=== PATIENT | male | born 1960 | race Caucasian/White ===

== ENCOUNTER 2021-05-31 14:44 | Inpatient (IN) ==
[2021-05-31 15:53] LABS: Basophils # (auto) 0.08 K/uL (0-0.2); Basophils % (auto) 0.7 %; Eosinophils # (auto) 0.14 K/uL (0-0.5); Eosinophils % (auto) 1.3 %; Hemoglobin 10.9 g/dL (14.0-18.0); Immature Granulocytes # (auto) 0.03 K/uL (0.00-0.02); Immature Granulocytes % (auto) 0.3 %; Lymphocytes # (auto) 2.91 K/uL (1.2-3.4); Lymphocytes % (auto) 26.5 %; Mean Corpuscular Hemoglobin 31.5 pg (25-34); Mean Corpuscular Volume 95.4 fL (80-100); Mean Platelet Volume 8.5 fL (7.4-10.4); Monocytes # (auto) 0.66 K/uL (0.11-0.59); Neutrophils # (auto) 7.15 K/uL (1.4-6.5); Neutrophils % (auto) 65.2 %; Platelet Count 268 K/uL (130-400); RDW Coefficient of Variation 16.8 % (11.5-14.5); RDW Standard Deviation 58.5 fL (36.4-46.3); Red Blood Count 3.46 M/uL (4.7-6.1); White Blood Count 10.97 K/uL (4.8-10.8)
[2021-05-31 15:58] LABS: Appearance Urine Clear (Clear); Bacteria Urine Automated Negative (Negative); Bilirubin Urine Negative (Negative); Blood Urine Negative (Negative); Color Urine Yellow; Glucose Urine UA 3+ (Negative); Ketones Urine Negative (Negative); Leukocyte Esterase Urine Trace (Negative); Nitrite Urine Negative (Negative); Protein Urine Negative (Negative); RBC Urine Automated 0-4 /hpf (0-4); Urobilinogen Urine Negative (Negative); pH Urine 5.5 (4.5-7.5)
[2021-05-31 16:12] LABS: Albumin Level 3.7 gm/dl (3.4-5.0); BUN Creatinine Ratio 10.3 (10-20); Calcium 8.3 mg/dl (8.5-10.1); Creatinine Clr Calc Pharmacy 17.2 ml/min; Est GFR (African American) 17.2 ml/min; Est GFR (Non-African American) 14.9 ml/min; Potassium 4.5 mmol/L (3.5-5.1)
[2021-05-31 16:15] LABS: Albumin Globulin Ratio 1.1 (0.9-2); Bilirubin,Total 0.2 mg/dl (0.2-1); Globulin 3.3 gm/dl (2.5-4.0)
[2021-05-31] MEDS ORDERED: SODIUM CHLORIDE 0.9% 1000ML 2,000 ML IV ONE (17:26)
--- NOTE | 2021-05-31 17:30 | Emergency Department Note ---
Impression & Plan Acute renal failure, BPH with obstruction/lower urinary tract symptoms, Urinary tract obstruction, Metabolic acidosis ED Provider Note NAME: MARÍA ELENA VIRGEN AGE: 60 SEX: M : 1960 ARRIVES VIA: Walk-In INFORMANT: Patient ED PROVIDER(S): Oren Laguna DO CHIEF COMPLAINT: abnormal labs HPI: Patient is a 60-year-old gentleman who presents to the ER for urinary symptoms which have been intermittent since this past December. He denies any headache or change in vision. No chest pain or shortness of breath. No nausea, vomiting, or diarrhea. No dysuria, urgency, frequency. He notes he has been drinking maybe less than usual and has been eating less than usual. No excessive diarrhea. He was seen evaluated by his PCP had a creatinine of nearly 4 and was referred in after a CT which showed a large dilated bladder. ROS: See above HPI for pertinent positives & negatives. A total of 10 systems reviewed and were otherwise negative. PAST MEDICAL HISTORY:See Below PAST SURGICAL HISTORY:See Below FAMILY HISTORY:See Below SOCIAL HISTORY:See Below HOME MEDICATIONS:See Below ALLERGIES:See Below VITALS:See Below PHYSICAL EXAMINATION: GENERAL: Sitting up in bed, alert, chronically ill-appearing, disheveled EYE EXAM: normal conjunctiva. PERRL and EOM's grossly intact. OROPHARYNX: no exudate, no erythema, lips, buccal mucosa, and tongue normal and mucous membranes are moist NECK: supple, no nuchal rigidity, no adenopathy, non-tender LUNGS: Clear to auscultation. Normal chest wall mechanics HEART: no murmurs, S1 normal and S2 normal ABDOMEN: abdomen soft, non-tender, normo-active bowel sounds, no masses, no rebound or guarding. UPPER EXTREMITIES: upper extremities are grossly normal. LOWER EXTREMITIES: No pitting edema. NEURO EXAM: Normal sensorium, cranial nerves II-XII grossly intact, normal speech, no gross weakness of arms, no gross weakness of legs. MEDICAL DECISION MAKING: Patient is a 60-year-old male who presents the ER for abnormal CT of the abdomen pelvis showing bilateral hydronephrosis and hydroureter with distended bladder. IV was established blood work was obtained. Labs show no significant leukocytosis and mild anemia at 10. BMP with a creatinine of 4 and a CO2 of 17. Baseline creatinine was 1. Lactate was up at 2.2. LFTs bilirubin and lipase was 650. UA was clean. CT abdomen pelvis report was reviewed by myself. Velasquez was placed. Large amount of urine was removed. Patient was given IV fluids and updated bedside discussed with the hospitalist admitted for CARLA likely secondary to BPH. Triage Nursing notes reviewed. Limited review of prior medical records performed Vital Signs: reviewed and remarkable for tachy Differential diagnosis: Differential diagnoses includes but is not limited to gastritis, peptic ulcer disease, GERD, gallbladder disease, pancreatitis, small bowel obstruction, acute coronary syndrome, pericarditis, ischemic bowel, irritable bowel disease, irritable bowel syndrome, appendicitis, diverticulitis, malignancy, hernia, urinary tract infection, torsion, [/ectopic (if female)], perforation, trauma, infectious. ER treatment provided: See below Diagnostics interpreted by me: ECG: none Cardiac Monitoring: An order was placed for continuous cardiac monitoring. The monitor shows a rate of 101 with sinus rhythm. Laboratory studies: As stated above and show below. Imaging studies: CT reviewed from [facility] which showed large dilated and distended bladder with hydroureter Consultation(s): Discussed with patient hospital service Procedures: none Critical Care: None Past Med/Surg History Medical History (Updated 05/31/21 @ 21:30 by Oern Laguna DO) BPH with obstruction/lower urinary tract symptoms Chronic systolic heart failure DM2 (diabetes mellitus, type 2) HLD (hyperlipidemia) HTN (hypertension) PAD (peripheral artery disease) Prostate cancer screening Suspected malignant neoplasm Tobacco abuse Surgical History (Updated 05/31/21 @ 21:12 by Marj Zimmer PA-C) History of left common carotid artery stent placement Family History Other Diabetes Heart disease Hypertension Social History Smoking Status: Current every day smoker Tobacco Type: Cigarettes packs per day: 0.5; Hx Alcohol Use: Yes Alcohol type: beer and hard liquor Alcohol Intake Frequency: Monthly or Less Hx Substance Use: No Preferred Language: Guatemalan Current Living Situation: Spouse Feels Safe at Home: Yes Allergies Allergies Allergy/AdvReac Type Severity Reaction Status Date / Time codeine AdvReac Intermediate Gastrointestinal Unverified 05/31/21 18:09 Upset Home Meds Home Medications Medication Instructions Recorded Confirmed atorvastatin 80 mg tablet 80 mg PO HS 04/23/19 05/31/21 sildenafil 50 mg tablet 60 mg PO DAILY PRN 04/23/19 05/31/21 clopidogrel 75 mg tablet 75 mg PO QAM 01/17/21 05/31/21 sacubitril 24 mg-valsartan 26 mg 1 tab PO BID 01/17/21 05/31/21 tablet (Entresto) tizanidine 2 mg capsule 2 mg PO Q8H PRN 01/17/21 05/31/21 trazodone 100 mg tablet 300 mg PO HS PRN 01/17/21 05/31/21 alfuzosin 10 mg tablet,extended 10 mg PO QAM 05/31/21 05/31/21 release 24 hr (Uroxatral) bicalutamide 50 mg tablet (Casodex) 50 mg PO QAM 05/31/21 05/31/21 diphenhydramine 25 1 tab PO TID PRN 05/31/21 05/31/21 mg-acetaminophen 500 mg tablet (Tylenol PM Extra Strength) empagliflozin 25 mg tablet 25 mg PO QAM 05/31/21 05/31/21 (Jardiance) metformin 500 mg tablet,extended 1,000 mg PO UD 05/31/21 05/31/21 release 24 hr Results & Data (ED) Vital Signs Vital Signs - 24 hr 05/31/21 15:06 Temperature 37 C Temperature Source Temporal Artery Scan Pulse Rate 105 H Respiratory Rate 18 Respiratory Effort / Characteristics Non-Labored Spontaneous Respiratory Depth Normal Respiratory Pattern Regular Blood Pressure 112/73 Blood Pressure Mean 86 Blood Pressure Position Sitting Pulse Oximetry 100 Oxygen Delivery Method Room Air Sepsis Recent Fever Within 48 Hours No Sepsis New/Unexplained Change in Mental Status N/A Sepsis Action Taken by Nursing No Action Required Laboratory Data Result diagrams: 05/31/21 15:40 05/31/21 15:40 Lab Results 05/31/21 05/31/21 05/31/21 Range/Units 15:30 15:40 15:40 WBC 10.97 H (4.8-10.8) K/uL RBC 3.46 L (4.7-6.1) M/uL Hgb 10.9 L (14.0-18.0) g/dL Hct 33.0 L (42-52) % MCV 95.4 (80-100) fL MCH 31.5 (25-34) pg MCHC 33.0 (32-36) g/dL RDW Std Deviation 58.5 H (36.4-46.3) fL RDW Coeff of Clara 16.8 H (11.5-14.5) % Plt Count 268 (130-400) K/uL MPV 8.5 (7.4-10.4) fL Immature Gran % (Auto) 0.3 % Neut % (Auto) 65.2 % Lymph % (Auto) 26.5 % Titus % (Auto) 6.0 % Eos % (Auto) 1.3 % Baso % (Auto) 0.7 % Neut # (Auto) 7.15 H (1.4-6.5) K/uL Lymph # (Auto) 2.91 (1.2-3.4) K/uL Titus # (Auto) 0.66 H (0.11-0.59) K/uL Eos # (Auto) 0.14 (0-0.5) K/uL Baso # (Auto) 0.08 (0-0.2) K/uL Immature Gran # (Auto) 0.03 H (0.00-0.02) K/uL Sodium 139 (136-145) mmol/L Potassium 4.5 (3.5-5.1) mmol/L Chloride 115 H (98-107) mmol/L Carbon Dioxide 17 L (21-32) mmol/L Anion Gap 8.0 (3-11) BUN 42 H (7-18) mg/dl Creatinine 4.06 H (0.6-1.4) mg/dl Est Cr Clr Drug Dosing 17.2 ml/min Est GFR ( Amer) 17.2 ml/min Est GFR (Non-Af Amer) 14.9 ml/min BUN/Creatinine Ratio 10.3 (10-20) Glucose 111 H (70-99) mg/dl Calcium 8.3 L (8.5-10.1) mg/dl Total Bilirubin 0.2 (0.2-1) mg/dl AST 13 L (15-37) U/L ALT 26 (12-78) U/L Alkaline Phosphatase 94 (45-117) U/L Total Protein 7.0 (6.4-8.2) gm/dl Albumin 3.7 (3.4-5.0) gm/dl Globulin 3.3 (2.5-4.0) gm/dl Albumin/Globulin Ratio 1.1 (0.9-2) Lipase 656 H (73-393) U/L Urine Color Yellow Urine Appearance Clear (Clear) Urine pH 5.5 (4.5-7.5) Ur Specific [place] 1.010 (1.000-1.030) Urine Protein Negative (Negative) Urine Glucose (UA) 3+ H (Negative) Urine Ketones Negative (Negative) Urine Blood Negative (Negative) Urine Nitrite Negative (Negative) Urine Bilirubin Negative (Negative) Urine Urobilinogen Negative (Negative) Ur Leukocyte Esterase Trace H (Negative) Urine WBC (Auto) 5-10 H (0-5) /hpf Urine RBC (Auto) 0-4 (0-4) /hpf U Hyaline Cast (Auto) 1-5 (0-5) /lpf U Epithel Cells (Auto) 5-10 H (0-5) /lpf Urine Bacteria (Auto) Negative (Negative) COVID-19 Eval Order SARS-CoV-2 (PCR) (Negative) 05/31/21 05/31/21 Range/Units 17:40 17:40 WBC (4.8-10.8) K/uL RBC (4.7-6.1) M/uL Hgb (14.0-18.0) g/dL Hct (42-52) % MCV (80-100) fL MCH (25-34) pg MCHC (32-36) g/dL RDW Std Deviation (36.4-46.3) fL RDW Coeff of Clara (11.5-14.5) % Plt Count (130-400) K/uL MPV (7.4-10.4) fL Immature Gran % (Auto) % Neut % (Auto) % Lymph % (Auto) % [place]itus % (Auto) % Eos % (Auto) % Baso % (Auto) % Neut # (Auto) (1.4-6.5) K/uL Lymph # (Auto) (1.2-3.4) K/uL Titus # (Auto) (0.11-0.59) K/uL Eos # (Auto) (0-0.5) K/uL Baso # (Auto) (0-0.2) K/uL Immature Gran # (Auto) (0.00-0.02) K/uL Sodium (136-145) mmol/L Potassium (3.5-5.1) mmol/L Chloride (98-107) mmol/L Carbon Dioxide (21-32) mmol/L Anion Gap (3-11) BUN (7-18) mg/dl Creatinine (0.6-1.4) mg/dl Est Cr Clr Drug Dosing ml/min Est GFR ( Amer) ml/min Est GFR (Non-Af Amer) ml/min BUN/Creatinine Ratio (10-20) Glucose (70-99) mg/dl Calcium (8.5-10.1) mg/dl Total Bilirubin (0.2-1) mg/dl AST (15-37) U/L ALT (12-78) U/L Alkaline Phosphatase (45-117) U/L Total Protein (6.4-8.2) gm/dl Albumin (3.4-5.0) gm/dl Globulin (2.5-4.0) gm/dl Albumin/Globulin Ratio (0.9-2) Lipase (73-393) U/L Urine Color Urine Appearance (Clear) Urine pH (4.5-7.5) Ur Specific [place] (1.000-1.030) Urine Protein (Negative) Urine Glucose (UA) (Negative) Urine Ketones (Negative) Urine Blood (Negative) Urine Nitrite (Negative) Urine Bilirubin (Negative) Urine Urobilinogen (Negative) Ur Leukocyte Esterase (Negative) Urine WBC (Auto) (0-5) /hpf Urine RBC (Auto) (0-4) /hpf U Hyaline Cast (Auto) (0-5) /lpf U Epithel Cells (Auto) (0-5) /lpf Urine Bacteria (Auto) (Negative) COVID-19 Eval Order Covid19 at [facility] SARS-CoV-2 (PCR) NEGATIVE (Negative) Administered Medications Heparin Sodium (Porcine) (Heparin Sod 5,000 Unit/0.5 Ml Vial) 5,000 units SQ Q8 GENIA Stop: 06/30/21 21:59 Last Admin: 05/31/21 21:26 Dose: Not Given Documented by: [id number] Insulin Aspart (Insulin Aspart 100 Units/Ml 3 Ml Pen) 0 units SC ACHS GENIA Stop: 06/30/21 20:59 Last Admin: 05/31/21 21:26 Dose: Not Given Documented by: [id number] Morphine Sulfate (Morphine Sulfate 4 Mg/Ml 1 Ml Carp\Vial) 3 mg IV Q4H PRN PRN Reason: Pain Stop: 06/14/21 20:47 Last Admin: 05/31/21 21:26 Dose: 3 mg Documented by: [id number] Discontinued Medications Sodium Chloride (Nss 1000ml) 2,000 mls @ 999 mls/hr IV .Q2H1M ONE Stop: 05/31/21 19:26 Last Infusion: 05/31/21 19:33 Dose: 0 mls/hr Documented by: [id number] Admin: 05/31/21 18:26 Dose: 999 mls/hr Documented by: [id number] Morphine Sulfate (Morphine Sulfate 4 Mg/Ml 1 Ml Carp\Vial) 4 mg IV NOW STA Stop: 05/31/21 18:26 Last Admin: 05/31/21 18:35 Dose: 4 mg Documented by: [id number] Ondansetron HCl (Ondansetron Inj 2 Mg/Ml 2 Ml Vial) 4 mg IV NOW STA Stop: 05/31/21 18:26 Last Admin: 05/31/21 18:36 Dose: 4 mg Documented by: [id number] Discharge Plan Visit Data Chief Complaint: Abnormal Labs/Diagnostic Testing Stated Complaint: ABNORMAL LABS, DR REFERRED ED Provider: Oren Laguna Discharge Problem: Acute renal failure, BPH with obstruction/lower urinary tract symptoms, Urinary tract obstruction, Metabolic acidosis Patient Disposition: Admitted As Inpatient Discharge Instructions Interventions: ED Discharge Assessment Last Done: 05/31/21 20:33 Discharge Problem: Acute renal failure Qualifiers: Acute renal failure type: unspecified Qualified Code(s): N17.9 - Acute kidney failure, unspecified
--- NOTE | 2021-05-31 17:58 | History & Physical Report ---
Date of Service May 31, 2021 Assessment & Plan (1) Suspected malignant neoplasm: (2) Urinary tract obstruction: (3) Acute renal failure: Plan: This is a 60 yo M with PHM of Type 2 diabetes, PAD, L carotid stent placement at [facility] December 2020, chronic systolic heart failure, CKD 3, hypertension, BPH, tobacco use, history of CVA, insomnia and other medical problems listed below who presents with abnormal lab work and imaging from PCP. Recently established with Dr. Novak of urology at [facility] for elevated PSA MRI from this month revealed extensive tumor throughout the prostate gland with findings worrisome for extraprostatic extension to involve the bladder, anterior pelvic wall and seminal vesicles, as well as skeletal metastases Started on bicalutamide and is due for biopsy in July when he is okayed by vascular surgery to come off of plavix for procedure CT abd/pelvis wo con from [facility] earlier today with urinary bladder very distended nearly to the level of the umbilicus, with at least moderate bilateral hydroureteronephrosis, right worse than left Rain catheter placed in ED - draining mckeon red urine UA without evidence of infection Cr elevated at 4 in setting of obstruction (baseline ~ 1) Repeat BMP this evening Urology consulted Consider nephro consult if Cr does not improve with rain in place (4) Elevated lipase: Plan: Lipase 656 Chronic pancreatitis visualized on outpatient CT a/p No N/V or abdominal pain, monitor (5) Elevated lactic acid level: Plan: Lactate 2.2 in setting of urinary obstruction, now with rain in place, has received IV fluids Metformin may also be contributing Repeat pending Mild leukocytosis but UA without abnormality, no evidence of infection on CT abd/pelvis, CXR pending (6) Metabolic acidosis: Plan: In setting of acute renal failure, elevated lactate Expect improvement with rain catheter in place, IV fluids Bicarb 17 Monitor daily BMP (7) DM2 (diabetes mellitus, type 2): Plan: A1c 6.7 in March Hold home agents SSI while in-patient BSG AC HS (8) Chronic systolic heart failure: Plan: History of ischemic CM with EF 30%, improved to 43% on November 2020 echo Not on home diuretics Monitor volume status (9) HTN (hypertension): Plan: Reported low BP lately, instructed to hold metoprolol for now BP elevated in setting of pain - optimize pain control Resume metoprolol with hold parameters (10) HLD (hyperlipidemia): Plan: Continue statin (11) Tobacco abuse: Plan: Cessation recommended DVT Ppx: Holding in setting of hematuria - reassess H&H in AM Code status: FULL PCP: Catrina Dispo: Admitted to [facility] Patient seen in collaboration with Dr. Chong. Please see addendum. History of Present Illness Chief Complaint: Bladder fullness, abnormal CAT scan outpatient setting Primary Care Provider: Dru Fritz MD This is a 60 yo M with PHM of Type 2 diabetes, PAD, L carotid stent placement at [facility] December 2020, chronic systolic heart failure, CKD 3, hypertension, BPH, tobacco use, history of CVA, insomnia and other medical problems listed below who presents with abnormal lab work and imaging from PCP. Patient has had ongoing urinary symptoms since December. Established with Dr. Novak of urology at [facility] for elevated PSA and MRI from this month revealed extensive tumor throughout the prostate gland with findings worrisome for extraprostatic extension to involve the bladder, anterior pelvic wall and seminal vesicles, as well as skeletal metastases. Started on bicalutamide and is due for biopsy in July when he is okayed by vascular surgery to come off of plavix for procedure. Had L carotid stent placed in December 2020. Endorses weight loss, poor appetite, urinary incontinence. Denies fever, chills, lighthe adedness, headache, chest pain, SOB, nausea, vomiting, abdominal pain, dysuria, diarrhea or constipation. Allergies Allergy/AdvReac Type Severity Reaction Status Date / Time codeine AdvReac Intermediate Gastrointestinal Unverified 05/31/21 18:09 Upset Home Medications Medication Instructions Recorded Confirmed Type atorvastatin 80 mg tablet 80 mg PO HS 04/23/19 05/31/21 History sildenafil 50 mg tablet 60 mg PO DAILY PRN 04/23/19 05/31/21 History clopidogrel 75 mg tablet 75 mg PO QAM 01/17/21 05/31/21 History sacubitril 24 mg-valsartan 26 mg 1 tab PO BID 01/17/21 05/31/21 History tablet (Entresto) tizanidine 2 mg capsule 2 mg PO Q8H PRN 01/17/21 05/31/21 History trazodone 100 mg tablet 300 mg PO HS PRN 01/17/21 05/31/21 History alfuzosin 10 mg tablet,extended 10 mg PO QAM 05/31/21 05/31/21 History release 24 hr (Uroxatral) bicalutamide 50 mg tablet (Casodex) 50 mg PO QAM 05/31/21 05/31/21 History diphenhydramine 25 1 tab PO TID PRN 05/31/21 05/31/21 History mg-acetaminophen 500 mg tablet (Tylenol PM Extra Strength) empagliflozin 25 mg tablet 25 mg PO QAM 05/31/21 05/31/21 History (Jardiance) metformin 500 mg tablet,extended 1,000 mg PO UD 05/31/21 05/31/21 History release 24 hr metoprolol succinate 25 mg 25 mg PO DAILY 05/31/21 05/31/21 History tablet,extended release 24 hr Past Med/Surg History Medical History BPH with obstruction/lower urinary tract symptoms Chronic systolic heart failure DM2 (diabetes mellitus, type 2) HLD (hyperlipidemia) HTN (hypertension) PAD (peripheral artery disease) Prostate cancer screening Suspected malignant neoplasm Tobacco abuse Surgical History History of left common carotid artery stent placement Family History Other Diabetes Heart disease Hypertension Social History Smoking Status: Current every day smoker Tobacco Type: Cigarettes packs per day: 0.5; Cigarettes Per Day: 8; Do You Dip or Chew Tobacco: No; Tobacco Cessation Education Requested by Patient: No Hx Alcohol Use: Yes Alcohol type: beer and hard liquor Alcohol Intake Frequency: Monthly or Less Hx Substance Use: No Preferred Language: Romansh Communication Ability: Effective Messenger Office Required: No Beliefs That Will Affect Care: None Current Living Situation: Spouse Other Information That Helps Us Care for You: No Feels Safe at Home: Yes Safety Concerns: Feels Safe At This Time Review of Systems Review of Systems: At least ten systems reviewed and negative except as noted in the HPI. Physical Exam Physical Exam: Please see Dr. Chong's addendum for physical exam. Results & Data Results & Data ([facility]) Vital Signs (Past 12 Hours) Vital Signs Temp Pulse Resp BP Pulse Ox 05/31/21 15:06 37 C 105 H 18 112/73 100 Laboratory Results Short CBC 05/31/21 Range/Units 15:40 WBC 10.97 H (4.8-10.8) K/uL Hgb 10.9 L (14.0-18.0) g/dL Hct 33.0 L (42-52) % Plt Count 268 (130-400) K/uL BMP 05/31/21 15:40 Sodium 139 Potassium 4.5 Chloride 115 H Carbon Dioxide 17 L BUN 42 H Creatinine 4.06 H Glucose 111 H Calcium 8.3 L Liver Function 05/31/21 Range/Units 15:40 Total Bilirubin 0.2 (0.2-1) mg/dl AST 13 L (15-37) U/L ALT 26 (12-78) U/L Alkaline Phosphatase 94 (45-117) U/L Albumin 3.7 (3.4-5.0) gm/dl Urine 05/31/21 05/31/21 Range/Units 15:30 Unknown Urine Color Yellow Yellow Urine Appearance Clear Clear (Clear) Urine pH 5.5 5.5 (4.5-7.5) Ur Specific [place] 1.010 1.010 (1.000-1.030) Urine Protein Negative Negative (Negative) Urine Glucose (UA) 3+ H 2+ H (Negative) Code Status & VTE Plan VTE Prophylaxis Plan VTE Prophylaxis will be ordered: Yes Supervising Physician Co-Signing Physician Notes I saw this patient with the physician administrative assistant coordinator, I participated in the history, physical, review of systems, and physical exam. I reviewed the medications with the patient and the physician administrative assistant coordinator and helped reconcile the medications. I helped take a detailed family and social history as well. I formulated the assessment and plan personally with the physician administrative assistant coordinator and went over it with the patient. Physical Exam Gen-AAO x 3, NAD, Afebrile, +BRB in rain Head-NCAT, EOMI, PERRLA, Anicteric Sclera, No Posterior Pharyngeal Erythema Neck-Supple, No JVD, No Thyromegaly, No Masses, No LAD, No Bruits Lungs-Clear to Auscultation Bilaterally, No Rales, No Rhonchi, No Wheezing, No Crepitus Chest-No S4, +S1, +S2, No S3, No Murmurs, No Rubs, No Gallops, No Ectopy Abdomen-Soft, Bowel Sounds Present, Tender, Non Distended, No Hepatomegaly, No Splenomegaly, No Palpable Masses, No Rebound, No Rigidity, No Guarding Musculoskeletal-Full Range of Motion Bilaterally, No CVAT Extremities-No Cyanosis, No Clubbing, No Edema Nuero-Cranial Nerves II-XII grossly intact, Motor WNL, DTRs WNL, Strength WNL, Non Focal Psych-Normal Mood
[2021-05-31] MEDS ORDERED: MoRPHine SULFATE 4 MG/ML 1 ML CARP\\VIAL IV STA (18:25)
[2021-05-31] MEDS ORDERED: ONDANSETRON INJ 2 MG/ML 2 ML VIAL IV STA (18:25)
[2021-05-31] MEDS ORDERED: ACETAMINOPHEN 500 MG TAB PO PRN (19:37)
[2021-05-31 20:02] LABS: Appearance Urine Clear (Clear); Bacteria Urine Automated Negative (Negative); Bilirubin Urine Negative (Negative); Blood Urine Trace (Negative); Color Urine Yellow; Glucose Urine UA 2+ (Negative); Ketones Urine Negative (Negative); Leukocyte Esterase Urine Trace (Negative); Nitrite Urine Negative (Negative); Protein Urine Negative (Negative); RBC Urine Automated 0-4 /hpf (0-4); Urobilinogen Urine Negative (Negative); pH Urine 5.5 (4.5-7.5)
[2021-05-31] MEDS ORDERED: ONDANSETRON INJ 2 MG/ML 2 ML VIAL IV PRN (20:48)
[2021-05-31] MEDS ORDERED: DEXTROSE 50% 50 ML SYRINGE IV PRN (20:48)
[2021-05-31] MEDS ORDERED: CARBOHYDRATES FOR HYPOGLYCEMIA PO PRN (20:48)
[2021-05-31] MEDS ORDERED: POLYETHYLENE (MIRALAX) 17 GM PACK PO PRN (20:48)
[2021-05-31] MEDS ORDERED: GLUCOSE 10 TABS/TUBE PO PRN (20:48)
[2021-05-31] MEDS ORDERED: GLUCAGON FOR INJ 1 MG VIAL SQ PRN (20:48)
[2021-05-31] MEDS ORDERED: ACETAMINOPHEN 325 MG TAB PO PRN (20:48)
[2021-05-31] MEDS ORDERED: GLUCOSE 40% GEL 15 GM TUBE PO PRN (20:48)
[2021-05-31] MEDS: INSULIN ASPART 100 UNITS/ML 3 ML PEN SC SCH (21:26)
[2021-05-31] MEDS: MoRPHine SULFATE 4 MG/ML 1 ML CARP\\VIAL IV PRN (21:26)
--- NOTE | 2021-05-31 21:59 | Urology Consultation ---
Date of Consultation May 31, 2021 Assessment & Plan (1) Urinary tract obstruction: Patient has been admitted on the hospitalist service: Based on patient's history I suspect the patient's elevated creatinine may be due to bladder outlet obstruction from an enlarged prostate. His hematuria may be due to traumatic Velasquez insertion as well as a venous injury from a distended bladder in the setting of Plavix use. Recommend maintaining Velasquez catheter. As long as Velasquez remains patent and draining no additional intervention such as continuous bladder irrigation will be required Recommended following serial CBCs to ensure there is not a precipitous drop in his H&H Recommend following serial chemistries to ensure he does not develop hyperkalemia or other electrolyte abnormalities and to monitor his renal function Recommend hydrating the patient with IV fluids Discussed with the patient that it may be beneficial for him to just maintain the Velasquez catheter to be discharged home once his renal function improves and he can follow-up with his regular urologist as an outpatient History of Present Illness Reason for Consultation: 1. Urinary retention 2. enlarged bladder 3. Hematuria Attending Physician: Rob Chong DO History of Present Illness This is a 60-year-old male with a suspected history of prostate cancer that was referred to [facility] emergency department secondary to abnormal labs. Patient notes that he has an enlarged prostate and previous scans showed findings concerning for prostate cancer. Patient says he was scheduled to have a CT scan of his abdomen and pelvis today to further evaluate this. In anticipation for getting a CT scan he had to have labs drawn where he was noted to have an abnormal creatinine of approximately 4. To the best of patient's knowledge he feels as though his creatinine usually runs normal. He does note that he did have an episode of acute kidney injury in the past secondary to poor oral intake. Patient notes that he has had urinary difficulties for several months dating back to at least December of this year. The patient notes that he typically sits down to urinate and he notes in order to initiate urination he has to push on his abdomen. He does note that the stream of his urine is weak. He also notes some urinary hesitancy. He does feel as though he empties his bladder completely but does add that shortly after urinating he feels as though he has to go again in a short time. He also notes nocturia requiring him to urinate several times during the night and he often notes urinary incontinence at night requiring him to wear adult briefs. He was seen in the past by Dr. Henderson [facility] urology for the symptoms. His most recent visit was in December of this year patient was started on Flomax as well as Myrbetriq. Patient notes that he has since changed his urologist to Dr. Isaías Novak who is now with [facility] urology. During his establishment with Dr. Novak the patient was noted to have an elevated PSA and he ultimately underwent an MRI earlier this month that revealed reported extensive tumor burden throughout the prostate glands with findings concerning for spread into the bladder, anterior pelvic wall, seminal vesicles, as well as adjacent skeletal structures. The patient was started on bicalutamide for these findings. Tentative plans were made for patient have a prostate biopsy however the patient has in the interim suffered a stroke for which he underwent a carotid stent placement in December. Because of this carotid stent the patient takes Plavix and he cannot discontinue this therapy for 6 months which would lead to July. Patient does note that plans are tentatively in place for him to have a prostate biopsy in July of this year. Should be noted that all the patient's imaging and labs were done to the [facility] system which I did not have access to. Upon presentation to the emergency department [facility] he did have a CBC where his white blood cell count was noted to be 10.9. His hemoglobin and hematocrit were 10.9 and 33.0 and his platelet count was within normal range. Chemistry profile did show a sodium and potassium both which were normal. His BUN and creatinine were both elevated at 42 and 4.0. It is noteworthy mention that the patient did have a PSA level from November 2020 which was elevated at 11.7. A chest x-ray performed in the emergency department today did not reveal any evidence of pneumonia, CHF, or pleural effusions. Since arrival to the emergency department the patient has had a Velasquez catheter placed. Unfortunately accurate I's and O's were not recorded but the patient does note that he feels approximately 1 L of clear urine was initially drained and he has subsequently has had mckeon colored hematuria. At the time of interview he was in no distress resting comfortably in bed. Allergies Allergy/AdvReac Type Severity Reaction Status Date / Time codeine AdvReac Intermediate Gastrointestinal Unverified 05/31/21 18:09 Upset Home Medications Medication Instructions Recorded Confirmed Type atorvastatin 80 mg tablet 80 mg PO HS 04/23/19 05/31/21 History sildenafil 50 mg tablet 60 mg PO DAILY PRN 04/23/19 05/31/21 History clopidogrel 75 mg tablet 75 mg PO QAM 01/17/21 05/31/21 History sacubitril 24 mg-valsartan 26 mg 1 tab PO BID 01/17/21 05/31/21 History tablet (Entresto) tizanidine 2 mg capsule 2 mg PO Q8H PRN 01/17/21 05/31/21 History trazodone 100 mg tablet 300 mg PO HS PRN 01/17/21 05/31/21 History alfuzosin 10 mg tablet,extended 10 mg PO QAM 05/31/21 05/31/21 History release 24 hr (Uroxatral) bicalutamide 50 mg tablet (Casodex) 50 mg PO QAM 05/31/21 05/31/21 History diphenhydramine 25 1 tab PO TID PRN 05/31/21 05/31/21 History mg-acetaminophen 500 mg tablet (Tylenol PM Extra Strength) empagliflozin 25 mg tablet 25 mg PO QAM 05/31/21 05/31/21 History (Jardiance) metformin 500 mg tablet,extended 1,000 mg PO UD 05/31/21 05/31/21 History release 24 hr Patient History Medical History BPH with obstruction/lower urinary tract symptoms Chronic systolic heart failure DM2 (diabetes mellitus, type 2) HLD (hyperlipidemia) HTN (hypertension) PAD (peripheral artery disease) Prostate cancer screening Suspected malignant neoplasm Tobacco abuse Surgical History History of left common carotid artery stent placement Family History Other Diabetes Heart disease Hypertension Social History Smoking Status: Current every day smoker Tobacco Type: Cigarettes packs per day: 0.5; Hx Alcohol Use: Yes Alcohol type: beer and hard liquor Alcohol Intake Frequency: Monthly or Less Hx Substance Use: No Preferred Language: Jamaican Current Living Situation: Spouse Feels Safe at Home: Yes Review of Systems Constitutional: no fever and no chills Eyes: no diplopia Ear, Nose, Mouth, Throat: no ear pain and no sore throat Respiratory: no cough and no dyspnea Cardiovascular: no chest pain Gastrointestinal: no abdominal pain, no nausea and no vomiting Genitourinary: + as per Subjective / HPI Musculoskeletal: no back pain Integumentary: no rash Neurologic: no generalized weakness Physical Exam Constitutional: well developed and well nourished; no acute distress Eyes: no conjunctival abnormality ENMT: Ears: no hearing impairment Mouth: no oropharynx abnormality Neck: trachea midline Respiratory: normal respiratory effort; no respiratory distress and no labored breathing Cardiovascular: Rate/Rhythm: regular rate and regular rhythm Gastrointestinal (Abdomen): Soft and nontender Musculoskeletal: No gross orthopedic abnormalities, no calf tenderness Skin: no rashes Neurologic: moves all extremities Psychiatric: A+Ox3, euthymic affect Genitourinary: Velasquez catheter was in place and draining red-colored urine Results & Data ([facility]) Vital Signs (Past 12 Hours) Vital Signs Temp Pulse Pulse Resp BP BP Pulse Ox 05/31/21 19:26 112 H 18 182/104 H 100 05/31/21 18:39 122 H 18 98 05/31/21 15:06 37 C 105 H 18 112/73 100 PG Care Time/CCT Total # of Minutes Spent Total Time Spent with Patient: Total time spent is greater than 50% in coordination of care (as documented) at patient's floor/unit and/or counseling patient: Coding Level of Care Code 00800 Inpt Consult Level 5 Diagnoses Urinary tract obstruction N13.9
[2021-05-31] MEDS ORDERED: HEPARIN SOD 5,000 UNIT/0.5 ML VIAL SQ SCH (22:00)
[2021-05-31 22:08] LABS: BUN Creatinine Ratio 10.7 (10-20); Calcium 8.1 mg/dl (8.5-10.1); Est GFR (African American) 18.1 ml/min; Est GFR (Non-African American) 15.7 ml/min; Potassium 4.3 mmol/L (3.5-5.1)
[2021-05-31] MEDS ORDERED: SODIUM CHLORIDE 0.9% 1000ML 1,000 ML IV SCH (22:30)
[2021-05-31] MEDS ORDERED: tiZANidine HCL 4 MG TABLET PO PRN (22:33)
[2021-05-31 22:49] LABS: Hematocrit (blood only) 30.9 % (42-52); Hemoglobin 10.2 g/dL (14.0-18.0)
[2021-06-01] MEDS: ACETAMINOPHEN 500 MG TAB PO PRN ×2 (00:11→22:03)
[2021-06-01] MEDS: traZODone HCL 100 MG TAB PO PRN ×2 (00:11→22:03)
[2021-06-01] MEDS ORDERED: traMADol HCL 50 MG TABLET PO PRN (01:57)
[2021-06-01] MEDS ORDERED: traMADol HCL 50 MG TABLET PO STA (01:57)
[2021-06-01] MEDS ORDERED: ALBUMIN 25% 12.5 GM/50 ML VIAL IV SCH ×2 (02:00→07:00)
[2021-06-01] MEDS ORDERED: LACTATED RINGER'S 1,000 ML IV ONE ×2 (02:05→07:00)
[2021-06-01 05:50] LABS: Hematocrit (blood only) 29.9 % (42-52); Hemoglobin 9.8 g/dL (14.0-18.0); Mean Corpuscular Hemoglobin 31.7 pg (25-34); Mean Corpuscular Hgb Conc 32.8 g/dL (32-36); Mean Corpuscular Volume 96.8 fL (80-100); Mean Platelet Volume 8.2 fL (7.4-10.4); Platelet Count 258 K/uL (130-400); RDW Coefficient of Variation 16.9 % (11.5-14.5); RDW Standard Deviation 60.2 fL (36.4-46.3); Red Blood Count 3.09 M/uL (4.7-6.1); White Blood Count 12.71 K/uL (4.8-10.8)
[2021-06-01] MEDS: METOPROLOL SUCC 25MG EXT REL TAB PO SCH ×2 (06:00→06:22)
[2021-06-01] MEDS: MoRPHine SULFATE 4 MG/ML 1 ML CARP\\VIAL IV PRN ×4 (06:00→20:33)
[2021-06-01 06:14] LABS: BUN Creatinine Ratio 10.4 (10-20); Calcium 8.2 mg/dl (8.5-10.1); Creatinine Clr Calc Pharmacy 17.9 ml/min; Est GFR (African American) 18.9 ml/min; Est GFR (Non-African American) 16.3 ml/min; Potassium 4.5 mmol/L (3.5-5.1)
--- NOTE | 2021-06-01 07:19 | XRay Report ---
XR chest 1V portable CLINICAL HISTORY: admission COMPARISON STUDY: May 15, 2016 FINDINGS: No pneumothorax. No pleural effusion. No large infiltrates or consolidative lesions are seen. Focal ill-defined opacity seen within left lower lung region. There is questionable lucency within the epigastric region which represent superimposed gas-filled l oops of bowel and gas within the stomach and was better seen during CT of abdomen and pelvis performe d on May 31, 2021 at 2:01 PM Cardiomediastinal silhouette is within normal limits in size. No significant pulmonary vascular congestion.. Osseous structures: Mild degenerative changes of the spine. IMPRESSION: 1. Focal ill-defined opacity within the left lower lung region might represent nipple shadow versus intrapulmonary lesion. Similar appearance was seen on prior study in 2016. Further evaluation with PA and lateral chest radiograph with nipple markers on nonemergency basis is suggested. ACT 112: Negative or not required by law. The above report was generated using voice recognition software. It may contain grammatical, syntax o r spelling errors. Electronically signed by: Leyla Bustamante DO 06/01/2021 7:18 AM
--- NOTE | 2021-06-01 08:30 | Urology Progress Note ---
Date of Service June 01, 2021 Assessment & Plan (1) Urinary tract obstruction: (2) Acute urinary retention: Plan: 60 year-old male patient, with multiple comorbidities, admitted with acute renal failure likely in the setting of dehydration and urinary obstruction. -Plan of care reviewed with Dr. Epps. -Patient afebrile. -Labs reviewed - white count 12.71, creatinine remains elevated however improved at 3.76 (4.06 on admission). -Urinalysis not suspicious for infection. -Gross hematuria likely secondary to catheter trauma/Plavix use. -May hand-irrigate rain catheter PRN retention or suprapubic pain. -Continue with supportive care, lab monitoring. -Regarding suspected prostate cancer, he does have upcoming bone scan and follow-up with oncology scheduled. Plans for prostate biopsy in July with Dr. Isaías Novak, [facility]. -Recommend maintaining rain catheter for at least 7-10 days depending on clinical progress. Can reassess once discharge and seen by [facility]. -Expected clinical course reviewed with patient, all questions answered. -Urology will sign off at this time. Please reconsult us with any additional questions/concerns or acute changes in patient's clinical status. Admission and Anticipated Discharge Date Admission Date: May 31, 2021 Subjective Patient examined at bedside this AM. He is awake, alert, non-toxic in appearance. Currently denies flank pain. Does note generalized discomfort to lower abdomen which is improving. Denies fevers or chills. Denies nausea or vomiting. Rain catheter intact, draining mckeon colored urine - adequate output overnight. States there was difficulty with catheter placement. States he did not experience hematuria until after catheter was placed. Regarding suspected prostate cancer, he does have upcoming bone scan 06/13/21. He also has appointment with [facility], Dr. Queen, 06/09/21. Per patient, prostate biopsy is planned with Dr. Isaías Novak on 07/06/21. Chart review: Afebrile Wbc 12.71 Hgb 9.8 (previously 10.2) Creatinine 3.76 (4.06 on admission) Denies additional urologic concerns today. Review of Systems Constitutional: as per Subjective / HPI; no fever and no chills Gastrointestinal: as per Subjective / HPI; no nausea and no vomiting Genitourinary: + as per Subjective / HPI Physical Exam Constitutional: well developed and well nourished; no acute distress and not ill appearing Respiratory: normal respiratory effort and able to speak in complete sentences; no respiratory distress and no audible wheezes Gastrointestinal (Abdomen): Inspection/Auscultation: abdomen normal to inspection; abdomen not distended Percussion/Palpation: abdomen soft; abdomen nontender and no guarding Psychiatric: Orientation: alert, oriented x 3 and cooperative Affect: euthymic affect Genitourinary: no CVA tenderness Rain catheter intact, patent, draining mckeon colored urine. Results & Data ([facility]) Vital Signs (Past 12 Hours) Vital Signs Temp Pulse Pulse Resp BP BP Pulse Ox 06/01/21 08:08 91 H 06/01/21 07:48 36.6 C 84 18 121/75 99 06/01/21 06:23 122/74 06/01/21 03:23 36.1 C L 118 H 20 179/87 H 99 06/01/21 00:00 120 H 05/31/21 22:39 36.4 C L 120 H 18 124/84 99 05/31/21 20:55 36.8 C 120 H 22 184/115 H 100 05/31/21 20:47 36.4 C L 146 H 18 157/109 H 100 PG Care Time/CCT Total # of Minutes Spent Total Time Spent with Patient: Total time spent is greater than 50% in coordination of care (as documented) at patient's floor/unit and/or counseling patient: Coding Level of Care Code 24211 Subseq Hosp Care Lvl 2 Diagnoses Urinary tract obstruction N13.9 Acute urinary retention R33.8
[2021-06-01] MEDS ORDERED: METOPROLOL SUCC 25MG EXT REL TAB PO SCH (09:00)
[2021-06-01] MEDS ORDERED: CLOPIDOGREL BISULFATE 75 MG TAB PO SCH (09:00)
[2021-06-01] MEDS ORDERED: SACUBITRIL-VALSARTAN 24-26 MG TAB PO SCH (09:00)
[2021-06-01] MEDS: BICALUTAMIDE 50 MG TAB PO SCH (09:02)
[2021-06-01] MEDS: ALFUZOSIN HCL 10 MG TAB PO SCH (09:02)
[2021-06-01] MEDS: INSULIN ASPART 100 UNITS/ML 3 ML PEN SC SCH ×4 (09:03→20:37)
[2021-06-01 14:14] LABS: Hematocrit (blood only) 26.5 % (42-52); Hemoglobin 8.8 g/dL (14.0-18.0)
--- NOTE | 2021-06-01 14:15 | Hospitalist Progress Note ---
Date of Service June 01, 2021 Assessment & Plan (1) Suspected malignant neoplasm: (2) Urinary tract obstruction: (3) Acute renal failure: Plan: per admitting service notes This is a 60 yo M with PHM of Type 2 diabetes, PAD, L carotid stent placement at [facility] December 2020, chronic systolic heart failure, CKD 3, hypertension, BPH, tobacco use, history of CVA, insomnia and other medical problems listed below who presents with abnormal lab work and imaging from PCP. Prostate Tumor Obstructive Uropathy Acute Renal failure, with Metabolic Acidosis Recently established with Dr. Novak of urology at [facility] for elevated PSA MRI from this month revealed extensive tumor throughout the prostate gland with findings worrisome for extraprostatic extension to involve the bladder, anterior pelvic wall and seminal vesicles, as well as skeletal metastases Started on bicalutamide and is due for biopsy in July when he is okayed by vascular surgery to come off of plavix for procedure CT abd/pelvis wo con from [facility] earlier today with urinary bladder very distended nearly to the level of the umbilicus, with at least moderate bilateral hydroureteronephrosis, right worse than left Rain catheter placed in ED - draining mckeon red urine UA without evidence of infection Cr elevated at 4 in setting of obstruction (baseline ~ 1) 06/01 still with blood tinged urine output in Rain hg 10.9 to 9.8 repeat Hg at 2pm Crea 4 to 3.7 HCO3 16 Nephro consulted continue LR (4) Elevated lipase: Plan: Lipase 656 Chronic pancreatitis visualized on outpatient CT a/p No N/V or abdominal pain, monitor (5) Elevated lactic acid level: Plan: Lactate 2.2 in setting of urinary obstruction, now with rain in place, has received IV fluids Metformin may also be contributing normalized -- no signs of infection (6) Metabolic acidosis: Plan: management per above (7) DM2 (diabetes mellitus, type 2): Plan: A1c 6.7 in March Hold home agents SSI while in-patient BSG AC HS (8) Chronic systolic heart failure: Plan: History of ischemic CM with EF 30%, improved to 43% on November 2020 echo Not on home diuretics -- euvolemic monitor (9) HTN (hypertension): Plan: Reported low BP lately, instructed to hold metoprolol for now BP elevated in setting of pain - optimize pain control metoprolol with hold parameters (10) HLD (hyperlipidemia): Plan: Continue statin (11) Tobacco abuse: Plan: Cessation recommended DVT Ppx: SCDs for now in setting of hematuria Code status: FULL PCP: [facility]rina Dispo: anticipate d/c home when medically stable Admission and Anticipated Discharge Date Admission Date: May 31, 2021 Subjective ff up for obstructive uropathy, prostate tumor, etc seen resting in bed, comfortable states he feels ok overall denies pain no chest pain, dyspnea, palpitations, dizziness no nausea, vomiting no other symptoms Review of Systems Review of Systems: all noted and negative except for above Physical Exam Physical Exam: General- oriented x 3, not in distress, speaks in sentences with no effort or accessory muscle use Head- atraumatic Eyes- PERRL, EOMI, anicteric ENT- oropharynx clear Neck- supple, no JVD, no adenopathy, no thyromegaly; carotids +2/2, no bruits appreciated Lungs- clear to auscultation bilaterally, no rales/wheezes Heart- normal rate, regular rhythm; no murmur, no gallop, no rub appreciated Abdomen- normal bowel sounds, nondistended, soft, nontender, no masses or hepatosplenomegaly Extremities- no pretibial edema, no calf tenderness; peripheral pulses intact rain cath in place- urine is blood tinged Neuro- alert, oriented x 3; CN 2-12 grossly intact; motor 5/5 bilaterally;sensation 100% on all extremities; no other gross focal neurologic deficits Skin- warm & dry Results & Data Results & Data ([facility]) Vital Signs (Past 12 Hours) Vital Signs Temp Pulse Pulse Resp BP Pulse Ox 06/01/21 11:39 36.8 C 90 18 117/75 100 06/01/21 08:08 91 H 06/01/21 07:48 36.6 C 84 18 121/75 99 06/01/21 06:23 122/74 06/01/21 03:23 36.1 C L 118 H 20 179/87 H 99 all noted and reviewed including below (1) Acute renal failure Acute renal failure type: unspecified Qualified Code(s): N17.9 - Acute kidney failure, unspecified
--- NOTE | 2021-06-01 18:42 | Nephrology Consultation ---
Date of Consultation June 01, 2021 Assessment & Plan (1) Acute renal failure: acute versus subacute CARLA from prostate CA/bladder outlet obstruction. Voiding now with rain > no concerns about oliguria. not overloaded, no UTI; chemistries ok apart from some metabolic acidosis > likely combination of renal failure and elevated lactate, the latter now normalized. hyperchloremia likely f rom NS therapy. -urology recommends rain for at least 7-10 days. -recheck bmp now along with recheck hgb> continue LR for now but may need alternative IV fluid >> await evening labs and adjust fluid, likely lower rate -repeat bmp in am -no indication for emergent dialysis -no dose adjustment needed for casodex w/ renal failure Care coordinated w/ Dr Ruff (2) Chronic systolic heart failure: -monitor for fluid overload -continue to hold entresto History of Present Illness Reason for Consultation: CARLA and metabolic acidosis Requesting Physician: Dr Ruff Attending Physician: Spencer Ruff MD History of Present Illness 60 y/o M whom I'm asked to see for CARLA and metabolic acidosis was admitted here last evening after OP CT scan showed BL hydroureteronephrosis, R>L. 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 He was started on bicalutamide 05/27 for suspected advanced metastatic prostate CA. Pt baseline creatinine as recently as spring 2020 is 1.0-1.2. At 05/31 OP labs, was 3.9; 4.1 in ER > improved to 3.8 today. bicarb was 17>16 this am. Lactate was 2.2 but has now normalized. Rain placed in ER w/ mckeon red urine. Pt currently getting LR at 80 ml/hr. he denies nsaid use at home. he c/o low anterior abdominal and penile pain. also states he'd been eating and especially drinking less prior to admission d/t challenges he was having w/ voiding urine. he denies any change in his chronic exertional dyspnea; no edema. no n/v. he has made about 4.6L urine today. Allergies Allergy/AdvReac Type Severity Reaction Status Date / Time codeine AdvReac Intermediate Gastrointestinal Unverified 05/31/21 18:09 Upset Home Medications Medication Instructions Recorded Confirmed Type atorvastatin 80 mg tablet 80 mg PO HS 04/23/19 05/31/21 History sildenafil 50 mg tablet 60 mg PO DAILY PRN 04/23/19 05/31/21 History clopidogrel 75 mg tablet 75 mg PO QAM 01/17/21 05/31/21 History sacubitril 24 mg-valsartan 26 mg 1 tab PO BID 01/17/21 05/31/21 History tablet (Entresto) tizanidine 2 mg capsule 2 mg PO Q8H PRN 01/17/21 05/31/21 History trazodone 100 mg tablet 300 mg PO HS PRN 01/17/21 05/31/21 History alfuzosin 10 mg tablet,extended 10 mg PO QAM 05/31/21 05/31/21 History release 24 hr (Uroxatral) bicalutamide 50 mg tablet (Casodex) 50 mg PO QAM 05/31/21 05/31/21 History diphenhydramine 25 1 tab PO TID PRN 05/31/21 05/31/21 History mg-acetaminophen 500 mg tablet (Tylenol PM Extra Strength) empagliflozin 25 mg tablet 25 mg PO QAM 05/31/21 05/31/21 History (Jardiance) metformin 500 mg tablet,extended 1,000 mg PO UD 05/31/21 05/31/21 History release 24 hr metoprolol succinate 25 mg 25 mg PO DAILY 05/31/21 05/31/21 History tablet,extended release 24 hr Patient History Medical History (Updated 06/01/21 @ 18:53 by Ary Mcdonnell MD, PhD) BPH with obstruction/lower urinary tract symptoms Chronic systolic heart failure DM2 (diabetes mellitus, type 2) HLD (hyperlipidemia) HTN (hypertension) PAD (peripheral artery disease) Prostate cancer screening Suspected malignant neoplasm Tobacco abuse Surgical History History of left common carotid artery stent placement Family History Other Diabetes Heart disease Hypertension Social History Smoking Status: Current every day smoker Tobacco Type: Cigarettes packs per day: 0.5; Cigarettes Per Day: 8; Do You Dip or Chew Tobacco: No; Tobacco Cessation Education Requested by Patient: No Hx Alcohol Use: Yes Alcohol type: beer and hard liquor Alcohol Intake Frequency: Monthly or Less Hx Substance Use: No Preferred Language: Romansh Communication Ability: Effective Wire Walker Required: No Beliefs That Will Affect Care: None Current Living Situation: Spouse Other Information That Helps Us Care for You: No Feels Safe at Home: Yes Safety Concerns: Feels Safe At This Time Assistive Devices: Glasses Review of Systems Review of Systems: All systems reviewed & are unremarkable except as noted in HPI & below Physical Exam Constitutional: well developed, + thin, + frail appearing (appears older than stated age), + disheveled and cooperative Eyes: EOM intact bilaterally ENMT: Ears: no external ear abnormality Nose: no external nose abnormality Mouth: + dry oral mucous membranes Neck: no nuchal rigidity Respiratory: normal respiratory effort (lying flat on RA) Auscultation: + diminished lung sounds (merrill R base); no crackles and no wheezes Cardiovascular: Rate/Rhythm: regular rate and regular rhythm Heart Sounds: normal S1 and normal S2 Extremities: no edema Gastrointestinal (Abdomen): Inspection/Auscultation: normal bowel sounds Percussion/Palpation: + abdomen tender (discomfort w/ moderate low ant palpation) and abdomen soft Musculoskeletal: Extremities: strength 5/5 throughout Skin: no rashes, warm and dry Neurologic: arias, fluent speech, no tremor Psychiatric: Orientation: alert and oriented x 3 Speech: normal rate/rhythm/volume of speech Genitourinary: rain w/ ample mckeon red urine Results & Data ([facility]) Vital Signs (Past 12 Hours) Vital Signs Temp Pulse Pulse Resp BP Pulse Ox 06/01/21 15:39 36.3 C L 83 18 132/75 97 06/01/21 15:09 73 06/01/21 11:39 36.8 C 90 18 117/75 100 06/01/21 08:08 91 H 06/01/21 07:48 36.6 C 84 18 121/75 99 Laboratory Results 06/01/21 13:59 06/01/21 05:34 Diagnostic Findings OP imaging reviewed cxr no vascular congestion (1) Acute renal failure Acute renal failure type: unspecified Qualified Code(s): N17.9 - Acute kidney failure, unspecified
[2021-06-01 19:51] LABS: Basophils # (auto) 0.06 K/uL (0-0.2); Basophils % (auto) 0.3 %; Eosinophils # (auto) 0.08 K/uL (0-0.5); Eosinophils % (auto) 0.4 %; Hematocrit (blood only) 30.2 % (42-52); Hemoglobin 9.7 g/dL (14.0-18.0); Immature Granulocytes # (auto) 0.04 K/uL (0.00-0.02); Immature Granulocytes % (auto) 0.2 %; Lymphocytes # (auto) 3.24 K/uL (1.2-3.4); Lymphocytes % (auto) 17.8 %; Mean Corpuscular Hemoglobin 31.5 pg (25-34); Mean Corpuscular Volume 98.1 fL (80-100); Mean Platelet Volume 8.4 fL (7.4-10.4); Monocytes # (auto) 1.31 K/uL (0.11-0.59); Monocytes % (auto) 7.2 %; Neutrophils # (auto) 13.43 K/uL (1.4-6.5); Neutrophils % (auto) 74.1 %; Platelet Count 307 K/uL (130-400); RDW Coefficient of Variation 17.1 % (11.5-14.5); RDW Standard Deviation 61.2 fL (36.4-46.3); Red Blood Count 3.08 M/uL (4.7-6.1); White Blood Count 18.16 K/uL (4.8-10.8)
[2021-06-01 19:57] LABS: Mean Corpuscular Hgb Conc 32.1 g/dL (32-36)
[2021-06-01 20:14] LABS: BUN Creatinine Ratio 9.5 (10-20); Calcium 8.8 mg/dl (8.5-10.1); Est GFR (African American) 20.2 ml/min; Est GFR (Non-African American) 17.4 ml/min; Potassium 3.8 mmol/L (3.5-5.1)
[2021-06-01] MEDS: ATORVASTATIN 40 MG TAB PO SCH (20:37)
[2021-06-01] MEDS ORDERED: SODIUM BICARBONATE 8.4% 150 MEQ in DEXTROSE 5% 1,000 ML IV SCH (21:45)
[2021-06-02] MEDS: MoRPHine SULFATE 4 MG/ML 1 ML CARP\\VIAL IV PRN ×4 (03:46→20:32)
--- NOTE | 2021-06-02 05:40 | Electrocardiogram Report ---
Test Reason : Blood Pressure : / mmHG Vent. Rate : 108 BPM Atrial Rate : 108 BPM P-R Int : 162 ms QRS Dur : 108 ms QT Int : 354 ms P-R-T Axes : 073 066 079 degrees QTc Int : 474 ms Sinus tachycardia Nonspecific T wave abnormality When compared with ECG of 17-MAY-2016 07:16, Vent. rate has increased BY 40 BPM T wave amplitude has decreased in Lateral leads QT has lengthened Confirmed by Wiley Tyler ([id number]) on 06/02/2021 5:39:29 AM Referred By: Isaías Novak Confirmed By:Wiley Tyler
--- NOTE | 2021-06-02 05:43 | Electrocardiogram Report ---
Test Reason : Blood Pressure : / mmHG Vent. Rate : 102 BPM Atrial Rate : 102 BPM P-R Int : 164 ms QRS Dur : 110 ms QT Int : 348 ms P-R-T Axes : 075 069 075 degrees QTc Int : 453 ms Sinus tachycardia Nonspecific T wave abnormality When compared with ECG of 31-MAY-2021 23:28, No significant change was found Confirmed by Wiley Tyler ([id number]) on 06/02/2021 5:42:55 AM Referred By: Isaías Novak Confirmed By:Wiley Tyler
[2021-06-02 07:24] LABS: Hematocrit (blood only) 25.9 % (42-52); Hemoglobin 8.5 g/dL (14.0-18.0); Mean Corpuscular Hemoglobin 31.6 pg (25-34); Mean Corpuscular Hgb Conc 32.8 g/dL (32-36); Mean Corpuscular Volume 96.3 fL (80-100); Mean Platelet Volume 8.3 fL (7.4-10.4); Platelet Count 235 K/uL (130-400); RDW Coefficient of Variation 17.3 % (11.5-14.5); RDW Standard Deviation 60.8 fL (36.4-46.3); Red Blood Count 2.69 M/uL (4.7-6.1); White Blood Count 10.16 K/uL (4.8-10.8)
[2021-06-02 08:00] LABS: BUN Creatinine Ratio 10.6 (10-20); Calcium 8.4 mg/dl (8.5-10.1); Creatinine Clr Calc Pharmacy 23.5 ml/min; Est GFR (African American) 26.4 ml/min; Est GFR (Non-African American) 22.8 ml/min; Potassium 4.6 mmol/L (3.5-5.1)
[2021-06-02] MEDS: ALFUZOSIN HCL 10 MG TAB PO SCH (08:47)
[2021-06-02] MEDS: INSULIN ASPART 100 UNITS/ML 3 ML PEN SC SCH ×4 (08:47→20:42)
[2021-06-02] MEDS: BICALUTAMIDE 50 MG TAB PO SCH (08:47)
[2021-06-02 08:49] LABS: Folate (Folic Acid) 5.9 ng/ml (>5.38)
[2021-06-02] MEDS ORDERED: SACUBITRIL-VALSARTAN 24-26 MG TAB PO SCH (09:00)
[2021-06-02] MEDS ORDERED: SODIUM CHLORIDE 0.45 % 1,000 ML IV STA (09:35)
[2021-06-02 12:18] LABS: Hematocrit (blood only) 26.3 % (42-52); Hemoglobin 8.6 g/dL (14.0-18.0)
[2021-06-02] MEDS ORDERED: SIMETHICONE 80 MG CHEW PO PRN (12:28)
[2021-06-02] MEDS ORDERED: POLYETHYLENE (MIRALAX) 17 GM PACK PO ONE (12:29)
--- NOTE | 2021-06-02 12:30 | Hospitalist Progress Note ---
Date of Service June 02, 2021 Assessment & Plan (1) Suspected malignant neoplasm: (2) Urinary tract obstruction: (3) Acute renal failure: Plan: per admitting service notes This is a 60 yo M with PHM of Type 2 diabetes, PAD, L carotid stent placement at [facility] December 2020, chronic systolic heart failure, CKD 3, hypertension, BPH, tobacco use, history of CVA, insomnia and other medical problems listed below who presents with abnormal lab work and imaging from PCP. Prostate Tumor Obstructive Uropathy Acute Renal failure, with Metabolic Acidosis Recently established with Dr. Novak of urology at [facility] for elevated PSA MRI from this month revealed extensive tumor throughout the prostate gland with findings worrisome for extraprostatic extension to involve the bladder, anterior pelvic wall and seminal vesicles, as well as skeletal metastases Started on bicalutamide and is due for biopsy in July when he is okayed by vascular surgery to come off of plavix for procedure CT abd/pelvis wo con from [facility] earlier today with urinary bladder very distended nearly to the level of the umbilicus, with at least moderate bilateral hydroureteronephrosis, right worse than left Rain catheter placed in ED - draining mckeon red urine UA without evidence of infection Cr elevated at 4 in setting of obstruction (baseline ~ 1) 06/01 still with blood tinged urine output in Rain hg 10.9 to 9.8 repeat Hg at 2pm Crea 4 to 3.7 HCO3 16 Nephro consulted continue LR (4) Elevated lipase: Plan: Lipase 656 Chronic pancreatitis visualized on outpatient CT a/p No N/V or abdominal pain, monitor (5) Elevated lactic acid level: Plan: Lactate 2.2 in setting of urinary obstruction, now with rain in place, has received IV fluids Metformin may also be contributing normalized -- no signs of infection (6) Metabolic acidosis: Plan: management per above (7) DM2 (diabetes mellitus, type 2): Plan: A1c 6.7 in March Hold home agents SSI while in-patient BSG AC HS (8) Chronic systolic heart failure: Plan: History of ischemic CM with EF 30%, improved to 43% on November 2020 echo Not on home diuretics -- euvolemic monitor (9) HTN (hypertension): Plan: Reported low BP lately, instructed to hold metoprolol for now BP elevated in setting of pain - optimize pain control metoprolol with hold parameters (10) HLD (hyperlipidemia): Plan: Continue statin (11) Tobacco abuse: Plan: Cessation recommended DVT Ppx: SCDs for now in setting of hematuria Code status: FULL PCP: Catrina Dispo: anticipate d/c home when medically stable Admission and Anticipated Discharge Date Admission Date: May 31, 2021 Results & Data Results & Data ([facility]) Vital Signs (Past 12 Hours) Vital Signs Temp Pulse Pulse Resp BP BP Pulse Ox 06/02/21 10:59 36.8 C 109 H 20 115/71 98 06/02/21 07:01 36.5 C 80 20 135/80 98 06/02/21 07:00 72 06/02/21 01:00 90 (1) Acute renal failure Acute renal failure type: unspecified Qualified Code(s): N17.9 - Acute kidney failure, unspecified
[2021-06-02] MEDS: ACETAMINOPHEN 325 MG TAB PO SCH ×2 (12:53→22:04)
--- NOTE | 2021-06-02 13:06 | Urology Progress Note ---
Date of Service June 02, 2021 Assessment & Plan (1) Urinary tract obstruction: (2) Acute urinary retention: (3) Gross hematuria: (4) Suspected malignant neoplasm: Plan: 60 year-old male patient, with multiple comorbidities, admitted with acute renal failure likely in the setting of dehydration and urinary obstruction. -Plan of care reviewed with Dr. Alas, on-call urologist. -Patient remains afebrile. -Labs reviewed - white count 10.16, hgb 8.6 (previously 8.5 this AM), creatinine improving at 2.85 (previously 3.56). -Urine culture ordered today. -Okay from standpoint to restart ASA/Plavix with the understanding that hematuria may worsen. -May hand-irrigate rain catheter PRN retention or suprapubic pain. -Continue with supportive care, bowel regimen, monitoring of creatinine and H&H. Transfuse if indicated by primary team. -No acute intervention indicated at this time presuming he remains clinically stable. -Will continue to follow while inpatient, see attending physician addendum for further plan details. Admission and Anticipated Discharge Date Admission Date: May 31, 2021 Supervising Physician Co-Signing Physician Notes Discussed patient and plan with CORBIN, agree with above. 60 yo M with likely metastatic prostate cancer on casodex (no tissue diagnosis yet due to requiring anticoagulation and preventing biopsy) who presented in acute urinary retention and CARLA. Rain catheter placed and hematuria developed, likely from combination of bladder distention and traumatic placement. Hematuria has persisted but catheter has been draining without clots. Creatinine downtrending. Patient follows with outside urologist and reportedly has biopsy scheduled soon along with med onc appointment. Ideally, if metastatic prostate cancer, patient would benefit from initiation of lupron with possible addition of enzalutamide, but will defer to primary oncologist and urologist. Maintain rain catheter until follow up with urologist as retention may persist due to obstruction from enlarged prostate/cancer. Recommend restarting anticoagulation as more important to prevent stroke. Urology can manage any hematuria that persists with larger catheter, irrigation, or CBI. Would ideally avoid OR as bladder/prostate will likely be friable and difficult to achieve hemostasis. Hgb has largely been stable and do not think hematuria will cause persistent drop, but defer transfusion to primary team. Subjective Reconsulted for persistent hematuria Patient seen at bedside, he is resting comfortably in bed. Reports generalized discomfort to abdomen but attributes this to not passing gas/having BM in 2 days. Hematuria has continued, per patient he has not noticed any clots today. Denies bladder pain or pressure. Tolerating 16F rain catheter without difficulties. Has intermittent nausea, denies vomiting. Denies fevers or chills. Has been ambulating without dizziness/lightheadedness. Per patient, prostate biopsy date was changed to 06/10/[address] Isaías Novak [facility]. Chart review: Afebrile Wbc 10.16 Hgb 8.6 (previously 8.5 this AM) Creatinine 2.85 (previously 3.56) Urine culture ordered today. Denies additional urologic concerns today. Review of Systems Constitutional: as per Subjective / HPI; no fever and no chills Gastrointestinal: as per Subjective / HPI and + nausea; no vomiting Genitourinary: + as per Subjective / HPI Physical Exam Constitutional: well developed and well nourished; no acute distress and not ill appearing Respiratory: normal respiratory effort and able to speak in complete sentences; no respiratory distress and no audible wheezes Gastrointestinal (Abdomen): Inspection/Auscultation: abdomen normal to inspection; abdomen not distended Percussion/Palpation: abdomen soft; abdomen nontender and no guarding Psychiatric: Orientation: alert, oriented x 3 and cooperative Affect: euthymic affect Genitourinary: no CVA tenderness Rain catheter intact, draining clear mckeon red urine without visible clots. Results & Data ([facility]) Vital Signs (Past 12 Hours) Vital Signs Temp Pulse Pulse Resp BP BP Pulse Ox 06/02/21 10:59 36.8 C 109 H 20 115/71 98 06/02/21 07:01 36.5 C 80 20 135/80 98 06/02/21 07:00 72 PG Care Time/CCT Total # of Minutes Spent Total Time Spent with Patient: Total time spent is greater than 50% in coordination of care (as documented) at patient's floor/unit and/or counseling patient: Coding Level of Care Code 40935 Subseq Hosp Care Lvl 2 Diagnoses Urinary tract obstruction N13.9 Acute urinary retention R33.8 Gross hematuria R31.0 Suspected malignant neoplasm R68.89
[2021-06-02] MEDS ORDERED: CLOPIDOGREL BISULFATE 75 MG TAB PO ONE (14:04)
--- NOTE | 2021-06-02 16:36 | Hospitalist Progress Note ---
Date of Service June 02, 2021 Assessment & Plan (1) Suspected malignant neoplasm: (2) Urinary tract obstruction: (3) Acute renal failure: Plan: per admitting service notes This is a 60 yo M with PHM of Type 2 diabetes, PAD, L carotid stent placement at [facility] December 2020, chronic systolic heart failure, CKD 3, hypertension, BPH, tobacco use, history of CVA, insomnia and other medical problems listed below who presents with abnormal lab work and imaging from PCP. Prostate Tumor Obstructive Uropathy Acute Renal failure, with Metabolic Acidosis Recently established with Dr. Novak of urology at [facility] for elevated PSA MRI from this month revealed extensive tumor throughout the prostate gland with findings worrisome for extraprostatic extension to involve the bladder, anterior pelvic wall and seminal vesicles, as well as skeletal metastases Started on bicalutamide and is due for biopsy in July when he is okayed by vascular surgery to come off of plavix for procedure CT abd/pelvis wo con from [facility] earlier today with urinary bladder very distended nearly to the level of the umbilicus, with at least moderate bilateral hydroureteronephrosis, right worse than left Velasquez catheter placed in ED - draining mckeon red urine UA without evidence of infection Cr elevated at 4 in setting of obstruction (baseline ~ 1) 06/01 still with blood tinged urine output in Velasquez hg 10.9 to 9.8--> 8.5 repeat Hg at 6pm Vasc Sx notes reviewed and spoke with outpatient Urologist Dr. Novak start Aspirin 81mg po daily, can continue until prostate biopsy date 06/10/21 Crea 4 to 3.7 to 2.8 HCO3 22 Nephro consulted on 10/02 NSS (4) Elevated lipase: Plan: Lipase 656 Chronic pancreatitis visualized on outpatient CT a/p No N/V or abdominal pain, monitor (5) Metabolic acidosis: Plan: management per above (6) DM2 (diabetes mellitus, type 2): Plan: A1c 6.7 in March Hold home agents SSI while in-patient BSG AC HS -- stable (7) Chronic systolic heart failure: Plan: History of ischemic CM with EF 30%, improved to 43% on November 2020 echo Not on home diuretics -- euvolemic monitor (8) HTN (hypertension): Plan: Reported low BP lately, instructed to hold metoprolol for now BP elevated in setting of pain - optimize pain control Metoprolol and Entresto with hold parameters (9) HLD (hyperlipidemia): Plan: Continue statin (10) Tobacco abuse: Plan: Cessation recommended DVT Ppx: SCDs for now in setting of hematuria Code status: FULL PCP: Catrina Dispo: anticipate d/c home when medically stable plan of care discussed with patient in detail and at length all questions answered he is understanding, agreeable, comfortable with the plan of care Admission and Anticipated Discharge Date Admission Date: May 31, 2021 Subjective ff up for prostate mass, obs uropathy, etc seen resting in bed,not in distress reports pain over the bladder area still has hematuria- no blood clots seen on Velasquez urine output OK no chest pain, dyspnea, palpitations, dizziness no other symptoms Review of Systems Review of Systems: all noted and negative except for above Physical Exam Physical Exam: General- oriented x 3, not in distress, speaks in sentences with no effort or accessory muscle use Eyes- anicteric Neck- no JVD Lungs- clear breath sounds bilaterally, no rales/wheezes Heart- normal rate, regular rhythm; no murmurs Abdomen- normal bowel sounds, nondistended, soft, no LLQ tenderness Extremities- no pretibial edema, no calf tenderness Neuro- alert, oriented x 3; no gross focal neurologic deficits Skin- warm & dry Results & Data Results & Data ([facility]) Vital Signs (Past 12 Hours) Vital Signs Temp Pulse Pulse Resp BP BP Pulse Ox 06/02/21 15:22 36.7 C 98 H 18 91/62 L 97 06/02/21 14:50 95 H 06/02/21 10:59 36.8 C 109 H 20 115/71 98 06/02/21 07:01 36.5 C 80 20 135/80 98 06/02/21 07:00 72 all noted and reviewed including below (1) Acute renal failure Acute renal failure type: unspecified Qualified Code(s): N17.9 - Acute kidney failure, unspecified
[2021-06-02] MEDS: ASPIRIN 81 MG ECTAB PO SCH (17:05)
--- NOTE | 2021-06-02 17:31 | Nephrology Progress Note ---
Date of Service June 02, 2021 Assessment & Plan (1) Acute renal failure: Plan: acute versus subacute CARLA from prostate CA/bladder outlet obstruction. Voiding now with rain > no concerns about oliguria. not overloaded, no UTI; chemistries ok apart from some metabolic acidosis > likely combination of renal failure and elevated lactate, the latter now normalized. hyperchloremia likely from NS therapy. -urology recommends rain for at least 7-10 days. -changed IVF to 1/2 NS at 80 ml/hr this am; cont same; tolerating rate -resumed entresto today > will hold pm dose and med generally given CARLA but look to resume soon -repeat bmp in am -no indication for emergent dialysis -no dose adjustment needed for casodex w/ renal failure Care coordinated w/ Dr Ruff (2) Chronic systolic heart failure: Plan: -monitor for fluid overload -continue to hold entresto Admission and Anticipated Discharge Date Admission Date: May 31, 2021 Subjective no dyspnea " since 2005;" tired and cold; has no teeth and can't chew so can only eat so much; no edema; no change in rain output Review of Systems Review of Systems: All systems reviewed & are unremarkable except as noted in Subjective Physical Exam Constitutional: well developed, + thin, + frail appearing (appears older than stated age), + disheveled and cooperative Eyes: EOM intact bilaterally ENMT: Ears: no external ear abnormality Nose: no external nose abnormality Mouth: + dry oral mucous membranes and + edentulous Neck: no nuchal rigidity Respiratory: normal respiratory effort (lying flat on RA) Auscultation: lungs clear to auscultation bilaterally and + diminished lung sounds; no crackles and no wheezes Cardiovascular: Rate/Rhythm: regular rate and regular rhythm Heart Sounds: normal S1 and normal S2 Extremities: no edema Gastrointestinal (Abdomen): Inspection/Auscultation: normal bowel sounds Percussion/Palpation: + abdomen tender (discomfort w/ moderate low ant palpation) and abdomen soft Musculoskeletal: Extremities: strength 5/5 throughout Skin: no rashes, warm and dry Psychiatric: Orientation: alert and oriented x 3 Speech: normal rate/rhythm/volume of speech Genitourinary: rain w/ gross blood Results & Data ([facility]) Vital Signs (Past 12 Hours) Vital Signs Temp Pulse Pulse Resp BP BP Pulse Ox 06/02/21 15:22 36.7 C 98 H 18 91/62 L 97 06/02/21 14:50 95 H 06/02/21 10:59 36.8 C 109 H 20 115/71 98 06/02/21 07:01 36.5 C 80 20 135/80 98 06/02/21 07:00 72 Laboratory Results 06/02/21 12:08 06/02/21 07:00 (1) Acute renal failure Acute renal failure type: unspecified Qualified Code(s): N17.9 - Acute kidney failure, unspecified
[2021-06-02 18:37] LABS: Hematocrit (blood only) 24.1 % (42-52); Hemoglobin 7.8 g/dL (14.0-18.0)
[2021-06-02] MEDS: ATORVASTATIN 40 MG TAB PO SCH (20:38)
--- NOTE | 2021-06-02 20:39 | Communication Note ---
Date of Service: June 02, 2021 Notified by day team that pt. has repeat Hb for this evening. Labs reviewed and Hb has dropped to 7.8. Vitals reviewed and SBP has been running in the 90s with HR in 90s. Urology will defer to hospitalists decision to transfuse. Notified Dr. Nieves who has indicated he will handle this matter.
[2021-06-03] MEDS: MoRPHine SULFATE 4 MG/ML 1 ML CARP\\VIAL IV PRN ×3 (01:49→11:04)
[2021-06-03] MEDS: ACETAMINOPHEN 325 MG TAB PO SCH ×2 (05:53→15:10)
[2021-06-03 07:12] LABS: Basophils # (auto) 0.03 K/uL (0-0.2); Basophils % (auto) 0.3 %; Hemoglobin 8.6 g/dL (14.0-18.0); Immature Granulocytes # (auto) 0.02 K/uL (0.00-0.02); Immature Granulocytes % (auto) 0.2 %; Lymphocytes # (auto) 3.08 K/uL (1.2-3.4); Lymphocytes % (auto) 30.6 %; Mean Corpuscular Hemoglobin 31.4 pg (25-34); Mean Corpuscular Hgb Conc 31.9 g/dL (32-36); Mean Corpuscular Volume 98.5 fL (80-100); Mean Platelet Volume 8.2 fL (7.4-10.4); Neutrophils # (auto) 6.12 K/uL (1.4-6.5); Neutrophils % (auto) 60.9 %; Platelet Count 244 K/uL (130-400); RDW Coefficient of Variation 17.1 % (11.5-14.5); RDW Standard Deviation 61.5 fL (36.4-46.3); Red Blood Count 2.74 M/uL (4.7-6.1); White Blood Count 10.05 K/uL (4.8-10.8)
[2021-06-03 07:43] LABS: BUN Creatinine Ratio 9.7 (10-20); Calcium 8.4 mg/dl (8.5-10.1); Creatinine Clr Calc Pharmacy 25.9 ml/min; Est GFR (African American) 29.8 ml/min; Est GFR (Non-African American) 25.7 ml/min; Magnesium 2.1 mg/dl (1.8-2.4)
[2021-06-03] MEDS: INSULIN ASPART 100 UNITS/ML 3 ML PEN SC SCH ×2 (08:06→13:11)
[2021-06-03] MEDS: ASPIRIN 81 MG ECTAB PO SCH (08:07)
[2021-06-03] MEDS: ALFUZOSIN HCL 10 MG TAB PO SCH (08:08)
[2021-06-03] MEDS: BICALUTAMIDE 50 MG TAB PO SCH (08:08)
--- NOTE | 2021-06-03 08:29 | Urology Progress Note ---
Date of Service June 03, 2021 Assessment & Plan (1) Urinary tract obstruction: (2) Acute urinary retention: (3) Gross hematuria: (4) Suspected malignant neoplasm: Plan: 60 year-old male patient, with multiple comorbidities, admitted with acute renal failure likely in the setting of dehydration and urinary obstruction. - Plan of care reviewed with Dr. Chaudhari, urologist on-call. - Patient remains afebrile. - Lab work reviewed - WBC 10.05, Hgb 8.6 (previously 7.8 yesterday PM), creatinine downtrending- 2.58. - Hgb improved this AM after discontinuing IV fluids yesterday, did not require blood transfusion overnight. - Urine culture pending - follow culture. - Hematuria has persisted but catheter has been draining without clots. - Okay from standpoint to restart ASA/Plavix with the understanding that hematuria may worsen. - May hand-irrigate Velasquez catheter PRN retention or suprapubic pain. - Recommend maintain Velasquez catheter until his urology follow-up with Dr. Novak. - Continue with supportive care, bowel regimen, monitoring of creatinine and H&H. Transfuse if indicated by primary team. - No acute intervention indicated at this time presuming he remains clinically stable. - Patient to follow-up with his primary urologist - Dr. Novak, [facility], as scheduled. Thank you for allowing us to participate in the acute care of Mr. Chaudhari. Please reconsult us with additional questions, concerns or changes in patient status. Admission and Anticipated Discharge Date Admission Date: May 31, 2021 Subjective Patient seen and examined at bedside this AM. He is resting in bed, arouses easily to his name. Occasional nausea, no vomiting, no recent BM, +Flatus. No fever or chills. Tolerating Velasquez catheter. Velasquez is intact, patent and draining mckeon red urine without clots. Notes intermittent prostate/rectal/suprapubic discomfort, describes as burning at times. His Hgb decreased to 7.8 yesterday evening, his IV fluids were discontinued. Repeat Hgb today was 8.6. He is pending prostate biopsy with Dr. Novak on 06/10/21. No additional concerns at this time. Review of Systems Constitutional: as per Subjective / HPI Gastrointestinal: as per Subjective / HPI Genitourinary: + as per Subjective / HPI Physical Exam Constitutional: well developed, well nourished and + thin; no acute distress and not ill appearing Respiratory: normal respiratory effort, + cough and able to speak in complete sentences; no respiratory distress and no labored breathing Cardiovascular: Extremities: no pedal edema Gastrointestinal (Abdomen): Inspection/Auscultation: abdomen normal to inspection; abdomen not distended Percussion/Palpation: abdomen soft; abdomen nontender and no guarding Musculoskeletal: Head/Neck/Chest: normocephalic and head atraumatic Neurologic: moves all extremities and awake Psychiatric: Orientation: alert and oriented x 3 Genitourinary: Velasquez intact, patent and draining mckeon red urine Results & Data ([facility]) Vital Signs (Past 12 Hours) Vital Signs Temp Pulse Resp BP BP Pulse Ox 06/03/21 07:39 36.6 C 96 H 20 130/74 98 06/03/21 03:05 37.1 C 89 18 101/61 99 06/02/21 22:58 36.7 C 93 H 18 142/75 H 100 06/02/21 20:25 126/76 PG Care Time/CCT Total # of Minutes Spent Total Time Spent with Patient: Total time spent is greater than 50% in coordination of care (as documented) at patient's floor/unit and/or counseling patient: Coding Level of Care Code 11036 Subseq Hosp Care Lvl 2 Diagnoses Gross hematuria R31.0 Urinary tract obstruction N13.9 Suspected malignant neoplasm R68.89 Acute urinary retention R33.8
[2021-06-03] MEDS ORDERED: CLOPIDOGREL BISULFATE 75 MG TAB PO SCH (09:00)
--- NOTE | 2021-06-03 09:04 | Nephrology Progress Note ---
Date of Service June 03, 2021 Assessment & Plan (1) Acute renal failure: Plan: Stage 3 nonoliguric acute versus subacute CARLA from prostate CA/bladder outlet obstruction. Voiding now with rain > no concerns about oliguria. not overloaded, no UTI; chemistries ok apart from improving hyperchloremic metabolic acidosis. hyperchloremia likely from obligate ivf therapy. -urology recommends rain for at least 7-10 days. -resume 1/2 NS at 80 ml/hr this am; to run continuously -he had one dose of entresto on 06/02; then held again; continue to hold unless HF sx emerge until CARLA further improved -repeat bmp in am -no indication for emergent dialysis -no dose adjustment needed for casodex w/ renal failure (2) Chronic systolic heart failure: Plan: -monitor for fluid overload - to date no evidence of this; he is overall less than 500 mL positive on the admission -continue to hold entresto Admission and Anticipated Discharge Date Admission Date: May 31, 2021 Subjective no interval clinical events. no sob or orthopnea or edema. c/o "prostate pain." Review of Systems Review of Systems: All systems reviewed & are unremarkable except as noted in Subjective Physical Exam Constitutional: well developed, + thin, + frail appearing (appears older than stated age), + disheveled and cooperative Eyes: EOM intact bilaterally ENMT: Ears: no external ear abnormality Nose: no external nose abnormality Mouth: + dry oral mucous membranes and + edentulous Neck: no nuchal rigidity Respiratory: normal respiratory effort (lying flat on RA) Auscultation: lungs clear to auscultation bilaterally and + diminished lung sounds; no crackles and no wheezes Cardiovascular: Rate/Rhythm: regular rate and regular rhythm Heart Sounds: normal S1 and normal S2 Extremities: no edema Gastrointestinal (Abdomen): Inspection/Auscultation: normal bowel sounds Percussion/Palpation: + abdomen tender (discomfort w/ moderate low ant palpation but less than prior) and abdomen soft Musculoskeletal: Extremities: strength 5/5 throughout Skin: no rashes, warm and dry Psychiatric: Orientation: alert and oriented x 3 Speech: normal rate/rhythm/volume of speech Genitourinary: rain still w/ lucina blood Results & Data ([facility]) Vital Signs (Past 12 Hours) Vital Signs Temp Pulse Resp BP BP Pulse Ox 06/03/21 07:39 36.6 C 96 H 20 130/74 98 06/03/21 03:05 37.1 C 89 18 101/61 99 06/02/21 22:58 36.7 C 93 H 18 142/75 H 100 Laboratory Results 06/03/21 06:59 06/03/21 06:59 (1) Acute renal failure Acute renal failure type: unspecified Qualified Code(s): N17.9 - Acute kidney failure, unspecified
[2021-06-03] MEDS ORDERED: SODIUM CHLORIDE 0.45 % 1,000 ML IV SCH (09:15)
[2021-06-03] MEDS ORDERED: METOPROLOL SUCC 25MG EXT REL TAB PO SCH (14:15)
--- NOTE | 2021-06-03 14:16 | Hospitalist Progress Note ---
Date of Service June 03, 2021 Assessment & Plan (1) Suspected malignant neoplasm: (2) Urinary tract obstruction: (3) Acute renal failure: Plan: per admitting service notes This is a 60 yo M with PHM of Type 2 diabetes, PAD, L carotid stent placement at [facility] [place] December 2020, chronic systolic heart failure, CKD 3, hypertension, BPH, tobacco use, history of CVA, insomnia and other medical problems listed below who presents with abnormal lab work and imaging from PCP. Prostate Tumor Obstructive Uropathy Acute Renal failure, with Metabolic Acidosis Hematuria Recently established with Dr. Novak of urology at [facility] for e levated PSA MRI from this month revealed extensive tumor throughout the prostate gland with findings worrisome for extraprostatic extension to involve the bladder, anterior pelvic wall and seminal vesicles, as well as skeletal metastases Started on bicalutamide and is due for biopsy in July when he is okayed by vascular surgery to come off of plavix for procedure CT abd/pelvis wo con from [facility] earlier today with urinary bladder very distended nearly to the level of the umbilicus, with at least moderate bilateral hydroureteronephrosis, right worse than left Velasquez catheter placed in ED - draining mckeon red urine UA without evidence of infection Cr elevated at 4 in setting of obstruction (baseline ~ 1) Velasquez catheter maintained, blood tinged likely from insertion of Velasquez hg monitored, stable at 8.6 x 2 days no clots per Velasquez catheter, draining well Crea gradually improved from 4 to 2.5 HCO3 also improved from 16 to 22 with IV fluids Nephro consulted- Dr. Mcdonnell [facility] Sx notes reviewed and spoke with outpatient Urologist Dr. Novak in light of Left Carotid Stent placement in December 2020, start Aspirin 81mg po daily, can continue until prostate biopsy date 06/10/21 d/c home today repeat BMP on Jun 07, 2021 maintain Velasquez Cath until seen by Urologist next week (4) Elevated lipase: Plan: Lipase 656 Chronic pancreatitis visualized on outpatient CT a/p No N/V or abdominal pain, monitor (5) Metabolic acidosis: Plan: management per above (6) DM2 (diabetes mellitus, type 2): Plan: A1c 6.7 in March HOLD Metformin in light of acute renal failure resume accordingly pending repeat BMP as outpatient continue Jardiance (7) Chronic systolic heart failure: Plan: History of ischemic CM with EF 30%, improved to 43% on November 2020 echo Not on home diuretics -- euvolemic monitor (8) HTN (hypertension): Plan: HOLD Entresto in light of acute renal failure resume accordingly pending repeat BMP as outpatient continue Metoprolol (9) HLD (hyperlipidemia): Plan: Continue statin (10) Tobacco abuse: Plan: Cessation recommended Dispo: d/c home ff up with PCP in 1 week ff up with Urologist as scheduled next week plan of care discussed with patient in detail and at length all questions answered he is understanding, agreeable, comfortable with the plan of care Admission and Anticipated Discharge Date Admission Date: May 31, 2021 Subjective ff up for obstructive uropathy, etc seen resting in bed, comfortable states he feels better overall pain is adequately controlled denies nausea, chills no chest pain, dyspnea, palpitations, dizziness no other symptoms states he is ready and would like to go home today Review of Systems Review of Systems: all noted and negative except for above Physical Exam Physical Exam: General- oriented x 3, not in distress, speaks in sentences with no effort or accessory muscle use Eyes- anicteric Neck- no JVD Lungs- clear breath sounds, no rales/wheezing BL Heart- normal rate, regular rhythm; no murmurs Abdomen- normal bowel sounds, nondistended, soft, nontender Velasquez cath in place- blood tinged urine, no clots Extremities- no pretibial edema, no calf tenderness Neuro- alert, oriented x 3; no gross focal neurologic deficits Skin- warm & dry Results & Data Results & Data ([facility]) Vital Signs (Past 12 Hours) Vital Signs Temp Pulse Resp BP BP Pulse Ox 06/03/21 07:39 36.6 C 96 H 20 130/74 98 06/03/21 03:05 37.1 C 89 18 101/61 99 all noted and reviewed including below (1) Acute renal failure Acute renal failure type: unspecified Qualified Code(s): N17.9 - Acute kidney failure, unspecified
--- NOTE | 2021-06-03 17:00 | Discharge Summary ---
Date of Service June 03, 2021 Admission HPI Per Admitting Provider Chief Complaint: Bladder fullness, abnormal CAT scan outpatient setting Primary Care Provider: Dru Fritz MD This is a 60 yo M with PHM of Type 2 diabetes, PAD, L carotid stent placement at [facility] December 2020, chronic systolic heart failure, CKD 3, hypertension, BPH, tobacco use, history of CVA, insomnia and other medical problems listed below who presents with abnormal lab work and imaging from PCP. Patient has had ongoing urinary symptoms since December. Established with Dr. Novak of urology at [facility] for elevated PSA and MRI from this month revealed extensive tumor throughout the prostate gland with findings worrisome for extraprostatic extension to involve the bladder, anterior pelvic wall and seminal vesicles, as well as skeletal metastases. Started on bicalutamide and is due for biopsy in July when he is okayed by vascular surgery to come off of plavix for procedure. Had L carotid stent placed in December 2020. Endorses weight loss, poor appetite, urinary incontinence. Denies fever, chills, lightheadedness, headache, chest pain, SOB, nausea, vomiting, abdominal pain, dysuria, diarrhea or constipation. Admission Exam (Per Admitting) Constitutional Gen-AAO x 3, NAD, Afebrile, +BRB in rain Head-NCAT, EOMI, PERRLA, Anicteric Sclera, No Posterior Pharyngeal Erythema Neck-Supple, No JVD, No Thyromegaly, No Masses, No LAD, No Bruits Lungs-Clear to Auscultation Bilaterally, No Rales, No Rhonchi, No Wheezing, No Crepitus Chest-No S4, +S1, +S2, No S3, No Murmurs, No Rubs, No Gallops, No Ectopy Abdomen-Soft, Bowel Sounds Present, Tender, Non Distended, No Hepatomegaly, No Splenomegaly, No Palpable Masses, No Rebound, No Rigidity, No Guarding Musculoskeletal-Full Range of Motion Bilaterally, No CVAT Extremities-No Cyanosis, No Clubbing, No Edema Nuero-Cranial Nerves II-XII grossly intact, Motor WNL, DTRs WNL, Strength WNL, Non Focal Psych-Normal Mood Discharge Data Consultations 05/31/21 17:27 ED Decision to Admit Stat 05/31/21 20:48 Consult Urology Routine 06/01/21 08:20 Consult Nephrology Routine Hospital Course (1) Suspected malignant neoplasm: (2) Urinary tract obstruction: (3) Acute renal failure: per admitting service notes This is a 60 yo M with PHM of Type 2 diabetes, PAD, L carotid stent placement at [facility] December 2020, chronic systolic heart failure, CKD 3, hypertension, BPH, tobacco use, history of CVA, insomnia and other medical problems listed below who presents with abnormal lab work and imaging from PCP. Prostate Tumor Obstructive Uropathy Acute Renal failure, with Metabolic Acidosis Hematuria Recently established with Dr. Novak of urology at [facility] for elevated PSA MRI from this month revealed extensive tumor throughout the prostate gland with findings worrisome for extraprostatic extension to involve the bladder, anterior pelvic wall and seminal vesicles, as well as skeletal metastases Started on bicalutamide and is due for biopsy in July when he is okayed by vascular surgery to come off of plavix for procedure CT abd/pelvis wo con from [facility] earlier today with urinary bladder very distended nearly to the level of the umbilicus, with at least moderate bilateral hydroureteronephrosis, right worse than left Rain catheter placed in ED - draining mckeon red urine UA without evidence of infection Cr elevated at 4 in setting of obstruction (baseline ~ 1) Urologist consulted Rain catheter maintained, blood tinged likely from insertion of Rain hg monitored, stable at 8.6 x 2 days no clots per Rain catheter, draining well Crea gradually improved from 4 to 2.5 after Rain cath insertion HCO3 also improved from 16 to 22 with IV fluids Nephro consulted- Dr. Mcdonnell [facility] Sx notes reviewed and spoke with outpatient Urologist Urologist recommending to hold Plavix due to upcoming prostate biopsy Vascular Sx ok to hold Plavix, but start Aspirin 81mg po daily in light of Left Carotid Stent placement in December 2020 per Urologist, Aspirin can continued until prostate biopsy date 06/10/21 d/c home today repeat BMP on Jun 07, 2021 maintain Rain Cath until seen by Urologist next week (4) Elevated lipase: Lipase 656 Chronic pancreatitis visualized on outpatient CT a/p No N/V or abdominal pain, monitor (5) Metabolic acidosis: management per above (6) DM2 (diabetes mellitus, type 2): A1c 6.7 in March HOLD Metformin in light of acute renal failure resume accordingly pending repeat BMP as outpatient continue Jardiance (7) Chronic systolic heart failure: History of ischemic CM with EF 30%, improved to 43% on November 2020 echo Not on home diuretics -- euvolemic monitor (8) HTN (hypertension): HOLD Entresto in light of acute renal failure resume accordingly pending repeat BMP as outpatient continue Metoprolol (9) HLD (hyperlipidemia): Continue statin (10) Tobacco abuse: Cessation recommended Dispo: d/c home ff up with PCP in 1 week ff up with Urologist as scheduled next week ff up with [facility] in 2 weeks ff up with Maintenance Associate in 2 weeks plan of care discussed with patient in detail and at length all questions answered he is understanding, agreeable, comfortable with the plan of care
== END 2021-06-03 18:02 | disposition home or self-care (01) | DRG 683 ==
LOC: ED 14:44 → 2N 17:57 → SUATTDRO 17:57 → 2N 20:33
DX: I13.0 Hypertensive heart and chronic kidney disease with heart failure and stage 1 through stage 4 chronic kidney disease, or unspecified chronic kidney disease; E11.51 Type 2 diabetes mellitus with diabetic peripheral angiopathy without gangrene; K86.1 Other chronic pancreatitis; Z79.84 Long term (current) use of oral hypoglycemic drugs; N17.9 Acute kidney failure, unspecified; R33.8 Other retention of urine; F17.210 Nicotine dependence, cigarettes, uncomplicated; N32.0 Bladder-neck obstruction; E11.22 Type 2 diabetes mellitus with diabetic chronic kidney disease; Z95.828 Presence of other vascular implants and grafts; N13.4 Hydroureter; E78.5 Hyperlipidemia, unspecified; Z79.899 Other long term (current) drug therapy; E87.2 Acidosis; C79.11 Secondary malignant neoplasm of bladder; Z88.5 Allergy status to narcotic agent; N13.8 Other obstructive and reflux uropathy; C79.51 Secondary malignant neoplasm of bone; N40.1 Benign prostatic hyperplasia with lower urinary tract symptoms; C61 Malignant neoplasm of prostate; I50.22 Chronic systolic (congestive) heart failure; Z86.73 Personal history of transient ischemic attack (TIA), and cerebral infarction without residual deficits; N18.30 Chronic kidney disease, stage 3 unspecified

== ENCOUNTER 2024-01-11 12:21 | Inpatient (IN) ==
[2024-01-11] MEDS: SODIUM CHLORIDE 0.9% 1,000 ML IV SCH (13:05)
[2024-01-11 13:38] LABS: Hematocrit (blood only) 26.7 % (42.0-52.0); Hemoglobin 7.9 g/dl (14.0-18.0); Mean Corpuscular Hgb Conc 29.6 g/dL (32.0-36.0); Mean Corpuscular Volume 98.2 fL (80.0-100.0); Mean Platelet Volume 8.5 fL (9.4-12.4); Nucleated RBC # (auto) 0.04 K/uL (0.00-0.12); Nucleated RBC % (auto) 0.6 %; Platelet Count 347 K/uL (130-400); RDW Coefficient of Variation 17.8 % (11.5-14.5); RDW Standard Deviation 63.8 fL (36.4-46.3); Red Blood Count 2.72 M/uL (4.70-6.10); White Blood Count 7.21 K/ul (4.8-10.8)
[2024-01-11 13:59] LABS: Albumin Level 3.5 gm/dl (3.4-5.0); BUN Creatinine Ratio 18.6 (10-20); Bilirubin Direct 0.1 mg/dl (0-0.2); Bilirubin,Total 0.3 mg/dl (0.2-1.0); Calcium 6.7 mg/dl (8.6-10.3); Creatinine Clr Calc Pharmacy 43.3 ml/min; Est GFR (African American) 58.6 ml/min; Est GFR (Non-African American) 50.5 ml/min; Magnesium 2.8 mg/dl (1.7-2.4); Potassium 3.8 mmol/L (3.5-5.1); Total Protein 7.2 gm/dl (6.0-8.3)
[2024-01-11 14:03] LABS: Troponin I High Sensitivity 34.4 pg/ml (0-20)
--- NOTE | 2024-01-11 14:09 | XRay Report ---
XR chest 1V portable CLINICAL HISTORY: Sepsis TECHNIQUE: Single frontal radiograph of the chest was obtained. Comparison: Comparison is made to chest radiograph 05/31/2021 FINDINGS: No lines and tubes are seen. The cardiomediastinal silhouette is normal. The lungs are clear. No evid ence of pleural effusion or pneumothorax. IMPRESSION: No acute abnormalities and in particular no radiographic evidence of pneumonia. ACT 112: Negative or not required by law. Electronically signed by: Bertrand Johnson M.D. 01/11/2024 2:07 PM
[2024-01-11 14:13] LABS: Adenovirus PCR Not Detected (NotDetected); Bordetella parapertussis PCR Not Detected (NotDetected); Bordetella pertussis PCR Not Detected (NotDetected); Chlamydia pneumoniae PCR Not Detected (NotDetected); Coronavirus 229E PCR Not Detected (NotDetected); Coronavirus CoV-2 (COVID19)PCR Not Detected (NotDetected); Coronavirus HKU1 PCR Not Detected (NotDetected); Coronavirus NL63 PCR Not Detected (NotDetected); Coronavirus OC43PCR Not Detected (NotDetected); Human Metapneumovirus PCR Not Detected (NotDetected); Influenza A PCR Not Detected (NotDetected); Influenza B PCR Not Detected (NotDetected); Mycoplasma pneumoniae PCR Not Detected (NotDetected); Parainfluenza Virus 1 PCR Not Detected (NotDetected); Parainfluenza Virus 2 PCR Not Detected (NotDetected); Parainfluenza Virus 3 PCR Not Detected (NotDetected); Parainfluenza Virus 4 PCR Not Detected (NotDetected); Respiratory Syncytial VirusPCR Not Detected (NotDetected); Rhinovirus/Enterovirus PCR Not Detected (NotDetected)
[2024-01-11 14:18] LABS: Basophils # (auto) 0.04 K/uL (0.00-0.20); Basophils % (auto) 0.6 %; Eosinophils # (auto) 0.03 K/uL (0.00-0.50); Eosinophils % (auto) 0.4 %; Immature Granulocytes # (auto) 0.47 K/uL (0.01-0.20); Immature Granulocytes % (auto) 6.5 %; Lymphocytes % (auto) 11.1 %; Monocytes # (auto) 0.36 K/uL (0.11-0.59); Neutrophils # (auto) 5.51 K/uL (1.40-6.50); Neutrophils % (auto) 76.4 %; Tear Drop Cells 1+
[2024-01-11] MEDS: SODIUM CHLORIDE 0.9% 1,000 ML IV ONE (15:52)
[2024-01-11] MEDS: traMADol HCL 50 MG TABLET PO STA (15:52)
[2024-01-11] MEDS: cefTRIAXone SODIUM 2,000 MG/50 ML BAG IV STA (16:32)
--- NOTE | 2024-01-11 16:50 | Emergency Department Note ---
Impression & Plan Elevated troponin, Acute dehydration, Adult failure to thrive ED Provider Note NAME: MARÍA ELENA VIRGEN AGE: 63 SEX: M : 1960 ARRIVES VIA: Walk-In INFORMANT: Patient, ED PROVIDER(S): Sophia Queen MD CHIEF COMPLAINT: Cancer, dehydration HPI: This is a 63-year-old male with history of metastatic prostate cancer presenting for concerns of dehydration and weakness. Patient is with his who states that he has not been eating for the past few days to weeks. He recently received a new cancer treatment, infusion therapy for his prostate cancer. He had blood this morning showed he may have been dehydrated. He has a low blood pressure as well. He has not felt any fevers or chills however he does note that he has had difficulty urinating with pain when he urinates specifically as well. ROS: See above HPI for pertinent positives & negatives. A total of 10 systems reviewed and were otherwise negative. PHYSICAL EXAMINATION: General: Thin, chronically ill-appearing Head: Normocephalic and atraumatic Eyes: Normal inspection, extraocular muscles intact Ear, nose, throat: Normal external exam Neck: Normal range of motion Respiratory: lungs clear to auscultation bilaterally Cardiovascular: Regular rate/rhythm, no murmur GI: soft, nontender, no guarding or rebound Extremities: nontender, moves all extremities Neuro: The patient awake and alert, appropriately conversive, no focal deficits, symmetric faces Skin: Warm, dry, and intact MEDICAL DECISION MAKING: This is 63-year male history metastatic prostate cancer presenting for concern of dehydration/weakness. Patient is initially hypotensive, borderline febrile and mildly tachycardic. Will do sepsis workup initially. Consider dehydration as well. Patient is no chest pain, shortness of breath. -ECG independently interpreted by me with sinus tachycardia, rate of 107, normal axis, normal KS, normal QRS, normal QTc, no ST segment elevations consistent with STEMI criteria -Chest Xray independently interpreted by me showing no pneumothorax, focal opacity, or pleural effusions. -Blood was reviewed showing a hemoglobin of 7.9, significantly down from previous value. Otherwise creatinine 1.45, lower than previous value. Troponin is elevated at 34. No viral etiology is noted so far. Still awaiting urine sample as patient complains of dysuria. Will give ceftriaxone in the meantime for suspected infection without clear source. -Otherwise patient blood pressure has improved with fluid resuscitation. -Will require admission due to elevated troponin, suspected sepsis, anemia, failure to thrive Differential diagnosis: Sepsis, dehydration, UTI ER treatment provided: See below Diagnostics interpreted by me: ECG: See above Cardiac Monitoring: An order was placed for continuous cardiac monitoring. The monitor shows a rate of 80 with sinus rhythm. Laboratory studies: As stated above and show below. Imaging studies: See below. Past Med/Surg History Medical History Head injury As child Stroke Prostate cancer Biopsy on 06/10/21 Suspected malignant neoplasm Chronic systolic heart failure PAD (peripheral artery disease) BPH with obstruction/lower urinary tract symptoms Prostate cancer screening Tobacco abuse HLD (hyperlipidemia) HTN (hypertension) DM2 (diabetes mellitus, type 2) Surgical History History of left common carotid artery stent placement Family History Mother , in her 80s Myocardial infarction H/O cardiac surgery Diabetes Father , 58yo Myocardial infarction Lung disease From working in [employer]; Brother No problems noted. Brother No problems noted. Brother No problems noted. Brother No problems noted. Brother No problems noted. Daughter No problems noted. Son No problems noted. Son Diabetes Other Heart disease Hypertension Social History Smoking Status: Never smoker Tobacco Type: Cigarettes packs per day: 0.5; Cigarettes Per Day: Less than 1 PPD x 47yrs; Do You Dip or Chew Tobacco: No; Hx Alcohol Use: Yes (1-2 beers/day;) Alcohol type: beer Alcohol Intake Frequency: Monthly or Less Hx Substance Use: Yes (Smokes marijuana daily ) Prescribed Medications: Marijuana Preferred Language: Chinese Communication Ability: Effective Visual Impairment: No Limitations Hearing Ability: Normal Study Assistant Required: No Beliefs That Will Affect Care: None marital status: Current Living Situation: Spouse current occupational status: retired Feels Safe at Home: Yes Diet: regular caffeine: No during the past year weight has: decreased > 10 lbs Assistive Devices: None Allergies Allergies Allergy/AdvReac Type Severity Reaction Status Date / Time amoxicillin [From Augmentin] AdvReac Intermediate DIZZINESS/C Verified 01/11/24 16:27 ONFUSION clavulanic acid AdvReac Intermediate DIZZINESS/C Verified 01/11/24 16:27 [From Augmentin] ONFUSION codeine AdvReac Intermediate Gastrointestinal Verified 01/11/24 16:27 Upset Home Meds Home Medications Medication Instructions Recorded Confirmed atorvastatin 80 mg tablet 80 mg PO QAM 04/23/19 01/11/24 alfuzosin 10 mg tablet,extended 10 mg PO QAM 05/31/21 01/11/24 release 24 hr (Uroxatral) empagliflozin 25 mg tablet 25 mg PO QAM 05/31/21 01/11/24 (Jardiance) acetaminophen 500 mg tablet 500 - 1,000 mg PO Q6H PRN Pain 12/06/22 01/11/24 (Tylenol Extra Strength) clopidogrel 75 mg tablet 75 mg PO DAILY 12/06/22 01/11/24 denosumab 120 mg/1.7 mL (70 mg/mL) 120 mg subcut MONTHLY 12/06/22 01/11/24 subcutaneous solution (Xgeva) linagliptin 5 mg tablet (Tradjenta) 5 mg PO DAILY 12/06/22 01/11/24 sacubitril 24 mg-valsartan 26 mg 1 tab PO BID 12/06/22 01/11/24 tablet (Entresto) tramadol 50 mg tablet 150 mg PO BID PRN pain 08/01/23 01/11/24 morphine 15 mg immediate release 15 mg PO BID PRN Pain 01/11/24 01/11/24 tablet ondansetron HCl 8 mg tablet 8 mg PO DIRECTED PRN Nausea 01/11/24 01/11/24 potassium phosphate, monobasic 500 500 mg PO DAILY 01/11/24 01/11/24 mg soluble tablet (K-Phos Original) prochlorperazine maleate 10 mg 10 mg PO DIRECTED PRN Nausea 01/11/24 01/11/24 tablet Previous Rx's Medication Instructions Recorded aspirin 81 mg tablet,delayed 81 mg PO QAM #30 tabs 06/03/21 release Results & Data (ED) Vital Signs Vital Signs - 24 hr 01/11/24 12:36 01/11/24 12:50 01/11/24 13:00 Temperature 37.6 C H Temperature Source Oral Pulse Rate 128 H 107 H 108 H Pulse Rate [Apical] Pulse Rhythm Irregular Pulse Strength Normal Respiratory Rate 24 24 Respiratory Effort / Characteristics Respiratory Depth Blood Pressure 92/61 L 119/74 Blood Pressure [Right Arm] Blood Pressure Mean 71 89 Blood Pressure Mean [Right Arm] Blood Pressure Position Sitting Pulse Oximetry 98 97 Oxygen Delivery Method Room Air Sepsis Recent Fever Within 48 Hours Yes Sepsis New/Unexplained Change in Mental Status No Sepsis Action Taken by Nursing No Action Required 01/11/24 13:08 01/11/24 13:15 01/11/24 13:30 Temperature Temperature Source Pulse Rate 108 H 91 H 113 H Pulse Rate [Apical] Pulse Rhythm Pulse Strength Respiratory Rate 20 28 H 15 Respiratory Effort / Characteristics Respiratory Depth Blood Pressure 110/67 123/59 L Blood Pressure [Right Arm] Blood Pressure Mean 81 80 Blood Pressure Mean [Right Arm] Blood Pressure Position Pulse Oximetry 97 98 99 Oxygen Delivery Method Room Air Sepsis Recent Fever Within 48 Hours Sepsis New/Unexplained Change in Mental Status Sepsis Action Taken by Nursing 01/11/24 13:45 01/11/24 14:00 01/11/24 14:15 Temperature Temperature Source Pulse Rate 86 84 94 H Pulse Rate [Apical] Pulse Rhythm Pulse Strength Respiratory Rate 20 21 21 Respiratory Effort / Characteristics Respiratory Depth Blood Pressure 121/71 123/72 130/74 Blood Pressure [Right Arm] Blood Pressure Mean 87 89 92 Blood Pressure Mean [Right Arm] Blood Pressure Position Pulse Oximetry 99 99 99 Oxygen Delivery Method Sepsis Recent Fever Within 48 Hours Sepsis New/Unexplained Change in Mental Status Sepsis Action Taken by Nursing 01/11/24 14:30 01/11/24 14:45 01/11/24 15:00 Temperature Temperature Source Pulse Rate 78 79 79 Pulse Rate [Apical] Pulse Rhythm Pulse Strength Respiratory Rate 17 19 18 Respiratory Effort / Characteristics Respiratory Depth Blood Pressure 127/72 117/81 129/74 Blood Pressure [Right Arm] Blood Pressure Mean 90 93 92 Blood Pressure Mean [Right Arm] Blood Pressure Position Pulse Oximetry 99 97 98 Oxygen Delivery Method Sepsis Recent Fever Within 48 Hours Sepsis New/Unexplained Change in Mental Status Sepsis Action Taken by Nursing 01/11/24 15:15 01/11/24 15:30 01/11/24 15:45 Temperature Temperature Source Pulse Rate 78 79 85 Pulse Rate [Apical] Pulse Rhythm Pulse Strength Respiratory Rate 16 20 15 Respiratory Effort / Characteristics Respiratory Depth Blood Pressure 131/78 123/71 120/75 Blood Pressure [Right Arm] Blood Pressure Mean 95 88 90 Blood Pressure Mean [Right Arm] Blood Pressure Position Pulse Oximetry 97 95 Oxygen Delivery Method Sepsis Recent Fever Within 48 Hours Sepsis New/Unexplained Change in Mental Status Sepsis Action Taken by Nursing 01/11/24 16:00 01/11/24 16:15 01/11/24 16:27 Temperature Temperature Source Pulse Rate 78 79 Pulse Rate [Apical] 78 Pulse Rhythm Pulse Strength Respiratory Rate 18 21 22 Respiratory Effort / Characteristics Non-Labored Spontaneous Respiratory Depth Normal Blood Pressure 146/76 H 119/66 Blood Pressure [Right Arm] 119/66 Blood Pressure Mean 99 83 Blood Pressure Mean [Right Arm] 83 Blood Pressure Position Pulse Oximetry 99 98 99 Oxygen Delivery Method Room Air Sepsis Recent Fever Within 48 Hours Sepsis New/Unexplained Change in Mental Status Sepsis Action Taken by Nursing 01/11/24 16:30 01/11/24 16:45 01/11/24 16:55 Temperature Temperature Source Pulse Rate 86 77 80 Pulse Rate [Apical] Pulse Rhythm Pulse Strength Respiratory Rate 19 17 Respiratory Effort / Characteristics Respiratory Depth Blood Pressure 119/87 123/67 Blood Pressure [Right Arm] Blood Pressure Mean 97 85 Blood Pressure Mean [Right Arm] Blood Pressure Position Pulse Oximetry 99 99 Oxygen Delivery Method Sepsis Recent Fever Within 48 Hours Sepsis New/Unexplained Change in Mental Status Sepsis Action Taken by Nursing 01/11/24 17:00 01/11/24 17:15 Temperature Temperature Source Pulse Rate 78 80 Pulse Rate [Apical] Pulse Rhythm Pulse Strength Respiratory Rate 18 19 Respiratory Effort / Characteristics Respiratory Depth Blood Pressure 111/75 120/69 Blood Pressure [Right Arm] Blood Pressure Mean 87 86 Blood Pressure Mean [Right Arm] Blood Pressure Position Pulse Oximetry 98 98 Oxygen Delivery Method Sepsis Recent Fever Within 48 Hours Sepsis New/Unexplained Change in Mental Status Sepsis Action Taken by Nursing Laboratory Data 01/11/24 13:10 01/11/24 13:10 Lab Results 01/11/24 01/11/24 01/11/24 Range/Units 12:00 13:10 15:08 WBC 7.21 (4.8-10.8) K/ul RBC 2.72 L (4.70-6.10) M/uL Hgb 7.9 L (14.0-18.0) g/dl Hct 26.7 L (42.0-52.0) % MCV 98.2 (80.0-100.0) fL MCH 29.0 (25.0-34.0) pg MCHC 29.6 L (32.0-36.0) g/dL RDW Std Deviation 63.8 H (36.4-46.3) fL RDW Coeff of Clara 17.8 H (11.5-14.5) % Plt Count 347 (130-400) K/uL MPV 8.5 L (9.4-12.4) fL Immature Gran % (Auto) 6.5 % Neut % (Auto) 76.4 % Lymph % (Auto) 11.1 % [place] % (Auto) 5.0 % Eos % (Auto) 0.4 % Baso % (Auto) 0.6 % Neut # (Auto) 5.51 (1.40-6.50) K/uL Lymph # (Auto) 0.80 L (1.20-3.40) K/uL [place] # (Auto) 0.36 (0.11-0.59) K/uL Eos # (Auto) 0.03 (0.00-0.50) K/uL Baso # (Auto) 0.04 (0.00-0.20) K/uL Immature Gran # (Auto) 0.47 H (0.01-0.20) K/uL Absolute Nucleated RBC 0.04 (0.00-0.12) K/uL Nucleated RBC % (auto) 0.6 % Tear Drop Cells 1+ Sodium 145 (136-145) mmol/L Potassium 3.8 (3.5-5.1) mmol/L Chloride 112 H (98-107) mmol/L Carbon Dioxide 22 (21-32) mmol/L Anion Gap 11 (3-11) BUN 27 H (6-23) mg/dl Creatinine 1.45 H (0.6-1.4) mg/dl Est Cr Clr Drug Dosing 43.3 ml/min Est GFR ( Amer) 58.6 ml/min Est GFR (Non-Af Amer) 50.5 ml/min BUN/Creatinine Ratio 18.6 (10-20) Glucose 182 H (70-99(Fasting)) mg/dl Lactate 1.1 (0.4-2.0) mmol/L Calcium 6.7 L (8.6-10.3) mg/dl Magnesium 2.8 H (1.7-2.4) mg/dl Total Bilirubin 0.3 (0.2-1.0) mg/dl Direct Bilirubin 0.1 (0-0.2) mg/dl AST 15 (13-39) U/L ALT 8 (7-52) U/L Alkaline Phosphatase 348 H (34-104) U/L Troponin I High Sens 34.4 H 30.0 H (0-20) pg/ml Total Protein 7.2 (6.0-8.3) gm/dl Albumin 3.5 (3.4-5.0) gm/dl Procalcitonin 0.16 (0-0.5) ng/ml Urine Color Urine Appearance (Clear) Urine pH (4.5-7.5) Ur Specific [place] (1.000-1.030) Urine Protein (Negative) Urine Glucose (UA) (Negative) Urine Ketones (Negative) Urine Blood (Negative) Urine Nitrite (Negative) Urine Bilirubin (Negative) Urine Urobilinogen (Negative) Ur Leukocyte Esterase (Negative) Urine WBC (Auto) (0-5) /hpf Urine RBC (Auto) (0-2) /hpf U Hyaline Cast (Auto) (0-2) /lpf U Epithel Cells (Auto) (0-2) /hpf Urine Bacteria (Auto) (None Seen) Adenovirus (PCR) Not Detected (NotDetected) B. pertussis DNA (PCR) Not Detected (NotDetected) B.parapertussis DNA PCR Not Detected (NotDetected) C. pneumoniae DNA (PCR) Not Detected (NotDetected) Coronavirus OC43 (PCR) Not Detected (NotDetected) Coronavirus HKU1 (PCR) Not Detected (NotDetected) Coronavirus 229E (PCR) Not Detected (NotDetected) SARS-CoV-2 (PCR) Not Detected (NotDetected) Coronavirus NL63 (PCR) Not Detected (NotDetected) Human Metapneumovir PCR Not Detected (NotDetected) Influenza Type A (PCR) Not Detected (NotDetected) Influenza Type B (PCR) Not Detected (NotDetected) M. pneumoniae (PCR) Not Detected (NotDetected) Parainfluenza 1 (PCR) Not Detected (NotDetected) Parainfluenza 2 (PCR) Not Detected (NotDetected) Parainfluenza 3 (PCR) Not Detected (NotDetected) Parainfluenza 4 (PCR) Not Detected (NotDetected) RSV (PCR) Not Detected (NotDetected) Entero/Rhino (PCR) Not Detected (NotDetected) 01/11/24 Range/Units 17:55 WBC (4.8-10.8) K/ul RBC (4.70-6.10) M/uL Hgb (14.0-18.0) g/dl Hct (42.0-52.0) % MCV (80.0-100.0) fL MCH (25.0-34.0) pg MCHC (32.0-36.0) g/dL RDW Std Deviation (36.4-46.3) fL RDW Coeff of Clara (11.5-14.5) % Plt Count (130-400) K/uL MPV (9.4-12.4) fL Immature Gran % (Auto) % Neut % (Auto) % Lymph % (Auto) % [place] % (Auto) % Eos % (Auto) % Baso % (Auto) % Neut # (Auto) (1.40-6.50) K/uL Lymph # (Auto) (1.20-3.40) K/uL [place] # (Auto) (0.11-0.59) K/uL Eos # (Auto) (0.00-0.50) K/uL Baso # (Auto) (0.00-0.20) K/uL Immature Gran # (Auto) (0.01-0.20) K/uL Absolute Nucleated RBC (0.00-0.12) K/uL Nucleated RBC % (auto) % Tear Drop Cells Sodium (136-145) mmol/L Potassium (3.5-5.1) mmol/L Chloride (98-107) mmol/L Carbon Dioxide (21-32) mmol/L Anion Gap (3-11) BUN (6-23) mg/dl Creatinine (0.6-1.4) mg/dl Est Cr Clr Drug Dosing ml/min Est GFR ( Amer) ml/min Est GFR (Non-Af Amer) ml/min BUN/Creatinine Ratio (10-20) Glucose (70-99(Fasting)) mg/dl Lactate (0.4-2.0) mmol/L Calcium (8.6-10.3) mg/dl Magnesium (1.7-2.4) mg/dl Total Bilirubin (0.2-1.0) mg/dl Direct Bilirubin (0-0.2) mg/dl AST (13-39) U/L ALT (7-52) U/L Alkaline Phosphatase (34-104) U/L Troponin I High Sens (0-20) pg/ml Total Protein (6.0-8.3) gm/dl Albumin (3.4-5.0) gm/dl Procalcitonin (0-0.5) ng/ml Urine Color Yellow Urine Appearance Clear (Clear) Urine pH 6.0 (4.5-7.5) Ur Specific [place] 1.021 (1.000-1.030) Urine Protein Trace H (Negative) Urine Glucose (UA) 3+ H (Negative) Urine Ketones Trace H (Negative) Urine Blood Negative (Negative) Urine Nitrite Negative (Negative) Urine Bilirubin Negative (Negative) Urine Urobilinogen Negative (Negative) Ur Leukocyte Esterase Negative (Negative) Urine WBC (Auto) 0-5 (0-5) /hpf Urine RBC (Auto) 0-2 (0-2) /hpf U Hyaline Cast (Auto) 0-2 (0-2) /lpf U Epithel Cells (Auto) 0-2 (0-2) /hpf Urine Bacteria (Auto) None Seen (None Seen) Adenovirus (PCR) (NotDetected) B. pertussis DNA (PCR) (NotDetected) B.parapertussis DNA PCR (NotDetected) C. pneumoniae DNA (PCR) (NotDetected) Coronavirus OC43 (PCR) (NotDetected) Coronavirus HKU1 (PCR) (NotDetected) Coronavirus 229E (PCR) (NotDetected) SARS-CoV-2 (PCR) (NotDetected) Coronavirus NL63 (PCR) (NotDetected) Human Metapneumovir PCR (NotDetected) Influenza Type A (PCR) (NotDetected) Influenza Type B (PCR) (NotDetected) M. pneumoniae (PCR) (NotDetected) Parainfluenza 1 (PCR) (NotDetected) Parainfluenza 2 (PCR) (NotDetected) Parainfluenza 3 (PCR) (NotDetected) Parainfluenza 4 (PCR) (NotDetected) RSV (PCR) (NotDetected) Entero/Rhino (PCR) (NotDetected) Administered Medications Lactated Ringer's (Lr) 1,000 mls @ 80 mls/hr IV .[id number] GENIA Stop: 01/13/24 07:44 Last Admin: 01/11/24 18:27 Dose: 80 mls/hr Documented By: CPB Discontinued Medications Sodium Chloride (Nss) 1,000 mls @ 999 mls/hr IV .Q1H1M GENIA Stop: 01/11/24 15:00 Last Infusion: 01/11/24 15:54 Dose: Infused Documented By: Admin: 01/11/24 14:13 Dose: 999 mls/hr Documented By: Infusion: 01/11/24 14:06 Dose: Infused Documented By: Admin: 01/11/24 13:05 Dose: 999 mls/hr Documented By: CPB Sodium Chloride (Nss) 1,000 mls @ 999 mls/hr IV .Q1H1M ONE Stop: 01/11/24 16:34 Last Infusion: 01/11/24 17:07 Dose: Infused Documented By: Admin: 01/11/24 15:52 Dose: 999 mls/hr Documented By: CPB Ceftriaxone Sodium (Rocephin) 2,000 mg in 50 mls @ 100 mls/hr IV NOW STA Stop: 01/11/24 16:46 Last Infusion: 01/11/24 17:07 Dose: Infused Documented By: Admin: 01/11/24 16:32 Dose: 100 mls/hr Documented By: [facility] Tramadol HCl (Tramadol Hcl 50 Mg Tablet) 100 mg PO NOW STA Stop: 01/11/24 15:44 Last Admin: 01/11/24 15:52 Dose: 100 mg Documented By: CPB Imaging Data Radiologist's Impression: Chest X-Ray 01/11/24 12:49 XR chest 1V portable CLINICAL HISTORY: Sepsis TECHNIQUE: Single frontal radiograph of the chest was obtained. Comparison: Comparison is made to chest radiograph 05/31/2021 FINDINGS: No lines and tubes are seen. The cardiomediastinal silhouette is normal. The lungs are clear. No evidence of pleural effusion or pneumothorax. IMPRESSION: No acute abnormalities and in particular no radiographic evidence of pneumonia. ACT 112: Negative or not required by law. Electronically signed by: Bertrand Johnson M.D. 01/11/2024 2:07 PM Discharge Plan Visit Data Chief Complaint: Referred by Doctor Stated Complaint: DEHYDRATION , HIGH BP ED Provider: Sophia Queen Discharge Problem: Elevated troponin, Acute dehydration, Adult failure to thrive Forms Stand Alone Forms: My [facility] [address] [place] Prescriptions Prescriptions: No Action acetaminophen [Tylenol Extra Strength] 500 mg tablet 500 - 1,000 mg PO Q6H PRN (Reason: Pain) Xgeva 120 mg/1.7 mL (70 mg/mL) solution 120 mg subcut MONTHLY Rx Instructions: Has appointment next week Entresto 24-26 mg tablet 1 tab PO BID Tradjenta 5 mg tablet 5 mg PO DAILY clopidogrel 75 mg tablet 75 mg PO DAILY tramadol 50 mg tablet 150 mg PO BID PRN (Reason: pain) atorvastatin 80 mg Tablet 80 mg PO QAM alfuzosin [Uroxatral] 10 mg tablet extended release 24 hr 10 mg PO QAM Jardiance 25 mg tablet 25 mg PO QAM aspirin 81 mg Tablet,Delayed Release (Dr/Ec) 81 mg PO QAM Qty: 30 0RF Rx Instructions: ALWAYS WITH FOOD ondansetron HCl 8 mg Tablet 8 mg PO DIRECTED PRN (Reason: Nausea) prochlorperazine maleate 10 mg tablet 10 mg PO DIRECTED PRN (Reason: Nausea) morphine 15 mg tablet 15 mg PO BID PRN (Reason: Pain) Rx Instructions: Some times takes 1/2 tab K-Phos Original 500 mg tablet,soluble 500 mg PO DAILY Referrals Referrals: Dru Fritz MD [Primary Care Provider] -
--- NOTE | 2024-01-11 18:14 | History & Physical Report ---
Date of Service January 11, 2024 Assessment & Plan (1) Prostate cancer metastatic to bone: Plan: History of metastatic prostate cancer Received Pluvicto on last Sunday in [facility], [place] Has been complaining of progressive weakness since then Weakness and shortness of breath is worse as of today (2) Generalized weakness: Plan: Likely secondary to chemotherapy Complicated by dehydration And UTI (3) Acute anemia: Plan: Hemoglobin went down to 7.9 from 13.1 in August Hemolysis secondary to chemotherapy No evidence of hematemesis and/or melena No other bleeding Will monitor and may need blood transfusion (4) UTI due to extended-spectrum beta lactamase (ESBL) producing Escherichia coli: Plan: Has burning with urination UA has been sent for culture and sensitivity No evidence of sepsis Started with intravenous ceftriaxone and will continue (5) Acute renal failure: Plan: BUN and creatinine are elevated likely secondary to not being eating or drinking Has history of systolic heart failure but no evidence of fluid overload Will continue with LR at a rate of 80 MLS per hour Advised to drink more fluid Will check PRP and electrolytes tomorrow (6) DM2 (diabetes mellitus, type 2): Plan: Will hold his oral medications Will place him on a sliding scale (7) Chronic systolic heart failure: Plan: No evidence of fluid overload Will give cautious amount of intravenous fluid Other significant medical conditions remained stable DVT prophylaxis SCDs for now Continue aspirin and Plavix CODE STATUS Full code History of Present Illness Chief Complaint: Increasing weakness and tiredness with shortness of breath on minimal exertion for the last 1 week Primary Care Provider: Dru Fritz MD He is a 63-year-old male with significant past medical history of metastatic prostate cancer, chronic systolic failure, diabetes type 2, hypertension and hyperlipidemia apparently has had chemotherapy with Pluvicto in [place] 1 week ago. He has been complaining of increasing weakness, decreasing appetite and increasing lethargy with shortness of breath on minimal exertion for the last 1 week. No fever and or chills but does have burning with micturition. He was brought into ER today with increasing symptoms. Noted to have possible UTI without any sepsis and acute renal failure likely secondary to dehydration. His hemoglobin is dropped to 7.9 from 13.1 from August. He denies any chest pain, palpitation, denies any cough and/or shortness of breath at rest. No abdominal pain, nausea and or vomiting. he will be admitted to medical telemetry unit for continued care Allergies Allergy/AdvReac Type Severity Reaction Status Date / Time amoxicillin [From Augmentin] AdvReac Intermediate DIZZINESS/C Verified 01/11/24 16:27 ONFUSION clavulanic acid AdvReac Intermediate DIZZINESS/C Verified 01/11/24 16:27 [From Augmentin] ONFUSION codeine AdvReac Intermediate Gastrointestinal Verified 01/11/24 16:27 Upset Home Medications Medication Instructions Recorded Confirmed Type atorvastatin 80 mg tablet 80 mg PO QAM 04/23/19 01/11/24 History alfuzosin 10 mg tablet,extended 10 mg PO QAM 05/31/21 01/11/24 History release 24 hr (Uroxatral) empagliflozin 25 mg tablet 25 mg PO QAM 05/31/21 01/11/24 History (Jardiance) aspirin 81 mg tablet,delayed 81 mg PO QAM #30 tabs 06/03/21 01/11/24 Rx release acetaminophen 500 mg tablet 500 - 1,000 mg PO Q6H PRN Pain 12/06/22 01/11/24 History (Tylenol Extra Strength) clopidogrel 75 mg tablet 75 mg PO DAILY 12/06/22 01/11/24 History denosumab 120 mg/1.7 mL (70 mg/mL) 120 mg subcut MONTHLY 12/06/22 01/11/24 History subcutaneous solution (Xgeva) linagliptin 5 mg tablet (Tradjenta) 5 mg PO DAILY 12/06/22 01/11/24 History sacubitril 24 mg-valsartan 26 mg 1 tab PO BID 12/06/22 01/11/24 History tablet (Entresto) tramadol 50 mg tablet 150 mg PO BID PRN pain 08/01/23 01/11/24 History morphine 15 mg immediate release 15 mg PO BID PRN Pain 01/11/24 01/11/24 History tablet ondansetron HCl 8 mg tablet 8 mg PO DIRECTED PRN Nausea 01/11/24 01/11/24 History potassium phosphate, monobasic 500 500 mg PO DAILY 01/11/24 01/11/24 History mg soluble tablet (K-Phos Original) prochlorperazine maleate 10 mg 10 mg PO DIRECTED PRN Nausea 01/11/24 01/11/24 History tablet Past Med/Surg History Medical History Head injury As child Stroke Prostate cancer Biopsy on 06/10/21 Suspected malignant neoplasm Chronic systolic heart failure PAD (peripheral artery disease) BPH with obstruction/lower urinary tract symptoms Prostate cancer screening Tobacco abuse HLD (hyperlipidemia) HTN (hypertension) DM2 (diabetes mellitus, type 2) Surgical History History of left common carotid artery stent placement Family History Mother , in her 80s Myocardial infarction H/O cardiac surgery Diabetes Father , 58yo Myocardial infarction Lung disease From working in [employer]; Brother No problems noted. Brother No problems noted. Brother No problems noted. Brother No problems noted. Brother No problems noted. Daughter No problems noted. Son No problems noted. Son Diabetes Other Heart disease Hypertension Social History Smoking Status: Never smoker Tobacco Type: Cigarettes packs per day: 0.5; Cigarettes Per Day: Less than 1 PPD x 47yrs; Do You Dip or Chew Tobacco: No; Hx Alcohol Use: Yes (1-2 beers/day;) Alcohol type: beer Alcohol Intake Frequency: Monthly or Less Hx Substance Use: Yes (Smokes marijuana daily ) Prescribed Medications: Marijuana Preferred Language: Moldovan Communication Ability: Effective Visual Impairment: No Limitations Hearing Ability: Normal Change Lead Required: No Beliefs That Will Affect Care: None marital status: Current Living Situation: Spouse current occupational status: retired Feels Safe at Home: Yes Diet: regular caffeine: No during the past year weight has: decreased > 10 lbs Assistive Devices: None Review of Systems Review of Systems: All systems reviewed and are unremarkable except as noted below Neurologic: Generalized weakness Physical Exam Physical Exam: Lying in bed without any acute distress Constitutional: + ill appearing and average body habitus Eyes: PERRL, conjunctivae normal, anicteric sclerae ENMT: external ear and nose normal, oropharynx normal Neck: trachea midline, no thyromegaly Respiratory: no respiratory distress Auscultation: lungs clear to auscultation bilaterally Cardiovascular: Rate/Rhythm: regular rate and regular rhythm; not tachycardic Heart Sounds: normal S1, normal S2 and + murmur Extremities: no edema Gastrointestinal (Abdomen): Inspection/Auscultation: normal bowel sounds; abdomen not distended Percussion/Palpation: + abdomen tender (Mildly tender hypogastrium) and abdomen soft Musculoskeletal: No acute arthritis involving any of the joint Neurologic: normal touch/pain/proprioception and moves all extremities; no focal motor deficits Generally very weak and lethargic Lymphatic: no cervical or axillary lymphadenopathy Results & Data Results & Data Vital Signs (Past 12 Hours) Vital Signs Temp Pulse Pulse Resp BP BP Pulse Ox 01/11/24 17:15 80 19 120/69 98 01/11/24 17:00 78 18 111/75 98 01/11/24 16:55 80 01/11/24 16:45 77 17 123/67 99 01/11/24 16:30 86 19 119/87 99 01/11/24 16:27 78 22 119/66 99 01/11/24 16:15 79 21 119/66 98 01/11/24 16:00 78 18 146/76 H 99 01/11/24 15:45 85 15 120/75 01/11/24 15:30 79 20 123/71 95 01/11/24 15:15 78 16 131/78 97 01/11/24 15:00 79 18 129/74 98 01/11/24 14:45 79 19 117/81 97 01/11/24 14:30 78 17 127/72 99 01/11/24 14:15 94 H 21 130/74 99 01/11/24 14:00 84 21 123/72 99 01/11/24 13:45 86 20 121/71 99 01/11/24 13:30 113 H 15 123/59 L 99 01/11/24 13:15 91 H 28 H 110/67 98 01/11/24 13:08 108 H 20 97 01/11/24 13:00 108 H 24 119/74 97 01/11/24 12:50 107 H 01/11/24 12:36 37.6 C H 128 H 24 92/61 L 98 O2 Del Method 01/11/24 17:15 01/11/24 17:00 01/11/24 16:55 01/11/24 16:45 01/11/24 16:30 01/11/24 16:27 Room Air 01/11/24 16:15 01/11/24 16:00 01/11/24 15:45 01/11/24 15:30 01/11/24 15:15 01/11/24 15:00 01/11/24 14:45 01/11/24 14:30 01/11/24 14:15 01/11/24 14:00 01/11/24 13:45 01/11/24 13:30 01/11/24 13:15 01/11/24 13:08 Room Air 01/11/24 13:00 01/11/24 12:50 01/11/24 12:36 Room Air Laboratory Results Short CBC 01/11/24 Range/Units 13:10 WBC 7.21 (4.8-10.8) K/ul Hgb 7.9 L (14.0-18.0) g/dl Hct 26.7 L (42.0-52.0) % Plt Count 347 (130-400) K/uL BMP 01/11/24 13:10 Sodium 145 Potassium 3.8 Chloride 112 H Carbon Dioxide 22 BUN 27 H Creatinine 1.45 H Glucose 182 H Calcium 6.7 L Liver Function 01/11/24 Range/Units 13:10 Total Bilirubin 0.3 (0.2-1.0) mg/dl Direct Bilirubin 0.1 (0-0.2) mg/dl AST 15 (13-39) U/L ALT 8 (7-52) U/L Alkaline Phosphatase 348 H (34-104) U/L Albumin 3.5 (3.4-5.0) gm/dl Medications Administered Current Inpatient Medications Ceftriaxone Sodium 1,000 mg/ (Dextrose) 50 mls @ 100 mls/hr IV Q24H GENIA; Protocol Stop: 01/21/24 18:14 Lactated Ringer's (Lr) 1,000 mls @ 80 mls/hr IV .[id number] GENIA Stop: 01/13/24 07:44 Code Status & VTE Plan VTE Prophylaxis Plan VTE Prophylaxis will be ordered: Yes (5) Acute renal failure Acute renal failure type: unspecified Qualified Code(s): N17.9 - Acute kidney failure, unspecified
[2024-01-11 18:17] LABS: Appearance Urine Clear (Clear); Bacteria Urine Automated None Seen (None Seen); Bilirubin Urine Negative (Negative); Blood Urine Negative (Negative); Cast Urine Automated 0-2 /lpf (0-2); Color Urine Yellow; Epithelial Cell Urine Auto 0-2 /hpf (0-2); Glucose Urine UA 3+ (Negative); Ketones Urine Trace (Negative); Leukocyte Esterase Urine Negative (Negative); Nitrite Urine Negative (Negative); Protein Urine Trace (Negative); RBC Urine Automated 0-2 /hpf (0-2); Specific Gravity Urine 1.021 (1.000-1.030); Urobilinogen Urine Negative (Negative); WBC Urine Automated 0-5 /hpf (0-5)
[2024-01-11] MEDS: LACTATED RINGER'S 1,000 ML IV SCH (18:27)
[2024-01-11] MEDS ORDERED: cefTRIAXone SODIUM 1,000 MG in DEXTROSE 5 % MINI-B 50 ML IV SCH (18:30)
[2024-01-11] MEDS ORDERED: GLUCOSE 10 TAB/TUBE PO PRN (18:38)
[2024-01-11] MEDS ORDERED: GLUCOSE 40% GEL 15 GM TUBE PO PRN (18:38)
[2024-01-11] MEDS ORDERED: GLUCAGON FOR INJ 1 MG VIAL SQ PRN (18:38)
[2024-01-11] MEDS ORDERED: DEXTROSE 50% 50 ML SYRINGE IV PRN (18:38)
[2024-01-11] MEDS ORDERED: PROCHLORPERAZINE MALEATE 10 MG TAB PO PRN (21:10)
[2024-01-11] MEDS ORDERED: ACETAMINOPHEN 500 MG TAB PO PRN (21:10)
[2024-01-11] MEDS ORDERED: MoRPHine SULFATE 4 MG/ML 1 ML CARP\\VIAL IV PRN (21:42)
[2024-01-11] MEDS: ONDANSETRON INJ 2 MG/ML 2 ML VIAL IV STA (22:23)
[2024-01-11] MEDS: MoRPHine SULFATE IR 15 MG TAB (IMMEDIATE RELEASE) PO PRN (22:23)
[2024-01-11] MEDS: INSULIN ASPART PER UNIT CHARGE SC SCH (22:29)
--- NOTE | 2024-01-12 00:18 | Electrocardiogram Report ---
Test Reason : Blood Pressure : / mmHG Vent. Rate : 107 BPM Atrial Rate : 107 BPM P-R Int : 148 ms QRS Dur : 088 ms QT Int : 368 ms P-R-T Axes : 063 032 063 degrees QTc Int : 491 ms Sinus tachycardia Nonspecific ST abnormality Abnormal ECG When compared with ECG of 01-JUN-2021 05:31, No significant change Confirmed by Wiley Tyler ([id number]) on 01/12/2024 12:18:00 AM Referred By: Confirmed By:Wiley Tyler
[2024-01-12 06:42] LABS: Hematocrit (blood only) 27.4 % (42.0-52.0); Hemoglobin 8.1 g/dl (14.0-18.0); Mean Corpuscular Hemoglobin 28.9 pg (25.0-34.0); Mean Corpuscular Hgb Conc 29.6 g/dL (32.0-36.0); Mean Corpuscular Volume 97.9 fL (80.0-100.0); Mean Platelet Volume 8.6 fL (9.4-12.4); Nucleated RBC # (auto) 0.06 K/uL (0.00-0.12); Nucleated RBC % (auto) 0.7 %; Platelet Count 403 K/uL (130-400); RDW Standard Deviation 63.9 fL (36.4-46.3); White Blood Count 9.13 K/ul (4.8-10.8)
[2024-01-12 07:03] LABS: BUN Creatinine Ratio 15.3 (10-20); Calcium 6.1 mg/dl (8.6-10.3); Creatinine Clr Calc Pharmacy 48.9 ml/min; Est GFR (African American) 66.2 ml/min; Est GFR (Non-African American) 57.1 ml/min; Magnesium 2.4 mg/dl (1.7-2.4); Phosphorus 3.2 mg/dl (2.5-4.9); Potassium 3.9 mmol/L (3.5-5.1)
[2024-01-12 07:23] LABS: Basophils # (auto) 0.07 K/uL (0.00-0.20); Basophils % (auto) 0.8 %; Eosinophils # (auto) 0.12 K/uL (0.00-0.50); Eosinophils % (auto) 1.3 %; Immature Granulocytes # (auto) 0.58 K/uL (0.01-0.20); Immature Granulocytes % (auto) 6.4 %; Lymphocytes # (auto) 1.43 K/uL (1.20-3.40); Lymphocytes % (auto) 15.7 %; Monocytes # (auto) 0.43 K/uL (0.11-0.59); Monocytes % (auto) 4.7 %; Neutrophils % (auto) 71.1 %; Polychromasia 1+; Tear Drop Cells 1+
[2024-01-12] MEDS: TAMSULOSIN HCL 0.4 MG CAP PO SCH (08:40)
[2024-01-12] MEDS: CLOPIDOGREL BISULFATE 75 MG TAB PO SCH (08:40)
[2024-01-12] MEDS: POT PHOSPHATE MONOBASIC W/ SOD TAB PO SCH (08:40)
[2024-01-12] MEDS: ASPIRIN 81 MG ECTAB PO SCH (08:40)
--- OUTSIDE RECORDS SUMMARY | 2024-01-12 09:03 | External Medical Summary | Summary of Care ---
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 Name Role Phone Dru Fritz MD Primary Care Provider [phone] Reason for Visit * Reason Comments Chemotherapy Taxotere C3D1 * Episode Based Medications (Routine) - Closed Specialty Diagnoses / Procedures Referred By Contjanene t Referred To Contact Diagnoses Encounter for antineoplastic chemotherapy Prostate cancer metastatic to multiple sites (HCC) Malignant neoplasm metastatic to bone (HCC) Procedures MO INJECTION, UDENYCA 0.5 MG MO DOCETAXEL INJECTION Elio Queen MD [address] [place] [address] Anc Hem/Onc [facility] DEPT CLOSED - 08/14/23 [address] [place] [address] Referral ID Status Reason Start Date Expiration Date Visits Re quested Visits Authorized [id number] Closed 2023 02/20/[phone] Encounter Details Date Type Department Care Team (Latest Contact Info) Description 11/01/2023 12:00 PM EST Hem/Onc Treatment Hematology/Oncolog y Treatment, [place] [address] [place] [address] Saritha, Chair 1 Hem Onc [address] [place] [address] Encounter for antineoplastic chemotherapy*; Prostate cancer metastatic to multiple sites (HCC); Malignant neoplasm metastatic to bone (HCC) Allergies Active Allergy Reactions Criticality Noted Date Comments Amoxicillin-Pot Clavulanate 05/17/20 22 Dizziness and confused documented as of this encounter (statuses as of 12/25/2023) Medications Medication Sig Dispensed Refills Start Date End Date Status Lucidworks SYSTEM W/DEVICE KITIndications:D M type 2, goal A1c below 7 Use up to four times a day as directed 1 Kit 0 4 Active Aspirin 81 MG TBEC Take 1 Tablet by mouth in the morning. 0 Active sildenafil (REVATIO) 20 MG Tablet Take 3 tablets by mouth 1 hour prior to sexual activity 30 Tab 5 8 Active Blood Glucose Monitoring Suppl (Eucalyptus SystemsUCH VERIO) w/Device KIT Use up to 4 times a day E11.9 1 Kit 0 0 Active Acetaminophen 500 MG Oral TabletIndication s:Takes twice daily. Take 1 Tablet by mouth every 6 hours as needed. 0 Active Xgeva 120 MG/1.7ML Subcutaneous Solution (Denosumab) Inject 120 mg under the skin Every Month. 0 Active Entresto 24-26 MG Oral Tablet (sacubitril-vals eileen 24-26 mg per tab)Indications: Essential hypertension with goal blood pressure less than 140/90 TAKE ONE TABLET BY MOUTH TWICE A DAY 180 Tablet 3 3 05/02/20 24 Active Clopidogrel Bisulfate 75 MG Oral Tablet (pLAVix) TAKE ONE TABLET BY MOUTH IN THE MORNING 30 Tablet 5 3 06/10/20 24 Active K-Phos 500 MG Oral Tablet (potassium phosphate)Indica tions:Hypophosph atemia TAKE ONE TABLET BY MOUTH TWICE A DAY 180 Tablet 1 3 Active Empagliflozin 25 MG Oral Tablet (Jardiance)Indic ations:Type 2 diabetes mellitus with diabetic neuropathy, without long-term current use of insulin ([facility]) TAKE ONE TABLET BY MOUTH DAILY IN THE MORNING 90 Tablet 3 3 08/14/20 24 Active Alfuzosin HCl ER 10 MG Oral Tablet Extended Release 24 Hour (Uroxatral) TAKE ONE TABLET BY MOUTH EVERY DAY 90 Tablet 3 3 08/26/20 24 Active Atorvastatin Calcium 80 MG Oral Tablet (Lipitor)Indicat ions:History of CVA (cerebrovascular accident),Dyslip idemia TAKE ONE TABLET BY MOUTH EVERY DAY IN THE MORNING 90 Tablet 2 3 08/26/20 24 Active Ondansetron HCl 8 MG Oral Tablet (Zofran)Indicati ons:Prostate cancer metastatic to multiple sites (HCC) Take 1 Tablet by mouth every 8 hours as needed for Nausea. 30 Tablet 2 3 Active Prochlorperazine Maleate 10 MG Oral Tablet (Compazine)Indic ations:Prostate cancer metastatic to multiple sites (HCC) Take 1 Tablet by mouth every 6 hours as needed for Nausea. 30 Tablet 2 3 Active predniSONE 5 MG Oral Tablet (Deltasone)Indic ations:Prostate cancer metastatic to multiple sites (HCC) Take 1 Tablet by mouth in the morning and 1 Tablet before bedtime. 60 Tablet 5 3 Active dexAMETHasone 4 MG Oral Tablet (Decadron)Indica tions:Prostate cancer metastatic to multiple sites (HCC) Take 8mg (2 tabs) twice a day x3 days starting the day before chemotherapy 72 Tablet 0 3 Active Loratadine 10 MG Oral Tablet (Claritin)Indica tions:Prostate cancer metastatic to multiple sites (HCC) Take 10mg (1 tab) daily x5 days starting the day of chemotherapy 30 Tablet 0 3 Active Morphine Sulfate ER 15 MG Oral Tablet Extended Release (MS Contin)Indicatio ns:Cancer associated pain Take 1 Tablet by mouth in the morning and 1 Tablet before bedtime. 60 Tablet 0 3 Active Self-Cath Coude Tip #14 maldivian. Use every 4-6 hours and as needed 30 Each 5 1 11/14/19 24 Discontinued linaGLIPtin 5 MG Oral Tablet (Tradjenta)Indic ations:Type 2 diabetes mellitus with diabetic neuropathy, without long-term current use of insulin (HCC) TAKE ONE TABLET BY MOUTH EVERY MORNING 90 Tablet 0 3 12/09/19 24 Discontinued(Re fill) traMADol HCl 50 MG Oral Tablet (Ultram)Indicati ons:Malignant neoplasm metastatic to bone (HCC) Take 2 Tablets by mouth 3 times a day as needed for Pain, Moderate. 180 Tablet 0 4 11/02/19 24 Discontinued(Re fill) documented as of this encounter (statuses as of 12/25/2023) Active Problems Problem Noted Date Diagnosed Date Encounter for antineoplastic chemotherapy 2022 Hydronephrosis, bilateral 02/15/2022 Malignant neoplasm metastatic to bone 11/04/2021 Prostate cancer metastatic to multiple sites 07/2021 History of left common carotid artery stent plac ement 03/08/2021 Primary insomnia 03/07/2021 Asymptomatic bilateral carotid artery stenosis 0 10/28/2020 Type 2 diabetes mellitus wit h stage 3 chronic kidney disease, without long-term current use of insulin 05/20/2019 Hypertensive heart and kidne y disease with acute on chronic systolic congestive heart failure and stage 3 chronic kidney disease 05/20/2019 History of CVA (cerebrovascular accident) 2018 Overview: Right parietal stroke March 2019 Nonischemic cardiomyopathy 03/31/2019 Chronic systolic heart failure 03/31/2019 Type 2 diabetes mellitus wit h diabetic neuropathy, without long-term current use of insulin 08/21/2017 PAD (peripheral artery disease) 08/21/2017 Stage 3a chronic kidney disease 05/15/2016 Overview: Per CKD protocol #1 Type 2 diabetes mellitus wit h hemoglobin A1c goal of less than 7.0% 01/24/2016 HTN, goal below 130/80 01/24/2016 Dyslipidemia 07/23/2014 Tobacco use disorder 08/14/2007 documented as of this encounter (statuses as of 12/25/2023) Resolved Problems Problem Noted Date Diagnosed Date Resolved Date Incomplete emptying of bladder 02/15/2022 03/10/2022 Renal failure 06/10/2021 06/14/2021 Retention of urine 06/10/2021 Prostate nodule 06/10/2021 06/14/2021 Elevated prostate specific antigen (PSA) 06/10/2021 06/14/2021 BPH with obstruction/lower u rinary tract symptoms 10/28/2015 06/14/2021 Impotence of organic origin 10/28/2015 06/14/2021 Heart failure, etiology unknown 10/28/2015 03/31/2019 Heart failure, etiology unknown 07/29/2009 12/16/2014 Overview: Per Heart Failure Taxonomy Protocol. Type 2 diabetes mellitus wit h hemoglobin A1c goal of less than 7.0% 07/29/2009 01/24/2016 Overview: Per Diabetes Taxonomy. ICD-10 update of inactive term Type 2 diabetes mellitus wit h hemoglobin A1c goal of less than 7.0% 07/29/2009 Overview: Per Diabetes Taxonomy. ICD-10 update of inactive term Heart failure, etiology unknown 07/29/2009 Overview: Per Heart Failure Taxonomy Protocol. HTN, goal to be determined 1 10/24/2008 Overview: Modified per HTN protocol #16. Sciatica 03/31/2019 documented as of this encounter (statuses as of 12/25/2023) Immunizations No known immunizationsdocumented as of this encounter Social History Tobacco Use Types Packs/Day Years Used Date Smoking Tobacco: Every Day Cigarettes 0.5 30 Smokeless Tobacco: Never Comments:08/09/22 smokes 1/2 pack a day Alcohol Use Standard Drinks/Week Comments Yes 0 (1 standard drink = 0.6 oz pur e alcohol) rarely PHQ-2 Answer Date Recorded PHQ-2 Score 2 06/23/2019 Sex and Gender Information Value Date Recorded Sex Assigned at Not on file Gender Identity Not on file Sexual Orientation Not on file Job Start Date Occupation Industry Not on file Not on file Not on file documented as of this encounter Functional Status Functional Status Response Date of Assess ment Are you deaf or do you have serious difficulty h earing? No 01/25/2021 Are you blind or do you have serious difficulty seeing, even when wearing glasses? No 01/25/2021 Do you have serious difficul ty walking or climbing stairs? (5 years old or older) No 01/25/2021 Do you have difficulty dress ing or bathing? (5 years old or older) No 01/25/2021 Because of a physical, menta l, or emotional condition, do you have difficulty doing errands alone such as visiting a doctor s office or shopping? (15 years old or older) No 01/26/20 Cognitive Status Response Date of Assessm ent Because of a physical, menta l, or emotional condition, do you have serious difficulty concentrating, remembering, or making decisions? (5 years old or older) No 01/25/2021 documented as of this encounter Nursing Notes * Eugenie Jackson RN - 11/01/2023 3:14 PM EST Functional status at today's visit: Ambulatory and capable of all selfcare but unable to carry out any work activities. Up and about more than 50% of waking hours The drug name, dose, infusion volume, rate and route of administration, expiration date and time, appearance and physical integrity of the drug and rate set on the pump and sequencing of drug administration (as applicable) were verified by me and second sign-in RN. Patient was assessed for symptoms or adverse side effects during treatment. Pt completed treatment without issues. IV removed by Marzena Mcintyre LPN. Goals: Pt will remain free from injury. Possible barriers to meeting goals: pt is a high fall risk Stability of the patient: Moderately stable - low risk of patient condition declining or worsening Summary regarding today's goals: Met: Pt remained free from injury during treatment today. Discharged in stable condition. Pt scheduled for PET scan in 3 weeks; per Dr. Queen, berta to delay treatment 1 week to wait for PETresults. * Eugenie Jackson RN - 11/01/2023 12:43 PM EST Chair 5, Taxotere. Pt seen by DANIELLE Leo; refer to OV notes. Labs okay for treatment. PIVestablished; NSS infusing. Safety and Risk for Injury Patient will remain free from injury. Ensure appropriate safety devices are available. Provide and maintain safe environment. documented in this encounter Plan of Treatment Upcoming Encounters Date Type Department Care Team (Late st Contact Info) Description 12/26/2023 1:00 PM EDT Office Visit Cardiology, [facility] [address] [place] [address] Sunny Ricketts, [address] [place] [address] 12/26/2023 2:40 PM EDT Office Visit Family Practice [facility] [address] [place] [address] Dru Fritz MD [address] [place] [address] 01/04/2024 1:00 PM EDT Appointment Radiology, [address] [address] 01/09/2024 8:30 AM EDT Office Visit Cardiology, [facility] [address] [facility] [place] [address] Danay Howell PA-C [address] [place] [address] 01/17/2024 10:40 AM EDT Laboratory Laboratory [facility] [address] [facility] [place] [phone] [facility] [place] [address] 01/17/2024 11:15 AM EDT Office Visit Hematology/Oncology [facility] [place] [address] [facility] [place] [phone] Elio Queen MD [address] [facility] [place] [address] 01/17/2024 11:45 AM EDT Immunization/Injectio n [facility]ematology[facility] [place] [facility] [id number] Nurse, Med [address] [place] [address] 05/20/2024 2:15 PM EDT Office Visit Urology, [facility] [address] [place] [address] Isaías Novak MD [address] [facility] [place] [address] [place] [address] Health Maintenance Due Date Last Done Comments DISCUSS TOBACCO CESSATION (REFER TO SMARTSET #4599) 1959 COVID-19 Vaccine (#1) 1964 Pneumococcal Vaccine: Pediatrics (0 to 5 Years) and At-Risk Patients (6 to 64 Years) (1 of 2 - PCV) 1965 HIV Screening 1974 Hepatitis C Screening 1977 DTaP,Tdap,and Td Vaccines (1 - Tdap) 1978 Zoster Vaccines (1 of 2) 1978 Cologuard 2004 Colonoscopy 2004 Colorectal Cancer Screening 2004 Fecal Occult Blood Test 2004 Sigmoidoscopy 2004 Diabetic Foot Exam 05/20/2020 05/20/2019, 0 03/27/2018, 10/28/2015 Depression Screening 06/23/2020 06/23/2019 Diabetic Eye Exam 03/02/2022 03/02/2021, , 01/24/2016, Additional history exists Albumin/Creatinine Ratio 05/15/2023 022, 02/13/2018, 10/27/2015, Additional history exists Influenza Vaccine (FLU shot) (#1) 2023 GFR 06/15/2024 12/14/2023, 11/02, 11/22/2023, Additional history exists HbA1c 06/15/2024 12/14/2023, 12/30, 05/15/2022, Additional history exists CKD PHOS USE SMARTSET 29225 11/28/202411/02, 10/10/2023, 09/10/2023, Additional history exists CKD HGB USE SMARTSET 67539 12/13/202412/13, 12/14/2023, 11/29/2023, Additional history exists GARDASIL-HPV IMMUNIZATION SERIES Aged Out No longer eligible based on patient's age to complete this topic Hepatitis B Aged Out No longer eligi ble based on patient's age to complete this topic MENINGOCOCCAL (MENACTRA/MENVEO) Aged Out No longer eligible based on patient's age to complete this topic documented as of this encounter Medical Devices Implanted Type Area Learning Developer Device Identifier Shelf Expiration Date Model / Serial / Lot Stent Trnscarotid Enroute 7x40 - [id number] Implanted:Qty: 1 on 01/25/2021 by Zeinab Robert MD [place] [facility] [place] [facility] [id number] 05/31/2023 [id number] / / [id number] documented as of this encounter Visit Diagnoses Diagnosis Encounter for antineoplastic chemotherapy- Primary Prostate cancer metastatic to multiple sites (HCC) Malignant neoplasm of prostate Malignant neoplasm metastatic to bone (HCC) Secondary malignant neoplasm of bone and bone marrow documented in this encounter Administered Medications Inactive Administered Medications - up to 3 most recent administrations Medication Order MAR Action Action Date Dose Rate Site dexAMETHasone (Decadron) tab 8 mg 8 mg, Oral, ONCE, On Chantel 11/01/23 at 1330, For 1 dose Given 11/01/2023 12:38 PM EST 8 mg DOCEtaxel (Taxotere) 140 mg in NSS 250 mL infusion 140 mg, IV Piggyback, at 250 mL/hr Administer over 60 Minutes, ONCE, 1 dose, On Chantel 11/01/23 at 1400 Start Infusion 11/01/2023 1:12 PM EST 140 mg 250 mL/hr NSS infusion Intravenous, at 50 mL/hr, PRN, Starting on Chantel 11/01/23 at 1330, Until Chantel 11/01/23 at 1919, Maintenance line Start Infusion 11/01/2023 12:30 PM EST 50 mL/hr ondansetron (Zofran) tab 8 mg 8 mg, Oral, ONCE, On Chantel 11/01/23 at 1330, For 1 dose, Give 30 minutes prior to chemotherapy. Given 11/01/2023 12:38 PM EST 8 mg documented in this encounter Advance Directives Latest Code Status on File Code Status Date Activated Date Inactivated Comments Full Code 01/25/2021 10:53 AM 01/26/2021 1:19 PM This order reflects the patients wishes and were consensually agreed upon. Care Teams Electric Motor Repairman Relationship Specialty Start Date End Date Dru Fritz MD [address] [place] [address] PCP - General Family Medicine 01/24/21 documented as of this encounter
--- OUTSIDE RECORDS SUMMARY | 2024-01-12 09:03 | External Medical Summary ---
Author Name Unknown Address Unknown Organization [facility] [address] [place] [address] Laboratory Report Ordering Provider Test Date Status PATRICE QUINONES 01/11/2024 11:14:37 Final Observation Date Value Abnormality Reference (Units ) Status WBC, Total 01/11/2024 11:14:37 10.08 4.00-10.8 0 (K/uL) Final RBC 01/11/2024 11:14:37 3.17 4.50-5.25 (M/uL) Final Hemoglobin 01/11/2024 11:14:37 9.4 Below low normal 14 .0-16.8 (g/dL) Final HCT 01/11/2024 11:14:37 31.9 Below low normal 40. 0-48.4 (%) Final MCV 01/11/2024 11:14:37 100.6 82.0-99.5 (fL) Final MCH 01/11/2024 11:14:37 29.7 27.0-34.0 (pg) Final MCHC 01/11/2024 11:14:37 29.5 32.0-36.0 (g/dL) Final RDW 01/11/2024 11:14:37 18.4 11.5-15.5 (%) Final Platelets 01/11/2024 11:14:37 485 Above high normal 14 0-400 (K/uL) Final MPV 01/11/2024 11:14:37 8.1 6.6-11.1 ( fL) Final Performing Location [facility] [place] [address]
--- OUTSIDE RECORDS SUMMARY | 2024-01-12 09:03 | External Medical Summary ---
Author Name Unknown Address Unknown Organization [facility] [address] [place] [address] Laboratory Report Ordering Provider Test Date Status PATRICE QUINONES 01/11/2024 11:14:37 Final Observation Date Value Abnormality Reference (Units ) Status Phosphate 01/11/2024 11:14:37 3.2 2.5-4.8 (m g/dL) Final Performing Location [facility] [place] [address] [place] [address]
--- OUTSIDE RECORDS SUMMARY | 2024-01-12 09:03 | External Medical Summary ---
Author Name Unknown Address Unknown Organization [facility] [id number] [place] [address] Laboratory Report Ordering Provider Test Date Status PATRICE QUINONES 01/11/2024 11:14:37 Final Observation Date Value Abnormality Reference (Units ) Status BUN 01/11/2024 11:14:37 25 Above high normal 6-20 (mg/dL) Final Creatinine 01/11/2024 11:14:37 1.4 Above high normal 0.6-1.2 (mg/dL) Final Glomerular filtration rate/1.73 sq M.predicted [Volume Rate/Area] in Serum, Plasma or Blood by Creatinine-based formula (CKD-EPI) 01/11/2024 11:14:37 56 Below low normal >=60 (mL/min) Final eGFR is calculated based on the CKD-EPI 2020 equation Sodium 01/11/2024 11:14:37 146 135-146 (m mol/L) Final Potassium 01/11/2024 11:14:37 4.2 3.5-5.1 (m mol/L) Final Cl 01/11/2024 11:14:37 108 Above high normal 98 -107 (mmol/L) Final CO2 01/11/2024 11:14:37 18 Below low normal 22- 32 (mmol/L) Final Anion gap 01/11/2024 11:14:37 20 Above high normal 7- 15 (mmol/L) Final Glucose 01/11/2024 11:14:37 221 Above high normal 70 -120 (mg/dL) Final Albumin 01/11/2024 11:14:37 3.6 Below low normal 3.8 -5.0 (g/dL) Final AST (Aspartate aminotransferase) 01/11/2024 11:14:37 26 10-50 (U/L) Fin al Alk Phos 01/11/2024 11:14:37 446 Above high normal 35 -130 (U/L) Final Bilirubin, Total 01/11/2024 11:14:37 0.2 <=1 .2 (mg/dL) Final Calcium 01/11/2024 11:14:37 6.9 Below low normal 8.4 -10.2 (mg/dL) Final Protein 01/11/2024 11:14:37 7.6 6.0-8.3 (g /dL) Final ALT (Alanine aminotransferase) 01/11/2024 11:14:37 10 10-50 (U/L) Hilton harrell Performing Location [facility] [address] [place] [address]
--- OUTSIDE RECORDS SUMMARY | 2024-01-12 09:03 | External Medical Summary | Summary of Care ---
Author Name Unknown Organization [facility] Address [address] [place] [address] Phone [phone] Care Team Providers Care Corporate Communications Intern Name Role Phone Dru Fritz MD Primary Care Provider [phone] Reason for Referral * Precert (Within 10 days (routine)) - Authorized Specialty Diagnoses / Procedures Referred By Contac t Referred To Contact Radiology Diagnoses Malignant neoplasm metastatic to bone (HCC) Prostate cancer metastatic to multiple sites (HCC) Metastasis to bone (HCC) Procedures NM PROSTATE WITH Elio Yang MD [address] [place] [address] Referral ID Status Reason Start Date Expiration Date V isits Requested Visits Authorized [id number] Authorized 12/05/2023 6 6 Reason for Visit * Precert (Within 10 days (routine)) - Authorized Specialty Diagnoses / Procedures Referred By Contac t Referred To Contact Radiology Diagnoses Malignant neoplasm metastatic to bone (HCC) Prostate cancer metastatic to multiple sites (HCC) Metastasis to bone (HCC) Procedures NM PROSTATE WITH Elio Yang MD [address] [place] [address] Referral ID Status Reason Start Date Expiration Date V isits Requested Visits Authorized [id number] Authorized 12/05/2023 6 6 Encounter Details Date Type Department Care Team (Latest Contact Info) Description 01/04/2024 12:52 PM EDT - 01/04/2024 11:59 PM EDT Hospital Encounter Radiology, [facility] [address] [place] [address] Arrived Discharge Disposition: Home - Self Care Allergies Active Allergy Reactions Criticality Noted Date Comments Amoxicillin-Pot Clavulanate 05/17/20 22 Dizziness and confused documented as of this encounter (statuses as of 01/05/2024) Medications Medication Sig Dispensed Refills Start Date End Date Status [employer] SYSTEM W/DEVICE KITIndications:DM type 2, goal A1c below 7 Use up to four times a day as directed 1 Kit 0 07/28/2014 Active Aspirin 81 MG TBEC Take 1 Tablet by mouth in the morning. 0 Active sildenafil (REVATIO) 20 MG Tablet Take 3 tablets by mouth 1 hour prior to sexual activity 30 Tab 5 03/27/2018 Active Blood Glucose Monitoring Suppl (Black DrummUCH VERIO) w/Device KIT Use up to 4 times a day E11.9 1 Kit 0 01/12/2020 Active Acetaminophen 500 MG Oral TabletIndications:Ta kes twice daily. Take 1 Tablet by mouth every 6 hours as needed. 0 Active Xgeva 120 MG/1.7ML Subcutaneous Solution (Denosumab) Inject 120 mg under the skin Every Month. 0 Active Entresto 24-26 MG Oral Tablet (sacubitril-valsarta n 24-26 mg per tab)Indications:Esse ntial hypertension with goal blood pressure less than 140/90 TAKE ONE TABLET BY MOUTH TWICE A DAY 180 Tablet 3 05/03/2023 05/02/2024 Active Clopidogrel Bisulfate 75 MG Oral Tablet (pLAVix) TAKE ONE TABLET BY MOUTH IN THE MORNING 30 Tablet 5 06/11/2023 06/10/2024 Active K-Phos 500 MG Oral Tablet (potassium phosphate)Indication s:Hypophosphatemia TAKE ONE TABLET BY MOUTH TWICE A DAY 180 Tablet 1 07/17/2023 Active Empagliflozin 25 MG Oral Tablet (Jardiance)Indicatio ns:Type 2 diabetes mellitus with diabetic neuropathy, without long-term current use of insulin (HCC) TAKE ONE TABLET BY MOUTH DAILY IN THE MORNING 90 Tablet 3 08/15/2023 08/14/2024 Active Alfuzosin HCl ER 10 MG Oral Tablet Extended Release 24 Hour (Uroxatral) TAKE ONE TABLET BY MOUTH EVERY DAY 90 Tablet 3 08/27/2023 08/26/2024 Active Atorvastatin Calcium 80 MG Oral Tablet (Lipitor)Indications :History of CVA (cerebrovascular accident),Dyslipidem ia TAKE ONE TABLET BY MOUTH EVERY DAY IN THE MORNING 90 Tablet 2 08/27/2023 08/26/2024 Active Ondansetron HCl 8 MG Oral Tablet (Zofran)Indications: Prostate cancer metastatic to multiple sites (HCC) Take 1 Tablet by mouth every 8 hours as needed for Nausea. 30 Tablet 2 09/13/2023 Active Prochlorperazine Maleate 10 MG Oral Tablet (Compazine)Indicatio ns:Prostate cancer metastatic to multiple sites (HCC) Take 1 Tablet by mouth every 6 hours as needed for Nausea. 30 Tablet 2 09/13/2023 Active Morphine Sulfate ER 15 MG Oral Tablet Extended Release (MS Contin)Indications:C ancer associated pain Take 1 Tablet by mouth in the morning and 1 Tablet before bedtime. 60 Tablet 0 09/26/2023 Active linaGLIPtin 5 MG Oral Tablet (Tradjenta)Indicatio ns:Type 2 diabetes mellitus with diabetic neuropathy, without long-term current use of insulin (HCC) TAKE ONE TABLET BY MOUTH EVERY MORNING 90 Tablet 1 12/10/2023 12/09/2024 Active Morphine Sulfate 15 MG Oral Tablet (Msir)Indications:Ma lignant neoplasm metastatic to bone (HCC) Take 1 Tablet by mouth in the morning and 1 Tablet before bedtime. 60 Tablet 0 12/17/2023 Active PARoxetine HCl 10 MG Oral Tablet (Paxil) Take 1 Tablet by mouth in the morning. 90 Tablet 3 12/26/2023 Active traMADol HCl 50 MG Oral Tablet (Ultram)Indications: Malignant neoplasm metastatic to bone (HCC) Take 2 Tablets by mouth 3 times a day as needed for Pain, Moderate. 180 Tablet 0 12/31/2023 Active documented as of this encounter (statuses as of 01/05/2024) Active Problems Problem Noted Date Diagnosed Date [...] as of this encounter (statuses as of 01/05/2024) Resolved Problems Problem Noted Date Diagnosed Date [...] as of this encounter (statuses as of 01/05/2024) Immunizations No known immunizationsdocumented as of this [...] (15 years old or older) No 01/26/20 21 Cognitive Status Response Date of Assessm ent Because of a physical, menta l, or emotional condition, do you have serious difficulty concentrating, remembering, or making decisions? (5 years old or older) No 01/25/2021 documented as of this encounter Plan of Treatment Upcoming Encounters Date Type Department Care Team (Late st Contact Info) Description 01/17/2024 10:40 AM EDT Laboratory Laboratory State Monika Ames [address] [place], [place] [address] Isis Melara [address] [place] [address] 01/17/2024 11:15 AM EDT Office Visit Hematology/Oncology [facility] [place] [address] [place] [phone] Elio Queen MD [address] [facility] [place] [address] 01/17/2024 11:45 AM EDT Immunization/Injectio n Hematology/Oncology Treatment, [place] [address] [facility] [place] [phone] Nurse, Med [address] [facility] [place] [address] 05/20/2024 2:15 PM EDT Office Visit Urology, [facility] [address] [facility] [place] [address] Isaías Novak MD [address] [place] [address] [place], [place] [id number] 07/01/2024 4:00 PM EDT Office Visit Family Practice [facility] [address] [facility] [place] [address] Dru Fritz MD [address] [place] [address] Health Maintenance Due Date Last Done Comments DISCUSS TOBACCO CESSATION (REFER TO SMARTSET #0132) 1960 COVID-19 Vaccine (#1) 1965 Pneumococcal Vaccine: [...] Additional history exists Influenza Vaccine (FLU shot) (Season Ended) 2024 GFR 06/15/2024 12/14/2023, 11/02, 11/22/2023, Additional history exists HbA1c 06/15/2024 12/14/2023, 12/30, 05/15/2022, Additional history exists CKD PHOS USE SMARTSET 61608 11/28/202411/02, 10/10/2023, 09/10/2023, Additional history exists CKD HGB USE SMARTSET 32081 12/13/202412/13, 12/14/2023, 11/29/2023, Additional history exists GARDASIL-HPV IMMUNIZATION SERIES Aged Out No longer eligible based on patient's age to complete this topic Hepatitis B Aged Out No longer eligi ble based on patient's age to complete this topic MENINGOCOCCAL (MENACTRA/MENVEO) Aged Out No longer eligible based on patient's age to complete this topic documented as of this encounter Medical Devices Implanted Type Area Ware[employer]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 Device Identifier Shelf Expiration Date Model / Serial / Lot Stent Trnscarotid Enroute 7x40 - [id number] Implanted:Qty: 1 on 01/25/2021 by Zeinab Robert MD at [facility] Left: [facility] [id number] 05/31/2023 [id number] / / [id number] documented as of this encounter Procedures Procedure Name Priority Date/Time Associated Diagnosis Comments NM PROSTATE WITH PLUVICTO Routine 01/04/2024 1:40 PM EDT Malignant neoplasm metastatic to bone (HCC) Prostate cancer metastatic to multiple sites (HCC) Metastasis to bone (HCC) documented in this encounter Results * NM PROSTATE WITH PLUVICTO (01/04/2024 1:40 PM EDT) Anatomical Region Laterality Modality Body, Chest, Abdomen, Pelvis Com puted Tomography 01/04/2024 2:06 PM EDT Impressions 01/04/2024 3:29 PM EDT IMPRESSION Successful Pluvicto administration. I have personally reviewed this examination and agree with the resident/fellow physician's interpretation. Narrative 01/04/2024 3:29 PM EDT EXAM NM PROSTATE WITH PLUVICTO - 01/04/2024 1:40 pm HISTORY 63-year-old male, a case of metastatic prostate cancer, bone metastasis, on hormonal treatment, did not respond well with docetaxel chemotherapy, COMPARISON None. TECHNIQUE The risks and benefits of the therapy, procedures and guidelines for outpatient therapy, and informed consent were given during a previous visit. This is the patient's first Pluvicto administration. A timeout was performed at 13:23 in the presence of Dr. Michael Ellis and Louis Caicedo, PHARMACIST TECHNICIAN, RT(N)(CT). The patient was identified by name, date, and procedure. A single intravenous injection containing a total dose of 200 mCi of Tia-177 vipivotide tetraxetan (Pluvicto) was administered without difficulty. FINDINGS Successful first Pluvicto administration. Procedure Note Michael Ellis DO - 01/04/2024 EXAM NM PROSTATE WITH PLUVICTO - 01/04/2024 1:40 pm HISTORY 63-year-old male, a case of metastatic prostate cancer, bone metastasis,on hormonal treatment, did not respond well with docetaxel chemotherapy, COMPARISON None. TECHNIQUE The risks and benefits of the therapy, procedures and guidelines foroutpatient therapy, and informed consent were given during a previousvisit. This is the patient's first Pluvicto administration. A timeout was performed at 13:[address] of Dr[address] Michael Ellis andLouis Caicedo, PHARMACIST TECHNICIAN, RT(N)(CT). The patient was identified by name, birthdate, and procedure. A single intravenous injection containing a total dose of 200 mCi ofLu-177 vipivotide tetraxetan (Pluvicto) was administered withoutdifficulty. FINDINGS Successful first Pluvicto administration. IMPRESSION IMPRESSION Successful Pluvicto administration. I have personally reviewed this examination and agree with the resident/fellow physician's interpretation. Elio Queen MD RAD NUCLEAR MED documented in this encounter Visit Diagnoses Diagnosis Malignant neoplasm metastatic to bone (HCC) Secondary malignant neoplasm of bone and bone marrow Prostate cancer metastatic to multiple sites (HCC) Malignant neoplasm of prostate Metastasis to bone (HCC) Secondary malignant neoplasm of bone and bone marrow documented in this encounter Administered Medications Inactive Administered Medications - up to 3 most recent administrations Medication Order MAR Action Action Date Dose Rate Site Lutetium Tia 177 Vipivotide Tetraxetan (Pluvicto) inj 200 millicurie 200 millicurie, Intravenous, ONCE, On Sun01/04/24 at 1335, For 1 dose, Radiology Medication Routing (Non-IR) Given 01/04/2024 1:25 PM EDT 200 millicuries Antecubital Right documented in this encounter Advance Directives Latest Code Status on File Code Status Date Activated Date Inactivated Comments Full Code 01/25/2021 10:53 AM 01/26/2021 1:19 PM This order reflects the patients wishes and were consensually agreed upon. Care Teams Corporate Communications Intern Relationship Specialty Start Date End Date Dru Fritz MD [address] [place] [id number] PCP - General Family Medicine 01/24/21 documented as of this encounter
--- OUTSIDE RECORDS SUMMARY | 2024-01-12 09:03 | External Medical Summary | Summary of Care ---
Author Name Unknown Organization [facility] Address [address] [place] [address] Phone [phone] Care Team Providers Care Review Coordinator Name Role Phone Dru Fritz MD Primary Care Provider [phone] Reason for Visit * Reason Comments Follow Up Encounter Details Date Type Department Care Team (Latest Contact Info) Description 12/26/2023 1:00 PM EDT Office Visit Cardiology, [facility] [address] [place] [address] Sunny Ricketts, [address] [place] [address] HFrEF (heart failure with reduced ejection fraction) ([facility])*; Non-occlusive coronary artery disease; Nonischemic cardiomyopathy (HCC) Allergies Active Allergy Reactions Criticality Noted Date Comments Amoxicillin-Pot Clavulanate 05/17/20 22 Dizziness and confused documented as of this encounter (statuses as of 12/26/2023) Medications Medication Sig Dispensed Refills Start Date End Date Status [employer] SYSTEM W/DEVICE KITIndications:DM type 2, goal A1c below 7 Use up to four times a day as directed 1 Kit 0 4 Active Aspirin 81 MG TBEC Take 1 Tablet by mouth in the morning. 0 Active sildenafil (REVATIO) 20 MG Tablet Take 3 tablets by mouth 1 hour prior to sexual activity 30 Tab 5 8 Active Blood Glucose Monitoring Suppl (ONETOUCH VERIO) w/Device KIT Use up to 4 times a day E11.9 1 Kit 0 0 Active Acetaminophen 500 MG Oral TabletIndications :Takes twice daily. Take 1 Tablet by mouth every 6 hours as needed. 0 Active Xgeva 120 MG/1.7ML Subcutaneous Solution (Denosumab) Inject 120 mg under the skin Every Month. 0 Active Entresto 24-26 MG Oral Tablet (sacubitril-valsa rtan 24-26 mg per tab)Indications:E ssential hypertension with goal blood pressure less than 140/90 TAKE ONE TABLET BY MOUTH TWICE A DAY 180 Tablet 3 3 05/02/20 24 Active Clopidogrel Bisulfate 75 MG Oral Tablet (pLAVix) TAKE ONE TABLET BY MOUTH IN THE MORNING 30 Tablet 5 3 06/10/20 24 Active K-Phos 500 MG Oral Tablet (potassium phosphate)Indicat ions:Hypophosphat emia TAKE ONE TABLET BY MOUTH TWICE A DAY 180 Tablet 1 3 Active Empagliflozin 25 MG Oral Tablet (Jardiance)Indica tions:Type 2 diabetes mellitus with diabetic neuropathy, without long-term current use of insulin (HCC) TAKE ONE TABLET BY MOUTH DAILY IN THE MORNING 90 Tablet 3 3 08/14/20 24 Active Alfuzosin HCl ER 10 MG Oral Tablet Extended Release 24 Hour (Uroxatral) TAKE ONE TABLET BY MOUTH EVERY DAY 90 Tablet 3 3 08/26/20 24 Active Atorvastatin Calcium 80 MG Oral Tablet (Lipitor)Indicati ons:History of CVA (cerebrovascular accident),Dyslipi demia TAKE ONE TABLET BY MOUTH EVERY DAY IN THE MORNING 90 Tablet 2 3 08/26/20 24 Active Ondansetron HCl 8 MG Oral Tablet (Zofran)Indicatio ns:Prostate cancer metastatic to multiple sites (HCC) Take 1 Tablet by mouth every 8 hours as needed for Nausea. 30 Tablet 2 3 Active Additional Information Patient not taking.Reported on 12/26/2023 Prochlorperazine Maleate 10 MG Oral Tablet (Compazine)Indica tions:Prostate cancer metastatic to multiple sites (HCC) Take 1 Tablet by mouth every 6 hours as needed for Nausea. 30 Tablet 2 3 Active Additional Information Patient not taking.Reported on 12/26/2023 Morphine Sulfate ER 15 MG Oral Tablet Extended Release (MS Contin)Indication s:Cancer associated pain Take 1 Tablet by mouth in the morning and 1 Tablet before bedtime. 60 Tablet 0 3 Active traMADol HCl 50 MG Oral Tablet (Ultram)Indicatio ns:Malignant neoplasm metastatic to bone (HCC) Take 2 Tablets by mouth 3 times a day as needed for Pain, Moderate. 180 Tablet 0 4 Active linaGLIPtin 5 MG Oral Tablet (Tradjenta)Indica tions:Type 2 diabetes mellitus with diabetic neuropathy, without long-term current use of insulin (HCC) TAKE ONE TABLET BY MOUTH EVERY MORNING 90 Tablet 1 4 12/10/19 25 Active Morphine Sulfate 15 MG Oral Tablet (Msir)Indications :Malignant neoplasm metastatic to bone (HCC) Take 1 Tablet by mouth in the morning and 1 Tablet before bedtime. 60 Tablet 0 4 Active predniSONE 5 MG Oral Tablet (Deltasone)Indica tions:Prostate cancer metastatic to multiple sites (HCC) Take 1 Tablet by mouth in the morning and 1 Tablet before bedtime. 60 Tablet 5 3 12/26/19 24 Discontinued dexAMETHasone 4 MG Oral Tablet (Decadron)Indicat ions:Prostate cancer metastatic to multiple sites (HCC) Take 8mg (2 tabs) twice a day x3 days starting the day before chemotherapy 72 Tablet 0 3 12/26/19 24 Discontinued Loratadine 10 MG Oral Tablet (Claritin)Indicat ions:Prostate cancer metastatic to multiple sites (HCC) Take 10mg (1 tab) daily x5 days starting the day of chemotherapy 30 Tablet 0 3 12/26/19 24 Discontinued documented as of this encounter (statuses as of 12/26/2023) Active Problems Problem Noted Date Diagnosed Date [...] as of this encounter (statuses as of 12/26/2023) Resolved Problems Problem Noted Date Diagnosed Date [...] as of this encounter (statuses as of 12/26/2023) Immunizations No known immunizationsdocumented as of this encounter Social History Tobacco Use Types Packs/Day Years Used Date Smoking Tobacco: Every Day Cigarettes 0.5 30 Smokeless Tobacco: Never Tobacco Cessation:Ready to Q uit: Not Asked; Counseling Given: Not Answered Comments:08/09/22 smokes 1/2 pack a day Alcohol [...] on file documented as of this encounter Last Filed Vital Signs Vital Sign Reading Time Taken Comments Blood Pressure 116/68 12/26/2023 12:56 PM EDT Pulse 96 12/26/2023 12:56 PM EDT Temperature - - Respiratory Rate - - Oxygen Saturation 96% 12/26/2023 12:56 PM EDT Inhaled Oxygen Concentration - - Weight 64 kg (141 lb) 12/26/2023 12:56 PM EDT Height - - Body Mass Index 21.45 11/29/2023 8:34 AM EST documented in this encounter Functional Status Functional Status Response [...] No 01/25/2021 documented as of this encounter Progress Notes * Sunny Ricketts, DO - 12/26/2023 1:19 PM EDT Cardiology Outpatient Follow-up Brett Chaudhari is a 63 year old male who is seen for follow-up of cardiomyopathy. HPI: This is a 63-year-old male patient with metastatic prostate cancer who is under the care of Oncology. He also has a history a nonischemic cardiomyopathy with the last estimated left ventricular ejection fraction to be around 40%. Did have a diagnostic heart catheterization in 2019 that showed moderate nonobstructive CAD. He has a longstanding history of tobacco abuse and a previous CVA. He returned today for follow-up. He has no ongoing cardiac complaints. He has baseline shortness of breath which has not worsened. No activity related chest pain. No heart palpitations or tachycardia. Past Medical History: Diagnosis Date Chronic systolic heart failure ([facility]) 03/31/2019 DM type 2, goal A1c below 7 Heart failure, etiology unknown ([facility]) cardiac cath -02/04 10-20% block History of left common carotid artery stent placement 03/08/2021 HTN, goal to be determined Nonischemic cardiomyopathy ([facility]) 03/31/2019 Primary insomnia 03/07/2021 Sciatica Patient Active Problem List Diagnosis Code Tobacco use disorder F17.200 Dyslipidemia E78.5 Type 2 diabetes mellitus with hemoglobin A1c goal of less than 7.0% ([facility]) E11.9 HTN, goal below 130/80 I10 Stage 3a chronic kidney disease ([facility]) N18.31 Type 2 diabetes mellitus with diabetic neuropathy, without long-term current use of insulin ([facility]) E11.40 PAD (peripheral artery disease) ([facility]) I73.9 History of CVA (cerebrovascular accident) Z86.73 Nonischemic cardiomyopathy ([facility]) I42.8 Chronic systolic heart failure ([facility]) I50.22 Type 2 diabetes mellitus with stage 3 chronic kidney disease, without long-term current use of insulin ([facility]) E11.22, N18.30 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 and stage 3 chronic kidney disease ([facility]) I13.0, I50.23, N18.30 Asymptomatic bilateral carotid artery stenosis I65.23 Primary insomnia F51.01 History of left common carotid artery stent placement Z98.890, Z95.828 Prostate cancer metastatic to multiple sites (HCC) C61 Malignant neoplasm metastatic to bone (HCC) C79.51 Hydronephrosis, bilateral N13.30 Encounter for antineoplastic chemotherapy Z51.11 Past Surgical History: Procedure Laterality Date TRANSCATH STENT-CAROTID ARTERY, W/EMBOL PROTECTION Left 01/25/2021 CAROTID STENT WITH DISTAL PROTECTION performed by Zeinab Robert MD at OR [facility] TRANSCATH STENT-CAROTID ARTERY, W/EMBOL PROTECTION Left 01/25/2021 CAROTID STENT WITH DISTAL PROTECTION TRANSCAROTID ARTERY REVASCULARIZATION performed by Zeinab Robert MD at OR [facility] Family History Problem Relation Age of Onset Heart Disorder Father Lung Disorder Father Hypertension Mother Diabetes Mother Social History Tobacco Use Smoking status: Every Day Current packs/day: 0.50 Average packs/day: 0.5 packs/day for 30.0 years (15.0 ttl pk-yrs) Types: Cigarettes Smokeless tobacco: Never Tobacco comments: 08/09/22 smokes 1/2 pack a day Vaping Use Vaping Use: Never used Substance Use Topics Alcohol use: Yes Comment: rarely Drug use: Yes Types: Marijuana Review of patient's allergies indicates: Allergen Reactions Augmentin [Amoxicillin-Pot Clavulanate] Dizziness and confused Current Outpatient Medications Medication Sig Dispense Refill [employer] SYSTEM W/DEVICE KIT Use up to four times a day as directed 1 Kit 0 Aspirin 81 MG TBEC Take 1 Tablet by mouth in the morning. sildenafil (REVATIO) 20 MG Tablet Take 3 tablets by mouth 1 hour prior to sexual activity 30 Tab 5 Blood Glucose Monitoring Suppl (MantaTOUCH VERIO) w/Device KIT Use up to 4 times a day E11.9 1 Kit 0 Acetaminophen 500 MG Oral Tablet Take 1 Tablet by mouth every 6 hours as needed. Xgeva 120 MG/1.7ML Subcutaneous Solution (Denosumab) Inject 120 mg under the skin Every Month. Entresto 24-26 MG Oral Tablet (sacubitril-valsartan 24-26 mg per tab) TAKE ONE TABLET BY MOUTH TWICE A DAY 180 Tablet 3 Clopidogrel Bisulfate 75 MG Oral Tablet (pLAVix) TAKE ONE TABLET BY MOUTH IN THE MORNING 30 Tablet 5 K-Phos 500 MG Oral Tablet (potassium phosphate) TAKE ONE TABLET BY MOUTH TWICE A DAY 180 Tablet 1 Empagliflozin 25 MG Oral Tablet (Jardiance) TAKE ONE TABLET BY MOUTH DAILY IN THE MORNING 90 Tablet3 Alfuzosin HCl ER 10 MG Oral Tablet Extended Release 24 Hour (Uroxatral) TAKE ONE TABLET BY MOUTH EVERY DAY 90 Tablet 3 Atorvastatin Calcium 80 MG Oral Tablet (Lipitor) TAKE ONE TABLET BY MOUTH EVERY DAY IN THE MORNING 90 Tablet 2 Morphine Sulfate ER 15 MG Oral Tablet Extended Release (MS Contin) Take 1 Tablet by mouth in the morning and 1 Tablet before bedtime. 60 Tablet 0 traMADol HCl 50 MG Oral Tablet (Ultram) Take 2 Tablets by mouth 3 times a day as needed for Pain, Moderate. 180 Tablet 0 linaGLIPtin 5 MG Oral Tablet (Tradjenta) TAKE ONE TABLET BY MOUTH EVERY MORNING 90 Tablet 1 Morphine Sulfate 15 MG Oral Tablet (Msir) Take 1 Tablet by mouth in the morning and 1 Tablet beforebedtime. 60 Tablet 0 Ondansetron HCl 8 MG Oral Tablet (Zofran) Take 1 Tablet by mouth every 8 hours as needed for Nausea. (Patient not taking: Reported on 12/26/2023) 30 Tablet 2 Prochlorperazine Maleate 10 MG Oral Tablet (Compazine) Take 1 Tablet by mouth every 6 hours as needed for Nausea. (Patient not taking: Reported on 12/26/2023) 30 Tablet 2 No current facility-administered medications for this visit. ROS: Review of Systems: See HPI for pertinent positives. All other review of systems is negative. PHYSICAL EXAMINATION BP 116/68 | Pulse 96 | Wt 64 kg (141 lb) | SpO2 96% | BMI 21.45 kg/m | BSA 1.75 m Body mass index is 21.45 kg/m. General: no acute distress and stated age Head: normocephalic, no masses, lesions, tenderness or abnormalities Eyes: conjunctiva are pink and non-injected, sclera clear Neck: supple, no adenopathy, no bruits, normal jugular venous pulse, no hepatojugular reflux Chest: normal shape and normal respiratory effort Lungs: clear to auscultation and percussion Cardiac Exam: - regular rate & rhythm, no murmurs gallops or rubs - normal S1, normal S2 Pulses: 2(+) throughout Abdomen: abdomen soft, non-tender, no abnormal masses and no hepatosplenomegaly Musculoskeletal: no gait disturbance, no joint inflammation, no deforming arthritis Extremities: no edema and no cyanosis Neuro: grossly normal exam Laboratory Data Review: Results for orders placed or performed in visit on 12/14/23 LIPID PANEL WITH DIRECT LDL IF TG IS HIGH Result Value Ref Range Triglycerides 105 <=174 mg/dL Cholesterol 169 <200 mg/dL HDL Cholesterol 48 >39 mg/dL Non-HDL Cholesterol 121 <=159 mg/dL LDL Cholesterol 100 <=129 mg/dL Results for orders placed or performed in visit on 02/14/22 LDL CHOLESTEROL (DIRECT MEASURE) Result Value Ref Range LDL Cholesterol (Direct Measure) 73 <=129 mg/dL Lab Results Component Value Date/Time HDL CHOLESTEROL - [facility] 48 12/14/2023 09:02 AM HDL CHOLESTEROL - [facility] 40 04/29/2020 10:10 AM HDL-OUTSIDE LAB 26 03/26/2019 07:34 AM Lab Results Component Value Date/Time CHOLESTEROL - [facility] 169 12/14/2023 09:02 AM CHOLESTEROL - [facility] 94 04/29/2020 10:10 AM CHOLESTEROL, TOTAL - OUTSIDE LAB 207 (H) 03/26/2019 07:34 AM CHOLESTEROL-HDL RATIO - [facility] 5.3 11/14/2018 09:38 AM CHOLESTEROL-OUTSIDE LAB 207 (A) 03/26/2019 12:00 AM Lab Results Component Value Date/Time GLUCOSE - [facility] 131 (H) 12/14/2023 09:02 AM GLUCOSE - [facility] 183 (H) 04/29/2020 10:10 AM GLUCOSE METER POCT - [facility] 127 (H) 01/26/2021 07:14 AM GLUCOSE, URINE - [facility] >=1000 (A) 09/11/2023 08:34 AM GLUCOSE, WHOLE BLOOD - [facility] 130 (H) 01/25/2021 07:53 AM GLUCOSE-OUTSIDE LAB 390 (A) 03/26/2019 12:00 AM Lab Results Component Value Date/Time HEMOGLOBIN A1C - [facility] 6.3 (H) 12/14/2023 09:02 AM HEMOGLOBIN A1C - [facility] 8.3 (H) 04/29/2020 10:10 AM HEMOGLOBIN, [id number] LAB 13.7 (H) 03/26/2019 07:34 AM No components found for: "[id number]" No results found for: "MICROALBU" Lab Results Component Value Date/Time CREATININE - [facility] 1.2 12/14/2023 09:02 AM CREATININE - [facility] 1.1 04/29/2020 10:10 AM CREATININE, RANDOM URINE - [facility] 93 05/15/2022 01:19 PM CREATININE, RANDOM URINE - [facility] 110 02/13/2018 12:24 PM CREATININE-OUTSIDE LAB 1.35 03/26/2019 12:00 AM Lab Results Component Value Date/Time ALT - [facility] 7 (L) 12/14/2023 09:02 AM ALT - [facility] 49 05/14/2016 10:49 AM Hemoglobin Results: Lab Results Component Value Date/Time HGB 10.1 (L) 12/14/2023 09:02 AM HGB 10.6 (L) 11/29/2023 08:20 AM HGB 11.9 (L) 11/22/2023 01:49 PM HGB 12.9 (L) 01/25/2021 07:53 AM HGB 16.1 04/29/2020 10:10 AM HGB 13.4 (L) 04/17/2019 12:13 PM HGB 14.4 02/13/2018 12:24 PM Impression: 1. HFrEF, EF 18% in 2018, now improved to EF 41% on last echo on 03/2022 2. Moderate nonobstructive coronary artery disease by cardiac catheterization, March 2019. 3. History of tobacco abuse. 4. Hypertension. 5. Hyperlipidemia. 6. History of Right MCA stroke- [facility] 2018 7. Severe Left carotid stenosis s/p TCAR 12/2020, on aspirin and plavix 8. Diabetes 9. Metastatic Prostate Cancer Plan: From a cardiac standpoint the patient is clinically stable. He will continue his current medications and plan follow-up in 6 months or earlier if needed. This chart was completed in part utilizing [employer] Speech Voice Recognition Software. Grammatical errors, random word insertions, prounoun errors, and incomplete sentences are an occasional consequence of this system due to software limitations, ambient noise, and hardware issues. Any formal questions or concerns about the content, text, or information contained within the body of this dictation should be directly addressed to the provider for clarification. I spent a total of 30-39 minutes (exact time 36 mins) on the date of service in preparation, delivery, and documentation of the care provided to Brett Chaudhari excluding any time spent in the performance of separately billed services. Sunny Ricketts DO Cardiology, [facility] [address] [facility] [place] [address] 12/26/2023 documented in this encounter Nursing Notes * Radha Bello CMA - 12/26/2023 12:55 PM EDT Examination Room: 16 Name: Brett Chaudhari Date of : (1960) Reason for Visit: 6m Interim Hospitalization(s): none Problems/Concerns: denied Chest Pain/SOB: denied chest pain but does have SOB with exertion. My [facility] is a way you can talk to your provider online through e-mail. Would you like to sign up? I can activate it for you? ALREADY ACTIVE Patient was instructed to not get up on the exam table until directed and assisted by their provider; patient is to remain seated in the chair/ wheelchair/ exam table for fall prevention and safety reasons. Patient is aware to have assistance to step down off exam table with personnel. Patient voiced full comprehension of instructions. documented in this encounter Plan of Treatment Upcoming Encounters Date Type Department Care Team (Late st Contact Info) Description 12/26/2023 2:40 PM EDT Office Visit Family Practice [facility] [address] [place] [address] Dru Fritz MD [address] [place] [address] 01/04/2024 1:00 PM EDT Appointment Radiology, [address] [facility] [place] [address] 01/09/2024 8:30 AM EDT Office Visit Cardiology, [facility] [address] [place] [address] Danay Howell PA-C [address] [facility] [place] [id number] 01/17/2024 10:40 AM EDT Laboratory Laboratory [facility] [address] [place] [phone] [place], [facility] [address] [facility] [place] [address] 01/17/2024 11:15 AM EDT Office Visit Hematology/Oncology [facility] [address] [place] [phone] Elio Queen MD [address] [facility] [place] [address] 01/17/2024 11:45 AM EDT Immunization/Injectio n Hematology/Oncology Treatment, [place] [address] [place] [phone] Nurse, Med [address] [facility] [place] [address] 05/20/2024 2:15 PM EDT Office Visit Urology, [facility] [address] [facility] [place] [address] Isaías Novak MD [address] [facility] [address] [place] [address] Health Maintenance Due Date Last Done Comments DISCUSS TOBACCO CESSATION (REFER TO SMARTSET #0806) 1960 COVID-19 Vaccine (#1) 1965 Pneumococcal Vaccine: [...] Additional history exists CKD PHOS USE SMARTSET 44590 11/28/202411/02, 10/10/2023, 09/10/2023, Additional history exists CKD HGB USE SMARTSET 69606 12/13/202412/13, 12/14/2023, 11/29/2023, Additional history exists GARDASIL-HPV IMMUNIZATION SERIES Aged Out No longer eligible based on patient's age to complete this topic Hepatitis B Aged Out No longer eligi ble based on patient's age to complete this topic MENINGOCOCCAL (MENACTRA/MENVEO) Aged Out No longer eligible based on patient's age to complete this topic documented as of this encounter Medical Devices Implanted Type Area Braid Folder Device Identifier Shelf Expiration Date Model / Serial / Lot Stent Trnscarotid Enroute 7x40 - [id number] Implanted:Qty: 1 on 01/25/2021 by Zeinab Robert MD at [facility] Left: [facility] [id number] 05/31/2023 [id number] / / [id number] documented as of this encounter Visit Diagnoses Diagnosis HFrEF (heart failure with reduced ejection fraction) (HCC)- Primary Non-occlusive coronary artery disease Coronary atherosclerosis of unspecified type of vessel, [place] or graft Nonischemic cardiomyopathy (HCC) Other primary cardiomyopathies documented in this encounter Advance Directives Latest Code Status on File Code Status Date Activated Date Inactivated Comments Full Code 01/25/2021 10:53 AM 01/26/2021 1:19 PM This order reflects the patients wishes and were consensually agreed upon. Care Teams Review Coordinator Relationship Specialty Start Date End Date Dru Fritz MD [address] [place] [address] PCP - General Family Medicine 01/24/21 documented as of this encounter
--- OUTSIDE RECORDS SUMMARY | 2024-01-12 09:03 | External Medical Summary ---
Author Name Unknown Address Unknown Organization K09:[facility] [place] [address] Laboratory Report Ordering Provider Test Date Status PATRICE QUINONES 01/11/2024 11:14:37 Final Observation Date Value Abnormality Reference (Units ) Status SYNC LEUKOCYTES IN BLOOD BY AUTOMATED COUNT 01/11/2024 11:14:37 10.08 4.00-10.80 (K/uL) Final Neutrophils/100 leukocytes in Blood by Manual count 01/11/2024 11:14:37 77.0 Above high normal 40.0-75.0 (%) Final Lymphocytes/100 leukocytes in Blood by Manual count 01/11/2024 11:14:37 15.0 Below low normal 18.0-42.0 (%) Final Monocytes/100 leukocytes in Blood by Manual count 01/11/2024 11:14:37 5.0 1.0-11.0 (%) Final Eosinophils/100 leukocytes in Blood by Manual count 01/11/2024 11:14:37 1.0 0.0-6.0 (%) Final Metamyelocytes/100 leukocytes in Blood by Manual count 01/11/2024 11:14:37 2.0 Above high normal <=0.0 (%) Final Neutrophils [#/volume] in Blood by Manual count 01/11/2024 11:14:37 7.76 Above high normal 1.80-7.70 (K/uL) Final Lymphocytes [#/volume] in Blood by Manual count 01/11/2024 11:14:37 1.51 1.00-4.80 (K/uL) Final Monocytes [#/volume] in Blood by Manual count 01/11/2024 11:14:37 0.50 0.00-1.10 (K/uL) Final Eosinophils [#/volume] in Blood by Manual count 01/11/2024 11:14:37 0.10 0.00-0.70 (K/uL) Final Metamyelocytes [#/volume] in Blood by Manual count 01/11/2024 11:14:37 0.20 Above high normal <=0.00 (K/uL) Final Nucleated erythrocytes/100 leukocytes [Ratio] in Blood by Automated count 01/11/2024 11:14:37 Final Performing Location [facility] [place] [address]
--- OUTSIDE RECORDS SUMMARY | 2024-01-12 09:03 | External Medical Summary | Summary of Care ---
Author Name Unknown Organization [facility] Address [address] [place] [address] Phone [phone] Care Team Providers Care Hemp Fiber Taker Off Name Role Phone Dru Fritz MD Primary Care Provider [phone] Encounter Details Date Type Department Care Team (Late st Contact Info) Description 01/11/2024 Orders Only Hematology/Oncology [facility]a [place] [address] [place] [facility] [address] Pastora Aguilar CRNP [address] [place] [address] Prostate cancer metastatic to multiple sites (HCC)* Allergies Active Allergy Reactions Criticality Noted Date Comments Amoxicillin-Pot Clavulanate 05/17/20 22 Dizziness and confused documented as of this encounter (statuses as of 01/11/2024) Medications Medication Sig Dispensed Refills Start Date End Date Status Consulting Services SYSTEM W/DEVICE KITIndications:DM type 2, goal A1c below 7 Use up to four times a day as directed 1 Kit 0 07/28/2014 Active Aspirin 81 MG TBEC Take 1 Tablet by mouth in the morning. 0 Active sildenafil (REVATIO) 20 MG Tablet Take 3 tablets by mouth 1 hour prior to sexual activity 30 Tab 5 03/27/2018 Active Blood Glucose Monitoring Suppl (ONETOUCH VERIO) [...] DAY 180 Tablet 3 05/03/2023 05/02/2024 Active K-Phos 500 MG Oral Tablet (potassium phosphate)Indication s:Hypophosphatemia TAKE ONE TABLET BY MOUTH TWICE A DAY 180 Tablet 1 07/17/2023 Active Empagliflozin 25 MG Oral Tablet (Jardiance)Indicatio ns:Type 2 diabetes mellitus with diabetic neuropathy, without long-term current use of insulin ([facility]) TAKE ONE TABLET BY MOUTH DAILY IN [...] Pain, Moderate. 180 Tablet 0 12/31/2023 Active Clopidogrel Bisulfate 75 MG Oral Tablet (pLAVix) TAKE ONE TABLET BY MOUTH IN THE MORNING 30 Tablet 5 01/06/2024 01/05/2025 Active documented as of this encounter (statuses as of 01/11/2024) Active Problems Problem Noted Date Diagnosed Date [...] as of this encounter (statuses as of 01/11/2024) Resolved Problems Problem Noted Date Diagnosed Date [...] as of this encounter (statuses as of 01/11/2024) Immunizations No known immunizationsdocumented as of this [...] Care Team (Late st Contact Info) Description 01/11/2024 10:00 AM EDT Laboratory Laboratory [facility] [place] [address] [place] [phone] [facility] [place] [address] [place] [address] 01/11/2024 11:00 AM EDT Nurse Only Hematology/Oncology [facility] Saritha [place] [address] [place] [phone] [place], Nurse Hem Onc [facility] [address] [place] [address] 01/17/2024 10:40 AM EDT Laboratory Laboratory [facility] Saritha [place] [address] [place] [phone] [facility] [place] [address] [place] [address] 01/17/2024 11:15 AM EDT Office Visit Hematology/Oncology [facility] Saritha [place] [address] [place] [id number] Elio Queen MD [address] [place] [address] 01/17/2024 11:45 AM EDT Immunization/Injectio n Hematology/Oncology Treatment, [place] [address] [place] [address] Nurse, Med 4 200 [facility] [place] [address] 05/20/2024 2:15 PM EDT Office Visit Urology, [facility] [address] [facility] [place] [address] Isaías Novak MD 27 [facility] [address] [place] [address] 07/01/2024 4:00 PM EDT Office Visit Family Practice [facility] [address] [place] [address] Dru Fritz MD [address] [place] [address] Scheduled Orders Name Type Priority Associated Diagnoses Orde r Schedule CBC WITH WBC DIFFERENTIAL Lab STAT Prostate cancer metastatic to multiple sites (HCC) Expected: 01/11/2024 (Approximate), Expires: 01/10/2025 COMPREHENSIVE METABOLIC PANEL Lab STAT Prostate cancer metastatic to multiple sites (HCC) Expected: 01/11/2024 (Approximate), Expires: 01/10/2025 Health Maintenance Due Date Last Done Comments DISCUSS TOBACCO CESSATION (REFER TO SMARTSET #3226) 1960 COVID-19 Vaccine (#1) 1965 Pneumococcal Vaccine: [...] Additional history exists CKD PHOS USE SMARTSET 12328 11/28/202411/02, 10/10/2023, 09/10/2023, Additional history exists CKD HGB USE SMARTSET 95527 12/13/202412/13, 12/14/2023, 11/29/2023, Additional history exists GARDASIL-HPV IMMUNIZATION SERIES Aged Out No longer eligible based on patient's age to complete this topic Hepatitis B Aged Out No longer eligi ble based on patient's age to complete this topic MENINGOCOCCAL (MENACTRA/MENVEO) Aged Out No longer eligible based on patient's age to complete this topic documented as of this encounter Medical Devices Implanted Type Area Bedspread Seamer Device Identifier Shelf Expiration Date Model / Serial / Lot Stent Trnscarotid Enroute 7x40 - [id number] Implanted:Qty: 1 on 01/25/2021 by Zeinab Robert MD at [facility] Left: [facility] [id number] 05/31/2023 SR-0740-C S / / [id number] documented as of this encounter Visit Diagnoses Diagnosis Prostate cancer metastatic to multiple sites (HCC)- Primary Malignant neoplasm of prostate documented in this encounter Advance Directives Latest Code Status on File Code Status Date Activated Date Inactivated Comments Full Code 01/25/2021 10:53 AM 01/26/2021 1:19 PM This order reflects the patients wishes and were consensually agreed upon. Care Teams Hemp Fiber Taker Off Relationship Specialty Start Date End Date Dru Fritz MD [address] [place] [address] PCP - General Family Medicine 01/24/21 documented as of this encounter
--- OUTSIDE RECORDS SUMMARY | 2024-01-12 09:03 | External Medical Summary | Summary of Care ---
Author Name Unknown Organization [facility] Address [address] [place] [address] Phone [phone] Care Team Providers Care Abseiling Instructor Name Role Phone Dru Fritz MD Primary Care Provider [phone] Reason for Visit * Reason Comments Follow Up Pt here with fo r follow up Encounter Details Date Type Department Care Team (Latest Contact Info) Description 12/26/2023 2:40 PM EDT Office Visit Family [facility] [address] [facility] [place] [address] Dru Fritz MD 132 [facility] [place] [address] Type 2 diabetes mellitus with stage 3a chronic kidney disease, without long-term current use of insulin (HCC)*; Type 2 diabetes mellitus with hemoglobin A1c goal of less than 7.0% (HCC); Dyslipidemia; Type 2 diabetes mellitus with diabetic neuropathy, without long-term current use of insulin (HCC); PAD (peripheral artery disease) (HCC); Nonischemic cardiomyopathy (HCC); 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); Chronic systolic heart failure (HCC); Prostate cancer metastatic to multiple sites (HCC); Malignant neoplasm metastatic to bone (HCC); History of left common carotid artery stent placement; History of CVA (cerebrovascular accident); Tobacco use disorder; Primary insomnia; Stage 3a chronic kidney disease (HCC) Allergies Active Allergy Reactions Criticality Noted Date Comments Amoxicillin-Pot Clavulanate 05/17/20 22 Dizziness and confused documented as of this encounter (statuses as of 12/26/2023) Medications Medication Sig Dispensed Refills Start Date End Date Status DataMentors SYSTEM W/DEVICE KITIndications:DM type 2, goal A1c below 7 Use up to four times a day as directed 1 Kit 0 07/28/2014 Active Aspirin 81 MG TBEC Take 1 Tablet by mouth in the morning. 0 Active sildenafil (REVATIO) 20 MG Tablet Take 3 tablets by mouth 1 hour prior to sexual activity 30 Tab 5 03/27/2018 Active Blood Glucose Monitoring Suppl (Endeavor CommerceUCH VERIO) w/Device KIT Use up to 4 [...] before bedtime. 60 Tablet 0 09/26/2023 Active traMADol HCl 50 MG Oral Tablet (Ultram)Indications: Malignant neoplasm metastatic to bone (HCC) Take 2 Tablets by mouth 3 times a day as needed for Pain, Moderate. 180 Tablet 0 11/30/2023 Active linaGLIPtin 5 MG Oral Tablet (Tradjenta)Indicatio [...] the morning. 90 Tablet 3 12/26/2023 Active documented as of this encounter (statuses [...] Time Taken Comments Blood Pressure 116/68 12/26/2023 2:32 PM EDT Pulse 90 12/26/2023 2:32 PM EDT Temperature 36 C (96.8 F) 12/26/2023 2:32 PM EDT Respiratory Rate 18 12/26/2023 2:32 PM EDT Oxygen Saturation 96% 12/26/2023 2:32 PM EDT Inhaled Oxygen Concentration - - Weight 64 kg (141 lb) 12/26/2023 2:32 PM EDT Height 172.7 cm (5' 8") 12/26/2023 2:32 PM EDT Body Mass Index 21.44 12/26/2023 2:32 PM EDT documented in this encounter Functional Status Functional [...] as of this encounter Progress Notes * Dru Fritz MD - 12/26/2023 9:50 PM EDT SUBJECTIVE: Brett Chaudhari is a 63 year old male. Chief Complaint Patient presents with Follow Up Pt here with for follow up HPI: Routine visit. Has metastatic cancer. Pain under good control. Medications reviewed. Patient Active Problem List Diagnosis Code Tobacco use disorder F17.200 Dyslipidemia E78.5 Type 2 diabetes mellitus with hemoglobin A1c goal of less than 7.0% (HCC) E11.9 HTN, goal below 130/80 I10 Stage 3a chronic kidney disease (HCC) N18.31 Type 2 diabetes mellitus with diabetic neuropathy, without long-term current use of insulin (HCC) E11.40 PAD (peripheral artery disease) ([facility]) I73.9 History of CVA (cerebrovascular accident) Z86.73 Nonischemic cardiomyopathy (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 sildenafil (REVATIO) 20 MG Tablet Take 3 tablets by mouth 1 hour prior to sexual activity 30 Tab 5 Acetaminophen 500 MG Oral Tablet Take 1 [...] DAY IN THE MORNING 90 Tablet 2 Ondansetron HCl 8 MG Oral Tablet (Zofran) Take 1 Tablet by mouth every 8 hours as needed for Nausea. 30 Tablet 2 Prochlorperazine Maleate 10 MG Oral Tablet (Compazine) Take 1 Tablet by mouth every 6 hours as needed for Nausea. 30 Tablet 2 traMADol HCl 50 MG Oral Tablet (Ultram) Take 2 Tablets by mouth 3 times a day as needed for Pain, Moderate. 180 Tablet 0 linaGLIPtin 5 MG Oral Tablet (Tradjenta) TAKE ONE TABLET BY MOUTH EVERY MORNING 90 Tablet 1 Morphine Sulfate 15 MG Oral Tablet (Msir) Take 1 Tablet by mouth in the morning and 1 Tablet beforebedtime. 60 Tablet 0 PARoxetine HCl 10 MG Oral Tablet (Paxil) Take 1 Tablet by mouth in the morning. 90 Tablet 3 [employer] ULTRA SYSTEM W/DEVICE KIT Use up to four times a day as directed 1 Kit 0 Blood Glucose Monitoring Suppl (ONETOUCH VERIO) w/Device KIT Use up to 4 times a day E11.9 1 Kit 0 Morphine Sulfate ER 15 MG Oral Tablet Extended Release (MS Contin) Take 1 Tablet by mouth in the morning and 1 Tablet before bedtime. 60 Tablet 0 No current facility-administered medications for this visit. Allergy: Review of patient's allergies indicates: Allergen Reactions Augmentin [Amoxicillin-Pot Clavulanate] Dizziness and confused OBJECTIVE: BP 116/68 | Pulse 90 | Temp 36 C (96.8 F) (Tympanic) | Resp 18 | Ht 1.727 m (5' 8") | Wt 64 kg (141 lb) | SpO2 96% | BMI 21.44 kg/m | BSA 1.75 m General: alert, ill looking, and malnourished Head: Normocephalic, No masses, lesions, tenderness or abnormalities Lungs: chest symmetric with normal AP diameter, no chest deformities noted, no chest wall tenderness, lungs clear to auscultation Heart: regular rate & rhythm, no murmur, and no gallops Extremities: less than 2 second capillary refill, no joint deformities, effusion, or inflammation Neuro Exam: alert & oriented x 3 with fluent speech, no focal motor/sensory deficits, gait normal, reflexes normal and symmetric ASSESSMENT AND PLAN: (E11.22, N18.31) Type 2 diabetes mellitus with stage 3a chronic kidney disease, without long-term current use of insulin (HCC) (primary encounter diagnosis) Plan: stable (E11.9) Type 2 diabetes mellitus with hemoglobin A1c goal of less than 7.0% (HCC) Plan: stable (E78.5) Dyslipidemia Plan: stable (E11.40) Type 2 diabetes mellitus with diabetic neuropathy, without long-term current use of insulin (HCC) Plan: stable (I73.9) PAD (peripheral artery disease) (HCC) Plan: stable (I42.8) Nonischemic cardiomyopathy (HCC) Plan: stable (I13.0, I50.23, N18.31) 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 No other complaints were offered at this time. Dru Fritz MD documented in this encounter Nursing Notes * Ysabel Mcghee LPN - 12/26/2023 2:32 PM EDT The patient has been properly identified by confirmation of name and date of . Chief Complaint Patient presents with Follow Up Pt here with for follow up documented in this encounter Plan of Treatment Upcoming Encounters Date Type Department Care Team (Late st Contact Info) Description 01/04/2024 1:00 PM EDT Appointment Radiology, [address] [id number] 01/17/2024 10:40 AM EDT Laboratory Laboratory [facility] [address] [facility] [place] [address] [place] [address] 01/17/2024 11:15 AM EDT Office Visit Hematology/Oncology [facility] [address] [facility] [place] [address] Elio Queen MD [address] [facility] [place] [address] 01/17/2024 11:45 AM EDT Immunization/Injectio n [facility]ematology[facility] [place] [facility] [address] Nurse, Med [address] [facility] [place] [address] 05/20/2024 2:15 PM EDT Office Visit Urology, [facility] [address] [facility] [place] [address] Isaías Novak MD 27 [facility] [place] [address] [place] [address] 07/01/2024 4:00 PM EDT Office Visit Family Practice [facility] 132 [facility] [place] [address] Dru Fritz MD 132 [facility] [place] [address] Health Maintenance Due Date Last Done Comments DISCUSS TOBACCO CESSATION (REFER TO SMARTSET #0141) 1960 COVID-19 Vaccine (#1) 1965 Pneumococcal Vaccine: [...] Additional history exists CKD PHOS USE SMARTSET 98751 11/28/202411/02, 10/10/2023, 09/10/2023, Additional history exists CKD HGB USE SMARTSET 59197 12/13/202412/13, 12/14/2023, 11/29/2023, Additional history exists GARDASIL-HPV IMMUNIZATION SERIES Aged Out No longer eligible based on patient's age to complete this topic Hepatitis B Aged Out No longer eligi ble based on patient's age to complete this topic MENINGOCOCCAL (MENACTRA/MENVEO) Aged Out No longer eligible based on patient's age to complete this topic documented as of this encounter Medical Devices Implanted Type Area Hospitality Recruiter Device Identifier Shelf Expiration Date Model / Serial / Lot Stent Trnscarotid Enroute 7x40 - [id number] Implanted:Qty: 1 on 01/25/2021 by Zeinab Robert MD at [facility] Left: Carotid [facility] [id number] 05/31/2023 SR-0740-C S / / [id number] documented as of this encounter Visit Diagnoses Diagnosis Type 2 diabetes mellitus with stage 3a chronic kidney disease, without long-term current use of insulin (HCC)- Primary Type 2 diabetes mellitus with hemoglobin A1c goal of less than 7.0% (HCC) Dyslipidemia Other and unspecified hyperlipidemia Type 2 diabetes mellitus with diabetic neuropathy, without long-term current use of insulin (HCC) PAD (peripheral artery disease) (HCC) Peripheral vascular disease, unspecified Nonischemic cardiomyopathy (HCC) Other primary cardiomyopathies 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) Chronic systolic heart failure (HCC) Chronic systolic heart failure Prostate cancer metastatic to multiple sites (HCC) Malignant neoplasm of prostate Malignant neoplasm metastatic to bone (HCC) Secondary malignant neoplasm of bone and bone marrow History of left common carotid artery stent placement History of CVA (cerebrovascular accident) Transient ischemic attack (TIA), and cerebral infarction without residual deficits Tobacco use disorder Primary insomnia Persistent disorder of initiating or maintaining sleep Stage 3a chronic kidney disease (HCC) documented in this encounter Advance Directives Latest Code Status on File Code Status Date Activated Date Inactivated Comments Full Code 01/25/2021 10:53 AM 01/26/2021 1:19 PM This order reflects the patients wishes and were consensually agreed upon. Care Teams Abseiling Instructor Relationship Specialty Start Date End Date Dru Fritz MD [address] [place] [address] PCP - General Family Medicine 01/24/21 documented as of this encounter
--- OUTSIDE RECORDS SUMMARY | 2024-01-12 09:03 | External Medical Summary | Summary of Care ---
Author Name Unknown Organization [facility] Address [address] [place] [facility] [place] [address] Phone [phone] Care Team Providers Care Phone Technician Name Role Phone Nima Norton MD Primary Care Provider [phone] Reason for Visit * Reason Comments Medication Refill Encounter Details Date Type Department Care Team (Late st Contact Info) Description 01/05/2024 Refill Family Practice [facility] [address] [place] [address] Nima Norton MD [address] [place] [address] Allergies Active Allergy Reactions Criticality Noted Date Comments Amoxicillin-Pot Clavulanate 05/17/20 22 Dizziness and confused documented as of this encounter (statuses as of 01/06/2024) Medications Medication Sig Dispensed Refills Start Date End Date Status Behance SYSTEM W/DEVICE KITIndications:DM type 2, goal A1c [...] 0 01/12/2020 Active Acetaminophen 500 MG Oral TabletIndications: Takes twice daily. Take 1 Tablet by mouth every 6 hours as needed. 0 Active Xgeva 120 MG/1.7ML Subcutaneous Solution (Denosumab) Inject 120 mg under the skin Every Month. 0 Active Entresto 24-26 MG Oral Tablet (sacubitril-valsar abdullahi 24-26 mg per tab)Indications:Es sential hypertension with goal blood pressure less than 140/90 TAKE ONE TABLET BY MOUTH TWICE A DAY 180 Tablet 3 05/03/2023 05/02/2024 Active K-Phos 500 MG Oral Tablet (potassium phosphate)Indicati ons:Hypophosphatem ia TAKE ONE TABLET BY MOUTH TWICE A DAY 180 Tablet 1 07/17/2023 Active Empagliflozin 25 MG Oral Tablet (Jardiance)Indicat ions:Type 2 diabetes mellitus with diabetic neuropathy, without long-term current use of insulin ([facility]) TAKE ONE TABLET BY MOUTH DAILY IN THE MORNING 90 Tablet 3 08/15/2023 08/14/2024 Active Alfuzosin HCl ER 10 MG Oral Tablet Extended Release 24 Hour (Uroxatral) TAKE ONE TABLET BY MOUTH EVERY DAY 90 Tablet 3 08/27/2023 08/26/2024 Active Atorvastatin Calcium 80 MG Oral Tablet (Lipitor)Indicatio ns:History of CVA (cerebrovascular accident),Dyslipid emia TAKE ONE TABLET BY MOUTH EVERY DAY IN THE MORNING 90 Tablet 2 08/27/2023 08/26/2024 Active Ondansetron HCl 8 MG Oral Tablet (Zofran)Indication s:Prostate cancer metastatic to multiple sites (HCC) Take 1 Tablet by mouth every 8 hours as needed for Nausea. 30 Tablet 2 09/13/2023 Active Prochlorperazine Maleate 10 MG Oral Tablet (Compazine)Indicat ions:Prostate cancer metastatic to multiple sites (HCC) Take 1 Tablet by mouth every 6 hours as needed for Nausea. 30 Tablet 2 09/13/2023 Active Morphine Sulfate ER 15 MG Oral Tablet Extended Release (MS Contin)Indications :Cancer associated pain Take 1 Tablet by mouth in the morning and 1 Tablet before bedtime. 60 Tablet 0 09/26/2023 Active linaGLIPtin 5 MG Oral Tablet (Tradjenta)Indicat ions:Type 2 diabetes mellitus with diabetic neuropathy, without long-term current use of insulin (HCC) TAKE ONE TABLET BY MOUTH EVERY MORNING 90 Tablet 1 12/10/2023 12/09/2024 Active Morphine Sulfate 15 MG Oral Tablet (Msir)Indications: Malignant neoplasm metastatic to bone (HCC) Take 1 Tablet by mouth in the morning and 1 Tablet before bedtime. 60 Tablet 0 12/17/2023 Active PARoxetine HCl 10 MG Oral Tablet (Paxil) Take 1 Tablet by mouth in the morning. 90 Tablet 3 12/26/2023 Active traMADol HCl 50 MG Oral Tablet (Ultram)Indication s:Malignant neoplasm metastatic to bone (HCC) Take 2 Tablets by mouth 3 times a day as needed for Pain, Moderate. 180 Tablet 0 12/31/2023 Active Clopidogrel Bisulfate 75 MG Oral Tablet (pLAVix) TAKE ONE TABLET BY MOUTH IN THE MORNING 30 Tablet 5 01/06/2024 01/05/2025 Active Clopidogrel Bisulfate 75 MG Oral Tablet (pLAVix) TAKE ONE TABLET BY MOUTH IN THE MORNING 30 Tablet 5 06/11/2023 01/05/2024 Discontinue d(Refill) documented as of this encounter (statuses as of 01/06/2024) Active Problems Problem Noted Date Diagnosed Date [...] as of this encounter (statuses as of 01/06/2024) Resolved Problems Problem Noted Date Diagnosed Date [...] as of this encounter (statuses as of 01/06/2024) Immunizations No known immunizationsdocumented as of this [...] No 01/25/2021 documented as of this encounter Miscellaneous Notes * Telephone Encounter - Nima Norton MD - 01/06/2024 11:43 AM EDTSigned Prescriptions: Disp Refills Clopidogrel Bisulfate 75 MG Oral Tablet (p*30 Tab*5 Sig: TAKE ONE TABLET BY MOUTH IN THE MORNING Authorizing Provider: NIMA NORTON * Telephone Encounter - Tita Tomlinson, MED ASSIST - 01/05/2024 11:49 AM EDT Pending Prescriptions: Disp Refills Clopidogrel Bisulfate 75 MG Oral Tablet (p*30 Tab*5 Sig: TAKE ONE TABLET BY MOUTH IN THE MORNING * Telephone Encounter - Tita Tomlinson MED ASSIST - 01/05/2024 11:49 AM EDT Did you pend patient's preferred pharmacy and medication before forwarding?yes Pharmacy: [facility] Pending Prescriptions: Disp Refills Clopidogrel Bisulfate 75 MG Oral Tablet (*30 Tab*5 Sig: TAKE ONE TABLET BY MOUTH IN THE MORNING Last Visit: 12/26/2023 (in office), 05/04/2022 (telemedicine) Next Visit: 07/01/2024 If no future appointments scheduled, and last appointment is greater than a year ago, please schedule patient for a follow-up appointment Last date the medication was ordered: Is this request for a controlled substance?No Urine Drug Screen:No results found. However, due to the size of the patient record, not all encounters were searched. Please check Results Review for a complete set of results. Patient Phone Numbers Labs: Lab Results Component Value Date/Time CREAT 1.2 12/14/2023 09:02 AM CREAT 1.1 04/29/2020 10:10 AM POTASSIUM 4.3 12/14/2023 09:02 AM POTASSIUM 4.5 04/29/2020 10:10 AM TSH 2.33 09/27/2007 08:23 AM LDLCALC 100 12/14/2023 09:02 AM LDLCALC 36 04/29/2020 10:10 AM LDLDIRECT 73 02/14/2022 12:25 PM LDLDIRECT NOT APPLICABLE 04/29/2020 10:10 AM ALT 7 (L) 12/14/2023 09:02 AM ALT 49 05/14/2016 10:49 AM HGBA1C 6.3 (H) 12/14/2023 09:02 AM HGBA1C 8.3 (H) 04/29/2020 10:10 AM documented in this encounter Plan of Treatment Upcoming Encounters Date Type Department Care Team (Late st Contact Info) Description 01/17/2024 10:40 AM EDT Laboratory Laboratory [facility] [address] [place] [address] Isis Melara [facility] [address] [facility] [place] [address] 01/17/2024 11:15 AM EDT Office Visit Hematology/Oncology [facility] [place] [address] [place] [phone] Elio Queen MD 200 [facility] [place] [address] 01/17/2024 11:45 AM EDT Immunization/Injectio n Hematology/Oncology Treatment, [place] [address] [place] [phone] Nurse, Med 4 200 [facility] [place] [address] 05/20/2024 2:15 PM EDT Office Visit Urology, [facility] [address] [place] [address] Isaías Novak MD [address] [facility] [address] [place] [address] 07/01/2024 4:00 PM EDT Office Visit Family Practice [facility] [address] [place] [address] Nima Norton MD [address] [facility] [place] [address] Health Maintenance Due Date Last Done Comments DISCUSS TOBACCO CESSATION (REFER TO SMARTSET #9611) 1960 COVID-19 Vaccine (#1) 1965 Pneumococcal Vaccine: [...] Additional history exists CKD PHOS USE SMARTSET 16999 11/28/202411/02, 10/10/2023, 09/10/2023, Additional history exists CKD HGB USE SMARTSET 93619 12/13/202412/13, 12/14/2023, 11/29/2023, Additional history exists GARDASIL-HPV IMMUNIZATION SERIES Aged Out No longer eligible based on patient's age to complete this topic Hepatitis B Aged Out No longer eligi ble based on patient's age to complete this topic MENINGOCOCCAL (MENACTRA/MENVEO) Aged Out No longer eligible based on patient's age to complete this topic documented as of this encounter Medical Devices Implanted Type Area Pastor Device Identifier Shelf Expiration Date Model / Serial / Lot Stent Trnscarotid Enroute 7x40 - [id number] Implanted:Qty: 1 on 01/25/2021 by Zeinab Robert MD at [facility] Left: [facility] [id number] 05/31/2023 SR-0740-C S / / [id number] documented as of this encounter Advance Directives Latest Code Status on File Code Status Date Activated Date Inactivated Comments Full Code 01/25/2021 10:53 AM 01/26/2021 1:19 PM This order reflects the patients wishes and were consensually agreed upon. Care Teams Phone Technician Relationship Specialty Start Date End Date Nima Norton MD [address] [place] [address] PCP - General Family Medicine 01/24/21 documented as of this encounter
--- OUTSIDE RECORDS SUMMARY | 2024-01-12 09:03 | External Medical Summary | Summary of Care ---
Author Name Unknown Organization [facility] Address [address] [place] [address] Phone [phone] Care Team Providers Care Physical Ther Name Role Phone Nima Norton MD Primary Care Provider [phone] Reason for Visit * Reason Comments Medication Refill Encounter Details Date Type Department Care Team (Late st Contact Info) Description 12/31/2023 Refill Family Practice [facility] [address] [place] [address] Nima Norton MD [address] [place] [address] Malignant neoplasm metastatic to bone (HCC) Allergies Active Allergy Reactions Criticality Noted Date Comments Amoxicillin-Pot Clavulanate 05/17/20 22 Dizziness and confused documented as of this encounter (statuses as of 12/31/2023) Medications Medication Sig Dispensed Refills Start Date End Date Status [employer] SYSTEM W/DEVICE KITIndications:DM type 2, goal A1c [...] Pain, Moderate. 180 Tablet 0 12/31/2023 Active traMADol HCl 50 MG Oral Tablet (Ultram)Indication s:Malignant neoplasm metastatic to bone (HCC) Take 2 Tablets by mouth 3 times a day as needed for Pain, Moderate. 180 Tablet 0 11/30/2023 12/31/2023 Discontinue d(Refill) documented as of this encounter (statuses as of 12/31/2023) Active Problems Problem Noted Date Diagnosed Date [...] as of this encounter (statuses as of 12/31/2023) Resolved Problems Problem Noted Date Diagnosed Date [...] as of this encounter (statuses as of 12/31/2023) Immunizations No known immunizationsdocumented as of this [...] Telephone Encounter - Nima Norton MD - 12/31/2023 1:14 PM EDTSigned Prescriptions: Disp Refills traMADol HCl 50 MG Oral Tablet (Ultram) 180 Ta*0 Sig: Take 2 Tablets by mouth 3 times a day as needed for Pain, Moderate.Authorizing Provider: NIMA NORTON-- * Telephone Encounter - Nima Norton MD - 12/31/2023 1:14 PM EDTSigned Prescriptions: Disp Refills traMADol HCl 50 MG Oral Tablet (Ultram) 180 Ta*0 Sig: Take 2 Tablets by mouth 3 times a day as needed for Pain, Moderate. Authorizing Provider: NIMA NORTON * Telephone Encounter - Ysabel Mcghee LPN - 12/31/2023 11:47 AM EDT Pt is currently out of medication documented in this encounter Plan of Treatment Upcoming Encounters Date Type Department Care Team (Late st Contact Info) Description 01/04/2024 1:00 PM EDT Hospital Encounter Radiology, [address] [address] 01/17/2024 10:40 AM EDT Laboratory Laboratory [facility] 200 [facility] [place] [phone] [place] [address] [address] [place] [address] 01/17/2024 11:15 AM EDT Office Visit Hematology/Oncology [facility] [place] [address] [place] [phone] Elio Queen MD 200 [facility] [place] [address] 01/17/2024 11:45 AM EDT Immunization/Injectio n Hematology/Oncology Treatment, [place] [facility] [phone] Nurse, Med [address] [place] [address] 05/20/2024 2:15 PM EDT Office Visit Urology, [facility] 132 [facility] [place] [address] Isaías Novak MD [address] [place] [address] [place] [address] 07/01/2024 4:00 PM EDT Office Visit Family Practice [facility] [address] [place] [address] Nima Norton MD [address] [place] [address] Health Maintenance Due Date Last Done Comments DISCUSS TOBACCO CESSATION (REFER TO SMARTSET #1989) 1960 COVID-19 Vaccine (#1) 1964 Pneumococcal Vaccine: [...] Additional history exists CKD PHOS USE SMARTSET 56199 11/28/202411/02, 10/10/2023, 09/10/2023, Additional history exists CKD HGB USE SMARTSET 66170 12/13/202412/13, 12/14/2023, 11/29/2023, Additional history exists GARDASIL-HPV IMMUNIZATION SERIES Aged Out No longer eligible based on patient's age to complete this topic Hepatitis B Aged Out No longer eligi ble based on patient's age to complete this topic MENINGOCOCCAL (MENACTRA/MENVEO) Aged Out No longer eligible based on patient's age to complete this topic documented as of this encounter Medical Devices Implanted Type Area Advertising Production Manager Device Identifier Shelf Expiration Date Model / Serial / Lot Stent Trnscarotid Enroute 7x40 - [id number] Implanted:Qty: 1 on 01/25/2021 by Zeinab Robert MD at [facility] Left: [facility] [id number] 05/31/2023 SR-0740-C S / / [id number] documented as of this encounter Visit Diagnoses Diagnosis Malignant neoplasm metastatic to bone (HCC) Secondary malignant neoplasm of bone and bone marrow documented in this encounter Advance Directives Latest Code Status on File Code Status Date Activated Date Inactivated Comments Full Code 01/25/2021 10:53 AM 01/26/2021 1:19 PM This order reflects the patients wishes and were consensually agreed upon. Care Teams Physical Ther Relationship Specialty Start Date End Date Nima Norton MD [address] [place] [address] PCP - General Family Medicine 01/24/21 documented as of this encounter
--- OUTSIDE RECORDS SUMMARY | 2024-01-12 09:03 | External Medical Summary | Summary of Care ---
Author Name Unknown Organization [facility] Address [address] [place] [address] Phone [phone] Care Team Providers Care Needle Valve Operator Name Role Phone Dru Fritz MD Primary Care Provider [phone] [phone] Reason for Visit * Reason Comments Chemotherapy Taxotere C3D1 * Episode Based Medications (Routine) - Closed Specialty Diagnoses / Procedures Referred By Contjanene t Referred To Contact Diagnoses Encounter for antineoplastic chemotherapy Prostate cancer metastatic to multiple sites (HCC) Malignant neoplasm metastatic to bone (HCC) Procedures DC INJECTION, UDENYCA 0.5 MG DC DOCETAXEL INJECTION Elio Queen MD [address] [place] [address] Anc Hem/Onc Valentín Melara DEPT CLOSED - 08/14/23 [address] [place] [address] Referral ID Status Reason Start Date Expiration Date Visits Re quested Visits Authorized [id number] Closed 2023 02/20/[phone] Encounter Details Date Type Department Care Team (Latest Contact Info) Description 11/01/2023 12:00 PM EST Hem/Onc Treatment Hematology/Oncolog y Treatment, [place] [address] [place] [address] Saritha, Chair 1 Hem On[address] [place] [address] Encounter for antineoplastic chemotherapy*; Prostate cancer metastatic to multiple sites (HCC); Malignant neoplasm metastatic to bone (HCC) Allergies Active Allergy Reactions Criticality Noted Date Comments Amoxicillin-Pot Clavulanate 05/17/20 22 Dizziness and confused documented as of this encounter (statuses as of 12/25/2023) Medications Medication Sig Dispensed Refills Start Date End Date Status Audience SYSTEM W/DEVICE KITIndications:D M type 2, goal A1c below 7 Use up to four times a day as directed 1 Kit 0 4 Active Aspirin 81 MG TBEC Take 1 Tablet by mouth in the morning. 0 Active sildenafil (REVATIO) 20 MG Tablet Take 3 tablets by mouth 1 hour prior to sexual activity 30 Tab 5 8 Active Blood Glucose Monitoring Suppl (TouchOfModern.comUCH VERIO) w/Device KIT Use up to 4 [...] neuropathy, without long-term current use of insulin ([facility]) TAKE ONE TABLET BY MOUTH DAILY [...] 0 3 Active Self-Cath Coude Tip #14 iranian. Use every 4-6 hours and as needed [...] 12/26/2023 1:00 PM EDT Office Visit Cardiology, [facility] [address] [place] [address] Sunny Ricketts, [address] [place] [address] 12/26/2023 2:40 PM EDT Office Visit Family Practice [facility] [address] [place] [address] Dru Fritz MD [address] [place] [address] 01/04/2024 1:00 PM EDT Appointment Radiology, [address] [address] 01/09/2024 8:30 AM EDT Office Visit Cardiology, [facility] 132 [facility] [place] [address] Danay Howell PA-C [address] [place] [address] 01/17/2024 10:40 AM EDT Laboratory Laboratory [facility] [place] [phone] [facility] [place] [address] 01/17/2024 11:15 AM EDT Office Visit Hematology/Oncology [facility] [place] [address] [facility] [place] [phone] Elio Queen MD 200 [facility] [place] [address] 01/17/2024 11:45 AM EDT Immunization/Injectio n Hematology/Oncology Treatment, [place] [facility] [phone] Nurse, Med [address] [place] [address] 05/20/2024 2:15 PM EDT Office Visit Urology, [facility] [address] [place] [address] Isaías Novak MD 27 [facility] [place] [address] [place] [address] Health Maintenance Due Date Last Done Comments DISCUSS TOBACCO CESSATION (REFER TO SMARTSET #7470) 1960 COVID-19 Vaccine (#1) 1964 Pneumococcal Vaccine: [...] Additional history exists CKD PHOS USE SMARTSET 49322 11/28/202411/02, 10/10/2023, 09/10/2023, Additional history exists CKD HGB USE SMARTSET 62732 12/13/202412/13, 12/14/2023, 11/29/2023, Additional history exists GARDASIL-HPV IMMUNIZATION SERIES Aged Out No longer eligible based on patient's age to complete this topic Hepatitis B Aged Out No longer eligi ble based on patient's age to complete this topic MENINGOCOCCAL (MENACTRA/MENVEO) Aged Out No longer eligible based on patient's age to complete this topic documented as of this encounter Medical Devices Implanted Type Area Nuclear Medicine Technician Device Identifier Shelf Expiration Date Model / Serial / Lot Stent Trnscarotid Enroute 7x40 - [id number] Implanted:Qty: 1 on 01/25/2021 [place]ab Robert [place] [facility] [place] [facility] [id number] 05/31/2023 SR-0740-C S / / [id number] documented as of this encounter Visit Diagnoses [...] and were consensually agreed upon. Care Teams Needle Valve Operator Relationship Specialty Start Date End Date Dru Fritz MD [address] [place] [address] PCP - General Family Medicine 01/24/21 documented as of this encounter
--- OUTSIDE RECORDS SUMMARY | 2024-01-12 09:04 | External Medical Summary | Summary of Care ---
Author Name Unknown Organization [facility] Address [address] [place] [address] Phone [phone] Care Team Providers Care Paste Mixing Supervisor Name Role Phone Dru Fritz MD Primary Care Provider [phone] [phone] Reason for Visit * Reason Comments Chemotherapy Taxotere C3D1 * Episode Based Medications (Routine) - Closed Specialty Diagnoses / Procedures Referred By Contjanene t Referred To Contact Diagnoses Encounter for antineoplastic chemotherapy Prostate cancer metastatic to multiple sites (HCC) Malignant neoplasm metastatic to bone (HCC) Procedures LA INJECTION, UDENYCA 0.5 MG LA DOCETAXEL INJECTION Elio Queen MD [address] [place] [address] Anc Hem/Onc Valentín Melara DEPT CLOSED - 08/14/23 [address] [place] [address] Referral ID Status Reason Start Date Expiration Date Visits Re quested Visits Authorized [id number] Closed 2023 02/20/[phone] Encounter Details Date Type Department Care Team (Latest Contact Info) Description 11/01/2023 12:00 PM EST Hem/Onc Treatment Hematology/Oncolog y Treatment, [place] [address] [place] [address] Saritha, Chair 1 Hem Onc [address] [place] [address] Encounter for antineoplastic chemotherapy*; Prostate cancer metastatic to multiple sites (HCC); Malignant neoplasm metastatic to bone (HCC) Allergies Active Allergy Reactions Criticality Noted Date Comments Amoxicillin-Pot Clavulanate 05/17/20 22 Dizziness and confused documented as of this encounter (statuses as of 12/25/2023) Medications Medication Sig Dispensed Refills Start Date End Date Status [employer] SYSTEM W/DEVICE KITIndications:D M type 2, goal A1c below 7 Use up to four times a day as directed 1 Kit 0 4 Active Aspirin 81 MG TBEC Take 1 Tablet by mouth in the morning. 0 Active sildenafil (REVATIO) 20 MG Tablet Take 3 tablets by mouth 1 hour prior to sexual activity 30 Tab 5 8 Active Blood Glucose Monitoring Suppl (RingadocUCH VERIO) w/Device KIT Use up to 4 [...] neuropathy, without long-term current use of insulin ([facility]) TAKE ONE TABLET BY MOUTH DAILY IN [...] 0 3 Active Self-Cath Coude Tip #14 ecuadorean. Use every 4-6 hours and as needed [...] Chair 5, Taxotere. Pt seen by DANIELLE eLo; refer to OV notes. Labs okay for treatment. PIVestablished; NSS infusing. Safety and Risk for Injury Patient will remain free from injury. Ensure appropriate safety devices are available. Provide and maintain safe environment. documented in this encounter Plan of Treatment Upcoming Encounters Date Type Department Care Team (Late st Contact Info) Description 12/26/2023 1:00 PM EDT Office Visit Cardiology, [facility] [address] [place] [address] Sunny Ricketts, [address] [place] [address] 12/26/2023 2:40 PM EDT Office Visit Family Practice [facility] [address] [place] [address] Dru Fritz MD [address] [place] [address] 01/04/2024 1:00 PM EDT Appointment Radiology, [address] [address] 01/09/2024 8:30 AM EDT Office Visit Cardiology, [facility] 132 [facility] [place] [address] Dnaay Howell PA-C [address] [place] [address] 01/17/2024 10:40 AM EDT Laboratory Laboratory [facility] 200 [facility] [place] [phone] [facility] 200 [facility] [place] [address] 01/17/2024 11:15 AM EDT Office Visit Hematology/Oncology [facility] [place] 200 [facility] [place] [phone] Elio Queen MD 200 [facility] [place] [address] 01/17/2024 11:45 AM EDT Immunization/Injectio n Hematology/Oncology Treatment, [place] [facility] [phone] Nurse, Med [address] [place] [address] 05/20/2024 2:15 PM EDT Office Visit Urology, [facility] [address] [place] [address] Isaías Novak MD 27 [facility] [address] [place] [address] Health Maintenance Due Date Last Done Comments DISCUSS TOBACCO CESSATION (REFER TO SMARTSET #9616) 1960 COVID-19 Vaccine (#1) 1965 Pneumococcal Vaccine: [...] Additional history exists CKD PHOS USE SMARTSET 07483 11/28/202411/02, 10/10/2023, 09/10/2023, Additional history exists CKD HGB USE SMARTSET 94022 12/13/202412/13, 12/14/2023, 11/29/2023, Additional history exists GARDASIL-HPV IMMUNIZATION SERIES Aged Out No longer eligible based on patient's age to complete this topic Hepatitis B Aged Out No longer eligi ble based on patient's age to complete this topic MENINGOCOCCAL (MENACTRA/MENVEO) Aged Out No longer eligible based on patient's age to complete this topic documented as of this encounter Medical Devices Implanted Type Area Director Pediatric Device Identifier Shelf Expiration Date Model / Serial / Lot Stent Trnscarotid Enroute 7x40 - [id number] Implanted:Qty: 1 on 01/25/2021 by Zeinab Robert MD [place] [facility] [place]: [facility] [id number] 05/31/2023 SR-0740-C S / / [id number] documented as of this encounter Visit Diagnoses [...] and were consensually agreed upon. Care Teams Paste Mixing Supervisor Relationship Specialty Start Date End Date Dru Fritz MD [address] [place] [address] PCP - General Family Medicine 01/24/21 documented as of this encounter
--- OUTSIDE RECORDS SUMMARY | 2024-01-12 09:04 | External Medical Summary ---
Author Name Unknown Address Unknown Organization K01:LABORATORY [facility] - [address] [place] [address] Laboratory Report Ordering Provider Test Date Status PATRICE QUINONES 12/14/2023 09:02:18 Final Observation Date Value Abnormality Reference (Units ) Status BUN 12/14/2023 09:02:18 14 6-20 (mg/dL) Final Creatinine 12/14/2023 09:02:18 1.2 0.6-1.2 (mg/dL) Final Glomerular filtration rate/1.73 sq M.predicted [Volume Rate/Area] in Serum, Plasma or Blood by Creatinine-based formula (CKD-EPI) 12/14/2023 09:02:18 65 >=60 (mL/min) Final eGFR is calculated based on the CKD-EPI 2020 equation SODIUM 12/14/2023 09:02:18 141 135-146 (m mol/L) Final Potassium 12/14/2023 09:02:18 4.3 3.5-5.1 (m mol/L) Final Cl 12/14/2023 09:02:18 108 Above high normal 98 -107 (mmol/L) Final CO2 12/14/2023 09:02:18 22 22-32 (mmo l/L) Final Anion gap 12/14/2023 09:02:18 11 7-15 (mmol /L) Final Glucose 12/14/2023 09:02:18 131 Above high normal 70 -120 (mg/dL) Final Albumin 12/14/2023 09:02:18 3.6 Below low normal 3.8 -5.0 (g/dL) Final AST (Aspartate aminotransferase) 12/14/2023 09:02:18 15 10-50 (U/L) Fin al Alk Phos 12/14/2023 09:02:18 419 Above high normal 35 -130 (U/L) Final Bilirubin, Total 12/14/2023 09:02:18 <0.2 <=1 .2 (mg/dL) Final Calcium 12/14/2023 09:02:18 7.8 Below low normal 8.4 -10.2 (mg/dL) Final Protein 12/14/2023 09:02:18 5.9 Below low normal 6.0 -8.3 (g/dL) Final ALT (Alanine aminotransferase) 12/14/2023 09:02:18 7 Below low normal 10-50 (U/L) Final Performing Location LABORATORY [facility] - [facility] [address]. [facility] [address]
--- OUTSIDE RECORDS SUMMARY | 2024-01-12 09:04 | External Medical Summary | Summary of Care ---
Author Name Unknown Organization [facility] Address [address] [place] [facility] [place] [address] Phone [phone] Care Team Providers Care Roof Foreman Name Role Phone Dru Fritz MD Primary Care Provider [phone] Encounter Details Date Type Department Care Team (Late st Contact Info) Description 12/11/2023 Orders Only PATIENT PORTAL DO NOT DELETE THIS DEPT USED BY [place] SCHNEIDER [id number] Allergies Active Allergy Reactions Criticality Noted Date Comments Amoxicillin-Pot Clavulanate 05/17/20 22 Dizziness and confused documented as of this encounter (statuses as of 12/11/2023) Medications Medication Sig Dispensed Refills Start Date End Date Status BeehiveID SYSTEM W/DEVICE KITIndications:DM type 2, goal A1c [...] for Nausea. 30 Tablet 2 09/13/2023 Active predniSONE 5 MG Oral Tablet (Deltasone)Indicat ions:Prostate cancer metastatic to multiple sites (HCC) Take 1 Tablet by mouth in the morning and 1 Tablet before bedtime. 60 Tablet 5 09/13/2023 Active dexAMETHasone 4 MG Oral Tablet (Decadron)Indicati ons:Prostate cancer metastatic to multiple sites (HCC) Take 8mg (2 tabs) twice a day x3 days starting the day before chemotherapy 72 Tablet 0 09/13/2023 Active Loratadine 10 MG Oral Tablet (Claritin)Indicati ons:Prostate cancer metastatic to multiple sites (HCC) Take 10mg (1 tab) daily x5 days starting the day of chemotherapy 30 Tablet 0 09/13/2023 Active Morphine Sulfate ER 15 MG [...] 11/30/2023 Active linaGLIPtin 5 MG Oral Tablet (Tradjenta)Indicat ions:Type 2 diabetes mellitus with diabetic neuropathy, without long-term current use of insulin (HCC) TAKE ONE TABLET BY MOUTH EVERY MORNING 90 Tablet 1 12/10/2023 12/09/2024 Active documented as of this encounter (statuses as of 12/11/2023) Active Problems Problem Noted Date Diagnosed Date [...] as of this encounter (statuses as of 12/11/2023) Resolved Problems Problem Noted Date Diagnosed Date [...] as of this encounter (statuses as of 12/11/2023) Immunizations No known immunizationsdocumented as of this [...] 2:40 PM EDT Office Visit Family Practice [facility] [address] [address] Dru Fritz MD [address] [place] [address] 01/17/2024 10:40 AM EDT Laboratory Laboratory [facility] [address] [place] [address] Isis Melara [address] [place] [address] 01/17/2024 11:15 AM EDT Office Visit Hematology/Oncology [facility] [place] [address] [place] [address] Elio Queen MD [address] [facility] [place] [address] 01/17/2024 11:45 AM EDT Immunization/Injectio n Hematology/Oncology Treatment, [place] [address] [place] [address] Nurse, Med [address] [place] [address] 05/20/2024 2:15 PM EDT Office Visit Urology, [facility] [address] [place] [address] Isaías Novak MD [address] [place] [address] [place] [address] Health Maintenance Due Date Last Done Comments DISCUSS TOBACCO CESSATION (REFER TO SMARTSET #0208) 1959 COVID-19 Vaccine (#1) 1965 Pneumococcal Vaccine: [...] exists Influenza Vaccine (FLU shot) (#1) 2023 HbA1c 07/17/2023 01/15/2023, 05/01, 02/14/2022, Additional history exists GFR 05/29/2024 11/29/2023, 11/02, 10/31/2023, Additional history exists CKD HGB USE SMARTSET 06566 11/28/2024, 11/29/2023, 11/22/2023, Additional history exists CKD PHOS USE SMARTSET 22847 11/28/202411/02, 10/10/2023, 09/10/2023, Additional history exists GARDASIL-HPV IMMUNIZATION SERIES Aged Out No longer eligible based on patient's age to complete this topic Hepatitis B Aged Out No longer eligi ble based on patient's age to complete this topic MENINGOCOCCAL (MENACTRA/MENVEO) Aged Out No longer eligible based on patient's age to complete this topic documented as of this encounter Medical Devices Implanted Type Area Property Investor Device Identifier Shelf Expiration Date Model / Serial / Lot Stent Trnscarotid Enroute 7x40 - [id number] Implanted:Qty: 1 on 01/25/2021 by Zeinab Robert MD at [facility] Left: [facility] [id number] 05/31/2023 SR-0740-C S / / [id number] documented as of this encounter Advance Directives Latest Code Status on File Code Status Date Activated Date Inactivated Comments Full Code 01/25/2021 10:53 AM 01/26/2021 1:19 PM Thi s order reflects the patients wishes and were consensually agreed upon. Care Teams Roof Foreman Relationship Specialty Start Date End Date Dru Fritz MD [address] [place] [address] PCP - General Family Medicine 01/24/21 documented as of this encounter
--- OUTSIDE RECORDS SUMMARY | 2024-01-12 09:04 | External Medical Summary | Summary of Care ---
Author Name Unknown Organization [facility] Address [address] [facility] [place] [address] Phone [phone] Care Team Providers Care Frit Mixer And Burner Name Role Phone Nima Norton MD Primary Care Provider [phone] Reason for Visit * Reason Comments Medication Refill Encounter Details Date Type Department Care Team (Late st Contact Info) Description 12/09/2023 Refill Family Practice [facility] [address] [place] [address] Nima Norton MD [address] [place] [address] Type 2 diabetes mellitus with diabetic neuropathy, without long-term current use of insulin ([facility]) Allergies Active Allergy Reactions Criticality Noted Date Comments Amoxicillin-Pot Clavulanate 05/17/20 22 Dizziness and confused documented as of this encounter (statuses as of 12/10/2023) Medications Medication Sig Dispensed Refills Start Date End Date Status [facility] SYSTEM W/DEVICE KITIndications:DM type 2, goal A1c [...] 0 01/12/2020 Active Acetaminophen 500 MG Oral TabletIndications :Takes [...] TWICE A DAY 180 Tablet 3 05/03/2023 4 Active Clopidogrel Bisulfate 75 MG Oral Tablet (pLAVix) TAKE ONE TABLET BY MOUTH IN THE MORNING 30 Tablet 5 06/11/2023 4 Active K-Phos 500 MG Oral Tablet (potassium phosphate)Indicat ions:Hypophosphat emia TAKE ONE TABLET BY MOUTH TWICE A DAY 180 Tablet 1 07/17/2023 Active Empagliflozin 25 MG Oral Tablet (Jardiance)Indica tions:Type 2 diabetes mellitus with diabetic neuropathy, without long-term current use of insulin (HCC) TAKE ONE TABLET BY MOUTH DAILY IN THE MORNING 90 Tablet 3 08/15/2023 4 Active Alfuzosin HCl ER 10 MG Oral Tablet Extended Release 24 Hour (Uroxatral) TAKE ONE TABLET BY MOUTH EVERY DAY 90 Tablet 3 08/27/2023 4 Active Atorvastatin Calcium 80 MG Oral Tablet (Lipitor)Indicati ons:History of CVA (cerebrovascular accident),Dyslipi demia TAKE ONE TABLET BY MOUTH EVERY DAY IN THE MORNING 90 Tablet 2 08/27/2023 4 Active Ondansetron HCl 8 MG Oral Tablet (Zofran)Indicatio ns:Prostate cancer metastatic to multiple sites (HCC) Take 1 Tablet by mouth every 8 hours as needed for Nausea. 30 Tablet 2 09/13/2023 Active Prochlorperazine Maleate 10 MG Oral Tablet (Compazine)Indica tions:Prostate cancer metastatic to multiple sites (HCC) Take 1 Tablet by mouth every 6 hours as needed for Nausea. 30 Tablet 2 09/13/2023 Active predniSONE 5 MG Oral Tablet (Deltasone)Indica tions:Prostate cancer metastatic to multiple sites (HCC) Take 1 Tablet by mouth in the morning and 1 Tablet before bedtime. 60 Tablet 5 09/13/2023 Active dexAMETHasone 4 MG Oral Tablet (Decadron)Indicat ions:Prostate cancer metastatic to multiple sites (HCC) Take 8mg (2 tabs) twice a day x3 days starting the day before chemotherapy 72 Tablet 0 09/13/2023 Active Loratadine 10 MG Oral Tablet (Claritin)Indicat ions:Prostate [...] 11/30/2023 Active linaGLIPtin 5 MG Oral Tablet (Tradjenta)Indica tions:Type 2 diabetes mellitus with diabetic neuropathy, without long-term current use of insulin ([facility]) TAKE ONE TABLET BY MOUTH EVERY MORNING 90 Tablet 1 12/10/2023 5 Active linaGLIPtin 5 MG Oral Tablet (Tradjenta)Indica tions:Type 2 diabetes mellitus with diabetic neuropathy, without long-term current use of insulin ([facility]) TAKE ONE TABLET BY MOUTH EVERY MORNING 90 Tablet 0 09/10/2023 4 Discontinue d(Refill) documented as of this encounter (statuses as of 12/10/2023) Active Problems Problem Noted Date Diagnosed Date [...] as of this encounter (statuses as of 12/10/2023) Resolved Problems Problem Noted Date Diagnosed Date [...] as of this encounter (statuses as of 12/10/2023) Immunizations No known immunizationsdocumented as of this [...] encounter Miscellaneous Notes * Telephone Encounter - Yakov Bass [facility] - 12/10/2023 1:21 PM EDT Signed Prescriptions: Disp Refills linaGLIPtin 5 MG Oral Tablet (Tradjenta) 90 Tab*1 Sig: TAKE ONE TABLET BY MOUTH EVERY MORNINGAuthorizing Provider: NIMA NORTON User: YAKOV BASS documented in this encounter Plan of Treatment Upcoming Encounters Date Type Department Care Team (Late st Contact Info) Description 12/26/2023 2:40 PM EDT Office Visit Family Practice [facility] [address] [place] [address] Nima Norton MD [address] [facility] [place] [address] 01/17/2024 10:40 AM EDT Laboratory Laboratory [facility] [address] [place] [address] [facility] 200 [facility] [place] [address] 01/17/2024 11:15 AM EDT Office Visit Hematology/Oncology [facility] [address] [place] [phone] Elio Queen MD [address] [facility] [place] [address] 01/17/2024 11:45 AM EDT Immunization/Injectio n Hematology/Oncology Treatment, [place] [address] [place] [phone] Nurse, Med 4 [address] [facility] [place] [address] 05/20/2024 2:15 PM EDT Office Visit Urology, [facility] [address] [facility] [place] [address] [facility]ías [facility] [address] [place] [address] Scheduled Orders Name Type Priority Associated Diagnoses Orde r Schedule CREATININE Lab Routine Type 2 diabetes mellitus with diabetic neuropathy, without long-term current use of insulin (HCC) Expected: 12/17/2023 (Approximate), Expires: 12/16/2024 HEMOGLOBIN A1C Lab Routine Type 2 diabetes mellitus with diabetic neuropathy, without long-term current use of insulin (HCC) Expected: 12/17/2023 (Approximate), Expires: 12/16/2024 LIPID PANEL WITH DIRECT LDL IF TG IS HIGH Lab Routine Type 2 diabetes mellitus with diabetic neuropathy, without long-term current use of insulin (HCC) Expected: 12/17/2023 (Approximate), Expires: 12/16/2024 Health Maintenance Due Date Last Done Comments DISCUSS TOBACCO CESSATION (REFER TO SMARTSET #1504) 1960 COVID-19 Vaccine (#1) 1965 Pneumococcal Vaccine: [...] (FLU shot) (#1) 2023 HbA1c 07/17/2023 01/15/2023, 0801/2022, 02/14/2022, Additional history exists GFR 05/29/2024 11/29/2023, 11/02, 10/31/2023, Additional history exists CKD HGB USE SMARTSET 70903 11/28/2024, 11/29/2023, 11/22/2023, Additional history exists CKD PHOS USE SMARTSET 55985 11/28/202411/024, 10/10/2023, 09/10/2023, Additional history exists GARDASIL-HPV IMMUNIZATION SERIES Aged Out No longer eligible based on patient's age to complete this topic Hepatitis B Aged Out No longer eligi ble based on patient's age to complete this topic MENINGOCOCCAL (MENACTRA/MENVEO) Aged Out No longer eligible based on patient's age to complete this topic documented as of this encounter Medical Devices Implanted Type Area Smooth Plater Device Identifier Shelf Expiration Date Model / Serial / Lot Stent Trnscarotid Enroute 7x40 - [id number] Implanted:Qty: 1 on 01/25/2021 by Zeinab Robert MD at [facility] Left: [facility] [id number] 05/31/2023 SR-0740-C S / / [id number] documented as of this encounter Visit Diagnoses Diagnosis Type 2 diabetes mellitus with diabetic neuropathy, without long-term current use of insulin (HCC) documented in this encounter Advance Directives Latest Code Status on File Code Status Date Activated Date Inactivated Comments Full Code 01/25/2021 10:53 AM 01/26/2021 1:19 PM This order reflects the patients wishes and were consensually agreed upon. Care Teams Frit Mixer And Burner Relationship Specialty Start Date End Date Nima Norton MD [address] [place] [address] PCP - General Family Medicine 01/24/21 documented as of this encounter
--- OUTSIDE RECORDS SUMMARY | 2024-01-12 09:04 | External Medical Summary | Summary of Care ---
Author Name Unknown Organization [facility] Address [address] [place] [address] Phone [phone] Care Team Providers Care Car Distributor Name Role Phone Dru Fritz MD Primary Care Provider [phone] [phone] Reason for Referral * Precert (Within 10 days (routine)) - Authorized Specialty Diagnoses / Procedures Referred By Contac t Referred To Contact Radiology Diagnoses Malignant neoplasm metastatic to bone (HCC) Prostate cancer metastatic to multiple sites (HCC) Metastasis to bone (HCC) Procedures NM PROSTATE WITH PLUVICTO Elio Queen MD [address] [place] [address] Referral ID Status Reason Start Date Expiration Date V isits Requested Visits Authorized [id number] Authorized 12/05/2023 6 6 Encounter Details Date Type Department Care Team (Late st Contact Info) Description 12/05/2023 Orders Only Hematology/Oncology [facility] [address] [place] [phone] Elio Queen MD [address] [facility] [place] [address] Prostate cancer metastatic to multiple sites (HCC)*; Malignant neoplasm metastatic to bone (HCC); Metastasis to bone (HCC) Allergies Active Allergy Reactions Criticality Noted Date Comments Amoxicillin-Pot Clavulanate 05/17/20 22 Dizziness and confused documented as of this encounter (statuses as of 12/05/2023) Medications Medication Sig Dispensed Refills Start Date End Date Status [employer] SYSTEM W/DEVICE KITIndications:DM type 2, goal A1c below 7 Use up to four times a day as directed 1 Kit 0 07/28/2014 Active Aspirin 81 MG TBEC Take 1 Tablet by mouth in the morning. 0 Active sildenafil (REVATIO) 20 MG Tablet Take 3 tablets by mouth 1 hour prior to sexual activity 30 Tab 5 03/27/2018 Active Blood Glucose Monitoring Suppl ([facility]) w/Device KIT Use up to 4 [...] MORNING 90 Tablet 2 08/27/2023 08/26/2024 Active linaGLIPtin 5 MG Oral Tablet (Tradjenta)Indicat ions:Type 2 diabetes mellitus with diabetic neuropathy, without long-term current use of insulin (HCC) TAKE ONE TABLET BY MOUTH EVERY MORNING 90 Tablet 0 09/10/2023 09/09/2024 Active Ondansetron HCl 8 MG Oral Tablet [...] Pain, Moderate. 180 Tablet 0 11/30/2023 Active documented as of this encounter (statuses as of 12/05/2023) Active Problems Problem Noted Date Diagnosed Date [...] as of this encounter (statuses as of 12/05/2023) Resolved Problems Problem Noted Date Diagnosed Date [...] as of this encounter (statuses as of 12/05/2023) Immunizations No known immunizationsdocumented as of this [...] as of this encounter Progress Notes * Elio Queen MD - 12/05/2023 12:14 PM EST They needed new standing order for Pulvicto. (order placed). documented in this encounter Plan of Treatment Upcoming Encounters Date Type Department Care Team (Late st Contact Info) Description 12/26/2023 2:40 PM EDT Office Visit Family Practice [facility] [address] [place] [address] Dru Fritz MD [address] [place] [address] 01/17/2024 10:40 AM EDT Laboratory Laboratory [facility] [address] [place] [address] [facility] [address] [facility] [place] [address] 01/17/2024 11:15 AM EDT Office Visit Hematology/Oncology [facility] [address] [facility] [place] [phone] Elio Queen MD [address] [facility] [place] [address] 01/17/2024 11:45 AM EDT Immunization/Injectio n Hematology/Oncology Treatment, [place] [address] [facility] [address] [place] [phone] Nurse, Med [address] [facility] [place] [address] 05/20/2024 2:15 PM EDT Office Visit Urology, [facility] [address] [place] [address] Isaías Novak MD [address] [facility] [place] [address] [place] [address] Scheduled Orders Name Type Priority Associated Diagnoses Orde r Schedule NM PROSTATE WITH PLUVICTO Medical Imaging Routine Malignant neoplasm metastatic to bone (HCC) Prostate cancer metastatic to multiple sites (HCC) Metastasis to bone (HCC) 6 Occurrences starting 12/05/2023 until 01/04/2025 Health Maintenance Due Date Last Done Comments DISCUSS TOBACCO CESSATION (REFER TO SMARTSET #4814) 1960 COVID-19 Vaccine (#1) 1965 Pneumococcal Vaccine: [...] Additional history exists CKD HGB USE SMARTSET 55342 11/28/2024, 11/29/2023, 11/22/2023, Additional history exists CKD PHOS USE SMARTSET 18752 11/28/202411/02, 10/10/2023, 09/10/2023, Additional history exists GARDASIL-HPV IMMUNIZATION SERIES Aged Out No longer eligible based on patient's age to complete this topic Hepatitis B Aged Out No longer eligi ble based on patient's age to complete this topic MENINGOCOCCAL (MENACTRA/MENVEO) Aged Out No longer eligible based on patient's age to complete this topic documented as of this encounter Medical Devices Implanted Type Area Core Inserter Device Identifier Shelf Expiration Date Model / Serial / Lot Stent Trnscarotid Enroute 7x40 - [id number] Implanted:Qty: 1 on 01/25/2021 by Zeinab Robert MD at [facility] Left: [facility] [id number] 05/31/2023 SR-0740-C S / / [id number] documented as of this encounter Visit Diagnoses Diagnosis Prostate cancer metastatic to multiple sites (HCC)- Primary Malignant neoplasm of prostate Malignant neoplasm metastatic to bone (HCC) Secondary malignant neoplasm of bone and bone marrow Metastasis to bone (HCC) Secondary malignant neoplasm of bone and bone marrow documented in this encounter Advance Directives Latest Code Status on File Code Status Date Activated Date Inactivated Comments Full Code 01/25/2021 10:53 AM 01/26/2021 1:19 PM This order reflects the patients wishes and were consensually agreed upon. Care Teams Car Distributor Relationship Specialty Start Date End Date Dur Fritz MD [address] [facility] [place] [address] PCP - General Family Medicine 01/24/21 documented as of this encounter
--- OUTSIDE RECORDS SUMMARY | 2024-01-12 09:04 | External Medical Summary | Summary of Care ---
Author Name Unknown Organization [facility] Address [address] [place] [address] Phone [phone] Care Team Providers Care Terminal Press Operator Name Role Phone Dru Fritz MD Primary Care Provider [phone] [phone] Reason for Visit * Reason Comments IV Therapy Hydration. Encounter Details Date Type Department Care Team (Late st Contact Info) Description 11/22/2023 2:00 PM EST Nurse Only Hematology/Oncology Treatment, [place] [address] [place] [address] Saritha, Chair 5 Hem Onc [address] [address] IV Therapy (Hydration. ) Allergies Active Allergy Reactions Criticality Noted Date Comments Amoxicillin-Pot Clavulanate 05/17/20 22 Dizziness and confused documented as of this encounter (statuses as of 12/18/2023) Medications Medication Sig Dispensed Refills Start Date End Date Status Kaymu SYSTEM W/DEVICE KITIndications:DM type 2, goal A1c [...] 09/26/2023 Active linaGLIPtin 5 MG Oral Tablet (Tradjenta)Indica tions:Type 2 diabetes mellitus with diabetic neuropathy, without long-term current use of insulin (HCC) TAKE ONE TABLET BY MOUTH EVERY MORNING 90 Tablet 0 09/10/2023 4 Discontinue d(Refill) traMADol HCl 50 MG Oral Tablet (Ultram)Indicatio ns:Malignant neoplasm metastatic to bone (HCC) Take 2 Tablets by mouth 3 times a day as needed for Pain, Moderate. 180 Tablet 0 11/02/2023 4 Discontinue d(Refill) documented as of this encounter (statuses as of 12/18/2023) Active Problems Problem Noted Date Diagnosed Date [...] as of this encounter (statuses as of 12/18/2023) Resolved Problems Problem Noted Date Diagnosed Date [...] as of this encounter (statuses as of 12/18/2023) Immunizations No known immunizationsdocumented as of this [...] Sign Reading Time Taken Comments Blood Pressure 123/75 11/22/2023 2:06 PM EST Pulse 120 11/22/2023 2:06 PM EST Temperature 36.8 C (98.2 F) 11/22/2023 2:06 PM ES T Respiratory Rate 18 11/22/2023 2:06 PM EST Oxygen Saturation 96% 11/22/2023 2:06 PM EST Inhaled Oxygen Concentration - - Weight - - Height - - Body Mass Index - - documented in this encounter Functional Status Functional [...] as of this encounter Nursing Notes * Zee Hallman RN - 11/22/2023 4:25 PM EST Goals: Patient will remain free from injury. Possible barriers to meeting goals: Fall risk d/t ambulation with IV pole. Stability of the patient: Moderately stable - low risk of patient condition declining or worsening Summary regarding today's goals: Met: Patient remained free of injury. Patient tolerated infusion well. Discharged in stable condition. * Zee Hallman RN - 11/22/2023 2:50 PM EST Chair 2. Patient arrived for hydration. Patients stated patient hasn't been able to keep hydrated and felt patient needed hydration. PIV accessed. Safety and Risk for Injury Patient will remain free from injury. Ensure appropriate safety devices are available. Provide and maintain safe environment. documented in this encounter Plan of Treatment Upcoming Encounters Date Type Department Care Team (Late st Contact Info) Description 12/26/2023 2:40 PM EDT Office Visit [facility] 132 [facility] [place] [address] Dru Fritz MD 132 [facility] [place] [address] 01/04/2024 1:00 PM EDT Appointment Radiology, [address] [address] 01/17/2024 10:40 AM EDT Laboratory Laboratory [facility] [place] 200 [facility] [place] [place] [phone] [facility] Lab [facility] 200 [facility] [place] [address] 01/17/2024 11:15 AM EDT Office Visit Hematology/Oncology [facility] [place] 200 [facility] [place] [phone] Elio Queen MD 200 [facility] [place] [address] 01/17/2024 11:45 AM EDT Immunization/Injectio n Hematology/Oncology Treatment, [place] [address] [facility] [place] [phone] Nurse, Med 200 [facility] [place] [address] 05/20/2024 2:15 PM EDT Office Visit Urology, [facility] [place] [address] Isaías Novak MD [address] [place] [address] [place] [address] Health Maintenance Due Date Last Done Comments DISCUSS TOBACCO CESSATION (REFER TO SMARTSET #0707) 1960 COVID-19 Vaccine (#1) 1965 Pneumococcal Vaccine: [...] Additional history exists CKD PHOS USE SMARTSET 06399 11/28/202411/02, 10/10/2023, 09/10/2023, Additional history exists CKD HGB USE SMARTSET 13899 12/13/202412/13, 12/14/2023, 11/29/2023, Additional history exists GARDASIL-HPV IMMUNIZATION SERIES Aged Out No longer eligible based on patient's age to complete this topic Hepatitis B Aged Out No longer eligi ble based on patient's age to complete this topic MENINGOCOCCAL (MENACTRA/MENVEO) Aged Out No longer eligible based on patient's age to complete this topic documented as of this encounter Medical Devices Implanted Type Area Terrestrial Ecologist Device Identifier Shelf Expiration Date Model / Serial / Lot Stent Trnscarotid Enroute 7x40 - [id number] Implanted:Qty: 1 on 01/25/2021 by Zeinab Robert MD at [facility] Left: [facility] [id number] 05/31/2023 SR-0740-C S / / [id number] documented as of this encounter Visit Diagnoses Diagnosis Malignant neoplasm metastatic to bone (HCC)- Primary Secondary malignant neoplasm of bone and bone marrow Prostate cancer metastatic to multiple sites (HCC) Malignant neoplasm of prostate Dehydration documented in this encounter Administered Medications Inactive Administered Medications - up to 3 most recent administrations Medication Order MAR Action Action Date Dose Rate Site NSS infusion FOR HYDRATION Intravenous, at 500 mL/hr Administer over 2 Hours, ONCE, 1 dose, On Chantel 11/22/23 at 1530 Start Infusion 11/22/2023 2:24 PM EST 1,000 mL 500 mL/hr documented in this encounter Advance Directives Latest Code Status on File Code Status Date Activated Date Inactivated Comments Full Code 01/25/2021 10:53 AM 01/26/2021 1:19 PM This order reflects the patients wishes and were consensually agreed upon. Care Teams Terminal Press Operator Relationship Specialty Start Date End Date Dru Fritz MD [address] [place] [address] PCP - General Family Medicine 01/24/21 documented as of this encounter
--- OUTSIDE RECORDS SUMMARY | 2024-01-12 09:04 | External Medical Summary ---
Author Name Unknown Address Unknown Organization [id number]:[facility] [place] [address] [facility] [place] [address] Laboratory Report Ordering Provider Test Date Status PATRICE QUINONES 12/14/2023 09:02:18 Final Observation Date Value Abnormality Reference (Units ) Status SYNC LEUKOCYTES IN BLOOD BY AUTOMATED COUNT 12/14/2023 09:02:18 9.36 4.00-10.80 (K/uL) Final Segs 12/14/2023 09:02:18 74.1 40.0-75.0 (%) Final Lymphs % 12/14/2023 09:02:18 15.4 Below low normal 18.0-42.0 (%) Final Monos 12/14/2023 09:02:18 6.4 1.0-11.0 (%) Final Eosinophils 12/14/2023 09:02:18 1.2 0.0-6.0 (%) Final Basos 12/14/2023 09:02:18 0.9 0.0-2.0 (%) Final Immature Granulocyte, Percent 12/14/2023 09:02:18 2.0 0.0-2.0 (%) Final Absolute Segs 12/14/2023 09:02:18 6.94 1.80-7.70 (K/uL) Final Lymphs, absolute 12/14/2023 09:02:18 1.44 1.00-4.80 (K/ul) Final Monos, Abs 12/14/2023 09:02:18 0.60 0.00-1.10 (K/uL) Final Eos, Abs 12/14/2023 09:02:18 0.11 0.00-0.70 (K/uL) Final Basos, Abs 12/14/2023 09:02:18 0.08 0.00-0.20 (K/uL) Final Immature Granulocytes, Number 12/14/2023 09:02:18 0.19 0.00-0.20 (K/uL) Final Performing Location [facility] [place] [facility] [address] [facility] [address]
--- OUTSIDE RECORDS SUMMARY | 2024-01-12 09:04 | External Medical Summary ---
Author Name Unknown Address Unknown Organization K01:LABORATORY [facility] - [address] [place] [address] Laboratory Report Ordering Provider Test Date Status PATRICE QUINONES 12/14/2023 09:02:18 Final Observation Date Value Abnormality Reference (Units ) Status PSA 12/14/2023 09:02:18 236.20 Above high normal <4 .10 (ng/mL) Final Performing Location LABORATORY [facility] - [address] [place] [address]
--- OUTSIDE RECORDS SUMMARY | 2024-01-12 09:04 | External Medical Summary ---
Author Name Unknown Address Unknown Organization K01:[facility] [place] [address] [place] [address] Laboratory Report Ordering Provider Test Date Status GUZMAN PRAJAPATIMickey 12/14/2023 09:02:18 Final Observation Date Value Abnormality Reference (Units ) Status Triglyceride 12/14/2023 09:02:18 105 <=174 ( mg/dL) Final Triglyceride Reference Range s (mg/dL):
<150 Acceptable
150-174 Borderline high
175-499 High
>=500 Very high Cholesterol 12/14/2023 09:02:18 169 <200 (mg /dL) Final Total Cholesterol Reference Ranges (mg/dL):
<200 Desirable
200-239 Borderline high
>=240 High HDL 12/14/2023 09:02:18 48 >39 (mg/dL ) Final HDL Cholesterol Reference Ra nges (mg/dL):
>=60 High (Desirable)
<50 Low (Undesirable) For Females
<40 Low (Undesirable) For Males NON-HDL CHOLESTEROL 12/14/2023 09:02:18 121 <=159 (mg/dL) Final Non-HDL Cholesterol Referenc e Range (mg/dL):
<100 Target level for high risk ASCVD patient
<130 Optimal for general population
130-159 Near optimal for general population
160-189 Borderline High
190-219 High
>=220 Very High LDL, (calculated) 12/14/2023 09:02:18 100 <= 129 (mg/dL) Final LDL Cholesterol Reference Ra nges (mg/dL):
<70 Target level for high risk ASCVD patient
<100 Optimal for general population
100-129 Near optimal for general population
130-159 Borderline high
160-189 High
>=190 Very high Performing Location LAB[facility] [place] [address] [facility] [place] [address]
--- OUTSIDE RECORDS SUMMARY | 2024-01-12 09:04 | External Medical Summary ---
Author Name Unknown Address Unknown Organization K01[place] [place] [address] [facility] [address] [facility] [place] [address] Laboratory Report Ordering Provider Test Date Status KALI PRAJAPATI 12/14/2023 09:02:18 Final Observation Date Value Abnormality Reference (Units ) Status HbA1C 12/14/2023 09:02:18 6.3 Above high normal 4. 0-5.6 (%) Final The use of HbA1c to monitor glycemic status is based on normal hemoglobin and HbA composition. This test should not be used in patients with abnormal hemoglobin that affects the half life of the red blood cell or the in vivo glycation rates. Glucose, estimated average 12/14/2023 09:02:18 134 Above high normal <126 (mg/dL) Hilton harrell Performing Location [facility] [place] [address] [facility] [address]
--- OUTSIDE RECORDS SUMMARY | 2024-01-12 09:04 | External Medical Summary | Summary of Care ---
Author Name Unknown Organization [facility] Address [address] [place] [place] [address] Phone [phone] Care Team Providers Care Boiling House Hand Name Role Phone Dru Fritz MD Primary Care Provider [phone] Reason for Visit * Reason Comments Outpatient Testing Encounter Details Date Type Department Care Team (Late st Contact Info) Description 12/14/2023 9:10 AM EDT Laboratory Laboratory [address] [place] [phone] [place] [address] Prostate cancer metastatic to multiple sites ([facility]); Type 2 diabetes mellitus with diabetic neuropathy, without long-term current use of insulin ([facility]) Allergies Active Allergy Reactions Criticality Noted Date Comments Amoxicillin-Pot Clavulanate 05/17/20 22 Dizziness and confused documented as of this encounter (statuses as of 12/14/2023) Medications Medication Sig Dispensed Refills Start Date End Date Status [employer] SYSTEM W/DEVICE KITIndications:DM type 2, goal A1c [...] as of this encounter (statuses as of 12/14/2023) Active Problems Problem Noted Date Diagnosed Date [...] as of this encounter (statuses as of 12/14/2023) Resolved Problems Problem Noted Date Diagnosed Date [...] as of this encounter (statuses as of 12/14/2023) Immunizations No known immunizationsdocumented as of this [...] 2:40 PM EDT Office Visit Family Practice [facility] 132 [place] [address] Dru Fritz MD 132 [place] [address] 01/17/2024 10:40 AM EDT Laboratory [place] [address] [place] [address] 01/17/2024 11:15 AM EDT Office Visit Hematology/Oncology [address] [place] [phone] Elio Queen MD [address] [place] [address] 01/17/2024 11:45 AM EDT Immunization/Injectio n Hematology/Oncology Treatment, [place] [address] [place] [phone] Nurse, Med [facility] [place] [address] 05/20/2024 2:15 PM EDT Office Visit Urology, [facility] 132 [facility] [place] [address] Isaías Novak MD 27 [facility] [place] [address] [place] [address] Pending Results Name Type Priority Associated Diagnoses Date /Time PSA Lab STAT Prostate cancer metastatic to multiple sites (HCC) 12/14/2023 9:02 AM EDT CBC WITH WBC DIFFERENTIAL Lab STAT Prostate cancer metastatic to multiple sites ([facility]) 12/14/2023 9:02 AM EDT COMPREHENSIVE METABOLIC PANEL Lab STAT Prostate cancer metastatic to multiple sites ([facility]) 12/14/2023 9:02 AM EDT HEMOGLOBIN A1C Lab Routine Type 2 diabetes mellitus with diabetic neuropathy, without long-term current use of insulin ([facility]) 12/14/2023 9:02 AM EDT LIPID PANEL WITH DIRECT LDL IF TG IS HIGH Lab Routine Type 2 diabetes mellitus with diabetic neuropathy, without long-term current use of insulin ([facility]) 12/14/2023 9:02 AM EDT CBC Lab STAT Prostate cancer metastatic to multiple sites ([facility]) 12/14/2023 9:02 AM EDT DIFFERENTIAL, AUTOMATED Lab STAT Prostate cancer metastatic to multiple sites ([facility]) 12/14/2023 9:02 AM EDT Health Maintenance Due Date Last Done Comments DISCUSS TOBACCO CESSATION (REFER TO SMARTSET #6981) 1960 COVID-19 Vaccine (#1) 1965 Pneumococcal Vaccine: [...] Additional history exists CKD HGB USE SMARTSET 54087 11/28/2024, 11/29/2023, 11/22/2023, Additional history exists CKD PHOS USE SMARTSET 95068 11/28/202411/02, 10/10/2023, 09/10/2023, Additional history exists GARDASIL-HPV IMMUNIZATION SERIES Aged Out No longer eligible based on patient's age to complete this topic Hepatitis B Aged Out No longer eligi ble based on patient's age to complete this topic MENINGOCOCCAL (MENACTRA/MENVEO) Aged Out No longer eligible based on patient's age to complete this topic documented as of this encounter Medical Devices Implanted Type Area Car Repair Supervisor Device Identifier Shelf Expiration Date Model / Serial / Lot Stent Trnscarotid Enroute 7x40 - [id number] Implanted:Qty: 1 on 01/25/2021 by Zeinab Robert MD at [facility] Left: [facility] [id number] 05/31/2023 SR-0740-C S / / [id number] documented as of this encounter Visit Diagnoses Diagnosis Prostate cancer metastatic to multiple sites (HCC) Malignant neoplasm of prostate Type 2 diabetes mellitus with diabetic neuropathy, without long-term current use of insulin (HCC) documented in this encounter Advance Directives Latest Code Status on File Code Status Date Activated Date Inactivated Comments Full Code 01/25/2021 10:53 AM 01/26/2021 1:19 PM This order reflects the patients wishes and were consensually agreed upon. Care Teams Boiling House Hand Relationship Specialty Start Date End Date Dru Fritz MD 132 [place] [address] PCP - General Family Medicine 01/24/21 documented as of this encounter
--- OUTSIDE RECORDS SUMMARY | 2024-01-12 09:04 | External Medical Summary | Summary of Care ---
Author Name Unknown Organization [facility] Address [address] [place] [address] Phone [phone] Care Team Providers Care Detacker Name Role Phone Dru Fritz MD Primary Care Provider [phone] Reason for Visit * Reason Comments Medication Administration Udencya * Episode Based Medications (Routine) - Closed Specialty Diagnoses / Procedures Referred By Contjanene t Referred To Contact Diagnoses Encounter for antineoplastic chemotherapy Prostate cancer metastatic to multiple sites (HCC) Malignant neoplasm metastatic to bone (HCC) Procedures MN INJECTION, UDENYCA 0.5 MG MN DOCETAXEL INJECTION Elio Queen MD [address] [place] [address] Anc Hem/Onc Valentín [place] DEPT CLOSED - 08/14/23 [address] [place] [phone] Referral ID Status Reason Start Date Expiration Date Visits Re quested Visits Authorized [id number] Closed 2023 02/20/[phone] Encounter Details Date Type Department Care Team (Latest Contact Info) Description 11/02/2023 2:45 PM EST Immunization/ Injection Hematology/Oncology Treatment, [place] [address] [facility] [place] [address] Nurse, Med 4 [address] [place] [address] Encounter for antineoplastic chemotherapy*; Prostate cancer metastatic to multiple sites (HCC); Malignant neoplasm metastatic to bone (HCC) Allergies Active Allergy Reactions Criticality Noted Date Comments Amoxicillin-Pot Clavulanate 05/17/20 22 Dizziness and confused documented as of this encounter (statuses as of 12/25/2023) Medications Medication Sig Dispensed Refills Start Date End Date Status [employer] SYSTEM W/DEVICE KITIndications:D M type 2, goal A1c below 7 Use up to four times a day as directed 1 Kit 0 4 Active Aspirin 81 MG TBEC Take 1 Tablet by mouth in the morning. 0 Active sildenafil (REVATIO) 20 MG Tablet Take 3 tablets by mouth 1 hour prior to sexual activity 30 Tab 5 8 Active Blood Glucose Monitoring Suppl (HaloadUCH VERIO) w/Device KIT Use up to 4 [...] 0 3 Active Self-Cath Coude Tip #14 arabic. Use every 4-6 hours and as needed [...] as of this encounter Nursing Notes * Tash Mcintyre LPN - 11/02/2023 3:18 PM EST Pt arrived for Udencya injection. Administered in JO ANN. Pt tolerated well. Discharged in stable condition. documented in this encounter Plan of Treatment Upcoming Encounters Date Type Department Care Team (Late st Contact Info) Description 12/26/2023 1:00 PM EDT Office Visit Cardiology, [facility] [address] [place] [address] Sunny Ricketts DO 132 [place] [address] 12/26/2023 2:40 PM EDT Office Visit Family Practice [facility] [address] [place] [address] Dru Fritz MD [address] [place] [address] 01/04/2024 1:00 PM EDT Appointment Radiology, [address] [address] 01/09/2024 8:30 AM EDT Office Visit Cardiology, [facility] [address] [place] [address] Danay Howell PA-C [address] [place] [address] [place], [place] [phone] 01/17/2024 10:40 AM EDT Laboratory Laboratory [place] [place] [address] [place] [phone] Saritha, Lab Scenery [address] [place] [address] 01/17/2024 11:15 AM EDT Office Visit Hematology/Oncology [facility] 200 [facility] [place], [place] [address] Elio Queen MD 200 [facility] [place] [address] 01/17/2024 11:45 AM EDT Immunization/Injectio n Hematology/Oncology Treatment, [place] [facility] [address] Nurse, Med 200 [facility] [place] [address] 05/20/2024 2:15 PM EDT Office Visit Urology, [facility] 132 [facility] [place] [address] Isaías Novak MD 27 [facility] [place] [address] [place] [address] Health Maintenance Due Date Last Done Comments DISCUSS TOBACCO CESSATION (REFER TO SMARTSET #6012) 1960 COVID-19 Vaccine (#1) 1965 Pneumococcal Vaccine: [...] 11/22/2023, Additional history exists HbA1c 06/15/2024 12/14/2023, 0403/2023, 05/15/2022, Additional history exists CKD PHOS USE SMARTSET 08648 11/28/202411/02, 10/10/2023, 09/10/2023, Additional history exists CKD HGB USE SMARTSET 27481 12/13/202412/13, 12/14/2023, 11/29/2023, Additional history exists GARDASIL-HPV IMMUNIZATION SERIES Aged Out No longer eligible based on patient's age to complete this topic Hepatitis B Aged Out No longer eligi ble based on patient's age to complete this topic MENINGOCOCCAL (MENACTRA/MENVEO) Aged Out No longer eligible based on patient's age to complete this topic documented as of this encounter Medical Devices Implanted Type Area Clinical Account Specialist Device Identifier Shelf Expiration Date Model / Serial / Lot Stent Trnscarotid Enroute 7x40 - [id number] Implanted:Qty: 1 on 01/25/2021 by Zeinab Robert MD at [facility] Left: [facility] [id number] 05/31/2023 SR-0740-C S / / [id number] documented as of this encounter Visit Diagnoses Diagnosis Encounter for antineoplastic chemotherapy- Primary Prostate cancer metastatic to multiple sites (HCC) Malignant neoplasm of prostate Malignant neoplasm metastatic to bone (HCC) Secondary malignant neoplasm of bone and bone marrow documented in this encounter Administered Medications Inactive Administered Medications - up to 3 most recent administrations Medication Order MAR Action Action Date Dose Rate Site Pegfilgrastim-cbqv (Udenyca) inj 6 mg 6 mg, Subcutaneous, ONCE, On Sun11/02/23 at 1515, For 1 dose Given 11/02/2023 2:38 PM EST 6 mg Arm R ight Upper documented in this encounter Advance Directives Latest Code Status on File Code Status Date Activated Date Inactivated Comments Full Code 01/25/2021 10:53 AM 01/26/2021 1:19 PM This order reflects the patients wishes and were consensually agreed upon. Care Teams Detacker Relationship Specialty Start Date End Date Dru Fritz MD 132 [place] [address] PCP - General Family Medicine 01/24/21 documented as of this encounter
--- OUTSIDE RECORDS SUMMARY | 2024-01-12 09:04 | External Medical Summary | Summary of Care ---
Author Name Unknown Organization [facility] Address [address] [place] [facility] [place] [address] Phone [phone] Care Team Providers Care Wellness Specialist Name Role Phone Dru Fritz MD Primary Care Provider [phone] Reason for Visit * Reason Onset Date Comments FYI 12/14/2023 Encounter Details Date Type Department Care Team (Late st Contact Info) Description 12/14/2023 Telephone Family Practice [facility] [address] [place] [address] Dru Fritz MD [address] [place] [address] FYI Allergies Active Allergy Reactions Criticality Noted Date Comments Amoxicillin-Pot Clavulanate 05/17/20 22 Dizziness and confused documented as of this encounter (statuses as of 12/14/2023) Medications Medication Sig Dispensed Refills Start Date End Date Status [employer] SYSTEM W/DEVICE KITIndications:DM type 2, goal A1c [...] encounter Miscellaneous Notes * Telephone Encounter - Maynor Kaur OSA - 12/14/2023 10:32 AM EDT I spoke to Stephanie in lab. They got it. * Telephone Encounter - Dariel Chowdhury OSA - 12/14/2023 8:47 AM EDT Pt's calling. Pt is coming to lab this morning. Oncologist told them to use the standing orderfrom 08/17. Could you please give this message to lab? documented in this encounter Plan of Treatment Upcoming Encounters Date Type Department Care Team (Late st Contact Info) Description 12/26/2023 2:40 PM EDT Office Visit [facility] 132 [place] [address] Dru Fritz MD 132 [facility] [place] [address] 01/17/2024 10:40 AM EDT Laboratory Laboratory [facility] [address] [place] [address] Park, [facility] 200 [facility] [place] [address] 01/17/2024 11:15 AM EDT Office Visit Hematology/Oncology [facility] [address] [place] [address] Elio Queen MD 200 [place] [address] 01/17/2024 11:45 AM EDT Immunization/Injectio n Hematology/Oncology Treatment, [place] [address] [place] [phone] Nurse, Med 4 200 [place] [address] 05/20/2024 2:15 PM EDT Office Visit Urology, [facility] 132 [place] [address] Isaías Novak MD [address] [place] [address] [place] [address] Health Maintenance Due Date Last Done Comments DISCUSS TOBACCO CESSATION (REFER TO SMARTSET #5242) 1960 COVID-19 Vaccine (#1) 1964 Pneumococcal Vaccine: [...] Additional history exists CKD HGB USE SMARTSET 92949 11/28/2024, 11/29/2023, 11/22/2023, Additional history exists CKD PHOS USE SMARTSET 71521 11/28/202411/02, 10/10/2023, 09/10/2023, Additional history exists GARDASIL-HPV IMMUNIZATION SERIES Aged Out No longer eligible based on patient's age to complete this topic Hepatitis B Aged Out No longer eligi ble based on patient's age to complete this topic MENINGOCOCCAL (MENACTRA/MENVEO) Aged Out No longer eligible based on patient's age to complete this topic documented as of this encounter Medical Devices Implanted Type Area Admissions Nurse Device Identifier Shelf Expiration Date Model / Serial / Lot Stent Trnscarotid Enroute 7x40 - [id number] Implanted:Qty: 1 on 01/25/2021 by Zeinab Robert MD at [facility] Left: [facility] [id number] 05/31/2023 SR-0740-C S / / [id number] documented as of this encounter Advance Directives Latest Code Status on File Code Status Date Activated Date Inactivated Comments Full Code 01/25/2021 10:53 AM 01/26/2021 1:19 PM This order reflects the patients wishes and were consensually agreed upon. Care Teams Wellness Specialist Relationship Specialty Start Date End Date Dru Fritz MD [address] [place] [address] PCP - General Family Medicine 01/24/21 documented as of this encounter
--- OUTSIDE RECORDS SUMMARY | 2024-01-12 09:04 | External Medical Summary ---
Author Name Unknown Address Unknown Organization [id number]:[facility] - [address] [place] [address] Laboratory Report Ordering Provider Test Date Status PATRICE QUINONES 12/14/2023 09:02:18 Final Observation Date Value Abnormality Reference (Units ) Status WBC, Total 12/14/2023 09:02:18 9.36 4.00-10.80 (K/uL) Final RBC 12/14/2023 09:02:18 3.10 4.50-5.25 (M/uL) Final Hemoglobin 12/14/2023 09:02:18 10.1 Below low normal 14.0-16.8 (g/dL) Final HCT 12/14/2023 09:02:18 32.6 Below low normal 40.0-48.4 (%) Final MCV 12/14/2023 09:02:18 105.2 82.0-99.5 (fL) Final MCH 12/14/2023 09:02:18 32.6 27.0-34.0 (pg) Final MCHC 12/14/2023 09:02:18 31.0 32.0-36.0 (g/dL) Final RDW 12/14/2023 09:02:18 15.8 11.5-15.5 (%) Final Platelets 12/14/2023 09:02:18 341 140-400 (K/uL) Final MPV 12/14/2023 09:02:18 8.6 6.6-11.1 (fL) Final Nucleated erythrocytes/100 leukocytes [Ratio] in Blood by Automated count 12/14/2023 09:02:18 0 <=0 (/100 WBCs) Final Performing Location [facility] - [address] [place] [address]
--- OUTSIDE RECORDS SUMMARY | 2024-01-12 09:04 | External Medical Summary | Summary of Care ---
Author Name Unknown Organization [facility] Address [address] [place] [address] Phone [phone] Care Team Providers Care Green Plumber Name Role Phone Dru Fritz MD Primary Care Provider [phone] Reason for Visit * Reason Comments Infusion Hydration Encounter Details Date Type Department Care Team (Latest Contact Info) Description 12/03/2023 11:30 AM EST Hem/Onc Treatment Hematology/Oncology Treatment, [place] [address] [place] [address] Malignant neoplasm metastatic to bone (HCC)*; Prostate cancer metastatic to multiple sites (HCC) Allergies Active Allergy Reactions Criticality Noted Date Comments Amoxicillin-Pot Clavulanate 05/17/20 22 Dizziness and confused documented as of this encounter (statuses as of 12/03/2023) Medications Medication Sig Dispensed Refills Start Date End Date Status [employer] SYSTEM W/DEVICE KITIndications:DM type 2, goal A1c [...] as of this encounter (statuses as of 12/03/2023) Active Problems Problem Noted Date Diagnosed Date [...] as of this encounter (statuses as of 12/03/2023) Resolved Problems Problem Noted Date Diagnosed Date [...] as of this encounter (statuses as of 12/03/2023) Immunizations No known immunizationsdocumented as of this [...] Sign Reading Time Taken Comments Blood Pressure 139/78 12/03/2023 11:47 AM EST Pulse 102 12/03/2023 11:47 AM EST Temperature 36.4 C (97.6 F) 12/03/2023 11:[address] Respiratory Rate 18 12/03/2023 11:47 AM EST Oxygen Saturation 97% 12/03/2023 11:47 AM EST Inhaled Oxygen Concentration - - Weight [...] Nursing Notes * Tash Mcintyre LPN - 12/03/2023 2:48 PM EST 1345: Pt tolerated Hydration well. PIV removed intact. Pt discharged in stable condition. * Tash Mcintyre LPN - 12/03/2023 11:47 AM EST 1140: Chair 5. Pt arrived for hydration. PIV in LFA. Pt tolerated well. VSS. Pt reports he hasn't been eating or drinking much. He is pale in color and very fatigued. Pt is resting quietly at this time. documented in this encounter Plan of Treatment Upcoming Encounters Date Type Department Care Team (Late st Contact Info) Description 12/26/2023 2:40 PM EDT Office Visit Family Practice [facility] [address] [place] [address] Dru Fritz MD 132 [facility] [place] [address] 01/17/2024 10:40 AM EDT Laboratory Laboratory [facility] 200 [facility] [place] [address] [place] [address] 01/17/2024 11:15 AM EDT Office Visit Hematology/Oncology [facility] 200 [facility] [place] [phone] Elio [facility] 200 [facility] [address] 01/17/2024 11:45 AM EDT Immunization/Injectio n Hematology/Oncology Treatment, [place] [facility] [phone] Nurse, Med 4 200 [facility] [place] [address] 05/20/2024 2:15 PM EDT Office Visit Urology, [facility] [address] [place] [address] Isaías Novak MD [address] [place] [address] [place] [address] Health Maintenance Due Date Last Done Comments DISCUSS TOBACCO CESSATION (REFER TO SMARTSET #8660) 1960 COVID-19 Vaccine (#1) 1964 Pneumococcal Vaccine: [...] Additional history exists CKD HGB USE SMARTSET 13106 11/28/2024, 11/29/2023, 11/22/2023, Additional history exists CKD PHOS USE SMARTSET 01699 11/28/202411/02, 10/10/2023, 09/10/2023, Additional history exists GARDASIL-HPV IMMUNIZATION SERIES Aged Out No longer eligible based on patient's age to complete this topic Hepatitis B Aged Out No longer eligi ble based on patient's age to complete this topic MENINGOCOCCAL (MENACTRA/MENVEO) Aged Out No longer eligible based on patient's age to complete this topic documented as of this encounter Medical Devices Implanted Type Area Electronic Service Technician Device Identifier Shelf Expiration Date Model / Serial / Lot Stent Trnscarotid Enroute 7x40 - [id number] Implanted:Qty: 1 on 01/25/2021 by Zeinab Robert MD at [facility] Left: [facility] [id number] 05/31/2023 SR-0740-C S / / [id number] documented as of this encounter Visit Diagnoses Diagnosis Malignant neoplasm metastatic to bone (HCC)- Primary Secondary malignant neoplasm of bone and bone marrow Prostate cancer metastatic to multiple sites (HCC) Malignant neoplasm of prostate documented in this encounter Administered Medications Active Administered Medications - up to 3 most recent administrations Medication Order MAR Action Action Date Dose Rate Site hEParin 100 UNIT/ML Lock Flush inj 500 Units 500 Units (5 mL), IV Lock, PRN Other, IV Flush, Starting on Sun12/03/23 at 1144, Until Sun12/04/23 at 1143, For 24 hours, Do not flush if lock, PICC, or central line not in place; IV infusing or unable to flush. sodium chloride 0.9 % flush central line 10 mL 10 mL, IV Push, PRN Other, IV Flush, Starting on Sun12/03/23 at 1144, Until Sun12/04/23 at 1143, For 24 hours, Do not flush if lock, PICC, or central line not in place; IV infusing or unable to flush. Inactive Administered Medications - up to 3 most recent administrations Medication Order MAR Action Action Date Dose Rate Site NSS infusion FOR HYDRATION Intravenous, at 500 mL/hr Administer over 2 Hours, ONCE, 1 dose, On Sun12/03/23 at 1245 Start Infusion 12/03/2023 11:40 AM EST 1,000 mL 500 mL/hr documented in this encounter Advance Directives Latest Code Status on File Code Status Date Activated Date Inactivated Comments Full Code 01/25/2021 10:53 AM 01/26/2021 1:19 PM This order reflects the patients wishes and were consensually agreed upon. Care Teams Green Plumber Relationship Specialty Start Date End Date Dru Fritz MD [address] [place] [address] PCP - General Family Medicine 01/24/21 documented as of this encounter
--- OUTSIDE RECORDS SUMMARY | 2024-01-12 09:05 | External Medical Summary | Summary of Care ---
Author Name Unknown Organization [facility] Address [address] [place] [address] Phone [phone] Care Team Providers Care Automotive Professional Name Role Phone Dru Fritz MD Primary Care Provider [phone] Reason for Visit * Reason Comments Outpatient Testing Encounter Details Date Type Department Care Team (Late st Contact Info) Description 11/29/2023 11:20 AM EST Laboratory Laboratory [facility] [address] [place] [address] [facility] [address] [place] [address] Prostate cancer metastatic to multiple sites (HCC); Metastasis to bone (HCC) Allergies Active Allergy Reactions Criticality Noted Date Comments Amoxicillin-Pot Clavulanate 05/17/20 22 Dizziness and confused documented as of this encounter (statuses as of 11/29/2023) Medications Medication Sig Dispensed Refills Start Date End Date Status DNage SYSTEM W/DEVICE KITIndications:DM type 2, goal A1c [...] for Pain, Moderate. 180 Tablet 0 11/02/2023 Active documented as of this encounter (statuses as of 11/29/2023) Active Problems Problem Noted Date Diagnosed Date [...] as of this encounter (statuses as of 11/29/2023) Resolved Problems Problem Noted Date Diagnosed Date [...] as of this encounter (statuses as of 11/29/2023) Immunizations No known immunizationsdocumented as of this [...] Care Team (Late st Contact Info) Description 11/29/2023 8:45 AM EST Office Visit Hematology/Oncology [facility] [address] [place] [address] Elio Queen MD 200 [facility] [place] [address] 11/29/2023 9:15 AM EST Hem/Onc Treatment Hematology/Oncology Treatment, [place] [address] [place] [phone] Saritha, Chair 9 Hem Onc [facility] [address] [place] [address] Arrived 12/26/2023 2:40 PM EDT Office Visit Family [facility] 132 [facility] [place] [address] Dru Fritz MD [address] [place] [address] 05/20/2024 2:15 PM EDT Office Visit Urology, [facility] [address] [place] [address] Isaías Novak MD [address] [facility] [address] [place] [address] Pending Results Name Type Priority Associated Diagnoses Date /Time CBC WITH WBC DIFFERENTIAL Lab STAT Prostate cancer metastatic to multiple sites (HCC) 11/29/2023 8:20 AM EST COMPREHENSIVE METABOLIC PANEL Lab STAT Prostate cancer metastatic to multiple sites (HCC) 11/29/2023 8:20 AM EST PHOSPHORUS Lab STAT Metastasis to bone (HCC) 11/29/2023 8:20 AM EST PSA Lab STAT Prostate cancer metastatic to multiple sites (HCC) 11/29/2023 8:20 AM EST CBC Lab STAT Prostate cancer metastatic to multiple sites (HCC) 11/29/2023 8:20 AM EST DIFFERENTIAL, AUTOMATED Lab STAT Prostate cancer metastatic to multiple sites (HCC) 11/29/2023 8:20 AM EST Health Maintenance Due Date Last Done Comments DISCUSS TOBACCO CESSATION (REFER TO SMARTSET #329) 1959 COVID-19 Vaccine (#1) 1964 Pneumococcal Vaccine: [...] 01/15/2023, 05/01, 02/14/2022, Additional history exists GFR 05/22/2024 11/22/2023, 10/03, 10/10/2023, Additional history exists CKD PHOS USE SMARTSET 64098 10/10/202410/01, 09/10/2023, 08/14/2023, Additional history exists CKD HGB USE SMARTSET 91351 11/22/202411/22, 11/22/2023, 10/31/2023, Additional history exists GARDASIL-HPV IMMUNIZATION SERIES Aged Out No longer eligible based on patient's age to complete this topic Hepatitis B Aged Out No longer eligi ble based on patient's age to complete this topic MENINGOCOCCAL (MENACTRA/MENVEO) Aged Out No longer eligible based on patient's age to complete this topic documented as of this encounter Medical Devices Implanted Type Area Environmental Engineering Assistant Device Identifier Shelf Expiration Date Model / Serial / Lot Stent Trnscarotid Enroute 7x40 - [id number] Implanted:Qty: 1 on 01/25/2021 by Zeinab Robert MD at [facility] Left: [facility] [id number] 05/31/2023 SR-0740-C S / / [id number] documented as of this encounter Visit Diagnoses [...] and were consensually agreed upon. Care Teams Automotive Professional Relationship Specialty Start Date End Date Dru Fritz MD 132 [facility] [place] [address] PCP - General Family Medicine 01/24/21 documented as of this encounter
--- OUTSIDE RECORDS SUMMARY | 2024-01-12 09:05 | External Medical Summary ---
Author Name Unknown Address Unknown Organization K09:[facility] [address] [address] Laboratory Report Ordering Provider Test Date Status PATRICE QUINONES 11/29/2023 08:20:13 Final Observation Date Value Abnormality Reference (Units ) Status Nucleated erythrocytes/100 leukocytes [Ratio] in Blood by Automated count 11/29/2023 08:20:13 Final Performing Location [facility] [address] [place] [address]
--- OUTSIDE RECORDS SUMMARY | 2024-01-12 09:05 | External Medical Summary | Summary of Care ---
Author Name Unknown Organization [facility] Address [address] [place] [address] Phone [phone] Care Team Providers Care Ballistics Professor Name Role Phone Nima Norton MD Primary Care Provider [phone] Reason for Referral * Medication Prior Authorization - Pending Review Specialty Diagnoses / Procedures Referred By Contac t Referred To Contact Diagnoses Malignant neoplasm metastatic to bone (HCC) Nima Norton MD [address] [place] [address] Referral ID Status Reason Start Date Expiration Date V isits Requested Visits Authorized [id number] Pending Review [phone] Reason for Visit * Reason Onset Date Comments Medication Refill 11/30/2023 Encounter Details Date Type Department Care Team (Late st Contact Info) Description 11/30/2023 Refill Family Practice [facility] [address] [place] [address] Nima Norton MD [address] [place] [address] Malignant neoplasm metastatic to bone (HCC) Allergies Active Allergy Reactions Criticality Noted Date Comments Amoxicillin-Pot Clavulanate 05/17/20 22 Dizziness and confused documented as of this encounter (statuses as of 11/30/2023) Medications Medication Sig Dispensed Refills Start Date End Date Status ONETOUCH ULTRA SYSTEM W/DEVICE KITIndications:DM type 2, goal A1c below 7 Use up to four times a day as directed 1 Kit 0 07/28/2014 Active Aspirin 81 MG TBEC Take 1 Tablet by mouth in the morning. 0 Active sildenafil (REVATIO) 20 MG Tablet Take 3 tablets by mouth 1 hour prior to sexual activity 30 Tab 5 03/27/2018 Active Blood Glucose Monitoring Suppl (CityNewsTOUCH VERIO) w/Device KIT Use up to 4 [...] MORNING 90 Tablet 2 08/27/2023 4 Active linaGLIPtin 5 MG Oral Tablet (Tradjenta)Indica tions:Type 2 diabetes mellitus with diabetic neuropathy, without long-term current use of insulin (HCC) TAKE ONE TABLET BY MOUTH EVERY MORNING 90 Tablet 0 09/10/2023 4 Active Ondansetron HCl 8 MG Oral [...] Pain, Moderate. 180 Tablet 0 11/30/2023 Active traMADol HCl 50 MG Oral Tablet (Ultram)Indicatio ns:Malignant neoplasm metastatic to bone (HCC) Take 2 Tablets by mouth 3 times a day as needed for Pain, Moderate. 180 Tablet 0 11/02/2023 4 Discontinue d(Refill) documented as of this encounter (statuses as of 11/30/2023) Active Problems Problem Noted Date Diagnosed Date [...] as of this encounter (statuses as of 11/30/2023) Resolved Problems Problem Noted Date Diagnosed Date [...] as of this encounter (statuses as of 11/30/2023) Immunizations No known immunizationsdocumented as of this [...] encounter Miscellaneous Notes * Telephone Encounter - Kofi Herrera CPhT - 11/30/2023 1:42 PM EST Patients insurance would like to inform the office that TRAMADOL HCL 50 MG TABLET is not requiring review because No review needed. Test claim pays. Rx released Thank you, Kory Herrera ([facility]) Lamination Builder III [facility] ([facility] (formerly [facility]) 11/30/2023, 1:43 PM * Telephone Encounter - Nima Norton MD - 11/30/2023 11:54 AM ESTSigned Prescriptions: Disp Refills traMADol HCl 50 MG Oral Tablet (Ultram) 180 Ta*0 Sig: Take 2 Tablets by mouth 3 times a day as needed for Pain, Moderate. Authorizing Provider: NIMA NORTON * Telephone Encounter - Yandy Ojeda formerly [facility] - 11/30/2023 10:10 AM ESTPending Prescriptions: Disp Refills traMADol HCl 50 MG Oral Tablet (Ultram) 180 Ta*0 Sig: Take 2 Tablets by mouth 3 times a day as needed for Pain, Moderate. * Telephone Encounter - Yandy Ojeda formerly [facility] - 11/30/2023 10:10 AM EST I have reviewed the patients controlled substance dispensing history in the Prescription Drug Monitoring Program in compliance with the [facility] regulations before prescribing a controlled substance. PDMP checked on 11/30/2023. Pending Prescriptions: Disp Refills traMADol HCl 50 MG Oral Tablet (Ultram) 180 Ta*0 Sig: Take 2 Tablets by mouth 3 times a day as needed for Pain, Moderate. Last Visit: 04/18/2022 (in office), 05/04/2022 (telemedicine) Next Visit: 12/26/2023 Date medication was last filled: 11/02 Date medication is due for refill: 11/30 Pharmacy: [email or web address] Is this request for a controlled substance? Yes and Urine Drug Screen Not completed Toxicology results: No results found. However, due to the size of the patient record, not all encounters were searched.Please check Results Review for a complete set of results. Please approve if appropriate. Thanks, Yandy Ojeda, PharmD Clinical Pharmacist [facility] ([facility]) (formerly [facility]) [phone] 11/30/2023 10:10 AM * Telephone Encounter - Aida Cárdenas CPhT - 11/30/2023 9:59 AM EST Pt only has enough medication for today and is requesting high priority. Advised of medication policy. I have reviewed the patients controlled substance dispensing history in the Prescription Drug Monitoring Program in compliance with the [facility] regulations before prescribing a controlled substance. PDMP checked on 11/30/2023. Pending Prescriptions: Disp Refills traMADol HCl 50 MG Oral Tablet (Ultram) 180 Ta*0 Sig: Take 2 Tablets by mouth 3 times a day as needed for Pain, Moderate. Last Visit: 04/18/2022 (in office), 05/04/2022 (telemedicine) Next Visit: 12/26/2023 Date medication was last filled: 11/02/23 Date medication is due for refill: 12/01/23 [facility] Is this request for a controlled substance? Yes and Urine Drug Screen Not completed Toxicology results: No results found. However, due to the size of the patient record, not all encounters were searched.Please check Results Review for a complete set of results. Please approve if appropriate. Thank you, Leila Cárdenas Lamination Builder III [facility] ([facility]) 11/30/2023,9:59 AM documented in this encounter Plan of Treatment Upcoming Encounters Date Type Department Care Team (Late st Contact Info) Description 12/26/2023 2:40 PM EDT Office Visit Family Practice [facility] 132 [place] [address] Nima Norton MD 132 [facility] [place] [address] 01/17/2024 11:15 AM EDT Office Visit Hematology/Oncology [facility] 200 [facility] [place] [address] Elio Queen MD 200 [facility] [place] [address] 05/20/2024 2:15 PM EDT Office Visit Urology, [facility] [address] [place] [address] Isaías Novak MD [address] [place] [address] Health Maintenance Due Date Last Done Comments DISCUSS TOBACCO CESSATION (REFER TO SMARTSET #3865) 1960 COVID-19 Vaccine (#1) 1965 Pneumococcal Vaccine: [...] Additional history exists CKD HGB USE SMARTSET 16969 11/28/2024, 11/29/2023, 11/22/2023, Additional history exists CKD PHOS USE SMARTSET 34230 11/28/202411/02, 10/10/2023, 09/10/2023, Additional history exists GARDASIL-HPV IMMUNIZATION SERIES Aged Out No longer eligible based on patient's age to complete this topic Hepatitis B Aged Out No longer eligi ble based on patient's age to complete this topic MENINGOCOCCAL (MENACTRA/MENVEO) Aged Out No longer eligible based on patient's age to complete this topic documented as of this encounter Medical Devices Implanted Type Area Swatch Cutter Device Identifier Shelf Expiration Date Model / Serial / Lot Stent Trnscarotid Enroute 7x40 - [id number] Implanted:Qty: 1 on 01/25/2021 by Zeinab Robert MD at [facility] Left: [facility] [id number] 05/31/2023 SR-0740-C S / / [id number] documented as of this encounter Visit Diagnoses Diagnosis Malignant neoplasm metastatic to bone (HCC) Secondary malignant neoplasm of bone and bone marrow documented in this encounter Advance Directives Latest Code Status on File Code Status Date Activated Date Inactivated Comments Full Code 01/25/2021 10:53 AM 01/26/2021 1:19 PM This order reflects the patients wishes and were consensually agreed upon. Care Teams Ballistics Professor Relationship Specialty Start Date End Date Nima Norton MD [address] [place] [address] PCP - General Family Medicine 01/24/21 documented as of this encounter
--- OUTSIDE RECORDS SUMMARY | 2024-01-12 09:05 | External Medical Summary | Summary of Care ---
Author Name Unknown Organization [facility] Address [address] [place] [address] Phone [phone] Care Team Providers Care Receiver Stocker Name Role Phone Dru Fritz MD Primary Care Provider [phone] Reason for Visit * Reason Onset Date Comments Advice 11/26/2023 constipation Encounter Details Date Type Department Care Team (Late st Contact Info) Description 11/26/2023 Telephone Hematology/Oncology [facility] [place] [address] [facility] [place] [phone] Elio Queen MD [address] [place] [address] Advice (constipation) Allergies Active Allergy Reactions Criticality Noted Date Comments Amoxicillin-Pot Clavulanate 05/17/20 22 Dizziness and confused documented as of this encounter (statuses as of 11/27/2023) Medications Medication Sig Dispensed Refills Start Date End Date Status Optini SYSTEM W/DEVICE KITIndications:DM type 2, goal A1c [...] as of this encounter (statuses as of 11/27/2023) Active Problems Problem Noted Date Diagnosed Date [...] as of this encounter (statuses as of 11/27/2023) Resolved Problems Problem Noted Date Diagnosed Date [...] as of this encounter (statuses as of 11/27/2023) Immunizations No known immunizationsdocumented as of this [...] encounter Miscellaneous Notes * Telephone Encounter - Ángel Thompson RN - 11/27/2023 12:21 PM EST Called patient to follow up, tried to do a suppository twice but wasn't able to "keep it in." Tried2 capfuls of Miralax last night with no BM. Advised to do 2 more capfuls now, if no BM in 3 hours, do 2 more, if no BM by 6PM to try an enema. Pt verbalized understanding. * Telephone Encounter - Ángel Thompson RN - 11/26/2023 4:15 PM EST Pt called stating he hasn't moved his bowels in 3-4 days, asked if he can do an enema. I advised patient to try a glycerine suppository and to get Miralax from his local pharmacy. Advised him to use the suppository and if he doesn't produce a bowel movement in the next 5 hours , take 2 capfuls of Miralax in 8oz of liquid. N/S- Please follow up with patient tomorrow to see if he moved his bowels. documented in this encounter Plan of Treatment Upcoming Encounters Date Type Department Care Team (Late st Contact Info) Description 11/28/2023 9:00 AM EST Laboratory Laboratory [address] [place] [phone] [place] [address] 11/29/2023 8:45 AM EST Office Visit Hematology/Oncology [facility] [address] [facility] [place] [address] Elio Queen MD [address] [facility] [place] [address] 11/29/2023 9:15 AM EST Hem/Onc Treatment Hematology/Oncology Treatment, [place] [address] [facility] [address] [place] [address] Saritha, Chair 9 Hem Onc [address] [place] [address] 12/26/2023 2:40 PM EDT Office Visit Family Practice [facility] [address] [facility] [place] [address] Dru Fritz MD 132 [facility] [place] [address] 05/20/2024 2:15 PM EDT Office Visit Urology, [facility] [address] [facility] [place] [address] Isaías Novak MD 27 [facility] [address] [place] [address] Health Maintenance Due Date Last Done Comments DISCUSS TOBACCO CESSATION (REFER TO SMARTSET #7370) 1960 COVID-19 Vaccine (#1) 1965 Pneumococcal Vaccine: [...] , 01/24/2016, Additional history exists Albumin/Creatinine Ratio 05/15/20232 022, 02/13/2018, 10/27/2015, Additional history exists Influenza Vaccine (FLU shot) (#1) 2023 HbA1c 07/17/2023 01/15/2023, 05/01, 02/14/2022, Additional history exists GFR 05/22/2024 11/22/2023, 10/03, 10/10/2023, Additional history exists CKD PHOS USE SMARTSET 00752 10/10/202410/01, 09/10/2023, 08/14/2023, Additional history exists CKD HGB USE SMARTSET 66751 11/22/202411/22, 11/22/2023, 10/31/2023, Additional history exists GARDASIL-HPV IMMUNIZATION SERIES Aged Out No longer eligible based on patient's age to complete this topic Hepatitis B Aged Out No longer eligi ble based on patient's age to complete this topic MENINGOCOCCAL (MENACTRA/MENVEO) Aged Out No longer eligible based on patient's age to complete this topic documented as of this encounter Medical Devices Implanted Type Area Trust Manager Assistant Device Identifier Shelf Expiration Date Model / Serial / Lot Stent Trnscarotid Enroute 7x40 - [id number] Implanted:Qty: 1 on 01/25/2021 by Zeinab Robert MD at [facility] Left: Carotid [facility] [id number] 05/31/2023 SR-0740-C S / / [id number] documented as of this encounter Advance Directives Latest Code Status on File Code Status Date Activated Date Inactivated Comments Full Code 01/25/2021 10:53 AM 01/26/2021 1:19 PM This order reflects the patients wishes and were consensually agreed upon. Care Teams Receiver Stocker Relationship Specialty Start Date End Date Dru Fritz MD [address] [place] [address] PCP - General Family Medicine 01/24/21 documented as of this encounter
--- OUTSIDE RECORDS SUMMARY | 2024-01-12 09:05 | External Medical Summary ---
Author Name Unknown Address Unknown Organization K09:[facility] [place] [address] Laboratory Report Ordering Provider Test Date Status PATRICE QUINONES 11/29/2023 08:20:13 Final Observation Date Value Abnormality Reference (Units ) Status BUN 11/29/2023 08:20:13 12 6-20 (mg/dL) Final Creatinine 11/29/2023 08:20:13 1.1 0.6-1.2 (mg/dL) Final Glomerular filtration rate/1.73 sq M.predicted [Volume Rate/Area] in Serum, Plasma or Blood by Creatinine-based formula (CKD-EPI) 11/29/2023 08:20:13 77 >=60 (mL/min) Final eGFR is calculated based on the CKD-EPI 2020 equation SODIUM 11/29/2023 08:20:13 139 135-146 (m mol/L) Final Potassium 11/29/2023 08:20:13 4.4 3.5-5.1 (m mol/L) Final Cl 11/29/2023 08:20:13 106 98-107 (mm ol/L) Final CO2 11/29/2023 08:20:13 20 Below low normal 22- 32 (mmol/L) Final Anion gap 11/29/2023 08:20:13 13 7-15 (mmol /L) Final Glucose 11/29/2023 08:20:13 182 Above high normal 70 -120 (mg/dL) Final Albumin 11/29/2023 08:20:13 3.8 3.8-5.0 (g /dL) Final AST (Aspartate aminotransferase) 11/29/2023 08:20:13 39 10-50 (U/L) Fin al Alk Phos 11/29/2023 08:20:13 386 Above high normal 35 -130 (U/L) Final Bilirubin, Total 11/29/2023 08:20:13 0.4 <=1 .2 (mg/dL) Final Calcium 11/29/2023 08:20:13 8.5 8.4-10.2 ( mg/dL) Final Protein 11/29/2023 08:20:13 7.2 6.0-8.3 (g /dL) Final ALT (Alanine aminotransferase) 11/29/2023 08:20:13 6 Below low normal 10-50 (U/L) Final Performing Location [facility] [place] [address]
--- OUTSIDE RECORDS SUMMARY | 2024-01-12 09:05 | External Medical Summary | Summary of Care ---
Author Name Unknown Organization [facility] Address [address] [place] [place] [address] Phone [phone] Care Team Providers Care Hydroelectric Station Operator Chief Name Role Phone Dru Fritz MD Primary Care Provider [phone] Reason for Visit * Reason Comments Chemotherapy Chemo/recheck Review scans Encounter Details Date Type Department Care Team (Late st Contact Info) Description 11/29/2023 8:45 AM EST Office Visit Hematology/Oncology [address] [place] [place] [address] [facility] [place] [phone] Elio [facility] [address] Prostate cancer metastatic to multiple sites (HCC)*; Metastasis to bone (HCC) Allergies Active Allergy Reactions Criticality Noted Date Comments Amoxicillin-Pot Clavulanate 05/17/20 22 Dizziness and confused documented as of this encounter (statuses as of 11/29/2023) Medications Medication Sig Dispensed Refills Start Date End Date Status Giftbar SYSTEM W/DEVICE KITIndications:DM type 2, goal A1c [...] Sign Reading Time Taken Comments Blood Pressure 108/70 11/29/2023 8:34 AM EST Pulse 128 11/29/2023 8:34 AM EST Temperature 36.9 C (98.4 F) 11/29/2023 8:34 AM ES T Respiratory Rate 16 11/29/2023 8:34 AM EST Oxygen Saturation 94% 11/29/2023 8:34 AM EST Inhaled Oxygen Concentration - - Weight 65.3 kg (144 lb) 11/29/2023 8:34 AM EST Height 172.7 cm (5' 7.99") 11/29/2023 8:34 AM ES T Body Mass Index 21.9 11/29/2023 8:34 AM EST documented in this [...] Progress Notes * Elio Queen MD - 11/29/2023 8:45 AM EST Hematology/Oncology Outpatient Clinic note [facility] [address] [place], [place] [address] Name: Brett Chaudhari Date: 11/01/2023 CHIEF COMPLAINT: Brett Chaudhari is a 63 year old male here today for f/u visit today. HEMATOLOGY/ONCOLOGY DIAGNOSIS: Prostate cancer, bone metastasis. C[place] Laurel score 4+5 -PSA level was around 31 at that time the diagnosis NGS ( 05/31/2023) - TMB --> 1.9 which is low -MSI stable - NEGATIVE for pathogenic/likely pathogenic mutations in the common homologous recombination repairgenes on this panel. DATE OF DIAGNOSIS: June 2021 TREATMENT HISTORY: -Casodex between 05/27/2021-08/04/2021. - Xtandi started in mid- August 2021. Discontinued in late August 2023 when he was started on Taxotere and prednisone. -Taxotere prednisone x3 between 08/21/2023 - 11/01/2023 ( Discontinued because of disease progression, rise in the PSA level). CURRENT TREATMENT: - Eligard every 4 monthly under the guidance of Dr. Novak., now changed to every 6 monthly. - Xgeva every six weeks since November 2021. - 11/29/2023 --> Xgeva change to every 3 monthly. -planning for Pluvicto treatment at [facility]. DIAGNOSTIC WORKUP: Earlier he was seen by Urology for voiding difficulties, found to have elevated PSA of around 11.7 as of late November 2020. He was scheduled for further evaluation with biopsy of the prostate but underwent carotid stent placement in December 2016 and he could not go off the Plavix for 3 months after the stent. He had Velasquez's catheter but It was discontinued. He once again started having voiding problem, seen by urologist [place], PSA level was around 23.3 as oflate March 2021. Component PSA Latest Ref Rng & Units <4.10 ng/mL 04/25/2021 23.34 (H) 05/31/2021 31.65 (H) MRI of the prostate (05/20/2021) Extensive tumor throughout the prostate gland with findings worrisome for extraprostatic extension to involve the bladder, anterior pelvic wall and seminal vesicles, as well as skeletal metastases. - Scattered marrow replacing lesions which avidly restrict diffusion are noted throughout the pelvis, concerning for skeletal metastases; the most prominent lesion is in the right posterior acetabular wall measuring up to [address] scan of the abdomen and pelvis (05/31/2021). 1. Urinary bladder very distended nearly to the level of the umbilicus, with at least moderate bilateral hydroureteronephrosis, right worse than left. The provider after us to directed the patient tothe emergency room at this time. 2. Sclerotic metastases, perhaps prostate origin. 3. Evidence of chronic pancreatitis. - Scattered sclerotic lesions including right posterior acetabulum, left superior acetabulum, left ilium, L4 left pedicle and transverse process, and scattered vertebral bodies with largest at T11. Serum creatinine level increased on 3.9 as of 05/31/2021, he was admitted at [facility]. I reviewed those records. He had Velasquez's catheter for about 2 months which was removed in late August 2021. Biopsy from the prostate gland showed prostatic adenocarcinoma C[place] Laurel score 4+5. Bone scan --> Multiple focal areas of increased uptake are seen in spine, ribs, sternum, pelvis,and right proximal femur suggestive of metastatic disease (06/13/2021). OTHER IMPORTANT HISTORY: -Type 2 diabetes, PAD, L carotid stent placement at [facility] December 2020, chronic systolic heart failure,CKD 3, hypertension, BPH, tobacco use, history of CVA, - chronic pancreatitis. - History of ischemic CM with EF 30%, improved to 43% on November 2020 echo - smokes about 7 cigarettes in a day. Interval History: Component Latest Ref Rng 07/17/2023 08/14/2023 09/10/2023 10/10/2023 PSA <4.10 ng/mL 16.77 (H) 33.81 (H) 69.22 (H) 94.86 (H) PET-CT scan done at [facility] on 07/04/2023: -interval increase in size and number of the bone metastatic disease throughout the visualized skeletal, left inferior pubic ramus demonstrates SUV of 3.9, right humeral lesion is SUV of 7.2. Gradual rise in the PSA level noted to around 16 range, recent PET-CT scan showed increased uptake in the multiple bones, has increased uptake in the right proximal humerus and pubic ramus lesion which is symptomatic. He was seen by radiation oncologist at [facility] , he also hada 2nd opinion, decided not to proceed with the radiation treatment at this time Now started him on Taxotere and prednisone combination, received 1 cycle of chemotherapy, overall tolerated well, had increasing pelvic pain required opioid therapy but now he is off the opioid therapy. Pelvic pain has improved. HISTORY OF PRESENT ILLNESS: He has come the clinic for the follow-up, accompanied by his in the office. He does complain of some pain in the lower pelvic region, previously noted pain in the right shoulder has improved, earlier she did not receive any radiation treatment, recently he received 3 cycles of docetaxel and prednisone chemotherapy, no nausea or vomiting at this time, denies any increasing tingling and numbness of the extremities, no leg edema, fair appetite, current weight around 144 lb,no hematuria. He takes tramadol for the symptomatic treatment of the bone pain. He takes vitamin-D and Calcium supplementation on regular basis, also receives Xgeva. No fever. Ambulates slowly, ECOG PS 1. Past Medical History: Diagnosis Date Chronic systolic heart failure (HCC) 03/31/2019 DM type 2, goal A1c below 7 Heart failure, etiology unknown ([facility]) cardiac cath -02/04 10-20% block History of left common carotid artery stent placement 03/08/2021 HTN, goal to be determined Nonischemic cardiomyopathy ([facility]) 03/31/2019 Primary insomnia 03/07/2021 Sciatica Past Surgical History: Procedure Laterality Date TRANSCATH STENT-CAROTID ARTERY, W/EMBOL PROTECTION Left 01/25/2021 CAROTID STENT WITH DISTAL PROTECTION performed by Zeinab Robert MD at [facility] TRANSCATH STENT-CAROTID ARTERY, W/EMBOL PROTECTION Left 01/25/2021 CAROTID STENT WITH DISTAL PROTECTION TRANSCAROTID ARTERY REVASCULARIZATION performed by Zeinab Robert MD at [facility] Social History Socioeconomic History Marital status: Spouse name: Not on file Number of children: 3 Years of education: Not on file Highest education level: Not on file Occupational History Employer: [employer] Tobacco Use Smoking status: Every Day Current packs/day: 0.50 Average packs/day: 0.5 packs/day for 30.0 years (15.0 ttl pk-yrs) Types: Cigarettes Smokeless tobacco: Never Tobacco comments: 08/09/22 smokes 1/2 pack a day Vaping Use Vaping Use: Never used Substance and Sexual Activity Alcohol use: Yes Comment: rarely Drug use: Yes Types: Marijuana Sexual activity: Not on file Other Topics Concern Not on file Social History Narrative Not on file Social Determinants of Health Financial Resource Strain: Not on file Food Insecurity: Not on file Transportation Needs: Not on file Physical Activity: Not on file Stress: Not on file Social Connections: Not on file Intimate Partner Violence: Not on file Housing Stability: Not on file Review of patient's allergies indicates: Allergen Reactions Augmentin [Amoxicillin-Pot Clavulanate] Dizziness and confused Current Outpatient Medications Medication Sig Dispense Refill Giftbar SYSTEM W/DEVICE KIT Use up to four times a day as directed 1 Kit 0 Aspirin 81 MG TBEC Take 1 Tablet by mouth in the morning. sildenafil (REVATIO) 20 MG Tablet Take 3 tablets by mouth 1 hour prior to sexual activity 30 Tab 5 Blood Glucose Monitoring Suppl (Realty CompassTOUCH VERIO) w/Device KIT Use up to 4 [...] DAY IN THE MORNING 90 Tablet 2 linaGLIPtin 5 MG Oral Tablet (Tradjenta) TAKE ONE TABLET BY MOUTH EVERY MORNING 90 Tablet 0 Ondansetron HCl 8 MG Oral Tablet (Zofran) Take 1 Tablet by mouth every 8 hours as needed for Nausea. 30 Tablet 2 Prochlorperazine Maleate 10 MG Oral Tablet (Compazine) Take 1 Tablet by mouth every 6 hours as needed for Nausea. 30 Tablet 2 predniSONE 5 MG Oral Tablet (Deltasone) Take 1 Tablet by mouth in the morning and 1 Tablet before bedtime. 60 Tablet 5 dexAMETHasone 4 MG Oral Tablet (Decadron) Take 8mg (2 tabs) twice a day x3 days starting the day before chemotherapy 72 Tablet 0 Loratadine 10 MG Oral Tablet (Claritin) Take 10mg (1 tab) daily x5 days starting the day of chemotherapy 30 Tablet 0 Morphine Sulfate ER 15 MG Oral Tablet Extended Release (MS Contin) Take 1 Tablet by mouth in the morning and 1 Tablet before bedtime. 60 Tablet 0 traMADol HCl 50 MG Oral Tablet (Ultram) Take 2 Tablets by mouth 3 times a day as needed for Pain, Moderate. 180 Tablet 0 No current facility-administered medications for this visit. REVIEW OF SYSTEMS: See HPI - otherwise negative OBJECTIVE: BP 108/70 (BP Site: Left Arm, BP Position: Sitting, BP Cuff Size: Regular) | Pulse 128 | Temp 36.9 C (98.4 F) (Tympanic) | Resp 16 | Ht 1.727 m (5' 7.99") | Wt 65.3 kg (144 lb) | SpO2 94% | BMI 21.90 kg/m | BSA 1.77 m PHYSICAL EXAM: ECOG: Performance Status 1 = 80-90% Symptoms but nearly ambulatory General Appearance: No acute distress HEENT: Normal - No oral or pharyngeal masses, ulceration or thrush noted Lymph Nodes: Normal - No palpable lymph nodes in the neck or supraclavicular areas Lungs/Thorax: Normal - Clear to auscultation Heart: Regular rhythm, +tachycardia, normal S1, S2, no appreciable murmurs Pulses/Extremities: Normal - 2+ throughout and symmetrical, no edema Abdomen: Normal - Soft, nontender, bowel sounds present, no appreciable hepatosplenomegaly, no palpable masses Neurologic: Normal - Grossly intact LABS: PSA Latest Ref Rng <4.10 ng/mL 08/14/2023 33.81 (H) 09/10/2023 69.22 (H) 10/10/2023 94.86 (H) 10/31/2023 88.67 (H) 11/22/2023 147.40 (H) PSMA PET-CT scan done on 11/21/2023 after 3 cycles of docetaxel chemotherapy (done at [facility]: - Interval worsening of the bony metastatic disease (significant increase in the number an FDG uptake noted). Repeat PSA level on 11/29/2023 --> 156 IMPRESSION/PLAN: Prostate cancer, bone metastasis. Encounter for chemotherapy I reviewed with him and his regarding the recent follow-up PSMA PET-CT scan as well as blood workup, significant rise in the PSA level noted on 2 occasions, PET-CT scan also shows considerable increase in the bony metastatic disease. I would like to discontinue docetaxel chemotherapy. Would like to have a Pulvicto treatment at [facility], Because of persistently elevated PSA level and the changes noted in the PET-CT scan, I am not planning for additional docetaxel chemotherapy. Will see him in about [address] Elio Queen Hem/Onc (This note was completed using the dictation program Fluency Direct. As such, there may be misspellings word substitutions, or other variations that should not change the essence of the clinical content of this encounter note. If there is need for further clarification, please direct questions to the provider listed above.) RTC in three weeks with physician for chemo return/scan review DANIELLE Lorenzo documented in this encounter Nursing Notes * Maegan Rowell LPN - 11/29/2023 8:34 AM EST Patient identifed by name and birthdate Do you have any concerns about pain management for today's visit? Yes. Patient instructed to discuss pain concerns with provider during the visit today Living Will or Advance Directive for Health Care as noted on the problem list. [facility] is a way you can talk to your provider on line through e-mail. Would you like to sign up? I can activate it for you? ALREADY ACTIVE Filed Vitals: 11/29/23 0834 BP: 108/70 Pulse: 128 Resp: 16 Temp: 36.9 C (98.4 F) TempSrc: Tympanic SpO2: 94% Weight: 65.3 kg (144 lb) Height: 1.727 m (5' 7.99") Patient was instructed to not get up on the exam table/exam chair until directed and assisted by their provider; patient is to remain seated in the chair/ wheelchair/ exam table/ exam chair for fall prevention and safety reasons. Patient is aware to have assistance to step down off exam table/exam chair with personnel. Patient voiced full comprehension of instructions. documented in this encounter Plan of Treatment Upcoming Encounters Date Type Department Care Team (Late st Contact Info) Description 12/26/2023 2:40 PM EDT Office Visit Family Practice [facility] [address] [facility] [place] [address] Dru Fritz MD [facility] [address] 05/20/2024 2:15 PM EDT Office Visit Urology, [facility] [address] [place] [address] Isaías Novak MD 27 [facility] [address] [facility] [place] [address] Health Maintenance Due Date Last Done Comments DISCUSS TOBACCO CESSATION (REFER TO SMARTSET #4056) 1960 COVID-19 Vaccine (#1) 1965 Pneumococcal Vaccine: [...] Additional history exists CKD HGB USE SMARTSET 15422 11/28/2024, 11/29/2023, 11/22/2023, Additional history exists CKD PHOS USE SMARTSET 19793 11/28/202411/02, 10/10/2023, 09/10/2023, Additional history exists GARDASIL-HPV IMMUNIZATION SERIES Aged Out No longer eligible based on patient's age to complete this topic Hepatitis B Aged Out No longer eligi ble based on patient's age to complete this topic MENINGOCOCCAL (MENACTRA/MENVEO) Aged Out No longer eligible based on patient's age to complete this topic documented as of this encounter Medical Devices Implanted Type Area Rn Disease Management Device Identifier Shelf Expiration Date Model / Serial / Lot Stent Trnscarotid Enroute 7x40 - [id number] Implanted:Qty: 1 on 01/25/2021 by Zeinab Robert MD at [facility] Left: [facility] [id number] 05/31/2023 SR-0740-C S / / [id number] documented as of this encounter Visit Diagnoses Diagnosis Prostate cancer metastatic to multiple sites (HCC)- Primary Malignant neoplasm of prostate Metastasis to bone (HCC) Secondary malignant neoplasm of bone and bone marrow documented in this encounter Advance Directives Latest Code Status on File Code Status Date Activated Date Inactivated Comments Full Code 01/25/2021 10:53 AM 01/26/2021 1:19 PM This order reflects the patients wishes and were consensually agreed upon. Care Teams Hydroelectric Station Operator Chief Relationship Specialty Start Date End Date Dru Fritz MD [address] [place] [address] PCP - General Family Medicine 01/24/21 documented as of this encounter
--- OUTSIDE RECORDS SUMMARY | 2024-01-12 09:05 | External Medical Summary | Summary of Care ---
Author Name Unknown Organization [facility] Address [address] [place] [address] Phone [phone] Care Team Providers Care Food Scientist Name Role Phone Dru Fritz MD Primary Care Provider [phone] [phone] Reason for Referral * Precert (Within 10 days (routine)) - Authorized Specialty Diagnoses / Procedures Referred By Contac t Referred To Contact Radiology Diagnoses Prostate cancer metastatic to multiple sites (HCC) Metastasis to bone (HCC) Procedures NM PROSTATE WITH PLUVADALIDO Stacie Queen MD [address] [place] [address] Referral ID Status Reason Start Date Expiration Date V isits Requested Visits Authorized [id number] Authorized 12/03/2023 999 999 Reason for Visit * Reason Onset Date Comments Advice 11/26/2023 Encounter Details Date Type Department Care Team (Late st Contact Info) Description 11/26/2023 Telephone Hematology/Oncology [place] [facility] [place] [address] [place] [phone] Stacie Queen MD [address] [facility] [place] [address] Advice Allergies Active Allergy Reactions Criticality Noted Date Comments Amoxicillin-Pot Clavulanate 05/17/20 22 Dizziness and confused documented as of this encounter (statuses as of 11/27/2023) Medications Medication Sig Dispensed Refills Start Date End Date Status Vivacta SYSTEM W/DEVICE KITIndications:DM type 2, goal A1c below 7 Use up to four times a day as directed 1 Kit 0 07/28/2014 Active Aspirin 81 MG TBEC Take 1 Tablet by mouth in the morning. 0 Active sildenafil (REVATIO) 20 MG Tablet Take 3 tablets by mouth 1 hour prior to sexual activity 30 Tab 5 03/27/2018 Active Blood Glucose Monitoring Suppl (Freedom Basketball LeagueTOUCH VERIO) w/Device KIT Use up to 4 [...] Encounter - Ángel Thompson RN - 11/27/2023 4:18 PM EST Nuc Med confirmed they received the correct orders and will be calling the patient tomorrow. The patient is aware. * Telephone Encounter - Ángel Thompson RN - 11/27/2023 12:16 PM EST Called Sunny Francisco with [facility] to review referral @ [phone]. No answer, left detailed message on machine in regards to referral. * Addendum Note - Stacie Queen MD - 11/26/2023 6:14 PM ESTAddended by: STACIE QUEEN on: 11/26/2023 06:14 PM Modules accepted: Orders * Telephone Encounter - Stacie Queen MD - 11/26/2023 6:13 PM EST I ordered nuclear medicine order with Pluvicto , I hope this is the correct order. Please check with nuclear medicine [facility] department. * Telephone Encounter - Ángel Thompson RN - 11/26/2023 1:[address] Matt Maloney spoke with [facility] Coker, she states they do Pluvicto infusions in [place] in Nuc Med. Patient is coming to see you on , if agreeable, please send referral to [facility] [place] NuclearMedicine. * Telephone Encounter - Ángel Thompson RN - 11/26/2023 1:14 PM EST "Unfortunately, we do not do infusions here in Rad/Onc. Maybe nuclear medicine does? JYOTI Contreras [facility] [place] [place] Rad/Onc " * Telephone Encounter - Ángel Thompson RN - 11/26/2023 12:[address] Queen- would like to refer patient for Pluvicto RT treatments as he feels he would be a good candidate for this. [facility] [place] [place] Rad Onc- Do you do these types of infusions? documented in this encounter Plan of Treatment Upcoming Encounters Date Type Department Care Team (Late st Contact Info) Description 11/28/2023 9:00 AM EST Laboratory Laboratory [address] [place] [phone] [place] [address] 11/29/2023 8:45 AM EST Office Visit Hematology/Oncology [facility] [place] [address] [place] [phone] Stacie Queen MD [address] [place] [address] 11/29/2023 9:15 AM EST Hem/Onc Treatment Hematology/Oncology Treatment, [place] [address] [place] [phone] Saritha, Chair 9 Hem Onc [facility] [address] [place] [address] 12/26/2023 2:40 PM EDT Office Visit Family Practice [facility] [address] [place] [address] Dru Fritz MD 132 [facility] [place] [address] 05/20/2024 2:15 PM EDT Office Visit Urology, [facility] [address] [place] [address] Isaías Novak MD [address] [place] [address] [place] [address] Scheduled Orders Name Type Priority Associated Diagnoses Orde r Schedule NM PROSTATE WITH PLUVICTO Medical Imaging Routine Prostate cancer metastatic to multiple sites (HCC) Metastasis to bone (HCC) Expected: 12/03/2023, Expires: 12/24/2024 Health Maintenance Due Date Last Done Comments DISCUSS TOBACCO CESSATION (REFER TO SMARTSET #5987) 1959 COVID-19 Vaccine (#1) 1964 Pneumococcal Vaccine: [...] Additional history exists CKD PHOS USE SMARTSET 01942 10/10/202410/01, 09/10/2023, 08/14/2023, Additional history exists CKD HGB USE SMARTSET 98758 11/22/202411/22, 11/22/2023, 10/31/2023, Additional history exists GARDASIL-HPV IMMUNIZATION SERIES Aged Out No longer eligible based on patient's age to complete this topic Hepatitis B Aged Out No longer eligi ble based on patient's age to complete this topic MENINGOCOCCAL (MENACTRA/MENVEO) Aged Out No longer eligible based on patient's age to complete this topic documented as of this encounter Medical Devices Implanted Type Area Manager Business Information Device Identifier Shelf Expiration Date Model / Serial / Lot Stent Trnscarotid Enroute 7x40 - [id number] Implanted:Qty: 1 on 01/25/2021 by Zeinab Robert MD at [facility] Left: [facility] [id number] 05/31/2023 SR-0740-C S / / [id number] documented as of this encounter Visit Diagnoses [...] and were consensually agreed upon. Care Teams Food Scientist Relationship Specialty Start Date End Date Dru Fritz MD 132 [facility] [place] [address] PCP - General Family Medicine 01/24/21 documented as of this encounter
--- OUTSIDE RECORDS SUMMARY | 2024-01-12 09:05 | External Medical Summary | Summary of Care ---
Author Name Unknown Organization [facility] Address [address] [place] [address] Phone [phone] Care Team Providers Care Behavioral Therapist Name Role Phone Dru Firtz MD Primary Care Provider [phone] Reason for Visit * Reason Onset Date Comments Information 12/03/2023 Encounter Details Date Type Department Care Team (Late st Contact Info) Description 12/03/2023 Telephone Hematology/Oncology Treatment, [place] [address] [place] [address] Elio Queen MD [address] [place] [address] Information Allergies Active Allergy Reactions Criticality Noted Date Comments Amoxicillin-Pot Clavulanate 05/17/20 22 Dizziness and confused documented as of this encounter (statuses as of 12/03/2023) Medications Medication Sig Dispensed Refills Start Date End Date Status Acoustic Sensing Technology SYSTEM W/DEVICE KITIndications:DM type 2, goal [...] encounter Miscellaneous Notes * Telephone Encounter - Rocio Badillo RN - 12/03/2023 9:37 AM EST Received call from patient/ . Patients states that she is concerned patient is dehydrated,he isnt eating/ drinking. She put patient on speakerphone- he states that his primary concern is that he is constipated. Using miralax and stool softeners daily, also took 2 dulcolax last night. Lastgood BM was Sunday11/24/23. Has been passing small amounts of hard stool, able to pass gas. He den ies nausea and abdominal pain. Reviewed with Dr Queen - patient to come for 1L NSS over 2 hours. Offered appt at 11:30am, patients accepted - ok for patient to try enema documented in this encounter Plan of Treatment Upcoming Encounters Date Type Department Care Team (Late st Contact Info) Description 12/03/2023 11:30 AM EST [facility] [phone] 12/26/2023 2:40 PM EDT Office Visit Family Practice [facility] 132 [facility] [place] [address] Dru Fritz MD 132 [facility] [place] [address] 01/17/2024 10:40 AM EDT Laboratory Laboratory [facility] 200 [facility] [place] [phone] [place], [address] [place] [address] 01/17/2024 11:15 AM EDT Office Visit Hematology/Oncology [facility] 200 [facility] [place] [phone] Elio Queen MD 200 [facility] [place] [address] 01/17/2024 11:45 AM EDT Immunization[facility]Injectio n [facility] 200 [facility] [phone] Nurse, Med 4 200 [facility] [place] [address] 05/20/2024 2:15 PM EDT Office Visit Urology, [facility] [address] [place] [address] Isaías Novak MD [address] [address] [place] [address] Health Maintenance Due Date Last Done Comments DISCUSS TOBACCO CESSATION (REFER TO SMARTSET #0883) 1960 COVID-19 Vaccine (#1) 1964 Pneumococcal Vaccine: [...] Additional history exists CKD HGB USE SMARTSET 49236 11/28/2024, 11/29/2023, 11/22/2023, Additional history exists CKD PHOS USE SMARTSET 05973 11/28/202411/02, 10/10/2023, 09/10/2023, Additional history exists GARDASIL-HPV IMMUNIZATION SERIES Aged Out No longer eligible based on patient's age to complete this topic Hepatitis B Aged Out No longer eligi ble based on patient's age to complete this topic MENINGOCOCCAL (MENACTRA/MENVEO) Aged Out No longer eligible based on patient's age to complete this topic documented as of this encounter Medical Devices Implanted Type Area Sales Enablement Lead Device Identifier Shelf Expiration Date Model / Serial / Lot Stent Trnscarotid Enroute 7x40 - [id number] Implanted:Qty: 1 on 01/25/2021 by Zeinab Robert MD at [facility] Left: [facility] [id number] 05/31/2023 SR-0740-C S / / [id number] documented as of this encounter Advance Directives Latest Code Status on File Code Status Date Activated Date Inactivated Comments Full Code 01/25/2021 10:53 AM 01/26/2021 1:19 PM This order reflects the patients wishes and were consensually agreed upon. Care Teams Behavioral Therapist Relationship Specialty Start Date End Date Dru Fritz MD [address] [place] [address] PCP - General Family Medicine 01/24/21 documented as of this encounter
--- OUTSIDE RECORDS SUMMARY | 2024-01-12 09:05 | External Medical Summary | Summary of Care ---
Author Name Unknown Organization [facility] Address [address] [place] [address] Phone [phone] Care Team Providers Care Chucking Lathe Operator Name Role Phone Nima Norton MD Primary Care Provider [phone] Reason for Referral * Medication Prior Authorization - Pending Review Specialty Diagnoses / Procedures Referred By Contac t Referred To Contact Diagnoses Malignant neoplasm metastatic to bone (HCC) Nima Norton MD [address] [place] [address] Referral ID Status Reason Start Date Expiration Date V isits Requested Visits Authorized [id number] Pending Review [phone] Reason for Visit * Reason Onset Date Comments Medication Refill 11/30/2023 Encounter Details Date Type Department Care Team (Late st Contact Info) Description 11/30/[address] [facility] [address] [place] [address] Nima Norton MD [address] [place] [address] Malignant neoplasm metastatic to bone (HCC) Allergies [...] 5 03/27/2018 Active Blood Glucose Monitoring Suppl (Hundsun TechnologiesTOUCH VERIO) w/Device KIT Use up to 4 [...] NORTON * Telephone Encounter - Yandy Ojeda [facility] - 11/30/2023 10:10 AM ESTPending Prescriptions: Disp Refills traMADol HCl 50 MG Oral Tablet (Ultram) 180 Ta*0 Sig: Take 2 Tablets by mouth 3 times a day as needed for Pain, Moderate. * Telephone Encounter - Yandy Ojeda [facility] - 11/30/2023 10:10 AM EST I have reviewed the patients controlled substance dispensing history in the Prescription Drug Monitoring Program in compliance with the [facility] regulations before prescribing a controlled substance. PDMP checked on 11/30/2023. Pending Prescriptions: Disp Refills traMADol HCl 50 MG Oral Tablet (Ultram) 180 Ta*0 Sig: Take 2 Tablets by mouth 3 times a day as needed for Pain, Moderate. Last Visit: 04/18/2022 (in office), 05/04/2022 (telemedicine) Next Visit: 12/26/2023 Date medication was last filled: 11/02 Date medication is due for refill: 11/30 Pharmacy: [facility] Is this request for a controlled substance? Yes and Urine Drug Screen Not completed Toxicology results: No results found. However, due to the size of the patient record, not all encounters were searched.Please check Results Review for a complete set of results. Please approve if appropriate. Thanks, Yandy Ojeda, PharmD Clinical Pharmacist [facility] ([facility]) (formerly Telepharmacy) [phone] 11/30/2023 10:10 AM * Telephone Encounter - Aida Cárdenas [facility]Ph[facility] - 11/30/2023 9:59 AM EST Pt only has enough medication for today and is requesting high priority. Advised of medication policy. I have reviewed the patients controlled substance dispensing history in the Prescription Drug Monitoring Program in compliance with the [facility] regulations before prescribing a controlled substance. PDMP checked on 11/30/2023. Pending Prescriptions: Disp Refills traMADol HCl 50 MG Oral Tablet (Ultram) 180 Ta*0 Sig: Take 2 Tablets by mouth 3 times a day as needed for Pain, Moderate. Last Visit: 04/18/2022 (in office), 05/04/2022 (telemedicine) Next Visit: 12/26/2023 Date medication was last filled: 11/02/23 Date medication is due for refill: 12/01/23 Pharmacy: [facility] Is this request for a controlled substance? Yes and Urine Drug Screen Not completed Toxicology results: No results found. However, due to the size of the patient record, not all encounters were searched.Please check Results Review for a complete set of results. Please approve if appropriate. Thank you, Leila Cárdenas Business Support Administrator III [facility] ([facility]) 11/30/2023,9:59 AM documented in this encounter Plan of Treatment Upcoming Encounters Date Type Department Care Team (Late st Contact Info) Description 12/26/2023 2:40 PM EDT Office Visit [facility] [address] [place] [address] Nima Norton MD [address] [place] [address] 01/17/2024 11:15 AM EDT Office Visit Hematology/Oncology [facility] 200 [facility] [place] [address] Elio Queen MD 200 [facility] [place] [address] 05/20/2024 2:15 PM EDT Office Visit Urology, [facility] [address] [facility] [place] [address] Isaías Novak MD [address] [place] [address] [place] [address] Health Maintenance Due Date Last Done Comments DISCUSS TOBACCO CESSATION (REFER TO SMARTSET #4982) 1960 COVID-19 Vaccine (#1) 1964 Pneumococcal Vaccine: [...] Additional history exists CKD HGB USE SMARTSET 08202 11/28/2024, 11/29/2023, 11/22/2023, Additional history exists CKD PHOS USE SMARTSET 56536 11/28/202411/02, 10/10/2023, 09/10/2023, Additional history exists GARDASIL-HPV IMMUNIZATION SERIES Aged Out No longer eligible based on patient's age to complete this topic Hepatitis B Aged Out No longer eligi ble based on patient's age to complete this topic MENINGOCOCCAL (MENACTRA/MENVEO) Aged Out No longer eligible based on patient's age to complete this topic documented as of this encounter Medical Devices Implanted Type Area Chief Data Officer Device Identifier Shelf Expiration Date Model / Serial / Lot Stent Trnscarotid Enroute 7x40 - [id number] Implanted:Qty: 1 on 01/25/2021 by Zeinab Robert MD at [facility] Left: [facility] [id number] 05/31/2023 SR-0740-C S / / [id number] documented as of this encounter Visit Diagnoses Diagnosis Malignant neoplasm metastatic to bone (HCC) Secondary malignant neoplasm of bone and bone marrow documented in this encounter Advance Directives Latest Code Status on File Code Status Date Activated Date Inactivated Comments Full Code 01/25/2021 10:53 AM 01/26/2021 1:19 PM This order reflects the patients wishes and were consensually agreed upon. Care Teams Chucking Lathe Operator Relationship Specialty Start Date End Date Nima Norton MD 132 [facility] [place] [address] PCP - General Family Medicine 01/24/21 documented as of this encounter
--- OUTSIDE RECORDS SUMMARY | 2024-01-12 09:05 | External Medical Summary ---
Author Name Unknown Address Unknown Organization K01:[facility] - [address] [place] [address] Laboratory Report Ordering Provider Test Date Status PATRICE QUINONES 11/29/2023 08:20:13 Final Observation Date Value Abnormality Reference (Units ) Status PSA 11/29/2023 08:20:13 156.00 Above high normal <4 .10 (ng/mL) Final Performing Location [facility] - [address] [place] [address]
--- OUTSIDE RECORDS SUMMARY | 2024-01-12 09:05 | External Medical Summary | Summary of Care ---
Author Name Unknown Organization [facility] Address [address] [place] [facility] [place] [address] Phone [phone] Care Team Providers Care Nursing Home Assistant Administrator Name Role Phone Dru Fritz MD Primary Care Provider [phone] Reason for Visit * Reason Comments Nurse Documentation Holding treatment to day per Dr. Queen for disease progression on current treatment. Encounter Details Date Type Department Care Team (Late st Contact Info) Description 11/29/2023 9:15 AM EST Hem/Onc Treatment Hematology/Oncology Treatment, [address] [phone] Saritha, Chair 9 Hem On[address] [address] Arrived Allergies Active Allergy Reactions Criticality Noted Date Comments Amoxicillin-Pot Clavulanate 05/17/20 22 Dizziness and confused documented as of this encounter (statuses as of 11/29/2023) Medications Medication Sig Dispensed Refills Start Date End Date Status Beacon Power SYSTEM W/DEVICE KITIndications:DM type 2, goal A1c [...] as of this encounter Nursing Notes * Heike Connors, RN - 11/29/2023 9:37 AM EST Pt seen today by Dr. Queen. See office visit note. Holding treatment today per Dr. Queen for disease progression on current treatment. documented in this encounter Plan of Treatment Upcoming Encounters Date Type Department Care Team (Late st Contact Info) Description 11/29/2023 11:20 AM EST Laboratory Laboratory [place] [facility] [address] [place] [phone] Isis Melara [address] [place] [address] Prostate cancer metastatic to multiple sites (HCC); Metastasis to bone (HCC) 12/26/2023 2:40 PM EDT Office Visit Family Practice [facility] 132 [facility] [place] [address] Dru Fritz MD [address] [place] [address] 05/20/2024 2:15 PM EDT Office Visit Urology, [facility] 132 [facility] [place] [address] Isaías Novak MD 27 [facility] [place] [address] [place] [address] Health Maintenance Due Date Last Done Comments DISCUSS TOBACCO CESSATION (REFER TO SMARTSET #6471) 1960 COVID-19 Vaccine (#1) 1965 Pneumococcal Vaccine: [...] Additional history exists CKD HGB USE SMARTSET 86422 11/28/2024, 11/29/2023, 11/22/2023, Additional history exists CKD PHOS USE SMARTSET 33771 11/28/202411/02, 10/10/2023, 09/10/2023, Additional history exists GARDASIL-HPV IMMUNIZATION SERIES Aged Out No longer eligible based on patient's age to complete this topic Hepatitis B Aged Out No longer eligi ble based on patient's age to complete this topic MENINGOCOCCAL (MENACTRA/MENVEO) Aged Out No longer eligible based on patient's age to complete this topic documented as of this encounter Medical Devices Implanted Type Area Tube Worker Device Identifier Shelf Expiration Date Model / Serial / Lot Stent Trnscarotid Enroute 7x40 - [id number] Implanted:Qty: 1 on 01/25/2021 by Zeinab Robert MD at [facility] Left: [facility] [id number] 05/31/2023 SR-0740-C S / / [id number] documented as of this encounter Advance Directives Latest Code Status on File Code Status Date Activated Date Inactivated Comments Full Code 01/25/2021 10:53 AM 01/26/2021 1:19 PM This order reflects the patients wishes and were consensually agreed upon. Care Teams Nursing Home Assistant Administrator Relationship Specialty Start Date End Date Dru Fritz MD [address] [place] [address] PCP - General Family Medicine 01/24/21 documented as of this encounter
--- OUTSIDE RECORDS SUMMARY | 2024-01-12 09:05 | External Medical Summary | Summary of Care ---
Author Name Unknown Organization [facility] Address [address] [place] [address] Phone [phone] Care Team Providers Care Jd Edwards Developer Name Role Phone Dru Fritz MD Primary Care Provider [phone] [phone] Reason for Visit * Reason Onset Date Comments Information 12/03/2023 Encounter Details Date Type Department Care Team (Late st Contact Info) Description 12/03/2023 Telephone Hematology/Oncology Treatment, [place] [address] [place] [address] Elio Queen MD 200 [place] [address] Information Allergies Active Allergy Reactions Criticality Noted Date Comments Amoxicillin-Pot Clavulanate 05/17/20 22 Dizziness and confused documented as of this encounter (statuses as of 12/03/2023) Medications Medication Sig Dispensed Refills Start Date End Date Status Tubaloo SYSTEM W/DEVICE KITIndications:DM type 2, goal A1c [...] - ok for patient to try enema or MoM for constipation. Patient aware. documented in this encounter Plan of Treatment Upcoming Encounters Date Type Department Care Team (Late st Contact Info) Description 12/26/2023 2:40 PM EDT Office Visit Family Practice [facility] [address] [place] [address] Dru Fritz MD [address] [place] [address] 01/17/2024 10:40 AM EDT Laboratory Laboratory [facility] [address] [place] [phone] [facility] 200 [facility] [place] [address] 01/17/2024 11:15 AM EDT Office Visit Hematology/Oncology [facility] [place] [address] [place] [phone] Elio Queen MD 200 [facility] [place] [phone] 01/17/2024 11:45 AM EDT Immunization/Injectio n Hematology/Oncology Treatment, [place] [address] [place] [phone] Nurse, Med 4 200 [facility] [place] [address] 05/20/2024 2:15 PM EDT Office Visit Urology, [facility] [address] [place] [address] Isaías Novak MD 27 [facility] [address] [place] [address] Health Maintenance Due Date Last Done Comments DISCUSS TOBACCO CESSATION (REFER TO SMARTSET #1657) 1960 COVID-19 Vaccine (#1) 1964 Pneumococcal Vaccine: [...] Additional history exists CKD HGB USE SMARTSET 02777 11/28/2024, 11/29/2023, 11/22/2023, Additional history exists CKD PHOS USE SMARTSET 79384 11/28/202411/02, 10/10/2023, 09/10/2023, Additional history exists GARDASIL-HPV IMMUNIZATION SERIES Aged Out No longer eligible based on patient's age to complete this topic Hepatitis B Aged Out No longer eligi ble based on patient's age to complete this topic MENINGOCOCCAL (MENACTRA/MENVEO) Aged Out No longer eligible based on patient's age to complete this topic documented as of this encounter Medical Devices Implanted Type Area Pr Intern Device Identifier Shelf Expiration Date Model / Serial / Lot Stent Trnscarotid Enroute 7x40 - [id number] Implanted:Qty: 1 on 01/25/2021 by Zeinab Robert MD at [facility] Left: [facility] [id number] 05/31/2023 SR-0740-C S / / [id number] documented as of this encounter Advance Directives Latest Code Status on File Code Status Date Activated Date Inactivated Comments Full Code 01/25/2021 10:53 AM 01/26/2021 1:19 PM This order reflects the patients wishes and were consensually agreed upon. Care Teams Jd Edwards Developer Relationship Specialty Start Date End Date Dru Fritz MD [address] [place] [address] PCP - General Family Medicine 01/24/21 documented as of this encounter
--- OUTSIDE RECORDS SUMMARY | 2024-01-12 09:05 | External Medical Summary | Summary of Care ---
Author Name Unknown Organization [facility] Address [address] [facility] [place] [address] Phone [phone] Care Team Providers Care Bullard Machine Operator Name Role Phone Dru Fritz MD Primary Care Provider +1 [phone] Encounter Details Date Type Department Care Team (Late st Contact Info) Description 11/21/2023 Orders Only Family Practice [facility] [address] [place] [address] Dru Fritz MD [address] [place] [address] Allergies Active Allergy Reactions Criticality Noted Date Comments Amoxicillin-Pot Clavulanate 05/17/20 22 Dizziness and confused documented as of this encounter (statuses as of 11/29/2023) Medications Medication Sig Dispensed Refills Start Date End Date Status Service at Home SYSTEM W/DEVICE KITIndications:DM type 2, goal A1c [...] 2:40 PM EDT Office Visit Family Practice [facility] [address] [place] [address] Dru Fritz MD [address] [place] [address] 05/20/2024 2:15 PM EDT Office Visit Urology, [facility] [address] [place] [address] Isaías Novak MD [address] [address] [place] [address] Health Maintenance Due Date Last Done Comments DISCUSS TOBACCO CESSATION (REFER TO SMARTSET #7301) 1959 COVID-19 Vaccine (#1) 1964 Pneumococcal Vaccine: [...] Additional history exists CKD HGB USE SMARTSET 31258 11/28/2024, 11/29/2023, 11/22/2023, Additional history exists CKD PHOS USE SMARTSET 73896 11/28/202411/02, 10/10/2023, 09/10/2023, Additional history exists GARDASIL-HPV IMMUNIZATION SERIES Aged Out No longer eligible based on patient's age to complete this topic Hepatitis B Aged Out No longer eligi ble based on patient's age to complete this topic MENINGOCOCCAL (MENACTRA/MENVEO) Aged Out No longer eligible based on patient's age to complete this topic documented as of this encounter Medical Devices Implanted Type Area Fireman Device Identifier Shelf Expiration Date Model / Serial / Lot Stent Trnscarotid Enroute 7x40 - [id number] Implanted:Qty: 1 on 01/25/2021 by Zeinab Robert MD at [facility] Left: [employer] [id number] 05/31/2023 SR-0740-C S / / [id number] documented as of this encounter Procedures Procedure Name Priority Date/Time Associated Diagnosis Comments RADIOLOGY EXAM - PET (IMAGES ONLY, NO REPORT) Routine 11/21/2023 1:45 PM EST documented in this encounter Results * RADIOLOGY EXAM - PET (IMAGES ONLY, NO REPORT) (11/21/2023 1:45 PM EST) 11/21/2023 1:45 PM EST Narrative Scheduling, Silent - 11/29/2023 7:47 PM EST This is an imaging study not interpreted or resulted by a [facility] or [facility] contracted radiologist. Dru Fritz MD [facility] NUCLEAR MED documented in this encounter Advance Directives Latest Code Status on File Code Status Date Activated Date Inactivated Comments Full Code 01/25/2021 10:53 AM 01/26/2021 1:19 PM This order reflects the patients wishes and were consensually agreed upon. Care Teams Bullard Machine Operator Relationship Specialty Start Date End Date Dru Fritz MD [address] [facility] [place] [address] PCP - General Family Medicine 01/24/21 documented as of this encounter
--- OUTSIDE RECORDS SUMMARY | 2024-01-12 09:05 | External Medical Summary ---
Author Name Unknown Address Unknown Organization K09[facility] [address] [place] [address] Laboratory Report Ordering Provider Test Date Status PATRICE QUINONES 11/29/2023 08:20:13 Final Observation Date Value Abnormality Reference (Units ) Status SYNC LEUKOCYTES IN BLOOD BY AUTOMATED COUNT 11/29/2023 08:20:13 14.31 Above high normal 4.00-10.80 (K/uL) Final Segs 11/29/2023 08:20:13 84.0 Above high normal 40.0-75.0 (%) Final Lymphs % 11/29/2023 08:20:13 7.2 Below low normal 18.0-42.0 (%) Final Monos 11/29/2023 08:20:13 8.4 1.0-11.0 (%) Final Eosinophils 11/29/2023 08:20:13 0.1 0.0-6.0 (%) Final Basos 11/29/2023 08:20:13 0.3 0.0-2.0 (%) Final Absolute Segs 11/29/2023 08:20:13 12.03 Above high normal 1.80-7.70 (K/uL) Final Lymphs, absolute 11/29/2023 08:20:13 1.03 1.00-4.80 (K/ul) Final Monos, Abs 11/29/2023 08:20:13 1.20 Above high normal 0.00-1.10 (K/uL) Final Eos, Abs 11/29/2023 08:20:13 0.01 0.00-0.70 (K/uL) Final Basos, Abs 11/29/2023 08:20:13 0.04 0.00-0.20 (K/uL) Final Performing Location [facility] [address] [place] [address]
--- OUTSIDE RECORDS SUMMARY | 2024-01-12 09:05 | External Medical Summary | Summary of Care ---
Author Name Unknown Organization [facility] Address [address] [place] [address] Phone [phone] Care Team Providers Care Sausage Linker Name Role Phone Dru Fritz MD Primary Care Provider [phone] [phone] Encounter Details Date Type Department Care Team (Latest Contact Info) Description 11/21/2023 1:45 PM EST - 11/21/2023 11:59 PM EST Hospital Encounter Radiology Film [facility] [address] [place] [address] Discharge Disposition: Home - Self Care Allergies Active Allergy Reactions Criticality Noted Date Comments Amoxicillin-Pot Clavulanate 05/17/20 22 Dizziness and confused documented as of this encounter (statuses as of 11/30/2023) Medications Medication Sig Dispensed Refills Start Date End Date Status [email or web address] SYSTEM W/DEVICE KITIndications:DM type 2, goal A1c [...] PM EDT Office Visit Family Practice [facility] [address] [place] [address] Dru Fritz MD [address] [place] [address] 01/17/2024 11:15 AM EDT Office [facility] [place] [place] [address] [place] [address] Elio Queen MD [address] [place] [address] 05/20/2024 2:15 PM EDT Office Visit Urology, [facility] [address] [place] [address] Isaías Novak MD [facility] [address] [place] [address] Health Maintenance Due Date Last Done Comments DISCUSS TOBACCO CESSATION (REFER TO SMARTSET #7951) 1960 COVID-19 Vaccine (#1) 1964 Pneumococcal Vaccine: [...] Additional history exists CKD HGB USE SMARTSET 87162 11/28/2024, 11/29/2023, 11/22/2023, Additional history exists CKD PHOS USE SMARTSET 20949 11/28/202411/02, 10/10/2023, 09/10/2023, Additional history exists GARDASIL-HPV IMMUNIZATION SERIES Aged Out No longer eligible based on patient's age to complete this topic Hepatitis B Aged Out No longer eligi ble based on patient's age to complete this topic MENINGOCOCCAL (MENACTRA/MENVEO) Aged Out No longer eligible based on patient's age to complete this topic documented as of this encounter Medical Devices Implanted Type Area Roller Checker Device Identifier Shelf Expiration Date Model / Serial / Lot Stent Trnscarotid Enroute 7x40 - [id number] Implanted:Qty: 1 on 01/25/2021 by Zeinab Robert MD at [facility] Left: Carotid [facility] [id number] 05/31/2023 SR-0740-C S / / [id number] documented as of this encounter Procedures Procedure [...] interpreted or resulted by a [facility] contracted radiologist. Dru Fritz MD [facility] NUCLEAR MED documented in this encounter Advance Directives Latest Code Status on File Code Status Date Activated Date Inactivated Comments Full Code 01/25/2021 10:53 AM 01/26/2021 1:19 PM This order reflects the patients wishes and were consensually agreed upon. Care Teams Sausage Linker Relationship Specialty Start Date End Date Dru Fritz MD [address] [facility] [place] [address] PCP - General Family Medicine 01/24/21 documented as of this encounter
--- OUTSIDE RECORDS SUMMARY | 2024-01-12 09:05 | External Medical Summary ---
Author Name Unknown Address Unknown Organization K09[facility] [place] [address] [place] [address] Laboratory Report Ordering Provider Test Date Status STACIEPATRICE 11/29/2023 08:20:13 Final Observation Date Value Abnormality Reference (Units ) Status Phosphate 11/29/2023 08:20:13 1.6 Below low normal 2.5 -4.8 (mg/dL) Final Performing Location [facility] [address] [place] [address]
--- OUTSIDE RECORDS SUMMARY | 2024-01-12 09:06 | External Medical Summary | Summary of Care ---
Author Name Unknown Organization [facility] Address [address] [place] [address] Phone [phone] Care Team Providers Care System Developer Associate Manager Name Role Phone Dru Fritz MD Primary Care Provider [phone] [phone] Reason for Visit * Reason Onset Date Comments Advice 11/26/2023 Encounter Details Date Type Department Care Team (Late st Contact Info) Description 11/26/2023 Telephone Hematology/Oncology [facility] [place] [address] [facility] [place] [phone] [facility]io [facility] [address] Advice Allergies Active Allergy Reactions Criticality Noted Date Comments Amoxicillin-Pot Clavulanate 05/17/20 22 Dizziness and confused documented as of this encounter (statuses as of 11/26/2023) Medications Medication Sig Dispensed Refills Start Date End Date Status Affectv SYSTEM W/DEVICE KITIndications:DM type 2, goal A1c [...] as of this encounter (statuses as of 11/26/2023) Active Problems Problem Noted Date Diagnosed Date [...] as of this encounter (statuses as of 11/26/2023) Resolved Problems Problem Noted Date Diagnosed Date [...] as of this encounter (statuses as of 11/26/2023) Immunizations No known immunizationsdocumented as of this [...] would be a good candidate for this. [facility] Rad Onc- Do you do these types of infusions? documented in this encounter Plan of Treatment Upcoming Encounters Date Type Department Care Team (Late st Contact Info) Description 11/28/2023 9:00 AM EST Laboratory Laboratory [address] [place] [phone] [place] [address] 11/29/2023 8:45 AM EST Office Visit Hematology/Oncology [facility] Saritha [address] [place] [address] Elio Queen MD [address] [place] [address] 11/29/2023 9:15 AM EST Hem/Onc Treatment Hematology/Oncology Treatment, [place] [address] [place], [place] [phone] Park, Chair 9 Hem Onc [address] [place], [place] [address] 12/26/2023 2:40 PM EDT Office Visit Family Practice [facility] [place] [address] Dru Fritz MD [address] [place] [address] 05/20/2024 2:15 PM EDT Office Visit Urology, [facility] [address] [place] [facility] [place] [address] Isaías Novak MD [address] [address] [place] [address] Health Maintenance Due Date Last Done Comments DISCUSS TOBACCO CESSATION (REFER TO SMARTSET #7126) 1960 COVID-19 Vaccine (#1) 1964 Pneumococcal Vaccine: [...] Additional history exists CKD PHOS USE SMARTSET 36505 10/10/202410/01, 09/10/2023, 08/14/2023, Additional history exists CKD HGB USE SMARTSET 35297 11/22/202411/22, 11/22/2023, 10/31/2023, Additional history exists GARDASIL-HPV IMMUNIZATION SERIES Aged Out No longer eligible based on patient's age to complete this topic Hepatitis B Aged Out No longer eligi ble based on patient's age to complete this topic MENINGOCOCCAL (MENACTRA/MENVEO) Aged Out No longer eligible based on patient's age to complete this topic documented as of this encounter Medical Devices Implanted Type Area Wave Soldering Machine Operator Device Identifier Shelf Expiration Date Model / Serial / Lot Stent Trnscarotid Enroute 7x40 - [id number] Implanted:Qty: 1 on 01/25/2021 by Zeinab Robert MD at [facility] Left: [facility] [id number] 05/31/2023 SR-0740-C S / / [id number] documented as of this encounter Advance Directives Latest Code Status on File Code Status Date Activated Date Inactivated Comments Full Code 01/25/2021 10:53 AM 01/26/2021 1:19 PM This order reflects the patients wishes and were consensually agreed upon. Care Teams System Developer Associate Manager Relationship Specialty Start Date End Date Dru Fritz MD [address] [place] [address] PCP - General Family Medicine 01/24/21 documented as of this encounter
--- OUTSIDE RECORDS SUMMARY | 2024-01-12 09:06 | External Medical Summary | Summary of Care ---
Author Name Unknown Organization [facility] Address [address] [place] [address] Phone [phone] Care Team Providers Care Global Marketing Specialist Name Role Phone Dru Fritz MD Primary Care Provider [phone] Reason for Referral * Precert (Within 10 days (routine)) - Authorized Specialty Diagnoses / Procedures Referred By Contac t Referred To Contact Radiology Diagnoses Prostate cancer metastatic to multiple sites (HCC) Metastasis to bone (HCC) Procedures NM PROSTATE WITH PLUVADALIDO Stacie Queen MD [address] [facility] [place] [address] Referral ID Status Reason Start Date Expiration Date V isits Requested Visits Authorized [id number] Authorized 12/03/2023 999 999 Reason for Visit * Reason Onset Date Comments Advice 11/26/2023 Encounter Details Date Type Department Care Team (Late st Contact Info) Description 11/26/2023 Telephone Hematology/Oncology [facility] [place] [address] [place] [phone] Stacie Queen MD [address] [facility] [place] [address] Advice Allergies Active Allergy Reactions Criticality Noted Date Comments Amoxicillin-Pot Clavulanate 05/17/20 22 Dizziness and confused documented as of this encounter (statuses as of 11/27/2023) Medications Medication Sig Dispensed Refills Start Date End Date Status Questetra SYSTEM W/DEVICE KITIndications:DM type 2, goal A1c below 7 Use up to four times a day as directed 1 Kit 0 07/28/2014 Active Aspirin 81 MG TBEC Take 1 Tablet by mouth in the morning. 0 Active sildenafil (REVATIO) 20 MG Tablet Take 3 tablets by mouth 1 hour prior to sexual activity 30 Tab 5 03/27/2018 Active Blood Glucose Monitoring Suppl (TriageTOUCH VERIO) w/Device KIT Use up to 4 [...] 12:16 PM EST Called Sunny Francisco with [facility] to review referral @ [phone]. No answer, left detailed message on machine [...] correct order. Please check with nuclear medicine [facility] department. * Telephone Encounter - Ángel Thompson RN - 11/26/2023 1:[address] Queen- I spoke with CAS Coker, she states they do Pluvicto infusions in [place] in Nuc Med. Patient is coming to see you on , if agreeable, please send referral to [facility] NuclearMedicine. * Telephone Encounter - Ángel Thompson RN - 11/26/2023 1:14 PM EST "Unfortunately, we do not do infusions here in Rad/Onc. Maybe nuclear medicine does? JYOTI Contreras [facility] Rad/Onc " * Telephone Encounter - Ángel Thompson RN - 11/26/2023 12:[address] Queen- would like to refer patient for Pluvicto RT treatments as he feels he would be a good candidate for this. [facility] Rad Onc- Do you do these types of infusions? documented in this encounter Plan of Treatment Upcoming Encounters Date Type Department Care Team (Late st Contact Info) Description 11/28/2023 9:00 AM EST Laboratory Laboratory [address] [place] [phone] [place] [address] 11/29/2023 8:45 AM EST Office Visit Hematology/Oncology [facility] [address] [place] [phone] Stacie Queen MD [address] [place] [address] 11/29/2023 9:15 AM EST Hem/Onc Treatment Hematology/Oncology Treatment, [place] [address] [place] [phone] Saritha, Chair 9 Hem Onc [facility] [address] [facility] [place] [address] 12/26/2023 2:40 PM EDT Office Visit Family Practice [facility] 132 [facility] [place] [address] Dru Fritz MD 132 [facility] [place] [address] 05/20/2024 2:15 PM EDT Office Visit Urology, [facility] 132 [facility] [place] [address] Isaías Novak MD 27 [facility] [place] [address] [place] [address] Scheduled Orders Name Type Priority Associated Diagnoses Orde r Schedule NM PROSTATE WITH PLUVICTO Medical Imaging Routine Prostate cancer metastatic to multiple sites (HCC) Metastasis to bone (HCC) Expected: 12/03/2023, Expires: 12/24/2024 Health Maintenance Due Date Last Done Comments DISCUSS TOBACCO CESSATION (REFER TO SMARTSET #3291) 1960 COVID-19 Vaccine (#1) 1965 Pneumococcal Vaccine: [...] Additional history exists CKD PHOS USE SMARTSET 65829 10/10/202410/01, 09/10/2023, 08/14/2023, Additional history exists CKD HGB USE SMARTSET 68403 11/22/202411/22, 11/22/2023, 10/31/2023, Additional history exists GARDASIL-HPV IMMUNIZATION SERIES Aged Out No longer eligible based on patient's age to complete this topic Hepatitis B Aged Out No longer eligi ble based on patient's age to complete this topic MENINGOCOCCAL (MENACTRA/MENVEO) Aged Out No longer eligible based on patient's age to complete this topic documented as of this encounter Medical Devices Implanted Type Area Delivery Specialist Device Identifier Shelf Expiration Date Model / Serial / Lot Stent Trnscarotid Enroute 7x40 - [id number] Implanted:Qty: 1 on 01/25/2021 by Zeinab Robert MD at [facility] Left: [facility] [id number] 05/31/2023 SR-0740-C S / / [id number] documented as of this encounter Visit Diagnoses [...] and were consensually agreed upon. Care Teams Global Marketing Specialist Relationship Specialty Start Date End Date Dru Fritz MD [address] [facility] [place] [address] PCP - General Family Medicine 01/24/21 documented as of this encounter
--- OUTSIDE RECORDS SUMMARY | 2024-01-12 09:06 | External Medical Summary | Summary of Care ---
Author Name Unknown Organization [facility] Address [address] [place] [address] Phone [phone] Care Team Providers Care Renewable Energy Technician Name Role Phone Dru Fritz MD Primary Care Provider [phone] Reason for Visit * Reason Onset Date Comments Advice 11/26/2023 constipation Encounter Details Date Type Department Care Team (Late st Contact Info) Description 11/26/2023 Telephone Hematology/Oncology [facility] [place] 200 [facility] [place] [phone] Elio Queen MD 200 [place] [address] Advice (constipation) Allergies Active Allergy Reactions Criticality Noted Date Comments Amoxicillin-Pot Clavulanate 05/17/20 22 Dizziness and confused documented as of this encounter (statuses as of 11/26/2023) Medications Medication Sig Dispensed Refills Start Date End Date Status Downstream SYSTEM W/DEVICE KITIndications:DM type 2, goal A1c [...] Description 11/28/2023 9:00 AM EST Laboratory Laboratory [address] [place] [address] [place], Lab [address] [place] [address] 11/29/2023 8:45 AM EST Office Visit Hematology/Oncology [facility] [place] [address] [place] [phone] Elio Queen MD [address] [place] [address] 11/29/2023 9:15 AM EST Hem/Onc Treatment Hematology/Oncology Treatment, [place] [address] [place] [address] Saritha, Chair 9 Hem Onc [facility] [address] [place] [address] 12/26/2023 2:40 PM EDT Office Visit [facility] [address] [facility] [place] [address] Dru Fritz MD 132 [facility] [place] [address] 05/20/2024 2:15 PM EDT Office Visit [facility] [address] [facility] [place] [address] Isaías Novak MD [facility] [address] [place] [address] Health Maintenance Due Date Last Done Comments DISCUSS TOBACCO CESSATION (REFER TO SMARTSET #8063) 1960 COVID-19 Vaccine (#1) 1965 Pneumococcal Vaccine: [...] Additional history exists CKD PHOS USE SMARTSET 26371 10/10/202410/01, 09/10/2023, 08/14/2023, Additional history exists CKD HGB USE SMARTSET 46077 11/22/202411/22, 11/22/2023, 10/31/2023, Additional history exists GARDASIL-HPV IMMUNIZATION SERIES Aged Out No longer eligible based on patient's age to complete this topic Hepatitis B Aged Out No longer eligi ble based on patient's age to complete this topic MENINGOCOCCAL (MENACTRA/MENVEO) Aged Out No longer eligible based on patient's age to complete this topic documented as of this encounter Medical Devices Implanted Type Area Hydrocrane Operator Device Identifier Shelf Expiration Date Model / Serial / Lot Stent Trnscarotid Enroute 7x40 - [id number] Implanted:Qty: 1 on 01/25/2021 by Zeinab Robert MD at [facility] Left: [facility] [id number] 05/31/2023 SR-0740-C S / / [id number] documented as of this encounter Advance Directives Latest Code Status on File Code Status Date Activated Date Inactivated Comments Full Code 01/25/2021 10:53 AM 01/26/2021 1:19 PM This order reflects the patients wishes and were consensually agreed upon. Care Teams Renewable Energy Technician Relationship Specialty Start Date End Date Dru Fritz MD [address] [place] [address] PCP - General Family Medicine 01/24/21 documented as of this encounter
--- OUTSIDE RECORDS SUMMARY | 2024-01-12 09:06 | External Medical Summary | Summary of Care ---
Author Name Unknown Organization [facility] Address [address] [place] [address] Phone [phone] Care Team Providers Care Riveter Name Role Phone Dru Fritz MD Primary Care Provider [phone] [phone] Reason for Referral * Precert (Within 10 days (routine)) - Authorized Specialty Diagnoses / Procedures Referred By Contac t Referred To Contact Radiology Diagnoses Prostate cancer metastatic to multiple sites (HCC) Metastasis to bone (HCC) Procedures NM PROSTATE WITH PLUVADALIDO Stacie Queen MD [address] [facility] [place] [address] Referral ID Status Reason Start Date Expiration Date V isits Requested Visits Authorized [id number] Authorized 12/03/2023 999 999 Reason for Visit * Reason Onset Date Comments Advice 11/26/2023 Encounter Details Date Type Department Care Team (Late st Contact Info) Description 11/26/2023 Telephone Hematology/Oncology [place] [address] [place] [phone] Stacie Queen MD [address] [facility] [place] [address] Advice Allergies Active Allergy Reactions Criticality Noted Date Comments Amoxicillin-Pot Clavulanate 05/17/20 22 Dizziness and confused documented as of this encounter (statuses as of 11/26/2023) Medications Medication Sig Dispensed Refills Start Date End Date Status [place] SYSTEM W/DEVICE KITIndications:DM type 2, goal A1c below 7 Use up to four times a day as directed 1 Kit 0 07/28/2014 Active Aspirin 81 MG TBEC Take 1 Tablet by mouth in the morning. 0 Active sildenafil (REVATIO) 20 MG Tablet Take 3 tablets by mouth 1 hour prior to sexual activity 30 Tab 5 03/27/2018 Active Blood Glucose Monitoring Suppl (Tonbo ImagingTOUCH VERIO) w/Device KIT Use up to 4 [...] as of this encounter Miscellaneous Notes * Addendum Note - Stacie Queen MD - 11/26/2023 6:14 PM ESTAddended by: STACIE QUEEN on: 11/26/2023 06:14 PM Modules accepted: Orders * Telephone Encounter - Stacie Queen MD - 11/26/2023 6:13 PM EST I ordered nuclear medicine order with Pluvicto , I hope this is the correct order. Please check with nuclear medicine [facility] department. * Telephone Encounter - Ángel Thompson RN - 11/26/2023 1:[address] Queen- I spoke with CAS Coker, she states they do Pluvicto infusions in [place] in Nuc Med. Patient is coming to see you on , if agreeable, please send referral to [facility] NuclearMedicine. * Telephone Encounter - Ángel Thompson RN - 11/26/2023 1:14 PM EST "Unfortunately, we do not do infusions here in Rad/Onc. Maybe nuclear medicine does? JYOTI Contreras [facility] Rad/Onc " * Telephone Encounter - Ángel Thompson RN - 11/26/2023 12:[address] Queen- would like to refer patient for Pluvicto RT treatments as he feels he would be a good candidate for this. [facility] Rad Onc- Do you do these types of infusions? documented in this encounter Plan of Treatment Upcoming Encounters Date Type Department Care Team (Late st Contact Info) Description 11/28/2023 9:00 AM EST Laboratory Laboratory [address] [place] [phone] [place] [address] 11/29/2023 8:45 AM EST Office Visit Hematology/Oncology [place] [address] [facility] [place], [place] [phone] Stacie Queen MD [address] [facility] [place] [address] 11/29/2023 9:15 AM EST Hem/Onc Treatment Hematology/Oncology Treatment, [place] [address] [facility] [place] [address] Saritha, Chair 9 Hem Onc [facility] [address] [facility] [place] [address] 12/26/2023 2:40 PM EDT Office Visit Family Practice [facility] [address] [place] [address] Dru Fritz MD [address] [place] [address] 05/20/2024 2:15 PM EDT Office Visit Urology, [facility] [address] [place] [address] Isaías Novak MD [address] [address] [place] [address] Scheduled Orders Name Type Priority Associated Diagnoses Orde r Schedule NM PROSTATE WITH PLUVICTO Medical Imaging Routine Prostate cancer metastatic to multiple sites (HCC) Metastasis to bone (HCC) Expected: 12/03/2023, Expires: 12/24/2024 Health Maintenance Due Date Last Done Comments DISCUSS TOBACCO CESSATION (REFER TO SMARTSET #6423) 1959 COVID-19 Vaccine (#1) 1964 Pneumococcal Vaccine: [...] Additional history exists CKD PHOS USE SMARTSET 67566 10/10/202410/01, 09/10/2023, 08/14/2023, Additional history exists CKD HGB USE SMARTSET 88396 11/22/202411/22, 11/22/2023, 10/31/2023, Additional history exists GARDASIL-HPV IMMUNIZATION SERIES Aged Out No longer eligible based on patient's age to complete this topic Hepatitis B Aged Out No longer eligi ble based on patient's age to complete this topic MENINGOCOCCAL (MENACTRA/MENVEO) Aged Out No longer eligible based on patient's age to complete this topic documented as of this encounter Medical Devices Implanted Type Area State'S Attorney Device Identifier Shelf Expiration Date Model / Serial / Lot Stent Trnscarotid Enroute 7x40 - [id number] Implanted:Qty: 1 on 01/25/2021 by Zeinab Robert MD at [facility] Left: [facility] [id number] 05/31/2023 SR-0740-C S / / [id number] documented as of this encounter Visit Diagnoses [...] and were consensually agreed upon. Care Teams Riveter Relationship Specialty Start Date End Date Dru Fritz MD [address] [place] [address] PCP - General Family Medicine 01/24/21 documented as of this encounter
--- OUTSIDE RECORDS SUMMARY | 2024-01-12 09:06 | External Medical Summary | Summary of Care ---
Author Name Unknown Organization [facility] Address [address] [place] [address] Phone [phone] Care Team Providers Care Track Greaser Name Role Phone Dru Fritz MD Primary Care Provider [phone] Reason for Visit * Reason Onset Date Comments Advice 11/26/2023 Encounter Details Date Type Department Care Team (Late st Contact Info) Description 11/26/2023 Telephone Hematology/Oncology [facility] [place] 200 [facility] [place] [phone] [facility]io [facility] [address] Advice Allergies Active Allergy Reactions Criticality Noted Date Comments Amoxicillin-Pot Clavulanate 05/17/20 22 Dizziness and confused documented as of this encounter (statuses as of 11/26/2023) Medications Medication Sig Dispensed Refills Start Date End Date Status Refresh Body SYSTEM W/DEVICE KITIndications:DM type 2, goal A1c [...] she states they do Pluvicto infusions in [place] in Nuc Med. Patient is coming to see you on , if agreeable, please send referral to [facility] NuclearMedicine. * Telephone Encounter - Ángel Thompson RN - 11/26/2023 1:14 PM EST "Unfortunately, we do not do infusions here in Rad/Onc. Maybe nuclear medicine does? JYOTI Contreras [facility] Rad/Onc " * Telephone Encounter - Ángel Thompson RN - 11/26/2023 12:[address] Queen- would like to refer patient for Pluvicto RT treatments as he feels he would be a good candidate for this. [facility] Rad Onc- Do you do these types of infusions? documented in this encounter Plan of Treatment Upcoming Encounters Date Type Department Care Team (Late st Contact Info) Description 11/28/2023 9:00 AM EST Laboratory Laboratory [address] [place] [phone] [place] [address] 11/29/2023 8:45 AM EST Office Visit Hematology/Oncology [facility] [address] [place] [address] Elio Queen MD [address] [facility] [place] [address] 11/29/2023 9:15 AM EST Hem/Onc Treatment Hematology[facility], [place] [facility] [address] Saritha, Chair 9 Hem Onc [address] [place] [address] 12/26/2023 2:40 PM EDT Office Visit Family Practice [facility] [address] [place] [address] Dru Fritz MD [address] [place] [address] 05/20/2024 2:15 PM EDT Office Visit Urology, [facility] [address] [place] [address] Isaías Novak MD [address] [place] [address] [place] [address] Health Maintenance Due Date Last Done Comments DISCUSS TOBACCO CESSATION (REFER TO SMARTSET #9991) 1960 COVID-19 Vaccine (#1) 1964 Pneumococcal Vaccine: [...] Additional history exists CKD PHOS USE SMARTSET 17942 10/10/202410/01, 09/10/2023, 08/14/2023, Additional history exists CKD HGB USE SMARTSET 48603 11/22/202411/22, 11/22/2023, 10/31/2023, Additional history exists GARDASIL-HPV IMMUNIZATION SERIES Aged Out No longer eligible based on patient's age to complete this topic Hepatitis B Aged Out No longer eligi ble based on patient's age to complete this topic MENINGOCOCCAL (MENACTRA/MENVEO) Aged Out No longer eligible based on patient's age to complete this topic documented as of this encounter Medical Devices Implanted Type Area Minister Helper Device Identifier Shelf Expiration Date Model / Serial / Lot Stent Trnscarotid Enroute 7x40 - [id number] Implanted:Qty: 1 on 01/25/2021 by Zeinab Robert MD at [facility] Left: Carotid [facility] [id number] 05/31/2023 SR-0740-C S / / [id number] documented as of this encounter Advance Directives Latest Code Status on File Code Status Date Activated Date Inactivated Comments Full Code 01/25/2021 10:53 AM 01/26/2021 1:19 PM This order reflects the patients wishes and were consensually agreed upon. Care Teams Track Greaser Relationship Specialty Start Date End Date Dru Fritz MD [address] [place] [address] PCP - General Family Medicine 01/24/21 documented as of this encounter
--- OUTSIDE RECORDS SUMMARY | 2024-01-12 09:06 | External Medical Summary | Summary of Care ---
Author Name Unknown Organization [facility] Address [address] [place] [address] Phone [phone] Care Team Providers Care Machine Heel Seat Fitter Name Role Phone Dru Fritz MD Primary Care Provider [phone] [phone] Reason for Visit * Reason Onset Date Comments Abnormal Lab Results 11/23/2023 PSA Encounter Details Date Type Department Care Team (Late st Contact Info) Description 11/23/2023 Telephone Hematology/Oncology [facility] [place] [address] [place] [phone] Elio Queen MD [address] [facility] [address] Abnormal Lab Results (PSA) Allergies Active Allergy Reactions Criticality Noted Date Comments Amoxicillin-Pot Clavulanate 05/17/20 22 Dizziness and confused documented as of this encounter (statuses as of 11/23/2023) Medications Medication Sig Dispensed Refills Start Date End Date Status [employer] SYSTEM W/DEVICE KITIndications:DM type 2, goal [...] as of this encounter (statuses as of 11/23/2023) Active Problems Problem Noted Date Diagnosed Date [...] as of this encounter (statuses as of 11/23/2023) Resolved Problems Problem Noted Date Diagnosed Date [...] as of this encounter (statuses as of 11/23/2023) Immunizations No known immunizationsdocumented as of this [...] Telephone Encounter - Ángel Thompson RN - 11/23/2023 3:00 PM EST Pt calling regards to patients recent PSA results. Discussed in minor detail with the patientswife Brittaney who is concerned. Advised her that Dr. Queen will review the lab result and discuss further plan of care going forward with the patient and her on . She is ok with this plan. She states patient is feeling better today after hydration yesterday, he ate dinner yesterday and has been feeling better since this morning. Dr. Queen- JEREMIAH regarding PSA documented in this encounter Plan of Treatment Upcoming Encounters Date Type Department Care Team (Late st Contact Info) Description 11/28/2023 9:00 AM EST Laboratory Laboratory [address] [place] [address] [place], [facility] [address] [place] [address] 11/29/2023 8:45 AM EST Office Visit Hematology/Oncology [facility] [place] [address] [place] [phone] Elio Queen MD [address] [place] [address] 11/29/2023 9:15 AM EST Hem/Onc Treatment Hematology/Oncology Treatment, [place] [address] [place] [address] Saritha, Chair 9 Hem Onc [facility] [address] [place] [address] 12/26/2023 2:40 PM EDT Office Visit Family Practice [facility] [place] [address] Dru Fritz MD 132 [facility] [place] [address] 05/20/2024 2:15 PM EDT Office Visit Urology, [facility] 132 [facility] [place] [address] Isaías [facility]ak MD [facility] [address] [place] [phone] Health Maintenance Due Date Last Done Comments DISCUSS TOBACCO CESSATION (REFER TO SMARTSET #7532) 1960 COVID-19 Vaccine (#1) 1964 Pneumococcal Vaccine: [...] Additional history exists CKD PHOS USE SMARTSET 72323 10/10/202410/01, 09/10/2023, 08/14/2023, Additional history exists CKD HGB USE SMARTSET 77305 11/22/202411/22, 11/22/2023, 10/31/2023, Additional history exists GARDASIL-HPV IMMUNIZATION SERIES Aged Out No longer eligible based on patient's age to complete this topic Hepatitis B Aged Out No longer eligi ble based on patient's age to complete this topic MENINGOCOCCAL (MENACTRA/MENVEO) Aged Out No longer eligible based on patient's age to complete this topic documented as of this encounter Medical Devices Implanted Type Area Bullet Swaging Machine Operator Device Identifier Shelf Expiration Date Model / Serial / Lot Stent Trnscarotid Enroute 7x40 - [id number] Implanted:Qty: 1 on 01/25/2021 by Zeinab Robert MD at [facility] Left: [facility] [id number] 05/31/2023 SR-0740-C S / / [id number] documented as of this encounter Advance Directives Latest Code Status on File Code Status Date Activated Date Inactivated Comments Full Code 01/25/2021 10:53 AM 01/26/2021 1:19 PM This order reflects the patients wishes and were consensually agreed upon. Care Teams Machine Heel Seat Fitter Relationship Specialty Start Date End Date Dru Fritz MD [address] [place] [address] PCP - General Family Medicine 01/24/21 documented as of this encounter
--- OUTSIDE RECORDS SUMMARY | 2024-01-12 09:06 | External Medical Summary | Summary of Care ---
Author Name Unknown Organization [facility] Address [address] [facility] [place] [address] Phone [phone] Care Team Providers Care Farm Rancher Name Role Phone Dru Fritz MD Primary Care Provider [phone] [phone] Reason for Visit * Reason Onset Date Comments Advice 11/26/2023 Encounter Details Date Type Department Care Team (Late st Contact Info) Description 11/26/2023 Telephone Hematology/Oncology [facility] [place] 200 [facility] [place] [phone] Elio Queen MD 200 [facility] [address] Advice Allergies Active Allergy Reactions Criticality Noted Date Comments Amoxicillin-Pot Clavulanate 05/17/20 22 Dizziness and confused documented as of this encounter (statuses as of 11/26/2023) Medications Medication Sig Dispensed Refills Start Date End Date Status Ene[employer] SYSTEM W/DEVICE KITIndications:DM type 2, goal A1c [...] Rad/Onc. Maybe nuclear medicine does? JYOTI Contreras [facility] Rad/Onc " * Telephone Encounter - Ángel Thompson RN - 11/26/2023 12:[address] Queen- would like to refer patient for Pluvicto RT treatments as he feels he would be a good candidate for this. [facility] Rad Onc- Do you do these types of infusions? documented in this encounter Plan of Treatment Upcoming Encounters Date Type Department Care Team (Late st Contact Info) Description 11/28/2023 9:00 AM EST Laboratory Laboratory [address] [place] [address] [place] [address] 11/29/2023 8:45 AM EST Office Visit Hematology/Oncology [facility] [address] [place] [address] Elio Queen MD [address] [place] [address] 11/29/2023 9:15 AM EST Hem/Onc Treatment Hematology/Oncology Treatment, [place] [address] [place] [address] Saritha, Chair 9 Hem Onc [facility] 200 [facility] [place] [address] 12/26/2023 2:40 PM EDT Office Visit Family Practice [facility] 132 [facility] [place] [address] Dru Fritz MD 132 [facility] [place] [address] 05/20/2024 2:15 PM EDT Office Visit Urology, [facility] 132 [facility] [place] [address] Isaías Novak MD 27 [facility] [address] [place] [phone] Health Maintenance Due Date Last Done Comments DISCUSS TOBACCO CESSATION (REFER TO SMARTSET #8471) 1960 COVID-19 Vaccine (#1) 1965 Pneumococcal Vaccine: [...] Additional history exists CKD PHOS USE SMARTSET 57969 10/10/202410/01, 09/10/2023, 08/14/2023, Additional history exists CKD HGB USE SMARTSET 09189 11/22/202411/22, 11/22/2023, 10/31/2023, Additional history exists GARDASIL-HPV IMMUNIZATION SERIES Aged Out No longer eligible based on patient's age to complete this topic Hepatitis B Aged Out No longer eligi ble based on patient's age to complete this topic MENINGOCOCCAL (MENACTRA/MENVEO) Aged Out No longer eligible based on patient's age to complete this topic documented as of this encounter Medical Devices Implanted Type Area Community Development Coordinator Device Identifier Shelf Expiration Date Model / Serial / Lot Stent Trnscarotid Enroute 7x40 - [id number] Implanted:Qty: 1 on 01/25/2021 by Zeinab Robert MD at [facility] Left: [facility] [id number] 05/31/2023 SR-0740-C S / / [id number] documented as of this encounter Advance Directives Latest Code Status on File Code Status Date Activated Date Inactivated Comments Full Code 01/25/2021 10:53 AM 01/26/2021 1:19 PM This order reflects the patients wishes and were consensually agreed upon. Care Teams Farm Rancher Relationship Specialty Start Date End Date Dru Fritz MD [address] [place] [address] PCP - General Family Medicine 01/24/21 documented as of this encounter
--- OUTSIDE RECORDS SUMMARY | 2024-01-12 09:06 | External Medical Summary | Summary of Care ---
Author Name Unknown Organization [facility] Address [address] [place] [address] Phone [phone] Care Team Providers Care Crystal Slicer Name Role Phone Dru Fritz MD Primary Care Provider [phone] Reason for Visit * Reason Comments Medication Administration Udencya * Episode Based Medications (Routine) - Authorized Specialty Diagnoses / Procedures Referred By Contac t Referred To Contact Diagnoses Encounter for antineoplastic chemotherapy Prostate cancer metastatic to multiple sites (HCC) Malignant neoplasm metastatic to bone (HCC) Procedures AL INJECTION, UDENYCA 0.5 MG AL DOCETAXEL INJECTION Elio Queen MD [address] [place] [address] Anc Hem/Onc Valentín [place] DEPT CLOSED - 08/14/23 [address] [place] [address] Referral ID Status Reason Start Date Expiration Date V isits Requested Visits Authorized [id number] Authorized 2023 02/20/2024 999 [id number] Encounter Details Date Type Department Care Team (Latest Contact Info) Description 10/12/2023 2:00 PM EST Immunization/ Injection Hematology/Oncology Treatment, [place] [address] [place] [address] Nurse, Med 4 [address] [place] [address] Encounter for antineoplastic chemotherapy*; Prostate cancer metastatic to multiple sites (HCC); Malignant neoplasm metastatic to bone (HCC) Allergies Active Allergy Reactions Criticality Noted Date Comments Amoxicillin-Pot Clavulanate 05/17/20 22 Dizziness and confused documented as of this encounter (statuses as of 11/24/2023) Medications Medication Sig Dispensed Refills Start Date End Date Status Scalado SYSTEM W/DEVICE KITIndications:D M type 2, goal A1c below 7 Use up to four times a day as directed 1 Kit 0 4 Active Aspirin 81 MG TBEC Take 1 Tablet by mouth in the morning. 0 Active sildenafil (REVATIO) 20 MG Tablet Take 3 tablets by mouth 1 hour prior to sexual activity 30 Tab 5 8 Active Blood Glucose Monitoring Suppl (Kalypto Medical[employer]CH VERIO) w/Device KIT Use up to 4 [...] 90 Tablet 2 3 08/26/20 24 Active linaGLIPtin 5 MG Oral Tablet (Tradjenta)Indic ations:Type 2 diabetes mellitus with diabetic neuropathy, without long-term current use of insulin (HCC) TAKE ONE TABLET BY MOUTH EVERY MORNING 90 Tablet 0 3 09/09/20 24 Active Ondansetron HCl 8 MG Oral [...] 0 3 Active Self-Cath Coude Tip #14 comoran. Use every 4-6 hours and as needed 30 Each 5 1 11/14/19 24 Discontinued Xtandi 40 MG Oral Capsule (Enzalutamide)In dications:Prosta te cancer metastatic to multiple sites (HCC) Take 4 Capsules by mouth in the morning. 120 Capsule 5 3 11/01/19 24 Discontinued(Me dication/Dose Changed) traMADol HCl 50 MG Oral Tablet (Ultram)Indicati ons:Malignant neoplasm metastatic to bone (HCC) Take 2 Tablets by mouth 3 times a day as needed for Pain, Moderate. 180 Tablet 0 4 11/02/19 Discontinued(Re fill) documented as of this encounter (statuses as of 11/24/2023) Active Problems Problem Noted Date Diagnosed Date [...] as of this encounter (statuses as of 11/24/2023) Resolved Problems Problem Noted Date Diagnosed Date [...] as of this encounter (statuses as of 11/24/2023) Immunizations No known immunizationsdocumented as of this [...] Nursing Notes * Tash Mcintyre LPN - 10/12/2023 2:14 PM EST Pt arrived for Udencya injection. Administered in SIENA. Pt tolerated well. Discharged in stable condition. documented in this encounter Plan of Treatment Upcoming Encounters Date Type Department Care Team (Late st Contact Info) Description 11/28/2023 9:00 AM EST Laboratory Laboratory [address] [place] [address] [place] [address] 11/29/2023 8:45 AM EST Office Visit Hematology/Oncology [address] [place] [address] Elio Queen MD 200 [facility] [place] [address] 11/29/2023 9:15 AM EST Hem/Onc Treatment Hematology/Oncology Treatment, [place] [address] [place], [place] [phone] Saritha, Chair 9 Hem Onc [facility] 200 [facility] [place] [address] 12/26/2023 2:40 PM EDT Office Visit [facility] [address] [place] [address] Dru Fritz MD [address] [place] [address] 05/20/2024 2:15 PM EDT Office Visit Urology, [facility] [address] [place] [address] Isaías Novak MD [address] [place] [address] [place] [address] Health Maintenance Due Date Last Done Comments DISCUSS TOBACCO CESSATION (REFER TO SMARTSET #7912) 1960 COVID-19 Vaccine (#1) 1964 Pneumococcal Vaccine: [...] Additional history exists CKD PHOS USE SMARTSET 63408 10/10/202410/01, 09/10/2023, 08/14/2023, Additional history exists CKD HGB USE SMARTSET 48713 11/22/202411/22, 11/22/2023, 10/31/2023, Additional history exists GARDASIL-HPV IMMUNIZATION SERIES Aged Out No longer eligible based on patient's age to complete this topic Hepatitis B Aged Out No longer eligi ble based on patient's age to complete this topic MENINGOCOCCAL (MENACTRA/MENVEO) Aged Out No longer eligible based on patient's age to complete this topic documented as of this encounter Medical Devices Implanted Type Area Shot Peening Operator Device Identifier Shelf Expiration Date Model / Serial / Lot Stent Trnscarotid Enroute 7x40 - [id number] Implanted:Qty: 1 on 01/25/2021 by Zeinab Robert MD at OR [facility] Left: [facility] [id number] 05/31/2023 SR-0740-C S / / [id number] documented as of this encounter Visit Diagnoses [...] 6 mg 6 mg, Subcutaneous, ONCE, On Sun10/12/23 at 1445, For 1 dose Given 10/12/2023 2:11 PM EST 6 mg Arm L eft Upper documented in this encounter Advance Directives Latest Code Status on File Code Status Date Activated Date Inactivated Comments Full Code 01/25/2021 10:53 AM 01/26/2021 1:19 PM This order reflects the patients wishes and were consensually agreed upon. Care Teams Crystal Slicer Relationship Specialty Start Date End Date Dru Fritz MD [address] [place] [address] PCP - General Family Medicine 01/24/21 documented as of this encounter
--- OUTSIDE RECORDS SUMMARY | 2024-01-12 09:06 | External Medical Summary | Summary of Care ---
Author Name Unknown Organization [facility] Address [address] [place] [address] Phone [phone] Care Team Providers Care Marine Architect Name Role Phone Dru Fritz MD Primary Care Provider [phone] Reason for Visit * Reason Comments Chemotherapy Taxotere Medication Administration Xgeva * Episode Based Medications (Routine) - Authorized Specialty Diagnoses / Procedures Referred By Contjanene t Referred To Contact Diagnoses Encounter for antineoplastic chemotherapy Prostate cancer metastatic to multiple sites (HCC) Malignant neoplasm metastatic to bone (HCC) Procedures OR INJECTION, UDENYCA 0.5 MG OR DOCETAXEL INJECTION Elio Queen MD [address] [place] [address] Anc Hem/Onc Valentín Melara DEPT CLOSED - 08/14/23 200 [facility] [place] [address] Referral ID Status Reason Start Date Expiration Date V isits Requested Visits Authorized [id number] Authorized 2023 02/20/2024 999 999 Encounter Details Date Type Department Care Team (Latest Contact Info) Description 10/11/2023 9:45 AM EST Hem/Onc Treatment Hematology/Oncolog y Treatment, [place] [address] [place] [address] Saritha, Chair 4 Hem Onc [address] [place] [address] Encounter for antineoplastic chemotherapy*; Prostate cancer metastatic to multiple sites (HCC); Malignant neoplasm metastatic to bone (HCC) Allergies Active Allergy Reactions Criticality Noted Date Comments Amoxicillin-Pot Clavulanate 05/17/20 22 Dizziness and confused documented as of this encounter (statuses as of 11/24/2023) Medications Medication Sig Dispensed Refills Start Date End Date Status [employer] SYSTEM W/DEVICE KITIndications:D M type 2, goal A1c below 7 Use up to four times a day as directed 1 Kit 0 4 Active Aspirin 81 MG TBEC Take 1 Tablet by mouth in the morning. 0 Active sildenafil (REVATIO) 20 MG Tablet Take 3 tablets by mouth 1 hour prior to sexual activity 30 Tab 5 8 Active Blood Glucose Monitoring Suppl ([employer] VERIO) w/Device KIT Use up to 4 [...] without long-term current use of insulin ([facility]) TAKE ONE TABLET BY MOUTH DAILY [...] 0 3 Active Self-Cath Coude Tip #14 palestinian. Use every 4-6 hours and as needed [...] Nursing Notes * Eugenie Jackson RN - 10/11/2023 3:07 PM EST Functional status at today's visit: Restricted in physically strenuous activity but ambulatory and able to carry out work on a light orsedentary nature, e.g. light house work, office work The drug name, dose, infusion volume, rate and route of administration, expiration date and time, appearance and physical integrity of the drug and rate set on the pump and sequencing of drug administration (as applicable) were verified by me and second sign-in RN. Patient was assessed for symptoms or adverse side effects during treatment. Pt completed treatment without issues. IV removed. Xgeva administered per order; pt tolerated well.Per pt's spouse, pt continues to receive Lupron at Urology clinic. Goals: Pt will remain free from injury. Possible barriers to meeting goals: ambulation with IV pole Stability of the patient: Moderately stable - low risk of patient condition declining or worsening Summary regarding today's goals: Met: Pt remained free from injury during treatment today. Discharged in stable condition. JF assisted. * Eugenie Jackson RN - 10/11/2023 10:25 AM EST Chair 5, Taxotere/Xgeva. Pt seen by Dr. Queen; refer to OV notes. Pt is scheduled for Xgeva today, 4 weeks since last dose. Per Dr. Queen, okay to proceed with Xgeva today; Xgeva will be scheduled Q 6 weeks going forward to align with Taxotere treatment. Pt denies dental issues/pain. PIV established; NSS Infusing. Safety and Risk for Injury Patient will remain free from injury. Ensure appropriate safety devices are available. Provide and maintain safe environment. documented in this encounter Plan of Treatment Upcoming Encounters Date Type Department Care Team (Late st Contact Info) Description 11/28/2023 9:00 AM EST Laboratory Laboratory [address] [place] [phone] [address] [place] [address] 11/29/2023 8:45 AM EST Office Visit Hematology/Oncology [facility] 200 [facility] [place] [address] Elio Queen MD [address] [place] [address] 11/29/2023 9:15 AM EST Hem/Onc Treatment Hematology/Oncology Treatment, [place] [address] [place] [phone] Saritha, Chair 9 Hem Onc [facility] 200 [facility] [place] [address] 12/26/2023 2:40 PM EDT Office Visit Family Practice [facility] [address] [place] [address] Dru Fritz MD [address] [place] [address] 05/20/2024 2:15 PM EDT Office Visit Urology, [facility] [address] [place] [address] Isaías Novak MD 27 [facility] [address] [place] [address] Health Maintenance Due [...] Additional history exists CKD PHOS USE SMARTSET 17868 10/10/202410/01, 09/10/2023, 08/14/2023, Additional history exists CKD HGB USE SMARTSET 63774 11/22/202411/22, 11/22/2023, 10/31/2023, Additional history exists GARDASIL-HPV IMMUNIZATION SERIES Aged Out No longer eligible based on patient's age to complete this topic Hepatitis B Aged Out No longer eligi ble based on patient's age to complete this topic MENINGOCOCCAL (MENACTRA/MENVEO) Aged Out No longer eligible based on patient's age to complete this topic documented as of this encounter Medical Devices Implanted Type Area Validation Manager Device Identifier Shelf Expiration Date Model / Serial / Lot Stent Trnscarotid Enroute 7x40 - [id number] Implanted:Qty: 1 on 01/25/2021 by Zeinab Robert MD at [facility] Left: [facility] [id number] 05/31/2023 SR-0740-C S / / [id number] documented as of this encounter Visit Diagnoses Diagnosis Encounter for antineoplastic chemotherapy- Primary Prostate cancer metastatic to multiple sites (HCC) Malignant neoplasm of prostate Malignant neoplasm metastatic to bone (HCC) Secondary malignant neoplasm of bone and bone marrow documented in this encounter Administered Medications Inactive Administered Medications - up to 3 most recent administrations Medication Order MAR Action Action Date Dose Rate Site Denosumab (Xgeva) subcut inj 120 mg 120 mg, Subcutaneous, ONCE, On Chantel 10/11/23 at 1115, For 1 dose Given 10/11/2023 10:45 AM EST 120 mg Arm Left Upper dexAMETHasone (Decadron) tab 8 mg 8 mg, Oral, ONCE, On Chantel 10/11/23 at 1045, For 1 dose Given 10/11/2023 10:13 AM EST 8 mg DOCEtaxel (Taxotere) 140 mg in NSS 250 mL infusion 140 mg, IV Piggyback, at 250 mL/hr Administer over 60 Minutes, ONCE, 1 dose, On Chantel 10/11/23 at 1115 Start Infusion 10/11/2023 10:34 AM EST 140 mg 250 mL/hr NSS infusion Intravenous, at 50 mL/hr, PRN, Starting on Chantel 10/11/23 at 1045, Until Chantel 10/11/23 at 1915, Maintenance line Start Infusion 10/11/2023 9:51 AM EST 50 mL/hr ondansetron (Zofran) tab 8 mg 8 mg, Oral, ONCE, On Chantle 10/11/23 at 1045, For 1 dose, Give 30 minutes prior to chemotherapy. Given 10/11/2023 10:10 AM EST 8 mg documented in this encounter Advance Directives Latest Code Status on File Code Status Date Activated Date Inactivated Comments Full Code 01/25/2021 10:53 AM 01/26/2021 1:19 PM This order reflects the patients wishes and were consensually agreed upon. Care Teams Marine Architect Relationship Specialty Start Date End Date Dru Fritz MD 132 [facility] [place] [address] PCP - General Family Medicine 01/24/21 documented as of this encounter
--- OUTSIDE RECORDS SUMMARY | 2024-01-12 09:06 | External Medical Summary | Summary of Care ---
Author Name Unknown Organization [facility] Address [address] [place] [address] Phone [phone] Care Team Providers Care Physical Chemist Name Role Phone Dru Fritz MD Primary Care Provider [phone] Reason for Visit * Reason Comments Chemotherapy Taxotere Medication Administration Xgeva * Episode Based Medications (Routine) - Authorized Specialty Diagnoses / Procedures Referred By Contjanene t Referred To Contact Diagnoses Encounter for antineoplastic chemotherapy Prostate cancer metastatic to multiple sites (HCC) Malignant neoplasm metastatic to bone (HCC) Procedures SD INJECTION, UDENYCA 0.5 MG SD DOCETAXEL INJECTION Elio Queen MD [address] [place] [address] Anc Hem/Onc Valentín Melara DEPT CLOSED - 08/14/23 200 [facility] [place] [address] Referral ID Status Reason Start Date Expiration Date V isits Requested Visits Authorized [id number] Authorized 2023 02/20/2024 999 999 Encounter Details Date Type Department Care Team (Latest Contact Info) Description 10/11/2023 9:45 AM EST Hem/Onc Treatment Hematology/Oncolog y Treatment, [place] [address] [place] [address] Saritha, Chair 4 Hem Onc [address] [place] [address] [address] Encounter for antineoplastic chemotherapy*; Prostate cancer metastatic to multiple sites (HCC); Malignant neoplasm metastatic to bone (HCC) Allergies Active Allergy Reactions Criticality Noted Date Comments Amoxicillin-Pot Clavulanate 05/17/20 22 Dizziness and confused documented as of this encounter (statuses as of 11/24/2023) Medications Medication Sig Dispensed Refills Start Date End Date Status [employer]Tonic SYSTEM W/DEVICE KITIndications:D M type 2, goal A1c below 7 Use up to four times a day as directed 1 Kit 0 4 Active Aspirin 81 MG TBEC Take 1 Tablet by mouth in the morning. 0 Active sildenafil (REVATIO) 20 MG Tablet Take 3 tablets by mouth 1 hour prior to sexual activity 30 Tab 5 8 Active Blood Glucose Monitoring Suppl ([employer] VERIO) w/Device KIT Use up to 4 [...] neuropathy, without long-term current use of insulin ([facility]) TAKE ONE TABLET BY MOUTH DAILY [...] 0 3 Active Self-Cath Coude Tip #14 kittitian. Use every 4-6 hours and as needed [...] Description 11/28/2023 9:00 AM EST Laboratory Laboratory [address] [place] [phone] [address] [place] [address] 11/29/2023 8:45 AM EST Office Visit Hematology/Oncology [facility] 200 [facility] [place] [address] Elio Queen MD [address] [place] [address] 11/29/2023 9:15 AM EST Hem/Onc Treatment Hematology/Oncology Treatment, [place] [address] [place] [phone] Saritha, Chair 9 Hem Onc [facility] 200 [facility] [place] [address] 12/26/2023 2:40 PM EDT Office Visit Family Practice [facility] [address] [place] [address] Dru Fritz MD [address] [place] [address] 05/20/2024 2:15 PM EDT Office Visit Urology, [facility] [address] [place] [address] Isaías Novak MD 27 [facility] [address] [place] [address] Health Maintenance Due [...] Additional history exists CKD PHOS USE SMARTSET 74747 10/10/202410/01, 09/10/2023, 08/14/2023, Additional history exists CKD HGB USE SMARTSET 86996 11/22/202411/22, 11/22/2023, 10/31/2023, Additional history exists GARDASIL-HPV IMMUNIZATION SERIES Aged Out No longer eligible based on patient's age to complete this topic Hepatitis B Aged Out No longer eligi ble based on patient's age to complete this topic MENINGOCOCCAL (MENACTRA/MENVEO) Aged Out No longer eligible based on patient's age to complete this topic documented as of this encounter Medical Devices Implanted Type Area Roll Finisher Device Identifier Shelf Expiration Date Model / Serial / Lot Stent Trnscarotid Enroute 7x40 - [id number] Implanted:Qty: 1 on 01/25/2021 by Zeinab Robert MD at [facility] Left: [facility] [id number] 05/31/2023 SR-0740-C S / / [id number] documented as of this encounter Visit Diagnoses [...] On Chantel 10/11/23 at 1045, For 1 dose, Give 30 minutes prior to chemotherapy. Given 10/11/2023 10:10 AM EST 8 mg documented in this encounter Advance Directives Latest Code Status on File Code Status Date Activated Date Inactivated Comments Full Code 01/25/2021 10:53 AM 01/26/2021 1:19 PM This order reflects the patients wishes and were consensually agreed upon. Care Teams Physical Chemist Relationship Specialty Start Date End Date Dru Fritz MD 132 [facility] [place] [address] PCP - General Family Medicine 01/24/21 documented as of this encounter
--- OUTSIDE RECORDS SUMMARY | 2024-01-12 09:06 | External Medical Summary | Summary of Care ---
Author Name Unknown Organization [facility] Address [address] [place] [address] Phone [phone] Care Team Providers Care Analyzer Sales Name Role Phone Dru Fritz MD Primary Care Provider [phone] Reason for Visit * Reason Comments Chemotherapy Taxotere Medication Administration Xgeva * Episode Based Medications (Routine) - Authorized Specialty Diagnoses / Procedures Referred By Contjanene t Referred To Contact Diagnoses Encounter for antineoplastic chemotherapy Prostate cancer metastatic to multiple sites (HCC) Malignant neoplasm metastatic to bone (HCC) Procedures ME INJECTION, UDENYCA 0.5 MG ME DOCETAXEL INJECTION Elio Queen MD [address] [place] [address] Anc Hem/Onc Valentín Melara DEPT CLOSED - 08/14/23 200 [facility] [place] [address] Referral ID Status Reason Start Date Expiration Date V isits Requested Visits Authorized [id number] Authorized 2023 02/20/2024 999 999 Encounter Details Date Type Department Care Team (Latest Contact Info) Description 10/11/2023 9:45 AM EST Hem/Onc Treatment Hematology/Oncolog y Treatment, [place] [address] [place] [address] Saritha, Chair 4 Hem Onc [address] [place] [address] Encounter for antineoplastic chemotherapy*; Prostate cancer metastatic to multiple sites (HCC); Malignant neoplasm metastatic to bone (HCC) Allergies Active Allergy Reactions Criticality Noted Date Comments Amoxicillin-Pot Clavulanate 05/17/20 22 Dizziness and confused documented as of this encounter (statuses as of 11/24/2023) Medications Medication Sig Dispensed Refills Start Date End Date Status adaffix SYSTEM W/DEVICE KITIndications:D M type 2, goal A1c below 7 Use up to four times a day as directed 1 Kit 0 4 Active Aspirin 81 MG TBEC Take 1 Tablet by mouth in the morning. 0 Active sildenafil (REVATIO) 20 MG Tablet Take 3 tablets by mouth 1 hour prior to sexual activity 30 Tab 5 8 Active Blood Glucose Monitoring Suppl ([employer] VERIO) w/Device KIT Use up to 4 [...] 0 3 Active Self-Cath Coude Tip #14 niuean. Use every 4-6 hours and as needed [...] Description 11/28/2023 9:00 AM EST Laboratory Laboratory [address] [place] [phone] [address] [place] [address] 11/29/2023 8:45 AM EST Office Visit Hematology/Oncology [facility] 200 [facility] [place] [address] Elio Queen MD [address] [place] [address] 11/29/2023 9:15 AM EST Hem/Onc Treatment Hematology/Oncology Treatment, [place] [address] [place] [phone] Saritha, Chair 9 Hem Onc [facility] 200 [facility] [place] [address] 12/26/2023 2:40 PM EDT Office Visit Family Practice [facility] [address] [place] [address] Dru Fritz MD [address] [place] [address] 05/20/2024 2:15 PM EDT Office Visit Urology, [facility] [address] [place] [address] Isaías Novak MD 27 [facility] [address] [place] [address] Health [...] Additional history exists CKD PHOS USE SMARTSET 02992 10/10/202410/01, 09/10/2023, 08/14/2023, Additional history exists CKD HGB USE SMARTSET 99730 11/22/202411/22, 11/22/2023, 10/31/2023, Additional history exists GARDASIL-HPV IMMUNIZATION SERIES Aged Out No longer eligible based on patient's age to complete this topic Hepatitis B Aged Out No longer eligi ble based on patient's age to complete this topic MENINGOCOCCAL (MENACTRA/MENVEO) Aged Out No longer eligible based on patient's age to complete this topic documented as of this encounter Medical Devices Implanted Type Area Professor Of Chemistry Device Identifier Shelf Expiration Date Model / Serial / Lot Stent Trnscarotid Enroute 7x40 - [id number] Implanted:Qty: 1 on 01/25/2021 by Zeinab Robert MD at [facility] Left: [facility] [id number] 05/31/2023 SR-0740-C S / / [id number] documented as of this encounter Visit Diagnoses [...] and were consensually agreed upon. Care Teams Analyzer Sales Relationship Specialty Start Date End Date Dru Fritz MD 132 [facility] [place] [address] PCP - General Family Medicine 01/24/21 documented as of this encounter
--- OUTSIDE RECORDS SUMMARY | 2024-01-12 09:07 | External Medical Summary ---
Author Name Unknown Address Unknown Organization K01:[facility] - [address] [place] [address] Laboratory Report Ordering Provider Test Date Status PATRICE QUINONES 11/22/2023 13:49:09 Final Observation Date Value Abnormality Reference (Units ) Status PSA 11/22/2023 13:49:09 147.40 Above high normal <4 .10 (ng/mL) Final Performing Location [facility] - [address] [place] [address]
--- OUTSIDE RECORDS SUMMARY | 2024-01-12 09:07 | External Medical Summary ---
Author Name Unknown Address Unknown Organization [id number] [place] [place] [address] Laboratory Report Ordering Provider Test Date Status PATRICE QUINONES 11/22/2023 13:49:09 Final Observation Date Value Abnormality Reference (Units ) Status SYNC LEUKOCYTES IN BLOOD BY AUTOMATED COUNT 11/22/2023 13:49:09 15.46 Above high normal 4.00-10.80 (K/uL) Final Neutrophils/100 leukocytes in Blood by Manual count 11/22/2023 13:49:09 75.0 40.0-75.0 (%) Final Lymphocytes/100 leukocytes in Blood by Manual count 11/22/2023 13:49:09 19.0 18.0-42.0 (%) Final Monocytes/100 leukocytes in Blood by Manual count 11/22/2023 13:49:09 6.0 1.0-11.0 (%) Final Neutrophils [#/volume] in Blood by Manual count 11/22/2023 13:49:09 11.60 Above high normal 1.80-7.70 (K/uL) Final Lymphocytes [#/volume] in Blood by Manual count 11/22/2023 13:49:09 2.94 1.00-4.80 (K/uL) Final Monocytes [#/volume] in Blood by Manual count 11/22/2023 13:49:09 0.93 0.00-1.10 (K/uL) Final Nucleated erythrocytes/100 leukocytes [Ratio] in Blood by Automated count 11/22/2023 13:49:09 Final Performing Location [facility] [place] [place] [address]
--- OUTSIDE RECORDS SUMMARY | 2024-01-12 09:07 | External Medical Summary | Summary of Care ---
Author Name Unknown Organization [facility] Address [address] [place] [address] Phone [phone] Care Team Providers Care Web Architect Name Role Phone Dru Fritz MD Primary Care Provider +1 [phone] Reason for Visit * Reason Onset Date Comments Advice 11/22/2023 Queen Encounter Details Date Type Department Care Team (Late st Contact Info) Description 11/22/2023 Telephone Access Center, [place] [address] [facility] *DO NOT REMOVE THIS DEPARTMENT* [place] [address] Services, Scheduling [address] [place] [address] Advice (Bret ) Allergies Active Allergy Reactions Criticality Noted Date Comments Amoxicillin-Pot Clavulanate 05/17/20 22 Dizziness and confused documented as of this encounter (statuses as of 11/22/2023) Medications Medication Sig Dispensed Refills Start Date End Date Status WeYAP SYSTEM W/DEVICE KITIndications:DM type 2, goal A1c [...] as of this encounter (statuses as of 11/22/2023) Active Problems Problem Noted Date Diagnosed Date [...] as of this encounter (statuses as of 11/22/2023) Resolved Problems Problem Noted Date Diagnosed Date [...] as of this encounter (statuses as of 11/22/2023) Immunizations No known immunizationsdocumented as of this [...] encounter Miscellaneous Notes * Telephone Encounter - Maegan Rowell LPN - 11/22/2023 12:28 PM EST Appts created * Telephone Encounter - Ángel Thompson RN - 11/22/2023 12:09 PM EST Spoke to Dr. Queen- ok to bring patient in for fluids/labs. Called patient and his . Confirmed that patient is feeling dehydrated, peeing more than intaking but intake has been minor and his pee is becoming more yellow. Pt lives 1 hour away, states they can get here by 1:30P. Scheduling- Please add patient on for today for labs "CBCD, CMP" and 2 hour apt "Hydration" (Bret). Pt states he can get here around 1:30-1:45. * Telephone Encounter - Dior Leger LPN - 11/22/2023 11:59 AM EST Patient's contacted urology office for advice. Pet scan was done at [facility]. States that results showed right sided hydroureter without stone. States patient is not eating or drinking, started yesterday after scan. Denies fevers, chills. is concerned for possible dehydration. aware thatDr Novak (urology) is out of office until Sunday, asking that someone from Dr Queen's office reach out to her for advice. Thank you, JYOTI Rader * Telephone Encounter - Ángel Thompson RN - 11/22/2023 11:[address] Queen- PET CT completed yesterday. Please review and call patient. Thank you. Pt is scheduled follow up with Taxotere + Xgeva afterwards. Thank you. * Telephone Encounter - Jojo Gamboa OSA - 11/22/2023 10:54 AM EST Pt calling, states she is worried about the scan results from yesterday, asking for a call back, thinks pt might be dehydrated as well. documented in this encounter Plan of Treatment Upcoming Encounters Date Type Department Care Team (Late st Contact Info) Description 11/22/2023 1:30 PM EST Laboratory Laboratory [facility] [place] [address] [place] [phone] Saritha, Lab [facility] [address] [place] [address] 11/22/2023 2:00 PM EST Nurse Only Hematology/Oncology Treatment, [place] [address] [place] [phone] Saritha, Chair 5 Hem Onc [address] [place] [address] 11/28/2023 9:00 AM EST Laboratory Laboratory [address] [place] [phone] [place], [address] [place] [address] 11/29/2023 8:45 AM EST Office Visit Hematology/Oncology [facility] [place] [address] [place] [phone] Elio Queen MD [address] [place] [address] 11/29/2023 9:15 AM EST Hem/Onc Treatment Hematology/Oncology Treatment, [place] [address] [place] [phone] Saritha, Chair 9 Hem Onc [address] [place] [address] 12/26/2023 2:40 PM EDT Office Visit Family Practice [facility] 132 [facility] [place] [address] Dru Fritz MD 132 [facility] [place] [address] 05/20/2024 2:15 PM EDT Office Visit Urology, [facility] 132 [facility] [place] [address] Isaías Novak MD 27 [facility] [address] [place] [address] Scheduled Orders Name Type Priority Associated Diagnoses Orde r Schedule CBC WITH WBC DIFFERENTIAL Lab STAT Prostate cancer metastatic to multiple sites (HCC) Expected: 11/22/2023, Expires: 11/22/2024 COMPREHENSIVE METABOLIC PANEL Lab Routine Prostate cancer metastatic to multiple sites (HCC) Expected: 11/22/2023, Expires: 11/22/2024 Health Maintenance Due Date Last Done Comments DISCUSS TOBACCO CESSATION (REFER TO SMARTSET #0848) 1959 COVID-19 Vaccine (#1) 1965 Pneumococcal Vaccine: [...] 01/15/2023, 05/01, 02/14/2022, Additional history exists GFR 04/30/2024 10/31/2023, 10/01, 09/19/2023, Additional history exists CKD PHOS USE SMARTSET 88482 10/10/202410/01, 09/10/2023, 08/14/2023, Additional history exists CKD HGB USE SMARTSET 95719 10/31/202410/31, 10/31/2023, 10/10/2023, Additional history exists GARDASIL-HPV IMMUNIZATION SERIES Aged Out No longer eligible based on patient's age to complete this topic Hepatitis B Aged Out No longer eligi ble based on patient's age to complete this topic MENINGOCOCCAL (MENACTRA/MENVEO) Aged Out No longer eligible based on patient's age to complete this topic documented as of this encounter Medical Devices Implanted Type Area Dry Ice Maker Device Identifier Shelf Expiration Date Model / Serial / Lot Stent Trnscarotid Enroute 7x40 - [id number] Implanted:Qty: 1 on 01/25/2021 by Zeinab Robert MD at [facility] Left: Carotid [facility] [id number] 05/31/2023 SR-0740-C S / / [id number] documented as of this encounter Visit Diagnoses Diagnosis Prostate cancer metastatic to multiple sites (HCC)- Primary Malignant neoplasm of prostate documented in this encounter Advance Directives Latest Code Status on File Code Status Date Activated Date Inactivated Comments Full Code 01/25/2021 10:53 AM 01/26/2021 1:19 PM This order reflects the patients wishes and were consensually agreed upon. Care Teams Web Architect Relationship Specialty Start Date End Date Dru Fritz MD [address] [place] [address] PCP - General Family Medicine 01/24/21 documented as of this encounter
--- OUTSIDE RECORDS SUMMARY | 2024-01-12 09:07 | External Medical Summary ---
Author Name Unknown Address Unknown Organization [facility] [place]ín [place] [address] Laboratory Report Ordering Provider Test Date Status PATRICE QUINONES 11/22/2023 13:49:09 Final Observation Date Value Abnormality Reference (Units ) Status WBC, Total 11/22/2023 13:49:09 15.46 Above high normal 4 .00-10.80 (K/uL) Final RBC 11/22/2023 13:49:09 3.51 4.50-5.25 (M/uL) Final Hemoglobin 11/22/2023 13:49:09 11.9 Below low normal 14 .0-16.8 (g/dL) Final HCT 11/22/2023 13:49:09 37.2 Below low normal 40. 0-48.4 (%) Final MCV 11/22/2023 13:49:09 106.0 82.0-99.5 (fL) Final MCH 11/22/2023 13:49:09 33.9 27.0-34.0 (pg) Final MCHC 11/22/2023 13:49:09 32.0 32.0-36.0 (g/dL) Final RDW 11/22/2023 13:49:09 16.1 11.5-15.5 (%) Final Platelets 11/22/2023 13:49:09 270 140-400 (K /uL) Final MPV 11/22/2023 13:49:09 8.3 6.6-11.1 ( fL) Final Performing Location [facility] Valentín [place] [address]
--- OUTSIDE RECORDS SUMMARY | 2024-01-12 09:07 | External Medical Summary ---
Author Name Unknown Address Unknown Organization [facility] [address] [place]ín [place] [address] Laboratory Report Ordering Provider Test Date Status PATRICE QUINONES 11/22/2023 13:49:09 Final Observation Date Value Abnormality Reference (Units ) Status BUN 11/22/2023 13:49:09 12 6-20 (mg/dL) Final Creatinine 11/22/2023 13:49:09 1.1 0.6-1.2 (mg/dL) Final Glomerular filtration rate/1.73 sq M.predicted [Volume Rate/Area] in Serum, Plasma or Blood by Creatinine-based formula (CKD-EPI) 11/22/2023 13:49:09 79 >=60 (mL/min) Final eGFR is calculated based on the CKD-EPI 2020 equation SODIUM 11/22/2023 13:49:09 139 135-146 (m mol/L) Final Potassium 11/22/2023 13:49:09 4.2 3.5-5.1 (m mol/L) Final Cl 11/22/2023 13:49:09 105 98-107 (mm ol/L) Final CO2 11/22/2023 13:49:09 20 Below low normal 22- 32 (mmol/L) Final Anion gap 11/22/2023 13:49:09 14 7-15 (mmol /L) Final Glucose 11/22/2023 13:49:09 121 Above high normal 70 -120 (mg/dL) Final Albumin 11/22/2023 13:49:09 4.2 3.8-5.0 (g /dL) Final AST (Aspartate aminotransferase) 11/22/2023 13:49:09 31 10-50 (U/L) Fin al Alk Phos 11/22/2023 13:49:09 261 Above high normal 35 -130 (U/L) Final Bilirubin, Total 11/22/2023 13:49:09 0.5 <=1 .2 (mg/dL) Final Calcium 11/22/2023 13:49:09 8.9 8.4-10.2 ( mg/dL) Final Protein 11/22/2023 13:49:09 7.3 6.0-8.3 (g /dL) Final ALT (Alanine aminotransferase) 11/22/2023 13:49:09 12 10-50 (U/L) Hilton harrell Performing Location [facility] [address] [place] [address]
--- OUTSIDE RECORDS SUMMARY | 2024-01-12 09:07 | External Medical Summary | Summary of Care ---
Author Name Unknown Organization [facility] Address [address] [place] [address] Phone [phone] Care Team Providers Care Community Support Professional Name Role Phone Dru Fritz MD Primary Care Provider [phone] [phone] Reason for Visit * Reason Comments Outpatient Testing Encounter Details Date Type Department Care Team (Late st Contact Info) Description 11/22/2023 1:30 PM EST Laboratory Laboratory [facility] [address] [place] [phone] [facility] Scenery [address] [place] [address] Prostate cancer metastatic to multiple sites (HCC) Allergies Active Allergy Reactions Criticality Noted Date Comments Amoxicillin-Pot Clavulanate 05/17/20 Dizziness and confused documented as of this encounter (statuses as of 11/22/2023) Medications Medication Sig Dispensed Refills Start Date End Date Status Moodswing SYSTEM W/DEVICE KITIndications:DM type 2, goal A1c [...] 11/28/2023 9:00 AM EST Laboratory Laboratory [address] [place] [phone] [place] [address] 11/29/2023 8:45 AM EST Office Visit Hematology/Oncology [facility] Monika Melara [address] [place] [phone] Elio Queen MD [address] [place] [address] 11/29/2023 9:15 AM EST Hem/Onc Treatment Hematology/Oncology Treatment, [place] [address] [place] [address] [place], Chair 9 Hem Onc [address] [place] [address] 12/26/2023 2:40 PM EDT Office Visit Family Practice [facility] 132 [facility] [place] [address] Dru Fritz MD 132 [facility] [place] [address] 05/20/2024 2:15 PM EDT Office Visit Urology, [facility] [place] [address] Isaías Novak MD [address] [address] [place] [address] Pending Results Name Type Priority Associated Diagnoses Date /Time PSA Lab STAT Prostate cancer metastatic to multiple sites (HCC) 11/22/2023 1:49 PM EST CBC WITH WBC DIFFERENTIAL Lab STAT Prostate cancer metastatic to multiple sites (HCC) 11/22/2023 1:49 PM EST COMPREHENSIVE METABOLIC PANEL Lab Routine Prostate cancer metastatic to multiple sites (HCC) 11/22/2023 1:49 PM EST CBC Lab STAT Prostate cancer metastatic to multiple sites (HCC) 11/22/2023 1:49 PM EST DIFFERENTIAL, AUTOMATED Lab STAT Prostate cancer metastatic to multiple sites (HCC) 11/22/2023 1:49 PM EST Health Maintenance Due Date Last Done [...] Additional history exists CKD PHOS USE SMARTSET 91232 10/10/202410/01, 09/10/2023, 08/14/2023, Additional history exists CKD HGB USE SMARTSET 85234 10/31/202410/31, 10/31/2023, 10/10/2023, Additional history exists GARDASIL-HPV IMMUNIZATION SERIES Aged Out No longer eligible based on patient's age to complete this topic Hepatitis B Aged Out No longer eligi ble based on patient's age to complete this topic MENINGOCOCCAL (MENACTRA/MENVEO) Aged Out No longer eligible based on patient's age to complete this topic documented as of this encounter Medical Devices Implanted Type Area Acidizer Helper Device Identifier Shelf Expiration Date Model / Serial / Lot Stent Trnscarotid Enroute 7x40 - [id number] Implanted:Qty: 1 on 01/25/2021 by Zeinab Robert MD at [facility] Left: [facility] [id number] 05/31/2023 SR-0740-C S / / [id number] documented as of this encounter Visit Diagnoses Diagnosis Prostate cancer metastatic to multiple sites (HCC) Malignant neoplasm of prostate documented in this encounter Advance Directives Latest Code Status on File Code Status Date Activated Date Inactivated Comments Full Code 01/25/2021 10:53 AM 01/26/2021 1:19 PM This order reflects the patients wishes and were consensually agreed upon. Care Teams Community Support Professional Relationship Specialty Start Date End Date Dru Fritz MD [address] [place] [address] PCP - General Family Medicine 01/24/21 documented as of this encounter
--- OUTSIDE RECORDS SUMMARY | 2024-01-12 09:07 | External Medical Summary | Summary of Care ---
Author Name Unknown Organization [facility] Address [address] [place] [address] Phone [phone] Care Team Providers Care Radiagraph Operator Name Role Phone Dru Fritz MD Primary Care Provider [phone] [phone] Reason for Visit * Reason Comments IV Therapy Hydration. Encounter Details Date Type Department Care Team (Late st Contact Info) Description 11/22/2023 2:00 PM EST Nurse Only Hematology/Oncology Treatment, [place] [address] [place] [address] Saritha, Chair [address] [address] IV Therapy (Hydration. ) Allergies Active Allergy Reactions Criticality Noted Date Comments Amoxicillin-Pot Clavulanate 05/17/20 22 Dizziness and confused documented as of this encounter (statuses as of 11/22/2023) Medications Medication Sig Dispensed Refills Start Date End Date Status [employer] SYSTEM W/DEVICE KITIndications:DM type 2, goal A1c [...] Description 11/28/2023 9:00 AM EST Laboratory Laboratory [address] [place] [address] [place], [address] [place] [address] 11/29/2023 8:45 AM EST Office Visit Hematology/Oncology [facility] [address] [place] [phone] Elio Queen MD [address] [place] [address] 11/29/2023 9:15 AM EST Hem/Onc Treatment Hematology/Oncology Treatment, [place] [address] [place] [phone] Saritha, Chair 9 Hem Onc [address] [place] [address] 12/26/2023 2:40 PM EDT Office Visit Family Practice [facility] [address] [place] [address] Dru Fritz MD [address] [place] [address] 05/20/2024 2:15 PM EDT Office Visit Urology, [facility] [address] [place] [address] Isaías Novak MD [address] [facility] [place] [address] [place] [address] Health Maintenance Due Date Last Done Comments DISCUSS TOBACCO CESSATION (REFER TO SMARTSET #2575) 1960 COVID-19 Vaccine (#1) 1965 Pneumococcal Vaccine: [...] Additional history exists CKD PHOS USE SMARTSET 06728 10/10/202410/01, 09/10/2023, 08/14/2023, Additional history exists CKD HGB USE SMARTSET 09324 11/22/202411/22, 11/22/2023, 10/31/2023, Additional history exists GARDASIL-HPV [...] encounter Medical Devices Implanted Type Area Director Transportation Device Identifier Shelf Expiration Date Model / Serial / Lot Stent Trnscarotid Enroute 7x40 - [id number] Implanted:Qty: 1 on 01/25/2021 by Zeinab Robert MD at [facility] Left: [facility] [id number] 05/31/2023 SR-0740-C S / / [id number] documented as of this encounter Visit Diagnoses Diagnosis Malignant neoplasm metastatic to bone (HCC)- Primary Secondary malignant neoplasm of bone and bone marrow Prostate cancer metastatic to multiple sites (HCC) Malignant neoplasm of prostate Dehydration documented in this encounter Administered Medications Active Administered Medications - up to 3 most recent administrations Medication Order MAR Action Action Date Dose Rate Site hEParin 100 UNIT/ML Lock Flush inj 500 Units 500 Units (5 mL), IV Lock, PRN Other, IV Flush, Starting on Chantel 11/22/23 at 1422, Until Sun11/23/23 at 1421, For 24 hours, Do not flush if lock, PICC, or central line not in place; IV infusing or unable to flush. sodium chloride 0.9 % flush central line 10 mL 10 mL, IV Push, PRN Other, IV Flush, Starting on Chantel 11/22/23 at 1422, Until Sun11/23/23 at 1421, For 24 hours, Do not flush if [...] and were consensually agreed upon. Care Teams Radiagraph Operator Relationship Specialty Start Date End Date Dru Fritz MD [address] [place] [address] PCP - General Family Medicine 01/24/21 documented as of this encounter
--- OUTSIDE RECORDS SUMMARY | 2024-01-12 09:07 | External Medical Summary | Summary of Care ---
Author Name Unknown Organization [facility] Address [address] [facility] [place] [address] Phone [phone] Care Team Providers Care Care Center Manager Name Role Phone Dru Fritz MD Primary Care Provider [phone] [phone] Encounter Details Date Type Department Care Team (Late st Contact Info) Description 11/23/2023 Orders Only Family Practice [facility] [address] [place] [address] Dru Fritz MD [address] [place] [address] Malignant neoplasm metastatic to bone (HCC); Prostate cancer (HCC) Allergies Active Allergy Reactions Criticality Noted Date Comments Amoxicillin-Pot Clavulanate 05/17/20 22 Dizziness and confused documented as of this encounter (statuses as of 11/23/2023) Medications Medication Sig Dispensed Refills Start Date End Date Status Daylight Digital SYSTEM W/DEVICE KITIndications:DM type 2, goal A1c [...] Description 11/28/2023 9:00 AM EST Laboratory Laboratory [address] [place] [address] [place] [address] 11/29/2023 8:45 AM EST Office Visit Hematology/Oncology [facility] Saritha [place] [address] [place] [phone] Elio Queen MD [address] [place] [address] 11/29/2023 9:15 AM EST Hem/Onc Treatment Hematology/Oncology Treatment, [place] [address] [place] [address] [place], Chair 9 Hem Onc Scen[address] [place] [address] 12/26/2023 2:40 PM EDT Office Visit Family Practice [facility] 132 [facility] [place] [address] Dru Fritz MD 132 [facility] [place] [address] 05/20/2024 2:15 PM EDT Office Visit Urology, [facility] 132 [facility] [place] [address] Isaías Novak MD [address] [place] [address] Health Maintenance Due Date Last Done Comments DISCUSS TOBACCO CESSATION (REFER TO SMARTSET #8181) 1960 COVID-19 Vaccine (#1) 1965 Pneumococcal Vaccine: [...] Additional history exists CKD PHOS USE SMARTSET 68190 10/10/202410/01, 09/10/2023, 08/14/2023, Additional history exists CKD HGB USE SMARTSET 65212 11/22/202411/22, 11/22/2023, 10/31/2023, Additional history exists GARDASIL-HPV IMMUNIZATION SERIES Aged Out No longer eligible based on patient's age to complete this topic Hepatitis B Aged Out No longer eligi ble based on patient's age to complete this topic MENINGOCOCCAL (MENACTRA/MENVEO) Aged Out No longer eligible based on patient's age to complete this topic documented as of this encounter Medical Devices Implanted Type Area Athletic Gear Custodian Device Identifier Shelf Expiration Date Model / Serial / Lot Stent Trnscarotid Enroute 7x40 - [id number] Implanted:Qty: 1 on 01/25/2021 by Zeinab Robert MD at [facility] Left: [facility] [id number] 05/31/2023 SR-0740-C S / / [id number] documented as of this encounter Procedures Procedure Name Priority Date/Time Associated Diagnosis Comments PET CT SKULL BASE TO MID THIGH PSMA STAT 11/21/2023 Malignant neoplasm metastatic to bone (HCC) Prostate cancer (HCC) documented in this encounter Results * PET CT SKULL BASE TO MID THIGH PSMA (11/21/2023) Anatomical Region Laterality Modality Body, Chest, Abdomen, Pelvis Oth er 11/21/2023 Pastora SANTOS RAD NUCLEAR MED documented in this encounter Visit Diagnoses Diagnosis Malignant neoplasm metastatic to bone (HCC) Secondary malignant neoplasm of bone and bone marrow Prostate cancer (HCC) Malignant neoplasm of prostate documented in this encounter Advance Directives Latest Code Status on File Code Status Date Activated Date Inactivated Comments Full Code 01/25/2021 10:53 AM 01/26/2021 1:19 PM This order reflects the patients wishes and were consensually agreed upon. Care Teams Care Center Manager Relationship Specialty Start Date End Date Dru Fritz MD [address] [place] [address] PCP - General Family Medicine 01/24/21 documented as of this encounter
--- OUTSIDE RECORDS SUMMARY | 2024-01-12 09:07 | External Medical Summary | Summary of Care ---
Author Name Unknown Organization [facility] Address [address] [place] [place] [address] Phone [phone] Care Team Providers Care Lap Layer Name Role Phone Dru Fritz MD Primary Care Provider [phone] [phone] Encounter Details Date Type Department Care Team (Late st Contact Info) Description 11/22/2023 Orders Only Hematology/Oncology [facility] [place] [address] [facility] [place] [address] Elio Queen MD [address] [facility] [address] Allergies Active Allergy Reactions Criticality Noted Date Comments Amoxicillin-Pot Clavulanate 05/17/20 22 Dizziness and confused documented as of this encounter (statuses as of 11/22/2023) Medications Medication Sig Dispensed Refills Start Date End Date Status SmartGrains SYSTEM W/DEVICE KITIndications:DM type 2, goal A1c [...] Description 11/22/2023 1:30 PM EST Laboratory Laboratory [facility] [address] [place] [phone] [facility] 200 [facility] [place] [address] 11/22/2023 2:00 PM EST Nurse Only Hematology/Oncology Treatment, [place] [address] [place] [phone] Saritha, Chair 5 Hem Onc [address] [place] [address] 11/28/2023 9:00 AM EST Laboratory Laboratory [address] [place] [phone] [address] [place] [address] 11/29/2023 8:45 AM EST Office Visit Hematology/Oncology [facility] [address] [place], [place] [phone] Elio Queen MD 200 [facility] [place] [address] 11/29/2023 9:15 AM EST Hem/Onc Treatment Hematology/Oncology Treatment, [place] [address] [facility] [place], [place] [phone] Saritha, Chair 9 Hem Onc [facility] 200 [facility] [place] [address] 12/26/2023 2:40 PM EDT Office Visit Family Practice [facility] [address] [place] [address] Dru Fritz MD 132 [facility] [place] [address] 05/20/2024 2:15 PM EDT Office Visit Urology, [facility] 132 [place] [address] Isaías Novak MD [address] [address] [place] [address] Health Maintenance Due Date Last Done Comments DISCUSS TOBACCO CESSATION (REFER TO SMARTSET #6645) 1960 COVID-19 Vaccine (#1) 1965 Pneumococcal Vaccine: [...] Additional history exists CKD PHOS USE SMARTSET 49132 10/10/202410/01, 09/10/2023, 08/14/2023, Additional history exists CKD HGB USE SMARTSET 98009 10/31/202410/31, 10/31/2023, 10/10/2023, Additional history exists GARDASIL-HPV IMMUNIZATION SERIES Aged Out No longer eligible based on patient's age to complete this topic Hepatitis B Aged Out No longer eligi ble based on patient's age to complete this topic MENINGOCOCCAL (MENACTRA/MENVEO) Aged Out No longer eligible based on patient's age to complete this topic documented as of this encounter Medical Devices Implanted Type Area Sas Developer Analyst Device Identifier Shelf Expiration Date Model / Serial / Lot Stent Trnscarotid Enroute 7x40 - [id number] Implanted:Qty: 1 on 01/25/2021 by Zeinab Robert MD at [facility] Left: [facility] [id number] 05/31/2023 SR-0740-C S / / [id number] documented as of this encounter Advance Directives Latest Code Status on File Code Status Date Activated Date Inactivated Comments Full Code 01/25/2021 10:53 AM 01/26/2021 1:19 PM This order reflects the patients wishes and were consensually agreed upon. Care Teams Lap Layer Relationship Specialty Start Date End Date Dru Fritz MD [address] [place] [address] PCP - General Family Medicine 01/24/21 documented as of this encounter
[2024-01-12] MEDS: ENOXAPARIN INJ 40 MG/0.4 ML SYR SQ SCH (10:23)
--- OUTSIDE RECORDS SUMMARY | 2024-01-12 14:28 | External Medical Summary | Summary of Care ---
Author Name Unknown Organization [facility] Address [address] [place] [address] Phone [phone] Care Team Providers Care Unit Clerk Name Role Phone Dru Fritz MD Primary Care Provider [phone] [phone] Encounter Details Date Type Department Care Team (Late st Contact Info) Description 01/11/2024 11:00 AM EDT Nurse Only Hematology/Oncology [facility] [place] [address] [place] [address] Saritha, Nurse Hem Onc [facility] [address] [place] [address] Arrived Allergies Active Allergy Reactions Criticality Noted Date Comments Amoxicillin-Pot Clavulanate 05/17/20 22 Dizziness and confused documented as of this encounter (statuses as of 01/11/2024) Medications Medication Sig Dispensed Refills Start Date End Date Status Target Data SYSTEM W/DEVICE KITIndications:DM type 2, goal A1c [...] Sign Reading Time Taken Comments Blood Pressure 111/74 01/11/2024 11:55 AM EDT Pulse 140 01/11/2024 11:55 AM EDT auscultated Temperature 36.9 C (98.4 F) 01/11/2024 1 1:55 AM EDT Respiratory Rate 16 01/11/2024 11:5 5 AM EDT Oxygen Saturation 96% 01/11/2024 11: 55 AM EDT Inhaled Oxygen Concentration - - Weight 59.7 kg (131 lb 9.6 oz) 01/11/20 24 11:55 AM EDT Height - - Body Mass Index 20.01 12/26/2023 2:32 PM EDT documented in this [...] as of this encounter Progress Notes * Ángel Thompson, AMANDA - 01/11/2024 11:47 AM EDT Spoke with patient today regarding his lab work and status. Pt states that over the past few days he has barely been able to drink or eat anything. Is maybe consuming half a boost a day. Notices painwhen he has to urinate. Is taking Tramadol for pain with good effect. Pt states he isn't getting sleep because he wakes up from his checking on him. Per his , he sits and sleeps often and isn't very active. He recently received his first Pluvicto infusion at [facility] and he states he wasn't feeling well before this. Vitals taken and weight decreased by 10lbs over 2 weeks. Pt HR 140 auscultated. BP 111/74. Pt denies chest pain or shortness of breath. This RN advised patient to go to the emergency room from the clinic for evaluation, fluids, labs and further work up due to malnutrition. Pt leaving clinic with Brittaney who will be taking him to [facility]. Called [facility],spoke with charge master analyst and gave report. documented in this encounter Plan of Treatment Upcoming Encounters Date Type Department Care Team (Late st Contact Info) Description 01/17/2024 10:40 AM EDT Laboratory Laboratory [facility] 200 [facility] [place] [phone] [facility] [address] [place] [address] 01/17/2024 11:15 AM EDT Office Visit Hematology/Oncology [facility] 200 [facility] [place] [phone] Elio Queen MD 200 [facility] [place] [address] 01/17/2024 11:45 AM EDT Immunization/Injectio n Hematology/Oncology Treatment, [place] 200 [facility] [place] [phone] Nurse, Med 200 [facility] [place] [address] 05/20/2024 2:15 PM EDT Office Visit Urology, [facility] 132 [facility] [place] [address] Isaías Novak MD 27 [facility] [address] [place] [address] 07/01/2024 4:00 PM EDT Office Visit Family Practice [facility] [address] [place] [address] Dru Fritz MD [address] [place] [address] Health Maintenance Due Date Last Done Comments DISCUSS TOBACCO CESSATION (REFER TO SMARTSET #4239) 1960 COVID-19 Vaccine (#1) 1964 Pneumococcal Vaccine: [...] Influenza Vaccine (FLU shot) (Season Ended) 2024 HbA1c 06/15/2024 12/14/2023, 12/30, 05/15/2022, Additional history exists GFR 07/12/2024 01/11/2024, 11/29, 11/29/2023, Additional history exists CKD HGB USE SMARTSET 06040 01/10/202501/10, 01/11/2024, 12/14/2023, Additional history exists CKD PHOS USE SMARTSET 89414 01/10/202512/30, 11/29/2023, 10/10/2023, Additional history exists GARDASIL-HPV IMMUNIZATION SERIES Aged Out No longer eligible based on patient's age to complete this topic Hepatitis B Aged Out No longer eligi ble based on patient's age to complete this topic MENINGOCOCCAL (MENACTRA/MENVEO) Aged Out No longer eligible based on patient's age to complete this topic documented as of this encounter Medical Devices Implanted Type Area Agricultural Scientist Device Identifier Shelf Expiration Date Model / Serial / Lot Stent Trnscarotid Enroute 7x40 - [id number] Implanted:Qty: 1 on 01/25/2021 by Zeinab Robert MD at [facility] Left: [facility] [id number] 05/31/2023 SR-0740-C S / / [id number] documented as of this encounter Advance Directives Latest Code Status on File Code Status Date Activated Date Inactivated Comments Full Code 01/25/2021 10:53 AM 01/26/2021 1:19 PM This order reflects the patients wishes and were consensually agreed upon. Care Teams Unit Clerk Relationship Specialty Start Date End Date Dru Fritz MD 132 [facility] [place] [address] PCP - General Family Medicine 01/24/21 documented as of this encounter
--- OUTSIDE RECORDS SUMMARY | 2024-01-12 14:28 | External Medical Summary ---
Author Name Unknown Address Unknown Organization [id number]:LABORATORY [facility] - [address] [place] [address] Laboratory Report Ordering Provider Test Date Status PATRICE QUINONES 01/11/2024 11:14:37 Final Observation Date Value Abnormality Reference (Units ) Status Vitamin B12 01/11/2024 11:14:37 213 765-1591 (pg/mL) Final Performing Location [facility] - [address] [place] [address]
--- OUTSIDE RECORDS SUMMARY | 2024-01-12 14:28 | External Medical Summary | Summary of Care ---
Author Name Unknown Organization [facility] Address [address] [place] [address] Phone [phone] Care Team Providers Care Raw Products Director Name Role Phone Dru Fritz MD Primary Care Provider [phone] [phone] Reason for Visit * Reason Comments Outpatient Testing Encounter Details Date Type Department Care Team (Late st Contact Info) Description 01/11/2024 10:00 AM EDT Laboratory Laboratory [facility] [address] [place] [phone] [facility] [address] [place] [address] Prostate cancer metastatic to multiple sites (HCC); Metastasis to bone (HCC) Allergies Active Allergy Reactions Criticality Noted Date Comments Amoxicillin-Pot Clavulanate 05/17/20 22 Dizziness and confused documented as of this encounter (statuses as of 01/11/2024) Medications Medication Sig Dispensed Refills Start Date End Date Status [employer] SYSTEM W/DEVICE KITIndications:DM type 2, goal A1c [...] Description 01/17/2024 10:40 AM EDT Laboratory Laboratory [facility] [address] [place] [phone] [place] [address] [address] Mitchell [facility] [place] [address] 01/17/2024 11:15 AM EDT Office Visit Hematology/Oncology [facility] [place] [address] [place] [address] Elio Queen MD [address] [place] [address] 01/17/2024 11:45 AM EDT Immunization/Injectio n Hematology/Oncology Treatment, [place] 200 [facility] [place] [phone] Nurse, Med [address] [place] [address] 05/20/2024 2:15 PM EDT Office Visit Urology, [facility] 132 [facility] [place] [address] Isaías Novak MD [address] [place] [address] [place] [address] 07/01/2024 4:00 PM EDT Office Visit Family Practice [facility] [address] [facility] [place] [address] Dru Fritz MD [facility] [place] [address] Pending Results Name Type Priority Associated Diagnoses Date /Time PSA Lab STAT Prostate cancer metastatic to multiple sites (HCC) 01/11/2024 11:14 AM EDT CBC WITH WBC DIFFERENTIAL Lab STAT Prostate cancer metastatic to multiple sites (HCC) 01/11/2024 11:14 AM EDT COMPREHENSIVE METABOLIC PANEL Lab STAT Prostate cancer metastatic to multiple sites (HCC) 01/11/2024 11:14 AM EDT PHOSPHORUS Lab STAT Metastasis to bone (HCC) 01/11/2024 11:14 AM EDT IRON SCREEN, INCLUDING TIBC Lab Routine Prostate cancer metastatic to multiple sites (HCC) 01/11/2024 11:14 AM EDT FERRITIN Lab Routine Prostate cancer metastatic to multiple sites (HCC) 01/11/2024 11:14 AM EDT VITAMIN B12 Lab Routine Prostate cancer metastatic to multiple sites (HCC) 01/11/2024 11:14 AM EDT CBC Lab STAT Prostate cancer metastatic to multiple sites (HCC) 01/11/2024 11:14 AM EDT DIFFERENTIAL, AUTOMATED Lab STAT Prostate cancer metastatic to multiple sites (HCC) 01/11/2024 11:14 AM EDT DIFFERENTIAL, TECHNOLOGIST REVIEW Lab Routine Prostate cancer metastatic to multiple sites (HCC) 01/11/2024 11:14 AM EDT Health Maintenance Due Date Last [...] Additional history exists CKD PHOS USE SMARTSET 43379 11/28/202411/02, 10/10/2023, 09/10/2023, Additional history exists CKD HGB USE SMARTSET 49832 12/13/202412/13, 12/14/2023, 11/29/2023, Additional history exists GARDASIL-HPV IMMUNIZATION SERIES Aged Out No longer eligible based on patient's age to complete this topic Hepatitis B Aged Out No longer eligi ble based on patient's age to complete this topic MENINGOCOCCAL (MENACTRA/MENVEO) Aged Out No longer eligible based on patient's age to complete this topic documented as of this encounter Medical Devices Implanted Type Area Telecom Sales Consultant Device Identifier Shelf Expiration Date Model / Serial / Lot Stent Trnscarotid Enroute 7x40 - [id number] Implanted:Qty: 1 on 01/25/2021 by Zeinab Robert MD at [facility] Left: [facility] [id number] 05/31/2023 SR-0740-C S / / [id number] documented as of this encounter Visit Diagnoses [...] and were consensually agreed upon. Care Teams Raw Products Director Relationship Specialty Start Date End Date Dru Fritz MD [address] [place] [address] PCP - General Family Medicine 01/24/21 documented as of this encounter
--- OUTSIDE RECORDS SUMMARY | 2024-01-12 14:28 | External Medical Summary | Summary of Care ---
Author Name Unknown Organization [facility] Address [address] [facility] [place] [address] Phone [phone] Care Team Providers Care Airfield Manager Name Role Phone Dru Fritz MD Primary Care Provider [phone] [phone] Reason for Visit * Reason Onset Date Comments Advice 01/11/2024 Encounter Details Date Type Department Care Team (Late st Contact Info) Description 01/11/2024 Telephone Hematology/Oncology [facility] [place] 200 [facility] [place] [phone] Elio Queen MD [address] [facility] [address] Advice Allergies Active Allergy Reactions Criticality Noted Date Comments Amoxicillin-Pot Clavulanate 05/17/20 22 Dizziness and confused documented as of this encounter (statuses as of 01/11/2024) Medications Medication Sig Dispensed Refills Start Date End Date Status gumi SYSTEM W/DEVICE KITIndications:DM type 2, goal A1c [...] long-term current use of insulin ([facility]) TAKE ONE TABLET BY MOUTH DAILY IN [...] long-term current use of insulin ([facility]) TAKE ONE TABLET BY MOUTH EVERY MORNING [...] Telephone Encounter - Ángel Thompson RN - 01/11/2024 11:[address] Matt lee, patient underwent first Pluvicto treatment on 01/03, stated he wasn't feeling great when he went but still decided to undergo treatment. Brittaney messaged the office, he was seen by me for nurse visit and I sent him to the ER. Please see nurse visit note and labs completed. Thankyou. documented in this encounter Plan of Treatment Upcoming Encounters Date Type Department Care Team (Late st Contact Info) Description 01/17/2024 10:40 AM EDT Laboratory [facility] [place] [address] [place] [phone] Isis Mealra [address] [place] [address] 01/17/2024 11:15 AM EDT Office Visit Hematology/Oncology [facility] [place] [address] [place] [phone] Elio Queen MD [address] [place] [address] 01/17/2024 11:45 AM EDT Immunization/Injectio n Hematology/Oncology Treatment, [place] [address] [place] [address] Nurse, Med [address] [place] [address] 05/20/2024 2:15 PM EDT Office Visit [facility], [facility] [place] [address] Isaías Novak MD [address] [place] [address] [place] [phone] 07/01/2024 4:00 PM EDT Office Visit Family Practice [facility] [place] [address] Dru Fritz MD 132 [facility] [place] [address] Health Maintenance Due Date Last Done Comments DISCUSS TOBACCO CESSATION (REFER TO SMARTSET #6614) 1960 COVID-19 Vaccine (#1) 1965 Pneumococcal Vaccine: [...] Additional history exists CKD HGB USE SMARTSET 40559 01/10/202501/10, 01/11/2024, 12/14/2023, Additional history exists CKD PHOS USE SMARTSET 83305 01/10/202512/30, 11/29/2023, 10/10/2023, Additional history exists GARDASIL-HPV IMMUNIZATION SERIES Aged Out No longer eligible based on patient's age to complete this topic Hepatitis B Aged Out No longer eligi ble based on patient's age to complete this topic MENINGOCOCCAL (MENACTRA/MENVEO) Aged Out No longer eligible based on patient's age to complete this topic documented as of this encounter Medical Devices Implanted Type Area Contracting Manager Device Identifier Shelf Expiration Date Model / Serial / Lot Stent Trnscarotid Enroute 7x40 - [id number] Implanted:Qty: 1 on 01/25/2021 by Zeinab Robert MD at [facility] Left: [facility] [id number] 05/31/2023 SR-0740-C S / / [id number] documented as of this encounter Advance Directives Latest Code Status on File Code Status Date Activated Date Inactivated Comments Full Code 01/25/2021 10:53 AM 01/26/2021 1:19 PM This order reflects the patients wishes and were consensually agreed upon. Care Teams Airfield Manager Relationship Specialty Start Date End Date Dru Fritz MD [address] [place] [address] PCP - General Family Medicine 01/24/21 documented as of this encounter
--- OUTSIDE RECORDS SUMMARY | 2024-01-12 14:28 | External Medical Summary ---
Author Name Unknown Address Unknown Organization K01:LAB[facility]ATORY [facility] - [address] [place] [address] Laboratory Report Ordering Provider Test Date Status PATRICE QUINONES 01/11/2024 11:14:37 Final Observation Date Value Abnormality Reference (Units ) Status PSA 01/11/2024 11:14:37 414.80 Above high normal <4 .10 (ng/mL) Final Performing Location [facility] - [address] [place] [address]
--- OUTSIDE RECORDS SUMMARY | 2024-01-12 14:28 | External Medical Summary ---
Author Name Unknown Address Unknown Organization K01:[facility] - [address] [place] [address] Laboratory Report Ordering Provider Test Date Status PATRICE QUINONES 01/11/2024 11:14:37 Final Observation Date Value Abnormality Reference (Units ) Status Ferritin 01/11/2024 11:14:37 498 Above high normal 30 -400 (ng/mL) Final Performing Location [facility] - [address] [place] [address]
--- OUTSIDE RECORDS SUMMARY | 2024-01-12 14:29 | External Medical Summary ---
Author Name Unknown Address Unknown Organization K01:[facility] - [address] [place] [address] Laboratory Report Ordering Provider Test Date Status PATRICE QUINONES 01/11/2024 11:14:37 Final Observation Date Value Abnormality Reference (Units ) Status Iron 01/11/2024 11:14:37 54 45-176 (ug/dL) Final Iron-binding capacity 01/11/2024 11:14:37 136 Below low normal 250-425 (ug/dL) Final Transferrin Sat % 01/11/2024 11:14:37 40 15-55 (%) Final Performing Location [facility] - [address] [place] [address]
--- NOTE | 2024-01-12 14:55 | Hospitalist Progress Note ---
Date of Service January 12, 2024 Assessment & Plan (1) Prostate cancer metastatic to bone: Plan: History of metastatic prostate cancer Received Pluvicto on last Sunday in [facility], [place] Has been complaining of progressive weakness since then Weakness and shortness of breath is worse as of today Weakness has been better and will get PT and OT evaluation prior to discharge Complications secondary to chemotherapeutic agent Pluvicto Anemia, anorexia, dehydration with renal impairment or seems to be secondary to the medications Condition has been improving with supportive care Will get PT and OT evaluation prior to discharge (2) Generalized weakness: Plan: Likely secondary to chemotherapy Complicated by dehydration And UTI-urine is not showing any significant infection (3) Acute anemia: Plan: Hemoglobin went down to 7.9 from 13.1 in August Hemolysis secondary to chemotherapy No evidence of hematemesis and/or melena No other bleeding Will monitor and may need blood transfusion Hemoglobin remains stable and will recheck (4) UTI due to extended-spectrum beta lactamase (ESBL) producing Escherichia coli: Plan: Has burning with urination UA has been sent for culture and sensitivity No evidence of sepsis Started with intravenous ceftriaxone and will continue Urine culture has been negative Blood cultures have been negative Will discontinue IV antibiotic (5) Acute renal failure: Plan: BUN and creatinine are elevated likely secondary to not being eating or drinking Has history of systolic heart failure but no evidence of fluid overload Will continue with LR at a rate of 80 MLS per hour Advised to drink more fluid Will check PRP and electrolytes tomorrow Kidney function has improved a lot ,advised to drink more fluid (6) DM2 (diabetes mellitus, type 2): Plan: Will hold his oral medications Will place him on a sliding scale (7) Chronic systolic heart failure: Plan: No evidence of fluid overload Will give cautious amount of intravenous fluid Other significant medical conditions remained stable DVT prophylaxis SCDs for now Continue aspirin and Plavix CODE STATUS Full code Admission and Anticipated Discharge Date Admission Date: January 11, 2024 Subjective 01/12/2024 The patient was seen and examined in medical telemetry unit in presence of the daughter He has been feeling much better Denies any significant symptoms and weakness is improving Review of Systems Review of Systems: All systems reviewed and are unremarkable except as noted below Neurologic: Generalized weakness Physical Exam Physical Exam: Lying in bed without any acute distress Constitutional: + ill appearing and average body habitus Eyes: PERRL, conjunctivae normal, anicteric sclerae ENMT: external ear and nose normal, oropharynx normal Neck: trachea midline, no thyromegaly Respiratory: no respiratory distress Auscultation: lungs clear to auscultation bilaterally Cardiovascular: Rate/Rhythm: regular rate and regular rhythm; not tachycardic Heart Sounds: normal S1, normal S2 and + murmur Extremities: no edema Gastrointestinal (Abdomen): Inspection/Auscultation: normal bowel sounds; abdomen not distended Percussion/Palpation: + abdomen tender (Mildly tender hypogastrium) and abdomen soft Musculoskeletal: No acute arthritis involving any of the joints Neurologic: normal touch/pain/proprioception and moves all extremities; no focal motor deficits Lymphatic: no cervical or axillary lymphadenopathy Results & Data Results & Data Vital Signs (Past 12 Hours) Vital Signs Temp Pulse Pulse Resp BP BP Pulse Ox 01/12/24 11:59 36.7 C 81 16 114/67 98 01/12/24 08:01 36.7 C 77 18 146/77 H 97 01/12/24 07:11 81 01/12/24 06:14 101 H 01/12/24 06:14 101 H 01/12/24 03:02 36.7 C 73 18 132/71 98 O2 Del Method 01/12/24 11:59 Room Air 01/12/24 08:01 Room Air 01/12/24 07:11 01/12/24 06:14 01/12/24 06:14 01/12/24 03:02 Room Air Laboratory Results Short CBC 01/12/24 Range/Units 06:16 WBC 9.13 (4.8-10.8) K/ul Hgb 8.1 L (14.0-18.0) g/dl Hct 27.4 L (42.0-52.0) % Plt Count 403 H (130-400) K/uL BMP 01/12/24 06:16 Sodium 145 Potassium 3.9 Chloride 114 H Carbon Dioxide 20 L BUN 20 Creatinine 1.31 Glucose 125 H Calcium 6.1 L Urine 01/11/24 Range/Units 17:55 Urine Color Yellow Urine Appearance Clear (Clear) Urine pH 6.0 (4.5-7.5) Ur Specific Mcdonald 1.021 (1.000-1.030) Urine Protein Trace H (Negative) Urine Glucose (UA) 3+ H (Negative) Medications Administered Current Inpatient Medications Acetaminophen (Acetaminophen 500 Mg Tab) 1,000 mg PO Q6H PRN PRN Reason: Pain Stop: 02/10/24 21:09 Aspirin (Aspirin 81 Mg Ectab) 81 mg PO QAM [facility] Stop: 02/11/24 08:59 Last Admin: 01/12/24 08:40 Dose: 81 mg Clopidogrel Bisulfate (Clopidogrel Bisulfate 75 Mg Tab) 75 mg PO DAILY [facility] Stop: 02/11/24 08:59 Last Admin: 01/12/24 08:40 Dose: 75 mg Dextrose (Dextrose 50% 50 Ml Syringe) 25 - 50 ml IV UD PRN; Protocol PRN Reason: Hypoglycemia Protocol Stop: 02/10/24 18:37 Enoxaparin Sodium (Enoxaparin Inj 40 Mg/0.4 Ml Syr) 40 mg SQ QAM [facility] Stop: 02/11/24 08:59 Last Admin: 01/12/24 10:23 Dose: Not Given Glucagon (Glucagon For Inj 1 Mg Vial) 1 mg SQ UD PRN; Protocol PRN Reason: Hypoglycemia Protocol Stop: 02/10/24 18:37 Glucose (Glucose 10 Tab/Tube) 4 - 8 tab PO UD PRN; Protocol PRN Reason: Hypoglycemia Treatment Stop: 02/10/24 18:37 Glucose (Glucose 40% Gel 15 Gm Tube) 15 - 30 gm PO UD PRN; Protocol PRN Reason: Hypoglycemia Protocol Stop: 02/10/24 18:37 Lactated Ringer's (Lr) 1,000 mls @ 80 mls/hr IV .[id number] [facility] Stop: 01/13/24 07:44 Last Admin: 01/12/24 07:18 Dose: 80 mls/hr Ceftriaxone Sodium 1,000 mg/ (Dextrose) 50 mls @ 100 mls/hr IV Q24H [facility]; Protocol Stop: 01/21/24 15:59 Insulin Aspart (Insulin Aspart Per Unit Charge) 0 units SC ACHS [facility] Stop: 02/10/24 20:59 Last Admin: 01/12/24 12:56 Dose: Not Given Miscellaneous (Carbohydrates For Hypoglycemia ) 15 - 30 gm PO UD PRN PRN Reason: Hypoglycemia Protocol Stop: 02/10/24 18:37 Morphine Sulfate (Morphine Sulfate Ir 15 Mg Tab (Immediate Release)) 15 mg PO BID PRN PRN Reason: Pain Stop: 01/25/24 21:09 Last Admin: 01/11/24 22:23 Dose: 15 mg Morphine Sulfate (Morphine Sulfate 4 Mg/Ml 1 Ml Carp\Vial) 3 mg IV Q4H PRN PRN Reason: Severe Pain (Scale 7, 8, 9,10) Stop: 01/25/24 21:41 Potassium Phosphate (Pot Phosphate Monobasic W/ Sod Tab) 2 tab PO DAILY [facility] Stop: 02/11/24 08:59 Last Admin: 01/12/24 08:40 Dose: 2 tab Prochlorperazine (Prochlorperazine Maleate 10 Mg Tab) 10 mg PO TID PRN PRN Reason: Nausea Stop: 02/10/24 21:09 Tamsulosin HCl (Tamsulosin Hcl 0.4 Mg Cap) 0.4 mg PO QAM [facility] Stop: 02/11/24 08:59 Last Admin: 01/12/24 08:40 Dose: 0.4 mg (5) Acute renal failure Acute renal failure type: unspecified Qualified Code(s): N17.9 - Acute kidney failure, unspecified
[2024-01-12] MEDS: cefTRIAXone SODIUM 1,000 MG in DEXTROSE 5 % MINI-B 50 ML IV SCH (15:33)
[2024-01-12] MEDS: CARBOHYDRATES FOR HYPOGLYCEMIA PO PRN (20:13)
[2024-01-13 06:55] LABS: Hematocrit (blood only) 25.1 % (42.0-52.0); Hemoglobin 7.5 g/dl (14.0-18.0); Mean Corpuscular Hemoglobin 29.1 pg (25.0-34.0); Mean Corpuscular Hgb Conc 29.9 g/dL (32.0-36.0); Mean Corpuscular Volume 97.3 fL (80.0-100.0); Mean Platelet Volume 8.5 fL (9.4-12.4); Nucleated RBC # (auto) 0.03 K/uL (0.00-0.12); Nucleated RBC % (auto) 0.4 %; Platelet Count 316 K/uL (130-400); RDW Coefficient of Variation 17.8 % (11.5-14.5); RDW Standard Deviation 62.9 fL (36.4-46.3); Red Blood Count 2.58 M/uL (4.70-6.10); White Blood Count 7.07 K/ul (4.8-10.8)
[2024-01-13 07:25] LABS: Calcium 6.3 mg/dl (8.6-10.3); Creatinine Clr Calc Pharmacy 61.4 ml/min; Est GFR (African American) 79.2 ml/min; Est GFR (Non-African American) 68.3 ml/min; Magnesium 2.1 mg/dl (1.7-2.4); Phosphorus 3.7 mg/dl (2.5-4.9); Potassium 3.4 mmol/L (3.5-5.1)
[2024-01-13 07:27] LABS: Basophils # (auto) 0.04 K/uL (0.00-0.20); Basophils % (auto) 0.6 %; Eosinophils # (auto) 0.06 K/uL (0.00-0.50); Eosinophils % (auto) 0.8 %; Immature Granulocytes # (auto) 0.46 K/uL (0.01-0.20); Immature Granulocytes % (auto) 6.5 %; Lymphocytes # (auto) 0.95 K/uL (1.20-3.40); Lymphocytes % (auto) 13.4 %; Monocytes # (auto) 0.36 K/uL (0.11-0.59); Monocytes % (auto) 5.1 %; Neutrophils % (auto) 73.6 %; Polychromasia 1+; Tear Drop Cells 1+
[2024-01-13] MEDS: CALCIUM CHLORIDE 10% 1,000 MG in DEXTROSE 5% 50 ML IV STA (08:38)
[2024-01-13] MEDS: traMADol HCL 50 MG TABLET PO PRN (08:45)
[2024-01-13] MEDS: POTASSIUM CHLORIDE / WTR 10 MEQ/100 ML PLCT IV SCH (08:58)
--- NOTE | 2024-01-13 12:41 | Hospitalist Progress Note ---
Date of Service January 13, 2024 Assessment & Plan (1) Prostate cancer metastatic to bone: Plan: History of metastatic prostate cancer Received Pluvicto on last Sunday in [facility], [place] Has been complaining of progressive weakness since then Weakness and shortness of breath is worse as of today Weakness has been better and will get PT and OT evaluation prior to discharge Did very well with PT and OT He has been eating and drinking reasonably Complications secondary to chemotherapeutic agent Pluvicto Anemia, anorexia, dehydration with renal impairment or seems to be secondary to the medications Condition has been improving with supportive care Electrolytes have been replaced Events of tachycardia last evening but remained stable since this morning He wants to go home and does not want to stay longer in the hospital The importance of staying in the hospital was discussed in detail in spite of that he wanted to go and take the risk He will be discharged home this afternoon following repeat blood test (2) Generalized weakness: Plan: Likely secondary to chemotherapy Complicated by dehydration And UTI-urine is not showing any significant infection Does not any antibiotic for suspected UTI-which has been (3) Acute anemia: Plan: Hemoglobin went down to 7.9 from 13.1 in August Hemolysis secondary to chemotherapy No evidence of hematemesis and/or melena No other bleeding Will monitor and may need blood transfusion Hemoglobin remains stable and will recheck Hemoglobin remains more than 7 and expected to improve (4) UTI due to extended-spectrum beta lactamase (ESBL) producing Escherichia coli: Plan: Has burning with urination UA has been sent for culture and sensitivity No evidence of sepsis Started with intravenous ceftriaxone and will continue Urine culture has been negative Blood cultures have been negative Will discontinue IV antibiotic (5) Acute renal failure: Plan: BUN and creatinine are elevated likely secondary to not being eating or drinking Has history of systolic heart failure but no evidence of fluid overload Will continue with LR at a rate of 80 MLS per hour Advised to drink more fluid Will check PRP and electrolytes tomorrow Kidney function has improved a lot ,advised to drink more fluid Kidney function has been normalized (6) DM2 (diabetes mellitus, type 2): Plan: Will hold his oral medications Will place him on a sliding scale (7) Chronic systolic heart failure: Plan: No evidence of fluid overload Will give cautious amount of intravenous fluid Other significant medical conditions remained stable DVT prophylaxis SCDs for now Continue aspirin and Plavix CODE STATUS Full code Will be discharged this afternoon Admission and Anticipated Discharge Date Admission Date: January 11, 2024 Subjective 01/12/2024 The patient was seen and examined in medical telemetry unit in presence of the daughter He has been feeling much better Denies any significant symptoms and weakness is improving 01/13/2024 The patient was seen and examined in medical telemetry unit in presence of the daughter He has had events of tachycardia/tachyarrhythmia last night without any symptoms Has been feeling much better and has had physical therapy and did very well He does not want to stay any longer in the hospital and wants to leave Review of Systems Review of Systems: All systems reviewed and are unremarkable except as noted below Neurologic: Generalized weakness Physical Exam Physical Exam: Lying in bed without any acute distress Constitutional: + ill appearing and average body habitus Eyes: PERRL, conjunctivae normal, anicteric sclerae ENMT: external ear and nose normal, oropharynx normal Neck: trachea midline, no thyromegaly Respiratory: no respiratory distress Auscultation: lungs clear to auscultation bilaterally Cardiovascular: Rate/Rhythm: regular rate and regular rhythm; not tachycardic Heart Sounds: normal S1, normal S2 and + murmur Extremities: no edema Gastrointestinal (Abdomen): Inspection/Auscultation: normal bowel sounds; abdomen not distended Percussion/Palpation: + abdomen tender (Mildly tender hypogastrium) and abdomen soft Musculoskeletal: No acute arthritis involving any of the joint Neurologic: normal touch/pain/proprioception and moves all extremities; no focal motor deficits Psychiatric: A+Ox3, euthymic affect Lymphatic: no cervical or axillary lymphadenopathy Results & Data Results & Data Vital Signs (Past 12 Hours) Vital Signs Temp Pulse Pulse Resp BP Pulse Ox O2 Del Method 01/13/24 08:00 36.5 C 89 17 149/87 H 99 Room Air 01/13/24 06:03 83 01/13/24 02:55 36.6 C 79 18 155/83 H 100 Room Air Laboratory Results Short CBC 01/13/24 Range/Units 05:52 WBC 7.07 (4.8-10.8) K/ul Hgb 7.5 L (14.0-18.0) g/dl Hct 25.1 L (42.0-52.0) % Plt Count 316 (130-400) K/uL BMP 01/13/24 05:52 Sodium 141 Potassium 3.4 L Chloride 110 H Carbon Dioxide 22 BUN 17 Creatinine 1.13 Glucose 114 H Calcium 6.3 L Medications Administered Current Inpatient Medications Acetaminophen (Acetaminophen 500 Mg Tab) 1,000 mg PO Q6H PRN PRN Reason: Pain Stop: 02/10/24 21:09 Aspirin (Aspirin 81 Mg Ectab) 81 mg PO QAM [facility] Stop: 02/11/24 08:59 Last Admin: 01/13/24 08:39 Dose: 81 mg Clopidogrel Bisulfate (Clopidogrel Bisulfate 75 Mg Tab) 75 mg PO DAILY [facility] Stop: 02/11/24 08:59 Last Admin: 01/13/24 08:39 Dose: 75 mg Dextrose (Dextrose 50% 50 Ml Syringe) 25 - 50 ml IV UD PRN; Protocol PRN Reason: Hypoglycemia Protocol Stop: 02/10/24 18:37 Enoxaparin Sodium (Enoxaparin Inj 40 Mg/0.4 Ml Syr) 40 mg SQ QAM [facility] Stop: 02/11/24 08:59 Last Admin: 01/13/24 08:39 Dose: Not Given Glucagon (Glucagon For Inj 1 Mg Vial) 1 mg SQ UD PRN; Protocol PRN Reason: Hypoglycemia Protocol Stop: 02/10/24 18:37 Glucose (Glucose 10 Tab/Tube) 4 - 8 tab PO UD PRN; Protocol PRN Reason: Hypoglycemia Treatment Stop: 02/10/24 18:37 Glucose (Glucose 40% Gel 15 Gm Tube) 15 - 30 gm PO UD PRN; Protocol PRN Reason: Hypoglycemia Protocol Stop: 02/10/24 18:37 Ceftriaxone Sodium 1,000 mg/ (Dextrose) 50 mls @ 100 mls/hr IV Q24H [facility]; Protocol Stop: 01/21/24 15:59 Last Infusion: 01/12/24 16:03 Dose: Infused Insulin Aspart (Insulin Aspart Per Unit Charge) 0 units SC ACHS [facility] Stop: 02/10/24 20:59 Last Admin: 01/13/24 12:23 Dose: Not Given Miscellaneous (Carbohydrates For Hypoglycemia ) 15 - 30 gm PO UD PRN PRN Reason: Hypoglycemia Protocol Stop: 02/10/24 18:37 Last Admin: 01/12/24 20:13 Dose: 15 gm Morphine Sulfate (Morphine Sulfate Ir 15 Mg Tab (Immediate Release)) 15 mg PO BID PRN PRN Reason: Pain Stop: 01/25/24 21:09 Last Admin: 01/12/24 16:10 Dose: 15 mg Morphine Sulfate (Morphine Sulfate 4 Mg/Ml 1 Ml Carp\Vial) 3 mg IV Q4H PRN PRN Reason: Severe Pain (Scale 7, 8, 9,10) Stop: 01/25/24 21:41 Potassium Phosphate (Pot Phosphate Monobasic W/ Sod Tab) 2 tab PO DAILY [facility] Stop: 02/11/24 08:59 Last Admin: 01/13/24 08:39 Dose: 2 tab Prochlorperazine (Prochlorperazine Maleate 10 Mg Tab) 10 mg PO TID PRN PRN Reason: Nausea Stop: 02/10/24 21:09 Tamsulosin HCl (Tamsulosin Hcl 0.4 Mg Cap) 0.4 mg PO QAM [facility] Stop: 02/11/24 08:59 Last Admin: 01/13/24 08:39 Dose: 0.4 mg Tramadol HCl (Tramadol Hcl 50 Mg Tablet) 100 mg PO BID PRN PRN Reason: pain Stop: 02/12/24 08:02 Last Admin: 01/13/24 08:45 Dose: 100 mg (5) Acute renal failure Acute renal failure type: unspecified Qualified Code(s): N17.9 - Acute kidney failure, unspecified
[2024-01-13 13:24] LABS: Albumin Globulin Ratio 1.1 (0.9-2); Albumin Level 3.3 gm/dl (3.4-5.0); BUN Creatinine Ratio 13.8 (10-20); Bilirubin,Total 0.3 mg/dl (0.2-1.0); Calcium 7.4 mg/dl (8.6-10.3); Creatinine Clr Calc Pharmacy 59.8 ml/min; Est GFR (African American) 76.7 ml/min; Est GFR (Non-African American) 66.2 ml/min; Globulin 3.1 gm/dl (2.5-4.0); Phosphorus 4.3 mg/dl (2.5-4.9); Potassium 4.1 mmol/L (3.5-5.1); Total Protein 6.4 gm/dl (6.0-8.3)
--- NOTE | 2024-01-13 16:03 | Discharge Summary ---
Date of Service January 13, 2024 Admission HPI Per Admitting Provider He is a 63-year-old male with significant past medical history of metastatic prostate cancer, chronic systolic failure, diabetes type 2, hypertension and hyperlipidemia apparently has had chemotherapy with Pluvicto in [place] 1 week ago. He has been complaining of increasing weakness, decreasing appetite and increasing lethargy with shortness of breath on minimal exertion for the last 1 week. No fever and or chills but does have burning with micturition. He was brought into ER today with increasing symptoms. Noted to have possible UTI without any sepsis and acute renal failure likely secondary to dehydration. His hemoglobin is dropped to 7.9 from 13.1 from August. He denies any chest pain, palpitation, denies any cough and/or shortness of breath at rest. No abdominal pain, nausea and or vomiting. he will be admitted to medical telemetry unit for continued care Admission Exam Per Admitting Provider Physical Exam: Lying in bed without any acute distress Constitutional: + ill appearing and average body habitus Eyes: PERRL, conjunctivae normal, anicteric sclerae ENMT: external ear and nose normal, oropharynx normal Neck: trachea midline, no thyromegaly Respiratory: no respiratory distress Auscultation: lungs clear to auscultation bilaterally Cardiovascular: Rate/Rhythm: regular rate and regular rhythm; not tachycardic Heart Sounds: normal S1, normal S2 and + murmur Extremities: no edema Gastrointestinal (Abdomen): Inspection/Auscultation: normal bowel sounds; abdomen not distended Percussion/Palpation: + abdomen tender (Mildly tender hypogastrium) and abdomen soft Musculoskeletal: No acute arthritis involving any of the joint Neurologic: normal touch/pain/proprioception and moves all extremities; no focal motor deficits Generally very weak and lethargic Lymphatic: no cervical or axillary lymphadenopathy Principal Diagnosis Complications of chemo, prostate cancer with metastasis, CARLA-improved. Anemia secondary to chemotherapy Discharge Exam Lying in bed without any acute distress Constitutional + ill appearing and average body habitus Eyes PERRL, conjunctivae normal, anicteric sclerae ENMT external ear and nose normal, oropharynx normal Neck trachea midline, no thyromegaly Respiratory no respiratory distress Auscultation: lungs clear to auscultation bilaterally Cardiovascular Rate/Rhythm: regular rate and regular rhythm; not tachycardic Heart Sounds: normal S1, normal S2 and + murmur Extremities: no edema Gastrointestinal (Abdomen) Inspection/Auscultation: normal bowel sounds; abdomen not distended Percussion/Palpation: + abdomen tender (Mildly tender hypogastrium) and abdomen soft Neurologic normal touch/pain/proprioception and moves all extremities; no focal motor deficits Psychiatric A+Ox3, euthymic affect Lymphatic no cervical or axillary lymphadenopathy Discharge Data Allergies Allergy/AdvReac Type Severity Reaction Status Date / Time amoxicillin [From Augmentin] AdvReac Intermediate DIZZINESS/C Verified 01/11/24 16:27 ONFUSION clavulanic acid AdvReac Intermediate DIZZINESS/C Verified 01/11/24 16:27 [From Augmentin] ONFUSION codeine AdvReac Intermediate Gastrointestinal Verified 01/11/24 16:27 Upset Consultations 01/11/24 17:20 ED Decision to Admit Stat Hospital Course (1) Prostate cancer metastatic to bone: History of metastatic prostate cancer Received Pluvicto on last Sunday in [facility], [place] Has been complaining of progressive weakness since then Weakness and shortness of breath is worse as of today Weakness has been better and will get PT and OT evaluation prior to discharge Did very well with PT and OT He has been eating and drinking reasonably Complications secondary to chemotherapeutic agent Pluvicto Anemia, anorexia, dehydration with renal impairment or seems to be secondary to the medications Condition has been improving with supportive care Electrolytes have been replaced Events of tachycardia last evening but remained stable since this morning He wants to go home and does not want to stay longer in the hospital The importance of staying in the hospital was discussed in detail in spite of that he wanted to go and take the risk He will be discharged home this afternoon following repeat blood test (2) Generalized weakness: Likely secondary to chemotherapy Complicated by dehydration And UTI-urine is not showing any significant infection Does not any antibiotic for suspected UTI-which has been (3) Acute anemia: Hemoglobin went down to 7.9 from 13.1 in August Hemolysis secondary to chemotherapy No evidence of hematemesis and/or melena No other bleeding Will monitor and may need blood transfusion Hemoglobin remains stable and will recheck Hemoglobin remains more than 7 and expected to improve (4) UTI due to extended-spectrum beta lactamase (ESBL) producing Escherichia coli: Has burning with urination UA has been sent for culture and sensitivity No evidence of sepsis Started with intravenous ceftriaxone and will continue Urine culture has been negative Blood cultures have been negative Will discontinue IV antibiotic (5) Acute renal failure: BUN and creatinine are elevated likely secondary to not being eating or drinking Has history of systolic heart failure but no evidence of fluid overload Will continue with LR at a rate of 80 MLS per hour Advised to drink more fluid Will check PRP and electrolytes tomorrow Kidney function has improved a lot ,advised to drink more fluid Kidney function has been normalized (6) DM2 (diabetes mellitus, type 2): Will hold his oral medications Will place him on a sliding scale (7) Chronic systolic heart failure: No evidence of fluid overload Will give cautious amount of intravenous fluid Other significant medical conditions remained stable DVT prophylaxis SCDs for now Continue aspirin and Plavix CODE STATUS Full code Will be discharged this afternoon Total Time Total Time Spent Total Time Spent (In Minutes): 40 minutes Discharge Plan Discharge Items Patient Disposition: Home - Self-Care Reason For Visit: WEAKNESS, CARLA, ANEMIA Discharge Diagnosis: Complications of chemo, prostate cancer with metastasis, CARLA-improved. Anemia secondary to chemotherapy Condition on Discharge: Fair Activity: Resume your previous activity Non-emergency contact: Primary Care Provider Call non-emergency contact if: you have any medication questions and your symptoms worsen Follow-up/Referrals: Dru Fritz MD [Primary Care Provider] - (Your doctor's office will call you with an appointment within 7 days) Diet: Carb Consistent or DM2 Addtl Attending Provider Instructions: Please take precautions to avoid falls No change in your medications Try to eat and drink reasonably Keep appointments with the healthcare providers Pending Studies at Discharge: No Stand-Alone Forms: My [facility] [employer], Smoking Cessation Medications and DC Order Prescriptions: Continued acetaminophen [Tylenol Extra Strength] 500 mg tablet 500 - 1,000 mg PO Q6H PRN (Reason: Pain) Xgeva 120 mg/1.7 mL (70 mg/mL) solution 120 mg subcut MONTHLY Rx Instructions: Has appointment next week Entresto 24-26 mg tablet 1 tab PO BID Tradjenta 5 mg tablet 5 mg PO DAILY clopidogrel 75 mg tablet 75 mg PO DAILY tramadol 50 mg tablet 150 mg PO BID PRN (Reason: pain) atorvastatin 80 mg Tablet 80 mg PO QAM alfuzosin [Uroxatral] 10 mg tablet extended release 24 hr 10 mg PO QAM Jardiance 25 mg tablet 25 mg PO QAM aspirin 81 mg Tablet,Delayed Release (Dr/Ec) 81 mg PO QAM Qty: 30 0RF Rx Instructions: ALWAYS WITH FOOD ondansetron HCl 8 mg Tablet 8 mg PO DIRECTED PRN (Reason: Nausea) prochlorperazine maleate 10 mg tablet 10 mg PO DIRECTED PRN (Reason: Nausea) morphine 15 mg tablet 15 mg PO BID PRN (Reason: Pain) Rx Instructions: Some times takes 1/2 tab K-Phos Original 500 mg tablet,soluble 500 mg PO DAILY Discharge Orders: Discharge Order (Routine); Ordered 01/13/24 Ordered By: Tin Lu/Other Patient Handouts: Dehydration Admission Data Admit Date/Time: 01/11/24 18:04 Attending Provider: Tin Caban Admit Provider: Tin Caban Primary Care Provider: Dru Fritz Other Providers: Tin Caban Other Interventions: Discharge Summary Assessment (RN) Last Done: 01/13/24 14:02
== END 2024-01-13 14:18 | disposition home or self-care (01) | DRG 641 ==
LOC: ED 12:21 → 2W 18:04

== ENCOUNTER 2024-02-15 14:07 | Inpatient (IN) ==
--- NOTE | 2024-02-15 14:40 | XRay Report ---
XR chest 1V portable HISTORY: 63 years-old Male sob acute shortness of breath COMPARISON: 01/11/2024 TECHNIQUE: AP view of the chest FINDINGS: Cardiomediastinal and hilar silhouettes are within normal limits. No pneumothorax, pleural effusion, airspace consolidation or pulmonary edema. Degenerative changes of the shoulders and spine. IMPRESSION: No acute process. ACT 112: Negative or not required by law. The above report was generated using voice recognition software. It may contain grammatical, syntax o r spelling errors. Electronically signed by: Mejia Kowalski M.D. 02/15/2024 2:38 PM
--- NOTE | 2024-02-15 15:12 | Emergency Department Note ---
ED Visit Note I was consulted in regards to the patient's presentation and plan of care by the Advanced Practice Provider. I engaged in a detailed/meaningful discussion with the Advanced Practice Provider in regards to this patient's workup and plan of care. Please see the Advanced Practice Provider's note for full details of the patient encounter. I agree with the assessment and plan of POLO Pearson, DO Emergency Medicine .
[2024-02-15 15:14] LABS: Albumin Globulin Ratio 1.2 (0.9-2); Albumin Level 3.4 gm/dl (3.4-5.0); BUN Creatinine Ratio 10.3 (10-20); Bilirubin,Total 0.3 mg/dl (0.2-1.0); Creatinine Clr Calc Pharmacy 32.8 ml/min; Est GFR (African American) 43.6 ml/min; Est GFR (Non-African American) 37.6 ml/min; Globulin 2.9 gm/dl (2.5-4.0); Potassium 3.5 mmol/L (3.5-5.1); Total Protein 6.3 gm/dl (6.0-8.3)
[2024-02-15 15:18] LABS: Hematocrit (blood only) 21.3 % (42.0-52.0); Hemoglobin 6.6 g/dl (14.0-18.0); Mean Corpuscular Hemoglobin 29.3 pg (25.0-34.0); Mean Corpuscular Volume 94.7 fL (80.0-100.0); Mean Platelet Volume 9.7 fL (9.4-12.4); Nucleated RBC # (auto) 0.02 K/uL (0.00-0.12); Nucleated RBC % (auto) 0.5 %; Platelet Count 117 K/uL (130-400); Red Blood Count 2.25 M/uL (4.70-6.10); White Blood Count 3.98 K/ul (4.8-10.8)
[2024-02-15] MEDS ORDERED: SODIUM CHLORIDE 0.9% 250 ML IV PRN ×2 (15:21→21:43)
[2024-02-15 15:39] LABS: Anisocytosis Present; Basophils # (auto) 0.02 K/uL (0.00-0.20); Basophils % (auto) 0.5 %; Eosinophils # (auto) 0.02 K/uL (0.00-0.50); Eosinophils % (auto) 0.5 %; Immature Granulocytes # (auto) 0.17 K/uL (0.01-0.20); Immature Granulocytes % (auto) 4.3 %; Lymphocytes # (auto) 0.53 K/uL (1.20-3.40); Lymphocytes % (auto) 13.3 %; Monocytes # (auto) 0.35 K/uL (0.11-0.59); Monocytes % (auto) 8.8 %; Neutrophils # (auto) 2.89 K/uL (1.40-6.50); Neutrophils % (auto) 72.6 %
[2024-02-15 15:42] LABS: Troponin I High Sensitivity 78.4 pg/ml (0-20)
--- NOTE | 2024-02-15 15:57 | History & Physical Report ---
<Statement entered by Damian Allison, - 02/15/24 19:15> I have seen and examined the patient and have discussed the case with the provider above. I have reviewed the advanced practitioner's documentation, and I agree with, and take responsibility for that plan of care. 20 minutes additional care Patient seen while still in the ED. is at bedside. Constitutional: Patient extremely pale and somewhat frail in appearance CV: S1-S2 Assessment, plan of care and orders discussed with CORBIN and as outlined below Date of Service February 15, 2024 Assessment & Plan (1) Acute on chronic anemia: (2) Pancytopenia due to chemotherapy: Plan: This is a 63-year-old male with PMH of metastatic prostate cancer on chemotherapy, type 2 diabetes, PAD, HFrEF, hypertension, CKD 3, history of CVA, tobacco use disorder and other medical problems listed below who was directed from heme-onc clinic due to worsening anemia and renal function since outpatient labs yesterday. Sent to ED as directed by Dr. Queen with downtrending hgb (7.7 -> 7.3), 6.6 in ED today In setting of ongoing cancer treatment, previously on chemo (discontinued in November), received first dose of Pluvicto treatment at [facility], received for the first time 01/03/22 but subsequent treatment was postponed due to anemia Consented for blood, ordered 2u PRBCs Monitor volume status closely - h/o reduced EF 48% but will hold off on IV lasix in between units given dehydrated appearance Repeat H&H at 2044 (3) Prostate cancer metastatic to bone: Plan: Endorsing chronic bone pain of pelvis. Continue home tramadol BID, IR morphine PRN for breakthrough pain, holding MS Contin for now as not actively filling per pdmp review (4) Acute renal failure superimposed on stage 3 chronic kidney disease: Plan: Cr 1.8-1.9 over the past 2 days (baseline ~ 1.2) Suspect a pre-renal component, renal toxicity listed as side effect from Plucivto Trend daily BMP (5) Elevated troponin: Plan: Initial HS trop 78 Likely demand ischemia in setting of anemia No chest pain EKG reviewed - sinus tachycardia with occasional PVCs, otherwise normal Repeat trop this evening (6) HFrEF (heart failure with reduced ejection fraction): Plan: 2D echo from Aug 2023 shows EF 48% (improved from previous), no valvular abnormalities Continue Entresto, statin (7) DM2 (diabetes mellitus, type 2): Plan: A1c 6.3 in November Hold home agents SSI while in-patient BSG AC HS (8) PAD (peripheral artery disease): (9) History of CVA (cerebrovascular accident): Plan: Continue aspirin, plavix for now - feel anemia is 2/2 bone marrow suppression as above vs an acute bleed (10) BPH with obstruction/lower urinary tract symptoms: Plan: Continue alfuzosin, bladder scan PRN DVT Ppx: SCDs Code status: FULL PCP: Catrina Dispo: Admitted to med tele Patient seen in collaboration with Dr. Allison. Please see addendum. I spent a total of 75 minutes coordinating, documenting, and providing care for this patient excluding time spent in the performance of separately billed services. History of Present Illness Chief Complaint: referred for abnormal labs Primary Care Provider: Dru Fritz MD This is a 63-year-old male with PMH of metastatic prostate cancer on chemotherapy, type 2 diabetes, PAD, HFrEF, hypertension, CKD 3, history of CVA, tobacco use disorder and other medical problems listed below who was directed from heme-onc clinic due to worsening anemia and renal function since outpatient labs yesterday. Was seen in heme/onc infusion center yesterday for Xgeva injection and was held due to hypocalcemia and hypophosphatemia. Received 1L NSS fluid resuscitation and instructed to return today for repeat labs. Hgb downtrended from 7.7 to 7.3 and Cr from 1.8 to 1.9 and was directed by Dr. Queen to ED for further evaluation. Since the last chemo treatment in November (which has since been discontinued), patient endorses feeling more run down, fatigued and without an appetite. + Positional lightheadedness. No recent F/C, syncopal episodes, CP, SOB, N/V, abdominal pain aside from chronic cancer pain. + Dysuria, denies hematuria. Diarrhea today was brown in color. No recent melena or hematochezia. Taking a daily laxative to aid bowel movements in setting of daily opioids. Follows with Dr. Queen and Dr. Novak for mgmt of prostate cancer. Was recently started on Pluvicto treatment at [facility], received for the first time 01/03/22 but one week later was admitted to [facility] for worsening anemia, renal function and improved with IV hydration. Per at bedside, PSA has been controlled but has not received another Pluvicto treatment yet (was pushed back from end december to the end of January). 2D echo from 2022 shows EF 48% (improved from previous), no valvular abnormalities. Allergies Allergy/AdvReac Type Severity Reaction Status Date / Time amoxicillin [From Augmentin] AdvReac Intermediate DIZZINESS/C Verified 02/15/24 15:57 ONFUSION clavulanic acid AdvReac Intermediate DIZZINESS/C Verified 02/15/24 15:57 [From Augmentin] ONFUSION codeine AdvReac Intermediate Gastrointestinal Verified 02/15/24 15:57 Upset Home Medications Medication Instructions Recorded Confirmed Type atorvastatin 80 mg tablet 80 mg PO QPM 04/23/19 02/15/24 History alfuzosin 10 mg tablet,extended 10 mg PO QAM 05/31/21 02/15/24 History release 24 hr (Uroxatral) empagliflozin 25 mg tablet 25 mg PO QAM 05/31/21 02/15/24 History (Jardiance) aspirin 81 mg tablet,delayed 81 mg PO QAM #30 tabs 06/03/21 02/15/24 Rx release acetaminophen 500 mg tablet 500 - 1,000 mg PO Q6H PRN Pain 12/06/22 02/15/24 History (Tylenol Extra Strength) clopidogrel 75 mg tablet 75 mg PO QAM 12/06/22 02/15/24 History denosumab 120 mg/1.7 mL (70 mg/mL) 120 mg subcut MONTHLY 12/06/22 02/15/24 History subcutaneous solution (Xgeva) linagliptin 5 mg tablet (Tradjenta) 5 mg PO QAM 12/06/22 02/15/24 History sacubitril 24 mg-valsartan 26 mg 1 tab PO BID 12/06/22 02/15/24 History tablet (Entresto) tramadol 50 mg tablet 300 mg PO BID pain 08/01/23 02/15/24 History morphine 15 mg immediate release 15 mg PO BID PRN Pain 01/11/24 02/15/24 History tablet ondansetron HCl 8 mg tablet 8 mg PO DIRECTED PRN Nausea 01/11/24 02/15/24 History potassium phosphate, monobasic 500 500 mg PO BID 01/11/24 02/15/24 History mg soluble tablet (K-Phos Original) prochlorperazine maleate 10 mg 10 mg PO DIRECTED PRN Nausea 01/11/24 02/15/24 History tablet calcium carbonate 600 mg-vitamin 3 tab PO QAM 02/15/24 02/15/24 History D3 20 mcg (800 unit) chewable tablet (Caltrate 600 plus D) morphine 15 mg tablet,extended 15 mg PO DAILY PRN Pain 02/15/24 02/15/24 History release Past Med/Surg History Problem List (Updated 02/15/24 @ 17:44 by Marj Zimmer PA-C) History of CVA (cerebrovascular accident) HFrEF (heart failure with reduced ejection fraction) Acute on chronic anemia Acute renal failure superimposed on stage 3 chronic kidney disease Pancytopenia due to chemotherapy Adult failure to thrive (Acute) Elevated troponin (Acute) Prostate cancer metastatic to bone (Chronic) Prostate cancer Biopsy on 06/10/21 Tobacco abuse (Chronic) HLD (hyperlipidemia) (Chronic) HTN (hypertension) (Chronic) DM2 (diabetes mellitus, type 2) (Chronic) PAD (peripheral artery disease) BPH with obstruction/lower urinary tract symptoms (Acute) Medical History (Updated 02/15/24 @ 17:44 by Marj Zimmer PA-C) History of left heart catheterization (LHC) "cardiac cath -02/04 10-20% block" Stroke Surgical History History of left common carotid artery stent placement Family History Mother , in her 80s Myocardial infarction H/O cardiac surgery Diabetes Father , 58yo Myocardial infarction Lung disease From working in [employer]; Brother No problems noted. Brother No problems noted. Brother No problems noted. Brother No problems noted. Brother No problems noted. Daughter No problems noted. Son No problems noted. Son Diabetes Other Heart disease Hypertension Social History Smoking Status: Current every day smoker Tobacco Type: Cigarettes packs per day: 0.5; Cigarettes Per Day: pack per day; Do You Dip or Chew Tobacco: No; Hx Alcohol Use: Yes Alcohol type: beer Alcohol Intake Frequency: Monthly or Less Hx Substance Use: Yes Prescribed Medications: Marijuana Last Used Substance: Just Prior to Arrival Last Used Substance Other:: marijuana 01/10 Preferred Language: Montserratian Communication Ability: Effective Visual Impairment: No Limitations Hearing Ability: Normal Paradi Tender Required: No Beliefs That Will Affect Care: None marital status: Current Living Situation: Spouse and Family Current Living Situation Comment: , daughter/her spouse current occupational status: retired Feels Safe at Home: Yes Diet: regular caffeine: No during the past year weight has: decreased > 10 lbs Assistive Devices: None Review of Systems Review of Systems: At least ten systems reviewed and negative except as noted in the HPI. Physical Exam Physical Exam: General Appearance: WD/WN, vitals as above, NAD, + pale, appears chronically ill Head: normocephalic, atraumatic Eyes: normal inspection, PERRL, conjunctivae normal, anicteric sclerae ENT: external ear and nose normal, dry mucous membranes of oropharynx Neck: normal visual inspection, trachea midline, no thyromegaly Respiratory: normal respiratory effort, lungs clear to auscultation, no wheeze, rales, rhonchi. No accessory muscle use Cardiovascular: regular rate, rhythm, no murmur, normal peripheral pulses, no BLE edema. Vessels: no JVD Chest: normal inspection of chest Abdomen/GI: normal bowel sounds, soft, nontender, no hepatosplenomegaly Extremities/Musculoskeletal: no cyanosis or clubbing, extremities motor strength 5/5, scattered bruising on BUE Neurologic: PERRL, EOMI, accommodation nl, no face palsy, no dysarthria, CN's II-XI intact bilaterally and moves all extremities Psychiatric: A+Ox3, euthymic affect Skin: no rashes, normal color, warm/dry Results & Data Results & Data Vital Signs (Past 12 Hours) Vital Signs Temp Pulse Pulse Resp BP BP Pulse Ox 02/15/24 15:47 89 16 126/79 100 02/15/24 14:28 96 H 02/15/24 14:10 36.5 C 126 H 20 103/67 100 O2 Del Method 02/15/24 15:47 Room Air 02/15/24 14:28 02/15/24 14:10 Room Air Laboratory Results Short CBC 02/15/24 Range/Units 14:37 WBC 3.98 L (4.8-10.8) K/ul Hgb 6.6 L* (14.0-18.0) g/dl Hct 21.3 L (42.0-52.0) % Plt Count 117 L (130-400) K/uL BMP 02/15/24 14:37 Sodium 142 Potassium 3.5 Chloride 113 H Carbon Dioxide 20 L BUN 19 Creatinine 1.85 H Glucose 129 H Calcium 7.0 L Liver Function 02/15/24 Range/Units 14:37 Total Bilirubin 0.3 (0.2-1.0) mg/dl AST 27 (13-39) U/L ALT 8 (7-52) U/L Alkaline Phosphatase 316 H (34-104) U/L Albumin 3.4 (3.4-5.0) gm/dl Diagnostic Findings Chest X-Ray 02/15/24 14:14 XR chest 1V portable HISTORY: 63 years-old Male sob acute shortness of breath COMPARISON: 01/11/2024 TECHNIQUE: AP view of the chest FINDINGS: Cardiomediastinal and hilar silhouettes are within normal limits. No pneumothorax, pleural effusion, airspace consolidation or pulmonary edema. Degenerative changes of the shoulders and spine. IMPRESSION: No acute process. ACT 112: Negative or not required by law. The above report was generated using voice recognition software. It may contain grammatical, syntax or spelling errors. Electronically signed by: Mejia Kowalski M.D. 02/15/2024 2:38 PM ECG Additional Comments: EKG reviewed - sinus tachycardia with occasional PVCs, otherwise normal
[2024-02-15] MEDS ORDERED: MoRPHine SULFATE CR 15 MG TABCR PO PRN (16:56)
--- NOTE | 2024-02-15 17:49 | Emergency Department Note ---
History of Present Illness General Chief complaint: Referred by Doctor Stated complaint: LOW KIDNEY FUNCTION, REF BY DOC Time Seen by Provider: 02/15/24 14:21 History of Present Illness Maximum Pain Intensity: 6 This is a 63-year-old male that presents to the emergency department via private vehicle with complaints of "abnormal kidney function, referred by oncologist". The patient states that he had laboratory studies performed yesterday as well as today with his oncologist. He states that he was referred here today noting the labs show a worsening kidney function as well as decreasing hemoglobin. The patient follows with Dr. Queen at [facility]. The patient notes he feels perhaps a little short of breath. No fevers. No chest pain. When he stands he notes that he feels a little bit "woozy". Patient denies any history of blood transfusions. Home Medications Medication Instructions Recorded Confirmed Type atorvastatin 80 mg tablet 80 mg PO QPM 04/23/19 02/15/24 History alfuzosin 10 mg tablet,extended 10 mg PO QAM 05/31/21 02/15/24 History release 24 hr (Uroxatral) empagliflozin 25 mg tablet 25 mg PO QAM 05/31/21 02/15/24 History (Jardiance) aspirin 81 mg tablet,delayed 81 mg PO QAM #30 tabs 06/03/21 02/15/24 Rx release acetaminophen 500 mg tablet 500 - 1,000 mg PO Q6H PRN Pain 12/06/22 02/15/24 History (Tylenol Extra Strength) clopidogrel 75 mg tablet 75 mg PO QAM 12/06/22 02/15/24 History denosumab 120 mg/1.7 mL (70 mg/mL) 120 mg subcut MONTHLY 12/06/22 02/15/24 History subcutaneous solution (Xgeva) linagliptin 5 mg tablet (Tradjenta) 5 mg PO QAM 12/06/22 02/15/24 History sacubitril 24 mg-valsartan 26 mg 1 tab PO BID 12/06/22 02/15/24 History tablet (Entresto) tramadol 50 mg tablet 300 mg PO BID pain 08/01/23 02/15/24 History morphine 15 mg immediate release 15 mg PO BID PRN Pain 01/11/24 02/15/24 History tablet ondansetron HCl 8 mg tablet 8 mg PO DIRECTED PRN Nausea 01/11/24 02/15/24 History potassium phosphate, monobasic 500 500 mg PO BID 01/11/24 02/15/24 History mg soluble tablet (K-Phos Original) prochlorperazine maleate 10 mg 10 mg PO DIRECTED PRN Nausea 01/11/24 02/15/24 History tablet calcium carbonate 600 mg-vitamin 3 tab PO QAM 02/15/24 02/15/24 History D3 20 mcg (800 unit) chewable tablet (Caltrate 600 plus D) morphine 15 mg tablet,extended 15 mg PO DAILY PRN Pain 02/15/24 02/15/24 History release Allergies Allergy/AdvReac Type Severity Reaction Status Date / Time amoxicillin [From Augmentin] AdvReac Intermediate DIZZINESS/C Verified 02/15/24 15:57 ONFUSION clavulanic acid AdvReac Intermediate DIZZINESS/C Verified 02/15/24 15:57 [From Augmentin] ONFUSION codeine AdvReac Intermediate Gastrointestinal Verified 02/15/24 15:57 Upset Past Med/Surg History Problem List (Updated 02/15/24 @ 17:58 by Zachary Ceja PA-C) Symptomatic anemia (Acute) History of CVA (cerebrovascular accident) HFrEF (heart failure with reduced ejection fraction) Acute on chronic anemia (Acute) Acute renal failure superimposed on stage 3 chronic kidney disease (Acute) Pancytopenia due to chemotherapy Adult failure to thrive (Acute) Elevated troponin (Acute) Prostate cancer metastatic to bone (Chronic) Prostate cancer Biopsy on 06/10/21 Tobacco abuse (Chronic) HLD (hyperlipidemia) (Chronic) HTN (hypertension) (Chronic) DM2 (diabetes mellitus, type 2) (Chronic) PAD (peripheral artery disease) BPH with obstruction/lower urinary tract symptoms (Acute) Medical History History of left heart catheterization (LHC) "cardiac cath -02/04 10-20% block" Stroke Surgical History History of left common carotid artery stent placement Family History Mother , in her 80s Myocardial infarction H/O cardiac surgery Diabetes Father , 58yo Myocardial infarction Lung disease From working in [employer]; Brother No problems noted. Brother No problems noted. Brother No problems noted. Brother No problems noted. Brother No problems noted. Daughter No problems noted. Son No problems noted. Son Diabetes Other Heart disease Hypertension Social History Smoking Status: Current every day smoker Tobacco Type: Cigarettes packs per day: 0.5; Cigarettes Per Day: pack per day; Do You Dip or Chew Tobacco: No; Hx Alcohol Use: Yes Alcohol type: beer Alcohol Intake Frequency: Monthly or Less Hx Substance Use: Yes Prescribed Medications: Marijuana Last Used Substance: Just Prior to Arrival Last Used Substance Other:: marijuana 01/10 Preferred Language: Jamaican Communication Ability: Effective Visual Impairment: No Limitations Hearing Ability: Normal Wood Casket Maker Required: No Beliefs That Will Affect Care: None marital status: Current Living Situation: Spouse and Family Current Living Situation Comment: , daughter/her spouse current occupational status: retired Feels Safe at Home: Yes Diet: regular caffeine: No during the past year weight has: decreased > 10 lbs Assistive Devices: None Review of Systems A total of 10 systems reviewed and were otherwise negative Physical Exam Vital Signs Vital Signs - 24 hr 02/15/24 14:10 02/15/24 14:28 02/15/24 15:47 Temperature 36.5 C Temperature Source Temporal Artery Scan Pulse Rate 126 H 96 H Pulse Rate [Apical] 89 Respiratory Rate 20 16 Respiratory Effort / Characteristics Non-Labored Non-Labored Spontaneous Respiratory Depth Normal Normal Respiratory Pattern Regular Blood Pressure 103/67 Blood Pressure [Right Arm] 126/79 Blood Pressure Mean 79 Blood Pressure Mean [Right Arm] 94 Blood Pressure Position Sitting Pulse Oximetry 100 100 Oxygen Delivery Method Room Air Room Air Sepsis Recent Fever Within 48 Hours No Sepsis New/Unexplained Change in Mental Status N/A Sepsis Action Taken by Nursing No Action Required 02/15/24 16:10 02/15/24 16:35 02/15/24 16:50 Temperature 36.8 C 36.6 C 36.7 C Temperature Source Oral Temporal Artery Scan Oral Pulse Rate 88 101 H 83 Pulse Rate [Apical] Respiratory Rate 19 15 16 Respiratory Effort / Characteristics Respiratory Depth Respiratory Pattern Blood Pressure 134/69 136/87 136/86 Blood Pressure [Right Arm] Blood Pressure Mean 90 103 102 Blood Pressure Mean [Right Arm] Blood Pressure Position Pulse Oximetry 97 100 Oxygen Delivery Method Sepsis Recent Fever Within 48 Hours Sepsis New/Unexplained Change in Mental Status Sepsis Action Taken by Nursing 02/15/24 17:00 02/15/24 17:20 02/15/24 18:20 Temperature 36.9 C Temperature Source Oral Pulse Rate 87 90 Pulse Rate [Apical] 90 Respiratory Rate 15 16 22 Respiratory Effort / Characteristics Respiratory Depth Respiratory Pattern Blood Pressure 125/82 139/83 Blood Pressure [Right Arm] 125/82 Blood Pressure Mean 96 101 Blood Pressure Mean [Right Arm] 96 Blood Pressure Position Pulse Oximetry 99 98 98 Oxygen Delivery Method Room Air Sepsis Recent Fever Within 48 Hours Sepsis New/Unexplained Change in Mental Status Sepsis Action Taken by Nursing 02/15/24 19:00 02/15/24 21:05 Temperature Temperature Source Pulse Rate 90 Pulse Rate [Apical] 91 H Respiratory Rate 19 Respiratory Effort / Characteristics Non-Labored Spontaneous Respiratory Depth Normal Respiratory Pattern Blood Pressure Blood Pressure [Right Arm] 127/72 Blood Pressure Mean Blood Pressure Mean [Right Arm] 90 Blood Pressure Position Pulse Oximetry 97 Oxygen Delivery Method Room Air Sepsis Recent Fever Within 48 Hours Sepsis New/Unexplained Change in Mental Status Sepsis Action Taken by Nursing VITAL SIGNS - Vital signs and nursing notes were reviewed. Stable and afebrile. GENERAL -63-year-old male appearing his stated age who is in no acute distress. Communicates well with provider and answers questions appropriately. SKIN -patient is pale in appearance. HEAD - NC/AT. EYES - PERRL with EOMI bilaterally. Sclera anicteric. EARS - No deformities of external structures noted on gross examination bilaterally. NOSE - Midline and without cyanosis. No epistaxis or purulent drainage noted. MOUTH/OROPHARYNX - Without perioral cyanosis. NECK - Neck with FROM. No nuchal rigidity. LUNGS - Chest wall symmetric without accessory muscle use, intercostals retractions, or central cyanosis. Normal vesicular breath sounds CTA B/L. No wheezes, rales, or rhonchi appreciated. CARDIAC - RRR EXTREMITIES - No clubbing or peripheral cyanosis. +5/5 strength noted in UE/LE bilaterally. NEUROLOGIC - Cranial nerves II through XII grossly intact. PSYCH -alert, oriented and pleasant on exam Course Administered Medications Tramadol HCl (Tramadol Hcl 50 Mg Tablet) 150 mg PO BID GENIA Stop: 03/16/24 20:59 Last Admin: 02/15/24 20:04 Dose: 150 mg Documented By: [facility] Medical Decision Making Laboratory Data 02/15/24 20:24 02/15/24 14:37 Lab Results 02/15/24 02/15/24 02/15/24 Range/Units 14:37 15:14 20:24 WBC 3.98 L (4.8-10.8) K/ul RBC 2.25 L (4.70-6.10) M/uL Hgb 6.6 L* 7.4 L (14.0-18.0) g/dl Hct 21.3 L 23.6 L (42.0-52.0) % MCV 94.7 (80.0-100.0) fL MCH 29.3 (25.0-34.0) pg MCHC 31.0 L (32.0-36.0) g/dL RDW Std Deviation 73.0 H (36.4-46.3) fL RDW Coeff of Clara 21.0 H (11.5-14.5) % Plt Count 117 L (130-400) K/uL MPV 9.7 (9.4-12.4) fL Immature Gran % (Auto) 4.3 % Neut % (Auto) 72.6 % Lymph % (Auto) 13.3 % Nelson % (Auto) 8.8 % Eos % (Auto) 0.5 % Baso % (Auto) 0.5 % Neut # (Auto) 2.89 (1.40-6.50) K/uL Lymph # (Auto) 0.53 L (1.20-3.40) K/uL Nelson # (Auto) 0.35 (0.11-0.59) K/uL Eos # (Auto) 0.02 (0.00-0.50) K/uL Baso # (Auto) 0.02 (0.00-0.20) K/uL Immature Gran # (Auto) 0.17 (0.01-0.20) K/uL Absolute Nucleated RBC 0.02 (0.00-0.12) K/uL Nucleated RBC % (auto) 0.5 % Anisocytosis Present Sodium 142 (136-145) mmol/L Potassium 3.5 (3.5-5.1) mmol/L Chloride 113 H (98-107) mmol/L Carbon Dioxide 20 L (21-32) mmol/L Anion Gap 9 (3-11) BUN 19 (6-23) mg/dl Creatinine 1.85 H (0.6-1.4) mg/dl Est Cr Clr Drug Dosing 32.8 ml/min Est GFR ( Amer) 43.6 ml/min Est GFR (Non-Af Amer) 37.6 ml/min BUN/Creatinine Ratio 10.3 (10-20) Glucose 129 H (70-99(Fasting)) mg/dl Calcium 7.0 L (8.6-10.3) mg/dl Total Bilirubin 0.3 (0.2-1.0) mg/dl AST 27 (13-39) U/L ALT 8 (7-52) U/L Alkaline Phosphatase 316 H (34-104) U/L Troponin I High Sens 78.4 H* (0-20) pg/ml Total Protein 6.3 (6.0-8.3) gm/dl Albumin 3.4 (3.4-5.0) gm/dl Globulin 2.9 (2.5-4.0) gm/dl Albumin/Globulin Ratio 1.2 (0.9-2) Blood Type A Positive Blood Type Recheck A Positive Antibody Screen NEGATIVE Crossmatch See Detail Imaging Data Radiologist's Impression: Chest X-Ray 02/15/24 14:14 XR chest 1V portable HISTORY: 63 years-old Male sob acute shortness of breath COMPARISON: 01/11/2024 TECHNIQUE: AP view of the chest FINDINGS: Cardiomediastinal and hilar silhouettes are within normal limits. No pneumothorax, pleural effusion, airspace consolidation or pulmonary edema. Degenerative changes of the shoulders and spine. IMPRESSION: No acute process. ACT 112: Negative or not required by law. The above report was generated using voice recognition software. It may contain grammatical, syntax or spelling errors. Electronically signed by: Mejia Kowalski M.D. 02/15/2024 2:[address] [facility] Narrative Patient was seen and evaluated as above in room D02. Review was performed of triage nursing notes and vital signs. I did review pertinent previous visits and patient history. After obtaining a thorough history and physical examination the above work up was performed. Patient presents to us today for evaluation of decreasing hemoglobin as well as rising creatinine. The patient is overall pale in appearance but with stable vital signs. Tachycardic on arrival but that had resolved when evaluating at bedside. EKG was performed and reveals sinus tachycardia at a rate of 109 bpm. QTc 484. QRS 92. There is no ST elevation. CXR negative for acute process. Labs reveal pancytopenia with a hemoglobin of 6.6 which is decreased compared to previous. This value is compared to the reported hemoglobin yesterday that was 7.7 and now today 7.3 as performed as within the [employer] system. Per review of our EMR, the patient was with a hemoglobin of 7.5 about 1 month ago. The alk phos is elevated at 316. Hypocalcemia 7.0. Glucose 129. Troponin 78.4 but likely in the setting of symptomatic anemia and not representing ACS. There is no chest pain. Type and screen/type and cross performed and patient consented for blood. 1 unit ordered with 1 on hold. Case discussed with the hospitalist service. Patient will require hospitalization. Please refer to further documentation regarding his stay. GCS: 15 In the evaluation and treatment of this patient the following differential diagnoses were entertained: Symptomatic anemia, acute GI bleed, anemia of chronic disease, dehydration, ACS, among others. Impression & Plan Symptomatic anemia, Elevated troponin, Acute renal failure superimposed on stage 3 chronic kidney disease, Acute on chronic anemia Discharge Plan Visit Data Chief Complaint: Referred by Doctor Stated Complaint: LOW KIDNEY FUNCTION, REF BY DOC ED Provider: [facility] Midlevel Provider: Zachary Ceja Discharge Problem: Symptomatic anemia, Elevated troponin, Acute renal failure superimposed on stage 3 chronic kidney disease, Acute on chronic anemia Patient Disposition: Admitted As Inpatient Condition: Good Forms Stand Alone Forms: My [facility] Prescriptions Prescriptions: No Action acetaminophen [Tylenol Extra Strength] 500 mg tablet 500 - 1,000 mg PO Q6H PRN (Reason: Pain) Xgeva 120 mg/1.7 mL (70 mg/mL) solution 120 mg subcut MONTHLY Rx Instructions: Calcium has been too low for injections. - last received in Oct- Nov Entresto 24-26 mg tablet 1 tab PO BID Tradjenta 5 mg tablet 5 mg PO QAM clopidogrel 75 mg tablet 75 mg PO QAM tramadol 50 mg tablet 300 mg PO BID atorvastatin 80 mg Tablet 80 mg PO QPM alfuzosin [Uroxatral] 10 mg tablet extended release 24 hr 10 mg PO QAM Jardiance 25 mg tablet 25 mg PO QAM aspirin 81 mg Tablet,Delayed Release (Dr/Ec) 81 mg PO QAM Qty: 30 0RF Rx Instructions: ALWAYS WITH FOOD ondansetron HCl 8 mg Tablet 8 mg PO DIRECTED PRN (Reason: Nausea) prochlorperazine maleate 10 mg tablet 10 mg PO DIRECTED PRN (Reason: Nausea) morphine 15 mg tablet 15 mg PO BID PRN (Reason: Pain) Rx Instructions: Pt will sometimes cut tablet into 4 equal pieces and take 1/4th of tablet. K-Phos Original 500 mg tablet,soluble 500 mg PO BID morphine 15 mg Tablet Extended Release 15 mg PO DAILY PRN (Reason: Pain) Caltrate 600 plus D 600 mg-20 mcg (800 unit) Tablet,Chewable 3 tab PO QAM Referrals Referrals: Dru Fritz MD [Primary Care Provider] -
[2024-02-15] MEDS: traMADol HCL 50 MG TABLET PO SCH (20:04)
[2024-02-15 20:57] LABS: Hematocrit (blood only) 23.6 % (42.0-52.0); Hemoglobin 7.4 g/dl (14.0-18.0)
[2024-02-15] MEDS ORDERED: [UNRECOGNIZED DRUG - OTHER] PO SCH (21:00)
[2024-02-15] MEDS ORDERED: MELATONIN 3 MG TAB PO PRN (22:34)
[2024-02-15] MEDS: MoRPHine SULFATE IR 15 MG TAB (IMMEDIATE RELEASE) PO PRN (22:45)
[2024-02-15] MEDS ORDERED: DEXTROSE 50% 50 ML SYRINGE IV PRN (23:57)
[2024-02-15] MEDS ORDERED: ONDANSETRON INJ 2 MG/ML 2 ML VIAL IV PRN (23:57)
[2024-02-15] MEDS ORDERED: CARBOHYDRATES FOR HYPOGLYCEMIA PO PRN (23:57)
[2024-02-15] MEDS ORDERED: GLUCAGON FOR INJ 1 MG VIAL SQ PRN (23:57)
[2024-02-15] MEDS ORDERED: GLUCOSE 40% GEL 15 GM TUBE PO PRN (23:57)
[2024-02-15] MEDS ORDERED: GLUCOSE 10 TAB/TUBE PO PRN (23:57)
[2024-02-16] MEDS: VALSARTAN/SACUBITRIL 26/24MG TAB PO SCH (00:27)
[2024-02-16] MEDS: INSULIN ASPART PER UNIT CHARGE SC SCH (00:27)
[2024-02-16] MEDS: ATORVASTATIN 40 MG TAB PO SCH (00:27)
[2024-02-16 07:00] LABS: BUN Creatinine Ratio 10.1 (10-20); Calcium 6.5 mg/dl (8.6-10.3); Creatinine Clr Calc Pharmacy 35.3 ml/min; Est GFR (African American) 45.4 ml/min; Est GFR (Non-African American) 39.2 ml/min; Potassium 3.6 mmol/L (3.5-5.1)
[2024-02-16 07:04] LABS: Hemoglobin 8.3 g/dl (14.0-18.0); Mean Corpuscular Hemoglobin 29.2 pg (25.0-34.0); Mean Corpuscular Hgb Conc 31.9 g/dL (32.0-36.0); Mean Corpuscular Volume 91.5 fL (80.0-100.0); Nucleated RBC # (auto) 0.02 K/uL (0.00-0.12); Nucleated RBC % (auto) 0.5 %; Platelet Count 106 K/uL (130-400); RDW Standard Deviation 63.6 fL (36.4-46.3); Red Blood Count 2.84 M/uL (4.70-6.10); White Blood Count 3.91 K/ul (4.8-10.8)
[2024-02-16 07:12] LABS: Troponin I High Sensitivity 85.9 pg/ml (0-20)
[2024-02-16] MEDS: ASPIRIN 81 MG ECTAB PO SCH (08:01)
[2024-02-16] MEDS: CLOPIDOGREL BISULFATE 75 MG TAB PO SCH (08:01)
[2024-02-16] MEDS: TAMSULOSIN HCL 0.4 MG CAP PO SCH (08:01)
[2024-02-16] MEDS: CALCIUM 600MG + VIT D 400 IU TAB PO SCH (08:02)
[2024-02-16] MEDS ORDERED: CALCIUM CARBONATE 500 MG CHEWABLE TAB PO SCH (09:00)
[2024-02-16] MEDS: CALCIUM GLUCONATE 1,000 MG/60 ML BAG IV ONE (09:20)
--- NOTE | 2024-02-16 10:19 | Electrocardiogram Report ---
Test Reason : Blood Pressure : / mmHG Vent. Rate : 109 BPM Atrial Rate : 109 BPM P-R Int : 158 ms QRS Dur : 092 ms QT Int : 360 ms P-R-T Axes : 069 072 051 degrees QTc Int : 484 ms Sinus tachycardia with occasional Premature ventricular complexes Otherwise normal ECG When compared with ECG of 11-JAN-2024 12:44, Premature ventricular complexes are now Present Confirmed by Jason Workman ([id number]) on 02/16/2024 10:19:14 AM Referred By: Gayle Queen Confirmed By:Jason Workman
[2024-02-16] MEDS: LACTATED RINGER'S 1,000 ML IV SCH (11:27)
[2024-02-16] MEDS: MAGNESIUM SULFATE / D5W 1 GM/100 ML BAG IV ONE (12:07)
[2024-02-16] MEDS: POTASSIUM CHLORIDE CRTAB 20 MEQ TABCR PO ONE (12:07)
--- NOTE | 2024-02-16 15:15 | Hospitalist Progress Note ---
Date of Service February 16, 2024 Assessment & Plan (1) Acute on chronic anemia: (2) Pancytopenia due to chemotherapy: Plan: Patient is 63 yr male with H/O Metastatic prostate cancer on chemotherapy, type 2 diabetes, PAD, HFrEF, hypertension, CKD 3, history of CVA, tobacco use disorder and other medical problems listed below who was directed from heme-onc clinic due to worsening anemia and renal function since outpatient labs yesterday. 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 Needs follow-up with oncology on discharge Hypocalcemia Chronic Continue calcium, vitamin D supplements Monitor calcium levels (3) Prostate cancer metastatic to bone: Plan: Ongoing cancer treatment, previously on chemo (discontinued in November), [place] [facility] [place] 01/[place] but subsequent treatment was postponed due to anemia Reports chronic bone and Pelvic Pain Pain control Needs follow-up with oncology on discharge (4) Acute renal failure superimposed on stage 3 chronic kidney disease: Plan: Baseline Cr~ 1.3 Renal toxicity listed as side effect from Plucivto Clinically dehydrated Continue IV fluids Monitor renal function Avoid nephrotoxic agents as able Cr 1.7 today (5) Elevated troponin: Plan: Likely demand ischemia in setting of anemia Denies chest pain EKG reviewed - sinus tachycardia with occasional PVCs, otherwise normal PVCs Monitor and replace electrolytes as needed (6) HFrEF (heart failure with reduced ejection fraction): Plan: ECHO from Aug 2023 shows EF 48% (improved from previous), no valvular abnormalities Continue Entresto, statin (7) DM2 (diabetes mellitus, type 2): Plan: HbA1c 6.3 in November 2023 Hold home agents Continue insulin while hospitalized Monitor BGs (8) PAD (peripheral artery disease): Plan: Continue aspirin, statin, Plavix (9) History of CVA (cerebrovascular accident): Plan: Continue aspirin, Plavix, Statin (10) BPH with obstruction/lower urinary tract symptoms: Plan: Continue alfuzosin, bladder scan PRN DVT Px: SCDs Re: Anemia, thrombocytopenia Code status: FULL CODE Admission and Anticipated Discharge Date Admission Date: February 15, 2024 Subjective Patient is seen and examined at bedside States feeling better today Generalized weakness improving Denies any bleeding issues Reports chronic groin pain which he attributes to prostate issues Family at bedside Renal function slowly improving Denies chest pain, dyspnea, nausea, vomiting, abdominal pain No new complaints Review of Systems Review of Systems: All systems reviewed & are unremarkable except as noted in Subjective Physical Exam Physical Exam: Physical Exam: Vitals signs as noted above General Appearance:Thin, frail, chronic ill appearing, no apparent distress Head: normocephalic, Atraumatic Eyes: normal inspection, EOMI Neck: supple, Trachea midline Respiratory/Chest: Normal breath sounds, CTA, No accessory muscle use Cardiovascular: S1, S2, No murmur Abdomen/GI:Soft, Non tender, Bowel sounds present Extremities/Musculoskeletal:normal inspection, no edema Neurologic/Psych:AAOX3, grossly no focal neurological deficits Skin: normal color, warm Results & Data Results & Data Vital Signs (Past 12 Hours) Vital Signs Temp Pulse Pulse Resp BP Pulse Ox O2 Del Method 02/16/24 10:58 36.8 C 86 15 145/75 H 95 Room Air 02/16/24 10:17 93 H 02/16/24 07:16 36.8 C 88 14 125/72 95 Room Air 02/16/24 04:02 36.9 C 85 20 119/70 94 Room Air Laboratory Results Short CBC 02/15/24 02/15/24 02/16/24 Range/Units 14:37 20:24 06:00 WBC 3.98 L 3.91 L (4.8-10.8) K/ul Hgb 6.6 L* 7.4 L 8.3 L (14.0-18.0) g/dl Hct 21.3 L 23.6 L 26.0 L (42.0-52.0) % Plt Count 117 L 106 L (130-400) K/uL BMP 02/15/24 02/16/24 14:37 06:00 Sodium 142 141 Potassium 3.5 3.6 Chloride 113 H 113 H Carbon Dioxide 20 L 18 L BUN 19 18 Creatinine 1.85 H 1.79 H Glucose 129 H 109 H Calcium 7.0 L 6.5 L Liver Function 02/15/24 Range/Units 14:37 Total Bilirubin 0.3 (0.2-1.0) mg/dl AST 27 (13-39) U/L ALT 8 (7-52) U/L Alkaline Phosphatase 316 H (34-104) U/L Albumin 3.4 (3.4-5.0) gm/dl
--- OUTSIDE RECORDS SUMMARY | 2024-02-16 20:44 | External Medical Summary ---
Author Name Unknown Address Unknown Organization [id number]:[facility] [id number] [place] [address] Laboratory Report Ordering Provider Test Date Status PATRICE QUINONES 02/15/2024 12:27:44 Final Observation Date Value Abnormality Reference (Units ) Status BUN 02/15/2024 12:27:44 19 6-20 (mg/dL) Final Creatinine 02/15/2024 12:27:44 1.9 Above high normal 0.6-1.2 (mg/dL) Final Glomerular filtration rate/1.73 sq M.predicted [Volume Rate/Area] in Serum, Plasma or Blood by Creatinine-based formula (CKD-EPI) 02/15/2024 12:27:44 39 Below low normal >=60 (mL/min) Final eGFR is calculated based on the CKD-EPI 2020 equation Sodium 02/15/2024 12:27:44 143 135-146 (m mol/L) Final Potassium 02/15/2024 12:27:44 3.8 3.5-5.1 (m mol/L) Final Cl 02/15/2024 12:27:44 108 Above high normal 98 -107 (mmol/L) Final CO2 02/15/2024 12:27:44 20 Below low normal 22- 32 (mmol/L) Final Anion gap 02/15/2024 12:27:44 15 7-15 (mmol /L) Final Glucose 02/15/2024 12:27:44 179 Above high normal 70 -120 (mg/dL) Final Albumin 02/15/2024 12:27:44 3.5 Below low normal 3.8 -5.0 (g/dL) Final AST (Aspartate aminotransferase) 02/15/2024 12:27:44 70 Above high normal 10-50 (U/L) Final Alk Phos 02/15/2024 12:27:44 372 Above high normal 35 -130 (U/L) Final Bilirubin, Total 02/15/2024 12:27:44 0.2 <=1 .2 (mg/dL) Final Calcium 02/15/2024 12:27:44 6.9 Below low normal 8.4 -10.2 (mg/dL) Final Protein 02/15/2024 12:27:44 6.8 6.0-8.3 (g /dL) Final ALT (Alanine aminotransferase) 02/15/2024 12:27:44 10 10-50 (U/L) Hilton harrell Performing Location [facility] [address] [place] [address]
--- OUTSIDE RECORDS SUMMARY | 2024-02-16 20:44 | External Medical Summary | Summary of Care ---
Author Name Unknown Organization [facility] Address [address] [place] [address] Phone [phone] Care Team Providers Care Toddler Teacher Name Role Phone Dru Fritz MD Primary Care Provider [phone] Reason for Visit * Reason Comments Infusion Hydration Nurse Documentation Held Xgeva Encounter Details Date Type Department Care Team (Late st Contact Info) Description 02/14/2024 2:00 PM EDT Immunization/I njection Hematology/Oncology Treatment, [place] [address] [facility] [place] [address] Nurse, Med [address] [place] [address] Malignant neoplasm metastatic to bone (HCC)*; Prostate cancer metastatic to multiple sites (HCC) Allergies Active Allergy Reactions Criticality Noted Date Comments Amoxicillin-Pot Clavulanate 05/17/20 22 Dizziness and confused documented as of this encounter (statuses as of 02/14/2024) Medications Medication Sig Dispensed Refills Start Date End Date Status ChatterPlug ULTRA SYSTEM W/DEVICE KITIndications:DM type 2, goal [...] without long-term current use of insulin ([facility]) TAKE ONE TABLET BY MOUTH DAILY IN [...] MORNING 90 Tablet 1 12/10/2023 12/09/2024 Active PARoxetine HCl 10 MG Oral Tablet (Paxil) Take 1 Tablet by mouth in the morning. 90 Tablet 3 12/26/2023 Active Clopidogrel Bisulfate 75 MG Oral Tablet (pLAVix) TAKE ONE TABLET BY MOUTH IN THE MORNING 30 Tablet 5 01/06/2024 01/05/2025 Active FLUoxetine HCl 20 MG Oral Capsule (PROzac) Take 1 Capsule by mouth in the morning. 90 Capsule 3 01/16/2024 Active Morphine Sulfate 15 MG Oral Tablet (Msir)Indications:Ma lignant neoplasm metastatic to bone (HCC) Take 1 Tablet by mouth in the morning and 1 Tablet before bedtime. 60 Tablet 0 02/12/2024 Active traMADol HCl 50 MG Oral Tablet (Ultram)Indications: Malignant neoplasm metastatic to bone (HCC) Take 2 Tablets by mouth 3 times a day as needed for moderate pain. 180 Tablet 0 02/12/2024 Active documented as of this encounter (statuses as of 02/14/2024) Active Problems Problem Noted Date Diagnosed Date [...] as of this encounter (statuses as of 02/14/2024) Resolved Problems Problem Noted Date Diagnosed Date [...] as of this encounter (statuses as of 02/14/2024) Immunizations No known immunizationsdocumented as of this [...] Sign Reading Time Taken Comments Blood Pressure 105/65 02/14/2024 1:31 PM EDT Pulse 118 02/14/2024 1:31 PM EDT Temperature 36.9 C (98.5 F) 02/14/2024 1:31 PM ED T Respiratory Rate 18 02/14/2024 1:31 PM EDT Oxygen Saturation 98% 02/14/2024 1:31 PM EDT Inhaled Oxygen Concentration - - Weight - [...] of this encounter Nursing Notes * Tash Mcintyre, JYOTI - 02/14/2024 2:34 PM EDT 1330: Pt arrived for Xgeva injection. Arie-6.5, Phos 2.6. Held Xgeva per parameters. concerned that patient isnt drinking and is worried about dehydration. Pts creatine 1.5. HR 118, BP low. [place] nurse specialist and per ABSTRACT MANAGER to give 1 L hydration. PIV in LFA. Pt tolerated well. Pt is to return tomorrow for labs and possible hydration. Pt resting quietly at this time. 1545: Pt tolerated Hydration well. PIV removed intact. Pt to return tomorrow for labs and possibly hydration. Discharged in stable condition with at side. documented in this encounter Plan of Treatment Upcoming Encounters Date Type Department Care Team (Late st Contact Info) Description 02/15/2024 12:00 PM EDT Laboratory Laboratory [facility] Monika Melara [address] [place] [phone] Saritha, Lab [facility] [address] [place] [address] 02/15/2024 12:15 PM EDT Nurse Only Hematology/Oncology [facility] Monika Melara [address] [place] [phone] Saritha, Nurse Hem Onc [facility] [address] [place] [address] 02/29/2024 1:00 PM EDT Hospital Encounter Radiology, [address] [id number] 03/06/2024 11:30 AM EDT Office Visit Hematology/Oncology [facility] Monika Melara [address] [place] [phone] Pastora Aguilar CRNP [address] [facility] [place] [address] 05/08/2024 11:00 AM EDT Laboratory Laboratory [facility] Saritha [place] [address] [place] [phone] Saritha Lab [facility] [address] [place] [address] 05/08/2024 11:45 AM EDT Immunization/Injecti on Hematology/Oncology Treatment, [place] [address] [place] [phone] Nurse, Med [address] [place] [address] 05/20/2024 2:15 PM EDT Office Visit Urology, [facility] [address] [facility] [place] [address] Isaías Novak MD [address] [place] [address] 07/01/2024 4:00 PM EDT Office Visit Family Practice [facility] [address] [facility] [place] [address] Dru Fritz MD [address] [facility] [place] [address] Health Maintenance Due Date Last Done Comments DISCUSS TOBACCO CESSATION (REFER TO SMARTSET #2003) 1960 COVID-19 Vaccine (#1) 1965 Pneumococcal Vaccine: [...] 12/14/2023, 12/30, 05/15/2022, Additional history exists GFR 08/16/2024 02/14/2024, 12/31, 01/17/2024, Additional history exists CKD HGB USE SMARTSET 25704 02/13/202502/13, 02/14/2024, 01/24/2024, Additional history exists CKD PHOS USE SMARTSET 14601 02/13/202501/29, 01/24/2024, 01/17/2024, Additional history exists GARDASIL-HPV IMMUNIZATION SERIES Aged Out No longer eligible based on patient's age to complete this topic Hepatitis B Aged Out No longer eligi ble based on patient's age to complete this topic MENINGOCOCCAL (MENACTRA/MENVEO) Aged Out No longer eligible based on patient's age to complete this topic documented as of this encounter Medical Devices Implanted Type Area Perpetual Inventory Clerk Device Identifier Shelf Expiration Date Model / Serial / Lot Stent Trnscarotid Enroute 7x40 - [id number] Implanted:Qty: 1 on 01/25/2021 by Zeinab Robert MD at [facility] Left: [facility] [id number] 05/31/2023 SR-0740-C S / / [id number] documented as of this encounter Visit Diagnoses [...] PRN Other, IV Flush, Starting on Chantel 02/14/24 at 1410, Until Sun02/15/24 at 1409, For 24 hours, Do not flush if lock, PICC, or central line not in place; IV infusing or unable to flush. sodium chloride 0.9 % flush central line 10 mL 10 mL, IV Push, PRN Other, IV Flush, Starting on Chantel 02/14/24 at 1410, Until Sun02/15/24 at 1409, For 24 hours, Do not flush if lock, PICC, or central line not in place; IV infusing or unable to flush. Inactive Administered Medications - up to 3 most recent administrations Medication Order MAR Action Action Date Dose Rate Site NSS infusion FOR HYDRATION Intravenous, at 500 mL/hr Administer over 2 Hours, ONCE, 1 dose, On Chantel 02/14/24 at 1515 Start Infusion 02/14/2024 1:40 PM EDT 1,000 mL 500 mL/hr documented in this encounter Advance Directives Latest Code Status on File Code Status Date Activated Date Inactivated Comments Full Code 01/25/2021 10:53 AM 01/26/2021 1:19 PM This order reflects the patients wishes and were consensually agreed upon. Care Teams Toddler Teacher Relationship Specialty Start Date End Date Dru Fritz MD [address] [place] [address] PCP - General Family Medicine 01/24/21 documented as of this encounter
--- OUTSIDE RECORDS SUMMARY | 2024-02-16 20:44 | External Medical Summary ---
Author Name Unknown Address Unknown Organization K09:[facility] [place] [address] Laboratory Report Ordering Provider Test Date Status PATRICE QUINONES 02/15/2024 12:27:44 Final Observation Date Value Abnormality Reference (Units ) Status SYNC LEUKOCYTES IN BLOOD BY AUTOMATED COUNT 02/15/2024 12:27:44 5.02 4.00-10.80 (K/uL) Final Neutrophils/100 leukocytes in Blood by Manual count 02/15/2024 12:27:44 74.0 40.0-75.0 (%) Final Lymphocytes/100 leukocytes in Blood by Manual count 02/15/2024 12:27:44 15.0 Below low normal 18.0-42.0 (%) Final Monocytes/100 leukocytes in Blood by Manual count 02/15/2024 12:27:44 7.0 1.0-11.0 (%) Final Eosinophils/100 leukocytes in Blood by Manual count 02/15/2024 12:27:44 1.0 0.0-6.0 (%) Final Basophils/100 leukocytes in Blood by Manual count 02/15/2024 12:27:44 1.0 0.0-2.0 (%) Final Metamyelocytes/100 leukocytes in Blood by Manual count 02/15/2024 12:27:44 2.0 Above high normal <=0.0 (%) Final Neutrophils [#/volume] in Blood by Manual count 02/15/2024 12:27:44 3.71 1.80-7.70 (K/uL) Final Lymphocytes [#/volume] in Blood by Manual count 02/15/2024 12:27:44 0.75 Below low normal 1.00-4.80 (K/uL) Final Monocytes [#/volume] in Blood by Manual count 02/15/2024 12:27:44 0.35 0.00-1.10 (K/uL) Final Eosinophils [#/volume] in Blood by Manual count 02/15/2024 12:27:44 0.05 0.00-0.70 (K/uL) Final Basophils [#/volume] in Blood by Manual count 02/15/2024 12:27:44 0.05 0.00-0.20 (K/uL) Final Metamyelocytes [#/volume] in Blood by Manual count 02/15/2024 12:27:44 0.10 Above high normal <=0.00 (K/uL) Final Nucleated erythrocytes/100 leukocytes [Ratio] in Blood by Automated count 02/15/2024 12:27:44 2 Above high normal <=0 (/100 WBCs) Final Performing Location [facility] [address] [place] [address]
--- OUTSIDE RECORDS SUMMARY | 2024-02-16 20:44 | External Medical Summary | Summary of Care ---
Author Name Unknown Organization [facility] Address [address] [place] [address] Phone [phone] Care Team Providers Care Asbestos Cement Sheet Supervisor Name Role Phone Dru Fritz MD Primary Care Provider [phone] Reason for Visit * Reason Onset Date Comments Appointment 02/07/2024 recall Encounter Details Date Type Department Care Team (Late st Contact Info) Description 02/07/2024 Telephone Vascular Surg [facility] [address] [place] [address] Andrew Zheng MD [address], [place] [id number] Appointment (recall) Allergies Active Allergy Reactions Criticality Noted Date Comments Amoxicillin-Pot Clavulanate 05/17/20 22 Dizziness and confused documented as of this encounter (statuses as of 02/14/2024) Medications Medication Sig Dispensed Refills Start Date End Date Status MOOI SYSTEM W/DEVICE KITIndications:DM type 2, goal A1c [...] neuropathy, without long-term current use of insulin ([facility]) TAKE ONE TABLET BY MOUTH DAILY [...] Tablet before bedtime. 60 Tablet 0 12/17/2023 02/11/2024 Discontinue d(Refill) traMADol HCl 50 MG Oral Tablet (Ultram)Indication s:Malignant neoplasm metastatic to bone (HCC) Take 2 Tablets by mouth 3 times a day as needed for Pain, Moderate. 180 Tablet 0 12/31/2023 02/11/2024 Discontinue d(Refill) documented as of this encounter [...] encounter Miscellaneous Notes * Telephone Encounter - Kaylah Davidson OSA - 02/14/2024 10:56 AM EDT Sent letter rrh * Telephone Encounter - Kaylah Davidson OSA - 02/12/2024 11:49 AM EDT Called x2 and left message for patient to schedule his year follow up rrh * Telephone Encounter - Kaylah Davidson OSA - 02/07/2024 3:38 PM EDT RTC 1 yr GWs w/ carotid duplex and CASSIUS 1 wk prior to visit Called and left message for patient to schedule his year follow up rrh documented in this encounter Plan of Treatment Upcoming Encounters Date Type Department Care Team (Late st Contact Info) Description 02/14/2024 1:10 PM EDT Laboratory Laboratory [employer] [address] [place] [phone] Isis Melara [address] [place] [address] 02/14/2024 2:00 PM EDT Immunization/Injecti on Hematology/Oncology Treatment, [place] [address] [place] [phone] Nurse, Med [address] [place] [address] 02/29/2024 1:00 PM EDT Hospital Encounter Radiology, [address] [address] 03/06/2024 11:30 AM EDT Office Visit Hematology/Oncology Valent[address] Mel[place] [address] [place] [address] [phone] Pastora Aguilar CRNP [address] [place] [address] 05/08/2024 11:00 AM EDT Laboratory Laboratory Valent[address] Melara [place] [address] [place] [phone] Isis Melara [address] [place] [address] 05/08/2024 11:45 AM EDT Immunization/Injecti on Hematology/Oncology Treatment, [place] [address] [place] [phone] Nurse, Med [address] [place] [address] [address] 05/20/2024 2:15 PM EDT Office Visit Urology, [facility] [address] [facility] [place] [address] Isaías Novak MD [address] [facility] [address] [place] [address] 07/01/2024 4:00 PM EDT Office Visit Family [facility] [address] [place] [address] Dru Fritz MD [address] [place] [address] Health Maintenance Due Date Last Done Comments DISCUSS TOBACCO CESSATION (REFER TO SMARTSET #0462) 1960 COVID-19 Vaccine (#1) 1965 Pneumococcal Vaccine: [...] 12/14/2023, 12/30, 05/15/2022, Additional history exists GFR 07/25/2024 01/24/2024, 12/30, 01/11/2024, Additional history exists CKD HGB USE SMARTSET 58862 01/23/202501/23, 01/24/2024, 01/17/2024, Additional history exists CKD PHOS USE SMARTSET 96679 01/23/2025 04/01/2024, 01/17/2024, 01/11/2024, Additional history exists GARDASIL-HPV IMMUNIZATION SERIES Aged Out No longer eligible based on patient's age to complete this topic Hepatitis B Aged Out No longer eligi ble based on patient's age to complete this topic MENINGOCOCCAL (MENACTRA/MENVEO) Aged Out No longer eligible based on patient's age to complete this topic documented as of this encounter Medical Devices Implanted Type Area Food Safety Specialist Device Identifier Shelf Expiration Date Model / Serial / Lot Stent Trnscarotid Enroute 7x40 - [id number] Implanted:Qty: 1 on 01/25/2021 by Zeinab Robert MD at [facility] Left: [facility] [id number] 05/31/2023 SR-0740-C S / / [id number] documented as of this encounter Advance Directives Latest Code Status on File Code Status Date Activated Date Inactivated Comments Full Code 01/25/2021 10:53 AM 01/26/2021 1:19 PM This order reflects the patients wishes and were consensually agreed upon. Care Teams Asbestos Cement Sheet Supervisor Relationship Specialty Start Date End Date Dru Fritz MD [address] [place] [address] PCP - General Family Medicine 01/24/21 documented as of this encounter
--- OUTSIDE RECORDS SUMMARY | 2024-02-16 20:44 | External Medical Summary | Summary of Care ---
Author Name Unknown Organization [facility] Address [address] [place] [address] Phone [phone] Care Team Providers Care Flowers Salesperson Name Role Phone Nima Fritz MD Primary Care Provider [phone] Reason for Referral * Medication Prior Authorization - Pending Review Specialty Diagnoses / Procedures Referred By Contac t Referred To Contact Diagnoses Malignant neoplasm metastatic to bone (HCC) Nima Fritz MD [address] [facility] [place] [address] Referral ID Status Reason Start Date Expiration Date V isits Requested Visits Authorized [id number] Pending Review 999 999 * Medication Prior Authorization - Pending Review Specialty Diagnoses / Procedures Referred By Contac t Referred To Contact Diagnoses Malignant neoplasm metastatic to bone (HCC) Nima Fritz MD [address] [facility] [place] [address] Referral ID Status Reason Start Date Expiration Date V isits Requested Visits Authorized [id number] Pending Review 999 999 Reason for Visit * Reason Onset Date Comments Medication Refill 02/11/2024 Encounter Details Date Type Department Care Team (Late st Contact Info) Description 02/11/2024 Refill Family Practice [facility] [address] [place] [address] Nima Fritz MD [address] [place] [address] Malignant neoplasm metastatic to bone (HCC) Allergies Active Allergy Reactions Criticality Noted Date Comments Amoxicillin-Pot Clavulanate 05/17/20 22 Dizziness and confused documented as of this encounter (statuses as of 02/12/2024) Medications Medication Sig Dispensed Refills Start Date End Date Status Vadio SYSTEM W/DEVICE KITIndications:DM type 2, goal A1c below 7 Use up to four times a day as directed 1 Kit 0 07/28/2014 Active Aspirin 81 MG TBEC Take 1 Tablet by mouth in the morning. 0 Active sildenafil (REVATIO) 20 MG Tablet Take 3 tablets by mouth 1 hour prior to sexual activity 30 Tab 5 03/27/2018 Active Blood Glucose Monitoring Suppl (CatchFreeTOUCH VERIO) w/Device KIT Use up to 4 [...] neuropathy, without long-term current use of insulin ([facility]) TAKE ONE TABLET BY MOUTH DAILY IN [...] needed for Pain, Moderate. 180 Tablet 0 02/12/2024 Active Morphine Sulfate 15 MG Oral Tablet [...] as of this encounter (statuses as of 02/12/2024) Active Problems Problem Noted Date Diagnosed Date [...] as of this encounter (statuses as of 02/12/2024) Resolved Problems Problem Noted Date Diagnosed Date [...] as of this encounter (statuses as of 02/12/2024) Immunizations No known immunizationsdocumented as of this [...] encounter Miscellaneous Notes * Telephone Encounter - eJnnifer Ny data center solutions architect - 02/12/2024 8:33 AM EDT [facility] calling to advise Tramadol and Morphine do not require a PA review at this time. Thanks, Jennifer Ny Video Coordinator III [facility] ([facility]) 02/12/2024,8:33 AM * Telephone Encounter - Osorio Hunter [facility] - 02/12/2024 8:00 AM EDT Signed Prescriptions: Disp Refills Morphine Sulfate 15 MG Oral Tablet (Msir) 60 Tab*0 Sig: Take 1 Tablet by mouth in the morning and 1 Tablet before bedtime.Authorizing Provider: NIMA FRITZtraMADol HCl 50 MG Oral Tablet (Ultram) 180 Ta*0 Sig: Take 2 Tablets by mouth 3 times a day as needed for Pain, Moderate.Authorizing Provider: NIMA FRITZ * Telephone Encounter - Nima Fritz MD - 02/12/2024 7:56 AM EDTSigned Prescriptions: Disp Refills Morphine Sulfate 15 MG Oral Tablet (Msir) 60 Tab*0 Sig: Take 1 Tablet by mouth in the morning and 1 Tablet before bedtime. Authorizing Provider: NIMA FRITZ traMADol HCl 50 MG Oral Tablet (Ultram) 180 Ta*0 Sig: Take 2 Tablets by mouth 3 times a day as needed for Pain, Moderate. Authorizing Provider: Viki FRITZ * Telephone Encounter - Kamilla Bridges [facility] - 02/12/2024 7:56 AM EDT Pending Prescriptions: Disp Refills Morphine Sulfate 15 MG Oral Tablet (Msir) 60 Tab*0 Sig: Take 1 Tablet by mouth in the morning and 1 Tablet before bedtime. traMADol HCl 50 MG Oral Tablet (Ultram) 180 Ta*0 Sig: Take 2 Tablets by mouth 3 times a day as needed for Pain, Moderate. * Telephone Encounter - Kamilla Bridges [facility] - 02/12/2024 7:55 AM EDT I have reviewed the patients controlled substance dispensing history in the Prescription Drug Monitoring Program in compliance with the [facility] regulations before prescribing a controlled substance. PDMP checked on 02/12/2024. Pending Prescriptions: Disp Refills Morphine Sulfate 15 MG Oral Tablet (Msir) 60 Tab*0 Sig: Take 1 Tablet by mouth in the morning and 1 Tablet before bedtime. traMADol HCl 50 MG Oral Tablet (Ultram) 180 Ta*0 Sig: Take 2 Tablets by mouth 3 times a day as needed for Pain, Moderate. Last Visit: 12/26/2023 (in office), 05/04/2022 (telemedicine) Next Visit: 07/01/2024 Date medication was last filled: 12/30, 12/16 Date medication is due for refill: 01/29 Pharmacy: [facility] Is this request for a controlled substance? Yes and Urine Drug Screen Not completed Toxicology results: No results found. However, due to the size of the patient record, not all encounters were searched.Please check Results Review for a complete set of results. Please approve if appropriate. Thank you, Kamilla Bridges PharmKristie. Clinical Pharmacist [facility] Services ([facility]) (formerly Telepharmacy) 02/12/2024, 7:55 AM * Telephone Encounter - Glendy Vital PHARM Tech - 02/12/2024 7:52 AM EDT Pt requesting HIGH PRIORITY due to being out of medication. Pt calling to check on status of Tramadol and Morphine. Caller can be reached at [phone]. Thank you, Glendy Vital Package Lift Operator I [facility] ([facility]) (Formerly Telepharmacy) 02/12/2024,7:52 AM * Telephone Encounter - Radha Baker PHARM Tech - 02/11/2024 11:34 AM EDT Did you pend patient's preferred pharmacy and medication before forwarding?yes Pharmacy: [facility] Pending Prescriptions: Disp Refills Morphine Sulfate 15 MG Oral Tablet (Msir) 60 Tab*0 Sig: Take 1 Tablet by mouth in the morning and 1 Tablet before bedtime. traMADol HCl 50 MG Oral Tablet (Ultram) 180 Ta*0 Sig: Take 2 Tablets by mouth 3 times a day as needed for Pain, Moderate. Last Visit: 12/26/2023 (in office), 05/04/2022 (telemedicine) Next Visit: 07/01/2024 If no future appointments scheduled, and last appointment is greater than a year ago, please schedule patient for a follow-up appointment Last date the medication was ordered: 12/17/2023,12/31/2023 Is this request for a controlled substance?Yes, What was the last refill date 12/31/2023,12/17/2023w/ quantity 60,180 and dosage 15mg,100mg and Urine Drug Screen Not completed Urine Drug Screen:No results found. However, due to the size of the patient record, not all encounters were searched. Please check Results Review for a complete set of results. Patient Phone Numbers Labs: Lab Results Component Value Date/Time CREAT 1.3 (H) 01/24/2024 01:14 PM CREAT 1.1 04/29/2020 10:10 AM POTASSIUM 4.0 01/24/2024 01:14 PM POTASSIUM 4.5 04/29/2020 10:10 AM TSH 2.33 09/27/2007 08:23 AM LDLCALC 100 12/14/2023 09:02 AM LDLCALC 36 04/29/2020 10:10 AM LDLDIRECT 73 02/14/2022 12:25 PM LDLDIRECT NOT APPLICABLE 04/29/2020 10:10 AM ALT 12 01/24/2024 01:14 PM ALT 49 05/14/2016 10:49 AM HGBA1C 6.3 (H) 12/14/2023 09:02 AM HGBA1C 8.3 (H) 04/29/2020 10:10 AM documented in this encounter Plan of Treatment Upcoming Encounters Date Type Department Care Team (Late st Contact Info) Description 02/14/2024 1:10 PM EDT Laboratory Laboratory [facility] [place] [address] [place] [address] [phone] Isis Melara [address] [place] [address] 02/14/2024 2:00 PM EDT Immunization/Injecti on Hematology/Oncology Treatment, [place] [address] [place] [phone] Nurse, Med [address] [place] [address] [address] 02/29/2024 1:00 PM EDT Hospital Encounter Radiology, [place] [address] [place] [address] 03/06/2024 11:30 AM EDT Office Visit Hematology/Oncology [facility] [place] [address] [place] [phone] Pastora Aguilar CRNP 400 [facility] [place] [address] 04/17/2024 10:40 AM EDT Laboratory Laboratory [facility] [place] [address] [place] [phone] [place], [facility] [address] [facility] [place] [address] 04/17/2024 11:45 AM EDT Immunization/Injecti on Hematology/Oncology Treatment, [place] [address] [place] [phone] Nurse, Med 4 200 [facility] [address] 05/20/2024 2:15 PM EDT Office Visit Urology, [facility] [address] [facility] [place] [address] Isaías Novak MD [address] [address] [place] [address] 07/01/2024 4:00 PM EDT Office Visit Family Practice [facility] [address] [facility] [place] [address] Nima Fritz MD 132 [facility] [place] [address] Health Maintenance Due Date Last Done Comments [...] Additional history exists CKD HGB USE SMARTSET 17856 01/23/202501/23, 01/24/2024, 01/17/2024, Additional history exists CKD PHOS USE SMARTSET 08504 01/23/202512/31, 01/17/2024, 01/11/2024, Additional history exists GARDASIL-HPV IMMUNIZATION SERIES Aged Out No longer eligible based on patient's age to complete this topic Hepatitis B Aged Out No longer eligi ble based on patient's age to complete this topic MENINGOCOCCAL (MENACTRA/MENVEO) Aged Out No longer eligible based on patient's age to complete this topic documented as of this encounter Medical Devices Implanted Type Area Humane Officer Device Identifier Shelf Expiration Date Model / Serial / Lot Stent Trnscarotid Enroute 7x40 - [id number] Implanted:Qty: 1 on 01/25/2021 by Zeinab Robert MD at [facility] Left: [facility] [id number] 05/31/2023 SR-0740-C S / / [id number] documented as of this encounter Visit Diagnoses Diagnosis Malignant neoplasm metastatic to bone (HCC) Secondary malignant neoplasm of bone and bone marrow documented in this encounter Advance Directives Latest Code Status on File Code Status Date Activated Date Inactivated Comments Full Code 01/25/2021 10:53 AM 01/26/2021 1:19 PM This order reflects the patients wishes and were consensually agreed upon. Care Teams Flowers Salesperson Relationship Specialty Start Date End Date Nima Fritz MD [address] [facility] [place] [address] PCP - General Family Medicine 01/24/21 documented as of this encounter
--- OUTSIDE RECORDS SUMMARY | 2024-02-16 20:44 | External Medical Summary | Summary of Care ---
Author Name Unknown Organization [facility] Address [address] [place] [address] Phone [phone] Care Team Providers Care Silk Crepe Machine Operator Name Role Phone Dru Fritz MD Primary Care Provider [phone] Reason for Visit * Reason Onset Date Comments Appointment 02/07/2024 recall Encounter Details Date Type Department Care Team (Late st Contact Info) Description 02/07/2024 Telephone Vascular Surg [facility] [address] [place] [address] Andrew Zheng MD [address], [place] [phone] Appointment (recall) Allergies Active Allergy Reactions Criticality Noted Date Comments Amoxicillin-Pot Clavulanate 05/17/20 22 Dizziness and confused documented as of this encounter (statuses as of 02/12/2024) Medications Medication Sig Dispensed Refills Start Date End Date Status [employer] SYSTEM W/DEVICE KITIndications:DM type 2, goal A1c [...] without long-term current use of insulin ([facility]) TAKE ONE TABLET BY MOUTH DAILY IN [...] 1:10 PM EDT Laboratory Laboratory [facility] [place] [address] [place], [place] [address] Isis Melara [address] [place] [address] 02/14/2024 2:00 PM EDT Immunization/Injecti on Hematology/Oncology Treatment, [place] [facility] [phone] Nurse, Med 4 [address] [place] [address] 02/29/2024 1:00 PM EDT Hospital Encounter Radiology, [address] [address] 03/06/2024 11:30 AM EDT Office Visit Hematology/Oncology [facility] [place] [address] [place] [phone] Pastora Aguilar CRNP 400 [facility] [place] [address] 04/17/2024 10:40 AM EDT Laboratory Laboratory [facility] [place] [address] [facility] [place] [phone] Saritha, Lab [facility] [address] [place] [address] 04/17/2024 11:45 AM EDT Immunization/Injecti on Hematology/Oncology Treatment, [place] [facility] [phone] Nurse, Med 4 [address] [place] [address] 05/20/2024 2:15 PM EDT Office Visit Urology, [facility] 132 [facility] [place] [address] Isaías Novak MD [address] [address] [place] [address] 07/01/2024 4:00 PM EDT Office Visit Family Practice [facility] 132 [facility] [place] [address] Dru Fritz MD [address] [place] [address] Health Maintenance Due Date Last Done Comments DISCUSS TOBACCO CESSATION (REFER TO SMARTSET #6480) 1960 COVID-19 Vaccine (#1) 1965 Pneumococcal Vaccine: [...] Additional history exists CKD HGB USE SMARTSET 85599 01/23/202501/23, 01/24/2024, 01/17/2024, Additional history exists CKD PHOS USE SMARTSET 59470 01/23/202512/31, 01/17/2024, 01/11/2024, Additional history exists GARDASIL-HPV [...] encounter Medical Devices Implanted Type Area Director [facility] Device Identifier Shelf Expiration Date Model / Serial / Lot Stent Trnscarotid Enroute 7x40 - [id number] Implanted:Qty: 1 on 01/25/2021 by Zeinab Robert MD at [facility] Left: [facility] [id number] 05/31/2023 SR-0740-C S / / [id number] documented as of this encounter Advance Directives Latest Code Status on File Code Status Date Activated Date Inactivated Comments Full Code 01/25/2021 10:53 AM 01/26/2021 1:19 PM This order reflects the patients wishes and were consensually agreed upon. Care Teams Silk Crepe Machine Operator Relationship Specialty Start Date End Date Dru Fritz MD 132 [facility] [place] [address] PCP - General Family Medicine 01/24/21 documented as of this encounter
--- OUTSIDE RECORDS SUMMARY | 2024-02-16 20:44 | External Medical Summary | Summary of Care ---
Author Name Unknown Organization [facility] Address [address] [place] [address] Phone [phone] Care Team Providers Care Manager Medical Writing Name Role Phone Dru Fritz MD Primary Care Provider [phone] Encounter Details Date Type Department Care Team (Late st Contact Info) Description 02/14/2024 Orders Only Hematology/Oncology [facility] Saritha [place] [address] [facility] [place] [phone] Pastora Aguilar CRNP [address] [place] [address] Allergies Active Allergy Reactions Criticality Noted Date Comments Amoxicillin-Pot Clavulanate 05/17/20 22 Dizziness and confused documented as of this encounter (statuses as of 02/14/2024) Medications Medication Sig Dispensed Refills Start Date End Date Status [employer] SYSTEM W/DEVICE KITIndications:DM type 2, goal [...] Contact Info) Description 02/14/2024 2:00 PM EDT Immunization/Injecti on Hematology/Oncology Treatment, [place] [address] [facility] [phone] Nurse, Med 4 [address] [place] [address] Arrived 02/29/2024 1:00 PM EDT Hospital Encounter Radiology, [address] [address] 03/06/2024 11:30 AM EDT Office Visit Hematology/Oncology [facility] [place] [address] [place] [address] Pastora Aguilar CRNP [address] [place], [place] [address] [address] 05/08/2024 11:00 AM EDT Laboratory Laboratory [facility] [place] [address] [place] [address] Sarith[address] [place] [address] [address] [facility] [place] [address] 05/08/2024 11:45 AM EDT Immunization/Injecti on Hematology/Oncology Treatment, [place] [address] [place] [address] Nurse, Med [address] [place] [address] 05/20/2024 2:15 PM EDT Office Visit Urology, [facility] [place] [address] Isaías Novak MD [address] [place] [address] [place] [address] 07/01/2024 4:00 PM EDT Office Visit Family Practice [facility] [place] [address] Dru Fritz MD 132 [place] [address] Health Maintenance Due Date Last Done Comments DISCUSS TOBACCO CESSATION (REFER TO SMARTSET #1954) 1960 COVID-19 Vaccine (#1) 1964 Pneumococcal Vaccine: [...] Additional history exists CKD HGB USE SMARTSET 77905 01/23/202501/23, 01/24/2024, 01/17/2024, Additional history exists CKD PHOS USE SMARTSET 62566 02/13/202501/29, 01/24/2024, 01/17/2024, Additional history exists GARDASIL-HPV IMMUNIZATION SERIES Aged Out No longer eligible based on patient's age to complete this topic Hepatitis B Aged Out No longer eligi ble based on patient's age to complete this topic MENINGOCOCCAL (MENACTRA/MENVEO) Aged Out No longer eligible based on patient's age to complete this topic documented as of this encounter Medical Devices Implanted Type Area Bi Application Developer Device Identifier Shelf Expiration Date Model / Serial / Lot Stent Trnscarotid Enroute 7x40 - [id number] Implanted:Qty: 1 on 01/25/2021 by Zeinab Robert MD at [facility] Left: [facility] [id number] 05/31/2023 SR-0740-C S / / [id number] documented as of this encounter Advance Directives Latest Code Status on File Code Status Date Activated Date Inactivated Comments Full Code 01/25/2021 10:53 AM 01/26/2021 1:19 PM This order reflects the patients wishes and were consensually agreed upon. Care Teams Manager Medical Writing Relationship Specialty Start Date End Date Dru Fritz MD [address] [place] [address] PCP - General Family Medicine 01/24/21 documented as of this encounter
--- OUTSIDE RECORDS SUMMARY | 2024-02-16 20:44 | External Medical Summary ---
Author Name Unknown Address Unknown Organization K09:[facility] [address] [place] [address] Laboratory Report Ordering Provider Test Date Status PATRICE QUINONES 02/14/2024 13:16:01 Final Observation Date Value Abnormality Reference (Units ) Status Phosphate 02/14/2024 13:16:01 2.6 2.5-4.8 (m g/dL) Final Performing Location [facility] [place] [address] [place] [address]
--- OUTSIDE RECORDS SUMMARY | 2024-02-16 20:44 | External Medical Summary | Summary of Care ---
Author Name Unknown Organization [facility] Address [address] [place] [address] Phone [phone] Care Team Providers Care Lineman Apprentice Name Role Phone Dru Fritz MD Primary Care Provider [phone] Reason for Visit * Reason Onset Date Comments Appointment 02/07/2024 recall Encounter Details Date Type Department Care Team (Late st Contact Info) Description 02/07/2024 Telephone Vascular Surg [facility] [address] [place] [address] Andrew Zheng MD [address] [place], [place] [phone] Appointment (recall) Allergies Active Allergy Reactions Criticality Noted Date Comments Amoxicillin-Pot Clavulanate 05/17/20 22 Dizziness and confused documented as of this encounter (statuses as of 02/14/2024) Medications Medication Sig Dispensed Refills Start Date End Date Status REPUCOM SYSTEM W/DEVICE KITIndications:DM type 2, goal A1c [...] neuropathy, without long-term current use of insulin ([facility]) TAKE ONE TABLET BY MOUTH DAILY [...] [employer] [address] [place] [phone] Isis Melara [address] [place] [address] 02/14/2024 2:00 PM EDT Immunization/Injecti on Hematology/Oncology Treatment, [place] [address] [place] [phone] Nurse, Med [address] [place] [address] 02/29/2024 1:00 PM EDT Hospital Encounter Radiology, [address] [address] 03/06/2024 11:30 AM EDT Office Visit Hematology/Oncology [facility] [place] [address] [place] [place] [phone] Pastora Aguilar CRNP 400 [place] [address] 05/08/2024 11:00 AM EDT Laboratory Laboratory [facility] [place] [address] [place] [place] [phone] Isis Melara [address] [place] [place] [address] 05/08/2024 11:45 AM EDT Immunization/Injecti on Hematology/Oncology Treatment, [place] [address] [place] [phone] Nurse, Med [address] [place] [place] [address] 05/20/2024 2:15 PM EDT Office Visit Urology, [facility] 132 [facility] [place] [address] Isaías Novak MD 27 [facility] [address] [place] [address] 07/01/2024 4:00 PM EDT Office Visit Family [facility] [address] [place] [address] Dru Fritz MD [address] [place] [address] Health Maintenance Due Date Last Done Comments DISCUSS TOBACCO CESSATION (REFER TO SMARTSET #0161) 1960 COVID-19 Vaccine (#1) 1964 Pneumococcal Vaccine: [...] Additional history exists CKD HGB USE SMARTSET 81467 01/23/202501/23, 01/24/2024, 01/17/2024, Additional history exists CKD PHOS USE SMARTSET 32180 01/23/2025 04/01/2024, 01/17/2024, 01/11/2024, Additional history exists [...] this encounter Medical Devices Implanted Type Area Employee Relations Director Device Identifier Shelf Expiration Date Model / Serial / Lot Stent Trnscarotid Enroute 7x40 - [id number] Implanted:Qty: 1 on 01/25/2021 by Zeinab Robert MD at [facility] Left: [facility] [id number] 05/31/2023 SR-0740-C S / / [id number] documented as of this encounter Advance Directives Latest Code Status on File Code Status Date Activated Date Inactivated Comments Full Code 01/25/2021 10:53 AM 01/26/2021 1:19 PM This order reflects the patients wishes and were consensually agreed upon. Care Teams Lineman Apprentice Relationship Specialty Start Date End Date Dru Fritz MD [address] [place] [address] PCP - General Family Medicine 01/24/21 documented as of this encounter
--- OUTSIDE RECORDS SUMMARY | 2024-02-16 20:44 | External Medical Summary | Summary of Care ---
Author Name Unknown Organization [facility] Address [address] [place] [address] Phone [phone] Care Team Providers Care Lining Vamper Name Role Phone Dru Fritz MD Primary Care Provider [phone] Encounter Details Date Type Department Care Team (Late st Contact Info) Description 02/14/2024 Orders Only Hematology/Oncology [facility] Saritha [place] [address] [place] [facility] [place] [address] Pastora Aguilar CRNP [address] [place] [address] Dehydration* Allergies Active Allergy Reactions Criticality Noted Date Comments Amoxicillin-Pot Clavulanate 05/17/20 22 Dizziness and confused documented as of this encounter (statuses as of 02/14/2024) Medications Medication Sig Dispensed Refills Start Date End Date Status Vonage SYSTEM W/DEVICE KITIndications:DM type 2, goal A1c [...] 2:00 PM EDT Immunization/Injecti on Hematology/Oncology Treatment, [place] 200 [facility] [place] [phone] Nurse, Med [address] [facility] [place] [address] Arrived 02/29/2024 1:00 PM EDT Hospital Encounter Radiology, [address] [id number] 03/06/2024 11:30 AM EDT Office Visit Hematology/Oncology [facility] [place] [address] [place] [address] Pastora Aguilar CRNP [address] [place], [place] [address] [address] 05/08/2024 11:00 AM EDT Laboratory Laboratory [facility] Saritha [place] [address] [place] [phone] Saritha [place] [address] [address] [place] [address] 05/08/2024 11:45 AM EDT Immunization/Injecti on Hematology/Oncology Treatment, [place] [address] [place] [address] Nurse, Med [address] [place] [address] 05/20/2024 2:15 PM EDT Office Visit U[facility], [facility] [place] [address] Isaías Novak MD [address] [place] [address] 07/01/2024 4:00 PM EDT Office Visit Family Practice [facility] [place] [address] Dru Fritz MD [facility] [address] Health Maintenance Due Date Last Done Comments DISCUSS TOBACCO CESSATION (REFER TO SMARTSET #4654) 1960 COVID-19 Vaccine (#1) 1964 Pneumococcal Vaccine: [...] Additional history exists CKD HGB USE SMARTSET 61512 01/23/202501/23, 01/24/2024, 01/17/2024, Additional history exists CKD PHOS USE SMARTSET 55461 02/13/202501/29, 01/24/2024, 01/17/2024, Additional history exists GARDASIL-HPV IMMUNIZATION SERIES Aged Out No longer eligible based on patient's age to complete this topic Hepatitis B Aged Out No longer eligi ble based on patient's age to complete this topic MENINGOCOCCAL (MENACTRA/MENVEO) Aged Out No longer eligible based on patient's age to complete this topic documented as of this encounter Medical Devices Implanted Type Area Respiratory Therapy Technician Device Identifier Shelf Expiration Date Model / Serial / Lot Stent Trnscarotid Enroute 7x40 - [id number] Implanted:Qty: 1 on 01/25/2021 by Zeinab Robert MD at [facility] Left: [facility] [id number] 05/31/2023 SR-0740-C S / / [id number] documented as of this encounter Visit Diagnoses Diagnosis Dehydration- Primary documented in this encounter Advance Directives Latest Code Status on File Code Status Date Activated Date Inactivated Comments Full Code 01/25/2021 10:53 AM 01/26/2021 1:19 PM This order reflects the patients wishes and were consensually agreed upon. Care Teams Lining Vamper Relationship Specialty Start Date End Date Dru Fritz MD [address] [place] [address] PCP - General Family Medicine 01/24/21 documented as of this encounter
--- OUTSIDE RECORDS SUMMARY | 2024-02-16 20:44 | External Medical Summary ---
Author Name Unknown Address Unknown Organization K09:[facility] [address] [place] [address] Laboratory Report Ordering Provider Test Date Status PATRICE QUINONES 02/14/2024 13:08:55 Final Observation Date Value Abnormality Reference (Units ) Status BUN 02/14/2024 13:08:55 16 6-20 (mg/dL) Final Creatinine 02/14/2024 13:08:55 1.8 Above high normal 0.6-1.2 (mg/dL) Final Glomerular filtration rate/1.73 sq M.predicted [Volume Rate/Area] in Serum, Plasma or Blood by Creatinine-based formula (CKD-EPI) 02/14/2024 13:08:55 41 Below low normal >=60 (mL/min) Final eGFR is calculated based on the CKD-EPI 2020 equation Sodium 02/14/2024 13:08:55 142 135-146 (m mol/L) Final Potassium 02/14/2024 13:08:55 3.7 3.5-5.1 (m mol/L) Final Cl 02/14/2024 13:08:55 109 Above high normal 98 -107 (mmol/L) Final CO2 02/14/2024 13:08:55 18 Below low normal 22- 32 (mmol/L) Final Anion gap 02/14/2024 13:08:55 15 7-15 (mmol /L) Final Glucose 02/14/2024 13:08:55 206 Above high normal 70 -120 (mg/dL) Final Albumin 02/14/2024 13:08:55 3.5 Below low normal 3.8 -5.0 (g/dL) Final AST (Aspartate aminotransferase) 02/14/2024 13:08:55 76 Above high normal 10-50 (U/L) Final Alk Phos 02/14/2024 13:08:55 368 Above high normal 35 -130 (U/L) Final Bilirubin, Total 02/14/2024 13:08:55 0.2 <=1 .2 (mg/dL) Final Calcium 02/14/2024 13:08:55 6.5 Below low normal 8.4 -10.2 (mg/dL) Final Protein 02/14/2024 13:08:55 6.5 6.0-8.3 (g /dL) Final ALT (Alanine aminotransferase) 02/14/2024 13:08:55 10 10-50 (U/L) Hilton harrell Performing Location [facility] [address] [place] [address]
--- OUTSIDE RECORDS SUMMARY | 2024-02-16 20:44 | External Medical Summary ---
Author Name Unknown Address Unknown Organization K01:[facility] [address] [place] [address] Laboratory Report Ordering Provider Test Date Status PATRICE QUINONES 02/14/2024 13:08:55 Final Observation Date Value Abnormality Reference (Units ) Status PSA 02/14/2024 13:08:55 420.90 Above high normal <4 .10 (ng/mL) Final Performing Location [facility] - [address] [place] [address]
--- OUTSIDE RECORDS SUMMARY | 2024-02-16 20:44 | External Medical Summary ---
Author Name Unknown Address Unknown Organization [facility] [address] [place] [address] Laboratory Report Ordering Provider Test Date Status PATRICE QUINONES 02/14/2024 13:08:55 Final Observation Date Value Abnormality Reference (Units ) Status Nucleated erythrocytes/100 leukocytes [Ratio] in Blood by Automated count 02/14/2024 13:08:55 Final Performing Location [facility] [address] [address]
--- OUTSIDE RECORDS SUMMARY | 2024-02-16 20:44 | External Medical Summary ---
Author Name Unknown Address Unknown Organization [facility] [address] [place] [address] Laboratory Report Ordering Provider Test Date Status PATRICE QUINONES 02/15/2024 12:27:44 Final Observation Date Value Abnormality Reference (Units ) Status WBC, Total 02/15/2024 12:27:44 5.02 4.00-10.8 0 (K/uL) Final RBC 02/15/2024 12:27:44 2.45 4.50-5.25 (M/uL) Final Hemoglobin 02/15/2024 12:27:44 7.3 Below low normal 14 .0-16.8 (g/dL) Final HCT 02/15/2024 12:27:44 24.4 Below low normal 40. 0-48.4 (%) Final MCV 02/15/2024 12:27:44 99.6 82.0-99.5 (fL) Final MCH 02/15/2024 12:27:44 29.8 27.0-34.0 (pg) Final MCHC 02/15/2024 12:27:44 29.9 32.0-36.0 (g/dL) Final RDW 02/15/2024 12:27:44 21.1 11.5-15.5 (%) Final Platelets 02/15/2024 12:27:44 138 Below low normal 140 -400 (K/uL) Final MPV 02/15/2024 12:27:44 8.2 6.6-11.1 ( fL) Final Performing Location [facility] [address] [place] [address]
--- OUTSIDE RECORDS SUMMARY | 2024-02-16 20:44 | External Medical Summary ---
Author Name Unknown Address Unknown Organization [facility] [place] [address] [address] Laboratory Report Ordering Provider Test Date Status PATRICE QUINONES 02/14/2024 13:08:55 Final Observation Date Value Abnormality Reference (Units ) Status SYNC LEUKOCYTES IN BLOOD BY AUTOMATED COUNT 02/14/2024 13:08:55 5.69 4.00-10.80 (K/uL) Final Segs 02/14/2024 13:08:55 77.1 Above high normal 40.0-75.0 (%) Final Lymphs % 02/14/2024 13:08:55 13.2 Below low normal 18.0-42.0 (%) Final Monos 02/14/2024 13:08:55 8.4 1.0-11.0 (%) Final Eosinophils 02/14/2024 13:08:55 0.9 0.0-6.0 (%) Final Basos 02/14/2024 13:08:55 0.4 0.0-2.0 (%) Final Absolute Segs 02/14/2024 13:08:55 4.39 1.80-7.70 (K/uL) Final Lymphs, absolute 02/14/2024 13:08:55 0.75 Below low normal 1.00-4.80 (K/ul) Final Monos, Abs 02/14/2024 13:08:55 0.48 0.00-1.10 (K/uL) Final Eos, Abs 02/14/2024 13:08:55 0.05 0.00-0.70 (K/uL) Final Basos, Abs 02/14/2024 13:08:55 0.02 0.00-0.20 (K/uL) Final Performing Location [facility] [address] [address]
--- OUTSIDE RECORDS SUMMARY | 2024-02-16 20:44 | External Medical Summary | Summary of Care ---
Author Name Unknown Organization [facility] Address [address] [place] [address] Phone [phone] Care Team Providers Care Crime Laboratory Analyst Name Role Phone Dru Fritz MD Primary Care Provider [phone] [phone] Reason for Visit * Reason Comments Outpatient Testing Encounter Details Date Type Department Care Team (Late st Contact Info) Description 02/14/2024 1:10 PM EDT Laboratory Laboratory [facility] [place] [address] [place] [address] [facility] [address] [place] [address] Prostate cancer metastatic to multiple sites (HCC); Metastasis to bone (HCC) Allergies Active Allergy Reactions Criticality Noted Date Comments Amoxicillin-Pot Clavulanate 05/17/20 22 Dizziness and confused documented as of this encounter (statuses as of 02/14/2024) Medications Medication Sig Dispensed Refills Start Date End Date Status Watchsend SYSTEM W/DEVICE KITIndications:DM type 2, goal A1c [...] 2:00 PM EDT Immunization/Injecti on Hematology/Oncology Treatment, [place] 200 [facility] [place] [phone] Nurse, Med [address] [place] [address] Arrived 02/29/2024 1:00 PM EDT Hospital Encounter Radiology, [address] [id number] 03/06/2024 11:30 AM EDT Office Visit Hematology/Oncology [facility] Saritha [place] [address] [place] [address] Pastora Aguilar [facility] [place] [id number] 05/08/2024 11:00 AM EDT Laboratory Laboratory [facility] [address] [phone] [place], Lab Scenery [address] [place] [address] 05/08/2024 11:45 AM EDT Immunization/Injecti on Hematology/Oncology Treatment, [place] [address] [place] [address] Nurse, Med 200 [facility] [place] [address] 05/20/2024 2:15 PM EDT Office Visit Urology, [facility] 132 [place] [address] Isaías Novak MD 27 [facility] [address] [place] [address] 07/01/2024 4:00 PM EDT Office Visit Family Practice [facility] 132 [place] [address] Dru Fritz MD 132 [facility] [place] [address] Pending Results Name Type Priority Associated Diagnoses Date /Time PSA Lab STAT Prostate cancer metastatic to multiple sites (HCC) 02/14/2024 1:08 PM EDT CBC WITH WBC DIFFERENTIAL Lab STAT Prostate cancer metastatic to multiple sites (HCC) 02/14/2024 1:08 PM EDT COMPREHENSIVE METABOLIC PANEL Lab STAT Prostate cancer metastatic to multiple sites (HCC) 02/14/2024 1:08 PM EDT CBC Lab STAT Prostate cancer metastatic to multiple sites (HCC) 02/14/2024 1:08 PM EDT DIFFERENTIAL, AUTOMATED Lab STAT Prostate cancer metastatic to multiple sites ([facility]) 02/14/2024 1:08 PM EDT PHOSPHORUS Lab STAT Metastasis to bone (HCC) 02/14/2024 1:16 PM EDT Health Maintenance Due Date Last Done Comments DISCUSS TOBACCO CESSATION (REFER TO SMARTSET #4200) 1960 COVID-19 Vaccine (#1) 1965 Pneumococcal Vaccine: [...] Additional history exists CKD HGB USE SMARTSET 75754 01/23/202501/23, 01/24/2024, 01/17/2024, Additional history exists CKD PHOS USE SMARTSET 64879 01/23/202512/31, 01/17/2024, 01/11/2024, Additional history exists GARDASIL-HPV IMMUNIZATION SERIES Aged Out No longer eligible based on patient's age to complete this topic Hepatitis B Aged Out No longer eligi ble based on patient's age to complete this topic MENINGOCOCCAL (MENACTRA/MENVEO) Aged Out No longer eligible based on patient's age to complete this topic documented as of this encounter Medical Devices Implanted Type Area Fast Food Restaurant Manager Device Identifier Shelf Expiration Date Model / Serial / Lot Stent Trnscarotid Enroute 7x40 - [id number] Implanted:Qty: 1 on 01/25/2021 by Zeinab Robert MD at [facility] Left: [facility] [id number] 05/31/2023 [facility]0740-C S / / [id number] documented as of this encounter Visit Diagnoses [...] and were consensually agreed upon. Care Teams Crime Laboratory Analyst Relationship Specialty Start Date End Date Dru Fritz MD [address] [place] [address] PCP - General Family Medicine 01/24/21 documented as of this encounter
--- OUTSIDE RECORDS SUMMARY | 2024-02-16 20:44 | External Medical Summary | Summary of Care ---
Author Name Unknown Organization [facility] Address [address] [place] [address] Phone [phone] Care Team Providers Care Sustainability Executive Director Name Role Phone Dru Fritz MD Primary Care Provider [phone] [phone] Encounter Details Date Type Department Care Team (Late st Contact Info) Description 02/14/2024 Orders Only Hematology/Oncology [place] 200 [facility] [place] [address] Elio Queen MD 200 [facility] [address] Malignant neoplasm metastatic to bone (HCC)*; Dehydration; Hypocalcemia Allergies Active Allergy Reactions Criticality Noted Date Comments Amoxicillin-Pot Clavulanate 05/17/20 22 Dizziness and confused documented as of this encounter (statuses as of 02/14/2024) Medications Medication Sig Dispensed Refills Start Date End Date Status Leondra music SYSTEM W/DEVICE KITIndications:DM type 2, goal A1c [...] Description 02/15/2024 12:00 PM EDT Laboratory [facility] [place] [address] [place] [phone] Saritha Lab [facility] [address] [place] [address] 02/15/2024 12:15 PM EDT Nurse Only Hematology/Oncology [place] [place] [address] [place] [phone] Saritha, Nurse Hem Onc [facility] [address] [place] [address] [address] 02/29/2024 1:00 PM EDT Hospital Encounter Radiology, [address] [place] [address] 03/06/2024 11:30 AM EDT Office Visit Hematology/Oncology [place] [address] [place] [address] [address] Pastora Aguilar CRNP [address] [place] [address] [place] [address] 05/08/2024 11:00 AM EDT Laboratory Laboratory [facility] [place] [address] [place] [address] [place], Lab Scenery [address] [facility] [place] [address] 05/08/2024 11:45 AM EDT Immunization/Injecti on Hematology/Oncology Treatment, [place] [address] [place] [phone] Nurse, Med [address] [place] [address] 05/20/2024 2:15 PM EDT Office Visit Urology, [facility] 132 [facility] [place] [address] Isaías Novak MD 27 [facility] [address] [place] [address] 07/01/2024 4:00 PM EDT Office Visit Family Practice [facility] 132 [facility] [place] [address] Dru Fritz MD 132 [facility] [place] [address] Scheduled Orders Name Type Priority Associated Diagnoses Orde r Schedule CBC WITH WBC DIFFERENTIAL Lab STAT Malignant neoplasm metastatic to bone (HCC) Hypocalcemia Expected: 02/15/2024, Expires: 02/13/2025 COMPREHENSIVE METABOLIC PANEL Lab STAT Malignant neoplasm metastatic to bone (HCC) Hypocalcemia Expected: 02/15/2024, Expires: 02/13/2025 Health Maintenance Due Date Last Done Comments DISCUSS TOBACCO CESSATION (REFER TO SMARTSET #8535) 1960 COVID-19 Vaccine (#1) 1965 Pneumococcal Vaccine: [...] Additional history exists CKD HGB USE SMARTSET 71192 02/13/202502/13, 02/14/2024, 01/24/2024, Additional history exists CKD PHOS USE SMARTSET 95635 02/13/202501/29, 01/24/2024, 01/17/2024, Additional history exists GARDASIL-HPV IMMUNIZATION SERIES Aged Out No longer eligible based on patient's age to complete this topic Hepatitis B Aged Out No longer eligi ble based on patient's age to complete this topic MENINGOCOCCAL (MENACTRA/MENVEO) Aged Out No longer eligible based on patient's age to complete this topic documented as of this encounter Medical Devices Implanted Type Area Federal Judicial Law Clerk Device Identifier Shelf Expiration Date Model / Serial / Lot Stent Trnscarotid Enroute 7x40 - [id number] Implanted:Qty: 1 on 01/25/2021 by Zeinab Robert MD at [facility] Left: [facility] [id number] 05/31/2023 SR-0740-C S / / [id number] documented as of this encounter Visit Diagnoses Diagnosis Malignant neoplasm metastatic to bone (HCC)- Primary Secondary malignant neoplasm of bone and bone marrow Dehydration Hypocalcemia documented in this encounter Advance Directives Latest Code Status on File Code Status Date Activated Date Inactivated Comments Full Code 01/25/2021 10:53 AM 01/26/2021 1:19 PM This order reflects the patients wishes and were consensually agreed upon. Care Teams Sustainability Executive Director Relationship Specialty Start Date End Date Dru Fritz MD [address] [place] [address] PCP - General Family Medicine 01/24/21 documented as of this encounter
--- OUTSIDE RECORDS SUMMARY | 2024-02-16 20:45 | External Medical Summary | Summary of Care ---
Author Name Unknown Organization [facility] Address [address] [place] [facility] [place] [address] Phone [phone] Care Team Providers Care Day Haul Or Farm Charter Bus Driver Name Role Phone Dru Fritz MD Primary Care Provider [phone] Reason for Visit * Reason Onset Date Comments FYI 01/24/2024 LGI Encounter Details Date Type Department Care Team (Late st Contact Info) Description 01/24/2024 Telephone Family Practice [facility] [address] [place] [address] Dru Fritz MD [address] [place] [address] FYI (LGI) Allergies Active Allergy Reactions Criticality Noted Date Comments Amoxicillin-Pot Clavulanate 05/17/20 22 Dizziness and confused documented as of this encounter (statuses as of 01/25/2024) Medications Medication Sig Dispensed Refills Start Date End Date Status KitNipBox SYSTEM W/DEVICE KITIndications:DM type 2, goal A1c [...] the morning. 90 Capsule 3 01/16/2024 Active documented as of this encounter (statuses as of 01/25/2024) Active Problems Problem Noted Date Diagnosed Date [...] as of this encounter (statuses as of 01/25/2024) Resolved Problems Problem Noted Date Diagnosed Date [...] as of this encounter (statuses as of 01/25/2024) Immunizations No known immunizationsdocumented as of this [...] encounter Miscellaneous Notes * Addendum Note - Spencer Eckert LPN - 01/25/2024 9:25 AM EDTAddended by: SPENCER ECKERT on: 01/25/2024 09:25 AM Modules accepted: Orders * Telephone Encounter - Spencer Eckert LPN - 01/25/2024 9:24 AM EDT Through advanced analysis/trending of this patients Complete Blood Counts (CBC), they have been identified to have a positive LGI flag and at a higher risk for hidden bleeding in the intestine dueto several conditions such as ulcers, colon polyps, harmless conditions, or even colon cancer. This advanced analysis estimates the patient's risk of these kinds of conditions. It only indicatesthat the patient's chances to have one of these conditions are higher compared to most people. It does not indicate that the patient has any of these conditions but is highly recommended the patient have a colonoscopy for further evaluation. Patients with a positive LGI flag have a 40% chance (six times more likely) of having a serious GI pathology finding versus unflagged patients. I have contacted the patient regarding scheduling a colonoscopy. Colonoscopy outreach: Patient declined, sent to PCP for review Thank you. Spencer Eckert LPN * Addendum Note - Spencer Eckert LPN - 01/25/2024 8:51 AM EDTAddended by: SPENCER ECKERT on: 01/25/2024 08:51 AM Modules accepted: Orders * Telephone Encounter - Spencer Eckert LPN - 01/25/2024 8:50 AM EDT Through advanced analysis/trending of this patients Complete Blood Counts (CBC), they have been identified to have a positive LGI flag and at a higher risk for hidden bleeding in the intestine dueto several conditions such as ulcers, colon polyps, harmless conditions, or even colon cancer. This advanced analysis estimates the patient's risk of these kinds of conditions. It only indicatesthat the patient's chances to have one of these conditions are higher compared to most people. It does not indicate that the patient has any of these conditions but is highly recommended the patient have a colonoscopy for further evaluation. Patients with a positive LGI flag have a 40% chance (six times more likely) of having a serious GI pathology finding versus unflagged patients. I have contacted the patient regarding scheduling a colonoscopy. Colonoscopy outreach: Left message Thank you. Spencer Eckert LPN * Telephone Encounter - Spencer Eckert LPN - 01/24/2024 12:41 PM EDT Through advanced analysis/trending of this patients Complete Blood Counts (CBC), they have been identified to have a positive LGI flag and at a higher risk for hidden bleeding in the intestine dueto several conditions such as ulcers, colon polyps, harmless conditions, or even colon cancer. This advanced analysis estimates the patient's risk of these kinds of conditions. It only indicatesthat the patient's chances to have one of these conditions are higher compared to most people. It does not indicate that the patient has any of these conditions but is highly recommended the patient have a colonoscopy for further evaluation. Patients with a positive LGI flag have a 40% chance (six times more likely) of having a serious GI pathology finding versus unflagged patients. I have contacted the patient regarding scheduling a colonoscopy. Colonoscopy outreach: Left message Thank you. Spencer Eckert LPN documented in this encounter Plan of Treatment Upcoming Encounters Date Type Department Care Team (Late st Contact Info) Description 02/14/2024 1:10 PM EDT Laboratory Laboratory [place] [facility] [place] [address] [place] [phone] Isis Melara [address] [place] [address] 02/14/2024 2:00 PM EDT Immunization/Injectio n Hematology/Oncology Treatment, [place] [address] [place] [phone] Nurse, Med [address] [place] [address] 02/15/2024 1:00 PM EDT Appointment Radiology, [address] [address] 03/06/2024 11:30 AM EDT Office Visit Hematology/Oncology [facility] [address] [place] [phone] Pastora Aguilar CRNP [address] [place] [address] 04/17/2024 10:40 AM EDT Laboratory Laboratory [place] [facility] [address] [phone] Saritha [facility] [place] [address] [place] [address] [address] 04/17/2024 11:45 AM EDT Immunization/Injectio n Hematology/Oncology Treatment, [place] [address] [place] [address] Nurse, Med [address] [place] [address] 05/20/2024 2:15 PM EDT Office Visit Urology, [facility] [address] [facility] [place] [address] Isaías Novak MD [address] [place] [address] [place] [id number] 07/01/2024 4:00 PM EDT Office Visit Family Practice [facility] 132 [place] [address] Dru Fritz MD [address] [place] [address] Health Maintenance Due Date Last Done Comments DISCUSS TOBACCO CESSATION (REFER TO SMARTSET #8291) 1960 COVID-19 Vaccine (#1) 1965 Pneumococcal Vaccine: [...] Additional history exists CKD HGB USE SMARTSET 70998 01/23/202501/23, 01/24/2024, 01/17/2024, Additional history exists CKD PHOS USE SMARTSET 86340 01/23/2025 04/01/2024, 01/17/2024, 01/11/2024, Additional history exists [...] this encounter Medical Devices Implanted Type Area Guide Plant Device Identifier Shelf Expiration Date Model / Serial / Lot Stent Trnscarotid Enroute 7x40 - [id number] Implanted:Qty: 1 on 01/25/2021 by Zeinab Robert MD at [facility] Left: [facility] [id number] 05/31/2023 SR-0740-C S / / [id number] documented as of this encounter Advance Directives Latest Code Status on File Code Status Date Activated Date Inactivated Comments Full Code 01/25/2021 10:53 AM 01/26/2021 1:19 PM This order reflects the patients wishes and were consensually agreed upon. Care Teams Day Ha[employer] Farm Charter Bus Driver Relationship Specialty Start Date End Date Dru Fritz MD [address] [place] [address] [address] PCP - General Family Medicine 01/24/21 documented as of this encounter
--- OUTSIDE RECORDS SUMMARY | 2024-02-16 20:45 | External Medical Summary | Summary of Care ---
Author Name Unknown Organization [facility] Address [address] [place] [address] Phone [phone] Care Team Providers Care Mountain Services Manager Name Role Phone Nima Fritz MD Primary Care Provider [phone] Reason for Referral * Medication Prior Authorization - Pending Review Specialty Diagnoses / Procedures Referred By Contac t Referred To Contact Diagnoses Malignant neoplasm metastatic to bone (HCC) Nima Fritz MD [address] [place] [facility] [address] Referral ID Status Reason Start Date Expiration Date V isits Requested Visits Authorized [id number] Pending Review 999 999 * Medication Prior Authorization - Pending Review Specialty Diagnoses / Procedures Referred By Contac t Referred To Contact Diagnoses Malignant neoplasm metastatic to bone (HCC) Nima Fritz MD [address] [place] [facility] [address] Referral ID Status Reason Start Date Expiration Date V isits Requested Visits Authorized [id number] Pending Review 999 999 Reason for Visit * Reason Onset Date Comments Medication Refill 02/11/2024 Encounter Details Date Type Department Care Team (Late st Contact Info) Description 02/11/2024 Refill Family Practice [facility] [address] [place] [address] Nima Fritz MD [address] [place] [address] Malignant neoplasm metastatic to bone (HCC) Allergies Active Allergy Reactions Criticality Noted Date Comments Amoxicillin-Pot Clavulanate 05/17/20 22 Dizziness and confused documented as of this encounter (statuses as of 02/12/2024) Medications Medication Sig Dispensed Refills Start Date End Date Status Bunker Mode SYSTEM W/DEVICE KITIndications:DM type 2, goal A1c below 7 Use up to four times a day as directed 1 Kit 0 07/28/2014 Active Aspirin 81 MG TBEC Take 1 Tablet by mouth in the morning. 0 Active sildenafil (REVATIO) 20 MG Tablet Take 3 tablets by mouth 1 hour prior to sexual activity 30 Tab 5 03/27/2018 Active Blood Glucose Monitoring Suppl (ManymoonTOUCH VERIO) w/Device KIT Use up to 4 [...] long-term current use of insulin ([facility]) TAKE ONE TABLET BY MOUTH DAILY [...] encounter Miscellaneous Notes * Telephone Encounter - Osorio [facility] - 02/12/2024 8:00 AM EDT Signed Prescriptions: Disp Refills Morphine Sulfate 15 MG Oral Tablet (Msir) 60 Tab*0 Sig: Take 1 Tablet by mouth in the morning and 1 Tablet before bedtime.Authorizing Provider: NIMA FRITZ traMADol HCl 50 MG [...] Drug Monitoring Program in compliance with the [facility] regulations before prescribing a controlled substance. [...] medication is due for refill: 01/29 Pharmacy: [facility] Is this request for a controlled substance? Yes and Urine Drug Screen Not completed Toxicology results: No results found. However, due to the size of the patient record, not all encounters were searched.Please check Results Review for a complete set of results. Please approve if appropriate. Thank you, Kamilla Bridges, PharmD. Clinical Pharmacist [facility] ([facility]) (formerly Telepharmacy) 02/12/2024, 7:55 AM * Telephone Encounter - Glendy Vital PHARM Tech - 02/12/2024 7:52 AM EDT Pt requesting HIGH PRIORITY due to being out of medication. Pt calling to check on status of Tramadol and Morphine. Caller can be reached at [phone]. Thank you, Glendy Vital Small Equipment Operator I [facility] ([facility]) (Formerly TelepharmEnvia Lá) 02/12/2024,7:52 AM * Telephone Encounter - Radha Baker PHARM Tech - 02/11/2024 11:34 AM EDT Did you pend patient's preferred pharmacy and medication before forwarding?yes Pharmacy: [facility] Pending Prescriptions: Disp Refills Morphine [...] Description 02/14/2024 1:10 PM EDT Laboratory Laboratory [facility] [place] [address] [place] [phone] Isis Melara [address] [facility] [place] [address] 02/14/2024 2:00 PM EDT Immunization/Injecti on Hematology/Oncology Treatment, [place] 200 [facility] [place] [phone] Nurse, Med 4 [address] [place] [address] 02/29/2024 1:00 PM EDT Hospital Encounter Radiology, [address] [place] [address] 03/06/2024 11:30 AM EDT Office Visit Hematology/Oncology [facility] Saritha [place] [address] [place] [address] [place] [phone] Pastora Aguilar CRNP [address] [place], [place] [address] [address] 04/17/2024 10:40 AM EDT Laboratory Laboratory [facility] [address] [place] [address] Isis [address] [place] [address] 04/17/2024 11:45 AM EDT Immunization/Injecti on Hematology/Oncology Treatment, [place] [address] [place] [address] Nurse, Med [address] [place] [address] 05/20/2024 2:15 PM EDT Office Visit Urology, [facility] [address] [facility] [address] Isaías Novak MD [address] [id number] 07/01/2024 4:00 PM EDT Office Visit Family Practice [facility] 132 [place] [address] Nima Fritz MD 132 [facility] [place] [address] Health Maintenance Due Date Last Done Comments DISCUSS TOBACCO CESSATION (REFER TO SMARTSET #8778) 1960 COVID-19 Vaccine (#1) 1965 Pneumococcal Vaccine: [...] Additional history exists CKD HGB USE SMARTSET 45523 01/23/202501/23, 01/24/2024, 01/17/2024, Additional history exists CKD PHOS USE SMARTSET 24962 01/23/202512/31, 01/17/2024, 01/11/2024, Additional history exists GARDASIL-HPV [...] encounter Medical Devices Implanted Type Area Manager Medical Device Device Identifier Shelf Expiration Date Model / Serial / Lot Stent Trnscarotid Enroute 7x40 - [id number] Implanted:Qty: 1 on 01/25/2021 by Zeinab Robert MD at [facility] Left: [facility] [id number] 05/31/2023 SR-0740-C S / / [id number] documented as of this encounter Visit Diagnoses Diagnosis Malignant neoplasm metastatic to bone (HCC) Secondary malignant neoplasm of bone and bone marrow documented in this encounter Advance Directives Latest Code Status on File Code Status Date Activated Date Inactivated Comments Full Code 01/25/2021 10:53 AM 01/26/2021 1:19 PM This order reflects the patients wishes and were consensually agreed upon. Care Teams Mountain Services Manager Relationship Specialty Start Date End Date Nima Fritz MD [address] [place] [address] [address] PCP - General Family Medicine 01/24/21 documented as of this encounter
--- OUTSIDE RECORDS SUMMARY | 2024-02-16 20:45 | External Medical Summary | Summary of Care ---
Author Name Unknown Organization [facility] Address [address] [facility] [place] [address] Phone [phone] Care Team Providers Care Branch Logistics Supervisor Name Role Phone Dru Fritz MD Primary Care Provider [phone] Reason for Visit * Reason Onset Date Comments Health Maintenance 02/08/2024 Encounter Details Date Type Department Care Team (Late st Contact Info) Description 02/08/2024 Telephone Family Practice [facility] [address] [place] [address] Dru Fritz MD [address] [place] [address] Health Maintenance Allergies Active Allergy Reactions Criticality Noted Date Comments Amoxicillin-Pot Clavulanate 05/17/20 22 Dizziness and confused documented as of this encounter (statuses as of 02/08/2024) Medications Medication Sig Dispensed Refills Start Date End Date Status FinanzCheck SYSTEM W/DEVICE KITIndications:DM type 2, goal A1c [...] as of this encounter (statuses as of 02/08/2024) Active Problems Problem Noted Date Diagnosed Date [...] as of this encounter (statuses as of 02/08/2024) Resolved Problems Problem Noted Date Diagnosed Date [...] as of this encounter (statuses as of 02/08/2024) Immunizations No known immunizationsdocumented as of this [...] encounter Miscellaneous Notes * Telephone Encounter - Lisa Tatum LPN - 02/08/2024 10:20 AM EDT Care Gaps Comprehensive Care Outreach Last Office/Telemedicine Visit: 12/26/2023 (in office), 05/04/2022 (telemedicine) Next Office Visit: 07/01/2024 Hemoglobin AIC Results: Lab Results Component Value Date/Time HEMOGLOBIN A1C - [facility] 6.3 (H) 12/14/2023 09:02 AM HEMOGLOBIN A1C - [facility] 6.1 (H) 01/15/2023 10:13 AM HEMOGLOBIN A1C - [facility] 7.6 (H) 05/15/2022 01:19 PM HEMOGLOBIN A1C - [facility] 8.3 (H) 04/29/2020 10:10 AM HEMOGLOBIN A1C - [facility] 8.2 (H) 07/11/2019 02:28 PM HEMOGLOBIN A1C - [facility] 10.1 (H) 11/14/2018 09:38 AM BP Readings from Last 1 Encounters: 01/17/24 105/71 Reviewed Health Maintenance below: Health Maintenance Topic Date Due DISCUSS TOBACCO CESSATION (REFER TO SMARTSET #8504) Never done COVID-19 Vaccine (1) Never done Pneumococcal Vaccine: Pediatrics (0 to 5 Years) and At-Risk Patients (6 to 64 Years) (1 of 2 - PCV)Never done HIV Screening Never done Hepatitis C Screening Never done DTaP,Tdap,and Td Vaccines (1 - Tdap) Never done Zoster Vaccines (1 of 2) Never done Colorectal Cancer Screening Never done Diabetic Foot Exam 05/20/2020 Depression Screening 06/23/2020 Diabetic Eye Exam 03/02/2022 Albumin/Creatinine Ratio 05/15/2023 Influenza Vaccine (FLU shot) (Season Ended) 2024 HbA1c 06/15/2024 GFR 07/25/2024 Colon just declined lgi reach out Eye tele eye last Labs oct Care Gap Outreach Action Taken: Left message documented in this encounter Plan of Treatment Upcoming Encounters Date Type Department Care Team (Late st Contact Info) Description 02/14/2024 1:10 PM EDT Laboratory Laboratory [place] [facility] [place] [address] [place] [phone] Isis Melara [place] [address] [place] [address] 02/14/2024 2:00 PM EDT Immunization/Injecti on Hematology/Oncology Treatment, [place] 200 [facility] [place] [phone] Nurse, Med [address] [place] [address] 02/29/2024 1:00 PM EDT Hospital Encounter Radiology, [address] [id number] 03/06/2024 11:30 AM EDT Office Visit Hematology/[place] [phone] Pastora [facility]ilar CR[facility] [address] [facility] [place] [address] 04/17/2024 10:40 AM EDT Laboratory Laboratory [place] [facility] [place] [address] [place] [phone] Isis Melara [address] [facility] [place] [address] 04/17/2024 11:45 AM EDT Immunization/Injecti on Hematology/Oncology Treatment, [place] [address] [place] [phone] Nurse, Med 4 [address] [place] [address] 05/20/2024 2:15 PM EDT Office Visit [facility], [facility] [place] [address] Isaías Novak MD [address] [place] [address] [place] [id number] 07/01/2024 4:00 PM EDT Office Visit Family Practice [facility] 132 [facility] [place] [address] Dru [facility] MD [address] [facility] [address] Health Maintenance Due Date Last Done Comments DISCUSS TOBACCO CESSATION (REFER TO SMARTSET #4624) 1960 COVID-19 Vaccine (#1) 1965 Pneumococcal Vaccine: [...] Additional history exists CKD HGB USE SMARTSET 72807 01/23/202501/23, 01/24/2024, 01/17/2024, Additional history exists CKD PHOS USE SMARTSET 91359 01/23/202512/31, 01/17/2024, 01/11/2024, Additional history exists GARDASIL-HPV IMMUNIZATION SERIES Aged Out No longer eligible based on patient's age to complete this topic Hepatitis B Aged Out No longer eligi ble based on patient's age to complete this topic MENINGOCOCCAL (MENACTRA/MENVEO) Aged Out No longer eligible based on patient's age to complete this topic documented as of this encounter Medical Devices Implanted Type Area First Breaker Feeder Device Identifier Shelf Expiration Date Model / Serial / Lot Stent Trnscarotid Enroute 7x40 - [id number] Implanted:Qty: 1 on 01/25/2021 by Zeinab Robert MD at [facility] Left: [facility] [id number] 05/31/2023 SR-0740-C S / / [id number] documented as of this encounter Advance Directives Latest Code Status on File Code Status Date Activated Date Inactivated Comments Full Code 01/25/2021 10:53 AM 01/26/2021 1:19 PM This order reflects the patients wishes and were consensually agreed upon. Care Teams Branch Logistics Supervisor Relationship Specialty Start Date End Date Dru Fritz MD 132 [facility] [place] [address] PCP - General Family Medicine 01/24/21 documented as of this encounter
--- OUTSIDE RECORDS SUMMARY | 2024-02-16 20:45 | External Medical Summary | Summary of Care ---
Author Name Unknown Organization [facility] Address [address] [place] [address] Phone [phone] Care Team Providers Care Stock Manager Name Role Phone Dru Fritz MD Primary Care Provider [phone] [phone] Reason for Visit * Reason Onset Date Comments Mycode Lab Reorder 02/07/2024 Encounter Details Date Type Department Care Team (Late st Contact Info) Description 02/07/2024 Orders Only Outcomes Research Department [address], [place] [id number] Marquita Frye CHRA MyCode Research Other*[id number]* Allergies Active Allergy Reactions Criticality Noted Date Comments Amoxicillin-Pot Clavulanate 05/17/20 22 Dizziness and confused documented as of this encounter (statuses as of 02/07/2024) Medications Medication Sig Dispensed Refills Start Date End Date Status SocialSign.in SYSTEM W/DEVICE KITIndications:DM type 2, goal A1c [...] neuropathy, without long-term current use of insulin ([facility]) TAKE ONE TABLET BY MOUTH [...] as of this encounter (statuses as of 02/07/2024) Active Problems Problem Noted Date Diagnosed Date [...] as of this encounter (statuses as of 02/07/2024) Resolved Problems Problem Noted Date Diagnosed Date [...] as of this encounter (statuses as of 02/07/2024) Immunizations No known immunizationsdocumented as of this [...] as of this encounter Progress Notes * Marquita Frye CHRA - 02/07/2024 11:19 AM EDT MyCode lab reordered. documented in this encounter Plan of Treatment Upcoming Encounters Date Type Department Care Team (Late st Contact Info) Description 02/14/2024 1:10 PM EDT Laboratory Laboratory [facility] [address] [place] [phone] Isis Melara [place] [address] [address] [facility] [place] [address] 02/14/2024 2:00 PM EDT Immunization/Injecti on Hematology/Oncology Treatment, [place] [address] [place] [phone] Nurse, Med 4 [address] [place] [address] 02/29/2024 1:00 PM EDT Hospital Encounter Radiology, [address] [id number] 03/06/2024 11:30 AM EDT Office Visit Hematology/Oncology [facility] 200 [facility] [place] [phone] Pastora Aguilar CRNP 400 [facility] [place] [address] 04/17/2024 10:40 AM EDT Laboratory Laboratory [facility] 200 [facility] [place] [address] [place], Lab [address] [facility] [place] [address] 04/17/2024 11:45 AM EDT Immunization/Injecti on Hematology/Oncology Treatment, [place] [facility] [phone] Nurse, Med 200 [facility] [place] [address] 05/20/2024 2:15 PM EDT Office Visit Urology, [facility] 132 [facility] [place] [address] Isaías Novak MD [address] [place] [address] [place] [address] 07/01/2024 4:00 PM EDT Office Visit Family Practice [facility] 132 [facility] [place] [address] Dru Fritz MD 132 [facility] [place] [address] Scheduled Orders Name Type Priority Associated Diagnoses Orde r Schedule MYCODE SUBSEQUENT ADULT Lab Routine MyCode Research Other*[id number] Every 6 Months for 2 Occurrences starting 02/07/2024 until 02/26/2025 Health Maintenance Due Date Last Done Comments DISCUSS TOBACCO CESSATION (REFER TO SMARTSET #1832) 1959 COVID-19 Vaccine (#1) 1964 Pneumococcal Vaccine: [...] Additional history exists CKD HGB USE SMARTSET 64860 01/23/202501/23, 01/24/2024, 01/17/2024, Additional history exists CKD PHOS USE SMARTSET 18164 01/23/202512/31, 01/17/2024, 01/11/2024, Additional history exists GARDASIL-HPV IMMUNIZATION SERIES Aged Out No longer eligible based on patient's age to complete this topic Hepatitis B Aged Out No longer eligi ble based on patient's age to complete this topic MENINGOCOCCAL (MENACTRA/MENVEO) Aged Out No longer eligible based on patient's age to complete this topic documented as of this encounter Medical Devices Implanted Type Area Hog Sawyer Device Identifier Shelf Expiration Date Model / Serial / Lot Stent Trnscarotid Enroute 7x40 - [id number] Implanted:Qty: 1 on 01/25/2021 by Zeinab Robert MD at [facility] Left: [facility] [id number] 05/31/2023 -0740-C S / / [id number] documented as of this encounter Visit Diagnoses Diagnosis MyCode Research Other*[id number]- Primary documented in this encounter Advance Directives Latest Code Status on File Code Status Date Activated Date Inactivated Comments Full Code 01/25/2021 10:53 AM 01/26/2021 1:19 PM This order reflects the patients wishes and were consensually agreed upon. Care Teams Stock Manager Relationship Specialty Start Date End Date Dru Fritz MD [address] [place] [address] PCP - General Family Medicine 01/24/21 documented as of this encounter
--- OUTSIDE RECORDS SUMMARY | 2024-02-16 20:45 | External Medical Summary | Summary of Care ---
Author Name Unknown Organization [facility] Address [address] [place] [address] Phone [phone] Care Team Providers Care Programming Coordinator Name Role Phone Dru Fritz MD Primary Care Provider [phone] Reason for Visit * Reason Comments Infusion Hydration Encounter Details Date Type Department Care Team (Latest Contact Info) Description 12/03/2023 11:30 AM EST Hem/Onc Treatment Hematology/Oncology Treatment, [place] [address] [place] [address] Malignant neoplasm metastatic to bone (HCC)*; Prostate cancer metastatic to multiple sites (HCC) Allergies Active Allergy Reactions Criticality Noted Date Comments Amoxicillin-Pot Clavulanate 05/17/20 22 Dizziness and confused documented as of this encounter (statuses as of 02/02/2024) Medications Medication Sig Dispensed Refills Start Date End Date Status BOOK A TIGER SYSTEM W/DEVICE KITIndications:D M type 2, goal [...] 180 Tablet 3 3 05/02/20 24 Active K-Phos 500 MG Oral Tablet (potassium phosphate)Indica tions:Hypophosph atemia TAKE ONE TABLET BY MOUTH TWICE A DAY 180 Tablet 1 3 Active Empagliflozin 25 MG Oral Tablet (Jardiance)Indic ations:Type 2 diabetes mellitus with diabetic neuropathy, without long-term current use of insulin ([facility]) TAKE ONE TABLET BY MOUTH [...] for Nausea. 30 Tablet 2 3 Active Morphine Sulfate ER 15 MG Oral Tablet Extended Release (MS Contin)Indicatio ns:Cancer associated pain Take 1 Tablet by mouth in the morning and 1 Tablet before bedtime. 60 Tablet 0 3 Active Clopidogrel Bisulfate 75 MG Oral Tablet (pLAVix) TAKE ONE TABLET BY MOUTH IN THE MORNING 30 Tablet 5 3 01/05/20 24 Discontinued(Re fill) linaGLIPtin 5 MG Oral Tablet (Tradjenta)Indic ations:Type 2 diabetes mellitus with diabetic neuropathy, without long-term current use of insulin (HCC) TAKE ONE TABLET BY MOUTH EVERY MORNING 90 Tablet 0 3 12/09/19 24 Discontinued(Re fill) predniSONE 5 MG Oral Tablet (Deltasone)Indic ations:Prostate cancer metastatic to multiple sites (HCC) Take 1 Tablet by mouth in the morning and 1 Tablet before bedtime. 60 Tablet 5 3 12/26/19 24 Discontinued dexAMETHasone 4 MG Oral Tablet (Decadron)Indica tions:Prostate cancer metastatic to multiple sites (HCC) Take 8mg (2 tabs) twice a day x3 days starting the day before chemotherapy 72 Tablet 0 3 12/26/19 24 Discontinued Loratadine 10 MG Oral Tablet (Claritin)Indica tions:Prostate cancer metastatic to multiple sites (HCC) Take 10mg (1 tab) daily x5 days starting the day of chemotherapy 30 Tablet 0 3 12/26/19 24 Discontinued traMADol HCl 50 MG Oral Tablet (Ultram)Indicati ons:Malignant neoplasm metastatic to bone (HCC) Take 2 Tablets by mouth 3 times a day as needed for Pain, Moderate. 180 Tablet 0 4 12/31/19 24 Discontinued(Re fill) documented as of this encounter (statuses as of 02/02/2024) Active Problems Problem Noted Date Diagnosed Date [...] as of this encounter (statuses as of 02/02/2024) Resolved Problems Problem Noted Date Diagnosed Date [...] as of this encounter (statuses as of 02/02/2024) Immunizations No known immunizationsdocumented as of this [...] Pt discharged in stable condition. * Tash Mcinytre LPN - 12/03/2023 11:47 AM EST 1140: [...] 1:10 PM EDT Laboratory Laboratory [address] [place] [address] [place] [phone] [facility] [address] [facility] [place] [address] 02/14/2024 2:00 PM EDT Immunization/Injecti on Hematology/Oncology Treatment, [place] [address] [place] [phone] Nurse, Med [address] [place] [address] 02/29/2024 1:00 PM EDT Hospital Encounter Radiology, [address] [id number] 03/06/2024 11:30 AM EDT Office Visit Hematology/Oncology [address] [place] [address] [place] [phone] Pastora Aguilar CRNP [address] [place], [place] [address] [address] 04/17/2024 10:40 AM EDT Laboratory Laboratory [address] [place] [address] [place] [phone] Saritha [facility] [address] [facility] [place] [address] 04/17/2024 11:45 AM EDT Immunization/Injecti on Hematology/Oncology Treatment, [place] [address] [place] [phone] Nurse, Med [address] [place] [address] 05/20/2024 2:15 PM EDT Office Visit Urology, [facility] [place] [address] Isaías Novak MD [address] 270 [facility] [place] [id number] 07/01/2024 4:00 PM EDT Office Visit Family Practice [facility] 132 [place] [address] Dur Fritz MD 132 [place] [address] Health Maintenance Due Date Last Done Comments DISCUSS TOBACCO CESSATION (REFER TO SMARTSET #8712) 1960 COVID-19 Vaccine (#1) 1964 Pneumococcal Vaccine: [...] Additional history exists CKD HGB USE SMARTSET 17927 01/23/202501/23, 01/24/2024, 01/17/2024, Additional history exists CKD PHOS USE SMARTSET 86512 01/23/202512/31, 01/17/2024, 01/11/2024, Additional history exists GARDASIL-HPV IMMUNIZATION SERIES Aged Out No longer eligible based on patient's age to complete this topic Hepatitis B Aged Out No longer eligi ble based on patient's age to complete this topic MENINGOCOCCAL (MENACTRA/MENVEO) Aged Out No longer eligible based on patient's age to complete this topic documented as of this encounter Medical Devices Implanted Type Area Public Health Technologist Device Identifier Shelf Expiration Date Model / Serial / Lot Stent Trnscarotid Enroute 7x40 - [id number] Implanted:Qty: 1 on 01/25/2021 by Zeinab Robert MD at [facility] Left: [facility] [id number] 05/31/2023 SR-0740-C S / / [id number] documented as of this encounter Visit Diagnoses Diagnosis Malignant neoplasm metastatic to bone (HCC)- Primary Secondary malignant neoplasm of bone and bone marrow Prostate cancer metastatic to multiple sites (HCC) Malignant neoplasm of prostate documented in this encounter Administered Medications Inactive Administered Medications - up to 3 most recent administrations Medication Order MAR Action Action Date Dose Rate Site NSS infusion FOR HYDRATION Intravenous, at 500 mL/hr Administer over 2 Hours, ONCE, 1 dose, On 12/03/23 at 1245 Start Infusion 12/03/2023 11:40 AM EST 1,000 mL 500 mL/hr documented in this encounter Advance Directives Latest Code Status on File Code Status Date Activated Date Inactivated Comments Full Code 01/25/2021 10:53 AM 01/26/2021 1:19 PM This order reflects the patients wishes and were consensually agreed upon. Care Teams Programming Coordinator Relationship Specialty Start Date End Date Dru Fritz MD [address] [place] [address] PCP - General Family Medicine 01/24/21 documented as of this encounter
--- OUTSIDE RECORDS SUMMARY | 2024-02-16 20:45 | External Medical Summary | Summary of Care ---
Author Name Unknown Organization [facility] Address [address] [place] [address] Phone [phone] Care Team Providers Care Hyster Machine Operator Name Role Phone Dru Fritz MD Primary Care Provider [phone] Reason for Visit * Reason Onset Date Comments Appointment 02/07/2024 recall Encounter Details Date Type Department Care Team (Late st Contact Info) Description 02/07/2024 Telephone Vascular Surg [facility] [address] [place] [address] Andrew Zheng MD [address] [place], [place] [phone] Appointment (recall) Allergies Active Allergy Reactions Criticality Noted Date Comments Amoxicillin-Pot Clavulanate 05/17/20 22 Dizziness and confused documented as of this encounter (statuses as of 02/07/2024) Medications Medication Sig Dispensed Refills Start Date End Date Status [email or web address] SYSTEM W/DEVICE KITIndications:DM type 2, goal A1c [...] Description 02/14/2024 1:10 PM EDT Laboratory Laboratory [facility] [place] [address] [place] [phone] Saritha Lab [facility] [address] [facility] [place] [address] 02/14/2024 2:00 PM EDT Immunization/Injecti on Hematology/Oncology Treatment, [place] [address] [place] [phone] Nurse, Med [address] [place] [address] 02/29/2024 1:00 PM EDT Hospital Encounter Radiology, [place] [address] [place] [address] 03/06/2024 11:30 AM EDT Office Visit Hematology/Oncology [facility] [place] 200 [facility] [place] [phone] Pastora Aguilar CRNP 400 [facility] [place] [address] 04/17/2024 10:40 AM EDT Laboratory Laboratory [facility] Saritha [place] 200 [facility] [place] [phone] [place], Lab [facility] 200 [facility] [place] [address] 04/17/2024 11:45 AM EDT Immunization/Injecti on Hematology/Oncology Treatment, [place] [facility] [phone] Nurse, Med 200 [facility] [place] [address] 05/20/2024 2:15 PM EDT Office Visit Urology, [facility] 132 [facility] [place] [address] Isaías Novak MD [address] [place] [address] [place] [address] 07/01/2024 4:00 PM EDT Office Visit Family Practice [facility] 132 [facility] [place] [address] Dru Fritz MD 132 [facility] [place] [address] Health Maintenance Due Date Last Done Comments DISCUSS TOBACCO CESSATION (REFER TO SMARTSET #0360) 1960 COVID-19 Vaccine (#1) 1964 Pneumococcal Vaccine: [...] Additional history exists CKD HGB USE SMARTSET 19706 01/23/202501/23, 01/24/2024, 01/17/2024, Additional history exists CKD PHOS USE SMARTSET 36925 01/23/202512/31, 01/17/2024, 01/11/2024, Additional history exists GARDASIL-HPV IMMUNIZATION SERIES Aged Out No longer eligible based on patient's age to complete this topic Hepatitis B Aged Out No longer eligi ble based on patient's age to complete this topic MENINGOCOCCAL (MENACTRA/MENVEO) Aged Out No longer eligible based on patient's age to complete this topic documented as of this encounter Medical Devices Implanted Type Area Antique Dealer Device Identifier Shelf Expiration Date Model / Serial / Lot Stent Trnscarotid Enroute 7x40 - [id number] Implanted:Qty: 1 on 01/25/2021 by Zeinab Robert MD at [facility] Left: [facility] [id number] 05/31/2023 SR-0740-C S / / [id number] documented as of this encounter Advance Directives Latest Code Status on File Code Status Date Activated Date Inactivated Comments Full Code 01/25/2021 10:53 AM 01/26/2021 1:19 PM This order reflects the patients wishes and were consensually agreed upon. Care Teams Hyster Machine Operator Relationship Specialty Start Date End Date Dru Fritz MD [address] [place] [address] PCP - General Family Medicine 01/24/21 documented as of this encounter
--- OUTSIDE RECORDS SUMMARY | 2024-02-16 20:46 | External Medical Summary | Summary of Care ---
Author Name Unknown Organization [facility] Address [address] [place] [address] Phone [phone] Care Team Providers Care Lottery Clerk Name Role Phone Dru Fritz MD Primary Care Provider [phone] Reason for Visit * Reason Comments Outpatient Testing Encounter Details Date Type Department Care Team (Late st Contact Info) Description 01/24/2024 12:50 PM EDT Laboratory Laboratory [facility] [place] [address] [place] [address] [facility] [address] [place] [address] Prostate cancer metastatic to multiple sites (HCC); Metastasis to bone (HCC) Allergies Active Allergy Reactions Criticality Noted Date Comments Amoxicillin-Pot Clavulanate 05/17/20 22 Dizziness and confused documented as of this encounter (statuses as of 01/24/2024) Medications Medication Sig Dispensed Refills Start Date End Date Status Guesty SYSTEM W/DEVICE KITIndications:DM type 2, goal A1c [...] as of this encounter (statuses as of 01/24/2024) Active Problems Problem Noted Date Diagnosed Date [...] as of this encounter (statuses as of 01/24/2024) Resolved Problems Problem Noted Date Diagnosed Date [...] as of this encounter (statuses as of 01/24/2024) Immunizations No known immunizationsdocumented as of this [...] Team (Late st Contact Info) Description 01/24/2024 2:00 PM EDT Immunization/Injectio n Hematology/Oncology Treatment, [place] 200 [facility] [phone] Nurse, Med 200 [facility] [place] [place] [address] Arrived 02/15/2024 1:00 PM EDT Appointment Radiology, [address] [id number] 03/06/2024 11:30 AM EDT Office Visit Hematology/Oncology [facility] [place] [address] [place] [phone] Pastora Aguilar CRNP 400 [facility] [place] [id number] 04/17/2024 10:40 AM EDT Laboratory Laboratory [facility] [place] [address] [place] [phone] Saritha Lab [address] [place] [address] 04/17/2024 11:45 AM EDT Immunization/Injectio n Hematology/Oncology Treatment, [place] [address] [place] [address] Nurse, Med 200 [facility] [place] [place] [address] 05/20/2024 2:15 PM EDT Office Visit Urology, [facility] [address] [place] [address] Isaías Novak MD 27 [facility] [address] [place] [address] 07/01/2024 4:00 PM EDT Office Visit Family Practice [facility] 132 [place] [address] Dru Fritz MD 132 [place] [address] Pending Results Name Type Priority Associated Diagnoses Date /Time CBC WITH WBC DIFFERENTIAL Lab STAT Prostate cancer metastatic to multiple sites (HCC) 01/24/2024 1:14 PM EDT COMPREHENSIVE METABOLIC PANEL Lab STAT Prostate cancer metastatic to multiple sites (HCC) 01/24/2024 1:14 PM EDT PHOSPHORUS Lab STAT Metastasis to bone (HCC) 01/24/2024 1:14 PM EDT CBC Lab STAT Prostate cancer metastatic to multiple sites (HCC) 01/24/2024 1:14 PM EDT DIFFERENTIAL, AUTOMATED Lab STAT Prostate cancer metastatic to multiple sites (HCC) 01/24/2024 1:14 PM EDT Health Maintenance Due Date Last Done Comments DISCUSS TOBACCO CESSATION (REFER TO SMARTSET #3834) 1960 COVID-19 Vaccine (#1) 1964 Pneumococcal Vaccine: [...] 12/14/2023, 12/30, 05/15/2022, Additional history exists GFR 07/18/2024 01/17/2024, 12/30, 12/14/2023, Additional history exists CKD HGB USE SMARTSET 69934 01/16/202501/16, 01/17/2024, 01/11/2024, Additional history exists CKD PHOS USE SMARTSET 35656 01/16/202512/30, 01/11/2024, 11/29/2023, Additional history exists GARDASIL-HPV IMMUNIZATION SERIES Aged Out No longer eligible based on patient's age to complete this topic Hepatitis B Aged Out No longer eligi ble based on patient's age to complete this topic MENINGOCOCCAL (MENACTRA/MENVEO) Aged Out No longer eligible based on patient's age to complete this topic documented as of this encounter Medical Devices Implanted Type Area Cloth Shader Device Identifier Shelf Expiration Date Model / Serial / Lot Stent Trnscarotid Enroute 7x40 - [id number] Implanted:Qty: 1 on 01/25/2021 by Zeinab Robert MD at [facility] Left: [facility] [id number] 05/31/2023 SR-0740-C S / / [id number] documented as of this encounter Visit Diagnoses [...] and were consensually agreed upon. Care Teams Lottery Clerk Relationship Specialty Start Date End Date Dru Fritz MD [address] [place] [address] PCP - General Family Medicine 01/24/21 documented as of this encounter
--- OUTSIDE RECORDS SUMMARY | 2024-02-16 20:46 | External Medical Summary ---
Author Name Unknown Address Unknown Organization K[facility] [address] [place] [address] Laboratory Report Ordering Provider Test Date Status PATRICE QUINONES 01/24/2024 13:14:19 Final Observation Date Value Abnormality Reference (Units ) Status Nucleated erythrocytes/100 leukocytes [Ratio] in Blood by Automated count 01/24/2024 13:14:19 Final Performing Location [facility] [address] [address]
--- OUTSIDE RECORDS SUMMARY | 2024-02-16 20:46 | External Medical Summary | Summary of Care ---
Author Name Unknown Organization [facility] Address [address] [place] [address] Phone [phone] Care Team Providers Care Chest Painting Leader Name Role Phone Dru Fritz MD Primary Care Provider [phone] Encounter Details Date Type Department Care Team (Late st Contact Info) Description 01/16/2024 Telephone Family Practice [facility] [address] [place] [address] Dru Fritz MD [address] [place] [address] Allergies Active Allergy Reactions Criticality Noted Date Comments Amoxicillin-Pot Clavulanate 05/17/20 22 Dizziness and confused documented as of this encounter (statuses as of 01/16/2024) Medications Medication Sig Dispensed Refills Start Date End Date Status QUALIA (formerly known as LocalResponse) SYSTEM W/DEVICE KITIndications:DM type 2, goal A1c [...] long-term current use of insulin ([facility]) TAKE ONE TABLET BY MOUTH DAILY [...] as of this encounter (statuses as of 01/16/2024) Active Problems Problem Noted Date Diagnosed Date [...] as of this encounter (statuses as of 01/16/2024) Resolved Problems Problem Noted Date Diagnosed Date [...] as of this encounter (statuses as of 01/16/2024) Immunizations No known immunizationsdocumented as of this [...] Description 01/17/2024 10:40 AM EDT Laboratory Laboratory [facility] [address] [place] [phone] [facility] [address] [facility] [place] [address] 01/17/2024 11:15 AM EDT Office Visit Hematology/Oncology [facility] [place] [address] [place] [address] Elio Queen MD [address] [place] [address] 01/17/2024 11:45 AM EDT Immunization/Injectio n Hematology/Oncology Treatment, [place] 200 [facility] [place] [phone] Nurse, Med [address] [place] [address] 05/20/2024 2:15 PM EDT Office Visit Urology, [facility] [address] [place] [address] Isaías Novak MD [address] [place] [address] [place] [address] 07/01/2024 4:00 PM EDT Office Visit Family [facility] [address] [place] [address] Dru Fritz MD [address] [place] [address] Health Maintenance Due Date Last Done Comments DISCUSS TOBACCO CESSATION (REFER TO SMARTSET #2628) 1959 COVID-19 Vaccine (#1) 1964 Pneumococcal Vaccine: [...] Additional history exists CKD HGB USE SMARTSET 18445 01/10/202501/10, 01/11/2024, 12/14/2023, Additional history exists CKD PHOS USE SMARTSET 72820 01/10/202512/30, 11/29/2023, 10/10/2023, Additional history exists GARDASIL-HPV IMMUNIZATION SERIES Aged Out No longer eligible based on patient's age to complete this topic Hepatitis B Aged Out No longer eligi ble based on patient's age to complete this topic MENINGOCOCCAL (MENACTRA/MENVEO) Aged Out No longer eligible based on patient's age to complete this topic documented as of this encounter Medical Devices Implanted Type Area Journeyman Electrician Device Identifier Shelf Expiration Date Model / Serial / Lot Stent Trnscarotid Enroute 7x40 - [id number] Implanted:Qty: 1 on 01/25/2021 by Zeinab Robert MD at [facility] Left: [facility] [id number] 05/31/2023 SR-0740-C S / / [id number] documented as of this encounter Advance Directives Latest Code Status on File Code Status Date Activated Date Inactivated Comments Full Code 01/25/2021 10:53 AM 01/26/2021 1:19 PM This order reflects the patients wishes and were consensually agreed upon. Care Teams Chest Painting Leader Relationship Specialty Start Date End Date Dru Fritz MD [address] [place] [address] PCP - General Family Medicine 01/24/21 documented as of this encounter
--- OUTSIDE RECORDS SUMMARY | 2024-02-16 20:46 | External Medical Summary ---
Author Name Unknown Address Unknown Organization [id number] [place] [address] Laboratory Report Ordering Provider Test Date Status PATRICE QUINONES 01/24/2024 13:14:19 Final Observation Date Value Abnormality Reference (Units ) Status SYNC LEUKOCYTES IN BLOOD BY AUTOMATED COUNT 01/24/2024 13:14:19 5.09 4.00-10.80 (K/uL) Final Segs 01/24/2024 13:14:19 69.3 40.0-75.0 (%) Final Lymphs % 01/24/2024 13:14:19 21.2 18.0-42.0 (%) Final Monos 01/24/2024 13:14:19 7.1 1.0-11.0 (%) Final Eosinophils 01/24/2024 13:14:19 1.4 0.0-6.0 (%) Final Basos 01/24/2024 13:14:19 1.0 0.0-2.0 (%) Final Absolute Segs 01/24/2024 13:14:19 3.53 1.80-7.70 (K/uL) Final Lymphs, absolute 01/24/2024 13:14:19 1.08 1.00-4.80 (K/ul) Final Monos, Abs 01/24/2024 13:14:19 0.36 0.00-1.10 (K/uL) Final Eos, Abs 01/24/2024 13:14:19 0.07 0.00-0.70 (K/uL) Final Basos, Abs 01/24/2024 13:14:19 0.05 0.00-0.20 (K/uL) Final Performing Location [facility] [address] [place] [address]
--- OUTSIDE RECORDS SUMMARY | 2024-02-16 20:46 | External Medical Summary | Summary of Care ---
Author Name Unknown Organization [facility] Address [address] [facility] [place] [address] Phone [phone] Care Team Providers Care Calculus Tutor Name Role Phone Dru Fritz MD Primary Care Provider [phone] Reason for Visit * Reason Onset Date Comments FYI 01/24/2024 LGI Encounter Details Date Type Department Care Team (Late st Contact Info) Description 01/24/2024 Telephone Family Practice [facility] [address] [place] [address] Dru Fritz MD [address] [place] [address] FYI (LGI) Allergies Active Allergy Reactions Criticality Noted Date Comments Amoxicillin-Pot Clavulanate 05/17/20 22 Dizziness and confused documented as of this encounter (statuses as of 01/25/2024) Medications Medication Sig Dispensed Refills Start Date End Date Status [employer] SYSTEM W/DEVICE KITIndications:DM type 2, goal A1c [...] Description 02/14/2024 1:10 PM EDT Laboratory Laboratory [facility] [place] [address] [facility] [place] [address] [facility] [place] [address] [address] [facility] [place] [address] 02/14/2024 2:00 PM EDT Immunization/Injectio n Hematology/Oncology Treatment, [place] [address] [facility] [place] [address] Nurse, Med 200 [facility] [place] [place] [address] 02/15/2024 1:00 PM EDT Appointment Radiology, [address] [address] 03/06/2024 11:30 AM EDT Office Visit Hematology/Oncology [facility] [address] [place] [address] Pastora Aguilar CRNP 400 [facility] [place] [address] 04/17/2024 10:40 AM EDT Laboratory Laboratory [facility] [address] [facility] [place] [phone] [place], Lab [facility] [address] [facility] [place] [address] 04/17/2024 11:45 AM EDT Immunization/Injectio n Hematology/Oncology Treatment, [place] [address] [facility] [phone] Nurse, Med [address] [facility] [place] [address] 05/20/2024 2:15 PM EDT Office Visit Urology, [facility] 132 [facility] [place] [address] Isaías Novak MD [address] [address] 07/01/2024 4:00 PM EDT Office Visit Family Practice [facility] 132 [facility] [place] [address] Dru Fritz MD 132 [facility] [place] [address] Health Maintenance Due Date Last Done Comments DISCUSS TOBACCO CESSATION (REFER TO SMARTSET #7442) 1960 COVID-19 Vaccine (#1) 1964 Pneumococcal Vaccine: [...] Additional history exists CKD HGB USE SMARTSET 24149 01/23/202501/23, 01/24/2024, 01/17/2024, Additional history exists CKD PHOS USE SMARTSET 40448 01/23/202512/31, 01/17/2024, 01/11/2024, Additional history exists GARDASIL-HPV IMMUNIZATION SERIES Aged Out No longer eligible based on patient's age to complete this topic Hepatitis B Aged Out No longer eligi ble based on patient's age to complete this topic MENINGOCOCCAL (MENACTRA/MENVEO) Aged Out No longer eligible based on patient's age to complete this topic documented as of this encounter Medical Devices Implanted Type Area Business Intelligence Manager Device Identifier Shelf Expiration Date Model / Serial / Lot Stent Trnscarotid Enroute 7x40 - [id number] Implanted:Qty: 1 on 01/25/2021 by Zeinab Robert MD at [facility] Left: [facility] [id number] 05/31/2023 SR-0740-C S / / [id number] documented as of this encounter Advance Directives Latest Code Status on File Code Status Date Activated Date Inactivated Comments Full Code 01/25/2021 10:53 AM 01/26/2021 1:19 PM This order reflects the patients wishes and were consensually agreed upon. Care Teams Calculus Tutor Relationship Specialty Start Date End Date Dru Frtiz MD [address] [place] [address] PCP - General Family Medicine 01/24/21 documented as of this encounter
--- OUTSIDE RECORDS SUMMARY | 2024-02-16 20:46 | External Medical Summary | Summary of Care ---
Author Name Unknown Organization [facility] Address [address] [place] [address] Phone [phone] Care Team Providers Care Compliance Analyst Name Role Phone Dru Fritz MD Primary Care Provider [phone] Reason for Visit * Reason Comments Medication Administration Xgeva held due to Low calcium level Encounter Details Date Type Department Care Team (Late st Contact Info) Description 01/17/2024 11:45 AM EDT Immunization/Inj ection Hematology/Oncology Treatment, [place] [address] [facility] [place] [address] Nurse, Med 200 [place] [address] Arrived Allergies Active Allergy Reactions Criticality Noted Date Comments Amoxicillin-Pot Clavulanate 05/17/20 22 Dizziness and confused documented as of this encounter (statuses as of 01/17/2024) Medications Medication Sig Dispensed Refills Start Date End Date Status [employer]le[employer] SYSTEM W/DEVICE KITIndications:DM type 2, goal A1c [...] neuropathy, without long-term current use of insulin ([facility]) TAKE ONE TABLET BY MOUTH DAILY IN [...] as of this encounter (statuses as of 01/17/2024) Active Problems Problem Noted Date Diagnosed Date [...] as of this encounter (statuses as of 01/17/2024) Resolved Problems Problem Noted Date Diagnosed Date [...] as of this encounter (statuses as of 01/17/2024) Immunizations No known immunizationsdocumented as of this [...] as of this encounter Nursing Notes * Maegan Rowell LPN - 01/17/2024 12:32 PM EDT Calcium 6.6. Spoke with Dr. Queen advised to hold Xgeva for today 01/16, advised that patient shouldbe taking 1200-1500mg of Calcium, Vitamin D 2,000 units per day. Then will have patient return next for labs and possible xgeva Spoke with patient, advised to be taking Calcium 1200-1500mg daily and Vitamin D 2,000 units daily.Advised to come next for Labs and Xgeva (if calcium level increases to normal). Patient and family understood and agreed with plan documented in this encounter Plan of Treatment Upcoming Encounters Date Type Department Care Team (Late st Contact Info) Description 01/24/2024 12:50 PM EDT Laboratory [facility] [address] [place] [phone] [facility] [address] [place] [address] 01/24/2024 2:00 PM EDT Immunization/Injecti on Hematology/[facility]cology [facility], [place] [facility] [phone] Nurse, Med 4 200 [facility] [place] [address] 03/06/2024 11:30 AM EDT Office Visit Hematology/Oncology [facility] [place] 200 [facility] [place] [address] Pastora Aguilar CRNP 400 [facility] [place] [phone] 04/17/2024 10:40 AM EDT Laboratory Laboratory [facility] 200 [facility] [place] [phone] [place], Lab [address] [place] [address] 04/17/2024 11:45 AM EDT Immunization/Injecti on Hematology/Oncology Treatment, [place] [facility] [phone] Nurse, Med 4 200 [facility] [place] [address] 05/20/2024 2:15 PM EDT Office Visit Urology, [facility] 132 [facility] [place] [address] Isaías Novak MD [address] [place] [address] [place] [address] 07/01/2024 4:00 PM EDT Office Visit Family Practice [facility] 132 [facility] [place] [address] Dru Fritz MD 132 [facility] [place] [address] Health Maintenance Due Date Last Done Comments DISCUSS TOBACCO CESSATION (REFER TO SMARTSET #0944) 1960 COVID-19 Vaccine (#1) 1964 Pneumococcal Vaccine: [...] Additional history exists CKD HGB USE SMARTSET 23919 01/16/202501/16, 01/17/2024, 01/11/2024, Additional history exists CKD PHOS USE SMARTSET 17562 01/16/202512/30, 01/11/2024, 11/29/2023, Additional history exists GARDASIL-HPV IMMUNIZATION SERIES Aged Out No longer eligible based on patient's age to complete this topic Hepatitis B Aged Out No longer eligi ble based on patient's age to complete this topic MENINGOCOCCAL (MENACTRA/MENVEO) Aged Out No longer eligible based on patient's age to complete this topic documented as of this encounter Medical Devices Implanted Type Area Application Processor Device Identifier Shelf Expiration Date Model / Serial / Lot Stent Trnscarotid Enroute 7x40 - [id number] Implanted:Qty: 1 on 01/25/2021 by Zeinab Robert MD at [facility] Left: Carotid [facility] [id number] 05/31/2023 SR-0740-C S / / [id number] documented as of this encounter Advance Directives Latest Code Status on File Code Status Date Activated Date Inactivated Comments Full Code 01/25/2021 10:53 AM 01/26/2021 1:19 PM This order reflects the patients wishes and were consensually agreed upon. Care Teams Compliance Analyst Relationship Specialty Start Date End Date Dru Fritz MD [address] [place] [address] PCP - General Family Medicine 01/24/21 documented as of this encounter
--- OUTSIDE RECORDS SUMMARY | 2024-02-16 20:46 | External Medical Summary ---
Author Name Unknown Address Unknown Organization [facility] [address] [place] [address] Laboratory Report Ordering Provider Test Date Status PATRICE QUINONES 01/24/2024 13:14:19 Final Observation Date Value Abnormality Reference (Units ) Status WBC, Total 01/24/2024 13:14:19 5.09 4.00-10.8 0 (K/uL) Final RBC 01/24/2024 13:14:19 2.69 4.50-5.25 (M/uL) Final Hemoglobin 01/24/2024 13:14:19 8.0 Below low normal 14 .0-16.8 (g/dL) Final HCT 01/24/2024 13:14:19 27.0 Below low normal 40. 0-48.4 (%) Final MCV 01/24/2024 13:14:19 100.4 82.0-99.5 (fL) Final MCH 01/24/2024 13:14:19 29.7 27.0-34.0 (pg) Final MCHC 01/24/2024 13:14:19 29.6 32.0-36.0 (g/dL) Final RDW 01/24/2024 13:14:19 20.3 11.5-15.5 (%) Final Platelets 01/24/2024 13:14:19 198 140-400 (K /uL) Final MPV 01/24/2024 13:14:19 7.6 6.6-11.1 ( fL) Final Performing Location [facility] [address] [place] [address]
--- OUTSIDE RECORDS SUMMARY | 2024-02-16 20:46 | External Medical Summary | Summary of Care ---
Author Name Unknown Organization [facility] Address [address] [facility] [place] [address] Phone [phone] Care Team Providers Care Flumer Name Role Phone Dru Fritz MD Primary Care Provider [phone] Reason for Visit * Reason Onset Date Comments FYI 01/24/2024 LGI Encounter Details Date Type Department Care Team (Late st Contact Info) Description 01/24/2024 Telephone Family Practice [facility] [address] [place] [address] Dru Fritz MD [address] [place] [address] FYI (LGI) Allergies Active Allergy Reactions Criticality Noted Date Comments Amoxicillin-Pot Clavulanate 05/17/20 22 Dizziness and confused documented as of this encounter (statuses as of 01/24/2024) Medications Medication Sig Dispensed Refills Start Date End Date Status Shipping Easy SYSTEM W/DEVICE KITIndications:DM type 2, goal A1c [...] encounter Miscellaneous Notes * Telephone Encounter - Spencer Mendiola LPN - 01/24/2024 12:41 PM EDT Through [...] Colonoscopy outreach: Left message Thank you. Spencer Mendiola LPN documented in this encounter Plan of Treatment Upcoming Encounters Date Type Department Care Team (Late st Contact Info) Description 01/24/2024 2:00 PM EDT Immunization/Injectio n Hematology/Oncology Treatment, [place] [address] [facility] [phone] Nurse, Med 4 200 [facility] [place] [address] 02/15/2024 1:00 PM EDT Appointment Radiology, [address] [phone] 03/06/2024 11:30 AM EDT Office Visit Hematology/Oncology [facility] [place] 200 [place] [phone] Pastora Aguilar CRNP 400 [facility] [place] [address] 04/17/2024 10:40 AM EDT Laboratory Laboratory [facility] [place] [place] 200 [facility] [place] [phone] [place], Lab [address] [place] [address] 04/17/2024 11:45 AM EDT Immunization/Injectio n Hematology/Oncology Treatment, [place] [address] [facility] [phone] Nurse, Med 4 200 [place] [address] 05/20/2024 2:15 PM EDT Office Visit Urology, [facility] 132 [facility] [place] [address] Isaías Novak MD [address] [place] [address] [place] [address] 07/01/2024 4:00 PM EDT Office Visit Family Practice [facility] 132 [facility] [place] [address] Dru Fritz MD [address] [place] [address] Health Maintenance Due Date Last Done Comments DISCUSS TOBACCO CESSATION (REFER TO SMARTSET #1255) 1960 COVID-19 Vaccine (#1) 1965 Pneumococcal Vaccine: [...] Additional history exists CKD HGB USE SMARTSET 80729 01/16/202501/16, 01/17/2024, 01/11/2024, Additional history exists CKD PHOS USE SMARTSET 04977 01/16/202512/30, 01/11/2024, 11/29/2023, Additional history exists GARDASIL-HPV IMMUNIZATION SERIES Aged Out No longer eligible based on patient's age to complete this topic Hepatitis B Aged Out No longer eligi ble based on patient's age to complete this topic MENINGOCOCCAL (MENACTRA/MENVEO) Aged Out No longer eligible based on patient's age to complete this topic documented as of this encounter Medical Devices Implanted Type Area Programming Instructor Device Identifier Shelf Expiration Date Model / Serial / Lot Stent Trnscarotid Enroute 7x40 - [id number] Implanted:Qty: 1 on 01/25/2021 by Zeinab Robert MD at [facility] Left: Carotid [facility] [id number] 05/31/2023 SR-0740-C S / / [id number] documented as of this encounter Advance Directives Latest Code Status on File Code Status Date Activated Date Inactivated Comments Full Code 01/25/2021 10:53 AM 01/26/2021 1:19 PM This order reflects the patients wishes and were consensually agreed upon. Care Teams Flumer Relationship Specialty Start Date End Date Dru Fritz MD 132 [facility] [place] [address] PCP - General Family Medicine 01/24/21 documented as of this encounter
--- OUTSIDE RECORDS SUMMARY | 2024-02-16 20:46 | External Medical Summary ---
Author Name Unknown Address Unknown Organization [facility] [place] [address] Laboratory Report Ordering Provider Test Date Status PATRICE QUINONES 01/17/2024 11:04:07 Final Observation Date Value Abnormality Reference (Units ) Status BUN 01/17/2024 11:04:07 13 6-20 (mg/dL) Final Creatinine 01/17/2024 11:04:07 1.3 Above high normal 0.6-1.2 (mg/dL) Final Glomerular filtration rate/1.73 sq M.predicted [Volume Rate/Area] in Serum, Plasma or Blood by Creatinine-based formula (CKD-EPI) 01/17/2024 11:04:07 60 >=60 (mL/min) Final eGFR is calculated based on the CKD-EPI 2020 equation Sodium 01/17/2024 11:04:07 143 135-146 (m mol/L) Final Potassium 01/17/2024 11:04:07 4.4 3.5-5.1 (m mol/L) Final Cl 01/17/2024 11:04:07 108 Above high normal 98 -107 (mmol/L) Final CO2 01/17/2024 11:04:07 20 Below low normal 22- 32 (mmol/L) Final Anion gap 01/17/2024 11:04:07 15 7-15 (mmol /L) Final Glucose 01/17/2024 11:04:07 125 Above high normal 70 -120 (mg/dL) Final Albumin 01/17/2024 11:04:07 3.3 Below low normal 3.8 -5.0 (g/dL) Final AST (Aspartate aminotransferase) 01/17/2024 11:04:07 25 10-50 (U/L) Fin al Alk Phos 01/17/2024 11:04:07 299 Above high normal 35 -130 (U/L) Final Bilirubin, Total 01/17/2024 11:04:07 0.2 <=1 .2 (mg/dL) Final Calcium 01/17/2024 11:04:07 6.6 Below low normal 8.4 -10.2 (mg/dL) Final Protein 01/17/2024 11:04:07 5.7 Below low normal 6.0 -8.3 (g/dL) Final ALT (Alanine aminotransferase) 01/17/2024 11:04:07 12 10-50 (U/L) Hilton harrell Performing Location [facility] [address] [place] [address]
--- OUTSIDE RECORDS SUMMARY | 2024-02-16 20:46 | External Medical Summary | Summary of Care ---
Author Name Unknown Organization [facility] Address [address] [place] [place] [address] Phone [phone] Care Team Providers Care Seismograph Shooter Name Role Phone Dru Fritz MD Primary Care Provider [phone] Reason for Visit * Reason Comments Follow Up 6 week follow up. Nadine jacksonrdaron from hospital Sunday. Encounter Details Date Type Department Care Team (Late st Contact Info) Description 01/17/2024 11:15 AM EDT Office Visit Hematology/Oncology [facility] [place] [address] [facility] [place] [phone] Elio Queen MD [facility] [address] Prostate cancer metastatic to multiple sites (HCC)*; Dehydration; Metastasis to bone (HCC) Allergies Active Allergy Reactions Criticality Noted Date Comments Amoxicillin-Pot Clavulanate 05/17/20 22 Dizziness and confused documented as of this encounter (statuses as of 01/17/2024) Medications Medication Sig Dispensed Refills Start Date End Date Status Infinite Monkeys SYSTEM W/DEVICE KITIndications:DM type 2, goal A1c [...] Sign Reading Time Taken Comments Blood Pressure 105/71 01/17/2024 11:10 AM EDT Pulse 126 01/17/2024 11:10 AM EDT Temperature 36.4 C (97.5 F) 01/17/2024 1 1:10 AM EDT Respiratory Rate 16 01/17/2024 11:1 0 AM EDT Oxygen Saturation 98% 01/17/2024 11: 10 AM EDT Inhaled Oxygen Concentration - - Weight 64.3 kg (141 lb 11.2 oz) 024 11:10 AM EDT Height - - Body Mass Index 21.55 12/26/2023 2:32 PM EDT documented in this [...] Progress Notes * Elio Queen MD - 01/17/2024 11:15 AM EDT Hematology/Oncology Outpatient Clinic note Oswaldo Melara [address] [place] [address] Name: Brett Chaudhari Date: 11/01/2023 CHIEF COMPLAINT: Brett Chaudhari is a 63 year old male here today for f/u visit today. HEMATOLOGY/ONCOLOGY DIAGNOSIS: Prostate cancer, bone metastasis. Ramsay score 4+5 -PSA level was around 31 [...] --> Xgeva change to every 3 monthly. - Pluvicto treatment at [facility]. 1st treatment on 01/04/2024. DIAGNOSTIC WORKUP: Earlier he was seen by [...] as of 05/31/2021, he was admitted at [facility]. I reviewed those records. He had Velasquez's catheter for about 2 months which was removed in late August 2021. Biopsy from the prostate gland showed prostatic adenocarcinoma Artur score 4+5. Bone scan --> Multiple focal areas of increased uptake are seen in spine, ribs, sternum, pelvis,and right proximal femur suggestive of metastatic disease (06/13/2021). OTHER IMPORTANT HISTORY: -Type 2 diabetes, PAD, L carotid [place] [facility] [place], chronic systolic [...] (H) 94.86 (H) PET-CT scan done at [facility] on 07/04/2023: -interval increase in size and [...] He was seen by radiation oncologist at [facility] , he also hada 2nd opinion, decided [...] follow-up, accompanied by his in the office. Recently he received 1st treatment with Pulvicto on 01/04/2024 at [facility], but week later, he was admitted at [facility] for dehydration, worsening kidney function, worsening blood counts, I reviewed hospital records, he received IV hydration, improvement of kidney function noted and then he was discharged after 2 days. He says that his pain is better controlled, he takes tramadol on p.r.n. basis, perhaps twice a day,does not take morphine on regular basis, no nausea no vomiting, denies any bleeding from any sites.Ambulates slowly by himself. Denies any increasing leg edema. Past Medical History: Diagnosis Date Chronic systolic heart failure (HCC) 03/31/2019 DM type 2, goal A1c below 7 Heart failure, etiology unknown ([facility]) cardiac cath -02/04 10-20% block History of left common carotid artery stent placement 03/08/2021 HTN, goal to be determined Nonischemic cardiomyopathy (HCC) 03/31/2019 Primary insomnia 03/07/2021 Sciatica Past Surgical History: Procedure Laterality Date TRANSCATH STENT-CAROTID ARTERY, W/EMBOL PROTECTION Left 01/25/2021 CAROTID STENT WITH DISTAL PROTECTION performed by Zeinab Robert MD [place] [facility] [place] TRANSCATH STENT-CAROTID ARTERY, W/EMBOL PROTECTION Left 01/25/2021 CAROTID STENT WITH DISTAL PROTECTION TRANSCAROTID ARTERY REVASCULARIZATION performed by Zeinab Robert MD at [place] [facility] [place] Social History Socioeconomic History Marital status: Spouse name: Not on file Number of children: 3 Years of education: Not on file Highest education level: Not on file Occupational History Employer: [employer] Tobacco Use Smoking status: Every Day [...] Current Outpatient Medications Medication Sig Dispense Refill Infinite Monkeys SYSTEM W/DEVICE KIT Use up to four times a day as directed 1 Kit 0 Aspirin 81 MG TBEC Take 1 Tablet by mouth in the morning. sildenafil (REVATIO) 20 MG Tablet Take 3 tablets by mouth 1 hour prior to sexual activity 30 Tab 5 Blood Glucose Monitoring Suppl ([email or web address] VERIO) w/Device KIT Use up to 4 [...] MOUTH TWICE A DAY 180 Tablet 3 K-Phos 500 MG Oral Tablet (potassium phosphate) [...] as needed for Nausea. 30 Tablet 2 Morphine Sulfate ER 15 MG Oral Tablet Extended Release (MS Contin) Take 1 Tablet by mouth in the morning and 1 Tablet before bedtime. 60 Tablet 0 linaGLIPtin 5 MG Oral Tablet (Tradjenta) TAKE ONE TABLET BY MOUTH EVERY MORNING 90 Tablet 1 Morphine Sulfate 15 MG Oral Tablet (Msir) Take 1 Tablet by mouth in the morning and 1 Tablet beforebedtime. 60 Tablet 0 PARoxetine HCl 10 MG Oral Tablet (Paxil) Take 1 Tablet by mouth in the morning. 90 Tablet 3 traMADol HCl 50 MG Oral Tablet (Ultram) Take 2 Tablets by mouth 3 times a day as needed for Pain, Moderate. 180 Tablet 0 Clopidogrel Bisulfate 75 MG Oral Tablet (pLAVix) TAKE ONE TABLET BY MOUTH IN THE MORNING 30 Tablet 5 FLUoxetine HCl 20 MG Oral Capsule (PROzac) Take 1 Capsule by mouth in the morning. 90 Capsule 3 No current facility-administered medications for this visit. REVIEW OF SYSTEMS: See HPI - otherwise negative OBJECTIVE: BP 105/71 (BP Site: Left Arm, BP Position: Sitting, BP Cuff Size: Regular) | Pulse 126 | Temp 36.4 C (97.5 F) (Tympanic) | Resp 16 | Wt 64.3 kg (141 lb 11.2 oz) | SpO2 98% | BMI 21.55 kg/m | BSA 1.76 m PHYSICAL EXAM: ECOG: Performance Status 1 [...] 3 cycles of docetaxel chemotherapy (done at [facility]: - Interval worsening of the bony metastatic disease (significant increase in the number an FDG uptake noted). Repeat PSA level on 11/29/2023 --> 156 PSA Latest Ref Rng <4.10 ng/mL 12/14/2023 236.20 (H) 01/11/2024 414.80 (H) Blood workup done on 01/17/2024: -WBC 6900, H&H of 7.7/26.5, Platelet count of 186195 -BUN/Creat: 13/1.3, Calcium 6.6, albumin 3.3 -normal LFT other than alkaline phosphatase of 299. -phosphorus --> 3.5. IMPRESSION/PLAN: Prostate cancer, bone metastasis. Disease progression noted while on Taxotere chemotherapy so It was discontinued. Now started him on Pulvicto treatment at [facility], received 1st treatment on 01/03/2022, about week after that, he was admitted at [facility], he had a worsening anemia, worsening kidney function, dehydration, possible UTI, he received IV hydration with improvement of the kidney function noted Overall he is feeling weak and tired, no significant bone pain, he takes tramadol for the symptomatic treatment, no bleeding from any sites. I reviewed his blood workup done today, serum creatinine around 1.3 mg/dL, hypocalcemia noted. Nowadays he gets Xgeva every 3 monthly but because of low Calcium, will hold Xgeva for today. Last Xgevawas in October 2023. Advised him to take vitamin-D and Calcium supplementation on regular basis. Vitamin B12 level is close to the lower limit of normal, advised him to take Vitamin B12 [id number] microgram every day. Will repeat blood workup next week. I am planning to see him back in about 4 to 6 weeks. He is scheduled for 2nd treatment with Pulvicto 6 weeks from the 1st treatment but because of the low hemoglobin, he may not receive the treatment as we planned. Dr. Elio Queen Hem/Onc (This note was completed using the dictation program Fluency Direct. As such, there may be misspellings word substitutions, or other variations that should not change the essence of the clinical content of this encounter note. If there is need for further clarification, please direct questions to the provider listed above.) documented in this encounter Nursing Notes * Tash Gonzalez MED ASSIST - 01/17/2024 11:13 AM EDT Patient identifed by name and birthdate Do [...] it for you? ALREADY ACTIVE Filed Vitals: 01/17/24 1110 BP: 105/71 Pulse: 126 Resp: 16 Temp: 36.4 C (97.5 F) TempSrc: Tympanic SpO2: 98% Weight: 64.3 kg (141 lb 11.2 oz) Patient was instructed to not get up [...] Description 01/24/2024 12:50 PM EDT Laboratory Laboratory [facility] [place] [address] [facility] [place] [phone] Isis Melara [place] [address] [address] [facility] [place] [address] 01/24/2024 2:00 PM EDT Immunization/Injecti on Hematology/Oncology Treatment, [address] [place] [phone] Nurse, Med 4 [address] [facility] [place] [address] 03/06/2024 11:30 AM EDT Office Visit Hematology/Oncology [facility] [address] [facility] [place] [phone] Pastora Aguilar CRNP [address] [facility] [place] [address] 04/17/2024 10:40 AM EDT Laboratory Laboratory [facility] [address] [facility] [place] [phone] Saritha Lab [facility] [address] [facility] [place] [address] 04/17/2024 11:45 AM EDT Immunization/Injecti on Hematology/Oncology Treatment, [place] [facility] [phone] Nurse, Med 4 [address] [facility] [place] [address] 05/20/2024 2:15 PM EDT Office Visit Urology, [facility] [address] [place] [address] Isaías Novak MD [address] [place] [address] [place] [address] 07/01/2024 4:00 PM EDT Office Visit Family Practice [facility] [address] [place] [address] Dru Fritz MD [address] [place] [address] Health Maintenance Due Date Last Done Comments [...] Additional history exists CKD HGB USE SMARTSET 52702 01/16/202501/16, 01/17/2024, 01/11/2024, Additional history exists CKD PHOS USE SMARTSET 32183 01/16/202512/30, 01/11/2024, 11/29/2023, Additional history exists GARDASIL-HPV IMMUNIZATION SERIES Aged Out No longer eligible based on patient's age to complete this topic Hepatitis B Aged Out No longer eligi ble based on patient's age to complete this topic MENINGOCOCCAL (MENACTRA/MENVEO) Aged Out No longer eligible based on patient's age to complete this topic documented as of this encounter Medical Devices Implanted Type Area Patent Counsel Device Identifier Shelf Expiration Date Model / Serial / Lot Stent Trnscarotid Enroute 7x40 - [id number] Implanted:Qty: 1 on 01/25/2021 by Zeinab Robert MD at [facility] Left: Carotid [facility] [id number] 05/31/2023 SR-0740-C S / / [id number] documented as of this encounter Results * PHOSPHORUS (01/17/2024 11:04 AM EDT) Phosphorus 3.5 2.5 - 4.8 mg/dL 01/17/2024 12:28 PM EDT [facility] 56-02 Blood Venous blood specimen / Unknown Venipuncture / Unknown 01/17/2024 11:04 AM EDT 01/17/2024 11:04 AM EDT Elio Queen MD LAB BLOOD ORDERABLES [facility] [address] [place] [address] documented in this encounter Visit Diagnoses Diagnosis Prostate cancer metastatic to multiple sites (HCC)- Primary Malignant neoplasm of prostate Dehydration Metastasis to bone (HCC) Secondary malignant neoplasm of bone and bone marrow documented in this encounter Advance Directives Latest Code Status on File Code Status Date Activated Date Inactivated Comments Full Code 01/25/2021 10:53 AM 01/26/2021 1:19 PM This order reflects the patients wishes and were consensually agreed upon. Care Teams Seismograph Shooter Relationship Specialty Start Date End Date Dru Fritz MD [address] [facility] [place] [address] PCP - General Family Medicine 01/24/21 documented as of this encounter"
--- OUTSIDE RECORDS SUMMARY | 2024-02-16 20:46 | External Medical Summary ---
Author Name Unknown Address Unknown Organization [facility] [address] [place] [address] Laboratory Report Ordering Provider Test Date Status PATRICE QUINONES 01/17/2024 11:04:07 Final Observation Date Value Abnormality Reference (Units ) Status SYNC LEUKOCYTES IN BLOOD BY AUTOMATED COUNT 01/17/2024 11:04:07 6.98 4.00-10.80 (K/uL) Final Neutrophils/100 leukocytes in Blood by Manual count 01/17/2024 11:04:07 75.0 40.0-75.0 (%) Final Lymphocytes/100 leukocytes in Blood by Manual count 01/17/2024 11:04:07 17.0 Below low normal 18.0-42.0 (%) Final Monocytes/100 leukocytes in Blood by Manual count 01/17/2024 11:04:07 6.0 1.0-11.0 (%) Final Eosinophils/100 leukocytes in Blood by Manual count 01/17/2024 11:04:07 1.0 0.0-6.0 (%) Final Metamyelocytes/100 leukocytes in Blood by Manual count 01/17/2024 11:04:07 1.0 Above high normal <=0.0 (%) Final Neutrophils [#/volume] in Blood by Manual count 01/17/2024 11:04:07 5.24 1.80-7.70 (K/uL) Final Lymphocytes [#/volume] in Blood by Manual count 01/17/2024 11:04:07 1.19 1.00-4.80 (K/uL) Final Monocytes [#/volume] in Blood by Manual count 01/17/2024 11:04:07 0.42 0.00-1.10 (K/uL) Final Eosinophils [#/volume] in Blood by Manual count 01/17/2024 11:04:07 0.07 0.00-0.70 (K/uL) Final Metamyelocytes [#/volume] in Blood by Manual count 01/17/2024 11:04:07 0.07 Above high normal <=0.00 (K/uL) Final Nucleated erythrocytes/100 leukocytes [Ratio] in Blood by Automated count 01/17/2024 11:04:07 Final Performing Location [facility] - [address] [place] [address]
--- OUTSIDE RECORDS SUMMARY | 2024-02-16 20:46 | External Medical Summary | Summary of Care ---
Author Name Unknown Organization [facility] Address [address] [place] [address] Phone [phone] Care Team Providers Care Office Rep Name Role Phone Dru Fritz MD Primary Care Provider [phone] Reason for Visit * Reason Comments Outpatient Testing Encounter Details Date Type Department Care Team (Late st Contact Info) Description 01/17/2024 10:40 AM EDT Laboratory Laboratory [facility] [address] [place] [phone] [facility] [address] [place] [address] Prostate cancer metastatic to multiple sites (HCC); Dehydration; Metastasis to bone (HCC) Allergies Active Allergy Reactions Criticality Noted Date Comments Amoxicillin-Pot Clavulanate 05/17/20 22 Dizziness and confused documented as of this encounter (statuses as of 01/17/2024) Medications Medication Sig Dispensed Refills Start Date End Date Status Ludesi SYSTEM W/DEVICE KITIndications:DM type 2, goal A1c [...] Care Team (Late st Contact Info) Description 03/06/2024 11:30 AM EDT Office Visit Hematology/Oncology [facility] [facility] [place] [address] [place] [address] Pastora Aguilar CRNP [address] [facility] [place] [address] 04/17/2024 10:40 AM EDT Laboratory Laboratory [address] [place] [address] [place] [phone] Saritha Lab [facility] [address] [facility] [place] [address] 04/17/2024 11:45 AM EDT Immunization/Injecti on Hematology/Oncology Treatment, [place] 200 [facility] [place] [phone] Nurse, Med 4 [address] [place] [address] 05/20/2024 2:15 PM EDT Office Visit Urology, [facility] [address] [place] [address] Isaías Novak MD [address] [place] [address] 07/01/2024 4:00 PM EDT Office Visit Family Practice [facility] [address] [place] [address] Dru Fritz MD [address] [place] [address] Pending Results Name Type Priority Associated Diagnoses Date /Time COMPREHENSIVE METABOLIC PANEL Lab Routine Prostate cancer metastatic to multiple sites (HCC) 01/17/2024 11:04 AM EDT PHOSPHORUS Lab Routine Prostate cancer metastatic to multiple sites (HCC) Dehydration Metastasis to bone (HCC) 01/17/2024 11:04 AM EDT Health Maintenance Due Date Last Done Comments DISCUSS TOBACCO CESSATION (REFER TO SMARTSET #3295) 1960 COVID-19 Vaccine (#1) 1965 Pneumococcal Vaccine: [...] 01/11/2024, 11/29, 11/29/2023, Additional history exists CKD PHOS USE SMARTSET 74563 01/10/202512/30, 11/29/2023, 10/10/2023, Additional history exists CKD HGB USE SMARTSET 49396 01/16/202501/16, 01/17/2024, 01/11/2024, Additional history exists GARDASIL-HPV IMMUNIZATION SERIES Aged Out No longer eligible based on patient's age to complete this topic Hepatitis B Aged Out No longer eligi ble based on patient's age to complete this topic MENINGOCOCCAL (MENACTRA/MENVEO) Aged Out No longer eligible based on patient's age to complete this topic documented as of this encounter Medical Devices Implanted Type Area Uke Operator Device Identifier Shelf Expiration Date Model / Serial / Lot Stent Trnscarotid Enroute 7x40 - [id number] Implanted:Qty: 1 on 01/25/2021 by Zeinab Robert MD at [facility] Left: [facility] [id number] 05/31/2023 SR-0740-C S / / [id number] documented as of this encounter Procedures Procedure Name Priority Date/Time Associated Diagnosis Comments DIFFERENTIAL, AUTOMATED Routine 01/17/2024 11:04 AM EDT Prostate cancer metastatic to multiple sites (HCC) CBC Routine 01/17/2024 11:04 AM EDT Prostate cancer metastatic to multiple sites (HCC) CBC Routine 01/17/2024 11:04 AM EDT Prostate cancer metastatic to multiple sites (HCC) DIFFERENTIAL, TECHNOLOGIST REVIEW Routine 01/17/2024 11:04 AM EDT Prostate cancer metastatic to multiple sites (HCC) documented in this encounter Results * (ABNORMAL) DIFFERENTIAL, TECHNOLOGIST REVIEW (01/17/2024 11:04 AM EDT) WBC 6.98 4.00 - 10.80 K/uL 01/17/2024 11:47 AM EDT [facility] 56-02 Neutrophils % 75.0 40.0 - 75.0 % 01/17/2024 11:47 AM EDT [facility] 56-02 Lymphocytes % 17.0(L) 18.0 - 42.0 % 01/17/2024 11:47 AM EDT [facility] 56-02 Monocytes % 6.0 1.0 - 11.0 % 01/17/2024 11:47 AM EDT [facility] 56-02 Eosinophils % 1.0 0.0 - 6.0 % 01/17/2024 11:47 AM EDT [facility] 56-02 Metamyelocytes % 1.0(H) <=0.0 % 01/17/20 11:47 AM EDT [facility] 56-02 Absolute Neutrophils 5.24 1.80 - 7.70 K/uL 01/17/2024 11:47 AM EDT [facility] 56-02 Absolute Lymphocytes 1.19 1.00 - 4.80 K/uL 01/17/2024 11:47 AM EDT [facility] 56-02 Absolute Monocytes 0.42 0.00 - 1.10 K/uL 01/17/2024 11:47 AM EDT [facility] 56-02 Absolute Eosinophils 0.07 0.00 - 0.70 K/uL 01/17/2024 11:47 AM EDT [facility] 56-02 Absolute Metamyelocytes 0.07(H) <=0.00 K/uL 01/17/2024 11:47 AM EDT [facility] 56-02 nRBCs 01/17/2024 11:47 AM EDT [facility] 56-02 Blood Venous blood specimen / Unknown Venipuncture / Unknown 01/17/2024 11:04 AM EDT 01/17/2024 11:04 AM EDT Elio Queen MD LAB BLOOD ORDERABLES [facility] [address] [place] [address] * DIFFERENTIAL, AUTOMATED (01/17/2024 11:04 AM EDT) Blood Venous blood specimen / Unknown Venipuncture / Unknown 01/17/2024 11:04 AM EDT 01/17/2024 11:04 AM EDT Elio Queen MD LAB BLOOD ORDERABLES [facility] [address] [place] [address] * (ABNORMAL) CBC (01/17/2024 11:04 AM EDT) WBC 6.98 4.00 - 10.80 K/uL 01/17/2024 11:47 AM EDT [address] RBC 2.62 4.50 - 5.25 M/uL 01/17/2024 11:47 AM EDT [address] HGB 7.7(L) 14.0 - 16.8 g/dL 01/17/2024 11:47 AM EDT [address] HCT 26.5(L) 40.0 - 48.4 % 01/17/2024 11:47 AM EDT [facility] 56 MCV 101.1 82.0 - 99.5 fL 01/17/2024 11:47 AM EDT [facility] 56 MCH 29.4 27.0 - 34.0 pg 01/17/2024 11:47 AM EDT [facility] 56 MCHC 29.1 32.0 - 36.0 g/dL 01/17/2024 11:47 AM EDT [facility] 56 RDW 18.7 11.5 - 15.5 % 01/17/2024 11:47 AM EDT [facility] 56 PLT 332 140 - 400 K/uL 01/17/2024 11:47 AM EDT [facility] 56 MPV 7.9 6.6 - 11.1 fL 01/17/2024 11:47 AM EDT [facility] 56 Blood Venous blood specimen / Unknown Venipuncture / Unknown 01/17/2024 11:04 AM EDT 01/17/2024 11:04 AM EDT Elio Queen MD LAB BLOOD ORDERABLES [facility] [place] [address] documented in this encounter Visit Diagnoses Diagnosis Prostate cancer metastatic to multiple sites (HCC) Malignant neoplasm of prostate Dehydration Metastasis to bone (HCC) Secondary malignant neoplasm of bone and bone marrow documented in this encounter Advance Directives Latest Code Status on File Code Status Date Activated Date Inactivated Comments Full Code 01/25/2021 10:53 AM 01/26/2021 1:19 PM This order reflects the patients wishes and were consensually agreed upon. Care Teams Office Rep Relationship Specialty Start Date End Date Dru Fritz MD [address] [facility] [place] [address] PCP - General Family Medicine 01/24/21 documented as of this encounter
--- OUTSIDE RECORDS SUMMARY | 2024-02-16 20:46 | External Medical Summary ---
Author Name Unknown Address Unknown Organization [facility] [address] [address] Laboratory Report Ordering Provider Test Date Status PATRICE QUINONES 01/17/2024 11:04:07 Final Observation Date Value Abnormality Reference (Units ) Status WBC, Total 01/17/2024 11:04:07 6.98 4.00-10.8 0 (K/uL) Final RBC 01/17/2024 11:04:07 2.62 4.50-5.25 (M/uL) Final Hemoglobin 01/17/2024 11:04:07 7.7 Below low normal 14 .0-16.8 (g/dL) Final HCT 01/17/2024 11:04:07 26.5 Below low normal 40. 0-48.4 (%) Final MCV 01/17/2024 11:04:07 101.1 82.0-99.5 (fL) Final MCH 01/17/2024 11:04:07 29.4 27.0-34.0 (pg) Final MCHC 01/17/2024 11:04:07 29.1 32.0-36.0 (g/dL) Final RDW 01/17/2024 11:04:07 18.7 11.5-15.5 (%) Final Platelets 01/17/2024 11:04:07 332 140-400 (K /uL) Final MPV 01/17/2024 11:04:07 7.9 6.6-11.1 ( fL) Final Performing Location [facility] [address] [address]
--- OUTSIDE RECORDS SUMMARY | 2024-02-16 20:46 | External Medical Summary | Summary of Care ---
Author Name Unknown Organization [facility] Address [address] [place] [address] Phone [phone] Care Team Providers Care Refrigerating Machine Operator Name Role Phone Dru Fritz MD Primary Care Provider [phone] [phone] Reason for Visit * Reason Comments Outpatient Testing Encounter Details Date Type Department Care Team (Late st Contact Info) Description 01/17/2024 10:40 AM EDT Laboratory Laboratory [facility] [place] [address] [place] [address] [place], [address] Scenery [address] [place] [address] Prostate cancer metastatic to multiple sites (HCC) Allergies Active Allergy Reactions Criticality Noted Date Comments Amoxicillin-Pot Clavulanate 05/17/20 22 Dizziness and confused documented as of this encounter (statuses as of 01/17/2024) Medications Medication Sig Dispensed Refills Start Date End Date Status InstrumentLife SYSTEM W/DEVICE KITIndications:DM type 2, goal A1c [...] of insulin ([facility]) TAKE ONE TABLET BY MOUTH DAILY IN [...] of insulin ([facility]ER[facility]) TAKE ONE TABLET BY MOUTH EVERY MORNING [...] Taxonomy Protocol. HTN, goal to be determined 10/24/2008 Overview: Modified per HTN protocol #16. [...] Contact Info) Description 01/17/2024 11:45 AM EDT Immunization/Injec tion Hematology/Oncology Treatment, [place] [address] [place] [address] Nurse, Med 4 [address] [place] [address] Arrived 05/20/2024 2:15 PM EDT Office Visit Urology, [facility] [address] [place] [address] Isaías Novak MD [address] [place] [address] [place] [address] 07/01/2024 4:00 PM EDT Office Visit Family Practice [facility] [address] [place] [place] [address] Dru Fritz MD [address] [place] [address] Pending Results Name Type Priority Associated Diagnoses Date /Time CBC WITH WBC DIFFERENTIAL Lab Routine Prostate cancer metastatic to multiple sites (HCC) 01/17/2024 11:04 AM EDT COMPREHENSIVE METABOLIC PANEL Lab Routine Prostate cancer metastatic to multiple sites (HCC) 01/17/2024 11:04 AM EDT CBC Lab Routine Prostate cancer metastatic to multiple sites (HCC) 01/17/2024 11:04 AM EDT DIFFERENTIAL, AUTOMATED Lab Routine Prostate cancer metastatic to multiple sites (HCC) 01/17/2024 11:04 AM EDT Health Maintenance Due Date Last Done Comments DISCUSS TOBACCO CESSATION (REFER TO SMARTSET #3293) 1960 COVID-19 Vaccine (#1) 1965 Pneumococcal Vaccine: [...] Additional history exists CKD HGB USE SMARTSET 20925 01/10/202501/10, 01/11/2024, 12/14/2023, Additional history exists CKD PHOS USE SMARTSET 73322 01/10/202512/30, 11/29/2023, 10/10/2023, Additional history exists GARDASIL-HPV IMMUNIZATION SERIES Aged Out No longer eligible based on patient's age to complete this topic Hepatitis B Aged Out No longer eligi ble based on patient's age to complete this topic MENINGOCOCCAL (MENACTRA/MENVEO) Aged Out No longer eligible based on patient's age to complete this topic documented as of this encounter Medical Devices Implanted Type Area Utility Assembler Device Identifier Shelf Expiration Date Model / Serial / Lot Stent Trnscarotid Enroute 7x40 - [id number] Implanted:Qty: 1 on 01/25/2021 by Zeinab Robert MD at [facility] Left: [facility] [id number] 05/31/2023 SR-0740-C S / / [id number] documented as of this encounter Visit Diagnoses Diagnosis Prostate cancer metastatic to multiple sites (HCC) Malignant neoplasm of prostate documented in this encounter Advance Directives Latest Code Status on File Code Status Date Activated Date Inactivated Comments Full Code 01/25/2021 10:53 AM 01/26/2021 1:19 PM This order reflects the patients wishes and were consensually agreed upon. Care Teams Refrigerating Machine Operator Relationship Specialty Start Date End Date Dru Fritz MD [address] [place] [address] PCP - General Family Medicine 01/24/21 documented as of this encounter
--- OUTSIDE RECORDS SUMMARY | 2024-02-16 20:46 | External Medical Summary | Summary of Care ---
Author Name Unknown Organization [facility] Address [address] [place] [address] Phone [phone] Care Team Providers Care Concreter Name Role Phone Dru Fritz MD Primary Care Provider [phone] [phone] Reason for Visit * Reason Comments Outpatient Testing Encounter Details Date Type Department Care Team (Late st Contact Info) Description 01/17/2024 10:40 AM EDT Laboratory Laboratory [facility] [address] [place] [address] [facility] Lab Scenery [address] [place] [address] Prostate cancer metastatic to multiple sites (HCC); Dehydration; Metastasis to bone (HCC) Allergies Active Allergy Reactions Criticality Noted Date Comments Amoxicillin-Pot Clavulanate 05/17/20 22 Dizziness and confused documented as of this encounter (statuses as of 01/17/2024) Medications Medication Sig Dispensed Refills Start Date End Date Status qualifyor SYSTEM W/DEVICE KITIndications:DM type 2, goal A1c [...] AM EDT Office Visit Hematology/Oncology [place] [address] [place] [address] Pastora [facility]ilar [facility] [address] [facility] [place] [address] 04/17/2024 10:40 AM EDT Laboratory Laboratory [place] [place] [address] [place] [phone] Saritha Lab [facility] [address] [facility] [place] [address] 04/17/2024 11:45 AM EDT Immunization/Injecti on Hematology/Oncology Treatment, [place] 200 [facility] [place] [phone] Nurse, Med 4 [address] [place] [address] 05/20/2024 2:15 PM EDT Office Visit Urology, [facility] [address] [place] [address] Isaías Novak MD [address] [place] [address] [place] [address] 07/01/2024 4:00 PM EDT Office Visit Family Practice [facility] [address] [place] [address] Dru Fritz MD [address] [place] [address] Pending Results Name Type Priority Associated Diagnoses Date /Time COMPREHENSIVE METABOLIC PANEL Lab Routine Prostate cancer metastatic to multiple sites (HCC) 01/17/2024 11:04 AM EDT PHOSPHORUS Lab Routine Prostate cancer metastatic to multiple sites (HCC) Dehydration Metastasis to bone (HCC) 01/17/2024 11:04 AM EDT Health Maintenance Due Date Last Done Comments DISCUSS TOBACCO CESSATION (REFER TO SMARTSET #3299) 1960 COVID-19 Vaccine (#1) 1964 Pneumococcal Vaccine: [...] Additional history exists CKD PHOS USE SMARTSET 58454 01/10/202512/30, 11/29/2023, 10/10/2023, Additional history exists CKD HGB USE SMARTSET 69137 01/16/202501/16, 01/17/2024, 01/11/2024, Additional history exists GARDASIL-HPV IMMUNIZATION SERIES Aged Out No longer eligible based on patient's age to complete this topic Hepatitis B Aged Out No longer eligi ble based on patient's age to complete this topic MENINGOCOCCAL (MENACTRA/MENVEO) Aged Out No longer eligible based on patient's age to complete this topic documented as of this encounter Medical Devices Implanted Type Area Ordnance Keeper Device Identifier Shelf Expiration Date Model / Serial / Lot Stent Trnscarotid Enroute 7x40 - [id number] Implanted:Qty: 1 on 01/25/2021 by Zeinab Robert MD at [facility] Left: [facility] [id number] 05/31/2023 SR-0740-C S / / [id number] documented as of this encounter Procedures Procedure [...] - 10.80 K/uL 01/17/2024 11:47 AM EDT [facility] Neutrophils % 75.0 40.0 - 75.0 % 01/17/2024 11:47 AM EDT [facility] Lymphocytes % 17.0(L) 18.0 - 42.0 % 01/17/2024 11:47 AM EDT [facility] Monocytes % 6.0 1.0 - 11.0 % 01/17/2024 11:47 AM EDT [facility] Eosinophils % 1.0 0.0 - 6.0 % 01/17/2024 11:47 AM EDT [facility] Metamyelocytes % 1.0(H) <=0.0 % 01/17/20 11:47 AM EDT [facility] Absolute Neutrophils 5.24 1.80 - 7.70 K/uL 01/17/2024 11:47 AM EDT [facility] Absolute Lymphocytes 1.19 1.00 - 4.80 K/uL 01/17/2024 11:47 AM EDT [facility] Absolute Monocytes 0.42 0.00 - 1.10 K/uL 01/17/2024 11:47 AM EDT [facility] Absolute Eosinophils 0.07 0.00 - 0.70 K/uL 01/17/2024 11:47 AM EDT [facility] Absolute Metamyelocytes 0.07(H) <=0.00 K/uL 01/17/2024 11:47 AM EDT [facility] nRBCs 01/17/2024 11:47 AM EDT [facility] Blood Venous blood specimen / Unknown Venipuncture / Unknown 01/17/2024 11:04 AM EDT 01/17/2024 11:04 AM EDT Elio Queen MD LAB BLOOD ORDERABLES [facility] [address] [place] [address] * DIFFERENTIAL, AUTOMATED (01/17/2024 11:04 AM EDT) Blood Venous blood specimen / Unknown Venipuncture / Unknown 01/17/2024 11:04 AM EDT 01/17/2024 11:04 AM EDT Elio Queen MD LAB BLOOD ORDERABLES [facility] [address] [place] [address] * (ABNORMAL) CBC (01/17/2024 11:04 AM EDT) WBC 6.98 4.00 - 10.80 K/uL 01/17/2024 11:47 AM EDT [address] RBC 2.62 4.50 - 5.25 M/uL 01/17/2024 11:47 AM EDT [address] HGB 7.7(L) 14.0 - 16.8 g/dL 01/17/2024 11:47 AM EDT [address] HCT 26.5(L) 40.0 - 48.4 % 01/17/2024 11:47 AM EDT [facility] MCV 101.1 82.0 - 99.5 fL 01/17/2024 11:47 AM EDT [facility] MCH 29.4 27.0 - 34.0 pg 01/17/2024 11:47 AM EDT [facility] MCHC 29.1 32.0 - 36.0 g/dL 01/17/2024 11:47 AM EDT [facility] RDW 18.7 11.5 - 15.5 % 01/17/2024 11:47 AM EDT [facility] PLT 332 140 - 400 K/uL 01/17/2024 11:47 AM EDT [facility] MPV 7.9 6.6 - 11.1 fL 01/17/2024 11:47 AM EDT [facility] Blood Venous blood specimen / Unknown Venipuncture / Unknown 01/17/2024 11:04 AM EDT 01/17/2024 11:04 AM EDT Elio Queen MD LAB BLOOD ORDERABLES [facility] [place] [facility] [place] [address] documented in this encounter Visit Diagnoses Diagnosis [...] and were consensually agreed upon. Care Teams Concreter Relationship Specialty Start Date End Date Dru Fritz MD 132 [facility] [place] [address] PCP - General Family Medicine 01/24/21 documented as of this encounter
--- OUTSIDE RECORDS SUMMARY | 2024-02-16 20:46 | External Medical Summary | Summary of Care ---
Author Name Unknown Organization [facility] Address [address] [place] [facility] [place] [address] Phone [phone] Care Team Providers Care Virtual Office Assistant Name Role Phone Dru Fritz MD Primary Care Provider [phone] [phone] Reason for Visit * Reason Comments Nurse Documentation Hold Xgeva Encounter Details Date Type Department Care Team (Late st Contact Info) Description 01/24/2024 2:00 PM EDT Immunization/Inj ection Hematology/Oncology Treatment, [place] [address] [place] [address] Nurse, Med [address] [place] [address] Allergies Active Allergy Reactions Criticality Noted Date Comments Amoxicillin-Pot Clavulanate 05/17/20 22 Dizziness and confused documented as of this encounter (statuses as of 01/24/2024) Medications Medication Sig Dispensed Refills Start Date End Date Status Wanova SYSTEM W/DEVICE KITIndications:DM type 2, goal A1c [...] Nursing Notes * Tash Mcintyre LPN - 01/24/2024 2:33 PM EDT Pt arrived for labs and Xgeva injection. Arie 6.8. Spoke to WEIGHT YARDAGE CHECKER - hold per parameters and have patient return in 3 weeks when due to for next injection and labs. Pt was discharged in stable conditionwith at side. documented in this encounter Plan of Treatment Upcoming Encounters Date Type Department Care Team (Late st Contact Info) Description 02/14/2024 1:10 PM EDT Laboratory Laboratory [facility] Saritha [place] [address] [place] [address] Isis Melara [facility] [address] [place] [address] [address] 02/14/2024 2:00 PM EDT Immunization/Injectio n Hematology/Oncology Treatment, [place] [address] [place] [address] Nurse, Med 4 [address] [place] [address] 02/15/2024 1:00 PM EDT Appointment Radiology, [place] [address] [place] [address] 03/06/2024 11:30 AM EDT Office Visit Hematology/Oncology [facility] [place] [address] [facility] [phone] Pastora Aguilar CRNP [address] [facility] [place] [address] 04/17/2024 10:40 AM EDT Laboratory Laboratory [facility] [place] 200 [facility] [place] [phone] [place], Lab [facility] 200 [facility] [place] [address] 04/17/2024 11:45 AM EDT Immunization/Injectio n Hematology/Oncology Treatment, [place] [address] [place] [phone] Nurse, Med 4 200 [facility] [place] [address] 05/20/2024 2:15 PM EDT Office Visit Urology, [facility] 132 [facility] [place] [address] Isaías Novak MD [address] [address] [place] [address] 07/01/2024 4:00 PM EDT Office Visit Family Practice [facility] 132 [facility] [place] [address] Dru Fritz MD 132 [facility] [place] [address] Health Maintenance Due Date Last Done Comments [...] Additional history exists CKD HGB USE SMARTSET 88851 01/23/202501/23, 01/24/2024, 01/17/2024, Additional history exists CKD PHOS USE SMARTSET 47495 01/23/202512/31, 01/17/2024, 01/11/2024, Additional history exists GARDASIL-HPV IMMUNIZATION SERIES Aged Out No longer eligible based on patient's age to complete this topic Hepatitis B Aged Out No longer eligi ble based on patient's age to complete this topic MENINGOCOCCAL (MENACTRA/MENVEO) Aged Out No longer eligible based on patient's age to complete this topic documented as of this encounter Medical Devices Implanted Type Area Wool Hat Sanding Machine Operator Device Identifier Shelf Expiration Date Model / Serial / Lot Stent Trnscarotid Enroute 7x40 - [id number] Implanted:Qty: 1 on 01/25/2021 by Zeinab Robert MD at [facility] Left: [facility] [id number] 05/31/2023 SR-0740-C S / / [id number] documented as of this encounter Advance Directives Latest Code Status on File Code Status Date Activated Date Inactivated Comments Full Code 01/25/2021 10:53 AM 01/26/2021 1:19 PM This order reflects the patients wishes and were consensually agreed upon. Care Teams Virtual Office Assistant Relationship Specialty Start Date End Date Dru Fritz MD [address] [place] [address] PCP - General Family Medicine 01/24/21 documented as of this encounter
--- OUTSIDE RECORDS SUMMARY | 2024-02-16 20:46 | External Medical Summary ---
Author Name Unknown Address Unknown Organization K[facility] - [address] [place] [address] Laboratory Report Ordering Provider Test Date Status PATRICE QUINONES 01/24/2024 13:14:19 Final Observation Date Value Abnormality Reference (Units ) Status BUN 01/24/2024 13:14:19 11 6-20 (mg/dL) Final Creatinine 01/24/2024 13:14:19 1.3 Above high normal 0.6-1.2 (mg/dL) Final Glomerular filtration rate/1.73 sq M.predicted [Volume Rate/Area] in Serum, Plasma or Blood by Creatinine-based formula (CKD-EPI) 01/24/2024 13:14:19 62 >=60 (mL/min) Final eGFR is calculated based on the CKD-EPI 2020 equation Sodium 01/24/2024 13:14:19 144 135-146 (m mol/L) Final Potassium 01/24/2024 13:14:19 4.0 3.5-5.1 (m mol/L) Final Cl 01/24/2024 13:14:19 108 Above high normal 98 -107 (mmol/L) Final CO2 01/24/2024 13:14:19 22 22-32 (mmo l/L) Final Anion gap 01/24/2024 13:14:19 14 7-15 (mmol /L) Final Glucose 01/24/2024 13:14:19 137 Above high normal 70 -120 (mg/dL) Final Albumin 01/24/2024 13:14:19 3.5 Below low normal 3.8 -5.0 (g/dL) Final AST (Aspartate aminotransferase) 01/24/2024 13:14:19 24 10-50 (U/L) Fin al Alk Phos 01/24/2024 13:14:19 266 Above high normal 35 -130 (U/L) Final Bilirubin, Total 01/24/2024 13:14:19 0.2 <=1 .2 (mg/dL) Final Calcium 01/24/2024 13:14:19 6.8 Below low normal 8.4 -10.2 (mg/dL) Final Protein 01/24/2024 13:14:19 6.6 6.0-8.3 (g /dL) Final ALT (Alanine aminotransferase) 01/24/2024 13:14:19 12 10-50 (U/L) Hilton harrell Performing Location [facility] [address] [place] [address]
--- OUTSIDE RECORDS SUMMARY | 2024-02-16 20:46 | External Medical Summary | Summary of Care ---
Author Name Unknown Organization [facility] Address [address] [place] [address] Phone [phone] Care Team Providers Care Carding Machine Operator Name Role Phone Dru Fritz MD Primary Care Provider [phone] [phone] Reason for Visit * Reason Onset Date Comments Advice 01/15/2024 labs Encounter Details Date Type Department Care Team (Late st Contact Info) Description 01/15/2024 Telephone Hematology/Oncology [facility] Saritha [place] [address] [place] [phone] Elio Queen MD [address] [place] [address] Advice (labs) Allergies Active Allergy Reactions Criticality Noted Date Comments Amoxicillin-Pot Clavulanate 05/17/20 22 Dizziness and confused documented as of this encounter (statuses as of 01/15/2024) Medications Medication Sig Dispensed Refills Start Date End Date Status 4moms SYSTEM W/DEVICE KITIndications:DM type 2, goal A1c [...] long-term current use of insulin ([facility]) TAKE ONE TABLET BY MOUTH DAILY IN [...] as of this encounter (statuses as of 01/15/2024) Active Problems Problem Noted Date Diagnosed Date [...] as of this encounter (statuses as of 01/15/2024) Resolved Problems Problem Noted Date Diagnosed Date [...] as of this encounter (statuses as of 01/15/2024) Immunizations No known immunizationsdocumented as of this [...] Telephone Encounter - Ángel Thompson RN - 01/15/2024 11:17 AM EDT Pt asking if patient can have labs completed when he comes for his office visit with our provider. Pt hgb on recent admission to [facility] was 7.5. Placed orders for CBCD, CMP documented in this encounter Plan of Treatment Upcoming Encounters Date Type Department Care Team (Late st Contact Info) Description 01/17/2024 10:40 AM EDT Laboratory [place] [address] [address] [phone] [place] [address] 01/17/2024 11:15 AM EDT Office Visit Hematology/[place] [phone] Elio Queen MD [address] [place] [address] 01/17/2024 11:45 AM EDT Immunization/Injectio n Hematology/Oncology Treatment, [place] [address] [place] [phone] Nurse, Med [address] [place] [address] 05/20/2024 2:15 PM EDT Office Visit Urology, [facility] 132 [place] [address] Isaías Novak MD [address] [place] [address] [place] [address] 07/01/2024 4:00 PM EDT Office Visit Family Practice [facility] [address] [place] [address] Dru Fritz MD [address] [facility] [place] [address] Scheduled Orders Name Type Priority Associated Diagnoses Orde r Schedule CBC WITH WBC DIFFERENTIAL Lab Routine Prostate cancer metastatic to multiple sites (HCC) Expected: 01/17/2024, Expires: 01/14/2025 COMPREHENSIVE METABOLIC PANEL Lab Routine Prostate cancer metastatic to multiple sites (HCC) Expected: 01/17/2024, Expires: 01/14/2025 Health Maintenance Due Date Last Done Comments DISCUSS TOBACCO CESSATION (REFER TO SMARTSET #9160) 1960 COVID-19 Vaccine (#1) 1965 Pneumococcal Vaccine: [...] Additional history exists CKD HGB USE SMARTSET 43894 01/10/202501/10, 01/11/2024, 12/14/2023, Additional history exists CKD PHOS USE SMARTSET 09986 01/10/202512/30, 11/29/2023, 10/10/2023, Additional history exists GARDASIL-HPV IMMUNIZATION SERIES Aged Out No longer eligible based on patient's age to complete this topic Hepatitis B Aged Out No longer eligi ble based on patient's age to complete this topic MENINGOCOCCAL (MENACTRA/MENVEO) Aged Out No longer eligible based on patient's age to complete this topic documented as of this encounter Medical Devices Implanted Type Area Weapons Officer [employer] Device Identifier Shelf Expiration Date Model / Serial / Lot Stent Trnscarotid Enroute 7x40 - [id number] Implanted:Qty: 1 on 01/25/2021 by Zeinab Robert MD at [facility] Left: [facility] [id number] 05/31/2023 SR-0740-C S / / [id number] documented as of this encounter Visit Diagnoses Diagnosis Prostate cancer metastatic to multiple sites (HCC)- Primary Malignant neoplasm of prostate documented in this encounter Advance Directives Latest Code Status on File Code Status Date Activated Date Inactivated Comments Full Code 01/25/2021 10:53 AM 01/26/2021 1:19 PM This order reflects the patients wishes and were consensually agreed upon. Care Teams Carding Machine Operator Relationship Specialty Start Date End Date Dru Fritz MD [address] [place] [address] PCP - General Family Medicine 01/24/21 documented as of this encounter
--- OUTSIDE RECORDS SUMMARY | 2024-02-16 20:46 | External Medical Summary ---
Author Name Unknown Address Unknown Organization [facility] [address] [place] [address] Laboratory Report Ordering Provider Test Date Status PATRICE QUINONES 01/24/2024 13:14:19 Final Observation Date Value Abnormality Reference (Units ) Status Phosphate 01/24/2024 13:14:19 3.5 2.5-4.8 (m g/dL) Final Performing Location [facility] [address] [address]
--- OUTSIDE RECORDS SUMMARY | 2024-02-16 20:46 | External Medical Summary | Summary of Care ---
Author Name Unknown Organization [facility] Address [address] [place] [facility] [place] [address] Phone [phone] Care Team Providers Care Wheel Inspector Name Role Phone Dru Fritz MD Primary Care Provider [phone] [phone] Encounter Details Date Type Department Care Team (Late st Contact Info) Description 01/24/2024 External Data Patient Risk Medial Allergies Active Allergy Reactions Criticality Noted Date Comments Amoxicillin-Pot Clavulanate 05/17/20 22 Dizziness and confused documented as of this encounter (statuses as of 01/24/2024) Medications Medication Sig Dispensed Refills Start Date End Date Status 5 O'Clock Records SYSTEM W/DEVICE KITIndications:DM type 2, goal A1c [...] 12:50 PM EDT Laboratory Laboratory [facility] [place] [address] [phone] [place] [address] 01/24/2024 2:00 PM EDT Immunization/Injectio n Hematology/Oncology Treatment, [place] [address] [facility] [address] [address] [place] [phone] Nurse, Med [address] [place] [address] 02/15/2024 1:00 PM EDT Appointment Radiology, [address] [id number] 03/06/2024 11:30 AM EDT Office Visit [facility] [place] [address] [phone] Pastora Aguilar CRNP [address] [place] [address] [place] [address] 04/17/2024 10:40 AM EDT Laboratory Laboratory [place] [place] [address] [place] [phone] [place] [address] 04/17/2024 11:45 AM EDT Immunization/Injectio n Hematology/Oncology Treatment, [place] [address] [place] [address] Nurse, Med [address] [place] [address] 05/20/2024 2:15 PM EDT Office Visit Urology, [facility] [address] [facility] [place] [address] Isaías Novak MD [address] [place] [address] [place] [address] 07/01/2024 4:00 PM EDT Office Visit Family Practice [facility] [address] [facility] [place] [address] Dru Fritz MD [address] [facility] [address] Health Maintenance Due Date Last Done Comments DISCUSS TOBACCO CESSATION (REFER TO SMARTSET #5825) 1960 COVID-19 Vaccine (#1) 1964 Pneumococcal Vaccine: [...] Additional history exists CKD HGB USE SMARTSET 26055 01/16/202501/16, 01/17/2024, 01/11/2024, Additional history exists CKD PHOS USE SMARTSET 69676 01/16/202512/30, 01/11/2024, 11/29/2023, Additional history exists GARDASIL-HPV IMMUNIZATION SERIES Aged Out No longer eligible based on patient's age to complete this topic Hepatitis B Aged Out No longer eligi ble based on patient's age to complete this topic MENINGOCOCCAL (MENACTRA/MENVEO) Aged Out No longer eligible based on patient's age to complete this topic documented as of this encounter Medical Devices Implanted Type Area Bottle Blower Device Identifier Shelf Expiration Date Model / Serial / Lot Stent Trnscarotid Enroute 7x40 - [id number] Implanted:Qty: 1 on 01/25/2021 by Zeinab Robert MD at [facility] Left: [facility] [id number] 05/31/2023 SR-0740-C S / / [id number] documented as of this encounter Advance Directives Latest Code Status on File Code Status Date Activated Date Inactivated Comments Full Code 01/25/2021 10:53 AM 01/26/2021 1:19 PM This order reflects the patients wishes and were consensually agreed upon. Care Teams Wheel Inspector Relationship Specialty Start Date End Date Dru Fritz MD [address] [address] PCP - General Family Medicine 01/24/21 documented as of this encounter
--- OUTSIDE RECORDS SUMMARY | 2024-02-16 20:47 | External Medical Summary | Summary of Care ---
Author Name Unknown Organization [facility] Address [address] [place] [address] Phone [phone] Care Team Providers Care Corn Husk Baler Name Role Phone Dru Fritz MD Primary Care Provider [phone] [phone] Encounter Details Date Type Department Care Team (Late st Contact Info) Description 12/03/2023 Orders Only Hematology/Oncology [facility] 200 [facility] [place] [address] Elio Queen MD [address] [facility] [address] Allergies Active Allergy Reactions Criticality Noted Date Comments Amoxicillin-Pot Clavulanate 05/17/20 22 Dizziness and confused documented as of this encounter (statuses as of 01/14/2024) Medications Medication Sig Dispensed Refills Start Date End Date Status [employer] SYSTEM W/DEVICE KITIndications:D M type 2, goal [...] as of this encounter (statuses as of 01/14/2024) Active Problems Problem Noted Date Diagnosed Date [...] as of this encounter (statuses as of 01/14/2024) Resolved Problems Problem Noted Date Diagnosed Date [...] as of this encounter (statuses as of 01/14/2024) Immunizations No known immunizationsdocumented as of this [...] Description 01/17/2024 10:40 AM EDT Laboratory [facility] [place] [address] [place] [phone] [address] [facility] [place] [address] 01/17/2024 11:15 AM EDT Office Visit Hematology/Oncology [facility] [place] [address] [place] [phone] Elio Queen MD [address] [place] [address] 01/17/2024 11:45 AM EDT Immunization/Injectio n Hematology/Oncology Treatment, [place] 200 [facility] [place] [phone] Nurse, Med [address] [facility] [place] [address] 05/20/2024 2:15 PM EDT Office Visit Urology, [facility] 132 [place] [address] Isaías Novak MD [address] [place] [address] [place] [address] 07/01/2024 4:00 PM EDT Office Visit Family Practice [facility] [address] [facility] [address] Dru Fritz MD 132 [place] [address] Health Maintenance Due Date Last Done Comments DISCUSS TOBACCO CESSATION (REFER TO SMARTSET #9562) 1960 COVID-19 Vaccine (#1) 1964 Pneumococcal Vaccine: [...] Additional history exists CKD HGB USE SMARTSET 46527 01/10/202501/10, 01/11/2024, 12/14/2023, Additional history exists CKD PHOS USE SMARTSET 67008 01/10/202512/30, 11/29/2023, 10/10/2023, Additional history exists GARDASIL-HPV IMMUNIZATION SERIES Aged Out No longer eligible based on patient's age to complete this topic Hepatitis B Aged Out No longer eligi ble based on patient's age to complete this topic MENINGOCOCCAL (MENACTRA/MENVEO) Aged Out No longer eligible based on patient's age to complete this topic documented as of this encounter Medical Devices Implanted Type Area System Support Technician Device Identifier Shelf Expiration Date Model / Serial / Lot Stent Trnscarotid Enroute 7x40 - [id number] Implanted:Qty: 1 on 01/25/2021 by Zeinab Robert MD at [facility] Left: [facility] [id number] 05/31/2023 SR-0740-C S / / [id number] documented as of this encounter Advance Directives Latest Code Status on File Code Status Date Activated Date Inactivated Comments Full Code 01/25/2021 10:53 AM 01/26/2021 1:19 PM This order reflects the patients wishes and were consensually agreed upon. Care Teams Corn Husk Baler Relationship Specialty Start Date End Date Dru Fritz MD [address] [place] [address] PCP - General Family Medicine 01/24/21 documented as of this encounter
--- OUTSIDE RECORDS SUMMARY | 2024-02-16 20:47 | External Medical Summary | Summary of Care ---
Author Name Unknown Organization [facility] Address [address] [place] [facility] [place] [address] Phone [phone] Care Team Providers Care Wheel Tuner Name Role Phone Dru Fritz MD Primary Care Provider [phone] Reason for Visit * Reason Onset Date Comments Advice 01/11/2024 Encounter Details Date Type Department Care Team (Late st Contact Info) Description 01/11/2024 Telephone Hematology/Oncology [facility] [place] 200 [place] [address] Elio Queen MD [address] [facility] [address] Advice Allergies Active Allergy Reactions Criticality Noted Date Comments Amoxicillin-Pot Clavulanate 05/17/20 22 Dizziness and confused documented as of this encounter (statuses as of 01/14/2024) Medications Medication Sig Dispensed Refills Start Date End Date Status PsyQic SYSTEM W/DEVICE KITIndications:DM type 2, goal A1c [...] neuropathy, without long-term current use of insulin ([facility]) TAKE ONE TABLET BY MOUTH [...] neuropathy, without long-term current use of insulin ([facility]) TAKE ONE TABLET BY MOUTH EVERY MORNING [...] Telephone Encounter - Ángel Thompson RN - 01/14/2024 2:28 PM EDT Pt discharged from [facility], has follow up schedule with Dr. Queen 01/16. * Telephone Encounter - Ángel Thompson RN - 01/11/2024 11:[address] Matt lee, patient underwent first Pluvicto treatment on 01/03, stated he wasn't feeling great when he went but still decided to undergo treatment. Brittaney messaged the office, he was seen by me for nurse visit and I sent him to the ER. Please see nurse visit note and labs completed. Stephanyyou. documented in this encounter Plan of Treatment Upcoming Encounters Date Type Department Care Team (Late st Contact Info) Description 01/17/2024 10:40 AM EDT Laboratory Laboratory Valentín Melara [place] [address] [place] [address] [facility] [address] [facility] [place] [address] 01/17/2024 11:15 AM EDT Office Visit Hematology/Oncology [facility] [address] [place] [phone] Elio Queen MD 200 [facility] [place] [address] 01/17/2024 11:45 AM EDT Immunization/Injectio n Hematology/Oncology Treatment, [place] [address] [place] [phone] Nurse, Med [address] [facility] [place] [address] 05/20/2024 2:15 PM EDT Office Visit Urology, [facility] 132 [facility] [place] [address] Isaías Novak MD 27 [facility] [address] [place] [place] [address] 07/01/2024 4:00 PM EDT Office Visit Family Practice [facility] 132 [facility] [place] [address] Dru Fritz MD 132 [facility] [place] [address] Health Maintenance Due Date Last Done Comments DISCUSS TOBACCO CESSATION (REFER TO SMARTSET #8787) 1960 COVID-19 Vaccine (#1) 1964 Pneumococcal Vaccine: [...] Additional history exists CKD HGB USE SMARTSET 12136 01/10/202501/10, 01/11/2024, 12/14/2023, Additional history exists CKD PHOS USE SMARTSET 93215 01/10/202512/30, 11/29/2023, 10/10/2023, Additional history exists GARDASIL-HPV IMMUNIZATION SERIES Aged Out No longer eligible based on patient's age to complete this topic Hepatitis B Aged Out No longer eligi ble based on patient's age to complete this topic MENINGOCOCCAL (MENACTRA/MENVEO) Aged Out No longer eligible based on patient's age to complete this topic documented as of this encounter Medical Devices Implanted Type Area Center Aisle Cashier Device Identifier Shelf Expiration Date Model / Serial / Lot Stent Trnscarotid Enroute 7x40 - [id number] Implanted:Qty: 1 on 01/25/2021 by Zeinab Robert MD at [facility] Left: [facility] [id number] 05/31/2023 SR-0740-C S / / [id number] documented as of this encounter Advance Directives Latest Code Status on File Code Status Date Activated Date Inactivated Comments Full Code 01/25/2021 10:53 AM 01/26/2021 1:19 PM This order reflects the patients wishes and were consensually agreed upon. Care Teams Wheel Tuner Relationship Specialty Start Date End Date Dru Fritz MD [address] [place] [address] PCP - General Family Medicine 01/24/21 documented as of this encounter
--- OUTSIDE RECORDS SUMMARY | 2024-02-17 00:43 | External Medical Summary | Summary of Care ---
Author Name Unknown Organization [facility] Address [address] [facility] [place] [place] [address] Phone [phone] Care Team Providers Care Generation Manager Name Role Phone Dru Fritz MD Primary Care Provider [phone] [phone] Encounter Details Date Type Department Care Team (Late st Contact Info) Description 02/15/2024 12:15 PM EDT Nurse Only Hematology/Oncology [facility] [place] [address] [place] [address] Saritha, Nurse Hem Onc Scen[address] [place] [address] Arrived Allergies Active Allergy Reactions Criticality Noted Date Comments Amoxicillin-Pot Clavulanate 05/17/20 22 Dizziness and confused documented as of this encounter (statuses as of 02/15/2024) Medications Medication Sig Dispensed Refills Start Date End Date Status [employer] SYSTEM W/DEVICE KITIndications:DM type 2, goal A1c [...] as of this encounter (statuses as of 02/15/2024) Active Problems Problem Noted Date Diagnosed Date [...] as of this encounter (statuses as of 02/15/2024) Resolved Problems Problem Noted Date Diagnosed Date [...] as of this encounter (statuses as of 02/15/2024) Immunizations No known immunizationsdocumented as of this [...] as of this encounter Nursing Notes * Rocio Badillo RN - 02/15/2024 4:16 PM EDT Creatinine 1.9, hgb 7.3. Patient not feeling well, very fatigued, no change since yesterday. Reviewed with Dr Queen, advised patient to go to ER. Patient agreeable. documented in this encounter Plan of Treatment Upcoming Encounters Date Type Department Care Team (Late st Contact Info) Description 02/29/2024 1:00 PM EDT Hospital Encounter Radiology, [address] [address] 03/06/2024 11:30 AM EDT Office Visit Hematology/Oncology [facility] [place] [address] [place] [address] Pastora Aguilar CRNP 400 [facility] [place] [address] 05/08/2024 11:00 AM EDT Laboratory Laboratory [facility] [place] [address] [place] [phone] Isis Mel[place] [address] [place] [address] 05/08/2024 11:45 AM EDT Immunization/Injecti on Hematology/Oncology Treatment, [place] [address] [place] [phone] Nurse, Med 4 [address] [place] [address] 05/20/2024 2:15 PM EDT Office Visit Urology, [facility] [place] [address] Isaías Novak MD [address] [facility] 270 [facility] [place] [place] [phone] 07/01/2024 4:00 PM EDT Office Visit Family [facility] [place] [address] Dru Fritz MD 132 [place] [address] Health Maintenance Due Date Last Done Comments DISCUSS TOBACCO CESSATION (REFER TO SMARTSET #5280) 1960 COVID-19 Vaccine (#1) 1964 Pneumococcal Vaccine: [...] 12/14/2023, 12/30, 05/15/2022, Additional history exists GFR 08/17/2024 02/15/2024, 01/29, 01/24/2024, Additional history exists CKD PHOS USE SMARTSET 65494 02/13/202501/29, 01/24/2024, 01/17/2024, Additional history exists CKD HGB USE SMARTSET 47272 02/14/202502/14, 02/15/2024, 02/14/2024, Additional history exists GARDASIL-HPV IMMUNIZATION SERIES Aged Out No longer eligible based on patient's age to complete this topic Hepatitis B Aged Out No longer eligi ble based on patient's age to complete this topic MENINGOCOCCAL (MENACTRA/MENVEO) Aged Out No longer eligible based on patient's age to complete this topic documented as of this encounter Medical Devices Implanted Type Area Solderer Electronic Device Identifier Shelf Expiration Date Model / Serial / Lot Stent Trnscarotid Enroute 7x40 - [id number] Implanted:Qty: 1 on 01/25/2021 by Zeinab Robert MD at [facility] Left: [facility] [id number] 05/31/2023 SR-0740-C S / / [id number] documented as of this encounter Advance Directives Latest Code Status on File Code Status Date Activated Date Inactivated Comments Full Code 01/25/2021 10:53 AM 01/26/2021 1:19 PM This order reflects the patients wishes and were consensually agreed upon. Care Teams Generation Manager Relationship Specialty Start Date End Date Dru Fritz MD [address] [place] [address] PCP - General Family Medicine 01/24/21 documented as of this encounter
--- OUTSIDE RECORDS SUMMARY | 2024-02-17 00:43 | External Medical Summary | Summary of Care ---
Author Name Unknown Organization [facility] Address [address] [place] [address] Phone [phone] Care Team Providers Care Legal Practice Manager Name Role Phone Dru Fritz MD Primary Care Provider [phone] [phone] Reason for Visit * Reason Comments Outpatient Testing Encounter Details Date Type Department Care Team (Late st Contact Info) Description 02/15/2024 12:00 PM EDT Laboratory Laboratory [facility] [address] [place] [address] [facility] [address]en[address] [place] [address] Malignant neoplasm metastatic to bone (HCC); Hypocalcemia Allergies Active Allergy Reactions Criticality Noted Date Comments Amoxicillin-Pot Clavulanate 05/17/20 22 Dizziness and confused documented as of this encounter (statuses as of 02/15/2024) Medications Medication Sig Dispensed Refills Start Date End Date Status [employer] SYSTEM W/DEVICE KITIndications:DM type 2, goal A1c [...] long-term current use of insulin ([facility]) TAKE ONE TABLET BY MOUTH DAILY IN [...] 02/29/2024 1:00 PM EDT Hospital Encounter Radiology, [address] [phone] 03/06/2024 11:30 AM EDT Office Visit Hematology/Oncology [facility] [address] [place] [phone] Pastora Aguilar CRNP [address] [place] [address] [place] [address] 05/08/2024 11:00 AM EDT Laboratory Laboratory [place] [place] [address] [place] [address] [address] [place] [address] 05/08/2024 11:45 AM EDT Immunization/Injecti on Hematology/Oncology Treatment, [place] 200 [facility] [place] [phone] Nurse, Med [address] [place] [place] [address] 05/20/2024 2:15 PM EDT Office Visit Urology, [facility] 132 [facility] [place] [address] Isaías Novak MD [address] [place] [address] [place] [address] 07/01/2024 4:00 PM EDT Office Visit Family Practice [facility] [place] [address] Dru Fritz MD 132 [facility] [place] [address] Pending Results Name Type Priority Associated Diagnoses Date /Time CBC WITH WBC DIFFERENTIAL Lab STAT Malignant neoplasm metastatic to bone (HCC) Hypocalcemia 02/15/2024 12:27 PM EDT COMPREHENSIVE METABOLIC PANEL Lab STAT Malignant neoplasm metastatic to bone (HCC) Hypocalcemia 02/15/2024 12:27 PM EDT CBC Lab STAT Malignant neoplasm metastatic to bone (HCC) Hypocalcemia 02/15/2024 12:27 PM EDT DIFFERENTIAL, AUTOMATED Lab STAT Malignant neoplasm metastatic to bone (HCC) Hypocalcemia 02/15/2024 12:27 PM EDT Health Maintenance Due Date Last Done Comments DISCUSS TOBACCO CESSATION (REFER TO SMARTSET #5838) 1960 COVID-19 Vaccine (#1) 1965 Pneumococcal Vaccine: [...] Additional history exists CKD HGB USE SMARTSET 02581 02/13/202502/13, 02/14/2024, 01/24/2024, Additional history exists CKD PHOS USE SMARTSET 72862 02/13/202501/29, 01/24/2024, 01/17/2024, Additional history exists GARDASIL-HPV IMMUNIZATION SERIES Aged Out No longer eligible based on patient's age to complete this topic Hepatitis B Aged Out No longer eligi ble based on patient's age to complete this topic MENINGOCOCCAL (MENACTRA/MENVEO) Aged Out No longer eligible based on patient's age to complete this topic documented as of this encounter Medical Devices Implanted Type Area Casting Finisher Device Identifier Shelf Expiration Date Model / Serial / Lot Stent Trnscarotid Enroute 7x40 - [id number] Implanted:Qty: 1 on 01/25/2021 by Zeinab Robert MD at [facility] Left: [facility] [id number] 05/31/2023 SR-0740-C S / / [id number] documented as of this encounter Visit Diagnoses Diagnosis Malignant neoplasm metastatic to bone (HCC) Secondary malignant neoplasm of bone and bone marrow Hypocalcemia documented in this encounter Advance Directives Latest Code Status on File Code Status Date Activated Date Inactivated Comments Full Code 01/25/2021 10:53 AM 01/26/2021 1:19 PM This order reflects the patients wishes and were consensually agreed upon. Care Teams Legal Practice Manager Relationship Specialty Start Date End Date Dru Fritz MD [address] [place] [address] PCP - General Family Medicine 01/24/21 documented as of this encounter
--- NOTE | 2024-02-17 01:22 | Communication Note ---
Date of Service: February 17, 2024 Patient with with NSVT as per RN Asymptomatic during episode. Initiate low-dose beta-braydon
[2024-02-17] MEDS: METOPROLOL TARTRATE 25 MG TAB PO STA (01:40)
[2024-02-17 01:49] LABS: Magnesium 2.3 mg/dl (1.7-2.4)
[2024-02-17 06:12] LABS: Hematocrit (blood only) 26.6 % (42.0-52.0); Hemoglobin 8.6 g/dl (14.0-18.0); Mean Corpuscular Hemoglobin 29.6 pg (25.0-34.0); Mean Corpuscular Hgb Conc 32.3 g/dL (32.0-36.0); Mean Corpuscular Volume 91.4 fL (80.0-100.0); Mean Platelet Volume 9.1 fL (9.4-12.4); Platelet Count 116 K/uL (130-400); RDW Coefficient of Variation 19.7 % (11.5-14.5); RDW Standard Deviation 65.7 fL (36.4-46.3); Red Blood Count 2.91 M/uL (4.70-6.10); White Blood Count 4.33 K/ul (4.8-10.8)
[2024-02-17 06:48] LABS: BUN Creatinine Ratio 9.6 (10-20); Creatinine Clr Calc Pharmacy 34.9 ml/min; Est GFR (African American) 42.8 ml/min; Est GFR (Non-African American) 36.9 ml/min; Magnesium 2.5 mg/dl (1.7-2.4); Phosphorus 2.6 mg/dl (2.5-4.9); Potassium 3.9 mmol/L (3.5-5.1)
[2024-02-17 07:12] LABS: Folate (Folic Acid),Ser orPlas 11.58 ng/ml (>5.38)
[2024-02-17] MEDS: CALCIUM 600MG + VIT D 400 IU TAB PO SCH (08:15)
--- NOTE | 2024-02-17 08:55 | Electrocardiogram Report ---
Test Reason : Blood Pressure : / mmHG Vent. Rate : 091 BPM Atrial Rate : 091 BPM P-R Int : 162 ms QRS Dur : 096 ms QT Int : 386 ms P-R-T Axes : 072 023 051 degrees QTc Int : 474 ms Poor data quality, interpretation may be adversely affected Sinus rhythm with Premature supraventricular complexes Otherwise normal ECG When compared with ECG of 15-FEB-2024 14:19, Premature ventricular complexes are no longer Present Premature supraventricular complexes are now Present Confirmed by Dru Valdez ([id number]) on 02/17/2024 8:54:40 AM Referred By: Gayle Queen Confirmed By:Dru Valdez
--- NOTE | 2024-02-17 09:51 | Nephrology Consultation ---
Date of Consultation February 17, 2024 Assessment & Plan (1) Acute renal failure superimposed on stage 3 chronic kidney disease: 63-year-old male with PMH of metastatic prostate cancer on chemotherapy, type 2 diabetes, PAD, HFrEF, hypertension, CKD 3, history of CVA, tobacco use disorder and other medical problems listed below who was directed from heme-onc clinic due to worsening anemia and renal function since outpatient labs CARLA on CKD . His baseline Scr is in early 1.0's, Likley Prerenal/ATN -etiology/ pluvicto use (Can cause Carla , electrolyte abnormalities and Anemia).This has already being withheld.His oral inake has also been poor over the last few months. -Obstruction needs to be ruled out, USS done but not reported yet. -Agree with IV fluids , low threshold to discontinue this due to previous h/ Heart failure or if his renal functions do not improve in the next 24 hr. -His renal functions may not return to the previous baseline. - D/c Jardiance and Entresto -Transfuse to keep Hb > 7.0 - Maintain MAP> 65 - Daily BMP , I/O (2) Acute on chronic anemia: As above - Multifactorial-- Prostate cancer, Chemotheray. CKD, Nutritional - Transfuse to keep Hb >7. - As per gabbie/ Onco (3) Prostate cancer metastatic to bone: (4) HFrEF (heart failure with reduced ejection fraction): Does not looks fluid overloaded. Careful fluid resuscitation (5) Abnormal blood electrolyte level: -Multifactorial -Chemotherapy. CKD, Nutritional, Xgeva -Replete as necessary - Raised Magnesium 2/ ckd, Should improve as his functions get better.No replacemet needed - Order VD levels, start on calcitriol .25 mg daily - Continue on Calcium and VD replacement. History of Present Illness Reason for Consultation: AC Requesting Physician: AcutE kidney Injury on CKD 3 Attending Physician: Dion Aden MD History of Present Illness This is a 63-year-old male with who was directed from heme-onc clinic due to worsening anemia and renal function. Was seen in heme/onc infusion center on 02/14 for Xgeva injection which was held due to hypocalcemia and hypophosphatemia. Received 1L NSS fluid resuscitation and instructed to return for repeat labs. Hgb downtrended from 7.7 to 7.3 and Cr from 1.8 to 1.9 . He was directed by Dr. Queen to ED for further evaluation. Follows with Dr. Queen and Dr. Novak for mgmt of prostate cancer. Was recently started on Pluvicto treatment at [facility] [place], received for the first time 01/03/22 but one week later was admitted to [facility] for worsening anemia, renal function and improved with IV hydration. Per at bedside, PSA has been controlled but has not received another Pluvicto treatment yet (was pushed back from end of December to the end of January). Since the last chemo treatment in November (which has since been discontinued), patient endorses feeling more , fatigued and loss of appetite. + Positional lightheadedness. PMH includes recently diagnosed prostate CA on active therapy w/ Dr Novak, chronic systolic HF/ischemic ENT PHYSICIAN EF 30%> this November 43%,DM on metformin and jardiance, HTN, HL, active tobacco abuse, chronic pancreatitis, L carotid stenosis s/p stenting CKD ,(Cr 1.8-1.9 over the past 2 days (baseline ~ 1.2) He denies any change in his chronic exertional dyspnea; no edema. no n/v..No hematuria. No recent melena or hematochezia.Has been passing urine?>> not sure of output. Allergies Allergy/AdvReac Type Severity Reaction Status Date / Time amoxicillin [From Augmentin] AdvReac Intermediate DIZZINESS/C Verified 02/15/24 15:57 ONFUSION clavulanic acid AdvReac Intermediate DIZZINESS/C Verified 02/15/24 15:57 [From Augmentin] ONFUSION codeine AdvReac Intermediate Gastrointestinal Verified 02/15/24 15:57 Upset Home Medications Medication Instructions Recorded Confirmed Type atorvastatin 80 mg tablet 80 mg PO QPM 04/23/19 02/15/24 History alfuzosin 10 mg tablet,extended 10 mg PO QAM 05/31/21 02/15/24 History release 24 hr (Uroxatral) empagliflozin 25 mg tablet 25 mg PO QAM 05/31/21 02/15/24 History (Jardiance) aspirin 81 mg tablet,delayed 81 mg PO QAM #30 tabs 06/03/21 02/15/24 Rx release acetaminophen 500 mg tablet 500 - 1,000 mg PO Q6H PRN Pain 12/06/22 02/15/24 History (Tylenol Extra Strength) clopidogrel 75 mg tablet 75 mg PO QAM 12/06/22 02/15/24 History denosumab 120 mg/1.7 mL (70 mg/mL) 120 mg subcut MONTHLY 12/06/22 02/15/24 History subcutaneous solution (Xgeva) linagliptin 5 mg tablet (Tradjenta) 5 mg PO QAM 12/06/22 02/15/24 History sacubitril 24 mg-valsartan 26 mg 1 tab PO BID 12/06/22 02/15/24 History tablet (Entresto) tramadol 50 mg tablet 300 mg PO BID pain 08/01/23 02/15/24 History morphine 15 mg immediate release 15 mg PO BID PRN Pain 01/11/24 02/15/24 History tablet ondansetron HCl 8 mg tablet 8 mg PO DIRECTED PRN Nausea 01/11/24 02/15/24 History potassium phosphate, monobasic 500 500 mg PO BID 01/11/24 02/15/24 History mg soluble tablet (K-Phos Original) prochlorperazine maleate 10 mg 10 mg PO DIRECTED PRN Nausea 01/11/24 02/15/24 History tablet calcium carbonate 600 mg-vitamin 3 tab PO QAM 02/15/24 02/15/24 History D3 20 mcg (800 unit) chewable tablet (Caltrate 600 plus D) morphine 15 mg tablet,extended 15 mg PO DAILY PRN Pain 02/15/24 02/15/24 History release Patient History Medical History History of left heart catheterization (LHC) "cardiac cath -02/04 10-20% block" Stroke Surgical History History of left common carotid artery stent placement Family History Mother , in her 80s Myocardial infarction H/O cardiac surgery Diabetes Father , 58yo Myocardial infarction Lung disease 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 Brother No problems noted. Brother No problems noted. Brother No problems noted. Brother No problems noted. Daughter No problems noted. Son No problems noted. Son Diabetes Other Heart disease Hypertension Social History Smoking Status: Current every day smoker Tobacco Type: Cigarettes packs per day: 0.5; Cigarettes Per Day: pack per day; Do You Dip or Chew Tobacco: No; Tobacco Cessation Education Requested by Patient: No Hx Alcohol Use: Yes Alcohol type: beer Alcohol Intake Frequency: Monthly or Less Hx Substance Use: Yes Prescribed Medications: Marijuana Last Used Substance: Just Prior to Arrival Last Used Substance Other:: marijuana 01/10 Preferred Language: Jamaican Communication Ability: Effective Visual Impairment: No Limitations Hearing Ability: Normal Drop Wire Aligner Required: No Beliefs That Will Affect Care: None marital status: Current Living Situation: Spouse and Family Current Living Situation Comment: , daughter/her spouse current occupational status: retired Feels Safe at Home: Yes Safety Concerns: Feels Safe At This Time Diet: regular caffeine: No during the past year weight has: decreased > 10 lbs Assistive Devices: None Review of Systems 2 Review of Systems: c/o weakness and lightheadness loss of appetite Frail looking, weak. Physical Exam 2 Physical Exam: Constitutional: well developed, + thin, + frail appearing (appears older than stated age) Respiratory: normal respiratory effort (lying flat on RA) Cardiovascular: Heart Sounds: normal S1 and normal S2 Extremities: no edema Gastrointestinal (Abdomen): + abdomen tender (discomfort w/ moderate low ant palpation) and abdomen soft Musculoskeletal: No pedal edema Skin: no rashes, warm and dry Results & Data Vital Signs (Past 12 Hours) Vital Signs Temp Pulse Pulse Resp BP Pulse Ox O2 Del Method 02/17/24 07:27 36.3 C L 77 15 133/82 98 Room Air 02/17/24 03:46 36.5 C 87 20 150/83 H 97 Room Air 02/17/24 01:02 154 H 02/16/24 23:22 36.8 C 92 H 20 121/74 97 Room Air 02/16/24 22:01 89 Laboratory Results 02/17/24 05:36 02/17/24 05:36
[2024-02-17] MEDS: FERROUS SULFATE 325 MG TAB PO SCH (10:35)
[2024-02-17] MEDS: CALCIUM GLUCONATE 1,000 MG/60 ML BAG IV ONE (10:35)
[2024-02-17] MEDS: CYANOCOBALAMIN 1000 MCG/ML VIAL IM ONE (10:35)
--- NOTE | 2024-02-17 10:59 | Ultrasound Report ---
RENAL ULTRASOUND HISTORY: Acute kidney injury CARLA COMPARISON: 09/11/2023 FINDINGS: Right kidney: 13.4 cm. Moderate hydronephrosis. Normal corticomedullary differentiation and cortical thickness. Left kidney: 8.5 cm. Mild to moderate hydronephrosis. Diffuse cortical thinning Bladder: Bladder wall thickening and trabeculation. Prostatomegaly protrudes into the base of the uri nary bladder. IMPRESSION: 1. Prostamegaly with evidence of chronic bladder outlet obstruction. 2. Right greater than left hydronephrosis may be secondary to the bladder outlet obstruction. 3. Atrophic left kidney redemonstrated. ACT 112: Negative or not required by law. Electronically signed by: Mejia Kowalski M.D. 02/17/2024 10:58 AM
[2024-02-17] MEDS: LIDOCAINE 2% JELLY 5 ML TUBE EXT ONE (13:14)
[2024-02-17] MEDS: CALCITRIOL 0.25 MCG CAPSULE PO SCH (14:29)
--- NOTE | 2024-02-17 14:39 | CT Scan Report ---
ABDOMEN AND PELVIS CT WITHOUT CONTRAST CT DOSE: 689.84 mGy.cm HISTORY: Acute bilateral flank pain Obstructive Uropathy TECHNIQUE: Multiaxial CT images of the abdomen and pelvis were performed without contrast. A dose lo wering technique was utilized adhering to the principles of ALARA. COMPARISON STUDY: Renal ultrasound from the, PET/CT 11/21/2023 FINDINGS: Cardiomegaly. Small pericardial effusion. Extensive coronary artery calcifications. Small p leural effusions. No free air. Unenhanced spleen is mildly enlarged. Unremarkable unenhanced pancreas . Decompressed gallbladder with wall thickening. Adrenal hyperplasia. Unremarkable liver. Bilateral p erinephric stranding. Atrophic left kidney. Moderate bilateral hydroureteronephrosis. Renal hypodensi ties suggestive of cysts. Atherosclerosis of the aorta. 3.1 x 2.4 similar left iliac chain lymph node on image 203 series 3 previously mentioned 1.9 x 1.7 cm. Progressive metastatic lymphadenopathy. Pro statomegaly. Soft tissue at the base of the urinary bladder measures 4.8 cm. Urinary bladder wall thi ckening with partial distention and perivesicular stranding. No bowel obstruction. Mild nonspecific circumferential wall thickening of the rectosigmoid. Moderate fecal retention. Normal appendix. Anasarca. Extensive osteoblastic skeletal metastasis. Progressive. No acute pathologic fracture identified. IMPRESSION: 1. Right greater left bilateral hydroureteronephrosis without obstructing ureteral calculus or lesion identified. 2. Prostamegaly with evidence of chronic outlet obstruction. Soft tissue density within the base of t he urinary bladder measures up to 4.8 cm. This may be secondary to prostate parenchyma/mass versus a urothelial lesion and could be evaluated with cystoscopy. 3. Progressive lymphatic and osseous metastatic disease. 4. Small pleural effusions. 5. No bowel obstruction or pneumoperitoneum. ACT 112: Negative or not required by law. The above report was generated using voice recognition software. It may contain grammatical, syntax o r spelling errors. Electronically signed by: Mejia Kowalski M.D. 02/17/2024 2:38 PM
--- NOTE | 2024-02-17 15:27 | Hospitalist Progress Note ---
Date of Service February 17, 2024 Assessment & Plan (1) Acute on chronic anemia: (2) Pancytopenia due to chemotherapy: Plan: Patient is 63 yr male with H/O Metastatic prostate cancer on chemotherapy, type 2 diabetes, PAD, HFrEF, hypertension, CKD 3, history of CVA, tobacco use disorder and other medical problems listed below who was directed from heme-onc clinic due to worsening anemia and renal function since outpatient labs yesterday. Symptomatic anemia Pancytopenia--POA Likely secondary to chemotherapy/Bone marrow suppression In setting of ongoing prostate cancer chemotherapy --S/P 2 units PRBCs No obvious bleeding issues Will obtain anemia private eye CBC Needs follow-up with oncology on discharge Hb 8.6 today Platelet count stable Hypocalcemia Chronic Continue calcium, vitamin D supplements Added calcitriol as recommended by nephrology Check vitamin D levels Monitor calcium levels Obstructive uropathy--POA B/L hydroureteronephrosis In setting of BPH, metastatic prostate cancer --CT ABD:Right greater left bilateral hydroureteronephrosis without obstructing ureteral calculus or lesion identified. Prostamegaly with evidence of chronic outlet obstruction. Soft tissue density within the base of the urinary bladder measures up to 4.8 cm. This may be secondary to prostate parenchyma/mass versus a urothelial lesion and could be evaluated with cystoscopy. Progressive lymphatic and osseous metastatic disease. Small pleural effusions. No bowel obstruction or pneumoperitoneum. --Renal USD:Prostamegaly with evidence of chronic bladder outlet obstruction. Right greater than left hydronephrosis may be secondary to the bladder outlet obstruction. Atrophic left kidney redemonstrated. -- Place Velasquez catheter to minimize retention Urology consulted NSVT PVCs Monitor and replace electrolytes as as needed Started on metoprolol 12.5 mg twice a day (3) Prostate cancer metastatic to bone: Plan: Ongoing cancer treatment, previously on chemo (discontinued in November), received first dose of Pluvicto treatment at [facility], received for the first time 01/03/22 but subsequent treatment was postponed due to anemia Reports chronic bone and Pelvic Pain Pain control Needs follow-up with oncology on discharge (4) Acute renal failure superimposed on stage 3 chronic kidney disease: Plan: Baseline Cr~ 1.3 Renal toxicity listed as side effect from Plucivto Obstructive uropathy, atrophic kidney contributing as well Hold Entresto, Jardiance Clinically dehydrated Continue gentle IV fluids cautiously given history of heart failure Monitor renal function Avoid nephrotoxic agents as able Cr 1.8 today Appreciate nephrology input (5) Elevated troponin: Plan: Likely demand ischemia in setting of anemia Denies chest pain EKG reviewed - sinus tachycardia with occasional PVCs, otherwise normal PVCs Monitor and replace electrolytes as needed (6) HFrEF (heart failure with reduced ejection fraction): Plan: ECHO from Aug 2023 shows EF 48% (improved from previous), no valvular abnormalities Continue Entresto, statin (7) DM2 (diabetes mellitus, type 2): Plan: HbA1c 6.3 in November 2023 Hold home agents Continue insulin while hospitalized Monitor BGs (8) PAD (peripheral artery disease): Plan: Continue aspirin, statin, Plavix (9) History of CVA (cerebrovascular accident): Plan: Continue aspirin, Plavix, Statin (10) BPH with obstruction/lower urinary tract symptoms: Plan: Continue alfuzosin, bladder scan PRN Tobacco use disorder Refuses nicotine patch Investigation Officer to quit smoking DVT Px: SCDs Re: Anemia, thrombocytopenia Code status: FULL CODE Admission and Anticipated Discharge Date Admission Date: February 15, 2024 Subjective Patient is seen and examined at bedside No new complaints Discussed with urology today No significant weakness today Chronic groin pain which he attributes to prostate issues Denies chest pain, dyspnea, nausea, vomiting, abdominal pain Review of Systems Review of Systems: All systems reviewed & are unremarkable except as noted in Subjective Physical Exam Physical Exam: Physical Exam: Vitals signs as noted above General Appearance:Thin, frail, chronic ill appearing, no apparent distress Head: normocephalic, Atraumatic Eyes: normal inspection, EOMI Neck: supple, Trachea midline Respiratory/Chest: Normal breath sounds, CTA, No accessory muscle use Cardiovascular: S1, S2, No murmur Abdomen/GI:Soft, Non tender, Bowel sounds present Extremities/Musculoskeletal:normal inspection, no edema Neurologic/Psych:AAOX3, grossly no focal neurological deficits Skin: normal color, warm Results & Data Results & Data Vital Signs (Past 12 Hours) Vital Signs Temp Pulse Pulse Resp BP BP Pulse Ox 02/17/24 15:16 113 H 02/17/24 10:54 36.6 C 73 14 136/78 97 02/17/24 07:30 82 02/17/24 07:27 36.3 C L 77 15 133/82 98 02/17/24 03:46 36.5 C 87 20 150/83 H 97 O2 Del Method 02/17/24 15:16 02/17/24 10:54 Room Air 02/17/24 07:30 02/17/24 07:27 Room Air 02/17/24 03:46 Room Air Laboratory Results Short CBC 02/17/24 Range/Units 05:36 WBC 4.33 L (4.8-10.8) K/ul Hgb 8.6 L (14.0-18.0) g/dl Hct 26.6 L (42.0-52.0) % Plt Count 116 L (130-400) K/uL BMP 02/17/24 05:36 Sodium 140 Potassium 3.9 Chloride 112 H Carbon Dioxide 21 BUN 18 Creatinine 1.88 H Glucose 129 H Calcium 7.0 L
--- NOTE | 2024-02-17 15:44 | Urology Consultation ---
Date of Consultation February 17, 2024 Assessment & Plan (1) Acute renal failure superimposed on stage 3 chronic kidney disease: (2) Prostate cancer metastatic to bone: (3) Bilateral hydronephrosis: Plan 63-year-old male with metastatic prostate cancer currently admitted due to ane deborah and an CARLA. Recent imaging is showed bilateral hydronephrosis, right greater than left. The left hydronephrosis is new. CT scan likely shows soft tissue mass at the floor of the bladder that is likely obstructing both ureters Based on his renal ultrasound and CT scan, I suspect his prostate cancer has invaded the floor of the bladder and is obstructing both ureters. Either that or his lymphadenopathy has caused worsening obstruction. I do think he needs some sort of decompression to help his renal function. Not unreasonable to start with ureteral stents but this may be unsuccessful and I did discuss he may require transfer for nephrostomy tube. He may also have some scar tissue in his prostatic urethra since nursing was unable to get a catheter in place and he has noted worsening urinary symptoms. I would take him to the OR today however he will not be appropriately n.p.o. until 10 PM as he recently ate. Recommend n.p.o. at midnight, urology can reevaluate his clinical status tomorrow morning Can hold off on catheterization given that he is voiding spontaneously Urology to follow History of Present Illness Attending Physician: Dion Aden MD History of Present Illness 63-year-old male who is currently admitted to the medicine service due to abnormal labs. He was noted to have anemia, pancytopenia and an CARLA. He has a history of metastatic prostate cancer who is currently on chemotherapy. Baseline creatinine in December 2023 was 1.16. He was admitted with a value of 1.85 and is currently 1.88 today. Based on previous imaging he has known the right hydronephrosis but a recent ultrasound done in the hospital showed b ilateral. A CT scan was performed which showed bilateral hydronephrosis, right greater than left and a soft tissue mass at the base of the bladder which is likely metastatic prostate cancer that is obstructing both ureteral orifice ease. That may be the source of obstruction or enlarged lymphadenopathy. Blood cultures are negative. No urinalysis has been performed. Nursing tried to place a catheter today but was unsuccessful. He does report some difficulty urinating prior to his hospitalization. He has voided since they attempted catheter placement. He does not have any flank pain. He is currently getting Pluvicto but has only had 1 treatment. Allergies Allergy/AdvReac Type Severity Reaction Status Date / Time amoxicillin [From Augmentin] AdvReac Intermediate DIZZINESS/C Verified 02/15/24 15:57 ONFUSION clavulanic acid AdvReac Intermediate DIZZINESS/C Verified 02/15/24 15:57 [From Augmentin] ONFUSION codeine AdvReac Intermediate Gastrointestinal Verified 02/15/24 15:57 Upset Home Medications Medication Instructions Recorded Confirmed Type atorvastatin 80 mg tablet 80 mg PO QPM 04/23/19 02/15/24 History alfuzosin 10 mg tablet,extended 10 mg PO QAM 05/31/21 02/15/24 History release 24 hr (Uroxatral) empagliflozin 25 mg tablet 25 mg PO QAM 05/31/21 02/15/24 History (Jardiance) aspirin 81 mg tablet,delayed 81 mg PO QAM #30 tabs 06/03/21 02/15/24 Rx release acetaminophen 500 mg tablet 500 - 1,000 mg PO Q6H PRN Pain 12/06/22 02/15/24 History (Tylenol Extra Strength) clopidogrel 75 mg tablet 75 mg PO QAM 12/06/22 02/15/24 History denosumab 120 mg/1.7 mL (70 mg/mL) 120 mg subcut MONTHLY 12/06/22 02/15/24 History subcutaneous solution (Xgeva) linagliptin 5 mg tablet (Tradjenta) 5 mg PO QAM 12/06/22 02/15/24 History sacubitril 24 mg-valsartan 26 mg 1 tab PO BID 12/06/22 02/15/24 History tablet (Entresto) tramadol 50 mg tablet 300 mg PO BID pain 08/01/23 02/15/24 History morphine 15 mg immediate release 15 mg PO BID PRN Pain 01/11/24 02/15/24 History tablet ondansetron HCl 8 mg tablet 8 mg PO DIRECTED PRN Nausea 01/11/24 02/15/24 History potassium phosphate, monobasic 500 500 mg PO BID 01/11/24 02/15/24 History mg soluble tablet (K-Phos Original) prochlorperazine maleate 10 mg 10 mg PO DIRECTED PRN Nausea 01/11/24 02/15/24 History tablet calcium carbonate 600 mg-vitamin 3 tab PO QAM 02/15/24 02/15/24 History D3 20 mcg (800 unit) chewable tablet (Caltrate 600 plus D) morphine 15 mg tablet,extended 15 mg PO DAILY PRN Pain 02/15/24 02/15/24 History release Patient History Medical History History of left heart catheterization (LHC) "cardiac cath -02/04 10-20% block" Stroke Surgical History History of left common carotid artery stent placement Family History Mother , in her 80s Myocardial infarction H/O cardiac surgery Diabetes Father , 58yo Myocardial infarction Lung disease 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 Brother No problems noted. Brother No problems noted. Brother No problems noted. Brother No problems noted. Daughter No problems noted. Son No problems noted. Son Diabetes Other Heart disease Hypertension Social History Smoking Status: Current every day smoker Tobacco Type: Cigarettes packs per day: 0.5; Cigarettes Per Day: pack per day; Do You Dip or Chew Tobacco: No; Tobacco Cessation Education Requested by Patient: No Hx Alcohol Use: Yes Alcohol type: beer Alcohol Intake Frequency: Monthly or Less Hx Substance Use: Yes Prescribed Medications: Marijuana Last Used Substance: Just Prior to Arrival Last Used Substance Other:: marijuana 01/10 Preferred Language: Telugu Communication Ability: Effective Visual Impairment: No Limitations Hearing Ability: Normal Tool Design Checker Required: No Beliefs That Will Affect Care: None marital status: Current Living Situation: Spouse and Family Current Living Situation Comment: , daughter/her spouse current occupational status: retired Feels Safe at Home: Yes Safety Concerns: Feels Safe At This Time Diet: regular caffeine: No during the past year weight has: decreased > 10 lbs Assistive Devices: None Physical Exam Physical Exam: General: Alert and oriented, no acute distress HEENT: Normocephalic, mucous membranes moist Pulmonary: Nonlabored respirations Abdomen: Nondistended Extremities: Moves all 4 spontaneously Neuro: No gross deficits Skin: Warm, dry, no rashes noted Results & Data Vital Signs (Past 12 Hours) Vital Signs Temp Pulse Pulse Resp BP BP Pulse Ox 02/17/24 15:19 36.6 C 116 H 15 142/90 H 97 02/17/24 15:16 113 H 02/17/24 10:54 36.6 C 73 14 136/78 97 02/17/24 07:30 82 02/17/24 07:27 36.3 C L 77 15 133/82 98 02/17/24 03:46 36.5 C 87 20 150/83 H 97 O2 Del Method 02/17/24 15:19 Room Air 02/17/24 15:16 02/17/24 10:54 Room Air 02/17/24 07:30 02/17/24 07:27 Room Air 02/17/24 03:46 Room Air PG Care Time/CCT Total # of Minutes Spent Total Time Spent with Patient: Total time spent is greater than 50% in coordination of care (as documented) at patient's floor/unit and/or counseling patient: Coding Level of Care Code 72096 IN/OBS CONSULT LVL 3,45M Diagnoses Acute renal failure superimposed on stage 3 chronic kidney disease N17.9; N18.30 Prostate cancer metastatic to bone C61; C79.51 Bilateral hydronephrosis N13.30
--- NOTE | 2024-02-17 16:10 | Communication Note ---
Date of Service: February 17, 2024 Discussed with urology today. Can hold off Velasquez catheter given patient voiding. Bladder scan as needed. Will make him n.p.o. for possible stent tomorrow.
[2024-02-17] MEDS: METOPROLOL TARTRATE 25 MG TAB PO SCH (20:33)
[2024-02-18 06:34] LABS: Hematocrit (blood only) 26.2 % (42.0-52.0); Hemoglobin 8.4 g/dl (14.0-18.0); Mean Corpuscular Hemoglobin 29.5 pg (25.0-34.0); Mean Corpuscular Hgb Conc 32.1 g/dL (32.0-36.0); Mean Corpuscular Volume 91.9 fL (80.0-100.0); Mean Platelet Volume 8.8 fL (9.4-12.4); Nucleated RBC # (auto) 0.02 K/uL (0.00-0.12); Nucleated RBC % (auto) 0.5 %; Platelet Count 116 K/uL (130-400); RDW Coefficient of Variation 19.2 % (11.5-14.5); RDW Standard Deviation 64.7 fL (36.4-46.3); Red Blood Count 2.85 M/uL (4.70-6.10); White Blood Count 4.12 K/ul (4.8-10.8)
[2024-02-18 06:50] LABS: BUN Creatinine Ratio 8.7 (10-20); Calcium 7.6 mg/dl (8.6-10.3); Creatinine Clr Calc Pharmacy 31.5 ml/min; Est GFR (African American) 38.3 ml/min; Est GFR (Non-African American) 33.1 ml/min; Phosphorus 3.1 mg/dl (2.5-4.9); Potassium 3.9 mmol/L (3.5-5.1)
--- NOTE | 2024-02-18 07:54 | Nephrology Progress Note ---
Date of Service February 18, 2024 Assessment & Plan (1) Acute renal failure superimposed on stage 3 chronic kidney disease: Plan: 63-year-old male with PMH of metastatic prostate cancer on chemotherapy, type 2 diabetes, PAD, HFrEF (EF 48% improved), hypertension, CKD 3, history of CVA, tobacco use disorder and other medical problems listed below who was directed from heme-onc clinic due to worsening anemia and renal function since outpatient labs CARLOS on CKD, at least in part obstructive +/- role for pluvicto causing prerenal/ischemic ATN. His baseline Scr is in low 1.0's, pluvicto Can cause Carlos , electrolyte abnormalities and Anemia. This has already being withheld.His oral inake has also been poor over the last few months. -hold IVF -His renal functions may not return to the previous baseline. - cont to hold Jardiance and Entresto - monitor sNa on tramadol current dose -Transfuse to keep Hb > 7.0 - Maintain MAP> 65 - Daily BMP , I/O (2) Acute on chronic anemia: Plan: As above - Multifactorial-- Prostate cancer, Chemotheray. CKD, Nutritional - Transfuse to keep Hb >7. - As per hea/ Onco (3) Abnormal blood electrolyte level: Plan: -Multifactorial but improved/ acceptable chemistries today; caused by Chemotherapy. CKD, Nutritional, Xgeva -Replete as necessary - cont calcitriol .25 mg daily - Continue on Calcium and VD replacement. Admission and Anticipated Discharge Date Admission Date: February 15, 2024 Subjective waiting on cystoscopy time. no sob, no edema; some R groin pain; family at bedside when I saw him this am Review of Systems 2 Review of Systems: All systems reviewed & are unremarkable except as noted in Subjective Physical Exam 2 Constitutional: well developed, + thin and cooperative; no acute distress Eyes: EOM intact bilaterally ENMT: Ears: no external ear abnormality Nose: no external nose abnormality Mouth: + dry oral mucous membranes Neck: no nuchal rigidity Respiratory: normal respiratory effort Auscultation: + diminished lung sounds Cardiovascular: RRR, no murmur, no edema Gastrointestinal (Abdomen): Inspection/Auscultation: normal bowel sounds P ercussion/Palpation: abdomen soft; abdomen nontender Musculoskeletal: Extremities: strength 5/5 throughout Skin: no rashes, warm and dry Neurologic: arias, fluent speech, no tremor Results & Data Vital Signs (Past 12 Hours) Vital Signs Temp Pulse Pulse Resp BP Pulse Ox O2 Del Method 02/18/24 07:39 36.6 C 86 18 117/67 99 Room Air 02/18/24 03:46 36.7 C 81 20 124/71 97 Room Air 02/17/24 23:03 36.4 C L 89 20 112/74 97 Room Air 02/17/24 22:08 93 H Laboratory Results 02/18/24 05:48 02/18/24 05:48 Diagnostic Findings renal u/s 1. Prostamegaly with evidence of chronic bladder outlet obstruction. 2. Right greater than left hydronephrosis may be secondary to the bladder outlet obstruction. 3. Atrophic left kidney redemonstrated. CT a/p 1. Right greater left bilateral hydroureteronephrosis without obstructing ureteral calculus or lesion identified. 2. Prostamegaly with evidence of chronic outlet obstruction. Soft tissue density within the base of the urinary bladder measures up to 4.8 cm. This may be secondary to prostate parenchyma/mass versus a urothelial lesion and could be evaluated with cystoscopy. 3. Progressive lymphatic and osseous metastatic disease. 4. Small pleural effusions. 5. No bowel obstruction or pneumoperitoneum.
--- NOTE | 2024-02-18 08:20 | Urology Progress Note ---
Date of Service February 18, 2024 Assessment & Plan (1) Bilateral hydronephrosis: (2) Prostate cancer metastatic to bone: Plan: 63-year-old male with metastatic prostate cancer currently admitted due to anemia and an CARLA. Recent imaging is showed bilateral hydronephrosis, right greater than left. The left hydronephrosis is new. CT scan likely shows soft tissue mass at the floor of the bladder that is likely obstructing both ureters. Patient afebrile and hemodynamically stable Labs reviewed - creatinine 2.06, WBC 4.12, Hgb 8.4 Discussed bilateral hydronephrosis and option for surgical intervention with ureteral stent placement today as previously discussedhe is agreeable Proceed to OR for cystoscopy and bilateral ureteral stent placement, possible bilateral ureteroscopy, possible resection of tumor Discussed that ureteral stents may not be successful and he may require transfer for nephrostomy tube Risks and benefits of procedure to be reviewed with patient by Dr. Chaudhari Will cover with IV antibiotics preoperatively Keep NPO for procedure Continue supportive care and medical management per hospital medicine service Attending note: Patient independently assessed, examined, interviewed, and evaluated. Agree with note as above. Patient's vitals and labs were all reviewed. Pertinent values in the HPI and plan section. Imaging was reviewed interpreted by myself. Agree with read. Vitals were reviewed. Discussed findings extensively with patient and family. Reviewed with nurse practitioner as well as consulting physicians/team. Patient's complicated medical and surgical history was reviewed and summarized above. Patient's surgical, medical, social, and family history were all reviewed with pertinent values as above. Discussed patient's current diagnosis as well as concerns and issues. Reviewed different options moving forward. Discussed potential risks and benefits as well as possible options and concerns. Reviewed potential surgical options and interventions. Discussed potential issues and concerns related to intervention. Risk and benefits were discussed extensively with patient and any available family. Discussed potential risks related to anesthesia. Discussed risks of bleeding infection and injury. Risks and benefits discussed at length for procedure. These include bleeding, infection, injury to surrounding tissues or organs, and risks associated with anesthesia. Patient states understanding and agrees to proceed. Will sign consent and proceed. Plan for cystoscopy with possible bilateral stent placement. Possible resection of mass versus ureteroscopy bilateral depending on findings. Admission and Anticipated Discharge Date Admission Date: February 15, 2024 Subjective Patient seen and examined at bedside this morning No acute issues overnight Denies flank pain Voiding spontaneously Denies fever or chills Review of Systems Constitutional: as per Subjective / HPI Genitourinary: + as per Subjective / HPI Physical Exam Constitutional: + thin; no acute distress Respiratory: normal respiratory effort; no respiratory distress and no labored breathing Gastrointestinal (Abdomen): Inspection/Auscultation: abdomen normal to inspection Musculoskeletal: Head/Neck/Chest: normocephalic Neurologic: moves all extremities and awake Psychiatric: Orientation: alert and oriented x 3 Results & Data Vital Signs (Past 12 Hours) Vital Signs Temp Pulse Pulse Resp BP Pulse Ox O2 Del Method 02/18/24 07:39 36.6 C 86 18 117/67 99 Room Air 02/18/24 03:46 36.7 C 81 20 124/71 97 Room Air 02/17/24 23:03 36.4 C L 89 20 112/74 97 Room Air 02/17/24 22:08 93 H PG Care Time/CCT Total # of Minutes Spent Total Time Spent with Patient: Total time spent is greater than 50% in coordination of care (as documented) at patient's floor/unit and/or counseling patient: Coding Level of Care Code 73742 SUB INP/OBS CARE 2/35MIN Diagnoses Bilateral hydronephrosis N13.30 Prostate cancer metastatic to bone C61; C79.51
[2024-02-18] MEDS: CYANOCOBALAMIN (B-12) 500 MCG TABLET PO SCH (09:38)
[2024-02-18] MEDS ORDERED: fentaNYL citrate PF 100 MCG/2 ML VIAL IV PRN (15:31)
[2024-02-18] MEDS ORDERED: ONDANSETRON INJ 2 MG/ML 2 ML VIAL IV PRN (15:31)
[2024-02-18] MEDS ORDERED: ATROPINE SULFATE 0.1 MG/ML 10ML SYR IV PRN (15:31)
[2024-02-18] MEDS ORDERED: PROMETHAZINE HCL 6.25 MG in SODIUM CHLORIDE 0.9% 50 ML IV PRN (15:31)
[2024-02-18] MEDS ORDERED: HYDROmorphone INJ 2 MG/ML SYR/VIAL IV PRN (15:31)
[2024-02-18] MEDS ORDERED: ePHEDrine sulfate 50 MG/ML AMP IV PRN (15:31)
--- NOTE | 2024-02-18 15:31 | Anesthesiology Consultation ---
Date of Service February 18, 2024 Assessment & Plan Chart Review Chart Review: Acceptable Risk for Surgery Consults Requested none ASA [id number] Proposed Anesthesia Anesthesia Type: General History Surgery Operation Date: 02/18/24 07:00 Proposed Procedures p Cystoscopy, Bilateral Ureteroscopy and Stent Placement - Oracio Chaudhari DO s Possible Transurethral Resection Prostate - Oracio Chaudhari DO Height/Weight Height: 5 ft 8 in Weight: 61.4 kg Allergies Allergy/AdvReac Type Severity Reaction Status Date / Time amoxicillin [From Augmentin] AdvReac Intermediate DIZZINESS/C Verified 02/15/24 15:57 ONFUSION clavulanic acid AdvReac Intermediate DIZZINESS/C Verified 02/15/24 15:57 [From Augmentin] ONFUSION codeine AdvReac Intermediate Gastrointestinal Verified 02/15/24 15:57 Upset Medications Home Medications Medication Instructions Recorded Confirmed Last Taken atorvastatin 80 mg tablet 80 mg PO QPM 04/23/19 02/15/24 02/14/24 alfuzosin 10 mg tablet,extended 10 mg PO QAM 05/31/21 02/15/24 02/15/24 release 24 hr (Uroxatral) empagliflozin 25 mg tablet 25 mg PO QAM 05/31/21 02/15/24 02/15/24 (Jardiance) aspirin 81 mg tablet,delayed 81 mg PO QAM #30 tabs 06/03/21 02/15/24 02/15/24 release acetaminophen 500 mg tablet 500 - 1,000 mg PO Q6H PRN Pain 12/06/22 02/15/24 Unknown (Tylenol Extra Strength) clopidogrel 75 mg tablet 75 mg PO QAM 12/06/22 02/15/24 02/15/24 denosumab 120 mg/1.7 mL (70 mg/mL) 120 mg subcut MONTHLY 12/06/22 02/15/24 2 Months Ago subcutaneous solution (Xgeva) ~12/16/23 linagliptin 5 mg tablet (Tradjenta) 5 mg PO QAM 12/06/22 02/15/24 02/15/24 sacubitril 24 mg-valsartan 26 mg 1 tab PO BID 12/06/22 02/15/24 02/15/24 tablet (Entresto) tramadol 50 mg tablet 300 mg PO BID pain 08/01/23 02/15/24 02/14/24 morphine 15 mg immediate release 15 mg PO BID PRN Pain 01/11/24 02/15/24 02/14/24 tablet ondansetron HCl 8 mg tablet 8 mg PO DIRECTED PRN Nausea 01/11/24 02/15/24 Unknown potassium phosphate, monobasic 500 500 mg PO BID 01/11/24 02/15/24 02/15/24 mg soluble tablet (K-Phos Original) prochlorperazine maleate 10 mg 10 mg PO DIRECTED PRN Nausea 01/11/24 02/15/24 Unknown tablet calcium carbonate 600 mg-vitamin 3 tab PO QAM 02/15/24 02/15/24 02/15/24 D3 20 mcg (800 unit) chewable tablet (Caltrate 600 plus D) morphine 15 mg tablet,extended 15 mg PO DAILY PRN Pain 02/15/24 02/15/24 02/14/24 release Active Medications Generic Name Dose Route Start Last Admin Trade Name Freq PRN Reason Stop Dose Admin Aspirin 81 mg 02/16/24 09:00 02/18/24 09:39 Aspirin 81 Mg Ectab PO 03/17/24 08:59 81 mg QAM GENIA Administration Atorvastatin Calcium 80 mg 02/15/24 21:00 02/17/24 20:33 Atorvastatin 40 Mg Tab PO 03/16/24 20:59 80 mg QPM GENIA Administration Calcium/Vitamin D 1 tab 02/17/24 09:00 02/18/24 14:26 Calcium 600mg + Vit D 400 Iu Tab PO 03/18/24 08:59 1 tab TID GENIA Administration Clopidogrel Bisulfate 75 mg 02/16/24 09:00 02/18/24 09:39 Clopidogrel Bisulfate 75 Mg Tab PO 03/17/24 08:59 75 mg QAM GENIA Administration Cyanocobalamin 1,000 mcg 02/18/24 09:00 02/18/24 09:38 Cyanocobalamin (B-12) 500 Mcg Tablet PO 03/19/24 08:59 1,000 mcg QAM GENIA Administration Ferrous Sulfate 325 mg 02/17/24 09:30 02/18/24 09:39 Ferrous Sulfate 325 Mg Tab PO 03/18/24 09:29 325 mg QAM GENIA Administration Insulin Aspart 0 units 02/15/24 23:57 02/18/24 12:34 Insulin Aspart Per Unit Charge SC 03/16/24 23:56 Not Given ACHS GENIA Metoprolol Tartrate 12.5 mg 02/17/24 21:00 02/18/24 09:37 Metoprolol Tartrate 25 Mg Tab PO 03/18/24 20:59 12.5 mg BID GENIA Administration Morphine Sulfate 15 mg 02/15/24 16:56 02/18/24 00:18 Morphine Sulfate Ir 15 Mg Tab (Immediate Release) PO 02/29/24 16:55 15 mg BID PRN Administration BREAKTHROUGH PAIN Sacubitril/Valsartan 1 tab 02/15/24 21:00 02/17/24 08:15 Valsartan/Sacubitril 26/24mg Tab PO 03/16/24 20:59 1 tab BID GENIA Administration Tamsulosin HCl 0.4 mg 02/16/24 09:00 02/18/24 09:39 Tamsulosin Hcl 0.4 Mg Cap PO 03/17/24 08:59 0.4 mg QAM GENIA Administration Protocol Tramadol HCl 150 mg 02/15/24 21:00 02/18/24 09:40 Tramadol Hcl 50 Mg Tablet PO 03/16/24 20:59 150 mg BID GENIA Administration NPO Date Last Intake of Fluids: 02/17/24 Time Last Intake of Fluids: 23:55 Last Intake of Fluids Comment: sip of water 0900 w/med Date Last Intake of Solids: 02/17/24 Time Last Intake of Solids: 19:00 Past Medical History Medical History History of left heart catheterization (LHC) "cardiac cath 10-20% block" Stroke Past Family History Family History Mother , in her 80s Myocardial infarction H/O cardiac surgery Diabetes Father , 58yo Myocardial infarction Lung disease 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 Brother No problems noted. Brother No problems noted. Brother No problems noted. Brother No problems noted. Daughter No problems noted. Son No problems noted. Son Diabetes Other Heart disease Hypertension Past Surgical History Surgical History History of left common carotid artery stent placement Social History Smoking Status: Current every day smoker tobacco type: cigarettes Smoking cigarettes per day: pack per day Do You Dip or Chew Tobacco: No Hx Alcohol Use: Yes Alcohol type: beer alcohol intake frequency: 0-2 drinks per day Alcohol Intake Frequency Comment: 1 beer per day Hx Substance Use: Yes substance use type: marijuana Last Used Substance: Just Prior to Arrival Last Used Substance Other:: marijuana 01/10 Physical Exam Vital Signs Last Vital Signs Temp 36.5 C 02/18/24 15:26 Pulse 97 H 02/18/24 15:26 Resp 20 02/18/24 15:26 BP 143/85 H 02/18/24 15:26 Pulse Ox 99 02/18/24 15:26 O2 Del Method Room Air 02/18/24 15:26 Testing Laboratory Results 02/18/24 05:48 02/18/24 05:48 Blood Type A Positive 02/15/24 14:37 Antibody Screen NEGATIVE 02/15/24 14:37 02/18/24 02/18/24 12:01 07:59 POC Glucose 129 H 128 H
[2024-02-18] MEDS: LACTATED RINGER'S 1,000 ML IV SCH (15:35)
[2024-02-18] MEDS ORDERED: ONDANSETRON INJ 2 MG/ML 2 ML VIAL ONE (15:37)
[2024-02-18] MEDS ORDERED: fentaNYL citrate PF 100 MCG/2 ML VIAL ONE ×2 (15:37→17:11)
[2024-02-18] MEDS ORDERED: PROPOFOL IV EMULSION 10 MG/ML 20 ML VIAL IV ONE ×2 (15:37→16:46)
[2024-02-18] MEDS ORDERED: MIDAZOLAM HCL 1 MG/ML 2ML VIAL ONE (15:37)
[2024-02-18] MEDS ORDERED: LIDOCAINE 2% 2 ML VIAL/AMP(20MG/ML) INFIL ONE (15:37)
--- NOTE | 2024-02-18 16:34 | Hospitalist Progress Note ---
Date of Service February 18, 2024 Assessment & Plan (1) Acute on chronic anemia: (2) Pancytopenia due to chemotherapy: Plan: Patient is 63 yr male with H/O Metastatic prostate cancer on chemotherapy, type 2 diabetes, PAD, HFrEF, hypertension, CKD 3, history of CVA, tobacco use disorder and other medical problems listed below who was directed from heme-onc clinic due to worsening anemia and renal function since outpatient labs yesterday. 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 Prostamegaly with evidence of chronic outlet obstruction. Soft tissue density within the base of the urinary bladder measures up to 4.8 cm. This may be secondary to prostate parenchyma/mass versus a urothelial lesion and could be evaluated with cystoscopy. Progressive lymphatic and osseous metastatic disease. Small pleural effusions. No bowel obstruction or pneumoperitoneum. --Renal USD:Prostamegaly with evidence of chronic bladder outlet obstruction. Right greater than left hydronephrosis may be secondary to the bladder outlet obstruction. Atrophic left kidney redemonstrated. -- Place Velasquez catheter to minimize retention Appreciate Urology Input Plan for cystoscopy and ureteral stent placement today NSVT PVCs Monitor and replace electrolytes as as needed Started on metoprolol 12.5 mg twice a day (3) Prostate cancer metastatic to bone: Plan: Ongoing cancer treatment, previously on chemo (discontinued in November), received first dose of Pluvicto treatment at [facility] [place], received for the first time 01/03/22 but subsequent treatment was postponed due to anemia Reports chronic bone and Pelvic Pain Pain control Needs follow-up with oncology on discharge (4) Acute renal failure superimposed on stage 3 chronic kidney disease: Plan: Baseline Cr~ 1.3 Renal toxicity listed as side effect from Plucivto Obstructive uropathy, atrophic kidney contributing as well Hold Entresto, Jardiance Clinically dehydrated Continue gentle IV fluids cautiously given history of heart failure Monitor renal function Avoid nephrotoxic agents as able Cr 2.06 today Appreciate nephrology input (5) Elevated troponin: Plan: Likely demand ischemia in setting of anemia Denies chest pain EKG reviewed - sinus tachycardia with occasional PVCs, otherwise normal PVCs Monitor and replace electrolytes as needed (6) HFrEF (heart failure with reduced ejection fraction): Plan: ECHO from Aug 2023 shows EF 48% (improved from previous), no valvular a bnormalities Continue Entresto, statin (7) DM2 (diabetes mellitus, type 2): Plan: HbA1c 6.3 in November 2023 Hold home agents Continue insulin while hospitalized Monitor BGs (8) PAD (peripheral artery disease): Plan: Continue aspirin, statin, Plavix (9) History of CVA (cerebrovascular accident): Plan: Continue aspirin, Plavix, Statin (10) BPH with obstruction/lower urinary tract symptoms: Plan: Continue alfuzosin, bladder scan PRN Tobacco use disorder 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 DVT Px: SCDs Re: Anemia, thrombocytopenia Code status: FULL CODE Admission and Anticipated Discharge Date Admission Date: February 15, 2024 Subjective Patient seen and examined at bedside this morning Patient offers no new complaints Plan for cystoscopy, ureteral stent placement today Family at bedside Patient denies any chest pain, dyspnea, dizziness, nausea, vomiting Admits to have some chronic pelvic pain Review of Systems Review of Systems: All systems reviewed & are unremarkable except as noted in Subjective Physical Exam Physical Exam: Physical Exam: Vitals signs as noted above General Appearance:Thin, frail, chronic ill appearing, no apparent distress Head: normocephalic, Atraumatic Eyes: normal inspection, EOMI Neck: supple, Trachea midline Respiratory/Chest: Normal breath sounds, CTA, No accessory muscle use Cardiovascular: S1, S2, No murmur Abdomen/GI:Soft, Non tender, Bowel sounds present Extremities/Musculoskeletal:normal inspection, no edema Neurologic/Psych:AAOX3, grossly no focal neurological deficits Skin: normal color, warm Results & Data Results & Data Vital Signs (Past 12 Hours) Vital Signs Temp Pulse Pulse Resp BP Pulse Ox O2 Del Method 02/18/24 15:26 36.5 C 97 H 20 143/85 H 99 Room Air 02/18/24 14:20 77 05/20/24 11:13 36.5 C 104 H 16 132/82 95 Room Air 02/18/24 11:04 Room Air 02/18/24 07:39 36.6 C 86 18 117/67 99 Room Air 02/18/24 05:54 106 H Laboratory Results Short CBC 02/18/24 Range/Units 05:48 WBC 4.12 L (4.8-10.8) K/ul Hgb 8.4 L (14.0-18.0) g/dl Hct 26.2 L (42.0-52.0) % Plt Count 116 L (130-400) K/uL BMP 02/18/24 05:48 Sodium 141 Potassium 3.9 Chloride 111 H Carbon Dioxide 23 BUN 18 Creatinine 2.06 H Glucose 116 H Calcium 7.6 L
[2024-02-18] MEDS ORDERED: DIATRIZOATE MEGLUMINE 30% 100ML VIAL INSTIL PRN (17:04)
[2024-02-18] MEDS ORDERED: HYDROmorphone INJ 2 MG/ML SYR/VIAL ONE (17:19)
--- NOTE | 2024-02-18 17:55 | Fluoroscopy Report ---
FL retrograde includes kub CLINICAL HISTORY: Bilateral ureteral stent placement. COMPARISON STUDY: None. FLUOROSCOPY TIME: 5 seconds FLUOROSCOPY IMAGES: 5 Ka,r: 5.1 mGy FINDINGS: Retrograde opacification of the bilateral renal collecting systems with placement of bilate ral ureteral stents. The ureteral stents appear and good position. IMPRESSION: Fluoroscopic assistance as above. ACT 112: Negative or not required by law. Electronically signed by: Ángel Linder M.D. 02/18/2024 5:54 PM
--- NOTE | 2024-02-18 17:56 | Operative Report ---
PG Post Operative Report Pre & Post Diagnosis Operation Date: 02/18/24 07:00 Pre-Op Diagnosis: prostate cancer with metastisis to bone Post-Op Diagnosis: prostate cancer with metastisis to bone I identified the patient and participated in the time-out.: Yes Procedure Operation Date: 02/18/24 07:00 Actual Procedures Cystoscopy with meatal/Urethral Dilation, Bilateral Retrograde Pyelogram, Bilateral Stent Placement Transurethral Resection of Prostate Mass, Transurethral Resection Bladder Tumor, Large - Oracio Chaudhari DO Surgeon Oracio Chaudhari, II, DO Air Conditioning Technician None Estimated Blood Loss 5 Findings Consistent with Post-Op Diagnosis Large mass within the prostatic urethra causing severe obstructive issues within the prostatic urethra. Large mass coming off of the base of the bladder versus the base of the prostate with significant involvement of the trigone involving the majority of the base of the trigone was large and bulbous in shape. Blocking both ureters bilaterally causing considerable obstruction due to both local invasion and mass effect. Tumor along the trigone measured greater than 7.5 cm. Additional tumor along the bladder neck and within the prostatic urethra After resection of tumor bilateral severe hydronephrotic ureters were discovered and stents placed in good position. Specimens Prostate resection Resection of bladder tumor Drains Bilateral 6 Honduran multilength stents. 22 [place]uran Velasquez catheter Anesthesia Type MAC Complications none Disposition Disposition: Recovery Room Indications Patient with history of metastatic prostate cancer with development of severe obstructive issues trouble voiding and bladder tumor. Risks and benefits discussed at length. Description of Procedure Patient was consented and brought back to the operating room. Patient was placed under anesthesia in the supine position and moved to the dorsal lithotomy position. Patient was prepped and draped in the regular sterile fashion. A time out was completed. A 30degree Cystoscope was placed into the urethra. The meatus was found to be severely narrowed and this required dilation after dilation of the meatus the scope was able to advance. Within the bulbar urethra a large masslike structure was noted to be coming down the urethral channel. This was able to be displaced further up and was found to be a large tumor coming from what appeared to be within the prostatic urethra causing considerable obstruction within the urethral lumen. Further dilation of the bulbar urethra was needed. The scope was then able to displace the tumor back into the prostatic urethra. The tumor was blocking a majority of the channel and would not further be manipulated or moved out of the way. At this point the resection scope was placed. The resection scope with the fine bipolar loop was selected. The entire tumor was assessed. The tumor was resected. The prostatic tissue had to be resected in order to remove the tumor completely. This did allow access into the region of the bladder neck and with further resection the scope was able to advance within to the bladder. The bladder was found to be severely dilated. Large areas of tumor were noted throughout the base of the bladder involving the majority of the trigone appearing to possibly project from the bladder neck/prostatic base into the bladder versus from the base of the bladder directly. The tissue from within the prostatic urethra was irrigated clear and sent for pathologic analysis. Attention was then taken to the large tumor at the base of the bladder involving the trigone. Neither ureter was able to be discovered. The mass did appear to be involving the majority of the base of the bladder as well as a majority of the bladder neck and appeared to be possibly projecting from the base of the prostate. The resection scope was then utilized to resect starting at the approximately 6 o'clock position at the bladder neck and resecting along the trigone. Resection was taken along the right trigone first. The tumor was able to be debulked. The bulk of the tumor was removed and sent for analysis. After extensive resection along the right trigone the ureteral tissue was able to be appreciated and unroofed and a large lumen the hydronephrotic ureter was discovered. Using the laser bridge a 5 Honduran open-ended catheter was cannulated into the ureter and a wire was placed. A retrograde pyelogram was completed and a severely hydronephrotic hydroureter was appreciated with a significant amount of hydronephrosis. The wire was maintained in place and a 6 [place]uran multilength was then placed The remainder of the right trigone was resected to remove and debulk as much of the bulky tumor that have been projecting into the bladder as possible. Care was taken to monitor the ureter throughout the resection process. All bleeding was controlled. Resection was then carried from the midline to the left trigone. The tumor appeared to be all continuous from the right to the left and involved the majority of the base of the bladder size was greater than 7.5 cm. The left trigone was able to be resected and the ureteral opening/hydroureter was able to be discovered as well on the left. This was unroofed and yet again the 5 [place]uran open-ended catheter was able to cannulate. A wire was placed and a retrograde pyelogram was completed. The hydronephrosis on the left was slightly less severe but was still notable. It did travel all the way down to the insertion on the bladder as it with the right side. A wire was then maintained and a 6 Honduran multilength stent was placed with good confirmation on fluoroscopy. The remainder of the tumor was debulked. A large amount of tumor was appreciated still remaining along the bladder neck and within the base however the bulkiness of the tumor had been dealt with and had been drastically reduced. The resection bed and edges of the resection were fulgurated and the entire area inspected. All bleeding was controlled. The bladder was inspected a final time. The bladder was emptied. The scope was removed. A 22 Honduran catheter was then placed and set to drainage. It was irrigated easily. A final fluoroscopic image was collected in order to confirm placement of the stents bilaterally. Excellent drainage had been achieved bilaterally with the stents in good position. The patient was cleaned, aroused from anesthesia, and transferred to the pacu in stable condition having tolerated the procedure well with no complications. I was present and participated in all aspects of the procedure. The patient will be monitored in the PACU until transferred. Will plan to monitor. Will likely need to consider different options for management of possible localized invasion of prostate cancer versus development of new bladder tumor or other lesion. Will plan to maintain stents. Will maintain catheter for approximately 7 days to allow healing and decompression of the bladder. I attest to the content of the Intraoperative Record and any orders documented therein. Any exceptions are noted below.
[2024-02-18] MEDS: HYDROmorphone INJ 0.5 MG/0.5 ML SYR IV STA ×3 (18:03→18:22)
[2024-02-18] MEDS: HYDROmorphone INJ 0.5 MG/0.5 ML SYR ONE (18:05)
[2024-02-18] MEDS: HYDROmorphone INJ 1 MG/ML SYRINGE ONE (18:23)
--- NOTE | 2024-02-18 18:43 | Anesthesiology Progress Note ---
Date of Service February 18, 2024 Anesthesia Post Procedure Vital Signs Vital Signs: Temp Pulse Pulse Pulse Resp BP BP 02/18/24 18:25 108 H 18 144/87 H 02/18/24 18:15 108 H 17 144/91 H 02/18/24 18:05 114 H 20 157/83 H 02/18/24 17:55 112 H 23 115/85 02/18/24 17:45 101 H 15 133/84 02/18/24 17:38 37.2 C 95 H 12 142/87 H 02/18/24 15:26 36.5 C 97 H 20 143/85 H 02/18/24 14:20 77 02/18/24 11:13 36.5 C 104 H 16 132/82 02/18/24 11:04 02/18/24 07:39 36.6 C 86 18 117/67 02/18/24 05:54 106 H 02/18/24 03:46 36.7 C 81 20 124/71 02/17/24 23:03 36.4 C L 89 20 112/74 02/17/24 22:08 93 H 02/17/24 19:38 02/17/24 19:36 36.7 C 119 H 20 128/77 Pulse Ox O2 Del Method O2 Flow Rate 02/18/24 18:25 98 Nasal Cannula 2 02/18/24 18:15 98 Nasal Cannula 2 02/18/24 18:05 93 Room Air 02/18/24 17:55 100 Oxymask 9 02/18/24 17:45 100 Oxymask 9 02/18/24 17:38 100 Oxymask 9 02/18/24 15:26 99 Room Air 02/18/24 14:20 02/18/24 11:13 95 Room Air 02/18/24 11:04 Room Air 02/18/24 07:39 99 Room Air 02/18/24 05:54 02/18/24 03:46 97 Room Air 02/17/24 23:03 97 Room Air 02/17/24 22:08 02/17/24 19:38 Room Air 02/17/24 19:36 97 Room Air Pain Intensity Bilateral Pelvic: Pain Intensity: 5 Transfer of Care Handoff Completed per policy Notes Mental Status: alert / awake / arousable and participated in evaluation Patient Amnestic to Procedure: Yes Nausea / Vomiting: adequately controlled Pain: adequately controlled Airway Patency, RR, SpO2: stable & adequate BP & HR: stable & adequate Hydration State: stable & adequate Anesthetic Complications: no major complications apparent
[2024-02-18] MEDS: ceFAZolin 2000MG 2,000 MG/15 ML SYR IV ONE (19:34)
[2024-02-18] MEDS: CALCITRIOL 0.25 MCG CAPSULE PO SCH (19:34)
[2024-02-18] MEDS: ceFAZolin 2,000 MG/15 ML IV PUSH IV ONE (19:35)
[2024-02-18] MEDS: LACTATED RINGER'S 1,000 ML IV ONE (20:23)
[2024-02-18] MEDS: POTASSIUM CHLORIDE PWD 20 MEQ PACK PO STA (20:51)
[2024-02-19 07:02] LABS: Hematocrit (blood only) 23.6 % (42.0-52.0); Hemoglobin 7.4 g/dl (14.0-18.0)
[2024-02-19 07:26] LABS: BUN Creatinine Ratio 8.5 (10-20); Calcium 7.1 mg/dl (8.6-10.3); Creatinine Clr Calc Pharmacy 32.5 ml/min; Est GFR (African American) 39.7 ml/min; Est GFR (Non-African American) 34.3 ml/min; Potassium 3.9 mmol/L (3.5-5.1)
[2024-02-19] MEDS ORDERED: SODIUM CHLORIDE 0.9% 250 ML IV PRN (07:27)
--- NOTE | 2024-02-19 08:42 | Urology Progress Note ---
Date of Service February 19, 2024 Assessment & Plan (1) Bilateral hydronephrosis: (2) Prostate cancer metastatic to bone: Plan: 63-year-old male with metastatic prostate cancer currently admitted due to anemia and an CARLA. Recent imaging is showed bilateral hydronephrosis, right greater than left. The left hydronephrosis is new. CT scan likely shows soft tissue mass at the floor of the bladder that is likely obstructing both ureters. POD#1 s/p Cystoscopy with meatal/Urethral Dilation, Bilateral Retrograde Pyelogram, Bilateral Stent Placement, Transurethral Resection of Prostate Mass, Transurethral Resection Bladder Tumor, Large Patient afebrile and hemodynamically stable Labs reviewed - creatinine improved to 2.00, Hgb 7.4 Continue to trend labs and transfuse as necessary per primary service Tolerating bilateral ureteral stents with minimal bother Velasquez patent and draining light mckeon red urine, which is expected after tumor resection and stents in place Maintain Velasquez catheter for approximately 1 week Pathology pending from resection of prostate mass and bladder tumor Will need oncology involvement, follows with [facility] oncology If creatinine is not improving with ureteral stents in place, then he may require percutaneous nephrostomy tubes Patient reports he follows with [facility] urology, Dr. Isaías Novak Will arrange short-term f/u with Dr. Chaudhari for catheter removal and pathology review, then he can continue f/u with Dr. Novak Continue supportive care and medical management per hospital medicine service will sign off, please contact our service with any additional questions or concerns Admission and Anticipated Discharge Date Admission Date: February 15, 2024 Subjective Patient seen and examined at bedside this morning No acute issues overnight Denies flank pain Velasquez patent and draining mckeon red urine No fever, chills, nausea or vomiting Review of Systems Constitutional: as per Subjective / HPI Genitourinary: + as per Subjective / HPI Physical Exam Constitutional: + thin; no acute distress Respiratory: normal respiratory effort; no respiratory distress and no labored breathing Gastrointestinal (Abdomen): Inspection/Auscultation: abdomen normal to inspection Musculoskeletal: Head/Neck/Chest: normocephalic Neurologic: moves all extremities and awake Psychiatric: Orientation: alert and oriented x 3 Results & Data Vital Signs (Past 12 Hours) Vital Signs Temp Pulse Pulse Resp BP BP Pulse Ox 02/19/24 07:37 37.0 C 85 18 117/73 97 02/19/24 07:18 84 02/19/24 03:27 36.8 C 84 16 128/66 95 02/18/24 23:45 36.8 C 108 H 16 126/78 98 02/18/24 23:20 83 02/18/24 22:45 36.9 C 84 16 122/76 97 02/18/24 22:05 117 H 02/18/24 21:46 02/18/24 21:45 37.2 C 114 H 18 129/80 96 02/18/24 20:45 36.7 C 102 H 18 135/80 97 O2 Del Method O2 Flow Rate 02/19/24 07:37 Room Air 02/19/24 07:18 02/19/24 03:27 Nasal Cannula 2 02/18/24 23:45 Nasal Cannula 2 02/18/24 23:20 02/18/24 22:45 Nasal Cannula 2 02/18/24 22:05 02/18/24 21:46 Nasal Cannula 2 02/18/24 21:45 Nasal Cannula 2 02/18/24 20:45 Nasal Cannula 2 PG Care Time/CCT Total # of Minutes Spent Total Time Spent with Patient: Total time spent is greater than 50% in coordination of care (as documented) at patient's floor/unit and/or counseling patient: Coding Level of Care Code 06014 SUB INP/OBS CARE 10/25MIN Diagnoses Bilateral hydronephrosis N13.30 Prostate cancer metastatic to bone C61; C79.51
--- NOTE | 2024-02-19 13:52 | Nephrology Progress Note ---
Date of Service February 19, 2024 Assessment & Plan (1) Acute renal failure superimposed on stage 3 chronic kidney disease: Plan: 63-year-old male with PMH of metastatic prostate cancer on chemotherapy, type 2 diabetes, PAD, HFrEF (EF 48% improved), hypertension, CKD 3, history of CVA, tobacco use disorder and other medical problems listed below who was directed from heme-onc clinic due to worsening anemia and renal function since outpatient labs CARLOS on CKD, at least in part obstructive +/- role for pluvicto causing prerenal/ischemic ATN. His baseline Scr is in low 1.0's, pluvicto Can cause Carols , electrolyte abnormalities and Anemia. This has already being withheld.His oral inake has also been poor over the last few months. -hold IVF -His renal functions may not return to the previous baseline. - cont to hold Jardiance and Entresto - monitor sNa on tramadol current dose -encourage po fluids -Transfuse to keep Hb > 7.0 - Maintain MAP> 65 - Daily BMP , I/O (2) Acute on chronic anemia: Plan: As above - Multifactorial-- Prostate cancer, Chemotheray. CKD, Nutritional - Transfuse to keep Hb >7. - As per hea/ Onco (3) Abnormal blood electrolyte level: Plan: -hypocalcemia and mild hyperchloremia; caused by Chemotherapy. CKD, Nutritional, Xgeva. calcium dropped some today -Replete as necessary - increased calcitriol to 0.5 mcg daily - Continue on Calcium and VD replacement but upped calcium to 1500 mg tid -check PTH in am and iCa along w/ mag, phos. Admission and Anticipated Discharge Date Admission Date: February 15, 2024 Subjective s/p /20 large bladder tumor resection/ TURBT; denies worse pain, n/v, sob Review of Systems 2 Review of Systems: All systems reviewed & are unremarkable except as noted in Subjective Physical Exam 2 Constitutional: well developed, + thin and cooperative; no acute distress Eyes: EOM intact bilaterally ENMT: Ears: no external ear abnormality Nose: no external nose abnormality Mouth: + dry oral mucous membranes Neck: no nuchal rigidity Respiratory: normal respiratory effort Auscultation: + diminished lung sounds Cardiovascular: RRR, no murmur, no edema Gastrointestinal (Abdomen): Inspection/Auscultation: normal bowel sounds P ercussion/Palpation: abdomen soft; abdomen nontender Musculoskeletal: Extremities: strength 5/5 throughout Skin: no rashes, warm and dry Genitourinary: rain w/ gross blood, minimal uop Results & Data Vital Signs (Past 12 Hours) Vital Signs Temp Pulse Pulse Resp BP BP Pulse Ox 02/19/24 11:43 36.9 C 80 18 122/69 95 02/19/24 11:13 36.8 C 84 18 122/70 98 02/19/24 10:24 02/19/24 10:13 36.5 C 78 18 117/70 96 02/19/24 09:43 36.6 C 78 18 119/73 98 02/19/24 09:28 36.9 C 78 18 130/76 96 02/19/24 09:10 36.5 C 83 18 122/72 98 02/19/24 07:37 37.0 C 85 18 117/73 97 02/19/24 07:18 84 02/19/24 03:27 36.8 C 84 16 128/66 95 O2 Del Method O2 Flow Rate 02/19/24 11:43 02/19/24 11:13 02/19/24 10:24 Room Air 02/19/24 10:13 02/19/24 09:43 02/19/24 09:28 02/19/24 09:10 02/19/24 07:37 Room Air 02/19/24 07:18 02/19/24 03:27 Nasal Cannula 2 Laboratory Results 02/19/24 06:26 02/19/24 06:26
[2024-02-19] MEDS: CALCIUM CARBONATE 500 MG CHEWABLE TAB PO SCH (16:08)
--- NOTE | 2024-02-19 16:32 | Hospitalist Progress Note ---
Date of Service February 19, 2024 Assessment & Plan (1) Acute on chronic anemia: (2) Pancytopenia due to chemotherapy: Plan: Patient is 63 yr male with H/O Metastatic prostate cancer on chemotherapy, type 2 diabetes, PAD, HFrEF, hypertension, CKD 3, history of CVA, tobacco use disorder and other medical problems listed below who was directed from heme-onc clinic due to worsening anemia and renal function since outpatient labs yesterday. Symptomatic anemia Pancytopenia--POA Likely secondary to chemotherapy/Bone marrow suppression, B12 and Iron deficiency In setting of ongoing prostate cancer chemotherapy Currently hematuria contributing as well --S/P 2 units PRBCs Monitor CBC Needs follow-up with oncology on discharge Hb 4.4 today Platelet count stable Started o Iron and Vitamin B12 supplements Monitor CBC Given CARLA, symptomatic anemia will transfuse 1 unit PRBCs today Hypocalcemia Chronic Continue calcium, vitamin D supplements Added calcitriol as recommended by nephrology Monitor calcium levels Ca Levels 7.1 today Calcitriol increased to 0.5 mcg daily Obstructive uropathy--POA B/L hydroureteronephrosis In setting of BPH, metastatic prostate cancer --CT ABD:Right greater left bilateral hydroureteronephrosis without obstructing ureteral calculus or lesion identified. Prostamegaly with evidence of chronic outlet obstruction. Soft tissue density within the base of the urinary bladder measures up to 4.8 cm. This may be secondary to prostate parenchyma/mass versus a urothelial lesion and could be evaluated with cystoscopy. Progressive lymphatic and osseous metastatic disease. Small pleural effusions. No bowel obstruction or pneumoperitoneum. --Renal USD:Prostatomegaly with evidence of chronic bladder outlet obstruction. Right greater than left hydronephrosis may be secondary to the bladder outlet obstruction. Atrophic left kidney redemonstrated. --S/P Cystoscopy with meatal/Urethral Dilation, Bilateral Retrograde Pyelogram, Bilateral Stent Placement. Transurethral Resection of Prostate Mass, Transurethral Resection Bladder Tumor, Large by on 02/18/24 -- Place Velasquez catheter to minimize retention Appreciate Urology Input Given hematuria, will hold Plavix If renal function not improving, patient may need percutaneous nephrostomy tube placement Needs follow-up with urology on discharge NSVT PVCs Monitor and replace electrolytes as as needed Started on metoprolol 12.5 mg twice a day (3) Prostate cancer metastatic to bone: Plan: Ongoing cancer treatment, previously on chemo (discontinued in November), received first dose of Pluvicto treatment at [facility] [place], received for the first time 01/03/22 but subsequent treatment was postponed due to anemia Reports chronic bone and Pelvic Pain Pain control Needs follow-up with oncology on discharge (4) Acute renal failure superimposed on stage 3 chronic kidney disease: Plan: Baseline Cr~ 1.3 Renal toxicity listed as side effect from Plucivto Obstructive uropathy, atrophic kidney contributing as well Hold Entresto, Jardiance Received IV fluids Monitor renal function Avoid nephrotoxic agents as able Cr 2.0 today Appreciate nephrology input (5) Elevated troponin: Plan: Likely demand ischemia in setting of anemia Denies chest pain EKG reviewed - sinus tachycardia with occasional PVCs, otherwise normal PVCs Monitor and replace electrolytes as needed (6) HFrEF (heart failure with reduced ejection fraction): Plan: ECHO from Aug 2023 shows EF 48% (improved from previous), no valvular abnormalities Continue Entresto, statin (7) DM2 (diabetes mellitus, type 2): Plan: HbA1c 6.3 in November 2023 Hold home agents Continue insulin while hospitalized Monitor BGs (8) PAD (peripheral artery disease): Plan: Continue aspirin, statin Resume Plavix as able May need to hold aspirin as well if continues to have hematuria (9) History of CVA (cerebrovascular accident): Plan: Continue aspirin Statin Resume Plavix as able (10) BPH with obstruction/lower urinary tract symptoms: Plan: Continue alfuzosin, bladder scan PRN Tobacco use disorder 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 DVT Px: SCDs Re: Anemia, thrombocytopenia, Hematuria Code status: FULL CODE Admission and Anticipated Discharge Date Admission Date: February 15, 2024 Subjective Patient seen and examined at bedside this morning Noted hematuria Denies any significant Pelvic pain today Discussed with family at bedside Denies any chest pain, dyspnea, dizziness, nausea, vomiting Review of Systems Review of Systems: All systems reviewed & are unremarkable except as noted in Subjective Physical Exam Physical Exam: Physical Exam: Vitals signs as noted above General Appearance:Thin, frail, chronic ill appearing, no apparent distress Head: normocephalic, Atraumatic Eyes: normal inspection, EOMI Neck: supple, Trachea midline Respiratory/Chest: Normal breath sounds, CTA, No accessory muscle use Cardiovascular: S1, S2, No murmur Abdomen/GI:Soft, Non tender, Bowel sounds present Extremities/Musculoskeletal:normal inspection, no edema Neurologic/Psych:AAOX3, grossly no focal neurological deficits Skin: normal color, warm Results & Data Results & Data Vital Signs (Past 12 Hours) Vital Signs Temp Pulse Pulse Resp BP BP Pulse Ox 02/19/24 15:48 92 H 02/19/24 11:43 36.9 C 80 18 122/69 95 02/19/24 11:13 36.8 C 84 18 122/70 98 02/19/24 10:24 02/19/24 10:13 36.5 C 78 18 117/70 96 02/19/24 09:43 36.6 C 78 18 119/73 98 02/19/24 09:28 36.9 C 78 18 130/76 96 02/19/24 09:10 36.5 C 83 18 122/72 98 02/19/24 07:37 37.0 C 85 18 117/73 97 02/19/24 07:18 84 O2 Del Method 02/19/24 15:48 02/19/24 11:43 02/19/24 11:13 02/19/24 10:24 Room Air 02/19/24 10:13 02/19/24 09:43 02/19/24 09:28 02/19/24 09:10 02/19/24 07:37 Room Air 02/19/24 07:18 Laboratory Results Short CBC 02/19/24 Range/Units 06:26 Hgb 7.4 L (14.0-18.0) g/dl Hct 23.6 L (42.0-52.0) % BMP 02/19/24 06:26 Sodium 143 Potassium 3.9 Chloride 114 H Carbon Dioxide 22 BUN 17 Creatinine 2.00 H Glucose 132 H Calcium 7.1 L
--- NOTE | 2024-02-20 07:19 | Nephrology Progress Note ---
Date of Service February 20, 2024 Assessment & Plan (1) Acute renal failure superimposed on stage 3 chronic kidney disease: Plan: 63-year-old male with PMH of metastatic prostate cancer on chemotherapy, type 2 diabetes, PAD, HFrEF (EF 48% improved), hypertension, CKD 3, history of CVA, tobacco use disorder and other medical problems listed below who was directed from heme-onc clinic due to worsening anemia and renal function since outpatient labs improving CARLOS on CKD, at least in part obstructive +/- role for pluvicto causing prerenal/ischemic ATN. His baseline Scr is in low 1.0's, pluvicto Can cause Carlos , electrolyte abnormalities and Anemia. This has already being withheld.His oral inake has also been poor over the last few months. -hold IVF -His renal function may not return to the previous baseline but is somewhat improved now - cont to hold Jardiance and Entresto > low threshold for CXR given HFrEF (48% EF Aug 2023) and pRBC w/o lasix yesterday and 4.8L + on the admission - monitor sNa on tramadol current dose -encourage po fluids -Transfuse to keep Hb > 7.0 - Maintain MAP> 65 - Daily BMP , I/O (2) Acute on chronic anemia: Plan: As above - Multifactorial-- Prostate cancer, Chemotheray. CKD, Nutritional - Transfuse to keep Hb >7. s/p 2 units pRBC 02/14; then 1 on 02/18 w/ appropriate response; await reading in AM - As per heme/ Onco (3) Abnormal blood electrolyte level: Plan: -hypocalcemia and mild hyperchloremia; caused by Chemotherapy. CKD, Nutritional, Xgeva. calcium dropped some today again; PTH appropriately elevated, phos on lower side, mag ok -Replete as necessary - increased calcitriol to 0.5 mcg daily - Continue on Calcium and VD replacement but upped calcium to 1500 mg tid - had K replacemetn today - agree w/ stopping renal diet Admission and Anticipated Discharge Date Admission Date: February 15, 2024 Subjective voiding mostly gross blood > about 300-400 cc in rain bag at early PM eval. no n/v, no sob or orthopnea; no longer on renal diet; got one unit pRBC yesterday Review of Systems 2 Review of Systems: All systems reviewed & are unremarkable except as noted in Subjective Physical Exam 2 Constitutional: well developed, + thin and cooperative; no acute distress Eyes: EOM intact bilaterally ENMT: Ears: no external ear abnormality Nose: no external nose abnormality Mouth: + dry oral mucous membranes Neck: no nuchal rigidity Respiratory: normal respiratory effort and + cough (new, dry?) A uscultation: + diminished lung sounds Cardiovascular: RRR, no murmur, no edema Gastrointestinal (Abdomen): Inspection/Auscultation: normal bowel sounds P ercussion/Palpation: abdomen soft; abdomen nontender Musculoskeletal: Extremities: strength 5/5 throughout Skin: no rashes, warm and dry Results & Data Vital Signs (Past 12 Hours) Vital Signs Temp Pulse Pulse Resp BP Pulse Ox O2 Del Method 02/20/24 04:05 36.9 C 91 H 20 121/79 97 Room Air 02/20/24 00:20 87 02/19/24 23:57 36.8 C 80 20 111/70 97 Room Air Laboratory Results 02/20/24 07:35 02/20/24 07:35
[2024-02-20 08:11] LABS: Hematocrit (blood only) 26.8 % (42.0-52.0); Hemoglobin 8.6 g/dl (14.0-18.0); Mean Corpuscular Hemoglobin 29.5 pg (25.0-34.0); Mean Corpuscular Hgb Conc 32.1 g/dL (32.0-36.0); Mean Corpuscular Volume 91.8 fL (80.0-100.0); Nucleated RBC # (auto) 0.03 K/uL (0.00-0.12); Nucleated RBC % (auto) 0.7 %; Platelet Count 105 K/uL (130-400); RDW Coefficient of Variation 17.8 % (11.5-14.5); RDW Standard Deviation 60.1 fL (36.4-46.3); Red Blood Count 2.92 M/uL (4.70-6.10); White Blood Count 4.43 K/ul (4.8-10.8)
[2024-02-20] MEDS: CALCITRIOL 0.25 MCG CAPSULE PO SCH (08:43)
[2024-02-20 08:46] LABS: BUN Creatinine Ratio 9.1 (10-20); Creatinine Clr Calc Pharmacy 36.7 ml/min; Est GFR (African American) 46.7 ml/min; Est GFR (Non-African American) 40.3 ml/min; Magnesium 1.9 mg/dl (1.7-2.4); Potassium 3.4 mmol/L (3.5-5.1)
[2024-02-20] MEDS: POTASSIUM CHLORIDE CRTAB 20 MEQ TABCR PO STA (09:57)
[2024-02-20] MEDS: POT PHOSPHATE MONOBASIC W/ SOD TAB PO SCH (09:58)
[2024-02-20] MEDS: POLYETHYLENE (MIRALAX) 17 GM PACK PO PRN (13:19)
--- NOTE | 2024-02-20 14:19 | Hospitalist Progress Note ---
Date of Service February 20, 2024 Assessment & Plan (1) Acute on chronic anemia: (2) Pancytopenia due to chemotherapy: (3) Prostate cancer metastatic to bone: (4) Acute renal failure superimposed on stage 3 chronic kidney disease: Plan: (5) Elevated troponin: (6) HFrEF (heart failure with reduced ejection fraction): (7) DM2 (diabetes mellitus, type 2): (8) PAD (peripheral artery disease): (9) History of CVA (cerebrovascular accident): Plan: (10) BPH with obstruction/lower urinary tract symptoms: Plan Ms. Chaudhari is a 63 yr male with H/O Metastatic prostate cancer on chemotherapy, type 2 diabetes, PAD, HFrEF, hypertension, CKD 3, history of CVA, tobacco use disorder and other medical problems listed below who was directed from heme-onc clinic due to worsening anemia and renal function since outpatient labs yesterday. #Symptomatic anemia, improving #Pancytopenia--POA Likely secondary to chemotherapy/Bone marrow suppression, B12 and Iron deficiency In setting of ongoing prostate cancer chemotherapy Currently hematuria contributing as well --S/P 2 units PRBCs Monitor CBC Needs follow-up with oncology on discharge Hgb stable, continue 8.6 Platelet count stable Continue Iron and Vitamin B12 supplements Monitor CBC #Hypocalcemia #Hypophosphatemia #Hypokalemia Chronic Continue calcium, vitamin D supplements Added calcitriol as recommended by nephrology Monitor calcium levels Ca Levels 7.1 today Calcitriol increased to 0.5 mcg daily Replace PO lytes #CARLA on CKDIII Baseline Cr~ 1.3 Renal toxicity listed as side effect from Plucivto Obstructive uropathy, atrophic kidney contributing as well Hold Entresto, Jardiance Received IV fluids Monitor renal function Avoid nephrotoxic agents as able Cr 2.0 today Appreciate nephrology input #Obstructive uropathy--POA #B/L hydroureteronephrosis In setting of BPH, metastatic prostate cancer --CT ABD:Right greater left bilateral hydroureteronephrosis without obstructing ureteral calculus or lesion identified. Prostamegaly with evidence of chronic outlet obstruction. Soft tissue density within the base of the urinary bladder measures up to 4.8 cm. This may be secondary to prostate parenchyma/mass versus a urothelial lesion and could be evaluated with cystoscopy. Progressive lymphatic and osseous metastatic disease. Small pleural effusions. No bowel obstruction or pneumoperitoneum. --Renal USD:Prostatomegaly with evidence of chronic bladder outlet obstruction. Right greater than left hydronephrosis may be secondary to the bladder outlet obstruction. Atrophic left kidney redemonstrated. --S/P Cystoscopy with meatal/Urethral Dilation, Bilateral Retrograde Pyelogram, Bilateral Stent Placement. Transurethral Resection of Prostate Mass, Transureth ral Resection Bladder Tumor, Large by on 02/18/24 -- Place Rain catheter to minimize retention Appreciate Urology Input Given hematuria, will hold Plavix, plan to resume if hgb remains stable If renal function not improving, patient may need percutaneous nephrostomy tube placement Needs follow-up with urology on discharge #Metastatic prostate cancer Ongoing cancer treatment, previously on chemo (discontinued in November), received first dose of Pluvicto treatment at [facility] [place], [place], received for the first time 01/03/22 but subsequent treatment was postponed due to anemia Reports chronic bone and Pelvic Pain Pain control Needs follow-up with oncology on discharge to discuss Pluvicto and CARLA #Elevated trop Likely demand ischemia in setting of anemia Denies chest pain EKG reviewed - sinus tachycardia with occasional PVCs, otherwise normal Monitor and replace electrolytes as needed #HFmrEF ECHO from Aug 2023 shows EF 48% (improved from previous), no valvular abnormalities Continue Entresto upon improvement of CARLA Continue statin #NSVT #PVCs Monitor and replace electrolytes as as needed Started on metoprolol 12.5 mg twice a day #DMTII HbA1c 6.3 in November 2023 Hold home agents Continue insulin while hospitalized Monitor BGs #PAD Continue aspirin, statin Resume Plavix as able May need to hold aspirin as well if continues to have hematuria #Prior CVA Continue aspirin Statin Resume Plavix as able #BPH Continue alfuzosin, bladder scan PRN #Tobacco use disorder Refuses nicotine patch [employer] to quit smoking DVT Px: SCDs Re: Anemia, thrombocytopenia, Hematuria Code status: FULL CODE Admission and Anticipated Discharge Date Admission Date: February 15, 2024 Subjective NAEO Reports feeling much better overall Denies any abdominal pain or discomfort Strong appetite Physical Exam Constitutional: WD/WN, vitals as above Respiratory: normal respiratory effort, lungs clear to auscultation Cardiovascular: RRR, no murmur, no edema Gastrointestinal (Abdomen): rain with hematuria Results & Data Results & Data Vital Signs (Past 12 Hours) Vital Signs Temp Pulse Pulse Resp BP BP Pulse Ox 02/20/24 10:53 36.6 C 85 13 129/74 98 02/20/24 07:43 36.5 C 91 H 14 143/80 H 96 02/20/24 07:17 88 02/20/24 04:05 36.9 C 91 H 20 121/79 97 O2 Del Method 02/20/24 10:53 Room Air 02/20/24 07:43 Room Air 02/20/24 07:17 02/20/24 04:05 Room Air Laboratory Results Short CBC 02/20/24 Range/Units 07:35 WBC 4.43 L (4.8-10.8) K/ul Hgb 8.6 L (14.0-18.0) g/dl Hct 26.8 L (42.0-52.0) % Plt Count 105 L (130-400) K/uL BMP 02/20/24 07:35 Sodium 141 Potassium 3.4 L Chloride 111 H Carbon Dioxide 20 L BUN 16 Creatinine 1.75 H Glucose 136 H Calcium 7.0 L Medications Administered Home Medications Medication Instructions Recorded Confirmed Last Taken atorvastatin 80 mg tablet 80 mg PO QPM 04/23/19 02/15/24 02/14/24 alfuzosin 10 mg tablet,extended 10 mg PO QAM 05/31/21 02/15/24 02/15/24 release 24 hr (Uroxatral) empagliflozin 25 mg tablet 25 mg PO QAM 05/31/21 02/15/24 02/15/24 (Jardiance) aspirin 81 mg tablet,delayed 81 mg PO QAM #30 tabs 06/03/21 02/15/24 02/15/24 release acetaminophen 500 mg tablet 500 - 1,000 mg PO Q6H PRN Pain 12/06/22 02/15/24 Unknown (Tylenol Extra Strength) clopidogrel 75 mg tablet 75 mg PO QAM 12/06/22 02/15/24 02/15/24 denosumab 120 mg/1.7 mL (70 mg/mL) 120 mg subcut MONTHLY 12/06/22 02/15/24 2 Months Ago subcutaneous solution (Xgeva) ~12/16/23 linagliptin 5 mg tablet (Tradjenta) 5 mg PO QAM 12/06/22 02/15/24 02/15/24 sacubitril 24 mg-valsartan 26 mg 1 tab PO BID 12/06/22 02/15/24 02/15/24 tablet (Entresto) tramadol 50 mg tablet 300 mg PO BID pain 08/01/23 02/15/24 02/14/24 morphine 15 mg immediate release 15 mg PO BID PRN Pain 01/11/24 02/15/24 02/14/24 tablet ondansetron HCl 8 mg tablet 8 mg PO DIRECTED PRN Nausea 01/11/24 02/15/24 Unknown potassium phosphate, monobasic 500 500 mg PO BID 01/11/24 02/15/24 02/15/24 mg soluble tablet (K-Phos Original) prochlorperazine maleate 10 mg 10 mg PO DIRECTED PRN Nausea 01/11/24 02/15/24 Unknown tablet calcium carbonate 600 mg-vitamin 3 tab PO QAM 02/15/24 02/15/24 02/15/24 D3 20 mcg (800 unit) chewable tablet (Caltrate 600 plus D) morphine 15 mg tablet,extended 15 mg PO DAILY PRN Pain 02/15/24 02/15/24 02/14/24 release Active Medications Generic Name Dose Route Start Last Admin Trade Name Freq PRN Reason Stop Dose Admin Acetaminophen 650 mg 02/15/24 23:57 02/20/24 18:20 Acetaminophen 325 Mg Tab PO 03/16/24 23:56 650 mg Q4H PRN Administration Pain or Fever Aspirin 81 mg 02/16/24 09:00 02/20/24 08:43 Aspirin 81 Mg Ectab PO 03/17/24 08:59 81 mg QAM GENIA Administration Atorvastatin Calcium 80 mg 02/15/24 21:00 02/19/24 21:01 Atorvastatin 40 Mg Tab PO 03/16/24 20:59 80 mg QPM GENIA Administration Calcitriol 0.5 mcg 02/20/24 09:00 02/20/24 08:43 Calcitriol 0.25 Mcg Capsule PO 03/21/24 08:59 0.5 mcg QAM GENIA Administration Calcium Carbonate 1,500 mg 02/19/24 14:00 02/20/24 13:19 Calcium Carbonate 500 Mg Chewable Tab PO 03/20/24 13:59 1,500 mg TID GENIA Administration Clopidogrel Bisulfate 75 mg 02/16/24 09:00 02/19/24 08:34 Clopidogrel Bisulfate 75 Mg Tab PO 03/17/24 08:59 75 mg QAM GENIA Administration Cyanocobalamin 1,000 mcg 02/18/24 09:00 02/20/24 08:44 Cyanocobalamin (B-12) 500 Mcg Tablet PO 03/19/24 08:59 1,000 mcg QAM GENIA Administration Ferrous Sulfate 325 mg 02/17/24 09:30 02/20/24 08:44 Ferrous Sulfate 325 Mg Tab PO 03/18/24 09:29 325 mg QAM GENIA Administration Insulin Aspart 0 units 02/15/24 23:57 02/20/24 18:18 Insulin Aspart Per Unit Charge SC 03/16/24 23:56 2 units ACHS GENIA Administration Metoprolol Tartrate 12.5 mg 02/17/24 21:00 02/20/24 08:42 Metoprolol Tartrate 25 Mg Tab PO 03/18/24 20:59 12.5 mg BID GENIA Administration Morphine Sulfate 15 mg 02/15/24 16:56 02/19/24 01:46 Morphine Sulfate Ir 15 Mg Tab (Immediate Release) PO 02/29/24 16:55 15 mg BID PRN Administration BREAKTHROUGH PAIN Polyethylene Glycol 17 gm 02/15/24 23:57 02/20/24 13:19 Polyethylene (Miralax) 17 Gm Pack PO 03/16/24 23:56 17 gm DAILY PRN Administration Constipation Potassium Phosphate 2 tab 02/20/24 09:00 02/20/24 18:15 Pot Phosphate Monobasic W/ Sod Tab PO 03/21/24 08:59 2 tab QID GENIA Administration Sacubitril/Valsartan 1 tab 02/15/24 21:00 02/17/24 08:15 Valsartan/Sacubitril 26/24mg Tab PO 03/16/24 20:59 1 tab BID GENIA Administration Tamsulosin HCl 0.4 mg 02/16/24 09:00 02/20/24 08:44 Tamsulosin Hcl 0.4 Mg Cap PO 03/17/24 08:59 0.4 mg QAM GENIA Administration Protocol Tramadol HCl 150 mg 02/15/24 21:00 02/20/24 08:41 Tramadol Hcl 50 Mg Tablet PO 03/16/24 20:59 150 mg BID GENIA Administration
[2024-02-20] MEDS: ACETAMINOPHEN 325 MG TAB PO PRN (18:20)
[2024-02-21 07:21] LABS: Hematocrit (blood only) 23.5 % (42.0-52.0); Hemoglobin 7.6 g/dl (14.0-18.0); Mean Corpuscular Hemoglobin 29.8 pg (25.0-34.0); Mean Corpuscular Hgb Conc 32.3 g/dL (32.0-36.0); Mean Corpuscular Volume 92.2 fL (80.0-100.0); Mean Platelet Volume 9.6 fL (9.4-12.4); Nucleated RBC # (auto) 0.02 K/uL (0.00-0.12); Nucleated RBC % (auto) 0.4 %; Platelet Count 113 K/uL (130-400); RDW Coefficient of Variation 17.9 % (11.5-14.5); RDW Standard Deviation 59.9 fL (36.4-46.3); Red Blood Count 2.55 M/uL (4.70-6.10); White Blood Count 4.57 K/ul (4.8-10.8)
[2024-02-21 07:33] LABS: BUN Creatinine Ratio 11.7 (10-20); Calcium 6.1 mg/dl (8.6-10.3); Est GFR (African American) 50.8 ml/min; Est GFR (Non-African American) 43.9 ml/min; Magnesium 1.8 mg/dl (1.7-2.4); Phosphorus 3.9 mg/dl (2.5-4.9); Potassium 3.6 mmol/L (3.5-5.1)
--- NOTE | 2024-02-21 08:43 | Nephrology Progress Note ---
Date of Service February 21, 2024 Assessment & Plan (1) Acute renal failure superimposed on stage 3 chronic kidney disease: Plan: 63-year-old male with PMH of metastatic prostate cancer on chemotherapy, type 2 diabetes, PAD, HFrEF (EF 48% improved), hypertension, CKD 3, history of CVA, tobacco use disorder and other medical problems was directed for admission from heme-onc clinic due to worsening anemia and renal function since outpatient labs Further improving CARLOS on CKD, at least in part obstructive +/- role for pluvicto causing prerenal/ischemic ATN. His baseline Scr is in low 1.0's, pluvicto Can cause Carlos , electrolyte abnormalities and Anemia. This has already being withheld.His oral inake has also been poor over the last few months. -hold IVF -His renal function may not return to the previous baseline but is somewhat improved now - cont to hold Jardiance and Entresto > low threshold for CXR given HFrEF (48% EF Aug 2023) and pRBC w/o lasix yesterday and now 4L + on the admission - monitor sNa on tramadol current dose -encourage po fluids -Transfuse to keep Hb > 7.0 - Maintain MAP> 65 - Daily BMP , I/O NEPHRO D/C RECS -Hold Jardiance and Entresto at hospital discharge Defer to primary service on outpatient pain regimen but metabolites of morphine can accumulate in renal failure and would be cautious with using this -Would also be cautious about resuming Uroxatrol until renal function within 0.3 of baseline creatinine consistently -continue nsaid avoidance now and after d/c ->needs bmp, cbc at PCP f/u visit w/ in one week of d/c -needs hospital d/c appt WITH ME in 2-3 wks at [facility] or [facility] w/ renal nurse to order bmp, acr, prot/creat, UACM, PTH, 25 OHD, cbc to be done in the 3-5 days before appt (2) Acute on chronic anemia: Plan: As above - Multifactorial-- Prostate cancer, Chemotheray. CKD, Nutritional - Transfuse to keep Hb >7. s/p 2 units pRBC 02/14; then 1 on 02/18 w/ appropriate response; await reading in AM - As per heme/ Onco (3) Abnormal blood electrolyte level: Plan: -hypocalcemia and mild hyperchloremia; caused by Chemotherapy. CKD, Nutritional, Xgeva. calcium dropped some today again; PTH appropriately elevated, phos on lower side, mag ok -Replete as necessary - increased calcitriol to 0.5 mcg daily - Continue on Calcium and VD replacement but upped calcium to 1500 mg tid - had K replacemetn today - agree w/ stopping renal diet Admission and Anticipated Discharge Date Admission Date: February 15, 2024 Subjective no sob, stable chronic cough; no orthopnea; no n/v; ongoing gross hematuria not unexpected; some meatal pain. at bedside Review of Systems 2 Review of Systems: All systems reviewed & are unremarkable except as noted in Subjective Physical Exam 2 Constitutional: well developed, + thin and cooperative; no acute distress Eyes: EOM intact bilaterally ENMT: Ears: no external ear abnormality Nose: no external nose abnormality Mouth: + dry oral mucous membranes Neck: no nuchal rigidity Respiratory: normal respiratory effort and + cough (new, dry?) A uscultation: + diminished lung sounds Cardiovascular: RRR, no murmur, no edema Gastrointestinal (Abdomen): Inspection/Auscultation: normal bowel sounds P ercussion/Palpation: abdomen soft; abdomen nontender Musculoskeletal: Extremities: strength 5/5 throughout Skin: no rashes, warm and dry Results & Data Vital Signs (Past 12 Hours) Vital Signs Temp Pulse Pulse Resp BP Pulse Ox O2 Del Method 02/21/24 07:58 36.6 C 85 18 135/74 99 Room Air 02/21/24 07:03 85 02/21/24 04:22 36.6 C 82 20 122/77 96 Room Air 02/20/24 23:31 36.7 C 73 20 117/72 98 Room Air 02/20/24 22:46 78 Laboratory Results 02/21/24 06:10 02/21/24 06:10
--- NOTE | 2024-02-21 17:32 | Hospitalist Progress Note ---
Date of Service February 21, 2024 Assessment & Plan (1) Acute on chronic anemia: (2) Pancytopenia due to chemotherapy: (3) Prostate cancer metastatic to bone: (4) Acute renal failure superimposed on stage 3 chronic kidney disease: Plan: (5) Elevated troponin: (6) HFrEF (heart failure with reduced ejection fraction): (7) DM2 (diabetes mellitus, type 2): (8) PAD (peripheral artery disease): (9) History of CVA (cerebrovascular accident): Plan: (10) BPH with obstruction/lower urinary tract symptoms: Plan Ms. Chaudhari is a 63 yr male with H/O Metastatic prostate cancer on chemotherapy, type 2 diabetes, PAD, HFrEF, hypertension, CKD 3, history of CVA, tobacco use disorder and other medical problems listed below who was directed from heme-onc clinic due to worsening anemia and renal function since outpatient labs. Patient underwent TURP on 02/17 with improvement of renal function, course complicated by post-operative hematuria. #Symptomatic anemia. #Pancytopenia--POA Likely secondary to chemotherapy/Bone marrow suppression, B12 and Iron deficiency In setting of ongoing prostate cancer chemotherapy Currently hematuria contributing as well --S/P 2 units PRBCs on admission, 1 UPRBC 02/18 post operatively Needs follow-up with oncology on discharge Platelet count stable Continue Iron and Vitamin B12 supplements Monitor CBC #Hypocalcemia #Hypophosphatemia #Hypokalemia Chronic Continue calcium, vitamin D supplements Added calcitriol as recommended by nephrology Monitor calcium levels Ca Levels 7.1 today Calcitriol increased to 0.5 mcg daily Replace PO lytes #CARLA on CKDIII Baseline Cr~ 1.3 Renal toxicity listed as side effect from Plucivto Obstructive uropathy, atrophic kidney contributing as well Hold Entresto, Jardiance Received IV fluids Monitor renal function Avoid nephrotoxic agents as able Cr 2.0 today Appreciate nephrology input #Obstructive uropathy--POA #B/L hydroureteronephrosis In setting of BPH, metastatic prostate cancer --CT ABD:Right greater left bilateral hydroureteronephrosis without obstructing ureteral calculus or lesion identified. Prostamegaly with evidence of chronic ou tlet obstruction. Soft tissue density within the base of the urinary bladder measures up to 4.8 cm. This may be secondary to prostate parenchyma/mass versus a urothelial lesion and could be evaluated with cystoscopy. Progressive lymphatic and osseous metastatic disease. Small pleural effusions. No bowel obstruction or pneumoperitoneum. --Renal USD:Prostatomegaly with evidence of chronic bladder outlet obstruction. Right greater than left hydronephrosis may be secondary to the bladder outlet obstruction. Atrophic left kidney redemonstrated. --S/P Cystoscopy with meatal/Urethral Dilation, Bilateral Retrograde Pyelogram, Bilateral Stent Placement. Transurethral Resection of Prostate Mass, Transurethral Resection Bladder Tumor, Large by on 02/18/24 -- Place Rain catheter to minimize retention Appreciate Urology Input Given hematuria, will hold Plavix, plan to resume if hgb remains stable If renal function not improving, patient may need percutaneous nephrostomy tube placement Needs follow-up with urology on discharge #Metastatic prostate cancer Ongoing cancer treatment, previously on chemo (discontinued in November), received first dose of Pluvicto treatment at [facility] [place] received for the first time 01/03/22 but subsequent treatment was postponed due to anemia Reports chronic bone and Pelvic Pain Pain control Needs follow-up with oncology on discharge to discuss Pluvicto and CARLA #Elevated trop Likely demand ischemia in setting of anemia Denies chest pain EKG reviewed - sinus tachycardia with occasional PVCs, otherwise normal Monitor and replace electrolytes as needed #HFmrEF ECHO from Aug 2023 shows EF 48% (improved from previous), no valvular abnormalities Continue Entresto upon improvement of CARLA Continue statin #NSVT #PVCs Monitor and replace electrolytes as as needed Started on metoprolol 12.5 mg twice a day #DMTII HbA1c 6.3 in November 2023 Hold home agents Continue insulin while hospitalized Monitor BGs #PAD Continue aspirin, statin Resume Plavix as able May need to hold aspirin as well if continues to have hematuria #Prior CVA Continue aspirin Statin Resume Plavix as able #BPH Continue alfuzosin, bladder scan PRN #Tobacco use disorder Refuses nicotine patch [employer] to quit smoking DVT Px: SCDs Re: Anemia, thrombocytopenia, Hematuria Code status: FULL CODE Admission and Anticipated Discharge Date Admission Date: February 15, 2024 Subjective Patient reports feeling well overall, denies any new concerns Understands reason for staying is anemia and to assess need for transfusion Aggreable for discussion of coordinating OP transfusion in future Physical Exam Constitutional: WD/WN, vitals as above Respiratory: normal respiratory effort, lungs clear to auscultation Cardiovascular: RRR, no murmur, no edema Gastrointestinal (Abdomen): normal bowel sounds, soft, nontender, no hepatosplenomegaly rain still with gross hematuria Results & Data Results & Data Vital Signs (Past 12 Hours) Vital Signs Temp Pulse Pulse Resp BP Pulse Ox O2 Del Method 02/21/24 15:38 36.6 C 86 20 121/76 98 Room Air 02/21/24 15:22 82 02/21/24 11:14 36.7 C 78 20 119/66 100 Room Air 02/21/24 07:58 36.6 C 85 18 135/74 99 Room Air 02/21/24 07:03 85 Laboratory Results Short CBC 02/21/24 Range/Units 06:10 WBC 4.57 L (4.8-10.8) K/ul Hgb 7.6 L (14.0-18.0) g/dl Hct 23.5 L (42.0-52.0) % Plt Count 113 L (130-400) K/uL BMP 02/21/24 06:10 Sodium 140 Potassium 3.6 Chloride 109 H Carbon Dioxide 23 BUN 19 Creatinine 1.63 H Glucose 112 H Calcium 6.1 L Medications Administered Home Medications Medication Instructions Recorded Confirmed Last Taken atorvastatin 80 mg tablet 80 mg PO QPM 04/23/19 02/15/24 02/14/24 alfuzosin 10 mg tablet,extended 10 mg PO QAM 05/31/21 02/15/24 02/15/24 release 24 hr (Uroxatral) empagliflozin 25 mg tablet 25 mg PO QAM 05/31/21 02/15/24 02/15/24 (Jardiance) aspirin 81 mg tablet,delayed 81 mg PO QAM #30 tabs 06/03/21 02/15/24 02/15/24 release acetaminophen 500 mg tablet 500 - 1,000 mg PO Q6H PRN Pain 12/06/22 02/15/24 Unknown (Tylenol Extra Strength) clopidogrel 75 mg tablet 75 mg PO QAM 12/06/22 02/15/24 02/15/24 denosumab 120 mg/1.7 mL (70 mg/mL) 120 mg subcut MONTHLY 12/06/22 02/15/24 2 Months Ago subcutaneous solution (Xgeva) ~12/16/23 linagliptin 5 mg tablet (Tradjenta) 5 mg PO QAM 12/06/22 02/15/24 02/15/24 sacubitril 24 mg-valsartan 26 mg 1 tab PO BID 12/06/22 02/15/24 02/15/24 tablet (Entresto) tramadol 50 mg tablet 300 mg PO BID pain 08/01/23 02/15/24 02/14/24 morphine 15 mg immediate release 15 mg PO BID PRN Pain 01/11/24 02/15/24 02/14/24 tablet ondansetron HCl 8 mg tablet 8 mg PO DIRECTED PRN Nausea 01/11/24 02/15/24 Unknown potassium phosphate, monobasic 500 500 mg PO BID 01/11/24 02/15/24 02/15/24 mg soluble tablet (K-Phos Original) prochlorperazine maleate 10 mg 10 mg PO DIRECTED PRN Nausea 01/11/24 02/15/24 Unknown tablet calcium carbonate 600 mg-vitamin 3 tab PO QAM 02/15/24 02/15/24 02/15/24 D3 20 mcg (800 unit) chewable tablet (Caltrate 600 plus D) morphine 15 mg tablet,extended 15 mg PO DAILY PRN Pain 02/15/24 02/15/24 02/14/24 release Active Medications Generic Name Dose Route Start Last Admin Trade Name José Antonioq PRN Reason Stop Dose Admin Acetaminophen 650 mg 02/15/24 23:57 02/21/24 13:25 Acetaminophen 325 Mg Tab PO 03/16/24 23:56 650 mg Q4H PRN Administration Pain or Fever Aspirin 81 mg 02/16/24 09:00 02/21/24 08:50 Aspirin 81 Mg Ectab PO 03/17/24 08:59 81 mg QAM GENIA Administration Atorvastatin Calcium 80 mg 02/15/24 21:00 02/20/24 20:45 Atorvastatin 40 Mg Tab PO 03/16/24 20:59 80 mg QPM GENIA Administration Calcitriol 0.5 mcg 02/20/24 09:00 02/21/24 08:50 Calcitriol 0.25 Mcg Capsule PO 03/21/24 08:59 0.5 mcg QAM GENIA Administration Calcium Carbonate 1,500 mg 02/19/24 14:00 02/21/24 13:27 Calcium Carbonate 500 Mg Chewable Tab PO 03/20/24 13:59 1,500 mg TID GENIA Administration Clopidogrel Bisulfate 75 mg 02/16/24 09:00 02/19/24 08:34 Clopidogrel Bisulfate 75 Mg Tab PO 03/17/24 08:59 75 mg QAM GENIA Administration Cyanocobalamin 1,000 mcg 02/18/24 09:00 02/21/24 08:49 Cyanocobalamin (B-12) 500 Mcg Tablet PO 03/19/24 08:59 1,000 mcg QAM GENIA Administration Ferrous Sulfate 325 mg 02/17/24 09:30 02/21/24 08:49 Ferrous Sulfate 325 Mg Tab PO 03/18/24 09:29 325 mg QAM GENIA Administration Insulin Aspart 0 units 02/15/24 23:57 02/21/24 13:21 Insulin Aspart Per Unit Charge SC 03/16/24 23:56 Not Given ACHS GENIA Metoprolol Tartrate 12.5 mg 02/17/24 21:00 02/21/24 08:49 Metoprolol Tartrate 25 Mg Tab PO 03/18/24 20:59 12.5 mg BID GENIA Administration Morphine Sulfate 15 mg 02/15/24 16:56 02/19/24 01:46 Morphine Sulfate Ir 15 Mg Tab (Immediate Release) PO 02/29/24 16:55 15 mg BID PRN Administration BREAKTHROUGH PAIN Polyethylene Glycol 17 gm 02/15/24 23:57 02/20/24 13:19 Polyethylene (Miralax) 17 Gm Pack PO 03/16/24 23:56 17 gm DAILY PRN Administration Constipation Potassium Phosphate 2 tab 02/20/24 09:00 02/21/24 13:25 Pot Phosphate Monobasic W/ Sod Tab PO 03/21/24 08:59 2 tab QID GENIA Administration Sacubitril/Valsartan 1 tab 02/15/24 21:00 02/17/24 08:15 Valsartan/Sacubitril 26/24mg Tab PO 03/16/24 20:59 1 tab BID GENIA Administration Tamsulosin HCl 0.4 mg 02/16/24 09:00 02/21/24 08:49 Tamsulosin Hcl 0.4 Mg Cap PO 03/17/24 08:59 0.4 mg QAM GENIA Administration Protocol Tramadol HCl 150 mg 02/15/24 21:00 02/21/24 08:49 Tramadol Hcl 50 Mg Tablet PO 03/16/24 20:59 150 mg BID GENIA Administration
[2024-02-21] MEDS ORDERED: HYDROmorphone INJ 0.5 MG/0.5 ML SYR IV PRN (18:15)
[2024-02-22] MEDS: LIDOCAINE 2% JELLY 5 ML TUBE EXT SCH (00:40)
[2024-02-22 06:45] LABS: Hemoglobin 7.4 g/dl (14.0-18.0); Mean Corpuscular Hemoglobin 29.6 pg (25.0-34.0); Mean Corpuscular Hgb Conc 32.2 g/dL (32.0-36.0); Mean Platelet Volume 9.8 fL (9.4-12.4); Nucleated RBC # (auto) 0.02 K/uL (0.00-0.12); Nucleated RBC % (auto) 0.5 %; Platelet Count 100 K/uL (130-400); RDW Coefficient of Variation 18.2 % (11.5-14.5); RDW Standard Deviation 62.3 fL (36.4-46.3); White Blood Count 3.91 K/ul (4.8-10.8)
[2024-02-22 06:55] LABS: BUN Creatinine Ratio 12.6 (10-20); Calcium 5.3 mg/dl (8.6-10.3); Creatinine Clr Calc Pharmacy 43.8 ml/min; Est GFR (African American) 59.6 ml/min; Est GFR (Non-African American) 51.4 ml/min; Potassium 3.3 mmol/L (3.5-5.1)
[2024-02-22] MEDS: POTASSIUM CHLORIDE CRTAB 20 MEQ TABCR PO STA (07:30)
[2024-02-22] MEDS: CALCIUM GLUCONATE 1,000 MG/60 ML BAG IV SCH (07:30)
--- NOTE | 2024-02-22 09:11 | Nephrology Progress Note ---
Date of Service February 22, 2024 Assessment & Plan (1) Hypocalcemia syndrome: Plan: recurrent and worse now that at admission, progressive decline despite aggressive (2) Acute renal failure superimposed on stage 3 chronic kidney disease: Plan: 63-year-old male with PMH of metastatic prostate cancer on chemotherapy, type 2 diabetes, PAD, HFrEF (EF 48% improved), hypertension, CKD 3, history of CVA, tobacco use disorder and other medical problems was directed for admission from heme-onc clinic due to worsening anemia and renal function since outpatient labs Further improving CARLOS on CKD, at least in part obstructive +/- role for pluvicto causing prerenal/ischemic ATN. His baseline Scr is in low 1.0's, pluvicto Can cause Carlos , electrolyte abnormalities and Anemia. This has already being withheld.His oral inake has also been poor over the last few months. -hold IVF -His renal function may not return to the previous baseline but is somewhat improved now - cont to hold Jardiance and Entresto > low threshold for CXR given HFrEF (48% EF Aug 2023) and pRBC w/o lasix yesterday and now 4L + on the admission - monitor sNa on tramadol current dose -encourage po fluids -Transfuse to keep Hb > 7.0 - Maintain MAP> 65 - Daily BMP , I/O NEPHRO D/C RECS -Hold Jardiance and Entresto at hospital discharge Defer to primary service on outpatient pain regimen but metabolites of morphine can accumulate in renal failure and would be cautious with using this -Would also be cautious about resuming Uroxatrol until renal function within 0.3 of baseline creatinine consistently -continue nsaid avoidance now and after d/c ->needs bmp, cbc at PCP f/u visit w/ in one week of d/c -needs hospital d/c appt WITH ME in 2-3 wks at [facility] or [facility] w/ renal nurse to order bmp, acr, prot/creat, UACM, PTH, 25 OHD, cbc to be done in the 3-5 days before appt (3) Acute on chronic anemia: Plan: As above - Multifactorial-- Prostate cancer, Chemotheray. CKD, Nutritional - Transfuse to keep Hb >7. s/p 2 units pRBC 02/14; then 1 on 02/18 w/ appropriate response; await reading in AM - As per heme/ Onco (4) Abnormal blood electrolyte level: Plan: -hypocalcemia and mild hyperchloremia; caused by Chemotherapy. CKD, Nutritional, Xgeva. calcium dropped some today again; PTH appropriately elevated, phos on lower side, mag ok -Replete as necessary - increased calcitriol to 0.5 mcg daily - Continue on Calcium and VD replacement but upped calcium to 1500 mg tid - had K replacemetn today - agree w/ stopping renal diet Admission and Anticipated Discharge Date Admission Date: February 15, 2024 Subjective back to see pt d/t abruptly worse/recurrent hypocalcemia Physical Exam 2 Constitutional: well developed, + thin and cooperative; no acute distress Eyes: EOM intact bilaterally ENMT: Ears: no external ear abnormality Nose: no external nose abnormality Mouth: + dry oral mucous membranes Neck: no nuchal rigidity Respiratory: normal respiratory effort and + cough (new, dry?) A uscultation: + diminished lung sounds Cardiovascular: RRR, no murmur, no edema Gastrointestinal (Abdomen): Inspection/Auscultation: normal bowel sounds P ercussion/Palpation: abdomen soft; abdomen nontender Musculoskeletal: Extremities: strength 5/5 throughout Skin: no rashes, warm and dry Results & Data Vital Signs (Past 12 Hours) Vital Signs Temp Pulse Pulse Resp BP BP Pulse Ox 02/22/24 08:38 36.9 C 88 17 129/75 97 02/22/24 07:30 02/22/24 07:00 86 02/22/24 03:19 36.9 C 86 16 116/67 96 02/21/24 22:19 36.8 C 79 16 124/66 99 02/21/24 22:04 79 O2 Del Method 02/22/24 08:38 Room Air 02/22/24 07:30 Room Air 02/22/24 07:00 02/22/24 03:19 Room Air 02/21/24 22:19 Room Air 02/21/24 22:04 Laboratory Results 02/22/24 05:48 02/22/24 05:48 iCa 0.64 Ca 5.3 < 6.1 < 7.0 < 7.1< 7.6< 7.0
[2024-02-22 10:15] LABS: Magnesium 1.5 mg/dl (1.7-2.4); Phosphorus 3.9 mg/dl (2.5-4.9)
[2024-02-22] MEDS: CALCITRIOL 0.25 MCG CAPSULE PO STA ×2 (10:37)
[2024-02-22 14:36] LABS: Albumin Level 3.2 gm/dl (3.4-5.0); BUN Creatinine Ratio 12.9 (10-20); Bilirubin,Total 0.4 mg/dl (0.2-1.0); Calcium 6.2 mg/dl (8.6-10.3); Creatinine Clr Calc Pharmacy 42.6 ml/min; Est GFR (African American) 57.6 ml/min; Est GFR (Non-African American) 49.7 ml/min; Globulin 3.2 gm/dl (2.5-4.0); Potassium 3.7 mmol/L (3.5-5.1); Total Protein 6.4 gm/dl (6.0-8.3)
[2024-02-22] MEDS: ERGOCALCIFEROL 1250 MCG (50,000 UNITS) CAP PO SCH (15:07)
--- NOTE | 2024-02-22 15:33 | Discharge Summary ---
Discharge Summary Date of Service February 22, 2024 Notes For Next Care Provider Long discussion regarding code status, patient states "no one ever had discussion regarding all the other things that go along with it" -Patient would like to "think on it" but is considering DNR/DNI -would benefit from a POLST/Advanced directives conversation with PCP or Oncologist -Discussed risks of multiple electrolyte abnormalities, wishes to discharge but emphasizes "comfort" and "quality," not ready to put it "down" today however Medication Changes From Visit -Start Slow Mag 64mg two times a day -Start Vitamin B12 supplementation 1000mcg daily -Start Vitamin D2 1250 mcg daily -Start Tums 7.5 tablets three times a day -Start Calcitriol 1mcg (4 tablets) daily -Start Vitamin D2 50,000U daily -Discontinue alfuzosin 10mg -Start Tamsulosin 0.4mg in replacement given renal function -Hold Plavix till follow up with Urology on Sunday -Hold Enresto 24-26mg and Jardiance 25mg given renal dysfunction -Start Metoprolol 12.5mg two times a day Admission HPI Per Admitting Provider This is a 63-year-old male with PMH of metastatic prostate cancer on chemotherapy, type 2 diabetes, PAD, HFrEF, hypertension, CKD 3, history of CVA, tobacco use disorder and other medical problems listed below who was directed from heme-onc clinic due to worsening anemia and renal function since outpatient labs yesterday. Was seen in heme/onc infusion center yesterday for Xgeva injection and was held due to hypocalcemia and hypophosphatemia. Received 1L NSS fluid resuscitation and instructed to return today for repeat labs. Hgb downtrended from 7.7 to 7.3 and Cr from 1.8 to 1.9 and was directed by Dr. Queen to ED for further evaluation. Since the last chemo treatment in November (which has since been discontinued), patient endorses feeling more run down, fatigued and without an appetite. + Positional lightheadedness. No recent F/C, syncopal episodes, CP, SOB, N/V, abdominal pain aside from chronic cancer pain. + Dysuria, denies hematuria. Diarrhea today was brown in color. No recent melena or hematochezia. Taking a daily laxative to aid bowel movements in setting of daily opioids. Follows with Dr. Queen and Dr. Novak for mgmt of prostate cancer. Was recently [place] [facility] time 01/03[place]22 but one week later was admitted to [facility] for worsening anemia, renal function and improved with IV hydration. Per at bedside, PSA has been controlled but has not received another Pluvicto treatment yet (was pushed back from end of December to the end of January). 2D echo from 2022 shows EF 48% (improved from previous), no valvular abnormalities. Admission Exam Per Admitting Provider General Appearance: WD/WN, vitals as above, NAD, + pale, appears chronically ill Head: normocephalic, atraumatic Eyes: normal inspection, PERRL, conjunctivae normal, anicteric sclerae ENT: external ear and nose normal, dry mucous membranes of oropharynx Neck: normal visual inspection, trachea midline, no thyromegaly Respiratory: normal respiratory effort, lungs clear to auscultation, no wheeze, rales, rhonchi. No accessory muscle use Cardiovascular: regular rate, rhythm, no murmur, normal peripheral pulses, no BLE edema. Vessels: no JVD Chest: normal inspection of chest Abdomen/GI: normal bowel sounds, soft, nontender, no hepatosplenomegaly Extremities/Musculoskeletal: no cyanosis or clubbing, extremities motor strength 5/5, scattered bruising on BUE Neurologic: PERRL, EOMI, accommodation nl, no face palsy, no dysarthria, CN's II-XI intact bilaterally and moves all extremities Psychiatric: A+Ox3, euthymic affect Skin: no rashes, normal color, warm/dr Principal Dx & Hospital Course #1 = Principal Diagnosis (1) Acute on chronic anemia: (2) Pancytopenia due to chemotherapy: (3) Prostate cancer metastatic to bone: (4) Acute renal failure superimposed on stage 3 chronic kidney disease: (5) Elevated troponin: (6) HFrEF (heart failure with reduced ejection fraction): (7) DM2 (diabetes mellitus, type 2): (8) PAD (peripheral artery disease): (9) History of CVA (cerebrovascular accident): (10) BPH with obstruction/lower urinary tract symptoms: Plan Ms. Chaudhari is a 63 yr male with H/O Metastatic prostate cancer on chemotherapy, type 2 diabetes, PAD, HFrEF, hypertension, CKD 3, history of CVA, tobacco use disorder and other medical problems listed below who was directed from heme-onc clinic due to worsening anemia and renal function since outpatient labs. Patient underwent TURP on 02/17 with improvement of renal function, course co mplicated by post-operative hematuria and multiple electrolyte abnormalities.. #Symptomatic anemia. #Pancytopenia--POA Likely secondary to chemotherapy/Bone marrow suppression, B12 and Iron deficienc y In setting of ongoing prostate cancer chemotherapy Currently hematuria contributing as well --S/P 2 units PRBCs on admission, 1 UPRBC 02/18 post operatively Needs follow-up with oncology on discharge Platelet count stable Continue Iron and Vitamin B12 supplements Hold plavix, continue asa--discuss with Urology resuming DAPT given hematuria #Hypocalcemia #Hypophosphatemia #Hypokalemia acute on Chronic Calcium down to 5.34 up to 6.34 Calcitriol increased to 1mcg today, continue this dosing and adjust upon follow up with nephrology on Sunday Continue Tums 1500mg TID Start slow mag Start VIt D2 39100 unit daily Continue K phos home supplement Plan for follow up with nephrology with labs Sunday #CARLA on CKDIII *plateued at 1.4s Baseline Cr~ 1.3 Renal toxicity listed as side effect from Plucivto Obstructive uropathy, atrophic kidney contributing as well Hold Entresto, Jardiance until told to resume otherwise Encouraged po Follow up with Nephrology Monitor renal function Avoid nephrotoxic agents as able #Obstructive uropathy--POA #B/L hydroureteronephrosis In setting of BPH, metastatic prostate cancer --CT ABD:Right greater left bilateral hydroureteronephrosis without obstructing ureteral calculus or lesion identified. Prostamegaly with evidence of chronic outlet obstruction. Soft tissue density within the base of the urinary bladder measures up to 4.8 cm. This may be secondary to prostate parenchyma/mass versus a urothelial lesion and could be evaluated with cystoscopy. Progressive lymphatic and osseous metastatic disease. Small pleural effusions. No bowel ob struction or pneumoperitoneum. --Renal USD:Prostatomegaly with evidence of chronic bladder outlet obstruction. Right greater than left hydronephrosis may be secondary to the bladder outlet obstruction. Atrophic left kidney redemonstrated. --S/P Cystoscopy with meatal/Urethral Dilation, Bilateral Retrograde Pyelogram, Bilateral Stent Placement. Transurethral Resection of Prostate Mass, Transurethral Resection Bladder Tumor, Large by on 02/18/24 -- Place Velasquez catheter to minimize retention Appreciate Urology Input Given hematuria, will hold Plavix, resume upon follow up Sunday with Urology #Metastatic prostate cancer Ongoing cancer treatment, previously on chemo (discontinued in November), received first dose of [place] [facility] for the first time 01/03/22 but subsequent treatment was postponed due to anemia Plan to follow up Oncology OP #Elevated trop Likely demand ischemia in setting of anemia Denies chest pain EKG reviewed - sinus tachycardia with occasional PVCs, otherwise normal Monitor and replace electrolytes as needed #HFmrEF ECHO from Aug 2023 shows EF 48% (improved from previous), no valvular abnormalities Hold Entresto, resume upon improvement of CARLA Continue statin #NSVT #PVCs Monitor and replace electrolytes as as needed Started on metoprolol 12.5 mg twice a day, continue Follow up with Cards OP #DMTII HbA1c 6.3 in November 2023 Hold home agents Continue insulin while hospitalized Monitor BGs #PAD Continue aspirin, statin Resume Plavix as able May need to hold aspirin as well if continues to have hematuria #Prior CVA Continue aspirin Statin Resume Plavix as able #BPH Continue alfuzosin, bladder scan PRN #Tobacco use disorder 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 Long discussion regarding code status had--patient not ready to change to DNR/DNI but wishes to have POLST conversation in future with PCP Discharge Exam Constitutional WD/WN, vitals as above Respiratory normal respiratory effort, lungs clear to auscultation Cardiovascular RRR, no murmur, no edema Gastrointestinal (Abdomen) normal bowel sounds, soft, nontender, no hepatosplenomegaly gross hematuria, however, improved in color Updated Medication List Medication Instructions Recorded Confirmed Type atorvastatin 80 mg tablet 80 mg PO QPM 04/23/02/15/24 History empagliflozin 25 mg tablet 25 mg PO QAM 05/31/21 02/15/24 History (Jardiance) aspirin 81 mg tablet,delayed 81 mg PO QAM #30 tabs 06/03/21 02/15/24 Rx release acetaminophen 500 mg tablet 500 - 1,000 mg PO Q6H PRN Pain 12/06/22 02/15/24 History (Tylenol Extra Strength) clopidogrel 75 mg tablet 75 mg PO QAM 12/06/22 02/15/24 History denosumab 120 mg/1.7 mL (70 mg/mL) 120 mg subcut MONTHLY 12/06/22 02/15/24 History subcutaneous solution (Xgeva) linagliptin 5 mg tablet (Tradjenta) 5 mg PO QAM 12/06/22 02/15/24 History sacubitril 24 mg-valsartan 26 mg 1 tab PO BID 12/06/22 02/15/24 History tablet (Entresto) tramadol 50 mg tablet 300 mg PO BID pain 08/01/23 02/15/24 History morphine 15 mg immediate release 15 mg PO BID PRN Pain 01/11/24 02/15/24 History tablet ondansetron HCl 8 mg tablet 8 mg PO DIRECTED PRN Nausea 01/11/24 02/15/24 History potassium phosphate, monobasic 500 500 mg PO BID 01/11/24 02/15/24 History mg soluble tablet (K-Phos Original) prochlorperazine maleate 10 mg 10 mg PO DIRECTED PRN Nausea 01/11/24 02/15/24 History tablet morphine 15 mg tablet,extended 15 mg PO DAILY PRN Pain 02/15/24 02/15/24 History release calcitriol 0.25 mcg capsule 1 mcg (4 x 0.25 mcg) PO QAM #120 02/22/24 Rx caps calcium carbonate (Tums) 1,500 mg (7.5 x 200 mg calcium 02/22/24 Rx (500 mg)) PO TID #360 tabs cyanocobalamin (vitamin B-12) 500 1,000 mcg (2 x 500 mcg) PO QAM #60 02/22/24 Rx mcg tablet tabs ergocalciferol (vitamin D2) 1,250 1,250 mcg PO DAILY #30 caps 02/22/24 Rx mcg (50,000 unit) capsule ferrous sulfate 325 mg (65 mg 325 mg PO QAM #30 tabs 02/22/24 Rx iron) tablet,delayed release lidocaine HCl 2 % mucosal jelly in 1 ml EXT BID #125 mL 02/22/24 Rx applicator magnesium chloride 64 mg 64 mg PO BID #60 tabs 02/22/24 Rx (magnesium chloride) tablet,delayed release (Mag 64) metoprolol tartrate 25 mg tablet 12.5 mg (1/2 x 25 mg) PO BID #30 02/22/24 Rx tabs tamsulosin 0.4 mg capsule 0.4 mg PO QAM #30 caps 02/22/24 Rx Hospital Stay Data Consultations 02/15/24 15:55 ED Decision to Admit Stat 02/17/24 09:13 Consult Nephrology Routine 02/17/24 11:39 Consult Urology Routine Procedures Performed Operation Date: 02/18/24 07:00 Actual Procedures p Cystoscopy, Urethral Dilation, Bilateral Retrograde Pyelogram, Bilateral Stent Placement(Not Applicable) - DO brayan Keenan Transurethral Resection Prostate, (Not Applicable) - DO brayan Keenan Transurethral Resection Bladder Tumor(Not Applicable) - Oracio Chaudhari DO Diagnostic Imagining Performed 02/17/24 09:14 US Renal Bladder [US renal/blad retro comp] Routine 02/17/24 12:28 CT abd pelvis wo con Urgent 02/18/24 09:00 FL retrograde includes kub Routine Pending Results Patient Have Any Pending Studies at Discharge: No Discharge Instructions Given to Patient (Per Discharging Provider) You were admitted for symptomatic anemia and renal injury due to mass obstructing your urine flow. You received 3 Units of blood. You underwent biopsy and tissue removal of prostate mass, with stent placement as well. Your course was complicated by hematuria(blood in urine). A Velasquez was left in place. You have follow up with Urology for void trial. You admission was further complicated by electrolyte issues, notably a very low calcium level. Here are the following recommendations for management of electrolytes: -Start Slow Mag 64mg two times a day -Start Vitamin B12 supplementation 1000mcg daily -Start Vitamin D2 1250 mcg daily -Start Tums 7.5 tablets three times a day -Start Calcitriol 1mcg (4 tablets) daily -Start Vitamin D2 50,000U daily Please follow up with nephrology on Sunday for labs: basic metabolic panel, phosphorous, ionized calcium, magnesium Discontinue alfuzosin 10mg Start Tamsulosin 0.4mg in replacement given renal function Hold Plavix till follow up with Urology on Sunday Hold Enresto 24-26mg and Jardiance 25mg given renal dysfunction Start Metoprolol 12.5mg two times a day Please follow up with Cardiology Please discuss Palliative Care referral with Dr. Fritz or with Dr. Queen. Total Time Total Time Spent Total Time Spent (In Minutes): 65
[2024-02-22] MEDS ORDERED: MAGNESIUM CHLORIDE W/CALCIUM 64MG DELAYED REL TAB PO SCH (21:00)
[2024-02-22] MEDS ORDERED: MAGNESIUM OXIDE 400 MG TAB PO SCH (21:00)
[2024-02-23] MEDS ORDERED: CALCITRIOL 0.25 MCG CAPSULE PO SCH (09:00)
== END 2024-02-22 18:28 | disposition home or self-care (01) | DRG 659 ==
LOC: ED 14:07 → 2N 17:02 → SUATTDRO 17:02 → 2N 22:52
DX: N18.30 Chronic kidney disease, stage 3 unspecified; E83.39 Other disorders of phosphorus metabolism; Z79.899 Other long term (current) drug therapy; Z88.8 Allergy status to other drugs, medicaments and biological substances; N13.8 Other obstructive and reflux uropathy; Z79.82 Long term (current) use of aspirin; N13.30 Unspecified hydronephrosis; D61.810 Antineoplastic chemotherapy induced pancytopenia; T45.1X5A Adverse effect of antineoplastic and immunosuppressive drugs, initial encounter; E11.22 Type 2 diabetes mellitus with diabetic chronic kidney disease; C79.51 Secondary malignant neoplasm of bone; E78.5 Hyperlipidemia, unspecified; E11.51 Type 2 diabetes mellitus with diabetic peripheral angiopathy without gangrene; Z88.0 Allergy status to penicillin; E83.51 Hypocalcemia; I24.89 Other forms of acute ischemic heart disease; I47.10 Supraventricular tachycardia, unspecified; Z79.84 Long term (current) use of oral hypoglycemic drugs; I50.22 Chronic systolic (congestive) heart failure; Z88.5 Allergy status to narcotic agent; Z79.02 Long term (current) use of antithrombotics/antiplatelets; E87.8 Other disorders of electrolyte and fluid balance, not elsewhere classified; I49.3 Ventricular premature depolarization; N40.1 Benign prostatic hyperplasia with lower urinary tract symptoms; N17.0 Acute kidney failure with tubular necrosis; I13.0 Hypertensive heart and chronic kidney disease with heart failure and stage 1 through stage 4 chronic kidney disease, or unspecified chronic kidney disease; E87.6 Hypokalemia; F17.210 Nicotine dependence, cigarettes, uncomplicated; R31.9 Hematuria, unspecified; Z86.73 Personal history of transient ischemic attack (TIA), and cerebral infarction without residual deficits; C61 Malignant neoplasm of prostate

== ENCOUNTER 2024-02-23 16:18 | Inpatient (IN) ==
--- NOTE | 2024-02-23 16:35 | Emergency Department Note ---
Impression & Plan Hematuria, Complication of Velasquez catheter, Anemia ED Provider Note NAME: MARÍA ELENA VIRGEN AGE: 63 SEX: M : 1960 ARRIVES VIA: Ambulance INFORMANT: Patient ED PROVIDER(S): Oren Laguna DO CHIEF COMPLAINT: Velasquez clotted off HPI: Patient is a 63-year-old male with a past medical history of prostate cancer causing bilateral hydro likely from obstructive process and consequently he was seen by urology recently admitted and discharged yesterday. He had bilateral stents placed in the Velasquez. He was discharged home and since being home he notes the catheter has clotted off. He tried to fix this himself. He denies any headache or change in vision. Notes the pain is severe. He does have some urine leaking out around the Velasquez. Does have urgency and frequency. ADDITIONAL HISTORY OBTAINED: Per HPI Chronic Medical/Social Conditions Affecting Care: Per HPI PAST MEDICAL HISTORY:See Below PAST SURGICAL HISTORY:See Below FAMILY HISTORY:See Below SOCIAL HISTORY:See Below HOME MEDICATIONS:See Below ALLERGIES:See Below VITALS:See Below PHYSICAL EXAMINATION: GENERAL: Sitting up in bed, alert, moderate distress, uncomfortable, EYE EXAM: normal conjunctiva. PERRL and EOM's grossly intact. OROPHARYNX: no exudate, no erythema, lips, buccal mucosa, and tongue normal and mucous membranes are moist NECK: supple, no nuchal rigidity, no adenopathy, non-tender LUNGS: Clear to auscultation. Normal chest wall mechanics HEART: no murmurs, S1 normal and S2 normal ABDOMEN: abdomen soft, non-tender, normo-active bowel sounds, no masses, no rebound or guarding. BACK: Back is symmetrical on inspection and there is no deformity, no midline tenderness, no CVA tenderness. SKIN: no rashes and no bruising UPPER EXTREMITIES: upper extremities are grossly normal. LOWER EXTREMITIES: No pitting edema. NEURO EXAM: Normal sensorium, cranial nerves II-XII grossly intact, normal speech, no gross weakness of arms, no gross weakness of legs. MEDICAL DECISION MAKING: Patient is a 63-year-old male who presents ER who was just discharged earlier today who has bilateral stents and hematuria. He returns as his Velasquez clotted off. While here it was flushed on 2 separate occasions and now has been draining without difficulty. IV shows no significant leukocytosis. Mild anemia at 7.8. Platelets 103. INR 1.2. BMP with creatinine 1.5 fairly stable. LFTs bilirubin was unremarkable. Lipase was normal. Patient was discussed with the hospitalist for further evaluation management treatment due to the intermittent clotting off of catheter. Urine did have white cells which is likely secondary to the hematuria but patient was given a dose of antibiotics. Consults/Care Managements Discussions: Per MDM Triage Nursing notes reviewed. Limited review of prior medical records performed Vital Signs: reviewed and remarkable for no significant abnormalities Differential diagnosis: Differential diagnoses includes but is not limited to gastritis, peptic ulcer disease, GERD, gallbladder disease, pancreatitis, small bowel obstruction, appendicitis, diverticulitis, hernia, urinary tract infection, torsion, perforation, trauma, infectious. ER treatment provided: See below Diagnostics interpreted by me include EKG and cardiac monitoring as listed below: -Cardiac Monitoring: An order was placed for continuous cardiac monitoring. The monitor shows a rate of 101 with sinus rhythm. -ECG: none -Laboratory studies:Interpreted by me as stated above in MDM and shown below. Imaging studies: Xrays: As interpreted by me:none CTs show: none Renal ultrasound shows complex fluid in the bladder. Procedures:none Critical Care: None Past Med/Surg History Problem List (Updated 02/23/24 @ 18:52 by Oren Laguna DO) Anemia (Acute) Complication of Velasquez catheter (Acute) Hematuria (Acute) Hypocalcemia syndrome Bilateral hydronephrosis Abnormal blood electrolyte level Symptomatic anemia (Acute) History of CVA (cerebrovascular accident) HFrEF (heart failure with reduced ejection fraction) Acute on chronic anemia (Acute) Acute renal failure superimposed on stage 3 chronic kidney disease (Acute) Pancytopenia due to chemotherapy Adult failure to thrive (Acute) Elevated troponin (Acute) Prostate cancer metastatic to bone (Chronic) Prostate cancer Biopsy on 06/10/21 Tobacco abuse (Chronic) HLD (hyperlipidemia) (Chronic) HTN (hypertension) (Chronic) DM2 (diabetes mellitus, type 2) (Chronic) PAD (peripheral artery disease) BPH with obstruction/lower urinary tract symptoms (Acute) Medical History History of left heart catheterization (LHC) "cardiac cath -02/04 10-20% block" Stroke Surgical History History of left common carotid artery stent placement Family History Mother , in her 80s Myocardial infarction H/O cardiac surgery Diabetes Father , 58yo Myocardial infarction Lung disease 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 Brother No problems noted. Brother No problems noted. Brother No problems noted. Brother No problems noted. Daughter No problems noted. Son No problems noted. Son Diabetes Other Heart disease Hypertension Social History Smoking Status: Current every day smoker Tobacco Type: Cigarettes packs per day: 0.5; Cigarettes Per Day: pack per day; Do You Dip or Chew Tobacco: No; Hx Alcohol Use: Yes Alcohol type: beer Alcohol Intake Frequency: Monthly or Less Hx Substance Use: Yes Prescribed Medications: Marijuana Last Used Substance: Just Prior to Arrival Last Used Substance Other:: marijuana 01/10 Preferred Language: German Communication Ability: Effective Visual Impairment: No Limitations Hearing Ability: Normal Rig Builder Required: No Beliefs That Will Affect Care: None marital status: Current Living Situation: Spouse and Family Current Living Situation Comment: , daughter/her spouse current occupational status: retired Feels Safe at Home: Yes Diet: regular caffeine: No during the past year weight has: decreased > 10 lbs Assistive Devices: None Allergies Allergies Allergy/AdvReac Type Severity Reaction Status Date / Time amoxicillin [From Augmentin] AdvReac Intermediate DIZZINESS/C Verified 02/23/24 18:02 ONFUSION clavulanic acid AdvReac Intermediate DIZZINESS/C Verified 02/23/24 18:02 [From Augmentin] ONFUSION codeine AdvReac Intermediate Gastrointestinal Verified 02/23/24 18:02 Upset Home Meds Home Medications Medication Instructions Recorded Confirmed atorvastatin 80 mg tablet 80 mg PO QPM 04/23/19 02/23/24 empagliflozin 25 mg tablet 25 mg PO QAM 05/31/21 02/23/24 (Jardiance) acetaminophen 500 mg tablet 500 - 1,000 mg PO Q6H PRN Pain 12/06/22 02/23/24 (Tylenol Extra Strength) clopidogrel 75 mg tablet 75 mg PO QAM 12/06/22 02/23/24 denosumab 120 mg/1.7 mL (70 mg/mL) 120 mg subcut MONTHLY 12/06/22 02/23/24 subcutaneous solution (Xgeva) linagliptin 5 mg tablet (Tradjenta) 5 mg PO QAM 12/06/22 02/23/24 sacubitril 24 mg-valsartan 26 mg 1 tab PO BID 12/06/22 02/23/24 tablet (Entresto) tramadol 50 mg tablet 150 mg PO BID pain 08/01/23 02/23/24 morphine 15 mg immediate release 15 mg PO BID PRN Pain 01/11/24 02/23/24 tablet ondansetron HCl 8 mg tablet 8 mg PO DIRECTED PRN Nausea 01/11/24 02/23/24 potassium phosphate, monobasic 500 500 mg PO BID 01/11/24 02/23/24 mg soluble tablet (K-Phos Original) prochlorperazine maleate 10 mg 10 mg PO DIRECTED PRN Nausea 01/11/24 02/23/24 tablet morphine 15 mg tablet,extended 15 mg PO DAILY PRN Pain 02/15/24 02/23/24 release Previous Rx's Medication Instructions Recorded aspirin 81 mg tablet,delayed 81 mg PO QAM #30 tabs 06/03/21 release calcitriol 0.25 mcg capsule 1 mcg (4 x 0.25 mcg) PO QAM #120 02/22/24 caps calcium carbonate (Tums) 1,500 mg (7.5 x 200 mg calcium 02/22/24 (500 mg)) PO TID #360 tabs cyanocobalamin (vitamin B-12) 500 1,000 mcg (2 x 500 mcg) PO QAM #60 02/22/24 mcg tablet tabs ergocalciferol (vitamin D2) 1,250 1,250 mcg PO DAILY #30 caps 02/22/24 mcg (50,000 unit) capsule ferrous sulfate 325 mg (65 mg 325 mg PO QAM #30 tabs 02/22/24 iron) tablet,delayed release lidocaine HCl 2 % mucosal jelly in 1 ml EXT BID #125 mL 02/22/24 applicator magnesium chloride 64 mg 64 mg PO BID #60 tabs 02/22/24 (magnesium chloride) tablet,delayed release (Mag 64) metoprolol tartrate 25 mg tablet 12.5 mg (1/2 x 25 mg) PO BID #30 02/22/24 tabs tamsulosin 0.4 mg capsule 0.4 mg PO QAM #30 caps 02/22/24 Results & Data (ED) Vital Signs Vital Signs - 24 hr 02/23/24 16:30 02/23/24 16:30 02/23/24 17:51 Temperature 36.6 C Temperature Source Oral Pulse Rate 140 H Pulse Rate [Apical] 106 H Respiratory Rate 14 14 Blood Pressure 141/99 H Blood Pressure [Left Arm] 121/81 Blood Pressure Mean 113 Blood Pressure Mean [Left Arm] 94 Pulse Oximetry 99 98 Oxygen Delivery Method Room Air Room Air Room Air Sepsis New/Unexplained Change in Mental Status No Sepsis Action Taken by Nursing No Action Required 02/23/24 18:00 02/23/24 18:30 Temperature Temperature Source Pulse Rate 111 H 100 H Pulse Rate [Apical] Respiratory Rate 13 Blood Pressure Blood Pressure [Left Arm] Blood Pressure Mean Blood Pressure Mean [Left Arm] Pulse Oximetry Oxygen Delivery Method Room Air Sepsis New/Unexplained Change in Mental Status Sepsis Action Taken by Nursing Laboratory Data 02/23/24 16:57 02/23/24 16:57 Lab Results 02/23/24 02/23/24 Range/Units 16:57 18:00 WBC 5.19 (4.8-10.8) K/ul RBC 2.69 L (4.70-6.10) M/uL Hgb 7.8 L (14.0-18.0) g/dl Hct 24.6 L (42.0-52.0) % MCV 91.4 (80.0-100.0) fL MCH 29.0 (25.0-34.0) pg MCHC 31.7 L (32.0-36.0) g/dL RDW Std Deviation 59.9 H (36.4-46.3) fL RDW Coeff of Clara 18.1 H (11.5-14.5) % Plt Count 103 L (130-400) K/uL MPV 10.1 (9.4-12.4) fL Absolute Nucleated RBC 0.02 (0.00-0.12) K/uL Nucleated RBC % (auto) 0.4 % Neutrophils % (Manual) 84 % Lymphocytes % (Manual) 5 % Monocytes % (Manual) 6 % Eosinophils % (Manual) 2 % Metamyelocytes % (Man) 1 % Myelocytes % (Man) 2 % Neutrophils # (Manual) 4.36 (1.40-6.50) K/uL Total Absolute Neuts 4.36 (1.4-6.5) K/uL Lymphocytes # (Manual) 0.26 L (1.2-3.4) K/uL Total Abs Lymphocytes 0.26 L (1.2-3.4) K/uL Monocytes # (Manual) 0.31 (0.11-0.59) K/uL Eosinophils # (Manual) 0.10 (0-0.50) K/uL Metamyelocytes # (Man) 0.05 H (0-0) K/uL Myelocytes # (Manual) 0.10 H (0-0) K/uL Tear Drop Cells 1+ PT 13.0 H (9.0-12.0) Seconds INR 1.2 H (0.9-1.1) Sodium 138 (136-145) mmol/L Potassium 3.6 (3.5-5.1) mmol/L Chloride 105 (98-107) mmol/L Carbon Dioxide 16 L (21-32) mmol/L Anion Gap 17 H (3-11) BUN 20 (6-23) mg/dl Creatinine 1.50 H (0.6-1.4) mg/dl Est Cr Clr Drug Dosing 44.9 ml/min Est GFR ( Amer) 56.2 ml/min Est GFR (Non-Af Amer) 48.5 ml/min BUN/Creatinine Ratio 13.3 (10-20) Glucose 221 H (70-99(Fasting)) mg/dl Calcium 6.5 L (8.6-10.3) mg/dl Total Bilirubin 0.6 (0.2-1.0) mg/dl AST 53 H (13-39) U/L ALT 8 (7-52) U/L Alkaline Phosphatase 466 H (34-104) U/L Total Protein 6.3 (6.0-8.3) gm/dl Albumin 3.1 L (3.4-5.0) gm/dl Globulin 3.2 (2.5-4.0) gm/dl Albumin/Globulin Ratio 1.0 (0.9-2) Lipase 6 L (11-82) U/L Urine Color See Comment Urine Appearance Cloudy A (Clear) Urine pH Not Reportable Ur Specific [place] 1.017 (1.000-1.030) Urine Protein Not Reportable Urine Glucose (UA) Not Reportable Urine Ketones Not Reportable Urine Blood Not Reportable Urine Nitrite Not Reportable Urine Bilirubin Not Reportable Urine Urobilinogen Not Reportable Ur Leukocyte Esterase Not Reportable Urine RBC >20 H (0-2) /hpf Urine WBC 21-50 H (0-5) /hpf Ur Epithelial Cells 0-2 (0-2) /hpf Urine Bacteria None Seen (None Seen) Administered Medications Discontinued Medications Sodium Chloride (Nss) 1,000 mls @ 999 mls/hr IV .Q1H1M ONE Stop: 02/23/24 17:25 Last Infusion: 02/23/24 17:53 Dose: Infused Documented By: Admin: 02/23/24 16:58 Dose: 999 mls/hr Documented By: MAYUR Imaging Data Radiologist's Impression: Renal Ultrasound 02/23/24 16:39 RENAL ULTRASOUND HISTORY: Hematuria. COMPARISON: Abdomen and pelvis CT 02/17/2024. Renal ultrasound 02/17/2024. FINDINGS: Right kidney: 11.4 cm. Moderate hydronephrosis is similar to the prior study. A ureteral stent is partially visualized. Normal corticomedullary differentiation and cortical thickness. Left kidney: 7.8 cm. Mild to moderate hydronephrosis, unchanged. A ureteral stent is partially visualized. Diffuse cortical thinning. Bladder: Bladder is distended. There is complex material layering within the bladder without demonstrable color flow which measures 8 x 7 x 5 cm. This suggests blood products given the patient's history of hematuria. This could obscure a bladder mass. There is a Velasquez catheter and gas within the bladder lumen. IMPRESSION: 1. Bladder is distended. There is complex material layering within the bladder without demonstrable color flow which measures 8 x 7 x 5 cm. This suggests blood products given the patient's history of hematuria. This could obscure a bladder mass. 2. No change in the moderate right and mild to moderate left hydronephrosis. Bilateral ureteral stents are partially visualized. ACT 112: Negative or not required by law. Electronically signed by: Ángel Linder M.D. 02/23/2024 5:54 PM Discharge Plan Visit Data Chief Complaint: Hematuria Stated Complaint: CATHERTER ISSUES ED Provider: Oren Laguna Discharge Problem: Hematuria, Complication of Velasquez catheter, Anemia Forms Stand Alone Forms: My [facility] Prescriptions Prescriptions: No Action acetaminophen [Tylenol Extra Strength] 500 mg tablet 500 - 1,000 mg PO Q6H PRN (Reason: Pain) Xgeva 120 mg/1.7 mL (70 mg/mL) solution 120 mg subcut MONTHLY Rx Instructions: Calcium has been too low for injections. - last received in Oct- Nov Entresto 24-26 mg tablet 1 tab PO BID Hold Instructions: Hold until told to resume by Nephrology Rx Instructions: ON HOLD Tradjenta 5 mg tablet 5 mg PO QAM clopidogrel 75 mg tablet 75 mg PO QAM Hold Instructions: Resume upon follow up with Urology Rx Instructions: ON HOLD tramadol 50 mg tablet 150 mg PO BID atorvastatin 80 mg Tablet 80 mg PO QPM Jardiance 25 mg tablet 25 mg PO QAM Hold Instructions: Hold until told to resume by Nephrology Rx Instructions: ON HOLD aspirin 81 mg Tablet,Delayed Release (Dr/Ec) 81 mg PO QAM Qty: 30 0RF Rx Instructions: ALWAYS WITH FOOD ondansetron HCl 8 mg Tablet 8 mg PO DIRECTED PRN (Reason: Nausea) prochlorperazine maleate 10 mg tablet 10 mg PO DIRECTED PRN (Reason: Nausea) morphine 15 mg tablet 15 mg PO BID PRN (Reason: Pain) Rx Instructions: Pt will sometimes cut tablet into 4 equal pieces and take 1/4th of tablet. K-Phos Original 500 mg tablet,soluble 500 mg PO BID morphine 15 mg Tablet Extended Release 15 mg PO DAILY PRN (Reason: Pain) ferrous sulfate 325 mg (65 mg iron) Tablet,Delayed Release (Dr/Ec) 325 mg PO QAM Qty: 30 0RF tamsulosin 0.4 mg Capsule 0.4 mg PO QAM Qty: 30 0RF metoprolol tartrate 25 mg Tablet 12.5 mg PO BID Qty: 30 0RF magnesium chloride [Mag 64] 64 mg Tablet,Delayed Release (Dr/Ec) 64 mg PO BID Qty: 60 0RF cyanocobalamin (vitamin B-12) 500 mcg Tablet 1,000 mcg PO QAM Qty: 60 0RF lidocaine HCl 2 % Jelly In Applicator 1 ml EXT BID Qty: 125 0RF calcium carbonate [Tums] 200 mg calcium (500 mg) Tablet,Chewable 1,500 mg PO TID Qty: 360 0RF ergocalciferol (vitamin D2) 1,250 mcg (50,000 unit) Capsule 1,250 mcg PO DAILY Qty: 30 0RF calcitriol 0.25 mcg Capsule 1 mcg PO QAM Qty: 120 0RF Referrals Referrals: Dru Fritz MD [Primary Care Provider] - Discharge Problem: Hematuria Qualifiers: Hematuria type: unspecified type Qualified Code(s): R31.9 - Hematuria, unspecified Complication of Velasquez catheter Qualifiers: Encounter type: initial encounter Qualified Code(s): T83.9XXA - Unspecified complication of genitourinary prosthetic device, implant and graft, initial encounter Anemia Qualifiers: Anemia type: unspecified type Qualified Code(s): D64.9 - Anemia, unspecified
[2024-02-23] MEDS: SODIUM CHLORIDE 0.9% 1,000 ML IV ONE (16:58)
[2024-02-23 17:26] LABS: Hematocrit (blood only) 24.6 % (42.0-52.0); Hemoglobin 7.8 g/dl (14.0-18.0); Mean Corpuscular Hgb Conc 31.7 g/dL (32.0-36.0); Mean Corpuscular Volume 91.4 fL (80.0-100.0); Mean Platelet Volume 10.1 fL (9.4-12.4); Nucleated RBC # (auto) 0.02 K/uL (0.00-0.12); Nucleated RBC % (auto) 0.4 %; Platelet Count 103 K/uL (130-400); RDW Coefficient of Variation 18.1 % (11.5-14.5); RDW Standard Deviation 59.9 fL (36.4-46.3); Red Blood Count 2.69 M/uL (4.70-6.10); White Blood Count 5.19 K/ul (4.8-10.8)
[2024-02-23 17:31] LABS: Albumin Level 3.1 gm/dl (3.4-5.0); BUN Creatinine Ratio 13.3 (10-20); Bilirubin,Total 0.6 mg/dl (0.2-1.0); Calcium 6.5 mg/dl (8.6-10.3); Creatinine Clr Calc Pharmacy 44.9 ml/min; Est GFR (African American) 56.2 ml/min; Est GFR (Non-African American) 48.5 ml/min; Globulin 3.2 gm/dl (2.5-4.0); Potassium 3.6 mmol/L (3.5-5.1); Total Protein 6.3 gm/dl (6.0-8.3)
[2024-02-23 17:36] LABS: ALC (manual) 0.26 K/uL (1.2-3.4); ANC (manual) 4.36 K/uL (1.4-6.5); Eosinophils % (manual) 2 %; Lymphocytes # (manual) 0.26 K/uL (1.2-3.4); Lymphocytes % (manual) 5 %; Metamyelocytes # (manual) 0.05 K/uL (0-0); Metamyelocytes % (manual) 1 %; Monocytes # (manual) 0.31 K/uL (0.11-0.59); Monocytes % (manual) 6 %; Myelocytes % (manual) 2 %; Neutrophils # (manual) 4.36 K/uL (1.40-6.50); Neutrophils % (manual) 84 %; Tear Drop Cells 1+
[2024-02-23 17:40] LABS: INR 1.2 (0.9-1.1)
--- NOTE | 2024-02-23 17:57 | Ultrasound Report ---
RENAL ULTRASOUND HISTORY: Hematuria. COMPARISON: Abdomen and pelvis CT 02/17/2024. Renal ultrasound 02/17/2024. FINDINGS: Right kidney: 11.4 cm. Moderate hydronephrosis is similar to the prior study. A ureteral stent is par tially visualized. Normal corticomedullary differentiation and cortical thickness. Left kidney: 7.8 cm. Mild to moderate hydronephrosis, unchanged. A ureteral stent is partially visual ized. Diffuse cortical thinning. Bladder: Bladder is distended. There is complex material layering within the bladder without demonstr able color flow which measures 8 x 7 x 5 cm. This suggests blood products given the patient's history of hematuria. This could obscure a bladder mass. There is a Velasquez catheter and gas within the bladde r lumen. IMPRESSION: 1. Bladder is distended. There is complex material layering within the bladder without demonstrable c olor flow which measures 8 x 7 x 5 cm. This suggests blood products given the patient's history of he maturia. This could obscure a bladder mass. 2. No change in the moderate right and mild to moderate left hydronephrosis. Bilateral ureteral stent s are partially visualized. ACT 112: Negative or not required by law. Electronically signed by: Ángel Linder M.D. 02/23/2024 5:54 PM
[2024-02-23 18:31] LABS: Appearance Urine Cloudy (Clear); Specific Gravity Urine 1.017 (1.000-1.030)
--- NOTE | 2024-02-23 18:31 | History & Physical Report ---
Date of Service February 23, 2024 Assessment & Plan (1) Anemia: (2) Complication of Rain catheter: (3) Hematuria: (4) Hypocalcemia syndrome: (5) History of CVA (cerebrovascular accident): (6) HFrEF (heart failure with reduced ejection fraction): (7) Pancytopenia due to chemotherapy: (8) Prostate cancer metastatic to bone: (9) HLD (hyperlipidemia): (10) HTN (hypertension): (11) DM2 (diabetes mellitus, type 2): (12) PAD (peripheral artery disease): (13) BPH with obstruction/lower urinary tract symptoms: Plan Please see addendum for Dr. Vergara' plan details. I spent a total of 45 minutes coordinating, documenting, and providing care for this patient excluding time spent in the performance of separately billed services. History of Present Illness Chief Complaint: clogged rain, hematuria Primary Care Provider: Dru Fritz MD This is a 63-year-old male with PMH of metastatic prostate cancer on chemotherapy, type 2 diabetes, PAD, HFrEF, hypertension, CKD 3, history of CVA, tobacco use disorder and other medical problems listed below who was directed from heme-onc clinic due to worsening anemia and renal function since outpatient labs yesterday. Was admitted last week for anemia requiring 2u PRBCs and was found to have bilateral hydro during admission, requiring TURP on 02/[address] Chaudhari with post-operative hematuria. At time of discharge yesterday, patient had plavix held with urology follow up on Sunday. Rain was placed and patient returns this evening as clots are blocking its function. Endorses ongoing pelvic pain as well as discomfort from rain. has been taking all medications including new calcium, magnesium and vitamin D supplements. Does endorse a fall earlier today when transferring from car to house and hit his head. Denies LOS.+ Positional lightheadedness. No recent F/C, CP, SOB, N/V, abdominal pain aside from chronic cancer pain. No recent melena or hematochezia. Allergies Allergy/AdvReac Type Severity Reaction Status Date / Time amoxicillin [From Augmentin] AdvReac Intermediate DIZZINESS/C Verified 02/23/24 18:02 ONFUSION clavulanic acid AdvReac Intermediate DIZZINESS/C Verified 02/23/24 18:02 [From Augmentin] ONFUSION codeine AdvReac Intermediate Gastrointestinal Verified 02/23/24 18:02 Upset Home Medications Medication Instructions Recorded Confirmed Type atorvastatin 80 mg tablet 80 mg PO QPM 04/23/19 02/23/24 History empagliflozin 25 mg tablet 25 mg PO QAM 05/31/21 02/23/24 History (Jardiance) aspirin 81 mg tablet,delayed 81 mg PO QAM #30 tabs 06/03/21 02/23/24 Rx release acetaminophen 500 mg tablet 500 - 1,000 mg PO Q6H PRN Pain 12/06/22 02/23/24 History (Tylenol Extra Strength) clopidogrel 75 mg tablet 75 mg PO QAM 12/06/22 02/23/24 History denosumab 120 mg/1.7 mL (70 mg/mL) 120 mg subcut MONTHLY 12/06/22 02/23/24 History subcutaneous solution (Xgeva) linagliptin 5 mg tablet (Tradjenta) 5 mg PO QAM 12/06/22 02/23/24 History sacubitril 24 mg-valsartan 26 mg 1 tab PO BID 12/06/22 02/23/24 History tablet (Entresto) tramadol 50 mg tablet 150 mg PO BID pain 08/01/23 02/23/24 History morphine 15 mg immediate release 15 mg PO BID PRN Pain 01/11/24 02/23/24 History tablet ondansetron HCl 8 mg tablet 8 mg PO DIRECTED PRN Nausea 01/11/24 02/23/24 History potassium phosphate, monobasic 500 500 mg PO BID 01/11/24 02/23/24 History mg soluble tablet (K-Phos Original) prochlorperazine maleate 10 mg 10 mg PO DIRECTED PRN Nausea 01/11/24 02/23/24 History tablet morphine 15 mg tablet,extended 15 mg PO DAILY PRN Pain 02/15/24 02/23/24 History release calcitriol 0.25 mcg capsule 1 mcg (4 x 0.25 mcg) PO QAM #120 02/22/24 02/23/24 Rx caps calcium carbonate (Tums) 1,500 mg (7.5 x 200 mg calcium 02/22/24 02/23/24 Rx (500 mg)) PO TID #360 tabs cyanocobalamin (vitamin B-12) 500 1,000 mcg (2 x 500 mcg) PO QAM #60 02/22/24 02/23/24 Rx mcg tablet tabs ergocalciferol (vitamin D2) 1,250 1,250 mcg PO DAILY #30 caps 02/22/24 02/23/24 Rx mcg (50,000 unit) capsule ferrous sulfate 325 mg (65 mg 325 mg PO QAM #30 tabs 02/22/24 02/23/24 Rx iron) tablet,delayed release lidocaine HCl 2 % mucosal jelly in 1 ml EXT BID #125 mL 02/22/24 02/23/24 Rx applicator magnesium chloride 64 mg 64 mg PO BID #60 tabs 02/22/24 02/23/24 Rx (magnesium chloride) tablet,delayed release (Mag 64) metoprolol tartrate 25 mg tablet 12.5 mg (1/2 x 25 mg) PO BID #30 02/22/24 02/23/24 Rx tabs tamsulosin 0.4 mg capsule 0.4 mg PO QAM #30 caps 02/22/24 02/23/24 Rx Past Med/Surg History Problem List Anemia (Acute) Complication of Rain catheter (Acute) Hematuria (Acute) Hypocalcemia syndrome Bilateral hydronephrosis Abnormal blood electrolyte level Symptomatic anemia (Acute) History of CVA (cerebrovascular accident) HFrEF (heart failure with reduced ejection fraction) Acute on chronic anemia (Acute) Acute renal failure superimposed on stage 3 chronic kidney disease (Acute) Pancytopenia due to chemotherapy Adult failure to thrive (Acute) Elevated troponin (Acute) Prostate cancer metastatic to bone (Chronic) Prostate cancer Biopsy on 06/10/21 Tobacco abuse (Chronic) HLD (hyperlipidemia) (Chronic) HTN (hypertension) (Chronic) DM2 (diabetes mellitus, type 2) (Chronic) PAD (peripheral artery disease) BPH with obstruction/lower urinary tract symptoms (Acute) Medical History History of left heart catheterization (LHC) "cardiac cath -02/04 10-20% block" Stroke Surgical History History of left common carotid artery stent placement Family History Mother , in her 80s Myocardial infarction H/O cardiac surgery Diabetes Father , 58yo Myocardial infarction Lung disease 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 Brother No problems noted. Brother No problems noted. Brother No problems noted. Brother No problems noted. Daughter No problems noted. Son No problems noted. Son Diabetes Other Heart disease Hypertension Social History Smoking Status: Current every day smoker Tobacco Type: Cigarettes packs per day: 0.5; Cigarettes Per Day: pack per day; Second Hand Exposure: No; Do You Dip or Chew Tobacco: No; Tobacco Cessation Education Requested by Patient: No Hx Alcohol Use: Yes Alcohol type: beer Alcohol Intake Frequency: Monthly or Less Hx Substance Use: Yes Prescribed Medications: Marijuana Last Used Substance: Just Prior to Arrival Last Used Substance Other:: marijuana 01/10 Preferred Language: Japanese Communication Ability: Effective Visual Impairment: No Limitations Hearing Ability: Normal Area Attendant Required: No Beliefs That Will Affect Care: None marital status: Current Living Situation: Spouse Current Living Situation Comment: , daughter/her spouse current occupational status: retired Other Information That Helps Us Care for You: No Feels Safe at Home: Yes Safety Concerns: Feels Safe At This Time Diet: regular caffeine: No during the past year weight has: decreased > 10 lbs Assistive Devices: None Review of Systems Review of Systems: At least ten systems reviewed and negative except as noted in the HPI. Physical Exam Physical Exam: Please see Dr. Vergara' addendum for physical exam. Results & Data Results & Data Vital Signs (Past 12 Hours) Vital Signs Temp Pulse Pulse Resp BP BP Pulse Ox 02/23/24 18:00 111 H 02/23/24 17:51 106 H 14 121/81 98 02/23/24 16:30 02/23/24 16:30 36.6 C 140 H 14 141/99 H 99 O2 Del Method 02/23/24 18:00 02/23/24 17:51 Room Air 02/23/24 16:30 Room Air 02/23/24 16:30 Room Air Laboratory Results Short CBC 02/23/24 Range/Units 16:57 WBC 5.19 (4.8-10.8) K/ul Hgb 7.8 L (14.0-18.0) g/dl Hct 24.6 L (42.0-52.0) % Plt Count 103 L (130-400) K/uL BMP 02/23/24 16:57 Sodium 138 Potassium 3.6 Chloride 105 Carbon Dioxide 16 L BUN 20 Creatinine 1.50 H Glucose 221 H Calcium 6.5 L Liver Function 02/23/24 Range/Units 16:57 Total Bilirubin 0.6 (0.2-1.0) mg/dl AST 53 H (13-39) U/L ALT 8 (7-52) U/L Alkaline Phosphatase 466 H (34-104) U/L Albumin 3.1 L (3.4-5.0) gm/dl Urine 02/23/24 Range/Units 18:00 Urine Color See Comment Urine Appearance Cloudy A (Clear) Urine pH Not Reportable Ur Specific [place] 1.017 (1.000-1.030) Urine Protein Not Reportable Urine Glucose (UA) Not Reportable Diagnostic Findings Renal Ultrasound 02/23/24 16:39 RENAL ULTRASOUND HISTORY: Hematuria. COMPARISON: Abdomen and pelvis CT 02/17/2024. Renal ultrasound 02/17/2024. FINDINGS: Right kidney: 11.4 cm. Moderate hydronephrosis is similar to the prior study. A ureteral stent is partially visualized. Normal corticomedullary differentiation and cortical thickness. Left kidney: 7.8 cm. Mild to moderate hydronephrosis, unchanged. A ureteral stent is partially visualized. Diffuse cortical thinning. Bladder: Bladder is distended. There is complex material layering within the bladder without demonstrable color flow which measures 8 x 7 x 5 cm. This suggests blood products given the patient's history of hematuria. This could obscure a bladder mass. There is a Rain catheter and gas within the bladder lumen. IMPRESSION: 1. Bladder is distended. There is complex material layering within the bladder without demonstrable color flow which measures 8 x 7 x 5 cm. This suggests blood products given the patient's history of hematuria. This could obscure a bladder mass. 2. No change in the moderate right and mild to moderate left hydronephrosis. Bilateral ureteral stents are partially visualized. ACT 112: Negative or not required by law. Electronically signed by: Ángel Linder M.D. 02/23/2024 5:[address] 02/23/24 18:[address] DOSE: 625.8 mGy.cm HISTORY: fall, hit head TECHNIQUE: Multiaxial CT images of the head were performed without the use of intravenous contrast. Automated exposure control was utilized for this study. A dose lowering technique was utilized adhering to the principles of ALARA. Comparison: None. Findings: The paranasal sinuses and mastoid air cells are clear. The calvarium and skull base are intact. There is mild left posterior scalp swelling. Hypodensity and encephalomalacia within the right frontal/ parietal lobe extending to the right subinsular cortex. This favors an old right MCA territory infarct. Otherwise, there is no acute infarct, intracranial hemorrhage, or midline shift. Impression: 1. No acute infarct or intracranial hemorrhage. 2. Mild left posterior scalp swelling. 3. Hypodensity and encephalomalacia within the right frontal/parietal lobe suggestive of an old right MCA territory infarct. ACT 112: Negative or not required by law. Electronically signed by: Ángel Linder M.D. 02/23/2024 7:26 PM Code Status & VTE Plan VTE Prophylaxis Plan VTE Prophylaxis will be ordered: Yes Supervising Physician Co-Signing Physician Notes I have seen and discussed the case with the collaborating advanced practitioner. I agree with the above H&P. I have reviewed and confirmed the patients medical history, the findings on physical examination, and the patients diagnosis and treatment plan with Goran CUELLAR and agree with the information documented. In short, Mr. Chaudhari is a 63 yr male with H/O Metastatic prostate cancer on chemotherapy, type 2 diabetes, PAD, HFrEF, hypertension, CKD 3, history of CVA, tobacco use disorder and other medical problems listed below who is admitted for clotting of rain. Patient with hematuria s/p TURP on 02/17, with stable anemia. Patient discharged and rain continued to clot at home prompting presentation. Plan to do CBI and consult Urology GENERAL APPEARANCE: AxOx4, frail but pleasant gentleman, no acute distress. HEENT: NC, AT. MMM. EOMI, clear conjunctiva, oropharynx clear. NECK: Supple without lymphadenopathy. No stiffness or restricted ROM. HEART: tachycardic LUNGS: CTAB, moving air well. No crackles or wheezes are heard. ABDOMEN: Soft, nontender, nondistended with good bowel sounds heard. BACK: No CVAT, no obvious deformity. EXTREMITIES: Without cyanosis, clubbing or edema NEUROLOGICAL: Grossly nonfocal. Alert and oriented, moving all 4 extremities. CN not formally tested but appear grossly intact. Skin: scattered purpura on BUE #Acute on Chronic anemia, multifactorial POA #Pancytopenia--POA Likely secondary to chemotherapy/Bone marrow suppression, B12 and Iron deficiency In setting of ongoing prostate cancer chemotherapy Currently hematuria contributing as well --S/P 2 units PRBCs on admission, 1 UPRBC 02/18 post operatively Now 1 UPRBC 02/23 Platelet count stable Continue Iron and Vitamin B12 supplements Hold plavix, continue asa--discuss with Urology resuming DAPT given hematuria #hematuria #Recent obstructive uropathy s/p TURP #Adenocarcinoma prostate, bladder involvement #Metastatic prostate cancer Ongoing cancer treatment, previously on chemo (discontinued in November), [place] [facility] [place] but subsequent treatment was postponed due to anemia -Continue rain Consult Urology -CTM -Continue to hold plavix continue tamsulosin # CKDIII Baseline Cr~ 1.3, baseline this morning Recent CARLA suspected to be 2/2 Renal toxicity listed as side effect from Plucivto; Obstructive uropathy, atrophic kidney contributing as well Continue to hold Entresto, Jardiance until told to resume otherwise Encouraged po Monitor renal function Avoid nephrotoxic agents as able #Hypocalcemia #Hypophosphatemia #Hypokalemia POA Continue Calcitrol 1mcg Continue Tums 1500mg TID Continue slow mag Continue VIt D2 30784 unit daily Continue K phos home supplement Plan for follow up with nephrology with labs Sunday #HFmrEF ECHO from Aug 2023 shows EF 48% (improved from previous), no valvular abnormalities Hold Entresto, Continue statin #NSVT #PVCs Monitor and replace electrolytes as as needed continue metoprolol 12.5mg bid Follow up with Cards OP #DMTII HbA1c 6.3 in November 2023 Hold home agents Continue insulin while hospitalized Monitor BGs #PAD Continue aspirin, statin Resume Plavix as able aturia #Prior CVA Continue aspirin Statin Resume Plavix as able #Tobacco use disorder 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 All of the aforementioned completed outside of collaborating with the assigned advanced practitioner for a full treatment plan. I have reviewed the advanced practitioner's documentation, and I agree with, and take responsibility for the plan of care (1) Anemia Anemia type: unspecified type Qualified Code(s): D64.9 - Anemia, unspecified (2) Complication of Rain catheter Encounter type: initial encounter Qualified Code(s): T83.9XXA - Unspecified complication of genitourinary prosthetic device, implant and graft, initial encounter (3) Hematuria Hematuria type: unspecified type Qualified Code(s): R31.9 - Hematuria, unspecified
[2024-02-23 18:33] LABS: Bacteria Urine None Seen (None Seen); Epithelial Cell Urine 0-2 /hpf (0-2); RBC Urine >20 /hpf (0-2); WBC Urine 21-50 /hpf (0-5)
--- NOTE | 2024-02-23 19:28 | CT Scan Report ---
HEAD CT NONCONTRAST CT DOSE: 625.8 mGy.cm HISTORY: fall, hit head TECHNIQUE: Multiaxial CT images of the head were performed without the use of intravenous contrast. A utomated exposure control was utilized for this study. A dose lowering technique was utilized adheri ng to the principles of ALARA. Comparison: None. Findings: The paranasal sinuses and mastoid air cells are clear. The calvarium and skull base are int act. There is mild left posterior scalp swelling. Hypodensity and encephalomalacia within the right f rontal/ parietal lobe extending to the right subinsular cortex. This favors an old right MCA territor y infarct. Otherwise, there is no acute infarct, intracranial hemorrhage, or midline shift. Impression: 1. No acute infarct or intracranial hemorrhage. 2. Mild left posterior scalp swelling. 3. Hypodensity and encephalomalacia within the right frontal/parietal lobe suggestive of an old right MCA territory infarct. ACT 112: Negative or not required by law. Electronically signed by: Ángel Linder M.D. 02/23/2024 7:26 PM
[2024-02-23] MEDS ORDERED: CARBOHYDRATES FOR HYPOGLYCEMIA PO PRN (19:38)
[2024-02-23] MEDS ORDERED: GLUCAGON FOR INJ 1 MG VIAL SQ PRN (19:38)
[2024-02-23] MEDS ORDERED: GLUCOSE 10 TAB/TUBE PO PRN (19:38)
[2024-02-23] MEDS ORDERED: DEXTROSE 50% 50 ML SYRINGE IV PRN (19:38)
[2024-02-23] MEDS ORDERED: GLUCOSE 40% GEL 15 GM TUBE PO PRN (19:38)
[2024-02-23] MEDS ORDERED: PROCHLORPERAZINE MALEATE 10 MG TAB PO PRN (20:24)
[2024-02-23] MEDS ORDERED: ACETAMINOPHEN 325 MG TAB PO PRN (20:24)
[2024-02-23] MEDS ORDERED: POLYETHYLENE (MIRALAX) 17 GM PACK PO PRN (20:24)
--- NOTE | 2024-02-23 20:33 | Urology Consultation ---
<Statement entered by Miguel Hale MD - 02/24/24 08:20> I have discussed Mr. Chaudhari' case with Chico Sibley PA-C and agree with the above documentation. Would recommend continuing to monitor urine output. Okay to hand irrigate to remove obstructions/clots if these develop. If this becomes a recurrent problem, would be reasonable to initiate continuous bladder irrigation. There is a chance that the stents are irritating the raw surfaces in the bladder and causing further bleeding. Depending on clinical course, may be worth considering conversion to nephrostomy tubes. Urology will follow along -Miguel Hale MD. Date of Consultation February 23, 2024 Assessment & Plan (1) Hematuria: The patient has been admitted to the hospital service. From a urologic perspective we recommend the following: In the emergency department the patient had his Velasquez catheter repositioned by nursing staff and then the catheter was able to be flushed and irrigated and the patient notes complete relief of his symptoms. At the present time he is also asymptomatic. His Velasquez catheter appears to be draining and is patent. If the catheter becomes clogged manual flushing and irrigation times can be employed by the nursing staff Serial labs should be followed with transfusions to be provided as clinically indicated Will be preferable for patient to hold his Plavix until his hematuria clears Additional recommendations will be forthcoming based on his clinical course as it unfolds History of Present Illness Reason for Consultation: Hematuria Attending Physician: Sia Vergara MD History of Present Illness This is a 63-year-old male with an underlying history of prostate cancer. He r ecently underwent a urologic procedure by Dr. Octavio Chaudhari of [facility]. The patient is known to have prostate cancer with metastases to his bone and he underwent a cystoscopy with urethral and meatal dilatation as well as bilateral ureteral stent placements as well as transurethral resection of a prostate mass and transurethral resection of a large bladder tumor on 02/18/2024. Patient notes that he was discharged home with a Velasquez catheter in place. The patient notes that he was having significant abdominal/suprapubic discomfort earlier today as his catheter st opped draining. He was unable to alleviate this problem at home so he presented to the emergency department. Patient denies any fevers, shakes, or chills. He denies any nausea or vomiting. The patient notes that he was taking Plavix as an outpatient but he stopped this medication several days ago. He notes that he has not resumed this medication as of this date. Since arrival to the hospital the patient has had labs and imaging which independent reviewed. The patient had a renal ultrasound that showed a distended bladder with complex material in the bladder concerning for blood products. The patient was noted to have moderate right and mild to moderate left hydronephrosis with bilateral ureteral stents in place. CT scan of the head showed no acute intracranial findings. Labs included CBC were white blood cell count was normal. His platelet count is 103,000. Hemoglobin and hematocrit are 7.8 and 24.6. Coagulation studies showed an INR of 1.2. Chemistry profile showed sodium and potassium and BUN were normal. His creatinine had a slight elevation at 1.5. (Review of records show that this is near his baseline level of creatinine) At the time of my interview the patient was resting comfortably in bed he was in no distress. Allergies Allergy/AdvReac Type Severity Reaction Status Date / Time amoxicillin [From Augmentin] AdvReac Intermediate DIZZINESS/C Verified 02/23/24 18:02 ONFUSION clavulanic acid AdvReac Intermediate DIZZINESS/C Verified 02/23/24 18:02 [From Augmentin] ONFUSION codeine AdvReac Intermediate Gastrointestinal Verified 02/23/24 18:02 Upset Home Medications Medication Instructions Recorded Confirmed Type atorvastatin 80 mg tablet 80 mg PO QPM 04/23/19 02/23/24 History empagliflozin 25 mg tablet 25 mg PO QAM 05/31/21 02/23/24 History (Jardiance) aspirin 81 mg tablet,delayed 81 mg PO QAM #30 tabs 06/03/21 02/23/24 Rx release acetaminophen 500 mg tablet 500 - 1,000 mg PO Q6H PRN Pain 12/06/22 02/23/24 History (Tylenol Extra Strength) clopidogrel 75 mg tablet 75 mg PO QAM 12/06/22 02/23/24 History denosumab 120 mg/1.7 mL (70 mg/mL) 120 mg subcut MONTHLY 12/06/22 02/23/24 History subcutaneous solution (Xgeva) linagliptin 5 mg tablet (Tradjenta) 5 mg PO QAM 12/06/22 02/23/24 History sacubitril 24 mg-valsartan 26 mg 1 tab PO BID 12/06/22 02/23/24 History tablet (Entresto) tramadol 50 mg tablet 150 mg PO BID pain 08/01/23 02/23/24 History morphine 15 mg immediate release 15 mg PO BID PRN Pain 01/11/24 02/23/24 History tablet ondansetron HCl 8 mg tablet 8 mg PO DIRECTED PRN Nausea 01/11/24 02/23/24 History potassium phosphate, monobasic 500 500 mg PO BID 01/11/24 02/23/24 History mg soluble tablet (K-Phos Original) prochlorperazine maleate 10 mg 10 mg PO DIRECTED PRN Nausea 01/11/24 02/23/24 History tablet morphine 15 mg tablet,extended 15 mg PO DAILY PRN Pain 02/15/24 02/23/24 History release calcitriol 0.25 mcg capsule 1 mcg (4 x 0.25 mcg) PO QAM #120 02/22/24 02/23/24 Rx caps calcium carbonate (Tums) 1,500 mg (7.5 x 200 mg calcium 02/22/24 02/23/24 Rx (500 mg)) PO TID #360 tabs cyanocobalamin (vitamin B-12) 500 1,000 mcg (2 x 500 mcg) PO QAM #60 02/22/24 02/23/24 Rx mcg tablet tabs ergocalciferol (vitamin D2) 1,250 1,250 mcg PO DAILY #30 caps 02/22/24 02/23/24 Rx mcg (50,000 unit) capsule ferrous sulfate 325 mg (65 mg 325 mg PO QAM #30 tabs 02/22/24 02/23/24 Rx iron) tablet,delayed release lidocaine HCl 2 % mucosal jelly in 1 ml EXT BID #125 mL 02/22/24 02/23/24 Rx applicator magnesium chloride 64 mg 64 mg PO BID #60 tabs 02/22/24 02/23/24 Rx (magnesium chloride) tablet,delayed release (Mag 64) metoprolol tartrate 25 mg tablet 12.5 mg (1/2 x 25 mg) PO BID #30 02/22/24 02/23/24 Rx tabs tamsulosin 0.4 mg capsule 0.4 mg PO QAM #30 caps 02/22/24 02/23/24 Rx Patient History Medical History History of left heart catheterization (LHC) "cardiac cath 10-20% block" Stroke Surgical History History of left common carotid artery stent placement Family History Mother , in her 80s Myocardial infarction H/O cardiac surgery Diabetes Father , 58yo Myocardial infarction Lung disease From working in [employer]; Brother No problems noted. Brother No problems noted. Brother No problems noted. Brother No problems noted. Brother No problems noted. Daughter No problems noted. Son No problems noted. Son Diabetes Other Heart disease Hypertension Social History Smoking Status: Current every day smoker Tobacco Type: Cigarettes packs per day: 0.5; Cigarettes Per Day: pack per day; Second Hand Exposure: No; Do You Dip or Chew Tobacco: No; Tobacco Cessation Education Requested by Patient: No Hx Alcohol Use: Yes Alcohol type: beer Alcohol Intake Frequency: Monthly or Less Hx Substance Use: Yes Prescribed Medications: Marijuana Last Used Substance: Just Prior to Arrival Last Used Substance Other:: marijuana 01/10 Preferred Language: Slovenian Communication Ability: Effective Visual Impairment: No Limitations Hearing Ability: Normal 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 Beliefs That Will Affect Care: None marital status: Current Living Situation: Spouse Current Living Situation Comment: , daughter/her spouse current occupational status: retired Other Information That Helps Us Care for You: No Feels Safe at Home: Yes Safety Concerns: Feels Safe At This Time Diet: regular caffeine: No during the past year weight has: decreased > 10 lbs Assistive Devices: None Review of Systems Review of Systems: All systems reviewed & are unremarkable except as noted in HPI & below Physical Exam Constitutional: no acute distress Eyes: no conjunctival abnormality ENMT: Ears: no hearing impairment Neck: trachea midline Respiratory: normal respiratory effort; no respiratory distress and no labored breathing Cardiovascular: Rate/Rhythm: regular rate and regular rhythm Gastrointestinal (Abdomen): Abdomen is soft and nondistended. There is no pain with palpation, specifically no suprapubic discomfort with palpation Musculoskeletal: No calf tenderness Skin: no rashes Neurologic: moves all extremities Psychiatric: A+Ox3, euthymic affect Velasquez catheter is in place draining mckeon colored urine. The Velasquez catheter appears patent with no visible clots in the tubing at this time. There is no CVA tenderness at this time bilaterally. Results & Data Vital Signs (Past 12 Hours) Vital Signs Temp Pulse Pulse Resp BP BP Pulse Ox 02/23/24 19:21 96 H 29 H 119/76 97 02/23/24 18:30 100 H 13 02/23/24 18:00 111 H 02/23/24 17:51 106 H 14 121/81 98 02/23/24 16:30 02/23/24 16:30 36.6 C 140 H 14 141/99 H 99 O2 Del Method 02/23/24 19:21 Room Air 02/23/24 18:30 Room Air 02/23/24 18:00 02/23/24 17:51 Room Air 02/23/24 16:30 Room Air 02/23/24 16:30 Room Air PG Care Time/CCT Total # of Minutes Spent Total Time Spent with Patient: Total time spent is greater than 50% in coordination of care (as documented) at patient's floor/unit and/or counseling patient: Coding Level of Care Code 76987 IN/OBS CONSULT LVL 4,60M Diagnoses Hematuria R31.9 Hematuria type: unspecified type (1) Hematuria Hematuria type: unspecified type Qualified Code(s): R31.9 - Hematuria, unspecified
[2024-02-23] MEDS: INSULIN ASPART PER UNIT CHARGE SC SCH (21:04)
[2024-02-23] MEDS: ATORVASTATIN 40 MG TAB PO SCH (21:08)
[2024-02-23] MEDS: CALCIUM CARBONATE 500 MG CHEWABLE TAB PO SCH (21:09)
[2024-02-23] MEDS: MAGNESIUM CHLORIDE W/CALCIUM 64MG DELAYED REL TAB PO SCH (21:09)
[2024-02-23] MEDS: METOPROLOL TARTRATE 25 MG TAB PO SCH (21:09)
[2024-02-23] MEDS: LIDOCAINE 2% JELLY 5 ML TUBE EXT SCH (21:10)
[2024-02-23] MEDS: POT PHOSPHATE MONOBASIC W/ SOD TAB PO SCH (21:23)
[2024-02-23] MEDS: traMADol HCL 50 MG TABLET PO SCH (22:41)
[2024-02-24 06:44] LABS: Hematocrit (blood only) 19.8 % (42.0-52.0); Hemoglobin 6.2 g/dl (14.0-18.0)
[2024-02-24 06:48] LABS: Mean Corpuscular Hemoglobin 29.2 pg (25.0-34.0); Mean Corpuscular Hgb Conc 31.3 g/dL (32.0-36.0); Mean Corpuscular Volume 93.4 fL (80.0-100.0); Mean Platelet Volume 9.7 fL (9.4-12.4); Nucleated RBC # (auto) 0.03 K/uL (0.00-0.12); Nucleated RBC % (auto) 0.8 %; Platelet Count 92 K/uL (130-400); RDW Coefficient of Variation 17.3 % (11.5-14.5); RDW Standard Deviation 59.7 fL (36.4-46.3); Red Blood Count 2.12 M/uL (4.70-6.10); White Blood Count 3.97 K/ul (4.8-10.8)
[2024-02-24] MEDS ORDERED: SODIUM CHLORIDE 0.9% 250 ML IV PRN (07:16)
[2024-02-24 07:17] LABS: BUN Creatinine Ratio 13.5 (10-20); Calcium 5.4 mg/dl (8.6-10.3); Creatinine Clr Calc Pharmacy 47.5 ml/min; Est GFR (Non-African American) 56.1 ml/min
--- NOTE | 2024-02-24 08:05 | Hospitalist Progress Note ---
Date of Service February 24, 2024 Assessment & Plan (1) Anemia: (2) Complication of Rain catheter: (3) Hematuria: (4) Hypocalcemia syndrome: (5) History of CVA (cerebrovascular accident): (6) HFrEF (heart failure with reduced ejection fraction): (7) Pancytopenia due to chemotherapy: (8) Prostate cancer metastatic to bone: (9) HLD (hyperlipidemia): (10) HTN (hypertension): (11) DM2 (diabetes mellitus, type 2): (12) PAD (peripheral artery disease): (13) BPH with obstruction/lower urinary tract symptoms: Admission and Anticipated Discharge Date Admission Date: February 23, 2024 Supervising Physician Co-Signing Physician Notes Mr. Chaudhari is a 63 yr male with H/O Metastatic prostate cancer on chemotherapy, type 2 diabetes, PAD, HFrEF, hypertension, CKD 3, history of CVA, tobacco use disorder and other medical problems listed below who is admitted for clotting of rain. Patient with hematuria s/p TURP on 02/17, with stable anemia. Patient discharged and rain continued to clot at home prompting presentation. Patient with persistent hematuria and now hgb at 6.2 this am. #Acute on Chronic anemia, multifactorial POA #Pancytopenia--POA Likely secondary to chemotherapy/Bone marrow suppression, B12 and Iron deficiency In setting of ongoing prostate cancer chemotherapy Currently hematuria contributing as well --S/P 2 units PRBCs on admission, 1 UPRBC 02/18 post operatively Now 1 UPRBC 02/23 this am Platelet count stable Continue Iron and Vitamin B12 supplements Hold plavix, continue asa Transfuse HH <7 Repeat cbc this afternoon #hematuria #Recent obstructive uropathy s/p TURP #Adenocarcinoma prostate, bladder involvement #Metastatic prostate cancer Ongoing cancer treatment, previously on chemo (discontinued in November), received first dose of Pluvicto treatment at [facility], received for the first time 01/03/22 but subsequent treatment was postponed due to anemia -Continue rain Consult Urology -CTM -Continue to hold plavix continue tamsulosin # CKDIII Baseline Cr~ 1.3, baseline this morning Recent CARLA suspected to be 2/2 Renal toxicity listed as side effect from Plucivto; Obstructive uropathy, atrophic kidney contributing as well Continue to hold Entresto, Jardiance until told to resume otherwise Encouraged po Monitor renal function Avoid nephrotoxic agents as able #NSVT #PVCs Monitor and replace electrolytes as as needed Increase Metorpolol 25 BID continue telemetry #Hypocalcemia #Hypophosphatemia #Hypokalemia POA Continue Calcitrol 1mcg Continue Tums 1500mg TID Continue slow mag Continue VIt D2 39598 unit daily IV replacement with CA today and PO/IV K BMP this afternoon #HFmrEF ECHO from Aug 2023 shows EF 48% (improved from previous), no valvular abnormalities Hold Entresto, Continue statin #DMTII HbA1c 6.3 in November 2023 Hold home agents Continue insulin while hospitalized Monitor BGs #PAD Continue aspirin, statin Resume Plavix as able aturia #Prior CVA Continue aspirin Statin Resume Plavix as able #Severe protein calorie malnutrition Weight loss, poor po intake, malignancy BMI now 20.0 (75 kilos in 08/2023, now 59 kilos) nutrition consult #Tobacco use disorder 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 Subjective NAEO Patient states he feels fine, but understands his blood level has dropped Denies palpitations, chest pain, or other acute concerns Agreeable to transfusion this am Physical Exam Constitutional: WD/WN, vitals as above Results & Data Results & Data Vital Signs (Past 12 Hours) Vital Signs Temp Pulse Pulse Pulse Resp BP Pulse Ox 02/24/24 07:57 02/24/24 07:00 85 02/24/24 03:31 36.7 C 89 16 104/58 L 98 02/23/24 23:30 78 02/23/24 22:29 36.7 C 83 14 114/69 98 02/23/24 21:43 94 H 02/23/24 20:00 36.9 C 94 H 18 115/77 98 O2 Del Method 02/24/24 07:57 Room Air 02/24/24 07:00 02/24/24 03:31 Room Air 02/23/24 23:30 02/23/24 22:29 Room Air 02/23/24 21:43 02/23/24 20:00 Room Air Laboratory Results Short CBC 02/23/24 02/24/24 Range/Units 16:57 05: WBC 5.19 3.97 L (4.8-10.8) K/ul Hgb 7.8 L 6.2 L* (14.0-18.0) g/dl Hct 24.6 L 19.8 L* (42.0-52.0) % Plt Count 103 L 92 L (130-400) K/uL BMP 02/23/24 02/24/24 16:57 05:23 Sodium 138 143 Potassium 3.6 3.0 L Chloride 105 110 H Carbon Dioxide 16 L 24 BUN 20 18 Creatinine 1.50 H 1.33 Glucose 221 H 99 Calcium 6.5 L 5.4 L* Liver Function 02/23/24 Range/Units 16:57 Total Bilirubin 0.6 (0.2-1.0) mg/dl AST 53 H (13-39) U/L ALT 8 (7-52) U/L Alkaline Phosphatase 466 H (34-104) U/L Albumin 3.1 L (3.4-5.0) gm/dl Urine 02/23/24 Range/Units 18:00 Urine Color See Comment Urine Appearance Cloudy A (Clear) Urine pH Not Reportable Ur Specific [place] 1.017 (1.000-1.030) Urine Protein Not Reportable Urine Glucose (UA) Not Reportable Medications Administered Home Medications Medication Instructions Recorded Confirmed Last Taken atorvastatin 80 mg tablet 80 mg PO QPM 04/23/19 02/23/24 02/22/24 empagliflozin 25 mg tablet 25 mg PO QAM 05/31/21 02/23/24 02/15/24 (Jardiance) aspirin 81 mg tablet,delayed 81 mg PO QAM #30 tabs 06/03/21 02/23/24 02/23/24 release acetaminophen 500 mg tablet 500 - 1,000 mg PO Q6H PRN Pain 12/06/22 02/23/24 Unknown (Tylenol Extra Strength) clopidogrel 75 mg tablet 75 mg PO QAM 12/06/22 02/23/24 02/15/24 denosumab 120 mg/1.7 mL (70 mg/mL) 120 mg subcut MONTHLY 12/06/22 02/23/24 2 Months Ago subcutaneous solution (Xgeva) ~12/16/23 linagliptin 5 mg tablet (Tradjenta) 5 mg PO QAM 12/06/22 02/23/24 02/23/24 sacubitril 24 mg-valsartan 26 mg 1 tab PO BID 12/06/22 02/23/24 02/15/24 tablet (Entresto) tramadol 50 mg tablet 150 mg PO BID pain 08/01/23 02/23/24 02/23/24 08:00 morphine 15 mg immediate release 15 mg PO BID PRN Pain 01/11/24 02/23/24 02/14/24 tablet ondansetron HCl 8 mg tablet 8 mg PO DIRECTED PRN Nausea 01/11/24 02/23/24 Unknown potassium phosphate, monobasic 500 500 mg PO BID 01/11/24 02/23/24 02/23/24 08:00 mg soluble tablet (K-Phos Original) prochlorperazine maleate 10 mg 10 mg PO DIRECTED PRN Nausea 01/11/24 02/23/24 Unknown tablet morphine 15 mg tablet,extended 15 mg PO DAILY PRN Pain 02/15/24 02/23/24 02/14/24 release calcitriol 0.25 mcg capsule 1 mcg (4 x 0.25 mcg) PO QAM #120 02/22/24 02/23/24 02/23/24 caps calcium carbonate (Tums) 1,500 mg (7.5 x 200 mg calcium 02/22/24 02/23/24 02/23/24 08:00 (500 mg)) PO TID #360 tabs cyanocobalamin (vitamin B-12) 500 1,000 mcg (2 x 500 mcg) PO QAM #60 02/22/24 02/23/24 02/23/24 mcg tablet tabs ergocalciferol (vitamin D2) 1,250 1,250 mcg PO DAILY #30 caps 02/22/24 02/23/24 02/23/24 mcg (50,000 unit) capsule ferrous sulfate 325 mg (65 mg 325 mg PO QAM #30 tabs 02/22/24 02/23/24 02/23/24 iron) tablet,delayed release lidocaine HCl 2 % mucosal jelly in 1 ml EXT BID #125 mL 02/22/24 02/23/24 02/23/24 08:00 applicator magnesium chloride 64 mg 64 mg PO BID #60 tabs 02/22/24 02/23/24 02/23/24 08:00 (magnesium chloride) tablet,delayed release (Mag 64) metoprolol tartrate 25 mg tablet 12.5 mg (1/2 x 25 mg) PO BID #30 02/22/24 02/23/24 02/23/24 08:00 tabs tamsulosin 0.4 mg capsule 0.4 mg PO QAM #30 caps 02/22/24 02/23/24 02/23/24 Active Medications Generic Name Dose Route Start Last Admin Trade Name Dianne PRN Reason Stop Dose Admin Atorvastatin Calcium 80 mg 02/23/24 21:00 02/23/24 21:08 Atorvastatin 40 Mg Tab PO 03/24/24 20:59 80 mg QPM GENIA Administration Calcium Carbonate 1,500 mg 02/23/24 21:00 02/23/24 21:09 Calcium Carbonate 500 Mg Chewable Tab PO 03/24/24 20:59 1,500 mg TID GENIA Administration Insulin Aspart 0 units 02/23/24 19:40 02/23/24 21:09 Insulin Aspart Per Unit Charge SC 03/24/24 19:39 Not Given ACHS GENIA Lidocaine HCl 1 ml 02/23/24 21:00 02/23/24 21:10 Lidocaine 2% Jelly 5 Ml Tube EXT 03/24/24 20:59 1 ml BID GENIA Administration Magnesium Chloride 64 mg 02/23/24 21:00 02/23/24 21:09 Magnesium Chloride W/Calcium 64mg Delayed Rel Tab PO 03/24/24 20:59 64 mg BID GENIA Administration Potassium Phosphate 2 tab 02/23/24 21:00 02/23/24 21:23 Pot Phosphate Monobasic W/ Sod Tab PO 03/24/24 20:59 2 tab BID GENIA Administration Tramadol HCl 150 mg 02/23/24 21:00 02/23/24 22:41 Tramadol Hcl 50 Mg Tablet PO 03/24/24 20:59 Not Given BID GENIA (1) Anemia Anemia type: unspecified type Qualified Code(s): D64.9 - Anemia, unspecified (2) Complication of Rain catheter Encounter type: initial encounter Qualified Code(s): T83.9XXA - Unspecified complication of genitourinary prosthetic device, implant and graft, initial encounter (3) Hematuria Hematuria type: unspecified type Qualified Code(s): R31.9 - Hematuria, unspecified
[2024-02-24] MEDS: POTASSIUM CHLORIDE / WTR 10 MEQ/100 ML PLCT IV SCH (08:14)
[2024-02-24] MEDS: POTASSIUM CHLORIDE CRTAB 20 MEQ TABCR PO SCH (08:15)
[2024-02-24] MEDS: FERROUS SULFATE 325 MG TAB PO SCH (08:16)
[2024-02-24] MEDS: METOPROLOL TARTRATE 25 MG TAB PO SCH (08:16)
[2024-02-24] MEDS: CALCITRIOL 0.25 MCG CAPSULE PO SCH (08:16)
[2024-02-24] MEDS: ASPIRIN 81 MG ECTAB PO SCH (08:16)
[2024-02-24] MEDS: CYANOCOBALAMIN (B-12) 500 MCG TABLET PO SCH (08:16)
[2024-02-24] MEDS: ERGOCALCIFEROL 1250 MCG (50,000 UNITS) CAP PO SCH (08:16)
[2024-02-24] MEDS: TAMSULOSIN HCL 0.4 MG CAP PO SCH (08:17)
[2024-02-24] MEDS: CALCIUM GLUCONATE 1,000 MG/60 ML BAG IV SCH (08:30)
--- NOTE | 2024-02-24 09:21 | Urology Progress Note ---
Date of Service February 24, 2024 Assessment & Plan (1) Prostate cancer metastatic to bone: Plan: Advanced metastatic prostate cancer, has failed hormonal therapy, first-line chemotherapy and is now on more experimental therapy with radiopharmaceutical infusions. He had 1 dose of this and tolerated it poorly. He has expressed that he wants to maximize quality of life, therefore may benefit from palliative care discussion to help define what that entails. (2) Hematuria: Plan: Hematuria seems most likely related to dysplastic tissue in the bladder and raw surfaces from recent resection. This may be further irritated by having the indwelling stents in place. Since his current catheter is draining, would recommend that he stay well-hydrated, hand irrigate the catheter if needed for clots. If catheter becomes clogged more more frequently, could consider upsizing to a larger catheter, possibly a three-way hematuria catheter to initiate CBI. For now, would hold off repeat surgical intervention as cauterizing any of this dysplastic tissue would likely only be a temporizing measure. Urine culture is pending. If this comes back with an infection, would treat with culture specific antibiotics (3) Bilateral hydronephrosis: Plan: Bilateral hydronephrosis currently addressed with ureteral stents. If the stents continue to irritate the bladder and cause hematuria, he may be a candidate for bilateral nephrostomy tubes. (4) Anemia: Plan: Most likely acute blood loss anemia in the setting of ongoing hematuria. There may be a dilutional component as well. Agree with transfusion and supportive care. Admission and Anticipated Discharge Date Admission Date: February 23, 2024 Subjective Feeling okay this morning, denies any pain Had some bladder pressure earlier, at which point bladder scan showed about 100 cc. Subsequently was able to empty catheter and pressure resolved. Urine remains bloody Hemoglobin 6.2 on 02/23, planning on receiving blood transfusion. Calcium and potassium both low on labs, replenishing. Urinalysis from 02/22 with no nitrites or leukocyte esterase, no bacteria seen. Urine culture is pending Renal/bladder ultrasound from 02/22 demonstrating stents in good position, mild persistent hydro on the right side. Likely some intraluminal debris in the bladder consistent with clot. Physical Exam Physical Exam: Frail-appearing, NAD Genitourinary: Velasquez catheter in place draining bloody urine, no obvious clots in the line. Results & Data Vital Signs (Past 12 Hours) Vital Signs Temp Pulse Pulse Resp BP Pulse Ox O2 Del Method 02/24/24 08:17 36.9 C 112 H 18 109/74 98 Room Air 02/24/24 07:57 Room Air 02/24/24 07:00 85 02/24/24 03:31 36.7 C 89 16 104/58 L 98 Room Air 02/23/24 23:30 78 02/23/24 22:29 36.7 C 83 14 114/69 98 Room Air 02/23/24 21:43 94 H PG Care Time/CCT Total # of Minutes Spent Total Time Spent with Patient: Total time spent is greater than 50% in coordination of care (as documented) at patient's floor/unit and/or counseling patient: Coding Level of Care Code 45544 SUB INP/OBS CARE 2/35MIN Diagnoses Prostate cancer metastatic to bone C61; C79.51 Hematuria R31.9 Hematuria type: unspecified type Bilateral hydronephrosis N13.30 Anemia D64.9 Anemia type: unspecified type (2) Hematuria Hematuria type: unspecified type Qualified Code(s): R31.9 - Hematuria, unspecified (4) Anemia Anemia type: unspecified type Qualified Code(s): D64.9 - Anemia, unspecified
[2024-02-24] MEDS ORDERED: Nursing to Pharmacy Communication SCH (09:45)
[2024-02-24] MEDS: MoRPHine SULFATE IR 15 MG TAB (IMMEDIATE RELEASE) PO PRN (14:42)
[2024-02-24 16:13] LABS: Hematocrit (blood only) 25.1 % (42.0-52.0); Hemoglobin 8.2 g/dl (14.0-18.0); Mean Corpuscular Hemoglobin 29.4 pg (25.0-34.0); Mean Corpuscular Hgb Conc 32.7 g/dL (32.0-36.0); Mean Platelet Volume 9.1 fL (9.4-12.4); Nucleated RBC # (auto) 0.03 K/uL (0.00-0.12); Nucleated RBC % (auto) 0.5 %; Platelet Count 94 K/uL (130-400); RDW Coefficient of Variation 19.4 % (11.5-14.5); RDW Standard Deviation 63.8 fL (36.4-46.3); Red Blood Count 2.79 M/uL (4.70-6.10)
[2024-02-24 16:30] LABS: Calcium 6.6 mg/dl (8.6-10.3); Creatinine Clr Calc Pharmacy 44.1 ml/min; Est GFR (African American) 59.6 ml/min; Est GFR (Non-African American) 51.4 ml/min
[2024-02-25 05:55] LABS: Hematocrit (blood only) 24.1 % (42.0-52.0); Hemoglobin 7.6 g/dl (14.0-18.0); Mean Corpuscular Hemoglobin 28.6 pg (25.0-34.0); Mean Corpuscular Hgb Conc 31.5 g/dL (32.0-36.0); Mean Corpuscular Volume 90.6 fL (80.0-100.0); Mean Platelet Volume 9.4 fL (9.4-12.4); Nucleated RBC # (auto) 0.02 K/uL (0.00-0.12); Nucleated RBC % (auto) 0.4 %; Platelet Count 82 K/uL (130-400); RDW Coefficient of Variation 19.7 % (11.5-14.5); RDW Standard Deviation 65.7 fL (36.4-46.3); Red Blood Count 2.66 M/uL (4.70-6.10); White Blood Count 4.49 K/ul (4.8-10.8)
[2024-02-25 06:07] LABS: BUN Creatinine Ratio 14.2 (10-20); Calcium 7.2 mg/dl (8.6-10.3); Creatinine Clr Calc Pharmacy 47.1 ml/min; Est GFR (African American) 64.4 ml/min; Est GFR (Non-African American) 55.6 ml/min; Potassium 4.4 mmol/L (3.5-5.1)
--- NOTE | 2024-02-25 09:17 | Urology Progress Note ---
Date of Service February 25, 2024 Assessment & Plan (1) Anemia: (2) Hematuria: (3) Prostate cancer metastatic to bone: Plan Anemia responded appropriately to blood transfusion, but with ongoing hematuria, hemoglobin is drifting down again. He is asymptomatic at this time, no would recommend we continue with supportive care. With the prostate cancer essentially growing through the wall into the bladder, most of this tissue is going to be dysplastic. There is little role for cystoscopy and cauterization as the hematuria will simply recur. Other options would include placement of bilateral nephrostomy tubes to divert the urine away from the bladder, or alternatively to consider palliative radiation to the bladder. Of these options, he seemed potentially more interested in radiation. Would consider consultation/discussion with radiation oncology. He has also expressed maximizing his quality of life with the time he is remaining. Ideally he would like to be out of the hospital. Would consider consultation with palliative care as well. Urology will follow along Admission and Anticipated Discharge Date Admission Date: February 23, 2024 Subjective Feeling well, no fevers or chills, no nausea or vomiting Catheter has been draining well without any clots, denies any bladder pressure, has not needed hand irrigation Received transfusion yesterday with appropriate response, but hemoglobin drifting down again. Urine culture with no growth Physical Exam Physical Exam: Chronically ill appearing, NAD Genitourinary: Catheter with bloody urine draining, no obvious clots. Results & Data Vital Signs (Past 12 Hours) Vital Signs Temp Pulse Pulse Resp BP Pulse Ox O2 Del Method 02/25/24 08:18 92 H 02/25/24 07:36 36.6 C 99 H 16 128/81 100 Room Air 02/25/24 03:58 36.7 C 88 16 120/75 98 Room Air 02/24/24 23:24 81 02/24/24 23:03 36.9 C 71 16 104/66 98 Room Air PG Care Time/CCT Total # of Minutes Spent Total Time Spent with Patient: Total time spent is greater than 50% in coordination of care (as documented) at patient's floor/unit and/or counseling patient: Coding Level of Care Code 07170 SUB INP/OBS CARE 2/35MIN Diagnoses Anemia D64.9 Anemia type: unspecified type Hematuria R31.9 Hematuria type: unspecified type Prostate cancer metastatic to bone C61; C79.51 (1) Anemia Anemia type: unspecified type Qualified Code(s): D64.9 - Anemia, unspecified (2) Hematuria Hematuria type: unspecified type Qualified Code(s): R31.9 - Hematuria, unspecified
[2024-02-25] MEDS: LORazepam 0.5 MG in SYRINGE 0.25 ML IV STA (11:15)
--- NOTE | 2024-02-25 13:35 | Hospitalist Progress Note ---
Date of Service February 25, 2024 Assessment & Plan (1) Anemia: (2) Complication of Rain catheter: (3) Hematuria: (4) Hypocalcemia syndrome: (5) History of CVA (cerebrovascular accident): (6) HFrEF (heart failure with reduced ejection fraction): (7) Pancytopenia due to chemotherapy: (8) Prostate cancer metastatic to bone: (9) HLD (hyperlipidemia): (10) HTN (hypertension): (11) DM2 (diabetes mellitus, type 2): (12) PAD (peripheral artery disease): (13) BPH with obstruction/lower urinary tract symptoms: Plan Mr. Chaudhari is a 63 yr male with H/O Metastatic prostate cancer on chemotherapy, type 2 diabetes, PAD, HFrEF, hypertension, CKD 3, history of CVA, tobacco use disorder and other medical problems listed below who is admitted for clotting of rain. Patient with hematuria s/p TURP on 02/17, with stable anemia. Patient discharged and rian continued to clot at home prompting presentation. Patient with persistent hematuria and hgb at 6.2 on 02/23 now s/p 1 UPRBC. Patient responded appropriately, however, hgb continues to down trend. Urology discussed options per note with patient: radiation v nephrostomy tubes to divert urine from bladder. Consulting Rad/Onc for eval. Patient with notable anxiety. Prior Code status discussions and GoC non-congruen t--patient makes statements like he "just wants to be home" and "is so tired", intially contemplated DNR status but did not want to commit to a decision. Reports no prior POLST discussions ever being had. Requesting Pallitive consult to help direct conversations and GoC with patient given invasive prostate cancer. #Acute on Chronic anemia, multifactorial POA #Pancytopenia--POA Likely secondary to chemotherapy/Bone marrow suppression, B12 and Iron deficiency In setting of ongoing prostate cancer chemotherapy Currently hematuria contributing as well --S/P 2 units PRBCs on admission, 1 UPRBC 02/18 post operatively Now 1 UPRBC 02/23, appropriate response Platelet count stable Continue Iron and Vitamin B12 supplements Hold plavix, continue asa Transfuse HH <7 CBC in am #hematuria #Recent obstructive uropathy s/p TURP #Adenocarcinoma prostate, bladder involvement #Metastatic prostate cancer Ongoing cancer treatment, previously on chemo (discontinued in November), received first dose of Pluvicto [place] [facility] [place] for the first time 01/03/22 but subsequent treatment was postponed due to anemia -Continue rain Consult Urology -CTM -Continue to hold plavix continue tamsulosin Discussion of radiation v nephrostomy tubes -Plan for Rad/Onc consult Palliative care consult # CKDIII Baseline Cr~ 1.3, baseline this morning Recent CARLA suspected to be 2/2 Renal toxicity listed as side effect from Plucivto; Obstructive uropathy, atrophic kidney contributing as well Continue to hold Entresto, Jardiance until told to resume otherwise Encouraged po Monitor renal function Avoid nephrotoxic agents as able #NSVT #PVCs Monitor and replace electrolytes as as needed Continue Metoprolol 25 BID continue telemetry #Hypocalcemia #Hypophosphatemia #Hypokalemia POA Continue Calcitrol 1mcg Continue Tums 1500mg TID Continue slow mag Continue VIt D2 32870 unit daily continue aggressive replacement of lytes #HFmrEF ECHO from Aug 2023 shows EF 48% (improved from previous), no valvular abnormalities Hold Entresto, Continue statin #DMTII HbA1c 6.3 in November 2023 Hold home agents Continue insulin while hospitalized Monitor BGs #PAD Continue aspirin, statin Resume Plavix as able #Prior CVA Continue aspirin Statin Resume Plavix as able #Severe protein calorie malnutrition Weight loss, poor po intake, malignancy BMI now 20.0 (75 kilos in 08/2023, now 59 kilos) nutrition consult #Tobacco use disorder Refuses nicotine patch Medical Care Administrator to quit smoking DVT scd admit med tele I spent a total of 60 minutes coordinating, documenting, and providing care for this patient excluding time spent in the performance of separately billed services. Admission and Anticipated Discharge Date Admission Date: February 23, 2024 Subjective Patient tearful and anxious at bedside--conflicted about progress. States he wants to do everything, but he also wants to be "in a coma" He describes overwhelming anxiety Physical Exam Constitutional: WD/WN, vitals as above Respiratory: normal respiratory effort, lungs clear to auscultation Cardiovascular: RRR, no murmur, no edema Gastrointestinal (Abdomen): soft, NTND Rain in place, gross hematuria Results & Data Results & Data Vital Signs (Past 12 Hours) Vital Signs Temp Pulse Pulse Resp BP BP Pulse Ox 02/25/24 11:17 36.4 C L 84 13 124/77 97 02/25/24 08:18 92 H 02/25/24 07:36 36.6 C 99 H 16 128/81 100 02/25/24 03:58 36.7 C 88 16 120/75 98 O2 Del Method 02/25/24 11:17 Room Air 02/25/24 08:18 02/25/24 07:36 Room Air 02/25/24 03:58 Room Air Laboratory Results Short CBC 02/24/24 02/25/24 Range/Units 15:49 05:04 WBC 5.50 4.49 L (4.8-10.8) K/ul Hgb 8.2 L 7.6 L (14.0-18.0) g/dl Hct 25.1 L 24.1 L (42.0-52.0) % Plt Count 94 L 82 L (130-400) K/uL BMP 02/24/24 02/25/24 15:49 05:04 Sodium 141 138 Potassium 4.0 D 4.4 Chloride 108 H 109 H Carbon Dioxide 23 23 BUN 20 19 Creatinine 1.43 H 1.34 Glucose 103 H 102 H Calcium 6.6 L 7.2 L Medications Administered Home Medications Medication Instructions Recorded Confirmed Last Taken atorvastatin 80 mg tablet 80 mg PO QPM 04/23/19 02/23/24 02/22/24 empagliflozin 25 mg tablet 25 mg PO QAM 05/31/21 02/23/24 02/15/24 (Jardiance) aspirin 81 mg tablet,delayed 81 mg PO QAM #30 tabs 06/03/21 02/23/24 02/23/24 release acetaminophen 500 mg tablet 500 - 1,000 mg PO Q6H PRN Pain 12/06/22 02/23/24 Unknown (Tylenol Extra Strength) clopidogrel 75 mg tablet 75 mg PO QAM 12/06/22 02/23/24 02/15/24 denosumab 120 mg/1.7 mL (70 mg/mL) 120 mg subcut MONTHLY 12/06/22 02/23/24 2 Months Ago subcutaneous solution (Xgeva) ~12/16/23 linagliptin 5 mg tablet (Tradjenta) 5 mg PO QAM 12/06/22 02/23/24 02/23/24 sacubitril 24 mg-valsartan 26 mg 1 tab PO BID 12/06/22 02/23/24 02/15/24 tablet (Entresto) tramadol 50 mg tablet 150 mg PO BID pain 08/01/23 02/23/24 02/23/24 08:00 morphine 15 mg immediate release 15 mg PO BID PRN Pain 01/11/24 02/23/24 02/14/24 tablet ondansetron HCl 8 mg tablet 8 mg PO DIRECTED PRN Nausea 01/11/24 02/23/24 Unknown potassium phosphate, monobasic 500 500 mg PO BID 01/11/24 02/23/24 02/23/24 08:00 mg soluble tablet (K-Phos Original) prochlorperazine maleate 10 mg 10 mg PO DIRECTED PRN Nausea 01/11/24 02/23/24 Unknown tablet morphine 15 mg tablet,extended 15 mg PO DAILY PRN Pain 02/15/24 02/23/24 02/14/24 release calcitriol 0.25 mcg capsule 1 mcg (4 x 0.25 mcg) PO QAM #120 02/22/24 02/23/24 02/23/24 caps calcium carbonate (Tums) 1,500 mg (7.5 x 200 mg calcium 02/22/24 02/23/24 02/23/24 08:00 (500 mg)) PO TID #360 tabs cyanocobalamin (vitamin B-12) 500 1,000 mcg (2 x 500 mcg) PO QAM #60 02/22/24 02/23/24 02/23/24 mcg tablet tabs ergocalciferol (vitamin D2) 1,250 1,250 mcg PO DAILY #30 caps 02/22/24 02/23/24 02/23/24 mcg (50,000 unit) capsule ferrous sulfate 325 mg (65 mg 325 mg PO QAM #30 tabs 02/22/24 02/23/24 02/23/24 iron) tablet,delayed release lidocaine HCl 2 % mucosal jelly in 1 ml EXT BID #125 mL 02/22/24 02/23/24 02/23/24 08:00 applicator magnesium chloride 64 mg 64 mg PO BID #60 tabs 02/22/24 02/23/24 02/23/24 08:00 (magnesium chloride) tablet,delayed release (Mag 64) metoprolol tartrate 25 mg tablet 12.5 mg (1/2 x 25 mg) PO BID #30 02/22/24 02/23/24 02/23/24 08:00 tabs tamsulosin 0.4 mg capsule 0.4 mg PO QAM #30 caps 02/22/24 02/23/24 02/23/24 Active Medications Generic Name Dose Route Start Last Admin Trade Name José Antonioq PRN Reason Stop Dose Admin Aspirin 81 mg 02/24/24 09:00 02/25/24 08:01 Aspirin 81 Mg Ectab PO 03/25/24 08:59 81 mg QAM GENIA Administration Atorvastatin Calcium 80 mg 02/23/24 21:00 02/24/24 20:30 Atorvastatin 40 Mg Tab PO 03/24/24 20:59 80 mg QPM GENIA Administration Calcitriol 1 mcg 02/24/24 09:00 02/25/24 08:01 Calcitriol 0.25 Mcg Capsule PO 03/25/24 08:59 1 mcg QAM GENIA Administration Calcium Carbonate 1,500 mg 02/23/24 21:00 02/25/24 08:01 Calcium Carbonate 500 Mg Chewable Tab PO 03/24/24 20:59 1,500 mg TID GENIA Administration Cyanocobalamin 1,000 mcg 02/24/24 09:00 02/25/24 08:01 Cyanocobalamin (B-12) 500 Mcg Tablet PO 03/25/24 08:59 1,000 mcg QAM GENIA Administration Ergocalciferol 1,250 mcg 02/24/24 09:00 02/25/24 08:01 Ergocalciferol 1250 Mcg (50,000 Units) Cap PO 03/25/24 08:59 1,250 mcg DAILY GENIA Administration Ferrous Sulfate 325 mg 02/24/24 09:00 02/25/24 08:01 Ferrous Sulfate 325 Mg Tab PO 03/25/24 08:59 325 mg QAM GENIA Administration Insulin Aspart 0 units 02/23/24 19:40 02/25/24 13:06 Insulin Aspart Per Unit Charge SC 03/24/24 19:39 4 units ACHS GENIA Administration Lidocaine HCl 1 ml 02/23/24 21:00 02/25/24 08:01 Lidocaine 2% Jelly 5 Ml Tube EXT 03/24/24 20:59 1 ml BID GENIA Administration Magnesium Chloride 64 mg 02/23/24 21:00 02/25/24 08:01 Magnesium Chloride W/Calcium 64mg Delayed Rel Tab PO 03/24/24 20:59 64 mg BID GENIA Administration Metoprolol Tartrate 25 mg 02/24/24 09:00 02/25/24 08:01 Metoprolol Tartrate 25 Mg Tab PO 03/25/24 08:59 25 mg BID GENIA Administration Morphine Sulfate 15 mg 02/23/24 20:24 02/24/24 14:42 Morphine Sulfate Ir 15 Mg Tab (Immediate Release) PO 03/08/24 20:23 15 mg BID PRN Administration Pain Potassium Phosphate 2 tab 02/23/24 21:00 02/23/24 21:23 Pot Phosphate Monobasic W/ Sod Tab PO 03/24/24 20:59 2 tab BID GENIA Administration Tamsulosin HCl 0.4 mg 02/24/24 09:00 02/25/24 08:01 Tamsulosin Hcl 0.4 Mg Cap PO 03/25/24 08:59 0.4 mg QAM GENIA Administration Tramadol HCl 150 mg 02/23/24 21:00 02/25/24 08:01 Tramadol Hcl 50 Mg Tablet PO 03/24/24 20:59 150 mg BID GENIA Administration (1) Anemia Anemia type: unspecified type Qualified Code(s): D64.9 - Anemia, unspecified (2) Complication of Rain catheter Encounter type: initial encounter Qualified Code(s): T83.9XXA - Unspecified complication of genitourinary prosthetic device, implant and graft, initial encounter (3) Hematuria Hematuria type: unspecified type Qualified Code(s): R31.9 - Hematuria, unspecified
[2024-02-25] MEDS: LORazepam 0.5 MG in SYRINGE 0.25 ML IV PRN (20:47)
--- NOTE | 2024-02-25 21:00 | Palliative Care Consultation ---
Date of Consultation February 25, 2024 Assessment & Plan (1) Cancer related pain: using mSIR 15mg without lasting relief Will begin trial of MSIR 20mg PO q4h prn/ Hold for somnolence or RR less than 14; please document RR with each dose administration. (2) Pelvic pain in male: (3) Falls: Encounter type: subsequent encounter Qualified Code(s): W19.XXXD - Unspecified fall, subsequent encounter (4) Advanced care planning/counseling discussion: Face to face complex ACP discussion with pt for 50 min at bedside. Extensive discussion about his cancer, current complications, declining PS and chemo intolerance. HE states "I want all the things you people can do for me" and then adds he wants them in a controlled escalation of least to most invasive. He says he will do whatever he can and take whatever is offered to buy him time to live with his cancer until the day someone says no more therapy available or you are dying. We spoke about his prior indecision with code status and desiring CPR. We spoke about risks and benefits of CPR in advanced cancer and potential outcomes . He remained firm on desiring full code as a ford part of his overall desire "to have everything you can give me to let me live as long as I can." His insight into his illness is suboptimal. He is unaware of his prognosis and feels "what needs to happen is you people find the right drug to give me, one that won't give me all these problems like the bleeding and not being able to do nothing for myself." (5) Palliative care by specialist: Plan As above Thank you for allowing us to participate in the ongoing care of this patient. Please don't hesitate to call or page with any additional concerns. Dr. Emelia Ledezma DNP Director, Palliative Care History of Present Illness Reason for Consultation: Desire for QoL not congruent with ongoing mgmt Attending Physician: Sia Vergara MD History of Present Illness Recent admission 02/14 to 02/22/24, dc summary reads: "PMH of active smoker, severe protein calorie malnutrition, metastatic prostate cancer on chemotherapy, type 2 diabetes, PAD, HFrEF, hypertension, CKD 3, history of CVA, tobacco use disorder and other medical problems listed below who was directed from heme-onc clinic due to worsening anemia and renal function; seen in [facility] heme/onc infusion center for Xgeva which was held due to hypocalcemia and hypophosphatemia. Received 1L NSS fluid resuscitation and instructed to return today for repeat labs. Hgb downtrended from 7.7 to 7.3 and Cr from 1.8 to 1.9 and was directed by Dr. Queen to ED for further evaluation. Since the last chemo treatment in November (which has since been discontinued), patient endorses feeling more run down, fatigued and without an appetite. + Positional lightheadedness. No recent F/C, syncopal episodes, CP, SOB, N/V, abdominal pain aside from chronic cancer pain. + Dysuria, denies hematuria. Diarrhea today was brown in color. No recent melena or hematochezia. Taking a daily laxative to aid bowel movements in setting of daily opioids. Follows with Dr. Queen and Dr. Novak for mgmt of prostate cancer. Was recently [place] on [place] [facility] received for the first time 01/03/22 but one week later was admitted to [facility] for worsening anemia, renal function and improved with IV hydration. Per at bedside, PSA has been controlled but has not received another Pluvicto treatment yet (was pushed back from end of December to the end of January). 2D echo from 2022 shows EF 48% (improved from previous), no valvular abnormalities." Represented for admission 02/23/24 with c/o persistent pelvic cancer related pain, fell at home day of admission without LOC; +positional lightheadedness, + hematuria, rain catheter clotted off. Flushed in ER x2 successfully, draining well but WBC noted in urine and Abtx was given. Subsequently re admitted. Persisting hematuria and low Hgb despite PRBC transfusion Significant anxiety Per primary team: "Prior Code status discussions and GoC non-congruent--patient makes statements like he "just wants to be home" and "is so tired", initially contemplated DNR status but did not want to commit to a decision. Reports no prior POLST discussions ever being had. Requesting Palliative consult to help direct conversations and GoC with patient given invasive prostate cancer." Home regimen for cancer pain: MS Contin 15mg "po daily prn" MSIR 15mg po bid prn No AD on file. he is seen bedside with no family present. he is supine in bed, with a unit of PRBC transfusion underway. he is somewhat agitated he states he "hates" being in the hospital "or cooped up anyplace I can get outside." He is tired and has cancer pain in abd/pelvis which seems worse at night and when he wakes. he feels the pain accumulates through the daytime because he is not using much pain meds appetite is poor, nothing tastes right and he is having more trouble swallowing solids and liquids energy level low, reports that he has not tolerated chemo well. PS is lower than prior, spends most of his day in a seated or lying position, >80% Allergies Allergy/AdvReac Type Severity Reaction Status Date / Time amoxicillin [From Augmentin] AdvReac Intermediate DIZZINESS/C Verified 02/23/24 18:02 ONFUSION clavulanic acid AdvReac Intermediate DIZZINESS/C Verified 02/23/24 18:02 [From Augmentin] ONFUSION codeine AdvReac Intermediate Gastrointestinal Verified 02/23/24 18:02 Upset Home Medications Medication Instructions Recorded Confirmed Type atorvastatin 80 mg tablet 80 mg PO QPM 04/23/19 02/23/24 History empagliflozin 25 mg tablet 25 mg PO QAM 05/31/21 02/23/24 History (Jardiance) aspirin 81 mg tablet,delayed 81 mg PO QAM #30 tabs 06/03/21 02/23/24 Rx release acetaminophen 500 mg tablet 500 - 1,000 mg PO Q6H PRN Pain 12/06/22 02/23/24 History (Tylenol Extra Strength) clopidogrel 75 mg tablet 75 mg PO QAM 12/06/22 02/23/24 History denosumab 120 mg/1.7 mL (70 mg/mL) 120 mg subcut MONTHLY 12/06/22 02/23/24 History subcutaneous solution (Xgeva) linagliptin 5 mg tablet (Tradjenta) 5 mg PO QAM 12/06/22 02/23/24 History sacubitril 24 mg-valsartan 26 mg 1 tab PO BID 12/06/22 02/23/24 History tablet (Entresto) tramadol 50 mg tablet 150 mg PO BID pain 08/01/23 02/23/24 History morphine 15 mg immediate release 15 mg PO BID PRN Pain 01/11/24 02/23/24 History tablet ondansetron HCl 8 mg tablet 8 mg PO DIRECTED PRN Nausea 01/11/24 02/23/24 History potassium phosphate, monobasic 500 500 mg PO BID 01/11/24 02/23/24 History mg soluble tablet (K-Phos Original) prochlorperazine maleate 10 mg 10 mg PO DIRECTED PRN Nausea 01/11/24 02/23/24 History tablet morphine 15 mg tablet,extended 15 mg PO DAILY PRN Pain 02/15/24 02/23/24 History release calcitriol 0.25 mcg capsule 1 mcg (4 x 0.25 mcg) PO QAM #120 02/22/24 02/23/24 Rx caps calcium carbonate (Tums) 1,500 mg (7.5 x 200 mg calcium 02/22/24 02/23/24 Rx (500 mg)) PO TID #360 tabs cyanocobalamin (vitamin B-12) 500 1,000 mcg (2 x 500 mcg) PO QAM #60 02/22/24 02/23/24 Rx mcg tablet tabs ergocalciferol (vitamin D2) 1,250 1,250 mcg PO DAILY #30 caps 02/22/24 02/23/24 Rx mcg (50,000 unit) capsule ferrous sulfate 325 mg (65 mg 325 mg PO QAM #30 tabs 02/22/24 02/23/24 Rx iron) tablet,delayed release lidocaine HCl 2 % mucosal jelly in 1 ml EXT BID #125 mL 02/22/24 02/23/24 Rx applicator magnesium chloride 64 mg 64 mg PO BID #60 tabs 02/22/24 02/23/24 Rx (magnesium chloride) tablet,delayed release (Mag 64) metoprolol tartrate 25 mg tablet 12.5 mg (1/2 x 25 mg) PO BID #30 02/22/24 02/23/24 Rx tabs tamsulosin 0.4 mg capsule 0.4 mg PO QAM #30 caps 02/22/24 02/23/24 Rx Patient History Medical History History of left heart catheterization (LHC) "cardiac cath -02/04 10-20% block" Stroke Surgical History History of left common carotid artery stent placement Family History Mother , in her 80s Myocardial infarction H/O cardiac surgery Diabetes Father , 58yo Myocardial infarction Lung disease 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 Brother No problems noted. Brother No problems noted. Brother No problems noted. Brother No problems noted. Daughter No problems noted. Son No problems noted. Son Diabetes Other Heart disease Hypertension Social History Smoking Status: Current every day smoker Tobacco Type: Cigarettes packs per day: 0.5; Cigarettes Per Day: pack per day; Second Hand Exposure: No; Do You Dip or Chew Tobacco: No; Tobacco Cessation Education Requested by Patient: No Hx Alcohol Use: Yes Alcohol type: beer Alcohol Intake Frequency: Monthly or Less Hx Substance Use: Yes Prescribed Medications: Marijuana Last Used Substance: Just Prior to Arrival Last Used Substance Other:: marijuana 01/10 Preferred Language: Guinean Communication Ability: Effective Visual Impairment: No Limitations Hearing Ability: Normal Car Seat Maker Required: No Beliefs That Will Affect Care: None marital status: Current Living Situation: Spouse Current Living Situation Comment: , daughter/her spouse current occupational status: retired Other Information That Helps Us Care for You: No Feels Safe at Home: Yes Safety Concerns: Feels Safe At This Time Diet: regular caffeine: No during the past year weight has: decreased > 10 lbs Assistive Devices: None Review of Systems Review of Systems: All systems reviewed & are unremarkable except as noted in Subjective Physical Exam Constitutional: + ill appearing, + thin, + frail appeari ng, + disheveled, + diaphoretic and + underweight Eyes: PERRL, conjunctivae normal, anicteric sclerae ENMT: Ears: + hearing impairment Mouth: + edentulous and + poor dentition Neck: normal visual inspection and trachea midline Respiratory: + labored breathing (mild), + cough, abl e to speak in complete sentences and symmetric chest movement Auscultation: + diminished lung sounds and + rhonchi Cardiovascular: Rate/Rhythm: + irregularly irregular Vessels: no JVD Extremities: normal capillary refill Gastrointestinal (Abdomen): Inspection/Auscultation: normal bowel sounds and + scaphoid Musculoskeletal: gen weakness Skin: +pallor Neurologic: PERRL, EOMI, accommodation nl, no face palsy, no dysarthria AAOx3 Psychiatric: pressured speech, easily distractible/rambles at times Results & Data Vital Signs (Past 12 Hours) Vital Signs Temp Pulse Pulse Resp BP Pulse Ox O2 Del Method 02/25/24 20:14 36.5 C 96 H 18 104/63 100 Room Air 02/25/24 15:48 98 H 02/25/24 15:22 36.4 C L 86 15 112/67 95 Room Air 02/25/24 11:17 36.4 C L 84 13 124/77 97 Room Air Laboratory Results 02/25/24 02/25/24 02/25/24 Range/Units 20:05 17:04 12:09 WBC (4.8-10.8) K/ul RBC (4.70-6.10) M/uL Hgb (14.0-18.0) g/dl Hct (42.0-52.0) % MCV (80.0-100.0) fL MCH (25.0-34.0) pg MCHC (32.0-36.0) g/dL RDW Std Deviation (36.4-46.3) fL RDW Coeff of Clara (11.5-14.5) % Plt Count (130-400) K/uL MPV (9.4-12.4) fL Absolute Nucleated RBC (0.00-0.12) K/uL Nucleated RBC % (auto) % Neutrophils % (Manual) % Lymphocytes % (Manual) % Monocytes % (Manual) % Eosinophils % (Manual) % Metamyelocytes % (Man) % Myelocytes % (Man) % Neutrophils # (Manual) (1.40-6.50) K/uL Total Absolute Neuts (1.4-6.5) K/uL Lymphocytes # (Manual) (1.2-3.4) K/uL Total Abs Lymphocytes (1.2-3.4) K/uL Monocytes # (Manual) (0.11-0.59) K/uL Eosinophils # (Manual) (0-0.50) K/uL Metamyelocytes # (Man) (0-0) K/uL Myelocytes # (Manual) (0-0) K/uL Tear Drop Cells PT (9.0-12.0) Seconds INR (0.9-1.1) Sodium (136-145) mmol/L Potassium (3.5-5.1) mmol/L Chloride (98-107) mmol/L Carbon Dioxide (21-32) mmol/L Anion Gap (3-11) BUN (6-23) mg/dl Creatinine (0.6-1.4) mg/dl Est Cr Clr Drug Dosing ml/min Est GFR ( Amer) ml/min Est GFR (Non-Af Amer) ml/min BUN/Creatinine Ratio (10-20) Glucose (70-99(Fasting)) mg/dl POC Glucose 72 96 122 H (70-99) mg/dl Calcium (8.6-10.3) mg/dl Total Bilirubin (0.2-1.0) mg/dl AST (13-39) U/L ALT (7-52) U/L Alkaline Phosphatase (34-104) U/L Total Protein (6.0-8.3) gm/dl Albumin (3.4-5.0) gm/dl Globulin (2.5-4.0) gm/dl Albumin/Globulin Ratio (0.9-2) Lipase (11-82) U/L Urine Color Urine Appearance (Clear) Urine pH Ur Specific [place] (1.000-1.030) Urine Protein Urine Glucose (UA) Urine Ketones Urine Blood Urine Nitrite Urine Bilirubin Urine Urobilinogen Ur Leukocyte Esterase Urine RBC (0-2) /hpf Urine WBC (0-5) /hpf Ur Epithelial Cells (0-2) /hpf Urine Bacteria (None Seen) Blood Type Antibody Screen Crossmatch 02/25/24 02/25/24 02/24/24 Range/Units 08:20 05:04 20:24 WBC 4.49 L (4.8-10.8) K/ul RBC 2.66 L (4.70-6.10) M/uL Hgb 7.6 L (14.0-18.0) g/dl Hct 24.1 L (42.0-52.0) % MCV 90.6 (80.0-100.0) fL MCH 28.6 (25.0-34.0) pg MCHC 31.5 L (32.0-36.0) g/dL RDW Std Deviation 65.7 H (36.4-46.3) fL RDW Coeff of Clara 19.7 H (11.5-14.5) % Plt Count 82 L (130-400) K/uL MPV 9.4 (9.4-12.4) fL Absolute Nucleated RBC 0.02 (0.00-0.12) K/uL Nucleated RBC % (auto) 0.4 % Neutrophils % (Manual) % Lymphocytes % (Manual) % Monocytes % (Manual) % Eosinophils % (Manual) % Metamyelocytes % (Man) % Myelocytes % (Man) % Neutrophils # (Manual) (1.40-6.50) K/uL Total Absolute Neuts (1.4-6.5) K/uL Lymphocytes # (Manual) (1.2-3.4) K/uL Total Abs Lymphocytes (1.2-3.4) K/uL Monocytes # (Manual) (0.11-0.59) K/uL Eosinophils # (Manual) (0-0.50) K/uL Metamyelocytes # (Man) (0-0) K/uL Myelocytes # (Manual) (0-0) K/uL Tear Drop Cells PT (9.0-12.0) Seconds INR (0.9-1.1) Sodium 138 (136-145) mmol/L Potassium 4.4 (3.5-5.1) mmol/L Chloride 109 H (98-107) mmol/L Carbon Dioxide 23 (21-32) mmol/L Anion Gap 6 (3-11) BUN 19 (6-23) mg/dl Creatinine 1.34 (0.6-1.4) mg/dl Est Cr Clr Drug Dosing 47.1 ml/min Est GFR ( Amer) 64.4 ml/min Est GFR (Non-Af Amer) 55.6 ml/min BUN/Creatinine Ratio 14.2 (10-20) Glucose 102 H (70-99(Fasting)) mg/dl POC Glucose 185 H 80 (70-99) mg/dl Calcium 7.2 L (8.6-10.3) mg/dl Total Bilirubin (0.2-1.0) mg/dl AST (13-39) U/L ALT (7-52) U/L Alkaline Phosphatase (34-104) U/L Total Protein (6.0-8.3) gm/dl Albumin (3.4-5.0) gm/dl Globulin (2.5-4.0) gm/dl Albumin/Globulin Ratio (0.9-2) Lipase (11-82) U/L Urine Color Urine Appearance (Clear) Urine pH Ur Specific [place] (1.000-1.030) Urine Protein Urine Glucose (UA) Urine Ketones Urine Blood Urine Nitrite Urine Bilirubin Urine Urobilinogen Ur Leukocyte Esterase Urine RBC (0-2) /hpf Urine WBC (0-5) /hpf Ur Epithelial Cells (0-2) /hpf Urine Bacteria (None Seen) Blood Type Antibody Screen Crossmatch 02/24/24 02/24/24 02/24/24 Range/Units 17:10 15:49 14:46 WBC 5.50 (4.8-10.8) K/ul RBC 2.79 L (4.70-6.10) M/uL Hgb 8.2 L (14.0-18.0) g/dl Hct 25.1 L (42.0-52.0) % MCV 90.0 (80.0-100.0) fL MCH 29.4 (25.0-34.0) pg MCHC 32.7 (32.0-36.0) g/dL RDW Std Deviation 63.8 H (36.4-46.3) fL RDW Coeff of Clara 19.4 H (11.5-14.5) % Plt Count 94 L (130-400) K/uL MPV 9.1 L (9.4-12.4) fL Absolute Nucleated RBC 0.03 (0.00-0.12) K/uL Nucleated RBC % (auto) 0.5 % Neutrophils % (Manual) % Lymphocytes % (Manual) % Monocytes % (Manual) % Eosinophils % (Manual) % Metamyelocytes % (Man) % Myelocytes % (Man) % Neutrophils # (Manual) (1.40-6.50) K/uL Total Absolute Neuts (1.4-6.5) K/uL Lymphocytes # (Manual) (1.2-3.4) K/uL Total Abs Lymphocytes (1.2-3.4) K/uL Monocytes # (Manual) (0.11-0.59) K/uL Eosinophils # (Manual) (0-0.50) K/uL Metamyelocytes # (Man) (0-0) K/uL Myelocytes # (Manual) (0-0) K/uL Tear Drop Cells PT (9.0-12.0) Seconds INR (0.9-1.1) Sodium 141 (136-145) mmol/L Potassium 4.0 D (3.5-5.1) mmol/L Chloride 108 H (98-107) mmol/L Carbon Dioxide 23 (21-32) mmol/L Anion Gap 10 (3-11) BUN 20 (6-23) mg/dl Creatinine 1.43 H (0.6-1.4) mg/dl Est Cr Clr Drug Dosing 44.1 ml/min Est GFR ( Amer) 59.6 ml/min Est GFR (Non-Af Amer) 51.4 ml/min BUN/Creatinine Ratio 14.0 (10-20) Glucose 103 H (70-99(Fasting)) mg/dl POC Glucose 75 147 H (70-99) mg/dl Calcium 6.6 L (8.6-10.3) mg/dl Total Bilirubin (0.2-1.0) mg/dl AST (13-39) U/L ALT (7-52) U/L Alkaline Phosphatase (34-104) U/L Total Protein (6.0-8.3) gm/dl Albumin (3.4-5.0) gm/dl Globulin (2.5-4.0) gm/dl Albumin/Globulin Ratio (0.9-2) Lipase (11-82) U/L Urine Color Urine Appearance (Clear) Urine pH Ur Specific [place] (1.000-1.030) Urine Protein Urine Glucose (UA) Urine Ketones Urine Blood Urine Nitrite Urine Bilirubin Urine Urobilinogen Ur Leukocyte Esterase Urine RBC (0-2) /hpf Urine WBC (0-5) /hpf Ur Epithelial Cells (0-2) /hpf Urine Bacteria (None Seen) Blood Type Antibody Screen Crossmatch 02/24/24 02/24/24 02/24/24 Range/Units 08:04 07:32 05:23 WBC 3.97 L (4.8-10.8) K/ul RBC 2.12 L (4.70-6.10) M/uL Hgb 6.2 L* (14.0-18.0) g/dl Hct 19.8 L* (42.0-52.0) % MCV 93.4 (80.0-100.0) fL MCH 29.2 (25.0-34.0) pg MCHC 31.3 L (32.0-36.0) g/dL RDW Std Deviation 59.7 H (36.4-46.3) fL RDW Coeff of Clara 17.3 H (11.5-14.5) % Plt Count 92 L (130-400) K/uL MPV 9.7 (9.4-12.4) fL Absolute Nucleated RBC 0.03 (0.00-0.12) K/uL Nucleated RBC % (auto) 0.8 % Neutrophils % (Manual) % Lymphocytes % (Manual) % Monocytes % (Manual) % Eosinophils % (Manual) % Metamyelocytes % (Man) % Myelocytes % (Man) % Neutrophils # (Manual) (1.40-6.50) K/uL Total Absolute Neuts (1.4-6.5) K/uL Lymphocytes # (Manual) (1.2-3.4) K/uL Total Abs Lymphocytes (1.2-3.4) K/uL Monocytes # (Manual) (0.11-0.59) K/uL Eosinophils # (Manual) (0-0.50) K/uL Metamyelocytes # (Man) (0-0) K/uL Myelocytes # (Manual) (0-0) K/uL Tear Drop Cells PT (9.0-12.0) Seconds INR (0.9-1.1) Sodium 143 (136-145) mmol/L Potassium 3.0 L (3.5-5.1) mmol/L Chloride 110 H (98-107) mmol/L Carbon Dioxide 24 (21-32) mmol/L Anion Gap 9 (3-11) BUN 18 (6-23) mg/dl Creatinine 1.33 (0.6-1.4) mg/dl Est Cr Clr Drug Dosing 47.5 ml/min Est GFR ( Amer) 65.0 ml/min Est GFR (Non-Af Amer) 56.1 ml/min BUN/Creatinine Ratio 13.5 (10-20) Glucose 99 (70-99(Fasting)) mg/dl POC Glucose 127 H (70-99) mg/dl Calcium 5.4 L* (8.6-10.3) mg/dl Total Bilirubin (0.2-1.0) mg/dl AST (13-39) U/L ALT (7-52) U/L Alkaline Phosphatase (34-104) U/L Total Protein (6.0-8.3) gm/dl Albumin (3.4-5.0) gm/dl Globulin (2.5-4.0) gm/dl Albumin/Globulin Ratio (0.9-2) Lipase (11-82) U/L Urine Color Urine Appearance (Clear) Urine pH Ur Specific [place] (1.000-1.030) Urine Protein Urine Glucose (UA) Urine Ketones Urine Blood Urine Nitrite Urine Bilirubin Urine Urobilinogen Ur Leukocyte Esterase Urine RBC (0-2) /hpf Urine WBC (0-5) /hpf Ur Epithelial Cells (0-2) /hpf Urine Bacteria (None Seen) Blood Type A Positive Antibody Screen NEGATIVE Crossmatch See Detail 02/23/24 02/23/24 02/23/24 Range/Units 20:29 18:00 16:57 WBC 5.19 (4.8-10.8) K/ul RBC 2.69 L (4.70-6.10) M/uL Hgb 7.8 L (14.0-18.0) g/dl Hct 24.6 L (42.0-52.0) % MCV 91.4 (80.0-100.0) fL MCH 29.0 (25.0-34.0) pg MCHC 31.7 L (32.0-36.0) g/dL RDW Std Deviation 59.9 H (36.4-46.3) fL RDW Coeff of Clara 18.1 H (11.5-14.5) % Plt Count 103 L (130-400) K/uL MPV 10.1 (9.4-12.4) fL Absolute Nucleated RBC 0.02 (0.00-0.12) K/uL Nucleated RBC % (auto) 0.4 % Neutrophils % (Manual) 84 % Lymphocytes % (Manual) 5 % Monocytes % (Manual) 6 % Eosinophils % (Manual) 2 % Metamyelocytes % (Man) 1 % Myelocytes % (Man) 2 % Neutrophils # (Manual) 4.36 (1.40-6.50) K/uL Total Absolute Neuts 4.36 (1.4-6.5) K/uL Lymphocytes # (Manual) 0.26 L (1.2-3.4) K/uL Total Abs Lymphocytes 0.26 L (1.2-3.4) K/uL Monocytes # (Manual) 0.31 (0.11-0.59) K/uL Eosinophils # (Manual) 0.10 (0-0.50) K/uL Metamyelocytes # (Man) 0.05 H (0-0) K/uL Myelocytes # (Manual) 0.10 H (0-0) K/uL Tear Drop Cells 1+ PT 13.0 H (9.0-12.0) Seconds INR 1.2 H (0.9-1.1) Sodium 138 (136-145) mmol/L Potassium 3.6 (3.5-5.1) mmol/L Chloride 105 (98-107) mmol/L Carbon Dioxide 16 L (21-32) mmol/L Anion Gap 17 H (3-11) BUN 20 (6-23) mg/dl Creatinine 1.50 H (0.6-1.4) mg/dl Est Cr Clr Drug Dosing 44.9 ml/min Est GFR ( Amer) 56.2 ml/min Est GFR (Non-Af Amer) 48.5 ml/min BUN/Creatinine Ratio 13.3 (10-20) Glucose 221 H (70-99(Fasting)) mg/dl POC Glucose 153 H (70-99) mg/dl Calcium 6.5 L (8.6-10.3) mg/dl Total Bilirubin 0.6 (0.2-1.0) mg/dl AST 53 H (13-39) U/L ALT 8 (7-52) U/L Alkaline Phosphatase 466 H (34-104) U/L Total Protein 6.3 (6.0-8.3) gm/dl Albumin 3.1 L (3.4-5.0) gm/dl Globulin 3.2 (2.5-4.0) gm/dl Albumin/Globulin Ratio 1.0 (0.9-2) Lipase 6 L (11-82) U/L Urine Color See Comment Urine Appearance Cloudy A (Clear) Urine pH Not Reportable Ur Specific [place] 1.017 (1.000-1.030) Urine Protein Not Reportable Urine Glucose (UA) Not Reportable Urine Ketones Not Reportable Urine Blood Not Reportable Urine Nitrite Not Reportable Urine Bilirubin Not Reportable Urine Urobilinogen Not Reportable Ur Leukocyte Esterase Not Reportable Urine RBC >20 H (0-2) /hpf Urine WBC 21-50 H (0-5) /hpf Ur Epithelial Cells 0-2 (0-2) /hpf Urine Bacteria None Seen (None Seen) Blood Type Antibody Screen Crossmatch Diagnostic Findings Renal Ultrasound 02/23/24 16:39 RENAL ULTRASOUND HISTORY: Hematuria. COMPARISON: Abdomen and pelvis CT 02/17/2024. Renal ultrasound 02/17/2024. FINDINGS: Right kidney: 11.4 cm. Moderate hydronephrosis is similar to the prior study. A ureteral stent is partially visualized. Normal corticomedullary differentiation and cortical thickness. Left kidney: 7.8 cm. Mild to moderate hydronephrosis, unchanged. A ureteral stent is partially visualized. Diffuse cortical thinning. Bladder: Bladder is distended. There is complex material layering within the bladder without demonstrable color flow which measures 8 x 7 x 5 cm. This suggests blood products given the patient's history of hematuria. This could obscure a bladder mass. There is a Rain catheter and gas within the bladder lumen. IMPRESSION: 1. Bladder is distended. There is complex material layering within the bladder without demonstrable color flow which measures 8 x 7 x 5 cm. This suggests blood products given the patient's history of hematuria. This could obscure a bladder mass. 2. No change in the moderate right and mild to moderate left hydronephrosis. Bilateral ureteral stents are partially visualized. ACT 112: Negative or not required by law. Electronically signed by: Ángel Linder M.D. 02/23/2024 5:[address] 02/23/24 18:[address] DOSE: 625.8 mGy.cm HISTORY: fall, hit head TECHNIQUE: Multiaxial CT images of the head were performed without the use of intravenous contrast. Automated exposure control was utilized for this study. A dose lowering technique was utilized adhering to the principles of ALARA. Comparison: None. Findings: The paranasal sinuses and mastoid air cells are clear. The calvarium and skull base are intact. There is mild left posterior scalp swelling. Hypodensity and encephalomalacia within the right frontal/ parietal lobe extending to the right subinsular cortex. This favors an old right MCA territory infarct. Otherwise, there is no acute infarct, intracranial hemorrhage, or midline shift. Impression: 1. No acute infarct or intracranial hemorrhage. 2. Mild left posterior scalp swelling. 3. Hypodensity and encephalomalacia within the right frontal/parietal lobe suggestive of an old right MCA territory infarct. ACT 112: Negative or not required by law. Electronically signed by: Ángel Linder M.D. 02/23/2024 7:26 PM PG Care Time/CCT Total # of Minutes Spent Total Time Spent with Patient: Total time spent is greater than 50% in coordination of care (as documented) at patient's floor/unit and/or counseling patient: I spent 120 minutes overall addressing this case: 20 min in medical data review/discussion with referring provider(s) and/or preparation for the visit 20 min in direct interaction with the patient/exam 50 min in Advance Care Planning/Goals of Care discussions as detailed above in note (must be >16min) 15 min in subsequent review and synthesis of assessment and plan 15 min communicating with other providers regarding the patient's case: [place] [address] IN/OBS CONSULT LVL 5,80M (25 - SIGNIFICANT, SEPARATELY IDENTIFIABLE ) Patient Type New Medical Decision Making High Complexity Diagnoses Cancer related pain G89.3 Pelvic pain in male R10.2 Fall, subsequent encounter W19.XXXD Encounter type: subsequent encounter Advanced care planning/counseling discussion Z71.89 Palliative care by specialist Z51.5
[2024-02-26 06:44] LABS: Mean Corpuscular Hemoglobin 28.8 pg (25.0-34.0); Mean Corpuscular Hgb Conc 31.8 g/dL (32.0-36.0); Mean Corpuscular Volume 90.5 fL (80.0-100.0); Mean Platelet Volume 9.4 fL (9.4-12.4); Nucleated RBC # (auto) 0.03 K/uL (0.00-0.12); Nucleated RBC % (auto) 0.7 %; Platelet Count 72 K/uL (130-400); RDW Coefficient of Variation 19.1 % (11.5-14.5); RDW Standard Deviation 62.3 fL (36.4-46.3); Red Blood Count 2.43 M/uL (4.70-6.10); White Blood Count 4.16 K/ul (4.8-10.8)
[2024-02-26 07:01] LABS: Albumin Level 2.7 gm/dl (3.4-5.0); BUN Creatinine Ratio 15.4 (10-20); Bilirubin,Total 0.5 mg/dl (0.2-1.0); Calcium 7.1 mg/dl (8.6-10.3); Creatinine Clr Calc Pharmacy 56.2 ml/min; Est GFR (African American) 75.9 ml/min; Est GFR (Non-African American) 65.5 ml/min; Globulin 2.8 gm/dl (2.5-4.0); Magnesium 1.5 mg/dl (1.7-2.4); Phosphorus 2.7 mg/dl (2.5-4.9); Potassium 3.8 mmol/L (3.5-5.1); Total Protein 5.5 gm/dl (6.0-8.3)
[2024-02-26] MEDS ORDERED: SODIUM CHLORIDE 0.9% 250 ML IV PRN (07:06)
[2024-02-26] MEDS: MAGNESIUM SULFATE / D5W 1 GM/100 ML BAG IV SCH (07:37)
--- NOTE | 2024-02-26 08:26 | Radiation OncologyConsultation ---
Date of Consultation February 26, 2024 Assessment & Plan (1) Prostate cancer: Plan ATTENDING ADDENDUM Assessment: Mr. Chaudhari is a 63-year-old gentleman with castrate resistant metastatic prostate cancer. The patient was previously seen in consultation regarding palliative radiation therapy and declined therapy at that point. Currently, the patient is admitted to the hospital due to hematuria from his prostate cancer which is involving his bladder as well. Urology recommended consideration of palliative radiation therapy to help with his hematuria. Recommendation: Palliative radiation therapy. 15-20 fractions based on patient tolerance. The patient's was present during the entire discussion and also agreed with the plan.. Plan: 1. CT simulation for treatment planning. Patient was brought down tomorrow for simulation. No contrast. No bladder protocol. 2. Continue all other care as per primary hospital team. 3. Follow-up with medical oncology in the outpatient setting. 4. Palliative care consultation could be beneficial in inpatient or outpatient setting. 5. Patient and family encouraged to call us with any further questions or concerns. Rationale/Explanation of Treatment: I did explain the indications, alternatives, benefits, risks and side effects of external beam radiation therapy. I did explain the most common side effects including, but not limited to, skin erythema, skin breakdown, hyperpigmentation, telangiectasia, wound complications, perianal fistula development, fistula formation, nausea, vomiting, bowel obstruction, bowel perforation, kidney damage, spinal cord damage, dysuria, increased urinary frequency, urgency, diarrhea, constipation, melena, hematochezia, hematuria, radiation cystitis, radiation proctitis, fatigue, decreased blood counts, wound complications from surgery, urinary incontinence, rectal incontinence, secondary malignancy development. I did explain the procedures and daily process of radiation therapy. History of Present Illness Reason for Consultation: Hematuria Requesting Physician: Sia Herzog MD Attending Physician: Sia Vergara MD History of Present Illness June 2021. Obstructive uropathy requiring Velasquez catheter for 2 months. 04/25/2021. PSA 23.34. 05/27/2021-08/04/2021. Casodex. 05/31/2021. PSA 31.65. 05/31/2021. CT of abdomen and pelvis. Urinary bladder very distended nearly to the level of the umbilicus, with at least moderate bilateral hydroureteronephrosis, right worse than left. Patient was directed to the emergency room was taken to the provider. Sclerotic metastasis, perhaps prostate origin. Evidence of chronic pancreatitis. 06/10/2021. Status post transrectal ultrasound-guided biopsies of the prostate. Left apex. Prostatic adenocarcinoma. Ashfield 4+5. 95% of tissue involved. Perineural invasion. Left mid. Prostatic adenocarcinoma. Ashfield 4+5. 100% of tissue involved. Perineural invasion. Left base. Prostatic adenocarcinoma. Ashfield 4+5. 95% of tissue involved. Perineural invasion. Right apex. Prostatic adenocarcinoma. Ashfield 4+5. 99% of tissue involved. Perineural invasion. Right mid. Prostatic adenocarcinoma. Artur 4+5. 100% of tissue involved. Right base. Prostatic adenocarcinoma. Artur 4+5. 80% of the tissue involved. Perineural invasion. 06/13/2021. Bone scan. Multiple focal areas of increased uptake are seen in the spine, ribs, sternum, pelvis, and right proximal femur suggestive of metastatic disease. 06/16/2021. Initiation of Eligard. 06/24/2021. PSA 15.55. 07/29/2021. PSA 2.51. 08/15/2021. Initiation of Xtandi. 10/19/2021. PSA 0.25. 11/16/2021. Initiation of monthly Xgeva. 01/17/2022. PSA 0.12. 03/10/2022. CT of abdomen and pelvis. Progression of osseous metastatic disease. Mild urinary bladder wall thickening. Resolved bilateral hydronephrosis. 03/14/2022. PSA 0.10. 03/17/2022. Bone scan. Overall improvement in the osseous metastatic disease when compared to the prior bone scan dated 06/13/2021. The increased areas of sclerosis seen on the recent CT, which appear more dense and numerous than the previous CT dated 05/31/2021, may represent posttherapy effect with interval healing and sclerosis. 05/15/2022. PSA 0.13. 05/17/2022. Medical oncology consultation (Dr. Courtney Queen). Continue Eligard, Xtandi and Xgeva. 06/22/2022. Referral to radiation oncology for bone pain. No appointment scheduled. 07/17/2022. PSA 0.20. 08/15/2022. PSA 0.28. 09/11/2022. PSA 0.31. 09/17/2022. Medical oncology follow-up. Continuing on Eligard, Xtandi and Xgeva. Patient is not a good candidate for systemic chemotherapy. 11/15/2022. Referral to radiation oncology for metastatic disease of bony sites. Recommendation for PMSA PET. Patient requested to not have the study for one month. 01/17/2023. PSMA PET. IMPRESSION: Primary disease is noted in the left anterior prostate. Numerous blastic lesions are seen, the vast majority of which do not demonstrate FDG uptake. There is however moderate FDG uptake in the proximal right humerus and in the left inferior pubic ramus. 01/24/2023. Radiation oncology follow-up. PSMA PET was reviewed. Patient had continued on treatment with Xtandi, Eligard and Xgeva. Pain level 8 he was having in his shoulder at that time he felt did not warrant undergoing radiation therapy. 02/12/2023. PSA 1.87. 03/13/2023. PSA 2.86. 04/12/2023. PSA 4.04. 05/08/2023. Urology follow-up (Dr. Novak). Patient continues on alfuzosin. He continues on Xtandi through medical oncology. Continue follow-up PSAs. 6-month Lupron injection administered. 05/14/2023. PSA 6.30. 05/24/2023. Medical oncology follow-up. Concern for hormonal refractory disease due to rising PSA. PSMA PET ordered. Referred to radiation oncology to discuss Xofigo. 06/11/2023. PSA 10.17. 07/04/2023. PSMA PET. Impression: Interval increase in disease burden with increased number and uptake of osseous metastatic disease as well as increased uptake in the prostate. 07/17/2023. PSA 16.77. 07/19/2023. Medical oncology follow-up. Studies reviewed chemotherapy was discussed. Possible use of Taxotere at lower dose due to kidney function. Radiation therapy to evaluate for possible treatment to right proximal humerus and pubic ramus. Will return in a month to further discuss chemotherapy. 08/01/2023. Radiation oncology follow-up. Patient has noted increased discomfort of the right upper arm. He also has discomfort in the left groin. He has a pain level of the arm between 2 and 3. The pain level of the groin he gives it 1. He does have morphine available. He takes tramadol twice daily. With progression of the disease in these areas he was referred back to our office to discuss radiation therapy. 08/01/2023. Radiation oncology follow-up. Patient was offered palliative radiation therapy to the right humerus and left pelvis. At that time he wished to continue on his current management. He was not sure if he wanted to have radiation. He would notify us if he wanted to receive palliative radiation. 09/20/2023-11/01/2023. 3 cycles of Taxotere (Dr. Courtney Queen). 01/04/2024. Initiation of Pluvicto. Patient was admitted 1 week following with anemia, worsening kidney function, dehydration and urinary tract infection. Patient continued on Xgeva every 3 months. 01/17/2024. Medical oncology follow-up (Dr. Courtney Queen). Planning for second cycle of Pluvicto 6 weeks from the first treatment. Due to low blood counts treatment may not be given. 02/17/2024. CT of the abdomen pelvis. 1. Right greater left bilateral hydroureteronephrosis without obstructing ureteral calculus or lesion identified. 2. Prostamegaly with evidence of chronic outlet obstruction. Soft tissue density within the base of the urinary bladder measures up to 4.8 cm. This may be secondary to prostate parenchyma/mass versus a urothelial lesion and could be evaluated with cystoscopy 3. Progressive lymphatic and osseous metastatic disease. 4. Small pleural effusions. 5. No bowel obstruction or pneumoperitoneum. 02/23/2024. Admission for gross hematuria. Patient was admitted and was some hydration the hemoglobin further decreased to 6.2. He was transfused. Currently has an indwelling Velasquez catheter. There was some improvement to hemoglobin 8.2. He continues to now drop in hemoglobin is at 7.0. 02/26/2024. Radiation oncology consultation. Patient states she generally has feeling of fatigue. He feels poorly. Generalized discomfort. He denied nausea or vomiting. Velasquez catheter is in place with gross hematuria. He denies any bladder pressure or pain. There are plans for him to be transfused this morning. Hemoglobin at 7.0. He is very lethargic this morning but does awaken easily. We discussed radiation for palliation of the hematuria. He did wish to proceed with treatment. Allergies Allergy/AdvReac Type Severity Reaction Status Date / Time amoxicillin [From Augmentin] AdvReac Intermediate DIZZINESS/C Verified 02/23/24 18:02 ONFUSION clavulanic acid AdvReac Intermediate DIZZINESS/C Verified 02/23/24 18:02 [From Augmentin] ONFUSION codeine AdvReac Intermediate Gastrointestinal Verified 02/23/24 18:02 Upset Home Medications Medication Instructions Recorded Confirmed Type atorvastatin 80 mg tablet 80 mg PO QPM 04/23/19 02/23/24 History empagliflozin 25 mg tablet 25 mg PO QAM 05/31/21 02/23/24 History (Jardiance) aspirin 81 mg tablet,delayed 81 mg PO QAM #30 tabs 06/03/21 02/23/24 Rx release acetaminophen 500 mg tablet 500 - 1,000 mg PO Q6H PRN Pain 12/06/22 02/23/24 History (Tylenol Extra Strength) clopidogrel 75 mg tablet 75 mg PO QAM 12/06/22 02/23/24 History denosumab 120 mg/1.7 mL (70 mg/mL) 120 mg subcut MONTHLY 12/06/22 02/23/24 History subcutaneous solution (Xgeva) linagliptin 5 mg tablet (Tradjenta) 5 mg PO QAM 12/06/22 02/23/24 History sacubitril 24 mg-valsartan 26 mg 1 tab PO BID 12/06/22 02/23/24 History tablet (Entresto) tramadol 50 mg tablet 150 mg PO BID pain 08/01/23 02/23/24 History morphine 15 mg immediate release 15 mg PO BID PRN Pain 01/11/24 02/23/24 History tablet ondansetron HCl 8 mg tablet 8 mg PO DIRECTED PRN Nausea 01/11/24 02/23/24 History potassium phosphate, monobasic 500 500 mg PO BID 01/11/24 02/23/24 History mg soluble tablet (K-Phos Original) prochlorperazine maleate 10 mg 10 mg PO DIRECTED PRN Nausea 01/11/24 02/23/24 History tablet morphine 15 mg tablet,extended 15 mg PO DAILY PRN Pain 02/15/24 02/23/24 History release calcitriol 0.25 mcg capsule 1 mcg (4 x 0.25 mcg) PO QAM #120 02/22/24 02/23/24 Rx caps calcium carbonate (Tums) 1,500 mg (7.5 x 200 mg calcium 02/22/24 02/23/24 Rx (500 mg)) PO TID #360 tabs cyanocobalamin (vitamin B-12) 500 1,000 mcg (2 x 500 mcg) PO QAM #60 02/22/24 02/23/24 Rx mcg tablet tabs ergocalciferol (vitamin D2) 1,250 1,250 mcg PO DAILY #30 caps 02/22/24 02/23/24 Rx mcg (50,000 unit) capsule ferrous sulfate 325 mg (65 mg 325 mg PO QAM #30 tabs 02/22/24 02/23/24 Rx iron) tablet,delayed release lidocaine HCl 2 % mucosal jelly in 1 ml EXT BID #125 mL 02/22/24 02/23/24 Rx applicator magnesium chloride 64 mg 64 mg PO BID #60 tabs 02/22/24 02/23/24 Rx (magnesium chloride) tablet,delayed release (Mag 64) metoprolol tartrate 25 mg tablet 12.5 mg (1/2 x 25 mg) PO BID #30 02/22/24 02/23/24 Rx tabs tamsulosin 0.4 mg capsule 0.4 mg PO QAM #30 caps 02/22/24 02/23/24 Rx Patient History Medical History History of left heart catheterization (LHC) "cardiac cath -02/04 10-20% block" Stroke Surgical History History of left common carotid artery stent placement Family History Mother , in her 80s Myocardial infarction H/O cardiac surgery Diabetes Father , 58yo Myocardial infarction Lung disease From working in [employer]; Brother No problems noted. Brother No problems noted. Brother No problems noted. Brother No problems noted. Brother No problems noted. Daughter No problems noted. Son No problems noted. Son Diabetes Other Heart disease Hypertension Social History Smoking Status: Current every day smoker Tobacco Type: Cigarettes packs per day: 0.5; Cigarettes Per Day: pack per day; Second Hand Exposure: No; Do You Dip or Chew Tobacco: No; Tobacco Cessation Education Requested by Patient: No Hx Alcohol Use: Yes Alcohol type: beer Alcohol Intake Frequency: Monthly or Less Hx Substance Use: Yes Prescribed Medications: Marijuana Last Used Substance: Just Prior to Arrival Last Used Substance Other:: marijuana 01/10 Preferred Language: French Communication Ability: Effective Visual Impairment: No Limitations Hearing Ability: Normal 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 Beliefs That Will Affect Care: None marital status: Current Living Situation: Spouse Current Living Situation Comment: , daughter/her spouse current occupational status: retired Other Information That Helps Us Care for You: No Feels Safe at Home: Yes Safety Concerns: Feels Safe At This Time Diet: regular caffeine: No during the past year weight has: decreased > 10 lbs Assistive Devices: None Physical Exam Constitutional: + thin and + frail appearing Eyes: PERRL, conjunctivae normal, anicteric sclerae ENMT: Ears: no hearing impairment Neck: trachea midline, no thyromegaly Respiratory: normal respiratory effort, lungs clear to auscultation Cardiovascular: RRR, no murmur, no edema Gastrointestinal (Abdomen): normal bowel sounds, soft, nontender, no hepatosplenomegaly Skin: no rashes, warm and dry Psychiatric: A+Ox3, euthymic affect Genitourinary: Velasquez catheter in place with gross hematuria. Results (Rad Onc) Laboratory Results: were reviewed and pertinent findings noted in HPI Pathology Results: were reviewed and pertinent findings noted in HPI Time Spent Midlevel I spent [15] minutes in preparation for this follow up evaluation including reviewing all the clinical records, reviewing laboratory studies, pathology reports and imaging results. I spent [20] minutes with direct face to face interaction with the patient and/or family including performing a physical exam and answering all questions. Review of PSMA PET imaging with the patient. I spent [15] minutes documenting this patient's visit. Attending I spent 10 minutes in preparation for this consultation including reviewing all the clinical records, reviewing laboratory studies, pathology reports and imaging results. I spent 20 minutes with direct face to face interaction with the patient and/or family including performing a physical exam and answering all questions. I spent 10 minutes documenting this patient's visit. PG Care Time/CCT Total # of Minutes Spent Total Time Spent with Patient: Total time spent is greater than 50% in coordination of care (as documented) at patient's floor/unit and/or counseling patient: Coding [place] [address] IN/OBS CONSULT LVL 5,80M Patient Type Established History Problem Focused Exam Problem Focused Medical Decision Making Low Complexity Diagnoses Prostate cancer C61
--- NOTE | 2024-02-26 10:57 | Urology Progress Note ---
Date of Service February 26, 2024 Assessment & Plan (1) Anemia: (2) Hematuria: (3) Prostate cancer metastatic to bone: Plan Patient afebrile and hemodynamically stable at present Labs reviewed - hemoglobin 7.0 (receiving PRBC transfusion); Creatinine 1.17; WBC 4.16 Urine culture 02/22 was negative Velasquez currently draining light mckeon red urine without clot Rad Onc note reviewed- Pt to proceed with palliative radiation to the bladder. Palliative care consulted. Hematuria seems most likely related to dysplastic tissue in the bladder and raw surfaces from recent resection. This may be further irritated by having the indwelling stents in place. Would recommend continuing to monitor urine output. Okay to hand irrigate as needed for clots, obstruction, suprapubic pain. No plan for surgical intervention as cystoscopy and cauterization would be a temporizing measure as the hematuria will recur. There is a chance that the stents are irritating the raw surfaces in the bladder and causing further bleeding. Depending on clinical course, may be worth considering conversion to nephrostomy tubes. Continue to trend labs and transfuse as necessary per primary service. Continue supportive care. Urology will follow along. Plan reviewed with Dr. Epps, on-call urologist. Admission and Anticipated Discharge Date Admission Date: February 23, 2024 Subjective Patient seen and examined at bedside this morning at bedside No acute distress Appears fatigued Answered questions appropriately Receiving PRBC transfusion Velasquez draining w/hematuria without clot No flank or suprapubic pain No fevers Review of Systems Constitutional: as per Subjective / HPI Genitourinary: + as per Subjective / HPI Physical Exam Constitutional: no acute distress Chronically ill appearing Respiratory: no respiratory distress and no labored breathing Neurologic: awake Psychiatric: Orientation: alert and oriented x 3 Genitourinary: Velasquez draining light red urine without clot. Results & Data Vital Signs (Past 12 Hours) Vital Signs Temp Pulse Pulse Resp BP BP BP 02/26/24 09:40 36.7 C 89 18 114/73 02/26/24 09:10 36.7 C 100 H 18 132/76 02/26/24 08:51 36.8 C 100 H 18 134/72 02/26/24 08:29 36.8 C 73 18 130/79 02/26/24 07:46 36.8 C 105 H 15 138/82 02/26/24 07:31 94 H 02/26/24 03:10 36.8 C 94 H 18 128/71 Pulse Ox O2 Del Method 02/26/24 09:40 96 02/26/24 09:10 96 02/26/24 08:51 97 02/26/24 08:29 96 02/26/24 07:46 97 Room Air 02/26/24 07:31 02/26/24 03:10 96 Room Air PG Care Time/CCT Total # of Minutes Spent Total Time Spent with Patient: Total time spent is greater than 50% in coordination of care (as documented) at patient's floor/unit and/or counseling patient: Coding Level of Care Code 82328 SUB INP/OBS CARE 2/35MIN Diagnoses Anemia D64.9 Anemia type: unspecified type Hematuria R31.9 Hematuria type: unspecified type Prostate cancer metastatic to bone C61; C79.51 (1) Anemia Anemia type: unspecified type Qualified Code(s): D64.9 - Anemia, unspecified (2) Hematuria Hematuria type: unspecified type Qualified Code(s): R31.9 - Hematuria, unspecified
--- NOTE | 2024-02-26 14:19 | Hospitalist Progress Note ---
Date of Service February 26, 2024 Assessment & Plan (1) Anemia: (2) Complication of Rain catheter: (3) Hematuria: (4) Hypocalcemia syndrome: (5) History of CVA (cerebrovascular accident): (6) HFrEF (heart failure with reduced ejection fraction): (7) Pancytopenia due to chemotherapy: (8) Prostate cancer metastatic to bone: (9) HLD (hyperlipidemia): (10) HTN (hypertension): (11) DM2 (diabetes mellitus, type 2): (12) PAD (peripheral artery disease): (13) BPH with obstruction/lower urinary tract symptoms: Plan Mr. Chaudhari is a 63 yr male with H/O Metastatic prostate cancer on chemotherapy, type 2 diabetes, PAD, HFrEF, hypertension, CKD 3, history of CVA, tobacco use disorder and other medical problems listed below who is admitted for clotting of rain. Patient with hematuria s/p TURP on 02/17, with stable anemia. Patient discharged and rain continued to clot at home prompting presentation. Patient with persistent hematuria and hgb at 6.2 on 02/23 now s/p 1 UPRBC. Patient responded appropriately, however, hgb continues to down trend. Urology discussed options per note with patient: radiation v nephrostomy tubes to divert urine from bladder. Patient wishes to trial radiation and if unsuccessful will go for nephrostomy placement. Per urology: "Hematuria seems most likely related to dysplastic tissue in the bladder and raw surfaces from recent resection. This may be further irritated by having the indwelling stents in place. " Rad onc and palliative following. #Anxiety lorezepam led to delirium wishes to discontinue willing to trial buspar 5mg tid #Acute on Chronic anemia, multifactorial POA #Pancytopenia--POA Likely secondary to chemotherapy/Bone marrow suppression, B12 and Iron deficiency In setting of ongoing prostate cancer chemotherapy Currently hematuria contributing as well --S/P 2 units PRBCs on admission, 1 UPRBC 02/18 post operatively Platelet count stable Continue Iron and Vitamin B12 supplements Hold plavix and now asa, resume as able given multiple comorbidities below Transfuse HH <7 Transfusion this am, hgb 7.0 and continued hematuria -Now 2 UPRBC 0( 1 on 02/23, 1 on 02/25) #hematuria #Recent obstructive uropathy s/p TURP #Adenocarcinoma prostate, bladder involvement #Metastatic prostate cancer Ongoing cancer treatment, previously on chemo (discontinued in November), received first dose of Pluvicto treatment at [facility] [place], received for the first time 01/03/22 but subsequent treatment was postponed due to anemia -Continue rain Consult Urology -CTM -Continue to hold plavix continue tamsulosin Discussion of radiation v nephrostomy tubes -Reviewed rad onc notes -CT stim for treatment planning, plan for palliative radiation Palliative care consult, discussion with Brisa CUEVAS -Continue full treatment spectrum -Patient wishes to pursue all options unless there is "no hope" # CKDIII Baseline Cr~ 1.3, baseline this morning Recent CARLA suspected to be 2/2 Renal toxicity listed as side effect from Plucivto; Obstructive uropathy, atrophic kidney contributing as well Continue to hold Entresto, Jardiance until told to resume otherwise Encouraged po Monitor renal function Avoid nephrotoxic agents as able #NSVT #PVCs #Sinus tachycardia, multifactorial Monitor and replace electrolytes as as needed Transfuse Continue Metoprolol 25 BID continue telemetry #Hypocalcemia #Hypophosphatemia #Hypokalemia POA Continue Calcitrol 1mcg Continue Tums 1500mg TID Continue slow mag Continue VIt D2 93090 unit daily continue aggressive replacement of lytes #HFmrEF #Moderate nonobstructive CAD ECHO from Aug 2023 shows EF 48% (improved from previous), no valvular abno rmalities Hold Entresto, Continue statin #DMTII HbA1c 6.3 in November 2023 Hold home agents Continue insulin while hospitalized Monitor BGs #PAD #Severe Left carotid stenosis s/p TCAR 12/2020, on aspirin/plavix Continue , statin Resume Plavix and aspirin when able -attempted to continue single agent given multiple risk factors for stroke/thrombosis etc; however, continued bleeding, will hold. #Prior right mca stroke 2018 Continue Statin Resume aspirin/plavix if able #Severe protein calorie malnutrition Weight loss, poor po intake, malignancy BMI now 20.0 (75 kilos in 08/2023, now 59 kilos) nutrition consult #Tobacco use disorder Refuses nicotine patch [employer] to quit smoking DVT scd admit med tele Admission and Anticipated Discharge Date Admission Date: February 23, 2024 Subjective Reports confusion with ativan Endorses lots of emotions with everything he has been dealing with. Notes that he has decided to pursue palliative radiation No further clots Physical Exam Constitutional: tired this morning, no distress mild anxiety Respiratory: tachycardia Gastrointestinal (Abdomen): normal bowel sounds, soft, nontender, no hepatosplenomegaly still gross hematuria in rain Results & Data Results & Data Vital Signs (Past 12 Hours) Vital Signs Temp Pulse Pulse Resp BP BP BP 02/26/24 12:41 36.8 C 95 H 18 118/72 02/26/24 11:40 36.6 C 85 18 115/72 02/26/24 10:40 36.7 C 80 18 107/70 02/26/24 09:40 36.7 C 89 18 114/73 02/26/24 09:10 36.7 C 100 H 18 132/76 02/26/24 08:51 36.8 C 100 H 18 134/72 02/26/24 08:29 36.8 C 73 18 130/79 02/26/24 07:46 36.8 C 105 H 15 138/82 02/26/24 07:31 94 H 02/26/24 03:10 36.8 C 94 H 18 128/71 Pulse Ox O2 Del Method 02/26/24 12:41 97 02/26/24 11:40 96 02/26/24 10:40 97 02/26/24 09:40 96 02/26/24 09:10 96 02/26/24 08:51 97 02/26/24 08:29 96 02/26/24 07:46 97 Room Air 02/26/24 07:31 02/26/24 03:10 96 Room Air Laboratory Results Short CBC 02/26/24 Range/Units 05:42 WBC 4.16 L (4.8-10.8) K/ul Hgb 7.0 L (14.0-18.0) g/dl Hct 22.0 L (42.0-52.0) % Plt Count 72 L (130-400) K/uL BMP 02/26/24 05:42 Sodium 136 Potassium 3.8 Chloride 106 Carbon Dioxide 22 BUN 18 Creatinine 1.17 Glucose 123 H Calcium 7.1 L Liver Function 02/26/24 Range/Units 05:42 Total Bilirubin 0.5 (0.2-1.0) mg/dl AST 45 H (13-39) U/L ALT 15 (7-52) U/L Alkaline Phosphatase 355 H (34-104) U/L Albumin 2.7 L (3.4-5.0) gm/dl Medications Administered Home Medications Medication Instructions Recorded Confirmed Last Taken atorvastatin 80 mg tablet 80 mg PO QPM 04/23/19 02/23/24 02/22/24 empagliflozin 25 mg tablet 25 mg PO QAM 05/31/21 02/23/24 02/15/24 (Jardiance) aspirin 81 mg tablet,delayed 81 mg PO QAM #30 tabs 06/03/21 02/23/24 02/23/24 release acetaminophen 500 mg tablet 500 - 1,000 mg PO Q6H PRN Pain 12/06/22 02/23/24 Unknown (Tylenol Extra Strength) clopidogrel 75 mg tablet 75 mg PO QAM 12/06/22 02/23/24 02/15/24 denosumab 120 mg/1.7 mL (70 mg/mL) 120 mg subcut MONTHLY 12/06/22 02/23/24 2 Months Ago subcutaneous solution (Xgeva) ~12/16/23 linagliptin 5 mg tablet (Tradjenta) 5 mg PO QAM 12/06/22 02/23/24 02/23/24 sacubitril 24 mg-valsartan 26 mg 1 tab PO BID 12/06/22 02/23/24 02/15/24 tablet (Entresto) tramadol 50 mg tablet 150 mg PO BID pain 08/01/23 02/23/24 02/23/24 08:00 morphine 15 mg immediate release 15 mg PO BID PRN Pain 01/11/24 02/23/24 02/14/24 tablet ondansetron HCl 8 mg tablet 8 mg PO DIRECTED PRN Nausea 01/11/24 02/23/24 Unknown potassium phosphate, monobasic 500 500 mg PO BID 01/11/24 02/23/24 02/23/24 08:00 mg soluble tablet (K-Phos Original) prochlorperazine maleate 10 mg 10 mg PO DIRECTED PRN Nausea 01/11/24 02/23/24 Unknown tablet morphine 15 mg tablet,extended 15 mg PO DAILY PRN Pain 02/15/24 02/23/24 02/14/24 release calcitriol 0.25 mcg capsule 1 mcg (4 x 0.25 mcg) PO QAM #120 0502/23/24 02/23/24 caps calcium carbonate (Tums) 1,500 mg (7.5 x 200 mg calcium 02/22/24 02/23/24 02/23/24 08:00 (500 mg)) PO TID #360 tabs cyanocobalamin (vitamin B-12) 500 1,000 mcg (2 x 500 mcg) PO QAM #60 02/22/24 02/23/24 02/23/24 mcg tablet tabs ergocalciferol (vitamin D2) 1,250 1,250 mcg PO DAILY #30 caps 02/22/24 02/23/24 02/23/24 mcg (50,000 unit) capsule ferrous sulfate 325 mg (65 mg 325 mg PO QAM #30 tabs 02/22/24 02/23/24 02/23/24 iron) tablet,delayed release lidocaine HCl 2 % mucosal jelly in 1 ml EXT BID #125 mL 02/22/24 02/23/24 02/23/24 08:00 applicator magnesium chloride 64 mg 64 mg PO BID #60 tabs 02/22/24 02/23/24 02/23/24 08:00 (magnesium chloride) tablet,delayed release (Mag 64) metoprolol tartrate 25 mg tablet 12.5 mg (1/2 x 25 mg) PO BID #30 02/22/24 02/23/24 02/23/24 08:00 tabs tamsulosin 0.4 mg capsule 0.4 mg PO QAM #30 caps 02/22/24 02/23/24 02/23/24 Active Medications Generic Name Dose Route Start Last Admin Trade Name José Antonioq PRN Reason Stop Dose Admin Aspirin 81 mg 02/24/24 09:00 02/26/24 08:53 Aspirin 81 Mg Ectab PO 03/25/24 08:59 81 mg QAM GENIA Administration Atorvastatin Calcium 80 mg 02/23/24 21:00 02/25/24 20:12 Atorvastatin 40 Mg Tab PO 03/24/24 20:59 80 mg QPM GENIA Administration Calcitriol 1 mcg 02/24/24 09:00 02/26/24 09:00 Calcitriol 0.25 Mcg Capsule PO 03/25/24 08:59 Not Given QAM GENIA Calcium Carbonate 1,500 mg 02/23/24 21:00 02/26/24 13:02 Calcium Carbonate 500 Mg Chewable Tab PO 03/24/24 20:59 Not Given TID GENIA Cyanocobalamin 1,000 mcg 02/24/24 09:00 02/26/24 09:00 Cyanocobalamin (B-12) 500 Mcg Tablet PO 03/25/24 08:59 Not Given QAM GENIA Ergocalciferol 1,250 mcg 02/24/24 09:00 02/26/24 09:00 Ergocalciferol 1250 Mcg (50,000 Units) Cap PO 03/25/24 08:59 Not Given DAILY GENIA Ferrous Sulfate 325 mg 02/24/24 09:00 02/26/24 09:00 Ferrous Sulfate 325 Mg Tab PO 03/25/24 08:59 Not Given QAM GENIA Lorazepam 0.5 mg/ Syringe 0.5 mls @ 2 mls/min 02/25/24 11:02 02/25/24 20:47 IV 03/26/24 11:01 2 mls/min Q8H PRN Administration Anxiety/Agitation Insulin Aspart 0 units 02/23/24 19:40 02/26/24 13:04 Insulin Aspart Per Unit Charge SC 03/24/24 19:39 1 units ACHS GENIA Administration Lidocaine HCl 1 ml 02/23/24 21:00 02/26/24 08:50 Lidocaine 2% Jelly 5 Ml Tube EXT 03/24/24 20:59 1 ml BID GENIA Administration Magnesium Chloride 64 mg 02/23/24 21:00 02/26/24 08:59 Magnesium Chloride W/Calcium 64mg Delayed Rel Tab PO 03/24/24 20:59 Not Given BID GENIA Metoprolol Tartrate 25 mg 02/24/24 09:00 02/26/24 08:52 Metoprolol Tartrate 25 Mg Tab PO 03/25/24 08:59 25 mg BID GENIA Administration Potassium Phosphate 2 tab 02/23/24 21:00 02/23/24 21:23 Pot Phosphate Monobasic W/ Sod Tab PO 03/24/24 20:59 2 tab BID GENIA Administration Tamsulosin HCl 0.4 mg 02/24/24 09:00 02/26/24 08:52 Tamsulosin Hcl 0.4 Mg Cap PO 03/25/24 08:59 0.4 mg QAM GENIA Administration Tramadol HCl 150 mg 02/23/24 21:00 02/26/24 08:56 Tramadol Hcl 50 Mg Tablet PO 03/24/24 20:59 150 mg BID GENIA Administration (1) Anemia Anemia type: unspecified type Qualified Code(s): D64.9 - Anemia, unspecified (2) Complication of Rain catheter Encounter type: initial encounter Qualified Code(s): T83.9XXA - Unspecified complication of genitourinary prosthetic device, implant and graft, initial en counter (3) Hematuria Hematuria type: unspecified type Qualified Code(s): R31.9 - Hematuria, unspecified
[2024-02-26 15:12] LABS: Hematocrit (blood only) 27.3 % (42.0-52.0); Hemoglobin 8.9 g/dl (14.0-18.0)
[2024-02-26] MEDS: busPIRone 5 MG TAB PO SCH (16:10)
[2024-02-26] MEDS: MoRPHine SULFATE IR 15 MG TAB (IMMEDIATE RELEASE) PO PRN (16:41)
[2024-02-26] MEDS: oxyCODONE HCL IR 5 MG TAB (IMMEDIATE RELEASE) PO PRN (22:28)
[2024-02-27 07:40] LABS: Hematocrit (blood only) 27.8 % (42.0-52.0); Mean Corpuscular Hemoglobin 28.5 pg (25.0-34.0); Mean Corpuscular Hgb Conc 32.4 g/dL (32.0-36.0); Mean Platelet Volume 9.6 fL (9.4-12.4); Nucleated RBC # (auto) 0.03 K/uL (0.00-0.12); Nucleated RBC % (auto) 0.5 %; Platelet Count 74 K/uL (130-400); RDW Coefficient of Variation 18.8 % (11.5-14.5); RDW Standard Deviation 61.4 fL (36.4-46.3); Red Blood Count 3.16 M/uL (4.70-6.10); White Blood Count 5.87 K/ul (4.8-10.8)
[2024-02-27 07:51] LABS: Albumin Globulin Ratio 0.9 (0.9-2); Albumin Level 2.8 gm/dl (3.4-5.0); BUN Creatinine Ratio 14.9 (10-20); Bilirubin,Total 0.6 mg/dl (0.2-1.0); Calcium 7.3 mg/dl (8.6-10.3); Creatinine Clr Calc Pharmacy 56.7 ml/min; Est GFR (African American) 78.3 ml/min; Est GFR (Non-African American) 67.6 ml/min; Magnesium 1.9 mg/dl (1.7-2.4); Phosphorus 2.6 mg/dl (2.5-4.9); Potassium 3.8 mmol/L (3.5-5.1); Total Protein 5.8 gm/dl (6.0-8.3)
--- NOTE | 2024-02-27 18:04 | Hospitalist Progress Note ---
Date of Service February 27, 2024 Assessment & Plan (1) Anemia: (2) Complication of Rain catheter: (3) Hematuria: (4) Hypocalcemia syndrome: (5) History of CVA (cerebrovascular accident): (6) HFrEF (heart failure with reduced ejection fraction): (7) Pancytopenia due to chemotherapy: (8) Prostate cancer metastatic to bone: (9) HLD (hyperlipidemia): (10) HTN (hypertension): (11) DM2 (diabetes mellitus, type 2): (12) PAD (peripheral artery disease): (13) BPH with obstruction/lower urinary tract symptoms: Plan 63 yr male with H/O Metastatic prostate cancer on chemotherapy, type 2 diabetes, PAD, HFrEF, hypertension, CKD 3, CVA, tobacco use disorder was admitted for cl otting of rain. Patient with hematuria s/p TURP on 02/17, with stable anemia. Patient discharged and rain continued to clot at home prompting presentation. Hematuria ISO prostate cancer metastatic poor bone Recent obstructive uropathy s/p TURP Adenocarcinoma prostate, bladder involvement , h/o Acute on chronic anemia Clotting of Rain catheter Ongoing cancer treatment, previously on chemo (discontinued in November), received first dose of Pluvicto treatment at [facility] [place], received for the first time 01/03/22 but subsequent treatment was postponed due to anemia Patient presented with recurrent clotting of Rain catheter after TURP on 02/17. admitting hemoglobin of 7.8, hemoglobin dropped to 6.2 the following day. 2 unit PRBC so far, monitor H&H. Uro evaled, c/w rain, hold plavix, c/w tamsulosin Patient with persistent hematuria, Urology discussed options per note with patient: radiation v nephrostomy tubes to divert urine from bladder. Patient wishes to trial radiation and if unsuccessful will go for nephrostomy placement. Per urology: "Hematuria seems most likely related to dysplastic tissue in the bladder and raw surfaces from recent resection. This may be further irritated by having the indwelling stents in place. " Rad onc following. CT stim for treatment planning, plan for palliative radiation Palliative following. -Continue full treatment spectrum -Patient wishes to pursue all options unless there is "no hope" Anxiety: Lorazepam led to delirium, wishes to discontinue, hence dc'd. BuSpar has been started 5 mg 3 times daily, continue Acute on Chronic anemia, multifactorial POA Pancytopenia--POA Likely secondary to chemotherapy/Bone marrow suppression, B12 and Iron deficiency In setting of ongoing prostate cancer chemotherapy Currently hematuria contributing as well --S/P 2 units PRBCs so far Platelet count stable Continue Iron and Vitamin B12 supplements Hold plavix and now asa, resume as able given multiple comorbidities below Transfuse HH <7 Acute kidney injury over CKD stage III: CARLA suspected to be secondary to renal toxicity likely from Plucivto; Obstructive uropathy, atrophic kidney contributing as well. Appears to have resolved. avoid nephrotoxic agents. Resume home meds as able. Entresto on hold, low normal BP. NSVT, PVCs, sinus tachycardia: Continue home metoprolol. Continue telemetry monitoring. Electrolyte abnormalities: Monitor replete. Continue Tums/Slow-Mag/vitamin D2 supplement/calcitriol HFmrEF Moderate nonobstructive CAD ECHO from Aug 2023 shows EF 48% (improved from previous), no valvular abnormalities Hold Entresto - see above. Continue statin DMTII: ssi. A1c 6.02 december 2023. PAD Severe Left carotid stenosis s/p TCAR 12/2020, on aspirin/plavix Continue , statin Resume Plavix and aspirin when able -attempted to continue single agent given multiple risk factors for stroke/thrombosis etc; however, continued bleeding, will hold. Prior right mca stroke 2019: Continue Statin. Resume aspirin/plavix if able Severe protein calorie malnutrition: Weight loss, poor po intake, malignancy . BMI now 20.0 (75 kilos in 08/2023, now 59 kilos). 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 Swabber to quit smoking DVT scd admit med tele PT/OT. Admission and Anticipated Discharge Date Admission Date: February 23, 2024 Subjective Patient was seen and examined at bedside. Patient was lying in bed, on room air, NAD, not in any acute distress. Patient reports eating okay and moving bowels okay, reports feeling better, denies febrile illness or headache or dizziness or chest pain. Patient asked if he can go outside to smoke, I refused, patient was upset, I offered him nicotine patch, patient declined. Physical Exam Physical Exam: GENERAL: Alert and oriented x3. NAD, on RA. Appears weak/frail HEENT: No pallor, no icterus. Pupils equal, round and reactive to light. Oral mucosa moist. NECK: No JVD, no neck masses. HEART: S1 and S2 heard. Regular rate and rhythm. No murmur, no gallop. RESPIRATORY SYSTEM: Normal AP diameter. No accessory muscle use. No wheezing, no crackles. ABDOMEN: Soft, bowel sounds present, nontender, no distention. CENTRAL NERVOUS SYSTEM: No facial droop. Speech is clear. Obeys simple commands. Moves extremities. EXTREMITIES: No edema, no erythema seen. UC w/ red urine. Results & Data Results & Data Vital Signs (Past 12 Hours) Vital Signs Temp Pulse Pulse Resp BP BP Pulse Ox 02/27/24 15:35 94 H 02/27/24 15:16 36.6 C 87 18 113/68 99 02/27/24 11:33 36.6 C 71 14 125/81 97 02/27/24 07:41 36.5 C 95 H 16 150/81 H 99 02/27/24 07:21 87 O2 Del Method 02/27/24 15:35 02/27/24 15:16 Room Air 02/27/24 11:33 Room Air 02/27/24 07:41 Room Air 02/27/24 07:21 (1) Anemia Anemia type: unspecified type Qualified Code(s): D64.9 - Anemia, unspecified (2) Complication of Rain catheter Encounter type: initial encounter Qualified Code(s): T83.9XXA - Unspecified complication of genitourinary prosthetic device, implant and graft, initial encounter (3) Hematuria Hematuria type: unspecified type Qualified Code(s): R31.9 - Hematuria, unspecified
--- NOTE | 2024-02-27 20:31 | Urology Progress Note ---
Date of Service February 27, 2024 Assessment & Plan (1) Anemia: (2) Hematuria: (3) Prostate cancer metastatic to bone: Plan Patient afebrile and hemodynamically stable at present Labs reviewed - hemoglobin 9.0 (received PRBC transfusion yesterday); Creatinine 1.14; WBC 5.87 Urine culture 02/22 was negative Velasquez currently draining light mckeon red urine without clot Rad Onc note reviewed- Pt to proceed with palliative radiation to the bladder. Palliative care consulted. Hematuria seems most likely related to dysplastic tissue in the bladder and raw surfaces from recent resection. This may be further irritated by having the indwelling stents in place. Would recommend continuing to monitor urine output. Okay to hand irrigate as needed for clots, obstruction, suprapubic pain. No plan for surgical intervention as cystoscopy and cauterization would be a temporizing measure as the hematuria will recur. There is a chance that the stents are irritating the raw surfaces in the bladder and causing further bleeding. Depending on clinical course, may be worth considering conversion to nephrostomy tubes. Continue to trend labs and transfuse as necessary per primary service. Continue supportive care. Urology will follow along. Admission and Anticipated Discharge Date Admission Date: February 23, 2024 Subjective Patient seen and examined at bedside this morning No acute distress Velasquez draining w/hematuria without clot No flank or suprapubic pain No fevers Pt requesting to go outside Pt went for CT stim this morning for palliative treatment planning Review of Systems Constitutional: as per Subjective / HPI Genitourinary: + as per Subjective / HPI Physical Exam Constitutional: no acute distress Respiratory: no respiratory distress and no labored breathing Neurologic: awake Psychiatric: Orientation: alert and oriented x 3 Genitourinary: Velasquez intact and draining w/hematuria Results & Data Vital Signs (Past 12 Hours) Vital Signs Temp Pulse Pulse Resp BP Pulse Ox O2 Del Method 02/27/24 19:56 36.5 C 87 16 103/64 99 Room Air 02/27/24 15:35 94 H 02/27/24 15:16 36.6 C 87 18 113/68 99 Room Air 02/27/24 11:33 36.6 C 71 14 125/81 97 Room Air PG Care Time/CCT Total # of Minutes Spent Total Time Spent with Patient: Total time spent is greater than 50% in coordination of care (as documented) at patient's floor/unit and/or counseling patient: Coding Level of Care Code 90638 SUB INP/OBS CARE MIN Diagnoses Anemia D64.9 Anemia type: unspecified type Hematuria R31.9 Hematuria type: unspecified type Prostate cancer metastatic to bone C61; C79.51 (1) Anemia Anemia type: unspecified type Qualified Code(s): D64.9 - Anemia, unspecified (2) Hematuria Hematuria type: unspecified type Qualified Code(s): R31.9 - Hematuria, unspecified
[2024-02-28 06:26] LABS: BUN Creatinine Ratio 14.5 (10-20); Calcium 7.3 mg/dl (8.6-10.3); Creatinine Clr Calc Pharmacy 57.2 ml/min; Est GFR (African American) 81.8 ml/min; Est GFR (Non-African American) 70.6 ml/min; Magnesium 1.9 mg/dl (1.7-2.4); Phosphorus 2.5 mg/dl (2.5-4.9); Potassium 3.6 mmol/L (3.5-5.1)
[2024-02-28 06:34] LABS: Hematocrit (blood only) 25.6 % (42.0-52.0); Hemoglobin 8.3 g/dl (14.0-18.0); Mean Corpuscular Hemoglobin 28.4 pg (25.0-34.0); Mean Corpuscular Hgb Conc 32.4 g/dL (32.0-36.0); Mean Corpuscular Volume 87.7 fL (80.0-100.0); Mean Platelet Volume 9.7 fL (9.4-12.4); Nucleated RBC # (auto) 0.03 K/uL (0.00-0.12); Nucleated RBC % (auto) 0.6 %; Platelet Count 69 K/uL (130-400); RDW Coefficient of Variation 18.4 % (11.5-14.5); RDW Standard Deviation 59.3 fL (36.4-46.3); Red Blood Count 2.92 M/uL (4.70-6.10)
--- NOTE | 2024-02-28 13:59 | Urology Progress Note ---
Date of Service February 28, 2024 Assessment & Plan (1) Anemia: (2) Hematuria: (3) Prostate cancer metastatic to bone: Plan Patient afebrile and hemodynamically stable at present Labs reviewed - hemoglobin 8.3; Creatinine 1.10; WBC 5.30 Urine culture 02/22 was negative Velasquez currently draining light mckeon red urine without clot Hematuria seems most likely related to dysplastic tissue in the bladder and raw surfaces from recent resection. This may be further irritated by having the indwelling stents in place. No plan for surgical intervention as cystoscopy and cauterization would be a temporizing measure as the hematuria will recur. There is a chance that the stents are irritating the raw surfaces in the bladder and causing further bleeding. Depending on clinical course, may be worth considering conversion to nephrostomy tubes. Pt to proceed with palliative radiation to the bladder. Per patient, he is scheduled for first treatment today 02/27. We discussed catheter removal for void trial, however patient prefers to maintain the catheter for now and reeval for possible removal in 1-2 days after starting radiation. Maintain catheter and monitor urine output. Okay to hand irrigate as needed for clots, obstruction, suprapubic pain. Continue to trend labs and transfuse as necessary per primary service. Continue supportive care. Urology will follow along. Plan reviewed with Dr. Chaudhari, on-call urologist. Admission and Anticipated Discharge Date Admission Date: February 23, 2024 Subjective Patient seen and examined at bedside this morning No acute distress Velasquez draining w/hematuria. No clots visualized. No flank or suprapubic pain No fevers Pt reports he is going for palliative radiation to the bladder today Review of Systems Constitutional: as per Subjective / HPI Genitourinary: + as per Subjective / HPI Physical Exam Constitutional: no acute distress Respiratory: no respiratory distress and no labored breathing Neurologic: awake Psychiatric: Orientation: alert and oriented x 3 Genitourinary: Velasquez intact and draining w/hematuria Results & Data Vital Signs (Past 12 Hours) Vital Signs Temp Pulse Pulse Resp BP Pulse Ox O2 Del Method 02/28/24 11:52 36.6 C 73 20 99/63 L 99 Room Air 02/28/24 08:22 36.8 C 83 18 125/77 97 Room Air 02/28/24 07:06 79 02/28/24 05:24 36.7 C 79 20 118/72 97 Room Air PG Care Time/CCT Total # of Minutes Spent Total Time Spent with Patient: Total time spent is greater than 50% in coordination of care (as documented) at patient's floor/unit and/or counseling patient: Coding Level of Care Code 42449 SUB INP/OBS CARE 2/35MIN Diagnoses Anemia D64.9 Anemia type: unspecified type Hematuria R31.9 Hematuria type: unspecified type Prostate cancer metastatic to bone C61; C79.51 (1) Anemia Anemia type: unspecified type Qualified Code(s): D64.9 - Anemia, unspecified (2) Hematuria Hematuria type: unspecified type Qualified Code(s): R31.9 - Hematuria, unspecified
--- NOTE | 2024-02-28 16:44 | Hospitalist Progress Note ---
Date of Service February 28, 2024 Assessment & Plan (1) Anemia: (2) Complication of Rain catheter: (3) Hematuria: (4) Hypocalcemia syndrome: (5) History of CVA (cerebrovascular accident): (6) HFrEF (heart failure with reduced ejection fraction): (7) Pancytopenia due to chemotherapy: (8) Prostate cancer metastatic to bone: (9) HLD (hyperlipidemia): (10) HTN (hypertension): (11) DM2 (diabetes mellitus, type 2): (12) PAD (peripheral artery disease): (13) BPH with obstruction/lower urinary tract symptoms: Plan 63 yr male with H/O Metastatic prostate cancer on chemotherapy, type 2 diabetes, PAD, HFrEF, hypertension, CKD 3, CVA, tobacco use disorder was admitted for cl otting of rain. Patient with hematuria s/p TURP on 02/17, with stable anemia. Patient discharged and rain continued to clot at home prompting presentation. Hematuria ISO prostate cancer metastatic poor bone Recent obstructive uropathy s/p TURP Adenocarcinoma prostate, bladder involvement , h/o Acute on chronic anemia Clotting of Rain catheter Ongoing cancer treatment, previously on chemo (discontinued in November), [place] [facility] [place] but subsequent treatment was postponed due to anemia Patient presented with recurrent clotting of Rain catheter after TURP on 02/17. admitting hemoglobin of 7.8, hemoglobin dropped to 6.2 the following day. 2 unit PRBC so far, monitor H&H. Uro evaled, c/w rain, hold plavix, c/w tamsulosin Patient with persistent hematuria, Urology discussed options per note with patient: radiation v nephrostomy tubes to divert urine from bladder. Patient wishes to trial radiation and if unsuccessful will go for nephrostomy placement. Per urology: "Hematuria seems most likely related to dysplastic tissue in the bladder and raw surfaces from recent resection. This may be further irritated by having the indwelling stents in place. " Rad onc following. CT stim for treatment planning, plan for palliative radiation from 02/27. Palliative following. -Continue full treatment spectrum -Patient wishes to pursue all options unless there is "no hope" Anxiety: Lorazepam led to delirium, wishes to discontinue, hence dc'd. BuSpar has been started 5 mg 3 times daily, continue Acute on Chronic anemia, multifactorial POA Pancytopenia--POA Likely secondary to chemotherapy/Bone marrow suppression, B12 and Iron def iciency In setting of ongoing prostate cancer chemotherapy Currently hematuria contributing as well --S/P 2 units PRBCs so far Platelet count stable Continue Iron and Vitamin B12 supplements Hold plavix and now asa, resume as able given multiple comorbidities below Transfuse HH <7 Acute kidney injury over CKD stage III: CARLA suspected to be secondary to renal toxicity likely from Plucivto; Obstructive uropathy, atrophic kidney contributing as well. Appears to have resolved. avoid nephrotoxic agents. Resume home meds as able. Entresto on hold, low normal BP. NSVT, PVCs, sinus tachycardia: Continue home metoprolol. Continue telemetry monitoring. Electrolyte abnormalities: Monitor replete. Continue Tums/Slow-Mag/vitamin D2 supplement/calcitriol HFmrEF Moderate nonobstructive CAD ECHO from Aug 2023 shows EF 48% (improved from previous), no valvular abnormalities Hold Entresto - see above. Continue statin DMTII: ssi. A1c 6.02 december 2023. PAD Severe Left carotid stenosis s/p TCAR 12/2020, on aspirin/plavix Continue , statin Resume Plavix and aspirin when able -attempted to continue single agent given multiple risk factors for stroke/thrombosis etc; however, continued bleeding, will hold. Prior right mca stroke 2019: Continue Statin. Resume aspirin/plavix if able Severe protein calorie malnutrition: Weight loss, poor po intake, malignancy . BMI now 20.0 (75 kilos in 08/2023, now 59 kilos). 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 Admission and Anticipated Discharge Date Admission Date: February 23, 2024 Subjective Patient was seen and examined at bedside. Patient was lying in bed, on room air, NAD, not in any acute distress. Patient reports eating okay and moving bowels okay, reports feeling better, denies febrile illness or headache or dizziness or chest pain. Physical Exam Physical Exam: GENERAL: Alert and oriented x3. NAD, on RA. Appears weak/frail HEENT: No pallor, no icterus. Pupils equal, round and reactive to light. Oral mucosa moist. NECK: No JVD, no neck masses. HEART: S1 and S2 heard. Regular rate and rhythm. No murmur, no gallop. RESPIRATORY SYSTEM: Normal AP diameter. No accessory muscle use. No wheezing, no crackles. ABDOMEN: Soft, bowel sounds present, nontender, no distention. CENTRAL NERVOUS SYSTEM: No facial droop. Speech is clear. Obeys simple commands. Moves extremities. EXTREMITIES: No edema, no erythema seen. UC w/ red urine. Results & Data Results & Data Vital Signs (Past 12 Hours) Vital Signs Temp Pulse Pulse Resp BP Pulse Ox O2 Del Method 02/28/24 11:52 36.6 C 73 20 99/63 L 99 Room Air 02/28/24 08:22 36.8 C 83 18 125/77 97 Room Air 02/28/24 07:06 79 02/28/24 05:24 36.7 C 79 20 118/72 97 Room Air (1) Anemia Anemia type: unspecified type Qualified Code(s): D64.9 - Anemia, unspecified (2) Complication of Rain catheter Encounter type: initial encounter Qualified Code(s): T83.9XXA - Unspecified complication of genitourinary prosthetic device, implant and graft, initial encounter (3) Hematuria Hematuria type: unspecified type Qualified Code(s): R31.9 - Hematuria, unspecified
[2024-02-29 06:05] LABS: Hematocrit (blood only) 29.1 % (42.0-52.0); Hemoglobin 9.5 g/dl (14.0-18.0); Mean Corpuscular Hemoglobin 29.1 pg (25.0-34.0); Mean Corpuscular Hgb Conc 32.6 g/dL (32.0-36.0); Mean Platelet Volume 9.6 fL (9.4-12.4); Platelet Count 75 K/uL (130-400); RDW Coefficient of Variation 18.4 % (11.5-14.5); RDW Standard Deviation 60.2 fL (36.4-46.3); Red Blood Count 3.27 M/uL (4.70-6.10); White Blood Count 6.12 K/ul (4.8-10.8)
[2024-02-29 06:12] LABS: BUN Creatinine Ratio 14.7 (10-20); Calcium 7.7 mg/dl (8.6-10.3); Creatinine Clr Calc Pharmacy 54.2 ml/min; Est GFR (African American) 76.7 ml/min; Est GFR (Non-African American) 66.2 ml/min; Magnesium 1.9 mg/dl (1.7-2.4); Phosphorus 2.4 mg/dl (2.5-4.9); Potassium 3.8 mmol/L (3.5-5.1)
[2024-02-29] MEDS ORDERED: POTASSIUM PHOS 3 MMOL/1 ML INFUSION IV STA (08:31)
[2024-02-29] MEDS: POTASSIUM PHOSPHATE 15 MMOL in SODIUM CHLORIDE 0.9% 250 ML IV ONE (09:55)
--- NOTE | 2024-02-29 14:17 | Urology Progress Note ---
Date of Service February 29, 2024 Assessment & Plan (1) Anemia: (2) Hematuria: (3) Prostate cancer metastatic to bone: Plan Patient afebrile and hemodynamically stable at present Labs reviewed - hemoglobin 9.5; Creatinine 1.16; WBC 6.12 Urine culture 02/22 was negative Velasquez currently draining light mckeon red urine without clot Hematuria seems most likely related to dysplastic tissue in the bladder and raw surfaces from recent resection. This may be further irritated by having the indwelling stents in place. No plan for surgical intervention as cystoscopy and cauterization would be a temporizing measure as the hematuria will recur. There is a chance that the stents are irritating the raw surfaces in the bladder and causing further bleeding. Depending on clinical course, may need to consider conversion to nephrostomy tubes. Plan is for palliative radiation to the bladder, pt started treatments 02/27. We discussed catheter removal for void trial, however patient prefers to maintain the catheter for now and reeval for possible removal in new few days. Maintain catheter and monitor urine output. Okay to hand irrigate as needed for clots, obstruction, suprapubic pain. Continue to trend labs and transfuse as necessary per primary service. Continue supportive care. Urology will follow peripherally. Admission and Anticipated Discharge Date Admission Date: February 23, 2024 Subjective Patient seen and examined at bedside this morning No acute distress Velasquez draining w/hematuria. No clots visualized. No flank or suprapubic pain No fevers Review of Systems Constitutional: as per Subjective / HPI Genitourinary: + as per Subjective / HPI Physical Exam Constitutional: no acute distress Respiratory: no respiratory distress and no labored breathing Neurologic: awake Psychiatric: Orientation: alert and oriented x 3 Genitourinary: Velasquez intact and draining w/hematuria Results & Data Vital Signs (Past 12 Hours) Vital Signs Temp Pulse Pulse Resp BP BP Pulse Ox 02/29/24 11:47 36.6 C 76 16 112/71 99 02/29/24 07:31 81 02/29/24 07:26 36.9 C 89 17 131/77 98 02/29/24 04:08 36.6 C 84 20 120/73 98 O2 Del Method 02/29/24 11:47 Room Air 02/29/24 07:31 02/29/24 07:26 Room Air 05/31/24 04:08 Room Air PG Care Time/CCT Total # of Minutes Spent Total Time Spent with Patient: Total time spent is greater than 50% in coordination of care (as documented) at patient's floor/unit and/or counseling patient: Coding Level of Care Code 45941 SUB INP/OBS CARE 2/35MIN Diagnoses Anemia D64.9 Anemia type: unspecified type Hematuria R31.9 Hematuria type: unspecified type Prostate cancer metastatic to bone C61; C79.51 (1) Anemia Anemia type: unspecified type Qualified Code(s): D64.9 - Anemia, unspecified (2) Hematuria Hematuria type: unspecified type Qualified Code(s): R31.9 - Hematuria, unspecified
--- NOTE | 2024-02-29 15:13 | Hospitalist Progress Note ---
Date of Service February 29, 2024 Assessment & Plan (1) Anemia: (2) Complication of Rain catheter: (3) Hematuria: (4) Hypocalcemia syndrome: (5) History of CVA (cerebrovascular accident): (6) HFrEF (heart failure with reduced ejection fraction): (7) Pancytopenia due to chemotherapy: (8) Prostate cancer metastatic to bone: (9) HLD (hyperlipidemia): (10) HTN (hypertension): (11) DM2 (diabetes mellitus, type 2): (12) PAD (peripheral artery disease): (13) BPH with obstruction/lower urinary tract symptoms: Plan 63 yr male with H/O Metastatic prostate cancer on chemotherapy, type 2 diabetes, PAD, HFrEF, hypertension, CKD 3, CVA, tobacco use disorder was admitted for cl otting of rain. Patient with hematuria s/p TURP on 02/17, with stable anemia. Patient discharged and rain continued to clot at home prompting presentation. Hematuria insetting of prostate cancer metastaticto bone Recent obstructive uropathy s/p TURP Adenocarcinoma prostate, bladder involvement Acute on chronic anemia Clotting of Rain catheter Ongoing cancer treatment, previously on chemo (discontinued in November), [place] [facility] [place] but subsequent treatment was postponed due to anemia Patient presented with recurrent clotting of Rain catheter after TURP on 02/17. Admitting hemoglobin of 7.8, hemoglobin dropped to 6.2 the following day. 2 unit PRBC so far, monitor hemoglobin which has remained stable more than 9 Seen by urology, c/w rain, hold plavix, c/w tamsulosin Patient with persistent hematuria, Urology discussed options per note with patient: radiation v nephrostomy tubes to divert urine from bladder. Patient wishes to trial radiation and if unsuccessful will go for nephrostomy placement. Per urology: "Hematuria seems most likely related to dysplastic tissue in the bladder and raw surfaces from recent resection. This may be further irritated by having the indwelling stents in place. " Will continue to hold aspirin/Plavix. It been reported to hold them until after radiation treatment is completed to ensure hematuria does not recur, however will defer to PCP, depending on improvement. Rad onc following- started on palliative radiation from 02/27. Palliative following. -Continue full treatment spectrum -Patient wishes to pursue all options unless there is "no hope" Anxiety: Lorazepam led to delirium, wishes to discontinue, hence discontinued. BuSpar has been started 5 mg 3 times daily, continue Acute on Chronic anemia, multifactorial POA In setting of ongoing prostate cancer chemotherapy Currently hematuria contributing to anemia --S/P 2 units PRBCs so far Platelet count stable, hemoglobin stable Continue Iron and Vitamin B12 supplements Hold plavix and now asa, resume as able given multiple comorbidities below Transfuse HH <7 Acute kidney injury over CKD stage III: CARLA suspected to be secondary to renal toxicity likely from Plucivto; Obstructive uropathy, atrophic kidney contributing as well. Appears to have resolved. avoid nephrotoxic agents. Resume home meds as able. Entresto on hold, low normal BP. will resume Entresto as indicated. HFrEF/Moderate nonobstructive CAD ECHO from Aug 2023 shows EF 48% (improved from previous), no valvular abnormalities Will resume Entresto as indicated. Continue metoprolol. DM-II: ssi. A1c 6.02 december 2023. PAD, Severe Left carotid stenosis s/p TCAR 12/2020, on aspirin/plavix- Currently on hold due to hematuria. Continue statin. Resume antiplatelet when stable to resume but will introduce 1 at a time so as not to worsen bleeding. Prior right MCA stroke 2019: Continue Statin. Resume aspirin/plavix if able Severe protein calorie malnutrition: Weight loss, poor po intake, malignancy . BMI now 20.0 (75 kilos in 08/2023, now 59 kilos). 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 Likely discharge on Sunday after removing Rain's if hematuria resolved. Updated at bedside Time spent- approximately 50 minutes Admission and Anticipated Discharge Date Admission Date: February 23, 2024 Subjective Patient was seen and examined at bedside in presence of . Patient is upset and very emotional today from the event yesterday and is very concerned about going home that her urine that his hematuria might come back and did not have a way to manage at home. also states he is weak and has not really walked much. He would like to get monitor over the weekend for hematuria and probably take the Rain out on Sunday prior to going home. He has been started on radiation treatment. no fever, chills, chest pain or shortness of breath nausea or vomiting. Review of Systems Review of Systems: All systems reviewed & are unremarkable except as noted in Subjective Physical Exam Physical Exam: General: Lying comfortably in bed, not in distress, on room air HEENT: EOMI, VERO, MMM Chest: Clear breath sounds bilaterally, no wheezes or crackles CVS: Regular rate and rhythm, normal heart sounds, no murmur Abdomen: Soft, non tender, not distended, normal bowel sounds Neuro: Awake, alert, oriented, conversing well, non focal Extremities: No edema Rain with blood-tinged urine Psych: emotional, tearful Results & Data Results & Data Vital Signs (Past 12 Hours) Vital Signs Temp Pulse Pulse Resp BP BP Pulse Ox 02/29/24 11:47 36.6 C 76 16 112/71 99 02/29/24 07:31 81 02/29/24 07:26 36.9 C 89 17 131/77 98 02/29/24 04:08 36.6 C 84 20 120/73 98 O2 Del Method 02/29/24 11:47 Room Air 02/29/24 07:31 02/29/24 07:26 Room Air 02/29/24 04:08 Room Air Laboratory Results Short CBC 02/29/24 Range/Units 05:20 WBC 6.12 (4.8-10.8) K/ul Hgb 9.5 L (14.0-18.0) g/dl Hct 29.1 L (42.0-52.0) % Plt Count 75 L (130-400) K/uL BMP 02/29/24 05:20 Sodium 137 Potassium 3.8 Chloride 105 Carbon Dioxide 23 BUN 17 Creatinine 1.16 Glucose 115 H Calcium 7.7 L Medications Administered Current Inpatient Medications Acetaminophen (Acetaminophen 325 Mg Tab) 650 mg PO Q4H PRN PRN Reason: Pain or Fever Stop: 03/24/24 20:23 Atorvastatin Calcium (Atorvastatin 40 Mg Tab) 80 mg PO QPM [facility] Stop: 03/24/24 20:59 Last Admin: 02/28/24 20:37 Dose: 80 mg Buspirone HCl (Buspirone 5 Mg Tab) 5 mg PO TID GENIA Stop: 03/27/24 14:29 Last Admin: 02/29/24 13:24 Dose: 5 mg Calcitriol (Calcitriol 0.25 Mcg Capsule) 1 mcg PO QAM [facility] Stop: 03/25/24 08:59 Last Admin: 02/29/24 08:09 Dose: 1 mcg Calcium Carbonate (Calcium Carbonate 500 Mg Chewable Tab) 1,500 mg PO TID [facility] Stop: 03/24/24 20:59 Last Admin: 02/29/24 13:24 Dose: 1,500 mg Cyanocobalamin (Cyanocobalamin (B-12) 500 Mcg Tablet) 1,000 mcg PO QAM [facility] Stop: 03/25/24 08:59 Last Admin: 02/29/24 08:10 Dose: 1,000 mcg Dextrose (Dextrose 50% 50 Ml Syringe) 25 - 50 ml IV UD PRN; Protocol PRN Reason: Hypoglycemia Protocol Stop: 03/24/24 19:37 Ergocalciferol (Ergocalciferol 1250 Mcg (50,000 Units) Cap) 1,250 mcg PO DAILY GENIA Stop: 03/25/24 08:59 Last Admin: 02/29/24 08:09 Dose: 1,250 mcg Ferrous Sulfate (Ferrous Sulfate 325 Mg Tab) 325 mg PO QAM [facility] Stop: 03/25/24 08:59 Last Admin: 02/29/24 08:10 Dose: 325 mg Glucagon (Glucagon For Inj 1 Mg Vial) 1 mg SQ UD PRN; Protocol PRN Reason: Hypoglycemia Protocol Stop: 03/24/24 19:37 Glucose (Glucose 40% Gel 15 Gm Tube) 15 - 30 gm PO UD PRN; Protocol PRN Reason: Hypoglycemia Protocol Stop: 03/24/24 19:37 Glucose (Glucose 10 Tab/Tube) 4 - 8 tab PO UD PRN; Protocol PRN Reason: Hypoglycemia Treatment Stop: 03/24/24 19:37 Lorazepam 0.5 mg/ Syringe 0.5 mls @ 2 mls/min IV Q8H PRN PRN Reason: Anxiety/Agitation Stop: 03/26/24 11:01 Last Admin: 02/25/24 20:47 Dose: 2 mls/min Insulin Aspart (Insulin Aspart Per Unit Charge) 0 units SC ACHS [facility] Stop: 03/24/24 19:39 Last Admin: 02/29/24 13:24 Dose: 1 units Lidocaine HCl (Lidocaine 2% Jelly 5 Ml Tube) 1 ml EXT BID [facility] Stop: 03/24/24 20:59 Last Admin: 02/29/24 08:11 Dose: 1 ml Magnesium Chloride (Magnesium Chloride W/Calcium 64mg Delayed Rel Tab) 64 mg PO BID [facility] Stop: 03/24/24 20:59 Last Admin: 02/29/24 08:10 Dose: 64 mg Metoprolol Tartrate (Metoprolol Tartrate 25 Mg Tab) 25 mg PO BID GENIA Stop: 03/25/24 08:59 Last Admin: 02/29/24 08:10 Dose: 25 mg Miscellaneous (Carbohydrates For Hypoglycemia ) 15 - 30 gm PO UD PRN PRN Reason: Hypoglycemia Protocol Stop: 03/24/24 19:37 Morphine Sulfate (Morphine Sulfate Ir 15 Mg Tab (Immediate Release)) 20 mg PO Q4H PRN PRN Reason: cancer pain Stop: 03/08/24 20:23 Last Admin: 02/29/24 08:09 Dose: 20 mg Ondansetron HCl (Ondansetron Inj 2 Mg/Ml 2 Ml Vial) 4 mg IV Q6H PRN PRN Reason: Nausea Stop: 03/24/24 20:23 Oxycodone HCl (Oxycodone Hcl Ir 5 Mg Tab (Immediate Release)) 5 mg PO Q6H PRN PRN Reason: Severe Pain (Scale 7, 8, 9,10) Stop: 03/11/24 22:11 Last Admin: 02/26/24 22:28 Dose: 5 mg Polyethylene Glycol (Polyethylene (Miralax) 17 Gm Pack) 17 gm PO DAILY PRN PRN Reason: Constipation Stop: 03/24/24 20:23 Potassium Phosphate (Pot Phosphate Monobasic W/ Sod Tab) 2 tab PO BID [facility] Stop: 03/24/24 20:59 Last Admin: 02/23/24 21:23 Dose: 2 tab Prochlorperazine (Prochlorperazine Maleate 10 Mg Tab) 10 mg PO TID PRN PRN Reason: Nausea Stop: 03/24/24 20:23 Tamsulosin HCl (Tamsulosin Hcl 0.4 Mg Cap) 0.4 mg PO QAM [facility] Stop: 03/25/24 08:59 Last Admin: 02/29/24 08:10 Dose: 0.4 mg Tramadol HCl (Tramadol Hcl 50 Mg Tablet) 150 mg PO BID [facility] Stop: 03/24/24 20:59 Last Admin: 02/29/24 09:58 Dose: 150 mg (1) Anemia Anemia type: unspecified type Qualified Code(s): D64.9 - Anemia, unspecified (2) Complication of Rain catheter Encounter type: initial encounter Qualified Code(s): T83.9XXA - Unspecified complication of genitourinary prosthetic device, implant and graft, initial encounter (3) Hematuria Hematuria type: unspecified type Qualified Code(s): R31.9 - Hematuria, unspecified
[2024-03-01] MEDS: ONDANSETRON INJ 2 MG/ML 2 ML VIAL IV PRN (05:03)
[2024-03-01 05:52] LABS: Hematocrit (blood only) 27.3 % (42.0-52.0); Hemoglobin 8.8 g/dl (14.0-18.0); Mean Corpuscular Hemoglobin 28.6 pg (25.0-34.0); Mean Corpuscular Hgb Conc 32.2 g/dL (32.0-36.0); Mean Corpuscular Volume 88.6 fL (80.0-100.0); Mean Platelet Volume 9.5 fL (9.4-12.4); Platelet Count 60 K/uL (130-400); RDW Coefficient of Variation 18.2 % (11.5-14.5); RDW Standard Deviation 59.7 fL (36.4-46.3); Red Blood Count 3.08 M/uL (4.70-6.10); White Blood Count 5.69 K/ul (4.8-10.8)
[2024-03-01 06:09] LABS: BUN Creatinine Ratio 16.8 (10-20); Calcium 7.8 mg/dl (8.6-10.3); Creatinine Clr Calc Pharmacy 57.9 ml/min; Est GFR (African American) 84.6 ml/min; Magnesium 1.8 mg/dl (1.7-2.4); Phosphorus 2.8 mg/dl (2.5-4.9); Potassium 3.7 mmol/L (3.5-5.1)
--- NOTE | 2024-03-01 14:37 | Hospitalist Progress Note ---
Date of Service March 01, 2024 Assessment & Plan (1) Hematuria: (2) Complication of Rain catheter: (3) Anemia: (4) History of CVA (cerebrovascular accident): (5) HFrEF (heart failure with reduced ejection fraction): (6) Prostate cancer metastatic to bone: (7) HLD (hyperlipidemia): (8) HTN (hypertension): (9) DM2 (diabetes mellitus, type 2): (10) PAD (peripheral artery disease): (11) BPH with obstruction/lower urinary tract symptoms: Plan 63 yr male with H/O Metastatic prostate cancer on chemotherapy, type 2 diabetes, PAD, HFrEF, hypertension, CKD 3, CVA, tobacco use disorder was admitted for clotting of rain. Patient with hematuria s/p TURP on 02/17, with stable anemia. Patient discharged and rain continued to clot at home prompting presentation. Hematuria in setting of prostate cancer metastaticto bone Recent obstructive uropathy s/p TURP Adenocarcinoma prostate, bladder involvement Acute on chronic anemia Clotting of Rain catheter Ongoing cancer treatment, previously on chemo (discontinued in November), received first dose of Pluvicto treatment at [facility] [place], received for the first time 01/03/22 but subsequent treatment was postponed due to anemia Patient presented with recurrent clotting of Rain catheter after TURP on 02/17. Admitting hemoglobin of 7.8, hemoglobin dropped to 6.2 the following day. 2 unit PRBC so far, monitor hemoglobin which has remained stable more than 9 Seen by urology, c/w rain, hold plavix, c/w tamsulosin Patient with persistent hematuria, Urology discussed options per note with patient: radiation v nephrostomy tubes to divert urine from bladder. Patient wishes to trial radiation and if unsuccessful will go for nephrostomy placement. Per urology: "Hematuria seems most likely related to dysplastic tissue in the bladder and raw surfaces from recent resection. This may be further irritated by having the indwelling stents in place. " Will continue to hold aspirin/Plavix. It been reported to hold them until after radiation treatment is completed to ensure hematuria does not recur, however will defer to PCP, depending on improvement. Rad onc following- started on palliative radiation from 02/27. Palliative following. -Continue full treatment spectrum -Patient wishes to pursue all options unless there is "no hope" Anxiety: Lorazepam led to delirium, wishes to discontinue, hence discontinued. BuSpar has been started 5 mg 3 times daily, continue Acute on Chronic anemia, multifactorial POA In setting of ongoing prostate cancer chemotherapy Currently hematuria contributing to anemia --S/P 2 units PRBCs so far Platelet count stable, hemoglobin stable Continue Iron and Vitamin B12 supplements Hold plavix and now asa, resume as able given multiple comorbidities below Transfuse HH <7 Acute kidney injury over CKD stage III: CARLA suspected to be secondary to renal toxicity likely from Plucivto; Obstructive uropathy, atrophic kidney contributing as well. Appears to have resolved. avoid nephrotoxic agents. Resume home meds as able. Entresto on hold, low normal BP. will resume Entresto as indicated. HFrEF/Moderate nonobstructive CAD ECHO from Aug 2023 shows EF 48% (improved from previous), no valvular abnormalities Will resume Entresto as indicated. Continue metoprolol. DM-II: ssi. A1c 6.02 december 2023. PAD, Severe Left carotid stenosis s/p TCAR 12/2020, on aspirin/plavix- Currently on hold due to hematuria. Continue statin. Resume antiplatelet when stable to resume but will introduce 1 at a time so as not to worsen bleeding. Prior right MCA stroke 2019: Continue Statin. Resume aspirin/plavix if able Severe protein calorie malnutrition: Weight loss, poor po intake, malignancy . BMI now 20.0 (75 kilos in 08/2023, now 59 kilos). 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 Likely discharge on Sunday after removing Rain's if hematuria resolved. Time spent- approximately 35 minutes Admission and Anticipated Discharge Date Admission Date: February 23, 2024 Subjective Patient was seen and examined at bedside. He feels little better today. His mood is better today. urine mild brown on the tubing. No fever, chills, chest pain, shortness of breath, nausea or vomiting. He is hoping to go home on Sunday. Review of Systems Review of Systems: All systems reviewed & are unremarkable except as noted in Subjective Physical Exam Physical Exam: General: Lying comfortably in bed, not in distress, on room air HEENT: EOMI, VERO, MMM Chest: Clear breath sounds bilaterally, no wheezes or crackles CVS: Regular rate and rhythm, normal heart sounds, no murmur Abdomen: Soft, non tender, not distended, normal bowel sounds Neuro: Awake, alert, oriented, conversing well, non focal Extremities: No edema Rain with blood-tinged urine Psych: Calm, cooperative Results & Data Results & Data Vital Signs (Past 12 Hours) Vital Signs Temp Pulse Pulse Resp BP Pulse Ox O2 Del Method 03/01/24 11:43 36.9 C 72 16 119/80 98 Room Air 03/01/24 07:48 36.8 C 79 19 128/59 L 96 Room Air 03/01/24 06:57 73 Laboratory Results Short CBC 03/01/24 Range/Units 05:20 WBC 5.69 (4.8-10.8) K/ul Hgb 8.8 L (14.0-18.0) g/dl Hct 27.3 L (42.0-52.0) % Plt Count 60 L (130-400) K/uL BMP 03/01/24 05:20 Sodium 136 Potassium 3.7 Chloride 104 Carbon Dioxide 24 BUN 18 Creatinine 1.07 Glucose 131 H Calcium 7.8 L (1) Hematuria Hematuria type: unspecified type Qualified Code(s): R31.9 - Hematuria, unspecified (2) Complication of Rain catheter Encounter type: initial encounter Qualified Code(s): T83.9XXA - Unspecified complication of genitourinary prosthetic device, implant and graft, initial encounter (3) Anemia Anemia type: unspecified type Qualified Code(s): D64.9 - Anemia, unspecified
--- NOTE | 2024-03-02 14:04 | Hospitalist Progress Note ---
Date of Service March 02, 2024 Assessment & Plan (1) Hematuria: (2) Complication of Rain catheter: (3) Anemia: (4) History of CVA (cerebrovascular accident): (5) HFrEF (heart failure with reduced ejection fraction): (6) Prostate cancer metastatic to bone: (7) HLD (hyperlipidemia): (8) HTN (hypertension): (9) DM2 (diabetes mellitus, type 2): (10) PAD (peripheral artery disease): (11) BPH with obstruction/lower urinary tract symptoms: Plan 63 yr male with H/O Metastatic prostate cancer on chemotherapy, type 2 diabetes, PAD, HFrEF, hypertension, CKD 3, CVA, tobacco use disorder was admitted for clotting of rain. Patient with hematuria s/p TURP on 02/17, with stable anemia. Patient discharged and rain continued to clot at home prompting presentation. Hematuria in setting of prostate cancer metastaticto bone Recent obstructive uropathy s/p TURP Adenocarcinoma prostate, bladder involvement Acute on chronic anemia Clotting of Rain catheter Ongoing cancer treatment, previously on chemo (discontinued in November), received first dose of Pluvicto treatment at [facility] [place], received for the first time 01/03/22 but subsequent treatment was postponed due to anemia Patient presented with recurrent clotting of Rain catheter after TURP on 02/17. Admitting hemoglobin of 7.8, hemoglobin dropped to 6.2 the following day. 2 unit PRBC so far, monitor hemoglobin which has remained stable more than 9 Seen by urology, c/w rain, hold plavix, c/w tamsulosin Patient with persistent hematuria, Urology discussed options per note with patient: radiation v nephrostomy tubes to divert urine from bladder. Patient wishes to trial radiation and if unsuccessful will go for nephrostomy placement. Per urology: "Hematuria seems most likely related to dysplastic tissue in the bladder and raw surfaces from recent resection. This may be further irritated by having the indwelling stents in place. " Will continue to hold aspirin/Plavix. It been reported to hold them until after radiation treatment is completed to ensure hematuria does not recur, however will defer to PCP, depending on improvement. Rad onc following- started on palliative radiation from 02/27. Palliative following. -Continue full treatment spectrum -Patient wishes to pursue all options unless there is "no hope" Anxiety: Lorazepam led to delirium, wishes to discontinue, hence discontinued. BuSpar has been started 5 mg 3 times daily, continue Acute on Chronic anemia, multifactorial POA In setting of ongoing prostate cancer chemotherapy Currently hematuria contributing to anemia --S/P 2 units PRBCs so far Platelet count stable, hemoglobin stable Continue Iron and Vitamin B12 supplements Hold plavix and now asa, resume as able given multiple comorbidities below Transfuse HH <7 Acute kidney injury over CKD stage III: CARLA suspected to be secondary to renal toxicity likely from Plucivto; Obstructive uropathy, atrophic kidney contributing as well. Appears to have resolved. avoid nephrotoxic agents. Resume home meds as able. Entresto on hold, low normal BP. will resume Entresto as indicated. HFrEF/Moderate nonobstructive CAD ECHO from Aug 2023 shows EF 48% (improved from previous), no valvular abnormalities Will resume Entresto as indicated. Continue metoprolol. DM-II: ssi. A1c 6.02 december 2023. PAD, Severe Left carotid stenosis s/p TCAR 12/2020, on aspirin/plavix- Currently on hold due to hematuria. Continue statin. Resume antiplatelet when stable to resume but will introduce 1 at a time so as not to worsen bleeding. Prior right MCA stroke 2019: Continue Statin. Resume aspirin/plavix if able Severe protein calorie malnutrition: Weight loss, poor po intake, malignancy . BMI now 20.0 (75 kilos in 08/2023, now 59 kilos). 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 Likely discharge tomorrow after radiation treatment, and after removal of Rain catheter. Time spent- approximately 35 minutes Admission and Anticipated Discharge Date Admission Date: February 23, 2024 Subjective Patient was seen and examined at bedside. He feels fine. Denies any new ongoing issues. No more hematuria. States he will have Radiation treatment tomorrow, he will likely get the Rain out and then go home after that.. Review of Systems Review of Systems: All systems reviewed & are unremarkable except as noted in Subjective Physical Exam 2 Physical Exam: General: Lying comfortably in bed, not in distress, on room air HEENT: EOMI, VERO, MMM Chest: Clear breath sounds bilaterally, no wheezes or crackles CVS: Regular rate and rhythm, normal heart sounds, no murmur Abdomen: Soft, non tender, not distended, normal bowel sounds Neuro: Awake, alert, oriented, conversing well, non focal Extremities: No edema Rain with blood-tinged urine Psych: Calm, cooperative Results & Data Results & Data Vital Signs (Past 12 Hours) Vital Signs Temp Pulse Pulse Resp BP BP Pulse Ox 03/02/24 11:45 36.7 C 75 16 115/70 98 03/02/24 08:02 36.7 C 97 H 18 120/72 97 03/02/24 07:00 73 03/02/24 02:47 36.7 C 72 16 127/74 99 O2 Del Method 03/02/24 11:45 Room Air 03/02/24 08:02 Room Air 03/02/24 07:00 03/02/24 02:47 Room Air (1) Hematuria Hematuria type: unspecified type Qualified Code(s): R31.9 - Hematuria, unspecified (2) Complication of Rain catheter Encounter type: initial encounter Qualified Code(s): T83.9XXA - Unspecified complication of genitourinary prosthetic device, implant and graft, initial encounter (3) Anemia Anemia type: unspecified type Qualified Code(s): D64.9 - Anemia, unspecified
[2024-03-03 06:14] LABS: Hematocrit (blood only) 27.3 % (42.0-52.0); Hemoglobin 8.7 g/dl (14.0-18.0); Mean Corpuscular Hgb Conc 31.9 g/dL (32.0-36.0); Mean Corpuscular Volume 87.8 fL (80.0-100.0); Mean Platelet Volume 10.1 fL (9.4-12.4); Nucleated RBC # (auto) 0.02 K/uL (0.00-0.12); Nucleated RBC % (auto) 0.4 %; Platelet Count 58 K/uL (130-400); RDW Coefficient of Variation 17.5 % (11.5-14.5); RDW Standard Deviation 56.6 fL (36.4-46.3); Red Blood Count 3.11 M/uL (4.70-6.10); White Blood Count 5.42 K/ul (4.8-10.8)
[2024-03-03 06:34] LABS: BUN Creatinine Ratio 19.2 (10-20); Calcium 7.6 mg/dl (8.6-10.3); Creatinine Clr Calc Pharmacy 58.5 ml/min; Est GFR (African American) 87.5 ml/min; Est GFR (Non-African American) 75.5 ml/min; Potassium 3.8 mmol/L (3.5-5.1)
--- NOTE | 2024-03-03 14:50 | Urology Progress Note ---
Date of Service March 03, 2024 Assessment & Plan (1) Hematuria: (2) Prostate cancer metastatic to bone: Plan: Patient afebrile and hemodynamically stable Labs reviewedcreatinine 1.04, WBC 5.42, hemoglobin 8.7 Patient started palliative radiation treatment on 02/27 Velasquez is patent and draining with hematuria Reviewed and discussed his concerns about the voiding trial Tentative plan was for voiding trial prior to discharge which may be today or tomorrow Reasonable to do a voiding trial prior to discharge as Velasquez catheter may be causing irritation in addition to ureteral stents However, if patient prefers to be discharged with Velasquez catheter, then we can ar range outpatient voiding trial After long discussion with patient, it sounds like he prefers to have his catheter removed after his radiation treatment tomorrow morning and then be discharged If he is unable to void after catheter removal, then recommend replace catheter Continue supportive care and medical management per hospital medicine service will arrange outpatient follow-up, please contact our service with any additional questions or concerns Admission and Anticipated Discharge Date Admission Date: February 23, 2024 Subjective Patient was ordered by hospitalist for Velasquez catheter removal and voiding trial prior to discharge Asked by nursing to revisit patient to discuss Velasquez catheter Patient seen and examined at bedside Denies pain at present Velasquez draining with hematuria, no clots visualized Denies fever or chills Review of Systems Constitutional: as per Subjective / HPI Genitourinary: + as per Subjective / HPI Physical Exam Constitutional: + thin; no acute distress chronically ill appearing Respiratory: no respiratory distress and no labored breathing Psychiatric: Orientation: alert and oriented x 3 Genitourinary: Velasquez patent and draining with hematuria Results & Data Vital Signs (Past 12 Hours) Vital Signs Temp Pulse Pulse Resp BP Pulse Ox O2 Del Method 03/03/24 12:31 36.7 C 72 17 109/47 L 97 Room Air 03/03/24 11:27 Room Air 03/03/24 10:31 Room Air 03/03/24 07:45 36.7 C 73 18 121/75 99 Room Air 03/03/24 06:25 85 PG Care Time/CCT Total # of Minutes Spent Total Time Spent with Patient: Total time spent is greater than 50% in coordination of care (as documented) at patient's floor/unit and/or counseling patient: Coding Level of Care Code 90088 SUB INP/OBS CARE 10/25MIN Diagnoses Hematuria R31.9 Hematuria type: unspecified type Prostate cancer metastatic to bone C61; C79.51 (1) Hematuria Hematuria type: unspecified type Qualified Code(s): R31.9 - Hematuria, unspecified
--- NOTE | 2024-03-03 16:29 | Hospitalist Progress Note ---
Date of Service March 03, 2024 Assessment & Plan (1) Hematuria: (2) Complication of Rain catheter: (3) Anemia: (4) History of CVA (cerebrovascular accident): (5) HFrEF (heart failure with reduced ejection fraction): (6) Prostate cancer metastatic to bone: (7) HLD (hyperlipidemia): (8) HTN (hypertension): (9) DM2 (diabetes mellitus, type 2): (10) PAD (peripheral artery disease): (11) BPH with obstruction/lower urinary tract symptoms: Plan 63 yr male with H/O Metastatic prostate cancer on chemotherapy, type 2 diabetes, PAD, HFrEF, hypertension, CKD 3, CVA, tobacco use disorder was admitted for clotting of rain. Patient with hematuria s/p TURP on 02/17, with stable anemia. Patient discharged and rain continued to clot at home prompting presentation. Hematuria in setting of prostate cancer metastaticto bone Recent obstructive uropathy s/p TURP Adenocarcinoma prostate, bladder involvement Acute on chronic anemia Clotting of Rain catheter Ongoing cancer treatment, previously on chemo (discontinued in November), [place] dose [place]uv[place] [facility] [place] time [place]/03/[place] but subsequent treatment was postponed due to anemia Patient presented with recurrent clotting of Rain catheter after TURP on 02/17. Admitting hemoglobin of 7.8, hemoglobin dropped to 6.2 the following day. 2 unit PRBC so far, monitor hemoglobin which has remained stable more than 9 Seen by urology, c/w rain, hold plavix, c/w tamsulosin Patient with persistent hematuria, Urology discussed options per note with patient: radiation v nephrostomy tubes to divert urine from bladder. Patient wishes to trial radiation and if unsuccessful will go for nephrostomy placement. Per urology: "Hematuria seems most likely related to dysplastic tissue in the bladder and raw surfaces from recent resection. This may be further irritated by having the indwelling stents in place. " Will continue to hold aspirin/Plavix. It been reported to hold them until after radiation treatment is completed to ensure hematuria does not recur, however will defer to PCP, depending on improvement. Rad onc following- started on palliative radiation from 02/27. Palliative following. -Continue full treatment spectrum -Patient wishes to pursue all options unless there is "no hope" Anxiety: Lorazepam led to delirium, wishes to discontinue, hence discontinued. BuSpar has been started 5 mg 3 times daily, continue Acute on Chronic anemia, multifactorial POA In setting of ongoing prostate cancer chemotherapy Currently hematuria contributing to anemia --S/P 2 units PRBCs so far Platelet count stable, hemoglobin stable Continue Iron and Vitamin B12 supplements Hold plavix and now asa, resume as able given multiple comorbidities below Transfuse HH <7 Acute kidney injury over CKD stage III: CARLA suspected to be secondary to renal toxicity likely from Plucivto; Obstructive uropathy, atrophic kidney contributing as well. Appears to have resolved. avoid nephrotoxic agents. Resume home meds as able. Entresto on hold, low normal BP. will resume Entresto as indicated. HFrEF/Moderate nonobstructive CAD ECHO from Aug 2023 shows EF 48% (improved from previous), no valvular abnormalities Will resume Entresto as indicated. Continue metoprolol. DM-II: ssi. A1c 6.02 december 2023. PAD, Severe Left carotid stenosis s/p TCAR 12/2020, on aspirin/plavix- Currently on hold due to hematuria. Continue statin. Resume antiplatelet when stable to resume but will introduce 1 at a time so as not to worsen bleeding. Prior right MCA stroke 2019: Continue Statin. Resume aspirin/plavix if able Severe protein calorie malnutrition: Weight loss, poor po intake, malignancy . BMI now 20.0 (75 kilos in 08/2023, now 59 kilos). 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 Time spent- approximately 35 minutes Admission and Anticipated Discharge Date Admission Date: February 23, 2024 Subjective Patient was seen and examined at bedside. Revisited multiple times today to discuss the discharge plan. He was kept over the weekend to ensure no more hematuria and he remains stable. He had radiation treatment today. Discussed about going home today however he was very reluctant stating that he needs his rain out, it is going to be painful and he would not like the rain out until tomorrow morning when he gets his pain meds. Did discuss that rain removal is not painful but he was still reluctant. Uro was at bedside. Did give him the option of leaving the rain and uro follow up later this week for voiding trial, he did not want that either. later he would say that his radiation treatment is for tomorrow 8 am and it is hard for him to come early that morning as his has to work. Did discuss this with at bedside regarding the logistics of transportation. He is adamant that he would want to stay overnight, get rain out tomorrow morning when he gets his pain meds, be able to void, have radiation treatment, observed for few hours and discharge later in the afternoon. His hemoglobin has remained stable suggesting no significant hematuria. Review of Systems Review of Systems: All systems reviewed & are unremarkable except as noted in Subjective Physical Exam Physical Exam: General: Lying comfortably in bed, not in distress, on room air HEENT: EOMI, VERO, MMM Chest: Clear breath sounds bilaterally, no wheezes or crackles CVS: Regular rate and rhythm, normal heart sounds, no murmur Abdomen: Soft, non tender, not distended, normal bowel sounds Neuro: Awake, alert, oriented, conversing well, non focal Extremities: No edema Rain with brown urine Psych: irritated, upset Results & Data Results & Data Vital Signs (Past 12 Hours) Vital Signs Temp Pulse Pulse Resp BP Pulse Ox O2 Del Method 03/03/24 16:00 36.6 C 117 H 18 95/63 L 96 Room Air 03/03/24 12:31 36.7 C 72 17 109/47 L 97 Room Air 03/03/24 11:27 Room Air 03/03/24 10:31 Room Air 03/03/24 07:45 36.7 C 73 18 121/75 99 Room Air 03/03/24 06:25 85 Laboratory Results Short CBC 03/03/24 Range/Units 05:38 WBC 5.42 (4.8-10.8) K/ul Hgb 8.7 L (14.0-18.0) g/dl Hct 27.3 L (42.0-52.0) % Plt Count 58 L (130-400) K/uL BMP 03/03/24 05:38 Sodium 137 Potassium 3.8 Chloride 105 Carbon Dioxide 24 BUN 20 Creatinine 1.04 Glucose 131 H Calcium 7.6 L (1) Hematuria Hematuria type: unspecified type Qualified Code(s): R31.9 - Hematuria, unspecified (2) Complication of Rain catheter Encounter type: initial encounter Qualified Code(s): T83.9XXA - Unspecified complication of genitourinary prosthetic device, implant and graft, initial encounter (3) Anemia Anemia type: unspecified type Qualified Code(s): D64.9 - Anemia, unspecified
[2024-03-03] MEDS: ALBUMIN 25% 12.5 GM/50 ML VIAL IV ONE (21:33)
--- NOTE | 2024-03-04 16:38 | Discharge Summary ---
Date of Service March 04, 2024 Admission HPI Per Admitting Provider This is a 63-year-old male with PMH of metastatic prostate cancer on chemotherapy, type 2 diabetes, PAD, HFrEF, hypertension, CKD 3, history of CVA, tobacco use disorder and other medical problems listed below who was directed from heme-onc clinic due to worsening anemia and renal function since outpatient labs yesterday. Was admitted last week for anemia requiring 2u PRBCs and was found to have bilateral hydro during admission, requiring TURP on 02/[address] Chaudhari with post-operative hematuria. At time of discharge yesterday, patient had plavix held with urology follow up on Sunday. Llanes was placed and patient returns this evening as clots are blocking its function. Endorses ongoing pelvic pain as well as discomfort from llanes. has been taking all medications including new calcium, magnesium and vitamin D supplements. Does endorse a fall earlier today when transferring from car to house and hit his head. Denies LOS.+ Positional lightheadedness. No recent F/C, CP, SOB, N/V, abdominal pain aside from chronic cancer pain. No recent melena or hematochezia. Admission Exam Per Admitting Provider GENERAL APPEARANCE: AxOx4, frail but pleasant gentleman, no acute distress. HEENT: NC, AT. MMM. EOMI, clear conjunctiva, oropharynx clear. NECK: Supple without lymphadenopathy. No stiffness or restricted ROM. HEART: tachycardic LUNGS: CTAB, moving air well. No crackles or wheezes are heard. ABDOMEN: Soft, nontender, nondistended with good bowel sounds heard. BACK: No CVAT, no obvious deformity. EXTREMITIES: Without cyanosis, clubbing or edema NEUROLOGICAL: Grossly nonfocal. Alert and oriented, moving all 4 extremities. CN not formally tested but appear grossly intact. Skin: scattered purpura on BUE Principal Diagnosis Hematuria in setting of metastatic prostate cancer Discharge Exam General: Lying comfortably in bed, not in distress, on room air HEENT: EOMI, VERO, MMM Chest: Clear breath sounds bilaterally, no wheezes or crackles CVS: Regular rate and rhythm, normal heart sounds, no murmur Abdomen: Soft, non tender, not distended, normal bowel sounds Neuro: Awake, alert, oriented, conversing well, non focal Extremities: No edema Llanes has been removed Psych: calm, cooperative Discharge Data Allergies Allergy/AdvReac Type Severity Reaction Status Date / Time amoxicillin [From Augmentin] AdvReac Intermediate DIZZINESS/C Verified 02/23/24 18:02 ONFUSION clavulanic acid AdvReac Intermediate DIZZINESS/C Verified 02/23/24 18:02 [From Augmentin] ONFUSION codeine AdvReac Intermediate Gastrointestinal Verified 02/23/24 18:02 Upset Consultations 02/23/24 18:31 ED Decision to Admit Stat 02/23/24 19:36 Consult Urology Routine 02/25/24 13:29 Consult Radiation Oncology Routine 02/25/24 13:30 Consult Palliative Care Routine Ordered Studies 02/23/24 16:39 US Renal Bladder [US renal/blad retro comp] Stat 02/23/24 18:40 CT head/brain wo con Urgent 02/27/24 09:00 CT guide rad therapy pelvis Routine Laboratory Results WBC 5.42 K/ul (4.8-10.8) 03/03/24 05:38 RBC 3.11 M/uL (4.70-6.10) L 03/03/24 05:38 Hgb 8.7 g/dl (14.0-18.0) L 03/03/24 05:38 Hct 27.3 % (42.0-52.0) L 03/03/24 05:38 MCV 87.8 fL (80.0-100.0) 03/03/24 05:38 MCH 28.0 pg (25.0-34.0) 03/03/24 05:38 MCHC 31.9 g/dL (32.0-36.0) L 03/03/24 05:38 RDW Std Deviation 56.6 fL (36.4-46.3) H 03/03/24 05:38 RDW Coeff of Clara 17.5 % (11.5-14.5) H 03/03/24 05:38 Plt Count 58 K/uL (130-400) L 03/03/24 05:38 MPV 10.1 fL (9.4-12.4) 03/03/24 05:38 Absolute Nucleated RBC 0.02 K/uL (0.00-0.12) 03/03/24 05:38 Nucleated RBC % (auto) 0.4 % 03/03/24 05:38 Neutrophils % (Manual) 84 % 02/23/24 16:57 Lymphocytes % (Manual) 5 % 02/23/24 16:57 Monocytes % (Manual) 6 % 02/23/24 16:57 Eosinophils % (Manual) 2 % 02/23/24 16:57 Metamyelocytes % (Man) 1 % 02/23/24 16:57 Myelocytes % (Man) 2 % 02/23/24 16:57 Neutrophils # (Manual) 4.36 K/uL (1.40-6.50) 02/23/24 16:57 Total Absolute Neuts 4.36 K/uL (1.4-6.5) 02/23/24 16:57 Lymphocytes # (Manual) 0.26 K/uL (1.2-3.4) L 02/23/24 16:57 Total Abs Lymphocytes 0.26 K/uL (1.2-3.4) L 02/23/24 16:57 Monocytes # (Manual) 0.31 K/uL (0.11-0.59) 02/23/24 16:57 Eosinophils # (Manual) 0.10 K/uL (0-0.50) 02/23/24 16:57 Metamyelocytes # (Man) 0.05 K/uL (0-0) H 02/23/24 16:57 Myelocytes # (Manual) 0.10 K/uL (0-0) H 02/23/24 16:57 Tear Drop Cells 1+ 02/23/24 16:57 PT 13.0 Seconds (9.0-12.0) H 02/23/24 16:57 INR 1.2 (0.9-1.1) H 02/23/24 16:57 Sodium 137 mmol/L (136-145) 03/03/24 05:38 Potassium 3.8 mmol/L (3.5-5.1) 03/03/24 05:38 Chloride 105 mmol/L (98-107) 03/03/24 05:38 Carbon Dioxide 24 mmol/L (21-32) 03/03/24 05:38 Anion Gap 8 (3-11) 03/03/24 05:38 BUN 20 mg/dl (6-23) 03/03/24 05:38 Creatinine 1.04 mg/dl (0.6-1.4) 03/03/24 05:38 Est Cr Clr Drug Dosing 58.5 ml/min 03/03/24 05:38 Est GFR ( Amer) 87.5 ml/min 03/03/24 05:38 Est GFR (Non-Af Amer) 75.5 ml/min 03/03/24 05:38 BUN/Creatinine Ratio 19.2 (10-20) 03/03/24 05:38 Glucose 131 mg/dl (70-99(Fasting)) H 03/03/24 05:38 POC Glucose 135 mg/dl (70-99) H 03/04/24 12:25 Calcium 7.6 mg/dl (8.6-10.3) L 03/03/24 05:38 Phosphorus 2.8 mg/dl (2.5-4.9) 03/01/24 05:20 Magnesium 1.8 mg/dl (1.7-2.4) 03/01/24 05:20 Total Bilirubin 0.6 mg/dl (0.2-1.0) 02/27/24 07:11 AST 38 U/L (13-39) 02/27/24 07:11 ALT 16 U/L (7-52) 02/27/24 07:11 Alkaline Phosphatase 335 U/L (34-104) H 02/27/24 07:11 Total Protein 5.8 gm/dl (6.0-8.3) L 02/27/24 07:11 Albumin 2.8 gm/dl (3.4-5.0) L 02/27/24 07:11 Globulin 3.0 gm/dl (2.5-4.0) 02/27/24 07:11 Albumin/Globulin Ratio 0.9 (0.9-2) 02/27/24 07:11 Lipase 6 U/L (11-82) L 02/23/24 16:57 Urine Color See Comment 02/23/24 18:00 Urine Appearance Cloudy (Clear) A 02/23/24 18:00 Urine pH Not Reportable 02/23/24 18:00 Ur Specific [place] 1.017 (1.000-1.030) 02/23/24 18:00 Urine Protein Not Reportable 02/23/24 18:00 Urine Glucose (UA) Not Reportable 02/23/24 18:00 Urine Ketones Not Reportable 02/23/24 18:00 Urine Blood Not Reportable 02/23/24 18:00 Urine Nitrite Not Reportable 02/23/24 18:00 Urine Bilirubin Not Reportable 02/23/24 18:00 Urine Urobilinogen Not Reportable 02/23/24 18:00 Ur Leukocyte Esterase Not Reportable 02/23/24 18:00 Urine RBC >20 /hpf (0-2) H 02/23/24 18:00 Urine WBC 21-50 /hpf (0-5) H 02/23/24 18:00 Ur Epithelial Cells 0-2 /hpf (0-2) 02/23/24 18:00 Urine Bacteria None Seen (None Seen) 02/23/24 18:00 Blood Type A Positive 02/24/24 07:32 Antibody Screen NEGATIVE 02/24/24 07:32 Crossmatch See Detail 02/24/24 07:32 Impressions Renal Ultrasound 02/23/24 16:39 RENAL ULTRASOUND HISTORY: Hematuria. COMPARISON: Abdomen and pelvis CT 02/17/2024. Renal ultrasound 02/17/2024. FINDINGS: Right kidney: 11.4 cm. Moderate hydronephrosis is similar to the prior study. A ureteral stent is partially visualized. Normal corticomedullary differentiation and cortical thickness. Left kidney: 7.8 cm. Mild to moderate hydronephrosis, unchanged. A ureteral stent is partially visualized. Diffuse cortical thinning. Bladder: Bladder is distended. There is complex material layering within the bladder without demonstrable color flow which measures 8 x 7 x 5 cm. This suggests blood products given the patient's history of hematuria. This could obscure a bladder mass. There is a Llanes catheter and gas within the bladder lumen. IMPRESSION: 1. Bladder is distended. There is complex material layering within the bladder without demonstrable color flow which measures 8 x 7 x 5 cm. This suggests blood products given the patient's history of hematuria. This could obscure a bladder mass. 2. No change in the moderate right and mild to moderate left hydronephrosis. Bilateral ureteral stents are partially visualized. ACT 112: Negative or not required by law. Electronically signed by: Ángel Linder M.D. 02/23/2024 5:[address] 02/23/24 18:[address] DOSE: 625.8 mGy.cm HISTORY: fall, hit head TECHNIQUE: Multiaxial CT images of the head were performed without the use of intravenous contrast. Automated exposure control was utilized for this study. A dose lowering technique was utilized adhering to the principles of ALARA. Comparison: None. Findings: The paranasal sinuses and mastoid air cells are clear. The calvarium and skull base are intact. There is mild left posterior scalp swelling. Hypodensity and encephalomalacia within the right frontal/ parietal lobe extending to the right subinsular cortex. This favors an old right MCA territory infarct. Otherwise, there is no acute infarct, intracranial hemorrhage, or midline shift. Impression: 1. No acute infarct or intracranial hemorrhage. 2. Mild left posterior scalp swelling. 3. Hypodensity and encephalomalacia within the right frontal/parietal lobe suggestive of an old right MCA territory infarct. ACT 112: Negative or not required by law. Electronically signed by: Ángel Linder M.D. 02/23/2024 7:26 PM Hospital Course (1) Hematuria: (2) Complication of Llanes catheter: (3) Anemia: (4) History of CVA (cerebrovascular accident): (5) HFrEF (heart failure with reduced ejection fraction): (6) Prostate cancer metastatic to bone: (7) HLD (hyperlipidemia): (8) HTN (hypertension): (9) DM2 (diabetes mellitus, type 2): (10) PAD (peripheral artery disease): (11) BPH with obstruction/lower urinary tract symptoms: Plan 63 yr male with H/O Metastatic prostate cancer on chemotherapy, type 2 diabetes, PAD, HFrEF, hypertension, CKD 3, CVA, tobacco use disorder was admitted for clotting of llanes. Patient with hematuria s/p TURP on 02/17, with stable anemia. Patient discharged and llanes continued to clot at home prompting presentation. Hematuria in setting of prostate cancer metastaticto bone Recent obstructive uropathy s/p TURP Adenocarcinoma prostate, bladder involvement Acute on chronic anemia Clotting of Llanes catheter Ongoing cancer treatment, previously on chemo (discontinued in November), received first dose of Pluvicto treatment at [facility] [place], received for the first time 01/03/22 but subsequent treatment was postponed due to anemia Patient presented with recurrent clotting of Llanes catheter after TURP on 02/17. Admitting hemoglobin of 7.8, hemoglobin dropped to 6.2 the following day. 2 unit PRBC so far, monitor hemoglobin which has remained stable around 9. Hematuria has resolved and llanes has been removed today Seen by urology- recommendations noted, also discussed at bedside. They will follow him as OP Patient had persistent hematuria, Urology discussed options per note with patient: radiation v nephrostomy tubes to divert urine from bladder. Patient wishes to trial radiation and if unsuccessful will go for nephrostomy placement. Per urology: "Hematuria seems most likely related to dysplastic tissue in the bladder and raw surfaces from recent resection. This may be further irritated by having the indwelling stents in place. " Will continue to hold aspirin/Plavix. I believe it would be reasonable to hold them until after radiation treatment is completed to ensure hematuria does not recur, however will defer to PCP, depending on improvement. Rad onc following- started on palliative radiation from 02/27. Palliative following. -Continue full treatment spectrum -Patient wishes to pursue all options unless there is "no hope" Anxiety: Lorazepam led to delirium, wishes to discontinue, hence discontinued. BuSpar has been started 5 mg 3 times daily, continue Acute on Chronic anemia, multifactorial POA In setting of ongoing prostate cancer chemotherapy Currently hematuria contributing to anemia --S/P 2 units PRBCs so far Platelet count stable, hemoglobin stable Continue Iron and Vitamin B12 supplements Hold plavix and aspirin. F/u with PCP as above Transfuse HH <7 Acute kidney injury over CKD stage III: CARLA suspected to be secondary to renal toxicity likely from Plucivto; Obstructive uropathy, atrophic kidney contributing as well. Appears to have resolved. avoid nephrotoxic agents. Resume home meds HFrEF/Moderate nonobstructive CAD ECHO from Aug 2023 shows EF 48% (improved from previous), no valvular abnormalities. Continue home meds DM-II: ssi. A1c 6.02 December 2023. PAD, Severe Left carotid stenosis s/p TCAR 12/2020, on aspirin/plavix- Currently on hold due to hematuria. Continue statin. Plan as above. Prior right MCA stroke 2019: Continue Statin. Plan for antiplatelet as above Severe protein calorie malnutrition: Weight loss, poor po intake, malignancy . BMI now 20.0 (75 kilos in 08/2023, now 59 kilos). Seen by dietitian Tobacco use disorder: Refuses nicotine patch. Clinical Transformation Specialist to quit smoking Total Time Total Time Spent Total Time Spent (In Minutes): 35 Discharge Plan Discharge Items Patient Disposition: Home - Self-Care Reason For Visit: LLANES CATHETER MALFUNCTION Discharge Diagnosis: Hematuria in setting of metastatic prostate cancer Activity: Resume your previous activity Non-emergency contact: Primary Care Provider Call non-emergency contact if: you have any medication questions, your symptoms worsen and your pain is concerning for you Follow-up/Referrals: Christianne Oden CRNP [Nurse Practitioner] - (The Urology office will contact you for a follow up appointment. If you do not receive a call, please contact the office. ) Dru Fritz MD [Primary Care Provider] - (Date & Time 03/07/2024 11:00 AM Provider Dru Fritz MD Department Family Practice [facility] ) Pastora Aguilar CRNP [Outside Practitioners] - (Date & Time 03/06/2024 11:30 AM Provider Pastora Aguilar CRNP Department Hematology/Oncology [facility] ) Diet: Low Sodium (2gm) Fluids: 1500ml (6 cups) Addtl Attending Provider Instructions: Continue radiation treatment Follow up with urology Hold on aspirin/plavix for now- follow up with family doctor to discuss when you can resume Pending Studies at Discharge: No Stand-Alone Forms: [facility], Smoking Cessation Medications and DC Order Prescriptions: New buspirone 5 mg Tablet 5 mg PO TID Qty: 30 0RF Continued acetaminophen [Tylenol Extra Strength] 500 mg tablet 500 - 1,000 mg PO Q6H PRN (Reason: Pain) Xgeva 120 mg/1.7 mL (70 mg/mL) solution 120 mg subcut MONTHLY Rx Instructions: Calcium has been too low for injections. - last received in Oct- Nov Entresto 24-26 mg tablet 1 tab PO BID Hold Instructions: Hold until told to resume by Nephrology Rx Instructions: ON HOLD Tradjenta 5 mg tablet 5 mg PO QAM tramadol 50 mg tablet 150 mg PO BID atorvastatin 80 mg Tablet 80 mg PO QPM Jardiance 25 mg tablet 25 mg PO QAM Hold Instructions: Hold until told to resume by Nephrology Rx Instructions: ON HOLD ondansetron HCl 8 mg Tablet 8 mg PO DIRECTED PRN (Reason: Nausea) prochlorperazine maleate 10 mg tablet 10 mg PO DIRECTED PRN (Reason: Nausea) morphine 15 mg tablet 15 mg PO BID PRN (Reason: Pain) Rx Instructions: Pt will sometimes cut tablet into 4 equal pieces and take 1/4th of tablet. K-Phos Original 500 mg tablet,soluble 500 mg PO BID morphine 15 mg Tablet Extended Release 15 mg PO DAILY PRN (Reason: Pain) ferrous sulfate 325 mg (65 mg iron) Tablet,Delayed Release (Dr/Ec) 325 mg PO QAM Qty: 30 0RF tamsulosin 0.4 mg Capsule 0.4 mg PO QAM Qty: 30 0RF metoprolol tartrate 25 mg Tablet 12.5 mg PO BID Qty: 30 0RF magnesium chloride [Mag 64] 64 mg Tablet,Delayed Release (Dr/Ec) 64 mg PO BID Qty: 60 0RF cyanocobalamin (vitamin B-12) 500 mcg Tablet 1,000 mcg PO QAM Qty: 60 0RF lidocaine HCl 2 % Jelly In Applicator 1 ml EXT BID Qty: 125 0RF calcium carbonate [Tums] 200 mg calcium (500 mg) Tablet,Chewable 1,500 mg PO TID Qty: 360 0RF ergocalciferol (vitamin D2) 1,250 mcg (50,000 unit) Capsule 1,250 mcg PO DAILY Qty: 30 0RF calcitriol 0.25 mcg Capsule 1 mcg PO QAM Qty: 120 0RF Held clopidogrel 75 mg tablet 75 mg PO QAM Hold Instructions: Resume upon follow up with Urology Rx Instructions: ON HOLD aspirin 81 mg Tablet,Delayed Release (Dr/Ec) 81 mg PO QAM Qty: 30 0RF Hold Instructions: Resume on 02/13/24. Hold until you discuss with your family doctor Rx Instructions: ALWAYS WITH FOOD Discharge Orders: Discharge Order (Routine); Ordered 03/04/24 Ordered By: Ricardo Izaguirre Admission Data Admit Date/Time: 02/23/24 18:30 Attending Provider: Ricardo Izaguirre Admit Provider: Sia Vergara Primary Care Provider: Dru Fritz Other Providers: Miguel Hale; Sia Vergara; Amos Lund [facility]; Nathaniel Queen; Emelia Ledezma
== END 2024-03-04 17:51 | disposition home or self-care (01) | DRG 686 ==
LOC: ED 16:18 → SUATTDRO 18:30 → 2N 18:30

== ENCOUNTER 2024-03-24 15:55 | Inpatient (IN) ==
--- NOTE | 2024-03-24 16:09 | ED Triage Note ---
Date of Service March 24, 2024 Provider in Triage Author: Omar Noriega. History of Present Illness This patient was briefly evaluated while in triage. An abbreviated physical exam was performed. This patient is a 63-year-old Male history metatstatic prostate cancer who presents to the ED for evaluation of weakness, fatigue, decreased appetite and decreased oral intake. No fevers. Missed 4 cancer treatments recently. Blood pressure was on the low side at home. Physical Exam CONSTITUTIONAL: somewhat ill appearing SKIN: pink, warm, dry CARDIAC: tachycardic rate RESPIRATORY: in no respiratory distress Initial orders for labs and / or imaging were placed and patient directly into a room. Hypotension and tachycardia was noted. Please see further documentation for the full ED course.
[2024-03-24] MEDS: SODIUM CHLORIDE 0.9% 500 ML IV ONE ×2 (16:29→18:44)
[2024-03-24] MEDS: SODIUM CHLORIDE 0.9% 1,000 ML IV ONE (16:30)
--- NOTE | 2024-03-24 16:34 | Emergency Department Note ---
Impression & Plan Generalized weakness, Non-ST elevation AR (NSTEMI), Sepsis, Acute UTI (urinary tract infection), Thrombocytopenia, Elevated lactic acid level ED Provider Note HISTORY OF PRESENT ILLNESS: Patient is a 63-year-old male presenting with generalized weakness and lethargy. Family member provides most of history. Reports the patient's last radiation therapy was a week ago. He is supposed to get radiation every weekday, but missed most of last week secondary to feeling generally unwell. No reported fevers at home. Reports the patient had a fall last week but refused to come and be evaluated. He is on aspirin and Plavix. Family member reports that patient has lost significant weight in the last week. He is also been very confused today. No vomiting, but the patient does report nausea. No diarrhea or dysuria. Denies any chest pain or significant shortness of breath. No recent travel. No recent sick contact exposures. ROS: as above PHYSICAL EXAM: Constitutional: Patient appears in no acute distress. Cachectic and ill- appearing. HENT: Head: Normocephalic and atraumatic. Eyes: EOMI, PERRL Mouth/Throat: Mucous membranes dry. Neck: Trachea midline. Neck supple. Cardiovascular: Tachycardic with regular rhythm. No murmurs, rubs or gallops. Intact distal pulses. Pulmonary/Chest: No respiratory distress. Breath sounds clear and equal bilaterally. No wheezes or rales. Abdominal: Abdomen soft, no tenderness, rebound or guarding. Musculoskeletal: No edema, tenderness or deformity noted. Skin: Warm and dry. No rash, erythema, pallor or cyanosis Psychiatric: Appropriate mood and affect for situation. Neurological: Alert and keenly responsive. CN II-XII grossly intact, moving all extremities equally and fully. MDM: - Vitals signs showed hypotension and tachycardia - History obtained via patient and patient's . History as above. - Chronic conditions affecting care: HTN; HLD; prostate cancer with mets to bone; DM-2; BPH; PAD; HFrEF - Differential diagnoses include, but are not limited to: UTI; pneumonia; pneumothorax; sepsis; dehydration; ACS; electrolyte abnormality - Order placed for continuous cardiac monitoring. At this time, monitor showed rate of 84 bpm with normal sinus rhythm, per my interpretation. - External medical records reviewed. Discharge summary dated 03/04/2024 was reviewed. Patient was admitted at that time for hematuria in the setting of metastatic prostate cancer. - EKG interpreted by myself showed normal sinus rhythm. Rate 92 bpm. QT 372. No acute ischemic changes. Noted to have some ST depressions in V4 through V6. - Laboratory workup interpreted by myself showed normal WBC; anemia (Hgb 7.0); thrombocytopenia (plt 79); stable electrolytes; elevated anion gap (14); elevated BUN (30); hyperglycemia (glucose 246); hypermagnesemia (Mg 2.5); elevated troponin (42.9); normal procalcitonin; elevated lactate (4.7) - Patient given 2L NS. Repeat lactate still elevated at 4.1). Given 4 mg IV zofran for nausea - Patient's sepsis fluid volume resuscitation based on ideal body weight is 2018.10 mL - Blood cultures obtained. - Patient given IV zosyn empirically - UA negative for bacteria, but noted to have >50 WBCs and +1 leukocyte esterase. Will treat as UTI as of now, with zosyn covering this. - CXR negative for pneumonia or pneumothorax, per my interpretation - Type and screen ordered. - Patient given multiple doses of dilaudid (0.5 mg x2 then 1.0 mg) for diffuse pain. - Discussion was had with patient case coordinator about patient's case and need for admission - Hospitalist, Dr. Nieves, consulted for admission - Patient admitted to [facility] service for further evaluation and management. ASSESSMENT AND PLAN: Diagnosis: Generalized weakness; NSTEMI; acute UTI; sepsis; thrombocytopenia; elevated lactic acid Plan: admit Past Med/Surg History Problem List (Updated 03/24/24 @ 20:46 by Sheri Howe MD) Elevated lactic acid level (Acute) Thrombocytopenia (Acute) Acute UTI (urinary tract infection) (Acute) Sepsis (Acute) Non-ST elevation AR (NSTEMI) (Acute) Generalized weakness (Acute) Palliative care by specialist Advanced care planning/counseling discussion Falls Pelvic pain in male Cancer related pain Anemia (Acute) Complication of Velasquez catheter (Acute) Hematuria (Acute) Hypocalcemia syndrome Bilateral hydronephrosis Abnormal blood electrolyte level Symptomatic anemia (Acute) History of CVA (cerebrovascular accident) HFrEF (heart failure with reduced ejection fraction) Acute on chronic anemia (Acute) Acute renal failure superimposed on stage 3 chronic kidney disease (Acute) Pancytopenia due to chemotherapy Adult failure to thrive (Acute) Elevated troponin (Acute) Prostate cancer metastatic to bone (Chronic) Prostate cancer Biopsy on 06/10/21 Tobacco abuse (Chronic) HLD (hyperlipidemia) (Chronic) HTN (hypertension) (Chronic) DM2 (diabetes mellitus, type 2) (Chronic) PAD (peripheral artery disease) BPH with obstruction/lower urinary tract symptoms (Acute) Medical History History of left heart catheterization (LHC) "cardiac cath 10-20% block" Stroke Surgical History History of left common carotid artery stent placement Family History Mother , in her 80s Myocardial infarction H/O cardiac surgery Diabetes Father , 58yo Myocardial infarction Lung disease From working in [employer]; Brother No problems noted. Brother No problems noted. Brother No problems noted. Brother No problems noted. Brother No problems noted. Daughter No problems noted. Son No problems noted. Son Diabetes Other Heart disease Hypertension Social History Smoking Status: Current every day smoker Tobacco Type: Cigarettes packs per day: 0.5; Cigarettes Per Day: pack per day; Second Hand Exposure: No; Do You Dip or Chew Tobacco: No; Hx Alcohol Use: Yes Alcohol type: beer Alcohol Intake Frequency: Monthly or Less Hx Substance Use: Yes Prescribed Medications: Marijuana Last Used Substance: Just Prior to Arrival Last Used Substance Other:: marijuana 01/10 Preferred Language: Greek Communication Ability: Effective Visual Impairment: No Limitations Hearing Ability: Normal [place] [employer] Required: No Beliefs That Will Affect Care: None marital status: Current Living Situation: Spouse Current Living Situation Comment: , daughter/her spouse current occupational status: retired Feels Safe at Home: Yes Diet: regular caffeine: No during the past year weight has: decreased > 10 lbs Assistive Devices: None Allergies Allergies Allergy/AdvReac Type Severity Reaction Status Date / Time amoxicillin [From Augmentin] AdvReac Intermediate DIZZINESS/C Verified 03/17/24 13:50 ONFUSION clavulanic acid AdvReac Intermediate DIZZINESS/C Verified 03/17/24 13:50 [From Augmentin] ONFUSION codeine AdvReac Intermediate Gastrointestinal Verified 03/17/24 13:50 Upset Home Meds Home Medications Medication Instructions Recorded Confirmed atorvastatin 80 mg tablet 80 mg PO QPM 04/23/19 03/24/24 empagliflozin 25 mg tablet 25 mg PO QAM 05/31/21 03/24/24 (Jardiance) acetaminophen 500 mg tablet 500 - 1,000 mg PO Q6H PRN Pain 12/06/22 03/24/24 (Tylenol Extra Strength) clopidogrel 75 mg tablet 75 mg PO QAM 12/06/22 03/24/24 denosumab 120 mg/1.7 mL (70 mg/mL) 120 mg subcut MONTHLY 12/06/22 03/24/24 subcutaneous solution (Xgeva) linagliptin 5 mg tablet (Tradjenta) 5 mg PO QAM 12/06/22 03/24/24 sacubitril 24 mg-valsartan 26 mg 1 tab PO BID 12/06/22 03/24/24 tablet (Entresto) tramadol 50 mg tablet 150 mg PO BID pain 08/01/23 03/24/24 morphine 15 mg immediate release 15 mg PO BID PRN Pain 01/11/24 03/24/24 tablet ondansetron HCl 8 mg tablet 8 mg PO DIRECTED PRN Nausea 01/11/24 03/24/24 potassium phosphate, monobasic 500 500 mg PO BID 01/11/24 03/24/24 mg soluble tablet (K-Phos Original) prochlorperazine maleate 10 mg 10 mg PO DIRECTED PRN Nausea 01/11/24 03/24/24 tablet (Compazine) morphine 15 mg tablet,extended 15 mg PO DAILY PRN Pain 02/15/24 03/24/24 release buspirone 5 mg tablet 5 mg PO TID 03/11/24 03/24/24 lidocaine HCl 2 % mucosal jelly in 1 ml EXT BID PRN Other 03/24/24 03/24/24 applicator Previous Rx's Medication Instructions Recorded aspirin 81 mg tablet,delayed 81 mg PO QAM #30 tabs 06/03/21 release calcitriol 0.25 mcg capsule 1 mcg (4 x 0.25 mcg) PO QAM #120 02/22/24 caps calcium carbonate (Tums) 1,500 mg (7.5 x 200 mg calcium 02/22/24 (500 mg)) PO TID #360 tabs cyanocobalamin (vitamin B-12) 500 1,000 mcg (2 x 500 mcg) PO QAM #60 02/22/24 mcg tablet tabs ergocalciferol (vitamin D2) 1,250 1,250 mcg PO DAILY #30 caps 02/22/24 mcg (50,000 unit) capsule ferrous sulfate 325 mg (65 mg 325 mg PO QAM #30 tabs 02/22/24 iron) tablet,delayed release magnesium chloride 64 mg 64 mg PO BID #60 tabs 02/22/24 (magnesium chloride) tablet,delayed release (Mag 64) metoprolol tartrate 25 mg tablet 12.5 mg (1/2 x 25 mg) PO BID #30 02/22/24 tabs tamsulosin 0.4 mg capsule 0.4 mg PO QAM #30 caps 02/22/24 Results & Data (ED) Vital Signs Vital Signs - 24 hr 03/24/24 16:06 03/24/24 16:32 03/24/24 16:34 Temperature 36.8 C Temperature Source Oral Pulse Rate 118 H 87 Pulse Rate [Apical] Pulse Rhythm Regular Regular Pulse Rhythm [Apical] Pulse Strength Normal Pulse Strength [Apical] Respiratory Rate 21 18 Respiratory Effort / Characteristics Non-Labored Respiratory Depth Normal Respiratory Pattern Regular Blood Pressure 78/54 L Blood Pressure [Left Arm] Blood Pressure Mean 62 Blood Pressure Mean [Left Arm] Blood Pressure Position Sitting Blood Pressure Position [Left Arm] Pulse Oximetry 100 92 94 Oxygen Delivery Method Room Air Room Air Room Air Sepsis Recent Fever Within 48 Hours No Sepsis New/Unexplained Change in Mental Status No Sepsis Action Taken by Nursing Physician Notified 03/24/24 16:34 03/24/24 17:05 03/24/24 17:12 Temperature Temperature Source Pulse Rate 108 H Pulse Rate [Apical] 87 84 Pulse Rhythm Pulse Rhythm [Apical] Regular Pulse Strength Pulse Strength [Apical] Normal Normal Respiratory Rate 14 16 Respiratory Effort / Characteristics Non-Labored Spontaneous Non-Labored Spontaneous Respiratory Depth Normal Normal Respiratory Pattern Regular Regular Blood Pressure Blood Pressure [Left Arm] 115/69 124/72 Blood Pressure Mean Blood Pressure Mean [Left Arm] 84 89 Blood Pressure Position Blood Pressure Position [Left Arm] Lying Lying Pulse Oximetry 94 100 Oxygen Delivery Method Room Air Room Air Sepsis Recent Fever Within 48 Hours Sepsis New/Unexplained Change in Mental Status Sepsis Action Taken by Nursing 03/24/24 18:12 03/24/24 20:00 03/24/24 20:14 Temperature Temperature Source Pulse Rate 84 Pulse Rate [Apical] 97 H 87 Pulse Rhythm Pulse Rhythm [Apical] Regular Pulse Strength Pulse Strength [Apical] Normal Normal Respiratory Rate 16 16 Respiratory Effort / Characteristics Non-Labored Spontaneous Non-Labored Spontaneous Respiratory Depth Normal Normal Respiratory Pattern Regular Regular Blood Pressure Blood Pressure [Left Arm] 120/63 121/72 Blood Pressure Mean Blood Pressure Mean [Left Arm] 82 88 Blood Pressure Position Blood Pressure Position [Left Arm] Lying Lying Pulse Oximetry 97 97 Oxygen Delivery Method Room Air Room Air Sepsis Recent Fever Within 48 Hours Sepsis New/Unexplained Change in Mental Status Sepsis Action Taken by Nursing Laboratory Data 03/24/24 16:21 03/24/24 16:21 Lab Results 03/24/24 03/24/24 03/24/24 Range/Units 16:21 17:35 17:47 WBC 5.95 (4.8-10.8) K/ul RBC 2.53 L (4.70-6.10) M/uL Hgb 7.0 L (14.0-18.0) g/dl Hct 22.5 L (42.0-52.0) % MCV 88.9 (80.0-100.0) fL MCH 27.7 (25.0-34.0) pg MCHC 31.1 L (32.0-36.0) g/dL RDW Std Deviation 58.6 H (36.4-46.3) fL RDW Coeff of Clara 18.4 H (11.5-14.5) % Plt Count 79 L (130-400) K/uL MPV 11.6 (9.4-12.4) fL Absolute Nucleated RBC 0.07 (0.00-0.12) K/uL Nucleated RBC % (auto) 1.2 % Neutrophils % (Manual) 81 % Lymphocytes % (Manual) 9 % Monocytes % (Manual) 3 % Metamyelocytes % (Man) 3 % Myelocytes % (Man) 4 % Neutrophils # (Manual) 4.82 (1.40-6.50) K/uL Total Absolute Neuts 4.82 (1.4-6.5) K/uL Lymphocytes # (Manual) 0.54 L (1.2-3.4) K/uL Total Abs Lymphocytes 0.54 L (1.2-3.4) K/uL Monocytes # (Manual) 0.18 (0.11-0.59) K/uL Metamyelocytes # (Man) 0.18 H (0-0) K/uL Myelocytes # (Manual) 0.24 H (0-0) K/uL Anisocytosis Present Sodium 138 (136-145) mmol/L Potassium 4.7 (3.5-5.1) mmol/L Chloride 106 (98-107) mmol/L Carbon Dioxide 18 L (21-32) mmol/L Anion Gap 14 H (3-11) BUN 30 H (6-23) mg/dl Creatinine 1.33 (0.6-1.4) mg/dl Est Cr Clr Drug Dosing Not Reportable Est GFR ( Amer) 65.0 ml/min Est GFR (Non-Af Amer) 56.1 ml/min BUN/Creatinine Ratio 22.6 H (10-20) Glucose 246 H (70-99(Fasting)) mg/dl Lactate 4.7 H* (0.4-2.0) mmol/L Calcium 9.0 (8.6-10.3) mg/dl Magnesium 2.5 H (1.7-2.4) mg/dl Total Bilirubin 0.6 (0.2-1.0) mg/dl AST 32 (13-39) U/L ALT 10 (7-52) U/L Alkaline Phosphatase 1138 H (34-104) U/L Troponin I High Sens 42.9 H (0-20) pg/ml Total Protein 7.6 (6.0-8.3) gm/dl Albumin 3.8 (3.4-5.0) gm/dl Globulin 3.8 (2.5-4.0) gm/dl Albumin/Globulin Ratio 1.0 (0.9-2) Procalcitonin 0.30 (0-0.5) ng/ml Urine Color Yellow Urine Appearance Cloudy A (Clear) Urine pH 5.5 (4.5-7.5) Ur Specific [place] 1.027 (1.000-1.030) Urine Protein 2+ H (Negative) Urine Glucose (UA) 3+ H (Negative) Urine Ketones Negative (Negative) Urine Blood 3+ H (Negative) Urine Nitrite Negative (Negative) Urine Bilirubin Negative (Negative) Urine Urobilinogen Negative (Negative) Ur Leukocyte Esterase 1+ H (Negative) Urine WBC (Auto) >50 H (0-5) /hpf Urine RBC (Auto) >20 H (0-2) /hpf U Hyaline Cast (Auto) 3-5 H (0-2) /lpf U Epithel Cells (Auto) 0-2 (0-2) /hpf Urine Bacteria (Auto) None Seen (None Seen) Blood Type A Positive Antibody Screen NEGATIVE 03/24/24 Range/Units 18:23 WBC (4.8-10.8) K/ul RBC (4.70-6.10) M/uL Hgb (14.0-18.0) g/dl Hct (42.0-52.0) % MCV (80.0-100.0) fL MCH (25.0-34.0) pg MCHC (32.0-36.0) g/dL RDW Std Deviation (36.4-46.3) fL RDW Coeff of Clara (11.5-14.5) % Plt Count (130-400) K/uL MPV (9.4-12.4) fL Absolute Nucleated RBC (0.00-0.12) K/uL Nucleated RBC % (auto) % Neutrophils % (Manual) % Lymphocytes % (Manual) % Monocytes % (Manual) % Metamyelocytes % (Man) % Myelocytes % (Man) % Neutrophils # (Manual) (1.40-6.50) K/uL Total Absolute Neuts (1.4-6.5) K/uL Lymphocytes # (Manual) (1.2-3.4) K/uL Total Abs Lymphocytes (1.2-3.4) K/uL Monocytes # (Manual) (0.11-0.59) K/uL Metamyelocytes # (Man) (0-0) K/uL Myelocytes # (Manual) (0-0) K/uL Anisocytosis Sodium (136-145) mmol/L Potassium (3.5-5.1) mmol/L Chloride (98-107) mmol/L Carbon Dioxide (21-32) mmol/L Anion Gap (3-11) BUN (6-23) mg/dl Creatinine (0.6-1.4) mg/dl Est Cr Clr Drug Dosing Est GFR ( Amer) ml/min Est GFR (Non-Af Amer) ml/min BUN/Creatinine Ratio (10-20) Glucose (70-99(Fasting)) mg/dl Lactate 4.1 H* (0.4-2.0) mmol/L Calcium (8.6-10.3) mg/dl Magnesium (1.7-2.4) mg/dl Total Bilirubin (0.2-1.0) mg/dl AST (13-39) U/L ALT (7-52) U/L Alkaline Phosphatase (34-104) U/L Troponin I High Sens (0-20) pg/ml Total Protein (6.0-8.3) gm/dl Albumin (3.4-5.0) gm/dl Globulin (2.5-4.0) gm/dl Albumin/Globulin Ratio (0.9-2) Procalcitonin (0-0.5) ng/ml Urine Color Urine Appearance (Clear) Urine pH (4.5-7.5) Ur Specific [place] (1.000-1.030) Urine Protein (Negative) Urine Glucose (UA) (Negative) Urine Ketones (Negative) Urine Blood (Negative) Urine Nitrite (Negative) Urine Bilirubin (Negative) Urine Urobilinogen (Negative) Ur Leukocyte Esterase (Negative) Urine WBC (Auto) (0-5) /hpf Urine RBC (Auto) (0-2) /hpf U Hyaline Cast (Auto) (0-2) /lpf U Epithel Cells (Auto) (0-2) /hpf Urine Bacteria (Auto) (None Seen) Blood Type Antibody Screen Administered Medications Discontinued Medications Hydromorphone HCl (Hydromorphone Inj 0.5 Mg/0.5 Ml Syr) 0.5 mg IV NOW STA Stop: 03/24/24 17:26 Last Admin: 03/24/24 17:28 Dose: 0.5 mg Documented By: JACQUELYN Hydromorphone HCl (Hydromorphone Inj 0.5 Mg/0.5 Ml Syr) 0.5 mg IV NOW STA Stop: 03/24/24 18:32 Last Admin: 03/24/24 18:42 Dose: 0.5 mg Documented By: JACQUELYN Hydromorphone HCl (Hydromorphone Inj 1 Mg/Ml Syringe) 1 mg IV NOW STA Stop: 03/24/24 19:24 Last Admin: 03/24/24 19:27 Dose: 1 mg Documented By: JACQUELYN Sodium Chloride (Nss) 500 mls @ 999 mls/hr IV .Q31M ONE Stop: 03/24/24 16:39 Last Infusion: 03/24/24 17:08 Dose: Infused Documented By: Admin: 03/24/24 16:29 Dose: 999 mls/hr Documented By: SNS Sodium Chloride (Nss) 1,000 mls @ 999 mls/hr IV .Q1H1M ONE Stop: 03/24/24 17:12 Last Infusion: 03/24/24 18:10 Dose: Infused Documented By: Admin: 03/24/24 16:30 Dose: 999 mls/hr Documented By: JACQUELYN Piperacillin Sod/Tazobactam Sod (Zosyn) 4.5 gm in 100 mls @ 200 mls/hr IV NOW ONE Stop: 03/24/24 19:00 Last Infusion: 03/24/24 19:23 Dose: Infused Documented By: Admin: 03/24/24 18:44 Dose: 200 mls/hr Documented By: SNS Sodium Chloride (Nss) 500 mls @ 999 mls/hr IV .Q31M ONE Stop: 03/24/24 19:02 Last Infusion: 03/24/24 19:23 Dose: Infused Documented By: Admin: 03/24/24 18:44 Dose: 999 mls/hr Documented By: JACQUELYN Ondansetron HCl (Ondansetron Inj 2 Mg/Ml 2 Ml Vial) 4 mg IV NOW STA Stop: 03/24/24 16:33 Last Admin: 03/24/24 16:41 Dose: 4 mg Documented By: SNS Imaging Data Radiologist's Impression: Ribs w/Chest X-Ray 03/24/24 16:09 SUPINE AP CHEST RADIOGRAPH AND RIGHT RIB SERIES CLINICAL HISTORY: recent fall, right rib pain COMPARISON: Chest radiograph February 15, 2024. PET/CT November 21, 2023. FINDINGS: No pneumothorax is identified on supine exam. No acute right-sided rib fractures are identified. Multiple skeletal sclerotic rib lesions are better depicted on prior PET/CT. Bilateral ureteral stents are partially imaged. IMPRESSION: 1. No pneumothorax identified on supine exam. No acute right-sided rib fractures. 2. Numerous skeletal metastases, as shown on prior PET/CT. ACT 112: Negative or not required by law. Electronically signed by: Antonio Jama M.D. 03/24/2024 5:39 PM Discharge Plan Visit Data Chief Complaint: Shortness of Breath/Dyspnea Stated Complaint: SOB, LOW ON FLUID, GETTING RADIATION, NO APPETITE ED Provider: Sheri Howe Discharge Problem: Generalized weakness, Non-ST elevation AR (NSTEMI), Sepsis, Acute UTI (urinary tract infection), Thrombocytopenia, Elevated lactic acid level Forms Stand Alone Forms: My [facility] Prescriptions Prescriptions: No Action acetaminophen [Tylenol Extra Strength] 500 mg tablet 500 - 1,000 mg PO Q6H PRN (Reason: Pain) Xgeva 120 mg/1.7 mL (70 mg/mL) solution 120 mg subcut MONTHLY Rx Instructions: Calcium has been too low for injections. - last received in Oct- Nov Entresto 24-26 mg tablet 1 tab PO BID Hold Instructions: Hold until told to resume by Nephrology Tradjenta 5 mg tablet 5 mg PO QAM clopidogrel 75 mg tablet 75 mg PO QAM Hold Instructions: Resume on 02/13/24. Hold until you discuss with your family doctor Rx Instructions: ON HOLD tramadol 50 mg tablet 150 mg PO BID buspirone 5 mg tablet 5 mg PO TID atorvastatin 80 mg Tablet 80 mg PO QPM Jardiance 25 mg tablet 25 mg PO QAM Hold Instructions: Hold until told to resume by Nephrology aspirin 81 mg Tablet,Delayed Release (Dr/Ec) 81 mg PO QAM Qty: 30 0RF Hold Instructions: Resume on 02/13/24. Hold until you discuss with your family doctor Rx Instructions: ALWAYS WITH FOOD ondansetron HCl 8 mg Tablet 8 mg PO DIRECTED PRN (Reason: Nausea) prochlorperazine maleate [Compazine] 10 mg tablet 10 mg PO DIRECTED PRN (Reason: Nausea) morphine 15 mg tablet 15 mg PO BID PRN (Reason: Pain) Rx Instructions: Pt will sometimes cut tablet into 4 equal pieces and take 1/4th of tablet. K-Phos Original 500 mg tablet,soluble 500 mg PO BID morphine 15 mg Tablet Extended Release 15 mg PO DAILY PRN (Reason: Pain) ferrous sulfate 325 mg (65 mg iron) Tablet,Delayed Release (Dr/Ec) 325 mg PO QAM Qty: 30 0RF tamsulosin 0.4 mg Capsule 0.4 mg PO QAM Qty: 30 0RF metoprolol tartrate 25 mg Tablet 12.5 mg PO BID Qty: 30 0RF magnesium chloride [Mag 64] 64 mg Tablet,Delayed Release (Dr/Ec) 64 mg PO BID Qty: 60 0RF cyanocobalamin (vitamin B-12) 500 mcg Tablet 1,000 mcg PO QAM Qty: 60 0RF calcium carbonate [Tums] 200 mg calcium (500 mg) Tablet,Chewable 1,500 mg PO TID Qty: 360 0RF ergocalciferol (vitamin D2) 1,250 mcg (50,000 unit) Capsule 1,250 mcg PO DAILY Qty: 30 0RF calcitriol 0.25 mcg Capsule 1 mcg PO QAM Qty: 120 0RF lidocaine HCl 2 % jelly in applicator 1 ml EXT BID PRN (Reason: Other) Referrals Referrals: Dru Fritz MD [Primary Care Provider] -
[2024-03-24] MEDS: ONDANSETRON INJ 2 MG/ML 2 ML VIAL IV STA (16:41)
[2024-03-24 16:57] LABS: Hematocrit (blood only) 22.5 % (42.0-52.0); Mean Corpuscular Hemoglobin 27.7 pg (25.0-34.0); Mean Corpuscular Hgb Conc 31.1 g/dL (32.0-36.0); Mean Corpuscular Volume 88.9 fL (80.0-100.0); Mean Platelet Volume 11.6 fL (9.4-12.4); Nucleated RBC # (auto) 0.07 K/uL (0.00-0.12); Nucleated RBC % (auto) 1.2 %; Platelet Count 79 K/uL (130-400); RDW Coefficient of Variation 18.4 % (11.5-14.5); RDW Standard Deviation 58.6 fL (36.4-46.3); Red Blood Count 2.53 M/uL (4.70-6.10); White Blood Count 5.95 K/ul (4.8-10.8)
[2024-03-24 17:15] LABS: ALC (manual) 0.54 K/uL (1.2-3.4); ANC (manual) 4.82 K/uL (1.4-6.5); Anisocytosis Present; Lymphocytes # (manual) 0.54 K/uL (1.2-3.4); Lymphocytes % (manual) 9 %; Metamyelocytes # (manual) 0.18 K/uL (0-0); Metamyelocytes % (manual) 3 %; Monocytes # (manual) 0.18 K/uL (0.11-0.59); Monocytes % (manual) 3 %; Myelocytes # (manual) 0.24 K/uL (0-0); Myelocytes % (manual) 4 %; Neutrophils # (manual) 4.82 K/uL (1.40-6.50); Neutrophils % (manual) 81 %
[2024-03-24 17:19] LABS: Alanine Aminotransferase 10 U/L (7-52); Albumin Level 3.8 gm/dl (3.4-5.0); Alkaline Phosphatase 1138 U/L (34-104); Anion Gap 14 (3-11); Aspartate Aminotransferase 32 U/L (13-39); BUN Creatinine Ratio 22.6 (10-20); Bilirubin,Total 0.6 mg/dl (0.2-1.0); Blood Urea Nitrogen 30 mg/dl (6-23); Carbon Dioxide 18 mmol/L (21-32); Chloride 106 mmol/L (98-107); Est GFR (Non-African American) 56.1 ml/min; Globulin 3.8 gm/dl (2.5-4.0); Glucose 246 mg/dl (70-99(Fasting)); Magnesium 2.5 mg/dl (1.7-2.4); Potassium 4.7 mmol/L (3.5-5.1); Sodium 138 mmol/L (136-145); Total Protein 7.6 gm/dl (6.0-8.3)
[2024-03-24 17:24] LABS: Troponin I High Sensitivity 42.9 pg/ml (0-20)
[2024-03-24] MEDS: HYDROmorphone INJ 0.5 MG/0.5 ML SYR IV STA ×2 (17:28→18:42)
--- NOTE | 2024-03-24 17:41 | XRay Report ---
SUPINE AP CHEST RADIOGRAPH AND RIGHT RIB SERIES CLINICAL HISTORY: recent fall, right rib pain COMPARISON: Chest radiograph February 15, 2024. PET/CT November 21, 2023. FINDINGS: No pneumothorax is identified on supine exam. No acute right-sided rib fractures are ident ified. Multiple skeletal sclerotic rib lesions are better depicted on prior PET/CT. Bilateral uretera l stents are partially imaged. IMPRESSION: 1. No pneumothorax identified on supine exam. No acute right-sided rib fractures. 2. Numerous skeletal metastases, as shown on prior PET/CT. ACT 112: Negative or not required by law. Electronically signed by: Antonio Jama M.D. 03/24/2024 5:39 PM
[2024-03-24 18:43] LABS: Appearance Urine Cloudy (Clear); Bacteria Urine Automated None Seen (None Seen); Bilirubin Urine Negative (Negative); Blood Urine 3+ (Negative); Color Urine Yellow; Epithelial Cell Urine Auto 0-2 /hpf (0-2); Glucose Urine UA 3+ (Negative); Ketones Urine Negative (Negative); Leukocyte Esterase Urine 1+ (Negative); Nitrite Urine Negative (Negative); Protein Urine 2+ (Negative); RBC Urine Automated >20 /hpf (0-2); Specific Gravity Urine 1.027 (1.000-1.030); Urobilinogen Urine Negative (Negative); WBC Urine Automated >50 /hpf (0-5); pH Urine 5.5 (4.5-7.5)
[2024-03-24] MEDS: PIPERACILLIN/TAZOBACTAM 4.5 GM/100 ML BAG IV ONE (18:44)
--- NOTE | 2024-03-24 18:45 | Electrocardiogram Report ---
Test Reason : Blood Pressure : / mmHG Vent. Rate : 092 BPM Atrial Rate : 092 BPM P-R Int : 150 ms QRS Dur : 096 ms QT Int : 372 ms P-R-T Axes : 000 061 -38 degrees QTc Int : 460 ms Normal sinus rhythm Nonspecific ST and T wave abnormality Lateral leads Abnormal ECG When compared with ECG of 16-FEB-2024 11:23, Premature supraventricular complexes are no longer Present Nonspecific T wave abnormality now evident in Lateral leads Nonspecific ST abnormality now present Lateral leads Confirmed by Dru Valdez ([id number]) on 03/24/2024 6:45:11 PM Referred By: Confirmed By:Dru Valdez
[2024-03-24] MEDS: HYDROmorphone INJ 1 MG/ML SYRINGE IV STA (19:27)
--- OUTSIDE RECORDS SUMMARY | 2024-03-24 20:13 | External Medical Summary | Summary of Care ---
Author Name Unknown Organization [facility] Address [address] [place] [address] Phone [phone] Care Team Providers Care Chucking Machine Set Up Operator Name Role Phone Dru Fritz MD Primary Care Provider [phone] Reason for Visit * Reason Onset Date Comments Advice 03/24/2024 Encounter Details Date Type Department Care Team (Late st Contact Info) Description 03/24/2024 Telephone Hematology/Oncology [facility] [place] [address] [facility] [place] [phone] Elio Queen [facility] [address] Advice Allergies Active Allergy Reactions Criticality Noted Date Comments Amoxicillin-Pot Clavulanate 05/17/20 22 Dizziness and confused documented as of this encounter (statuses as of 03/24/2024) Medications Medication Sig Dispensed Refills Start Date End Date Status DLS SYSTEM W/DEVICE KITIndications:DM type 2, goal A1c below 7 Use up to four times a day as directed 1 Kit 0 07/28/2014 Active Aspirin 81 MG TBEC Take 1 Tablet by mouth in the morning. Active sildenafil (REVATIO) 20 MG Tablet Take 3 tablets by mouth 1 hour prior to sexual activity 30 Tab 5 03/27/2018 Active Blood Glucose Monitoring Suppl (ONETOUCH VERIO) w/Device KIT Use up to 4 times a day E11.9 1 Kit 01/12/2020 Active Acetaminophen 500 MG Oral TabletIndications:T akes twice daily. Take 1 Tablet by mouth every 6 hours as needed. Active Xgeva 120 MG/1.7ML Subcutaneous Solution (Denosumab) Inject 120 mg under the skin Every Month. Active Entresto 24-26 MG Oral Tablet (sacubitril-valsart an 24-26 mg per tab)Indications:Ess ential hypertension with goal blood pressure less than 140/90 TAKE ONE TABLET BY MOUTH TWICE A DAY 180 Tablet 3 05/03/2023 05/02/2024 Active K-Phos 500 MG Oral Tablet (potassium phosphate)Indicatio ns:Hypophosphatemia TAKE ONE TABLET BY MOUTH TWICE A DAY 180 Tablet 1 07/17/2023 Active Empagliflozin 25 MG Oral Tablet (Jardiance)Indicati ons:Type 2 diabetes mellitus with diabetic neuropathy, without long-term current use of insulin (HCC) TAKE ONE TABLET BY MOUTH DAILY IN THE MORNING 90 Tablet 3 08/15/2023 08/14/2024 Active Atorvastatin Calcium 80 MG Oral Tablet (Lipitor)Indication s:History of CVA (cerebrovascular accident),Dyslipide deborah TAKE ONE TABLET BY MOUTH EVERY DAY IN THE MORNING 90 Tablet 2 08/27/2023 08/26/2024 Active Ondansetron HCl 8 MG Oral Tablet (Zofran)Indications :Prostate cancer metastatic to multiple sites (HCC) Take 1 Tablet by mouth every 8 hours as needed for Nausea. 30 Tablet 2 09/13/2023 Active Prochlorperazine Maleate 10 MG Oral Tablet (Compazine)Indicati ons:Prostate cancer metastatic to multiple sites (HCC) Take 1 Tablet by mouth every 6 hours as needed for Nausea. 30 Tablet 2 09/13/2023 Active linaGLIPtin 5 MG Oral Tablet (Tradjenta)Indicati ons:Type 2 diabetes mellitus with diabetic neuropathy, without long-term current use of insulin (HCC) TAKE ONE TABLET BY MOUTH EVERY MORNING 90 Tablet 1 12/10/2023 12/09/2024 Active PARoxetine HCl 10 MG Oral Tablet (Paxil) Take 1 Tablet by mouth in the morning. 90 Tablet 3 12/26/2023 Active Additional Information Patient not taking.Reported on 03/06/2024 Clopidogrel Bisulfate 75 MG Oral Tablet (pLAVix) TAKE ONE TABLET BY MOUTH IN THE MORNING 30 Tablet 5 01/06/2024 01/05/2025 Active Additional Information Patient not taking.Reported on 03/06/2024 Morphine Sulfate 15 MG Oral Tablet (Msir)Indications:M alignant neoplasm metastatic to bone (HCC) Take 1 Tablet by mouth in the morning and 1 Tablet before bedtime. 60 Tablet 02/12/2024 Active traMADol HCl 50 MG Oral Tablet (Ultram)Indications :Malignant neoplasm metastatic to bone (HCC) Take 2 Tablets by mouth 3 times a day as needed for moderate pain. 180 Tablet 02/12/2024 Active Ergocalciferol 1.25 MG (26751 UT) Oral Capsule (Vitamin D2(Drisdol)) Take 1 Capsule by mouth every 30 days. Active Magnesium 80 MG Oral Tablet Take by mouth. Active Calcium Carbonate Antacid 500 MG Oral Tablet Chewable (Tums) Take 1 Tablet by mouth in the morning. Active B-12 1000-400 MCG Sublingual Tablet Sublingual Place under the tongue. Active FeroSul 325 (65 Fe) MG Oral Tablet TAKE ONE TABLET BY MOUTH DAILY IN THE MORNING 02/22/2024 Active Magnesium Cl-Calcium Carbonate 71.5-119 MG Oral Tablet Delayed Release 64 mg. 02/22/2024 Active Metoprolol Tartrate 25 MG Oral Tablet (Lopressor) 0.5 Tablets. 02/22/2024 Active Calcitriol 0.25 MCG Oral Capsule (Rocaltrol) DAILY IN THE MORNING 02/22/2024 Active Tamsulosin HCl 0.4 MG Oral Capsule (Flomax) 1 Capsule. 02/22/2024 Active Morphine Sulfate ER 15 MG Oral Tablet Extended Release (MS Contin)Indications: Cancer associated pain Take 1 Tablet by mouth in the morning and 1 Tablet before bedtime. 60 Tablet 03/07/2024 Active busPIRone HCl 5 MG Oral Tablet (Buspar) Take one tablet by mouth three times daily 30 Tablet 03/10/2024 Active documented as of this encounter (statuses as of 03/24/2024) Active Problems Problem Noted Date Diagnosed Date Controlled substance agreement signed 03/07/2024 Malignant neoplasm metastatic to bone 11/04/2021 Prostate cancer metastatic to multiple sites 07/2021 History of left common carotid artery stent plac ement 03/08/2021 Primary insomnia 03/07/2021 Asymptomatic bilateral carotid artery stenosis 0 10/28/2020 History of CVA (cerebrovascular accident) 2018 Overview: Right parietal stroke March 2019 Nonischemic cardiomyopathy 03/31/2019 Chronic systolic heart failure 03/31/2019 PAD (peripheral artery disease) 08/21/2017 Stage 3a chronic kidney disease 05/15/2016 Overview: Per CKD protocol #1 Type 2 diabetes mellitus wit h hemoglobin A1c goal of less than 7.0% 01/24/2016 HTN, goal below 130/80 01/24/2016 Dyslipidemia 07/23/2014 Tobacco use disorder 08/14/2007 documented as of this encounter (statuses as of 03/24/2024) Resolved Problems Problem Noted Date Diagnosed Date Resolved Date Encounter for antineoplastic chemotherapy 08/17/2023 03/07/2024 Hydronephrosis, bilateral 02/15/2022 Incomplete emptying of bladder 02/15/2022 03/10/2022 Renal failure 06/10/2021 06/14/2021 Retention of urine 06/10/2021 Prostate nodule 06/10/2021 06/14/2021 Elevated prostate specific antigen (PSA) 06/10/2021 06/14/2021 Type 2 diabetes mellitus wit h stage 3 chronic kidney disease, without long-term current use of insulin 05/20/2019 03/07/2024 Hypertensive heart and kidne y disease with acute on chronic systolic congestive heart failure and stage 3 chronic kidney disease 05/20/2019 03/07/2024 Type 2 diabetes mellitus wit h diabetic neuropathy, without long-term current use of insulin 08/21/2017 03/07/2024 BPH with obstruction/lower u rinary tract symptoms [...] as of this encounter (statuses as of 03/24/2024) Immunizations No known immunizationsdocumented as of this encounter Social History Tobacco Use Types Packs/Day Years Used Date Smoking Tobacco: Every Day Cigarettes 0.5 30 Smokeless Tobacco: Never Comments:03/06/24, 3 -4 cigare ttes day Alcohol Use Standard Drinks/Week Comments Yes 0 (1 standard drink = 0.6 oz pur e alcohol) rarely PHQ-2 Answer Date Recorded PHQ Adult Total Score 0 03/06/2024 Hunger Vital Sign Answer Date Recorded Within the past 12 months, y ou worried that your food would run out before you got the money to buy more. Never true 03/06/20 24 Within the past 12 months, t he food you bought just didn't last and you didn't have money to get more. Never true 03/06/2024 Childcare Answer Date Recorded Do you feel overwhelmed with taking care of a child, family member or friend? No 03/06/2024 Does your family need help f inding childcare? (Household - for ages 0-17 years) Not on file 03/06/2024 Clothing Answer Date Recorded Have you been unable to get clothing when it was really needed? No 03/06/2024 Is your family able to get c lothes or diapers when needed? (Household - for ages 0-17 years) Not on file 03/06/2024 Personal Safety Answer Date Recorded Do you feel unsafe or have concerns for your saf ety? No 03/06/2024 Do you have concerns for you r family's safety? (Household - for ages 0-17 years) Not on file 03/06/2024 Utilities Answer Date Recorded Do you have trouble paying y our heating, water, or electric bill? No 03/06/2024 Is your family able to pay t he heat, water, or electric bill? (Household - for ages 0-17 years) Not on file 03/06/2024 Does your family have access to good internet? (Household - for ages 0-17 years) Not on file 03/06/2024 Employment Status Answer Date Recorded Are you unemployed or without regular income? No 03/06/2024 Does the household have a re gular source of income? (Household - for ages 0-17 years) Not on file 03/06/2024 Social Connections Answer Date Recorded How often do you feel lonely or isolated from th ose around you? Never 03/06/2024 Financial Resource Strain Answer Date R ecorded Do you have any trouble payi ng for your medications, or do you think you might in the future? No 03/06/2024 Does your family have troubl e paying for medicine? (Household - for ages 0-17 years) Not on file 03/06/2024 Transportation Needs Answer Date Record ed READ ONLY Do you have troubl e getting a ride to medical visits or work? Never True 03/06/2024 Does your family have a hard time getting a ride to doctors visits? (Household - for ages 0-17 years) Not on file 03/06/2024 Has lack of transportation k ept you from medical appointments, meetings, work, or from getting things needed for daily living? Check all that apply. (Adult - for ages 18 years and over) Not on file 03/06/2024 Do you (or your family) have trouble finding or paying for a ride (transportation)? (Household - for ages 0-17 years) Not on file 03/06/2024 Housing Stability Answer Date Recorded Do you currently live in a s helter or have no steady place to sleep at night? No 03/06/2024 READ ONLY Do you think you a re at risk of becoming homeless? No 03/06/2024 Does your family worry about paying for your home or becoming homeless? (Household - for ages 0-17 years) Not on file 0 03/06/2024 Are you homeless or worried that you might be in the future? (Adult - for ages 18 years and over) Not on file Are you (or your family) jonel eless or worried that you might be in the future? (Household - for ages 0-17 years) Not on file Food Insecurity Answer Date Recorded Do you need food for this week? No 03/06/2024 Are you able to get enough f ood for your family? (Household - for ages 0-17 years) Not on file 03/06/2024 Does your family need food t his week? (Household - for ages 0-17 years) Not on file 03/06/2024 Do you always have enough fo od for your family? (Household - for ages 0-17 years) Not on file 03/06/2024 Sex and Gender Information Value Date Recorded [...] Telephone Encounter - Ángel Thompson RN - 03/24/2024 9:07 AM EDT Pt and calling in this morning. Pt stating that he awoke this morning and was confused, thought he was at [facility] and was incontinent in bed. States he has been having ongoing issues with urination, his pee has been a copper color and has noticed blood in it. Pt seems short of breath on the phone and wet cough noticed. Pt advises he has had a cough for a few days now, has been laying in bed and sleeping a lot. states he is now below 100 pounds. Advised patient that he needs to be seen in the ER for further evaluation of his urinary issues/cough. Pt and agreeable to this plan. documented in this encounter Plan of Treatment Upcoming Encounters Date Type Department Care Team (Late st Contact Info) Description 04/07/2024 1:45 PM EDT Office Visit Urology, [facility] [address] [facility] [address] Isaías Novak MD [address] [place] [address] [place] [address] 04/18/2024 1:15 PM EDT Office Visit Hematology/Oncology [facility] [address] [place] [phone] Elio Queen MD [address] [facility] [place] [address] 04/21/2024 2:30 PM EDT Office Visit Urology, [facility] 132 [facility] [place] [address] Isaías Novak MD [address] [place] [address] [place] [address] 05/08/2024 11:00 AM EDT Laboratory Laboratory [facility] [place] [address] [place] [phone] [facility] [place] [address] [address] [facility] [place] [address] 05/08/2024 11:45 AM EDT Immunization/Injectio n Hematology/Oncology Treatment, [place] [address] [place] [phone] Nurse, Med [address] [place] [address] 05/20/2024 2:15 PM EDT Office Visit Urology, [facility] 132 [facility] [place] [address] Isaías Novak MD [address] [place] [address] [place] [address] 07/01/2024 4:00 PM EDT Office Visit Family Practice [facility] [address] [facility] [place] [address] Dru Fritz MD [address] [facility] [place] [address] Health Maintenance Due Date Last Done Comments DISCUSS TOBACCO CESSATION (REFER TO SMARTSET #7258) 1960 COVID-19 Vaccine (#1) 1964 Pneumococcal Vaccine: [...] Foot Exam 05/20/2020 05/20/2019, 0 03/27/2018, 10/28/2015 Diabetic Eye Exam 03/02/2022 03/02/2021, , 01/24/2016, Additional history exists Albumin/Creatinine Ratio 05/15/2023 022, 02/13/2018, 10/27/2015, Additional history exists Influenza Vaccine (FLU shot) (Season Ended) 2024 HbA1c 06/15/2024 12/14/2023, 04/1 03/2023, 05/15/2022, Additional history exists GFR 09/10/2024 03/11/2024, 06/0 03/2024, 02/15/2024, Additional history exists Depression Screening 03/06/2025 03/06/2024 CKD HGB USE SMARTSET 93499 03/11/202503/11, 03/11/2024, 03/06/2024, Additional history exists CKD PHOS USE SMARTSET 74757 03/11/2025 0610/2023, 03/06/2024, 02/14/2024, Additional history exists GARDASIL-HPV IMMUNIZATION SERIES Aged Out No longer eligible based on patient's age to complete this topic Hepatitis B Aged Out No longer eligi ble based on patient's age to complete this topic MENINGOCOCCAL (MENACTRA/MENVEO) Aged Out No longer eligible based on patient's age to complete this topic documented as of this encounter Medical Devices Implanted Type Area Reel Winder Device Identifier Shelf Expiration Date Model / Serial / Lot Stent Trnscarotid Enroute 7x40 - [id number] Implanted:Qty: 1 on 01/25/2021 by Zeinab Robert MD at [facility] Left: [facility] [id number] 05/31/2023 SR-0740-C S / / [id number] documented as of this encounter Advance Directives * Full Code (Latest Code Status on File) Date Activated Date Inactivated Comments 01/25/2021 10:53 AM 01/26/2021 1:19 PM This order reflects the patients wishes and were consensually agreed upon. Healthcare Agents on File Name Relationship Healthcare Agent Relationship Communication Brittaney Chaudhari Spouse Health Care Re presentative (appointed verbally by patient or by statute hierarchy) Care Teams Chucking Machine Set Up Operator Relationship Specialty Start Date End Date Dru Fritz MD [address] [place] [address] PCP - General Family Medicine 01/24/21 documented as of this encounter
--- OUTSIDE RECORDS SUMMARY | 2024-03-24 20:14 | External Medical Summary | Summary of Care ---
Author Name Unknown Organization [facility] Address [address] [place] [address] Phone [phone] Care Team Providers Care Pond Worker Name Role Phone Dru Fritz MD Primary Care Provider [phone] Encounter Details Date Type Department Care Team (Late st Contact Info) Description 03/14/2024 4:00 PM EDT Scheduled Telephone Care Coordination and Integration [address] [place], [place] [phone] Cathi Amin [facility] Health Chemical Detection Expert [address], [place] [phone] Allergies Active Allergy Reactions Criticality Noted Date Comments Amoxicillin-Pot Clavulanate 05/17/20 22 Dizziness and confused documented as of this encounter (statuses as of 03/14/2024) Medications Medication Sig Dispensed Refills Start Date End Date Status Pantheon SYSTEM W/DEVICE KITIndications:DM type 2, goal A1c [...] 180 Tablet 02/12/2024 Active Ergocalciferol 1.25 MG (45497 UT) Oral Capsule (Vitamin D2(Drisdol)) Take 1 [...] as of this encounter (statuses as of 03/14/2024) Active Problems Problem Noted Date Diagnosed Date [...] as of this encounter (statuses as of 03/14/2024) Resolved Problems Problem Noted Date Diagnosed Date [...] as of this encounter (statuses as of 03/14/2024) Immunizations No known immunizationsdocumented as of this [...] money to get more. Never true 03/06/2024 Sex and Gender Information Value Date [...] as of this encounter Progress Notes * Cathi Amin [facility] Chemical Detection Expert - 03/14/2024 4:02 PM EDT Telemedicine visit: No Community [facility] Chemical Detection Expert ([place]) documentation: CHW f/u call per Millie Chaudhari RNCM [facility]; LVM documented in this encounter Plan of Treatment Upcoming Encounters Date Type Department Care Team (Late st Contact Info) Description 03/19/2024 1:15 PM EDT Office Visit Urology, [facility] 132 [facility] [place] [address] Isaías Novak MD [address] [place] [address] [place] [address] 04/18/2024 1:15 PM EDT Office Visit Hematology/Oncology [facility] [place] [address] [address] [place] [phone] Elio Queen MD [address] [place] [address] 04/21/2024 2:30 PM EDT Office Visit Urology, [facility] 132 [facility] [place] [address] Isaías Novak MD [address] [place] [address] [place] [address] 05/08/2024 11:00 AM EDT Laboratory Laboratory [facility] [place] [address] [place] [phone] Isis Mel[place] [address] [address] [facility] [place] [address] 05/08/2024 11:45 AM EDT Immunization/Injectio n Hematology/Oncology Treatment, [address] [place] [phone] Nurse, Med [address] [place] [address] 05/20/2024 2:15 PM EDT Office Visit Urology, [facility] [address] [place] [address] Isaías Novak MD [address] [place] [address] [place], [place] [phone] 07/01/2024 4:00 PM EDT Office Visit Family Practice [facility] 132 [place] [address] Dru Fritz MD 132 [place] [address] Health Maintenance Due Date Last Done Comments DISCUSS TOBACCO CESSATION (REFER TO SMARTSET #0068) 1959 COVID-19 Vaccine (#1) 1964 Pneumococcal Vaccine: [...] 12/14/2023, 12/30, 05/15/2022, Additional history exists GFR 09/10/2024 03/11/2024, 06/0 03/2024, 02/15/2024, Additional history exists Depression Screening 03/06/2025 03/06/2024 CKD HGB USE SMARTSET 07925 03/11/202503/11, 03/11/2024, 03/06/2024, Additional history exists CKD PHOS USE SMARTSET 23262 03/11/202503/01, 03/06/2024, 02/14/2024, Additional history exists GARDASIL-HPV IMMUNIZATION SERIES Aged Out No longer eligible based on patient's age to complete this topic Hepatitis B Aged Out No longer eligi ble based on patient's age to complete this topic MENINGOCOCCAL (MENACTRA/MENVEO) Aged Out No longer eligible based on patient's age to complete this topic documented as of this encounter Medical Devices Implanted Type Area Stone Cutter Device Identifier Shelf Expiration Date Model / Serial / Lot Stent Trnscarotid Enroute 7x40 - [id number] Implanted:Qty: 1 on 01/25/2021 by Zeinab Robert MD at [facility] Left: [facility] [id number] 05/31/2023 SR-0740-C S / / [id number] documented as of this encounter Advance Directives [...] patient or by statute hierarchy) Care Teams Pond Worker Relationship Specialty Start Date End Date Dru Fritz MD [address] [place] [address] PCP - General Family Medicine 01/24/21 documented as of this encounter
--- OUTSIDE RECORDS SUMMARY | 2024-03-24 20:14 | External Medical Summary | Summary of Care ---
Author Name Unknown Organization [facility] Address [address] [place] [address] Phone [phone] Care Team Providers Care Clinical Safety Manager Name Role Phone Dru Fritz MD Primary Care Provider [phone] Encounter Details Date Type Department Care Team (Late st Contact Info) Description 03/19/2024 11:00 AM EDT Scheduled Telephone Care Coordination and Integration [address], [place] [id number] Brett Bustillos [facility] Health Senior Sas Developer [address], [place] [phone] Allergies Active Allergy Reactions Criticality Noted Date Comments Amoxicillin-Pot Clavulanate 05/17/20 22 Dizziness and confused documented as of this encounter (statuses as of 03/19/2024) Medications Medication Sig Dispensed Refills Start Date End Date Status [employer] SYSTEM W/DEVICE KITIndications:DM type 2, goal A1c [...] 180 Tablet 02/12/2024 Active Ergocalciferol 1.25 MG (19150 UT) Oral Capsule (Vitamin D2(Drisdol)) Take 1 [...] as of this encounter (statuses as of 03/19/2024) Active Problems Problem Noted Date Diagnosed Date [...] as of this encounter (statuses as of 03/19/2024) Resolved Problems Problem Noted Date Diagnosed Date [...] as of this encounter (statuses as of 03/19/2024) Immunizations No known immunizationsdocumented as of this [...] as of this encounter Progress Notes * Brett Bustillos [facility] Senior Sas Developer - 03/19/2024 10:52 AM EDT Telemedicine visit: No [facility] Senior Sas Developer (CAMERON) documentation: CHW follow up phone call for RNCM. Patient's spouse, Brittaney answered and explained that the patient was currently kind of sleeping. She put the phoneon speaker and they both spoke with me. She explained that the patient isn't doing real great. She said the patient did not do radiation yesterday. She said he is not really eating and they are trying to ensure that he is drinking. Patient reports that he has been pretty tired. Patient's speech was pretty labored and hard to understand at times. He reports that there is blood in his urine. He said his urine is more of a copper color, not really red. Patient states that if he could take a break from radiation he would choose that. He said it just feels like he has been going there forever. Patient's spouse reports that it is about an hour drive to get to radiation. Patient said he asked if he could hold off on his radiation and patient's spousereports that he has 9 treatments left. Brittaney reports that they have a follow up appointment with Urology today. Brittaney said they haven't heard anything about Nephrology and the PCP was to be checking on this for them. She said she is trying to keep up with everything for the patient, but if someone could check on Nephrology, that would be a help. Brittaney said she was wondering about the number of medications the patient is taking. She explained that he takes a lot and it becomes difficult for the patient with the number of medications. She said she was wondering which medications are definitely important for him today and if it is all of them, she wonders if some could come in liquid form, which would make it easier for the patient. CHW will forward this question to the RNCM. Patient reports that his weight is down to around 100 pounds. Brittaney confirmed that the patient is losing weight. Patient and Brittaney agreeable to follow up phone call in 1 week. Chucky Bustillos Community [facility] Worker Lead SACHA Scales [phone] Electronically signed by Brett Bustillos [facility] Health Senior Sas Developer at 03/19/2024 11:16 AM EDT documented in this encounter Plan of Treatment Upcoming Encounters Date Type Department Care Team (Late st Contact Info) Description 03/19/2024 1:15 PM EDT Office Visit Urology, [facility] [address] [place] [address] Isaías Novak MD 27 [facility] [address] [place] [address] 04/18/2024 1:15 PM EDT Office Visit Hematology/Oncology [facility] [place] 200 [facility] [place] [phone] Elio Queen MD [address] [place] [address] 04/21/2024 2:30 PM EDT Office Visit Urology, [facility] 132 [facility] [place] [address] Isaías Novak MD [address] [place] [address] [place] [address] 05/08/2024 11:00 AM EDT Laboratory Laboratory [facility] 200 [facility] [place] [phone] [facility] 200 [facility] [place], [place] [address] 05/08/2024 11:45 AM EDT Immunization/Injectio n Hematology/Oncology Treatment, [place] [address] [place], [place] [phone] Nurse, Med 200 [facility] [place], [place] [address] 05/20/2024 2:15 PM EDT Office Visit Urology, [facility] 132 [facility] [place] [address] Isaías Novak MD [address] [place] [address] [place] [address] 07/01/2024 4:00 PM EDT Office Visit Family Practice [facility] [address] [place] [address] Dru Fritz MD [address] [place] [address] Health Maintenance Due Date Last Done Comments [...] Screening 03/06/2025 03/06/2024 CKD HGB USE SMARTSET 27390 03/11/202503/11, 03/11/2024, 03/06/2024, Additional history exists CKD PHOS USE SMARTSET 96506 03/11/202503/01, 03/06/2024, 02/14/2024, Additional history exists GARDASIL-HPV IMMUNIZATION SERIES Aged Out No longer eligible based on patient's age to complete this topic Hepatitis B Aged Out No longer eligi ble based on patient's age to complete this topic MENINGOCOCCAL (MENACTRA/MENVEO) Aged Out No longer eligible based on patient's age to complete this topic documented as of this encounter Medical Devices Implanted Type Area Marine Propulsion Technician Device Identifier Shelf Expiration Date Model / Serial / Lot Stent Trnscarotid Enroute 7x40 - [id number] Implanted:Qty: 1 on 01/25/2021 by Zeinab Robert MD at [facility] Left: [facility] [id number] 05/31/2023 SR-0740-C S / / [id number] documented as of this encounter Advance Directives * Full Code (Latest Code Status on File) Date Activated Date Inactivated Comments 01/25/2021 10:53 AM 01/26/2021 1:19 PM This order reflects the patients wishes and were consensually agreed upon. Healthcare Agents on File Name Relationship Healthcare Agent Relationship Communication Brittaney Watson Spouse Health Care Re presentative (appointed verbally by patient or by statute hierarchy) Care Teams Clinical Safety Manager Relationship Specialty Start Date End Date Dru Fritz MD [address] [place] [address] PCP - General Family Medicine 01/24/21 documented as of this encounter
--- OUTSIDE RECORDS SUMMARY | 2024-03-24 20:14 | External Medical Summary | Summary of Care ---
Author Name Unknown Organization [facility] Address [address] [place] [address] Phone [phone] Care Team Providers Care Financial Analyst Name Role Phone Dru Fritz MD Primary Care Provider [phone] Encounter Details Date Type Department Care Team (Late st Contact Info) Description 03/11/2024 Telephone Urology, [facility] 132 [facility] [place] [address] Isaías Novak MD 27 [facility] [place] [address] [place] [address] Allergies Active Allergy Reactions Criticality Noted Date Comments Amoxicillin-Pot Clavulanate 05/17/20 22 Dizziness and confused documented as of this encounter (statuses as of 03/12/2024) Medications Medication Sig Dispensed Refills Start Date End Date Status [employer] SYSTEM W/DEVICE KITIndications:DM type 2, goal A1c [...] 180 Tablet 02/12/2024 Active Ergocalciferol 1.25 MG (82711 UT) Oral Capsule (Vitamin D2(Drisdol)) Take 1 [...] as of this encounter (statuses as of 03/12/2024) Active Problems Problem Noted Date Diagnosed Date [...] as of this encounter (statuses as of 03/12/2024) Resolved Problems Problem Noted Date Diagnosed Date [...] as of this encounter (statuses as of 03/12/2024) Immunizations No known immunizationsdocumented as of this [...] encounter Miscellaneous Notes * Telephone Encounter - Iva Mcdermott OSA - 03/12/2024 9:39 AM EDT Pt is scheduled for March 19. I spoke to Pt's and she is aware of appointment. * Telephone Encounter - Isaías Novak MD - 03/11/2024 9:45 AM EDT Keep appointment in March, to schedule patient for next available visit to review his interval care. Would request interval imaging studies be forwarded into PACS. Thanks, HM * Telephone Encounter - Dior Leger LPN - 03/11/2024 9:[address] Novak Spoke with pt's spouse. States patient was admitted to [facility] late January, had bilat ureteral stents placed 02/18/24. Thiago Frias records scanned. says patient does not have catheter in place and has no urinary complaints at this time. I have him scheduled to see you 04/21/24 to discuss stent exchange. Do you want him in sooner for hospital follow up? Thank you Rupa documented in this encounter Plan of Treatment Upcoming Encounters Date Type Department Care Team (Late st Contact Info) Description 03/19/2024 1:15 PM EDT Office Visit Urology, [facility] 132 [facility] [place] [address] Isaías Novak MD 27 [facility] [address] [place] [address] 04/18/2024 1:15 PM EDT Office Visit Hematology/Oncology [facility] 200 [facility] [place], [place] [phone] Elio Queen MD 200 [facility], [place] [address] 04/21/2024 2:30 PM EDT Office Visit Urology, [facility] 132 [facility] [place] [address] Isaías Novak MD [address] [place] [address] [place] [address] 05/08/2024 11:00 AM EDT Laboratory Laboratory [facility] 200 [facility] [place], [place] [phone] [facility] 200 [facility] [place], [place] [address] 05/08/2024 11:45 AM EDT Immunization/Injectio n Hematology/Oncology Treatment, [place] [address] [facility] [place], [place] [phone] Nurse, Med 200 [facility] [place], [place] [address] 05/20/2024 2:15 PM EDT Office Visit [facility], [facility] [place] [address] Isaías Novak MD [address] [place] [address] [place] [address] 07/01/2024 4:00 PM EDT Office Visit Family Practice [facility] [address] [address] Dru Fritz MD [address] [place] [address] Health Maintenance Due Date Last Done Comments DISCUSS TOBACCO CESSATION (REFER TO SMARTSET #3294) 1960 COVID-19 Vaccine (#1) 1965 Pneumococcal Vaccine: [...] 05/15/2022, Additional history exists GFR 09/10/2024 03/11/2024, 06/03/2024, 02/15/2024, Additional history exists Depression Screening 03/06/2025 03/06/2024 CKD HGB USE SMARTSET 02408 03/11/202503/11, 03/11/2024, 03/06/2024, Additional history exists CKD PHOS USE SMARTSET 67233 03/11/202503/01, 03/06/2024, 02/14/2024, Additional history exists GARDASIL-HPV IMMUNIZATION SERIES Aged Out No longer eligible based on patient's age to complete this topic Hepatitis B Aged Out No longer eligi ble based on patient's age to complete this topic MENINGOCOCCAL (MENACTRA/MENVEO) Aged Out No longer eligible based on patient's age to complete this topic documented as of this encounter Medical Devices Implanted Type Area Home Health Occupational Therapist Device Identifier Shelf Expiration Date Model / Serial / Lot Stent Trnscarotid Enroute 7x40 - [id number] Implanted:Qty: 1 on 01/25/2021 by Zeinab Robert MD at [facility] Left: Carotid [facility] [id number] 05/31/2023 SR-0740-C S / / [id number] documented as of this encounter Advance Directives [...] patient or by statute hierarchy) Care Teams Financial Analyst Relationship Specialty Start Date End Date Dru Fritz MD [address] [place] [address] PCP - General Family Medicine 01/24/21 documented as of this encounter
--- OUTSIDE RECORDS SUMMARY | 2024-03-24 20:14 | External Medical Summary | Summary of Care ---
Author Name Unknown Organization [facility] Address [address] [place] [address] Phone [phone] Care Team Providers Care Counter Caser Name Role Phone Dru Fritz MD Primary Care Provider [phone] Reason for Visit * Reason Onset Date Comments Test Results Lab 03/10/2024 Encounter Details Date Type Department Care Team (Late st Contact Info) Description 03/10/2024 Telephone Hematology/Oncology [facility] [address] [place] [address] Pastora Aguilar CRNP [address] [place] [address] Test Results Lab (//) Allergies Active Allergy Reactions Criticality Noted Date Comments Amoxicillin-Pot Clavulanate 05/17/20 22 Dizziness and confused documented as of this encounter (statuses as of 03/10/2024) Medications Medication Sig Dispensed Refills Start Date End Date Status [employer] SYSTEM W/DEVICE KITIndications:DM type 2, goal A1c [...] DAY 90 Tablet 3 08/27/2023 08/26/2024 Active Additional Information Patient not taking.Reported on 03/07/2024 Atorvastatin Calcium 80 MG Oral Tablet (Lipitor)Indication [...] 180 Tablet 02/12/2024 Active Ergocalciferol 1.25 MG (61222 UT) Oral Capsule (Vitamin D2(Drisdol)) Take 1 [...] as of this encounter (statuses as of 03/10/2024) Active Problems Problem Noted Date Diagnosed Date [...] as of this encounter (statuses as of 03/10/2024) Resolved Problems Problem Noted Date Diagnosed Date [...] as of this encounter (statuses as of 03/10/2024) Immunizations No known immunizationsdocumented as of this [...] encounter Miscellaneous Notes * Addendum Note - Jesus Alberto Paredes LPN - 03/10/2024 3:14 PM EDTAddended by: JESUS ALBERTO PAREDES on: 03/10/2024 03:14 PM Modules accepted: Orders * Telephone Encounter - Jesus Alberto Paredes LPN - 03/10/2024 3:12 PM EDT Scheduling: Patient will be stopping in tomorrow, 03/11 to schedule his follow up appointment with Dr. Queen. See DANIELLE Leo message below: Please schedule patient for a 4-6 week follow up with Dr. Queen, he will also need lab work prior to the appointment, a cmp and phos. (Orders in chart) * Telephone Encounter - Jesus Alberto Paredes LPN - 03/10/2024 3:07 PM EDT Called and spoke with patient informed patient of detailed result message from provider below. Patient verbalized understanding, denies any questions at this time. Patient states he is still taking the supplements without issue. Patient agreeable to making a lab appointment tomorrow, 03/11/2024 at 2:20 pm at for his cbcd and bmp. Patient refused offer to schedule 4-6 week follow up at this time stating he will make it when he stops in tomorrow for his lab results. Patient denies any further needs or concerns. * Telephone Encounter - Pastora Aguilar MEDICAL ASSISTANT FLOAT - 03/10/2024 1:17 PM EDT Results for orders placed or performed in visit on 03/06/24 PSA Result Value Ref Range PSA 481.50 (H) <4.10 ng/mL COMPREHENSIVE METABOLIC PANEL Result Value Ref Range BUN 16 6 - 20 mg/dL Creatinine 1.1 0.6 - 1.2 mg/dL Estimated Glomerular Filtration Rate 72 >=60 mL/min Sodium 140 135 - 146 mmol/L Potassium 3.3 (L) 3.5 - 5.1 mmol/L Chloride 104 98 - 107 mmol/L CO2 20 (L) 22 - 32 mmol/L Anion Gap 16 (H) 7 - 15 mmol/L Glucose 125 (H) 70 - 120 mg/dL Albumin 3.1 (L) 3.8 - 5.0 g/dL AST 53 (H) 10 - 50 U/L Alkaline Phosphatase 515 (H) 35 - 130 U/L Bilirubin, Total 0.5 <=1.2 mg/dL Calcium 7.6 (L) 8.4 - 10.2 mg/dL Protein 6.4 6.0 - 8.3 g/dL ALT 15 10 - 50 U/L PHOSPHORUS Result Value Ref Range Phosphorus 2.1 (L) 2.5 - 4.8 mg/dL IRON SCREEN, INCLUDING TIBC Result Value Ref Range Iron 54 45 - 176 ug/dL Iron Binding Capacity 107 (L) 250 - 425 ug/dL Transferrin Saturation Percent 50 15 - 55 % FERRITIN Result Value Ref Range Ferritin 3,094 (H) 30 - 400 ng/mL VITAMIN B12 Result Value Ref Range Vitamin B12 596 232 - 1,245 pg/mL FOLIC ACID Result Value Ref Range Folic Acid 5.8 >4.5 ng/mL CBC Result Value Ref Range WBC 5.31 4.00 - 10.80 K/uL RBC 2.94 4.50 - 5.25 M/uL HGB 8.3 (L) 14.0 - 16.8 g/dL HCT 26.7 (L) 40.0 - 48.4 % MCV 90.8 82.0 - 99.5 fL MCH 28.2 27.0 - 34.0 pg MCHC 31.1 32.0 - 36.0 g/dL RDW 18.5 11.5 - 15.5 % PLT 59 (L) 140 - 400 K/uL MPV 9.4 6.6 - 11.1 fL DIFFERENTIAL, TECHNOLOGIST REVIEW Result Value Ref Range WBC 5.31 4.00 - 10.80 K/uL Neutrophils % 74.0 40.0 - 75.0 % Lymphocytes % 16.0 (L) 18.0 - 42.0 % Monocytes % 7.0 1.0 - 11.0 % Metamyelocytes % 3.0 (H) <=0.0 % Absolute Neutrophils 3.93 1.80 - 7.70 K/uL Absolute Lymphocytes 0.85 (L) 1.00 - 4.80 K/uL Absolute Monocytes 0.37 0.00 - 1.10 K/uL Absolute Metamyelocytes 0.16 (H) <=0.00 K/uL nRBCs *Note: Due to a large number of results and/or encounters for the requested time period, some results have not been displayed. A complete set of results can be found in Results Review. Hgb and platelet count stable since discharge. Renal function WNL. Phos, potassium and calcium all remain mildly low. Please ensure patient is taking all supplement as prescribed: Tums 1500 mg TID. K phos 500 mg BID. Calcitriol 1 mcg daily. Patient due for repeat BMP this week. Would recommend weekly CBCd to monitor anemia. Does not appear patient has follow up appointment with Dr. Queen scheduled. Had recommended 4-6 week follow up with physician. Repeat CMP and phos at that time. documented in this encounter Plan of Treatment Upcoming Encounters Date Type Department Care Team (Late st Contact Info) Description 03/11/2024 2:20 PM EDT Laboratory Laboratory [facility] Saritha [place] [address] [place] [phone] Isis Melara [address] [facility] [place] [address] 05/08/2024 11:00 AM EDT Laboratory Laboratory Valentín Melara [place] [address] [place] [phone] Saritha Lab [place] [address] [facility] [place] [address] 05/08/2024 11:45 AM EDT Immunization/Injectio n Hematology/Oncology Treatment, [place] [address] [place] [address] Nurse, Med [address] [place] [address] 05/20/2024 2:15 PM EDT Office Visit Urology, [facility] [place] [place] [address] Isaías Novak MD [address] [place] [address] [place] [address] 07/01/2024 4:00 PM EDT Office Visit Family Practice [facility] 132 [facility] [place] [address] Dru Fritz MD [facility] [address] Scheduled Orders Name Type Priority Associated Diagnoses Orde r Schedule BASIC METABOLIC PANEL Lab Routine Prostate cancer metastatic to multiple sites (HCC) Metastasis to bone (HCC) Expected: 03/10/2024 (Approximate), Expires: 03/10/2025 Health Maintenance Due Date Last Done Comments DISCUSS TOBACCO CESSATION (REFER TO SMARTSET #0452) 1960 COVID-19 Vaccine (#1) 1965 Pneumococcal Vaccine: [...] 12/14/2023, 12/30, 05/15/2022, Additional history exists GFR 09/05/2024 03/06/2024, 01/29, 02/14/2024, Additional history exists CKD HGB USE SMARTSET 50424 03/06/202503/06, 03/06/2024, 02/15/2024, Additional history exists CKD PHOS USE SMARTSET 53476 03/06/2025 06/0 03/2024, 02/14/2024, 01/24/2024, Additional history exists Depression Screening 03/06/2025 03/06/2024 GARDASIL-HPV IMMUNIZATION SERIES Aged Out No longer eligible based on patient's age to complete this topic Hepatitis B Aged Out No longer eligi ble based on patient's age to complete this topic MENINGOCOCCAL (MENACTRA/MENVEO) Aged Out No longer eligible based on patient's age to complete this topic documented as of this encounter Medical Devices Implanted Type Area Associate Web Developer Device Identifier Shelf Expiration Date Model / Serial / Lot Stent Trnscarotid Enroute 7x40 - [id number] Implanted:Qty: 1 on 01/25/2021 by Zeinab Robert MD at [facility] Left: [facility] [id number] 05/31/2023 SR-0740-C S / / [id number] documented as of this encounter Visit Diagnoses Diagnosis Prostate cancer metastatic to multiple sites (HCC)- Primary Malignant neoplasm of prostate Metastasis to bone (HCC) Secondary malignant neoplasm of bone and bone marrow documented in this encounter Advance Directives * Full Code (Latest Code Status on File) Date Activated Date Inactivated Comments 01/25/2021 10:53 AM 01/26/2021 1:19 PM This order reflects the patients wishes and were consensually agreed upon. Healthcare Agents on File Name Relationship Healthcare Agent Relationship Communication Brittaney Chaudhari Spouse Health Care Re presentative (appointed verbally by patient or by statute hierarchy) Care Teams Counter Caser Relationship Specialty Start Date End Date Dru Fritz MD [address] [place] [address] PCP - General Family Medicine 01/24/21 documented as of this encounter
--- OUTSIDE RECORDS SUMMARY | 2024-03-24 20:14 | External Medical Summary ---
Author Name Unknown Address Unknown Organization K09:[facility] [place] [place] [address] Laboratory Report Ordering Provider Test Date Status PATRICE QUINONES 03/11/2024 14:33:27 Final Observation Date Value Abnormality Reference (Units ) Status Phosphate 03/11/2024 14:33:27 2.4 Below low normal 2.5 -4.8 (mg/dL) Final Performing Location [facility] [place] [address]
--- OUTSIDE RECORDS SUMMARY | 2024-03-24 20:14 | External Medical Summary ---
Author Name Unknown Address Unknown Organization K01:[facility] [address] [place] [address] Laboratory Report Ordering Provider Test Date Status ADILIAKHUSHBU 03/11/2024 14:33:27 Final Observation Date Value Abnormality Reference (Units ) Status Ferritin 03/11/2024 14:33:27 3677 Above high normal 30 -400 (ng/mL) Final Performing Location [facility] [address] [place] [address]
--- OUTSIDE RECORDS SUMMARY | 2024-03-24 20:14 | External Medical Summary ---
Author Name Unknown Address Unknown Organization [id number]:[facility] [address] [place] [address] Laboratory Report Ordering Provider Test Date Status ADILIAKHUSHBU 03/11/2024 14:33:27 Final Observation Date Value Abnormality Reference (Units ) Status PSA 03/11/2024 14:33:27 421.00 Above high normal <4 .10 (ng/mL) Final Performing Location [facility] - [address] [place] [address]
--- OUTSIDE RECORDS SUMMARY | 2024-03-24 20:14 | External Medical Summary | Summary of Care ---
Author Name Unknown Organization [facility] Address [address] [place] [facility] [place] [address] Phone [phone] Care Team Providers Care Resident Surgeon Name Role Phone Nima Norton MD Primary Care Provider [phone] [phone] Reason for Visit * Reason Comments Medication Refill Encounter Details Date Type Department Care Team (Late st Contact Info) Description 03/10/2024 Refill Family Practice [facility] [address] [place] [address] Nima Norton MD [address] [place] [address] Allergies Active Allergy Reactions Criticality Noted Date Comments Amoxicillin-Pot Clavulanate 05/17/20 22 Dizziness and confused documented as of this encounter (statuses as of 03/10/2024) Medications Medication Sig Dispensed Refills Start Date End Date Status [employer] SYSTEM W/DEVICE KITIndications:DM type 2, goal A1c [...] Kit 01/12/2020 Active Acetaminophen 500 MG Oral TabletIndications: Takes twice daily. Take 1 Tablet by mouth every 6 hours as needed. Active Xgeva 120 MG/1.7ML Subcutaneous Solution (Denosumab) Inject 120 mg under the skin Every Month. Active Entresto 24-26 MG Oral Tablet (sacubitril-valsar abdullahi 24-26 mg per tab)Indications:Es sential hypertension with goal blood pressure less than 140/90 TAKE ONE TABLET BY MOUTH TWICE A DAY 180 Tablet 3 05/03/2023 4 Active K-Phos 500 MG Oral Tablet [...] DAY 90 Tablet 3 08/27/2023 4 Active Additional Information Patient not taking.Reported on 03/07/2024 Atorvastatin Calcium 80 MG Oral Tablet (Lipitor)Indicatio [...] 09/13/2023 Active linaGLIPtin 5 MG Oral Tablet (Tradjenta)Indicat ions:Type 2 diabetes mellitus with diabetic neuropathy, without long-term current use of insulin (HCC) TAKE ONE TABLET BY MOUTH EVERY MORNING 90 Tablet 1 12/10/2023 5 Active PARoxetine HCl 10 MG Oral Tablet (Paxil) Take 1 Tablet by mouth in the morning. 90 Tablet 3 12/26/2023 Active Additional Information Patient not taking.Reported on 03/06/2024 Clopidogrel Bisulfate 75 MG Oral Tablet (pLAVix) TAKE ONE TABLET BY MOUTH IN THE MORNING 30 Tablet 5 01/06/2024 5 Active Additional Information Patient not taking.Reported on 03/06/2024 Morphine Sulfate 15 MG Oral Tablet (Msir)Indications: [...] 180 Tablet 02/12/2024 Active Ergocalciferol 1.25 MG (70643 UT) Oral Capsule (Vitamin D2(Drisdol)) Take 1 [...] three times daily 30 Tablet 03/10/2024 Active busPIRone HCl 5 MG Oral Tablet (Buspar) Take one tablet by mouth three times daily 30 Tablet 02/29/2024 4 Discontinue d(Refill) documented as of this [...] Telephone Encounter - Nima Norton MD - 03/10/2024 1:21 PM EDTSigned Prescriptions: Disp Refills busPIRone HCl 5 MG Oral Tablet (Buspar) 30 Tab*0 Sig: Take one tablet by mouth three times dailyAuthorizing Provider: NIMA NORTON documented in this encounter Plan of Treatment Upcoming Encounters Date Type Department Care Team (Late st Contact Info) Description 05/08/2024 11:00 AM EDT Laboratory Laboratory [facility] [address] [place] [address] [address] [facility] [address] [place] [address] 05/08/2024 11:45 AM EDT Immunization/Injectio n Hematology/Oncology Treatment, [place] [address] [place] [address] Nurse, Med [address] [place] [address] 05/20/2024 2:15 PM EDT Office Visit Urology, [facility] [address] [place] [address] Isaías Novak MD [address] [place] [address] 07/01/2024 4:00 PM EDT Office Visit Family [facility] [address] [place] [address] Nima Norton MD [address] [place] [address] Health Maintenance Due Date Last Done Comments DISCUSS TOBACCO CESSATION (REFER TO SMARTSET #2841) 1959 COVID-19 Vaccine (#1) 1964 Pneumococcal Vaccine: [...] Additional history exists CKD HGB USE SMARTSET 22112 03/06/202503/06, 03/06/2024, 02/15/2024, Additional history exists CKD PHOS USE SMARTSET 53119 03/06/2025 06/0 03/2024, 02/14/2024, 01/24/2024, Additional history [...] this encounter Medical Devices Implanted Type Area Bar Tacker Sewing Machine Device Identifier Shelf Expiration Date Model / Serial / Lot Stent Trnscarotid Enroute 7x40 - [id number] Implanted:Qty: 1 on 01/25/2021 by Zeinab Robert MD at OR [facility] Left: [facility] [id number] 05/31/2023 SR-0740-C S / / [id number] documented as of this encounter Advance Directives [...] patient or by statute hierarchy) Care Teams Resident Surgeon Relationship Specialty Start Date End Date Nima Norton MD [address] [place] [address] PCP - General Family Medicine 01/24/21 documented as of this encounter
--- OUTSIDE RECORDS SUMMARY | 2024-03-24 20:14 | External Medical Summary | Summary of Care ---
Author Name Unknown Organization [facility] Address [address] [place] [address] Phone [phone] Care Team Providers Care Underwriting Support Manager Name Role Phone Dru Fritz MD Primary Care Provider [phone] [phone] Reason for Visit * Reason Comments Outpatient Testing Encounter Details Date Type Department Care Team (Late st Contact Info) Description 03/11/2024 2:20 PM EDT Laboratory Laboratory [facility] [place] [address] [place] [address] [facility] [address] [place] [address] Gross hematuria; Prostate cancer metastatic to multiple sites (HCC); Metastasis to bone (HCC); HFrEF (heart failure with reduced ejection fraction) ([facility]); Anemia, unspecified type Allergies Active Allergy Reactions Criticality Noted Date Comments Amoxicillin-Pot Clavulanate 05/17/20 22 Dizziness and confused documented as of this encounter (statuses as of 03/11/2024) Medications Medication Sig Dispensed Refills Start Date End Date Status NovaSys SYSTEM W/DEVICE KITIndications:DM type 2, goal A1c [...] 180 Tablet 02/12/2024 Active Ergocalciferol 1.25 MG (92764 UT) Oral Capsule (Vitamin D2(Drisdol)) Take 1 [...] as of this encounter (statuses as of 03/11/2024) Active Problems Problem Noted Date Diagnosed Date [...] as of this encounter (statuses as of 03/11/2024) Resolved Problems Problem Noted Date Diagnosed Date [...] as of this encounter (statuses as of 03/11/2024) Immunizations No known immunizationsdocumented as of this [...] Care Team (Late st Contact Info) Description 04/18/2024 1:15 PM EDT Office Visit Hematology/Oncology [address] [place] [address] [place] [phone] Elio Queen MD [address] [place] [address] 04/21/2024 2:30 PM EDT [facility] [address] [facility] [place] [address] Isaías Novak MD [address] [address] [place] [address] 05/08/2024 11:00 AM EDT Laboratory Laboratory [facility] [place] [address] [place] [address] [facility] [place] [address] [address] [facility] [place] [address] 05/08/2024 11:45 AM EDT Immunization/Injectio n Hematology/Oncology Treatment, [place] [address] [place] [phone] Nurse, Med [address] [place] [address] 05/20/2024 2:15 PM EDT Office Visit Urology [facility] [address] [facility] [place] [id number] Isaías Novak MD [address] [place] [address] [place] [address] 07/01/2024 4:00 PM EDT Office Visit Family Practice [facility] [place] [address] Dru Fritz MD [address] [facility] [place] [address] Pending Results Name Type Priority Associated Diagnoses Date /Time URINALYSIS, REFLEX TO MICROSCOPIC Lab Routine Gross hematuria 03/11/2024 2:29 PM EDT CBC WITH WBC DIFFERENTIAL Lab STAT Prostate cancer metastatic to multiple sites (HCC) 03/11/2024 2:33 PM EDT COMPREHENSIVE METABOLIC PANEL Lab STAT Prostate cancer metastatic to multiple sites (HCC) 03/11/2024 2:33 PM EDT PHOSPHORUS Lab STAT Metastasis to bone (HCC) 03/11/2024 2:33 PM EDT IRON SCREEN, INCLUDING TIBC Lab STAT Anemia, unspecified type Prostate cancer metastatic to multiple sites (HCC) Metastasis to bone (HCC) 03/11/2024 2:33 PM EDT FERRITIN Lab STAT Anemia, unspecified type Prostate cancer metastatic to multiple sites (HCC) Metastasis to bone (HCC) 03/11/2024 2:33 PM EDT PSA Lab STAT Anemia, unspecified type Prostate cancer metastatic to multiple sites (HCC) Metastasis to bone (HCC) 03/11/2024 2:33 PM EDT CBC Lab STAT Prostate cancer metastatic to multiple sites (HCC) 03/11/2024 2:33 PM EDT DIFFERENTIAL, AUTOMATED Lab STAT Prostate cancer metastatic to multiple sites (HCC) 03/11/2024 2:33 PM EDT MICROSCOPIC EXAM, URINE Lab Routine Gross hematuria 03/11/2024 2:29 PM EDT Health Maintenance Due Date Last Done Comments DISCUSS TOBACCO CESSATION (REFER TO SMARTSET #8004) 1960 COVID-19 Vaccine (#1) 1964 Pneumococcal Vaccine: [...] Additional history exists CKD HGB USE SMARTSET 48012 03/06/202503/06, 03/06/2024, 02/15/2024, Additional history exists CKD PHOS USE SMARTSET 42282 03/06/2025 06/0 03/2024, 02/14/2024, 01/24/2024, Additional history [...] this encounter Medical Devices Implanted Type Area Kaiako Kohanga Reo Device Identifier Shelf Expiration Date Model / Serial / Lot Stent Trnscarotid Enroute 7x40 - [id number] Implanted:Qty: 1 on 01/25/2021 by Zeinab Robert MD at [facility] Left: [facility] [id number] 05/31/2023 SR-0740-C S / / [id number] documented as of this encounter Visit Diagnoses Diagnosis Gross hematuria Prostate cancer metastatic to multiple sites (HCC) Malignant neoplasm of prostate Metastasis to bone (HCC) Secondary malignant neoplasm of bone and bone marrow HFrEF (heart failure with reduced ejection fraction) (HCC) Anemia, unspecified type documented in this encounter Advance Directives * Full Code (Latest Code Status on File) Date Activated Date Inactivated Comments 01/25/2021 10:53 AM 01/26/2021 1:19 PM This order reflects the patients wishes and were consensually agreed upon. Healthcare Agents on File Name Relationship Healthcare Agent Relationship Communication Brittaney Chaudhari Spouse Health Care Re presentative (appointed verbally by patient or by statute hierarchy) Care Teams Underwriting Support Manager Relationship Specialty Start Date End Date Dru Fritz MD [address] [place] [address] PCP - General Family Medicine 01/24/21 documented as of this encounter
--- OUTSIDE RECORDS SUMMARY | 2024-03-24 20:14 | External Medical Summary ---
Author Name Unknown Address Unknown Organization [facility] [address] [place] [address] Laboratory Report Ordering Provider Test Date Status PATRICE QUINONES 03/11/2024 14:33:27 Final Observation Date Value Abnormality Reference (Units ) Status BUN 03/11/2024 14:33:27 23 Above high normal 6-20 (mg/dL) Final Creatinine 03/11/2024 14:33:27 1.2 0.6-1.2 (mg/dL) Final Glomerular filtration rate/1.73 sq M.predicted [Volume Rate/Area] in Serum, Plasma or Blood by Creatinine-based formula (CKD-EPI) 03/11/2024 14:33:27 71 >=60 (mL/min) Final eGFR is calculated based on the CKD-EPI 2020 equation Sodium 03/11/2024 14:33:27 140 135-146 (m mol/L) Final Potassium 03/11/2024 14:33:27 4.0 3.5-5.1 (m mol/L) Final Cl 03/11/2024 14:33:27 105 98-107 (mm ol/L) Final CO2 03/11/2024 14:33:27 20 Below low normal 22- 32 (mmol/L) Final Anion gap 03/11/2024 14:33:27 15 7-15 (mmol /L) Final Glucose 03/11/2024 14:33:27 158 Above high normal 70 -120 (mg/dL) Final Albumin 03/11/2024 14:33:27 3.3 Below low normal 3.8 -5.0 (g/dL) Final AST (Aspartate aminotransferase) 03/11/2024 14:33:27 44 10-50 (U/L) Fin al Alk Phos 03/11/2024 14:33:27 707 Above high normal 35 -130 (U/L) Final Bilirubin, Total 03/11/2024 14:33:27 0.5 <=1 .2 (mg/dL) Final Calcium 03/11/2024 14:33:27 8.2 Below low normal 8.4 -10.2 (mg/dL) Final Protein 03/11/2024 14:33:27 6.8 6.0-8.3 (g /dL) Final ALT (Alanine aminotransferase) 03/11/2024 14:33:27 19 10-50 (U/L) Hilton harrell Performing Location [facility] [address] [place] [address]
--- OUTSIDE RECORDS SUMMARY | 2024-03-24 20:14 | External Medical Summary ---
Author Name Unknown Address Unknown Organization [facility] [address] [place] [address] Laboratory Report Ordering Provider Test Date Status CIERRA HERRING 03/11/2024 14:29:55 Final Observation Date Value Abnormality Reference (Units ) Status Color of Urine by Auto 03/11/2024 14:29:55 Red Abnormal Light Yellow, Yellow, Dark Yellow Final Clarity, Urine 03/11/2024 14:29:55 Slightly Cloudy Abnormal Clear Final Glucose [Mass/volume] in Urine by Automated test strip 03/11/2024 14:29:55 >=1000 Abnormal Negative (mg/dL) Final Bilirubin.total [Presence] in Urine by Automated test strip 03/11/2024 14:29:55 Small Abnormal Negative Final Ketones [Mass/volume] in Urine by Automated test strip 03/11/2024 14:29:55 Trace Abnormal Negative (mg/dL) Final Specific gravity, Urine 03/11/2024 14:29:55 1.015 1.003-1.030 Final Hemoglobin [Presence] in Urine by Automated test strip 03/11/2024 14:29:55 Large Abnormal Negative Final pH, Urine 03/11/2024 14:29:55 6.0 5.0-7.5 (Units) Final Protein [Mass/volume] in Urine by Automated test strip 03/11/2024 14:29:55 100 Abnormal Negative (mg/dL) Final Urobilinogen [Mass/volume] in Urine by Automated test strip 03/11/2024 14:29:55 0.2 0.2, 1.0 (mg/dL) Final Nitrite [Presence] in Urine by Automated test strip 03/11/2024 14:29:55 Negative Negative Final Leukocyte esterase [Presence] in Urine by Automated test strip 03/11/2024 14:29:55 Negative Negative Final Performing Location [facility] [address] [place] [address]
--- OUTSIDE RECORDS SUMMARY | 2024-03-24 20:14 | External Medical Summary ---
Author Name Unknown Address Unknown Organization [facility] [address] [address] Laboratory Report Ordering Provider Test Date Status NIMACIERRA 03/11/2024 14:29:55 Final Observation Date Value Abnormality Reference (Units ) Status RBC, Urine 03/11/2024 14:29:55 50+ Abnormal 0-2 (/HPF) Final WBC, Urine 03/11/2024 14:29:55 0-2 0-2 (/HPF) Final Bacteria [#/area] in Urine sediment by Microscopy high power field 03/11/2024 14:29:55 0-25 0-25 (/HPF) Final Performing Location [facility] [address] [address]
--- OUTSIDE RECORDS SUMMARY | 2024-03-24 20:14 | External Medical Summary | Summary of Care ---
Author Name Unknown Organization [facility] Address [address] [place] [address] Phone [phone] Care Team Providers Care Inbound Telemarketer Name Role Phone Dru Fritz MD Primary Care Provider [phone] Encounter Details Date Type Department Care Team (Late st Contact Info) Description 03/10/2024 Telephone Hematology/Oncology [facility] [address] [place] [address] Pastora Aguilar CRNP [address] [place] [address] Allergies Active Allergy Reactions Criticality Noted Date Comments Amoxicillin-Pot Clavulanate 05/17/20 22 Dizziness and confused documented as of this encounter (statuses as of 03/10/2024) Medications Medication Sig Dispensed Refills Start Date End Date Status [employer] SYSTEM W/DEVICE KITIndications:DM type 2, goal A1c [...] 180 Tablet 02/12/2024 Active Ergocalciferol 1.25 MG (41125 UT) Oral Capsule (Vitamin D2(Drisdol)) Take 1 [...] encounter Miscellaneous Notes * Telephone Encounter - Pastora AguilarDANIELLE - 03/10/2024 1:17 PM EDT Results for [...] Description 05/08/2024 11:00 AM EDT Laboratory Laboratory [facility] [address] [place] [phone] Park, Lab [address]enery [address] [place] [address] 05/08/2024 11:45 AM EDT Immunization/Injectio n Hematology/Oncology Treatment, [place] [address] [place] [phone] Nurse, Med [address] [place] [address] 05/20/2024 2:15 PM EDT Office Visit Urology, [facility] [address] [place] [address] Isaías Novak [facility] [address] [facility] [address] [place] [address] 07/01/2024 4:00 PM EDT Office Visit Family Practice [facility] [address] [place] [address] Dru Fritz MD [address] [place] [address] Health Maintenance Due Date Last Done Comments DISCUSS TOBACCO CESSATION (REFER TO SMARTSET #7610) 1960 COVID-19 Vaccine (#1) 1965 Pneumococcal Vaccine: [...] Additional history exists CKD HGB USE SMARTSET 69123 03/06/202503/06, 03/06/2024, 02/15/2024, Additional history exists CKD PHOS USE SMARTSET 85853 03/06/2025 06/0 03/2024, 02/14/2024, 01/24/2024, Additional history [...] this encounter Medical Devices Implanted Type Area Ampoule Filler Device Identifier Shelf Expiration Date Model / Serial / Lot Stent Trnscarotid Enroute 7x40 - [id number] Implanted:Qty: 1 on 01/25/2021 by Zeinab Robert MD at [facility] Left: [facility] [id number] 05/31/2023 SR-0740-C S / / [id number] documented as of this encounter Advance Directives [...] patient or by statute hierarchy) Care Teams Inbound Telemarketer Relationship Specialty Start Date End Date Dru Fritz MD [address] [place] [address] PCP - General Family Medicine 01/24/21 documented as of this encounter
--- OUTSIDE RECORDS SUMMARY | 2024-03-24 20:14 | External Medical Summary | Summary of Care ---
Author Name Unknown Organization [facility] Address [address] [place] [address] Phone [phone] Care Team Providers Care Psychometric Examiner Name Role Phone Dru Fritz MD Primary Care Provider [phone] [phone] Reason for Visit * Reason Onset Date Comments Test Results Lab 03/10/2024 Encounter Details Date Type Department Care Team (Late st Contact Info) Description 03/10/2024 Telephone Hematology/Oncology [facility] [address] [place] [address] Pastora Aguilar CRNP [address] [place] [address] Test Results Lab (//) Allergies Active Allergy Reactions Criticality Noted Date Comments Amoxicillin-Pot Clavulanate 05/17/20 22 Dizziness and confused documented as of this encounter (statuses as of 03/11/2024) Medications Medication Sig Dispensed Refills Start Date End Date Status ModuleQ SYSTEM W/DEVICE KITIndications:DM type 2, goal A1c [...] 180 Tablet 02/12/2024 Active Ergocalciferol 1.25 MG (86121 UT) Oral Capsule (Vitamin D2(Drisdol)) Take 1 [...] encounter Miscellaneous Notes * Telephone Encounter - Diane Edmond OSA - 03/11/2024 3:30 PM EDT Pt is aware of apt and so is * Addendum Note - Jesus Alberto Paredes [...] or concerns. * Telephone Encounter - Pastora AguilarDANIELLE kelley - 03/10/2024 1:17 PM EDT Results for [...] 04/18/2024 1:15 PM EDT Office Visit Hematology/Oncology [facility] [address] [facility] [place] [phone] Elio Queen MD [address] [facility] [place] [address] 04/21/2024 2:30 PM EDT Office Visit Urology, [facility] [address] [place] [address] Isaías Novak MD [address] [place] [address] [place] [id number] 05/08/2024 11:00 AM EDT Laboratory Laboratory [facility] [address] [place] [phone] [place], [facility] [address] [place] [address] 05/08/2024 11:45 AM EDT Immunization/Injectio n Hematology/Oncology Treatment, [place] [address] [place] [address] Nurse, Med [address] [place] [address] 05/20/2024 2:15 PM EDT Office Visit Urology, [facility] [address] [place] [address] Isaías Novak MD [address] [place] [address] [place] [address] 07/01/2024 4:00 PM EDT Office Visit Family Practice [facility] [address] [place] [address] Dru Fritz MD [address] [place] [address] Health Maintenance Due Date Last Done Comments DISCUSS TOBACCO CESSATION (REFER TO SMARTSET #1184) 1960 COVID-19 Vaccine (#1) 1965 Pneumococcal Vaccine: [...] 03/11/2024, 06/0 03/2024, 02/15/2024, Additional history exists CKD HGB USE SMARTSET 68240 03/06/202503/06, 03/06/2024, 02/15/2024, Additional history exists CKD PHOS USE SMARTSET 88158 03/06/202503/01, 03/06/2024, 02/14/2024, Additional history exists Depression Screening 03/06/2025 03/06/2024 [...] this encounter Medical Devices Implanted Type Area Locomotive Inspector Device Identifier Shelf Expiration Date Model / Serial / Lot Stent Trnscarotid Enroute 7x40 - [id number] Implanted:Qty: 1 on 01/25/2021 by Zeniab Robert MD at [facility] Left: [facility] [id number] 05/31/2023 [facility]0740-C S / / [id number] documented as of this encounter Visit Diagnoses [...] patient or by statute hierarchy) Care Teams Psychometric Examiner Relationship Specialty Start Date End Date Dru Fritz MD [address] [place] [address] PCP - General Family Medicine 01/24/21 documented as of this encounter
--- OUTSIDE RECORDS SUMMARY | 2024-03-24 20:14 | External Medical Summary ---
Author Name Unknown Address Unknown Organization [facility]09[facility] [address] [place] [address] Laboratory Report Ordering Provider Test Date Status PATRICE QUINONES 03/11/2024 14:33:27 Final Observation Date Value Abnormality Reference (Units ) Status SYNC LEUKOCYTES IN BLOOD BY AUTOMATED COUNT 03/11/2024 14:33:27 4.64 4.00-10.80 (K/uL) Final Neutrophils/100 leukocytes in Blood by Manual count 03/11/2024 14:33:27 78.0 Above high normal 40.0-75.0 (%) Final Lymphocytes/100 leukocytes in Blood by Manual count 03/11/2024 14:33:27 13.0 Below low normal 18.0-42.0 (%) Final Monocytes/100 leukocytes in Blood by Manual count 03/11/2024 14:33:27 6.0 1.0-11.0 (%) Final Metamyelocytes/100 leukocytes in Blood by Manual count 03/11/2024 14:33:27 3.0 Above high normal <=0.0 (%) Final Neutrophils [#/volume] in Blood by Manual count 03/11/2024 14:33:27 3.62 1.80-7.70 (K/uL) Final Lymphocytes [#/volume] in Blood by Manual count 03/11/2024 14:33:27 0.60 Below low normal 1.00-4.80 (K/uL) Final Monocytes [#/volume] in Blood by Manual count 03/11/2024 14:33:27 0.28 0.00-1.10 (K/uL) Final Metamyelocytes [#/volume] in Blood by Manual count 03/11/2024 14:33:27 0.14 Above high normal <=0.00 (K/uL) Final Nucleated erythrocytes/100 leukocytes [Ratio] in Blood by Automated count 03/11/2024 14:33:27 Final Performing Location [place] [address]
--- OUTSIDE RECORDS SUMMARY | 2024-03-24 20:14 | External Medical Summary ---
Author Name Unknown Address Unknown Organization K01:[facility] [address] [place] [address] Laboratory Report Ordering Provider Test Date Status KHUSHBU PAT 03/11/2024 14:33:27 Final Observation Date Value Abnormality Reference (Units ) Status Iron 03/11/2024 14:33:27 57 45-176 (ug/dL) Final Iron-binding capacity 03/11/2024 14:33:27 116 Below low normal 250-425 (ug/dL) Final Transferrin Sat % 03/11/2024 14:33:27 49 15-55 (%) Final Performing Location [facility] - [address] [place] [address]
--- OUTSIDE RECORDS SUMMARY | 2024-03-24 20:14 | External Medical Summary ---
Author Name Unknown Address Unknown Organization [facility] [address] [place] [address] Laboratory Report Ordering Provider Test Date Status PATRICE QUINONES 03/11/2024 14:33:27 Final Observation Date Value Abnormality Reference (Units ) Status WBC, Total 03/11/2024 14:33:27 4.64 4.00-10.8 0 (K/uL) Final RBC 03/11/2024 14:33:27 2.75 4.50-5.25 (M/uL) Final Hemoglobin 03/11/2024 14:33:27 7.8 Below low normal 14 .0-16.8 (g/dL) Final HCT 03/11/2024 14:33:27 25.5 Below low normal 40. 0-48.4 (%) Final MCV 03/11/2024 14:33:27 92.7 82.0-99.5 (fL) Final MCH 03/11/2024 14:33:27 28.4 27.0-34.0 (pg) Final MCHC 03/11/2024 14:33:27 30.6 32.0-36.0 (g/dL) Final RDW 03/11/2024 14:33:27 18.8 11.5-15.5 (%) Final Platelets 03/11/2024 14:33:27 71 Below low normal 140 -400 (K/uL) Final MPV 03/11/2024 14:33:27 9.7 6.6-11.1 ( fL) Final Performing Location [facility] [address] [place] [address]
--- OUTSIDE RECORDS SUMMARY | 2024-03-24 20:14 | External Medical Summary | Summary of Care ---
Author Name Unknown Organization [facility] Address [address] [place] [address] Phone [phone] Care Team Providers Care Dish Carrier Name Role Phone Dru Fritz MD Primary Care Provider [phone] Reason for Visit * Reason Onset Date Comments Hematuria 03/10/2024 Encounter Details Date Type Department Care Team (Late st Contact Info) Description 03/10/2024 Telephone Family Practice [facility] [address] [place] [address] Dru Fritz MD [address] [place] [address] Hematuria Allergies Active Allergy Reactions Criticality Noted Date Comments Amoxicillin-Pot Clavulanate 05/17/20 22 Dizziness and confused documented as of this encounter (statuses as of 03/10/2024) Medications Medication Sig Dispensed Refills Start Date End Date Status [employer] SYSTEM W/DEVICE KITIndications:DM type 2, goal [...] 180 Tablet 02/12/2024 Active Ergocalciferol 1.25 MG (05311 UT) Oral Capsule (Vitamin D2(Drisdol)) Take 1 [...] encounter Miscellaneous Notes * Telephone Encounter - Ysabel Mcghee LPN - 03/10/2024 2:44 PM EDT Please order urine testing to rule out UTI as pt is having some confusion and blood in urine as well as chills Pt will stop by lab tomorrow after radiation documented in this encounter Plan of Treatment Upcoming Encounters Date Type Department Care Team (Late st Contact Info) Description 03/11/2024 2:20 PM EDT Laboratory Laboratory [facility] [place] [address] [place] [phone] [facility] [address] [place] [address] 05/08/2024 11:00 AM EDT Laboratory Laboratory [facility] [place] [address] [place] [phone] [facility] [facility] [address] ON LICENSE OF [facility] [place] [address] 05/08/2024 11:45 AM EDT Immunization/Injectio n Hematology/Oncology Treatment, [place] [address] [place] [phone] Nurse, Med 4 [address] [place] [address] 05/20/2024 2:15 PM EDT Office Visit Urology, [facility] 132 [facility] [place] [address] Isaías Novak MD [address] [place] [address] [place] [address] 07/01/2024 4:00 PM EDT Office Visit Family [facility] [address] [facility] [place] [address] Dru Fritz MD [facility] [place] [address] Scheduled Orders Name Type Priority Associated Diagnoses Orde r Schedule URINALYSIS, REFLEX TO MICROSCOPIC Lab Routine Gross hematuria Expected: 03/10/2024, Expires: 03/10/2025 Health Maintenance Due Date Last Done Comments DISCUSS TOBACCO CESSATION (REFER TO SMARTSET #2127) 1959 COVID-19 Vaccine (#1) 1964 Pneumococcal Vaccine: [...] Additional history exists CKD HGB USE SMARTSET 66174 03/06/202503/06, 03/06/2024, 02/15/2024, Additional history exists CKD PHOS USE SMARTSET 72254 03/06/2025 06/0 03/2024, 02/14/2024, 01/24/2024, Additional history [...] this encounter Medical Devices Implanted Type Area Hydroponics Worker Device Identifier Shelf Expiration Date Model / Serial / Lot Stent Trnscarotid Enroute 7x40 - [id number] Implanted:Qty: 1 on 01/25/2021 by Zeinab Robert MD at [facility] Left: [facility] [id number] 05/31/2023 SR-0740-C S / / [id number] documented as of this encounter Visit Diagnoses Diagnosis Gross hematuria- Primary documented in this encounter Advance Directives * Full Code (Latest Code Status on File) Date Activated Date Inactivated Comments 01/25/2021 10:53 AM 01/26/2021 1:19 PM This order reflects the patients wishes and were consensually agreed upon. Healthcare Agents on File Name Relationship Healthcare Agent Relationship Communication Brittaney Watson Spouse Health Care Re presentative (appointed verbally by patient or by statute hierarchy) Care Teams Dish Carrier Relationship Specialty Start Date End Date Dru Fritz MD [address] [place] [address] PCP - General Family Medicine 01/24/21 documented as of this encounter
--- OUTSIDE RECORDS SUMMARY | 2024-03-24 20:14 | External Medical Summary | Summary of Care ---
Author Name Unknown Organization [facility] Address [address] [place] [address] Phone [phone] Care Team Providers Care Chief Of Internal Medicine Name Role Phone Dru Fritz MD Primary Care Provider [phone] Encounter Details Date Type Department Care Team (Late st Contact Info) Description 12/17/2023 Telephone Pharmacy, [facility] [address] [place] [address] [facility] [address] [place] [address] Allergies Active Allergy Reactions Criticality Noted Date Comments Amoxicillin-Pot Clavulanate 05/17/20 22 Dizziness and confused documented as of this encounter (statuses as of 03/17/2024) Medications Medication Sig Dispensed Refills Start Date End Date Status [employer] SYSTEM W/DEVICE KITIndications:D M type 2, goal [...] times a day E11.9 1 Kit 0 Active Acetaminophen 500 MG Oral TabletIndication s:Takes twice daily. Take 1 Tablet by mouth every 6 hours as needed. Active Xgeva 120 MG/1.7ML Subcutaneous Solution (Denosumab) Inject 120 mg under the skin Every Month. Active Entresto 24-26 MG Oral Tablet (sacubitril-vals [...] 90 Tablet 3 3 08/14/20 24 Active Atorvastatin Calcium 80 MG Oral [...] for Nausea. 30 Tablet 2 3 Active linaGLIPtin 5 MG Oral Tablet (Tradjenta)Indic ations:Type 2 diabetes mellitus with diabetic neuropathy, without long-term current use of insulin (HCC) TAKE ONE TABLET BY MOUTH EVERY MORNING 90 Tablet 1 4 12/10/19 25 Active Clopidogrel Bisulfate 75 MG Oral Tablet (pLAVix) TAKE ONE TABLET BY MOUTH IN THE MORNING 30 Tablet 5 3 01/05/20 24 Discontinued(Re fill) Alfuzosin HCl ER 10 MG Oral Tablet Extended Release 24 Hour (Uroxatral) TAKE ONE TABLET BY MOUTH EVERY DAY 90 Tablet 3 3 03/11/20 24 Discontinued(Pa tient preference/disc ontinuation) predniSONE 5 MG Oral Tablet (Deltasone)Indic ations:Prostate cancer metastatic to multiple sites (HCC) Take 1 Tablet by mouth in the morning and 1 Tablet before bedtime. 60 Tablet 5 3 12/26/19 24 Discontinued dexAMETHasone 4 MG Oral Tablet (Decadron)Indica tions:Prostate cancer metastatic to multiple sites (HCC) Take 8mg (2 tabs) twice a day x3 days starting the day before chemotherapy 72 Tablet 3 12/26/19 24 Discontinued Loratadine 10 MG Oral Tablet (Claritin)Indica tions:Prostate cancer metastatic to multiple sites (HCC) Take 10mg (1 tab) daily x5 days starting the day of chemotherapy 30 Tablet 3 12/26/19 24 Discontinued Morphine Sulfate ER 15 MG Oral Tablet Extended Release (MS Contin)Indicatio ns:Cancer associated pain Take 1 Tablet by mouth in the morning and 1 Tablet before bedtime. 60 Tablet 3 03/07/20 24 Discontinued(Re fill) traMADol HCl 50 MG Oral Tablet (Ultram)Indicati ons:Malignant neoplasm metastatic to bone (HCC) Take 2 Tablets by mouth 3 times a day as needed for Pain, Moderate. 180 Tablet 4 12/31/19 24 Discontinued(Re fill) Morphine Sulfate 15 MG Oral Tablet (Msir)Indication s:Malignant neoplasm metastatic to bone (HCC) Take 1 Tablet by mouth in the morning and 1 Tablet before bedtime. 60 Tablet 4 02/11/20 24 Discontinued(Re fill) documented as of this encounter (statuses as of 03/17/2024) Active Problems Problem Noted Date Diagnosed Date [...] as of this encounter (statuses as of 03/17/2024) Resolved Problems Problem Noted Date Diagnosed Date [...] as of this encounter (statuses as of 03/17/2024) Immunizations No known immunizationsdocumented as of this [...] Telephone Encounter - Ysabel Mcghee LPN - 12/17/2023 3:36 PM EDT Called and spoke with pt, aware of the message below * Telephone Encounter - Dru Fritz MD - 12/17/2023 11:43 AM EDT IR sent documented in this encounter Plan of Treatment Upcoming Encounters Date Type Department Care Team (Late st Contact Info) Description 03/19/2024 1:15 PM EDT Office Visit Urology, [facility] [address] [facility] [place] [address] Isaías Novak MD [address] [place] [address] [place] [address] 04/18/2024 1:15 PM EDT Office Visit [facility] 200 [facility] [place] [phone] Elio Queen MD [address] [facility] [place] [address] 04/21/2024 2:30 PM EDT Office Visit Urology, [facility] 132 [facility] [place] [address] Isaías Novak MD [address] [place] [address] [place] [address] 05/08/2024 11:00 AM EDT Laboratory [facility] [address] [facility] [place] [phone] Isis Melara [facility] 200 [facility] [place], [place] [address] 05/08/2024 11:45 AM EDT Immunization/Injectio n Hematology/Oncology Treatment, [place] [address] [place] [phone] Nurse, Med [address] [place] [address] 05/20/2024 2:15 PM EDT Office Visit Urology, [facility] [address] [place] [address] Isaías Novak MD [address] [place] [address] [place] [address] 07/01/2024 4:00 PM EDT Office Visit Family Practice [facility] [address] [facility] [place] [address] Dru Fritz MD 132 [facility] [place] [address] Health Maintenance Due Date Last Done Comments DISCUSS TOBACCO CESSATION (REFER TO SMARTSET #2169) 1960 COVID-19 Vaccine (#1) 1965 Pneumococcal Vaccine: [...] 05/15/2022, Additional history exists GFR 09/10/2024 03/11/2024, 0603/2024, 02/15/2024, Additional history exists Depression Screening 03/06/2025 03/06/2024 CKD HGB USE SMARTSET 80575 03/11/202503/11, 03/11/2024, 03/06/2024, Additional history exists CKD PHOS USE SMARTSET 56278 03/11/202503/01, 03/06/2024, 02/14/2024, Additional history exists GARDASIL-HPV IMMUNIZATION SERIES Aged Out No longer eligible based on patient's age to complete this topic Hepatitis B Aged Out No longer eligi ble based on patient's age to complete this topic MENINGOCOCCAL (MENACTRA/MENVEO) Aged Out No longer eligible based on patient's age to complete this topic documented as of this encounter Medical Devices Implanted Type Area Provisioning Analyst Device Identifier Shelf Expiration Date Model / Serial / Lot Stent Trnscarotid Enroute 7x40 - [id number] Implanted:Qty: 1 on 01/25/2021 by Zeinab Robert MD at [facility] Left: [facility] [id number] 05/31/2023 SR-0740-C S / / [id number] documented as of this encounter Visit Diagnoses [...] patient or by statute hierarchy) Care Teams Chief Of Internal Medicine Relationship Specialty Start Date End Date Dru Fritz MD 132 [facility] [place] [address] PCP - General Family Medicine 01/24/21 documented as of this encounter
--- OUTSIDE RECORDS SUMMARY | 2024-03-24 20:14 | External Medical Summary | Summary of Care ---
Author Name Unknown Organization [facility] Address [address] [place] [address] Phone [phone] Care Team Providers Care Fuel Management Handler Name Role Phone Dru Fritz MD Primary Care Provider [phone] Reason for Visit * Reason Comments Infusion Hydration Nurse Documentation Held Xgeva Encounter Details Date Type Department Care Team (Late st Contact Info) Description 02/14/2024 2:00 PM EDT Immunization/I njection Hematology/Oncology Treatment, [place] [address] [place] [address] Nurse, Med [address] [place] [address] Malignant neoplasm metastatic to bone (HCC)*; Prostate cancer metastatic to multiple sites (HCC) Allergies Active Allergy Reactions Criticality Noted Date Comments Amoxicillin-Pot Clavulanate 05/17/20 22 Dizziness and confused documented as of this encounter (statuses as of 03/11/2024) Medications Medication Sig Dispensed Refills Start Date End Date Status [employer] SYSTEM W/DEVICE KITIndications:DM type 2, goal [...] Kit 01/12/2020 Active Acetaminophen 500 MG Oral TabletIndications :Takes twice daily. Take 1 Tablet by mouth every 6 hours as needed. Active Xgeva 120 MG/1.7ML Subcutaneous Solution (Denosumab) Inject 120 mg under the skin Every Month. Active Entresto 24-26 MG Oral Tablet (sacubitril-valsa rtan 24-26 mg per tab)Indications:E ssential hypertension with goal blood pressure less than 140/90 TAKE ONE TABLET BY MOUTH TWICE A DAY 180 Tablet 3 05/03/2023 05/02/20 24 Active K-Phos 500 MG Oral Tablet (potassium phosphate)Indicat ions:Hypophosphat emia TAKE ONE TABLET BY MOUTH TWICE A DAY 180 Tablet 1 07/17/2023 Active Empagliflozin 25 MG Oral Tablet (Jardiance)Indica tions:Type 2 diabetes mellitus with diabetic neuropathy, without long-term current use of insulin (HCC) TAKE ONE TABLET BY MOUTH DAILY IN THE MORNING 90 Tablet 3 08/15/2023 08/14/20 24 Active Alfuzosin HCl ER 10 MG Oral Tablet Extended Release 24 Hour (Uroxatral) TAKE ONE TABLET BY MOUTH EVERY DAY 90 Tablet 3 08/27/2023 08/26/20 24 Active Atorvastatin Calcium 80 MG Oral Tablet (Lipitor)Indicati ons:History of CVA (cerebrovascular accident),Dyslipi demia TAKE ONE TABLET BY MOUTH EVERY DAY IN THE MORNING 90 Tablet 2 08/27/2023 08/26/20 24 Active Ondansetron HCl 8 MG [...] 09/13/2023 Active linaGLIPtin 5 MG Oral Tablet (Tradjenta)Indica tions:Type 2 diabetes mellitus with diabetic neuropathy, without long-term current use of insulin (HCC) TAKE ONE TABLET BY MOUTH EVERY MORNING 90 Tablet 1 12/10/2023 12/10/19 25 Active PARoxetine HCl 10 MG Oral Tablet (Paxil) Take 1 Tablet by mouth in the morning. 90 Tablet 3 12/26/2023 Active Clopidogrel Bisulfate 75 MG Oral Tablet (pLAVix) TAKE ONE TABLET BY MOUTH IN THE MORNING 30 Tablet 5 01/06/2024 01/06/20 25 Active Morphine Sulfate 15 MG Oral Tablet (Msir)Indications :Malignant neoplasm metastatic to bone (HCC) Take 1 Tablet by mouth in the morning and 1 Tablet before bedtime. 60 Tablet 02/12/2024 Active traMADol HCl 50 MG Oral Tablet (Ultram)Indicatio ns:Malignant neoplasm metastatic to bone (HCC) Take 2 Tablets by mouth 3 times a day as needed for moderate pain. 180 Tablet 02/12/2024 Active Morphine Sulfate ER 15 MG Oral Tablet Extended Release (MS Contin)Indication s:Cancer associated pain Take 1 Tablet by mouth in the morning and 1 Tablet before bedtime. 60 Tablet 09/26/2023 03/07/20 24 Discontinued(Ref ill) FLUoxetine HCl 20 MG Oral Capsule (PROzac) Take 1 Capsule by mouth in the morning. 90 Capsule 3 01/16/2024 03/07/20 24 Discontinued documented as of this encounter (statuses as of 03/11/2024) Active Problems Problem Noted Date Diagnosed Date Malignant neoplasm metastatic to bone 11/04/2021 Prostate [...] for antineoplastic chemotherapy 08/17/2023 03/07/2024 Hydronephrosis, bilateral 02/15/20224 Incomplete emptying of bladder 02/15/2022 03/10/2022 Renal [...] Nursing Notes * Tash Mcintyre LPN - 02/14/2024 2:34 PM EDT 1330: Pt arrived for Xgeva injection. Arie-6.5, Phos 2.6. Held Xgeva per parameters. concerned that patient isnt drinking and is worried about dehydration. Pts creatine 1.5. HR 118, BP low. Spok[place] nurse specialist and per GEOGRAPHIC AREA INTELLIGENCE OFFICER to give 1 L hydration. PIV in [...] Description 03/11/2024 2:20 PM EDT Laboratory Laboratory [facility] [address] [place] [phone] [facility] 200 [facility] [place] [address] 05/08/2024 11:00 AM EDT Laboratory Laboratory [facility] [place] 200 [facility] [place] [place] [phone] [facility] 200 [facility] [place] [address] 05/08/2024 11:45 AM EDT Immunization/Injectio n Hematology/Oncology Treatment, [place] [address] [place] [phone] Nurse, Med 4 200 [facility] [place] [address] 05/20/2024 2:15 PM EDT Office Visit Urology, [facility] 132 [facility] [place] [address] Isaías Novak MD [address] [place] [address] [place] [address] 07/01/2024 4:00 PM EDT Office Visit Family Practice [facility] [address] [place] [address] Dru Fritz MD 132 [facility] [place] [address] Health Maintenance Due Date Last Done Comments DISCUSS TOBACCO CESSATION (REFER TO SMARTSET #6325) 1960 COVID-19 Vaccine (#1) 1965 Pneumococcal Vaccine: [...] Additional history exists CKD HGB USE SMARTSET 88245 03/06/202503/06, 03/06/2024, 02/15/2024, Additional history exists CKD PHOS USE SMARTSET 42278 03/06/2025 06/0 03/2024, 02/14/2024, 01/24/2024, Additional history [...] this encounter Medical Devices Implanted Type Area Primary Care Coordinator Device Identifier Shelf Expiration Date Model / Serial / Lot Stent Trnscarotid Enroute 7x40 - [id number] Implanted:Qty: 1 on 01/25/2021 by Zeinab Robert MD at [facility] Left: Carot[employer] [facility] [id number] 05/31/2023 SR-0740-C S / / [id number] documented as of this encounter Visit Diagnoses [...] mL/hr documented in this encounter Advance Directives * Full Code (Latest Code Status on File) Date Activated Date Inactivated Comments 01/25/2021 10:53 AM 01/26/2021 1:19 PM This order reflects the patients wishes and were consensually agreed upon. Healthcare Agents on File Name Relationship Healthcare Agent Relationship Communication Brittaney Chaudhari Spouse Health Care Re presentative (appointed verbally by patient or by statute hierarchy) Care Teams Fuel Management Handler Relationship Specialty Start Date End Date Dru Fritz MD [address] [place] [address] PCP - General Family Medicine 01/24/21 documented as of this encounter
--- OUTSIDE RECORDS SUMMARY | 2024-03-24 20:15 | External Medical Summary ---
Author Name Unknown Address Unknown Organization K01:[facility] - [address] [place] [address] Laboratory Report Ordering Provider Test Date Status ADILIAKHUSHBU 03/06/2024 12:16:15 Final Observation Date Value Abnormality Reference (Units ) Status Ferritin 03/06/2024 12:16:15 3094 Above high normal 30 -400 (ng/mL) Final Performing Location [facility] - [address] [place] [address]
--- OUTSIDE RECORDS SUMMARY | 2024-03-24 20:15 | External Medical Summary ---
Author Name Unknown Address Unknown Organization K01:LABORATORY [facility] - [address] [place] [address] Laboratory Report Ordering Provider Test Date Status KHUSHBU PAT 03/06/2024 12:16:15 Final Observation Date Value Abnormality Reference (Units ) Status Vitamin B12 03/06/2024 12:16:15 [phone] (pg/mL) Final Performing Location [facility] - [address] [place] [address]
--- OUTSIDE RECORDS SUMMARY | 2024-03-24 20:15 | External Medical Summary | Summary of Care ---
Author Name Unknown Organization [facility] Address [address] [place] [address] Phone [phone] Care Team Providers Care Ignition Specialist Name Role Phone Dru Fritz MD Primary Care Provider [phone] Reason for Visit * Reason Onset Date Comments Information 03/05/2024 Encounter Details Date Type Department Care Team (Late st Contact Info) Description 03/05/2024 Telephone Cardiology, [facility] 132 [facility] [place] [address] Danay Howell PA-C [facility] [address] Information Allergies Active Allergy Reactions Criticality Noted Date Comments Amoxicillin-Pot Clavulanate 05/17/20 22 Dizziness and confused documented as of this encounter (statuses as of 03/06/2024) Medications Medication Sig Dispensed Refills Start Date End Date Status SwitchNote SYSTEM W/DEVICE KITIndications:DM type 2, goal A1c [...] TWICE A DAY 180 Tablet 3 05/03/2023 06/09/2024 Active Additional Information Patient not taking.Reported on 03/06/2024 K-Phos 500 MG Oral Tablet (potassium phosphate)Indicatio [...] 1 Tablet before bedtime. 60 Tablet 09/26/2023 Active linaGLIPtin 5 MG Oral Tablet (Tradjenta)Indicati [...] Additional Information Patient not taking.Reported on 03/06/2024 FLUoxetine HCl 20 MG Oral Capsule (PROzac) Take 1 Capsule by mouth in the morning. 90 Capsule 3 01/16/2024 Active Additional Information Patient not taking.Reported on [...] for moderate pain. 180 Tablet 02/12/2024 Active busPIRone HCl 5 MG Oral Tablet (Buspar) Take one tablet by mouth three times daily 30 Tablet 02/29/2024 Active documented as of this encounter (statuses as of 03/06/2024) Active Problems Problem Noted Date Diagnosed Date [...] as of this encounter (statuses as of 03/06/2024) Resolved Problems Problem Noted Date Diagnosed Date [...] as of this encounter (statuses as of 03/06/2024) Immunizations No known immunizationsdocumented as of this [...] encounter Miscellaneous Notes * Telephone Encounter - José Otero RN - 03/06/2024 11:46 AM EDT Returned to call to the patient and he is at home. Will try to call the patientl ater today. * Telephone Encounter - Danay Howell PA-C - 03/05/2024 2:50 PM EDT Hospital records reviewed. Entresto held due to CARLA, which had improved at discharge. They were continuing to hold Entresto due to low normal BP. If blood pressure improved can resume, monitor blood pressure at home with plan to repeat BMP in 1 week. As far as aspirin and plavix, was held due to anemia. He is on these due to carotid disease s/p TCAR. Will defer to vascular or PCP. * Telephone Encounter - Tamara Salas LPN - 03/05/2024 2:26 PM EDT Pt calling. Pt was at [facility] February 14- and February 22-March 4 Hematuria metastatic prostate cancer, ureter stents d/c bladder CA Entresto was stopped in hospital, along with plavix and aspirin. Pt started on metoprolol 12.5mg BID Pt reports that they were told on discharge to hold entresto and that he would restart. D/c summary says on hold until nephrology appt. Pt called [facility] floor nurse last evening and was told by the nurse to restart entresto. She did restart it last night and today's AM dose. is now concerned about if they should have restarted it. Also asking if he should resume plavix and aspirin. documented in this encounter Plan of Treatment Upcoming Encounters Date Type Department Care Team (Late st Contact Info) Description 03/07/2024 11:00 AM EDT Office Visit Family Practice [facility] [address] [place] [address] Dru Fritz MD [address] [place] [address] 05/08/2024 11:00 AM EDT Laboratory Laboratory [facility] [place] [address] [place] [address] Isis Melara [address] [facility] [place] [address] 05/08/2024 11:45 AM EDT Immunization/Injectio n Hematology/Oncology Treatment, [place] [address] [place] [address] Nurse, Med 4 [address] [place] [address] 05/20/2024 2:15 PM EDT Office Visit Urology, [facility] [address] [place] [address] Isaías Novak MD [address] [place] [address] 07/01/2024 4:00 PM EDT Office Visit Family Practice [facility] [place] [address] Dru Fritz MD 132 [facility] [place] [address] Scheduled Orders Name Type Priority Associated Diagnoses Orde r Schedule BASIC METABOLIC PANEL Lab Routine HFrEF (heart failure with reduced ejection fraction) (HCC) Expected: 03/12/2024, Expires: 03/05/2025 Health Maintenance Due Date Last Done Comments DISCUSS TOBACCO CESSATION (REFER TO SMARTSET #3290) 1960 COVID-19 Vaccine (#1) 1964 Pneumococcal Vaccine: [...] Additional history exists CKD PHOS USE SMARTSET 76085 02/13/202501/29, 01/24/2024, 01/17/2024, Additional history exists CKD HGB USE SMARTSET 25416 02/14/202502/14, 02/15/2024, 02/14/2024, Additional history exists GARDASIL-HPV IMMUNIZATION SERIES Aged Out No longer eligible based on patient's age to complete this topic Hepatitis B Aged Out No longer eligi ble based on patient's age to complete this topic MENINGOCOCCAL (MENACTRA/MENVEO) Aged Out No longer eligible based on patient's age to complete this topic documented as of this encounter Medical Devices Implanted Type Area Product Marketing Intern Device Identifier Shelf Expiration Date Model / Serial / Lot Stent Trnscarotid Enroute 7x40 - [id number] Implanted:Qty: 1 on 01/25/2021 by Zeinab Robert MD at [facility] Left: [facility] [id number] 05/31/2023 SR-0740-C S / / [id number] documented as of this encounter Visit Diagnoses Diagnosis HFrEF (heart failure with reduced ejection fraction) (HCC)- Primary documented in this encounter Advance Directives * Full Code (Latest Code Status on File) Date Activated Date Inactivated Comments 01/25/2021 10:53 AM 01/26/2021 1:19 PM This order reflects the patients wishes and were consensually agreed upon. Care Teams Ignition Specialist Relationship Specialty Start Date End Date Dru Fritz MD [address] [place] [address] PCP - General Family Medicine 01/24/21 documented as of this encounter
--- OUTSIDE RECORDS SUMMARY | 2024-03-24 20:15 | External Medical Summary ---
Author Name Unknown Address Unknown Organization K01:[facility] - [address] [place] [address] Laboratory Report Ordering Provider Test Date Status KHUSHBU PAT 03/06/2024 12:16:15 Final Observation Date Value Abnormality Reference (Units ) Status Iron 03/06/2024 12:16:15 54 45-176 (ug/dL) Final Iron-binding capacity 03/06/2024 12:16:15 107 Below low normal 250-425 (ug/dL) Final Transferrin Sat % 03/06/2024 12:16:15 50 15-55 (%) Final Performing Location [facility] - [address] [place] [address]
--- OUTSIDE RECORDS SUMMARY | 2024-03-24 20:15 | External Medical Summary ---
Author Name Unknown Address Unknown Organization K09:[facility] [address] [place] [address] Laboratory Report Ordering Provider Test Date Status PATRICE QUINONES 03/06/2024 12:16:15 Final Observation Date Value Abnormality Reference (Units ) Status Phosphate 03/06/2024 12:16:15 2.1 Below low normal 2.5 -4.8 (mg/dL) Final Performing Location [facility] [address]
--- OUTSIDE RECORDS SUMMARY | 2024-03-24 20:15 | External Medical Summary | Summary of Care ---
Author Name Unknown Organization [facility] Address [address] [place] [address] Phone [phone] Care Team Providers Care Production Hand Name Role Phone Dru Fritz MD Primary Care Provider [phone] Reason for Visit * Reason Onset Date Comments Information 03/05/2024 Encounter Details Date Type Department Care Team (Late st Contact Info) Description 03/05/2024 Telephone Cardiology, [facility] 132 [facility] [place] [address] Danay Howell PA-C [facility] [address] Information Allergies Active Allergy Reactions Criticality Noted Date Comments Amoxicillin-Pot Clavulanate 05/17/20 22 Dizziness and confused documented as of this encounter (statuses as of 03/06/2024) Medications Medication Sig Dispensed Refills Start Date End Date Status In[place] SYSTEM W/DEVICE KITIndications:DM type 2, goal A1c [...] Miscellaneous Notes * Telephone Encounter - José Otreo RN - 03/06/2024 11:46 AM EDT Returned call to the patient and he is not at home. Will try to call the patient later today. * Telephone Encounter - Danay Howell [...] PM EDT Pt calling. Pt was at [facility] February 14- and February 22-March 4 Hematuria metastatic prostate cancer, ureter stents d/c bladder CA Entresto was stopped in hospital, along with plavix and aspirin. Pt started on metoprolol 12.5mg BID Pt reports that they were told on discharge to hold entresto and that he would restart. D/c summary says on hold until nephrology appt. Pt called [facility] floor nurse last evening and was [...] 11:00 AM EDT Office Visit Family Practice [facility] [address] [place] [address] Dru Fritz MD [address] [place] [address] 05/08/2024 11:00 AM EDT Laboratory Laboratory [facility] [place] [address] [place] [address] Isis Melara [address] [facility] [place] [address] 05/08/2024 11:45 AM EDT Immunization/Injectio n Hematology/Oncology Treatment, [place] [address] [place] [phone] Nurse, Med [address] [place] [address] 05/20/2024 2:15 PM EDT Office Visit Urology, [facility] [address] [facility] [place] [address] Isaías Novak MD [address] [facility] [address] [place] [address] 07/01/2024 4:00 PM EDT Office Visit [facility] [place] [address] Dru Fritz MD 132 [facility] [place] [address] Scheduled Orders Name Type Priority Associated Diagnoses [...] Additional history exists CKD PHOS USE SMARTSET 97290 02/13/202501/29, 01/24/2024, 01/17/2024, Additional history exists CKD HGB USE SMARTSET 76471 02/14/202502/14, 02/15/2024, 02/14/2024, Additional history exists GARDASIL-HPV IMMUNIZATION SERIES Aged Out No longer eligible based on patient's age to complete this topic Hepatitis B Aged Out No longer eligi ble based on patient's age to complete this topic MENINGOCOCCAL (MENACTRA/MENVEO) Aged Out No longer eligible based on patient's age to complete this topic documented as of this encounter Medical Devices Implanted Type Area Windows System Admin Device Identifier Shelf Expiration Date Model / Serial / Lot Stent Trnscarotid Enroute 7x40 - [id number] Implanted:Qty: 1 on 01/25/2021 by Zeinab Robert MD at [facility] Left: [facility] [id number] 05/31/2023 SR-0740-C S / / [id number] documented as of this encounter Visit Diagnoses Diagnosis HFrEF (heart failure with reduced ejection fraction) (HCC)- Primary documented in this encounter Advance Directives * Full Code (Latest Code Status on File) Date Activated Date Inactivated Comments 01/25/2021 10:53 AM 01/26/2021 1:19 PM This order reflects the patients wishes and were consensually agreed upon. Care Teams Production Hand Relationship Specialty Start Date End Date Dru Fritz MD [address] [place] [address] PCP - General Family Medicine 01/24/21 documented as of this encounter
--- OUTSIDE RECORDS SUMMARY | 2024-03-24 20:15 | External Medical Summary ---
Author Name Unknown Address Unknown Organization K09:[facility] [place] [address] Laboratory Report Ordering Provider Test Date Status PATRICE QUINONES 03/06/2024 12:16:15 Final Observation Date Value Abnormality Reference (Units ) Status WBC, Total 03/06/2024 12:16:15 5.31 4.00-10.8 0 (K/uL) Final RBC 03/06/2024 12:16:15 2.94 4.50-5.25 (M/uL) Final Hemoglobin 03/06/2024 12:16:15 8.3 Below low normal 14 .0-16.8 (g/dL) Final HCT 03/06/2024 12:16:15 26.7 Below low normal 40. 0-48.4 (%) Final MCV 03/06/2024 12:16:15 90.8 82.0-99.5 (fL) Final MCH 03/06/2024 12:16:15 28.2 27.0-34.0 (pg) Final MCHC 03/06/2024 12:16:15 31.1 32.0-36.0 (g/dL) Final RDW 03/06/2024 12:16:15 18.5 11.5-15.5 (%) Final Platelets 03/06/2024 12:16:15 59 Below low normal 140 -400 (K/uL) Final MPV 03/06/2024 12:16:15 9.4 6.6-11.1 ( fL) Final Performing Location [facility] [place] [address]
--- OUTSIDE RECORDS SUMMARY | 2024-03-24 20:15 | External Medical Summary | Summary of Care ---
Author Name Unknown Organization [facility] Address [address] [place] [address] Phone [phone] Care Team Providers Care Spinner Cap Frame Name Role Phone Dru Fritz MD Primary Care Provider [phone] [phone] Reason for Visit * Reason Onset Date Comments Information 03/05/2024 Encounter Details Date Type Department Care Team (Late st Contact Info) Description 03/05/2024 Telephone Cardiology, [facility] 132 [facility] [place] [address] Danay Howell PA-C [facility] [address] Information Allergies Active Allergy Reactions Criticality Noted Date Comments Amoxicillin-Pot Clavulanate 05/17/20 22 Dizziness and confused documented as of this encounter (statuses as of 03/06/2024) Medications Medication Sig Dispensed Refills Start Date End Date Status Oakmonkey SYSTEM W/DEVICE KITIndications:DM type 2, goal A1c [...] encounter Miscellaneous Notes * Telephone Encounter - Sheri Zayas RN - 03/06/2024 12:24 PM EDT Reviewed message with patient and in clinic today. * Telephone Encounter - José Otero RN [...] PM EDT Pt calling. Pt was at [facility] February 14- and February 22-March 04 Hematuria metastatic prostate cancer, ureter stents d/c bladder CA Entresto was stopped in hospital, along with plavix and aspirin. Pt started on metoprolol 12.5mg BID Pt reports that they were told on discharge to hold entresto and that he would restart. D/c summary says on hold until nephrology appt. Pt called [facility] floor nurse last evening and was told [...] 03/07/2024 11:00 AM EDT Office Visit Family [facility] [address] [place] [address] Dru Fritz MD [address] [place] [address] 05/08/2024 11:00 AM EDT Laboratory Laboratory [facility] [address] [place] [id number] Park, Lab Scenery [address] [facility] [place] [address] 05/08/2024 11:45 AM EDT Immunization/Injectio n Hematology/Oncology Treatment, [place] [address] [place] [phone] Nurse, Med [address] [place] [address] 05/20/2024 2:15 PM EDT Office Visit Urology, [facility] 132 [facility] [place] [address] Isaías Novak MD [address] [address] [place] [address] 07/01/2024 4:00 PM EDT Office Visit Family Practice [facility] 132 [facility] [place] [address] Dru Fritz MD 132 [facility] [place] [address] Scheduled Orders Name Type Priority Associated Diagnoses Orde r Schedule BASIC METABOLIC PANEL Lab Routine HFrEF (heart failure with reduced ejection fraction) (HCC) Expected: 03/12/2024, Expires: 03/05/2025 Health Maintenance Due Date Last Done Comments DISCUSS TOBACCO CESSATION (REFER TO SMARTSET #8339) 1960 COVID-19 Vaccine (#1) 1965 Pneumococcal Vaccine: [...] Additional history exists CKD PHOS USE SMARTSET 79968 02/13/202501/29, 01/24/2024, 01/17/2024, Additional history exists CKD HGB USE SMARTSET 47060 02/14/202502/14, 02/15/2024, 02/14/2024, Additional history exists GARDASIL-HPV IMMUNIZATION SERIES Aged Out No longer eligible based on patient's age to complete this topic Hepatitis B Aged Out No longer eligi ble based on patient's age to complete this topic MENINGOCOCCAL (MENACTRA/MENVEO) Aged Out No longer eligible based on patient's age to complete this topic documented as of this encounter Medical Devices Implanted Type Area Accounting Professional Device Identifier Shelf Expiration Date Model / Serial / Lot Stent Trnscarotid Enroute 7x40 - [id number] Implanted:Qty: 1 on 01/25/2021 by Zeinab Robert MD at [facility] Left: Carotid [facility] [id number] 05/31/2023 SR-0740-C S / / [id number] documented as of this encounter Visit Diagnoses [...] patient or by statute hierarchy) Care Teams Spinner Cap Frame Relationship Specialty Start Date End Date Dru Fritz MD [address] [place] [address] PCP - General Family Medicine 01/24/21 documented as of this encounter
--- OUTSIDE RECORDS SUMMARY | 2024-03-24 20:15 | External Medical Summary ---
Author Name Unknown Address Unknown Organization K01:[facility] [place] [address] [place] [address] Laboratory Report Ordering Provider Test Date Status KHUSHBU PAT 03/06/2024 12:16:15 Final Observation Date Value Abnormality Reference (Units ) Status Folic Acid 03/06/2024 12:16:15 5.8 >4.5 (ng/ mL) Final Performing Location [facility] - [address] [place] [address]
--- OUTSIDE RECORDS SUMMARY | 2024-03-24 20:15 | External Medical Summary | Summary of Care ---
Author Name Unknown Organization [facility] Address [address] [place] [address] Phone [phone] Care Team Providers Care Set Up And Charger Name Role Phone Dru Fritz MD Primary Care Provider [phone] Reason for Referral * Medication Prior Authorization - Pending Review Specialty Diagnoses / Procedures Referred By Contac t Referred To Contact Diagnoses Cancer associated pain Dru Fritz MD [address] [place] [id number] Referral ID Status Reason Start Date Expiration Date V isits Requested Visits Authorized [id number] Pending Review [phone] Reason for Visit * Reason Comments Hospital Follow-Up Pt here for hospital follow up, would like to go over medications Encounter Details Date Type Department Care Team (Late st Contact Info) Description 03/07/2024 11:00 AM EDT Office Visit [facility] [address] [place] [address] Dru Fritz MD [address] [place] [address] Hospital discharge follow-up*; Cancer associated pain; Prostate cancer metastatic to multiple sites (HCC) Allergies Active Allergy Reactions Criticality Noted Date Comments Amoxicillin-Pot Clavulanate 05/17/20 22 Dizziness and confused documented as of this encounter (statuses as of 03/07/2024) Medications Medication Sig Dispensed Refills Start Date End Date Status Etacts SYSTEM W/DEVICE KITIndications:D M type 2, goal A1c below 7 Use up to four times a day as directed 1 Kit 0 4 Active Aspirin 81 MG TBEC Take 1 Tablet by mouth in the morning. Active sildenafil (REVATIO) 20 MG Tablet Take 3 tablets by mouth 1 hour prior to sexual activity 30 Tab 5 8 Active Blood Glucose Monitoring Suppl (Greener ExpressionsTOUCH VERIO) w/Device KIT Use up to 4 [...] 90 Tablet 3 3 08/26/20 24 Active Additional Information Patient not taking.Reported on 03/07/2024 Atorvastatin Calcium 80 MG Oral Tablet (Lipitor)Indicat [...] 90 Tablet 1 4 12/10/19 25 Active PARoxetine HCl 10 MG Oral Tablet (Paxil) Take 1 Tablet by mouth in the morning. 90 Tablet 3 4 Active Additional Information Patient not taking.Reported on 03/06/2024 Clopidogrel Bisulfate 75 MG Oral Tablet (pLAVix) TAKE ONE TABLET BY MOUTH IN THE MORNING 30 Tablet 5 4 01/06/20 25 Active Additional Information Patient not taking.Reported on 03/06/2024 Morphine Sulfate 15 MG Oral Tablet (Msir)Indication s:Malignant neoplasm metastatic to bone (HCC) Take 1 Tablet by mouth in the morning and 1 Tablet before bedtime. 60 Tablet 4 Active traMADol HCl 50 MG Oral Tablet (Ultram)Indicati ons:Malignant neoplasm metastatic to bone (HCC) Take 2 Tablets by mouth 3 times a day as needed for moderate pain. 180 Tablet 4 Active busPIRone HCl 5 MG Oral Tablet (Buspar) Take one tablet by mouth three times daily 30 Tablet 4 Active Ergocalciferol 1.25 MG (50294 UT) Oral Capsule (Vitamin D2(Drisdol)) Take 1 [...] TABLET BY MOUTH DAILY IN THE MORNING 4 Active Magnesium Cl-Calcium Carbonate 71.5-119 MG Oral Tablet Delayed Release 64 mg. 4 Active Metoprolol Tartrate 25 MG Oral Tablet (Lopressor) 0.5 Tablets. 4 Active Calcitriol 0.25 MCG Oral Capsule (Rocaltrol) DAILY IN THE MORNING 4 Active Tamsulosin HCl 0.4 MG Oral Capsule (Flomax) 1 Capsule. 4 Active Morphine Sulfate ER 15 MG Oral Tablet Extended Release (MS Contin)Indicatio ns:Cancer associated pain Take 1 Tablet by mouth in the morning and 1 Tablet before bedtime. 60 Tablet 4 Active Morphine Sulfate ER 15 MG Oral Tablet Extended Release (MS Contin)Indicatio ns:Cancer associated pain Take 1 Tablet by mouth in the morning and 1 Tablet before bedtime. 60 Tablet 3 03/07/20 24 Discontinued(Ref ill) FLUoxetine HCl 20 MG Oral Capsule (PROzac) Take 1 Capsule by mouth in the morning. 90 Capsule 3 4 03/07/20 24 Discontinued documented as of this encounter (statuses as of 03/07/2024) Active Problems Problem Noted Date Diagnosed Date [...] as of this encounter (statuses as of 03/07/2024) Resolved Problems Problem Noted Date Diagnosed Date [...] as of this encounter (statuses as of 03/07/2024) Immunizations No known immunizationsdocumented as of this [...] Sign Reading Time Taken Comments Blood Pressure - - Pulse 68 03/07/2024 11:17 AM EDT Temperature 36.6 C (97.8 F) 03/07/2024 11:17 AM E DT Respiratory Rate 18 03/07/2024 11:17 AM EDT Oxygen Saturation 97% 03/07/2024 11:17 AM EDT Inhaled Oxygen Concentration - - [...] Progress Notes * Dru Fritz MD - 03/07/2024 2:56 PM EDT SUBJECTIVE: Brett Chaudhari is a 63 year old male. Chief Complaint Patient presents with Hospital Follow-Up Pt here for hospital follow up, would like to go over medications Hospitalized at [facility]: d/c date 03/04/24 HPI: Here for cancer related pain and hospital follow up. Has been having a lot of issues with renal function and anemia, in addition to his usual cancer related issues. He has not been tolerating treatment well. They may be changing course in terms of his treatment in the near future. Hospital notes reviewed. Patient Active Problem List Diagnosis Tobacco use disorder Dyslipidemia Type 2 diabetes mellitus with hemoglobin A1c goal of less than 7.0% (HCC) HTN, goal below 130/80 Stage 3a chronic kidney disease (HCC) PAD (peripheral artery disease) (HCC) History of CVA (cerebrovascular accident) Nonischemic cardiomyopathy (HCC) Chronic systolic heart failure (HCC) Asymptomatic bilateral carotid artery stenosis Primary insomnia History of left common carotid artery stent placement Prostate cancer metastatic to multiple sites (HCC) Malignant neoplasm metastatic to bone (HCC) Controlled substance agreement signed Current Outpatient Medications Medication Sig Dispense Refill sildenafil (REVATIO) 20 MG Tablet Take 3 tablets by mouth 1 hour prior to sexual activity 30 Tab 5 Acetaminophen 500 MG Oral Tablet Take 1 Tablet by mouth every 6 hours as needed. Entresto 24-26 MG Oral Tablet (sacubitril-valsartan 24-26 mg per tab) TAKE ONE TABLET BY MOUTH TWICE A DAY 180 Tablet 3 K-Phos 500 MG Oral Tablet (potassium phosphate) TAKE ONE TABLET BY MOUTH TWICE A DAY 180 Tablet 1 Empagliflozin 25 MG Oral Tablet (Jardiance) TAKE ONE TABLET BY MOUTH DAILY IN THE MORNING 90 Tablet3 Atorvastatin Calcium 80 MG Oral Tablet (Lipitor) [...] as needed for Nausea. 30 Tablet 2 linaGLIPtin 5 MG Oral Tablet (Tradjenta) TAKE ONE TABLET BY MOUTH EVERY MORNING 90 Tablet 1 Morphine Sulfate 15 MG Oral Tablet (Msir) Take 1 Tablet by mouth in the morning and 1 Tablet beforebedtime. 60 Tablet 0 traMADol HCl 50 MG Oral Tablet (Ultram) Take 2 Tablets by mouth 3 times a day as needed for moderate pain. 180 Tablet 0 busPIRone HCl 5 MG Oral Tablet (Buspar) Take one tablet by mouth three times daily 30 Tablet 0 Ergocalciferol 1.25 MG (06954 UT) Oral Capsule (Vitamin D2(Drisdol)) Take 1 Capsule by mouth every 30 days. Magnesium 80 MG Oral Tablet Take by mouth. Calcium Carbonate Antacid 500 MG Oral Tablet Chewable (Tums) Take 1 Tablet by mouth in the morning. B-12 1000-400 MCG Sublingual Tablet Sublingual Place under the tongue. FeroSul 325 (65 Fe) MG Oral Tablet TAKE ONE TABLET BY MOUTH DAILY IN THE MORNING Magnesium Cl-Calcium Carbonate 71.5-119 MG Oral Tablet Delayed Release 64 mg. Metoprolol Tartrate 25 MG Oral Tablet (Lopressor) 0.5 Tablets. Calcitriol 0.25 MCG Oral Capsule (Rocaltrol) DAILY IN THE MORNING Tamsulosin HCl 0.4 MG Oral Capsule (Flomax) 1 Capsule. Morphine Sulfate ER 15 MG Oral Tablet Extended Release (MS Contin) Take 1 Tablet by mouth in the morning and 1 Tablet before bedtime. 60 Tablet 0 Etacts SYSTEM W/DEVICE KIT Use up to four times a day as directed 1 Kit 0 Aspirin 81 MG TBEC Take 1 Tablet by mouth in the morning. (Patient not taking: Reported on 03/06/2024) Blood Glucose Monitoring Suppl (Yeelion VERHoneywell) w/Device KIT Use up to 4 times a day E11.9 1 Kit 0 Xgeva 120 MG/1.7ML Subcutaneous Solution (Denosumab) Inject 120 mg under the skin Every Month. Alfuzosin HCl ER 10 MG Oral Tablet Extended Release 24 Hour (Uroxatral) TAKE ONE TABLET BY MOUTH EVERY DAY (Patient not taking: Reported on 03/07/2024) 90 Tablet 3 PARoxetine HCl 10 MG Oral Tablet (Paxil) Take 1 Tablet by mouth in the morning. (Patient not taking: Reported on 03/06/2024) 90 Tablet 3 Clopidogrel Bisulfate 75 MG Oral Tablet (pLAVix) TAKE ONE TABLET BY MOUTH IN THE MORNING (Patient not taking: Reported on 03/06/2024) 30 Tablet 5 No current facility-administered medications for this visit. Allergy: Review of patient's allergies indicates: Allergen Reactions Augmentin [Amoxicillin-Pot Clavulanate] Dizziness and confused OBJECTIVE: Pulse 68 | Temp 36.6 C (97.8 F) (Tympanic) | Resp 18 | SpO2 97% Gen: cachectic male in wheelchair Lungs: ctab Heart: rrr, no mrg Skin: no tenting Msk: diffuse muscle wasting noted ASSESSMENT AND PLAN: (Z09) Hospital discharge follow-up (primary encounter diagnosis) Plan: continue cancer treatment as scheduled (G89.3) Cancer associated pain Plan: Morphine Sulfate ER 15 MG Oral Tablet Extended Release (MS Contin) -has diffuse metastasis and will need chronic pain medication to continue (C61) Prostate cancer metastatic to multiple sites (HCC) Plan: see above Follow up as needed. No other complaints were offered at this time. Dru Fritz MD documented in this encounter Nursing Notes * Ysabel Mcghee LPN - 03/07/2024 11:17 AM EDT The patient has been properly identified by confirmation of name and date of . Chief Complaint Patient presents with Hospital Follow-Up Pt here for hospital follow up, would like to go over medications documented in this encounter Plan of Treatment Upcoming Encounters Date Type Department Care Team (Late st Contact Info) Description 05/08/2024 11:00 AM EDT Laboratory Laboratory [facility] [address] [place] [phone] [place], Lab [facility] [address] [facility] [place] [address] 05/08/2024 11:45 AM EDT Immunization/Injectio n Hematology/Oncology Treatment, [place] [address] [place] [phone] Nurse, Med [address] [facility] [place] [address] 05/20/2024 2:15 PM EDT Office Visit Urology, [facility] [address] [facility] [place] [address] Isaías Novak MD [address] [place] [address] [place] [address] 07/01/2024 4:00 PM EDT Office Visit [facility] [address] [place] [address] Dru Fritz MD [address] [place] [address] Health Maintenance Due Date Last Done Comments DISCUSS TOBACCO CESSATION (REFER TO SMARTSET #7044) 1960 COVID-19 Vaccine (#1) 1965 Pneumococcal Vaccine: [...] Additional history exists CKD HGB USE SMARTSET 13576 03/06/202503/06, 03/06/2024, 02/15/2024, Additional history exists CKD PHOS USE SMARTSET 62546 03/06/2025 06/0 03/2024, 02/14/2024, 01/24/2024, Additional history [...] this encounter Medical Devices Implanted Type Area Insulation Sprayer Device Identifier Shelf Expiration Date Model / Serial / Lot Stent Trnscarotid Enroute 7x40 - [id number] Implanted:Qty: 1 on 01/25/2021 by Zeinab Robert MD at [facility] Left: [facility] [id number] 05/31/2023 [id number] / / [id number] documented as of this encounter Visit Diagnoses Diagnosis Hospital discharge follow-up- Primary Other follow-up examination Cancer associated pain Neoplasm related pain (acute) (chronic) Prostate cancer metastatic to multiple sites (HCC) Malignant neoplasm of prostate documented in this encounter Advance Directives * Full Code (Latest Code Status on File) Date Activated Date Inactivated Comments 01/25/2021 10:53 AM 01/26/2021 1:19 PM This order reflects the patients wishes and were consensually agreed upon. Healthcare Agents on File Name Relationship Healthcare Agent Relationship Communication Brittaney Chaudhari Spouse Health Care Re presentative (appointed verbally by patient or by statute hierarchy) Care Teams Set Up And Charger Relationship Specialty Start Date End Date Dru Fritz MD [address] [facility] [place] [address] PCP - General Family Medicine 01/24/21 documented as of this encounter"
--- OUTSIDE RECORDS SUMMARY | 2024-03-24 20:15 | External Medical Summary ---
Author Name Unknown Address Unknown Organization K09:[facility] [address] [place] [address] Laboratory Report Ordering Provider Test Date Status PATRICE QUINONES 03/06/2024 12:16:15 Final Observation Date Value Abnormality Reference (Units ) Status SYNC LEUKOCYTES IN BLOOD BY AUTOMATED COUNT 03/06/2024 12:16:15 5.31 4.00-10.80 (K/uL) Final Neutrophils/100 leukocytes in Blood by Manual count 03/06/2024 12:16:15 74.0 40.0-75.0 (%) Final Lymphocytes/100 leukocytes in Blood by Manual count 03/06/2024 12:16:15 16.0 Below low normal 18.0-42.0 (%) Final Monocytes/100 leukocytes in Blood by Manual count 03/06/2024 12:16:15 7.0 1.0-11.0 (%) Final Metamyelocytes/100 leukocytes in Blood by Manual count 03/06/2024 12:16:15 3.0 Above high normal <=0.0 (%) Final Neutrophils [#/volume] in Blood by Manual count 03/06/2024 12:16:15 3.93 1.80-7.70 (K/uL) Final Lymphocytes [#/volume] in Blood by Manual count 03/06/2024 12:16:15 0.85 Below low normal 1.00-4.80 (K/uL) Final Monocytes [#/volume] in Blood by Manual count 03/06/2024 12:16:15 0.37 0.00-1.10 (K/uL) Final Metamyelocytes [#/volume] in Blood by Manual count 03/06/2024 12:16:15 0.16 Above high normal <=0.00 (K/uL) Final Nucleated erythrocytes/100 leukocytes [Ratio] in Blood by Automated count 03/06/2024 12:16:15 Final Performing Location [facility] [place] [address]
--- OUTSIDE RECORDS SUMMARY | 2024-03-24 20:15 | External Medical Summary | Summary of Care ---
Author Name Unknown Organization [facility] Address [address] [place] [address] Phone [phone] Care Team Providers Care Anthropology Department Chair Name Role Phone Dru Fritz MD Primary Care Provider [phone] Encounter Details Date Type Department Care Team (Late st Contact Info) Description 03/06/2024 11:30 AM EDT Office Visit Hematology/Oncology [facility] [address] [place] [address] Pastora Aguilar CRNP [address] [place] [address] Prostate cancer metastatic to multiple sites (HCC)*; Metastasis to bone (HCC); Anemia, unspecified type; Cancer related pain Allergies Active Allergy Reactions Criticality Noted Date Comments Amoxicillin-Pot Clavulanate 05/17/20 22 Dizziness and confused documented as of this encounter (statuses as of 03/10/2024) Medications Medication Sig Dispensed Refills Start Date End Date Status Octro SYSTEM W/DEVICE KITIndications:D M type 2, goal [...] Active Entresto 24-26 MG Oral Tablet (sacubitril-vals ieleen 24-26 mg per tab)Indications: Essential hypertension with [...] for moderate pain. 180 Tablet 4 Active Ergocalciferol 1.25 MG (02058 UT) Oral Capsule (Vitamin D2(Drisdol)) Take 1 Capsule by mouth every 30 days. Active Magnesium 80 MG Oral Tablet Take by mouth. Active Calcium Carbonate Antacid 500 MG Oral Tablet Chewable (Tums) Take 1 Tablet by mouth in the morning. Active B-12 1000-400 MCG Sublingual Tablet Sublingual Place under the tongue. Active Morphine Sulfate ER 15 MG Oral Tablet Extended Release (MS Contin)Indicatio ns:Cancer associated pain Take 1 Tablet by mouth in the morning and 1 Tablet before bedtime. 60 Tablet 3 03/07/20 24 Discontinued(Ref ill) FLUoxetine HCl 20 MG Oral Capsule (PROzac) Take 1 Capsule by mouth in the morning. 90 Capsule 3 4 03/07/20 24 Discontinued busPIRone HCl 5 MG Oral Tablet (Buspar) Take one tablet by mouth three times daily 30 Tablet 4 03/10/20 24 Discontinued(Ref ill) documented as of this encounter (statuses as [...] Sign Reading Time Taken Comments Blood Pressure 144/78 03/06/2024 11:28 AM EDT Pulse 114 03/06/2024 11:28 AM EDT Temperature 36.8 C (98.3 F) 03/06/2024 11:28 AM E DT Respiratory Rate 15 03/06/2024 11:28 AM EDT Oxygen Saturation 96% 03/06/2024 11:28 AM EDT Inhaled Oxygen Concentration - - Weight 55.8 kg (123 lb) 03/06/2024 11:28 AM EDT Height - - Body Mass Index 18.7 12/26/2023 2:32 PM EDT documented in this [...] as of this encounter Progress Notes * Pastora Aguilar CRNP - 03/06/2024 11:30 AM EDT Images from the original note were not included. Hematology/Oncology Outpatient Clinic note [facility] [address] [facility] [place] [address] Name: Brett Chaudhari Date: 03/06/2024 CHIEF COMPLAINT: Brett Chaudhari is a 63 year old male here today for f/u visit today. Patient of Dr. Elio Queen. From Patient chart confirmed with patient. HEMATOLOGY/ONCOLOGY DIAGNOSIS: Prostate cancer, bone metastasis. Artur score 4+5 -PSA level was around 31 [...] he was started on Taxotere and prednisone. Taxotere prednisone x3 between 08/21/2023 - 11/01/2023 ( Discontinued because of disease progression,rise in the PSA level) CURRENT TREATMENT: - Eligard every 4 monthly under the guidance of Dr. Novak., now changed to every 6 monthly. - Xgeva every six weeks since November 2021. - Pluvicto treatment at [facility]. 1st treatment on 01/04/2024 (currently on hold d/t hematuria and severe anemia) -Palliative radiation therapy for hematuria DIAGNOSTIC WORKUP: Earlier he was seen by Urology for voiding difficulties, found to have elevated PSA of around 11.7 as of late November 2020. He was scheduled for further evaluation with biopsy of the prostate but underwent carotid stent placement in December 2016 and he could not go off the Plavix for 3 months after the stent. He had Rain's catheter but It was discontinued. He once [...] as of 05/31/2021, he was admitted at [facility]. I reviewed those records. He had Rain's catheter for about 2 months which was removed in late August 2021. Biopsy from the prostate gland showed prostatic adenocarcinoma Alexandria score 4+5. Bone scan --> Multiple focal areas of increased uptake are seen in spine, ribs, sternum, pelvis,and right proximal femur suggestive of metastatic disease (06/13/2021). OTHER IMPORTANT HISTORY: -Type 2 diabetes, PAD, L carotid stent placement at [facility] December 2020, chronic systolic heart failure,CKD 3, hypertension, BPH, tobacco use, history of CVA, - chronic pancreatitis. - History of ischemic CM with EF 30%, improved to 43% on November 2020 echo - smokes about 7 cigarettes in a day. Interval History: Disease progression noted while on Taxotere chemotherapy so It was discontinued. Now started him on Pulvicto treatment at [facility], received 1st treatment on 01/03/2022, about week after that, he was admitted at [facility], he had a worsening anemia, worsening kidney function, dehydration, possible UTI, he received IV hydration with improvement of the kidney function noted Was again admitted to [facility] 02/23/24 - 03/04/24: HISTORY OF PRESENT ILLNESS: Brett Chaudhari is a 63 year old male with a history as outlined above. Currently here for f/u visit today. Patient not feeling well today. Just states he feels like "hell." Nothing tastes good so he doesn't feel like eating anything. Has lost a significant amount of weight. This comes and goes. Has not resumed drinking protein shakes yet. Has them at home and plans on starting today. Bleeding has resolved since rain catheter removed on discharge. States he is voiding well. Pain has improvedsince starting radiation therapy. This will be completed on March 25. Bowels are moving normally. Denies mouth sores or pain. Denies neuropathy. Has noticed clinical improvement with a decrease in his pain level. Is taking tramadol and morphine IR for pain relief. Is taking Tums for calcium supplementation. Taking ferrous sulfate and vitamin b12 once daily. Past Medical History: Diagnosis Date Chronic systolic heart failure (HCC) 03/31/2019 DM type 2, goal A1c below 7 Heart failure, etiology unknown ([facility]) cardiac cath 10-20% block History of left common carotid artery stent placement 03/08/2021 HTN, goal to be determined Nonischemic cardiomyopathy (HCC) 03/31/2019 Primary insomnia 03/07/2021 Sciatica Past Surgical History: Procedure Laterality Date TRANSCATH STENT-CAROTID ARTERY, W/EMBOL PROTECTION Left 01/25/2021 CAROTID STENT WITH DISTAL PROTECTION performed by Zeinab Robert MD at [facility] TRANSCATH STENT-CAROTID ARTERY, W/EMBOL PROTECTION Left 01/25/2021 CAROTID STENT WITH DISTAL PROTECTION TRANSCAROTID ARTERY REVASCULARIZATION performed by Zeinab Robert MD at OR [facility] Social History Socioeconomic History Marital status: Spouse name: Not on file Number of children: 3 Years of education: Not on file Highest education level: Not on file Occupational History Employer: [employer] Tobacco Use Smoking status: Every Day Current packs/day: 0.50 Average packs/day: 0.5 packs/day for 30.0 years (15.0 ttl pk-yrs) Types: Cigarettes Smokeless tobacco: Never Tobacco comments: 08/09/22 smokes 1/2 pack a day Vaping Use Vaping status: Never Used Substance and Sexual Activity Alcohol use: Yes [...] Current Outpatient Medications Medication Sig Dispense Refill Ergocalciferol 1.25 MG (11144 UT) Oral Capsule (Vitamin D2(Drisdol)) Take 1 Capsule by mouth every 30 days. Magnesium 80 MG Oral Tablet Take by mouth. Calcium Carbonate Antacid 500 MG Oral Tablet Chewable (Tums) Take 1 Tablet by mouth in the morning. B-12 1000-400 MCG Sublingual Tablet Sublingual Place under the tongue. Octro SYSTEM W/DEVICE KIT Use up to four times a day as directed 1 Kit 0 Aspirin 81 MG TBEC Take 1 Tablet by mouth in the morning. (Patient not taking: Reported on 03/06/2024) sildenafil (REVATIO) 20 MG Tablet Take 3 tablets by mouth 1 hour prior to sexual activity 30 Tab 5 Blood Glucose Monitoring Suppl ([employer] VERIO) w/Device KIT Use up to 4 [...] taking: Reported on 03/07/2024) 90 Tablet 3 Atorvastatin Calcium 80 MG [...] BY MOUTH EVERY MORNING 90 Tablet 1 PARoxetine HCl 10 MG Oral Tablet (Paxil) Take 1 Tablet by mouth in the morning. (Patient not taking: Reported on 03/06/2024) 90 Tablet 3 Clopidogrel Bisulfate 75 MG Oral Tablet (pLAVix) TAKE ONE TABLET BY MOUTH IN THE MORNING (Patient not taking: Reported on 03/06/2024) 30 Tablet 5 Morphine Sulfate 15 MG Oral Tablet (Msir) [...] mouth three times daily 30 Tablet 0 FeroSul 325 (65 Fe) MG Oral Tablet [...] SYSTEMS: See HPI - otherwise negative OBJECTIVE: Filed Vitals: 03/06/24 1128 BP: 144/78 Pulse: 114 Resp: 15 Temp: 36.8 C (98.3 F) TempSrc: Tympanic SpO2: 96% Weight: 55.8 kg (123 lb) Wt Readings from Last 5 Encounters: 03/06/24 55.8 kg (123 lb) 01/17/24 64.3 kg (141 lb 11.2 oz) 01/11/24 59.7 kg (131 lb 9.6 oz) 12/26/23 64 kg (141 lb) 12/26/23 64 kg (141 lb) PHYSICAL EXAM: ECOG: Performance Status 2 = 60-70% Bedtime, < 50% daytime General Appearance: +chronically ill, thin Lymph Nodes: Normal - No palpable lymph nodes in the neck or supraclavicular areas Lungs/Thorax: Normal - Clear to auscultation Heart: Regular rhythm, +tachycardia, normal S1, S2, no appreciable murmurs Pulses/Extremities: Normal - 2+ throughout and symmetrical, no edema Neurologic: Normal - Grossly intact LABS: N/A IMPRESSION/PLAN: Prostate cancer, bone metastasis. Hematuria Acute on chronic anemia Cancer related pain Patient how S/P TURP, TURBT and bilateral stent placement by Dr. Chaudhari on 02/18/24. Patient hospitalized at [facility] 02/23/24 - 03/04/24 for acute on chronic anemia. Received 2 units of PRBCs. Aspirin/plavix currently on hold. Currently completing palliative radiation therapy. Tentative last day 03/25. Patient is noting clinical improvement with decrease in pain level. Hematuria has currently resolved. Patient will have cbc/diff, CMP, iron screen, ferritin, vitamain b12 and folic acid today. Further recommendations based on results. Continue ferrous sulfate and vitamin b12 one tablet daily Pluvicto currently on hold d/t cytopenias. Xgeva currently on hold d/t hypocalcemia and hypophosphatemia. Continue Tums supplements 1500 mg TID. Continue K phos 500 mg BID. Continue Calcitriol 1 mcg daily. Resume daily protein supplement. Continue to follow with Urology. Continue Lupron. Follow up with all other specialist as recommended Pain currently well controlled RTC in 4-6 weeks with physician with cbc/diff, cmp, iron screen, ferritin and psa DANIELLE Lorenzo documented in this encounter Nursing Notes * Tash Gonzalez MED ASSIST - 03/06/2024 11:36 AM EDT Patient identifed by name and [...] it for you? ALREADY ACTIVE Filed Vitals: 03/06/24 1128 BP: 144/78 Pulse: 114 Resp: 15 Temp: 36.8 C (98.3 F) TempSrc: Tympanic SpO2: 96% Weight: 55.8 kg (123 lb) Patient was instructed to not get up [...] Description 05/08/2024 11:00 AM EDT Laboratory Laboratory [facility] [address] [place] [address] Isis Melara [facility] [address] [facility] [place] [address] 05/08/2024 11:45 AM EDT Immunization/Injectio n Hematology/Oncology Treatment, [place] [address] [place] [id number] Nurse, Med 4 [address] [facility] [place] [address] 05/20/2024 2:15 PM EDT Office Visit Urology, [facility] [address] [facility] [place] [address] Isaías Novak MD [address] [place] [id number] 07/01/2024 4:00 PM EDT Office Visit Family Practice [facility] [address] [facility] [place] [address] Dru [facility] [address] [facility] [place] [address] Scheduled Orders Name Type Priority Associated Diagnoses Orde r Schedule CBC WITH WBC DIFFERENTIAL Lab STAT Anemia, unspecified type Every Week for 15 Occurrences starting 03/10/2024 until 09/09/2024 COMPREHENSIVE METABOLIC PANEL Lab STAT Anemia, unspecified type Prostate cancer metastatic to multiple sites (HCC) Metastasis to bone (HCC) Every Month for 6 Occurrences starting 03/10/2024 until 03/06/2025 IRON SCREEN, INCLUDING TIBC Lab STAT Anemia, unspecified type Prostate cancer metastatic to multiple sites (HCC) Metastasis to bone (HCC) Every Month for 6 Occurrences starting 03/10/2024 until 03/06/2025 FERRITIN Lab STAT Anemia, unspecified type Prostate cancer metastatic to multiple sites (HCC) Metastasis to bone (HCC) Every Month for 6 Occurrences starting 03/10/2024 until 03/06/2025 PSA Lab STAT Anemia, unspecified type Prostate cancer metastatic to multiple sites (HCC) Metastasis to bone (HCC) Every Month for 6 Occurrences starting 03/10/2024 until 03/06/2025 Health Maintenance Due Date Last Done Comments DISCUSS TOBACCO CESSATION (REFER TO SMARTSET #8188) 1960 COVID-19 Vaccine (#1) 1965 Pneumococcal Vaccine: [...] Additional history exists CKD HGB USE SMARTSET 51296 03/06/202503/06, 03/06/2024, 02/15/2024, Additional history exists CKD PHOS USE SMARTSET 86432 03/06/2025 06/0 03/2024, 02/14/2024, 01/24/2024, Additional history [...] this encounter Medical Devices Implanted Type Area Shoe Fitter Device Identifier Shelf Expiration Date Model / Serial / Lot Stent Trnscarotid Enroute 7x40 - [id number] Implanted:Qty: 1 on 01/25/2021 by Zeinab Robert MD at [facility] Left: [facility] [id number] 05/31/2023 [id number] / / [id number] documented as of this encounter Procedures Procedure Name Priority Date/Time Associated Diagnosis Comments DIFFERENTIAL, AUTOMATED STAT 03/06/2024 12:16 PM EDT Prostate cancer metastatic to multiple sites (HCC) COMPREHENSIVE METABOLIC PANEL STAT 03/06/2024 12:16 PM EDT Prostate cancer metastatic to multiple sites (HCC) PSA STAT 03/06/2024 12:16 PM EDT Prostate cancer metastatic to multiple sites (HCC) FOLIC ACID Routine 03/06/2024 12:16 PM EDT Anemia, unspecified type IRON SCREEN, INCLUDING TIBC Routine 03/06/2024 12:16 PM EDT Anemia, unspecified type CBC STAT 03/06/2024 12:16 PM EDT Prostate cancer metastatic to multiple sites (HCC) PHOSPHORUS STAT 03/06/2024 12:16 PM EDT Metastasis to bone (HCC) CBC STAT 03/06/2024 12:16 PM EDT Prostate cancer metastatic to multiple sites (HCC) DIFFERENTIAL, TECHNOLOGIST REVIEW Routine 03/06/2024 12:16 PM EDT Prostate cancer metastatic to multiple sites (HCC) FERRITIN Routine 03/06/2024 12:16 PM EDT Anemia, unspecified type VITAMIN B12 Routine 03/06/2024 12:16 PM EDT Anemia, unspecified type documented in this encounter Results * (ABNORMAL) DIFFERENTIAL, TECHNOLOGIST REVIEW (03/06/2024 12:16 PM EDT) WBC 5.31 4.00 - 10.80 K/uL 03/06/2024 1:06 PM EDT [facility] 56- Neutrophils % 74.0 40.0 - 75.0 % 03/06/2024 1:06 PM EDT [facility] 56- Lymphocytes % 16.0(L) 18.0 - 42.0 % 03/06/2024 1:06 PM EDT [place] [address]- Monocytes % 7.0 1.0 - 11.0 % 03/06/2024 1:06 PM EDT [facility] 56 Metamyelocytes % 3.0(H) <=0.0 % 03/06/20 1:06 PM EDT [place] [address]- Absolute Neutrophils 3.93 1.80 - 7.70 K/uL 03/06/2024 1:06 PM EDT [facility] 56- Absolute Lymphocytes 0.85(L) 1.00 - 4.80 K/uL 03/06/2024 1:06 PM EDT [facility] 56- Absolute Monocytes 0.37 0.00 - 1.10 K/uL 03/06/2024 1:06 PM EDT [facility] 56- Absolute Metamyelocytes 0.16(H) <=0.00 K/uL 03/06/2024 1:06 PM EDT [place] [address]- nRBCs 03/06/2024 1:06 PM EDT [facility] 56- Blood Venous blood specimen / Unknown Venipuncture / Unknown 03/06/2024 12:16 PM EDT 03/06/2024 12:16 PM EDT Elio Queen MD LAB BLOOD ORDERABLES [facility] [address] [place] [address] * DIFFERENTIAL, AUTOMATED (03/06/2024 12:16 PM EDT) Blood Venous blood specimen / Unknown Venipuncture / Unknown 03/06/2024 12:16 PM EDT 03/06/2024 12:16 PM EDT Elio Queen MD LAB BLOOD ORDERABLES [facility] [address] [place] [address] * (ABNORMAL) CBC (03/06/2024 12:16 PM EDT) WBC 5.31 4.00 - 10.80 K/uL 03/06/2024 1:06 PM EDT [address] RBC 2.94 4.50 - 5.25 M/uL 03/06/2024 1:06 PM EDT [place] [address] HGB 8.3(L) 14.0 - 16.8 g/dL 03/06/2024 1:06 PM EDT [address] HCT 26.7(L) 40.0 - 48.4 % 03/06/2024 1:06 PM EDT [address] MCV 90.8 82.0 - 99.5 fL 03/06/2024 1:06 PM EDT [facility] 56 MCH 28.2 27.0 - 34.0 pg 03/06/2024 1:06 PM EDT [facility] 56 MCHC 31.1 32.0 - 36.0 g/dL 03/06/2024 1:06 PM EDT [facility] 56 RDW 18.5 11.5 - 15.5 % 03/06/2024 1:06 PM EDT [facility] 56 PLT 59(L) 140 - 400 K/uL 03/06/2024 1:06 PM EDT [facility] 56 MPV 9.4 6.6 - 11.1 fL 03/06/2024 1:06 PM EDT [facility] 56 Blood Venous blood specimen / Unknown Venipuncture / Unknown 03/06/2024 12:16 PM EDT 03/06/2024 12:16 PM EDT Elio Queen MD LAB BLOOD ORDERABLES [place] [address] [address] [place] [address] * (ABNORMAL) PHOSPHORUS (03/06/2024 12:16 PM EDT) Phosphorus 2.1(L) 2.5 - 4.8 mg/dL 03/06/2024 12:52 PM EDT [place] [address] Blood Venous blood specimen / Unknown Venipuncture / Unknown 03/06/2024 12:16 PM EDT 03/06/2024 12:16 PM EDT Elio Queen MD LAB BLOOD ORDERABLES [place] [address] [address] [place] [address] * (ABNORMAL) COMPREHENSIVE METABOLIC PANEL (03/06/2024 12:16 PM EDT) BUN 16 6 - 20 mg/dL 03/06/2024 12:52 PM EDT [address] Creatinine 1.1 0.6 - 1.2 mg/dL 03/06/2024 12:52 PM EDT [address] Estimated Glomerular Filtration Rate 72 >=60 mL/min 03/06/2024 12:52 PM EDT [facility] 56 Comment:eGFR is calculated b ased on the CKD-EPI 2020 equation Sodium 140 135 - 146 mmol/L 03/06/2024 12:52 PM EDT [facility] 56- Potassium 3.3(L) 3.5 - 5.1 mmol/L 03/06/2024 12:52 PM EDT [facility] 56- Chloride 104 98 - 107 mmol/L 03/06/2024 12:52 PM EDT [facility] 56- CO2 20(L) 22 - 32 mmol/L 03/06/2024 12:52 PM EDT [facility] 56 Anion Gap 16(H) 7 - 15 mmol/L 03/06/2024 12:52 PM EDT [facility] 56- Glucose 125(H) 70 - 120 mg/dL 03/06/2024 12:52 PM EDT LABORATORY [address] Albumin 3.1(L) 3.8 - 5.0 g/dL 03/06/2024 12:52 PM EDT LABORATORY [address] AST 53(H) 10 - 50 U/L 03/06/2024 12:52 PM EDT LABORATORY [address] Alkaline Phosphatase 515(H) 35 - 130 U/L 03/06/2024 12:52 PM EDT LABORATORY [address] Bilirubin, Total 0.5 <=1.2 mg/dL 03/06/2024 12:52 PM EDT [address] Calcium 7.6(L) 8.4 - 10.2 mg/dL 03/06/2024 12:52 PM EDT [address] Protein 6.4 6.0 - 8.3 g/dL 03/06/2024 12:52 PM EDT LABORATORY [address] ALT 15 10 - 50 U/L 03/06/2024 12:52 PM EDT LABORATORY [place] [address] Blood Venous blood specimen / Unknown Venipuncture / Unknown 03/06/2024 12:16 PM EDT 03/06/2024 12:16 PM EDT Elio Queen MD LAB BLOOD ORDERABLES [facility] [address] [place] [address] * (ABNORMAL) PSA (03/06/2024 12:16 PM EDT) PSA 481.50(H) <4.10 ng/mL 03/06/2024 6:[address] [facility] Blood Venous blood specimen / Unknown Venipuncture / Unknown 03/06/2024 12:16 PM EDT 03/06/2024 12:16 PM EDT Elio Queen MD LAB BLOOD ORDERABLES LABORATORY [facility] [address] [place] [address] * FOLIC ACID (03/06/2024 12:16 PM EDT) Folic Acid 5.8 >4.5 ng/mL 03/06/2024 7:57 PM EDT [facility]ORY [facility] Blood Venous blood specimen / Unknown Venipuncture / Unknown 03/06/2024 12:16 PM EDT 03/06/2024 12:16 PM EDT Pastora SANTOS LAB BLOOD ORDER [facility] LAB[facility]AT[facility] [address] [place] [address] * VITAMIN B12 (03/06/2024 12:16 PM EDT) Vitamin B12 596 232 - 1,245 pg/mL 03/06/2024 7:57 PM EDT LABORATORY C Blood Venous blood specimen / Unknown Venipuncture / Unknown 03/06/2024 12:16 PM EDT 03/06/2024 12:16 PM EDT Pastora SANTOS LAB BLOOD ORDER [facility] Performing Organization Address City/[facility]/ZIP Co de Phone Number LABORATORY [facility] [address] [place] [address] * (ABNORMAL) FERRITIN (03/06/2024 12:16 PM EDT) Pathologist [facility] Ferritin 3,094(H) 30 - 400 ng/mL 03/06/2024 7:58 PM EDT [facility] Blood Venous blood specimen / Unknown Venipuncture / Unknown 03/06/2024 12:16 PM EDT 03/06/2024 12:16 PM EDT Pastora SANTOS LAB BLOOD ORDER [facility]AT[facility] [address] [place] [address] * (ABNORMAL) IRON SCREEN, INCLUDING TIBC (03/06/2024 12:16 PM EDT) Iron 54 45 - 176 ug/dL 03/06/2024 6:04 PM EDT [facility] Iron Binding Capacity 107(L) 250 - 425 ug/dL 03/06/2024 6:04 PM EDT [facility] Transferrin Saturation Percent 50 15 - 55 % 03/06/2024 6:04 PM EDT [facility] Blood Venous blood specimen / Unknown Venipuncture / Unknown 03/06/2024 12:16 PM EDT 03/06/2024 12:16 PM EDT Pastora SANTOS LAB BLOOD ORDER [facility] LAB[facility] [address] [place] [address] documented in this encounter Visit Diagnoses Diagnosis Prostate cancer metastatic to multiple sites (HCC)- Primary Malignant neoplasm of prostate Metastasis to bone (HCC) Secondary malignant neoplasm of bone and bone marrow Anemia, unspecified type Cancer related pain Neoplasm related pain (acute) (chronic) documented in this encounter Advance Directives * Full Code (Latest Code Status on File) Date Activated Date Inactivated Comments 01/25/2021 10:53 AM 01/26/2021 1:19 PM This order reflects the patients wishes and were consensually agreed upon. Healthcare Agents on File Name Relationship Healthcare Agent Relationship Communication Brittaney Watson Spouse Health Care Re presentative (appointed verbally by patient or by statute hierarchy) Care Teams Anthropology Department Chair Relationship Specialty Start Date End Date Dru Fritz MD [address] [place] [address] PCP - General Family Medicine 01/24/21 documented as of this encounter
--- OUTSIDE RECORDS SUMMARY | 2024-03-24 20:15 | External Medical Summary | Summary of Care ---
Author Name Unknown Organization [facility] Address [address] [facility] [place] [address] Phone [phone] Care Team Providers Care Gleason Operator Name Role Phone Dru Fritz MD Primary Care Provider [phone] Reason for Visit * Reason Onset Date Comments Medication Pre-auth 03/07/2024 Morphine Sul fate ER 15 mg Encounter Details Date Type Department Care Team (Late st Contact Info) Description 03/07/2024 Telephone Family Practice [facility] [address] [place] [id number] Dru Fritz MD [address] [facility] [place] [address] Medication Pre-auth (Morphine Sulfate ER 1... Allergies Active Allergy Reactions Criticality Noted Date Comments Amoxicillin-Pot Clavulanate 05/17/20 22 Dizziness and confused documented as of this encounter (statuses as of 03/08/2024) Medications Medication Sig Dispensed Refills Start Date End Date Status EasyProve ULTRA SYSTEM W/DEVICE KITIndications:DM type 2, goal [...] DAY 180 Tablet 3 05/03/2023 06/09/2024 Active K-Phos 500 MG Oral Tablet (potassium [...] three times daily 30 Tablet 02/29/2024 Active Ergocalciferol 1.25 MG (87161 UT) Oral Capsule (Vitamin D2(Drisdol)) Take 1 [...] Tablet before bedtime. 60 Tablet 03/07/2024 Active documented as of this encounter (statuses as of 03/08/2024) Active Problems Problem Noted Date Diagnosed Date [...] as of this encounter (statuses as of 03/08/2024) Resolved Problems Problem Noted Date Diagnosed Date [...] as of this encounter (statuses as of 03/08/2024) Immunizations No known immunizationsdocumented as of this [...] encounter Miscellaneous Notes * Telephone Encounter - Stephan Garcia offender job retention specialist - 03/08/2024 10:18 AM EDT Patients insurance would like to inform the office that Morphine Sulfate is approved until 03/08/2025. Patient and pharmacy made aware by [facility]. Information will be faxed to the office. Thank You, Stephan Garcia [facility] Wreath Machine Tender II [facility] 03/08/2024, 10:18 AM * Telephone Encounter - Ysabel Mcghee LPN - 03/07/2024 3:28 PM EDT Office note faxed as requested * Telephone Encounter - Kofi Herrera CPhT - 03/07/2024 12:23 PM EDT Patients insurance would like to inform the office that Morphine Sulfate ER 15 mg is requiring additional information: Will need office notes. Prior authorization entered in [employer] at [facility]. EOC# [id number] Please fax to [phone] before 4::00 pm today 03.07.24. Thank you, Kory Herrera ([facility]) Auto Painter III [facility] ([facility]) 03/07/2024, 12:23 PM documented in this encounter Plan of Treatment Upcoming Encounters Date Type Department Care Team (Late st Contact Info) Description 05/08/2024 11:00 AM EDT Laboratory Laboratory [facility] [address] [place] [id number] Isis [place] [address] [place] [address] 05/08/2024 11:45 AM EDT Immunization/Injectio n Hematology/Oncology Treatment, [place] [address] [place] [phone] Nurse, Med [address] [place] [address] 05/20/2024 2:15 PM EDT Office Visit Urology, [facility] [address] [place] [address] Isaías Novak MD [address] [id number] 07/01/2024 4:00 PM EDT Office Visit Family Practice [facility] [address] [facility] [place] [address] Dru Fritz MD [address] [facility] [address] Health Maintenance Due Date Last Done Comments DISCUSS TOBACCO CESSATION (REFER TO SMARTSET #5770) 1960 COVID-19 Vaccine (#1) 1965 Pneumococcal Vaccine: [...] Additional history exists CKD HGB USE SMARTSET 98536 03/06/202503/06, 03/06/2024, 02/15/2024, Additional history exists CKD PHOS USE SMARTSET 51308 03/06/2025 06/0 03/2024, 02/14/2024, 01/24/2024, Additional history [...] this encounter Medical Devices Implanted Type Area Color Depositing Machine Tender Device Identifier Shelf Expiration Date Model / Serial / Lot Stent Trnscarotid Enroute 7x40 - [id number] Implanted:Qty: 1 on 01/25/2021 by Zeinab Robert MD at [facility] Left: [facility] [id number] 05/31/2023 [id number] / / [id number] documented as of this encounter Advance Directives [...] patient or by statute hierarchy) Care Teams Gleason Operator Relationship Specialty Start Date End Date Dru Fritz MD [address] [place] [address] PCP - General Family Medicine 01/24/21 documented as of this encounter
[2024-03-24] MEDS: OPTIRAY 320 125ml IV ONE (22:11)
[2024-03-24] MEDS ORDERED: NITROGLYCERIN SL 0.4 MG/TAB TAB SL PRN (22:16)
[2024-03-24] MEDS ORDERED: LIDOCAINE 2% JELLY 5 ML TUBE EXT PRN (22:16)
[2024-03-24] MEDS ORDERED: POLYETHYLENE (MIRALAX) 17 GM PACK PO PRN (22:16)
[2024-03-24] MEDS ORDERED: GLUCOSE 10 TAB/TUBE PO PRN (22:16)
[2024-03-24] MEDS ORDERED: CARBOHYDRATES FOR HYPOGLYCEMIA PO PRN (22:16)
[2024-03-24] MEDS ORDERED: GLUCAGON FOR INJ 1 MG VIAL SQ PRN (22:16)
[2024-03-24] MEDS ORDERED: GLUCOSE 40% GEL 15 GM TUBE PO PRN (22:16)
[2024-03-24] MEDS ORDERED: DEXTROSE 50% 50 ML SYRINGE IV PRN (22:16)
[2024-03-24] MEDS ORDERED: HYDROmorphone INJ 0.5 MG/0.5 ML SYR IV PRN (22:16)
[2024-03-24] MEDS: SODIUM CHLORIDE 0.9% 1,000 ML IV SCH (22:58)
[2024-03-24] MEDS: VALSARTAN/SACUBITRIL 26/24MG TAB PO SCH (23:16)
[2024-03-24] MEDS: METOPROLOL TARTRATE 25 MG TAB PO SCH (23:16)
[2024-03-24] MEDS: busPIRone 5 MG TAB PO SCH (23:16)
[2024-03-24] MEDS: ATORVASTATIN 40 MG TAB PO SCH (23:16)
[2024-03-24] MEDS: MAGNESIUM CHLORIDE W/CALCIUM 64MG DELAYED REL TAB PO SCH (23:16)
[2024-03-24] MEDS: CALCIUM CARBONATE 500 MG CHEWABLE TAB PO SCH (23:18)
--- NOTE | 2024-03-25 00:45 | CT Scan Report ---
Exam(s): CTA CHEST IV Amt: 119 cc opti 320 EXAM: CT Angiography Chest With Intravenous Contrast CLINICAL HISTORY: Reason for exam: PE. TECHNIQUE: Axial computed tomographic angiography images of the chest with intravenous contrast. CTDI is 11.38 mGy and DLP is 452.74 mGy-cm. Automated exposure control was utilized for the study. A dose lowering technique was utilized adhering to the principles of ALARA. MIP reconstructed images were created and reviewed. COMPARISON: No relevant prior studies available. FINDINGS: Pulmonary arteries: Unremarkable. No pulmonary embolism. Aorta: Atherosclerotic changes of the aorta. No thoracic aortic aneurysm. Lungs: Unremarkable. No mass. No consolidation. Pleural space: Unremarkable. No significant effusion. No pneumothorax. Heart: Unremarkable. No cardiomegaly. No significant pericardial effusion. No evidence of RV dysfunction. Bones/joints: Sclerosis of the osseous structures, concerning for diffuse metastasis. Correlate for history of prostate cancer. Degenerative changes of the spine. No acute fracture. No dislocation. Soft tissues: Unremarkable. Lymph nodes: Unremarkable. No enlarged lymph nodes. IMPRESSION: Sclerosis of the osseous structures, concerning for diffuse metastasis. Correlate for history of prostate cancer. Electronically signed by: Michael Nix MD 03/25/24 00:44 AM
[2024-03-25] MEDS: MoRPHine SULFATE IR 15 MG TAB (IMMEDIATE RELEASE) PO PRN (01:57)
[2024-03-25] MEDS: DOXYCYCLINE HYCLATE 100 MG in DEXTROSE 5% MINI-B 100 ML IV SCH (01:57)
[2024-03-25] MEDS: INSULIN ASPART PER UNIT CHARGE SC SCH (04:45)
[2024-03-25] MEDS: POTASSIUM PHOSPHATE MONOBASIC 500 MG TAB PO SCH (04:46)
--- NOTE | 2024-03-25 06:12 | History & Physical Report ---
Date of Service March 24, 2024 Assessment & Plan (1) Generalized weakness: Plan: 63-year-old male with past medical history significant for metastatic prostate cancer on chemo currently getting radiation treatment, type 2 diabetes peripheral artery disease, heart failure reduced ejection fraction, hypertension, CKD stage III, history of CVA, history of tobacco use disorder, history of left common carotid artery stent placement,History of ureteral stents and who was was recently in the hospital for hematuria and received PRBC transfusions and urology offered radiation vs nephrostomy tubes to divert urine from bladder and patient opted for trial radiation and if unsuccessful plan to go for nephrostomy placement and aspirin Plavix were held at time comes today because feeling generalized weakness, poor appetite, loss of weight ,some confusion and because of the weakness was not going to radiation for the last 1 week. Patient was having a lot of pain in the prostate region and received IV Dilaudid in the ER. Currently patient is groggy. is in the room. states at home patient has slight confusion but current grogginess is from Dilaudid. Patient is able to answer some simple questions. Denies any chest pain. Has some shortness of breath. Has cough. No fevers. Has a lot of pain in the pelvic and prostate region. Still has hematuria but this is reducing as per the . Moved his bowels. Hemodynamics are okay currently. When asked about the CODE STATUS patient and still wanted to be full code but they are okay to discuss with palliative care. is also asking if we need to be started back on aspirin and Plavix because she is worried about the stroke and she is okay to wait until urology evaluation in the morning generalized weakness . Metastatic prostate cancer elevated lactic acid most likely from metastatic cancer poor appetite losing weight ambulatory dysfunction empirically placed on Zosyn and Doxy. will follow cultures CTA chest shows no PE but diffuse metastasis missed Radiation treatments last week because of weakness Consult palliative care elevated lactic acid IV fluids empiric antibiotics follow cultures follow repeat labs metastatic prostate cancer hematuria currently having radiation treatment but did not go for last week because of weakness urology consulted to help with decision to if need to restart aspirin Plavix and is worried about stroke previously on chemo (discontinued in November), received first dose of Pluvicto treatment at [facility], received for the first time 01/03/22 but subsequent treatment was postponed due to anemia follow-up with urology and hematology and oncology and radiation/ oncology elevated troponin mostly demand ischemia seems chronic elevation will follow serial enzymes chronic anemia hemoglobin 7 last admission required PRBC transfusion will follow labs obstructive uropathy s/p TURP on 02/17 on Flomax. hypertension metoprolol and Entresto with holding parameters chronic systolic CHF echo from 08/2023 shows EF of 48% seems improved from previous getting fluids On metoprolol and Entresto monitor for volume overload severe protein calorie malnutrition frail and cachectic dietitian consult when more stable type 2 diabetes HbA1c 6.3 in November 2003 follow repeat A1c levels hold home p.o. medications sliding scale peripheral artery disease left carotid stenosis s/p TCAR currently aspirin Plavix held because of hematuria On statin history of right MCA stroke 2019 on statin. aspirin Plavix held currently ongoing tobacco abuse seems smoking 1 to 2 cigarettes daily counseling. chronic pain pain control DVT prophylaxis SCDs for now disposition med/telemetry full code as per my discussion with the patient and History of Present Illness Chief Complaint: weakness Primary Care Provider: Dru Fritz MD 63-year-old male with past medical history significant for metastatic prostate cancer on chemo currently getting radiation treatment, type 2 diabetes peripheral artery disease, heart failure reduced ejection fraction, hypertension, CKD stage III, history of CVA, history of tobacco use disorder, history of left common carotid artery stent placement,History of ureteral stents and who was was recently in the hospital for hematuria and received PRBC transfusions and urology offered radiation vs nephrostomy tubes to divert urine from bladder and patient opted for trial radiation and if unsuccessful plan to go for nephrostomy placement and aspirin Plavix were held at time comes today because feeling generalized weakness, poor appetite, loss of weight ,some confusion and because of the weakness was not going to radiation for the last 1 week. Patient was having a lot of pain in the prostate region and received IV Dilaudid in the ER. Currently patient is groggy. is in the room. states at home patient has slight confusion but current grogginess is from Dilaudid. Patient is able to answer some simple questions. Denies any chest pain. Has some shortness of breath. Has cough. No fevers. Has a lot of pain in the pelvic and prostate region. Still has hematuria but this is reducing as per the . Moved his bowels. Hemodynamics are okay currently. When asked about the CODE STATUS patient and still wanted to be full code but they are okay to discuss with palliative care. is also asking if we need to be started back on aspirin and Plavix because she is worried about the stroke and she is okay to wait until urology evaluation in the morning Past medical history. As mentioned above.> Past surgical history. Left carotid stent placement. TURP Social history. . Smoked on average 0.5 pack a day for 30 years. Currently smoking 1 to 2 cigarettes daily. Alcohol rarely. Has medical marijuana card, Which is as per the . family history. Mother had diabetes. Hypertension. Father had heart disorder. Lung disorder. Allergies Allergy/AdvReac Type Severity Reaction Status Date / Time amoxicillin [From Augmentin] AdvReac Intermediate DIZZINESS/C Verified 03/17/24 13:50 ONFUSION clavulanic acid AdvReac Intermediate DIZZINESS/C Verified 03/17/24 13:50 [From Augmentin] ONFUSION codeine AdvReac Intermediate Gastrointestinal Verified 03/17/24 13:50 Upset Home Medications Medication Instructions Recorded Confirmed Type atorvastatin 80 mg tablet 80 mg PO QPM 04/23/19 03/24/24 History empagliflozin 25 mg tablet 25 mg PO QAM 05/31/21 03/24/24 History (Jardiance) aspirin 81 mg tablet,delayed 81 mg PO QAM #30 tabs 06/03/21 03/24/24 Rx release acetaminophen 500 mg tablet 500 - 1,000 mg PO Q6H PRN Pain 12/06/22 03/24/24 Hi story (Tylenol Extra Strength) clopidogrel 75 mg tablet 75 mg PO QAM 12/06/22 03/24/24 History denosumab 120 mg/1.7 mL (70 mg/mL) 120 mg subcut MONTHLY 12/06/22 03/24/24 History subcutaneous solution (Xgeva) linagliptin 5 mg tablet (Tradjenta) 5 mg PO QAM 12/06/22 03/24/24 History sacubitril 24 mg-valsartan 26 mg 1 tab PO BID 12/06/22 03/24/24 History tablet (Entresto) tramadol 50 mg tablet 150 mg PO BID pain 08/01/23 03/24/24 History morphine 15 mg immediate release 15 mg PO BID PRN Pain 01/11/24 03/24/24 History tablet ondansetron HCl 8 mg tablet 8 mg PO DIRECTED PRN Nausea 01/11/24 03/24/24 History potassium phosphate, monobasic 500 500 mg PO BID 01/11/24 03/24/24 History mg soluble tablet (K-Phos Original) prochlorperazine maleate 10 mg 10 mg PO DIRECTED PRN Nausea 01/11/24 03/24/24 History tablet (Compazine) morphine 15 mg tablet,extended 15 mg PO DAILY PRN Pain 02/15/24 03/24/24 History release calcitriol 0.25 mcg capsule 1 mcg (4 x 0.25 mcg) PO QAM #120 02/22/24 03/24/24 Rx caps calcium carbonate (Tums) 1,500 mg (7.5 x 200 mg calcium 02/22/24 03/24/24 Rx (500 mg)) PO TID #360 tabs cyanocobalamin (vitamin B-12) 500 1,000 mcg (2 x 500 mcg) PO QAM #60 02/22/24 03/24/24 Rx mcg tablet tabs ergocalciferol (vitamin D2) 1,250 1,250 mcg PO DAILY #30 caps 02/22/24 03/24/24 Rx mcg (50,000 unit) capsule ferrous sulfate 325 mg (65 mg 325 mg PO QAM #30 tabs 02/22/24 03/24/24 Rx iron) tablet,delayed release magnesium chloride 64 mg 64 mg PO BID #60 tabs 02/22/24 03/24/24 Rx (magnesium chloride) tablet,delayed release (Mag 64) metoprolol tartrate 25 mg tablet 12.5 mg (1/2 x 25 mg) PO BID #30 02/22/24 03/24/24 Rx tabs tamsulosin 0.4 mg capsule 0.4 mg PO QAM #30 caps 02/22/24 03/24/24 Rx buspirone 5 mg tablet 5 mg PO TID 03/11/24 03/24/24 History lidocaine HCl 2 % mucosal jelly in 1 ml EXT BID PRN Other 03/24/24 03/24/24 History applicator Past Med/Surg History Problem List (Updated 03/24/24 @ 22:04 by Background Renee) Elevated lactic acid level (Acute) Thrombocytopenia (Acute) Acute UTI (urinary tract infection) (Acute) Sepsis (Acute) Non-ST elevation DE (NSTEMI) (Acute) Generalized weakness (Acute) Palliative care by specialist Advanced care planning/counseling discussion Falls Pelvic pain in male Cancer related pain Anemia (Acute) Complication of Velasquez catheter (Acute) Hematuria (Acute) Hypocalcemia syndrome Bilateral hydronephrosis Abnormal blood electrolyte level Symptomatic anemia (Acute) History of CVA (cerebrovascular accident) HFrEF (heart failure with reduced ejection fraction) Acute on chronic anemia (Acute) Acute renal failure superimposed on stage 3 chronic kidney disease (Acute) Pancytopenia due to chemotherapy Adult failure to thrive (Acute) Elevated troponin (Acute) Prostate cancer metastatic to bone (Chronic) Prostate cancer Biopsy on 06/10/21 Tobacco abuse (Chronic) HLD (hyperlipidemia) (Chronic) HTN (hypertension) (Chronic) DM2 (diabetes mellitus, type 2) (Chronic) PAD (peripheral artery disease) BPH with obstruction/lower urinary tract symptoms (Acute) Medical History History of left heart catheterization (LHC) "cardiac cath 10-20% block" Stroke Surgical History History of left common carotid artery stent placement Family History Mother , in her 80s Myocardial infarction H/O cardiac surgery Diabetes Father , 58yo Myocardial infarction Lung disease 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 Brother No problems noted. Brother No problems noted. Brother No problems noted. Brother No problems noted. Daughter No problems noted. Son No problems noted. Son Diabetes Other Heart disease Hypertension Social History Smoking Status: Light tobacco smoker Tobacco Type: Cigarettes packs per day: 0.5; Cigarettes Per Day: pack per day; Second Hand Exposure: Yes; Do You Dip or Chew Tobacco: No; Tobacco Cessation Education Requested by Patient: No Hx Alcohol Use: Yes Alcohol type: beer Alcohol Intake Frequency: Monthly or Less Hx Substance Use: Yes Prescribed Medications: Marijuana Last Used Substance: Just Prior to Arrival Last Used Substance Other:: Use a marijuana vape pen several times a day. Preferred Language: Austrian Communication Ability: Effective Visual Impairment: No Limitations Hearing Ability: Normal Report Checker Required: No Beliefs That Will Affect Care: None marital status: Current Living Situation: Spouse Current Living Situation Comment: , daughter/her spouse current occupational status: retired Other Information That Helps Us Care for You: No Feels Safe at Home: Yes Safety Concerns: Feels Safe At This Time Diet: regular caffeine: No during the past year weight has: decreased > 10 lbs Assistive Devices: Walker Review of Systems Review of Systems: Unobtainable due to reduced consciousness Physical Exam Physical Exam: General- Drowsy.Frail Head- atraumatic Eyes- PERRL. ENT- oropharynx clear Neck- supple, no JVD. Lungs- clear to auscultation no wheezing or crackles. Heart- regular rhythm; no murmur, no gallop. Abdomen- normal bowel sounds, soft, nontender, no distension. Extremities- no erythema seen. Neuro- Drowsy. PERRL, EOMI; no facial palsy; no dysarthria; obeys simple commands. Results & Data Results & Data Vital Signs (Past 12 Hours) Vital Signs Temp Pulse Pulse Resp BP BP Pulse Ox 03/24/24 20:14 84 03/24/24 20:00 87 16 121/72 97 03/24/24 18:12 97 H 16 120/63 97 03/24/24 17:12 84 16 124/72 100 03/24/24 17:05 108 H 03/24/24 16:34 87 14 115/69 94 03/24/24 16:34 87 18 94 03/24/24 16:32 92 03/24/24 16:06 36.8 C 118 H 21 78/54 L 100 O2 Del Method 03/24/24 20:14 03/24/24 20:00 Room Air 03/24/24 18:12 Room Air 03/24/24 17:12 Room Air 03/24/24 17:05 03/24/24 16:34 Room Air 03/24/24 16:34 Room Air 03/24/24 16:32 Room Air 03/24/24 16:06 Room Air Diagnostic Findings Laboratory Results WBC 4.55 K/ul (4.8-10.8) L 03/25/24 06:13 RBC 2.01 M/uL (4.70-6.10) L 03/25/24 06:13 Hgb 5.5 g/dl (14.0-18.0) L* 03/25/24 06:13 Hct 17.9 % (42.0-52.0) L* 03/25/24 06:13 MCV 89.1 fL (80.0-100.0) 03/25/24 06:13 MCH 27.4 pg (25.0-34.0) 03/25/24 06:13 MCHC 30.7 g/dL (32.0-36.0) L 03/25/24 06:13 RDW Std Deviation 58.4 fL (36.4-46.3) H 03/25/24 06:13 RDW Coeff of Clara 18.0 % (11.5-14.5) H 03/25/24 06:13 Plt Count 42 K/uL (130-400) L 03/25/24 06:13 MPV 9.4 fL (9.4-12.4) 03/25/24 06:13 Absolute Nucleated RBC 0.06 K/uL (0.00-0.12) 03/25/24 06:13 Nucleated RBC % (auto) 1.3 % 03/25/24 06:13 Neutrophils % (Manual) 81 % 03/25/24 06:13 Lymphocytes % (Manual) 9 % 03/25/24 06:13 Monocytes % (Manual) 3 % 03/25/24 06:13 Metamyelocytes % (Man) 4 % 03/25/24 06:13 Myelocytes % (Man) 3 % 03/25/24 06:13 Neutrophils # (Manual) 3.69 K/uL (1.40-6.50) 03/25/24 06:13 Total Absolute Neuts 3.69 K/uL (1.4-6.5) 03/25/24 06:13 Lymphocytes # (Manual) 0.41 K/uL (1.2-3.4) L 03/25/24 06:13 Total Abs Lymphocytes 0.41 K/uL (1.2-3.4) L 03/25/24 06:13 Monocytes # (Manual) 0.14 K/uL (0.11-0.59) 03/25/24 06:13 Metamyelocytes # (Man) 0.18 K/uL (0-0) H 03/25/24 06:13 Myelocytes # (Manual) 0.14 K/uL (0-0) H 03/25/24 06:13 Anisocytosis Present 03/24/24 16:21 Tear Drop Cells 1+ 03/25/24 06:13 Sodium 140 mmol/L (136-145) 03/25/24 06:13 Potassium 4.0 mmol/L (3.5-5.1) 03/25/24 06:13 Chloride 112 mmol/L (98-107) H 03/25/24 06:13 Carbon Dioxide 19 mmol/L (21-32) L 03/25/24 06:13 Anion Gap 9 (3-11) 03/25/24 06:13 BUN 26 mg/dl (6-23) H 03/25/24 06:13 Creatinine 1.06 mg/dl (0.6-1.4) 03/25/24 06:13 Est Cr Clr Drug Dosing 51.8 ml/min 03/25/24 06:13 Est GFR ( Amer) 85.5 ml/min 03/25/24 06:13 Est GFR (Non-Af Amer) 73.8 ml/min 03/25/24 06:13 BUN/Creatinine Ratio 24.5 (10-20) H 03/25/24 06:13 Glucose 140 mg/dl (70-99(Fasting)) H 03/25/24 06:13 Lactate 4.1 mmol/L (0.4-2.0) H* 03/24/24 18:23 Calcium 7.9 mg/dl (8.6-10.3) L 03/25/24 06:13 Phosphorus 3.5 mg/dl (2.5-4.9) 03/25/24 06:13 Magnesium 2.2 mg/dl (1.7-2.4) 03/25/24 06:13 Total Bilirubin 0.6 mg/dl (0.2-1.0) 03/24/24 16:21 AST 32 U/L (13-39) 03/24/24 16:21 ALT 10 U/L (7-52) 03/24/24 16:21 Alkaline Phosphatase 1138 U/L (34-104) H 03/24/24 16:21 Troponin I High Sens 47.4 pg/ml (0-20) H D 03/25/24 06:13 Total Protein 7.6 gm/dl (6.0-8.3) 03/24/24 16:21 Albumin 3.8 gm/dl (3.4-5.0) 03/24/24 16:21 Globulin 3.8 gm/dl (2.5-4.0) 03/24/24 16:21 Albumin/Globulin Ratio 1.0 (0.9-2) 03/24/24 16:21 Procalcitonin 0.30 ng/ml (0-0.5) 03/24/24 16:21 Urine Color Yellow 03/24/24 17:35 Urine Appearance Cloudy (Clear) A 03/24/24 17:35 Urine pH 5.5 (4.5-7.5) 03/24/24 17:35 Ur Specific [place] 1.027 (1.000-1.030) 03/24/24 17:35 Urine Protein 2+ (Negative) H 03/24/24 17:35 Urine Glucose (UA) 3+ (Negative) H 03/24/24 17:35 Urine Ketones Negative (Negative) 03/24/24 17:35 Urine Blood 3+ (Negative) H 03/24/24 17:35 Urine Nitrite Negative (Negative) 03/24/24 17:35 Urine Bilirubin Negative (Negative) 03/24/24 17:35 Urine Urobilinogen Negative (Negative) 03/24/24 17:35 Ur Leukocyte Esterase 1+ (Negative) H 03/24/24 17:35 Urine WBC (Auto) >50 /hpf (0-5) H 03/24/24 17:35 Urine RBC (Auto) >20 /hpf (0-2) H 03/24/24 17:35 U Hyaline Cast (Auto) 3-5 /lpf (0-2) H 03/24/24 17:35 U Epithel Cells (Auto) 0-2 /hpf (0-2) 03/24/24 17:35 Urine Bacteria (Auto) None Seen (None Seen) 03/24/24 17:35 Blood Type A Positive 03/24/24 17:47 Antibody Screen NEGATIVE 03/24/24 17:47 Crossmatch See Detail 03/24/24 17:47 Impressions Ribs w/Chest X-Ray 03/24/24 16:09 SUPINE AP CHEST RADIOGRAPH AND RIGHT RIB SERIES CLINICAL HISTORY: recent fall, right rib pain COMPARISON: Chest radiograph February 15, 2024. PET/CT November 21, 2023. FINDINGS: No pneumothorax is identified on supine exam. No acute right-sided rib fractures are identified. Multiple skeletal sclerotic rib lesions are better depicted on prior PET/CT. Bilateral ureteral stents are partially imaged. IMPRESSION: 1. No pneumothorax identified on supine exam. No acute right-sided rib fractures. 2. Numerous skeletal metastases, as shown on prior PET/CT. ACT 112: Negative or not required by law. Electronically signed by: Antonio Jama M.D. 03/24/2024 5:39 PM Chest CTA 03/24/24 21:27 Exam(s): CTA CHEST IV Amt: 119 cc opti 320 EXAM: CT Angiography Chest With Intravenous Contrast CLINICAL HISTORY: Reason for exam: PE. TECHNIQUE: Axial computed tomographic angiography images of the chest with intravenous contrast. CTDI is 11.38 mGy and DLP is 452.74 mGy-cm. Automated exposure control was utilized for the study. A dose lowering technique was utilized adhering to the principles of ALARA. MIP reconstructed images were created and reviewed. COMPARISON: No relevant prior studies available. FINDINGS: Pulmonary arteries: Unremarkable. No pulmonary embolism. Aorta: Atherosclerotic changes of the aorta. No thoracic aortic aneurysm. Lungs: Unremarkable. No mass. No consolidation. Pleural space: Unremarkable. No significant effusion. No pneumothorax. Heart: Unremarkable. No cardiomegaly. No significant pericardial effusion. No evidence of RV dysfunction. Bones/joints: Sclerosis of the osseous structures, concerning for diffuse metastasis. Correlate for history of prostate cancer. Degenerative changes of the spine. No acute fracture. No dislocation. Soft tissues: Unremarkable. Lymph nodes: Unremarkable. No enlarged lymph nodes. IMPRESSION: Sclerosis of the osseous structures, concerning for diffuse metastasis. Correlate for history of prostate cancer. Electronically signed by: Michael Nix MD 03/25/24 00:44 AM ECG Additional Comments: ECG. Normal sinus rhythm with a rate of 92. Nonspecific ST abnormalities. Code Status & VTE Plan VTE Prophylaxis Plan VTE Prophylaxis will be ordered: Yes
--- NOTE | 2024-03-25 07:04 | Hospitalist Progress Note ---
Date of Service March 25, 2024 Assessment & Plan (1) Generalized weakness: Plan: Mr. Chaudhari is a 63 year old gentleman with history of metastatic prostate cancer on chemotherpay, DMTII, PAD, HFrEF, HTN, CKDIII, prior CVA, obstructive uropathy s/p TURP c/b ongoing hematuria found to have acute on chronic anemia iso hematuria and progressive malnutrition/weakness. . Patient reports weight loss and extreme stress over family dynamics. Patient expresses desire to just "do what [he] wants" and to spend the "last days not in pain." Patient reports ongoing stress with /daughter dynamics. Patient curious about hospice. Palliative consulted to discuss care plan--tentatively home with hospice. # generalized weakness #Severe protein calorie malnutrition #ambulatory dysfunction empirically placed on Zosyn and Doxy: lwill discontinue, no signs of infection CTA chest shows no PE but diffuse metastasis missed Radiation treatments last week because of weakness Consult palliative care -DNR/DNI -Discussing hospice with daughter this evening -Appreciate further recommendations -Liberalized diet -Permission for outdoor walk with #elevated lactic acid IV fluids, likely iso blood loss, poor intake resolved #Acute on chronic anemia, multifactorial Multifactorial: chemo, ongoing hematuria Continue ferrous sulfate, b12 transfuse < 7 #Gross Hematuria #Chronic rain placement Urology following #Adenocarcinoma of prostate with bladder involvement #Recent obstructive uropathy s/p TURP 02/23/2024 #Metastatic Prostate Cancer Diagnosed 2020, completed casodex; Xtandi, then to taxotere/prednisone EOT 11/2023 Now on Eligard q [address] Novak; Xgeva q6 weeks, held 2/2 hypocalcemia/hypophosphatemia; pluvicto on hold 2/2 anemia/hematuria Follows Dr. Elio Queen, last visit 03/06 # elevated troponin mostly demand ischemia, chronically elevated No chest pain/ACS concerns # obstructive uropathy s/p TURP on 02/17 on Flomax. #hypertension metoprolol continued d/c entresto 2/2 hypotension #chronic systolic CHF echo from 08/2023 shows EF of 48% seems improved from previous getting fluids On metoprolol discontinue Entresto monitor for volume overload #type 2 diabetes HbA1c 6.3 in November 2003 follow repeat A1c levels hold home p.o. medications sliding scale #peripheral artery disease left carotid stenosis s/p TCAR currently aspirin Plavix held because of hematuria On statin # history of right MCA stroke 2019 on statin. aspirin Plavix held currently #ongoing tobacco abuse seems smoking 1 to 2 cigarettes daily counseling. # chronic pain analgesia resumed, adjustment per palliative recommendations DVT prophylaxis SCDs for now disposition med/telemetry--travel off unit, permissible for walk with DNR/DNI per palliative discussions: dispo contingent on confirmation of home w/ hospice tomorrow Admission and Anticipated Discharge Date Admission Date: March 24, 2024 Subjective Reports feeling miserable, states he isn't sure he wants to continue this path of aggressive treatment Reports overwhelming guilt as daughter says "dont do this to me" when he wishes to not go further with treatment Denies active concerns, reports marginal improvement but overall states he knows he "is dying" Physical Exam Constitutional: frail cachetic ENMT: dry mucous membranes Respiratory: normal respiratory effort, lungs clear to auscultation Cardiovascular: WILFRED, RRR Neurologic: PERRL, EOMI, accommodation nl, no face palsy, no dysarthria Results & Data Results & Data Vital Signs (Past 12 Hours) Vital Signs Pulse Pulse Resp BP Pulse Ox Pulse Ox O2 Del Method 03/25/24 00:52 106 H 16 117/55 L 100 03/24/24 23:37 95 H 03/24/24 22:38 103 H 14 100 Room Air 03/24/24 22:37 104 H 14 104/81 100 Room Air 03/24/24 22:16 100 03/24/24 20:14 84 03/24/24 20:00 87 16 121/72 97 Room Air O2 Del Method 03/25/24 00:52 03/24/24 23:37 03/24/24 22:38 03/24/24 22:37 03/24/24 22:16 Room Air 03/24/24 20:14 03/24/24 20:00
[2024-03-25 07:13] LABS: Hematocrit (blood only) 17.9 % (42.0-52.0); Hemoglobin 5.5 g/dl (14.0-18.0); Mean Corpuscular Hemoglobin 27.4 pg (25.0-34.0); Mean Corpuscular Hgb Conc 30.7 g/dL (32.0-36.0); Mean Corpuscular Volume 89.1 fL (80.0-100.0); Mean Platelet Volume 9.4 fL (9.4-12.4); Nucleated RBC # (auto) 0.06 K/uL (0.00-0.12); Nucleated RBC % (auto) 1.3 %; Platelet Count 42 K/uL (130-400); RDW Standard Deviation 58.4 fL (36.4-46.3); Red Blood Count 2.01 M/uL (4.70-6.10); White Blood Count 4.55 K/ul (4.8-10.8)
[2024-03-25 07:15] LABS: BUN Creatinine Ratio 24.5 (10-20); Calcium 7.9 mg/dl (8.6-10.3); Creatinine Clr Calc Pharmacy 51.8 ml/min; Est GFR (African American) 85.5 ml/min; Est GFR (Non-African American) 73.8 ml/min; Magnesium 2.2 mg/dl (1.7-2.4); Phosphorus 3.5 mg/dl (2.5-4.9)
[2024-03-25] MEDS ORDERED: SODIUM CHLORIDE 0.9% 250 ML IV PRN ×3 (07:15→23:14)
[2024-03-25 07:25] LABS: Troponin I High Sensitivity 47.4 pg/ml (0-20)
[2024-03-25] MEDS: PIPERACILLIN/TAZOBACTAM 4.5 GM in DEXTROSE 5% MINI-B 100 ML IV SCH ×3 (07:30→16:52)
[2024-03-25 07:36] LABS: ALC (manual) 0.41 K/uL (1.2-3.4); ANC (manual) 3.69 K/uL (1.4-6.5); Lymphocytes # (manual) 0.41 K/uL (1.2-3.4); Lymphocytes % (manual) 9 %; Metamyelocytes # (manual) 0.18 K/uL (0-0); Metamyelocytes % (manual) 4 %; Monocytes # (manual) 0.14 K/uL (0.11-0.59); Monocytes % (manual) 3 %; Myelocytes # (manual) 0.14 K/uL (0-0); Myelocytes % (manual) 3 %; Neutrophils # (manual) 3.69 K/uL (1.40-6.50); Neutrophils % (manual) 81 %; Tear Drop Cells 1+
[2024-03-25] MEDS: PIPER/TAZO 4.5g in D5W MINI-B 100 ML IV ONE (08:10)
[2024-03-25] MEDS: FERROUS SULFATE 325 MG TAB PO SCH (09:52)
[2024-03-25] MEDS: TAMSULOSIN HCL 0.4 MG CAP PO SCH (09:52)
[2024-03-25] MEDS: ERGOCALCIFEROL 1250 MCG (50,000 UNITS) CAP PO SCH (09:52)
[2024-03-25] MEDS: CYANOCOBALAMIN (B-12) 500 MCG TABLET PO SCH (09:52)
[2024-03-25] MEDS: CALCITRIOL 0.25 MCG CAPSULE PO SCH (09:53)
--- NOTE | 2024-03-25 12:04 | Urology Consultation ---
Date of Consultation March 25, 2024 Assessment & Plan (1) Hematuria: (2) Prostate cancer: (3) Generalized weakness: Plan 63yo/M with a hx of metastatic prostate cancer on chemo currently getting radiation treatment and hx bilateral ureteral stent placement 02/18/24 admitted with generalized weakness, anemia, hematuria. Urology consulted for metastatic prostate cancer and hematuria. - Pt afebrile, VSS. - Labs today - WBC 4.55, creatinine 1.06, hemoglobin 5.5 (receiving PRBC transfusion). - Urine and blood cultures pending. On Zosyn and Doxy. - Pt reports he is voiding spontaneously without issue. He reports some mild hematuria without clot. No urine available to assess at time of exam. - Question if hematuria is the source of his anemia as hematuria alone does not usually cause such a drop in hgb/hct. - Recommend continued monitoring of ability to void and bladder scans to ensure he is emptying. - As long as he is emptying, will avoid catheter placement as this may cause further irritation in addition to the ureteral stents. - Continue antibiotics and tailor as culture data becomes available. - Continue to trend labs. Transfuse as felt necessary per primary team. - Anticoagulation on hold per primary team. - Continues on tamsulosin - No acute intervention warranted. - Urology will follow. Plan reviewed with Dr. Epps, on-call urologist. History of Present Illness Attending Physician: Sia Vergara MD History of Present Illness 63-year-old male with past medical history significant for metastatic prostate cancer on chemo currently getting radiation treatment who presented to the ED yesterday with generalized weakness and lethargy. Per chart review patient reported generalized weakness, poor appetite, weight loss, and some confusion and because of the weakness was not going to radiation for the past week. Patient was admitted to medicine service for continued care and management. CTA chest showing no PE but diffuse metastasis. No new abd/pelvis imaging. Urine and blood cultures were collected. He was started on empiric Doxy and Zosyn. Aspirin and Plavix remain on hold. Urology consulted for metastatic prostate cancer and hematuria. Hx of metastatic prostate cancer. Follows with Dr. Queen and Dr. Novak. Hospitalized 02/14-02/21 with obstructive uropathy. S/P Transurethral resection of prostate mass, TURBT and Bilateral stent placement 02/18/[address] Chaudhari. Hospitalized again 02/22-03/04 with persistent hematuria. At that time, pt elected to proceed with palliative radiation to the bladder. Velasquez catheter was removed prior to his discharge. Pt seen at bedside this AM in the ED. Awake, resting in bed on arrival. No acute distress. Nurse at bedside. He reports mild hematuria with voiding. Denies clots. He feels hematuria has improved. Feels he is emptying his bladder well. He has not had f/u with urologist since last admission per his report. Allergies Allergy/AdvReac Type Severity Reaction Status Date / Time amoxicillin [From Augmentin] AdvReac Intermediate DIZZINESS/C Verified 03/17/24 13:50 ONFUSION clavulanic acid AdvReac Intermediate DIZZINESS/C Verified 03/17/24 13:50 [From Augmentin] ONFUSION codeine AdvReac Intermediate Gastrointestinal Verified 03/17/24 13:50 Upset Home Medications Medication Instructions Recorded Confirmed Type atorvastatin 80 mg tablet 80 mg PO QPM 04/23/19 03/24/24 History empagliflozin 25 mg tablet 25 mg PO QAM 05/31/21 03/24/24 History (Jardiance) aspirin 81 mg tablet,delayed 81 mg PO QAM #30 tabs 06/03/21 03/24/24 Rx release acetaminophen 500 mg tablet 500 - 1,000 mg PO Q6H PRN Pain 12/06/22 03/24/24 History (Tylenol Extra Strength) clopidogrel 75 mg tablet 75 mg PO QAM 12/06/22 03/24/24 History denosumab 120 mg/1.7 mL (70 mg/mL) 120 mg subcut MONTHLY 12/06/22 03/24/24 History subcutaneous solution (Xgeva) linagliptin 5 mg tablet (Tradjenta) 5 mg PO QAM 12/06/22 03/24/24 History sacubitril 24 mg-valsartan 26 mg 1 tab PO BID 12/06/22 03/24/24 History tablet (Entresto) tramadol 50 mg tablet 150 mg PO BID pain 08/01/23 03/24/24 History morphine 15 mg immediate release 15 mg PO BID PRN Pain 01/11/24 03/24/24 History tablet ondansetron HCl 8 mg tablet 8 mg PO DIRECTED PRN Nausea 01/11/24 03/24/24 History potassium phosphate, monobasic 500 500 mg PO BID 01/11/24 03/24/24 History mg soluble tablet (K-Phos Original) prochlorperazine maleate 10 mg 10 mg PO DIRECTED PRN Nausea 01/11/24 03/24/24 History tablet (Compazine) morphine 15 mg tablet,extended 15 mg PO DAILY PRN Pain 02/15/24 03/24/24 History release calcitriol 0.25 mcg capsule 1 mcg (4 x 0.25 mcg) PO QAM #120 02/22/24 03/24/24 Rx caps calcium carbonate (Tums) 1,500 mg (7.5 x 200 mg calcium 02/22/24 03/24/24 Rx (500 mg)) PO TID #360 tabs cyanocobalamin (vitamin B-12) 500 1,000 mcg (2 x 500 mcg) PO QAM #60 02/22/24 03/24/24 Rx mcg tablet tabs ergocalciferol (vitamin D2) 1,250 1,250 mcg PO DAILY #30 caps 02/22/24 03/24/24 Rx mcg (50,000 unit) capsule ferrous sulfate 325 mg (65 mg 325 mg PO QAM #30 tabs 02/22/24 03/24/24 Rx iron) tablet,delayed release magnesium chloride 64 mg 64 mg PO BID #60 tabs 02/22/24 03/24/24 Rx (magnesium chloride) tablet,delayed release (Mag 64) metoprolol tartrate 25 mg tablet 12.5 mg (1/2 x 25 mg) PO BID #30 02/22/24 03/24/24 Rx tabs tamsulosin 0.4 mg capsule 0.4 mg PO QAM #30 caps 02/22/24 03/24/24 Rx buspirone 5 mg tablet 5 mg PO TID 03/11/24 03/24/24 History lidocaine HCl 2 % mucosal jelly in 1 ml EXT BID PRN Other 03/24/24 03/24/24 History applicator Patient History Medical History History of left heart catheterization (LHC) "cardiac cath 4-02/04 10-20% block" Stroke Surgical History History of left common carotid artery stent placement Family History Mother , in her 80s Myocardial infarction H/O cardiac surgery Diabetes Father , 58yo Myocardial infarction Lung disease 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 Brother No problems noted. Brother No problems noted. Brother No problems noted. Brother No problems noted. Daughter No problems noted. Son No problems noted. Son Diabetes Other Heart disease Hypertension Social History Smoking Status: Light tobacco smoker Tobacco Type: Cigarettes packs per day: 0.5; Cigarettes Per Day: pack per day; Second Hand Exposure: Yes; Do You Dip or Chew Tobacco: No; Tobacco Cessation Education Requested by Patient: No Hx Alcohol Use: Yes Alcohol type: beer Alcohol Intake Frequency: Monthly or Less Hx Substance Use: Yes Prescribed Medications: Marijuana Last Used Substance: Just Prior to Arrival Last Used Substance Other:: Use a marijuana vape pen several times a day. Preferred Language: Serbian Communication Ability: Effective Visual Impairment: No Limitations Hearing Ability: Normal Director Of Compensation Required: No Beliefs That Will Affect Care: None marital status: Current Living Situation: Spouse Current Living Situation Comment: , daughter/her spouse current occupational status: retired Other Information That Helps Us Care for You: No Feels Safe at Home: Yes Safety Concerns: Feels Safe At This Time Diet: regular caffeine: No during the past year weight has: decreased > 10 lbs Assistive Devices: Walker and Other Review of Systems Review of Systems: All systems reviewed & are unremarkable except as noted in HPI & below Physical Exam Constitutional: + ill appearing and + frail appearing Neck: normal visual inspection Respiratory: no respiratory distress and no labored breathing Musculoskeletal: Head/Neck/Chest: normocephalic Skin: No visible rashes to exposed skin areas Neurologic: awake Psychiatric: Orientation: alert Results & Data Vital Signs (Past 12 Hours) Vital Signs Temp Pulse Pulse Resp BP BP Pulse Ox 03/25/24 11:34 36.8 C 75 18 112/63 99 03/25/24 10:07 36.4 C L 86 20 130/73 100 03/25/24 09:45 118/62 03/25/24 09:45 87 16 100 03/25/24 09:39 78 27 H 100 03/25/24 09:25 121/68 03/25/24 09:25 121/68 03/25/24 09:21 93 H 18 100 03/25/24 09:20 117/91 03/25/24 09:11 112/84 03/25/24 09:09 75 17 100 03/25/24 09:07 36.6 C 77 20 103/79 03/25/24 09:05 103/79 03/25/24 09:05 103/79 03/25/24 09:00 119/64 03/25/24 09:00 119/64 03/25/24 09:00 119/64 03/25/24 09:00 78 20 100 03/25/24 08:57 79 21 100 03/25/24 08:55 123/74 03/25/24 08:55 123/74 03/25/24 08:55 123/74 03/25/24 08:50 129/74 03/25/24 08:45 145/78 H 03/25/24 08:45 145/78 H 03/25/24 08:42 90 18 100 03/25/24 08:40 136/81 03/25/24 08:40 136/81 03/25/24 08:37 36.6 C 86 19 145/78 H 100 03/25/24 08:36 92 H 13 100 03/25/24 08:35 132/86 03/25/24 08:35 132/86 03/25/24 08:33 96 H 17 100 03/25/24 08:30 130/79 03/25/24 08:30 130/79 03/25/24 08:30 130/79 03/25/24 08:25 123/78 03/25/24 08:25 123/78 03/25/24 08:22 36.5 C 89 18 117/79 03/25/24 08:20 117/79 03/25/24 08:20 117/79 03/25/24 08:15 124/64 03/25/24 08:15 124/64 03/25/24 08:15 124/64 03/25/24 08:11 109/58 L 03/25/24 08:11 109/58 L 06/25/24 08:11 109/58 L 03/25/24 08:09 79 19 100 03/25/24 08:08 117/68 03/25/24 08:07 36.6 C 85 15 120/74 100 03/25/24 08:03 85 15 100 03/25/24 08:01 120/74 03/25/24 08:01 120/74 03/25/24 07:45 113/74 03/25/24 07:45 113/74 03/25/24 07:45 113/74 03/25/24 07:30 115/72 03/25/24 07:30 115/72 03/25/24 07:18 94 H 19 100 03/25/24 07:15 105 H 18 100 03/25/24 07:15 107/63 03/25/24 07:15 107/63 03/25/24 07:12 100 03/25/24 07:00 110/87 03/25/24 07:00 110/87 03/25/24 07:00 110/87 03/25/24 07:00 110/87 03/25/24 07:00 110/87 03/25/24 07:00 110/87 03/25/24 06:51 100 03/25/24 06:45 100 03/25/24 06:45 115/63 03/25/24 06:45 115/63 03/25/24 06:45 115/63 03/25/24 06:45 115/63 03/25/24 06:42 100 03/25/24 06:30 115/76 03/25/24 06:30 115/76 03/25/24 06:30 115/76 03/25/24 06:30 115/76 03/25/24 06:30 115/76 03/25/24 06:30 115/76 03/25/24 06:30 115/76 03/25/24 06:24 100 03/25/24 06:21 100 03/25/24 06:15 116/66 03/25/24 06:15 116/66 03/25/24 06:15 116/66 03/25/24 06:15 116/66 03/25/24 06:15 116/66 03/25/24 06:15 116/66 03/25/24 06:12 100 03/25/24 06:03 100 03/25/24 06:01 126/49 L 03/25/24 06:01 126/49 L 03/25/24 06:01 126/49 L 03/25/24 06:01 126/49 L 03/25/24 06:01 126/49 L 03/25/24 06:01 126/49 L 03/25/24 05:51 100 03/25/24 05:45 116/75 03/25/24 05:45 116/75 03/25/24 05:45 116/75 03/25/24 05:36 100 03/25/24 05:30 122/71 03/25/24 05:30 122/71 03/25/24 00:52 106 H 16 117/55 L 100 O2 Del Method 03/25/24 11:34 Room Air 03/25/24 10:07 03/25/24 09:45 03/25/24 09:45 03/25/24 09:39 03/25/24 09:25 03/25/24 09:25 03/25/24 09:21 03/25/24 09:20 03/25/24 09:11 03/25/24 09:09 03/25/24 09:07 03/25/24 09:05 03/25/24 09:05 03/25/24 09:00 03/25/24 09:00 03/25/24 09:00 03/25/24 09:00 03/25/24 08:57 03/25/24 08:55 03/25/24 08:55 03/25/24 08:55 03/25/24 08:50 03/25/24 08:45 03/25/24 08:45 03/25/24 08:42 03/25/24 08:40 03/25/24 08:40 03/25/24 08:37 03/25/24 08:36 03/25/24 08:35 03/25/24 08:35 03/25/24 08:33 03/25/24 08:30 03/25/24 08:30 03/25/24 08:30 03/25/24 08:25 03/25/24 08:25 03/25/24 08:22 03/25/24 08:20 03/25/24 08:20 03/25/24 08:15 03/25/24 08:15 03/25/24 08:15 03/25/24 08:11 03/25/24 08:11 03/25/24 08:11 03/25/24 08:09 03/25/24 08:08 03/25/24 08:07 03/25/24 08:03 03/25/24 08:01 03/25/24 08:01 03/25/24 07:45 03/25/24 07:45 03/25/24 07:45 03/25/24 07:30 03/25/24 07:30 03/25/24 07:18 03/25/24 07:15 03/25/24 07:15 03/25/24 07:15 03/25/24 07:12 03/25/24 07:00 03/25/24 07:00 03/25/24 07:00 03/25/24 07:00 03/25/24 07:00 03/25/24 07:00 03/25/24 06:51 03/25/24 06:45 03/25/24 06:45 03/25/24 06:45 03/25/24 06:45 03/25/24 06:45 03/25/24 06:42 03/25/24 06:30 03/25/24 06:30 03/25/24 06:30 03/25/24 06:30 03/25/24 06:30 03/25/24 06:30 03/25/24 06:30 03/25/24 06:24 03/25/24 06:21 03/25/24 06:15 03/25/24 06:15 03/25/24 06:15 03/25/24 06:15 03/25/24 06:15 03/25/24 06:15 03/25/24 06:12 03/25/24 06:03 03/25/24 06:01 03/25/24 06:01 03/25/24 06:01 03/25/24 06:01 03/25/24 06:01 03/25/24 06:01 03/25/24 05:51 03/25/24 05:45 03/25/24 05:45 03/25/24 05:45 03/25/24 05:36 03/25/24 05:30 03/25/24 05:30 03/25/24 00:52 PG Care Time/CCT Total # of Minutes Spent Total Time Spent with Patient: Total time spent is greater than 50% in coordination of care (as documented) at patient's floor/unit and/or counseling patient: Coding Level of Care Code 37771 IN/OBS CONSULT LVL 4,60M Diagnoses Hematuria R31.9 Hematuria type: unspecified type Prostate cancer C61 Generalized weakness R53.1 (1) Hematuria Hematuria type: unspecified type Qualified Code(s): R31.9 - Hematuria, unspec ified
[2024-03-25 19:23] LABS: Hematocrit (blood only) 20.3 % (42.0-52.0); Hemoglobin 6.4 g/dl (14.0-18.0); Mean Corpuscular Hemoglobin 27.7 pg (25.0-34.0); Mean Corpuscular Hgb Conc 31.5 g/dL (32.0-36.0); Mean Corpuscular Volume 87.9 fL (80.0-100.0); Mean Platelet Volume 10.9 fL (9.4-12.4); Nucleated RBC # (auto) 0.04 K/uL (0.00-0.12); Platelet Count 42 K/uL (130-400); RDW Coefficient of Variation 16.9 % (11.5-14.5); RDW Standard Deviation 54.4 fL (36.4-46.3); Red Blood Count 2.31 M/uL (4.70-6.10); White Blood Count 3.97 K/ul (4.8-10.8)
[2024-03-25] MEDS: ACETAMINOPHEN 325 MG TAB PO ONE (20:16)
[2024-03-25] MEDS ORDERED: HYDROmorphone INJ 0.5 MG/0.5 ML SYR IV PRN (22:33)
[2024-03-25] MEDS ORDERED: HYDROmorphone INJ 1 MG/ML SYRINGE IV PRN (22:33)
--- NOTE | 2024-03-25 22:46 | Palliative Care Consultation ---
Date of Consultation March 25, 2024 Assessment & Plan (1) Cancer related pain: Patient has been using MS IR 15 mg tablets at home without any relief. I have ordered a trial of Dilaudid 0.5 and 1 mg IV doses every 2 hours as needed for both moderate and severe pain to determine what his true opioid use will be the next 24 hours. Then this can be calculated out to long-term oral opioid transition with both long and short acting formulations for him to continue at home. Bowel regimen ordered. (2) Dyspnea and respiratory abnormalities: (3) Generalized weakness: (4) Advanced care planning/counseling discussion: A 45-minute [id number] advance care planning discussion was held with patient and his at the bedside. He shares that his daughter has never left the home and has lived with them her entire life, she is currently in her mid 30s. She has been taking the news of his illness and his generalized decline very hard and has not been able to except that he may not improve. He admits to at times feeling emotionally manipulated by his family who tell him that he has to "fight for them if he loves them and do what it takes to get better." We discussed the findings of his progressive cancer and the fact that he has significant bone marrow disease. We discussed how bone marrow infiltration of cancer leads to low cell counts which are persistent in his situation and as a result, no chemotherapy can be undertaken. It has been over 4 months since he has had chemotherapy and his disease continues to progress, his performance status continues to decline, and overall he is getting weaker and more cachectic. We discussed that the likelihood he will be able to resume chemo with any sort is not possible at this junction given the prolonged bone marrow infiltration, declining performance status and worsening overall symptomology. He states that he feels his time is coming to an end and he wants to focus more on the quality of his life and be at home. When asked what would be too important priorities for him at this time he reported being with his family and having better relief of his pain. We discussed the option of returning home with the addition of home hospice which both he and his are agreeable to. We also discussed CODE STATUS and he reaffirms a no code preference indicating that he does not wish to on machines or be tethered to artificial life support at the end of his life. He wants to make the most of what ever time he may have with his family and be in his own home and he is extremely clear he does not wish to be in a fci, which his reaffirms and reassurance will never happen. expresses concern that their daughter will have a very hard time accepting his mortality and notes that she has issues with anger and outbursts. I offered to facilitate another discussion with them as a family tomorrow if desired, however, indicates that it might be easier if she just presents the information to her daughter by themselves tonight and allow her some time to come to acceptance. I did advise them both that I discussed his case with his primary oncologist, Dr. Queen at [facility], who is also in agreement for the recommendation of a transition to a more comfort and quality of life focused plan of care with the addition of home hospice. They were both appreciative and thankful for this advice. All questions were answered to their apparent satisfaction. They are in agreement with the plan as recognized above. (5) Palliative care by specialist: Plan As above. No hospice agency preference, family asks that there agency recommended [facility] that services the region quite routinely. Thank you for allowing us to participate in the ongoing care of this patient. Please page with any additional concerns. Jeremiah Ledezma DNP Director, Palliative Medicine History of Present Illness Reason for Consultation: Progressive metastatic prostate cancer, ongoing frailty, declining performance status, please evaluate for cancer related pain management and goals of care Attending Physician: Sia Vergara MD History of Present Illness 63-year-old gentleman who is followed by Dr. Queen at [facility] oncology with metastatic prostate cancer with significant bone mets as well as bone marrow infiltration. Unfortunately, due to the progressiveness of his bone marrow infiltration, his counts continue to remain very low and he has not been able to have chemotherapy for over 4 months. His frailty continues to worsen, his performance status continues to worsen, he is cachectic and profoundly weak. He has baseline dyspnea and he is uncomfortable with any exertion. He is able to move around his house with the use of a walker but reports that even distances of 5 to 10 feet are exhausting. He lives at home together with his of 45 years and there 34-year-old daughter whom he reports is having a very hard time accepting his diagnosis/prognosis/mortality at home has never lived anywhere but at home with them. At the time of my visit, patient is significant distress, with increased pain. He is very cachectic. He is sitting at the very far edge of his bed with his feet dangling over and is making at the time I entered the room and states he needs to use the bathroom. Assistance provided and privacy given. Allergies Allergy/AdvReac Type Severity Reaction Status Date / Time amoxicillin [From Augmentin] AdvReac Intermediate DIZZINESS/C Verified 03/17/24 13:50 ONFUSION clavulanic acid AdvReac Intermediate DIZZINESS/C Verified 03/17/24 13:50 [From Augmentin] ONFUSION codeine AdvReac Intermediate Gastrointestinal Verified 03/17/24 13:50 Upset Home Medications Medication Instructions Recorded Confirmed Type atorvastatin 80 mg tablet 80 mg PO QPM 04/23/19 03/24/24 History empagliflozin 25 mg tablet 25 mg PO QAM 05/31/21 03/24/24 History (Jardiance) aspirin 81 mg tablet,delayed 81 mg PO QAM #30 tabs 06/03/21 03/24/24 Rx release acetaminophen 500 mg tablet 500 - 1,000 mg PO Q6H PRN Pain 12/06/22 03/24/24 History (Tylenol Extra Strength) clopidogrel 75 mg tablet 75 mg PO QAM 12/06/22 03/24/24 History denosumab 120 mg/1.7 mL (70 mg/mL) 120 mg subcut MONTHLY 12/06/22 03/24/24 History subcutaneous solution (Xgeva) linagliptin 5 mg tablet (Tradjenta) 5 mg PO QAM 12/06/22 03/24/24 History sacubitril 24 mg-valsartan 26 mg 1 tab PO BID 12/06/22 03/24/24 History tablet (Entresto) tramadol 50 mg tablet 150 mg PO BID pain 08/01/23 03/24/24 History morphine 15 mg immediate release 15 mg PO BID PRN Pain 01/11/24 03/24/24 History tablet ondansetron HCl 8 mg tablet 8 mg PO DIRECTED PRN Nausea 01/11/24 03/24/24 History potassium phosphate, monobasic 500 500 mg PO BID 01/11/24 03/24/24 History mg soluble tablet (K-Phos Original) prochlorperazine maleate 10 mg 10 mg PO DIRECTED PRN Nausea 01/11/24 03/24/24 History tablet (Compazine) morphine 15 mg tablet,extended 15 mg PO DAILY PRN Pain 02/15/24 03/24/24 History release calcitriol 0.25 mcg capsule 1 mcg (4 x 0.25 mcg) PO QAM #120 02/22/24 03/24/24 Rx caps calcium carbonate (Tums) 1,500 mg (7.5 x 200 mg calcium 02/22/24 03/24/24 Rx (500 mg)) PO TID #360 tabs cyanocobalamin (vitamin B-12) 500 1,000 mcg (2 x 500 mcg) PO QAM #60 02/22/24 03/24/24 Rx mcg tablet tabs ergocalciferol (vitamin D2) 1,250 1,250 mcg PO DAILY #30 caps 02/22/24 03/24/24 Rx mcg (50,000 unit) capsule ferrous sulfate 325 mg (65 mg 325 mg PO QAM #30 tabs 02/22/24 03/24/24 Rx iron) tablet,delayed release magnesium chloride 64 mg 64 mg PO BID #60 tabs 02/22/24 03/24/24 Rx (magnesium chloride) tablet,delayed release (Mag 64) metoprolol tartrate 25 mg tablet 12.5 mg (1/2 x 25 mg) PO BID #30 02/22/24 03/24/24 Rx tabs tamsulosin 0.4 mg capsule 0.4 mg PO QAM #30 caps 02/22/24 03/24/24 Rx buspirone 5 mg tablet 5 mg PO TID 03/11/24 03/24/24 History lidocaine HCl 2 % mucosal jelly in 1 ml EXT BID PRN Other 03/24/24 03/24/24 History applicator Patient History Medical History History of left heart catheterization (LHC) "cardiac cath -02/04 10-20% block" Stroke Surgical History History of left common carotid artery stent placement Family History Mother , in her 80s Myocardial infarction H/O cardiac surgery Diabetes Father , 58yo Myocardial infarction Lung disease 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 Brother No problems noted. Brother No problems noted. Brother No problems noted. Brother No problems noted. Daughter No problems noted. Son No problems noted. Son Diabetes Other Heart disease Hypertension Social History Smoking Status: Light tobacco smoker Tobacco Type: Cigarettes packs per day: 0.5; Cigarettes Per Day: pack per day; Second Hand Exposure: Yes; Do You Dip or Chew Tobacco: No; Tobacco Cessation Education Requested by Patient: No Hx Alcohol Use: Yes Alcohol type: beer Alcohol Intake Frequency: Monthly or Less Hx Substance Use: Yes Prescribed Medications: Marijuana Last Used Substance: Just Prior to Arrival Last Used Substance Other:: Use a marijuana vape pen several times a day. Preferred Language: [place] Communication Ability: Effective Visual Impairment: No Limitations Hearing Ability: Normal Kettle Loader Required: No Beliefs That Will Affect Care: None marital status: Current Living Situation: Spouse Current Living Situation Comment: , daughter/her spouse current occupational status: retired Other Information That Helps Us Care for You: No Feels Safe at Home: Yes Safety Concerns: Feels Safe At This Time Diet: regular caffeine: No during the past year weight has: decreased > 10 lbs Assistive Devices: Walker and Other Review of Systems Review of Systems: See HPI Physical Exam Physical Exam: Frail, cachectic elderly male, appears significantly older than stated age. Bitemporal wasting PERRLA, EOMI's, no hearing or visual deficit noted Dentition poor, mucous membranes slightly dry, slightly fissured tongue, neck without JVD Increased respiratory effort, + conversational dyspnea, + use of accessory muscles, + abdominal breathing, + intermittent bronchitic cough Overall diminished breath sounds, intermittent rhonchi, slight end expiratory wheeze + Tachycardia, S1-S2, no gross murmur, n o gross JVD Abdomen is scaphoid, + mildly tender to palpation, + lower suprapubic tenderness with deep palpation, mild epigastric tenderness Generalized weakness, decreased strength of both upper and lower extremities, no peripheral edema noted Venous insufficiency changes to the lower extremities noted, + onychomycotic nails. Skin is pale, dry, turgor reduced, scattered ecchymoses. He is awake, alert and oriented x 3 Results & Data Vital Signs (Past 12 Hours) Vital Signs Temp Pulse Pulse Resp BP BP Pulse Ox 03/25/24 20:49 36.4 C L 82 18 103/65 99 03/25/24 20:31 36.5 C 85 18 100/65 99 03/25/24 20:22 90 100/65 03/25/24 19:38 36.4 C L 81 20 99/66 L 100 03/25/24 17:00 90 03/25/24 15:33 36.4 C L 78 18 108/58 L 96 03/25/24 11:34 36.8 C 75 18 112/63 99 O2 Del Method 03/25/24 20:49 03/25/24 20:31 03/25/24 20:22 03/25/24 19:38 Room Air 03/25/24 17:00 03/25/24 15:33 Room Air 03/25/24 11:34 Room Air Laboratory Results Abnormal lab results 03/24/24 03/25/24 03/25/24 Range/Units 17:47 06:13 09:40 WBC 4.55 L (4.8-10.8) K/ul RBC 2.01 L (4.70-6.10) M/uL Hgb 5.5 L* (14.0-18.0) g/dl Hct 17.9 L* (42.0-52.0) % MCHC 30.7 L (32.0-36.0) g/dL RDW Std Deviation 58.4 H (36.4-46.3) fL RDW Coeff of Clara 18.0 H (11.5-14.5) % Plt Count 42 L (130-400) K/uL Lymphocytes # (Manual) 0.41 L (1.2-3.4) K/uL Total Abs Lymphocytes 0.41 L (1.2-3.4) K/uL Metamyelocytes # (Man) 0.18 H (0-0) K/uL Myelocytes # (Manual) 0.14 H (0-0) K/uL Chloride 112 H (98-107) mmol/L Carbon Dioxide 19 L (21-32) mmol/L BUN 26 H (6-23) mg/dl BUN/Creatinine Ratio 24.5 H (10-20) Glucose 140 H (70-99(Fasting)) mg/dl POC Glucose 131 H (70-99) mg/dl Calcium 7.9 L (8.6-10.3) mg/dl Troponin I High Sens 47.4 H D (0-20) pg/ml Crossmatch See Detail 03/25/24 03/25/24 03/25/24 Range/Units 12:01 12:03 16:32 WBC (4.8-10.8) K/ul RBC (4.70-6.10) M/uL Hgb (14.0-18.0) g/dl Hct (42.0-52.0) % MCHC (32.0-36.0) g/dL RDW Std Deviation (36.4-46.3) fL RDW Coeff of Clara (11.5-14.5) % Plt Count (130-400) K/uL Lymphocytes # (Manual) (1.2-3.4) K/uL Total Abs Lymphocytes (1.2-3.4) K/uL Metamyelocytes # (Man) (0-0) K/uL Myelocytes # (Manual) (0-0) K/uL Chloride (98-107) mmol/L Carbon Dioxide (21-32) mmol/L BUN (6-23) mg/dl BUN/Creatinine Ratio (10-20) Glucose (70-99(Fasting)) mg/dl POC Glucose 125 H 329 H* (70-99) mg/dl Calcium (8.6-10.3) mg/dl Troponin I High Sens 52.4 H* (0-20) pg/ml Crossmatch 03/25/24 03/25/24 03/25/24 Range/Units 16:33 16:34 18:31 WBC 3.97 L (4.8-10.8) K/ul RBC 2.31 L (4.70-6.10) M/uL Hgb 6.4 L* (14.0-18.0) g/dl Hct 20.3 L* (42.0-52.0) % MCHC 31.5 L (32.0-36.0) g/dL RDW Std Deviation 54.4 H (36.4-46.3) fL RDW Coeff of Clara 16.9 H (11.5-14.5) % Plt Count 42 L (130-400) K/uL Lymphocytes # (Manual) (1.2-3.4) K/uL Total Abs Lymphocytes (1.2-3.4) K/uL Metamyelocytes # (Man) (0-0) K/uL Myelocytes # (Manual) (0-0) K/uL Chloride (98-107) mmol/L Carbon Dioxide (21-32) mmol/L BUN (6-23) mg/dl BUN/Creatinine Ratio (10-20) Glucose (70-99(Fasting)) mg/dl POC Glucose 178 H 179 H (70-99) mg/dl Calcium (8.6-10.3) mg/dl Troponin I High Sens 54.8 H* (0-20) pg/ml Crossmatch 03/25/24 Range/Units 20:20 WBC (4.8-10.8) K/ul RBC (4.70-6.10) M/uL Hgb (14.0-18.0) g/dl Hct (42.0-52.0) % MCHC (32.0-36.0) g/dL RDW Std Deviation (36.4-46.3) fL RDW Coeff of Clara (11.5-14.5) % Plt Count (130-400) K/uL Lymphocytes # (Manual) (1.2-3.4) K/uL Total Abs Lymphocytes (1.2-3.4) K/uL Metamyelocytes # (Man) (0-0) K/uL Myelocytes # (Manual) (0-0) K/uL Chloride (98-107) mmol/L Carbon Dioxide (21-32) mmol/L BUN (6-23) mg/dl BUN/Creatinine Ratio (10-20) Glucose (70-99(Fasting)) mg/dl POC Glucose 159 H (70-99) mg/dl Calcium (8.6-10.3) mg/dl Troponin I High Sens (0-20) pg/ml Crossmatch Diagnostic Findings Ribs w/Chest X-Ray 03/24/24 16:09 SUPINE AP CHEST RADIOGRAPH AND RIGHT RIB SERIES CLINICAL HISTORY: recent fall, right rib pain COMPARISON: Chest radiograph February 15, 2024. PET/CT November 21, 2023. FINDINGS: No pneumothorax is identified on supine exam. No acute right-sided rib fractures are identified. Multiple skeletal sclerotic rib lesions are better depicted on prior PET/CT. Bilateral ureteral stents are partially imaged. IMPRESSION: 1. No pneumothorax identified on supine exam. No acute right-sided rib fractures. 2. Numerous skeletal metastases, as shown on prior PET/CT. ACT 112: Negative or not required by law. Electronically signed by: Antonio Jama M.D. 03/24/2024 5:39 PM Chest CTA 03/24/24 21:27 Exam(s): CTA CHEST IV Amt: 119 cc opti 320 EXAM: CT Angiography Chest With Intravenous Contrast CLINICAL HISTORY: Reason for exam: PE. TECHNIQUE: Axial computed tomographic angiography images of the chest with intravenous contrast. CTDI is 11.38 mGy and DLP is 452.74 mGy-cm. Automated exposure control was utilized for the study. A dose lowering technique was utilized adhering to the principles of ALARA. MIP reconstructed images were created and reviewed. COMPARISON: No relevant prior studies available. FINDINGS: Pulmonary arteries: Unremarkable. No pulmonary embolism. Aorta: Atherosclerotic changes of the aorta. No thoracic aortic aneurysm. Lungs: Unremarkable. No mass. No consolidation. Pleural space: Unremarkable. No significant effusion. No pneumothorax. Heart: Unremarkable. No cardiomegaly. No significant pericardial effusion. No evidence of RV dysfunction. Bones/joints: Sclerosis of the osseous structures, concerning for diffuse metastasis. Correlate for history of prostate cancer. Degenerative changes of the spine. No acute fracture. No dislocation. Soft tissues: Unremarkable. Lymph nodes: Unremarkable. No enlarged lymph nodes. IMPRESSION: Sclerosis of the osseous structures, concerning for diffuse metastasis. Correlate for history of prostate cancer. Electronically signed by: Michael Nix MD 03/25/24 00:44 AM PG Care Time/CCT Total # of Minutes Spent Total Time Spent with Patient: Total time spent is greater than 50% in coordination of care (as documented) at patient's floor/unit and/or counseling patient: I spent 135 minutes overall addressing this very complex case case: 25 min in medical data review/discussion with referring provider(s) and/or preparation for the visit 25min in direct interaction with the patient/exam 45 min in Advance Care Planning/Goals of Care discussions as detailed above in note (must be >16min) 20 min in subsequent review and synthesis of assessment and plan 20 min communicating with other providers regarding the patient's case: Primary team, nursing, care management Advanced Care Planning 02875 Advanced Care Planning 30 Min 41665 Advanced Care Planning Additional 30 [place] [address] IN/OBS CONSULT LVL 5,80M (25 - SIGNIFICANT, SEPARATELY IDENTIFIABLE ) Patient Type New Medical Decision Making High Complexity Diagnoses Cancer related pain G89.3 Dyspnea and respiratory abnormalities R06.00; R06.89 Generalized weakness R53.1 Advanced care planning/counseling discussion Z71.89 Palliative care by specialist Z51.5 Additional Codes Advanced Care Planning - 99302 Advanced Care Planning 30 Min: 13718 Advanced Care Planning 30 Min ([id number]) Advanced Care Planning - 16725 Advanced Care Planning Additional 30 Min: 25746 Advanced Care Planning Additional 30 Min ([id number])
[2024-03-25] MEDS: FUROSEMIDE INJ 20 MG/2 ML VIAL IV ONE (23:43)
[2024-03-26] MEDS: ACETAMINOPHEN 325 MG TAB PO PRN (00:14)
[2024-03-26 01:17] LABS: EAG mmol/L 8.7 mmol/L; HA1C 7.1 (<5.7)
[2024-03-26 07:29] LABS: Hematocrit (blood only) 25.2 % (42.0-52.0); Hemoglobin 8.3 g/dl (14.0-18.0); Mean Corpuscular Hemoglobin 28.4 pg (25.0-34.0); Mean Corpuscular Hgb Conc 32.9 g/dL (32.0-36.0); Mean Corpuscular Volume 86.3 fL (80.0-100.0); Mean Platelet Volume 10.6 fL (9.4-12.4); Nucleated RBC # (auto) 0.04 K/uL (0.00-0.12); Nucleated RBC % (auto) 0.9 %; Platelet Count 38 K/uL (130-400); RDW Coefficient of Variation 16.2 % (11.5-14.5); RDW Standard Deviation 50.8 fL (36.4-46.3); Red Blood Count 2.92 M/uL (4.70-6.10); White Blood Count 4.32 K/ul (4.8-10.8)
[2024-03-26 07:58] LABS: Albumin Level 2.9 gm/dl (3.4-5.0); BUN Creatinine Ratio 20.6 (10-20); Bilirubin,Total 0.6 mg/dl (0.2-1.0); Creatinine Clr Calc Pharmacy 56.6 ml/min; Est GFR (African American) 95.2 ml/min; Est GFR (Non-African American) 82.2 ml/min; Phosphorus 3.2 mg/dl (2.5-4.9); Potassium 3.8 mmol/L (3.5-5.1); Total Protein 5.9 gm/dl (6.0-8.3); Troponin I High Sensitivity 52.7 pg/ml (0-20)
--- NOTE | 2024-03-26 09:26 | Urology Progress Note ---
Date of Service March 26, 2024 Assessment & Plan (1) Hematuria: (2) Generalized weakness: (3) Prostate cancer: Plan 63yo/M with a hx of metastatic prostate cancer on chemo currently getting radiation treatment and hx bilateral ureteral stent placement 02/18/24 admitted with generalized weakness, anemia, hematuria. Urology consulted for metastatic prostate cancer and hematuria. - Pt afebrile, VSS. - Labs today - WBC 4.32, creatinine 0.97, hemoglobin 8.3 (received PRBC trans fusion yesterday). - Urine and blood cultures prelim no growth. Zosyn and Doxy discontinued 03/25. - Pt reports he is voiding spontaneously without issue. He denies hematuria or clots today. No urine available to assess at time of exam. - Recommend continued monitoring of ability to void and bladder scans to ensure he is emptying. - As long as he is emptying, will avoid catheter placement as this may cause further irritation in addition to the ureteral stents. - Continue supportive care. - Continue to trend labs. Transfuse as felt necessary per primary team. - Continue tamsulosin - Anticoagulation per primary team. - No acute intervention warranted. - Will arrange outpatient follow-up. - Urology will follow peripherally. Please call with any further questions or concerns. Admission and Anticipated Discharge Date Admission Date: March 24, 2024 Subjective Pt seen at bedside this AM Awake, sitting in bedside chair eating breakfast on arrival No acute distress Reports he is feeling a little better today Denies any significant pain at present Voiding without issue He denies gross hematuria or clots Feels he is emptying his bladder well No fevers Review of Systems Constitutional: as per Subjective / HPI Genitourinary: + as per Subjective / HPI Physical Exam Constitutional: + frail appearing chronically ill-appearing Respiratory: no respiratory distress and no labored breathing Skin: No visible rashes to exposed skin areas Neurologic: awake Psychiatric: Orientation: alert Results & Data Vital Signs (Past 12 Hours) Vital Signs Temp Pulse Pulse Resp BP BP Pulse Ox 03/26/24 08:28 36.6 C 84 20 111/66 98 03/26/24 07:35 03/26/24 07:15 85 03/26/24 04:00 36.8 C 68 18 112/67 99 03/25/24 23:04 36.5 C 72 18 113/60 100 03/25/24 22:05 36.6 C 72 18 129/75 99 03/25/24 21:58 83 03/25/24 21:34 36.7 C 82 20 104/70 100 O2 Del Method 03/26/24 08:28 Room Air 03/26/24 07:35 Room Air 03/26/24 07:15 03/26/24 04:00 Room Air 03/25/24 23:04 03/25/24 22:05 03/25/24 21:58 03/25/24 21:34 PG Care Time/CCT Total # of Minutes Spent Total Time Spent with Patient: Total time spent is greater than 50% in coordination of care (as documented) at patient's floor/unit and/or counseling patient: Coding Level of Care Code 86841 SUB INP/OBS CARE 2/35MIN Diagnoses Hematuria R31.9 Hematuria type: unspecified type Generalized weakness R53.1 Prostate cancer C61 (1) Hematuria Hematuria type: unspecified type Qualified Code(s): R31.9 - Hematuria, unspecified
[2024-03-26] MEDS: MoRPHine SULFATE 2 MG/ML CARP IV PRN (14:23)
--- NOTE | 2024-03-26 14:54 | Hospitalist Progress Note ---
Date of Service March 26, 2024 Assessment & Plan (1) Generalized weakness: Plan: Mr. Chaudhari is a 63 year old gentleman with past medical history significant for metastatic prostate cancer on chemotherapy, DMII, PAD, HFrEF, HTN, CKDIII, prior CVA, obstructive uropathy s/p TURP with ongoing hematuria found to have acute on chronic anemia in setting of hematuria and progressive malnutrition/weakness. . Per previous provider with addendum: Patient reports weight loss and extreme stress over family dynamics. Patient expresses desire to just "do what [he] wants" and to spend the "last days not in pain." Patient reports ongoing stress with /daughter dynamics. Patient curious about hospice. Palliative consulted to discuss care plan--tentatively home with hospice. generalized weakness Severe protein calorie malnutrition ambulatory dysfunction empirically placed on Zosyn and Doxy: discontinued, no signs of infection CTA chest shows no PE but diffuse metastasis missed Radiation treatments last week because of weakness Consult palliative care -DNR/DNI -Discussing hospice with daughter -Appreciate further recommendations -Liberalized diet -Permission for outdoor walk with 03/26-pt and requesting hospice information. Also awaiting further discussion with palliative care. elevated lactic acid IV fluids, likely in setting of blood loss, poor intake resolved Acute on chronic anemia, multifactorial Multifactorial: chemo, ongoing hematuria Continue ferrous sulfate, b12 transfuse < 7 -s/p transfusion 1U pRBC on 03/25 Gross Hematuria Chronic rain placement Urology following, appreciate recs Adenocarcinoma of prostate with bladder involvement Recent obstructive uropathy s/p TURP 02/23/2024 Metastatic Prostate Cancer Diagnosed 2020, completed casodex; Xtandi, then to taxotere/prednisone EOT 11/2023 Now on Eligard q [address] Novak; Xgeva q6 weeks, held 2/2 hypocalcemia/hypophosphatemia; pluvicto on hold 2/2 anemia/hematuria Follows Dr. Elio Queen, last visit 03/06 Pain control- pt prefers morphine elevated troponin mostly demand ischemia, chronically elevated No chest pain/ACS concerns obstructive uropathy s/p TURP on 02/17 on Flomax. hypertension metoprolol continued d/c entresto 2/2 hypotension chronic systolic CHF echo from 08/2023 shows EF of 48% seems improved from previous getting fluids On metoprolol discontinue Entresto monitor for volume overload type 2 diabetes HbA1c 6.3 in November 2003 follow repeat A1c levels- 7.1 hold home p.o. medications sliding scale peripheral artery disease left carotid stenosis s/p TCAR currently aspirin Plavix held because of hematuria On statin history of right MCA stroke 2019 on statin. aspirin Plavix held currently ongoing tobacco abuse smoking 1 to 2 cigarettes daily counseling. chronic pain analgesia resumed, adjustment per palliative recommendations DVT prophylaxis SCDs for now in setting of anemia with need for transfusion DNR/DNI per palliative discussions: dispo home w/ hospice once pain controlled Admission and Anticipated Discharge Date Admission Date: March 24, 2024 Subjective Pt was seen with at bedside Stated he was in pain. States that the dilaudid does not work for him. Requesting morphine. Also asking about a hospital bed for use at home. Review of Systems Review of Systems: All systems reviewed & are unremarkable except as noted in Subjective Physical Exam Physical Exam: General: Alert, oriented, cachectic. No acute distress Psych: Appropriate mood and affect Neuro: No gross deficits HEENT: NC/AT CV: RRR Resp: Breath sounds clear bilaterally, no increased effort of breathing. Abdomen: Soft, tender Extremities: No edema in lower extremities bilaterally. Results & Data Results & Data Vital Signs (Past 12 Hours) Vital Signs Temp Pulse Pulse Resp BP Pulse Ox O2 Del Method 03/26/24 11:17 36.5 C 81 20 131/79 99 Room Air 03/26/24 08:28 36.6 C 84 20 111/66 98 Room Air 03/26/24 07:35 Room Air 03/26/24 07:15 85 03/26/24 04:00 36.8 C 68 18 112/67 99 Room Air
[2024-03-26] MEDS: MoRPHine SULFATE 10 MG/0.5 ML UDP PO PRN (22:27)
[2024-03-26] MEDS: traMADol HCL 50 MG TABLET PO STA (22:43)
[2024-03-27] MEDS: traMADol HCL 50 MG TABLET PO SCH (08:11)
[2024-03-27 09:07] LABS: Hematocrit (blood only) 28.7 % (42.0-52.0); Hemoglobin 9.5 g/dl (14.0-18.0); Mean Corpuscular Hemoglobin 28.5 pg (25.0-34.0); Mean Corpuscular Hgb Conc 33.1 g/dL (32.0-36.0); Mean Corpuscular Volume 86.2 fL (80.0-100.0); Mean Platelet Volume 10.2 fL (9.4-12.4); Nucleated RBC # (auto) 0.05 K/uL (0.00-0.12); Nucleated RBC % (auto) 0.9 %; Platelet Count 43 K/uL (130-400); RDW Coefficient of Variation 16.5 % (11.5-14.5); RDW Standard Deviation 51.2 fL (36.4-46.3); Red Blood Count 3.33 M/uL (4.70-6.10); White Blood Count 5.71 K/ul (4.8-10.8)
[2024-03-27] MEDS ORDERED: MoRPHine SULFATE 2 MG/ML CARP IV PRN (09:16)
[2024-03-27 09:23] LABS: Calcium 8.3 mg/dl (8.6-10.3); Creatinine Clr Calc Pharmacy 52.7 ml/min; Est GFR (African American) 91.8 ml/min; Est GFR (Non-African American) 79.2 ml/min; Magnesium 1.9 mg/dl (1.7-2.4); Phosphorus 2.6 mg/dl (2.5-4.9); Potassium 4.4 mmol/L (3.5-5.1)
[2024-03-27 09:31] LABS: ALC (manual) 0.51 K/uL (1.2-3.4); Anisocytosis Present; Lymphocytes # (manual) 0.51 K/uL (1.2-3.4); Lymphocytes % (manual) 9 %; Metamyelocytes # (manual) 0.17 K/uL (0-0); Metamyelocytes % (manual) 3 %; Monocytes # (manual) 0.46 K/uL (0.11-0.59); Monocytes % (manual) 8 %; Myelocytes # (manual) 0.17 K/uL (0-0); Myelocytes % (manual) 3 %; Neutrophils % (manual) 77 %; Polychromasia 1+
--- NOTE | 2024-03-27 09:45 | Communication Note ---
Date of Service: March 27, 2024 Brief Pall Med Note Pain remains issue He did not feel relief with Dilaudid Reports MS IR at home seemed to help more was given MS Contin 15mg but never started, also using tramadol BID prn for "breakthrough" pain at home Has used MS IV 4mg and MS PO 10mg in past 24 hr without lasting relief Will begin MS Contin 15mg PO Q12h, increase MSIR 10mg PO q2h prn and MS 3mg IV q4h prn severe BTP unrelieved by orals Would suggest dc tramadol. For home DC: he already has a new rx supply of MS Contin 15mg tabs and will not need this ordered. Would plan to send him home with MSIR for a 5 day supply. Hospice will hot die picker and cover the costs as well as provide larger volume fills moving forward. I am in OP clinic today, off tomorrow. I can be contacted by [facility] intermittently Sunday for reccs but will not have computer access Sunday through the weekend. Updated primary team and discussed changes with pt . TS 25min NO charge submitted Thank you for allowing us to participate in the ongoing care of this patient. Please page with any additional concerns. Jeremiah Ledezma DNP Director, Palliative Medicine
[2024-03-27] MEDS ORDERED: traMADol HCL 50 MG TABLET PO PRN (09:49)
[2024-03-27] MEDS: MoRPHine SULFATE CR 15 MG TABCR PO SCH (10:14)
--- NOTE | 2024-03-27 12:20 | Hospitalist Progress Note ---
Date of Service March 27, 2024 Assessment & Plan (1) Generalized weakness: Plan: Mr. Chaudhari is a 63 year old gentleman with past medical history significant for metastatic prostate cancer on chemotherapy, DMII, PAD, HFrEF, HTN, CKDIII, prior CVA, obstructive uropathy s/p TURP with ongoing hematuria found to have acute on chronic anemia in setting of hematuria and progressive malnutrition/weakness. . Per previous provider with addendum: Patient reports weight loss and extreme stress over family dynamics. Patient expresses desire to just "do what [he] wants" and to spend the "last days not in pain." Patient reports ongoing stress with /daughter dynamics. Patient curious about hospice. Palliative consulted to discuss care plan--tentatively home with hospice. generalized weakness Severe protein calorie malnutrition ambulatory dysfunction empirically placed on Zosyn and Doxy: discontinued, no signs of infection CTA chest shows no PE but diffuse metastasis missed Radiation treatments last week because of weakness Consult palliative care -DNR/DNI -Discussing hospice with daughter -Appreciate further recommendations -Liberalized diet -Permission for outdoor walk with 03/26-pt and requesting hospice information. Also awaiting further discussion with palliative care. 03/27- optimizing pain meds before discharge home with hospice Adenocarcinoma of prostate with bladder involvement Recent obstructive uropathy s/p TURP 02/23/2024 Metastatic Prostate Cancer Diagnosed 2020, completed casodex; Xtandi, then to taxotere/prednisone EOT 11/2023 Now on Eligard q [address] Novak; Xgeva q6 weeks, held 2/2 hypocalcemia/hypophosphatemia; pluvicto on hold 2/2 anemia/hematuria Follows Dr. Elio Queen, last visit 03/06 Pain control- pt prefers morphine, requesting home tramadol, made prn Palliative on board -started on po MS Contin with prn morphine elevated lactic acid IV fluids, likely in setting of blood loss, poor intake resolved Acute on chronic anemia, multifactorial Multifactorial: chemo, ongoing hematuria Continue ferrous sulfate, b12 transfuse < 7 -s/p transfusion 1U pRBC on 03/25 Gross Hematuria Chronic rain placement Urology following, appreciate recs elevated troponin mostly demand ischemia, chronically elevated No chest pain/ACS concerns obstructive uropathy s/p TURP on 02/17 on Flomax. hypertension metoprolol continued d/c entresto 2/2 hypotension chronic systolic CHF echo from 08/2023 shows EF of 48% seems improved from previous getting fluids On metoprolol discontinue Entresto monitor for volume overload type 2 diabetes HbA1c 6.3 in November 2003 follow repeat A1c levels- 7.1 hold home p.o. medications sliding scale peripheral artery disease left carotid stenosis s/p TCAR currently aspirin Plavix held because of hematuria On statin history of right MCA stroke 2019 on statin. aspirin Plavix held currently ongoing tobacco abuse smoking 1 to 2 cigarettes daily counseling. chronic pain analgesia resumed, adjustment per palliative recommendations DVT prophylaxis SCDs for now in setting of anemia with need for transfusion DNR/DNI per palliative discussions: dispo home w/ hospice once pain controlled Admission and Anticipated Discharge Date Admission Date: March 24, 2024 Subjective Pt was seen alone today. Stated pain better controlled. Per nursing, pt requesting his home tramadol. Review of Systems Review of Systems: All systems reviewed & are unremarkable except as noted in Subjective Physical Exam Physical Exam: General: Alert, oriented, cachectic. No acute distress Psych: Appropriate mood and affect Neuro: No gross deficits HEENT: NC/AT CV: RRR Resp: Breath sounds clear bilaterally, no increased effort of breathing. Abdomen: Soft, tender Extremities: No edema in lower extremities bilaterally. Results & Data Results & Data Vital Signs (Past 12 Hours) Vital Signs Temp Pulse Pulse Resp BP Pulse Ox O2 Del Method 03/27/24 11:54 36.6 C 76 17 123/76 99 Room Air 03/27/24 10:41 85 03/27/24 08:22 36.6 C 100 H 17 135/82 99 Room Air 03/27/24 08:19 Room Air
[2024-03-27] MEDS: MoRPHine SULFATE 10 MG/0.5 ML UDP PO PRN (19:29)
[2024-03-28 08:01] LABS: Hematocrit (blood only) 22.3 % (42.0-52.0); Hemoglobin 7.3 g/dl (14.0-18.0); Mean Corpuscular Hemoglobin 28.4 pg (25.0-34.0); Mean Corpuscular Hgb Conc 32.7 g/dL (32.0-36.0); Mean Corpuscular Volume 86.8 fL (80.0-100.0); Mean Platelet Volume 11.2 fL (9.4-12.4); Nucleated RBC # (auto) 0.04 K/uL (0.00-0.12); Nucleated RBC % (auto) 1.1 %; Platelet Count 32 K/uL (130-400); RDW Coefficient of Variation 16.4 % (11.5-14.5); RDW Standard Deviation 51.8 fL (36.4-46.3); Red Blood Count 2.57 M/uL (4.70-6.10); White Blood Count 3.58 K/ul (4.8-10.8)
[2024-03-28 08:17] LABS: BUN Creatinine Ratio 22.5 (10-20); Calcium 7.8 mg/dl (8.6-10.3); Creatinine Clr Calc Pharmacy 59.7 ml/min; Est GFR (African American) 104.7 ml/min; Est GFR (Non-African American) 90.4 ml/min; Magnesium 1.9 mg/dl (1.7-2.4); Potassium 3.9 mmol/L (3.5-5.1)
[2024-03-28 08:30] LABS: ALC (manual) 0.29 K/uL (1.2-3.4); ANC (manual) 2.83 K/uL (1.4-6.5); Eosinophils # (manual) 0.07 K/uL (0-0.50); Eosinophils % (manual) 2 %; Lymphocytes # (manual) 0.29 K/uL (1.2-3.4); Lymphocytes % (manual) 8 %; Metamyelocytes # (manual) 0.11 K/uL (0-0); Metamyelocytes % (manual) 3 %; Monocytes # (manual) 0.29 K/uL (0.11-0.59); Monocytes % (manual) 8 %; Neutrophils # (manual) 2.83 K/uL (1.40-6.50); Neutrophils % (manual) 79 %; Polychromasia 1+
[2024-03-28 11:53] VITALS: BP 106/66; PULSE 75; RESP 17; TEMP 97.9; O2SAT 99
--- NOTE | 2024-03-28 13:43 | Discharge Summary ---
Discharge Summary Date of Service March 28, 2024 Principal Dx & Hospital Course #1 = Principal Diagnosis (1) Generalized weakness: (2) Cancer related pain: (3) Prostate cancer: Plan Mr. Chaudhari is a 63 year old gentleman with past medical history significant for metastatic prostate cancer on chemotherapy, DMII, PAD, HFrEF, HTN, CKDIII, prior CVA, obstructive uropathy s/p TURP with ongoing hematuria found to have acute on chronic anemia in setting of hematuria and progressive malnutrition/weakness. Per previous provider with addendum: Patient reports weight loss and extreme stress over family dynamics. Patient expresses desire to just "do what [he] wants" and to spend the "last days not in pain." Patient reports ongoing stress with /daughter dynamics. Patient was curious about hospice. Palliative consulted to discuss care plan--pt would like to be discharged home with hospice. Discharged home with hospice services on 03/28/24. Per Palliative Care: "For home DC: he already has a new rx supply of MS Contin 15mg tabs and will not need this ordered. Would plan to send him home with MSIR for a 5 day supply. Hospice will continuous pickling line pickler and cover the costs as well as provide larger volume fills moving forward." Pt discharged with MSIR 10mg BID PRN (has been using like this while hospitalized) with close hospice followup. Generalized weakness Severe protein calorie malnutrition Ambulatory dysfunction Empirically placed on Zosyn and Doxy: discontinued, no signs of infection CTA chest showed no PE but diffuse metastasis Missed Radiation treatments week prior to admission because of weakness Consulted palliative care -DNR/DNI -Patient transitioned to hospice and discharged home with hospice services on 03/28/24. -pain control with MS Contin and MSIR with hospice followup Liberalized diet Permission for outdoor walk with Discharged home with hospice services on 03/28/24. Adenocarcinoma of prostate with bladder involvement Recent obstructive uropathy s/p TURP 02/23/2024 Metastatic Prostate Cancer Diagnosed 2020, completed casodex; Xtandi, then to taxotere/prednisone EOT 11/2023 Now on Eligard q [address] Novak; Xgeva q6 weeks, held 2/2 hypocalcemia/hypophosphatemia; pluvicto on hold 2/2 anemia/hematuria Follows with oncology Dr. Elio Queen, last visit 03/06 Pain control- pt prefers morphine, requesting home tramadol, made prn Palliative on board -started on po MS Contin with prn morphine IR -"For home DC: he already has a new rx supply of MS Contin 15mg tabs and will not need this ordered. Would plan to send him home with MSIR for a 5 day supply. Hospice will continuous pickling line pickler and cover the costs as well as provide larger volume fills moving forward." Pt discharged with MSIR 10mg BID PRN (has been using like this while hospitalized) with close hospice followup. Elevated lactic acid IV fluids likely in setting of blood loss, poor intake Resolved on discharge Acute on chronic anemia, multifactorial Multifactorial: chemo, ongoing hematuria Continue ferrous sulfate, b12 Transfuse < 7 -s/p transfusion 1U pRBC on 03/25 Pt discharged home with hospice followup Elevated troponin Mostly demand ischemia, chronically elevated No chest pain/ACS concerns Gross Hematuria Chronic rain placement Urology followed Pt discharged home with hospice followup Obstructive uropathy s/p TURP on 02/17 on Flomax. Hypertension Metoprolol continued d/c entresto 2/2 hypotension Chronic systolic CHF Echo from 08/2023 shows EF of 48% seems improved from previous On metoprolol Discontinued Entresto Pt discharged home with hospice followup Type 2 diabetes HbA1c 6.3 in November 2003 Repeat A1c levels- 7.1 Pt discharged home with hospice followup Peripheral artery disease Left carotid stenosis s/p TCAR Aspirin, Plavix held because of hematuria On statin Pt discharged home with hospice followup History of right MCA stroke 2018 On statin. Aspirin Plavix held currently in setting of hematuria Pt discharged home with hospice followup Ongoing tobacco abuse Smoking 1 to 2 cigarettes daily Counseling. Chronic pain analgesia resumed, adjustment per palliative recommendations as noted above Notes For Next Care Provider Please ensure hospice followup Medication Changes From Visit Morphine sulfate IR 10mg BID PRN Per Palliative Care has MS Contin ER at home. Admission HPI Per Admitting Provider 63-year-old male with past medical history significant for metastatic prostate cancer on chemo currently getting radiation treatment, type 2 diabetes peripheral artery disease, heart failure reduced ejection fraction, hypertension, CKD stage III, history of CVA, history of tobacco use disorder, history of left common carotid artery stent placement,History of ureteral stents and who was was recently in the hospital for hematuria and received PRBC transfusions and urology offered radiation vs nephrostomy tubes to divert urine from bladder and patient opted for trial radiation and if unsuccessful plan to go for nephrostomy placement and aspirin Plavix were held at time comes today because feeling generalized weakness, poor appetite, loss of weight ,some confusion and because of the weakness was not going to radiation for the last 1 week. Patient was having a lot of pain in the prostate region and received IV Dilaudid in the ER. Currently patient is groggy. is in the room. states at home patient has slight confusion but current grogginess is from Dilaudid. Patient is able to answer some simple questions. Denies any chest pain. Has some shortness of breath. Has cough. No fevers. Has a lot of pain in the pelvic and prostate region. Still has hematuria but this is reducing as per the . Moved his bowels. Hemodynamics are okay currently. When asked about the CODE STATUS patient and still wanted to be full code but they are okay to discuss with palliative care. is also asking if we need to be started back on aspirin and Plavix because she is worried about the stroke and she is okay to wait until urology evaluation in the morning Past medical history. As mentioned above.> Past surgical history. Left carotid stent placement. TURP Social history. . Smoked on average 0.5 pack a day for 30 years. Currently smoking 1 to 2 cigarettes daily. Alcohol rarely. Has medical marijuana card, Which is as per the . family history. Mother had diabetes. Hypertension. Father had heart disorder. Lung disorder. Admission Exam Per Admitting Provider General- Drowsy.Frail Head- atraumatic Eyes- PERRL. ENT- oropharynx clear Neck- supple, no JVD. Lungs- clear to auscultation no wheezing or crackles. Heart- regular rhythm; no murmur, no gallop. Abdomen- normal bowel sounds, soft, nontender, no distension. Extremities- no erythema seen. Neuro- Drowsy. PERRL, EOMI; no facial palsy; no dysarthria; obeys simple commands. Discharge Exam General: Alert, oriented, cachectic. No acute distress Psych: Appropriate mood and affect Neuro: No gross deficits HEENT: NC/AT CV: RRR Resp: Breath sounds clear bilaterally, no increased effort of breathing. Abdomen: Soft, tender Extremities: No edema in lower extremities bilaterally. Updated Medication List Medication Instructions Recorded Confirmed Type atorvastatin 80 mg tablet 80 mg PO QPM 07/24/19 06/24/24 History empagliflozin 25 mg tablet 25 mg PO QAM 05/31/21 03/24/24 History (Jardiance) aspirin 81 mg tablet,delayed 81 mg PO QAM #30 tabs 06/03/21 03/24/24 Rx release acetaminophen 500 mg tablet 500 - 1,000 mg PO Q6H PRN Pain 12/06/22 03/24/24 History (Tylenol Extra Strength) clopidogrel 75 mg tablet 75 mg PO QAM 12/06/22 03/24/24 History denosumab 120 mg/1.7 mL (70 mg/mL) 120 mg subcut MONTHLY 12/06/22 03/24/24 History subcutaneous solution (Xgeva) linagliptin 5 mg tablet (Tradjenta) 5 mg PO QAM 12/06/22 03/24/24 History sacubitril 24 mg-valsartan 26 mg 1 tab PO BID 12/06/22 03/24/24 History tablet (Entresto) tramadol 50 mg tablet 150 mg PO BID pain 08/01/23 03/24/24 History ondansetron HCl 8 mg tablet 8 mg PO DIRECTED PRN Nausea 01/11/24 03/24/24 History potassium phosphate, monobasic 500 500 mg PO BID 01/11/24 03/24/24 History mg soluble tablet (K-Phos Original) prochlorperazine maleate 10 mg 10 mg PO DIRECTED PRN Nausea 01/11/24 03/24/24 History tablet (Compazine) morphine 15 mg tablet,extended 15 mg PO DAILY PRN Pain 02/15/24 03/24/24 History release calcitriol 0.25 mcg capsule 1 mcg (4 x 0.25 mcg) PO QAM #120 02/22/24 03/24/24 Rx caps calcium carbonate (Tums) 1,500 mg (7.5 x 200 mg calcium 02/22/24 03/24/24 Rx (500 mg)) PO TID #360 tabs cyanocobalamin (vitamin B-12) 500 1,000 mcg (2 x 500 mcg) PO QAM #60 02/22/24 03/24/24 Rx mcg tablet tabs ergocalciferol (vitamin D2) 1,250 1,250 mcg PO DAILY #30 caps 02/22/24 03/24/24 Rx mcg (50,000 unit) capsule ferrous sulfate 325 mg (65 mg 325 mg PO QAM #30 tabs 02/22/24 03/24/24 Rx iron) tablet,delayed release magnesium chloride 64 mg 64 mg PO BID #60 tabs 02/22/24 03/24/24 Rx (magnesium chloride) tablet,delayed release (Mag 64) metoprolol tartrate 25 mg tablet 12.5 mg (1/2 x 25 mg) PO BID #30 02/22/24 03/24/24 Rx tabs tamsulosin 0.4 mg capsule 0.4 mg PO QAM #30 caps 02/22/24 03/24/24 Rx buspirone 5 mg tablet 5 mg PO TID 03/11/24 03/24/24 History lidocaine HCl 2 % mucosal jelly in 1 ml EXT BID PRN Other 03/24/24 03/24/24 History applicator morphine 15 mg immediate release 15 mg PO BID PRN Pain #10 tabs 03/28/24 Rx tablet Hospital Stay Data Consultations 03/24/24 19:34 ED Decision to Admit Stat 03/25/24 08:00 Consult Palliative Care Routine Consult Urology Routine Diagnostic Imagining Performed 03/24/24 21:27 CT angio chest PE protocol Urgent Ribs w/Chest X-Ray 03/24/24 16:09 SUPINE AP CHEST RADIOGRAPH AND RIGHT RIB SERIES CLINICAL HISTORY: recent fall, right rib pain COMPARISON: Chest radiograph February 15, 2024. PET/CT November 21, 2023. FINDINGS: No pneumothorax is identified on supine exam. No acute right-sided rib fractures are identified. Multiple skeletal sclerotic rib lesions are better depicted on prior PET/CT. Bilateral ureteral stents are partially imaged. IMPRESSION: 1. No pneumothorax identified on supine exam. No acute right-sided rib fractures. 2. Numerous skeletal metastases, as shown on prior PET/CT. ACT 112: Negative or not required by law. Electronically signed by: Antonio Jama M.D. 03/24/2024 5:39 PM Chest CTA 03/24/24 21:27 Exam(s): CTA CHEST IV Amt: 119 cc opti 320 EXAM: CT Angiography Chest With Intravenous Contrast CLINICAL HISTORY: Reason for exam: PE. TECHNIQUE: Axial computed tomographic angiography images of the chest with intravenous contrast. CTDI is 11.38 mGy and DLP is 452.74 mGy-cm. Automated exposure control was utilized for the study. A dose lowering technique was utilized adhering to the principles of ALARA. MIP reconstructed images were created and reviewed. COMPARISON: No relevant prior studies available. FINDINGS: Pulmonary arteries: Unremarkable. No pulmonary embolism. Aorta: Atherosclerotic changes of the aorta. No thoracic aortic aneurysm. Lungs: Unremarkable. No mass. No consolidation. Pleural space: Unremarkable. No significant effusion. No pneumothorax. Heart: Unremarkable. No cardiomegaly. No significant pericardial effusion. No evidence of RV dysfunction. Bones/joints: Sclerosis of the osseous structures, concerning for diffuse metastasis. Correlate for history of prostate cancer. Degenerative changes of the spine. No acute fracture. No dislocation. Soft tissues: Unremarkable. Lymph nodes: Unremarkable. No enlarged lymph nodes. IMPRESSION: Sclerosis of the osseous structures, concerning for diffuse metastasis. Correlate for history of prostate cancer. Electronically signed by: Michael Nix MD 03/25/24 00:44 AM Discharge Instructions Given to Patient (Per Discharging Provider) Mr. Chaudhari, You are being discharged home with hospice. Please keep close followup with your hospice provider after discharge especially for any needed medication refills. It was a pleasure taking care of you while you were here. Total Time Total Time Spent Total Time Spent (In Minutes): 75
== END 2024-03-28 16:34 | disposition hospice, home (50) | DRG 947 ==
LOC: ED 15:55 → SUATTDRO 20:42 → EDINP 20:42 → 2W 22:16

== ENCOUNTER 2024-03-29 10:20 | Inpatient (IN) ==
--- OUTSIDE RECORDS SUMMARY | 2024-03-29 10:27 | External Medical Summary | Summary of Care ---
Author Name Unknown Organization [facility] Address [address] [place] [facility] [place] [place] [address] Phone [phone] Care Team Providers Care Soda Fountain Clerk Name Role Phone Dru Fritz MD Primary Care Provider [phone] Encounter Details Date Type Department Care Team (Late st Contact Info) Description 03/27/2024 Population Health External Data Unspecified Department Allergies Active Allergy Reactions Criticality Noted Date Comments Amoxicillin-Pot Clavulanate 05/17/20 22 Dizziness and confused documented as of this encounter (statuses as of 03/27/2024) Medications Medication Sig Dispensed Refills Start Date End Date Status [email or web address] SYSTEM W/DEVICE KITIndications:DM type 2, goal A1c [...] 180 Tablet 02/12/2024 Active Ergocalciferol 1.25 MG (55730 UT) Oral Capsule (Vitamin D2(Drisdol)) Take 1 [...] as of this encounter (statuses as of 03/27/2024) Active Problems Problem Noted Date Diagnosed Date [...] as of this encounter (statuses as of 03/27/2024) Resolved Problems Problem Noted Date Diagnosed Date [...] as of this encounter (statuses as of 03/27/2024) Immunizations No known immunizationsdocumented as of this [...] 04/07/2024 1:45 PM EDT Office Visit Urology, [facility] [address] [facility] [place] [address] Isaías Novak MD [address] [place] [address] 04/16/2024 11:45 AM EDT Office Visit Urology [facility] [address] [place] [address] Isaías Novak MD [address] [place] [address] 04/18/2024 1:15 PM EDT Office Visit Hematology/Oncology [facility] [address] [facility] [place] [phone] Elio Queen MD [address] [facility] [place] [address] 05/08/2024 11:00 AM EDT Laboratory Laboratory [facility] [address] [facility] [place] [phone] Park, Lab [facility] [address] [facility] [place] [address] 05/08/2024 11:45 AM EDT Immunization/Injectio n [facility]ematology[facility] [place] [facility] [phone] Nurse, Med [address] [place] [address] 05/20/2024 2:15 PM EDT Office Visit Urology, [facility] [address] [place] [address] Isaías Novak MD [address] [facility] [place] [address] 07/01/2024 4:00 PM EDT Office Visit Family Practice [facility] [address] [facility] [place] [address] Dru Fritz MD [address] [place] [address] Health Maintenance Due Date Last Done Comments DISCUSS TOBACCO CESSATION (REFER TO SMARTSET #1045) 1960 COVID-19 Vaccine (#1) 1965 Pneumococcal Vaccine: [...] Screening 03/06/2025 03/06/2024 CKD HGB USE SMARTSET 64915 03/11/202503/11, 03/11/2024, 03/06/2024, Additional history exists CKD PHOS USE SMARTSET 12721 03/11/202503/01, 03/06/2024, 02/14/2024, Additional history exists GARDASIL-HPV IMMUNIZATION SERIES Aged Out No longer eligible based on patient's age to complete this topic Hepatitis B Aged Out No longer eligi ble based on patient's age to complete this topic MENINGOCOCCAL (MENACTRA/MENVEO) Aged Out No longer eligible based on patient's age to complete this topic documented as of this encounter Medical Devices Implanted Type Area Supervisor [employer] Device Identifier Shelf Expiration Date Model / Serial / Lot Stent Trnscarotid Enroute 7x40 - [id number] Implanted:Qty: 1 on 01/25/2021 by Zeinab Robert MD at [facility] Left: [facility] [id number] 05/31/2023 SR-0740-C S / / [id number] documented as of this encounter Advance Directives [...] patient or by statute hierarchy) Care Teams Soda Fountain Clerk Relationship Specialty Start Date End Date Dru Fritz MD [address] [place] [address] PCP - General Family Medicine 01/24/21 documented as of this encounter
--- OUTSIDE RECORDS SUMMARY | 2024-03-29 10:27 | External Medical Summary | Summary of Care ---
Author Name Unknown Organization [facility] Address [address] [place] [facility] [address] Phone [phone] Care Team Providers Care Head Char Filter Tank Tender Name Role Phone Dru Fritz MD Primary Care Provider [phone] [phone] Reason for Visit * Reason Onset Date Comments Advice 03/24/2024 Encounter Details Date Type Department Care Team (Late st Contact Info) Description 03/24/2024 Telephone Hematology/Oncology [facility] [place] [address] [facility] [place] [phone] [facility] [address] Advice Allergies Active Allergy Reactions Criticality Noted Date Comments Amoxicillin-Pot Clavulanate 05/17/20 22 Dizziness and confused documented as of this encounter (statuses as of 03/25/2024) Medications Medication Sig Dispensed Refills Start Date End Date Status DP7 Digital SYSTEM W/DEVICE KITIndications:DM type 2, goal [...] 180 Tablet 02/12/2024 Active Ergocalciferol 1.25 MG (98871 UT) Oral Capsule (Vitamin D2(Drisdol)) Take 1 [...] as of this encounter (statuses as of 03/25/2024) Active Problems Problem Noted Date Diagnosed Date [...] as of this encounter (statuses as of 03/25/2024) Resolved Problems Problem Noted Date Diagnosed Date [...] as of this encounter (statuses as of 03/25/2024) Immunizations No known immunizationsdocumented as of this [...] Telephone Encounter - Rocio Badillo RN - 03/25/2024 12:46 PM EDT Patient admitted. * Telephone Encounter - Ángel Thompson RN - 03/24/2024 9:07 AM EDT Pt and calling in this morning. Pt stating that he awoke this morning and was confused, thought he was at [facility] and was incontinent in bed. States [...] 04/07/2024 1:45 PM EDT Office Visit Urology, [facility] [address] [facility] [place] [address] Isaías Novak MD [address] [place] [address] [place] [address] 04/16/2024 11:45 AM EDT Office Visit Urology, [facility] [address] [facility] [place] [address] Isaías Novak MD [address] [place] [address] [place] [address] 04/18/2024 1:15 PM EDT [facility] [place] [address] [place] [phone] Elio Queen MD [address] [place] [address] 05/08/2024 11:00 AM EDT [facility] [place] [address] [place] [phone] [facility] [address] [place] [address] 05/08/2024 11:45 AM EDT Immunization/Injectio n Hematology/Oncology Treatment, [place] [address] [place] [address] Nurse, Med [address] [place] [address] 05/20/2024 2:15 PM EDT Office Visit Urology, [facility] [address] [facility] [place] [address] Isaías Novak MD [address] [place] [address] [place] [address] 07/01/2024 4:00 PM EDT Office Visit Family Practice [facility] [place] [address] Dru Fritz MD [address] [facility] [place] [address] Health Maintenance Due Date Last Done Comments DISCUSS TOBACCO CESSATION (REFER TO SMARTSET #4173) 1960 COVID-19 Vaccine (#1) 1965 Pneumococcal Vaccine: [...] Screening 03/06/2025 03/06/2024 CKD HGB USE SMARTSET 21799 03/11/202503/11, 03/11/2024, 03/06/2024, Additional history exists CKD PHOS USE SMARTSET 07847 03/11/202503/01, 03/06/2024, 02/14/2024, Additional history exists GARDASIL-HPV IMMUNIZATION SERIES Aged Out No longer eligible based on patient's age to complete this topic Hepatitis B Aged Out No longer eligi ble based on patient's age to complete this topic MENINGOCOCCAL (MENACTRA/MENVEO) Aged Out No longer eligible based on patient's age to complete this topic documented as of this encounter Medical Devices Implanted Type Area Health Sciences Manager Device Identifier Shelf Expiration Date Model / Serial / Lot Stent Trnscarotid Enroute 7x40 - [id number] Implanted:Qty: 1 on 01/25/2021 by Zeinab Robert MD at [facility] Left: [facility] [id number] 05/31/2023 SR-0740-C S / / [id number] documented as of this encounter Advance Directives [...] patient or by statute hierarchy) Care Teams Head Char Filter Tank Tender Relationship Specialty Start Date End Date Dru Fritz MD [address] [place] [address] PCP - General Family Medicine 01/24/21 documented as of this encounter
[2024-03-29 11:43] LABS: Hematocrit (blood only) 21.7 % (42.0-52.0); Mean Corpuscular Hgb Conc 32.3 g/dL (32.0-36.0); Mean Corpuscular Volume 86.8 fL (80.0-100.0); Mean Platelet Volume 10.9 fL (9.4-12.4); Nucleated RBC # (auto) 0.04 K/uL (0.00-0.12); Platelet Count 33 K/uL (130-400); RDW Coefficient of Variation 16.4 % (11.5-14.5); RDW Standard Deviation 51.3 fL (36.4-46.3)
--- NOTE | 2024-03-29 11:55 | CT Scan Report ---
CT OF THE ABDOMEN AND PELVIS WITHOUT CONTRAST CLINICAL HISTORY: Hematuria. Prostate cancer. COMPARISON STUDY: CT of the abdomen and pelvis February 17, 2024. Renal ultrasound February 23, 2024. TECHNIQUE: Axial images of the abdomen and pelvis were obtained without IV contrast. Images were revi ewed in the axial, sagittal, and coronal planes. Automated exposure control was utilized for the nehemias dy. A dose lowering technique was utilized adhering to the principles of ALARA. FINDINGS: No pneumatosis, free air or portal venous gas is present. Bilateral ureteral stents are shen ce. There is moderate bilateral hydronephrosis. There are no ureteral calculi. No renal or bladder ca lculi are present. There is an 8.9 x 6.5 cm hyperdense abnormality within the bladder consistent with clot. Bladder is moderately distended. Left renal atrophy is again noted. Retroperitoneal lymphadeno natalie is similar to prior CT. Index left common iliac lymph node on image 202 measures 3.8 x 2.7 cm. Unenhanced images of the liver, spleen, adrenal glands and pancreas are unremarkable. There is no sara dence for a bowel obstruction. Numerous skeletal sclerotic metastases are similar to prior CT as well . No pathologic fractures are identified. IMPRESSION: 1. 8.9 x 6.5 cm clot within the bladder. Moderately distended bladder. 2. Bilateral ureteral stents in place. Moderate bilateral hydroureteronephrosis. No urinary calculi. 3. No significant change in osseous and lymphatic metastases since prior CT. ACT 112: Negative or not required by law. Electronically signed by: Antonio Jama M.D. 03/29/2024 11:53 AM
[2024-03-29 12:01] LABS: Basophils # (auto) 0.01 K/uL (0.00-0.20); Basophils % (auto) 0.2 %; Eosinophils # (auto) 0.01 K/uL (0.00-0.50); Eosinophils % (auto) 0.2 %; Immature Granulocytes # (auto) 0.36 K/uL (0.01-0.20); Immature Granulocytes % (auto) 8.6 %; Lymphocytes % (auto) 7.1 %; Monocytes # (auto) 0.26 K/uL (0.11-0.59); Monocytes % (auto) 6.2 %; Neutrophils # (auto) 3.26 K/uL (1.40-6.50); Neutrophils % (auto) 77.7 %; Polychromasia 1+
[2024-03-29 12:05] LABS: BUN Creatinine Ratio 19.4 (10-20); Bilirubin,Total 0.4 mg/dl (0.2-1.0); Calcium 8.2 mg/dl (8.6-10.3); Creatinine Clr Calc Pharmacy 40.7 ml/min; Est GFR (African American) 61.6 ml/min; Est GFR (Non-African American) 53.2 ml/min; Potassium 4.4 mmol/L (3.5-5.1)
[2024-03-29] MEDS: LIDOCAINE 2% JELLY 5 ML TUBE EXT ONE (12:50)
[2024-03-29] MEDS: SODIUM CHLORIDE 0.9% 1,000 ML IV SCH (12:53)
[2024-03-29] MEDS: SODIUM CHLORIDE 0.9% 500 ML IV ONE (12:53)
[2024-03-29] MEDS: ONDANSETRON INJ 2 MG/ML 2 ML VIAL IV STA (12:55)
[2024-03-29] MEDS: MoRPHine SULFATE 4 MG/ML 1 ML CARP\\VIAL IV PRN (12:55)
--- NOTE | 2024-03-29 13:23 | History & Physical Report ---
Date of Service March 29, 2024 Assessment & Plan (1) Hematuria: (2) Blood clot in bladder: (3) Bilateral hydronephrosis: (4) Prostate cancer metastatic to multiple sites: (5) Hypocalcemia syndrome: (6) Metastasis to bone: (7) Chronic pain due to malignant neoplastic disease: Plan Brett Chaudhari is a 63y/o M with PMHx significant for metastatic prostate cancer [diagnosed in 2020; currently on hospice], type 2 diabetes mellitus, peripheral artery disease, nonischemic cardiomyopathy, chronic systolic heart failure, HTN, dyslipidemia, CKD stage III, history of CVA, history of tobacco use disorder, history of left common carotid artery stent placement, history of ureteral stent placement and other medical problems listed below who presented to the ED via ambulance today for evaluation of urinary symptoms and was found to have a blood clot within his bladder. Hematuria, Blood Clot in Bladder Bilateral Hydronephrosis Admitting Imaging * CTAP: "8.9 x 6.5 cm clot within the bladder. Moderately distended bladder. Bilateral ureteral stents in place. Moderate bilateral hydroureteronephrosis. No urinary calculi. Left renal atrophy is again noted. Retroperitoneal lymphadenopathy is similar to prior CT. Index left common iliac lymph node on image 202 measures 3.8 x 2.7 cm. Unenhanced images of the liver, spleen, adrenal glands and pancreas are unremarkable. There is no evidence for a bowel obstruction. Numerous skeletal sclerotic metastases are similar to prior CT as well. No significant change in osseous and lymphatic metastases since prior CT. No pathologic fractures are identified." Dr. Hale from Urology was consulted by the ED provider [Dr. Novoa] and the decision was made to proceed with placement of a Rain catheter in the ED; appears plan from this point is to proceed with one round of manual bladder irrigation and then move on to continuous bladder irrigation (CBI) therapy to further assist with the removal of the clot. Will also proceed with light fluid replacement. 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 Novak --> Xgeva q6wk, held 2/2 hypocalcemia/hypophosphatemia; Pluvicto on hold 2/2 anemia/hematuria -Follows with oncology, Dr. Elio Queen --> Last known visit on 03/06/24 -Pt placed on home hospice care upon d/c yesterday from [facility] -Can continue Flomax, pt would possibly like to return home tomorrow Acute on Chronic Anemia -Hgb 7 on admission, was 7.3 upon d/c yesterday (03/28) -Pt agreeable to receiving blood transfusions PRN -Blood consent obtained, pt type and crossed for 2 units of PRBCs -Pt to receive 1 units of PRBCs, plan to reassess Hgb level tomorrow Type II DM -Hgb A1c 6.3 in November 2003 -Repeat A1c level 7.1 last admission -Hold home medications, initiate SSI & BSG checks ACHS H/O Hypocalcemia Syndrome, Bone Metastases: Calcium 8.2 on admission, appears baseline ~6-8; Will continue calcium supplementation. Chronic Cancer-Related Pain: Pain control [pt prefers morphine, was d/c yesterday on MSIR 10mg BID PRN]. Will resume home regimen, plan to keep pt as comfortable as possible. Other chronic medical conditions: HTN, PAD, dyslipidemia --> Continue metoprolol tartrate, HOLD antiplatelet therapy. Statin therapy discontinued per hospice team. Hold all other SECURITY ASSOCIATE electrolyte supplementation, will check magnesium and phosphorus in the AM - were not measured at time of admission. DVT Prophylaxis: SCDs Code Status: DNR/DNI - As per previous documentation and discussion with patient at bedside. PCP: Dru Fritz MD Dispo: Admit to Med/Surg w/ Telemetry Patient seen in collaboration with Dr. Izaguirre. Please see addendum. I spent a total of 60 minutes coordinating, documenting, and providing care for this patient excluding time spent in the performance of separately billed services. This included personally reviewing all current laboratories and imaging studies, medical reconciliation, outpatient chart review and discussion with specialists. This chart was completed in part utilizing Speech Voice Recognition Software. Grammatical errors, random word insertions, pronoun errors, and incomplete sentences are an occasional consequence of this system due to software limitations, ambient noise, and hardware issues. Any formal questions or concerns about the content, text, or information contained within the body of this dictation should be directly addressed to the provider for clarification. History of Present Illness Chief Complaint: Hematuria Primary Care Provider: Dru Fritz MD Brett Chaudhari is a 63y/o M with PMHx significant for metastatic prostate can cer [diagnosed in 2020; currently on hospice], type 2 diabetes mellitus, peripheral artery disease, nonischemic cardiomyopathy, chronic systolic heart failure, HTN, dyslipidemia, CKD stage III, history of CVA, history of tobacco use disorder, history of left common carotid artery stent placement, history of ureteral stent placement and other medical problems listed below who presented to the ED via ambulance today for evaluation of hematuria. History obtained from patient, family member at bedside and associated chart review. Of note, patient was most recently hospitalized 03/24-03/28 here at [facility] and discharged home on hospice care. Patient seen at bedside with Dr. Izaguirre. Patient has been experiencing blood in his urine since last night. Patient endorses passing some small, bloody clots. No recent fevers, chills, SOB or chest pain. Patient was placed on 2L supplemental oxygen via NC in the ED 2/2 increased RR of 26. His pulse oximetry monitor is not currently on. However, he was previous sating at 98% on RA prior to being put on oxygen. His hospice providers ultimately wanted him to come into today for evaluation. Rain catheter was placed in the ED; patient notes no discomfort with the Rain. He is agreeable to receiving blood transfusions PRN at this time. He is willing to stay now, but would ultimately like to go back home on hospice care with the Rain catheter in place as soon as possible. Patient wishes not to have any invasive surgical procedures. Allergies Allergy/AdvReac Type Severity Reaction Status Date / Time amoxicillin [From Augmentin] AdvReac Intermediate DIZZINESS/C Verified 03/17/24 13:50 ONFUSION clavulanic acid AdvReac Intermediate DIZZINESS/C Verified 03/17/24 13:50 [From Augmentin] ONFUSION codeine AdvReac Intermediate Gastrointestinal Verified 03/17/24 13:50 Upset Home Medications Medication Instructions Recorded Confirmed Type empagliflozin 25 mg tablet 25 mg PO QAM 05/31/21 03/29/24 History (Jardiance) acetaminophen 500 mg tablet 1,000 mg PO Q6H PRN Pain 12/06/22 03/29/24 History (Tylenol Extra Strength) linagliptin 5 mg tablet (Tradjenta) 5 mg PO QAM 12/06/22 03/29/24 History ondansetron HCl 8 mg tablet 8 mg PO DIRECTED PRN Nausea 01/11/24 03/29/24 History potassium phosphate, monobasic 500 500 mg PO BID 01/11/24 03/29/24 History mg soluble tablet (K-Phos Original) prochlorperazine maleate 10 mg 10 mg PO DIRECTED PRN Nausea 01/11/24 03/29/24 History tablet (Compazine) morphine 15 mg tablet,extended 15 mg PO BID PRN Pain 02/15/24 03/29/24 History release calcium carbonate (Tums) 1,500 mg (7.5 x 200 mg calcium 02/22/24 03/29/24 Rx (500 mg)) PO TID #360 tabs magnesium chloride 64 mg 64 mg PO BID #60 tabs 02/22/24 03/29/24 Rx (magnesium chloride) tablet,delayed release (Mag 64) metoprolol tartrate 25 mg tablet 12.5 mg (1/2 x 25 mg) PO BID #30 02/22/24 03/29/24 Rx tabs tamsulosin 0.4 mg capsule 0.4 mg PO QAM #30 caps 02/22/24 03/29/24 Rx buspirone 5 mg tablet 5 mg PO TID 03/11/24 03/29/24 History lidocaine HCl 2 % mucosal jelly in 1 ml EXT BID PRN Other 03/24/24 03/29/24 History applicator morphine 15 mg immediate release 15 mg PO Q4H PRN pain 03/29/24 03/29/24 History tablet Past Med/Surg History Problem List (Updated 03/29/24 @ 15:13 by Cristiano Novoa MD) Hospice care patient (Acute) Blood clot in bladder (Acute) Anemia (Acute) Hematuria (Acute) Chronic pain due to malignant neoplastic disease Metastasis to bone Prostate cancer metastatic to multiple sites Blood clot in bladder Dyspnea and respiratory abnormalities Elevated lactic acid level (Acute) Thrombocytopenia (Acute) Acute UTI (urinary tract infection) (Acute) Sepsis (Acute) Non-ST elevation MS (NSTEMI) (Acute) Generalized weakness (Acute) Palliative care by specialist Advanced care planning/counseling discussion Falls Pelvic pain in male Cancer related pain Anemia (Acute) Complication of Rain catheter (Acute) Hematuria (Acute) Hypocalcemia syndrome Bilateral hydronephrosis Abnormal blood electrolyte level Symptomatic anemia (Acute) History of CVA (cerebrovascular accident) HFrEF (heart failure with reduced ejection fraction) Acute on chronic anemia (Acute) Acute renal failure superimposed on stage 3 chronic kidney disease (Acute) Pancytopenia due to chemotherapy Adult failure to thrive (Acute) Elevated troponin (Acute) Prostate cancer metastatic to bone (Chronic) Prostate cancer Biopsy on 06/10/21 Tobacco abuse (Chronic) HLD (hyperlipidemia) (Chronic) HTN (hypertension) (Chronic) DM2 (diabetes mellitus, type 2) (Chronic) PAD (peripheral artery disease) BPH with obstruction/lower urinary tract symptoms (Acute) Medical History History of left heart catheterization (LHC) "cardiac cath -02/04 10-20% block" Stroke Surgical History History of left common carotid artery stent placement Family History Mother , in her 80s Myocardial infarction H/O cardiac surgery Diabetes Father , 58yo Myocardial infarction Lung disease From working in [employer]; Brother No problems noted. Brother No problems noted. Brother No problems noted. Brother No problems noted. Brother No problems noted. Daughter No problems noted. Son No problems noted. Son Diabetes Other Heart disease Hypertension Social History Smoking Status: Current every day smoker Tobacco Type: Cigarettes packs per day: 0.5; Cigarettes Per Day: pack per day; Second Hand Exposure: Yes; Do You Dip or Chew Tobacco: No; Hx Alcohol Use: No Hx Substance Use: No Preferred Language: Kazakh Communication Ability: Effective Visual Impairment: No Limitations Hearing Ability: Normal Quality Assurance Tester Required: No Beliefs That Will Affect Care: None marital status: Current Living Situation: Spouse Current Living Situation Comment: , daughter/her spouse current occupational status: retired Feels Safe at Home: Yes Safety Concerns: Feels Safe At This Time Diet: regular caffeine: No during the past year weight has: decreased > 10 lbs Assistive Devices: Walker Review of Systems Review of Systems: At least ten systems reviewed and negative, except as noted in the HPI. Physical Exam Physical Exam: Please refer to Dr. Izaguirre's addendum for physical examination findings. Results & Data Results & Data Vital Signs (Past 12 Hours) Vital Signs Temp Pulse Pulse Resp BP BP Pulse Ox 03/29/24 12:12 126 H 26 H 103/63 96 03/29/24 11:32 114 H 03/29/24 11:00 98 03/29/24 10:27 36.6 C 122 H 20 93/75 L 99 O2 Del Method 03/29/24 12:12 Room Air 03/29/24 11:32 03/29/24 11:00 Room Air 03/29/24 10:27 Room Air Laboratory Results Short CBC 03/29/24 Range/Units 10:50 WBC 4.20 L (4.8-10.8) K/ul Hgb 7.0 L (14.0-18.0) g/dl Hct 21.7 L (42.0-52.0) % Plt Count 33 L (130-400) K/uL BMP 03/29/24 10:50 Sodium 136 Potassium 4.4 Chloride 107 Carbon Dioxide 18 L BUN 27 H Creatinine 1.39 D Glucose 200 H Calcium 8.2 L Liver Function 03/29/24 Range/Units 10:50 Total Bilirubin 0.4 (0.2-1.0) mg/dl AST 18 (13-39) U/L ALT 8 (7-52) U/L Alkaline Phosphatase 767 H (34-104) U/L Albumin 3.0 L (3.4-5.0) gm/dl Diagnostic Findings Abdomen/Pelvis CT 03/29/24 11:01 CT OF THE ABDOMEN AND PELVIS WITHOUT CONTRAST CLINICAL HISTORY: Hematuria. Prostate cancer. COMPARISON STUDY: CT of the abdomen and pelvis February 17, 2024. Renal ultrasound February 23, 2024. TECHNIQUE: Axial images of the abdomen and pelvis were obtained without IV contrast. Images were reviewed in the axial, sagittal, and coronal planes. Automated exposure control was utilized for the study. A dose lowering technique was utilized adhering to the principles of ALARA. FINDINGS: No pneumatosis, free air or portal venous gas is present. Bilateral ureteral stents are place. There is moderate bilateral hydronephrosis. There are no ureteral calculi. No renal or bladder calculi are present. There is an 8.9 x 6.5 cm hyperdense abnormality within the bladder consistent with clot. Bladder is moderately distended. Left renal atrophy is again noted. Retroperitoneal lymphadenopathy is similar to prior CT. Index left common iliac lymph node on image 202 measures 3.8 x 2.7 cm. Unenhanced images of the liver, spleen, adrenal glands and pancreas are unremarkable. There is no evidence for a bowel obstruction. Numerous skeletal sclerotic metastases are similar to prior CT as well. No pathologic fractures are identified. IMPRESSION: 1. 8.9 x 6.5 cm clot within the bladder. Moderately distended bladder. 2. Bilateral ureteral stents in place. Moderate bilateral hydroureteronephrosis. No urinary calculi. 3. No significant change in osseous and lymphatic metastases since prior CT. ACT 112: Negative or not required by law. Electronically signed by: Antonio Jama M.D. 03/29/2024 11:53 AM Medications Administered Sodium Chloride (Nss) 1,000 mls @ 125 mls/hr IV .Q8H GENIA Stop: 04/28/24 12:44 Last Admin: 03/29/24 12:53 Dose: 125 mls/hr Documented By: DAYANNA Morphine Sulfate (Morphine Sulfate 4 Mg/Ml 1 Ml Carp\\Vial) 4 mg IV Q15M PRN PRN Reason: Pain Stop: 04/12/24 12:31 Last Admin: 03/29/24 12:55 Dose: 4 mg Documented By: DAYANNA Discontinued Medications Sodium Chloride (Nss) 500 mls @ 999 mls/hr IV .Q31M ONE Stop: 03/29/24 13:02 Last Admin: 03/29/24 12:53 Dose: 999 mls/hr Documented By: DAYANNA Ondansetron HCl (Ondansetron Inj 2 Mg/Ml 2 Ml Vial) 4 mg IV NOW STA Stop: 03/29/24 12:33 Last Admin: 03/29/24 12:55 Dose: 4 mg Documented By: DAYANNA Code Status & VTE Plan Code Status DNR/DNI - No Resuscitation VTE Prophylaxis Plan VTE Prophylaxis will be ordered: Yes Supervising Physician Co-Signing Physician Notes Patient was seen and examined with Mariana CUELLAR at bedside. Chart reviewed. Case discussed with Mariana CUELLAR and agree with the documentation above. In summary, this is a 63 year old male with multiple medical conditions as noted, who was discharged on home hospice yesterday presented to the ED per recommendation of hospice nurses for management of hematuria that started at home after discharge. CT with 8.9x6.5 cm clot in bladder with moderately distended bladder with moderate B/L HDN with bilateral ureteral stent in place, along with osseous and lymphatic mets. Hb 7. Hemodynamically stable. ED physician spoke with urology and they will start on bladder irrigation. Spoke to patient and at bedside. Agreeable to PRBC transfusion with ongoing hematuria. Will transfuse 1 U PRBC and recheck in am. Hold plavix- I would recommend to stop it altogether as he is on hospice and has recurrent hematurias requiring transfusions. Further management per urology. Plan is to discharge on home hospice with rain in place once hematuria improves and when cleared by urology. On exam, elderly male, lying in bed, on NC, no acute distress, chest clear, tachycardic, abd benign, rain with hematuria, no edema, AAO, calm and cooperative. Rest as per the note above. (1) Hematuria Hematuria type: unspecified type Qualified Code(s): R31.9 - Hematuria, unspecified
[2024-03-29 13:48] LABS: Appearance Urine Turbid (Clear); Bilirubin Urine Negative (Negative); Blood Urine 3+ (Negative); Color Urine Red; Glucose Urine UA 1+ (Negative); Ketones Urine Negative (Negative); Leukocyte Esterase Urine Negative (Negative); Nitrite Urine Negative (Negative); Protein Urine 3+ (Negative); Specific Gravity Urine 1.025 (1.000-1.030); Urobilinogen Urine Negative (Negative)
[2024-03-29 13:56] LABS: RBC Urine Automated >20 /hpf (0-4)
[2024-03-29 13:57] LABS: Bacteria Urine Automated None Seen (Negative); Cast Urine Automated 0-2 /lpf (0-5); Epithelial Cell Urine Auto 0-2 /lpf (0-5)
[2024-03-29 14:04] LABS: Bacteria Urine None Seen (None Seen); Epithelial Cell Urine 0-2 /hpf (0-2); RBC Urine >20 /hpf (0-2)
[2024-03-29] MEDS ORDERED: LIDOCAINE 2% JELLY 5 ML TUBE EXT PRN (14:47)
[2024-03-29] MEDS ORDERED: ACETAMINOPHEN 500 MG TAB PO PRN (14:47)
[2024-03-29] MEDS ORDERED: PROCHLORPERAZINE MALEATE 10 MG TAB PO PRN (14:47)
[2024-03-29] MEDS ORDERED: DEXTROSE 50% 50 ML SYRINGE IV PRN (15:09)
[2024-03-29] MEDS ORDERED: GLUCAGON FOR INJ 1 MG VIAL SQ PRN (15:09)
[2024-03-29] MEDS ORDERED: SODIUM CHLORIDE 0.9% 250 ML IV PRN (15:09)
[2024-03-29] MEDS ORDERED: ONDANSETRON INJ 2 MG/ML 2 ML VIAL IV PRN (15:09)
[2024-03-29] MEDS ORDERED: GLUCOSE 40% GEL 15 GM TUBE PO PRN (15:09)
[2024-03-29] MEDS ORDERED: GLUCOSE 10 TAB/TUBE PO PRN (15:09)
[2024-03-29] MEDS ORDERED: ALUMINUM/MAGNESIUM SUSP 30 ML UDC PO PRN (15:09)
[2024-03-29] MEDS ORDERED: CARBOHYDRATES FOR HYPOGLYCEMIA PO PRN (15:09)
[2024-03-29] MEDS ORDERED: POLYETHYLENE (MIRALAX) 17 GM PACK PO PRN (15:09)
--- NOTE | 2024-03-29 15:13 | Emergency Department Note ---
Impression & Plan Hematuria, Prostate cancer metastatic to bone, Anemia, Blood clot in bladder, Hospice care patient ED Provider Note NAME: MARÍA ELENA VIRGEN AGE: 63 SEX: Male INFORMANT: Patient ED PROVIDER(S): Cristiano Novoa MD CHIEF COMPLAINT: Hematuria PLAN: Disposition: Admitted Outpatient prescription management: none Referral: None MEDICAL DECISION MAKING: Patient presented because of difficulty urination with hematuria. Patient was been dealing with metastatic prostate cancer. He has indwelling ureteral stents. Patient was discharged on hospice. He notes he is comfortable with fluids and IVs if necessary. Patient also expressed that he is DNR/DNI after discussion. Patient is preferring to avoid any invasive procedures. Blood works obtained the patient was found to be anemic. He was mildly tachycardic. He was due for his pain medication and given a dose of morphine. Patient was sent for CT imaging. Significant clot was noted in the bladder. Contacted his hospice team and they noted that a catheter for bladder irrigation would be reasonable but they cannot accommodate that for care today and would like the patient admitted so that this could be performed and that would give them time to mobilize the resources and educate family. I did consult with urology, Dr. Hale. He felt it was reasonable to try a hematuria catheter with three-way irrigation and manual flushing initially. CBI could then be initiated. [facility] Did review this with family. Patient was evaluated in the ER and admitted for further management. Care/management discussed with: digital production manager Level of care consideration(s): After review of the information above and other included data, I feel the patient requires escalation of care to admission Triage Nursing notes: reviewed and agree them. Vital Signs: reviewed and remarkable for tachycardia Additional History obtained from: none Chronic Medical/Social Conditions affecting care: Metastatic prostate cancer Prior/ Outside/ External records reviewed: Discharge summary from yesterday reviewed. Patient was sent home for palliative care and hospice. He was treated for anemia as well as malnutrition. Differential Diagnosis: Complication of cancer, renal colic, UTI, appendicitis, diverticulitis, mesenteric ischemia, aortic pathology, infections, inflammatory bowel disease, PUD, biliary pathology, as well as other pathologies. Diagnostics, independently interpreted by me: ECG: none Cardiac Monitoring: Cardiac monitoring ordered by me: The patient was placed on continuous cardiac monitoring and observed. It revealed sinus tachycardic rhythm at 116 beats per minute without ectopy or evidence of dysrhythmia. Medical decision rules: none Imaging studies: Large blood clot within the bladder as well as indwelling ureteral stents on CT imaging. I refer you to the EMR for further details. HPI: 63 year old Male arrives for evaluation of difficulty urinating hematuria. Patient has history of metastatic prostate cancer. His indwelling ureteral stents and was just discharged in the hospital yesterday. Patient was sent back to the emergency department because of concerns about needing a catheter and bladder irrigation. Patient notes chronic pain from his cancer and has been using morphine. He rated his pain as a 7 out of 10 in the lower abdomen area. Patient notes poor p.o. intake. Patient states that he does not want any resuscitation or heroic measures. He is comfortable with basic testing and treatment. Pt denies LOC, headache, fevers, chills, diaphoresis, visual changes, neck pain, chest pain, breathing difficulties, nausea, vomiting, melena, hematochezia, focal weakness, lymphadenopathy, rash, or other complaints. PAST MEDICAL HISTORY: See Below, metastatic prostate cancer PAST SURGICAL HISTORY: See Below, SOCIAL HISTORY: See Below, HOME MEDICATIONS: See Below ALLERGIES: See Below VITALS: See Below PHYSICAL EXAMINATION: GENERAL: Awake, alert, cachectic-appearing, in no distress HENT: Normocephalic, atraumatic. Oropharynx unremarkable. EYES: Normal conjunctiva. Sclera non-icteric. NECK: Inspection normal. Non-tender. Supple. No nuchal rigidity. FROM. No masses. RESPIRATORY: Clear to auscultation. No wheezes. No rales. Normal respiratory effort. CARDIAC: Normal rate. Normal rhythm. No murmurs. No rubs. Extremities warm and well perfused. Pulses equal. No JVD. GI: Soft, non-distended. Suprapubic tenderness to palpation. No rebound or guarding. Fullness in the suprapubic region noted as well. RECTAL: Deferred. MUSCULOSKELETAL: Atraumatic. Chest examination reveals no tenderness. The back is symmetrical on inspection without obvious abnormality. There is no CVA tenderness to palpation. No joint edema. LOWER EXTREMITIES: Calves are equal size bilaterally and non-tender. No edema. No discoloration. NEURO: Normal sensorium. Generally weak but no focal sensory or motor deficits noted. SKIN: No rash or jaundice noted. PROCEDURES: none CRITICAL CARE: none OBSERVATION NOTE: none Past Med/Surg History Problem List (Updated 03/29/24 @ 15:13 by Cristiano Novoa MD) Hospice care patient (Acute) Blood clot in bladder (Acute) Anemia (Acute) Hematuria (Acute) Chronic pain due to malignant neoplastic disease Metastasis to bone Prostate cancer metastatic to multiple sites Blood clot in bladder Dyspnea and respiratory abnormalities Elevated lactic acid level (Acute) Thrombocytopenia (Acute) Acute UTI (urinary tract infection) (Acute) Sepsis (Acute) Non-ST elevation MS (NSTEMI) (Acute) Generalized weakness (Acute) Palliative care by specialist Advanced care planning/counseling discussion Falls Pelvic pain in male Cancer related pain Anemia (Acute) Complication of Velasquez catheter (Acute) Hematuria (Acute) Hypocalcemia syndrome Bilateral hydronephrosis Abnormal blood electrolyte level Symptomatic anemia (Acute) History of CVA (cerebrovascular accident) HFrEF (heart failure with reduced ejection fraction) Acute on chronic anemia (Acute) Acute renal failure superimposed on stage 3 chronic kidney disease (Acute) Pancytopenia due to chemotherapy Adult failure to thrive (Acute) Elevated troponin (Acute) Prostate cancer metastatic to bone (Chronic) Prostate cancer Biopsy on 06/10/21 Tobacco abuse (Chronic) HLD (hyperlipidemia) (Chronic) HTN (hypertension) (Chronic) DM2 (diabetes mellitus, type 2) (Chronic) PAD (peripheral artery disease) BPH with obstruction/lower urinary tract symptoms (Acute) Medical History History of left heart catheterization (LHC) "cardiac cath 10-20% block" Stroke Surgical History History of left common carotid artery stent placement Family History Mother , in her 80s Myocardial infarction H/O cardiac surgery Diabetes Father , 58yo Myocardial infarction Lung disease 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 Brother No problems noted. Brother No problems noted. Brother No problems noted. Brother No problems noted. Daughter No problems noted. Son No problems noted. Son Diabetes Other Heart disease Hypertension Social History Smoking Status: Former smoker Tobacco Type: Cigarettes packs per day: 0.5; Cigarettes Per Day: pack per day; Second Hand Exposure: Yes; Do You Dip or Chew Tobacco: No; Hx Alcohol Use: Yes Alcohol type: beer Alcohol Intake Frequency: Monthly or Less Hx Substance Use: Yes Prescribed Medications: Marijuana Last Used Substance: Just Prior to Arrival Last Used Substance Other:: Use a marijuana vape pen several times a day. 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 Required: No Beliefs That Will Affect Care: None marital status: Current Living Situation: Spouse Current Living Situation Comment: , daughter/her spouse current occupational status: retired Feels Safe at Home: Yes Diet: regular caffeine: No during the past year weight has: decreased > 10 lbs Assistive Devices: Walker and Other Allergies Allergies Allergy/AdvReac Type Severity Reaction Status Date / Time amoxicillin [From Augmentin] AdvReac Intermediate DIZZINESS/C Verified 03/17/24 13:50 ONFUSION clavulanic acid AdvReac Intermediate DIZZINESS/C Verified 03/17/24 13:50 [From Augmentin] ONFUSION codeine AdvReac Intermediate Gastrointestinal Verified 03/17/24 13:50 Upset Home Meds Home Medications Medication Instructions Recorded Confirmed empagliflozin 25 mg tablet 25 mg PO QAM 05/31/21 03/29/24 (Jardiance) acetaminophen 500 mg tablet 1,000 mg PO Q6H PRN Pain 12/06/22 03/29/24 (Tylenol Extra Strength) linagliptin 5 mg tablet (Tradjenta) 5 mg PO QAM 12/06/22 03/29/24 ondansetron HCl 8 mg tablet 8 mg PO DIRECTED PRN Nausea 01/11/24 03/29/24 potassium phosphate, monobasic 500 500 mg PO BID 01/11/24 03/29/24 mg soluble tablet (K-Phos Original) prochlorperazine maleate 10 mg 10 mg PO DIRECTED PRN Nausea 01/11/24 03/29/24 tablet (Compazine) morphine 15 mg tablet,extended 15 mg PO BID PRN Pain 02/15/24 03/29/24 release buspirone 5 mg tablet 5 mg PO TID 03/11/24 03/29/24 lidocaine HCl 2 % mucosal jelly in 1 ml EXT BID PRN Other 03/24/24 03/29/24 applicator morphine 15 mg immediate release 15 mg PO Q4H PRN pain 03/29/24 03/29/24 tablet Previous Rx's Medication Instructions Recorded calcium carbonate (Tums) 1,500 mg (7.5 x 200 mg calcium 02/22/24 (500 mg)) PO TID #360 tabs magnesium chloride 64 mg 64 mg PO BID #60 tabs 02/22/24 (magnesium chloride) tablet,delayed release (Mag 64) metoprolol tartrate 25 mg tablet 12.5 mg (1/2 x 25 mg) PO BID #30 02/22/24 tabs tamsulosin 0.4 mg capsule 0.4 mg PO QAM #30 caps 02/22/24 Results & Data (ED) Vital Signs Vital Signs - 24 hr 03/29/24 10:27 03/29/24 11:00 03/29/24 11:32 Temperature 36.6 C Temperature Source Oral Pulse Rate 122 H 114 H Pulse Rate [Left Finger] Pulse Rhythm Regular Pulse Strength Normal Respiratory Rate 20 Respiratory Effort / Characteristics Non-Labored Spontaneous Respiratory Depth Normal Respiratory Pattern Regular Blood Pressure 93/75 L Blood Pressure [Left Arm] Blood Pressure Mean 81 Blood Pressure Mean [Left Arm] Blood Pressure Position Sitting Blood Pressure Position [Left Arm] Pulse Oximetry 99 98 Oxygen Delivery Method Room Air Room Air Sepsis Recent Fever Within 48 Hours No Sepsis New/Unexplained Change in Mental Status No Sepsis Action Taken by Nursing No Action Required 03/29/24 12:12 Temperature Temperature Source Pulse Rate Pulse Rate [Left Finger] 126 H Pulse Rhythm Pulse Strength Respiratory Rate 26 H Respiratory Effort / Characteristics Respiratory Depth Respiratory Pattern Blood Pressure Blood Pressure [Left Arm] 103/63 Blood Pressure Mean Blood Pressure Mean [Left Arm] 76 Blood Pressure Position Blood Pressure Position [Left Arm] Lying Pulse Oximetry 96 Oxygen Delivery Method Room Air Sepsis Recent Fever Within 48 Hours Sepsis New/Unexplained Change in Mental Status Sepsis Action Taken by Nursing Laboratory Data 03/29/24 10:50 03/29/24 10:50 Lab Results 03/29/24 Range/Units 10:50 WBC 4.20 L (4.8-10.8) K/ul RBC 2.50 L (4.70-6.10) M/uL Hgb 7.0 L (14.0-18.0) g/dl Hct 21.7 L (42.0-52.0) % MCV 86.8 (80.0-100.0) fL MCH 28.0 (25.0-34.0) pg MCHC 32.3 (32.0-36.0) g/dL RDW Std Deviation 51.3 H (36.4-46.3) fL RDW Coeff of Clara 16.4 H (11.5-14.5) % Plt Count 33 L (130-400) K/uL MPV 10.9 (9.4-12.4) fL Immature Gran % (Auto) 8.6 % Neut % (Auto) 77.7 % Lymph % (Auto) 7.1 % Duval % (Auto) 6.2 % Eos % (Auto) 0.2 % Baso % (Auto) 0.2 % Neut # (Auto) 3.26 (1.40-6.50) K/uL Lymph # (Auto) 0.30 L (1.20-3.40) K/uL Duval # (Auto) 0.26 (0.11-0.59) K/uL Eos # (Auto) 0.01 (0.00-0.50) K/uL Baso # (Auto) 0.01 (0.00-0.20) K/uL Immature Gran # (Auto) 0.36 H (0.01-0.20) K/uL Absolute Nucleated RBC 0.04 (0.00-0.12) K/uL Nucleated RBC % (auto) 1.0 % Polychromasia 1+ Sodium 136 (136-145) mmol/L Potassium 4.4 (3.5-5.1) mmol/L Chloride 107 (98-107) mmol/L Carbon Dioxide 18 L (21-32) mmol/L Anion Gap 11 (3-11) BUN 27 H (6-23) mg/dl Creatinine 1.39 D (0.6-1.4) mg/dl Est Cr Clr Drug Dosing 40.7 ml/min Est GFR ( Amer) 61.6 ml/min Est GFR (Non-Af Amer) 53.2 ml/min BUN/Creatinine Ratio 19.4 (10-20) Glucose 200 H (70-99(Fasting)) mg/dl Calcium 8.2 L (8.6-10.3) mg/dl Total Bilirubin 0.4 (0.2-1.0) mg/dl AST 18 (13-39) U/L ALT 8 (7-52) U/L Alkaline Phosphatase 767 H (34-104) U/L Total Protein 6.0 (6.0-8.3) gm/dl Albumin 3.0 L (3.4-5.0) gm/dl Globulin 3.0 (2.5-4.0) gm/dl Albumin/Globulin Ratio 1.0 (0.9-2) Lipase 9 L (11-82) U/L Administered Medications Sodium Chloride (Nss) 1,000 mls @ 60 mls/hr IV .[id number] GENIA Stop: 04/28/24 12:44 Last Infusion: 03/29/24 14:47 Dose: Infused Documented By: Admin: 03/29/24 12:53 Dose: 125 mls/hr Documented By: DAYANNA Morphine Sulfate (Morphine Sulfate 4 Mg/Ml 1 Ml Carp\\Vial) 4 mg IV Q15M PRN PRN Reason: Pain Stop: 04/12/24 12:31 Last Admin: 03/29/24 14:29 Dose: 4 mg Documented By: Admin: 03/29/24 12:55 Dose: 4 mg Documented By: DAYANNA Discontinued Medications Sodium Chloride (Nss) 500 mls @ 999 mls/hr IV .Q31M ONE Stop: 03/29/24 13:02 Last Infusion: 03/29/24 14:00 Dose: Infused Documented By: Admin: 03/29/24 12:53 Dose: 999 mls/hr Documented By: DAYANNA Lidocaine HCl (Lidocaine 2% Jelly 5 Ml Tube) Confirm Administered Dose 5 ml EXT .STK-MED ONE Stop: 03/29/24 12:51 Last Admin: 03/29/24 12:50 Dose: 5 ml Documented By: DAYANNA Ondansetron HCl (Ondansetron Inj 2 Mg/Ml 2 Ml Vial) 4 mg IV NOW STA Stop: 03/29/24 12:33 Last Admin: 03/29/24 12:55 Dose: 4 mg Documented By: DAYANNA Imaging Data Radiologist's Impression: Abdomen/Pelvis CT 03/29/24 11:01 CT OF THE ABDOMEN AND PELVIS WITHOUT CONTRAST CLINICAL HISTORY: Hematuria. Prostate cancer. COMPARISON STUDY: CT of the abdomen and pelvis February 17, 2024. Renal ultrasound February 23, 2024. TECHNIQUE: Axial images of the abdomen and pelvis were obtained without IV contrast. Images were reviewed in the axial, sagittal, and coronal planes. Automated exposure control was utilized for the study. A dose lowering technique was utilized adhering to the principles of ALARA. FINDINGS: No pneumatosis, free air or portal venous gas is present. Bilateral ureteral stents are place. There is moderate bilateral hydronephrosis. There are no ureteral calculi. No renal or bladder calculi are present. There is an 8.9 x 6.5 cm hyperdense abnormality within the bladder consistent with clot. Bladder is moderately distended. Left renal atrophy is again noted. Retroperitoneal lymphadenopathy is similar to prior CT. Index left common iliac lymph node on image 202 measures 3.8 x 2.7 cm. Unenhanced images of the liver, spleen, adrenal glands and pancreas are unremarkable. There is no evidence for a bowel obstruction. Numerous skeletal sclerotic metastases are similar to prior CT as well. No pathologic fractures are identified. IMPRESSION: 1. 8.9 x 6.5 cm clot within the bladder. Moderately distended bladder. 2. Bilateral ureteral stents in place. Moderate bilateral hydroureteronephrosis. No urinary calculi. 3. No significant change in osseous and lymphatic metastases since prior CT. ACT 112: Negative or not required by law. Electronically signed by: Antonio Jama M.D. 03/29/2024 11:53 AM Discharge Plan Visit Data Chief Complaint: Urinary Symptoms Stated Complaint: [facility] ED Provider: Cristiano Novoa Discharge Problem: Hematuria, Prostate cancer metastatic to bone, Anemia, Blood clot in bladder, Hospice care patient
[2024-03-29] MEDS: MoRPHine SULFATE IR 15 MG TAB (IMMEDIATE RELEASE) PO PRN (15:14)
[2024-03-29] MEDS: MoRPHine SULFATE CR 15 MG TABCR PO PRN (17:07)
[2024-03-29] MEDS ORDERED: MoRPHine SULFATE 4 MG/ML 1 ML CARP\\VIAL IV PRN (17:26)
--- NOTE | 2024-03-29 17:47 | Urology Consultation ---
Date of Consultation March 29, 2024 Assessment & Plan (1) Blood clot in bladder: (2) Hematuria: (3) Anemia: (4) Prostate cancer metastatic to multiple sites: Plan I had a discussion with Mr. Chaudhari and his about his current clinical situation. He has ongoing bleeding from his prostate and metastatic sites within the bladder. Fulguration and radiation have been unsuccessful in stopping this bleeding. I think a repeat surgical intervention would be low yield as bleeding would likely recur within a matter of days. Since his pain is better with Velasquez catheter in place and irrigation having been performed, we will continue with this current plan for now. Would recommend maintaining the catheter and hand irrigating as needed for any clot obstruction. He would be a candidate to resume CBI if clots become persistent, however this is likely not something he could do at home or on hospice. We also discussed the possibility of nephrostomy tubes to divert urine away from the bladder. One benefit of this would be that even if he has clot within the bladder, urine will continue to drain through the tubes, however placement of nephrostomy tubes would be a procedure and he would need to be transferred to another facility to have this performed. He is going to think about how this fits in with his goals of care. At this point, he is anemic with ongoing bleeding. It be reasonable to transfuse, however would require further discussion whether this fits with his goals of hospice. Urology will follow along. History of Present Illness Reason for Consultation: Prostate cancer, gross hematuria, clot in bladder Attending Physician: Ricardo Izaguirre MD History of Present Illness This is a 63-year-old male with history of metastatic prostate cancer, treated with chemotherapy and palliative radiation. He was recently discharged home on hospice. He presented to the emergency department on 03/29/2024 due to worsening hematuria and lower abdominal discomfort. Workup in the emergency department was notable for anemia (hemoglobin 7.0). He was also leukopenic (WBC 4.20). Creatinine was elevated from his baseline (1.39). A CT scan of the abdomen and pelvis was performed. This demonstrated both ureteral stents to be in good position with some persistent hydronephrosis bilaterally. His bladder was distended and there was a fairly large blood clot within the lumen of the bladder. There is ongoing evidence of metastatic prostate cancer. Velasquez catheter was placed in the ED and hand irrigation was performed. He was subsequently admitted for ongoing care. Urology was consulted regarding his hematuria. At the bedside, he is resting comfortably. He reports that his bladder is feeling 90% better after catheter placement and hand irrigation. Urine is dark red with no clots. Allergies Allergy/AdvReac Type Severity Reaction Status Date / Time amoxicillin [From Augmentin] AdvReac Intermediate DIZZINESS/C Verified 03/17/24 13:50 ONFUSION clavulanic acid AdvReac Intermediate DIZZINESS/C Verified 03/17/24 13:50 [From Augmentin] ONFUSION codeine AdvReac Intermediate Gastrointestinal Verified 03/17/24 13:50 Upset Home Medications Medication Instructions Recorded Confirmed Type empagliflozin 25 mg tablet 25 mg PO QAM 05/31/21 03/29/24 History (Jardiance) acetaminophen 500 mg tablet 1,000 mg PO Q6H PRN Pain 12/06/22 03/29/24 History (Tylenol Extra Strength) linagliptin 5 mg tablet (Tradjenta) 5 mg PO QAM 12/06/22 03/29/24 History ondansetron HCl 8 mg tablet 8 mg PO DIRECTED PRN Nausea 01/11/24 03/29/24 History potassium phosphate, monobasic 500 500 mg PO BID 01/11/24 03/29/24 History mg soluble tablet (K-Phos Original) prochlorperazine maleate 10 mg 10 mg PO DIRECTED PRN Nausea 01/11/24 03/29/24 History tablet (Compazine) morphine 15 mg tablet,extended 15 mg PO BID PRN Pain 02/15/24 03/29/24 History release calcium carbonate (Tums) 1,500 mg (7.5 x 200 mg calcium 02/22/24 03/29/24 Rx (500 mg)) PO TID #360 tabs magnesium chloride 64 mg 64 mg PO BID #60 tabs 02/22/24 03/29/24 Rx (magnesium chloride) tablet,delayed release (Mag 64) metoprolol tartrate 25 mg tablet 12.5 mg (1/2 x 25 mg) PO BID #30 02/22/24 03/29/24 Rx tabs tamsulosin 0.4 mg capsule 0.4 mg PO QAM #30 caps 02/22/24 03/29/24 Rx buspirone 5 mg tablet 5 mg PO TID 03/11/24 03/29/24 History lidocaine HCl 2 % mucosal jelly in 1 ml EXT BID PRN Other 03/24/24 03/29/24 History applicator morphine 15 mg immediate release 15 mg PO Q4H PRN pain 03/29/24 03/29/24 History tablet Patient History Medical History History of left heart catheterization (LHC) "cardiac cath 10-20% block" Stroke Surgical History History of left common carotid artery stent placement Family History Mother , in her 80s Myocardial infarction H/O cardiac surgery Diabetes Father , 58yo Myocardial infarction Lung disease 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 Brother No problems noted. Brother No problems noted. Brother No problems noted. Brother No problems noted. Daughter No problems noted. Son No problems noted. Son Diabetes Other Heart disease Hypertension Social History Smoking Status: Current every day smoker Tobacco Type: Cigarettes packs per day: 0.5; Cigarettes Per Day: pack per day; Second Hand Exposure: Yes; Do You Dip or Chew Tobacco: No; Hx Alcohol Use: No Hx Substance Use: No Preferred Language: Maori Communication Ability: Effective Visual Impairment: No Limitations Hearing Ability: Normal Palaeontologist Required: No Beliefs That Will Affect Care: None marital status: Current Living Situation: Spouse Current Living Situation Comment: , daughter/her spouse current occupational status: retired Feels Safe at Home: Yes Safety Concerns: Feels Safe At This Time Diet: regular caffeine: No during the past year weight has: decreased > 10 lbs Assistive Devices: Walker Review of Systems Review of Systems: 12 point review of systems negative exce pt for otherwise indicated. Physical Exam Physical Exam: Frail, cachectic appearing, NAD Eyes: + anicteric sclerae; pupils not irregula r Respiratory: normal respiratory effort; no respiratory distress, does not use accessory muscles and no cough Cardiovascular: well perfused Gastrointestinal (Abdomen): Inspection/Auscultation: abdomen normal to inspection; abdomen not distended Musculoskeletal: Extremities: extremities normal to inspection Skin: normal turgor; no rashes and no lesions Neurologic: moves all extremities and awake Psychiatric: Orientation: alert and oriented x 3 Genitourinary: Velasquez catheter in place draining maroon urine Results & Data Vital Signs (Past 12 Hours) Vital Signs Temp Pulse Pulse Resp BP BP Pulse Ox 03/29/24 15:54 102 H 03/29/24 15:54 36.5 C 97 H 18 130/75 99 03/29/24 13:00 117 H 26 H 148/86 H 98 03/29/24 12:12 126 H 26 H 103/63 96 03/29/24 11:32 114 H 03/29/24 11:00 98 03/29/24 10:27 36.6 C 122 H 20 93/75 L 99 O2 Del Method 03/29/24 15:54 03/29/24 15:54 Room Air 03/29/24 13:00 Room Air 03/29/24 12:12 Room Air 03/29/24 11:32 03/29/24 11:00 Room Air 03/29/24 10:27 Room Air PG Care Time/CCT Total # of Minutes Spent Total Time Spent with Patient: Total time spent is greater than 50% in coordination of care (as documented) at patient's floor/unit and/or counseling patient: Coding Level of Care Code 56595 IN/OBS CONSULT LVL 3,45M Diagnoses Blood clot in bladder N32.89 Hematuria R31.9 Anemia D64.9 Prostate cancer metastatic to multiple sites C61
[2024-03-29] MEDS: INSULIN ASPART PER UNIT CHARGE SC SCH (18:09)
[2024-03-29] MEDS: ACETAMINOPHEN 325 MG TAB PO PRN (19:17)
[2024-03-29] MEDS: CALCIUM CARBONATE 500 MG CHEWABLE TAB PO SCH (21:31)
[2024-03-29] MEDS: busPIRone 5 MG TAB PO SCH (21:31)
[2024-03-29] MEDS: MoRPHine SULFATE CR 15 MG TABCR PO SCH (21:31)
[2024-03-29] MEDS: METOPROLOL TARTRATE 25 MG TAB PO SCH (22:05)
[2024-03-30 06:55] LABS: Hematocrit (blood only) 19.3 % (42.0-52.0); Hemoglobin 6.2 g/dl (14.0-18.0); Mean Corpuscular Hemoglobin 28.1 pg (25.0-34.0); Mean Corpuscular Hgb Conc 32.1 g/dL (32.0-36.0); Mean Corpuscular Volume 87.3 fL (80.0-100.0); Mean Platelet Volume 9.8 fL (9.4-12.4); Nucleated RBC # (auto) 0.03 K/uL (0.00-0.12); Nucleated RBC % (auto) 0.9 %; Platelet Count 28 K/uL (130-400); RDW Coefficient of Variation 16.3 % (11.5-14.5); RDW Standard Deviation 51.5 fL (36.4-46.3); Red Blood Count 2.21 M/uL (4.70-6.10); White Blood Count 3.33 K/ul (4.8-10.8)
[2024-03-30 07:26] LABS: Albumin Level 2.6 gm/dl (3.4-5.0); BUN Creatinine Ratio 20.6 (10-20); Bilirubin,Total 0.4 mg/dl (0.2-1.0); Calcium 7.6 mg/dl (8.6-10.3); Creatinine Clr Calc Pharmacy 39.8 ml/min; Est GFR (African American) 60.6 ml/min; Est GFR (Non-African American) 52.3 ml/min; Globulin 2.5 gm/dl (2.5-4.0); Magnesium 1.8 mg/dl (1.7-2.4); Phosphorus 3.7 mg/dl (2.5-4.9); Potassium 4.1 mmol/L (3.5-5.1); Total Protein 5.1 gm/dl (6.0-8.3)
[2024-03-30] MEDS ORDERED: SODIUM CHLORIDE 0.9% 250 ML IV PRN (07:31)
[2024-03-30] MEDS: TAMSULOSIN HCL 0.4 MG CAP PO SCH (08:31)
--- NOTE | 2024-03-30 08:38 | Hospitalist Progress Note ---
Date of Service March 30, 2024 Assessment & Plan (1) Hematuria: (2) Blood clot in bladder: (3) Bilateral hydronephrosis: (4) Prostate cancer metastatic to multiple sites: (5) Hypocalcemia syndrome: (6) Metastasis to bone: (7) Chronic pain due to malignant neoplastic disease: Plan Brett Chaudhari is a 63y/o M with PMHx significant for metastatic prostate cancer [diagnosed in 2020; currently on hospice], type 2 diabetes mellitus, peripheral artery disease, nonischemic cardiomyopathy, chronic systolic heart failure, HTN, dyslipidemia, CKD stage III, history of CVA, history of tobacco use disorder, history of left common carotid artery stent placement, history of ureteral stent placement who presented to the ED via ambulance for evaluation of hematuria and difficulty urinating. Hematuria, Blood Clot in Bladder Bilateral Hydronephrosis Pt discharged home with hospice services on 03/28 Presenting with concern for difficulty urinating Per ED provider, hospice requesting rain placement and "noted that a catheter for bladder irrigation would be reasonable but they cannot accommodate that for care today and would like the patient admitted so that this could be performed and that would give them time to mobilize the resources and educate family." CT abd/pelvis was performed which noted 8.9 x 6.5 cm clot within a moderately distended bladder Urology was consulted, appreciate recs. Recommended the following: -ongoing bleeding from prostate and metastatic sites within the bladder. Fulguration and radiation have been unsuccessful in stopping this bleeding. -repeat surgical intervention would be low yield as bleeding would likely recur within a matter of days -pain is better with Rain catheter in place and irrigation having been performed, will continue with this current plan for now -recommend maintaining the catheter and hand irrigating as needed for any clot obstruction. -would be a candidate to resume CBI (continuous bladder irrigation) if clots become persistent, however this is likely not something he could do at home or on hospice. -also discussed the possibility of nephrostomy tubes to divert urine away from the bladder. One benefit of this would be that even if he has clot within the bladder, urine will continue to drain through the tubes, however placement of nephrostomy tubes would be a procedure and he would need to be transferred to another facility to have this performed. He is going to think about how this fits in with his goals of care. Pt will need further discussion to determine goals of care moving forward. Metastatic Prostate Cancer - On Home Hospice Care [employer] Recurrent Obstructive Uropathy s/p TURP [02/23/2024] Diagnosed 2020, completed Casodex; Xtandi, then to Taxotere/prednisone EOT 11/2023 Pt now on Eligard every [address] Novak --> Xgeva q6wk, held 2/2 hypocalcemia/hypophosphatemia; Pluvicto on hold 2/2 anemia/hematuria Follows with oncology, Dr. Elio Queen --> Last known visit on 03/06/24 Pt placed on home hospice care upon d/c from [facility] on 03/28 Continue flomax Acute on Chronic Anemia pancytopenia Hgb 7 on admission, has since downtrended to 6.2 s/p transfusion of 2U pRBCs in total thus far Pt has been receiving only leukoreduced platelets However pancytopenic with Hx of radiation Pt agreeable to receiving blood transfusions PRN while on hospice Case discussed with pt's oncologist Dr Elio Queen on 03/30, advised to continue to monitor platelet levels at this time before transfusing in setting of bleeding above at 28K. Continue to monitor with CBCs Type II DM Hgb A1c 6.3 in November 2003 Repeat A1c level 7.1 last admission Hold home medications ISS while hospitalized H/O Hypocalcemia Syndrome, Bone Metastases: Calcium 8.2 on admission, appears baseline ~6-8; Ionized calcium Will continue calcium supplementation Chronic Cancer-Related Pain: Pain control with home regimen Will resume home regimen, plan to keep pt as comfortable as possible. Other chronic medical conditions: Continue other home medications as ordered. DVT Prophylaxis: SCDs in setting of acute bleed Code Status: DNR/DNI - As per previous documentation and discussion with patient on admission Dispo: Back home with hospice services Admission and Anticipated Discharge Date Admission Date: March 29, 2024 Subjective Pt seen laying in bed naked. States pain was controlled on current regimen. Improved urination. Review of Systems Review of Systems: All systems reviewed & are unremarkable except as noted in Subjective Physical Exam Physical Exam: General: Alert, oriented. No acute distress Skin: No noted rashes or bruises Psych: Appropriate mood and affect Neuro: No gross deficits HEENT: NC/AT CV: RRR Resp: Breath sounds clear bilaterally, no increased effort of breathing. Abdomen:Soft, nontender, nondistended Extremities: No edema in lower extremities bilaterally. Results & Data Results & Data Vital Signs (Past 12 Hours) Vital Signs Temp Pulse Pulse Resp BP BP Pulse Ox 03/30/24 07:47 36.4 C L 71 17 87/53 L 98 03/29/24 23:08 36.8 C 91 H 21 103/69 98 03/29/24 23:00 03/29/24 21:17 36.7 C 91 H 16 105/66 99 03/29/24 20:45 36.8 C 92 H 16 114/72 99 O2 Del Method 03/30/24 07:47 Room Air 03/29/24 23:08 Room Air 03/29/24 23:00 Room Air 03/29/24 21:17 03/29/24 20:45 Diagnostic Findings Abdomen/Pelvis CT 03/29/24 11:01 CT OF THE ABDOMEN AND PELVIS WITHOUT CONTRAST CLINICAL HISTORY: Hematuria. Prostate cancer. COMPARISON STUDY: CT of the abdomen and pelvis February 17, 2024. Renal ultrasound February 23, 2024. TECHNIQUE: Axial images of the abdomen and pelvis were obtained without IV contrast. Images were reviewed in the axial, sagittal, and coronal planes. Automated exposure control was utilized for the study. A dose lowering techni que was utilized adhering to the principles of ALARA. FINDINGS: No pneumatosis, free air or portal venous gas is present. Bilateral ureteral stents are place. There is moderate bilateral hydronephrosis. There are no ureteral calculi. No renal or bladder calculi are present. There is an 8.9 x 6.5 cm hyperdense abnormality within the bladder consistent with clot. Bladder is moderately distended. Left renal atrophy is again noted. Retroperitoneal lymphadenopathy is similar to prior CT. Index left common iliac lymph node on image 202 measures 3.8 x 2.7 cm. Unenhanced images of the liver, spleen, adrenal glands and pancreas are unremarkable. There is no evidence for a bowel obstruction. Numerous skeletal sclerotic metastases are similar to prior CT as well. No pathologic fractures are identified. IMPRESSION: 1. 8.9 x 6.5 cm clot within the bladder. Moderately distended bladder. 2. Bilateral ureteral stents in place. Moderate bilateral hydroureteronephrosis. No urinary calculi. 3. No significant change in osseous and lymphatic metastases since prior CT. ACT 112: Negative or not required by law. Electronically signed by: Antonio Jama M.D. 03/29/2024 11:53 AM (1) Hematuria Hematuria type: unspecified type Qualified Code(s): R31.9 - Hematuria, unspecified
--- NOTE | 2024-03-30 13:32 | Urology Progress Note ---
Date of Service March 30, 2024 Assessment & Plan (1) Hospice care patient: (2) Blood clot in bladder: (3) Prostate cancer metastatic to multiple sites: (4) Hematuria: Plan I saw Mr. Chaudhari and his at the bedside today. We again discussed his clinical situation. At this point, neither surgery with cystoscopy and clot evacuation/fulguration or radiation have stopped his bleeding. He may benefit from bilateral nephrostomy tube placement to try to divert the urine, however he is still considering this option and where it fits within his goals of care. Urology will follow along. Admission and Anticipated Discharge Date Admission Date: March 29, 2024 Subjective Feeling tired Catheter has been draining without clots but is still bloody Receiving a transfusion today Denies any significant pain Physical Exam Physical Exam: Cachectic appearing, resting in bed, NAD Genitourinary: Velasquez catheter in place draining dark maroon urine. Results & Data Vital Signs (Past 12 Hours) Vital Signs Temp Pulse Pulse Resp BP BP Pulse Ox 03/30/24 08:51 36.2 C L 71 16 90/54 L 95 03/30/24 07:47 36.4 C L 71 17 87/53 L 98 O2 Del Method 03/30/24 08:51 03/30/24 07:47 Room Air PG Care Time/CCT Total # of Minutes Spent Total Time Spent with Patient: Total time spent is greater than 50% in coordination of care (as documented) at patient's floor/unit and/or counseling patient: Coding Level of Care Code 91927 SUB INP/OBS CARE 1/25MIN Diagnoses Hospice care patient Z51.5 Blood clot in bladder N32.89 Prostate cancer metastatic to multiple sites C61 Hematuria R31.9
[2024-03-30 14:23] LABS: Hematocrit (blood only) 23.4 % (42.0-52.0); Hemoglobin 7.6 g/dl (14.0-18.0); Mean Corpuscular Hemoglobin 27.9 pg (25.0-34.0); Mean Corpuscular Hgb Conc 32.5 g/dL (32.0-36.0); Mean Platelet Volume 11.3 fL (9.4-12.4); Nucleated RBC # (auto) 0.03 K/uL (0.00-0.12); Nucleated RBC % (auto) 0.7 %; Platelet Count 31 K/uL (130-400); RDW Standard Deviation 49.5 fL (36.4-46.3); Red Blood Count 2.72 M/uL (4.70-6.10); White Blood Count 4.31 K/ul (4.8-10.8)
[2024-03-30 14:49] LABS: Basophils # (auto) 0.02 K/uL (0.00-0.20); Basophils % (auto) 0.5 %; Eosinophils # (auto) 0.02 K/uL (0.00-0.50); Eosinophils % (auto) 0.5 %; Immature Granulocytes # (auto) 0.42 K/uL (0.01-0.20); Immature Granulocytes % (auto) 9.7 %; Lymphocytes # (auto) 0.53 K/uL (1.20-3.40); Lymphocytes % (auto) 12.3 %; Monocytes # (auto) 0.34 K/uL (0.11-0.59); Monocytes % (auto) 7.9 %; Neutrophils # (auto) 2.98 K/uL (1.40-6.50); Neutrophils % (auto) 69.1 %; Polychromasia 1+; Tear Drop Cells 1+
[2024-03-31 07:39] LABS: Hematocrit (blood only) 19.4 % (42.0-52.0); Hemoglobin 6.3 g/dl (14.0-18.0); Mean Corpuscular Hemoglobin 28.5 pg (25.0-34.0); Mean Corpuscular Hgb Conc 32.5 g/dL (32.0-36.0); Mean Corpuscular Volume 87.8 fL (80.0-100.0); Mean Platelet Volume 10.1 fL (9.4-12.4); Nucleated RBC # (auto) 0.04 K/uL (0.00-0.12); Nucleated RBC % (auto) 1.3 %; Platelet Count 24 K/uL (130-400); RDW Coefficient of Variation 16.3 % (11.5-14.5); RDW Standard Deviation 51.8 fL (36.4-46.3); Red Blood Count 2.21 M/uL (4.70-6.10); White Blood Count 3.11 K/ul (4.8-10.8)
[2024-03-31] MEDS ORDERED: SODIUM CHLORIDE 0.9% 250 ML IV PRN (07:56)
[2024-03-31] MEDS: SODIUM CHLORIDE 0.9% 250 ML IV PRN (09:46)
[2024-03-31 10:17] LABS: Calcium 7.5 mg/dl (8.6-10.3); Potassium 4.1 mmol/L (3.5-5.1)
[2024-03-31 10:22] LABS: Creatinine Clr Calc Pharmacy 32.6 ml/min; Est GFR (African American) 47.6 ml/min; Est GFR (Non-African American) 41.1 ml/min
--- NOTE | 2024-03-31 11:43 | Hospitalist Progress Note ---
Date of Service March 31, 2024 Assessment & Plan (1) Hematuria: (2) Blood clot in bladder: (3) Bilateral hydronephrosis: (4) Prostate cancer metastatic to multiple sites: (5) Hypocalcemia syndrome: (6) Metastasis to bone: (7) Chronic pain due to malignant neoplastic disease: Plan Brett Chaudhari is a 63y/o M with PMHx significant for metastatic prostate cancer [diagnosed in 2020; currently on hospice], type 2 diabetes mellitus, peripheral artery disease, nonischemic cardiomyopathy, chronic systolic heart failure, HTN, dyslipidemia, CKD stage III, history of CVA, history of tobacco use disorder, history of left common carotid artery stent placement, history of ureteral stent placement who presented to the ED via ambulance for evaluation of hematuria and difficulty urinating. Hematuria, Blood Clot in Bladder Bilateral Hydronephrosis Pt discharged home with hospice services on 03/28 Presenting with concern for difficulty urinating Per ED provider, hospice requesting rain placement and "noted that a catheter for bladder irrigation would be reasonable but they cannot accommodate that for care today and would like the patient admitted so that this could be performed and that would give them time to mobilize the resources and educate family." CT abd/pelvis was performed which noted 8.9 x 6.5 cm clot within a moderately distended bladder Urology was consulted, appreciate recs. Recommended the following: -ongoing bleeding from prostate and metastatic sites within the bladder. Fulguration and radiation have been unsuccessful in stopping this bleeding. -repeat surgical intervention would be low yield as bleeding would likely recur within a matter of days -pain is better with Rain catheter in place and irrigation having been performed, will continue with this current plan for now -recommend maintaining the catheter and hand irrigating as needed for any clot obstruction. -would be a candidate to resume CBI (continuous bladder irrigation) if clots become persistent, however this is likely not something he could do at home or on hospice. -also discussed the possibility of nephrostomy tubes to divert urine away from the bladder. One benefit of this would be that even if he has clot within the bladder, urine will continue to drain through the tubes, however placement of nephrostomy tubes would be a procedure and he would need to be transferred to another facility to have this performed. He is going to think about how this fits in with his goals of care. Pt will need further discussion to determine goals of care moving forward. Metastatic Prostate Cancer - On Home Hospice Care [employer] Recurrent Obstructive Uropathy s/p TURP [02/23/2024] Diagnosed 2020, completed Casodex; Xtandi, then to Taxotere/prednisone EOT 11/2023 Pt now on Eligard every [address] Novak --> Xgeva q6wk, held 2/2 hypocalcemia/hypophosphatemia; Pluvicto on hold 2/2 anemia/hematuria Follows with oncology, Dr. Elio Queen --> Last known visit on 03/06/24 Pt placed on home hospice care upon d/c from [facility] on 03/28 Continue flomax Acute on Chronic Anemia pancytopenia Hgb 7 on admission, has since downtrended to 6.2 s/p transfusion of 2U pRBCs in total thus far Pt has been receiving only leukoreduced blood transfusions However pancytopenic with Hx of radiation Pt agreeable to receiving blood transfusions PRN while on hospice Case discussed with pt's oncologist Dr Elio Queen on 03/30, advised to continue to monitor platelet levels at this time before transfusing in setting of bleeding above at 28K. Continue to monitor with CBCs 03/31- transfused 2U of blood for hgb of 6.3 and 1 U of platelets for platelets of 24K Type II DM Hgb A1c 6.3 in November 2003 Repeat A1c level 7.1 last admission Hold home medications ISS while hospitalized H/O Hypocalcemia Syndrome, Bone Metastases: Calcium 8.2 on admission, appears baseline ~6-8; Ionized calcium Will continue calcium supplementation Chronic Cancer-Related Pain: Pain control with home regimen Will resume home regimen, plan to keep pt as comfortable as possible. Other chronic medical conditions: Continue other home medications as ordered. DVT Prophylaxis: SCDs in setting of acute bleed Code Status: DNR/DNI - As per previous documentation and discussion with patient on admission Dispo: Back home with hospice services Admission and Anticipated Discharge Date Admission Date: March 29, 2024 Subjective States feeling tired. Rates pain 3/10. States waiting on his to come to discuss further and make decision about next steps. Review of Systems Review of Systems: All systems reviewed & are unremarkable except as noted in Subjective Physical Exam Physical Exam: General: Alert, oriented. No acute distress Skin: No noted rashes or bruises Psych: Appropriate mood and affect Neuro: No gross deficits HEENT: NC/AT CV: RRR Resp: Breath sounds clear bilaterally, no increased effort of breathing. Abdomen:Soft, nontender, nondistended Extremities: No edema in lower extremities bilaterally. Results & Data Results & Data Vital Signs (Past 12 Hours) Vital Signs Temp Pulse Pulse Resp BP BP Pulse Ox 03/31/24 10:46 36.5 C 64 16 108/61 97 03/31/24 10:16 36.9 C 69 17 108/68 03/31/24 10:01 36.9 C 63 17 108/68 97 03/31/24 10:01 36.8 C 69 16 104/63 97 03/31/24 09:41 36.4 C L 67 20 105/64 98 03/31/24 08:20 03/31/24 07:32 36.5 C 66 14 94/55 L 99 O2 Del Method 03/31/24 10:46 03/31/24 10:16 03/31/24 10:01 03/31/24 10:01 03/31/24 09:41 03/31/24 08:20 Room Air 03/31/24 07:32 Room Air (1) Hematuria Hematuria type: unspecified type Qualified Code(s): R31.9 - Hematuria, unspecified
--- NOTE | 2024-03-31 16:01 | Communication Note ---
Date of Service: March 31, 2024 Patient was not in his room ([id number]) when I came by this afternoon to see him Per nursing, patient is off the floor at current time Nursing reports that patient and family have questions Urology will revisit patient tomorrow
[2024-03-31 17:12] LABS: Hematocrit (blood only) 24.2 % (42.0-52.0); Hemoglobin 8.1 g/dl (14.0-18.0); Mean Corpuscular Hemoglobin 28.8 pg (25.0-34.0); Mean Corpuscular Hgb Conc 33.5 g/dL (32.0-36.0); Mean Corpuscular Volume 86.1 fL (80.0-100.0); Nucleated RBC # (auto) 0.04 K/uL (0.00-0.12); Nucleated RBC % (auto) 1.1 %; Platelet Count 42 K/uL (130-400); RDW Coefficient of Variation 15.2 % (11.5-14.5); Red Blood Count 2.81 M/uL (4.70-6.10); White Blood Count 3.79 K/ul (4.8-10.8)
[2024-03-31 18:23] LABS: ALC (manual) 0.53 K/uL (1.2-3.4); ANC (manual) 2.88 K/uL (1.4-6.5); Anisocytosis Present; Lymphocytes # (manual) 0.53 K/uL (1.2-3.4); Lymphocytes % (manual) 14 %; Metamyelocytes # (manual) 0.11 K/uL (0-0); Metamyelocytes % (manual) 3 %; Monocytes # (manual) 0.11 K/uL (0.11-0.59); Monocytes % (manual) 3 %; Myelocytes # (manual) 0.11 K/uL (0-0); Myelocytes % (manual) 3 %; Neutrophils # (manual) 2.88 K/uL (1.40-6.50); Neutrophils % (manual) 76 %; Ovalocytes 1+; Promyelocytes # (manual) 0.04 K/uL (0-0); Promyelocytes % (manual) 1 %
[2024-03-31] MEDS: MAGNESIUM HYDROXIDE SUSP 30 ML UDC PO PRN (22:05)
[2024-04-01 07:22] LABS: Hematocrit (blood only) 26.4 % (42.0-52.0); Hemoglobin 8.7 g/dl (14.0-18.0); Mean Corpuscular Hemoglobin 29.1 pg (25.0-34.0); Mean Corpuscular Volume 88.3 fL (80.0-100.0); Mean Platelet Volume 10.7 fL (9.4-12.4); Nucleated RBC # (auto) 0.05 K/uL (0.00-0.12); Nucleated RBC % (auto) 1.2 %; Platelet Count 37 K/uL (130-400); RDW Coefficient of Variation 15.2 % (11.5-14.5); RDW Standard Deviation 49.1 fL (36.4-46.3); Red Blood Count 2.99 M/uL (4.70-6.10)
[2024-04-01 08:04] LABS: Calcium 7.4 mg/dl (8.6-10.3); Potassium 4.1 mmol/L (3.5-5.1)
[2024-04-01 08:09] LABS: BUN Creatinine Ratio 21.4 (10-20); Creatinine Clr Calc Pharmacy 44.5 ml/min; Est GFR (African American) 69.4 ml/min; Est GFR (Non-African American) 59.9 ml/min
--- NOTE | 2024-04-01 09:54 | Urology Progress Note ---
Date of Service April 01, 2024 Assessment & Plan (1) Prostate cancer metastatic to multiple sites: (2) Hematuria: Plan Follow-up of metastatic prostate cancer, hematuria Patient afebrile, stable vitals Labs reviewedcreatinine improved to 1.26, hemoglobin 8.7 (has received 4 units PRBCs during admission) Continue to trend labs and transfuse as necessary per hospital medicine Velasquez patent and draining maroon urine Catheter has not required manual irrigation within the past day Okay to gently hand irrigate catheter as needed for catheter obstruction Neither surgery with cystoscopy and clot evacuation/fulguration or radiation have stopped his bleeding He may benefit from urinary diversion with bilateral percutaneous nephrostomy tubes There was previous discussion about this option depending on his goals of care since he was on hospice prior to admission He would like to pursue bilateral nephrostomy tube placement Discussed options with his at bedside and she is in agreement, all questions answered Discussed case with attending hospitalist Patient follows with urology and oncology with [facility], so ideally would transfer to [facility] will follow Admission and Anticipated Discharge Date Admission Date: March 29, 2024 Subjective Patient seen at bedside this am He has been considering bilateral nephrostomy tubes and would like to proceed Velasquez patent and draining maroon urine Reports that catheter has not required irrigation overnight Denies fever or chills Has intermittent bladder/pelvic and back discomfort Review of Systems Constitutional: as per Subjective / HPI Genitourinary: + as per Subjective / HPI Physical Exam Physical Exam: Cachectic appearing, resting in bed, NAD Respiratory: no respiratory distress and no labored breathing Neurologic: moves all extremities and awake Psychiatric: Orientation: alert and oriented x 3 Genitourinary: Velasquez catheter in place draining dark maroon urine Results & Data Vital Signs (Past 12 Hours) Vital Signs Temp Pulse Pulse Resp BP BP Pulse Ox 04/01/24 07:30 36.5 C 71 18 133/69 98 03/31/24 23:08 36.6 C 90 16 131/72 98 03/31/24 22:05 03/31/24 22:05 36.5 C 90 21 153/79 H 98 O2 Del Method 04/01/24 07:30 Room Air 03/31/24 23:08 Room Air 03/31/24 22:05 Room Air 03/31/24 22:05 Room Air PG Care Time/CCT Total # of Minutes Spent Total Time Spent with Patient: Total time spent is greater than 50% in coordination of care (as documented) at patient's floor/unit and/or counseling patient: Coding Level of Care Code 99710 SUB INP/OBS CARE 2/35MIN Diagnoses Prostate cancer metastatic to multiple sites C61 Hematuria R31.9
[2024-04-01] MEDS ORDERED: SODIUM CHLORIDE 0.9% 250 ML IV PRN ×2 (14:49→14:54)
--- NOTE | 2024-04-01 16:21 | Discharge Summary ---
Date of Service April 01, 2024 Admission HPI Per Admitting Provider Brett Chaudhari is a 63y/o M with PMHx significant for metastatic prostate cancer [diagnosed in 2020; currently on hospice], type 2 diabetes mellitus, peripheral artery disease, nonischemic cardiomyopathy, chronic systolic heart failure, HTN, dyslipidemia, CKD stage III, history of CVA, history of tobacco use disorder, history of left common carotid artery stent placement, history of ureteral stent placement and other medical problems listed below who presented to the ED via ambulance today for evaluation of hematuria. History obtained from patient, family member at bedside and associated chart review. Of note, patient was most recently hospitalized 03/24-03/28 here at [facility] and discharged home on hospice care. Patient seen at bedside with Dr. Izaguirre. Patient has been experiencing blood in his urine since last night. Patient endorses passing some small, bloody clots. No recent fevers, chills, SOB or chest pain. Patient was placed on 2L supplemental oxygen via NC in the ED 2/ increased RR of 26. His pulse oximetry monitor is not currently on. However, he was previous sating at 98% on RA prior to being put on oxygen. His hospice providers ultimately wanted him to come into today for evaluation. Rain catheter was placed in the ED; patient notes no discomfort with the Rain. He is agreeable to receiving blood transfusions PRN at this time. He is willing to stay now, but would ultimately like to go back home on hospice care with the Rain catheter in place as soon as possible. Patient wishes not to have any invasive surgical procedures. Admission Exam Per Admitting Provider Per ED note GENERAL: Awake, alert, cachectic-appearing, in no distress HENT: Normocephalic, atraumatic. Oropharynx unremarkable. EYES: Normal conjunctiva. Sclera non-icteric. NECK: Inspection normal. Non-tender. Supple. No nuchal rigidity. FROM. No masses. RESPIRATORY: Clear to auscultation. No wheezes. No rales. Normal respiratory effort. CARDIAC: Normal rate. Normal rhythm. No murmurs. No rubs. Extremities warm and well perfused. Pulses equal. No JVD. GI: Soft, non-distended. Suprapubic tenderness to palpation. No rebound or guarding. Fullness in the suprapubic region noted as well. RECTAL: Deferred. MUSCULOSKELETAL: Atraumatic. Chest examination reveals no tenderness. The back is symmetrical on inspection without obvious abnormality. There is no CVA tenderness to palpation. No joint edema. LOWER EXTREMITIES: Calves are equal size bilaterally and non-tender. No edema. No discoloration. NEURO: Normal sensorium. Generally weak but no focal sensory or motor deficits noted. SKIN: No rash or jaundice noted. Principal Diagnosis Hematuria secondary to metastatic prostate cancer Discharge Exam General: Alert, oriented. cachectic M in no acute distress Skin: No noted rashes or bruises Psych: Appropriate mood and affect Neuro: awake, alert, answers appropriately, speech fluent, moves extremities HEENT: NC/AT CV: RRR Resp: Breath sounds clear bilaterally, no increased effort of breathing. Abdomen:Soft, nontender, nondistended : Rain catheter placed draining dark bloody urine Extremities: No edema in lower extremities bilaterally. Moves extremities. Discharge Data Allergies Allergy/AdvReac Type Severity Reaction Status Date / Time amoxicillin [From Augmentin] AdvReac Intermediate DIZZINESS/C Verified 03/17/24 13:50 ONFUSION clavulanic acid AdvReac Intermediate DIZZINESS/C Verified 03/17/24 13:50 [From Augmentin] ONFUSION codeine AdvReac Intermediate Gastrointestinal Verified 03/17/24 13:50 Upset Consultations 03/29/24 12:51 ED Decision to Admit Stat 03/29/24 15:09 Consult Urology Routine Ordered Studies 03/29/24 11:01 CT abd pelvis wo con Stat FINDINGS: No pneumatosis, free air or portal venous gas is present. Bilateral ureteral stents are place. There is moderate bilateral hydronephrosis. There are no ureteral calculi. No renal or bladder calculi are present. There is an 8.9 x 6.5 cm hyperdense abnormality within the bladder consistent with clot. Bladder is moderately distended. Left renal atrophy is again noted. Retroperitoneal lymphadenopathy is similar to prior CT. Index left common iliac lymph node on image 202 measures 3.8 x 2.7 cm. Unenhanced images of the liver, spleen, adrenal glands and pancreas are unremarkable. There is no evidence for a bowel obstruction. Numerous skeletal sclerotic metastases are similar to prior CT as well. No pathologic fractures are identified. IMPRESSION: 1. 8.9 x 6.5 cm clot within the bladder. Moderately distended bladder. 2. Bilateral ureteral stents in place. Moderate bilateral hydroureteronephrosis. No urinary calculi. 3. No significant change in osseous and lymphatic metastases since prior CT. Hospital Course (1) Hematuria: (2) Blood clot in bladder: (3) Bilateral hydronephrosis: (4) Prostate cancer metastatic to multiple sites: (5) Hypocalcemia syndrome: (6) Metastasis to bone: (7) Chronic pain due to malignant neoplastic disease: Rachel Chaudhari is a 63y/o M with PMHx significant for metastatic prostate cancer [diagnosed in 2020; currently on hospice], type 2 diabetes mellitus, peripheral artery disease, nonischemic cardiomyopathy, chronic systolic heart failure, HTN, dyslipidemia, CKD stage III, history of CVA, history of tobacco use disorder, history of left common carotid artery stent placement, history of ureteral stent placement who presented to the ED via ambulance for evaluation of hematuria and difficulty urinating. Hematuria, Blood Clot in Bladder Bilateral Hydronephrosis Pt discharged home with hospice services on 03/28 Presenting with concern for difficulty urinating Per ED provider, hospice requesting rain placement and "noted that a catheter for bladder irrigation would be reasonable but they cannot accommodate that for care today and would like the patient admitted so that this could be performed and that would give them time to mobilize the resources and educate family." CT abd/pelvis was performed which noted 8.9 x 6.5 cm clot within a moderately distended bladder Urology was consulted, flaquito simpson. Recommended the following: -ongoing bleeding from prostate and metastatic sites within the bladder. Fulguration and radiation have been unsuccessful in stopping this bleeding. -repeat surgical intervention would be low yield as bleeding would likely recur within a matter of days -pain is better with Rain catheter in place and irrigation having been performed, will continue with this current plan for now -recommend maintaining the catheter and hand irrigating as needed for any clot obstruction. -would be a candidate to resume CBI (continuous bladder irrigation) if clots become persistent, however this is likely not something he could do at home or on hospice. -also discussed the possibility of nephrostomy tubes to divert urine away from the bladder. One benefit of this would be that even if he has clot within the bladder, urine will continue to drain through the tubes, however placement of nephrostomy tubes would be a procedure and he would need to be transferred to another facility to have this performed. He is going to think about how this fits in with his goals of care. Pt will need further discussion to determine goals of care moving forward. 04/01 Discussed with pt, and urology - pt would like to proceed w/ nephrostomy tube placement -> pt is to be transferred to [facility] for further eval and care. Metastatic Prostate Cancer - On Home Hospice Care [employer] Recurrent Obstructive Uropathy s/p TURP [02/23/2024] Diagnosed 2020, completed Casodex; Xtandi, then to Taxotere/prednisone EOT 11/2023 Pt now on Eligard every [address] Novak --> Xgeva q6wk, held 2/2 hypocalcemia/hypophosphatemia; Pluvicto on hold 2/2 anemia/hematuria Follows with oncology, Dr. Elio Queen --> Last known visit on 03/06/24 Pt placed on home hospice care upon d/c from [facility] on 03/28 Continue flomax Acute on Chronic Anemia pancytopenia Hgb 7 on admission, has since downtrended to 6.2 s/p transfusion of 2U pRBCs in total thus far Pt has been receiving only leukoreduced blood transfusions However pancytopenic with Hx of radiation Pt agreeable to receiving blood transfusions PRN while on hospice Case discussed with pt's oncologist Dr Elio Queen on 03/30 (by previous hospitalist) Continue to monitor with CBCs 03/31- transfused 2U of blood for hgb of 6.3 and 1 U of platelets for platelets of 24K 04/01 will transfuse 1 unit of plt given ongoing hematuria Type II DM Hgb A1c 6.3 in November 2003 Repeat A1c level 7.1 last admission Hold home medications ISS while hospitalized H/O Hypocalcemia Syndrome, Bone Metastases: Calcium 8.2 on admission, appears baseline ~6-8; Ionized calcium continue calcium supplementation Chronic Cancer-Related Pain: Pain control with home regimen cont. home regimen, plan to keep pt as comfortable as possible. Other chronic medical conditions: Continue other home medications as ordered. Total Time Total Time Spent Total Time Spent (In Minutes): 40 Discharge Plan Discharge Items Patient Disposition: Transfer Acute Care Hospital Reason For Visit: URINARY SYMPTOMS,METASTATIC PROSTATE CANCER Discharge Diagnosis: Hematuria secondary to metastatic prostate cancer Activity: Per Instructions section Non-emergency contact: Primary Care Provider, Specialist, Oncologist and Urologist Call non-emergency contact if: you have any medication questions and your symptoms worsen Follow-up/Referrals: Dru Fritz MD [Primary Care Provider] - Diet: Regular Diet Texture: Easy to Chew Addtl Attending Provider Instructions: Patient to be transferred to [facility] for further evaluation and care of his metastatic prostate cancer and hematuria, considering nephrostomy tube placement as per recommendations of [facility] urology. Pending Studies at Discharge: No Stand-Alone Forms: My [facility] ebindle Skilled Items Patient informed of condition?: Yes DNR: Yes Discharge Level of Care: Other Communicable Disease: No Discharge Prognosis: Other Lines: Peripheral IV Urinary Catheter: Yes Medications and DC Order Prescriptions: Continued acetaminophen [Tylenol Extra Strength] 500 mg tablet 1,000 mg PO Q6H PRN (Reason: Pain) Tradjenta 5 mg tablet 5 mg PO QAM buspirone 5 mg tablet 5 mg PO TID Jardiance 25 mg tablet 25 mg PO QAM Hold Instructions: Hold until told to resume by Nephrology ondansetron HCl 8 mg Tablet 8 mg PO DIRECTED PRN (Reason: Nausea) prochlorperazine maleate [Compazine] 10 mg tablet 10 mg PO DIRECTED PRN (Reason: Nausea) K-Phos Original 500 mg tablet,soluble 500 mg PO BID morphine 15 mg Tablet Extended Release 15 mg PO BID PRN (Reason: Pain) tamsulosin 0.4 mg Capsule 0.4 mg PO QAM Qty: 30 0RF metoprolol tartrate 25 mg Tablet 12.5 mg PO BID Qty: 30 0RF magnesium chloride [Mag 64] 64 mg Tablet,Delayed Release (Dr/Ec) 64 mg PO BID Qty: 60 0RF calcium carbonate [Tums] 200 mg calcium (500 mg) Tablet,Chewable 1,500 mg PO TID Qty: 360 0RF lidocaine HCl 2 % jelly in applicator 1 ml EXT BID PRN (Reason: Other) morphine 15 mg tablet 15 mg PO Q4H PRN (Reason: pain) Discharge Orders: Discharge Order (Routine); Ordered 04/01/24 Ordered By: Zach Lu/Other Patient Handouts: What is Hematuria? Admission Data Admit Date/Time: 03/29/24 12:59 Attending Provider: Zach Saldana Admit Provider: Ricardo Izaguirre Primary Care Provider: Dru Fritz Other Providers: Ricardo Izaguirre; Miguel Hale
[2024-04-01] MEDS: hydrOXYzine HCl 25 MG TAB PO STA (17:38)
== END 2024-04-01 18:51 | disposition short-term general hospital (02) | DRG 699 ==
LOC: ED 10:20 → 2N 12:59 → SUATTDRO 12:59 → 2N 14:58 → 3N 22:59

== ENCOUNTER 2024-04-09 07:09 | Inpatient (IN) ==
--- NOTE | 2024-04-09 07:26 | Emergency Department Note ---
History of Present Illness General Chief complaint: Hematuria Stated complaint: CLOGGED CATHETER Time Seen by Provider: 04/09/24 07:13 Source: patient, family ( was at the bedside), RN notes reviewed and old records reviewed (04/01/2024-discharge summary for similar) Mode of arrival: ambulatory Limitations: no limitations History of Present Illness Maximum Pain Intensity: 2 This patient is a 63-year-old male has history of metastatic prostate cancer and history of problems with hematuria, comes in with hematuria and clogged catheter. He said that he was having straight blood they did irrigate it and now it is draining he feels a lot better he did have suprapubic pressures and no fever. He is on no blood thinners. He was here recently and discharged 8 days ago for similar complaints at the time he was on hospice although he tells me is not they took him off of hospice he thinks. He does not want to be intubated or have CPR done. And so is a DNR/DNI. No fever no known nausea or vomiting. No fall or trauma. No bleeding elsewhere. Home Medications Medication Instructions Recorded Confirmed Type empagliflozin 25 mg tablet 25 mg PO QAM 05/31/21 04/09/24 History (Jardiance) acetaminophen 500 mg tablet 1,000 mg PO Q6H PRN Pain 12/06/22 04/09/24 History (Tylenol Extra Strength) linagliptin 5 mg tablet (Tradjenta) 5 mg PO QAM 12/06/22 04/09/24 History ondansetron HCl 8 mg tablet 8 mg PO DIRECTED PRN Nausea 01/11/24 04/09/24 History potassium phosphate, monobasic 500 500 mg PO BID 01/11/24 04/09/24 History mg soluble tablet (K-Phos Original) prochlorperazine maleate 10 mg 10 mg PO DIRECTED PRN Nausea 01/11/24 04/09/24 History tablet (Compazine) morphine 15 mg tablet,extended 15 mg PO BID Pain 02/15/24 04/09/24 History release magnesium chloride 64 mg 64 mg PO BID #60 tabs 02/22/24 04/09/24 Rx (magnesium chloride) tablet,delayed release (Mag 64) metoprolol tartrate 25 mg tablet 12.5 mg (1/2 x 25 mg) PO BID #30 02/22/24 04/09/24 Rx tabs tamsulosin 0.4 mg capsule 0.4 mg PO QAM #30 caps 02/22/24 04/09/24 Rx buspirone 5 mg tablet 5 mg PO TID 03/11/24 04/09/24 History lidocaine HCl 2 % mucosal jelly in 1 ml EXT BID PRN Other 03/24/24 04/09/24 History applicator morphine 15 mg immediate release 15 mg PO Q4H PRN pain 03/29/24 04/09/24 History tablet atorvastatin 80 mg tablet 80 mg PO DAILY 04/09/24 04/09/24 History calcitriol 0.25 mcg capsule 0.25 mcg PO DAILY 04/09/24 04/09/24 History calcium carbonate (Tums) 500 mg PO DAILY 04/09/24 04/09/24 History cyanocobalamin (vitamin B-12) 1,000 mcg PO DAILY 04/09/24 04/09/24 History 1,000 mcg tablet ergocalciferol (vitamin D2) 1,250 1,250 mcg PO MARIANO 04/09/24 04/09/24 History mcg (50,000 unit) capsule ferrous sulfate 325 mg (65 mg 325 mg PO DAILY 04/09/24 04/09/24 History iron) tablet (FeroSul) tramadol 50 mg tablet 150 mg PO TID PRN Pain, Moderate 04/09/24 04/09/24 History Allergies Allergy/AdvReac Type Severity Reaction Status Date / Time amoxicillin [From Augmentin] AdvReac Intermediate DIZZINESS/C Verified 03/17/24 13:50 ONFUSION clavulanic acid AdvReac Intermediate DIZZINESS/C Verified 03/17/24 13:50 [From Augmentin] ONFUSION codeine AdvReac Intermediate Gastrointestinal Verified 03/17/24 13:50 Upset Past Med/Surg History Problem List Thrombocytopenia (Acute) Anemia (Acute) Obstructed Velasquez catheter (Acute) Hematuria (Acute) Prostate cancer metastatic to bone (Acute) Hospice care patient (Acute) Blood clot in bladder (Acute) Anemia (Acute) Hematuria (Acute) Chronic pain due to malignant neoplastic disease Metastasis to bone Prostate cancer metastatic to multiple sites Blood clot in bladder Dyspnea and respiratory abnormalities Elevated lactic acid level (Acute) Thrombocytopenia (Acute) Acute UTI (urinary tract infection) (Acute) Sepsis (Acute) Non-ST elevation NE (NSTEMI) (Acute) Generalized weakness (Acute) Palliative care by specialist Advanced care planning/counseling discussion Falls Pelvic pain in male Cancer related pain Anemia (Acute) Complication of Velasquez catheter (Acute) Hematuria (Acute) Hypocalcemia syndrome Bilateral hydronephrosis Abnormal blood electrolyte level Symptomatic anemia (Acute) History of CVA (cerebrovascular accident) HFrEF (heart failure with reduced ejection fraction) Acute on chronic anemia (Acute) Acute renal failure superimposed on stage 3 chronic kidney disease (Acute) Pancytopenia due to chemotherapy Adult failure to thrive (Acute) Elevated troponin (Acute) Prostate cancer metastatic to bone (Chronic) Prostate cancer Biopsy on 06/10/21 Tobacco abuse (Chronic) HLD (hyperlipidemia) (Chronic) HTN (hypertension) (Chronic) DM2 (diabetes mellitus, type 2) (Chronic) PAD (peripheral artery disease) BPH with obstruction/lower urinary tract symptoms (Acute) Medical History History of left heart catheterization (LHC) "cardiac cath -02/04 10-20% block" Stroke Surgical History History of left common carotid artery stent placement Family History Mother , in her 80s Myocardial infarction H/O cardiac surgery Diabetes Father , 58yo Myocardial infarction Lung disease From working in [employer]; Brother No problems noted. Brother No problems noted. Brother No problems noted. Brother No problems noted. Brother No problems noted. Daughter No problems noted. Son No problems noted. Son Diabetes Other Heart disease Hypertension Social History Smoking Status: Current every day smoker Tobacco Type: Cigarettes packs per day: 0.5; Cigarettes Per Day: pack per day; Second Hand Exposure: Yes; Do You Dip or Chew Tobacco: No; Hx Alcohol Use: No Hx Substance Use: No Preferred Language: Albanian Communication Ability: Effective Visual Impairment: No Limitations Hearing Ability: Normal Clinical Rn Required: No Beliefs That Will Affect Care: None marital status: Current Living Situation: Spouse Current Living Situation Comment: , daughter/her spouse current occupational status: retired Feels Safe at Home: Yes Diet: regular caffeine: No during the past year weight has: decreased > 10 lbs Assistive Devices: Bedside Commode, Hospital Bed, Walker and Wheelchair Review of Systems A total of 10 systems reviewed and were otherwise negative Physical Exam Vital Signs Vital Signs - 24 hr 04/09/24 07:15 04/09/24 07:38 04/09/24 08:36 Temperature 36.5 C Temperature Source Oral Pulse Rate 126 H 121 H Pulse Rate [Left Finger] 97 H Pulse Rhythm Regular Regular Pulse Rhythm [Left Finger] Regular Pulse Strength Normal Pulse Strength [Left Finger] Normal Respiratory Rate 18 20 20 Respiratory Effort / Characteristics Non-Labored Spontaneous Non-Labored Spontaneous Respiratory Depth Normal Normal Respiratory Pattern Regular Regular Blood Pressure 90/60 L Blood Pressure [Right Arm] 136/103 H Blood Pressure Mean 70 Blood Pressure Mean [Right Arm] 114 Blood Pressure Position Sitting Blood Pressure Position [Right Arm] Sitting Pulse Oximetry 99 98 100 Oxygen Delivery Method Room Air Room Air Room Air Sepsis Recent Fever Within 48 Hours No Sepsis New/Unexplained Change in Mental Status No Sepsis Action Taken by Nursing Physician Notified 04/09/24 08:52 Temperature Temperature Source Pulse Rate 101 H Pulse Rate [Left Finger] Pulse Rhythm Pulse Rhythm [Left Finger] Pulse Strength Pulse Strength [Left Finger] Respiratory Rate Respiratory Effort / Characteristics Respiratory Depth Respiratory Pattern Blood Pressure Blood Pressure [Right Arm] Blood Pressure Mean Blood Pressure Mean [Right Arm] Blood Pressure Position Blood Pressure Position [Right Arm] Pulse Oximetry Oxygen Delivery Method Sepsis Recent Fever Within 48 Hours Sepsis New/Unexplained Change in Mental Status Sepsis Action Taken by Nursing General: Well developed well nourished, cachectic middle-age male who appears in no acute distress, breathing comfortably on room air. Normal speech HEENT: Normal cephalic atraumatic. Pupils are equal round and reactive to light. Extraocular movements are intact. Oropharynx is pink with moist mucous membranes. No swelling of the mouth lips or tongue. Neck: Supple with a midline trachea. No meningeal signs or stiffness, no JVD or bruits. No Stridor. Chest: Clear to auscultation bilaterally. No wheezes or rhonchi. No increased work of breathing. Heart: Regular rate and rhythm without murmurs or gallops. Abdomen: Soft nontender, nondistended without rebound guarding or rigidity. Velasquez catheter has grossly bloody urine in the bag Extremities: No cyanosis clubbing or edema. No calf tenderness or assymetry Spine/Back. Non tender to palpation. No CVA tenderness Skin: Good turgor without rashes. Neurologic exam: Cranial nerves two through 12 are intact. Motor and sensation are intact and symmetrical throughout. Course Administered Medications Discontinued Medications Morphine Sulfate (Morphine Sulfate 2 Mg/Ml Carp) 2 mg IV NOW STA Stop: 04/09/24 08:34 Last Admin: 04/09/24 08:40 Dose: 2 mg Documented By: DANIELA Ondansetron HCl (Ondansetron Inj 2 Mg/Ml 2 Ml Vial) 4 mg IV NOW STA Stop: 04/09/24 08:34 Last Admin: 04/09/24 08:40 Dose: 4 mg Documented By: DANIELA Medical Decision Making Differential Diagnosis Cancer complication, Velasquez catheter obstruction, anemia, electrolyte or metabolic abnormality, infection, dehydration, sepsis, cardiac disease Medical Records Attestation: I reviewed the patient's medical records. Home Medications Current Medication List: was personally reviewed by me Laboratory Data Attestation: I reviewed the patient's lab results. 04/09/24 07:30 04/09/24 07:30 Lab Results 04/09/24 04/09/24 Range/Units 07:30 08:09 WBC 4.32 L (4.8-10.8) K/ul RBC 2.69 L (4.70-6.10) M/uL Hgb 8.0 L (14.0-18.0) g/dl Hct 23.9 L (42.0-52.0) % MCV 88.8 (80.0-100.0) fL MCH 29.7 (25.0-34.0) pg MCHC 33.5 (32.0-36.0) g/dL RDW Std Deviation 48.7 H (36.4-46.3) fL RDW Coeff of Clara 15.0 H (11.5-14.5) % Plt Count 28 L* (130-400) K/uL MPV 9.8 (9.4-12.4) fL Immature Gran % (Auto) 7.9 % Neut % (Auto) 78.2 % Lymph % (Auto) 6.9 % [place] % (Auto) 6.3 % Eos % (Auto) 0.2 % Baso % (Auto) 0.5 % Neut # (Auto) 3.38 (1.40-6.50) K/uL Lymph # (Auto) 0.30 L (1.20-3.40) K/uL [place] # (Auto) 0.27 (0.11-0.59) K/uL Eos # (Auto) 0.01 (0.00-0.50) K/uL Baso # (Auto) 0.02 (0.00-0.20) K/uL Immature Gran # (Auto) 0.34 H (0.01-0.20) K/uL PT 12.3 H (9.0-12.0) Seconds INR 1.1 (0.9-1.1) APTT 30 (21-31) Seconds PTT Ratio 1.1 Sodium 143 (136-145) mmol/L Potassium 4.0 (3.5-5.1) mmol/L Chloride 109 H (98-107) mmol/L Carbon Dioxide 22 (21-32) mmol/L Anion Gap 12 H (3-11) BUN 23 (6-23) mg/dl Creatinine 1.26 (0.6-1.4) mg/dl Est Cr Clr Drug Dosing 46.2 ml/min Est GFR ( Amer) 69.4 ml/min Est GFR (Non-Af Amer) 59.9 ml/min BUN/Creatinine Ratio 18.3 (10-20) Glucose 207 H (70-99(Fasting)) mg/dl Calcium 7.8 L (8.6-10.3) mg/dl Total Bilirubin 0.5 (0.2-1.0) mg/dl AST 25 (13-39) U/L ALT 8 (7-52) U/L Alkaline Phosphatase 1003 H (34-104) U/L Troponin I High Sens 59.6 H* (0-20) pg/ml Total Protein 5.7 L (6.0-8.3) gm/dl Albumin 2.8 L (3.4-5.0) gm/dl Globulin 2.9 (2.5-4.0) gm/dl Albumin/Globulin Ratio 1.0 (0.9-2) Lipase 14 (11-82) U/L Blood Type A Positive Antibody Screen NEGATIVE Crossmatch See Detail ECG Data Attestation: I personally reviewed and interpreted this ECG as follows: Indication: + tachycardia Rate (beats per minute): 120 Rhythm: + sinus tachycardia and + other (Poor baseline) ECG Intervals/blocks: + Normal QRS and + Normal QT ECG ST segments: + Normal ST segments ECG Findings: no PACs or no PVCs Comparison ECG Date: from (03/24/24) Change: the following changes noted (Rate is increased.) MDM Narrative This patient comes in as described above. He has a clogged Velasquez catheter this was unclogged and he felt better he does have metastatic prostate cancer is DNR/DNI and has been hospice although he tells me he is not presently on hospice. IV access was established and she was typed and screened. Blood work was obtained. He was noted to be tachycardic so an EKG was also obtained. His vital signs improved and he was no longer tachycardic or hypotensive. His EKG shows what appears to be sinus tachycardia poor baseline his heart rate did improve. His troponin was elevated however he has no chest pain or shortness of breath and his heart rate is now better. His hemoglobin is low at 8, he has been much lower than that so he appears about baseline his platelets are also low at 28 and he runs in the 20s to 40s. This does not help the situation. I talked the patient at length with his . He has had no chest pain or shortness of breath. He does have chronic pain related to prostate cancer to given morphine 2 mg IV. I do think he needs to be admitted/observed for further inpatient treatment and evaluation. I have [facility] the case at length [facility] monitoring: Orders placed in EMR for continuous cardiac monitoring upon my evaluation patient reviewed normal sinus rhythm rate of 90 Impression & Plan Prostate cancer metastatic to bone, Hematuria, Obstructed Velasquez catheter, Anemia, Thrombocytopenia Discharge Plan Visit Data Chief Complaint: Hematuria Stated Complaint: CLOGGED CATHETER ED Provider: David Dailey Discharge Problem: Prostate cancer metastatic to bone, Hematuria, Obstructed Velasquez catheter, Anemia, Thrombocytopenia Discharge Instructions Interventions: ED Discharge Assessment Last Done: 04/09/24 09:27 Discharge Problem: Hematuria Qualifiers: Hematuria type: gross Qualified Code(s): R31.0 - Gross hematuria Obstructed Velasquez catheter Qualifiers: Encounter type: initial encounter Qualified Code(s): T83.091A - Other mechanical complication of indwelling urethral catheter, initial encounter Anemia Qualifiers: Anemia type: unspecified type Qualified Code(s): D64.9 - Anemia, unspecified
[2024-04-09 08:09] LABS: Albumin Level 2.8 gm/dl (3.4-5.0); BUN Creatinine Ratio 18.3 (10-20); Bilirubin,Total 0.5 mg/dl (0.2-1.0); Calcium 7.8 mg/dl (8.6-10.3); Creatinine Clr Calc Pharmacy 46.2 ml/min; Est GFR (African American) 69.4 ml/min; Est GFR (Non-African American) 59.9 ml/min; Globulin 2.9 gm/dl (2.5-4.0); Total Protein 5.7 gm/dl (6.0-8.3)
[2024-04-09 08:21] LABS: Troponin I High Sensitivity 59.6 pg/ml (0-20)
[2024-04-09 08:25] LABS: INR 1.1 (0.9-1.1); Partial Thromboplastin Ratio 1.1; Partial Thromboplastin Time 30 Seconds (21-31); Prothrombin Time 12.3 Seconds (9.0-12.0)
[2024-04-09 08:38] LABS: Hematocrit (blood only) 23.9 % (42.0-52.0); Mean Corpuscular Hemoglobin 29.7 pg (25.0-34.0); Mean Corpuscular Hgb Conc 33.5 g/dL (32.0-36.0); Mean Corpuscular Volume 88.8 fL (80.0-100.0); Mean Platelet Volume 9.8 fL (9.4-12.4); Platelet Count 28 K/uL (130-400); RDW Standard Deviation 48.7 fL (36.4-46.3); Red Blood Count 2.69 M/uL (4.70-6.10); White Blood Count 4.32 K/ul (4.8-10.8)
[2024-04-09] MEDS: ONDANSETRON INJ 2 MG/ML 2 ML VIAL IV STA (08:40)
[2024-04-09] MEDS: MoRPHine SULFATE 2 MG/ML CARP IV STA (08:40)
[2024-04-09 08:49] LABS: Basophils # (auto) 0.02 K/uL (0.00-0.20); Basophils % (auto) 0.5 %; Eosinophils # (auto) 0.01 K/uL (0.00-0.50); Eosinophils % (auto) 0.2 %; Immature Granulocytes # (auto) 0.34 K/uL (0.01-0.20); Immature Granulocytes % (auto) 7.9 %; Lymphocytes % (auto) 6.9 %; Monocytes # (auto) 0.27 K/uL (0.11-0.59); Monocytes % (auto) 6.3 %; Neutrophils # (auto) 3.38 K/uL (1.40-6.50); Neutrophils % (auto) 78.2 %
--- NOTE | 2024-04-09 09:15 | History & Physical Report ---
Date of Service April 09, 2024 Assessment & Plan (1) Obstructed Rain catheter: (2) Hematuria: (3) Anemia: (4) Thrombocytopenia: (5) Prostate cancer metastatic to bone: Plan Brett Chaudhari is a 63y/o M with PMHx significant for metastatic prostate cancer [diagnosed in 2020], type 2 diabetes mellitus, peripheral artery disease, nonischemic cardiomyopathy, chronic systolic heart failure, HTN, dyslipidemia, CKD stage III, history of CVA, history of tobacco use disorder, history of left common carotid artery stent placement, history of ureteral stent placement and other medical problems listed below who presented to the ED 2/2 his rain catheter being clogged. Please refer to full HPI for details regarding recent events and recurrent hospitalizations. Obstructed Rain catheter Hematuria Metastatic prostate cancer to bone - currently not undergoing any further treatment s/p trial of chemo/xrt Admit to medical continue manual irrigation prn consult urology transfuse as below follows urology Dr. Novak - plan is to undergo b/l nephrostomy tube placement if plt count allows as OP Follows Onc Dr. Queen Acute on chronic anemia in setting of previous chemotherapy and chronic bleeding from hematuria Thrombocytopenia hgb 8.0, was 9.4 on discharge from [facility] transfuse 1 unit PRBC/1 Pack of platelets trend hgb Blood consent was obtained from the patient (or patient delegate) as delegated by Dr. Ruff. Risks and benefits were explained. All questions were answered, and the patient (or patient delegate) was offered the opportunity to discuss with attending physician and declined. Elevated troponin pt w/o chest pain repeat 2hr trop stable, no indication for repeat Abnormal UA await urine culture, empirically tx with IV rocephin given BP initially low on arrival will obtain blood cultures, but otherwise no suspicion for sepsis at this time T2DM hold Tradjenta and Jardiance novolog per protocol A1C 7.1 on 03/25/24 H/O Hypocalcemia Syndrome, Bone Metastases: ionized calcium normal, appears baseline ~6-8; place on Will continue calcium supplementation but switch to suspension as pt can't take tablet Chronic Cancer-Related Pain: continue Morphine ER15mg BID, pt prefers tramadol over IR Morphine, so will continue Tramadol Other chronic medical conditions: Continue other home medications as ordered. DVT Prophylaxis: none in setting of thrombocytopenia /anemia Code Status: DNR/DNI - discussed with pt and Dispo: Pt is currently w/o home services, was on [facility] but was dropped due to being hospitalized, would like to explore other hospice agencies and would like to continue home hospice vs Pt was seen and examined in collaboration with Dr. Ruff, please see addendum A total of 80 minutes was spent coordinating, documenting, and providing care for this patient excluding time spent in the performance of separately billed services. This included personally viewing all current laboratories and imaging studies, medication reconciliation, outpatient chart review, and discussion with specialists. History of Present Illness Chief Complaint: Rain clogged. Primary Care Provider: Dru Fritz MD Brett Chaudhari is a 63y/o M with PMHx significant for metastatic prostate cancer [diagnosed in 2020], type 2 diabetes mellitus, peripheral artery disease, nonischemic cardiomyopathy, chronic systolic heart failure, HTN, dyslipidemia, CKD stage III, history of CVA, history of tobacco use disorder, history of left common carotid artery stent placement, history of ureteral stent placement and other medical problems listed below who presented to the ED 2/2 his rain catheter being clogged. Patient with recent hospitalizations at [facility] 03/24 to 03/28 in setting of known metastatic prostate cancer With Difficulty urinating, chronic gross hematuria, acute on chronic anemia with generalized weakness, difficulty walking and severe protein calorie malnutrition. He was placed on hospice at discharge. he was then rehospitalized on 03/29 to 04/01 secondary to persistent hematuria and passing clots. Urology was consulted and it was felt that ongoing bleeding was from prostate and metastatic sites within the bladder. He previously had fulguration and radiation that was unsuccessful in stopping the bleeding. It was felt repeat surgical intervention would be low yield and a Rain catheter was placed on this admission. It was recommended he maintain the catheter and hand irrigate as needed for any clot obstruction. patient did require transfusion of platelets and blood. He was also offered possibility of a bilateral nephrostomy tube placements as an option and therefore he was transferred to [facility] to explore this. He was seen and evaluated by his [facility] urologist who had a long discussion with the patient regarding options to continue bilateral ureteral stents and Rain catheter versus transitioning to nephrostomy tubes. Patient at that time was happy with Rain and stent placement and he would like to hold off on any IR procedures. He was discharged with trying manual irrigation of bladder. His pain medication was adjusted per palliative care team and the understanding was hospice would readmit patient after making decision on nephrostomy tubes. Since Hospitalization he did follow up with urologist Dr. Novak. At this visit pt is wishing to puruse nephrostomy tube placements to improve QOL if plt count allows. Pts discharging hgb at [facility] was 8.7 and 9.4 at [facility]. On 04/07 in outpt setting it was 8.8 with plt 31. Pt meditech and outpt epic records thoroughly reviewed. helps elicit history at bedside. Pt reports rain was clogged this morning. Prior to it being clogged it was draining brown/dark red urine. After cath bec bradley clogged he was having significant pain in lower abdomen. In ED nursing was able to irrigate cath and unclog. It is now draining bright red blood. Pt reports feeling very tired and weak. He denies f/c/s, chest pain, sob, cough, uri sx, n/v/d or abd pain. He moved this bowels this morning. They do not move freq due to decreased oral intake. He denies blood in stool but reports dark stool from iron. He again confirms wishes to pursue nephrosotomy tubes. His pain has been controlled at home with MS maldonado, but wishes to switch to tramadol instead of IR morphine. has noticed increased twitching when he gets morphine. He still smokes 2 cigarettes a day. Allergies Allergy/AdvReac Type Severity Reaction Status Date / Time amoxicillin [From Augmentin] AdvReac Intermediate DIZZINESS/C Verified 03/17/24 13:50 ONFUSION clavulanic acid AdvReac Intermediate DIZZINESS/C Verified 03/17/24 13:50 [From Augmentin] ONFUSION codeine AdvReac Intermediate Gastrointestinal Verified 03/17/24 13:50 Upset Home Medications Medication Instructions Recorded Confirmed Type empagliflozin 25 mg tablet 25 mg PO QAM 05/31/21 04/09/24 History (Jardiance) acetaminophen 500 mg tablet 1,000 mg PO Q6H PRN Pain 12/06/22 04/09/24 History (Tylenol Extra Strength) linagliptin 5 mg tablet (Tradjenta) 5 mg PO QAM 12/06/22 04/09/24 History ondansetron HCl 8 mg tablet 8 mg PO DIRECTED PRN Nausea 01/11/24 04/09/24 History potassium phosphate, monobasic 500 500 mg PO BID 01/11/24 04/09/24 History mg soluble tablet (K-Phos Original) prochlorperazine maleate 10 mg 10 mg PO DIRECTED PRN Nausea 01/11/24 04/09/24 History tablet (Compazine) morphine 15 mg tablet,extended 15 mg PO BID Pain 02/15/24 04/09/24 History release magnesium chloride 64 mg 64 mg PO BID #60 tabs 02/22/24 04/09/24 Rx (magnesium chloride) tablet,delayed release (Mag 64) metoprolol tartrate 25 mg tablet 12.5 mg (1/2 x 25 mg) PO BID #30 02/22/24 04/09/24 Rx tabs tamsulosin 0.4 mg capsule 0.4 mg PO QAM #30 caps 02/22/24 04/09/24 Rx buspirone 5 mg tablet 5 mg PO TID 03/11/24 04/09/24 History lidocaine HCl 2 % mucosal jelly in 1 ml EXT BID PRN Other 03/24/24 04/09/24 History applicator morphine 15 mg immediate release 15 mg PO Q4H PRN pain 03/29/24 04/09/24 History tablet atorvastatin 80 mg tablet 80 mg PO DAILY 04/09/24 04/09/24 History calcitriol 0.25 mcg capsule 0.25 mcg PO DAILY 04/09/24 04/09/24 History calcium carbonate (Tums) 500 mg PO DAILY 04/09/24 04/09/24 History cyanocobalamin (vitamin B-12) 1,000 mcg PO DAILY 04/09/24 04/09/24 History 1,000 mcg tablet ergocalciferol (vitamin D2) 1,250 1,250 mcg PO MARIANO 04/09/24 04/09/24 History mcg (50,000 unit) capsule ferrous sulfate 325 mg (65 mg 325 mg PO DAILY 04/09/24 04/09/24 History iron) tablet (FeroSul) tramadol 50 mg tablet 150 mg PO TID PRN Pain, Moderate 04/09/24 04/09/24 History Past Med/Surg History Problem List Thrombocytopenia (Acute) Anemia (Acute) Obstructed Rain catheter (Acute) Hematuria (Acute) Prostate cancer metastatic to bone (Acute) Hospice care patient (Acute) Blood clot in bladder (Acute) Anemia (Acute) Hematuria (Acute) Chronic pain due to malignant neoplastic disease Metastasis to bone Prostate cancer metastatic to multiple sites Blood clot in bladder Dyspnea and respiratory abnormalities Elevated lactic acid level (Acute) Thrombocytopenia (Acute) Acute UTI (urinary tract infection) (Acute) Sepsis (Acute) Non-ST elevation [place] (NSTEMI) (Acute) Generalized weakness (Acute) Palliative care by specialist Advanced care planning/counseling discussion Falls Pelvic pain in male Cancer related pain Anemia (Acute) Complication of Rain catheter (Acute) Hematuria (Acute) Hypocalcemia syndrome Bilateral hydronephrosis Abnormal blood electrolyte level Symptomatic anemia (Acute) History of CVA (cerebrovascular accident) HFrEF (heart failure with reduced ejection fraction) Acute on chronic anemia (Acute) Acute renal failure superimposed on stage 3 chronic kidney disease (Acute) Pancytopenia due to chemotherapy Adult failure to thrive (Acute) Elevated troponin (Acute) Prostate cancer metastatic to bone (Chronic) Prostate cancer Biopsy on 06/10/21 Tobacco abuse (Chronic) HLD (hyperlipidemia) (Chronic) HTN (hypertension) (Chronic) DM2 (diabetes mellitus, type 2) (Chronic) PAD (peripheral artery disease) BPH with obstruction/lower urinary tract symptoms (Acute) Medical History History of left heart catheterization (LHC) "cardiac cath 10-20% block" Stroke Surgical History History of left common carotid artery stent placement Family History Mother , in her 80s Myocardial infarction H/O cardiac surgery Diabetes Father , 58yo Myocardial infarction Lung disease 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 Brother No problems noted. Brother No problems noted. Brother No problems noted. Brother No problems noted. Daughter No problems noted. Son No problems noted. Son Diabetes Other Heart disease Hypertension Social History Smoking Status: Current every day smoker Tobacco Type: Cigarettes packs per day: 0.5; Cigarettes Per Day: pack per day; Second Hand Exposure: Yes; Do You Dip or Chew Tobacco: No; Hx Alcohol Use: No Hx Substance Use: No Preferred Language: Slovak Communication Ability: Effective Visual Impairment: No Limitations Hearing Ability: Normal [employer] Required: No Beliefs That Will Affect Care: None marital status: Current Living Situation: Spouse Current Living Situation Comment: , daughter/her spouse current occupational status: retired Other Information That Helps Us Care for You: No Feels Safe at Home: Yes Safety Concerns: Feels Safe At This Time Diet: regular caffeine: No during the past year weight has: decreased > 10 lbs Assistive Devices: Hospital Bed and Wheelchair Review of Systems Review of Systems: All systems reviewed & are unremarkable except as noted in HPI & below Physical Exam Physical Exam: Constitutional: Appears older than stated age, chronically ill, cachectic, vitals as above, NAD, sitting up in bed, pleasant, conversing easily Head: Normocephalic, Atraumatic Eyes: PERRL, conjunctivae normal, anicteric sclerae ENMT: external ear and nose normal, oropharynx normal dry membranes Neck: trachea midline, no thyromegaly normal visual inspection Respiratory: normal respiratory effort, lungs clear to auscultation, no wheeze, rales, rhonchi. Normal insp/exp effort, no accessory muscle use Cardiovascular: RRR, no murmur, no edema Vessels: no JVD or carotid bruit Chest: normal inspection of chest Abdomen: normal bowel sounds, soft, nontender, no hepatosplenomegaly Musculoskeletal: no cyanosis or clubbing, AROm x 4, + upper ext twitching n oticed during exam Skin: no rashes, warm and dry normal turgor Neurologic: PERRL, EOMI, accommodation nl, no face palsy, no dysarthria CN's II-XI intact bilaterally and moves all extremities Psychiatric: A+Ox3, euthymic affect Lymphatic: no cervical or axillary lymphadenopathy : rain draining red blood Results & Data Results & Data Vital Signs (Past 12 Hours) Vital Signs Temp Pulse Pulse Resp BP BP Pulse Ox 04/09/24 08:52 101 H 04/09/24 08:36 97 H 20 136/103 H 100 04/09/24 07:38 121 H 20 98 04/09/24 07:15 36.5 C 126 H 18 90/60 L 99 O2 Del Method 04/09/24 08:52 04/09/24 08:36 Room Air 04/09/24 07:38 Room Air 04/09/24 07:15 Room Air Laboratory Results I have independently reviewed and interpreted patient's admitting labs including CBC, CMP, PTT, PT/INR, and troponin. Medications Administered Medication List Discontinued Medications Morphine Sulfate (Morphine Sulfate 2 Mg/Ml Carp) 2 mg IV NOW STA Stop: 04/09/24 08:34 Last Admin: 04/09/24 08:40 Dose: 2 mg Documented By: DANIELA Ondansetron HCl (Ondansetron Inj 2 Mg/Ml 2 Ml Vial) 4 mg IV NOW STA Stop: 04/09/24 08:34 Last Admin: 04/09/24 08:40 Dose: 4 mg Documented By: DANIELA ECG Additional Comments: I have independently reviewed and interpreted patient's admitting EKG which revealed: 119 sinus tach, poor quality ecg COVID-19 Results Results COVID-19 Adm Lab Results: RBC 3.02 M/uL (4.70-6.10) L 04/09/24 WBC 4.28 K/ul (4.8-10.8) L 04/09/24 Hgb 8.4 g/dl (14.0-18.0) L 04/09/24 Hct 25.4 % (42.0-52.0) L 04/09/24 Plt Count 31 K/uL (130-400) L 04/09/24 Neutrophils (%) (Auto) 72.1 % 04/09/24 Lymphocytes (%) (Auto) 10.0 % 04/09/24 Monocytes # (Auto) 0.40 K/uL (0.11-0.59) 04/09/24 Eosinophils # (Auto) 0.00 K/uL (0.00-0.50) 04/09/24 Immature Granulocyte % (Auto) 8.4 % 04/09/24 Neutrophils # (Auto) 3.08 K/uL (1.40-6.50) 04/09/24 Lymphocytes # (Auto) 0.43 K/uL (1.20-3.40) L 04/09/24 Monocytes # (Auto) 0.40 K/uL (0.11-0.59) 04/09/24 Eosinophils # (Auto) 0.00 K/uL (0.00-0.50) 04/09/24 Basophils # (Auto) 0.01 K/uL (0.00-0.20) 04/09/24 Immature Granulocyte # (Auto) 0.36 K/uL (0.01-0.20) H 04/09 Na 143 mmol/L (136-145) 04/09/24 K 4.0 mmol/L (3.5-5.1) 04/09/24 Cl 109 mmol/L (98-107) H 04/09/24 CO2 22 mmol/L (21-32) 04/09/24 Anion Gap 12 (3-11) H 04/09/24 BUN 23 mg/dl (6-23) 04/09/24 Creatinine 1.26 mg/dl (0.6-1.4) 04/09/24 BUN/Creatinine Ratio 18.3 (10-20) 04/09/24 Glucose Level 207 mg/dl (70-99(Fasting)) H 04/09/24 Ca 7.8 mg/dl (8.6-10.3) L 04/09/24 Total Bilirubin 0.5 mg/dl (0.2-1.0) 04/09/24 AST/SGOT 25 U/L (13-39) 04/09/24 ALT/SGPT 8 U/L (7-52) 04/09/24 Alkaline Phosphatase 1003 U/L (34-104) H 04/09/24 Total Protein 5.7 gm/dl (6.0-8.3) L 04/09/24 Albumin 2.8 gm/dl (3.4-5.0) L 04/09/24 Globulin 2.9 gm/dl (2.5-4.0) 04/09/24 Albumin/Globulin Ratio 1.0 (0.9-2) 04/09/24 PTT 30 Seconds (21-31) 04/09/24 INR 1.1 (0.9-1.1) 04/09/24 Code Status & VTE Plan Code Status DNR/DNI VTE Prophylaxis Plan VTE Prophylaxis will be ordered: No Reason for no VTE drug order: Contraindicated Supervising Physician Co-Signing Physician Notes Attending Addendum: Case reviewed with the advanced practitioner. I have personally performed a history and physical examination on the patient. I have reviewed the advanced practitioner's documentation on the date of service referenced in note, and I agree with, and take responsibility for the plan of care. please refer to her notes for full details patient seen and examined, records reviewed by myself as well on exam, patient Seen resting in bed, not in distress States he feels somewhat improved compared to admission earlier Denies active chest pain, shortness of breath, nausea Rain catheter still having dark red urine no other symptoms VS noted and reviewed oriented x 3, not in distress, speaks in sentences with no effort nor accessory muscle use normal rate, regular rhythm, no murmurs clear breath sounds bilaterally non distended, soft, nontender no bipedal edema, erythema, warmth no neuro deficits all labs, imaging noted and reviewed ASSESSMENT AND PLAN Recurrent hematuria Metastatic prostate cancer Acute blood loss anemia Thrombocytopenia Hemoglobin 8.0 Platelet count 28,000 Will order 1 unit of packed RBCs, 1 unit of platelet pheresis Continue bladder irrigation Urology service consulted other diagnoses and plan of care as per advanced practitioner's notes Spencer Ruff MD (1) Obstructed Rain catheter Encounter type: initial encounter Qualified Code(s): T83.091A - Other mechanical complication of indwelling urethral catheter, initial encounter (2) Hematuria Hematuria type: gross Qualified Code(s): R31.0 - Gross hematuria (3) Anemia Anemia type: unspecified type Qualified Code(s): D64.9 - Anemia, unspecified
[2024-04-09] MEDS ORDERED: SODIUM CHLORIDE 0.9% 250 ML IV PRN ×2 (09:19→10:40)
[2024-04-09 10:56] LABS: Troponin I High Sensitivity 59.1 pg/ml (0-20)
[2024-04-09 11:26] LABS: Magnesium 1.9 mg/dl (1.7-2.4)
[2024-04-09] MEDS: CALCIUM CARBONATE 1,250 MG/5 ML UDC PO SCH (12:25)
[2024-04-09 12:26] LABS: Appearance Urine Cloudy (Clear); Color Urine Red
[2024-04-09 12:27] LABS: Specific Gravity Urine 1.026 (1.000-1.030)
--- NOTE | 2024-04-09 12:51 | Electrocardiogram Report ---
Test Reason : Blood Pressure : / mmHG Vent. Rate : 119 BPM Atrial Rate : 000 BPM P-R Int : 000 ms QRS Dur : 086 ms QT Int : 318 ms P-R-T Axes : 000 034 072 degrees QTc Int : 447 ms Sinus tachycardia Nonspecific ST and T wave abnormality Abnormal ECG Confirmed by Yrn Horn ([id number]) on 04/09/2024 12:51:26 PM Referred By: REFERRED SELF Confirmed By:Luis Antonio Horn
[2024-04-09 13:03] LABS: RBC Urine >20 /hpf (0-2); WBC Urine >50 /hpf (0-5)
[2024-04-09 13:05] LABS: Bacteria Urine 1+ (None Seen)
[2024-04-09] MEDS: cefTRIAXone SODIUM 2,000 MG/50 ML BAG IV SCH (15:11)
--- NOTE | 2024-04-09 16:23 | Urology Consultation ---
Date of Consultation April 09, 2024 Assessment & Plan (1) Hematuria: Plan 63y/o M with PMHx significant for metastatic prostate cancer treated with chemotherapy and palliative radiation who presented to the ED due to hematuria and clogged Velasquez catheter. Urology was consulted for hematuria. Patient afebrile, stable vitals Labs reviewedWBC 4.32, hemoglobin 8, creatinine 1.26 Urine and blood cultures are pending Velasquez draining maroon urine. I offered to irrigate the catheter at bedside and patient declined. Neither surgery with cystoscopy and clot evacuation/fulguration or radiation have stopped his bleeding As previously discussed, he may benefit from urinary diversion with bilateral percutaneous nephrostomy tubes He follows with [facility] urology -Dr. Novak. Per patient/, plan is to undergo b/l nephrostomy tube placement if platelet count allows as outpatient. Continue to monitor urine output. Okay to gently hand irrigate catheter as needed for catheter obstruction. Continue to trend labs and transfuse as necessary per hospital medicine. If no improvement, would again recommend transfer for bilateral nephrostomy tube placement as previously recommended. will sign off. Please call with any further questions or concerns. Plan reviewed with Dr. Alas, on-call urologist. History of Present Illness Attending Physician: Spencer Ruff MD History of Present Illness 63y/o M with PMHx significant for metastatic prostate cancer treated with chemotherapy and palliative radiation who presented to the ED due to hematuria and clogged Velasquez catheter. Urology was consulted for hematuria. Patient with recent hospitalizations at [facility] 03/29 to 04/01 secondary to persistent hematuria and passing clots. He was transferred to [facility] for consideration of nephrostomy tube placement. Per chart review, he was seen and evaluated by his [facility] urologist who had a long discussion with the patient regarding options to continue bilateral ureteral stents and Velasquez catheter versus transitioning to nephrostomy tubes. Patient at that time was happy with Velasquez and stent placement and wanted to hold off on IR procedures. He was discharged with trying manual irrigation of bladder. Since Hospitalization he did follow up with urologist Dr. Novak and has decided to pursue nephrostomy tube placement as outpatient. Per , he presented to the ED today due to clogged catheter. They have been manually irrigating at home. Patient seen at bedside in the ED. Awake, resting bed on arrival. No acute dis tress. at bedside. Velasquez draining with hematuria. Denies suprapubic pain/pressure. Allergies Allergy/AdvReac Type Severity Reaction Status Date / Time amoxicillin [From Augmentin] AdvReac Intermediate DIZZINESS/C Verified 03/17/24 13:50 ONFUSION clavulanic acid AdvReac Intermediate DIZZINESS/C Verified 03/17/24 13:50 [From Augmentin] ONFUSION codeine AdvReac Intermediate Gastrointestinal Verified 03/17/24 13:50 Upset Home Medications Medication Instructions Recorded Confirmed Type empagliflozin 25 mg tablet 25 mg PO QAM 05/31/21 04/09/24 History (Jardiance) acetaminophen 500 mg tablet 1,000 mg PO Q6H PRN Pain 12/06/22 04/09/24 History (Tylenol Extra Strength) linagliptin 5 mg tablet (Tradjenta) 5 mg PO QAM 12/06/22 04/09/24 History ondansetron HCl 8 mg tablet 8 mg PO DIRECTED PRN Nausea 01/11/24 04/09/24 His tory potassium phosphate, monobasic 500 500 mg PO BID 01/11/24 04/09/24 History mg soluble tablet (K-Phos Original) prochlorperazine maleate 10 mg 10 mg PO DIRECTED PRN Nausea 01/11/24 04/09/24 History tablet (Compazine) morphine 15 mg tablet,extended 15 mg PO BID Pain 02/15/24 04/09/24 History release magnesium chloride 64 mg 64 mg PO BID #60 tabs 02/22/24 04/09/24 Rx (magnesium chloride) tablet,delayed release (Mag 64) metoprolol tartrate 25 mg tablet 12.5 mg (1/2 x 25 mg) PO BID #30 02/22/24 04/09/24 Rx tabs tamsulosin 0.4 mg capsule 0.4 mg PO QAM #30 caps 02/22/24 04/09/24 Rx buspirone 5 mg tablet 5 mg PO TID 03/11/24 04/09/24 History lidocaine HCl 2 % mucosal jelly in 1 ml EXT BID PRN Other 03/24/24 04/09/24 History applicator morphine 15 mg immediate release 15 mg PO Q4H PRN pain 03/29/24 04/09/24 History tablet atorvastatin 80 mg tablet 80 mg PO DAILY 04/09/24 04/09/24 History calcitriol 0.25 mcg capsule 0.25 mcg PO DAILY 04/09/24 04/09/24 History calcium carbonate (Tums) 500 mg PO DAILY 04/09/24 04/09/24 History cyanocobalamin (vitamin B-12) 1,000 mcg PO DAILY 04/09/24 04/09/24 History 1,000 mcg tablet ergocalciferol (vitamin D2) 1,250 1,250 mcg PO MARIANO 04/09/24 04/09/24 History mcg (50,000 unit) capsule ferrous sulfate 325 mg (65 mg 325 mg PO DAILY 04/09/24 04/09/24 History iron) tablet (FeroSul) tramadol 50 mg tablet 150 mg PO TID PRN Pain, Moderate 04/09/24 04/09/24 History Patient History Medical History History of left heart catheterization (LHC) "cardiac cath -02/04 10-20% block" Stroke Surgical History History of left common carotid artery stent placement Family History Mother , in her 80s Myocardial infarction H/O cardiac surgery Diabetes Father , 58yo Myocardial infarction Lung disease From working in [employer]; Brother No problems noted. Brother No problems noted. Brother No problems noted. Brother No problems noted. Brother No problems noted. Daughter No problems noted. Son No problems noted. Son Diabetes Other Heart disease Hypertension Social History Smoking Status: Current every day smoker Tobacco Type: Cigarettes packs per day: 0.5; Cigarettes Per Day: pack per day; Second Hand Exposure: Yes; Do You Dip or Chew Tobacco: No; Hx Alcohol Use: No Hx Substance Use: No Preferred Language: Vietnamese Communication Ability: Effective Visual Impairment: No Limitations Hearing Ability: Normal Booking Prizer Required: No Beliefs That Will Affect Care: None marital status: Current Living Situation: Spouse Current Living Situation Comment: , daughter/her spouse current occupational status: retired Other Information That Helps Us Care for You: No Feels Safe at Home: Yes Safety Concerns: Feels Safe At This Time Diet: regular caffeine: No during the past year weight has: decreased > 10 lbs Assistive Devices: Hospital Bed and Wheelchair Review of Systems Review of Systems: All systems reviewed & are unremarkable except as noted in HPI & below Physical Exam Constitutional: + frail appearing chronically ill-appearing Neck: normal visual inspection Respiratory: no respiratory distress and no labored breathing Skin: No visible rashes to exposed skin areas Neurologic: awake Psychiatric: Orientation: alert Genitourinary: Velasquez catheter in place draining dark maroon urine Results & Data Vital Signs (Past 12 Hours) Vital Signs Temp Pulse Pulse Resp BP BP Pulse Ox 04/09/24 15:30 134/76 04/09/24 15:15 120/81 04/09/24 15:06 80 15 99 04/09/24 15:00 140/70 04/09/24 15:00 140/70 04/09/24 14:54 86 18 100 04/09/24 14:31 115/62 04/09/24 14:30 78 23 99 04/09/24 14:21 80 18 100 04/09/24 14:16 135/83 04/09/24 14:16 135/83 04/09/24 14:00 121/84 04/09/24 13:57 76 19 99 04/09/24 13:45 135/67 04/09/24 13:30 74 17 130/71 98 04/09/24 13:20 36.5 C 78 20 133/78 100 04/09/24 13:15 73 20 130/75 100 04/09/24 13:01 36.8 C 70 20 133/78 99 04/09/24 13:00 133/78 04/09/24 12:45 77 16 99 04/09/24 12:45 129/72 04/09/24 12:45 129/72 04/09/24 12:45 36.7 C 75 18 129/72 99 04/09/24 12:43 123/74 04/09/24 12:43 123/74 04/09/24 12:42 77 17 97 04/09/24 12:42 36.8 C 73 20 123/72 100 04/09/24 12:30 130/66 04/09/24 12:30 130/66 04/09/24 12:30 76 16 98 04/09/24 12:15 124/79 04/09/24 12:15 124/79 04/09/24 12:12 88 23 97 04/09/24 12:00 117/70 04/09/24 11:45 79 17 117/57 L 97 04/09/24 11:34 36.7 C 70 16 115/56 L 100 04/09/24 11:04 37.0 C 72 18 115/63 99 04/09/24 11:01 115/63 04/09/24 10:57 81 16 115/63 98 04/09/24 10:49 36.9 C 72 18 103/79 98 04/09/24 10:36 69 20 92/72 L 98 04/09/24 10:32 36.7 C 84 18 92/72 L 98 04/09/24 10:14 78 18 100/67 100 04/09/24 09:09 87 16 102/60 99 04/09/24 08:52 101 H 04/09/24 08:36 97 H 20 136/103 H 100 04/09/24 07:38 121 H 20 98 04/09/24 07:15 36.5 C 126 H 18 90/60 L 99 O2 Del Method 04/09/24 15:30 04/09/24 15:15 04/09/24 15:06 04/09/24 15:00 04/09/24 15:00 04/09/24 14:54 04/09/24 14:31 04/09/24 14:30 04/09/24 14:21 04/09/24 14:16 04/09/24 14:16 04/09/24 14:00 04/09/24 13:57 04/09/24 13:45 04/09/24 13:30 04/09/24 13:20 04/09/24 13:15 04/09/24 13:01 04/09/24 13:00 04/09/24 12:45 04/09/24 12:45 04/09/24 12:45 04/09/24 12:45 04/09/24 12:43 04/09/24 12:43 04/09/24 12:42 04/09/24 12:42 04/09/24 12:30 04/09/24 12:30 04/09/24 12:30 04/09/24 12:15 04/09/24 12:15 04/09/24 12:12 04/09/24 12:00 04/09/24 11:45 04/09/24 11:34 04/09/24 11:04 04/09/24 11:01 04/09/24 10:57 04/09/24 10:49 04/09/24 10:36 Room Air 04/09/24 10:32 04/09/24 10:14 Room Air 04/09/24 09:09 04/09/24 08:52 04/09/24 08:36 Room Air 04/09/24 07:38 Room Air 04/09/24 07:15 Room Air PG Care Time/CCT Total # of Minutes Spent Total Time Spent with Patient: Total time spent is greater than 50% in coordination of care (as documented) at patient's floor/unit and/or counseling patient: Coding Level of Care Code 71705 IN/OBS CONSULT LVL 3,45M Diagnoses Hematuria R31.0 Hematuria type: gross (1) Hematuria Hematuria type: gross Qualified Code(s): R31.0 - Gross hematuria
[2024-04-09] MEDS ORDERED: GLUCAGON FOR INJ 1 MG VIAL SQ PRN (16:44)
[2024-04-09] MEDS ORDERED: GLUCOSE 40% GEL 15 GM TUBE PO PRN (16:44)
[2024-04-09] MEDS ORDERED: ACETAMINOPHEN 325 MG TAB PO PRN (16:44)
[2024-04-09] MEDS ORDERED: GLUCOSE 10 TAB/TUBE PO PRN (16:44)
[2024-04-09] MEDS ORDERED: FAMOTIDINE 20 MG TAB PO PRN (16:44)
[2024-04-09] MEDS ORDERED: DEXTROSE 50% 50 ML SYRINGE IV PRN (16:44)
[2024-04-09] MEDS ORDERED: CARBOHYDRATES FOR HYPOGLYCEMIA PO PRN (16:44)
[2024-04-09] MEDS: INSULIN ASPART PER UNIT CHARGE SC SCH (18:07)
--- OUTSIDE RECORDS SUMMARY | 2024-04-09 18:22 | External Medical Summary | Summary of Care ---
Author Name Unknown Organization [facility] Address [address] [facility] [place] [address] Phone [phone] Care Team Providers Care Paper Roller Name Role Phone Dru Fritz MD Primary Care Provider [phone] Reason for Visit * Reason Comments Medical Nutrition Therapy Encounter Details Date Type Department Care Team (Latest Contact Info) Description 04/07/2024 1:00 PM EDT [facility] [address] [place] [address] Concha Kaur RDN [address] [place] [address] Malignant neoplasm metastatic to bone (HCC)*; Prostate cancer metastatic to multiple sites (HCC); Severe protein-energy malnutrition (HCC); Cancer related pain; Dyslipidemia; Type 2 diabetes mellitus with hemoglobin A1c goal of less than 7.0% (HCC); HTN, goal below 130/80; History of CVA (cerebrovascular accident) Allergies Active Allergy Reactions Criticality Noted Date Comments Amoxicillin-Pot Clavulanate 05/17/20 22 Dizziness and confused documented as of this encounter (statuses as of 04/07/2024) Medications Medication Sig Dispensed Refills Start Date End Date Status ONETOUCH ULTRA SYSTEM W/DEVICE KITIndications:DM type 2, goal A1c below 7 Use up to four times a day as directed 1 Kit 0 07/28/2014 Active Blood Glucose Monitoring Suppl (ONETOUCH VERIO) w/Device KIT Use up to 4 times a day E11.9 1 Kit 01/12/2020 Active Acetaminophen 500 MG Oral TabletIndications:T akes twice daily. Take 1 Tablet by mouth every 6 hours as needed. Active Xgeva 120 MG/1.7ML Subcutaneous Solution (Denosumab) Inject 120 mg under the skin Every Month. Active K-Phos 500 MG Oral Tablet (potassium phosphate)Indicatio ns:Hypophosphatemia TAKE ONE TABLET BY MOUTH TWICE A DAY 180 Tablet 1 07/17/2023 Active Atorvastatin Calcium 80 MG Oral Tablet [...] for Nausea. 30 Tablet 2 09/13/2023 Active Ergocalciferol 1.25 MG (96656 UT) Oral Capsule (Vitamin D2(Drisdol)) Take 1 [...] Oral Capsule (Flomax) 1 Capsule. 02/22/2024 Active busPIRone HCl 5 MG Oral Tablet (Buspar) Take one tablet by mouth three times daily 30 Tablet 03/10/2024 Active Saline Flush 0.9 % Intravenous Solution Bladder irrigation every 6 hourly as needed for hematuria with clotting 125 mL 30 04/02/2024 Active Morphine Sulfate ER 15 MG Oral Tablet Extended Release (MS Contin)Indications: Cancer associated pain Take 1 Tablet by mouth in the morning and 1 Tablet before bedtime. 60 Tablet 04/02/2024 Active Morphine Sulfate 15 MG Oral Tablet (Msir) Take 1 Tablet by mouth every 4 hours as needed for Pain, Breakthrough. 30 Tablet 04/02/2024 Active linaGLIPtin 5 MG Oral Tablet (Tradjenta) Take 1 Tablet by mouth in the morning. 30 Tablet 3 04/02/2024 Active documented as of this encounter (statuses as of 04/07/2024) Active Problems Problem Noted Date Diagnosed Date Cancer related pain 04/02/2024 Palliative care encounter 04/02/2024 Goals of care, counseling/discussion 04/02/2024 Severe protein-energy malnutrition 04/02/2024 Gross hematuria 04/01/2024 Thrombocytopenia 04/01/2024 Blood loss anemia 04/01/2024 Controlled substance agreement signed 03/07/2024 Malignant neoplasm [...] as of this encounter (statuses as of 04/07/2024) Resolved Problems Problem Noted Date Diagnosed Date [...] as of this encounter (statuses as of 04/07/2024) Immunizations No known immunizationsdocumented as of this [...] Taken Comments Blood Pressure - - Pulse - - Temperature - - Respiratory Rate - - Oxygen Saturation - - Inhaled Oxygen Concentration - - Weight 51.8 kg (114 lb 3.2 oz) 04/07/2024 1:07 P M EDT Height 172.7 cm (5' 8") 04/07/2024 1:07 PM EDT Body Mass Index 17.36 04/07/2024 1:07 PM EDT documented in this encounter Functional Status Functional Status Response Date of Assess ment Are you deaf or do you have serious difficulty h earing? No 04/01/2024 Are you blind or do you have serious difficulty seeing, even when wearing glasses? No 04/01/2024 Do you have serious difficul ty walking or climbing stairs? (5 years old or older) No 04/01/2024 Do you have difficulty dress ing or bathing? (5 years old or older) No 04/01/2024 Because of a physical, menta l, or emotional condition, do you have difficulty doing errands alone such as visiting a doctor s office or shopping? (15 years old or older) No 04/01/20 Cognitive Status Response Date of Assessm ent Because of a physical, menta l, or emotional condition, do you have serious difficulty concentrating, remembering, or making decisions? (5 years old or older) No 04/01/2024 documented as of this encounter Patient Instructions * Patient Instructions* Concha Kaur RDN - 04/07/2024 1:59 PM EDT Patient will try small, frequent meals/snack throughout the day, at 4 times a day. Patient will try sipping high-calorie fluids throughout the day, such as juice or milk shake or Ensure or high-protein homemade drink. Patient will add high-calorie, high-protein foods to foods he is already eating- such as butter on potatoes or vegetables or cheese or PB on bread or crackers, gravy on meat or potatoes, whipping topping or syrup on desserts or fruit (refer to handout on Underweight Nutrition Therapy). documented in this encounter Progress Notes * Concha Kaur RDN - 04/07/2024 1:08 PM EDT NUTRITION CONSULT - OUTPATIENT Selenaer Name: Brett Chaudhari Location: [facility] Date: 04/07/2024 Time: 1:08 PM Patient was identified by name and date. Patient was seen [id number] in the clinic. Reason for Referral: Malnutrition NUTRITION ASSESSMENT: Client History Patient is a 63 year old male being seen for above issue. He was recently discharged from [facility]. He is accompanied by his , Brittaney. He has another appointment later today with Dr Novak from Urology to address pt's ureteral stents. Support System: Spouse Barriers To Learning: Hard of hearing Special Education Needs: None Food/Nutrition-Related History Describes typical diet history/24 hr recall Breakfast: rice krispies cereal with whole milk and toast with butter, sometimes fruit-grapes or banana, water or diluted soda Snacks: none Lunch: none Snacks: none Dinner: baked beans, cut-up sausage on a bun, pasta salad, coleslaw Snacks: candy, chips, Little Elsa oatmeal pie, or cupcake Drinks: water Restaurant meals: rare Alcohol: None Tobacco Use: Yes, smokes 5-6 cigarettes per day, marijuana with CBD oil in a pen Fruit, pasta, sherbet, cereal Diet Recall/Food Logs Indicate: AREAS FOR IMPROVEMENT: Poor meal distribution Inadequate fruit and vegetable intake Inadequate fluid intake Inadequate calcium intake Inadequate calorie intake Inadequate protein intake Food and Nutrient Intake and other pertinent information: Patient recently discharged from [facility] due to hematuria. He had been receiving chemo and radiation but this was recently stopped-chemo in November and radiation in March. Patient complains of sore rough spots in upper gumline, lack of appetite,lack of taste. Notes some constipation; he denies dysphagia or difficulty chewing. He complains of pain all the time despite receiving pain med regimen which states she is following. She states pt had been receiving hospice prior to hospital admission but this was not restarted after he was discharged home. Food allergies and/or food intolerances: none Pertinent Medications (Current): Current Outpatient Medications Medication Sig Dispense Refill GlobalWorx SYSTEM W/DEVICE KIT Use up to four times a day as directed 1 Kit 0 Blood Glucose Monitoring Suppl (FOBOTOUCH VERIO) w/Device KIT Use up to 4 times a day E11.9 1 Kit 0 Acetaminophen 500 MG Oral Tablet Take 1 Tablet by mouth every 6 hours as needed. Xgeva 120 MG/1.7ML Subcutaneous Solution (Denosumab) Inject 120 mg under the skin Every Month. K-Phos 500 MG Oral Tablet (potassium phosphate) TAKE ONE TABLET BY MOUTH TWICE A DAY 180 Tablet 1 Atorvastatin Calcium 80 MG Oral Tablet (Lipitor) [...] as needed for Nausea. 30 Tablet 2 Ergocalciferol 1.25 MG (65228 UT) Oral Capsule (Vitamin D2(Drisdol)) Take 1 [...] 0.4 MG Oral Capsule (Flomax) 1 Capsule. busPIRone HCl 5 MG Oral Tablet (Buspar) Take one tablet by mouth three times daily 30 Tablet 0 Saline Flush 0.9 % Intravenous Solution Bladder irrigation every 6 hourly as needed for hematuria with clotting 125 mL 30 Morphine Sulfate ER 15 MG Oral Tablet Extended Release (MS Contin) Take 1 Tablet by mouth in the morning and 1 Tablet before bedtime. 60 Tablet 0 Morphine Sulfate 15 MG Oral Tablet (Msir) Take 1 Tablet by mouth every 4 hours as needed for Pain, Breakthrough. 30 Tablet 0 linaGLIPtin 5 MG Oral Tablet (Tradjenta) Take 1 Tablet by mouth in the morning. 30 Tablet 3 No current facility-administered medications for this visit. notes pt has not needed the zofran or compazine. He has been taking MOM and Miralax. Supplements: Iron, Vitamin D2, and magnesium, calcium carbonate, K-phos Prior Nutrition Counseling: Oswaldo Rangelitian while in hospital Physical Activity: Limited due to fatigue and side effects from chemo and radiation Anthropometric Measurements Ht 1.727 m (5' 8") | Wt 51.8 kg (114 lb 3.2 oz) | BMI 17.36 kg/m | BSA 1.58 m Wt Readings from Last 5 Encounters: 04/07/24 51.8 kg (114 lb 3.2 oz) 04/01/24 53.6 kg (118 lb 3.2 oz) 03/06/24 55.8 kg (123 lb) 01/17/24 64.3 kg (141 lb 11.2 oz) 01/11/24 59.7 kg (131 lb 9.6 oz) Weight Change: decreased by 9 pounds in the past month per EPIC review (7.2%) BMI: BMI Readings from Last 1 Encounters: 04/07/24 17.36 kg/m Nutrition-Focused Physical Findings Overall appearance: thin, cachectic Loss of fat mass: Orbital fat pads: Mild Buccal fat: Mild Triceps: Moderate Ribs: Moderate Loss of muscle mass: Temples: Moderate Clavicle: Moderate Shoulder: Moderate Scapula: Moderate Interosseous: Mild Quadriceps/Thigh: Severe Calf: Severe Micronutrient Exam: Hair: mussed, otherwise WNL Eyes: WNL Mouth (oral mucosa): slightly dry, no dentition, upper right side oral ulcer noted Lips: WNL Gums : WNL Tongue: dry Nails: pale nailbeds Skin: dry, multiple areas of ecchymosis of bilateral upper extremities Fluid accumulation: Fluid Assessment: Normal Digestive system: Appetite: poor, Constipation, Early satiety, Edentulous, Taste alterations Nerves and cognition: Awake, alert and Oriented Nutritionally significant wound burden: Intact Biochemical Data, Medical Tests, and Procedures Latest Reference Range & Units 04/02/24 06:38 WBC 4.00 - 10.80 K/uL 3.85 (L) RBC 4.50 - 5.25 M/uL 3.12 HGB 14.0 - 16.8 g/dL 9.4 (L) HCT 40.0 - 48.4 % 27.8 (L) MCV 82.0 - 99.5 fL 89.1 MCH 27.0 - 34.0 pg 30.1 MCHC 32.0 - 36.0 g/dL 33.8 RDW 11.5 - 15.5 % 16.1 PLT 140 - 400 K/uL 51 (L) MPV 6.6 - 11.1 fL 10.9 (L): Data is abnormally low Latest Reference Range & Units 04/02/24 06:38 Sodium 135 - 146 mmol/L 141 Potassium 3.5 - 5.1 mmol/L 3.9 Chloride 98 - 107 mmol/L 110 (H) CO2 22 - 32 mmol/L 19 (L) BUN 6 - 20 mg/dL 21 (H) Creatinine 0.6 - 1.2 mg/dL 1.2 Estimated Glomerular Filtration Rate >=60 mL/min 70 Anion Gap 7 - 15 mmol/L 12 Glucose 70 - 120 mg/dL 103 Calcium 8.4 - 10.2 mg/dL 7.9 (L) (H): Data is abnormally high (L): Data is abnormally low Above levels noted; pt taking calcium supplement NUTRITION DIAGNOSIS Increased nutrient needs for protein and energy related to cancer diagnosis with recent chemo and radiation treatments and metastasis to bone as evidenced by catabolic nature of disease. Malnutrition severe related to chronic illness as evidenced by patient consuming less than 75% of estimated energy requirements x 1 month, greater than 5% weight loss x 1 month, and severe muscle loss. NUTRITION INTERVENTION: NUTRITION EDUCATION Initial/brief nutrition education NUTRITION COUNSELING Strategies Other Education Material: Academy [employer] Nutrition Care Manual Handout -Underweight Nutrition Therapy, High Calorie Recipes, High Ulwdjeq-Vvkq-Ampimtu Recipes, How to Make a High Calorie Shake Nutrition Prescription: Diet: Good Nutrition High calorie/High protein Daily Calorie Needs: 6259-0088 Kcals Daily Protein Needs: 75-80 Grams protein Goals: Patient will try small, frequent meals/snack throughout the day, at 4 times a day. Patient will try sipping high-calorie fluids throughout the day, such as juice or milk shake or Ensure or high-protein homemade drink. Patient will add high-calorie, high-protein foods to foods he is already eating- such as butter on potatoes or vegetables or cheese or PB on bread or crackers, gravy on meat or potatoes, whipping topping or syrup on desserts or fruit (refer to handout on Underweight Nutrition Therapy). Dietitian Action: Encouraged patient to eat whatever he can. Encouraged him to try to eat at 4 different times daily. Encouraged him to sip high-calorie fluids throughout the day such as juice, milk shakes. Recipes provided to pt's to try. Discussed ways to add high-protein, high-calorie foodsto what he is already eating-suggestions provided. Discussed that he has increased protein and caloric needs due to cancer and recent treatments. Patient complaining of being in constant pain despitegetting pain medicine as directed. Encouraged him to discuss this with his PCP or Oncology provider. Recommendations to Ordering Provider: Continue current plan of nutrition care. NUTRITION MONITORING AND EVALUATION: The following will be monitored and evaluated at the next visit: Monitor weight. Monitor goals and progress. Plan:Patient scheduled to return in 2 months; Encouraged pt to contact me via My G if any questionsor concerns arise. 60 minutes Medical Nutrition Therapy 15 min (8-22 min) 30 min (23-37 min) 45 min (38-52 min) 60 min (53-67 min) 75 min (68-82 min) 90 min (83-97 min) 105 min (98-113 min) Time In: 1303 (04/07/24 1647) Time Out: 1402 (04/07/24 1647) Concha Kaur RDN [facility] documented in this encounter Plan of Treatment Upcoming Encounters Date Type Department Care Team (Late st Contact Info) Description 04/11/2024 11:00 AM EDT Office Visit [facility] [address] [place] [address] Dru Fritz MD [address] [place] [address] 04/18/2024 1:15 PM EDT Office Visit Hematology/Oncology [facility] [address] [place] [phone] Elio Queen MD [address] [facility] [place] [address] 04/24/2024 8:15 AM EDT Telemedicine Urology Loyda Singh [address] [place] [address] [place] [address] Isaías Novak MD [address] [place] [address] 05/08/2024 11:00 AM EDT Laboratory Laboratory [facility] Saritha [place] [address] [place] [phone] [place], Lab [facility] [address] [facility] [place] [address] 05/08/2024 11:45 AM EDT Immunization/Injection Hematology/Oncology Treatment, [place] [address] [facility] [address] [place], [place] [phone] Nurse, Med [address] [facility] [place] [address] 05/20/2024 2:15 PM EDT Office Visit Urology, [facility] [address] [place] [address] Isaías Novak MD [address] [place] [address] 07/01/2024 4:00 PM EDT Office Visit Family Practice [facility] [address] [place] [address] Dru Fritz MD [address] [place] [address] Health Maintenance Due Date Last Done Comments DISCUSS TOBACCO CESSATION (R EFER TO SMARTSET #6885) 1960 COVID-19 Vaccine (#1) 1964 Zoster Vaccines (1 of 2) 1978 Influenza Vaccine (FLU shot) (#1) 2024 Depression Screening 03/06/2025 03/06/2024 Diabetic Foot Exam Discontinued 05/20/2019, 0 03/27/2018, 10/28/2015 Diabetic Eye Exam Discontinued 03/02/2021, , 01/24/2016, Additional history exists Albumin/Creatinine Ratio Discontinued 022, 02/13/2018, 10/27/2015, Additional history exists documented as of this encounter Medical Devices Implanted Type Area Peoplesoft Hrms Developer Device Identifier Shelf Expiration Date Model / Serial / Lot Stent Trnscarotid Enroute 7x40 - [id number] Implanted:Qty: 1 on 01/25/2021 by Zeinab Robert MD at [facility] Left: [facility] [id number] 05/31/2023 SR-0740-C S / / [id number] documented as of this encounter Visit Diagnoses Diagnosis Malignant neoplasm metastatic to bone (HCC)- Primary Secondary malignant neoplasm of bone and bone marrow Prostate cancer metastatic to multiple sites (HCC) Malignant neoplasm of prostate Severe protein-energy malnutrition (HCC) Other severe protein-calorie malnutrition Cancer related pain Neoplasm related pain (acute) (chronic) Dyslipidemia Other and unspecified hyperlipidemia Type 2 diabetes mellitus with hemoglobin A1c goal of less than 7.0% (HCC) HTN, goal below 130/80 Unspecified essential hypertension History of CVA (cerebrovascular accident) Transient ischemic attack (TIA), and cerebral infarction without residual deficits documented in this encounter Advance Directives * Limited Code (Latest Code Status on File) Date Activated Date Inactivated Comments 04/01/2024 8:39 PM 04/02/2024 6:43 PM This order ref lects the patients wishes and were consensually agreed upon. Question Answer Comments Discussion of Advance Directives occurred with: Patient Bag Valve Device? Yes Intubation? No Cardiac Compressions? No Defibrillation? Yes Synchronized Cardioversion? Yes External Pacemaker? No Cardiac Drugs? Yes * Full Code Date Activated Date Inactivated Comments 01/25/2021 10:53 AM 01/26/2021 1:19 PM This order reflects the patients wishes and were consensually agreed upon. Healthcare Agents on File Name Relationship Healthcare Agent Relationship Communication Brittaney Chaudhari Spouse Health Care Re presentative (appointed verbally by patient or by statute hierarchy) Care Teams Paper Roller Relationship Specialty Start Date End Date Dru Fritz MD [address] [place] [address] PCP - General Family Medicine 01/24/21 documented as of this encounter
--- OUTSIDE RECORDS SUMMARY | 2024-04-09 18:22 | External Medical Summary | Summary of Care ---
Author Name Unknown Organization [facility] Address [address] [place] [facility] [place] [address] Phone [phone] Care Team Providers Care Riprap Worker Name Role Phone Dru Fritz MD Primary Care Provider [phone] Reason for Referral * Evaluate & Treat - Unlimited Visits (Within 3 days (urgent)) - Authorized Specialty Diagnoses / Procedures Referred By [place] t Referred To Contact Dietitian / Nutrition Services Diagnoses Severe protein-energy malnutrition (HCC) Concha Kuar RDN [address] [place] [address] Referral ID Status Reason Start Date Expiration Date Visits Requested Visits Authorized [id number] Authorized Specialty Services Required 04/07/2024 999 999 Question Answer Referral Priority Within 3 days (urgent) Where should this appointment be scheduled? [facility] What condition is the patient being seen for? Cancer Is this for 64 Forward? No Comments Medical Nutrition Therapy Reason for Visit * Reason Onset Date Comments Referral 04/07/2024 Encounter Details Date Type Department Care Team (Late st Contact Info) Description 04/07/2024 Telephone NutritionButch [address] [place] [address] Concha Kaur RDN [address] [place] [address] Referral Allergies Active Allergy Reactions Criticality Noted Date Comments Amoxicillin-Pot Clavulanate 05/17/20 22 Dizziness and confused documented as of this encounter (statuses as of 04/07/2024) Medications Medication Sig Dispensed Refills Start Date End Date Status Haofangtong ULTRA SYSTEM W/DEVICE KITIndications:DM type 2, goal A1c below 7 Use up to four times a day as directed 1 Kit 0 07/28/2014 Active Blood Glucose Monitoring Suppl (WantfulTOUCH VERIO) w/Device KIT Use up to 4 [...] Tablet 2 09/13/2023 Active Ergocalciferol 1.25 MG (63546 UT) Oral Capsule (Vitamin D2(Drisdol)) Take 1 [...] No 04/01/2024 documented as of this encounter Miscellaneous Notes * Telephone Encounter - Concha Kaur RDN - 04/07/2024 4:[address] Fritz, I do not have a referral for this pt after he was discharged from [facility]. Would you please sign pended order? Thank you. Concha Kaur RDN, Clinical Dietitian II, [facility] Clinical Nutrition Services [facility] [address] [place] [address] Available via Yapp Portal documented in this encounter Plan of Treatment Upcoming Encounters Date Type Department Care Team (Late st Contact Info) Description 04/11/2024 11:00 AM EDT Office Visit Family Practice [facility] [address] [place] [address] Dru Fritz MD [address] [place] [address] 04/18/2024 1:15 PM EDT Office Visit Hematology/Oncology [facility] [address] [place] [phone] Elio Queen MD [address] [facility] [place] [address] 04/24/2024 8:15 AM EDT Telemedicine Urology Loyda Singh [address] [facility] [address] [place] [address] Isaías Novak MD [address] [place] [address] 05/08/2024 11:00 AM EDT Laboratory Laboratory [facility] [address] [place] [phone] [facility] [address] [place] [address] 05/08/2024 11:45 AM EDT Immunization/Injection Hematology/Oncology Treatment, [place] [address] [facility] [address] [place] [phone] Nurse, Med 4 [address] [facility] [place] [address] 05/20/2024 2:15 PM EDT Office Visit Urology, [facility] [address] [place] [address] Isaías Novak MD [address] [place] [address] 07/01/2024 4:00 PM EDT Office Visit [facility] [address] [place] [address] Dru Fritz MD [address] [place] [address] Scheduled Referrals Name Type Priority Associated Diagnoses Orde r Schedule NUTRITION-CLINICAL DIETITIAN REFERRAL OP Referral Within 3 days (urgent) Severe protein-energy malnutrition (HCC) Ordered: 04/07/2024 Health Maintenance Due Date Last Done Comments DISCUSS TOBACCO CESSATION (R EFER TO SMARTSET #3291) 1960 COVID-19 Vaccine (#1) 1964 Zoster Vaccines (1 of 2) 1978 Influenza Vaccine (FLU shot) (#1) 2024 Depression Screening 03/06/2025 03/06/2024 Diabetic Foot Exam Discontinued 05/20/2019, 0 03/27/2018, 10/28/2015 Diabetic Eye Exam Discontinued 03/02/2021, , 01/24/2016, Additional history exists Albumin/Creatinine Ratio Discontinued 022, 02/13/2018, 10/27/2015, Additional history exists documented as of this encounter Medical Devices Implanted Type Area Distribution Warehouse Manager Device Identifier Shelf Expiration Date Model / Serial / Lot Stent Trnscarotid Enroute 7x40 - [id number] Implanted:Qty: 1 on 01/25/2021 by Zeinab Robert MD at [facility] Left: [facility] [id number] 05/31/2023 SR-0740-C S / / [id number] documented as of this encounter Visit Diagnoses Diagnosis Severe protein-energy malnutrition (HCC)- Primary Other severe protein-calorie malnutrition documented in this encounter Advance Directives * [...] patient or by statute hierarchy) Care Teams Riprap Worker Relationship Specialty Start Date End Date Dru Fritz MD [address] [facility] [place] [address] PCP - General Family Medicine 01/24/21 documented as of this encounter
--- OUTSIDE RECORDS SUMMARY | 2024-04-09 18:22 | External Medical Summary | Summary of Care ---
Author Name Unknown Organization [facility] Address [address] [place] [address] Phone [phone] Care Team Providers Care Chief Concierge Name Role Phone Nima Fritz MD Primary Care Provider [phone] Reason for Referral * Precert (Within 10 days (routine)) - Pending Review Specialty Diagnoses / Procedures Referred By Contac t Referred To Contact Radiology Diagnoses Hydronephrosis, bilateral Procedures IR GENITORINARY NEPHRO/CYSTO/URETERAL Isaías Novak MD [address] [address] Referral ID Status Reason Start Date Expiration Date V isits Requested Visits Authorized [id number] Pending Review 04/14/2024 999 999 Reason for Visit * Reason Comments Follow Up Encounter Details Date Type Department Care Team (Late st Contact Info) Description 04/07/2024 1:45 PM EDT Office Visit Urology, [address] [place] [address] Isaías Novak MD [address] [address] Prostate cancer metastatic to multiple sites (HCC)*; Prostate cancer (HCC); Hematuria, gross; Retention of urine; Hydronephrosis, bilateral Allergies Active Allergy Reactions Criticality Noted Date Comments Amoxicillin-Pot Clavulanate 05/17/20 22 Dizziness and confused documented as of this encounter (statuses as of 04/07/2024) Medications Medication Sig Dispensed Refills Start Date End Date Status [employer] SYSTEM W/DEVICE KITIndications:DM type 2, goal A1c below 7 Use up to four times a day as directed 1 Kit 0 07/28/2014 Active Blood Glucose Monitoring Suppl (ConnectYardTOUCH VERIO) w/Device KIT Use up to 4 [...] Tablet 2 09/13/2023 Active Ergocalciferol 1.25 MG (57210 UT) Oral Capsule (Vitamin D2(Drisdol)) Take 1 [...] No 04/01/2024 documented as of this encounter Progress Notes * Isaías Novak MD - 04/07/2024 1:52 PM EDT [id number] PCP: NIMA FRITZ [address] [place] [address] [place] [address] [phone] Brett Chaudhari is a 63 year old male, who I have last seen 5 months ago, here for follow-up of his metastatic and progressive prostate cancer. Patient's interval difficulties with obstructive uropathy status post bilateral ureteral stent placement and recurrent gross hematuria are noted. Admission to [facility] with transfer to [facility] for placement of nephrostomy tubes which the patient subsequently declined is noted. Urology consultation at the time is appreciated. Patient was previously on aspirin and Plavix, held due to low plt count. Printed notes are reviewed. Patient reports that after consideration he now wishes to try nephrostomy tubes. He notes no clots are present at this time. He is here today with family. Prostate cancer: Remains on alfuzosin. Elevated PSA noted. Abnormal KAMRAN at presentation. Biopsy done June 2021 demonstrating grade group 5 cancer in all cores. Imelda provided June 2021. Bone scan June 2021 demonstrates widespread metastases. Presented with urinary retention, bilateral hydro. Xtandi started Aug 2021 by Med Onc. Taxotere stated Aug 2024. PET scan July 2023 demonstrates increased disease burden. CT imaging March 2024 scanned into PACS, personally reviewed PSA Results: Lab Results Component Value Date/Time PSA - [facility] 421.00 (H) 03/11/2024 02:33 PM PSA - [facility] 481.50 (H) 03/06/2024 12:16 PM PSA - [facility] 420.90 (H) 02/14/2024 01:08 PM PSA SCREENING 0.46 06/26/2014 09:04 AM PSA - [facility] 88.67 (H) 10/31/2023 12:23 PM PSA - [facility] 94.86 (H) 10/10/2023 11:44 AM PSA - [facility] 69.22 (H) 09/10/2023 03:33 PM Creatinine Results: Lab Results Component Value Date/Time CREATININE - [facility] 1.2 04/02/2024 06:38 AM CREATININE - [facility] 1.2 04/01/2024 09:03 PM CREATININE - [facility] 1.2 03/11/2024 02:33 PM CREATININE - [facility] 1.1 04/29/2020 10:10 AM CREATININE - [facility] 1.2 07/11/2019 02:28 PM CREATININE - [facility] 1.1 05/15/2019 01:59 PM CREATININE, RANDOM URINE - [facility] 93 05/15/2022 01:19 PM CREATININE, RANDOM URINE - [facility] 110 02/13/2018 12:24 PM CREATININE, RANDOM URINE - [facility] 169 10/27/2015 08:33 AM CREATININE, RANDOM URINE - [facility] 136 06/26/2014 10:23 AM CREATININE-OUTSIDE LAB 1.35 03/26/2019 12:00 AM Current Outpatient Medications Medication Sig Dispense Refill [employer] SYSTEM W/DEVICE KIT Use up to four times a day as directed 1 Kit 0 Blood Glucose Monitoring Suppl ([employer]) w/Device KIT Use up to 4 times [...] Nausea. 30 Tablet 2 Ergocalciferol 1.25 MG (60055 UT) Oral Capsule (Vitamin D2(Drisdol)) Take 1 [...] No current facility-administered medications for this visit. Review of patient's allergies indicates: Allergen Reactions Augmentin [Amoxicillin-Pot Clavulanate] Dizziness and confused Social History: Social History Tobacco Use Smoking status: Every Day Current packs/day: 0.50 Average packs/day: 0.5 packs/day for 30.0 years (15.0 ttl pk-yrs) Types: Cigarettes Smokeless tobacco: Never Tobacco comments: 03/06/24, 3 -4 cigarettes day Substance Use Topics Alcohol use: Yes Comment: rarely Vaping/E-Cigarette Use Vaping/E-Cigarette Use Never User Vaping/E-Cigarette Substances Vaping/E-Cigarette Devices Family History Problem Relation Name Age of Onset Heart Disorder Father Lung Disorder Father Hypertension Mother Diabetes Mother Past Surgical History: Procedure Laterality Date TRANSCATH STENT-CAROTID ARTERY, W/EMBOL PROTECTION Left 01/25/2021 CAROTID STENT WITH DISTAL PROTECTION performed by Zeinab Robert MD at [facility] TRANSCATH STENT-CAROTID ARTERY, W/EMBOL PROTECTION Left 01/25/2021 CAROTID STENT WITH DISTAL PROTECTION TRANSCAROTID ARTERY REVASCULARIZATION performed by Zeinab Robert MD at OR [facility] Past Medical History: Diagnosis Date Chronic systolic heart failure (HCC) 03/31/2019 DM type 2, goal A1c below 7 Heart failure, etiology unknown ([facility]) cardiac cath -02/04 10-20% block History of left common carotid artery stent placement 03/08/2021 HTN, goal to be determined Nonischemic cardiomyopathy (HCC) 03/31/2019 Primary insomnia 03/07/2021 Sciatica Patient Active Problem List Diagnosis Tobacco use disorder Dyslipidemia Type 2 diabetes mellitus with hemoglobin A1c goal of less than 7.0% ([facility]) HTN, goal below 130/80 Stage 3a chronic kidney disease (HCC) PAD (peripheral artery disease) (HCC) History of CVA (cerebrovascular accident) Nonischemic cardiomyopathy (HCC) Chronic systolic heart failure (HCC) Asymptomatic bilateral carotid artery stenosis Primary insomnia History of left common carotid artery stent placement Prostate cancer metastatic to multiple sites (HCC) Malignant neoplasm metastatic to bone (HCC) Controlled substance agreement signed Gross hematuria Thrombocytopenia (HCC) Blood loss anemia Cancer related pain Palliative care encounter Goals of care, counseling/discussion Severe protein-energy malnutrition (HCC) Constitutional: (+) weakness and (+) fatigue Pulmonary: (+) dyspnea Abdominal/GI: (+) flatulence Male : See HPI Musculoskeletal: (+) muscle weakness Neurology: (+) loss of balance Psychiatry: (+) depression Physical Exam Nursing note reviewed. Constitutional: Appearance: He is ill-appearing. He is not toxic-appearing. Comments: Cachectic, using wheelchair HENT: Head: Atraumatic. Right Ear: External ear normal. Left Ear: External ear normal. Nose: Nose normal. Mouth/Throat: Mouth: Mucous membranes are moist. Eyes: Extraocular Movements: Extraocular movements intact. Cardiovascular: Pulses: Normal pulses. Pulmonary: Effort: Respiratory distress (mild) present. Abdominal: General: There is no distension. Palpations: Abdomen is soft. Musculoskeletal: Cervical back: No rigidity. Skin: Findings: Bruising present. Neurological: Mental Status: He is oriented to person, place, and time. Motor: Weakness present. Gait: Gait abnormal. Psychiatric: Thought Content: Thought content normal. Impression/Plan: 63-year-old male with progressive, metastatic prostate cancer. Patient reports that after consideration he believes his quality of life would be improved with nephrostomy tubes in place. He is well aware of the technique, risks and benefits. Consultation for Interventional Radiology is placed. However, patient's low platelet count may prove to be a significantbarrier to the placement nephrostomy tubes. He is recommended against using blood thinners considering his low platelet count. Will consider indwelling ureteral stent exchange in the near future if the patient can not proceed with nephrostomy tube placement. Will arrange for 2 week phone visit to review the patient's results and outcomes with respect to his Interventional Radiology consultation. Above content is personally reviewed. Patient vocalizes good understanding of the treatment plan. Isaías Novak MD 1:52 PM 04/07/2024 documented in this encounter Nursing Notes * Naty Valencia LPN - 04/07/2024 2:11 PM EDT Pt presents in office for follow up C/o- pelvic pain, wants to discuss pain management regimen, wants to discuss stent removal/nephrostomy tube placement PSA Results: Lab Results Component Value Date/Time PSA - [facility] 421.00 (H) 03/11/2024 02:33 PM PSA - [facility] 481.50 (H) 03/06/2024 12:16 PM PSA - [facility] 420.90 (H) 02/14/2024 01:08 PM PSA SCREENING 0.46 06/26/2014 09:04 AM documented in this encounter Plan of Treatment Upcoming Encounters Date Type Department Care Team (Late st Contact Info) Description 04/11/2024 11:00 AM EDT Office Visit [facility] [address] [place] [address] Nima Fritz MD [address] [place] [address] 04/18/2024 1:15 PM EDT Office Visit Hematology/Oncology [facility] Saritha [place] [address] [place] [phone] Elio Queen MD [address] [facility] [place] [address] 04/24/2024 8:15 AM EDT Telemedicine Urology Loyda Singh [address] [place] [address] [address] Isaías Novak MD [address] [address] 05/08/2024 11:00 AM EDT Laboratory Laboratory [facility] Mel[facility] [place] [address] [facility] [place] [phone] Saritha Lab [place] [address] [address] REPLACED BY [facility] [place] [address] 05/08/2024 11:45 AM EDT Immunization/Injection Hematology/Oncology Treatment, [place] [address] [facility] [place] [phone] Nurse, Med [address] [place] [address] 05/20/2024 2:15 PM EDT Office Visit Urology, [facility] [address] [place] [address] Isaías Novak MD [address] [place] [address] 07/01/2024 4:00 PM EDT Office Visit Family Practice [facility] [address] [place] [address] Nima Fritz MD [address] [place] [address] Scheduled Orders Name Type Priority Associated Diagnoses Orde r Schedule IR GENITORINARY NEPHRO/CYSTO/URETERAL Medical Imaging Routine Hydronephrosis, bilateral Expected: 04/14/2024, Expires: 05/08/2025 Health Maintenance Due Date Last Done Comments [...] this encounter Medical Devices Implanted Type Area Investigation Division Captain Device Identifier Shelf Expiration Date Model / Serial / Lot Stent Trnscarotid Enroute 7x40 - [id number] Implanted:Qty: 1 on 01/25/2021 by Zeinab Robert MD at [facility] Left: [facility] [id number] 05/31/2023 SR-0740-C S / / [id number] documented as of this encounter Visit Diagnoses Diagnosis Prostate cancer metastatic to multiple sites (HCC)- Primary Malignant neoplasm of prostate Prostate cancer (HCC) Malignant neoplasm of prostate Hematuria, gross Gross hematuria Retention of urine Retention of urine, unspecified Hydronephrosis, bilateral Hydronephrosis documented in this encounter Advance Directives * [...] or by statute hierarchy) Care Teams Chief Concierge Relationship Specialty Start Date End Date Nima Fritz MD [address] [place] [address] PCP - General Family Medicine 01/24/21 documented as of this encounter
--- OUTSIDE RECORDS SUMMARY | 2024-04-09 18:23 | External Medical Summary | Summary of Care ---
Author Name Unknown Organization [facility] Address [address] [place] [address] Phone [phone] Care Team Providers Care Dairy Department Manager Name Role Phone Dru Fritz MD Primary Care Provider [phone] Encounter Details Date Type Department Care Team (Latest Contact Info) Description 02/23/2024 5:15 PM EDT - 02/23/2024 5:19 PM EDT Hospital Encounter Radiology Film File [address] [place] [address] Discharge Disposition: Home - Self Care Allergies Active Allergy Reactions Criticality Noted Date Comments Amoxicillin-Pot Clavulanate 05/17/20 22 Dizziness and confused documented as of this encounter (statuses as of 04/03/2024) Medications Medication Sig Dispensed Refills Start Date End Date Status [employer] ULTRA SYSTEM W/DEVICE KITIndications:DM type 2, goal A1c below 7 Use up to four times a day as directed 1 Kit 0 07/28/2014 Active Blood Glucose Monitoring Suppl (ONETOUCH VERIO) w/Device KIT Use up to 4 times a day E11.9 1 Kit 01/12/2020 Active Acetaminophen 500 MG Oral TabletIndications:Ta [...] for Nausea. 30 Tablet 2 09/13/2023 Active documented as of this encounter (statuses as of 04/03/2024) Active Problems Problem Noted Date Diagnosed Date [...] as of this encounter (statuses as of 04/03/2024) Resolved Problems Problem Noted Date Diagnosed Date [...] as of this encounter (statuses as of 04/03/2024) Immunizations No known immunizationsdocumented as of this encounter Social History Tobacco Use Types Packs/Day Years Used Date Smoking Tobacco: Every Day Cigarettes 0.5 30 Smokeless Tobacco: Never Comments:11/9/22 smokes 1/2 pack a day Alcohol Use [...] Team (Late st Contact Info) Description 04/07/2024 1:00 PM EDT Nutrition Services Nutrition, [facility] [address] [place] [address] Concha Kaur RDN [address] [address] 04/11/2024 11:00 AM EDT Office Visit Family Practice [facility] [address] [address] Dru Fritz MD [address] [address] 04/16/2024 11:45 AM EDT Office Visit Urology, [facility] [address] [address] [address] Isaías Novak MD [address] [place] [address] 04/18/2024 1:15 PM EDT Office Visit Hematology/Oncology [facility] [address] [place] [phone] Elio uQeen MD [address] [place] [address] 05/08/2024 11:00 AM EDT Laboratory Laboratory [facility] [address] [place] [phone] Park, Lab [facility] [address] [facility] [place] [address] 05/08/2024 11:45 AM EDT Immunization/Injectio n Hematology/Oncology Treatment, [place] [address] [facility], [place] [phone] Nurse, Med 200 [facility] [place] [address] 05/20/2024 2:15 PM EDT Office Visit Urology, [facility] [address] [place] [place] [address] Isaías Novak MD [address] [place] [address] 07/01/2024 4:00 PM EDT Office Visit Family Practice [facility] [address] [facility] [place] [address] Dru Fritz MD [address] [place] [address] Health Maintenance Due Date Last Done Comments DISCUSS TOBACCO CESSATION (REFER TO SMARTSET #4291) 1960 COVID-19 Vaccine (#1) 1964 Pneumococcal Vaccine: Pediatrics (0 to 5 Years) and At-Risk Patients (6 to 64 Years) (1 of 2 - PCV) 1965 DTaP,Tdap,and Td Vaccines (1 - Tdap) 1978 Zoster Vaccines (1 of 2) 1978 Cologuard 2004 Colonoscopy 2004 Colorectal Cancer Screening 2004 Fecal Occult Blood Test 2004 Sigmoidoscopy 2004 Diabetic Foot Exam 05/20/2020 05/20/2019, 0 03/27/2018, 10/28/2015 Diabetic Eye Exam 03/02/2022 03/02/2021, , 01/24/2016, Additional history exists Influenza Vaccine (FLU shot) (#1) 2024 Depression Screening 03/06/2025 03/06/2024 CKD PHOS USE SMARTSET 37034 04/01/2025 07/0 11/2023, 03/11/2024, 03/06/2024, Additional history exists CKD HGB USE SMARTSET 98267 04/02/202504/02, 04/01/2024, 03/11/2024, Additional history exists Albumin/Creatinine Ratio Discontinued 022, 02/13/2018, 10/27/2015, Additional history exists HPV (Gardasil) Vaccine Aged Out No lo nger eligible based on patient's age to complete this topic Hepatitis B Vaccine Aged Out No longe r eligible based on patient's age to complete this topic MENINGOCOCCAL (MENACTRA/MENVEO) Aged Out No longer eligible based on patient's age to complete this topic documented as of this encounter Medical Devices Implanted Type Area Machine Hoop Maker Helper Device Identifier Shelf Expiration Date Model / Serial / Lot Stent Trnscarotid Enroute 7x40 - [id number] Implanted:Qty: 1 on 01/25/2021 by Zeinab Robert MD at [facility] Left: [facility] [id number] 05/31/2023 SR-0740-C S / / [id number] documented as of this encounter Procedures Procedure Name Priority Date/Time Associated Diagnosis Comments RADIOLOGY EXAM - US (IMAGES ONLY, NO REPORT) Routine 02/23/2024 5:15 PM EDT documented in this encounter Results * RADIOLOGY EXAM - US (IMAGES ONLY, NO REPORT) (02/23/2024 5:15 PM EDT) 02/23/2024 5:15 PM EDT Narrative Scheduling, Silent - 04/02/2024 10:59 AM EDT This is an imaging study not interpreted or resulted by a [facility] or [facility] contracted radiologist. Elio Queen MD RAD ULTRASOUND documented in this encounter Advance Directives * [...] patient or by statute hierarchy) Care Teams Dairy Department Manager Relationship Specialty Start Date End Date Dru Fritz MD [address] [place] [address] [address] PCP - General Family Medicine 01/24/21 documented as of this encounter
--- OUTSIDE RECORDS SUMMARY | 2024-04-09 18:23 | External Medical Summary | Summary of Care ---
Author Name Unknown Organization [facility] Address [address] [place] [address] Phone [phone] Care Team Providers Care Music Producer Name Role Phone Dru Fritz MD Primary Care Provider [phone] Encounter Details Date Type Department Care Team (Latest Contact Info) Description 02/15/2024 2:20 PM EDT - 02/15/2024 11:59 PM EDT Hospital Encounter Radiology Film File [address] [place] [address] Discharge Disposition: Home - Self Care Allergies Active Allergy Reactions Criticality Noted Date Comments Amoxicillin-Pot Clavulanate 05/17/20 22 Dizziness and confused documented as of this encounter (statuses as of 04/03/2024) Medications Medication Sig Dispensed Refills Start Date End Date Status [employer] ULTRA SYSTEM W/DEVICE KITIndications:DM type 2, goal [...] 04/07/2024 1:00 PM EDT Nutrition Services Nutrition, [facility] [address] [place] [address] Concha Kaur RDN [address] [address] 04/11/2024 11:00 AM EDT Office Visit Family Practice [facility] [address] [place] [address] [address] Dru Fritz MD [address] [address] 04/16/2024 11:45 AM EDT Office Visit Urology, [facility] [address] [address] [address] Isaías Novak MD [address] [place] [address] 04/18/2024 1:15 PM EDT Office Visit Hematology/Oncology [facility] [address] [place] [phone] Elio Queen MD [address] [place] [address] 05/08/2024 11:00 AM EDT Laboratory Laboratory [facility] [address] [place] [phone] Park, Lab [facility] [address] [facility] [place] [address] 05/08/2024 11:45 AM EDT Immunization/Injectio n Hematology/Oncology Treatment, [place] 200 [facility], [place] [phone] Nurse, Med [address] [facility] [place] [address] 05/20/2024 2:15 PM EDT Office Visit Urology, [facility] [address] [place] [address] Isaías Novak MD [address] [place] [address] 07/01/2024 4:00 PM EDT Office Visit Family Practice [facility] [address] [facility] [place] [address] Dru Fritz MD [address] [place] [address] Health Maintenance Due Date Last Done Comments DISCUSS TOBACCO CESSATION (REFER TO SMARTSET #4653) 1959 COVID-19 Vaccine (#1) 1964 Pneumococcal Vaccine: [...] Screening 03/06/2025 03/06/2024 CKD PHOS USE SMARTSET 04341 04/01/2025 07/0 11/2023, 03/11/2024, 03/06/2024, Additional history exists CKD HGB USE SMARTSET 62908 04/02/202504/02, 04/01/2024, 03/11/2024, Additional history exists Albumin/Creatinine [...] this encounter Medical Devices Implanted Type Area Collection Coordinator Device Identifier Shelf Expiration Date Model / Serial / Lot Stent Trnscarotid Enroute 7x40 - [id number] Implanted:Qty: 1 on 01/25/2021 by Zeinab Robert MD at [facility] Left: [facility] [id number] 05/31/2023 SR-0740-C S / / [id number] documented as of this encounter Procedures Procedure Name Priority Date/Time Associated Diagnosis Comments RADIOLOGY EXAM - GENERAL RAD (IMAGES ONLY,NO REPORT) Routine 02/15/2024 2:20 PM EDT documented in this encounter Results * RADIOLOGY EXAM - GENERAL RAD (IMAGES ONLY,NO REPORT) (02/15/2024 2:20 PM EDT) 02/15/2024 2:20 PM EDT Narrative Scheduling, Silent - 04/02/2024 11:00 AM EDT This is an imaging study not interpreted or resulted by a [facility] or [facility] contracted radiologist. Elio Queen MD RADIOLOGY (RAD GENER AL) documented in this encounter Advance Directives * [...] patient or by statute hierarchy) Care Teams Music Producer Relationship Specialty Start Date End Date Dru Fritz MD [address] [place] [address] PCP - General Family Medicine 01/24/21 documented as of this encounter
--- OUTSIDE RECORDS SUMMARY | 2024-04-09 18:23 | External Medical Summary | Summary of Care ---
Author Name Unknown Organization [facility] Address [address] [place] [address] Phone [phone] Care Team Providers Care Mobile Pet Groomer Name Role Phone Dru Fritz MD Primary Care Provider [phone] [phone] Encounter Details Date Type Department Care Team (Latest Contact Info) Description 03/24/2024 4:50 PM EDT - 03/24/2024 10:04 PM EDT Hospital Encounter Radiology Film File [address] [place] [address] Discharge Disposition: Home - Self Care Allergies Active Allergy Reactions Criticality Noted Date Comments Amoxicillin-Pot Clavulanate 05/17/20 22 Dizziness and confused documented as of this encounter (statuses as of 04/03/2024) Medications Medication Sig Dispensed Refills Start Date End Date Status Better Walk ULTRA SYSTEM W/DEVICE KITIndications:DM type 2, goal [...] Tablet 2 09/13/2023 Active Ergocalciferol 1.25 MG (95568 UT) Oral Capsule (Vitamin D2(Drisdol)) Take 1 [...] Description 04/07/2024 1:00 PM EDT Nutrition Services Nutrition[address] [place] [address] Concha Kaur, HUMAIRA 132 [place] [address] 04/11/2024 11:00 AM EDT Office Visit Family Practice [facility] 132 [facility] [address] Dru Fritz MD 132 [place] [address] 04/16/2024 11:45 AM EDT Office Visit Urology, [facility] 132 [place] [address] Isaías Novak MD [address] [place] [address] 04/18/2024 1:15 PM EDT Office Visit Hematology/Oncology [facility] [address] [place] [phone] Elio Queen MD [address] [place] [address] 05/08/2024 11:00 AM EDT Laboratory Laboratory [facility] [address] [place] [address] Saritha, Lab [facility] 200 [facility] [place] [address] 05/08/2024 11:45 AM EDT Immunization/Injectio n Hematology/Oncology Treatment, [place] [address] [place] [phone] Nurse, Med 4 200 [facility] [place] [address] 05/20/2024 2:15 PM EDT Office Visit Urology, [facility] 132 [facility] [place] [address] Isaías Novak MD [address] [place] [address] 07/01/2024 4:00 PM EDT Office Visit Family [facility] [address] [place] [address] Dru Fritz MD [address] [place] [address] Health Maintenance Due Date Last Done Comments DISCUSS TOBACCO CESSATION (REFER TO SMARTSET #8516) 1959 COVID-19 Vaccine (#1) 1964 Pneumococcal Vaccine: [...] Screening 03/06/2025 03/06/2024 CKD PHOS USE SMARTSET 12639 04/01/2025 07/0 11/2023, 03/11/2024, 03/06/2024, Additional history exists CKD HGB USE SMARTSET 48826 04/02/202504/02, 04/01/2024, 03/11/2024, Additional history exists Albumin/Creatinine [...] this encounter Medical Devices Implanted Type Area Proof Coin Collector Device Identifier Shelf Expiration Date Model / Serial / Lot Stent Trnscarotid Enroute 7x40 - [id number] Implanted:Qty: 1 on 01/25/2021 by Zeinab Robert MD at [facility] Left: Carotid [facility] [id number] 05/31/2023 SR-0740-C S / / [id number] documented as of this encounter Procedures Procedure Name Priority Date/Time Associated Diagnosis Comments RADIOLOGY EXAM - GENERAL RAD (IMAGES ONLY,NO REPORT) Routine 03/24/2024 4:50 PM EDT documented in this encounter Results * RADIOLOGY EXAM - GENERAL RAD (IMAGES ONLY,NO REPORT) (03/24/2024 4:50 PM EDT) 03/24/2024 4:50 PM EDT Narrative Scheduling, Silent - 04/02/2024 10:56 AM EDT This is an imaging study not interpreted or resulted by a [email or web address] or [employer] contracted radiologist. Elio Queen MD RADIOLOGY (RAD [...] patient or by statute hierarchy) Care Teams Mobile Pet Groomer Relationship Specialty Start Date End Date Dru Fritz MD [address] [place] [address] PCP - General Family Medicine 01/24/21 documented as of this encounter
--- OUTSIDE RECORDS SUMMARY | 2024-04-09 18:23 | External Medical Summary | Summary of Care ---
Author Name Unknown Organization [facility] Address [address] [place] [address] Phone [phone] Care Team Providers Care Workers' Compensation Hearings Officer Name Role Phone Dru Fritz MD Primary Care Provider [phone] [phone] Encounter Details Date Type Department Care Team (Latest Contact Info) Description 02/17/2024 9:40 AM EDT - 02/17/2024 9:44 AM EDT Hospital Encounter Radiology Film File [address] [place] [address] Discharge Disposition: Home - Self Care Allergies Active Allergy Reactions Criticality Noted Date Comments Amoxicillin-Pot Clavulanate 05/17/20 22 Dizziness and confused documented as of this encounter (statuses as of 04/03/2024) Medications Medication Sig Dispensed Refills Start Date End Date Status [employer] ULTRA SYSTEM W/DEVICE KITIndications:DM type 2, goal [...] 04/07/2024 1:00 PM EDT Nutrition Services Nutrition, [facility] [address] [place] [address] Concha Kaur RDN [address] [place] [address] 04/11/2024 11:00 AM EDT Office Visit Family Practice [facility] [address] [place] [address] Dru Fritz MD [address] [place] [address] 04/16/2024 11:45 AM EDT Office Visit Urology, [facility] [address] [place] [address] Isaías Novak MD [address] [place] [address] 04/18/2024 1:15 PM EDT Office Visit Hematology/Oncology [facility] [address] [place] [phone] Elio Queen MD [address] [place] [address] 05/08/2024 11:00 AM EDT Laboratory Laboratory [facility] [address] [place] [phone] [place], Lab [facility] 200 [facility] [place] [address] 05/08/2024 11:45 AM EDT Immunization/Injectio n Hematology/Oncology Treatment, [place] 200 [facility], [place] [phone] Nurse, Med 200 [facility] [place] [address] 05/20/2024 2:15 PM EDT Office Visit Urology, [facility] 132 [facility] [place] [address] Isaías Novak MD [address] [place] [address] 07/01/2024 4:00 PM EDT Office Visit Family Practice [facility] 132 [facility] [place] [address] Dru Fritz MD 132 [facility] [place] [address] Health Maintenance Due Date Last Done Comments DISCUSS TOBACCO CESSATION (REFER TO SMARTSET #7326) 1960 COVID-19 Vaccine (#1) 1964 Pneumococcal Vaccine: [...] Screening 03/06/2025 03/06/2024 CKD PHOS USE SMARTSET 39775 04/01/2025 07/0 11/2023, 03/11/2024, 03/06/2024, Additional history exists CKD HGB USE SMARTSET 66082 04/02/202504/02, 04/01/2024, 03/11/2024, Additional history exists Albumin/Creatinine [...] this encounter Medical Devices Implanted Type Area Qa Architect Device Identifier Shelf Expiration Date Model / Serial / Lot Stent Trnscarotid Enroute 7x40 - [id number] Implanted:Qty: 1 on 01/25/2021 by Zeinab Robert MD at [facility] Left: [facility] [id number] 05/31/2023 SR-0740-C S / / [id number] documented as of this encounter Procedures Procedure Name Priority Date/Time Associated Diagnosis Comments RADIOLOGY EXAM - US (IMAGES ONLY, NO REPORT) Routine 02/17/2024 9:40 AM EDT documented in this encounter Results * RADIOLOGY EXAM - US (IMAGES ONLY, NO REPORT) (02/17/2024 9:40 AM EDT) 02/17/2024 9:38 AM EDT Narrative Scheduling, Silent - 04/02/2024 10:52 AM EDT This is an imaging study not interpreted or resulted by a [facility] or [employer] contracted radiologist. Elio Queen MD RAD ULTRASOUND [...] patient or by statute hierarchy) Care Teams Workers' Compensation Hearings Officer Relationship Specialty Start Date End Date Dru Fritz MD [address] [place] [address] PCP - General Family Medicine 01/24/21 documented as of this encounter
--- OUTSIDE RECORDS SUMMARY | 2024-04-09 18:23 | External Medical Summary ---
Author Name Unknown Address Unknown Organization K01:[facility] C - [address] [place] [address] Laboratory Report Ordering Provider Test Date Status KHUSHBU PAT 04/07/2024 12:58:43 Final Observation Date Value Abnormality Reference (Units ) Status Iron 04/07/2024 12:58:43 61 45-176 (ug/dL) Final Iron-binding capacity 04/07/2024 12:58:43 93 Below low normal 250-425 (ug/dL) Final Transferrin Sat % 04/07/2024 12:58:43 66 Above high normal 15-55 (%) Final Performing Location [facility] - [address] [place] [address]
--- OUTSIDE RECORDS SUMMARY | 2024-04-09 18:23 | External Medical Summary ---
Author Name Unknown Address Unknown Organization K0G:[facility]ORY [facility] [place] 57-10 - [address] [place] [address] Laboratory Report Ordering Provider Test Date Status KHUSHBU PAT 04/07/2024 12:58:43 Final Observation Date Value Abnormality Reference (Units ) Status WBC, Total 04/07/2024 12:58:43 4.10 4.00-10.8 0 (K/uL) Final RBC 04/07/2024 12:58:43 2.95 4.50-5.25 (M/uL) Final Hemoglobin 04/07/2024 12:58:43 8.8 Below low normal 14 .0-16.8 (g/dL) Final HCT 04/07/2024 12:58:43 27.2 Below low normal 40. 0-48.4 (%) Final MCV 04/07/2024 12:58:43 92.2 82.0-99.5 (fL) Final MCH 04/07/2024 12:58:43 29.8 27.0-34.0 (pg) Final MCHC 04/07/2024 12:58:43 32.4 32.0-36.0 (g/dL) Final RDW 04/07/2024 12:58:43 15.2 11.5-15.5 (%) Final Platelets 04/07/2024 12:58:43 31 Below low normal 140 -400 (K/uL) Final MPV 04/07/2024 12:58:43 8.8 6.6-11.1 ( fL) Final Performing Location LABORATORY [place] 57-1 0 - [address] [place] [address]
--- OUTSIDE RECORDS SUMMARY | 2024-04-09 18:23 | External Medical Summary ---
Author Name Unknown Address Unknown Organization K0G:LAB[facility]ATORY [place] 57-10 - [address] [place] [address] Laboratory Report Ordering Provider Test Date Status KHUSHBU PAT 04/07/2024 12:58:43 Final Observation Date Value Abnormality Reference (Units ) Status SYNC LEUKOCYTES IN BLOOD BY AUTOMATED COUNT 04/07/2024 12:58:43 4.10 4.00-10.80 (K/uL) Final Neutrophils/100 leukocytes in Blood by Manual count 04/07/2024 12:58:43 71.0 40.0-75.0 (%) Final Lymphocytes/100 leukocytes in Blood by Manual count 04/07/2024 12:58:43 15.0 Below low normal 18.0-42.0 (%) Final Monocytes/100 leukocytes in Blood by Manual count 04/07/2024 12:58:43 10.0 1.0-11.0 (%) Final Eosinophils/100 leukocytes in Blood by Manual count 04/07/2024 12:58:43 3.0 0.0-6.0 (%) Final Metamyelocytes/100 leukocytes in Blood by Manual count 04/07/2024 12:58:43 1.0 Above high normal <=0.0 (%) Final Neutrophils [#/volume] in Blood by Manual count 04/07/2024 12:58:43 2.91 1.80-7.70 (K/uL) Final Lymphocytes [#/volume] in Blood by Manual count 04/07/2024 12:58:43 0.62 Below low normal 1.00-4.80 (K/uL) Final Monocytes [#/volume] in Blood by Manual count 04/07/2024 12:58:43 0.41 0.00-1.10 (K/uL) Final Eosinophils [#/volume] in Blood by Manual count 04/07/2024 12:58:43 0.12 0.00-0.70 (K/uL) Final Metamyelocytes [#/volume] in Blood by Manual count 04/07/2024 12:58:43 0.04 Above high normal <=0.00 (K/uL) Final Nucleated erythrocytes/100 leukocytes [Ratio] in Blood by Automated count 04/07/2024 12:58:43 Final Performing Location LABORATORY [place] 57-1 0 - [address] [facility] [address]
--- OUTSIDE RECORDS SUMMARY | 2024-04-09 18:23 | External Medical Summary | Summary of Care ---
Author Name Unknown Organization [facility] Address [address] [place] [address] Phone [phone] Care Team Providers Care Reverser Name Role Phone Dru Fritz MD Primary Care Provider [phone] Encounter Details Date Type Department Care Team (Latest Contact Info) Description 03/29/2024 11:15 AM EDT - 03/29/2024 11:59 PM EDT Hospital Encounter Radiology Film File [address] [place] [address] Discharge Disposition: Home - Self Care Allergies Active Allergy Reactions Criticality Noted Date Comments Amoxicillin-Pot Clavulanate 05/17/20 22 Dizziness and confused documented as of this encounter (statuses as of 04/03/2024) Medications Medication Sig Dispensed Refills Start Date End Date Status [employer] ULTRA SYSTEM W/DEVICE KITIndications:DM type 2, goal [...] Tablet 2 09/13/2023 Active Ergocalciferol 1.25 MG (96071 UT) Oral Capsule (Vitamin D2(Drisdol)) Take 1 [...] Description 04/07/2024 1:00 PM EDT Nutrition Services Nutrition[address] [place] [address] Concha Kaur, HUMAIRA 132 [place] [address] 04/11/2024 11:00 AM EDT Office Visit Family Practice [facility] 132 [place] [address] Dru Fritz MD 132 [facility] [place] [address] 04/16/2024 11:45 AM EDT Office Visit Urology, [facility] 132 [place] [address] Isaías Novak MD [address] [place] [address] 04/18/2024 1:15 PM EDT Office Visit Hematology/Oncology [facility] [address] [place] [phone] Elio Queen MD [address] [place] [address] 05/08/2024 11:00 AM EDT Laboratory Laboratory [facility] [address] [place] [phone] Saritha, Lab [facility] 200 [facility] [place] [address] 05/08/2024 11:45 AM EDT Immunization/Injectio n Hematology/Oncology Treatment, [place] [address] [place], [place] [phone] Nurse, Med 4 200 [facility] [place] [address] 05/20/2024 2:15 PM EDT Office Visit Urology, [facility] 132 [place] [address] Isaías Novak MD [address] [place] [address] 07/01/2024 4:00 PM EDT Office Visit Family [facility] [address] [place] [address] Dru Fritz MD [address] [place] [address] Health Maintenance Due Date Last Done Comments DISCUSS TOBACCO CESSATION (REFER TO SMARTSET #2312) 1960 COVID-19 Vaccine (#1) 1964 Pneumococcal Vaccine: [...] Screening 03/06/2025 03/06/2024 CKD PHOS USE SMARTSET 11330 04/01/2025 07/0 11/2023, 03/11/2024, 03/06/2024, Additional history exists CKD HGB USE SMARTSET 76209 04/02/202504/02, 04/01/2024, 03/11/2024, Additional history exists Albumin/Creatinine [...] this encounter Medical Devices Implanted Type Area Paediatric Physiotherapist Device Identifier Shelf Expiration Date Model / Serial / Lot Stent Trnscarotid Enroute 7x40 - [id number] Implanted:Qty: 1 on 01/25/2021 by Zeinab Robert MD at [facility] Left: Carotid [facility] [id number] 05/31/2023 SR-0740-C S / / [id number] documented as of this encounter Procedures Procedure Name Priority Date/Time Associated Diagnosis Comments RADIOLOGY EXAM - CT (IMAGES ONLY, NO REPORT) Routine 03/29/2024 11:15 AM EDT documented in this encounter Results * RADIOLOGY EXAM - CT (IMAGES ONLY, NO REPORT) (03/29/2024 11:15 AM EDT) 03/29/2024 11:1 5 AM EDT Narrative Scheduling, Silent - 04/02/2024 10:54 AM EDT This is an imaging study not interpreted or resulted by a [facility] or [employer] contracted radiologist. Elio Queen MD RAD CT documented in this encounter Advance Directives * [...] patient or by statute hierarchy) Care Teams Reverser Relationship Specialty Start Date End Date Dru Fritz MD [address] [place] [address] PCP - General Family Medicine 01/24/21 documented as of this encounter
--- OUTSIDE RECORDS SUMMARY | 2024-04-09 18:23 | External Medical Summary | Summary of Care ---
Author Name Unknown Organization [facility] Address [address] [place] [address] Phone [phone] Care Team Providers Care Dental Officer Name Role Phone Dru Fritz MD Primary Care Provider [phone] [phone] Encounter Details Date Type Department Care Team (Latest Contact Info) Description 02/17/2024 2:10 PM EDT - 02/17/2024 2:14 PM EDT Hospital Encounter Radiology Film File [address] [place] [address] Discharge Disposition: Home - Self Care Allergies Active Allergy Reactions Criticality Noted Date Comments Amoxicillin-Pot Clavulanate 05/17/20 22 Dizziness and confused documented as of this encounter (statuses as of 04/03/2024) Medications Medication Sig Dispensed Refills Start Date End Date Status [employer] ULTRA SYSTEM W/DEVICE KITIndications:DM type 2, goal [...] 04/07/2024 1:00 PM EDT Nutrition Services Nutrition, [facility] [address] [place] [address] Concha Kaur RDN [address] [place] [address] 04/11/2024 11:00 AM EDT Office Visit Family Practice [facility] [address] [place] [address] Dru Fritz MD [address] [place] [address] 04/16/2024 11:45 AM EDT Office Visit Urology, [facility] [address] [place] [address] Isaías Novak MD [address] [place] [address] 04/18/2024 1:15 PM EDT Office Visit Hematology/Oncology [facility] [address] [place] [phone] Elio Queen MD [address] [place] [address] 05/08/2024 11:00 AM EDT Laboratory Laboratory [facility] [address] [place] [phone] [place], Lab [facility] 200 [facility] [place] [address] 05/08/2024 11:45 AM EDT Immunization/Injectio n Hematology/Oncology Treatment, [place] 200 [facility], [place] [phone] Nurse, Med 200 [facility] [place] [address] 05/20/2024 2:15 PM EDT Office Visit Urology, [facility] 132 [facility] [place] [address] Isaías Novak MD [address] [address] 07/01/2024 4:00 PM EDT Office Visit Family Practice [facility] 132 [facility] [place] [address] Dru Fritz MD 132 [place] [address] Health Maintenance Due Date Last Done Comments DISCUSS TOBACCO CESSATION (REFER TO SMARTSET #7197) 1960 COVID-19 Vaccine (#1) 1964 Pneumococcal Vaccine: [...] Screening 03/06/2025 03/06/2024 CKD PHOS USE SMARTSET 19367 04/01/2025 07/0 11/2023, 03/11/2024, 03/06/2024, Additional history exists CKD HGB USE SMARTSET 40227 04/02/202504/02, 04/01/2024, 03/11/2024, Additional history exists Albumin/Creatinine [...] this encounter Medical Devices Implanted Type Area Contact Finger Assembler Device Identifier Shelf Expiration Date Model / Serial / Lot Stent Trnscarotid Enroute 7x40 - [id number] Implanted:Qty: 1 on 01/25/2021 by Zeinab Robert MD at [facility] Left: [facility] [id number] 05/31/2023 SR-0740-C S / / [id number] documented as of this encounter Procedures Procedure Name Priority Date/Time Associated Diagnosis Comments RADIOLOGY EXAM - CT (IMAGES ONLY, NO REPORT) Routine 02/17/2024 2:10 PM EDT documented in this encounter Results * RADIOLOGY EXAM - CT (IMAGES ONLY, NO REPORT) (02/17/2024 2:10 PM EDT) 02/17/2024 2:10 PM EDT Narrative Scheduling, Silent - 04/02/2024 10:58 AM EDT This is an imaging study not interpreted or resulted by a [facility] or [email or web address] contracted radiologist. Elio Queen MD RAD CT [...] patient or by statute hierarchy) Care Teams Dental Officer Relationship Specialty Start Date End Date Dru Fritz MD [address] [place] [address] PCP - General Family Medicine 01/24/21 documented as of this encounter
--- OUTSIDE RECORDS SUMMARY | 2024-04-09 18:23 | External Medical Summary | Summary of Care ---
Author Name Unknown Organization [facility] Address [address] [place] [address] Phone [phone] Care Team Providers Care Sample Tailor Name Role Phone Dru Fritz MD Primary Care Provider [phone] [phone] Encounter Details Date Type Department Care Team (Latest Contact Info) Description 02/17/2024 2:15 PM EDT - 02/17/2024 11:59 PM EDT Hospital Encounter Radiology Film File [address] [place] [address] Discharge Disposition: Home - Self Care Allergies Active Allergy Reactions Criticality Noted Date Comments Amoxicillin-Pot Clavulanate 05/17/20 22 Dizziness and confused documented as of this encounter (statuses as of 04/03/2024) Medications Medication Sig Dispensed Refills Start Date End Date Status [employer] ULTRA SYSTEM W/DEVICE KITIndications:DM type 2, goal [...] 04/07/2024 1:00 PM EDT Nutrition Services Nutrition, [facility] [address] [place] [address] Concha Kaur RDN [address] [place] [address] 04/11/2024 11:00 AM EDT Office Visit Family Practice [facility] [address] [place] [address] Dru Fritz MD [address] [place] [address] 04/16/2024 11:45 AM EDT Office Visit Urology, [facility] [address] [place] [address] Isaías Novak MD [address] [place] [address] 04/18/2024 1:15 PM EDT Office Visit Hematology/Oncology [facility] [address] [place] [phone] Elio Queen MD [address] [place] [address] 05/08/2024 11:00 AM EDT Laboratory Laboratory [facility] [address] [place] [phone] [place], Lab [facility] 200 [facility] [place] [address] 05/08/2024 11:45 AM EDT Immunization/Injectio n Hematology/Oncology Treatment, [place] 200 [facility], [place] [phone] Nurse, Med 200 [facility] [place] [address] 05/20/2024 2:15 PM EDT Office Visit Urology, [facility] 132 [facility] [place] [address] Isaías Novak MD [address] [place] [address] 07/01/2024 4:00 PM EDT Office Visit Family Practice [facility] 132 [facility] [place] [address] Dru Fritz MD 132 [place] [address] Health Maintenance Due Date Last Done Comments DISCUSS TOBACCO CESSATION (REFER TO SMARTSET #9644) 1960 COVID-19 Vaccine (#1) 1964 Pneumococcal Vaccine: [...] Screening 03/06/2025 03/06/2024 CKD PHOS USE SMARTSET 80933 04/01/2025 07/0 11/2023, 03/11/2024, 03/06/2024, Additional history exists CKD HGB USE SMARTSET 32876 04/02/202504/02, 04/01/2024, 03/11/2024, Additional history exists Albumin/Creatinine [...] this encounter Medical Devices Implanted Type Area Structural Welder Device Identifier Shelf Expiration Date Model / Serial / Lot Stent Trnscarotid Enroute 7x40 - [id number] Implanted:Qty: 1 on 01/25/2021 by Zeinab Robert MD at [facility] Left: [facility] [id number] 05/31/2023 SR-0740-C S / / [id number] documented as of this encounter Procedures Procedure Name Priority Date/Time Associated Diagnosis Comments RADIOLOGY EXAM - CT (IMAGES ONLY, NO REPORT) Routine 02/17/2024 2:15 PM EDT documented in this encounter Results * RADIOLOGY EXAM - CT (IMAGES ONLY, NO REPORT) (02/17/2024 2:15 PM EDT) 02/17/2024 2:10 PM EDT Narrative Scheduling, Silent - 04/02/2024 11:03 AM EDT This is an imaging study not interpreted or resulted by a [facility] or [facility] contracted radiologist. Elio Queen MD RAD CT [...] patient or by statute hierarchy) Care Teams Sample Tailor Relationship Specialty Start Date End Date Dru Fritz MD [address] [place] [address] PCP - General Family Medicine 01/24/21 documented as of this encounter
--- OUTSIDE RECORDS SUMMARY | 2024-04-09 18:23 | External Medical Summary ---
Author Name Unknown Address Unknown Organization K01:LABORATORY C - [address] [place] [address] Laboratory Report Ordering Provider Test Date Status ADILIAKHUSHBU 04/07/2024 12:58:43 Final Observation Date Value Abnormality Reference (Units ) Status PSA 04/07/2024 12:58:43 519.60 Above high normal <4 .10 (ng/mL) Final Performing Location [facility] - [address] [place] [address]
--- OUTSIDE RECORDS SUMMARY | 2024-04-09 18:23 | External Medical Summary | Summary of Care ---
Author Name Unknown Organization [facility] Address [address] [place] [address] Phone [phone] Care Team Providers Care Ball Winder Name Role Phone Dru Fritz MD Primary Care Provider [phone] [phone] Reason for Visit * Reason Comments Outpatient Testing Encounter Details Date Type Department Care Team (Late st Contact Info) Description 04/07/2024 2:00 PM EDT Laboratory Laboratory, [facility] [address] [facility] [address] [facility] [address] [place] [address] Anemia, unspecified type; Prostate cancer metastatic to multiple sites (HCC); Metastasis to bone (HCC); Gross hematuria Allergies Active Allergy Reactions Criticality Noted Date Comments Amoxicillin-Pot Clavulanate 05/17/20 22 Dizziness and confused documented as of this encounter (statuses as of 04/07/2024) Medications Medication Sig Dispensed Refills Start Date End Date Status BetfairUCH ULTRA SYSTEM W/DEVICE KITIndications:DM type 2, goal [...] Tablet 2 09/13/2023 Active Ergocalciferol 1.25 MG (69027 UT) Oral Capsule (Vitamin D2(Drisdol)) Take 1 [...] 03/06/2024 Does the household have a re lar source of income? (Household - for ages [...] (15 years old or older) No 04/01/20 24 Cognitive Status Response Date of Assessm ent Because of a physical, menta l, or emotional condition, do you have serious difficulty concentrating, remembering, or making decisions? (5 years old or older) No 04/01/2024 documented as of this encounter Plan of Treatment Upcoming Encounters Date Type Department Care Team (Late st Contact Info) Description 04/07/2024 1:45 PM EDT Office Visit Urology, [facility] [address] [place] [address] Isaías Novak MD [address] [place] [address] Arrived 04/11/2024 11:00 AM EDT Office Visit Family Practice [facility] [address] [place] [address] Dru Fritz MD [address] [place] [address] 04/18/2024 1:15 PM EDT Office Visit Hematology/Oncology [facility] [address] [place] [phone] Elio Queen MD [address] [place] [address] 05/08/2024 11:00 AM EDT Laboratory Laboratory [facility] [address] [place] [phone] Isis Melara [facility] [address] [place] [address] 05/08/2024 11:45 AM EDT Immunization/Injectio n Hematology/Oncology Treatment, [place] [address] [place] [address] Nurse, Med [address] [place] [address] 05/20/2024 2:15 PM EDT Office Visit Urology, [facility] [address] [place] [address] Isaías Novak MD [address] [place] [address] 07/01/2024 4:00 PM EDT Office Visit Family Practice [facility] [address] [place] [address] Dru Fritz MD [address] [place] [address] Pending Results Name Type Priority Associated Diagnoses Date /Time CBC WITH WBC DIFFERENTIAL Lab STAT Anemia, unspecified type 04/07/2024 12:58 PM EDT COMPREHENSIVE METABOLIC PANEL Lab STAT Anemia, unspecified type Prostate cancer metastatic to multiple sites (HCC) Metastasis to bone (HCC) 04/07/2024 12:58 PM EDT IRON SCREEN, INCLUDING TIBC Lab STAT Anemia, unspecified type Prostate cancer metastatic to multiple sites (HCC) Metastasis to bone (HCC) 04/07/2024 12:58 PM EDT FERRITIN Lab STAT Anemia, unspecified type Prostate cancer metastatic to multiple sites (HCC) Metastasis to bone (HCC) 04/07/2024 12:58 PM EDT PSA Lab STAT Anemia, unspecified type Prostate cancer metastatic to multiple sites (HCC) Metastasis to bone (HCC) 04/07/2024 12:58 PM EDT CBC Lab STAT Anemia, unspecified type 04/07/2024 12:58 PM EDT DIFFERENTIAL, AUTOMATED Lab STAT Anemia, unspecified type 04/07/2024 12:58 PM EDT Health Maintenance Due Date Last [...] Screening 03/06/2025 03/06/2024 CKD PHOS USE SMARTSET 31280 04/01/2025 07/0 11/2023, 03/11/2024, 03/06/2024, Additional history exists CKD HGB USE SMARTSET 86096 04/02/202504/02, 04/01/2024, 03/11/2024, Additional history exists Albumin/Creatinine [...] this encounter Medical Devices Implanted Type Area Underwater Trapper Device Identifier Shelf Expiration Date Model / Serial / Lot Stent Trnscarotid Enroute 7x40 - [id number] Implanted:Qty: 1 on 01/25/2021 by Zeinab Robert MD at [facility] Left: [facility] [id number] 05/31/2023 SR-0740-C S / / [id number] documented as of this encounter Visit Diagnoses Diagnosis Anemia, unspecified type Prostate cancer metastatic to multiple sites (HCC) Malignant neoplasm of prostate Metastasis to bone (HCC) Secondary malignant neoplasm of bone and bone marrow Gross hematuria documented in this encounter Advance Directives * [...] patient or by statute hierarchy) Care Teams Ball Winder Relationship Specialty Start Date End Date Dru Fritz MD 132 [facility] [place] [address] PCP - General Family Medicine 01/24/21 documented as of this encounter
--- OUTSIDE RECORDS SUMMARY | 2024-04-09 18:23 | External Medical Summary | Summary of Care ---
Author Name Unknown Organization [facility] Address [address] [facility] [place] [address] Phone [phone] Care Team Providers Care Special Events Director Name Role Phone Dru Fritz MD Primary Care Provider [phone] [phone] Encounter Details Date Type Department Care Team (Late st Contact Info) Description 04/04/2024 Population Health External Data Unspecified Department Allergies Active Allergy Reactions Criticality Noted Date Comments Amoxicillin-Pot Clavulanate 05/17/20 22 Dizziness and confused documented as of this encounter (statuses as of 04/04/2024) Medications Medication Sig Dispensed Refills Start Date End Date Status KipoTOUCH ULTRA SYSTEM W/DEVICE KITIndications:DM type 2, goal [...] Tablet 2 09/13/2023 Active Ergocalciferol 1.25 MG (27566 UT) Oral Capsule (Vitamin D2(Drisdol)) Take 1 [...] as of this encounter (statuses as of 04/04/2024) Active Problems Problem Noted Date Diagnosed Date [...] as of this encounter (statuses as of 04/04/2024) Resolved Problems Problem Noted Date Diagnosed Date [...] as of this encounter (statuses as of 04/04/2024) Immunizations No known immunizationsdocumented as of this [...] No 03/06/2024 Does the household have a [facility] source of income? (Household - for ages [...] 04/07/2024 1:00 PM EDT Nutrition Services Nutrition, [facility] 132 [facility] [place] [address] Concha Kaur RDN 132 [facility] [place] [address] 04/11/2024 11:00 AM EDT Office Visit Family Practice [facility] 132 [facility] [place] [address] Dru Fritz MD 132 [facility] [place] [address] 04/16/2024 11:45 AM EDT Office Visit Urology, [facility] 132 [facility] [place] [address] Isaías Novak MD [address] [place] [phone] 04/18/2024 1:15 PM EDT Office Visit Hematology/Oncology [place] [address] [address] [place] [address] Elio Queen MD 200 [facility] [place] [address] 05/08/2024 11:00 AM EDT Laboratory Laboratory [facility] [place] [address] [address] [place] [address] Isis Melara [place] [address] [address] [place] [address] 05/08/2024 11:45 AM EDT Immunization/Injectio n Hematology/Oncology Treatment, [address] [phone] Nurse, Med 4 200 [place] [address] 05/20/2024 2:15 PM EDT Office Visit Urology, [facility] [place] [address] Isaías Novak MD [address] [place] [phone] 07/01/2024 4:00 PM EDT Office Visit Family Practice [facility] [address] Dru Fritz MD 132 [facility] [place] [address] Health Maintenance Due Date Last Done Comments DISCUSS TOBACCO CESSATION (REFER TO SMARTSET #7948) 1959 COVID-19 Vaccine (#1) 1964 Pneumococcal Vaccine: [...] Screening 03/06/2025 03/06/2024 CKD PHOS USE SMARTSET 20771 04/01/2025 07/0 11/2023, 03/11/2024, 03/06/2024, Additional history exists CKD HGB USE SMARTSET 10484 04/02/202504/024, 04/01/2024, 03/11/2024, Additional history exists Albumin/Creatinine Ratio [...] this encounter Medical Devices Implanted Type Area Lens And Frames Prescription Clerk Device Identifier Shelf Expiration Date Model / Serial / Lot Stent Trnscarotid Enroute 7x40 - [id number] Implanted:Qty: 1 on 01/25/2021 by Zeinab Robert MD at [facility] Left: [facility] [id number] 05/31/2023 SR-0740-C S / / [id number] documented as of this encounter Advance Directives * Limited Code [...] patient or by statute hierarchy) Care Teams Special Events Director Relationship Specialty Start Date End Date Dru Fritz MD 132 [facility] [place] [address] PCP - General Family Medicine 01/24/21 documented as of this encounter
--- OUTSIDE RECORDS SUMMARY | 2024-04-09 18:23 | External Medical Summary ---
Author Name Unknown Address Unknown Organization K01:[facility] - [address] [place] [address] Laboratory Report Ordering Provider Test Date Status ADILIAKHUSHBU 04/07/2024 12:58:43 Final Observation Date Value Abnormality Reference (Units ) Status Ferritin 04/07/2024 12:58:43 2952 Above high normal 30 -400 (ng/mL) Final Performing Location [facility] - [address] [place] [address]
--- OUTSIDE RECORDS SUMMARY | 2024-04-09 18:23 | External Medical Summary | Summary of Care ---
Author Name Unknown Organization [facility] Address [address] [place] [address] Phone [phone] Care Team Providers Care Box Loader Name Role Phone Dru Fritz MD Primary Care Provider [phone] [phone] Encounter Details Date Type Department Care Team (Latest Contact Info) Description 02/18/2024 5:10 PM EDT - 02/18/2024 11:59 PM EDT Hospital Encounter Radiology Film File [address] [place] [address] Discharge Disposition: Home - Self Care Allergies Active Allergy Reactions Criticality Noted Date Comments Amoxicillin-Pot Clavulanate 05/17/20 22 Dizziness and confused documented as of this encounter (statuses as of 04/03/2024) Medications Medication Sig Dispensed Refills Start Date End Date Status 1,2,3 Listo ULTRA SYSTEM W/DEVICE KITIndications:DM type 2, goal [...] 04/07/2024 1:00 PM EDT Nutrition Services Nutrition, [facility] [address] [place] [address] Concha Kaur RDN [address] [place] [address] 04/11/2024 11:00 AM EDT Office Visit Family Practice [facility] [address] [place] [address] Dru Fritz MD [address] [place] [address] 04/16/2024 11:45 AM EDT Office Visit Urology, [facility] [address] [place] [address] Isaías Novak MD [address] [place] [address] 04/18/2024 1:15 PM EDT Office Visit Hematology/Oncology [facility] [address] [place] [phone] Elio Queen MD [address] [place] [address] 05/08/2024 11:00 AM EDT Laboratory Laboratory [facility] [address] [place] [phone] [place], Lab [facility] 200 [facility] [place] [address] 05/08/2024 11:45 AM EDT Immunization/Injectio n Hematology/Oncology Treatment, [place] 200 [facility], [place] [phone] Nurse, Med 200 [facility] [place] [address] 05/20/2024 2:15 PM EDT Office Visit Urology, [facility] 132 [facility] [place] [address] Isaías Novak MD [address] [place] [address] 07/01/2024 4:00 PM EDT Office Visit Family Practice [facility] 132 [facility] [place] [address] Dru Fritz MD 132 [place] [address] Health Maintenance Due Date Last Done Comments DISCUSS TOBACCO CESSATION (REFER TO SMARTSET #1991) 1959 COVID-19 Vaccine (#1) 1964 Pneumococcal Vaccine: [...] Screening 03/06/2025 03/06/2024 CKD PHOS USE SMARTSET 31471 04/01/2025 07/0 11/2023, 03/11/2024, 03/06/2024, Additional history exists CKD HGB USE SMARTSET 16928 04/02/202504/02, 04/01/2024, 03/11/2024, Additional history exists Albumin/Creatinine [...] this encounter Medical Devices Implanted Type Area Banking Pin Adjuster Device Identifier Shelf Expiration Date Model / Serial / Lot Stent Trnscarotid Enroute 7x40 - [id number] Implanted:Qty: 1 on 01/25/2021 by Zeinab Robert MD at [facility] Left: [facility] [id number] 05/31/2023 SR-0740-C S / / [id number] documented as of this encounter Procedures Procedure Name Priority Date/Time Associated Diagnosis Comments RADIOLOGY EXAM - FLUOROSCOPY (IMAGES ONLY, NO REPORT) Routine 02/18/2024 5:10 PM EDT documented in this encounter Results * RADIOLOGY EXAM - FLUOROSCOPY (IMAGES ONLY, NO REPORT) (02/18/2024 5:10 PM EDT) 02/18/2024 5:05 PM EDT Narrative Scheduling, Silent - 04/02/2024 11:06 AM EDT This is an imaging study not interpreted or resulted by a [facility] or [facility] contracted radiologist. Elio Queen MD RAD FLUOROSCOPY documented in this encounter Advance Directives * [...] patient or by statute hierarchy) Care Teams Box Loader Relationship Specialty Start Date End Date Dru Fritz MD [address] [place] [address] PCP - General Family Medicine 01/24/21 documented as of this encounter
--- OUTSIDE RECORDS SUMMARY | 2024-04-09 18:23 | External Medical Summary | Summary of Care ---
Author Name Unknown Organization [facility] Address [address] [place] [address] Phone [phone] Care Team Providers Care Medical Billing Service Name Role Phone Dru Fritz MD Primary Care Provider [phone] -[phone] Encounter Details Date Type Department Care Team (Latest Contact Info) Description 02/27/2024 9:20 AM EDT - 02/27/2024 11:59 PM EDT Hospital Encounter Radiology Film File [address] [place] [address] Discharge Disposition: Home - Self Care Allergies Active Allergy Reactions Criticality Noted Date Comments Amoxicillin-Pot Clavulanate 05/17/20 22 Dizziness and confused documented as of this encounter (statuses as of 04/03/2024) Medications Medication Sig Dispensed Refills Start Date End Date Status RipCode ULTRA SYSTEM W/DEVICE KITIndications:DM type 2, goal [...] 04/07/2024 1:00 PM EDT Nutrition Services Nutrition, [facility] [address] [place] [address] Concha Kaur RDN [address] [place] [address] 04/11/2024 11:00 AM EDT Office Visit Family Practice [facility] [address] [place] [address] Dru Fritz MD [address] [place] [address] 04/16/2024 11:45 AM EDT Office Visit Urology, [facility] [address] [place] [address] Isaías Novak MD [address] [place] [address] 04/18/2024 1:15 PM EDT Office Visit Hematology/Oncology [facility] [address] [place] [phone] Elio Queen MD [address] [place] [address] 05/08/2024 11:00 AM EDT Laboratory Laboratory [facility] [address] [place] [phone] Park, Lab [facility] 200 [facility] [place] [address] 05/08/2024 11:45 AM EDT Immunization/Injectio n Hematology/Oncology Treatment, [place] 200 [facility], [place] [phone] Nurse, Med 200 [facility] [place] [address] 05/20/2024 2:15 PM EDT Office Visit Urology, [facility] 132 [facility] [place] [address] Isaías Novak MD [address] [place] [address] 07/01/2024 4:00 PM EDT Office Visit Family Practice [facility] 132 [facility] [place] [address] Dru Fritz MD 132 [facility] [place] [address] Health Maintenance Due Date Last Done Comments DISCUSS TOBACCO CESSATION (REFER TO SMARTSET #4433) 1959 COVID-19 Vaccine (#1) 1964 Pneumococcal Vaccine: [...] Screening 03/06/2025 03/06/2024 CKD PHOS USE SMARTSET 34644 04/01/2025 07/0 11/2023, 03/11/2024, 03/06/2024, Additional history exists CKD HGB USE SMARTSET 22700 04/02/202504/02, 04/01/2024, 03/11/2024, Additional history exists Albumin/Creatinine [...] this encounter Medical Devices Implanted Type Area International Operations Manager Device Identifier Shelf Expiration Date Model / Serial / Lot Stent Trnscarotid Enroute 7x40 - [id number] Implanted:Qty: 1 on 01/25/2021 by Zeinab Robert MD at [facility] Left: [facility] [id number] 05/31/2023 SR-0740-C S / / [id number] documented as of this encounter Procedures Procedure Name Priority Date/Time Associated Diagnosis Comments RADIOLOGY EXAM - CT (IMAGES ONLY, NO REPORT) Routine 02/27/2024 9:20 AM EDT documented in this encounter Results * RADIOLOGY EXAM - CT (IMAGES ONLY, NO REPORT) (02/27/2024 9:20 AM EDT) 02/27/2024 9:19 AM EDT Narrative Scheduling, Silent - 04/02/2024 10:56 AM EDT This is an imaging study not interpreted or resulted by a [facility] or [facility] contracted radiologist. Elio Queen MD RAD CT [...] patient or by statute hierarchy) Care Teams Medical Billing Service Relationship Specialty Start Date End Date Dru Fritz MD [address] [place] [address] PCP - General Family Medicine 01/24/21 documented as of this encounter
--- OUTSIDE RECORDS SUMMARY | 2024-04-09 18:23 | External Medical Summary ---
Author Name Unknown Address Unknown Organization K0G:[facility] [place] [address] - [address] [place] [address] Laboratory Report Ordering Provider Test Date Status KHUSHBU PAT 04/07/2024 12:58:43 Final Observation Date Value Abnormality Reference (Units ) Status BUN 04/07/2024 12:58:43 15 6-20 (mg/dL) Final Creatinine 04/07/2024 12:58:43 1.0 0.6-1.2 (mg/dL) Final Glomerular filtration rate/1.73 sq M.predicted [Volume Rate/Area] in Serum, Plasma or Blood by Creatinine-based formula (CKD-EPI) 04/07/2024 12:58:43 82 >=60 (mL/min) Final eGFR is calculated based on the CKD-EPI 2020 equation Sodium 04/07/2024 12:58:43 143 135-146 (m mol/L) Final Potassium 04/07/2024 12:58:43 4.2 3.5-5.1 (m mol/L) Final Cl 04/07/2024 12:58:43 107 98-107 (mm ol/L) Final CO2 04/07/2024 12:58:43 23 22-32 (mmo l/L) Final Anion gap 04/07/2024 12:58:43 13 7-15 (mmol /L) Final Glucose 04/07/2024 12:58:43 112 70-120 (mg /dL) Final Albumin 04/07/2024 12:58:43 2.8 Below low normal 3.8 -5.0 (g/dL) Final AST (Aspartate aminotransferase) 04/07/2024 12:58:43 39 10-50 (U/L) Fin al Alk Phos 04/07/2024 12:58:43 1014 Above high normal 35 -130 (U/L) Final Bilirubin, Total 04/07/2024 12:58:43 0.6 <=1 .2 (mg/dL) Final Calcium 04/07/2024 12:58:43 8.2 Below low normal 8.4 -10.2 (mg/dL) Final Protein 04/07/2024 12:58:43 5.5 Below low normal 6.0 -8.3 (g/dL) Final ALT (Alanine aminotransferase) 04/07/2024 12:58:43 6 Below low normal 10-50 (U/L) Final Performing Location [facility] [place] [facility] 0 - [address] [facility] [address]
--- OUTSIDE RECORDS SUMMARY | 2024-04-09 18:24 | External Medical Summary | Summary of Care ---
Author Name Unknown Organization [facility] Address [address] [place] [address] Phone [phone] Care Team Providers Care Tinware Lithograph Press Operator Name Role Phone Dru Fritz MD Primary Care Provider [phone] [phone] Encounter Details Date Type Department Care Team (Latest Contact Info) Description 03/24/2024 10:05 PM EDT - 03/24/2024 11:59 PM EDT Hospital Encounter Radiology Film File [address] [place] [address] Discharge Disposition: Home - Self Care Allergies Active Allergy Reactions Criticality Noted Date Comments Amoxicillin-Pot Clavulanate 05/17/20 22 Dizziness and confused documented as of this encounter (statuses as of 04/03/2024) Medications Medication Sig Dispensed Refills Start Date End Date Status [employer] ULTRA SYSTEM W/DEVICE KITIndications:DM type 2, goal [...] Tablet 2 09/13/2023 Active Ergocalciferol 1.25 MG (44839 UT) Oral Capsule (Vitamin D2(Drisdol)) Take 1 [...] Description 04/07/2024 1:00 PM EDT Nutrition Services Nutrition[address] [place] [address] Concha Kaur, HUMAIR[place] 132 [place] [address] 04/11/2024 11:00 AM EDT Office Visit Family Practice [facility] 132 [facility] [place] [address] Dru Fritz MD 132 [place] [address] 04/16/2024 11:45 AM EDT Office Visit Urology, [facility] 132 [facility] [place] [address] Isaías Novak MD [address] [place] [address] 04/18/2024 1:15 PM EDT Office Visit Hematology/Oncology [facility] [address] [place] [phone] Elio Queen MD [address] [place] [address] 05/08/2024 11:00 AM EDT Laboratory Laboratory [facility] [address] [place] [address] [place]a, Lab [facility] 200 [facility] [place] [address] 05/08/2024 11:45 AM EDT Immunization/Injectio n Hematology/Oncology Treatment, [place] [address] [place], [place] [phone] Nurse, Med 4 200 [facility] [place] [address] 05/20/2024 2:15 PM EDT Office Visit Urology, [facility] 132 [facility] [place] [address] Isaías Novak MD [address] [place] [address] 07/01/2024 4:00 PM EDT Office Visit Family [facility] [address] [place] [address] Dru Fritz MD [address] [place] [address] Health Maintenance Due Date Last Done Comments DISCUSS TOBACCO CESSATION (REFER TO SMARTSET #1192) 1960 COVID-19 Vaccine (#1) 1965 Pneumococcal Vaccine: [...] Screening 03/06/2025 03/06/2024 CKD PHOS USE SMARTSET 19676 04/01/2025 07/0 11/2023, 03/11/2024, 03/06/2024, Additional history exists CKD HGB USE SMARTSET 02817 04/02/202504/02, 04/01/2024, 03/11/2024, Additional history exists Albumin/Creatinine [...] this encounter Medical Devices Implanted Type Area Leather Lacer Device Identifier Shelf Expiration Date Model / Serial / Lot Stent Trnscarotid Enroute 7x40 - [id number] Implanted:Qty: 1 on 01/25/2021 by Zeinab Robert MD at [facility] Left: Carotid [facility] [id number] 05/31/2023 SR-0740-C S / / [id number] documented as of this encounter Procedures Procedure Name Priority Date/Time Associated Diagnosis Comments RADIOLOGY EXAM - CT (IMAGES ONLY, NO REPORT) Routine 03/24/2024 10:05 PM EDT documented in this encounter Results * RADIOLOGY EXAM - CT (IMAGES ONLY, NO REPORT) (03/24/2024 10:05 PM EDT) 03/24/2024 10:0 4 PM EDT Narrative Scheduling, Silent - 04/02/2024 10:57 AM EDT This is an imaging study not interpreted or resulted by a [employer] or [employer] contracted radiologist. Elio Queen MD RAD CT [...] patient or by statute hierarchy) Care Teams Tinware Lithograph Press Operator Relationship Specialty Start Date End Date Dru Fritz MD [address] [place] [address] PCP - General Family Medicine 01/24/21 documented as of this encounter
--- OUTSIDE RECORDS SUMMARY | 2024-04-09 18:24 | External Medical Summary | Summary of Care ---
Author Name Unknown Organization [facility] Address [address] [place] [address] Phone [phone] Care Team Providers Care Fiberglass Fabricator Name Role Phone Dru Fritz MD Primary Care Provider [phone] Encounter Details Date Type Department Care Team (Latest Contact Info) Description 02/23/2024 7:00 PM EDT - 02/23/2024 11:59 PM EDT Hospital Encounter Radiology Film File [address] [place] [address] Discharge Disposition: Home - Self Care Allergies Active Allergy Reactions Criticality Noted Date Comments Amoxicillin-Pot Clavulanate 05/17/20 22 Dizziness and confused documented as of this encounter (statuses as of 04/03/2024) Medications Medication Sig Dispensed Refills Start Date End Date Status [employer] ULTRA SYSTEM W/DEVICE KITIndications:DM type 2, [...] 04/07/2024 1:00 PM EDT Nutrition Services Nutrition, [facility] [address] [place] [address] Concha Kaur RDN [address] [place] [address] 04/11/2024 11:00 AM EDT Office Visit Family Practice [facility] [address] [address] Dru Fritz MD [address] [address] 04/16/2024 11:45 AM EDT Office Visit Urology, [facility] [address] [address] Isaías Novak MD [address] [place] [address] 04/18/2024 1:15 PM EDT Office [facility] [address] [place] [phone] Elio Queen MD [address] [place] [address] 05/08/2024 11:00 AM EDT Laboratory [facility] [address] [place] [phone] Park, Lab [facility] 200 [facility] [place] [address] 05/08/2024 11:45 AM EDT Immunization/Injectio n Hematology/Oncology Treatment, [place] 200 [facility], [place] [phone] Nurse, Med 200 [facility] [place] [address] 05/20/2024 2:15 PM EDT Office Visit Urology, [facility] 132 [facility] [place] [address] Isaías Novak MD [address] [place] [address] 07/01/2024 4:00 PM EDT Office Visit Family Practice [facility] 132 [facility] [place] [address] Dru Fritz MD 132 [place] [address] Health Maintenance Due Date Last Done Comments DISCUSS TOBACCO CESSATION (REFER TO SMARTSET #5708) 1959 COVID-19 Vaccine (#1) 1964 Pneumococcal Vaccine: [...] Screening 03/06/2025 03/06/2024 CKD PHOS USE SMARTSET 28557 04/01/2025 07/0 11/2023, 03/11/2024, 03/06/2024, Additional history exists CKD HGB USE SMARTSET 39957 04/02/202504/02, 04/01/2024, 03/11/2024, Additional history exists Albumin/Creatinine [...] this encounter Medical Devices Implanted Type Area Microfiche Duplicator Device Identifier Shelf Expiration Date Model / Serial / Lot Stent Trnscarotid Enroute 7x40 - [id number] Implanted:Qty: 1 on 01/25/2021 by Zeinab Robert MD at [facility] Left: [facility] [id number] 05/31/2023 SR-0740-C S / / [id number] documented as of this encounter Procedures Procedure Name Priority Date/Time Associated Diagnosis Comments RADIOLOGY EXAM - CT (IMAGES ONLY, NO REPORT) Routine 02/23/2024 7:00 PM EDT documented in this encounter Results * RADIOLOGY EXAM - CT (IMAGES ONLY, NO REPORT) (02/23/2024 7:00 PM EDT) 02/23/2024 7:00 PM EDT Narrative Scheduling, Silent - 04/02/2024 10:53 AM EDT This is an imaging study not interpreted or resulted by a [facility] or [employer] contracted radiologist. Elio Queen MD RAD CT [...] patient or by statute hierarchy) Care Teams Fiberglass Fabricator Relationship Specialty Start Date End Date Dru Frizt MD [address] [address] PCP - General Family Medicine 01/24/21 documented as of this encounter
--- OUTSIDE RECORDS SUMMARY | 2024-04-09 18:24 | External Medical Summary | Summary of Care ---
Author Name Unknown Organization [facility] Address [address] [place] [address] Phone [phone] Care Team Providers Care Orthodontic Assistant Name Role Phone Dru Fritz MD Primary Care Provider [phone] Encounter Details Date Type Department Care Team (Latest Contact Info) Description 02/18/2024 5:05 PM EDT - 02/18/2024 5:09 PM EDT Hospital Encounter Radiology Film File [address] [place] [address] Discharge Disposition: Home - Self Care Allergies Active Allergy Reactions Criticality Noted Date Comments Amoxicillin-Pot Clavulanate 05/17/20 22 Dizziness and confused documented as of this encounter (statuses as of 04/03/2024) Medications Medication Sig Dispensed Refills Start Date End Date Status [employer] ULTRA SYSTEM W/DEVICE KITIndications:DM type 2, goal [...] 04/07/2024 1:00 PM EDT Nutrition Services Nutrition, [facility] [address] [place] [address] Concha Kaur RDN [address] [place] [address] 04/11/2024 11:00 AM EDT Office Visit Family Practice [facility] [address] [address] Dru Fritz MD [address] [place] [address] 04/16/2024 11:45 AM EDT Office Visit Urology, [facility] [address] [address] Isaías Novak MD [address] [place] [address] 04/18/2024 1:15 PM EDT Office Visit Hematology/Oncology [facility] [address] [place] [phone] Elio Queen MD [address] [place] [address] 05/08/2024 11:00 AM EDT Laboratory Laboratory [facility] [address] [place] [phone] Park, Lab [facility] 200 [facility] [place] [address] 05/08/2024 11:45 AM EDT Immunization/Injectio n Hematology/Oncology Treatment, [place] 200 [facility], [place] [phone] Nurse, Med 200 [facility] [place] [address] 05/20/2024 2:15 PM EDT Office Visit Urology, [facility] 132 [facility] [address] Isaías Novak MD [address] [place] [address] 07/01/2024 4:00 PM EDT Office Visit Family Practice [facility] 132 [facility] [place] [address] Dru Fritz MD 132 [place] [address] Health Maintenance Due Date Last Done Comments DISCUSS TOBACCO CESSATION (REFER TO SMARTSET #7059) 1959 COVID-19 Vaccine (#1) 1964 Pneumococcal Vaccine: [...] Screening 03/06/2025 03/06/2024 CKD PHOS USE SMARTSET 04053 04/01/2025 07/0 11/2023, 03/11/2024, 03/06/2024, Additional history exists CKD HGB USE SMARTSET 93843 04/02/202504/02, 04/01/2024, 03/11/2024, Additional history exists Albumin/Creatinine [...] this encounter Medical Devices Implanted Type Area Tilt Tray Driver Device Identifier Shelf Expiration Date Model / Serial / Lot Stent Trnscarotid Enroute 7x40 - [id number] Implanted:Qty: 1 on 01/25/2021 by Zeinab Robert MD at [facility] Left: [facility] [id number] 05/31/2023 SR-0740-C S / / [id number] documented as of this encounter Procedures Procedure Name Priority Date/Time Associated Diagnosis Comments RADIOLOGY EXAM - FLUOROSCOPY (IMAGES ONLY, NO REPORT) Routine 02/18/2024 5:05 PM EDT documented in this encounter Results * RADIOLOGY EXAM - FLUOROSCOPY (IMAGES ONLY, NO REPORT) (02/18/2024 5:05 PM EDT) 02/18/2024 5:05 PM EDT Narrative Scheduling, Silent - 04/02/2024 10:52 AM EDT This is an imaging study not interpreted or resulted by a [facility] or [employer] contracted radiologist. Elio Queen MD RAD FLUOROSCOPY [...] patient or by statute hierarchy) Care Teams Orthodontic Assistant Relationship Specialty Start Date End Date Dru Fritz MD [address] [address] PCP - General Family Medicine 01/24/21 documented as of this encounter
--- OUTSIDE RECORDS SUMMARY | 2024-04-09 18:24 | External Medical Summary | Summary of Care ---
Author Name Unknown Organization [facility] Address [address] [place] [address] Phone [phone] Care Team Providers Care Control Specialist Name Role Phone Dru Fritz MD Primary Care Provider [phone] Encounter Details Date Type Department Care Team (Latest Contact Info) Description 02/17/2024 9:45 AM EDT - 02/17/2024 2:09 PM EDT Hospital Encounter Radiology Film File [address] [place] [address] Discharge Disposition: Home - Self Care Allergies Active Allergy Reactions Criticality Noted Date Comments Amoxicillin-Pot Clavulanate 05/17/20 22 Dizziness and confused documented as of this encounter (statuses as of 04/03/2024) Medications Medication Sig Dispensed Refills Start Date End Date Status [employer] ULTRA SYSTEM W/DEVICE KITIndications:DM type 2, goal [...] 04/07/2024 1:00 PM EDT Nutrition Services Nutrition, [facility] [address] [place] [address] Concha Kaur RDN [address] [address] 04/11/2024 11:00 AM EDT Office Visit Family Practice [facility] [address] [address] Dru Fritz MD [address] [place] [address] 04/16/2024 11:45 AM EDT Office Visit Urology, [facility] [address] [address] Isaías Novak MD [address] [place] [address] 04/18/2024 1:15 PM EDT Office Visit Hematology/Oncology [facility] [address] [place] [phone] Elio Queen MD [address] [place] [address] 05/08/2024 11:00 AM EDT Laboratory Laboratory [facility] [address] [place] [phone] Park, Lab [facility] [place] [address] 05/08/2024 11:45 AM EDT Immunization/Injectio n Hematology/Oncology Treatment, [place] 200 [facility], [place] [phone] Nurse, Med [facility] [place] [address] 05/20/2024 2:15 PM EDT Office Visit Urology, [facility] 132 [facility] [place] [address] Isaías Novak MD [address] [place] [address] 07/01/2024 4:00 PM EDT Office Visit Family Practice [facility] 132 [facility] [place] [address] Dru Fritz MD 132 [place] [address] Health Maintenance Due Date Last Done Comments DISCUSS TOBACCO CESSATION (REFER TO SMARTSET #0508) 1959 COVID-19 Vaccine (#1) 1964 Pneumococcal Vaccine: [...] Screening 03/06/2025 03/06/2024 CKD PHOS USE SMARTSET 13302 04/01/2025 07/0 11/2023, 03/11/2024, 03/06/2024, Additional history exists CKD HGB USE SMARTSET 23589 04/02/202504/02, 04/01/2024, 03/11/2024, Additional history exists Albumin/Creatinine [...] this encounter Medical Devices Implanted Type Area Tobacco Blender Device Identifier Shelf Expiration Date Model / Serial / Lot Stent Trnscarotid Enroute 7x40 - [id number] Implanted:Qty: 1 on 01/25/2021 by Zeinab Robert MD at [facility] Left: [facility] [id number] 05/31/2023 SR-0740-C S / / [id number] documented as of this encounter Procedures Procedure Name Priority Date/Time Associated Diagnosis Comments RADIOLOGY EXAM - US (IMAGES ONLY, NO REPORT) Routine 02/17/2024 9:45 AM EDT documented in this encounter Results * RADIOLOGY EXAM - US (IMAGES ONLY, NO REPORT) (02/17/2024 9:45 AM EDT) 02/17/2024 9:38 AM EDT Narrative Scheduling, Silent - 04/02/2024 11:06 AM EDT This is an imaging study not interpreted or resulted by a [facility] or [employer] contracted radiologist. Elio Queen MD RAD ULTRASOUND [...] patient or by statute hierarchy) Care Teams Control Specialist Relationship Specialty Start Date End Date Dru Fritz MD [address] [address] PCP - General Family Medicine 01/24/21 documented as of this encounter
--- OUTSIDE RECORDS SUMMARY | 2024-04-09 18:24 | External Medical Summary | Summary of Care ---
Author Name Unknown Organization [facility] Address [address] [place] [address] Phone [phone] Care Team Providers Care Scale Reclamation Tender Name Role Phone Dru Fritz MD Primary Care Provider [phone] Encounter Details Date Type Department Care Team (Latest Contact Info) Description 02/18/2024 4:10 AM EDT - 02/18/2024 5:04 PM EDT Hospital Encounter Radiology Film File [address] [place], [place] [id number] Discharge Disposition: Home - Self Care Allergies Active Allergy Reactions Criticality Noted Date Comments Amoxicillin-Pot Clavulanate 05/17/20 22 Dizziness and confused documented as of this encounter (statuses as of 04/03/2024) Medications Medication Sig Dispensed Refills Start Date End Date Status [employer] ULTRA SYSTEM W/DEVICE KITIndications:DM type 2, goal [...] 04/07/2024 1:00 PM EDT Nutrition Services Nutrition, [facility] [address] [place] [address] Concha Kaur RDN [address] [place] [address] 04/11/2024 11:00 AM EDT Office Visit Family Practice [facility] [address] [address] Dru Fritz MD [address] [place] [address] 04/16/2024 11:45 AM EDT Office Visit Urology, [facility] [address] [address] Isaías Novak MD [address] [place] [address] 04/18/2024 1:15 PM EDT Office Visit Hematology/Oncology [facility] [address] [place] [phone] Elio Queen MD [address] [place] [address] 05/08/2024 11:00 AM EDT Laboratory Laboratory [facility] [address] [place] [phone] Park, Lab [facility] 200 [facility] [place] [address] 05/08/2024 11:45 AM EDT Immunization/Injectio n Hematology/Oncology Treatment, [place] 200 [facility], [place] [phone] Nurse, Med 200 [facility] [place] [address] 05/20/2024 2:15 PM EDT Office Visit Urology, [facility] 132 [facility] [address] Isaías Novak MD [address] [place] [address] 07/01/2024 4:00 PM EDT Office Visit Family Practice [facility] 132 [facility] [place] [address] Dru Fritz MD 132 [place] [address] Health Maintenance Due Date Last Done Comments DISCUSS TOBACCO CESSATION (REFER TO SMARTSET #9489) 1960 COVID-19 Vaccine (#1) 1964 Pneumococcal Vaccine: [...] Screening 03/06/2025 03/06/2024 CKD PHOS USE SMARTSET 26616 04/01/2025 07/0 11/2023, 03/11/2024, 03/06/2024, Additional history exists CKD HGB USE SMARTSET 32066 04/02/202504/02, 04/01/2024, 03/11/2024, Additional history exists Albumin/Creatinine [...] this encounter Medical Devices Implanted Type Area Line Tester Device Identifier Shelf Expiration Date Model / Serial / Lot Stent Trnscarotid Enroute 7x40 - [id number] Implanted:Qty: 1 on 01/25/2021 by Zeinab Robert MD at [facility] Left: [facility] [id number] 05/31/2023 SR-0740-C S / / [id number] documented as of this encounter Procedures Procedure Name Priority Date/Time Associated Diagnosis Comments RADIOLOGY EXAM - US (IMAGES ONLY, NO REPORT) Routine 02/18/2024 4:10 AM EDT documented in this encounter Results * RADIOLOGY EXAM - US (IMAGES ONLY, NO REPORT) (02/18/2024 4:10 AM EDT) 02/18/2024 4:06 AM EDT Narrative Scheduling, Silent - 04/02/2024 11:02 AM EDT This is an imaging study not interpreted or resulted by a [facility] or [email or web address] contracted radiologist. Elio Queen MD RAD ULTRASOUND [...] patient or by statute hierarchy) Care Teams Scale Reclamation Tender Relationship Specialty Start Date End Date Dru Fritz MD [address] [address] PCP - General Family Medicine 01/24/21 documented as of this encounter
--- OUTSIDE RECORDS SUMMARY | 2024-04-09 18:24 | External Medical Summary | Summary of Care ---
Author Name Unknown Organization [facility] Address [address] [place] [address] Phone [phone] Care Team Providers Care Surgery Manager Name Role Phone Dru Fritz MD Primary Care Provider [phone] [phone] Encounter Details Date Type Department Care Team (Latest Contact Info) Description 02/23/2024 5:20 PM EDT - 02/23/2024 6:59 PM EDT Hospital Encounter Radiology Film File [address] [place] [address] Discharge Disposition: Home - Self Care Allergies Active Allergy Reactions Criticality Noted Date Comments Amoxicillin-Pot Clavulanate 05/17/20 22 Dizziness and confused documented as of this encounter (statuses as of 04/03/2024) Medications Medication Sig Dispensed Refills Start Date End Date Status [facility] ULTRA SYSTEM W/DEVICE KITIndications:DM type 2, goal [...] 04/07/2024 1:00 PM EDT Nutrition Services Nutrition, [facility] [address] [place] [address] Concha Kaur RDN [address] [address] 04/11/2024 11:00 AM EDT Office Visit Family Practice [facility] [address] [address] Dru Fritz MD [address] [place] [address] 04/16/2024 11:45 AM EDT Office Visit Urology, [facility] [address] [address] Isaías Novak MD [address] [place] [address] 04/18/2024 1:15 PM EDT Office Visit Hematology/Oncology [facility] [address] [place] [phone] Elio Queen MD [address] [place] [address] 05/08/2024 11:00 AM EDT Laboratory Laboratory [facility] [address] [place] [phone] Park, Lab [facility] 200 [facility] [place] [address] 05/08/2024 11:45 AM EDT Immunization/Injectio n Hematology/Oncology Treatment, [place] 200 [facility], [place] [phone] Nurse, Med 200 [facility] [place] [address] 05/20/2024 2:15 PM EDT Office Visit Urology, [facility] 132 [place] [address] Isaías Novak MD [address] [place] [address] 07/01/2024 4:00 PM EDT Office Visit Family Practice [facility] 132 [facility] [place] [address] Dru Fritz MD 132 [place] [address] Health Maintenance Due Date Last Done Comments DISCUSS TOBACCO CESSATION (REFER TO SMARTSET #5822) 1960 COVID-19 Vaccine (#1) 1964 Pneumococcal Vaccine: [...] Screening 03/06/2025 03/06/2024 CKD PHOS USE SMARTSET 00880 04/01/2025 07/0 11/2023, 03/11/2024, 03/06/2024, Additional history exists CKD HGB USE SMARTSET 11388 04/02/202504/02, 04/01/2024, 03/11/2024, Additional history exists Albumin/Creatinine [...] this encounter Medical Devices Implanted Type Area Design Maker Device Identifier Shelf Expiration Date Model / Serial / Lot Stent Trnscarotid Enroute 7x40 - [id number] Implanted:Qty: 1 on 01/25/2021 by Zeinab Robert MD at [facility] Left: [facility] [id number] 05/31/2023 SR-0740-C S / / [id number] documented as of this encounter Procedures Procedure Name Priority Date/Time Associated Diagnosis Comments RADIOLOGY EXAM - US (IMAGES ONLY, NO REPORT) Routine 02/23/2024 5:20 PM EDT documented in this encounter Results * RADIOLOGY EXAM - US (IMAGES ONLY, NO REPORT) (02/23/2024 5:20 PM EDT) 02/23/2024 5:15 PM EDT Narrative Scheduling, Silent - 04/02/2024 11:05 AM EDT This is an imaging study not interpreted or resulted by a [facility] or [employer] contracted radiologist. Elio Queen MD RAD ULTRASOUND [...] patient or by statute hierarchy) Care Teams Surgery Manager Relationship Specialty Start Date End Date Dru Fritz MD [address] [address] PCP - General Family Medicine 01/24/21 documented as of this encounter
--- OUTSIDE RECORDS SUMMARY | 2024-04-09 18:25 | External Medical Summary | Summary of Care ---
Author Name Unknown Organization [facility] Address [address] [place] [address] Phone [phone] Care Team Providers Care Pay Station Attendant Name Role Phone Dru Fritz MD Primary Care Provider +1 [phone] Encounter Details Date Type Department Care Team (Late st Contact Info) Description 02/17/2024 Orders Only Hematology/Oncology Valentín Melara [place] 200 [facility] [place] [address] Elio Queen MD [address] [facility] [address] Allergies Active Allergy Reactions Criticality Noted Date Comments Amoxicillin-Pot Clavulanate 05/17/20 22 Dizziness and confused documented as of this encounter (statuses as of 04/02/2024) Medications Medication Sig Dispensed Refills Start Date End Date Status [employer] SYSTEM W/DEVICE KITIndications:DM type 2, goal A1c below 7 Use up to four times a day as directed 1 Kit 0 07/28/2014 Suspended Additional Information Aspirin 81 MG TBEC Take 1 Tablet by mouth in the morning. Suspended sildenafil (REVATIO) 20 MG Tablet Take 3 tablets by mouth 1 hour prior to sexual activity 30 Tab 5 03/27/2018 Suspended Additional Information Blood Glucose Monitoring Suppl (ONETOUCH VERIO) w/Device KIT Use up to 4 times a day E11.9 1 Kit 01/12/2020 Suspended Additional Information Acetaminophen 500 MG Oral TabletIndications: Takes twice daily. Take 1 Tablet by mouth every 6 hours as needed. Suspended Xgeva 120 MG/1.7ML Subcutaneous Solution (Denosumab) Inject 120 mg under the skin Every Month. Suspended Entresto 24-26 MG Oral Tablet (sacubitril-valsar abdullahi 24-26 mg per tab)Indications:Es sential hypertension with goal blood pressure less than 140/90 TAKE ONE TABLET BY MOUTH TWICE A DAY 180 Tablet 3 05/03/2023 4 Suspended Additional Information K-Phos 500 MG Oral Tablet (potassium phosphate)Indicati ons:Hypophosphatem ia TAKE ONE TABLET BY MOUTH TWICE A DAY 180 Tablet 1 07/17/2023 Suspended Additional Information Empagliflozin 25 MG Oral Tablet (Jardiance)Indicat ions:Type 2 diabetes mellitus with diabetic neuropathy, without long-term current use of insulin (HCC) TAKE ONE TABLET BY MOUTH DAILY IN THE MORNING 90 Tablet 3 08/15/2023 4 Suspended Additional Information Atorvastatin Calcium 80 MG Oral Tablet (Lipitor)Indicatio ns:History of CVA (cerebrovascular accident),Dyslipid emia TAKE ONE TABLET BY MOUTH EVERY DAY IN THE MORNING 90 Tablet 2 08/27/2023 4 Suspended Additional Information Ondansetron HCl 8 MG Oral Tablet (Zofran)Indication s:Prostate cancer metastatic to multiple sites (HCC) Take 1 Tablet by mouth every 8 hours as needed for Nausea. 30 Tablet 2 09/13/2023 Suspended Additional Information Prochlorperazine Maleate 10 MG Oral Tablet (Compazine)Indicat ions:Prostate cancer metastatic to multiple sites (HCC) Take 1 Tablet by mouth every 6 hours as needed for Nausea. 30 Tablet 2 09/13/2023 Suspended Additional Information linaGLIPtin 5 MG Oral Tablet (Tradjenta)Indicat ions:Type 2 diabetes mellitus with diabetic neuropathy, without long-term current use of insulin (HCC) TAKE ONE TABLET BY MOUTH EVERY MORNING 90 Tablet 1 12/10/2023 5 Suspended Additional Information PARoxetine HCl 10 MG Oral Tablet (Paxil) Take 1 Tablet by mouth in the morning. 90 Tablet 3 12/26/2023 Suspended Additional Information Patient not taking.Reported on 04/01/2024 Clopidogrel Bisulfate 75 MG Oral Tablet (pLAVix) TAKE ONE TABLET BY MOUTH IN THE MORNING 30 Tablet 5 01/06/2024 5 Suspended Additional Information Patient not taking.Reported on 03/06/2024 traMADol HCl 50 MG Oral Tablet (Ultram)Indication s:Malignant neoplasm metastatic to bone (HCC) Take 2 Tablets by mouth 3 times a day as needed for moderate pain. 180 Tablet 02/12/2024 Suspended Additional Information documented as of this encounter (statuses as of 04/02/2024) Active Problems Problem Noted Date Diagnosed Date Gross hematuria 04/01/2024 Thrombocytopenia 04/01/2024 Blood loss [...] as of this encounter (statuses as of 04/02/2024) Resolved Problems Problem Noted Date Diagnosed Date [...] as of this encounter (statuses as of 04/02/2024) Immunizations No known immunizationsdocumented as of this [...] No 03/06/2024 Does the household have a [facility] source of income? (Household - for ages [...] Care Team (Late st Contact Info) Description 04/16/2024 11:45 AM EDT Office Visit Urology, [facility] 132 [facility] [place] [address] Isaías Novak MD [address] [place] [address] 04/18/2024 1:15 PM EDT Office Visit Hematology/Oncology [facility] 200 [facility] [phone] Elio Queen MD 200 [facility] [place] [address] 05/08/2024 11:00 AM EDT Laboratory Laboratory [facility] 200 [facility] [place] [phone] [place], Lab [address] [place] [address] 05/08/2024 11:45 AM EDT Immunization[facility]io n [facility] [phone] Nurse, Med 200 [facility] [place] [address] 05/20/2024 2:15 PM EDT Office Visit Urology [facility] 132 [facility] [place] [address] Isaías Novak MD [address] [place] [address] [phone] 07/01/2024 4:00 PM EDT Office Visit Family Practice [facility] [address] [place] [address] Dru Fritz MD [address] [place] [address] Health Maintenance Due Date Last Done Comments DISCUSS TOBACCO CESSATION (REFER TO SMARTSET #6477) 1960 COVID-19 Vaccine (#1) 1965 Pneumococcal Vaccine: [...] exists Influenza Vaccine (FLU shot) (#1) 2024 HbA1c 06/15/2024 12/14/2023, 12/30, 05/15/2022, Additional history exists GFR 10/03/2024 04/02/2024, 07/0 11/2023, 03/11/2024, Additional history exists Depression Screening 03/06/2025 03/06/2024 CKD PHOS USE SMARTSET 45380 04/01/2025 07/0 11/2023, 03/11/2024, 03/06/2024, Additional history exists CKD HGB USE SMARTSET 70440 04/02/202504/02, 04/01/2024, 03/11/2024, Additional history exists HPV (Gardasil) Vaccine Aged Out No lo nger eligible based on patient's age to complete this topic Hepatitis B Vaccine Aged Out No longe r eligible based on patient's age to complete this topic MENINGOCOCCAL (MENACTRA/MENVEO) Aged Out No longer eligible based on patient's age to complete this topic documented as of this encounter Medical Devices Implanted Type Area Cocktail Waitress Device Identifier Shelf Expiration Date Model / Serial / Lot Stent Trnscarotid Enroute 7x40 - [id number] Implanted:Qty: 1 on 01/25/2021 by Zeinab Robert MD at [facility] Left: Carotid [facility] [id number] 05/31/2023 SR-0740-C S / / [id number] documented as of this encounter Procedures Procedure [...] interpreted or resulted by a [facility] or [employer] contracted radiologist. Elio Queen MD RAD CT documented in this encounter Advance Directives * Limited Code (Latest Code Status on File) Date Activated Date Inactivated Comments 04/01/2024 8:39 PM This order refl ects the patients wishes and were consensually agreed [...] patient or by statute hierarchy) Care Teams Pay Station Attendant Relationship Specialty Start Date End Date Dru Fritz MD [address] [place] [address] PCP - General Family Medicine 01/24/21 documented as of this encounter
--- OUTSIDE RECORDS SUMMARY | 2024-04-09 18:25 | External Medical Summary | Summary of Care ---
Author Name Unknown Organization [facility] Address [address] [place] [address] Phone [phone] Care Team Providers Care Roadway Technician Name Role Phone Dru Fritz MD Primary Care Provider [phone] [phone] Encounter Details Date Type Department Care Team (Late st Contact Info) Description 02/23/2024 Orders Only Hematology/Oncology Valentín Melara [place] 200 [facility] [place] [address] Elio Queen MD [address] [facility] [address] Allergies Active Allergy Reactions Criticality Noted Date Comments Amoxicillin-Pot Clavulanate 05/17/20 22 Dizziness and confused documented as of this encounter (statuses as of 04/02/2024) Medications Medication Sig Dispensed Refills Start Date End Date Status [employer] SYSTEM W/DEVICE KITIndications:DM type 2, goal A1c [...] No 03/06/2024 Does the household have a [facility] source of income? (Household - for ages [...] 04/16/2024 11:45 AM EDT Office Visit Urology, [facility] 132 [facility] [place] [address] Isaías Novak MD [address] [place] [address] [address] 04/18/2024 1:15 PM EDT Office Visit Hematology/Oncology [facility] 200 [place] [phone] Elio Queen MD 200 [place] [address] 05/08/2024 11:00 AM EDT Laboratory Laboratory [facility] 200 [facility] [place] [phone] [place], Lab [address] [place] [address] 05/08/2024 11:45 AM EDT Immunization[facility]io n [facility] [phone] Nurse, Med 200 [facility] [place] [address] 05/20/2024 2:15 PM EDT Office Visit Urology [facility] 132 [facility] [place] [address] Isaías Novak MD [address] [place] [address] [phone] 07/01/2024 4:00 PM EDT Office Visit Family Practice [facility] [address] [address] Dru Fritz MD [address] [place] [address] Health Maintenance Due Date Last Done Comments DISCUSS TOBACCO CESSATION (REFER TO SMARTSET #0520) 1960 COVID-19 Vaccine (#1) 1965 Pneumococcal Vaccine: [...] Screening 03/06/2025 03/06/2024 CKD PHOS USE SMARTSET 55634 04/01/2025 07/0 11/2023, 03/11/2024, 03/06/2024, Additional history exists CKD HGB USE SMARTSET 92331 04/02/202504/02, 04/01/2024, 03/11/2024, Additional history exists HPV [...] this encounter Medical Devices Implanted Type Area Lithographic Camera Operator Device Identifier Shelf Expiration Date Model / Serial / Lot Stent Trnscarotid Enroute 7x40 - [id number] Implanted:Qty: 1 on 01/25/2021 by Zeinab Robert MD at [facility] Left: [facility] [id number] 05/31/2023 SR-0740-C S / / [id number] documented as of this encounter Procedures Procedure [...] interpreted or resulted by a [facility] or [employer] contracted radiologist. Elio Queen MD RAD ULTRASOUND [...] patient or by statute hierarchy) Care Teams Roadway Technician Relationship Specialty Start Date End Date Dru Fritz MD [address] [place] [address] PCP - General Family Medicine 01/24/21 documented as of this encounter
--- OUTSIDE RECORDS SUMMARY | 2024-04-09 18:25 | External Medical Summary | Summary of Care ---
Author Name Unknown Organization [facility] Address [address] [place] [address] Phone [phone] Care Team Providers Care Radiocommunications Technician Name Role Phone Dru Fritz MD Primary Care Provider [phone] [phone] Encounter Details Date Type Department Care Team (Late st Contact Info) Description 02/17/2024 Orders Only Hematology/Oncology Valentín Melara [place] 200 [facility] [place] [address] Elio Queen MD [address] [facility] [address] Allergies Active Allergy Reactions Criticality Noted Date Comments Amoxicillin-Pot Clavulanate 05/17/20 22 Dizziness and confused documented as of this encounter (statuses as of 04/02/2024) Medications Medication Sig Dispensed Refills Start Date End Date Status [employer] SYSTEM W/DEVICE KITIndications:DM type 2, goal A1c [...] No 03/06/2024 Does the household have a [facility] source of income? (Household - for ages [...] 04/16/2024 11:45 AM EDT Office Visit Urology, [facility] 132 [facility] [place] [address] Isaías Novak MD [address] [place] [address] [address] 04/18/2024 1:15 PM EDT Office Visit Hematology/Oncology [facility] 200 [place] [phone] Elio Queen MD 200 [place] [address] 05/08/2024 11:00 AM EDT Laboratory Laboratory [facility] 200 [facility] [place] [phone] [place], Lab [address] [place] [address] 05/08/2024 11:45 AM EDT Immunization[facility]io n [facility] 200 [facility] [phone] Nurse, Med 200 [facility] [place] [address] 05/20/2024 2:15 PM EDT Office Visit Urology [facility] 132 [facility] [place] [address] Isaías Novak MD [address] [place] [phone] 07/01/2024 4:00 PM EDT Office Visit Family Practice [facility] [address] [address] Dru Fritz MD [address] [place] [address] Health Maintenance Due Date Last Done Comments DISCUSS TOBACCO CESSATION (REFER TO SMARTSET #9003) 1960 COVID-19 Vaccine (#1) 1964 Pneumococcal Vaccine: [...] Screening 03/06/2025 03/06/2024 CKD PHOS USE SMARTSET 55698 04/01/2025 07/0 11/2023, 03/11/2024, 03/06/2024, Additional history exists CKD HGB USE SMARTSET 27953 04/02/202504/02, 04/01/2024, 03/11/2024, Additional history exists HPV [...] this encounter Medical Devices Implanted Type Area Picture Booker Device Identifier Shelf Expiration Date Model / Serial / Lot Stent Trnscarotid Enroute 7x40 - [id number] Implanted:Qty: 1 on 01/25/2021 by Zeinab Robert MD at [facility] Left: [facility] [id number] 05/31/2023 SR-0740-C S / / [id number] documented as of this encounter Procedures Procedure [...] interpreted or resulted by a [facility] or [employer] contracted radiologist. Elio Queen MD RAD ULTRASOUND [...] patient or by statute hierarchy) Care Teams Radiocommunications Technician Relationship Specialty Start Date End Date Dru Fritz MD [address] [place] [address] PCP - General Family Medicine 01/24/21 documented as of this encounter
--- OUTSIDE RECORDS SUMMARY | 2024-04-09 18:25 | External Medical Summary | Summary of Care ---
Author Name Unknown Organization [facility] Address [address] [place] [address] Phone [phone] Care Team Providers Care Heel Painter Name Role Phone Dru Fritz MD Primary Care Provider [phone] [phone] Encounter Details Date Type Department Care Team (Late st Contact Info) Description 03/24/2024 Orders Only Hematology/Oncology Valentín Melara [place] 200 [facility] [place] [address] Elio Queen MD 200 [facility] [place] [facility] [address] Allergies Active Allergy Reactions Criticality Noted Date Comments Amoxicillin-Pot Clavulanate 05/17/20 22 Dizziness and confused documented as of this encounter (statuses as of 04/02/2024) Medications Medication Sig Dispensed Refills Start Date End Date Status [employer] SYSTEM W/DEVICE KITIndications:DM type 2, goal A1c [...] pain. 180 Tablet 02/12/2024 Suspended Additional Information Ergocalciferol 1.25 MG (36331 UT) Oral Capsule (Vitamin D2(Drisdol)) Take 1 Capsule by mouth every 30 days. Suspended Magnesium 80 MG Oral Tablet Take by mouth. Suspended Calcium Carbonate Antacid 500 MG Oral Tablet Chewable (Tums) Take 1 Tablet by mouth in the morning. Suspended B-12 1000-400 MCG [address]lingual Tablet Sub[address] Place under the tongue. Suspended FeroSul 325 (65 Fe) MG Oral Tablet TAKE ONE TABLET BY MOUTH DAILY IN THE MORNING 02/22/2024 Suspended Magnesium Cl-Calcium Carbonate 71.5-119 MG Oral Tablet Delayed Release 64 mg. 02/22/2024 Suspended Metoprolol Tartrate 25 MG Oral Tablet (Lopressor) 0.5 Tablets. 02/22/2024 Suspended Calcitriol 0.25 MCG Oral Capsule (Rocaltrol) DAILY IN THE MORNING 02/22/2024 Suspended Tamsulosin HCl 0.4 MG Oral Capsule (Flomax) 1 Capsule. 02/22/2024 Suspended Morphine Sulfate ER 15 MG Oral Tablet Extended Release (MS Contin)Indications :Cancer associated pain Take 1 Tablet by mouth in the morning and 1 Tablet before bedtime. 60 Tablet 03/07/2024 Suspended Additional Information busPIRone HCl 5 MG Oral Tablet (Buspar) Take one tablet by mouth three times daily 30 Tablet 03/10/2024 Suspended Additional Information documented as of this [...] 04/16/2024 11:45 AM EDT Office Visit Urology, [facility] [place] [address] Isaías Novak MD [address] [place] [address] [address] 04/18/2024 1:15 PM EDT Office Visit Hematology/Oncology [facility] [place] [address] [place] [phone] Elio Queen MD [address] [place] [address] 05/08/2024 11:00 AM EDT Laboratory Laboratory [facility] [place] [address] [place] [phone] [place], [place] [facility] [place] [place] 200 [facility] [place] [address] 05/08/2024 11:45 AM EDT Immunization/Injectio n Hematology/Oncology Treatment, [place] [address] [place], [place] [phone] Nurse, Med 200 [facility] [place] [address] 05/20/2024 2:15 PM EDT Office Visit Urology, [facility] 132 [facility] [place] [address] Isaías Novak MD [address] [place] [address] 07/01/2024 4:00 PM EDT Office Visit Family Practice [facility] 132 [facility] [place] [address] Dru Fritz MD 132 [facility] [place] [address] Health Maintenance Due Date Last Done Comments DISCUSS TOBACCO CESSATION (REFER TO SMARTSET #4565) 1960 COVID-19 Vaccine (#1) 1965 Pneumococcal Vaccine: [...] 05/15/2022, Additional history exists GFR 10/03/2024 04/02/2024, 0711/2023, 03/11/2024, Additional history exists Depression Screening 03/06/2025 03/06/2024 CKD PHOS USE SMARTSET 58991 04/01/2025 07/0 11/2023, 03/11/2024, 03/06/2024, Additional history exists CKD HGB USE SMARTSET 55672 04/02/202504/02, 04/01/2024, 03/11/2024, Additional history exists HPV [...] encounter Medical Devices Implanted Type Area Manager Parking Device Identifier Shelf Expiration Date Model / Serial / Lot Stent Trnscarotid Enroute 7x40 - [id number] Implanted:Qty: 1 on 01/25/2021 by Zeinab Robert MD at [facility] Left: [facility] [id number] 05/31/2023 SR-0740-C S / / [id number] documented as of this encounter Procedures Procedure [...] or [facility] contracted radiologist. Elio Queen MD RAD CT [...] patient or by statute hierarchy) Care Teams Heel Painter Relationship Specialty Start Date End Date Dru Fritz MD 132 [facility] [place] [address] PCP - General Family Medicine 01/24/21 documented as of this encounter
--- OUTSIDE RECORDS SUMMARY | 2024-04-09 18:25 | External Medical Summary | Summary of Care ---
Author Name Unknown Organization [facility] Address [address] [place] [address] Phone [phone] Care Team Providers Care Division Superintendent Name Role Phone Dru Fritz MD Primary Care Provider [phone] Encounter Details Date Type Department Care Team (Late st Contact Info) Description 02/17/2024 Orders Only Hematology/Oncology Valentín Melara [place] 200 [facility] [place] [address] Elio Queen MD [address] [facility] [address] Allergies Active Allergy Reactions Criticality Noted Date Comments Amoxicillin-Pot Clavulanate 05/17/20 22 Dizziness and confused documented as of this encounter (statuses as of 04/02/2024) Medications Medication Sig Dispensed Refills Start Date End Date Status [employer] SYSTEM W/DEVICE KITIndications:DM type 2, goal A1c [...] No 03/06/2024 Does the household have a [facility] source of income? (Household - for ages [...] 04/16/2024 11:45 AM EDT Office Visit Urology, [facility] 132 [facility] [place] [address] Isaías Novak MD [address] [place] [address] 04/18/2024 1:15 PM EDT Office Visit Hematology/Oncology [facility] 200 [place] [phone] Elio Queen MD 200 [place] [address] 05/08/2024 11:00 AM EDT Laboratory Laboratory [facility] 200 [facility] [place] [phone] [place], Lab [address] [place] [address] 05/08/2024 11:45 AM EDT Immunization[facility]jectio n [facility] [phone] Nurse, Med 200 [facility] [place] [address] 05/20/2024 2:15 PM EDT Office Visit Urology [facility] 132 [facility] [place] [address] Isaías Novak MD [address] [place] [phone] 07/01/2024 4:00 PM EDT Office Visit Family Practice [facility] [address] [address] Dru Fritz MD [address] [place] [address] Health Maintenance Due Date Last Done Comments DISCUSS TOBACCO CESSATION (REFER TO SMARTSET #8505) 1960 COVID-19 Vaccine (#1) 1965 Pneumococcal Vaccine: [...] Screening 03/06/2025 03/06/2024 CKD PHOS USE SMARTSET 59229 04/01/2025 07/0 11/2023, 03/11/2024, 03/06/2024, Additional history exists CKD HGB USE SMARTSET 20819 04/02/202504/02, 04/01/2024, 03/11/2024, Additional history exists HPV [...] this encounter Medical Devices Implanted Type Area Aircraft Design Engineer Device Identifier Shelf Expiration Date Model / Serial / Lot Stent Trnscarotid Enroute 7x40 - [id number] Implanted:Qty: 1 on 01/25/2021 by Zeinab Robert MD at [facility] Left: Carotid [facility] [id number] 05/31/2023 SR-0740-C S / / [id number] documented as of this encounter Procedures Procedure [...] interpreted or resulted by a [facility] or [employer] contracted radiologist. Elio Queen MD RAD CT [...] patient or by statute hierarchy) Care Teams Division Superintendent Relationship Specialty Start Date End Date Dru Fritz MD [address] [place] [address] PCP - General Family Medicine 01/24/21 documented as of this encounter
--- OUTSIDE RECORDS SUMMARY | 2024-04-09 18:25 | External Medical Summary | Summary of Care ---
Author Name Unknown Organization [facility] Address [address] [place] [address] Phone [phone] Care Team Providers Care Landing Scaler Name Role Phone Dru Fritz MD Primary Care Provider [phone] Encounter Details Date Type Department Care Team (Late st Contact Info) Description 02/15/2024 Orders Only Hematology/Oncology Valentín Melara [place] 200 [facility] [place] [address] Elio Queen MD [address] [facility] [address] Allergies Active Allergy Reactions Criticality Noted Date Comments Amoxicillin-Pot Clavulanate 05/17/20 22 Dizziness and confused documented as of this encounter (statuses as of 04/02/2024) Medications Medication Sig Dispensed Refills Start Date End Date Status SciAps SYSTEM W/DEVICE KITIndications:DM type 2, goal A1c [...] No 03/06/2024 Does the household have a [facility] source of income? (Household - for [...] 04/16/2024 11:45 AM EDT Office Visit Urology, [facility] [address] [facility] [place] [address] Isaías Novak MD [address] [place] [address] 04/18/2024 1:15 PM EDT Office Visit Hematology/Oncology [facility] 200 [facility] [place] [phone] Elio Queen MD 200 [facility] [place] [address] 05/08/2024 11:00 AM EDT Laboratory Laboratory [facility] 200 [facility] [place] [phone] [place], Lab [address] [place] [address] 05/08/2024 11:45 AM EDT Immunization[facility]io n [facility] [phone] Nurse, Med 200 [facility] [place] [address] 05/20/2024 2:15 PM EDT Office Visit Urology [facility] 132 [facility] [place] [address] Isaías Novak MD [address] [place] [id number] 07/01/2024 4:00 PM EDT Office Visit Family Practice [facility] [address] [place] [place] [address] Dru Fritz MD [address] [place] [address] Health Maintenance Due Date Last Done Comments DISCUSS TOBACCO CESSATION (REFER TO SMARTSET #4457) 1960 COVID-19 Vaccine (#1) 1965 Pneumococcal Vaccine: [...] Screening 03/06/2025 03/06/2024 CKD PHOS USE SMARTSET 61891 04/01/2025 07/0 11/2023, 03/11/2024, 03/06/2024, Additional history exists CKD HGB USE SMARTSET 65082 04/02/202504/02, 04/01/2024, 03/11/2024, Additional history exists HPV [...] this encounter Medical Devices Implanted Type Area Getter Welder Device Identifier Shelf Expiration Date Model / Serial / Lot Stent Trnscarotid Enroute 7x40 - [id number] Implanted:Qty: 1 on 01/25/2021 by Zeinab Robert MD at [facility] Left: [facility] [id number] 05/31/2023 SR-0740-C S / / [id number] documented as of this encounter Procedures Procedure [...] interpreted or resulted by a [facility] or [facility] contracted radiologist. Elio Queen MD RADIOLOGY (RAD [...] patient or by statute hierarchy) Care Teams Landing Scaler Relationship Specialty Start Date End Date Dru Fritz MD [address] [place] [address] PCP - General Family Medicine 01/24/21 documented as of this encounter
--- OUTSIDE RECORDS SUMMARY | 2024-04-09 18:25 | External Medical Summary | Summary of Care ---
Author Name Unknown Organization [facility] Address [address] [place] [address] Phone [phone] Care Team Providers Care Wind Energy Systems Installer Name Role Phone Dru Fritz MD Primary Care Provider [phone] Encounter Details Date Type Department Care Team (Late st Contact Info) Description 02/18/2024 Orders Only Hematology/Oncology Valentín Melara [place] 200 [facility] [place] [address] Elio Queen MD [address] [facility] [address] Allergies Active Allergy Reactions Criticality Noted Date Comments Amoxicillin-Pot Clavulanate 05/17/20 22 Dizziness and confused documented as of this encounter (statuses as of 04/02/2024) Medications Medication Sig Dispensed Refills Start Date End Date Status Cord Project SYSTEM W/DEVICE KITIndications:DM type 2, goal A1c [...] No 03/06/2024 [facility] the [facility] have [facility]? (Household - [...] 04/16/2024 11:45 AM EDT Office Visit Urology, [facility] 132 [facility] [place] [address] Isaías Novak MD [address] [place] [address] 04/18/2024 1:15 PM EDT Office Visit Hematology/Oncology [facility] 200 [facility] [place] [phone] Elio Queen MD 200 [facility] [place] [address] 05/08/2024 11:00 AM EDT Laboratory Laboratory [facility] 200 [facility] [place] [phone] [place], Lab [address] [place] [address] 05/08/2024 11:45 AM EDT Immunization[facility]jectio n [facility] [phone] Nurse, Med 200 [facility] [place] [address] 05/20/2024 2:15 PM EDT Office Visit Urology [facility] 132 [facility] [place] [address] Isaías Novak MD [address] [place] [id number] 07/01/2024 4:00 PM EDT Office Visit Family Practice [facility] [address] [place] [address] Dru Fritz MD [address] [place] [address] Health Maintenance Due Date Last Done Comments DISCUSS TOBACCO CESSATION (REFER TO SMARTSET #4801) 1960 COVID-19 Vaccine (#1) 1965 Pneumococcal Vaccine: [...] Screening 03/06/2025 03/06/2024 CKD PHOS USE SMARTSET 11520 04/01/2025 07/0 11/2023, 03/11/2024, 03/06/2024, Additional history exists CKD HGB USE SMARTSET 29405 04/02/202504/02, 04/01/2024, 03/11/2024, Additional history exists HPV [...] this encounter Medical Devices Implanted Type Area Customer Response Representative Device Identifier Shelf Expiration Date Model / Serial / Lot Stent Trnscarotid Enroute 7x40 - [id number] Implanted:Qty: 1 on 01/25/2021 by Zeinab Robert MD at [facility] Left: [facility] [id number] 05/31/2023 SR-0740-C S / / [id number] documented as of this encounter Procedures Procedure [...] interpreted or resulted by a [facility] or [employer] contracted radiologist. Elio Queen MD RAD FLUOROSCOPY [...] patient or by statute hierarchy) Care Teams Wind Energy Systems Installer Relationship Specialty Start Date End Date Dru Fritz MD [address] [place] [address] PCP - General Family Medicine 01/24/21 documented as of this encounter
--- OUTSIDE RECORDS SUMMARY | 2024-04-09 18:25 | External Medical Summary | Summary of Care ---
Author Name Unknown Organization [facility] Address [address] [place] [address] Phone [phone] Care Team Providers Care Dry Cans Back Tender Name Role Phone Dru Fritz MD Primary Care Provider [phone] Encounter Details Date Type Department Care Team (Late st Contact Info) Description 02/18/2024 Orders Only Hematology/Oncology Valentín Melara [place] 200 [facility] [place] [address] Elio Queen MD [address] [facility] [address] Allergies Active Allergy Reactions Criticality Noted Date Comments Amoxicillin-Pot Clavulanate 05/17/20 22 Dizziness and confused documented as of this encounter (statuses as of 04/02/2024) Medications Medication Sig Dispensed Refills Start Date End Date Status Gatheredtable SYSTEM W/DEVICE KITIndications:DM type 2, goal A1c [...] No 03/06/2024 Does the household have a [facility] source [facility]? (Household - for [...] 04/16/2024 11:45 AM EDT Office Visit Urology, [facility] 132 [facility] [place] [address] Isaías Novak MD [address] [place] [address] 04/18/2024 1:15 PM EDT Office Visit Hematology/Oncology [facility] 200 [place] [phone] Elio Queen MD 200 [place] [address] 05/08/2024 11:00 AM EDT Laboratory Laboratory [facility] [address] [facility] [place] [phone] [place], Lab [address] [place] [address] 05/08/2024 11:45 AM EDT Immunization[facility]io n [facility] [address] [facility] [phone] Nurse, Med 200 [facility] [place] [address] 05/20/2024 2:15 PM EDT Office Visit Urology [facility] [address] [facility] [place] [address] Isaías Novak MD [address] [place] [phone] 07/01/2024 4:00 PM EDT Office Visit Family Practice [facility] [address] [address] Dru Fritz MD [address] [place] [address] Health Maintenance Due Date Last Done Comments DISCUSS TOBACCO CESSATION (REFER TO SMARTSET #3801) 1960 COVID-19 Vaccine (#1) 1965 Pneumococcal Vaccine: [...] Screening 03/06/2025 03/06/2024 CKD PHOS USE SMARTSET 56190 04/01/2025 07/0 11/2023, 03/11/2024, 03/06/2024, Additional history exists CKD HGB USE SMARTSET 10588 04/02/202504/02, 04/01/2024, 03/11/2024, Additional history exists HPV [...] this encounter Medical Devices Implanted Type Area Theater Teacher Device Identifier Shelf Expiration Date Model / Serial / Lot Stent Trnscarotid Enroute 7x40 - [id number] Implanted:Qty: 1 on 01/25/2021 by Zeinab Robert MD at [facility] Left: [facility] [id number] 05/31/2023 SR-0740-C S / / [id number] documented as of this encounter Procedures Procedure [...] interpreted or resulted by a [facility] or [employer] contracted radiologist. Elio Queen MD RAD ULTRASOUND [...] patient or by statute hierarchy) Care Teams Dry Cans Back Tender Relationship Specialty Start Date End Date Dru Fritz MD [address] [place] [address] PCP - General Family Medicine 01/24/21 documented as of this encounter
--- OUTSIDE RECORDS SUMMARY | 2024-04-09 18:25 | External Medical Summary | Summary of Care ---
Author Name Unknown Organization [facility] Address [address] [place] [address] Phone [phone] Care Team Providers Care Cloth Bale Header Name Role Phone Dru Fritz MD Primary Care Provider [phone] Reason for Visit * Auth/Cert Specialty Diagnoses / Procedures Referred By Contac t Referred To Contact Diagnoses hematuria Damian Allison DO [address] [place] [phone] Admissions [facility] [address] [place] [address] Referral ID Status Reason Start Date Expiration Date Visits Re quested Visits Authorized [id number] Encounter Details Date Type Department Care Team (Latest Contact Info) Description 04/01/2024 7:53 PM EDT - 04/02/2024 2:40 PM EDT Hospital Encounter 3B [facility] 3rd Floor [address] [place] [id number] Damian Allison DO [address] [place] [id number] Alec King MD [address] [place] [address] [id number] Pt Handout (on AVS) Discharge Disposition: Home - Self Care Allergies Active Allergy Reactions Criticality Noted Date Comments Amoxicillin-Pot Clavulanate 05/17/20 22 Dizziness and confused documented as of this encounter (statuses as of 04/03/2024) Medications Medication Sig Dispensed Refills Start Date End Date Status CasagemUCH Transmension SYSTEM W/DEVICE KITIndications:DM type 2, goal A1c below 7 Use up to four times a day as directed 1 Kit 0 07/28/2014 Active Blood Glucose Monitoring Suppl (VidimaxTOUCH VERIO) w/Device KIT Use up to 4 [...] Tablet 2 09/13/2023 Active Ergocalciferol 1.25 MG (94580 UT) Oral Capsule (Vitamin D2(Drisdol)) Take 1 [...] the morning. 30 Tablet 3 04/02/2024 Active Aspirin 81 MG TBEC Take 1 Tablet by mouth in the morning. 4 Discontinued sildenafil (REVATIO) 20 MG Tablet Take 3 tablets by mouth 1 hour prior to sexual activity 30 Tab 5 03/27/2018 4 Discontinued Entresto 24-26 MG Oral Tablet (sacubitril-valsa rtan 24-26 mg per tab)Indications:E ssential hypertension with goal blood pressure less than 140/90 TAKE ONE TABLET BY MOUTH TWICE A DAY 180 Tablet 3 05/03/2023 4 Discontinued Empagliflozin 25 MG Oral Tablet (Jardiance)Indica tions:Type 2 diabetes mellitus with diabetic neuropathy, without long-term current use of insulin (HCC) TAKE ONE TABLET BY MOUTH DAILY IN THE MORNING 90 Tablet 3 08/15/2023 4 Discontinued linaGLIPtin 5 MG Oral Tablet (Tradjenta)Indica tions:Type 2 diabetes mellitus with diabetic neuropathy, without long-term current use of insulin (HCC) TAKE ONE TABLET BY MOUTH EVERY MORNING 90 Tablet 1 12/10/2023 4 Discontinued PARoxetine HCl 10 MG Oral Tablet (Paxil) Take 1 Tablet by mouth in the morning. 90 Tablet 3 12/26/2023 4 Discontinued Clopidogrel Bisulfate 75 MG Oral Tablet (pLAVix) TAKE ONE TABLET BY MOUTH IN THE MORNING 30 Tablet 5 01/06/2024 4 Discontinued traMADol HCl 50 MG Oral Tablet (Ultram)Indicatio ns:Malignant neoplasm metastatic to bone (HCC) Take 2 Tablets by mouth 3 times a day as needed for moderate pain. 180 Tablet 02/12/2024 4 Discontinued Morphine Sulfate ER 15 MG Oral Tablet Extended Release (MS Contin)Indication s:Cancer associated pain Take 1 Tablet by mouth in the morning and 1 Tablet before bedtime. 60 Tablet 03/07/2024 4 Discontinued Morphine Sulfate 15 MG Oral Tablet (Msir) take 1 tablet (15 mg )orally twice a day As Needed for pain 10 Tablet 03/28/2024 4 Discontinued traMADol HCl 50 MG Oral Tablet (Ultram)Indicatio ns:Malignant neoplasm metastatic to bone (HCC) Take 2 Tablets by mouth 3 times a day as needed for Pain, Moderate. 180 Tablet 04/02/2024 4 Discontinued documented as of this encounter (statuses [...] Sign Reading Time Taken Comments Blood Pressure 144/80 04/02/2024 10:51 AM EDT Pulse 76 04/02/2024 10:51 AM EDT Temperature 36.6 C (97.8 F) 04/02/2024 10:51 AM E DT Respiratory Rate 22 04/02/2024 10:51 AM EDT Oxygen Saturation 100% 04/02/2024 10:51 AM EDT Inhaled Oxygen Concentration - - Weight 53.6 kg (118 lb 3.2 oz) 04/01/2024 7:42 P M EDT Height 172.7 cm (5' 8") 04/01/2024 7:42 PM EDT Body Mass Index 17.97 04/01/2024 7:42 PM EDT documented in this encounter Functional [...] No 04/01/2024 documented as of this encounter Discharge Instructions * Discharge Instr - AVS* Christine, Min MD Alec - 04/02/2024 1:19 PM EDT Discharge Date: 04/02/24 The information below provides you with the instructions and the list of medications you need to betaking following discharge from the hospital. If you have any questions, please ask before leaving. If you have questions after leaving, you can reach us at the numbers below. YOUR HOSPITAL PROVIDERS: Discharging Provider: Alec King MD Provider Department: Hospital Medicine To reach this Provider Sunday through Sunday (8:00 AM to 4:30 PM) for any questions or test results: Call [phone] For after-hours concerns: Call [phone] and have your provider paged, or the provider supervisor concrete pipe plant for the Department of Hospital Medicine paged. Please note, the discharging provider will not be able to provide you with any medications refills.Please discuss these with your primary care provider. Worsening Symptoms: If you have new symptoms, or your symptoms get worse, please contact your Discharge Provider or Primary Care Provider (PCP). If these providers are not available, you can go to your local [facility] or [facility] Clinic during their business hours. In an EMERGENCY situation: Call [phone] or go to the nearest emergency room. A BRIEF SUMMARY OF YOUR HOSPITAL STAY: You came to the hospital with: complaint of hematuria Your main diagnosis at discharge was: Gross hematuria related with metastatic prostate cancer Obstructive uropathy s/p bilateral ureteral stents Pancytopenia likely related with chemo induced Cancer related pain Operations & Procedures performed: none Complications: none applicable Inpatient test results that are pending at discharge: none Advance Directive Documented: Advance Directive Does the Patient have an Advance Directive? No YOUR FOLLOW UP APPOINTMENTS: Primary Care Provider Information: PCP: Dru Fritz MD [address] [place] [address] / [place] [address] (office) [phone] (fax) An appointment was requested with your PCP (Dru Fritz MD) within 7 days. Urologist follow upin 3 days (Please take this form to this visit with your primary care physician.) You need the following studies in the future: none INSTRUCTIONS: Diet: Carbohydrate-controlled diet, easy to chew diet Activity: As tolerated Indwelling Urinary Bladder Catheter Care: Prevent infection. Always wash your hands before handling your catheter, bag or tubing. Cleaning your skin and tubing: Clean the skin near the catheter with soap and water. Wash your genital area from front to back. Wash the catheter tubing. Always wash the catheter in the direction away from your body. You will be told when and how to change your bag and tubing. Dont try to remove the catheter by yourself. You may shower with the catheter in place. Emptying/Changing the bag Wash your hands. Remove the stopper on the bag. Drain the bag into the toilet or a measuring container. Dont let the tip of the drainage tube touch anything, including your fingers. When the bag is empty, clean the tip of the drainage tube with an alcohol wipe. Clamp the tube. Clean the tip of the drainage tube with alcohol. Reinsert the tube into the pocket on the drainage bag/ Replace the stopper. Additional Instructions: - Call your primary care physician or seek medical attention if blockage of rain catheter with manual irrigation . Saline flush with bladder irrigation every 6 hourly as needed for hematuria with clots Hold Aspirin, Plavix since you platelets counts are low hold Entresto since you have metastatic prostate cancer, obstructive uropathy with hematuria Hold Jardiance, tradjenta since your blood sugars are on the lower side and your intakes is low . If you are planning to take those, check your blood glucoses daily Continue MS Contin 15 mg twice daily. Discontinued Ultram and increased the frequency of his MSIR 15 mg every 4 hours as needed for breakthrough pain. documented in this encounter Progress Notes * Carolyn Valadez RPh - 04/02/2024 1:38 PM EDT PHARMACY DISCHARGE MEDICATION RECONCILIATION REVIEW [address] [address] Name: Brett Virgen Location: [facility] [id number]-3018/W Date: 04/02/2024 Time: 1:38 PM This discharge medication reconciliation was reviewed by a pharmacist and no corrections or interventions were required. documented in this encounter H&P Notes * Beverley Novak CRNP - 04/01/2024 8:52 PM EDT Images from the original note were not included. [facility] 3B-3018/W PRESENTING PROBLEM: hematuria HPI: Brett Fish is a 63-year-old male w/PMHx of Prostace CA METS to bone, type 2 DM, CKD 3A,chronic diastolic heart failure, hypertension, thrombocytopenia, blood loss anemia, tobacco use disorder presents today as a transfer from [facility] for gross hematuria. Patient was most recently hospitalized at [facility] from 03/24-03/28 for difficulty urination with hematuria related to metastatic prostate cancer and has ureteral stents placement and discharged home on hospice care with Foleycatheter. Information gathered from patient and who is at bedside. Sunday evening after being discharged home for [facility] patient began having bright red gross hematuria with a rain catheter. Per , hospice gave patient the decision in which were he requested to go to ED for evaluation. Patient has chronic cancer related back pain. [facility] Urology recommended IR for nephrostomy tube placement. No fevers, chills, headaches, dizziness, chest pain, shortness of breath melena, hematochezia, abdominal pain or chest pain reported. Patient received platelets today prior to leaving [facility] for PLT count 33L. CT ABD/Pelvis on 03/29/24 at [facility] showed 8.9 x 6.5cm blood clot within the bladder. Moderate distended bladder. Rain catheter was placed with return of gross hematuria with clots. Patient is requesting to restart is home medications he was taking prior to hospice as they made him feel better. Hospital medicine accepted admission and patient will be admitted to Hospital Medicine for medical management and treatment. Subjective Patient's past history, medications, and allergies were reviewed. Objective Physical Exam Most Recent Vital Signs: BP: 146 mmHg/79 mmHg (04/01/241941) Pulse: 107 (04/01/241941) Resp: 18 (04/01/241941) Temp: 36.5 C (04/01/241941) Temp Summary: Temp Min: 36.5 C (97.7 F) Max: 36.5 C (97.7 F) SpO2: 100 % (04/01/241941) O2 flow rate: Supplemental O2 Delivery: Room Air, None (04/01/241941) Physical Exam Constitutional: General: He is awake. Appearance: He is cachectic. He is not toxic-appearing or diaphoretic. Comments: Chronically ill-appearing HENT: Head: Normocephalic. Mouth/Throat: Mouth: Mucous membranes are moist. Pharynx: Oropharynx is clear. No oropharyngeal exudate or posterior oropharyngeal erythema. Eyes: Extraocular Movements: Extraocular movements intact. Conjunctiva/sclera: Conjunctivae normal. Cardiovascular: Rate and Rhythm: Regular rhythm. Tachycardia present. Pulses: Normal pulses. Heart sounds: Normal heart sounds, S1 normal and S2 normal. No murmur heard. Pulmonary: Effort: Pulmonary effort is normal. Breath sounds: Normal breath sounds. No wheezing, rhonchi or rales. Abdominal: General: Bowel sounds are normal. There is no distension. Palpations: Abdomen is soft. Tenderness: There is no abdominal tenderness. There is no guarding. Genitourinary: Comments: Dark old, Gross hematuria in rain catheter Musculoskeletal: General: No swelling or tenderness. Normal range of motion. Cervical back: Normal range of motion and neck supple. Right lower leg: No edema. Left lower leg: No edema. Skin: General: Skin is warm and dry. Capillary Refill: Capillary refill takes less than 2 seconds. Neurological: General: No focal deficit present. Mental Status: He is alert and oriented to person, place, and time. STUDIES: Encounter Orders Labs and other studies reviewed personally myself with pertinent findings noted below: Results for orders placed or performed during the hospital encounter of 04/01/24 CBC Result Value Ref Range WBC 4.38 4.00 - 10.80 K/uL RBC 3.36 4.50 - 5.25 M/uL HGB 10.3 (L) 14.0 - 16.8 g/dL HCT 30.1 (L) 40.0 - 48.4 % MCV 89.6 82.0 - 99.5 fL MCH 30.7 27.0 - 34.0 pg MCHC 34.2 32.0 - 36.0 g/dL RDW 16.1 11.5 - 15.5 % PLT 43 (L) 140 - 400 K/uL MPV 8.9 6.6 - 11.1 fL nRBCs 1 (H) <=0 /100 WBCs PT INR Result Value Ref Range Prothrombin Time 15.7 (H) 11.6 - 15.2 seconds INR 1.2 0.8 - 1.2 *Note: Due to a large number of results and/or encounters for the requested time period, some results have not been displayed. A complete set of results can be found in Results Review. Assessment and Plan IMPRESSION: Principal Problem: Gross hematuria Active Problems: Tobacco use disorder Type 2 diabetes mellitus with hemoglobin A1c goal of less than 7.0% (HCC) HTN, goal below 130/80 Stage 3a chronic kidney disease (HCC) Chronic systolic heart failure (HCC) Prostate cancer metastatic to multiple sites (HCC) Malignant neoplasm metastatic to bone (HCC) Thrombocytopenia (HCC) Blood loss anemia Resolved Problems: * No resolved hospital problems. * DIFFERENTIAL AND PLAN: Gross hematuria Blood Loss Anemia Admit patient to med surgical unit Continuous bladder irrigation Urine culture pending Urology consult for metastatic prostate cancer and hematuria. [facility] consult for goals of care for cancer and pain management CBC, BMP, Mag, phos, PT INR now and again in a.m. Type and screen Trend hemoglobins ( HGB 10.3, stable) Transfuse if HGB < 7 (patient received 1 unit PRBCs and platelets at [facility]) Continue [employer] home meds as prescribed Supportive care Hold [employer]IC[employer]PER[employer]OR Plavix and aspirin ( reports patient has not been taking due to excessive bleeding in urine and low platelet counts) Prostate cancer Mets to multiple sites Continue [employer] morphine sulfate and tramadol as ordered CKD 3 Check BMP now and again in a.m. Type 2 diabetes with hemoglobin A1c goal of less than 7.0%)[facility]) ISS NovoLog sliding scale protocol AC and HS BSG a.c. and HS Hold [employer]IC[employer]PER[employer]OR Jardiance Tobacco use disorder Patient declined nicotine cessation at this time Supportive care PHARMACOLOGIC VTE PROPHYLAXIS: This patient does not have an active medication from one of the medication groupers. CODE STATUS: Limited Code EXPECTED DISCHARGE DATE: No information available I spent a total of 60 minutes coordinating, documenting, and providing care for this patient excluding time spent in the performance of separately billed services. Case and treatment plan discussed with my attending, Dr. Lopez. Associated attestation - Bertin Lopez MD - 04/01/2024 9:29 PM EDT I have reviewed the advanced practitioner's documentation on the date of service referenced in note, Briefly, this is a 63 yo man with below pmh that includes prostate cancer metastatic to bone, urinary obstruction, s/p ureteral stents, smoker, dm2. He was previously on hospice but is no longer on this service. He was transferred here from [facility] with hope of inserting nephrostomy tubes. However his platelets were too low and he is actively bleeding in rain catheter, so this may need to wait until thrombocytopenia is improved. According to , he received a platelet transfusion prior to his transfer from [facility]. On exam Gen: thin, chronically ill appearing man resting in bed. Chest: cta Cv: tachy Abd: scaphoid, bowel sounds present. It is firm. : dark bloody red-brown urine seen in collection bag Ext: no edema. IMP: Metastatic prostate cancer with obstructive uropathy and gross hematuria. Thrombocytopenia will need to be addressed before IR can try nephrostomy tube placement. The blood in collection bag appears to be old blood so he may have stopped bleeding for now. -admit to monitored bed -check admission labs including cbc, bmp, inr. May need to check lft's -close monitoring of cbc and would transfuse platelets if actively bleeding or prbcs to keep hgb above 7 -pain control -urology consult -insulin for dm2 -palliative care consult I spent a total of 55 minutes coordinating, documenting, and providing care for this patient excluding time spent in the performance of separately billed services or time spent by another provider/QHP. documented in this encounter Consult Notes * Pastora Horn CRNP - 04/02/2024 12:29 PM EDTAssociated Order(s): PALLIATIVE MEDICINE CONSULT IP Palliative Medicine Inpatient Consult Note [facility] [address] Name: Brett Virgen Location: [facility] 3B-3018/W Date: 04/02/2024 Time: 12:29 PM Requesting Service General Internal Medicine Reason for Consult: Goals of care and symptom management HPI: Brett Virgen is a 63 year old male who was admitted 04/01/2024 for hematuria and obstructive uropathy, with background of metastatic prostate cancer s/p chemo and palliative radiation. Patient was transferred from [facility] for placement of nephrostomy tubes. Patient was admitted recently to [facility] for gross hematuria, bladder pain, and inability to void due to prostate cancer, had bilateral ureteral stents placed by on 02/18/24. He was discharged home with hospice without a Rain. He was voiding well until 03/29 when he started have hematuria, clots, and abdominal discomfort. He went back to [facility] and had rain placed for relief. He was then transferred here for possible tube placement. He is also thrombocytopenic. Palliative medicine is consulted. Met with patient and his Brittaney in his room this morning. Patient is somewhat drowsy as he just received pain medication and little bit ago, but is oriented x4 and knowledgeable about his situation he was very tired dozed off a couple times during our conversation, but was very clear that heis okay with limited treatment for his current condition with the goal of pain management and eventually returning home. His acknowledges that he was on a [facility] hospice, but it is currentlyrevoked since he came to the hospital. They are discussing going back on hospice care upon discharge. Patient said if there is nothing more that can be done for his illness, he certainly would like to return home on hospice. Full discussion below, but in summary, patient and are waiting to hear from urology about whether or not nephrostomy tubes will be helpful, they are okay with continuing limited interventions. They are considering hospice care upon discharge. Palliative symptoms: Pain: yes, currently 4/10 Location: lower back and lower abdomen Currently taking: MS Contin 15mg BID, MS IR PRN (did not take any PRN today) Severity: 6/10 at worst normally, was 15/10 when he was having trouble voiding at home with blood and clots Context: obstructive uropathy from prostate cancer Modifying factors: morphine Nausea/Vomiting: no Appetite: ok Constipation: no Confusion: no Sleep issues: no Dyspnea: no Mood issues: no Falls: no Other: weakness Objective: BP 144/80 | Pulse 76 | Temp 36.6 C (97.8 F) (Temporal Artery) | Resp 22 | Ht 1.727 m (5' 8") | Wt 53.6 kg (118 lb 3.2 oz) | SpO2 100% | BMI 17.97 kg/m | BSA 1.6 m Constitutional: no acute distress, chronically ill, cachectic, frail HENT: normocephalic, atraumatic. Neck: no stridor Chest: normal respiratory effort Abdominal: nondistended Skin: pale Data Review: External notes reviewed: - Reviewed notes from admitting provider 04/01/24 - plan to consult urology, transfuse platelets as needed, palliative consult. - Reviewed notes from urology 04/02/24 - discussed options including continuing with Rain catheterand ureteral stents vs nephrostomy tube placement, removal of stents - recommended IR consult for nephro tube placement. Lab / Imaging Results: BUN and Cr today 21 and 1.2 - stable. PLT 04/02/24 51 Information obtained from for collateral history Discussion with other team members: I discussed patient with Dr. King at length about patient's condition and options for treating the obstructive uropathy. Decision-making Capacity: Does Patient have Decisional Capacity? Yes Does Patient have a Healthcare Agent? Brittaney Advanced Care Planning (ACP) Tab Review: Living Will in EMR: no Prior POLST in EMR: no Discussion with Patient/Family: Met with patient and at bedside. Introduced role of Inpatient Palliative Medicine team and reviewed symptoms as above. Reviewed patient's/family's understanding of current medical situation. Patient and aware thathe has metastatic cancer that is terminal. Patient's main concern is pain relief and quality of life. He wants to return home upon discharge. Is still deciding about whether or not to sign back on hospice. Patient said, "if there is something they can do about this and the tubes will help, then fine. If there is nothing else they can do for me then I will just go back home on hospice. I did discuss that I think he would be able to return home on hospice no matter what happens throughout this hospitalization. He and verbalized understanding and said they would continue to discuss as we see how things progress. Reviewed 3 pathways of care - full vs limited vs comfort. At this time they are okay with continuing limited treatment but patient is DNR/DNI.. ASSESSMENT/RECOMMENDATIONS: Brett Virgen is a 63 year old male who was admitted 04/01/2024 for hematuria and obstructive uropathy, with background of metastatic prostate cancer s/p chemo and palliative radiation. Problems Addressed: Obstructive uropathy related to metastatic prostate cancer. Gross hematuria Thrombocytopenia S/p bilateral ureteral stent placement on 02/18/24 at [facility] Metastatic prostate cancer - s/p chemo and palliative radiation, was on hospice prior to arrival Cancer related pain Goals of care - DNR/DNI, but okay with continuing limited treatment. Goal is to return home, likelyon hospice again. Code status: Limited Code Prognosis at this time estimated to be six months or less. Recommendations: Continue MS Contin 15 mg twice daily. I discontinued his Ultram and increased the frequency of his MSIR 15 mg 2 q.4 hours p.r.n. breakthrough pain. I believe patient's pain is multifactorial including obstructive uropathy and his metastatic prostate cancer. I am unsure if placing nephrostomy tubes would make much of a difference in his pain level or quality of life at this point. He seems fairly comfortable with the Rain catheter and ureteralstents, but his concerns about the Rain clotting off again are valid. Recommend ongoing discussion of goals of care after Urology and IR consult. I think whether or not patient has nephrostomy tubes placed during this hospitalization, he could still return home with [facility] hospice who he was with prior to arrival. Thank you for this consult. We will continue to follow. Please do not hesitate to call or TigerText with additional questions or concerns. DANIELLE Jackson [facility] Palliative Medicine TigerText [facility] Palliative Medicine Role to contact us * Christianne Head RDN - 04/02/2024 9:29 AM EDT CLINICAL NUTRITION CONSULT/PROGRESS NOTE [facility] [address] Name: Brett Virgen Location: [facility] 3B-3018/W Date: 04/02/2024 Time: 9:51 AM How patient was identified (select 2): date and Name Discussed in interdisciplinary rounds: Yes Brett Virgen is a 63 year old male being seen for reduced dietary intake and unsure weight loss Primary Diagnosis: Gross hematuria Other pertinent information: Per chart review, pt PMH includes chronic systolic heart failure, metastatic prostate cancer, type 2 DM. Met with patient and his at bedside to assess nutritional status. Per patient's , he has not been eating well over the past few months. Patient's reports that she was buying Ensure and he was drinking that for a while but then got sick of it. Per EHR, pt consumed 50% of his lunch. Patient reports that he does not follow any special diet, however, per pt's he eats easier to chew/softer foods. Patient food preferences relayed to food services. Per pt's , his usual body weight was in the 160 lbs range but he lost weight since. Per EHR, patient has had significant weight loss of 21% x 6 months. Patient is agreeable to super pudding daily. Patient's reported that she also got him magic cups but that he did not like the vanilla. Placed outpatient nutrition referral. Performed a nutrition focused physical exam today, patient currently meets criteria for severe malnutrition. Patient and had no other nutritional questions or concerns at this time. NUTRITION ASSESSMENT: Past medical/surgical history and medications reviewed. Food/Nutrition-Related History Diet: 4 Choices (60 gm) Consistent Carbohydrate Easy to Chew Heart Healthy, 2 gm Sodium Previously followed diet: Regular/ easy to chew per Food Allergies/Intolerances: NKFA Adult Energy Intake: Less than 75% of estimated energy requirement for greater than 1 month (moderate/severe, chronic illness). Percentage of meal intake: 0-25% Oral Nutrition Supplement (ONS): None Pertinent medications/vitamins/minerals/supplements: calcitriol, calcium carbonate, cyanocobalamin,ferrous sulfate, novolog, magnesium chloride, potassium and sodium phosphate Pertinent Biochemical Data: There are no biochemical abnormalities requiring a change in the nutrition plan of care. Nutrition-Focused Physical Findings: Appearance: Cachectic and Ill-appearing Respiratory support: Supplemental O2 Delivery: Room Air, None Nasal/Oral: Mastication, impaired Digestive: Appetite poor Cognition: Awake, alert and Oriented Skin: Intact Enteral access: None Nutrition Focused Physical Exam: NFPE completed on 04/02/24 Subcutaneous Fat Loss: Orbital fat pads: Severe Buccal fat: Moderate Tricep: Severe Muscle Loss: Temples: Moderate Clavicles: Mild Shoulders: Mild Interosseous: Severe Quadriceps: Severe Calves: Severe Anthropometrics Measurements Height: 172.7 cm (5' 8") (04/01/241941) Admission weight: 53.6 kg Weight: 53.6 kg (118 lb 3.2 oz) (04/01/241941) BMI: 17.98 (04/01/241941) Usual Body Weight: 63-71 kg per EHR Haywood weight: 64.7 kg Haywood Weight Based on BMI: 21.7 Interpretation of Weight Change Prior to Admission: Greater than 10% weight loss in 6 months (Severe); 21% weight loss x 6 months Nutrition Prescription: Energy needs: 30-35 Kcal/kg Kcal/day: 2405-7014 Based on current weight Protein needs: 1.2-1.4 gm/kg Protein: 64-75 Based on current weight Fluid needs: 30 ml/kg Fluid: 1608 ml/day Based on current weight Malnutrition: Malnutrition Present: Yes (04/02/241316) Adult Malnutrition Classification: Severe (04/02/241316) Malnutrition Characteristics: Fat loss;Muscle loss;Inadequate energy intake;Weight loss (04/02/241316) Malnutrition Care Plan: Patient meets ASPEN/AND criteria for severe malnutrition. Plan to meet 75% of estimated calorie and 75% of estimated protein requirements via therapeutic diet and a nutrition intervention of oral nutrition supplements. If patient unable to achieve estimatedrequirements over next 7 days, will need to consider enteral nutrition. Dietitian Action: Oral nutritional supplement ordered/adjusted (04/02/241316) Super Pudding Chocolate (188 kcals and 13g protein per 5.3oz) BID NUTRITION DIAGNOSIS: Increased nutrient needs calories/protein related to cancer dx as evidenced by catabolic nature of disease. Malnutrition severe related to chronic illness as evidenced by patient consuming less than 75% of estimated energy requirements x 1 month, greater than 10% weight loss x 6 month, severe fat loss, andsevere muscle loss. Underweight related to inadequate energy intake as evidenced by Body mass index is 17.97 kg/m. Goals: Patient to consume greater than 75 % of daily meals and 75% of daily supplements within 5-7 days. NUTRITION INTERVENTION/PLAN: Orders: Change diet to Easy to chew Oral nutrition supplement added Super Pudding Chocolate (188 kcals and 13g protein per 5.3oz) BID Clinical Nutrition Recommendations: Diet: Continue current nutrition plan Placed outpatient nutrition referral NUTRITION MONITORING AND EVALUATION: Nursing documentation flowsheets for percent meal intake Tolerance of supplement per patient/nursing report Lab values warranting change with MNT Weight for trends Plan follow-up: Will follow and adjust nutrition plan of care as medical condition requires. Please contact for change(s) in patient condition requiring earlier intervention. Christianne Head MS, RDN Clinical Nutrition [facility] Available via [place] Text [phone] * Lexi Chacon PA-C - 04/02/2024 7:25 AM EDTAssociated Order(s): UROLOGY CONSULT IP CONSULT - Urology [address] [place] [id number] Name: Brett Virgen Location: [facility] 3B-[id number]/W Date: 04/02/2024 Time: 7:25 AM REQUESTING SERVICE: Hospitalist PRESENTING PROBLEM: Transfer from [facility] for nephrostomy tubes HPI: Brett Virgen is a 63 y/o M with significant PMHx of metastatic prostate cancer on chemotherapy and palliative radiation. Patient is established with our office and follows closely with Dr. Queen (hem/onc).He is seen at bedside this morning with his . She stated he has had frequent admissions at [facility] recently for gross hematuria, bladder pain, and clogged foleys. He had bilateral ureteral stents placed by [facility]rology on 02/18/24 for CARLA and bilateral hydronephrosis. She stated at this last admission at the end of March, he was discharged home on hospice without a rain. She stated he was voiding well without issues until 03/29/24 when he started having gross hematuria endorsing lucina blood and lower abdominal discomfort. A rain catheter was placed for comfort and relief of clots. He stated his pain has improved since placement of catheter. His noted he had one transfusionprior to transfer. They noted they are here to discuss nephrostomy tube placement due to persistenthematuria s/p chemo and radiation. He stated he continues to smoke about 0.5 ppd. He denied fever, chills, nausea, vomiting, severe abdominal pain, and catheter issues since transfer. Prostate cancer: Was on alfuzosin but now taking tamsulosin. Elevated PSA noted. Abnormal KAMRAN at presentation. Biopsy done June 2021 demonstrating grade group 5 cancer in all cores. Eligard provided June 2021. Bone scan June 2021 demonstrates widespread metastases. Presented with urinary retention, bilateral hydro. Xtandi started Aug 2021 by Med Onc. Taxotere started Aug 2024. PET scan July 2023 demonstrates increased disease burden. PSA Results: Lab Results Component Value Date/Time PSA - [facility] 421.00 (H) 03/11/2024 02:33 PM PSA - [facility] 481.50 (H) 03/06/2024 12:16 PM PSA - [facility] 420.90 (H) 02/14/2024 01:08 PM PSA SCREENING 0.46 06/26/2014 09:04 AM Creatinine Results: Lab Results Component Value Date/Time [...] AM CREATININE-OUTSIDE LAB 1.35 03/26/2019 12:00 AM PAST MEDICAL HISTORY: Past Medical History: Diagnosis Date Chronic systolic heart failure (HCC) 03/31/2019 DM type 2, goal A1c below 7 Heart failure, etiology unknown (HCC) cardiac cath -02/04 10-20% block History of left common carotid artery stent placement 03/08/2021 HTN, goal to be determined Nonischemic cardiomyopathy (HCC) 03/31/2019 Primary insomnia 03/07/2021 Sciatica PAST SURGICAL HISTORY: Past Surgical History: Procedure Laterality Date TRANSCATH STENT-CAROTID ARTERY, W/EMBOL PROTECTION Left 01/25/2021 CAROTID STENT WITH DISTAL PROTECTION performed by Zeinab Robert MD at OR [facility] TRANSCATH STENT-CAROTID ARTERY, W/EMBOL PROTECTION Left 01/25/2021 CAROTID STENT WITH DISTAL PROTECTION TRANSCAROTID ARTERY REVASCULARIZATION performed by Zeinab Robert MD at OR [facility] FAMILY HISTORY: Family History Problem Relation Name Age of Onset Heart Disorder Father Lung Disorder Father Hypertension Mother Diabetes Mother SOCIAL HISTORY: Social History Tobacco Use Smoking status: Every Day Current packs/day: 0.50 Average packs/day: 0.5 packs/day for 30.0 years (15.0 ttl pk-yrs) Types: Cigarettes Smokeless tobacco: Never Tobacco comments: 03/06/24, 3 -4 cigarettes day Vaping Use Vaping status: Never Used Substance Use Topics Alcohol use: Yes Comment: rarely Drug use: Yes Types: Marijuana Comment: does not have medical marijuana card ALLERGIES: Augmentin [amoxicillin-pot clavulanate] REVIEW OF SYSTEMS: Constitutional: (-) fever chills sweats or weight loss Pulmonary: (-) negative: no cough, wheezing, or shortness of breath Abdominal/GI: (-) negative: no pain, heartburn, dysphagia, bleeding, change in bowel habits, nauseaor vomiting Male : see HPI Skin: (-) negative: no rash or new or changing moles Neurology: (-) negative: no focal neurologic defect PHYSICAL EXAMINATION: Most Recent Vital Signs: BP: 126 mmHg/76 mmHg (04/02/24306) Pulse: 79 (04/02/24306) Resp: 16 (04/02/24306) Temp: 36.22 C (04/02/24306) Temp Summary: Temp Min: 36.2 C (97.2 F) Max: 36.5 C (97.7 F) SpO2: 100 % (04/02/24306) O2 flow rate: Supplemental O2 Delivery: Room Air, None (04/02/24306) General: alert, awake, oriented to person and place and situation, chronically ill, thin Head: normocephalic, atraumatic Heart: regular rate Chest: normal respiratory effort Abdomen: soft, non-tender, non-distended Extremities: no edema : rain in place with dark red urine LAB LINKS: Labs reviewed as indicated below: CBC Lab Results Component Value Date/Time WBC 3.85 (L) 04/02/2024 06:38 AM WBC 11.62 (H) 04/29/2020 10:10 AM HGB 9.4 (L) 04/02/2024 06:38 AM HGB 16.1 04/29/2020 10:10 AM HCT 27.8 (L) 04/02/2024 06:38 AM HCT 46.1 04/29/2020 10:10 AM PLT 51 (L) 04/02/2024 06:38 AM PLT 195 04/29/2020 10:10 AM BMP Lab Results Component Value Date/Time NA 141 04/02/2024 06:38 AM NA 142 04/29/2020 10:10 AM POTASSIUM 3.9 04/02/2024 06:38 AM POTASSIUM 4.5 04/29/2020 10:10 AM CL 110 (H) 04/02/2024 06:38 AM CL 103 04/29/2020 10:10 AM CO2 19 (L) 04/02/2024 06:38 AM CO2 23 04/29/2020 10:10 AM BUN 21 (H) 04/02/2024 06:38 AM BUN 10 04/29/2020 10:10 AM CREAT 1.2 04/02/2024 06:38 AM CREAT 1.1 04/29/2020 10:10 AM Ca, Mg, Phos Lab Results Component Value Date/Time CA 7.9 (L) 04/02/2024 06:38 AM CA 9.3 04/29/2020 10:10 AM MG 2.0 04/01/2024 09:03 PM PHOSPHORUS 3.5 04/01/2024 09:03 PM PHOSPHORUS 3.0 04/29/2020 10:10 AM CULTURES: Urine culture 04/01/24- pending IMAGING: None new in our system. I contacted [facility] for recent CT scans, and they are pushing them through PACS. IMPRESSION: 63 year old male with metastatic prostate cancer on Taxotere and Eligard with worsening gross hematuria s/p bilateral ureteral stent placement. PLAN: - We had a lengthy discussion on patient's options to continue with bilateral ureteral stents and rain catheter or transition to nephrostomy tubes for urine diversion. We discussed his hematuria andbladder pain is secondary to his prostate cancer, urine irritation, and stent/catheter irritation. Patient is unsure of how he would like to proceed at this time. He noted he is happy with rain and stents now but is worried about rain blockage from blood clots. I discussed IR places nephrosotomy tubes, so I would recommend IR consult to discuss nephrostomy tube placement and management. I wouldrecommend holding patient's diet for now until patient is able to talk to IR and make a decision. Ureteral stents can be removed following nephrostomy tube placement if patient proceeds - In the meantime, I would not recommend CBI rather manual irrigation PRN; CBI may exacerbate patient's pain and discomfort - OK to continue tamsulosin - Anticoagulation per medicine and IR - Patient should follow-up with Dr. Novak as scheduled for follow-up to discuss stent exchange/removal pending his decision - He is due for [facility] in May as scheduled - Rest of care per primary team Patient seen and discussed with Dr. Addison. Lexi Chacon PA-C documented in this encounter Nursing Notes * Loulou Carey RN - 04/02/2024 2:16 PM EDT VIRTUAL RN [facility] [address] Name: Brett Virgen Location: [facility] 3B-3018/W Date: 04/02/2024 Time: 2:16 PM I completed the Discharge Navigator. The patient was in the hospital. I was not in a hospital or clinic location. After connecting through [facility], the patient was identified by name and date of and / or wristband checked. Patient (or authorized legal tax compliance representative) was then informed that this was a Virtual Nurse visit and was being conducted confidentially over secure lines. I used a headset and other methods to ensure confidentiality for the patient. My office door was closed. No oneelse was in the room with me. Patient acknowledged consent and understanding of privacy and security of the Virtual Nurse visit. I presented the opportunity for the patient or authorized legal tax compliance representative to ask any questions regarding the visit today. The patient or authorized legal tax compliance representative agreed to participate. * Renetta Campos RN - 04/02/2024 1:29 AM EDT Patient educated on orders for CBI to be inserted and ran to irrigate the bladder. Patient refused and wished to speak to urologist in the morning that he was certain that he wouldn't be able to manage the pain with his prostate cancer and mets. Patient producing adequate urinary output, still darkred blood. Reported comfortable at this time. * Renetta Campos RN - 04/01/2024 8:24 PM EDT Dual Licensed Skin Assessment completed by Renetat Chavez RN and Alyx Quinonez RN. The patient is/has a N/A Skin Breakdown (includes non blanchable erythema): No * Renetta Campos RN - 04/01/2024 8:16 PM EDT Patient alert and oriented x4, call francis within reach, at bedside. Admission completed. Physicians at bedside. documented in this encounter Miscellaneous Notes * Ancillary Progress Note - Essie Dhaliwal, Vice President Global Digital Marketing - 04/02/2024 2:40 PM EDT CARE MANAGEMENT - ADULT DISCHARGE NOTE [facility] [address] Name: Brett Virgen Location: [facility] 3B-3018/W Date: 04/02/2024 Time: 5:38 PM The following coordination of care and discharge plan has been coordinated with the care team, patient, family and/or caregiver according to the patients needs and preferences. Discharge Discharge Second Notice Important Message from Medicare delivered: Not Applicable (04/02/241699) Was Caregiver/Family/Facility contacted regarding discharge: Yes (04/02/241699) Discharge Transportation: Family/Friends drive (04/02/241699) Date of scheduled discharge transportation: 04/02/24 (04/02/241699) Patient declined post-hospital transition of care recommendation: N/A (04/02/241699) Final Discharge Plan (Complete only at time of Discharge): Home - Self Care ([facility] following) (04/02/241699) Narrative: Pt discharged to home with spouse and daughter and spouse providing transportation. Pt will have DME from Hospice. [facility] will admit pt after making a decision on the nephrostomy tubes. Pt's spouse is aware and in agreement. * Ancillary Progress Note - Essie Dhaliwal Vice President Global Digital Marketing - 04/02/2024 11:03 AM EDT CARE MANAGEMENT - ADULT INITIAL SCREENING [address] [address] Name: Brett Virgen Location: [facility] 3B-3018/W Date: 04/02/2024 Time: 5:15 PM Discussed patient with the interdisciplinary care team. This Utility Mechanic Supervisor performed a chart review and met with pt and pt's spouse at bedside to complete admission screen and assessed needs for transition planning. The healthcare marketer role and services were explained and emotional support was provided. Chief Complaint: No chief complaint on file. Prior Living Arrangements What was your living situation prior to admission/observation?: With Spouse;With Child (daughter's boyfriend) (04/02/24 110) Living Quarters: House (04/02/24 110) Number of steps to enter living quarters:: 2 AMINTA and ramp (04/02/24 1103) Do you have serious difficulty walking or climbing stairs? (5 years old or older): No (04/01/241950) History of falling: Yes (04/02/24 1011) Prior Level of Functioning Describe the patient's ability prior to admission/observation to perform ADLs: Requires assistance (04/02/24 110) Requires assistance with: Bathing;Toileting;Dressing;Grooming (04/02/24 110) Describe the patient's mobility status prior to admission: Patient requires assistance with ambulation (04/02/24 110) Patient uses assistive device: Yes (04/02/241102) If yes, choose:: Walker (04/02/241102) Caregiver Information Patient Contacts Name Relation Home Work Mobile BRITTANEY VIRGEN Spouse [phone] Pt came to [facility] from [facility] for gross hematuria. Pt was admitted for gross hematuria. Pt has consults for urology and palliative medicine. Pt is insured by [facility]. Pt lives with his spouse, daughter, and his daughter's boyfriend in a single story home with 2 AMINTA and then a ramp. Pt requires assistance with ADL's and ambulation with a rw or transport chair. Pt has grab bars, transport chair, shower chair, rw, oxygen, hospital bed, BSC, bedside table, w/c. Pt'sspouse provide transportation. Pt has [facility] and pt's spouse and daughter provide care.Pt's medical marijuana card ran out and they are working on renewing it. Pt uses a CBD oil vape pento help with sleeping. Pt is not interested in quitting and doesn't want any D/A services. Pt voiced that he is thinking about the nephrostomy tubes and wants a few days to make a decision. He wants to return home prior to that. Pt's spouse asking how hospice works if pt would decide to get the nephrostomy tubes. CM reviewed that she would need to call the hospice agency to find out an answer. SARAH called and spoke with Genet from [facility] and reviewed above information. Genet is going to reach out to the team and then update SARAH. Kymberly De León from [facility] return CM's call and voiced that pt can discharge today. Genet stating that they called and spoke with pt's spouse that hospice is going to wait and admit pt until he decides if he wants the nephrostomy tubes. Per Genet, if pt decides he wants the nephrostomy tubes and is on hospice and revokes services he will then use an entire benefit period. So hospice is going to wait to admit pt until he has made a decision, pt's spouse can then contact hospice and they will start services. Per Genet, they spoke with pt's spouse re: DME. Pt's spouse is going to PPfor equipment until hospice resumes. CM updated nursing staff on 3 that pt will need discharged with medications d/t hospice not resuming until pt makes a decision on nephrostomy tubes. Risk Stratification/Psychosocial/Care Gaps Risk Stratification Psycho Social / Medical Concerns Identified: Adjustment to illness/injury;Multiple Comorbidities;Chronic Kidney Disease (04/02/241102) Accessed [facility] to connect patients to social care resources: No (04/02/241102) OBRA or OPTIONS needed for placement: No (04/02/241102) Readmission Risk Score: 23.42 (04/02/24 1200) AM-PAC Score With Stairs : 11 (04/01/24 1942) Prior to Admission Services Services Prior to Admission METAL FABRICATING SUPERVISOR Services (Services received within the last 30 days with exception, Psych within last two years): Outpatient Hospice;Durable Medical Equipment (04/02/241102) List All Provider/Service Name: [facility] (04/02/241102) Agency contacted: Yes (04/02/241102) Spoke with - Comment: Genet (04/02/241102) METAL FABRICATING SUPERVISOR Durable Medical Equipment (DME) in home: Grab bars/Rails;Wheelchair standard;Walker Rolling;Oxygen (name) - Comment;Hospital bed;Bedside commode (transport chair, bedside table) (04/02/241102) [place] Dept[employer] of Aging (PDA) Waiver Program: N/A (04/02/241102) METAL FABRICATING SUPERVISOR Transportation (Services received within the last 30 days): Family/Friends Personal Vehicle (04/02/241102) Outpatient Utility Mechanic Supervisor: Patient Care Team: Vitor, Flores L, RN as Sterile Process Tech (Registered Nurse) Patient/Family Expectations: Return home For further screening information, please refer to the Care Management flow document. * Pt Handout (on AVS) - Margo Ernst RN - 04/02/2024 7:37 AM EDT 60521 Blood in Urine (Hematuria) Blood in your urine is called hematuria. Most of the time, the cause is not serious. But you shouldnever ignore blood in the urine. Your healthcare provider can evaluate you to find the cause of thebleeding and treat it, if needed. Types of hematuria Gross hematuria. This means that the blood can easily be seen when you look at it. The urine maylook pinkish, brownish, or bright red. Microscopic hematuria. This means that the urine appears clear, but blood cells can be seen whenurine is looked at under a microscope or tested in a lab. Both types of hematuria can have the same causes. Neither is more serious than the other. With either type, you may not have any other symptoms at all. Or you may have symptoms, such as: Pain, pressure, or burning when you urinate Belly pain Back pain No matter how much blood is in your urine, the cause of the bleeding needs to be diagnosed and treated. What causes hematuria? Causes of hematuria vary. Some of the more common causes include : Injury or trauma Strenuous exercise Infection or inflammation of the bladder, urethra, kidney, or prostate Menstruation. In this case, blood is found in urine sample, but it's not related to urinary problems. Other reasons for blood in urine that may be more serious include: Blood-clotting disorders Kidney or bladder stones Prostate enlargement Bladder or kidney cancer Sickle cell disease Kidney disease of the glomeruli. This is a round cluster of blood vessels. Many treatments are available for blood in the urine, depending on the cause. Diagnosing hematuria Your healthcare provider will first confirm that blood is in your urine. They will also ask about your health history and give you a physical exam. Then you may have tests to find out where the bloodis coming from and why. Your provider will decide which tests will best find the cause of your hematuria. These are some common tests that may be done: Urine tests, such as urinalysis, urine culture, or urine cytology Blood tests Cystoscopy CT scan or CT urography MRI or MR urography Ultrasound of the kidney Kidney biopsy Last Reviewed Date: 05/01/202319993922-9349 [employer]. All rights reserved. This information is not intended as a substitute for professional medical care. Always follow your healthcare professional's instructions. * Medical Necessity - Ross Parsons, Utilization Review Staff - 04/02/2024 2:29 AM EDT AdmissionCare Guideline: Urologic Disease, Inpatient Based on the indications selected for the patient, the bed status of Inpatient was determined to beMET The following indications were selected as present at the time of evaluation of the patient: - Clinical Indications for Admission to Inpatient Care - Hospital admission is needed for appropriate care of the patient because of 1 or more of the following: - Urologic Disease condition, symptom, or finding for which observation care has failed or is not considered appropriate. See General Criteria: Observation Care, General Admission Criteria, or Pediatric General Admission Criteria guideline as appropriate. Additional Information: Gross hematuria AdmissionCare documentation entered by: Ross Parsons [facility] [employer], 28th edition, Copyright 2023 [employer] All Rights Reserved. [id number]:29:16-04:00 Solely for purpose of utilization review and payment; not a diagnostic tool documented in this encounter Plan of Treatment Upcoming Encounters Date Type Department Care Team (Late st Contact Info) Description 04/07/2024 1:00 PM EDT Nutrition Services Nutrition, [facility] [address] [place] [address] Concha Kaur RDN [address] [place] [address] 04/11/2024 11:00 AM EDT Office Visit Family [facility] [address] [place] [address] Dru Fritz MD [address] [place] [address] 04/16/2024 11:45 AM EDT Office Visit Urology, [facility] [address] [facility] [place] [address] Isaías Novak MD [address] [place] [address] 04/18/2024 1:15 PM EDT Office Visit Hematology/Oncology [facility] [address] [place] [phone] Elio Queen MD [address] [facility] [place] [address] 05/08/2024 11:00 AM EDT Laboratory Laboratory [facility] [address] [facility] [phone] Park, Lab [facility] 200 [facility] [place], [place] [address] 05/08/2024 11:45 AM EDT Immunization/Injectio n Hematology/Oncology Treatment, [place] [address] [place], [place] [phone] Nurse, Med 200 [facility] [place], [place] [address] 05/20/2024 2:15 PM EDT Office Visit Urology, [facility] 132 [facility] [place] [address] Isaías Novak MD [address] [place] [address] 07/01/2024 4:00 PM EDT Office Visit Family Practice [facility] [address] [facility] [place] [address] Dru Fritz MD 132 [facility] [place] [address] Pending Results Name Type Priority Associated Diagnoses Date /Time CULTURE, URINE, QUANTITATIVE Lab Routine 04/01/2024 11:20 PM EDT Scheduled Orders Name Type Priority Associated Diagnoses Orde r Schedule CULTURE, URINE, QUANTITATIVE Lab Routine One Time for 1 Occurrences starting 04/01/2024 until 04/01/2024 Health Maintenance Due Date Last Done Comments DISCUSS TOBACCO CESSATION (REFER TO SMARTSET #4226) 1960 COVID-19 Vaccine (#1) 1965 Pneumococcal Vaccine: [...] Screening 03/06/2025 03/06/2024 CKD PHOS USE SMARTSET 57469 04/01/2025 07/0 11/2023, 03/11/2024, 03/06/2024, Additional history exists CKD HGB USE SMARTSET 48251 04/02/202504/02, 04/01/2024, 03/11/2024, Additional history exists Albumin/Creatinine [...] this encounter Medical Devices Implanted Type Area Motion Picture Photographer Device Identifier Shelf Expiration Date Model / Serial / Lot Stent Trnscarotid Enroute 7x40 - [id number] Implanted:Qty: 1 on 01/25/2021 by Zeinab Robert MD at [facility] Left: Carotid [facility] [id number] 05/31/2023 [id number] / / [id number] documented as of this encounter Procedures Procedure Name Priority Date/Time Associated Diagnosis Comments GLUCOSE METER, POINT OF CARE LAURIE 04/02/2024 11:26 AM EDT GLUCOSE METER, POINT OF CARE LAURIE 04/02/2024 7:52 AM EDT HEMOGLOBIN A1C Routine 04/02/2024 6:38 AM EDT BASIC METABOLIC PANEL Routine 04/02/2024 6:38 AM EDT PT INR Routine 04/02/2024 6:38 AM EDT CBC Routine 04/02/2024 6:38 AM EDT GLUCOSE METER, POINT OF CARE LAURIE 04/02/2024 6:26 AM EDT MRSA SCREEN, PCR Routine 04/01/2024 11:2 0 PM EDT GLUCOSE METER, POINT OF CARE LAURIE 04/01/2024 10:12 PM EDT BASIC METABOLIC PANEL STAT 04/01/2024 9:03 PM EDT TYPE AND SCREEN Routine 04/01/2024 9:03 PM EDT PT INR STAT 04/01/2024 9:03 PM EDT PHOSPHORUS STAT 04/01/2024 9:03 PM EDT CBC STAT 04/01/2024 9:03 PM EDT MAGNESIUM STAT 04/01/2024 9:03 PM EDT documented in this encounter Results * GLUCOSE METER, POINT OF CARE (04/02/2024 11:26 AM EDT) Glucose Meter 105 70 - 120 mg/dL 04/02/2024 11:38 AM EDT [facility] Blood Whole blood specimen / Unknown 04/02/2024 11:26 AM EDT 04/02/2024 11:38 AM EDT Min Min Christine RITTER LAB POINT OF CARE TE ST DOCKED DEVICE UNSOLICITED RESULTS Performing Organization Address City/[facility]/ZIP Co de Phone Number [facility] [address] [place] [address] * GLUCOSE METER, POINT OF CARE (04/02/2024 7:52 AM EDT) Glucose Meter 102 70 - 120 mg/dL 04/02/2024 8:16 AM EDT [facility] Blood Whole blood specimen / Unknown 04/02/2024 7:52 AM EDT 04/02/2024 8:16 AM EDT Min Min Christine RITTER LAB POINT OF CARE TE ST DOCKED DEVICE UNSOLICITED RESULTS Performing Organization Address City/[facility] Co de Phone Number [facility] [address] [place] [address] * (ABNORMAL) PT INR (04/02/2024 6:38 AM EDT) Prothrombin Time 16.0(H) 11.6 - 15.2 seconds 04/02/2024 7:18 AM EDT LAB[facility]ATORY [facility] INR 1.3(H) 0.8 - 1.2 04/02/2024 7:18 AM EDT [facility] Blood Venous blood specimen / Unknown Venipuncture / Unknown 04/02/2024 6:38 AM EDT 04/02/2024 6:55 AM EDT Narrative LAB[facility]ATORY [facility] - 04/02/2024 7:18 AM EDT Warfarin Therapy INR: 2.0-3.0 conventional anticoagulation INR: 2.5-3.5 high intensity anticoagulation Bertin Lopez MD LAB BLOOD ORDERABL ES LABORATORY [facility] [address] [place] [address] * (ABNORMAL) CBC (04/02/2024 6:38 AM EDT) WBC 3.85(L) 4.00 - 10.80 K/uL 04/02/2024 7:05 AM EDT [facility]ATORY [facility] RBC 3.12 4.50 - 5.25 M/uL 04/02/2024 7:05 AM EDT [facility]ORY [facility] HGB 9.4(L) 14.0 - 16.8 g/dL 04/02/2024 7:05 AM EDT [facility]ORY [facility] HCT 27.8(L) 40.0 - 48.4 % 04/02/2024 7:05 AM EDT LAB[facility]ORY [facility] MCV 89.1 82.0 - 99.5 fL 04/02/2024 7:05 AM EDT LAB[facility]ORY [facility] MCH 30.1 27.0 - 34.0 pg 04/02/2024 7:05 AM EDT [facility]ORY [facility] MCHC 33.8 32.0 - 36.0 g/dL 04/02/2024 7:05 AM EDT LAB[facility]ORY [facility] RDW 16.1 11.5 - 15.5 % 04/02/2024 7:05 AM EDT LAB[facility]ATORY [facility] PLT 51(L) 140 - 400 K/uL 04/02/2024 7:05 AM EDT [facility]ORY [facility] MPV 10.9 6.6 - 11.1 fL 04/02/2024 7:05 AM EDT [facility]ORY [facility] nRBCs 1(H) <=0 /100 WBCs 04/02/2024 7:05 AM EDT [facility] Blood Venous blood specimen / Unknown Venipuncture / Unknown 04/02/2024 6:38 AM EDT 04/02/2024 6:55 AM EDT Bertin Lopez MD LAB BLOOD ORDERABL ES Performing Organization Address City/[facility]/ZIP Co de Phone Number LABORATORY [facility] [address] [place] [address] * (ABNORMAL) BASIC METABOLIC PANEL (04/02/2024 6:38 AM EDT) BUN 21(H) 6 - 20 mg/dL 04/02/2024 7:20 AM EDT LAB[facility]ATORY [facility] Creatinine 1.2 0.6 - 1.2 mg/dL 04/02/2024 7:20 AM EDT LAB[facility]ATORY [facility] Estimated Glomerular Filtration Rate 70 >=60 mL/min 04/02/2024 7:20 AM EDT LAB[facility]ORY [facility] Comment:eGFR is calculated b ased on the CKD-EPI 2020 equation Sodium 141 135 - 146 mmol/L 04/02/2024 7:20 AM EDT LAB[facility]ATORY [facility] Potassium 3.9 3.5 - 5.1 mmol/L 04/02/2024 7:20 AM EDT LAB[facility]ORY [facility] Chloride 110(H) 98 - 107 mmol/L 04/02/2024 7:20 AM EDT LAB[facility]ORY [facility] CO2 19(L) 22 - 32 mmol/L 04/02/2024 7:20 AM EDT LAB[facility]ATORY [facility] Anion Gap 12 7 - 15 mmol/L 04/02/2024 7:20 AM EDT LAB[facility]ATORY [facility] Glucose 103 70 - 120 mg/dL 04/02/2024 7:20 AM EDT LAB[facility]ATORY [facility] Calcium 7.9(L) 8.4 - 10.2 mg/dL 04/02/2024 7:20 AM EDT [facility] Blood Venous blood specimen / Unknown Venipuncture / Unknown 04/02/2024 6:38 AM EDT 04/02/2024 6:55 AM EDT Bertin Lopez MD LAB BLOOD ORDERABL ES Performing Organization Address City/[facility]/ZIP Co de Phone Number LABORATORY [facility] [address] [place] [address] * (ABNORMAL) HEMOGLOBIN A1C (04/02/2024 6:38 AM EDT) Hemoglobin A1C 6.1(H) 4.0 - 5.6 % 04/02/2024 1:34 PM EDT LABORATORY [facility] Comment:The use of HbA1c to monitor glycemic status is based on normal hemoglobin and HbA composition. This test should not be used in patients with abnormal hemoglobin that affects the half life of the red blood cell or the in vivo glycation rates. Estimated Average Glucose 128(H) <126 mg/dL 04/02/2024 1:34 PM EDT LABORATORY [facility] Blood Venous blood specimen / Unknown Venipuncture / Unknown 04/02/2024 6:38 AM EDT 04/02/2024 6:55 AM EDT Bertin Lopez MD LAB BLOOD ORDERABL ES LABORATORY [address] [address] * GLUCOSE METER, POINT OF CARE (04/02/2024 6:26 AM EDT) Glucose Meter 92 70 - 120 mg/dL 04/02/2024 6:37 AM EDT [facility] Blood Whole blood specimen / Unknown 04/02/2024 6:26 AM EDT 04/02/2024 6:37 AM EDT Damian Allison DO LAB POINT OF CARE TEST DOCKED DEVICE UNSOLICITED RESULTS Performing Organization Address City/[facility]/ZIP Co de Phone Number [facility] [address] [place] [address] * MRSA SCREEN, PCR (04/01/2024 11:20 PM EDT) MRSA PCR Result Negative Negative 2:32 PM EDT LABORATORY [facility] Comment:No Methicillin resis tant Staphylococcus aureus detected by PCR (amplified probe). Upper Respiratory Swab of internal nose / Unknown Non-blood Collection / Unknown 04/01/2024 11:20 PM EDT 04/01/2024 11:25 PM EDT Bertin Lopez MD LAB MICRO - GENERA L ORDERABLES LABORATORY [facility] [address] [place] [address] * GLUCOSE METER, POINT OF CARE (04/01/2024 10:12 PM EDT) Glucose Meter 108 70 - 120 mg/dL 04/01/2024 10:26 PM EDT [facility] Blood Whole blood specimen / Unknown 04/01/2024 10:12 PM EDT 04/01/2024 10:26 PM EDT Damian Allison DO LAB POINT OF CARE TEST DOCKED DEVICE UNSOLICITED RESULTS Performing Organization Address [facility] Co de Phone Number [facility] [address] [place] [address] * (ABNORMAL) PT INR (04/01/2024 9:03 PM EDT) Prothrombin Time 15.7(H) 11.6 - 15.2 seconds 04/01/2024 9:21 PM EDT LABORATORY [facility] INR 1.2 0.8 - 1.2 04/01/2024 9:21 PM EDT LAB[facility]ATORY [facility] Blood Venous blood specimen / Unknown Venipuncture / Unknown 04/01/2024 9:03 PM EDT 04/01/2024 9:06 PM EDT Narrative LABORATORY [facility] - 04/01/2024 9:21 PM EDT Warfarin Therapy INR: 2.0-3.0 conventional anticoagulation INR: 2.5-3.5 high intensity anticoagulation Beverley SANTOS LAB BLOOD ORDERAB LES Performing Organization Address City/[facility]/ZIP Co de Phone Number LABORATORY [facility] [address] [place] [address] * (ABNORMAL) BASIC METABOLIC PANEL (04/01/2024 9:03 PM EDT) BUN 23(H) 6 - 20 mg/dL 04/01/2024 9:33 PM EDT LAB[facility]ATORY [facility] Creatinine 1.2 0.6 - 1.2 mg/dL 04/01/2024 9:33 PM EDT LAB[facility]ATORY [facility] Estimated Glomerular Filtration Rate 65 >=60 mL/min 04/01/2024 9:33 PM EDT [facility] Comment:eGFR is calculated b ased on the CKD-EPI 2020 equation Sodium 140 135 - 146 mmol/L 04/01/2024 9:33 PM EDT [facility] Potassium 3.9 3.5 - 5.1 mmol/L 04/01/2024 9:33 PM EDT [facility] Chloride 106 98 - 107 mmol/L 04/01/2024 9:33 PM EDT [facility] CO2 19(L) 22 - 32 mmol/L 04/01/2024 9:33 PM EDT [facility] Anion Gap 15 7 - 15 mmol/L 04/01/2024 9:33 PM EDT [facility] Glucose 119 70 - 120 mg/dL 04/01/2024 9:33 PM EDT [facility] Calcium 8.1(L) 8.4 - 10.2 mg/dL 04/01/2024 9:33 PM EDT [facility] Blood Venous blood specimen / Unknown Venipuncture / Unknown 04/01/2024 9:03 PM EDT 04/01/2024 9:06 PM EDT Beverley SANTOS LAB BLOOD ORDERAB LES LABORATORY [facility] [address] [place] [address] * (ABNORMAL) CBC (04/01/2024 9:03 PM EDT) WBC 4.38 4.00 - 10.80 K/uL 04/01/2024 9:09 PM EDT LAB[facility]ATORY [facility] RBC 3.36 4.50 - 5.25 M/uL 04/01/2024 9:09 PM EDT LAB[facility]ORY [facility] HGB 10.3(L) 14.0 - 16.8 g/dL 04/01/2024 9:09 PM EDT LAB[facility] HCT 30.1(L) 40.0 - 48.4 % 04/01/2024 9:09 PM EDT LAB[facility]ATORY [facility] MCV 89.6 82.0 - 99.5 fL 04/01/2024 9:09 PM EDT LABORATORY [facility] MCH 30.7 27.0 - 34.0 pg 04/01/2024 9:09 PM EDT LABORATORY [facility] MCHC 34.2 32.0 - 36.0 g/dL 04/01/2024 9:09 PM EDT LABORATORY [facility] RDW 16.1 11.5 - 15.5 % 04/01/2024 9:09 PM EDT LABORATORY [facility] PLT 43(L) 140 - 400 K/uL 04/01/2024 9:09 PM EDT LABORATORY [facility] MPV 8.9 6.6 - 11.1 fL 04/01/2024 9:09 PM EDT LABORATORY [facility] nRBCs 1(H) <=0 /100 WBCs 04/01/2024 9:09 PM EDT LAB[facility]ATORY [facility] Blood Venous blood specimen / Unknown Venipuncture / Unknown 04/01/2024 9:03 PM EDT 04/01/2024 9:06 PM EDT Beverley SANTOS LAB BLOOD ORDERAB LES LABORATORY [address] [id number] * PHOSPHORUS (04/01/2024 9:03 PM EDT) Phosphorus 3.5 2.5 - 4.8 mg/dL 04/01/2024 9:33 PM EDT LABORATORY [facility] Blood Venous blood specimen / Unknown Venipuncture / Unknown 04/01/2024 9:03 PM EDT 04/01/2024 9:06 PM EDT Beverley SANTOS LAB BLOOD ORDERAB LES LABORATORY [address] [address] * MAGNESIUM (04/01/2024 9:03 PM EDT) Magnesium 2.0 1.5 - 2.6 mg/dL 04/01/2024 9:33 PM EDT LABORATORY [facility] Blood Venous blood specimen / Unknown Venipuncture / Unknown 04/01/2024 9:03 PM EDT 04/01/2024 9:06 PM EDT Beverley SANTOS LAB BLOOD ORDERAB LES Performing Organization Address [facility] Co de Phone Number LABORATORY [address] [phone] * TYPE AND SCREEN (04/01/2024 9:03 PM EDT) ABO A 04/02/2024 1:35 AM EDT LABORATORY [facility] BLOOD BANK Rh Positive 04/02/2024 1:35 AM EDT LAB[facility]ATORY [facility] BLOOD BANK Red Blood Cell Antibody Screen Negative 04/02/2024 1:35 AM EDT LAB[facility]ATORY [facility] BLOOD BANK Specimen Expiration Date 04/04/2024 23:59 04/02/2024 1:35 AM EDT LAB[facility]ATORY [facility] BLOOD BANK Blood Venous blood specimen / Unknown Venipuncture / Unknown 04/01/2024 9:03 PM EDT 04/01/2024 9:06 PM EDT Bertin Lopez MD LAB BLOOD BANK MARIAJOSE T ORDERABLES Performing Organization Address [facility] Co de Phone Number LABORATORY [facility] BLOOD BANK [address] [place] [phone] documented in this encounter Visit Diagnoses Diagnosis Gross hematuria- Primary Gross hematuria Malignant neoplasm metastatic to bone (HCC) 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 Neoplasm related pain (acute) (chronic) Malignant neoplasm metastatic to bone (HCC) Secondary malignant neoplasm of bone and bone marrow Type 2 diabetes mellitus with hemoglobin A1c goal of less than 7.0% (HCC) Tobacco use disorder Stage 3a chronic kidney disease (HCC) Chronic systolic heart failure (HCC) Chronic systolic heart failure Thrombocytopenia (HCC) Thrombocytopenia, unspecified Blood loss anemia Iron deficiency anemia secondary to blood loss (chronic) Prostate cancer metastatic to multiple sites (HCC) Malignant neoplasm of prostate HTN, goal below 130/80 Unspecified essential hypertension Cancer related pain Neoplasm related pain (acute) (chronic) Palliative care encounter Encounter for palliative care Goals of care, counseling/discussion Other specified counseling Severe protein-energy malnutrition (HCC) Other severe protein-calorie malnutrition documented in this encounter Administered Medications Inactive Administered Medications - up to 3 most recent administrations Medication Order MAR Action Action Date Dose Rate Site Acetaminophen (Tylenol) tab 650 mg 650 mg, Oral, Q6H PRN Pain, Mild, Headache, Fever >38C(100.5F), Starting on Sun04/02/24 at 012, Until Sun04/02/24 at 184, Indications: Takes twice daily. atorvaSTATin (Lipitor) tab 80 mg 80 mg, Oral, Q1700, First dose on Sun04/01/24 at 2115, Until Discontinued Given 04/01/2024 10:06 PM EDT 80 mg busPIRone (Buspar) tab 5 mg 5 mg, Oral, TID(AM/NOON/HS), First dose on Sun04/01/24 at 2200, Until Discontinued Given 04/02/2024 11:38 AM EDT 5 mg Given 04/02/2024 5:31 AM EDT 5 mg Given 04/01/2024 10:06 PM EDT 5 mg Calcitriol (Rocaltrol) cap 0.25 mcg 0.25 mcg, Oral, Daily(AM), First dose on Sun04/02/24 at 0900, Until Discontinued Given 04/02/2024 9:48 AM EDT 0.25 mcg CYANOCOBALAMIN (vitamin B-12) tab 1,000 mcg 1,000 mcg, Oral, Daily(AM), First dose on Sun04/02/24 at 0900, Until Discontinued Given 04/02/2024 9:48 AM EDT 1,000 mcg dextrose 50% inj 25 mL 25 mL, IV Push, PRN Hypoglycemia, Other, For blood glucose 54 - 69 mg/dL or 70 - 100 mg/dL with symptoms AND patient is unresponsive, NPO, OR unable to swallow, Starting on Sun04/01/24 at 2030, Until Sun04/02/24 at 184, Administer IV. Recheck blood glucose after 15 minutes. Notify provider. dextrose 50% inj 50 mL 50 mL, IV Push, PRN Hypoglycemia, Other, For blood glucose below 54 mg/dL AND patient unresponsive, NPO, OR unable to swallow, Starting on Sun04/01/24 at 2030, Until Sun04/02/24 at 1842, Administer IV. Recheck blood glucose in 15 minutes. Notify provider. Ferrous Sulfate (Feosol) tab 325 mg 325 mg, Oral, DAILY NOON, First dose on Sun04/02/24 at 1200, Until Discontinued, This med should NOT be Crushed or Chewed Given 04/02/2024 11:38 AM EDT 32 5 mg glucagon (Glucagen) inj 1 mg 1 mg, Intramuscular, PRN Hypoglycemia, Other, If patient is unresponsive, or NPO and has no IV access, Starting on Sun04/01/24 at 2030, Until Sun04/02/24 at 1842, NPO and no IV access with either 1) blood glucose less than 100 mg/dL and symptomatic OR 2) blood glucose less than 70 mg/dL and asymptomatic Glucose (Glutose 15) 40 % gel 15 g of glucose 15 g of glucose, Oral, PRN Hypoglycemia (low sugar), Other, For blood glucose 54 - 69 mg/dL or 70 - 100 mg/dL with symptoms AND patient alert WITH difficulty chewing/swallowing, Starting on Sun04/01/24 at 2030, Until Sun04/02/24 at 1842, Administer gel. Recheck blood glucose after 15 minutes. Notify provider. 37.5 gram tube = 15 grams glucose = 1 each Glucose (Glutose 15) 40 % gel 30 g of glucose 30 g of glucose, Oral, PRN Hypoglycemia (low sugar), Other, For blood glucose below 54 mg/dL AND patient alert WITH difficulty chewing/swallowing, Starting on Sun04/01/24 at 2030, Until Sun04/02/24 at 1842, Administer gel. Recheck blood glucose after 15 minutes. Notify provider. 37.5 gram tube = 15 grams glucose = 1 each glucose chew tab 16 g 16 g, Oral, PRN Hypoglycemia, Other, For blood glucose 54 - 69 mg/dL or 70 - 100 mg/dL with symptoms and patient alert without difficulty chewing/swallowing., Starting on Sun04/01/24 at 2030, Until Sun04/02/24 at 1842 insulin aspart (NovoLOG) inj Subcutaneous, W/MEALS AND HS, First dose on Sun04/01/24 at 2200, Until Discontinued, MEDIUM DOSE (Usual starting dose): Sliding Scale Correctional insulin may be given if the patient is NPO. Dose based on standard build from Insulin Calculator. Do not modify insulin doses in administration instructions!, Glucose less than 70 instructions: Obtain STAT lab blood glucose and call covering provider., Glucose 80-150 (units): 0, Glucose 151-200 (units): 2, Glucose 201-250 (units): 4, Glucose 251-300 (units): 6, Glucose greater than 300 (units): 8, Glucose greater than 300 instructions: Give suggested insulin dose and call covering provider. magnesium chloride ER (Mag-64) tab 64 mg 64 mg, Oral, Daily(AM), First dose on Sun04/02/24 at 0900, Until Discontinued Given 04/02/2024 9:48 AM EDT 64 mg Metoprolol Tartrate (Lopressor) tab 12.5 mg 12.5 mg, Oral, BID (.AM/PM), First dose on Sun04/01/24 at 2115, Until Discontinued, Hold for HR less than 60 or SBP below 100 and notify service if dose is held Given 04/02/2024 9:47 AM EDT 12.5 mg Given 04/01/2024 10:06 PM EDT 12.5 mg Morphine Sulfate (Msir) tab 15 mg 15 mg, Oral, Q4H PRN Pain, Severe, Starting on Sun04/02/24 at 1234, Until Sun04/02/24 at 1843 Given 04/02/2024 2:18 PM EDT 15 mg morphine Sulfate ER (Ms Contin) tab 15 mg 15 mg, Oral, Q12H, First dose on Sun04/01/24 at 2115, Until Discontinued, DO NOT CRUSH Given 04/02/2024 9:48 AM EDT 1 5 mg Given 04/01/2024 11:09 PM EDT 15 mg nicotine (Nicorette) gum 4 mg 4 mg (2 Each), Oral, PRN Withdrawal symptoms, Starting on Sun04/01/24 at 2040, Until Sun04/02/24 at 1843, Do not eat or drink for 15 min before and during use; Do not exceed 24 pieces/24 hours WASTE INFO: Return packaging and waste medication in zip lock bag to pharmacy - [facility] container. ondansetron (Zofran) inj 4 mg 4 mg, IV Push, Q6H PRN Vomiting, Starting on Sun04/02/24 at 0122, Until Sun04/02/24 at 1843 potassium and sodium phosphate (Phos-Nak) oral powder 1 Packet 1 Packet, Oral, Daily(AM), First dose on Sun04/02/24 at 0900, Until Discontinued Given 04/02/2024 9:48 AM EDT 1 Pac ket sodium chloride 0.9 % flush/inj 50 mL 50 mL, IV Push, Q6H, First dose on Sun04/02/24 at 1200, Until Discontinued, Do not flush if lock, PICC, or central line not in place; IV infusing or unable to flush. tamsulosin (Flomax) cap 0.4 mg 0.4 mg, Oral, Daily(AM), First dose on Sun04/02/24 at 0900, Until Discontinued, Administer 30 min after meal. This med should NOT be Crushed or Chewed or opened! ORAL administration only!! Given 04/02/2024 9:48 AM EDT 0.4 mg documented in this encounter Active and Recently Administered Medications Times are shown in EDT. Scheduled Medication Order 03/31/2024 04/01/2024 04/02/2024 atorvaSTATin (Lipitor) tab 80 mg 80 mg, Oral, Q1700, First dose on Sun04/01/24 at 2115, Until Discontinued 2205 (Given - Provider: Renetta Campos, AMANDA) busPIRone (Buspar) tab 5 mg 5 mg, Oral, TID(AM/NOON/HS), First dose on Sun04/01/24 at 2200, Until Discontinued 2205 (Given - Provider: Renetta Campos, AMANDA) 0531 (Given - Provider: Renetta Campos, AMANDA)1138 (Given - Provider: Sylvia Zimmer, RN) Calcitriol (Rocaltrol) cap 0.25 mcg 0.25 mcg, Oral, Daily(AM), First dose on Sun04/02/24 at 0900, Until Discontinued 09 (Given - Provid er: Sylvia Zimmer, AMANDA) calcium CARBonate (Tums E-X) tab CHEW 750 mg 750 mg, Oral, DAILY NOON, First dose on Sun04/02/24 at 1200, Until Discontinued 113 (Not Given - Provider: Sylvia Zimmer RN - Reason: Refused-Notify Provider) CYANOCOBALAMIN (vitamin B-12) tab 1,000 mcg 1,000 mcg, Oral, Daily(AM), First dose on Sun04/02/24 at 0900, Until Discontinued 947 (Given - Provid er: Sylvia Zimmer RN) Ferrous Sulfate (Feosol) tab 325 mg 325 mg, Oral, DAILY NOON, First dose on Sun04/02/24 at 1200, Until Discontinued, This med should NOT be Crushed or Chewed 1138 (Given - Provid er: Sylvia Zimmer RN) insulin aspart (NovoLOG) inj Subcutaneous, W/MEALS AND HS, First dose on Sun04/01/24 at 2200, Until Discontinued, MEDIUM DOSE (Usual starting dose): Sliding Scale Correctional insulin may be given if the patient is NPO. Dose based on standard build from Insulin Calculator. Do not modify insulin doses in administration instructions!, Glucose less than 70 instructions: Obtain STAT lab blood glucose and call covering provider., Glucose 80-150 (units): 0, Glucose 151-200 (units): 2, Glucose 201-250 (units): 4, Glucose 251-300 (units): 6, Glucose greater than 300 (units): 8, Glucose greater than 300 instructions: Give suggested insulin dose and call covering provider. 2200 (Not Given - Provider: Renetta Campos RN - Reason: Parameter(s) Not Met) 0800 (Not Given - Provider: Sylvia Zimmer RN - Reason: Parameter(s) Not Met)1200 (Not Given - Provider: Sylvia Zimmer RN - Reason: Parameter(s) Not Met) magnesium chloride ER (Mag-64) tab 64 mg 64 mg, Oral, Daily(AM), First dose on Sun04/02/24 at 0900, Until Discontinued 947 (Given - Provid er: Sylvia Zimmer RN) Metoprolol Tartrate (Lopressor) tab 12.5 mg 12.5 mg, Oral, BID (.AM/PM), First dose on Sun04/01/24 at 2115, Until Discontinued, Hold for HR less than 60 or SBP below 100 and notify service if dose is held 2205 (Given - Provider: Renetta Campos RN) 946 (Given - Provider: Sylvia Goran, RN) morphine Sulfate ER (Ms Contin) tab 15 mg 15 mg, Oral, Q12H, First dose on Sun04/01/24 at 2115, Until Discontinued, DO NOT CRUSH 230 (Given - Provider: Renetta Campos RN) 0948 (Given - Provider: Sylvia Zimmer RN) potassium and sodium phosphate (Phos-Nak) oral powder 1 Packet 1 Packet, Oral, Daily(AM), First dose on Sun04/02/24 at 0900, Until Discontinued 0948 (Given - Provid er: Sylvia Zimmer RN) sodium chloride 0.9 % flush/inj 50 mL 50 mL, IV Push, Q6H, First dose on Sun04/02/24 at 1200, Until Discontinued, Do not flush if lock, PICC, or central line not in place; IV infusing or unable to flush. 1200 (Not Given - Provider: Sylvia Zimmer RN - Reason: Order Clarified - Comment: flushed rain catheter) tamsulosin (Flomax) cap 0.4 mg 0.4 mg, Oral, Daily(AM), First dose on Sun04/02/24 at 0900, Until Discontinued, Administer 30 min after meal. This med should NOT be Crushed or Chewed or opened! ORAL administration only!! 48 (Given - Provid er: Sylvia Zimmer RN) PRN Medication Order 03/31/2024 04/01/2024 04/02/2024 Acetaminophen (Tylenol) tab 650 mg 650 mg, Oral, Q6H PRN Pain, Mild, Headache, Fever >38C(100.5F), Starting on Sun04/02/24 at 012, Until Sun04/02/24 at 184, Indications: Takes twice daily. dextrose 50% inj 25 mL 25 mL, IV Push, PRN Hypoglycemia, Other, For blood glucose 54 - 69 mg/dL or 70 - 100 mg/dL with symptoms AND patient is unresponsive, NPO, OR unable to swallow, Starting on Sun04/01/24 at 203, Until Sun04/02/24 at 1842, Administer IV. Recheck blood glucose after 15 minutes. Notify provider. dextrose 50% inj 50 mL 50 mL, IV Push, PRN Hypoglycemia, Other, For blood glucose below 54 mg/dL AND patient unresponsive, NPO, OR unable to swallow, Starting on Sun04/01/24 at 2030, Until Sun04/02/24 at 1842, Administer IV. Recheck blood glucose in 15 minutes. Notify provider. glucagon (Glucagen) inj 1 mg 1 mg, Intramuscular, PRN Hypoglycemia, Other, If patient is unresponsive, or NPO and has no IV access, Starting on Sun04/01/24 at 2030, Until Sun04/02/24 at 1842, NPO and no IV access with either 1) blood glucose less than 100 mg/dL and symptomatic OR 2) blood glucose less than 70 mg/dL and asymptomatic Glucose (Glutose 15) 40 % gel 15 g of glucose 15 g of glucose, Oral, PRN Hypoglycemia (low sugar), Other, For blood glucose 54 - 69 mg/dL or 70 - 100 mg/dL with symptoms AND patient alert WITH difficulty chewing/swallowing, Starting on Sun04/01/24 at 2030, Until Sun04/02/24 at 1842, Administer gel. Recheck blood glucose after 15 minutes. Notify provider. 37.5 gram tube = 15 grams glucose = 1 each Glucose (Glutose 15) 40 % gel 30 g of glucose 30 g of glucose, Oral, PRN Hypoglycemia (low sugar), Other, For blood glucose below 54 mg/dL AND patient alert WITH difficulty chewing/swallowing, Starting on Sun04/01/24 at 2030, Until Sun04/02/24 at 1842, Administer gel. Recheck blood glucose after 15 minutes. Notify provider. 37.5 gram tube = 15 grams glucose = 1 each glucose chew tab 16 g 16 g, Oral, PRN Hypoglycemia, Other, For blood glucose 54 - 69 mg/dL or 70 - 100 mg/dL with symptoms and patient alert without difficulty chewing/swallowing., Starting on Sun04/01/24 at 2030, Until Sun04/02/24 at 1842 Morphine Sulfate (Msir) tab 15 mg 15 mg, Oral, Q4H PRN Pain, Severe, Starting on Sun04/02/24 at 1234, Until Sun04/02/24 at 1842 1418 (Given - Provid er: Diane Win RN) nicotine (Nicorette) gum 4 mg 4 mg (2 Each), Oral, PRN Withdrawal symptoms, Starting on Sun04/01/24 at 2040, Until Sun04/02/24 at 1843, Do not eat or drink for 15 min before and during use; Do not exceed 24 pieces/24 hours WASTE INFO: Return packaging and waste medication in zip lock bag to pharmacy - [facility] container. ondansetron (Zofran) inj 4 mg 4 mg, IV Push, Q6H PRN Vomiting, Starting on Sun04/02/24 at 0122, Until Sun04/02/24 at 1843 prochlorperazine (Compazine) tab 10 mg 10 mg, Oral, Q6H PRN Nausea, Starting on Sun04/01/24 at 2028, Until Sun04/02/24 at 1843 documented in this encounter Advance Directives * [...] Name Relationship Healthcare Agent Relationship Communication Brittaney Virgen Spouse Health Care Re presentative (appointed verbally by patient or by statute hierarchy) Care Teams Cloth Bale Header Relationship Specialty Start Date End Date Dru Fritz MD [address] [place] [address] PCP - General Family Medicine 01/24/21 documented as of this encounter
--- OUTSIDE RECORDS SUMMARY | 2024-04-09 18:25 | External Medical Summary | Summary of Care ---
Author Name Unknown Organization [facility] Address [address] [place] [address] Phone [phone] Care Team Providers Care Currency Machine Operator Name Role Phone Dru Fritz MD Primary Care Provider [phone] [phone] Encounter Details Date Type Department Care Team (Late st Contact Info) Description 02/23/2024 Orders Only Hematology/Oncology Valentín Melara [place] 200 [facility] [place] [address] Elio Queen MD [address] [facility] [address] Allergies Active Allergy Reactions Criticality Noted Date Comments Amoxicillin-Pot Clavulanate 05/17/20 22 Dizziness and confused documented as of this encounter (statuses as of 04/02/2024) Medications Medication Sig Dispensed Refills Start Date End Date Status eTipping SYSTEM W/DEVICE KITIndications:DM type 2, goal A1c [...] No 03/06/2024 Does the household have a [facility] source [facility] income? (Household [...] 04/16/2024 11:45 AM EDT Office Visit Urology, [facility] 132 [facility] [place] [address] Isaías Novak MD [address] [place] [address] 04/18/2024 1:15 PM EDT Office Visit Hematology/Oncology [facility] 200 [facility] [place] [phone] Elio Queen MD 200 [facility] [place] [address] 05/08/2024 11:00 AM EDT Laboratory Laboratory [facility] 200 [facility] [place] [phone] [place], Lab [address] [place] [address] 05/08/2024 11:45 AM EDT Immunization[facility]io n [facility] [phone] Nurse, Med 200 [facility] [place] [address] 05/20/2024 2:15 PM EDT Office Visit Urology [facility] 132 [facility] [place] [address] Isaías Novak MD [address] [place] [id number] 07/01/2024 4:00 PM EDT Office Visit Family Practice [facility] [address] [place] [address] Dru Fritz MD [address] [place] [address] Health Maintenance Due Date Last Done Comments DISCUSS TOBACCO CESSATION (REFER TO SMARTSET #8884) 1959 COVID-19 Vaccine (#1) 1964 Pneumococcal Vaccine: [...] Screening 03/06/2025 03/06/2024 CKD PHOS USE SMARTSET 04810 04/01/2025 07/0 11/2023, 03/11/2024, 03/06/2024, Additional history exists CKD HGB USE SMARTSET 44953 04/02/202504/02, 04/01/2024, 03/11/2024, Additional history exists HPV [...] this encounter Medical Devices Implanted Type Area Belt Repairer Device Identifier Shelf Expiration Date Model / Serial / Lot Stent Trnscarotid Enroute 7x40 - [id number] Implanted:Qty: 1 on 01/25/2021 by Zeinab Robert MD at [facility] Left: [facility] [id number] 05/31/2023 SR-0740-C S / / [id number] documented as of this encounter Procedures Procedure [...] interpreted or resulted by a [facility] or [facility] contracted radiologist. Elio Queen MD RAD ULTRASOUND [...] patient or by statute hierarchy) Care Teams Currency Machine Operator Relationship Specialty Start Date End Date Dru Fritz MD [address] [place] [address] PCP - General Family Medicine 01/24/21 documented as of this encounter
--- OUTSIDE RECORDS SUMMARY | 2024-04-09 18:26 | External Medical Summary ---
Author Name Unknown Address Unknown Organization K1F:LABORATORY [facility] - [address] [place] [address] Laboratory Report Ordering Provider Test Date Status KACY HAYES 04/02/2024 06:38:00 Final Observation Date Value Abnormality Reference (Units ) Status BUN 04/02/2024 06:38:00 21 Above high normal 6-20 (mg/dL) Final Creatinine 04/02/2024 06:38:00 1.2 0.6-1.2 (mg/dL) Final Glomerular filtration rate/1.73 sq M.predicted [Volume Rate/Area] in Serum, Plasma or Blood by Creatinine-based formula (CKD-EPI) 04/02/2024 06:38:00 70 >=60 (mL/min) Final eGFR is calculated based on the CKD-EPI 2020 equation Sodium 04/02/2024 06:38:00 141 135-146 (m mol/L) Final Potassium 04/02/2024 06:38:00 3.9 3.5-5.1 (m mol/L) Final Cl 04/02/2024 06:38:00 110 Above high normal 98 -107 (mmol/L) Final CO2 04/02/2024 06:38:00 19 Below low normal 22- 32 (mmol/L) Final Anion gap 04/02/2024 06:38:00 12 7-15 (mmol /L) Final Glucose 04/02/2024 06:38:00 103 70-120 (mg /dL) Final Calcium 04/02/2024 06:38:00 7.9 Below low normal 8.4 -10.2 (mg/dL) Final Performing Location LABORATORY [facility] - [address] [place] [address]
--- OUTSIDE RECORDS SUMMARY | 2024-04-09 18:26 | External Medical Summary ---
Author Name Unknown Address Unknown Organization : Laboratory Report Ordering Provider Test Date Status MASON LOW 04/02/2024 11:26:59 Final Observation Date Value Abnormality Reference (Units ) Status Glucose Point of Care 04/02/2024 11:26:59 105 70-120 (mg/dL) Final Performing Location
--- OUTSIDE RECORDS SUMMARY | 2024-04-09 18:26 | External Medical Summary | Summary of Care ---
Author Name Unknown Organization [facility] Address [address] [place] [address] Phone [phone] Care Team Providers Care Military Science Instructor Name Role Phone Dru Fritz MD Primary Care Provider [phone] [phone] Encounter Details Date Type Department Care Team (Late st Contact Info) Description 02/23/2024 Orders Only Hematology/Oncology Valentín Melara [place] 200 [facility] [place] [address] Elio Queen MD [address] [facility] [address] Allergies Active Allergy Reactions Criticality Noted Date Comments Amoxicillin-Pot Clavulanate 05/17/20 22 Dizziness and confused documented as of this encounter (statuses as of 04/02/2024) Medications Medication Sig Dispensed Refills Start Date End Date Status [employer] SYSTEM W/DEVICE KITIndications:DM type 2, goal A1c [...] 04/16/2024 11:45 AM EDT Office Visit Urology, [facility] 132 [facility] [place] [address] Isaías Novak MD [address] [place] [address] 04/18/2024 1:15 PM EDT Office Visit Hematology/Oncology [facility] 200 [facility] [place] [phone] Elio Queen MD 200 [facility] [place] [address] 05/08/2024 11:00 AM EDT Laboratory Laboratory [facility] 200 [facility] [place] [phone] [place], Lab [address] [place] [address] 05/08/2024 11:45 AM EDT Immunization[facility]io n [facility] 200 [facility] [phone] Nurse, Med 200 [facility] [place] [address] 05/20/2024 2:15 PM EDT Office Visit Urology [facility] [address] [facility] [place] [address] Isaías Novak MD [address] [place] [id number] 07/01/2024 4:00 PM EDT Office Visit Family Practice [facility] [address] [address] Dru Fritz MD [address] [place] [address] Health Maintenance Due Date Last Done Comments DISCUSS TOBACCO CESSATION (REFER TO SMARTSET #3808) 1959 COVID-19 Vaccine (#1) 1964 Pneumococcal Vaccine: [...] Screening 03/06/2025 03/06/2024 CKD PHOS USE SMARTSET 55965 04/01/2025 07/0 11/2023, 03/11/2024, 03/06/2024, Additional history exists CKD HGB USE SMARTSET 11212 04/02/202504/02, 04/01/2024, 03/11/2024, Additional history exists HPV [...] this encounter Medical Devices Implanted Type Area Shiftman Device Identifier Shelf Expiration Date Model / Serial / Lot Stent Trnscarotid Enroute 7x40 - [id number] Implanted:Qty: 1 on 01/25/2021 by Zeinab Robert MD at [facility] Left: Carotid [facility] [id number] 05/31/2023 SR-0740-C S / / [id number] documented as of this encounter Procedures Procedure [...] interpreted or resulted by a [facility] or [employer] contracted radiologist. Elio Queen MD RAD CT [...] patient or by statute hierarchy) Care Teams Military Science Instructor Relationship Specialty Start Date End Date Dru Fritz MD [address] [place] [address] PCP - General Family Medicine 01/24/21 documented as of this encounter
--- OUTSIDE RECORDS SUMMARY | 2024-04-09 18:26 | External Medical Summary | Summary of Care ---
Author Name Unknown Organization [facility] Address [address] [place] [address] Phone [phone] Care Team Providers Care Md Pediatric Allergist Name Role Phone Dru Fritz MD Primary Care Provider [phone] [phone] Encounter Details Date Type Department Care Team (Late st Contact Info) Description 02/18/2024 Orders Only Hematology/Oncology Valentín Melara [place] 200 [facility] [place] [address] Elio Queen MD [address] [facility] [address] Allergies Active Allergy Reactions Criticality Noted Date Comments Amoxicillin-Pot Clavulanate 05/17/20 22 Dizziness and confused documented as of this encounter (statuses as of 04/02/2024) Medications Medication Sig Dispensed Refills Start Date End Date Status [employer] SYSTEM W/DEVICE KITIndications:DM type 2, goal A1c [...] 03/06/2024 Does the household have a [facility] source of income? (Household - for ages [...] 04/16/2024 11:45 AM EDT Office Visit Urology, [facility] 132 [facility] [place] [address] Isaías Novak MD [address] [place] [address] 04/18/2024 1:15 PM EDT Office Visit Hematology/Oncology [facility] 200 [facility] [place] [phone] Elio Queen MD 200 [facility] [place] [address] 05/08/2024 11:00 AM EDT Laboratory Laboratory [facility] 200 [facility] [place] [phone] [place], Lab [address] [place] [address] 05/08/2024 11:45 AM EDT Immunization/Injectio n [facility] 200 [facility] [phone] Nurse, Med 200 [facility] [place] [address] 05/20/2024 2:15 PM EDT Office Visit Urology [facility] 132 [facility] [place] [address] Isaías Novak MD [address] [place] [phone] 07/01/2024 4:00 PM EDT Office Visit Family Practice [facility] [address] [place] [address] Dru Fritz MD [address] [place] [address] Health Maintenance Due Date Last Done Comments DISCUSS TOBACCO CESSATION (REFER TO SMARTSET #1310) 1960 COVID-19 Vaccine (#1) 1964 Pneumococcal Vaccine: [...] Screening 03/06/2025 03/06/2024 CKD PHOS USE SMARTSET 71969 04/01/2025 07/0 11/2023, 03/11/2024, 03/06/2024, Additional history exists CKD HGB USE SMARTSET 27759 04/02/202504/02, 04/01/2024, 03/11/2024, Additional history exists HPV [...] encounter Medical Devices Implanted Type Area [employer] [place] Device Identifier Shelf Expiration Date Model / Serial / Lot Stent Trnscarotid Enroute 7x40 - [id number] Implanted:Qty: 1 on 01/25/2021 by Zeinab Robert MD at [facility] Left: Carotid [facility] [id number] 05/31/2023 SR-0740-C S / / [id number] documented as of this encounter Procedures Procedure [...] interpreted or resulted by a [facility] or [employer] contracted radiologist. Elio Queen MD RAD FLUOROSCOPY [...] patient or by statute hierarchy) Care Teams Md Pediatric Allergist Relationship Specialty Start Date End Date Dru Fritz MD [address] [address] PCP - General Family Medicine 01/24/21 documented as of this encounter
--- OUTSIDE RECORDS SUMMARY | 2024-04-09 18:26 | External Medical Summary ---
Author Name Unknown Address Unknown Organization : Laboratory Report Ordering Provider Test Date Status MASON LOW 04/02/2024 07:52:28 Final Observation Date Value Abnormality Reference (Units ) Status Glucose Point of Care 04/02/2024 07:52:28 102 70-120 (mg/dL) Final Performing Location
--- OUTSIDE RECORDS SUMMARY | 2024-04-09 18:26 | External Medical Summary | Summary of Care ---
Author Name Unknown Organization [facility] Address [address] [place] [address] Phone [phone] Care Team Providers Care Engineering Systems Analyst Name Role Phone Dru Fritz MD Primary Care Provider [phone] [phone] Encounter Details Date Type Department Care Team (Late st Contact Info) Description 02/27/2024 Orders Only Hematology/Oncology Valentín Melara [place] 200 [facility] [place] [address] Elio Queen MD [address] [facility] [address] Allergies Active Allergy Reactions Criticality Noted Date Comments Amoxicillin-Pot Clavulanate 05/17/20 22 Dizziness and confused documented as of this encounter (statuses as of 04/02/2024) Medications Medication Sig Dispensed Refills Start Date End Date Status [employer] SYSTEM W/DEVICE KITIndications:DM type 2, goal A1c [...] No 03/06/2024 Does the household have a [facility] source of income? (Household - for [...] Office Visit Urology, [facility] 132 [facility] [place] [address] Isaías Novak MD [address] [place] [address] 04/18/2024 1:15 PM EDT Office Visit Hematology/[facility] 200 [facility] [place] [phone] Elio Queen MD 200 [facility] [place] [address] 05/08/2024 11:00 AM EDT Laboratory [facility] 200 [facility] [place] [phone] [place], Lab [address] [place] [address] 05/08/2024 11:45 AM EDT Immunization[facility]jectio n [facility] 200 [facility] [phone] Nurse, Med 200 [facility] [place] [address] 05/20/2024 2:15 PM EDT Office Visit Urology [facility] 132 [facility] [place] [address] Isaías Novak MD [address] [place] [phone] 07/01/2024 4:00 PM EDT Office Visit Family Practice [facility] [address] [address] Dru Fritz MD [address] [place] [address] Health Maintenance Due Date Last Done Comments DISCUSS TOBACCO CESSATION (REFER TO SMARTSET #2488) 1960 COVID-19 Vaccine (#1) 1965 Pneumococcal Vaccine: [...] Screening 03/06/2025 03/06/2024 CKD PHOS USE SMARTSET 64677 04/01/2025 07/0 11/2023, 03/11/2024, 03/06/2024, Additional history exists CKD HGB USE SMARTSET 45859 04/02/202504/02, 04/01/2024, 03/11/2024, Additional history exists HPV [...] this encounter Medical Devices Implanted Type Area Ekg Monitor Device Identifier Shelf Expiration Date Model / Serial / Lot Stent Trnscarotid Enroute 7x40 - [id number] Implanted:Qty: 1 on 01/25/2021 by Zeinab Robert MD at [facility] Left: Carotid [facility] [id number] 05/31/2023 SR-0740-C S / / [id number] documented as of this encounter Procedures Procedure [...] interpreted or resulted by a [facility] or [employer] contracted radiologist. Elio Queen MD RAD CT [...] patient or by statute hierarchy) Care Teams Engineering Systems Analyst Relationship Specialty Start Date End Date Dru Fritz MD [address] [place] [address] PCP - General Family Medicine 01/24/21 documented as of this encounter
--- OUTSIDE RECORDS SUMMARY | 2024-04-09 18:26 | External Medical Summary | Summary of Care ---
Author Name Unknown Organization [facility] Address [address] [facility] [place] [address] Phone [phone] Care Team Providers Care Bsw Name Role Phone Dru Fritz MD Primary Care Provider [phone] [phone] Encounter Details Date Type Department Care Team (Late st Contact Info) Description 04/02/2024 Population Health External Data Unspecified Department Allergies Active Allergy Reactions Criticality Noted Date Comments Amoxicillin-Pot Clavulanate 05/17/20 22 Dizziness and confused documented as of this encounter (statuses as of 04/02/2024) Medications Medication Sig Dispensed Refills Start Date End Date Status [employer] SYSTEM W/DEVICE KITIndications:DM type 2, goal A1c [...] 02/12/2024 Suspended Additional Information Ergocalciferol 1.25 MG (13302 UT) Oral Capsule (Vitamin D2(Drisdol)) Take 1 [...] daily 30 Tablet 03/10/2024 Suspended Additional Information Morphine Sulfate 15 MG Oral Tablet (Msir) take 1 tablet (15 mg )orally twice a day As Needed for pain 10 Tablet 03/28/2024 Suspended Additional Information documented as of this [...] money to buy more. Never true 03/06/20 Within the past 12 months, t he [...] 04/16/2024 11:45 AM EDT Office Visit Urology, [facility] 132 [facility] [place] [address] Isaías Novak MD [address] [place] [address] 04/18/2024 1:15 PM EDT Office Visit Hematology/Oncology Valentín Melara [place] [address] [place] [address] Elio Queen MD [address] [place] [address] 05/08/2024 11:00 AM EDT Laboratory Laboratory [facility] [place] [address] [place] [phone] [place], Lab [address] [place] [address] 05/08/2024 11:45 AM EDT Immunization/Injectio n Hematology/Oncology Treatment, [place] [address] [place] [phone] Nurse, Med 4 [address] [place] [address] 05/20/2024 2:15 PM EDT Office Visit Urology, [facility] 132 [place] [address] Isaías Novak MD 27 [facility] [place] [phone] 07/01/2024 4:00 PM EDT Office Visit Family Practice [facility] 132 [facility] [place] [address] Dru Fritz MD 132 [place] [address] Health Maintenance Due Date Last Done Comments DISCUSS TOBACCO CESSATION (REFER TO SMARTSET #1755) 1960 COVID-19 Vaccine (#1) 1965 Pneumococcal Vaccine: [...] 12/14/2023, 12/30, 05/15/2022, Additional history exists GFR 10/02/2024 04/02/2024, 07/11/2023, 03/11/2024, Additional history exists Depression Screening 03/06/2025 03/06/2024 CKD PHOS USE SMARTSET 02889 04/01/2025 07/0 11/2023, 03/11/2024, 03/06/2024, Additional history exists CKD HGB USE SMARTSET 92703 04/02/202504/02, 04/01/2024, 03/11/2024, Additional history exists HPV [...] this encounter Medical Devices Implanted Type Area Drafter Commercial Device Identifier Shelf Expiration Date Model / Serial / Lot Stent Trnscarotid Enroute 7x40 - [id number] Implanted:Qty: 1 on 01/25/2021 by Zeinab Robert MD at [facility] Left: [facility] [id number] 05/31/2023 SR-0740-C S / / [id number] documented as of this encounter Advance Directives [...] patient or by statute hierarchy) Care Teams Bsw Relationship Specialty Start Date End Date Dru Fritz MD [address] [place] [address] PCP - General Family Medicine 01/24/21 documented as of this encounter
--- OUTSIDE RECORDS SUMMARY | 2024-04-09 18:26 | External Medical Summary | Summary of Care ---
Author Name Unknown Organization [facility] Address [address] [place] [address] Phone [phone] Care Team Providers Care Railcar Foreman Name Role Phone Dru Fritz MD Primary Care Provider [phone] [phone] Encounter Details Date Type Department Care Team (Late st Contact Info) Description 03/29/2024 Orders Only Hematology/Oncology Valentín Melara [place] 200 [facility] [place] [phone] Elio Queen MD 200 [facility] [address] Allergies Active Allergy Reactions Criticality Noted Date Comments Amoxicillin-Pot Clavulanate 05/17/20 22 Dizziness and confused documented as of this encounter (statuses as of 04/02/2024) Medications Medication Sig Dispensed Refills Start Date End Date Status ITM Software SYSTEM W/DEVICE KITIndications:DM type 2, goal A1c [...] 02/12/2024 Suspended Additional Information Ergocalciferol 1.25 MG (91569 UT) Oral Capsule (Vitamin D2(Drisdol)) Take 1 [...] 04/16/2024 11:45 AM EDT Office Visit Urology, [facility] 132 [facility] [place] [address] Isaías Novak MD [address] [place] [id number] 04/18/2024 1:15 PM EDT Office Visit Hematology/Oncology [facility] [address] [place] [address] Elio Queen MD [address] [place] [address] 05/08/2024 11:00 AM EDT Laboratory Laboratory [facility] [place] [address] [place] [phone] [place], Lab Scenery 200 [facility] [place] [address] 05/08/2024 11:45 AM EDT Immunization/Injectio n Hematology/Oncology Treatment, [place] [address] [place] [phone] Nurse, Med 200 [facility] [place] [address] 05/20/2024 2:15 PM EDT Office Visit Urology, [facility] [address] [place] [address] Isaías Novak MD [address] [place] [address] 07/01/2024 4:00 PM EDT Office Visit Family Practice [facility] [address] [place] [address] Dru Fritz MD 132 [facility] [place] [address] Health Maintenance Due Date Last Done Comments DISCUSS TOBACCO CESSATION (REFER TO SMARTSET #8482) 1960 COVID-19 Vaccine (#1) 1965 Pneumococcal Vaccine: [...] Screening 03/06/2025 03/06/2024 CKD PHOS USE SMARTSET 63725 04/01/2025 07/0 11/2023, 03/11/2024, 03/06/2024, Additional history exists CKD HGB USE SMARTSET 53840 04/02/202504/02, 04/01/2024, 03/11/2024, Additional history exists HPV [...] encounter Medical Devices Implanted Type Area Rn Pool Device Identifier Shelf Expiration Date Model / Serial / Lot Stent Trnscarotid Enroute 7x40 - [id number] Implanted:Qty: 1 on 01/25/2021 by Zeinab Robert MD at [facility] Left: [facility] [id number] 05/31/2023 SR-0740-C S / / [id number] documented as of this encounter Procedures Procedure [...] interpreted or resulted by a [facility] or [facility] contracted radiologist. Elio Queen MD RAD CT [...] patient or by statute hierarchy) Care Teams Railcar Foreman Relationship Specialty Start Date End Date Dru Fritz MD 132 [facility] [place] [address] PCP - General Family Medicine 01/24/21 documented as of this encounter
--- OUTSIDE RECORDS SUMMARY | 2024-04-09 18:26 | External Medical Summary | Summary of Care ---
Author Name Unknown Organization [facility] Address [address] [place] [address] Phone [phone] Care Team Providers Care Resource Center Teacher Name Role Phone Dru Fritz MD Primary Care Provider [phone] [phone] Encounter Details Date Type Department Care Team (Late st Contact Info) Description 02/17/2024 Orders Only Hematology/Oncology Valentín Melara [place] 200 [facility] [place] [address] Elio Queen MD [address] [facility] [address] Allergies Active Allergy Reactions Criticality Noted Date Comments Amoxicillin-Pot Clavulanate 05/17/20 22 Dizziness and confused documented as of this encounter (statuses as of 04/02/2024) Medications Medication Sig Dispensed Refills Start Date End Date Status [employer] SYSTEM W/DEVICE KITIndications:DM type 2, goal A1c [...] No 03/06/2024 Does the household have a [facility] source of income? (Household - for [...] 04/16/2024 11:45 AM EDT Office Visit Urology, [facility] 132 [facility] [place] [address] Isaías Novak MD [address] [place] [address] 04/18/2024 1:15 PM EDT Office Visit Hematology/Oncology [facility] 200 [place] [phone] Elio Queen MD 200 [place] [address] 05/08/2024 11:00 AM EDT Laboratory Laboratory [facility] 200 [facility] [place] [phone] [place], Lab [address] [place] [address] 05/08/2024 11:45 AM EDT Immunization[facility] 200 [facility] [phone] Nurse, Med 200 [facility] [place] [address] 05/20/2024 2:15 PM EDT Office Visit Urology [facility] 132 [facility] [place] [address] Isaías Novak MD [address] [place] [phone] 07/01/2024 4:00 PM EDT Office Visit Family Practice [facility] [address] [place] [address] Dru Fritz MD [address] [place] [address] Health Maintenance Due Date Last Done Comments DISCUSS TOBACCO CESSATION (REFER TO SMARTSET #0747) 1960 COVID-19 Vaccine (#1) 1965 Pneumococcal Vaccine: [...] Screening 03/06/2025 03/06/2024 CKD PHOS USE SMARTSET 52110 04/01/2025 07/0 11/2023, 03/11/2024, 03/06/2024, Additional history exists CKD HGB USE SMARTSET 99516 04/02/202504/02, 04/01/2024, 03/11/2024, Additional history exists HPV [...] this encounter Medical Devices Implanted Type Area Managing Editor Device Identifier Shelf Expiration Date Model / Serial / Lot Stent Trnscarotid Enroute 7x40 - [id number] Implanted:Qty: 1 on 01/25/2021 by Zeinab Robert MD at [facility] Left: [facility] [id number] 05/31/2023 SR-0740-C S / / [id number] documented as of this encounter Procedures Procedure [...] interpreted or resulted by a [facility] or [facility] contracted radiologist. Elio Queen MD RAD ULTRASOUND [...] patient or by statute hierarchy) Care Teams Resource Center Teacher Relationship Specialty Start Date End Date Dru Fritz MD 132 [place] [address] PCP - General Family Medicine 01/24/21 documented as of this encounter
--- OUTSIDE RECORDS SUMMARY | 2024-04-09 18:26 | External Medical Summary | Summary of Care ---
Author Name Unknown Organization [facility] Address [address] [place] [address] Phone [phone] Care Team Providers Care Civil Designer Name Role Phone Dru Fritz MD Primary Care Provider [phone] Encounter Details Date Type Department Care Team (Late st Contact Info) Description 03/24/2024 Orders Only Hematology/Oncology Valentín Melara [place] 200 [facility] [place] [address] Elio Queen MD 200 [facility] [address] Allergies Active Allergy Reactions Criticality Noted Date Comments Amoxicillin-Pot Clavulanate 05/17/20 22 Dizziness and confused documented as of this encounter (statuses as of 04/02/2024) Medications Medication Sig Dispensed Refills Start Date End Date Status [employer] SYSTEM W/DEVICE KITIndications:DM type 2, goal A1c [...] 02/12/2024 Suspended Additional Information Ergocalciferol 1.25 MG (74099 UT) Oral Capsule (Vitamin D2(Drisdol)) Take 1 [...] EDT Office Visit Urology, [facility] [place] [address] Isaías Novak MD [address] [place] [address] 04/18/2024 1:15 PM EDT Office Visit Hematology/Oncology [facility] [place] [address] [place] [phone] Elio Queen MD [address] [place] [address] 05/08/2024 11:00 AM EDT Laboratory Laboratory [facility] [place] [address] [place] [phone] [place], Lab [facility] 200 [facility] [place] [address] 05/08/2024 11:45 AM EDT Immunization/Injectio n Hematology/Oncology Treatment, [place] [address] [place], [place] [phone] Nurse, Med 200 [facility] [place] [address] 05/20/2024 2:15 PM EDT Office Visit Urology, [facility] 132 [facility] [place] [address] Isaías Novak MD [address] [place] [address] 07/01/2024 4:00 PM EDT Office Visit Family Practice [facility] 132 [facility] [place] [address] Dru Fritz MD 132 [facility] [place] [address] Health Maintenance Due Date Last Done Comments DISCUSS TOBACCO CESSATION (REFER TO SMARTSET #7680) 1960 COVID-19 Vaccine (#1) 1965 Pneumococcal Vaccine: [...] Screening 03/06/2025 03/06/2024 CKD PHOS USE SMARTSET 39392 04/01/2025 07/0 11/2023, 03/11/2024, 03/06/2024, Additional history exists CKD HGB USE SMARTSET 34803 04/02/202504/02, 04/01/2024, 03/11/2024, Additional history exists HPV [...] this encounter Medical Devices Implanted Type Area Analytics Architect Device Identifier Shelf Expiration Date Model / Serial / Lot Stent Trnscarotid Enroute 7x40 - [id number] Implanted:Qty: 1 on 01/25/2021 by Zeinab Robert MD at [facility] Left: [facility] [id number] 05/31/2023 SR-0740-C S / / [id number] documented as of this encounter Procedures Procedure [...] patient or by statute hierarchy) Care Teams Civil Designer Relationship Specialty Start Date End Date Dru Fritz MD 132 [place] [address] PCP - General Family Medicine 01/24/21 documented as of this encounter
--- OUTSIDE RECORDS SUMMARY | 2024-04-09 18:27 | External Medical Summary ---
Author Name Unknown Address Unknown Organization K1F:LABORATORY [facility] - [address] [place] [address] Laboratory Report Ordering Provider Test Date Status SHABBIR DURBIN 04/01/2024 21:03:00 Final Observation Date Value Abnormality Reference (Units ) Status BUN 04/01/2024 21:03:00 23 Above high normal 6-20 (mg/dL) Final Creatinine 04/01/2024 21:03:00 1.2 0.6-1.2 (mg/dL) Final Glomerular filtration rate/1.73 sq M.predicted [Volume Rate/Area] in Serum, Plasma or Blood by Creatinine-based formula (CKD-EPI) 04/01/2024 21:03:00 65 >=60 (mL/min) Final eGFR is calculated based on the CKD-EPI 2020 equation Sodium 04/01/2024 21:03:00 140 135-146 (m mol/L) Final Potassium 04/01/2024 21:03:00 3.9 3.5-5.1 (m mol/L) Final Cl 04/01/2024 21:03:00 106 98-107 (mm ol/L) Final CO2 04/01/2024 21:03:00 19 Below low normal 22- 32 (mmol/L) Final Anion gap 04/01/2024 21:03:00 15 7-15 (mmol /L) Final Glucose 04/01/2024 21:03:00 119 70-120 (mg /dL) Final Calcium 04/01/2024 21:03:00 8.1 Below low normal 8.4 -10.2 (mg/dL) Final Performing Location LABORATORY [facility] - [address] [place] [address]
--- OUTSIDE RECORDS SUMMARY | 2024-04-09 18:27 | External Medical Summary ---
Author Name Unknown Address Unknown Organization K1F:LABORATORY [facility] - [address] [place] [address] Laboratory Report Ordering Provider Test Date Status KACY HAYES 04/02/2024 06:38:00 Final Warfarin Therapy
INR: 2 .0-3.0 conventional anticoagulation
INR: 2.5- 3.5 high intensity anticoagulation Observation Date Value Abnormality Reference (Units ) Status PT 04/02/2024 06:38:00 16.0 Above high normal 11 .6-15.2 (seconds) Final INR 04/02/2024 06:38:00 1.3 Above high normal 0. 8-1.2 Final Performing Location LABORATORY [facility] - [address] [place] [address]
--- OUTSIDE RECORDS SUMMARY | 2024-04-09 18:27 | External Medical Summary ---
Author Name Unknown Address Unknown Organization K1F:LABORATORY [facility] - [address] [place] [address] Laboratory Report Ordering Provider Test Date Status KACY HAYES 04/01/2024 21:03:00 Final Observation Date Value Abnormality Reference (Units ) Status ABO 04/01/2024 21:03:00 A Final RH 04/01/2024 21:03:00 Positive Final RED BLOOD CELL ANTIBODY SCREEN 04/01/2024 21:03:00 Negative Final SPECIMEN EXPIRATION DATE 04/01/2024 21:03:00 04/04/2024 23:59 Final Performing Location LABORATORY [facility] - [address] [place] [address]
--- OUTSIDE RECORDS SUMMARY | 2024-04-09 18:27 | External Medical Summary ---
Author Name Unknown Address Unknown Organization K1F:LABORATORY [facility] - [address] [place] [address] Laboratory Report Ordering Provider Test Date Status SHABBIR DURBIN 04/01/2024 21:03:00 Final Observation Date Value Abnormality Reference (Units ) Status Magnesium 04/01/2024 21:03:00 2.0 1.5-2.6 (m g/dL) Final Performing Location LABORATORY [facility] - [address] [place] [address]
--- OUTSIDE RECORDS SUMMARY | 2024-04-09 18:27 | External Medical Summary ---
Author Name Unknown Address Unknown Organization K01:[facility]ORY [facility] - [address] [facility] [address] [facility] [address] Laboratory Report Ordering Provider Test Date Status KAYC HAYES 04/02/2024 06:38:00 Final Observation Date Value Abnormality Reference (Units ) Status HbA1C 04/02/2024 06:38:00 6.1 Above high normal 4. 0-5.6 (%) Final The use of HbA1c to monitor glycemic status is based on normal hemoglobin and HbA composition. This test should not be used in patients with abnormal hemoglobin that affects the half life of the red blood cell or the in vivo glycation rates. Glucose, estimated average 04/02/2024 06:38:00 128 Above high normal <126 (mg/dL) Hilton harrell Performing Location LAB[facility]ATORY [facility] - [address] [facility] [address] [facility] [address]
--- OUTSIDE RECORDS SUMMARY | 2024-04-09 18:27 | External Medical Summary ---
Author Name Unknown Address Unknown Organization K1F:LABORATORY [facility] - [facility] [address] [place] [address] Laboratory Report Ordering Provider Test Date Status KACY HAYES 04/02/2024 06:38:00 Final Observation Date Value Abnormality Reference (Units ) Status WBC, Total 04/02/2024 06:38:00 3.85 Below low normal 4.00-10.80 (K/uL) Final RBC 04/02/2024 06:38:00 3.12 4.50-5.25 (M/uL) Final Hemoglobin 04/02/2024 06:38:00 9.4 Below low normal 14.0-16.8 (g/dL) Final HCT 04/02/2024 06:38:00 27.8 Below low normal 40.0-48.4 (%) Final MCV 04/02/2024 06:38:00 89.1 82.0-99.5 (fL) Final MCH 04/02/2024 06:38:00 30.1 27.0-34.0 (pg) Final MCHC 04/02/2024 06:38:00 33.8 32.0-36.0 (g/dL) Final RDW 04/02/2024 06:38:00 16.1 11.5-15.5 (%) Final Platelets 04/02/2024 06:38:00 51 Below low normal 140-400 (K/uL) Final MPV 04/02/2024 06:38:00 10.9 6.6-11.1 (fL) Final Nucleated erythrocytes/100 leukocytes [Ratio] in Blood by Automated count 04/02/2024 06:38:00 1 Above high normal <=0 (/100 WBCs) Final Performing Location LABORATORY [facility] - [address] [place] [address]
--- OUTSIDE RECORDS SUMMARY | 2024-04-09 18:27 | External Medical Summary | Summary of Care ---
Author Name Unknown Organization [facility] Address [address] [place] [address] Phone [phone] Care Team Providers Care Human Resources District Manager Name Role Phone Dru Fritz MD Primary Care Provider [phone] [phone] Encounter Details Date Type Department Care Team (Late st Contact Info) Description 04/01/2024 Population Health External Data Unspecified Department Allergies Active Allergy Reactions Criticality Noted Date Comments Amoxicillin-Pot Clavulanate 05/17/20 22 Dizziness and confused documented as of this encounter (statuses as of 04/01/2024) Medications Medication Sig Dispensed Refills Start Date End Date Status Owlr SYSTEM W/DEVICE KITIndications:DM type 2, goal A1c [...] 03/06/2024 traMADol HCl 50 MG Oral Tablet (Ultram)Indications :Malignant neoplasm metastatic to bone (HCC) Take 2 Tablets by mouth 3 times a day as needed for moderate pain. 180 Tablet 02/12/2024 Active Ergocalciferol 1.25 MG (38944 UT) Oral Capsule (Vitamin D2(Drisdol)) Take 1 [...] three times daily 30 Tablet 03/10/2024 Active Morphine Sulfate 15 MG Oral Tablet (Msir) take 1 tablet (15 mg )orally twice a day As Needed for pain 10 Tablet 03/28/2024 Active documented as of this encounter (statuses as of 04/01/2024) Active Problems Problem Noted Date Diagnosed Date [...] as of this encounter (statuses as of 04/01/2024) Resolved Problems Problem Noted Date Diagnosed Date [...] as of this encounter (statuses as of 04/01/2024) Immunizations No known immunizationsdocumented as of this [...] 04/07/2024 1:45 PM EDT Office Visit Urology, [facility] [address] [place] [address] Isaías Novak MD [address] [place] [address] 04/16/2024 11:45 AM EDT Office Visit Urology, [facility] [address] [place] [address] Isaías Novak MD [address] [place] [address] 04/18/2024 1:15 PM EDT Office Visit Hematology/Oncology [facility] 200 [facility] [place] [phone] Elio Queen MD [address] [place] [address] 05/08/2024 11:00 AM EDT Laboratory Laboratory [facility] [address] [place] [phone] [place], Lab [facility] 200 [facility] [place] [address] 05/08/2024 11:45 AM EDT Immunization/Injectio n Hematology/Oncology Treatment, [place] [address] [facility] [address] [place] [phone] Nurse, Med 200 [facility] [place] [address] 05/20/2024 2:15 PM EDT Office Visit Urology, [facility] 132 [facility] [place] [address] Isaías Novak MD [address] [place] [address] 07/01/2024 4:00 PM EDT Office Visit Family Practice [facility] 132 [facility] [place] [address] Dru Fritz MD 132 [place] [address] Health Maintenance Due Date Last Done Comments DISCUSS TOBACCO CESSATION (REFER TO SMARTSET #5635) 1960 COVID-19 Vaccine (#1) 1965 Pneumococcal Vaccine: [...] Screening 03/06/2025 03/06/2024 CKD HGB USE SMARTSET 69710 03/11/202503/11, 03/11/2024, 03/06/2024, Additional history exists CKD PHOS USE SMARTSET 54035 03/11/202503/01, 03/06/2024, 02/14/2024, Additional history exists GARDASIL-HPV IMMUNIZATION SERIES Aged Out No longer eligible based on patient's age to complete this topic Hepatitis B Aged Out No longer eligi ble based on patient's age to complete this topic MENINGOCOCCAL (MENACTRA/MENVEO) Aged Out No longer eligible based on patient's age to complete this topic documented as of this encounter Medical Devices Implanted Type Area Email Marketing Assistant Device Identifier Shelf Expiration Date Model / Serial / Lot Stent Trnscarotid Enroute 7x40 - [id number] Implanted:Qty: 1 on 01/25/2021 by Zeinab Robert MD at [facility] Left: [facility] [id number] 05/31/2023 SR-0740-C S / / [id number] documented as of this encounter Advance Directives [...] patient or by statute hierarchy) Care Teams Human Resources District Manager Relationship Specialty Start Date End Date Dru Fritz MD [address] [place] [address] PCP - General Family Medicine 01/24/21 documented as of this encounter
--- OUTSIDE RECORDS SUMMARY | 2024-04-09 18:27 | External Medical Summary ---
Author Name Unknown Address Unknown Organization : Laboratory Report Ordering Provider Test Date Status ARIELA PAYNE 04/02/2024 06:26:22 Final Observation Date Value Abnormality Reference (Units ) Status Glucose Point of Care 04/02/2024 06:26:22 92 70-120 (mg/dL) Final Performing Location
--- OUTSIDE RECORDS SUMMARY | 2024-04-09 18:27 | External Medical Summary ---
Author Name Unknown Address Unknown Organization : Laboratory Report Ordering Provider Test Date Status ARIELA PAYNE 04/01/2024 22:12:55 Final Observation Date Value Abnormality Reference (Units ) Status Glucose Point of Care 04/01/2024 22:12:55 108 70-120 (mg/dL) Final Performing Location
--- OUTSIDE RECORDS SUMMARY | 2024-04-09 18:27 | External Medical Summary ---
Author Name Unknown Address Unknown Organization K01:LABORATORY [facility] - [address] [place] [address] Laboratory Report Ordering Provider Test Date Status KACY HAYES 04/01/2024 23:20:58 Final Observation Date Value Abnormality Reference (Units ) Status Bacteria identified in Specimen by Culture 04/01/2024 23:20:58 [id number]^STAPHYLO COCCUS, COAGULASE NEGATIVE Abnormal Final 10,000 to 100,000 colonies/m L Staphylococcus, coagulase negative Performing Location LABORATORY [facility] - [address] [place] [place] [address] Ordering Provider Test Date Status KACY HYAES 04/01/2024 23:20:58 Final Observation Date Value Abnormality Reference (Units ) Status Nitrofurantoin susceptibility 04/01/2024 23:20:58 <=16 Susceptible Final Oxacillinsusceptibility 04/01/2024 23:20:58 >=4 Resistant Final Oxacillin/Methicillin resist ant Staphylococci are considered clinically resistant to all Beta-lactam (Penicillin and Cephalosporin) antibiotics. Quinolone antibiotics should also not be used for Staphylococci that are Oxacillin resistant. Tetracyclinesusceptibility 04/01/2024 23:20:58 >=16 Res istant Final TMP-SMZ susceptibility 04/01/2024 23:20:58 160 Resista nt Final Vancomycinsusceptibility 04/01/2024 23:20:58 1 Susce ptible Final Test: Culture, Urine, Quanti tative
Specimen Source: Urine, Catheter
Specimen Type: Urine
Specimen Date: 04/01/2024 2320
Result Date: 04/04/2024 0858
Result Status: Final result
Abnormal: Yes
Resulting Lab: LABORATORY [facility]
[address]
[place] [address]

CULTURE

10,000 to 100,000 colonies/mL Staphylococcus, coagulase negative (Abnormal)

SUSCEPTIBILITY

Staphylococcus,
coagulase
negative
METHOD MICROBROTH
DILUTIONS

NITROFURANTOIN <=16 Susceptible
OXACILLIN >=4 Resistant
[1]
TETRACYCLINE >=16 Resistant
TRIMETH/SULFAMETHOXAZOLE 160 Resistant
VANCOMYCIN 1 Susceptible

[1] Oxacillin/Methicillin resistant Staphylococci are considered clinically
resistant to all Beta-lactam (Penicillin and Cephalosporin) antibiotics.
Quinolone antibiotics should also not be used for Staphylococci that are
Oxacillin resistant.

null Performing Location LABORATORY [facility] - [facility] [address]
--- OUTSIDE RECORDS SUMMARY | 2024-04-09 18:27 | External Medical Summary ---
Author Name Unknown Address Unknown Organization K1F:LABORATORY [facility] - [address] [place] [address] Laboratory Report Ordering Provider Test Date Status SHABBIR DURBIN 04/01/2024 21:03:00 Final Observation Date Value Abnormality Reference (Units ) Status Phosphate 04/01/2024 21:03:00 3.5 2.5-4.8 (m g/dL) Final Performing Location LABORATORY [facility] - [address] [place] [address]
--- OUTSIDE RECORDS SUMMARY | 2024-04-09 18:27 | External Medical Summary ---
Author Name Unknown Address Unknown Organization K1F:LABORATORY [facility] - [address] [place] [address] Laboratory Report Ordering Provider Test Date Status SHABBIR DURBIN 04/01/2024 21:03:00 Final Observation Date Value Abnormality Reference (Units ) Status WBC, Total 04/01/2024 21:03:00 4.38 4.00-10.80 (K/uL) Final RBC 04/01/2024 21:03:00 3.36 4.50-5.25 (M/uL) Final Hemoglobin 04/01/2024 21:03:00 10.3 Below low normal 14.0-16.8 (g/dL) Final HCT 04/01/2024 21:03:00 30.1 Below low normal 40.0-48.4 (%) Final MCV 04/01/2024 21:03:00 89.6 82.0-99.5 (fL) Final MCH 04/01/2024 21:03:00 30.7 27.0-34.0 (pg) Final MCHC 04/01/2024 21:03:00 34.2 32.0-36.0 (g/dL) Final RDW 04/01/2024 21:03:00 16.1 11.5-15.5 (%) Final Platelets 04/01/2024 21:03:00 43 Below low normal 140-400 (K/uL) Final MPV 04/01/2024 21:03:00 8.9 6.6-11.1 (fL) Final Nucleated erythrocytes/100 leukocytes [Ratio] in Blood by Automated count 04/01/2024 21:03:00 1 Above high normal <=0 (/100 WBCs) Final Performing Location LABORATORY [facility] - [address] [place] [address]
--- OUTSIDE RECORDS SUMMARY | 2024-04-09 18:27 | External Medical Summary | Summary of Care ---
Author Name Unknown Organization [facility] Address [address] [place] [address] Phone [phone] Care Team Providers Care Automat Watcher Name Role Phone Dru Fritz MD Primary Care Provider [phone] Reason for Visit * Reason Onset Date Comments Appointment 04/01/2024 Clarification Encounter Details Date Type Department Care Team (Late st Contact Info) Description 04/01/2024 Telephone Urology, [facility] [address] [place] [address] Services, Scheduling [address] [place] [address] Appointment (Clarification ) Allergies Active Allergy Reactions Criticality Noted Date Comments Amoxicillin-Pot Clavulanate 05/17/20 22 Dizziness and confused documented as of this encounter (statuses as of 04/01/2024) Medications Medication Sig Dispensed Refills Start Date End Date Status Silver Curve SYSTEM W/DEVICE KITIndications:DM type 2, goal A1c [...] 180 Tablet 02/12/2024 Active Ergocalciferol 1.25 MG (65410 UT) Oral Capsule (Vitamin D2(Drisdol)) Take 1 [...] encounter Miscellaneous Notes * Telephone Encounter - Sarah Dickinson OSA - 04/01/2024 2:03 PM EDT Patient's kept the 04/16/24 appt. * Telephone Encounter - Dior Leger LPN - 04/01/2024 1:38 PM EDT Patient may keep either appointment, does not need both. Please call pt's to determine which she would like to keep, cancel the other appt. Thank you Rupa * Telephone Encounter - Dorothea Amaya OSA - 04/01/2024 1:26 PM EDT Patent calling in, she thought appt on 04/07/24 was to be cancelled because provider was out of office, and then come on 04/16/24 instead, but no appt was cancelled, please call to clarify if pt needs both appts or just one, thanks documented in this encounter Plan of Treatment Upcoming Encounters Date Type Department Care Team (Late st Contact Info) Description 04/16/2024 11:45 AM EDT Office Visit Urology, [facility] [address] [facility] [place] [address] Isaías Novak MD [address] [place] [address] 04/18/2024 1:15 PM EDT Office Visit Hematology/Oncology [facility] [address] [place] [phone] Elio Queen MD [address] [facility] [place] [address] 05/08/2024 11:00 AM EDT Laboratory Laboratory [facility] [address] [place] [phone] Saritha Lab [facility] [address] [facility] [place] [address] 05/08/2024 11:45 AM EDT Immunization/Injectio n Hematology/Oncology Treatment, [place] [address] [place] [phone] Nurse, Med 4 [facility] [place] [place] [address] 05/20/2024 2:15 PM EDT Office Visit Urology, [facility] [address] [place] [address] Isaías Novak MD [address] [place] [address] 07/01/2024 4:00 PM EDT Office Visit Family Practice [facility] [address] [place] [address] Dru Fritz MD [address] [place] [address] Health Maintenance Due Date Last Done Comments DISCUSS TOBACCO CESSATION (REFER TO SMARTSET #4332) 1960 COVID-19 Vaccine (#1) 1965 Pneumococcal Vaccine: [...] (FLU shot) (#1) 2024 HbA1c 06/15/2024 12/14/2023, 0403/2023, 05/15/2022, Additional history exists GFR 09/10/2024 03/11/2024, 06/0 03/2024, 02/15/2024, Additional history exists Depression Screening 03/06/2025 03/06/2024 CKD HGB USE SMARTSET 45296 03/11/202503/11, 03/11/2024, 03/06/2024, Additional history exists CKD PHOS USE SMARTSET 43681 03/11/202503/01, 03/06/2024, 02/14/2024, Additional history exists GARDASIL-HPV IMMUNIZATION SERIES Aged Out No longer eligible based on patient's age to complete this topic Hepatitis B Aged Out No longer eligi ble based on patient's age to complete this topic MENINGOCOCCAL (MENACTRA/MENVEO) Aged Out No longer eligible based on patient's age to complete this topic documented as of this encounter Medical Devices Implanted Type Area Limousine Rental Clerk Device Identifier Shelf Expiration Date Model / Serial / Lot Stent Trnscarotid Enroute 7x40 - [id number] Implanted:Qty: 1 on 01/25/2021 by Zeinab Robert MD at [facility] Left: [facility] [id number] 05/31/2023 [id number] / / [id number] documented as of this encounter Advance Directives [...] patient or by statute hierarchy) Care Teams Automat Watcher Relationship Specialty Start Date End Date Dru Fritz MD [address] [place] [address] PCP - General Family Medicine 01/24/21 documented as of this encounter
--- OUTSIDE RECORDS SUMMARY | 2024-04-09 18:27 | External Medical Summary ---
Author Name Unknown Address Unknown Organization K01:[facility] [place] - [address] [facility] [address] [place] [address] Laboratory Report Ordering Provider Test Date Status KACY HAYES 04/01/2024 23:20:35 Final Observation Date Value Abnormality Reference (Units ) Status Methicillin resistant Staphylococcus aureus (MRSA) DNA [Presence] in Nose by ARACELIS with probe detection 04/01/2024 23:20:35 Negative Negative Final No Methicillin resistant Sta phylococcus aureus detected by PCR (amplified probe). Performing Location [facility] - [address] [place] [address]
[2024-04-09] MEDS: traMADol HCL 50 MG TABLET PO PRN (18:45)
[2024-04-09] MEDS: busPIRone 5 MG TAB PO SCH (18:45)
[2024-04-09 19:49] LABS: Hematocrit (blood only) 25.4 % (42.0-52.0); Hemoglobin 8.4 g/dl (14.0-18.0); Mean Corpuscular Hemoglobin 27.8 pg (25.0-34.0); Mean Corpuscular Hgb Conc 33.1 g/dL (32.0-36.0); Mean Corpuscular Volume 84.1 fL (80.0-100.0); Mean Platelet Volume 9.5 fL (9.4-12.4); Platelet Count 31 K/uL (130-400); RDW Coefficient of Variation 17.7 % (11.5-14.5); RDW Standard Deviation 54.6 fL (36.4-46.3); Red Blood Count 3.02 M/uL (4.70-6.10); White Blood Count 4.28 K/ul (4.8-10.8)
[2024-04-09] MEDS: MoRPHine SULFATE CR 15 MG TABCR PO SCH (20:18)
[2024-04-09] MEDS: METOPROLOL TARTRATE 25 MG TAB PO SCH (20:20)
[2024-04-09] MEDS: MAGNESIUM CHLORIDE W/CALCIUM 64MG DELAYED REL TAB PO SCH (20:20)
[2024-04-09 20:21] LABS: Basophils # (auto) 0.01 K/uL (0.00-0.20); Basophils % (auto) 0.2 %; Immature Granulocytes # (auto) 0.36 K/uL (0.01-0.20); Immature Granulocytes % (auto) 8.4 %; Lymphocytes # (auto) 0.43 K/uL (1.20-3.40); Monocytes % (auto) 9.3 %; Neutrophils # (auto) 3.08 K/uL (1.40-6.50); Neutrophils % (auto) 72.1 %
[2024-04-09] MEDS ORDERED: MELATONIN 3 MG TAB PO PRN (21:00)
[2024-04-09] MEDS ORDERED: [UNRECOGNIZED DRUG - OTHER] PO SCH (21:00)
[2024-04-09] MEDS: LANTUS PER UNIT CHARGE SQ SCH (21:30)
[2024-04-10] MEDS: ONDANSETRON INJ 2 MG/ML 2 ML VIAL IV PRN (05:06)
[2024-04-10 08:20] LABS: Hematocrit (blood only) 26.4 % (42.0-52.0); Hemoglobin 8.6 g/dl (14.0-18.0); Mean Corpuscular Hemoglobin 28.1 pg (25.0-34.0); Mean Corpuscular Hgb Conc 32.6 g/dL (32.0-36.0); Mean Corpuscular Volume 86.3 fL (80.0-100.0); Platelet Count 33 K/uL (130-400); RDW Coefficient of Variation 17.8 % (11.5-14.5); RDW Standard Deviation 56.3 fL (36.4-46.3); Red Blood Count 3.06 M/uL (4.70-6.10); White Blood Count 4.65 K/ul (4.8-10.8)
[2024-04-10] MEDS: MoRPHine SULFATE 4 MG/ML 1 ML CARP\\VIAL IV PRN (08:22)
[2024-04-10 08:43] LABS: Basophils # (auto) 0.02 K/uL (0.00-0.20); Basophils % (auto) 0.4 %; Immature Granulocytes % (auto) 6.5 %; Lymphocytes # (auto) 0.35 K/uL (1.20-3.40); Lymphocytes % (auto) 7.5 %; Monocytes # (auto) 0.39 K/uL (0.11-0.59); Monocytes % (auto) 8.4 %; Neutrophils # (auto) 3.59 K/uL (1.40-6.50); Neutrophils % (auto) 77.2 %
[2024-04-10 08:57] LABS: Albumin Level 2.7 gm/dl (3.4-5.0); BUN Creatinine Ratio 15.8 (10-20); Bilirubin,Total 0.6 mg/dl (0.2-1.0); Calcium 7.4 mg/dl (8.6-10.3); Est GFR (Non-African American) 41.4 ml/min; Globulin 2.7 gm/dl (2.5-4.0); Magnesium 1.8 mg/dl (1.7-2.4); Potassium 4.3 mmol/L (3.5-5.1); Total Protein 5.4 gm/dl (6.0-8.3)
[2024-04-10] MEDS: PROCHLORPERAZINE 10 MG in SYRINGE 8 ML IV PRN (09:41)
[2024-04-10] MEDS: FERROUS SULFATE 325 MG TAB PO SCH (10:32)
[2024-04-10] MEDS: ATORVASTATIN 40 MG TAB PO SCH (10:32)
[2024-04-10] MEDS: CALCITRIOL 0.25 MCG CAPSULE PO SCH (10:32)
[2024-04-10] MEDS: CYANOCOBALAMIN (B-12) 500 MCG TABLET PO SCH (10:33)
[2024-04-10] MEDS: TAMSULOSIN HCL 0.4 MG CAP PO SCH (10:33)
[2024-04-10] MEDS ORDERED: Nursing to Pharmacy Communication SCH (13:30)
[2024-04-10] MEDS: cefTRIAXone SODIUM 2,000 MG/50 ML BAG IV SCH (15:53)
--- NOTE | 2024-04-10 16:39 | Hospitalist Progress Note ---
Date of Service April 10, 2024 Assessment & Plan (1) Prostate cancer metastatic to bone: (2) Pancytopenia: (3) Obstructed Velasquez catheter: (4) Acute UTI (urinary tract infection): (5) Cancer related pain: Plan Patient remains critically ill with ongoing blood loss related to severe hematuria related to his metastatic prostate cancer and possibly staphylococcal urinary tract infection. Suspect Staphylococcus in the urine may be colonized, this was present in April 01 as well. It is sensitive to Macrodantin. Discontinue Rocephin, start Macrodantin Continue to monitor hemoglobin Extensive conversation with patient and then again with patient and at bedside about goals of care, how he would want to proceed with this chronic hematuria. He at this time still wants to pursue nephrostomy tubes. reports they do have it scheduled for 04/23/2024. They recognize that it may not be able to be performed because of his persistent thrombocytopenia. Explained what it would mean to be on hospice, explained to them what it would mean to continue to irrigate the bladder and continue to bleed and not proceed with blood transfusions. At this time they are prepared to continually irrigate the Velasquez catheter so does not get clotted off, they want to pursue blood transfusions as needed, they want to continue to try and get him to get the nephrostomy tubes. At this time they are not interested in going strictly to hospice until all these things have been done. Did explain to them that they could monitor his hemoglobin as an outpatient and get him transfused as an outpatient versus coming to the hospital each time. Care management involved assisting with coordinating home health. Check hemoglobin in the morning, continue hand irrigating his Velasquez Had extensive conversation with the patient and his about his pain medications he is having uncontrolled cancer pain. He states that he is back on his tramadol that was stopped when from his previous discharge because that seemed to help him the most. Will increase his MS Contin to 30 mg 2 times daily, schedule his tramadol 3 times daily which is how he was taking at home, scheduled Tylenol and add an immediate release morphine for breakthrough pain Anticipate discharge home with the plan above. 57 minutes in total care of the patient today including conversation with staff, reviewing records, reviewing records from outside hospital, communication and conversation with family at bedside Admission and Anticipated Discharge Date Admission Date: April 09, 2024 Subjective Patient still with significant hematuria, still with significant pelvic and bladder pain. Physical Exam Physical Exam: Constitutional: Alert, cachectic, moderate distress HEENT: Mucous membranes moist. Lungs: Clear to auscultation, decreased, no wheezes rales or rhonchi CV: S1-S2, regular Abdomen: Soft, generalized tenderness : Velasquez catheter in place, dark hematuria in Velasquez bag, evidence of bleeding around Velasquez catheter at tip of penis Extremities: No significant edema Neuro: No focal deficits Psych: Cooperative, depressed Results & Data Results & Data Vital Signs (Past 12 Hours) Vital Signs Temp Pulse Resp BP Pulse Ox O2 Del Method 04/10/24 07:45 Room Air 04/10/24 07:14 36.6 C 69 21 143/82 H 98 Room Air Diagnostic Findings Reviewed imaging, laboratory and diagnostic studies. Pertinent findings as below. Hemoglobin 8.6 Platelets 33 (3) Obstructed Velasquez catheter Encounter type: initial encounter Qualified Code(s): T83.091A - Other mechanical complication of indwelling urethral catheter, initial encounter
[2024-04-10] MEDS: SIMETHICONE 80 MG CHEW PO PRN (18:04)
[2024-04-10] MEDS: ACETAMINOPHEN 325 MG TAB PO SCH (18:06)
[2024-04-10] MEDS: traMADol HCL 50 MG TABLET PO SCH (20:01)
[2024-04-10] MEDS: MoRPHine SULFATE CR 15 MG TABCR PO SCH (20:01)
[2024-04-10] MEDS: NITROFURANTOIN MONOHYDRATE 100 MG CAP PO SCH (20:01)
[2024-04-10] MEDS: MoRPHine SULFATE 2 MG/ML CARP IV STA (22:43)
[2024-04-11 08:00] LABS: BUN Creatinine Ratio 16.1 (10-20); Calcium 7.3 mg/dl (8.6-10.3); Creatinine Clr Calc Pharmacy 26.1 ml/min; Est GFR (African American) 34.8 ml/min
[2024-04-11 08:35] LABS: Hematocrit (blood only) 19.6 % (42.0-52.0); Hemoglobin 6.4 g/dl (14.0-18.0); Mean Corpuscular Hemoglobin 27.9 pg (25.0-34.0); Mean Corpuscular Hgb Conc 32.7 g/dL (32.0-36.0); Mean Corpuscular Volume 85.6 fL (80.0-100.0); Mean Platelet Volume 9.2 fL (9.4-12.4); Platelet Count 21 K/uL (130-400); RDW Coefficient of Variation 17.5 % (11.5-14.5); RDW Standard Deviation 54.9 fL (36.4-46.3); Red Blood Count 2.29 M/uL (4.70-6.10); White Blood Count 3.22 K/ul (4.8-10.8)
[2024-04-11 08:36] LABS: Platelet Estimate Signific. Decreased (Normal)
[2024-04-11] MEDS ORDERED: SODIUM CHLORIDE 0.9% 250 ML IV PRN (09:09)
[2024-04-11] MEDS ORDERED: VANCOMYCIN CONSULT ACTIVE PRN (09:14)
--- NOTE | 2024-04-11 11:05 | Pharmacy Report ---
Pharmacy PK ABX Note - Date of Service April 11, 2024 - Assessment and Plan Assessment * 63 year old M receiving vancomycin for treatment of oxacillin-resistant CoNS UTI. * SCr acutely and rapidly increasing. Plan Vancomycin * Target AUC/JEFF of 400-600 mg/L.hr. However, dosing based on AUC will be paused for now 2nd CARLA and will instead dose via level * Loading dose: 1000 mg IV x 1 * Random level ordered for tomorrow AM Pharmacy will continue to follow and will adjust dose/frequency as necessary. Thank you. Pharmacy has transitioned to AUC monitoring for vancomycin. AUC/JEFF is the preferred PK/PD target and is associated with decreased risk of nephrotoxicity compared to traditional trough targets.
--- NOTE | 2024-04-11 15:23 | Urology Progress Note ---
Date of Service April 11, 2024 Assessment & Plan (1) Hematuria: Plan 63y/o M with PMHx significant for metastatic prostate cancer treated with chemotherapy and palliative radiation who presented to the ED due to hematuria and clogged Velasquez catheter. Follow-up for gross hematuria, catheter obstruction Patient afebrile, stable vitals Labs reviewedWBC 3.22, creatinine 2.23, hemoglobin 6.4 (received PRBC transfusion today) Urine culture grew coag negative staph; Blood cultures prelim no growth x 48hours I was contacted by nursing staff today that the patients Velasquez catheter was obstructed. Nursing had attempted to irrigate the catheter multiple times without success. On arrival, I attempted to hand irrigate the catheter however this was unsuccessful. Therefore, the catheter was removed and the patient was able to void with clots immediately following catheter removal. However given his persistent hematuria, we discussed placement of a three-way Velasquez catheter and initiating CBI. He was agreeable. Using sterile technique, a 22 Greenlandic three-way Velasquez catheter was placed without difficulty. Patient tolerated well. There was immediate return of approx 400cc of maroon urine. The catheter was then hand irrigated without difficulty and CBI initiated. Maintain Velasquez catheter and monitor output. Titrate CBI as needed. Continue to trend labs and transfuse as necessary per hospital medicine. Neither surgery with cystoscopy and clot evacuation/fulguration or radiation have stopped his bleeding As previously discussed, he may benefit from urinary diversion with bilateral percutaneous nephrostomy tubes He follows with [facility] -Dr. Novak. Per patient/, plan is to undergo b/l nephrostomy tube placement if platelet count allows as outpatient. will follow. Admission and Anticipated Discharge Date Admission Date: April 09, 2024 Subjective Pt seen at bedside today Awake, resting in bed on arrival No acute distress Continues with hematuria and clots Velasquez catheter was upsized to a 22Fr last night by nursing staff Nursing has been irrigating his catheter hourly due to clot obstruction Bladder scanned for 74ml Review of Systems Constitutional: as per Subjective / HPI Genitourinary: + as per Subjective / HPI Physical Exam Constitutional: + frail appearing Chronically ill-appearing Respiratory: no respiratory distress and no labored breathing Gastrointestinal (Abdomen): Percussion/Palpation: abdomen soft; abdomen nontender Neurologic: awake Psychiatric: Orientation: alert Genitourinary: Velasquez catheter intact Results & Data Vital Signs (Past 12 Hours) Vital Signs Temp Pulse Pulse Pulse Resp BP BP 04/11/24 14:36 36.6 C 123 H 18 140/86 04/11/24 14:12 35.9 C L 108 H 18 119/75 04/11/24 13:12 36.4 C 125 H 18 127/81 04/11/24 12:42 36.4 C 108 H 18 135/83 04/11/24 12:27 36.6 C 109 H 18 141/83 H 04/11/24 12:04 36.9 C 90 16 103/62 04/11/24 11:14 118 H 94/58 L 04/11/24 08:00 36.3 C L 74 16 130/74 Pulse Ox O2 Del Method 04/11/24 14:36 99 04/11/24 14:12 97 04/11/24 13:12 04/11/24 12:42 99 04/11/24 12:27 98 04/11/24 12:04 98 04/11/24 11:14 04/11/24 08:00 100 Room Air PG Care Time/CCT Total # of Minutes Spent Total Time Spent with Patient: Total time spent is greater than 50% in coordination of care (as documented) at patient's floor/unit and/or counseling patient: Coding Level of Care Code 74691 SUB INP/OBS CARE 2/35MIN Diagnoses Hematuria R31.0 Hematuria type: gross (1) Hematuria Hematuria type: gross Qualified Code(s): R31.0 - Gross hematuria
--- NOTE | 2024-04-11 15:28 | Hospitalist Progress Note ---
Date of Service April 11, 2024 Assessment & Plan (1) Acute blood loss anemia: (2) Acute kidney injury: (3) Pancytopenia: (4) Obstructed Velasquez catheter: (5) Acute UTI (urinary tract infection): (6) Hematuria: (7) Chronic pain due to malignant neoplastic disease: (8) Prostate cancer metastatic to multiple sites: (9) Severe protein-calorie malnutrition: Plan Patient critically ill with rapid blood loss anemia due to hematuria from metastatic prostate cancer. Patient now with acute kidney injury due to hypovolemia and progressive thrombocytopenia. Patient requires hospital level care and resuscitation. Transfuse 1 unit of platelets followed by 2 units of packed red blood cells Extensive conversation with patient and at bedside explaining his very poor prognosis, we discussed quantity versus quality of life. We discussed hospice care. We discussed the fact that most likely he would not be able to get the nephrostomy tubes placed due to his severe thrombocytopenia which does not seem to be improving. Patient and at this point want to continue with transfusions and hospital level care but will continue to contemplate transitioning to hospice care. Updated by nurse, throughout the day hematuria has progressed and Velasquez catheter has become obstructed. Communication with urology team, removed Velasquez catheter, large clot was removed with a Velasquez catheter. Three-way Velasquez catheter placed and CBI started. Patient reevaluated, CBI shows dark punch colored urine in Velasquez bag. Pain overall fair control. Blood pressure improved however still somewhat tachycardic. 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 Also severe thrombocytopenia most likely due to bone marrow infiltration from the cancer. Patient is at high risk for complications associated with ongoing blood loss. Risk for complications from multiple blood transfusions. This is all been related to the patient and he is aware of his condition. Did reach out to patient's primary urologist, Dr. Novak, via text. He is concerned that the patient will not be able to go through with nephrostomy tube placement due to his persistent thrombocytopenia. No other interventions recommended by him at this time from his area of expertise. 57 minutes spent at the bedside, communication with specialist, evaluation the patient, communication with patient and at bedside communication with staff and review of the EMR Admission and Anticipated Discharge Date Admission Date: April 09, 2024 Subjective Patient with increasing hematuria overnight, requiring frequent irrigation. Pain is somewhat better controlled. at bedside Physical Exam Physical Exam: Constitutional: Alert, frail, cachectic HEENT: Mucous membranes dry Lungs: Clear to auscultation, decreased, no wheezes rales or rhonchi CV: S1-S2, tachycardic Abdomen: Soft, nontender, nondistended : Velasquez catheter in place, dark lucina blood in Velasquez bag Extremities: No significant edema Neuro: No focal deficits, generalized weakness Psych: Cooperative, depressed affect Results & Data Results & Data Vital Signs (Past 12 Hours) Vital Signs Temp Pulse Pulse Pulse Resp BP BP 04/11/24 14:36 36.6 C 123 H 18 140/86 04/11/24 14:12 35.9 C L 108 H 18 119/75 04/11/24 13:12 36.4 C 125 H 18 127/81 04/11/24 12:42 36.4 C 108 H 18 135/83 04/11/24 12:27 36.6 C 109 H 18 141/83 H 04/11/24 12:04 36.9 C 90 16 103/62 04/11/24 11:14 118 H 94/58 L 04/11/24 08:00 36.3 C L 74 16 130/74 Pulse Ox O2 Del Method 04/11/24 14:36 99 04/11/24 14:12 97 04/11/24 13:12 04/11/24 12:42 99 04/11/24 12:27 98 04/11/24 12:04 98 04/11/24 11:14 04/11/24 08:00 100 Room Air Diagnostic Findings Reviewed imaging, laboratory and diagnostic studies. Pertinent findings as below. Hemoglobin 6.4, significant decrease Platelets 21 Creatinine 2.2 increased (4) Obstructed Velasquez catheter Encounter type: initial encounter Qualified Code(s): T83.091A - Other mechanical complication of indwelling urethral catheter, initial encounter (6) Hematuria Hematuria type: gross Qualified Code(s): R31.0 - Gross hematuria
[2024-04-11] MEDS: LIDOCAINE 2% JELLY 5 ML TUBE EXT ONE ×2 (16:36→16:37)
[2024-04-11] MEDS: MoRPHine SULFATE 4 MG/ML 1 ML CARP\\VIAL IV STA (18:09)
[2024-04-11] MEDS: FUROSEMIDE 40 MG/4 ML VIAL IV ONE ×2 (18:40→18:45)
[2024-04-11] MEDS: VANCOMYCIN HCL 1,000 MG in SODIUM CHLORIDE 0.9% 500 ML IV ONE (18:45)
[2024-04-12] MEDS ORDERED: HYDROmorphone INJ 0.5 MG/0.5 ML SYR IV PRN ×2 (02:50→03:46)
[2024-04-12] MEDS: HYDROmorphone INJ 0.5 MG/0.5 ML SYR ONE (02:55)
[2024-04-12] MEDS: HYDROmorphone INJ 0.5 MG/0.5 ML SYR IV STA ×2 (03:49→03:50)
[2024-04-12 04:34] LABS: BUN Creatinine Ratio 17.4 (10-20); Calcium 8.1 mg/dl (8.6-10.3); Creatinine Clr Calc Pharmacy 28.1 ml/min; Est GFR (African American) 38.1 ml/min; Est GFR (Non-African American) 32.9 ml/min; Magnesium 1.8 mg/dl (1.7-2.4); Potassium 3.9 mmol/L (3.5-5.1)
[2024-04-12 05:38] LABS: Hematocrit (blood only) 33.3 % (42.0-52.0); Hemoglobin 10.8 g/dl (14.0-18.0); Mean Corpuscular Hemoglobin 27.5 pg (25.0-34.0); Mean Corpuscular Hgb Conc 32.4 g/dL (32.0-36.0); Mean Corpuscular Volume 84.7 fL (80.0-100.0); Nucleated RBC # (auto) 0.03 K/uL (0.00-0.12); Nucleated RBC % (auto) 0.4 %; Platelet Count 73 K/uL (130-400); RDW Coefficient of Variation 16.7 % (11.5-14.5); RDW Standard Deviation 52.4 fL (36.4-46.3); Red Blood Count 3.93 M/uL (4.70-6.10); White Blood Count 6.81 K/ul (4.8-10.8)
[2024-04-12] MEDS: VANCOMYCIN HCL 1,000 MG in SODIUM CHLORIDE 0.9% 250 ML IV STA (06:37)
--- NOTE | 2024-04-12 09:52 | Urology Progress Note ---
Date of Service April 12, 2024 Assessment & Plan (1) Hematuria: (2) Prostate cancer metastatic to bone: Plan 63-year-old male with metastatic prostate cancer, currently on continuous bladder irrigation for ongoing hematuria. Neither surgery with cystoscopy and clot evacuation/fulguration or radiation have stopped his bleeding. Much of the surface of the bladder is invaded by friable cancer tissue. As previously discussed, he may benefit from urinary diversion with bilateral percutaneous nephrostomy tubes, although this is highly dependent on his platelet counts. Tentative plan has been for nephrostomy tube placement on 04/23, however we discussed that without the supportive care he is receiving currently, he is unlikely to be able to manage at home until that date. If platelet counts are stable, he may benefit from transfer for possible nephrostomy tube at an earlier date. We had a discussion regarding his overall prognosis. Even with nephrostomy tubes, and if the catheter and stents can be removed, this does not guarantee that he is going to stop bleeding. He expressed that one of his goals is to have as much time at home as possible. With the amount of continuous bladder irrigation, catheter exchanges and hand irrigation that he has needed, I do not think that home health nursing will be able to manage this. Realistically, I think that his options include 1)continue what he is doing, managing in the hospital with CBI, transfusions, hand irrigation. 2)transfer for nephrostomy tubes and try to remove stents catheter. 3)consider hospice/comfort care Urology will follow along Admission and Anticipated Discharge Date Admission Date: April 09, 2024 Subjective Feeling okay this morning, catheter is draining well and not having any pain Had significant issues with catheter clotting off overnight, need to be exchanged and hand irrigated Now has been managing on wide-open CBI. Hemoglobin up today (10.8 from 6.4, received transfusion) Platelets up as well (73 up from 21) Physical Exam Physical Exam: Frail-appearing, NAD Seated in bed Catheter in place with CBI running, urine blushing intermittently. Results & Data Vital Signs (Past 12 Hours) Vital Signs Temp Pulse Pulse Resp BP BP Pulse Ox 04/12/24 07:43 36.2 C L 67 18 153/84 H 96 04/11/24 23:35 37 C 68 14 117/79 100 04/11/24 21:45 36.8 C 81 14 124/81 98 O2 Del Method 04/12/24 07:43 Room Air 04/11/24 23:35 04/11/24 21:45 PG Care Time/CCT Total # of Minutes Spent Total Time Spent with Patient: Total time spent is greater than 50% in coordination of care (as documented) at patient's floor/unit and/or counseling patient: Coding Level of Care Code 94063 SUB INP/OBS CARE 2/35MIN Diagnoses Hematuria R31.0 Hematuria type: gross Prostate cancer metastatic to bone C61; C79.51 (1) Hematuria Hematuria type: gross Qualified Code(s): R31.0 - Gross hematuria
--- NOTE | 2024-04-12 11:54 | Hospitalist Progress Note ---
Date of Service April 12, 2024 Assessment & Plan (1) Acute blood loss anemia: (2) Acute kidney injury: (3) Pancytopenia: (4) Obstructed Velasquez catheter: (5) Acute UTI (urinary tract infection): (6) Hematuria: (7) Chronic pain due to malignant neoplastic disease: (8) Prostate cancer metastatic to multiple sites: (9) Severe protein-calorie malnutrition: Plan Patient remains critically ill with ongoing blood loss due to metastatic prostate cancer. Hemoglobin and platelets have improved with transfusions yesterday, continue to monitor Extensive conversation with patient and Dr. Hale, urology, at bedside. Patient at this time wants to continue with transfusions as needed wants to continue with interventions that may be required. Pain overall seems to be controlled with current regimen, continue to monitor Daily discussions of overall goals of care. Admission and Anticipated Discharge Date Admission Date: April 09, 2024 Subjective Events of the last night reviewed with nursing. Velasquez catheter significant clots despite CBI. Larger catheter placed. This morning patient feels improved with improved hemoglobin. Still wants to proceed with transfusions attempting to get to nephrostomy tubes later this month. Physical Exam Physical Exam: Constitutional: Alert, cachectic, frail, HEENT: Mucous membranes moist. Lungs: Clear to auscultation, decreased, no wheezes rales or rhonchi CV: S1-S2, regular Abdomen: Soft, generalized suprapubic tenderness : CBI Velasquez catheter in place Extremities: No significant edema Neuro: No focal deficits Psych: Cooperative, normal mood Results & Data Results & Data Vital Signs (Past 12 Hours) Vital Signs Temp Pulse Resp BP Pulse Ox O2 Del Method 04/12/24 08:00 Room Air 04/12/24 07:43 36.2 C L 67 18 153/84 H 96 Room Air Diagnostic Findings Reviewed imaging, laboratory and diagnostic studies. Pertinent findings as below. Hemoglobin 10.8 Platelets 73 Creatinine 2.07 (4) Obstructed Velasquez catheter Encounter type: initial encounter Qualified Code(s): T83.091A - Other mechanical complication of indwelling urethral catheter, initial encounter (6) Hematuria Hematuria type: gross Qualified Code(s): R31.0 - Gross hematuria
--- NOTE | 2024-04-12 16:26 | Pharmacy Report ---
Pharmacy PK ABX Note - Date of Service April 12, 2024 - Assessment and Plan Assessment 04/12 * Random level came back as <3 this morning, upon review dose ordered yesterday was not administered * 1000 mg dose was given ~0630 this morning, SCr improving, obtained additional level at 1530 which resulted as 11.5 mcg/ml * Given improvement in renal function and level < 15 mcg/ml will redose with 750 mg x 1 now and recheck random level in AM 04/11 * 63 year old M receiving vancomycin for treatment of oxacillin-resistant CoNS UTI. * SCr acutely and rapidly increasing. Plan Vancomycin * Target AUC/JEFF of 400-600 mg/L.hr. However, dosing based on AUC will be paused for now 2nd CARLA and will instead dose via level * 1000 mg x1 given at 0630, random level @ 1530 11.5 mcg/ml * Redose with 750 mg x 1 now * Random level ordered for tomorrow AM Pharmacy will continue to follow and will adjust dose/frequency as necessary. Thank you. Pharmacy has transitioned to AUC monitoring for vancomycin. AUC/JEFF is the preferred PK/PD target and is associated with decreased risk of nephrotoxicity compared to traditional trough targets.
[2024-04-12] MEDS: VANCOMYCIN HCL 750 MG in SODIUM CHLORIDE 0.9% 250 ML IV ONE (18:39)
[2024-04-12 19:09] LABS: Hemoglobin 9.9 g/dl (14.0-18.0); Mean Corpuscular Hemoglobin 27.8 pg (25.0-34.0); Mean Corpuscular Volume 84.3 fL (80.0-100.0); Platelet Count 43 K/uL (130-400); RDW Standard Deviation 52.8 fL (36.4-46.3); Red Blood Count 3.56 M/uL (4.70-6.10); White Blood Count 4.42 K/ul (4.8-10.8)
[2024-04-13] MEDS: MoRPHine SULFATE IR 15 MG TAB (IMMEDIATE RELEASE) PO PRN (04:08)
[2024-04-13 05:52] LABS: Hematocrit (blood only) 26.4 % (42.0-52.0); Hemoglobin 8.6 g/dl (14.0-18.0); Mean Corpuscular Hemoglobin 27.8 pg (25.0-34.0); Mean Corpuscular Hgb Conc 32.6 g/dL (32.0-36.0); Mean Corpuscular Volume 85.4 fL (80.0-100.0); Mean Platelet Volume 10.1 fL (9.4-12.4); Platelet Count 44 K/uL (130-400); RDW Coefficient of Variation 16.9 % (11.5-14.5); RDW Standard Deviation 52.8 fL (36.4-46.3); Red Blood Count 3.09 M/uL (4.70-6.10); White Blood Count 4.01 K/ul (4.8-10.8)
[2024-04-13 06:29] LABS: Calcium 7.4 mg/dl (8.6-10.3); Potassium 3.5 mmol/L (3.5-5.1)
[2024-04-13 06:35] LABS: BUN Creatinine Ratio 20.1 (10-20); Creatinine Clr Calc Pharmacy 34.4 ml/min; Est GFR (African American) 48.7 ml/min
[2024-04-13] MEDS: POLYETHYLENE (MIRALAX) 17 GM PACK PO PRN (08:30)
--- NOTE | 2024-04-13 10:37 | Urology Progress Note ---
Date of Service April 13, 2024 Assessment & Plan (1) Hematuria: (2) Prostate cancer metastatic to bone: Plan 63-year-old male with metastatic prostate cancer and ongoing hematuria, now seems to have improved somewhat on CBI. Neither surgery with cystoscopy and clot evacuation/fulguration or radiation have stopped his bleeding. Much of the surface of the bladder is invaded by friable cancer tissue. As previously discussed, he may benefit from urinary diversion with bilateral percutaneous nephrostomy tubes, although the feasibility of this is highly dependent on his platelet counts. I had a discussion with the patient and his about his overall prognosis and his overall goals of care. He would like to spend time at home if possible. We discussed options such as hospice, continuing his current management strategy, possible transfer for nephrostomy tubes. He wants to talk to his primary urologist, Dr. Novak and is planning to call them tomorrow to do so. Continue to wean CBI as tolerated. Maintain catheter for now. Admission and Anticipated Discharge Date Admission Date: April 09, 2024 Subjective Velasquez catheter has cleared somewhat on CBI Not having any pain over the bladder Hemoglobin has dropped by 2 points from yesterday, platelets down from 73-44. Physical Exam 2 Physical Exam: Frail-appearing, NAD Catheter in place draining light pink urine on slow drip CBI Results & Data Vital Signs (Past 12 Hours) Vital Signs Temp Pulse Resp BP Pulse Ox O2 Del Method 04/13/24 07:26 36.4 C L 71 14 131/76 99 Room Air PG Care Time/CCT Total # of Minutes Spent Total Time Spent with Patient: Total time spent is greater than 50% in coordination of care (as documented) at patient's floor/unit and/or counseling patient: Coding Level of Care Code 91106 SUB INP/OBS CARE 1/25MIN Diagnoses Hematuria R31.0 Hematuria type: gross Prostate cancer metastatic to bone C61; C79.51 (1) Hematuria Hematuria type: gross Qualified Code(s): R31.0 - Gross hematuria
[2024-04-13] MEDS: VANCOMYCIN HCL 750 MG in SODIUM CHLORIDE 0.9% 250 ML IV ONE (10:48)
--- NOTE | 2024-04-13 11:02 | Pharmacy Report ---
Pharmacy PK ABX Note - Date of Service April 13, 2024 - Assessment and Plan Assessment 04/13: * SCr improving, 1.69 this morning, random level 14.1 mcg/ml. * Redosed with 750 mg x 1, regimens 1000 mg q24H and 750 mg q18H both predict within target AUC/JEFF range * Will schedule 750 mg tomorrow morning, may need further adjustments as SCr improves. 04/12 * Random level came back as <3 this morning, upon review dose ordered yesterday was not administered * 1000 mg dose was given ~0630 this morning, SCr improving, obtained additional level at 1530 which resulted as 11.5 mcg/ml * Given improvement in renal function and level < 15 mcg/ml will redose with 750 mg x 1 now and recheck random level in AM 04/11 * 63 year old M receiving vancomycin for treatment of oxacillin-resistant CoNS UTI. * SCr acutely and rapidly increasing. Plan Vancomycin * Target AUC/JEFF of 400-600 mg/L.hr. * 750mg x1 now, schedule doses starting tomorrow, predicted to achieve AUC/JEFF of 400-600 mg/L.hr * Random level to be ordered after assessment of renal function tomorrow AM Pharmacy will continue to follow and will adjust dose/frequency as necessary. Thank you. Pharmacy has transitioned to AUC monitoring for vancomycin. AUC/JEFF is the preferred PK/PD target and is associated with decreased risk of nephrotoxicity compared to traditional trough targets.
--- NOTE | 2024-04-13 11:44 | Hospitalist Progress Note ---
Date of Service April 13, 2024 Assessment & Plan (1) Acute blood loss anemia: (2) Acute kidney injury: (3) Pancytopenia: (4) Obstructed Velasquez catheter: (5) Acute UTI (urinary tract infection): (6) Hematuria: (7) Chronic pain due to malignant neoplastic disease: (8) Prostate cancer metastatic to multiple sites: (9) Severe protein-calorie malnutrition: Plan Patient with ongoing blood loss due to metastatic prostate cancer requiring frequent transfusions. Thrombocytopenia due to bone marrow invasion. Attempted to have of ongoing open discussion with patient and about his poor prognosis. Urology also at bedside. Confirms that nephrostomy tubes would only help a lleviate urine from being in the bladder and potentially allowing the stents and Velasquez to be removed decreasing the potential for bleeding but not completely eliminating it. The metastatic bladder tumor is very friable and content and can potentially continue to bleed especially if the patient remains thrombocytopenic. I had to step out and take a phone call. Upon my return patient was quite an gry. He was quite frustrated. He voiced that he wanted to see a fish hatchery supervisor and requested that I never see him again. He was frustrated that would not allow him to go outside. This was a significant change from my previous visits with him and even from just a few minutes prior. I attempted to do some service recovery and explained to him and answered his questions and addressed his frustration. Unfortunately, could not make any headway. Notified nurse who will notify nursing fish hatchery supervisor of patient's request. Will continue to care for patient throughout the day today. Check hemoglobin later this afternoon, anticipate patient will need additional transfusions. Will discuss with other hospitalist potential change of attending physician for tomorrow. May benefit from having palliative care reevaluate patient. Extremely concerned of allowing patient to go outside with CBI running at high flow, 57 minutes, communication with patient and at bedside, communication with specialist, communication with nurses, reviewing EMR and orders Admission and Anticipated Discharge Date Admission Date: April 09, 2024 Subjective at bedside this morning. No acute events overnight. Pain seems to be controlled. Patient again seen with urology. Physical Exam Physical Exam: Constitutional: Alert, cachectic and frail HEENT: Mucous membranes moist. Lungs: Clear to auscultation, decreased CV: S1-S2, regular Abdomen: Soft, nontender, nondistended : CBI Velasquez in place with light punch colored urine Extremities: No significant edema Neuro: No focal deficits Psych: Angry, frustrated, verbally abusive Results & Data Results & Data Vital Signs (Past 12 Hours) Vital Signs Temp Pulse Resp BP Pulse Ox O2 Del Method 04/13/24 07:26 36.4 C L 71 14 131/76 99 Room Air Diagnostic Findings Reviewed imaging, laboratory and diagnostic studies. Pertinent findings as below. Hemoglobin 8.6, declined from yesterday Platelets 44, declined from yesterday Creatinine 1.69, improved (4) Obstructed Velasquez catheter Encounter type: initial encounter Qualified Code(s): T83.091A - Other mechanical complication of indwelling urethral catheter, initial encounter (6) Hematuria Hematuria type: gross Qualified Code(s): R31.0 - Gross hematuria
[2024-04-13 15:16] LABS: Hematocrit (blood only) 25.1 % (42.0-52.0); Hemoglobin 8.2 g/dl (14.0-18.0); Mean Corpuscular Hemoglobin 28.2 pg (25.0-34.0); Mean Corpuscular Hgb Conc 32.7 g/dL (32.0-36.0); Mean Corpuscular Volume 86.3 fL (80.0-100.0); Mean Platelet Volume 9.8 fL (9.4-12.4); Platelet Count 35 K/uL (130-400); RDW Coefficient of Variation 16.9 % (11.5-14.5); RDW Standard Deviation 53.5 fL (36.4-46.3); Red Blood Count 2.91 M/uL (4.70-6.10); White Blood Count 4.49 K/ul (4.8-10.8)
[2024-04-14] MEDS: VANCOMYCIN HCL 750 MG in SODIUM CHLORIDE 0.9% 250 ML IV SCH (03:46)
[2024-04-14 07:48] LABS: Hematocrit (blood only) 23.7 % (42.0-52.0); Hemoglobin 7.9 g/dl (14.0-18.0); Mean Corpuscular Hemoglobin 28.5 pg (25.0-34.0); Mean Corpuscular Hgb Conc 33.3 g/dL (32.0-36.0); Mean Corpuscular Volume 85.6 fL (80.0-100.0); Mean Platelet Volume 10.7 fL (9.4-12.4); Platelet Count 29 K/uL (130-400); RDW Coefficient of Variation 16.4 % (11.5-14.5); RDW Standard Deviation 51.3 fL (36.4-46.3); Red Blood Count 2.77 M/uL (4.70-6.10); White Blood Count 3.67 K/ul (4.8-10.8)
--- NOTE | 2024-04-14 08:39 | Hospitalist Progress Note ---
Date of Service April 14, 2024 Assessment & Plan (1) Acute blood loss anemia: (2) Acute kidney injury: (3) Pancytopenia: (4) Obstructed Velasquez catheter: (5) Acute UTI (urinary tract infection): (6) Hematuria: (7) Chronic pain due to malignant neoplastic disease: (8) Prostate cancer metastatic to multiple sites: (9) Severe protein-calorie malnutrition: Plan Patient with ongoing blood loss due to metastatic prostate cancer requiring frequent transfusions. Thrombocytopenia due to bone marrow invasion. Attempted to have of ongoing open discussion with patient and about his poor prognosis. Urology also at bedside. Confirms that nephrostomy tubes would only help a lleviate urine from being in the bladder and potentially allowing the stents and Velasquez to be removed decreasing the potential for bleeding but not completely eliminating it. The metastatic bladder tumor is very friable and content and can potentially continue to bleed especially if the patient remains thrombocytopenic. I had to step out and take a phone call. Upon my return patient was quite an gry. He was quite frustrated. He voiced that he wanted to see a patient registration supervisor and requested that I never see him again. He was frustrated that would not allow him to go outside. This was a significant change from my previous visits with him and even from just a few minutes prior. I attempted to do some service recovery and explained to him and answered his questions and addressed his frustration. Unfortunately, could not make any headway. Notified nurse who will notify nursing patient registration supervisor of patient's request. Will continue to care for patient throughout the day today. Check hemoglobin later this afternoon, anticipate patient will need additional transfusions. Will discuss with other hospitalist potential change of attending physician for tomorrow. May benefit from having palliative care reevaluate patient. Extremely concerned of allowing patient to go outside with CBI running at high flow, 57 minutes, communication with patient and at bedside, communication with specialist, communication with nurses, reviewing EMR and orders Admission and Anticipated Discharge Date Admission Date: April 09, 2024 Review of Systems Review of Systems: Neuro: (-) Falls, trauma, slurred speech HEENT: (-) [place], dizziness, dysphagia, visual or auditory changes CV: (-) CP, palpitations, swelling Resp: (-) SOB GI: (-) appetite changes, N/V/D, bowel changes : (-) urinary changes Skin: (-) rashes Psych: (-) anxiety, depression Physical Exam Physical Exam: Neuro: AAOx4, PERRLA, no aphagia, memory changes, CNII-XII grossly intact HEENT: head normocephalic, moist mucus membranes CV: S1/S2, (-) M/G/R, (-) edema, cap refill < 3 seconds Resp: Lungs CTA in all brower. On RA GI: Abdomen S/NT/ND, Ax4 bowel sounds, (-) CVA tenderness Musculoskeletal: 5/5 B/L UE strength, 5/5 B/L LE strength. No gait disturbance Skin: (-) rashes , (-) erythema. Psych: euthymic mood Results & Data Results & Data Vital Signs (Past 12 Hours) Vital Signs Temp Pulse Resp BP Pulse Ox O2 Del Method 04/14/24 07:48 36.5 C 68 12 138/72 99 Room Air Laboratory Results Short CBC 04/13/24 04/14/24 Range/Units 14:48 07:27 WBC 4.49 L 3.67 L (4.8-10.8) K/ul Hgb 8.2 L 7.9 L (14.0-18.0) g/dl Hct 25.1 L 23.7 L (42.0-52.0) % Plt Count 35 L 29 L* (130-400) K/uL (4) Obstructed Velasquez catheter Encounter type: initial encounter Qualified Code(s): T83.091A - Other mechanical complication of indwelling urethral catheter, initial encounter (6) Hematuria Hematuria type: gross Qualified Code(s): R31.0 - Gross hematuria
[2024-04-14] MEDS ORDERED: SODIUM CHLORIDE 0.9% 250 ML IV PRN (09:32)
--- NOTE | 2024-04-14 11:49 | Urology Progress Note ---
Date of Service April 14, 2024 Assessment & Plan (1) Hematuria: (2) Prostate cancer metastatic to bone: Plan 63-year-old male with metastatic prostate cancer and ongoing hematuria. Patient is afebrile with stable vitals Labs reviewedhemoglobin 7.9, platelets 29 today Velasquez patent and draining clear to light pink urine with CBI on moderate slow, slowed slightly during exam Continue to wean CBI as tolerated, maintain catheter As previously discussed, he may benefit from urinary diversion with bilateral percutaneous nephrostomy tubes, although this is highly dependent on his platelet counts Patient would like to proceed with percutaneous nephrostomy tubes Hospital medicine has initiated transfer to [facility] He is pending platelet transfusion Continue with supportive care and medical management per hospital medicine will follow Admission and Anticipated Discharge Date Admission Date: April 09, 2024 Subjective Patient seen and examined at bedside, present He is resting in bed Reports feeling weak, but otherwise doing okay Reports occasional discomfort from catheter Velasquez intact and draining clear to pink urine with CBI on moderate slow Denies fever or chills Review of Systems Constitutional: as per Subjective / HPI Genitourinary: + as per Subjective / HPI Physical Exam Constitutional: + frail appearing Chronically ill-appearing Respiratory: no respiratory distress and no labored breathing Gastrointestinal (Abdomen): Inspection/Auscultation: abdomen normal to inspection Neurologic: awake Psychiatric: Orientation: alert and oriented x 3 Genitourinary: Velasquez catheter intact and draining clear to pink urine with CBI on moderate slow, slowed slightly during exam Results & Data Vital Signs (Past 12 Hours) Vital Signs Temp Pulse Resp BP Pulse Ox O2 Del Method 04/14/24 07:48 36.5 C 68 12 138/72 99 Room Air PG Care Time/CCT Total # of Minutes Spent Total Time Spent with Patient: Total time spent is greater than 50% in coordination of care (as documented) at patient's floor/unit and/or counseling patient: Coding Level of Care Code 32342 SUB INP/OBS CARE 1/25MIN Diagnoses Hematuria R31.0 Hematuria type: gross Prostate cancer metastatic to bone C61; C79.51 (1) Hematuria Hematuria type: gross Qualified Code(s): R31.0 - Gross hematuria
--- NOTE | 2024-04-14 12:30 | Discharge Summary ---
<Statement entered by Damian Allison, DO - 04/14/24 17:05> I have seen and examined the patient and have discussed the case with the provider above. I have reviewed the advanced practitioner's documentation, and I agree with, and take responsibility for that plan of care. Date of Service April 14, 2024 Admission HPI Per Admitting Provider Brett Chaudhari is a 63y/o M with PMHx significant for metastatic prostate cancer [diagnosed in 2020], type 2 diabetes mellitus, peripheral artery disease, nonischemic cardiomyopathy, chronic systolic heart failure, HTN, dyslipidemia, CKD stage III, history of CVA, history of tobacco use disorder, history of left common carotid artery stent placement, history of ureteral stent placement and other medical problems listed below who presented to the ED / his rain catheter being clogged. Patient with recent hospitalizations at [facility] 03/24 to 03/28 in setting of known metastatic prostate cancer With Difficulty urinating, chronic gross hematuria, acute on chronic anemia with generalized weakness, difficulty walking and severe protein calorie malnutrition. He was placed on hospice at discharge. he was then rehospitalized on 03/29 to 04/01 secondary to persistent hematuria and passing clots. Urology was consulted and it was felt that ongoing bleeding was from prostate and metastatic sites within the bladder. He previously had fulguration and radiation that was unsuccessful in stopping the bleeding. It was felt repeat surgical intervention would be low yield and a Rain catheter was placed on this admission. It was recommended he maintain the catheter and hand irrigate as needed for any clot obstruction. patient did require transfusion of platelets and blood. He was also offered possibility of a bilateral nephrostomy tube placements as an option and therefore he was tr ansferred to [facility] to explore this. He was seen and evaluated by his [facility] urologist who had a long discussion with the patient regarding options to continue bilateral ureteral stents and Rain catheter versus transitioning to nephrostomy tubes. Patient at that time was happy with Rain and stent placement and he would like to hold off on any IR procedures. He was discharged with trying manual irrigation of bladder. His pain medication was adjusted per palliative care team and the understanding was hospice would readmit patient after making decision on nephrostomy tubes. Since Hospitalization he did follow up with urologist Dr. Novak. At this visit pt is wishing to puruse nephrostomy tube placements to improve QOL if plt count allows. Pts discharging hgb at [facility] was 8.7 and 9.4 at [facility]. On 04/07 in outpt setting it was 8.8 with plt 31. helps elicit history at bedside. Pt reports rain was clogged this morning. Prior to it being clogged it was draining brown/dark red urine. After cath became clogged he was having significant pain in lower abdomen. In ED nursing was able to irrigate cath and unclog. It is now draining bright red blood. Pt reports feeling very tired and weak. He denies f/c/s, chest pain, sob, cough, uri sx, n/v/d or abd pain. He moved this bowels this morning. They do not move freq due to decreased oral intake. He denies blood in stool but reports dark stool from iron. He again confirms wishes to pursue nephrostomy tubes. Admission Exam Per Admitting Provider Constitutional: Appears older than stated age, chronically ill, cachectic, vitals as above, NAD, sitting up in bed, pleasant, conversing easily Head: Normocephalic, Atraumatic Eyes: PERRL, conjunctivae normal, anicteric sclerae ENMT: external ear and nose normal, oropharynx normal dry membranes Neck: trachea midline, no thyromegaly normal visual inspection Respiratory: normal respiratory effort, lungs clear to auscultation, no wheeze, rales, rhonchi. Normal insp/exp effort, no accessory muscle use Cardiovascular: RRR, no murmur, no edema Vessels: no JVD or carotid bruit Chest: normal inspection of chest Abdomen: normal bowel sounds, soft, nontender, no hepatosplenomegaly Musculoskeletal: no cyanosis or clubbing, AROm x 4, + upper ext twitching noticed during exam Skin: no rashes, warm and dry normal turgor Neurologic: PERRL, EOMI, accommodation nl, no face palsy, no dysarthria CN's II-XI intact bilaterally and moves all extremities Psychiatric: A+Ox3, euthymic affect Lymphatic: no cervical or axillary lymphadenopathy : rain draining red blood Principal Diagnosis Metastatic prostate cancer Discharge Exam Neuro: AAOx4, PERRLA, no aphagia, memory changes, CNII-XII grossly intact grossly cachectic HEENT: head normocephalic, moist mucus membranes CV: S1/S2, (-) M/G/R, (-) edema, cap refill < 3 seconds Resp: Lungs CTA in all brower. On RA GI: Abdomen S/NT/ND, Ax4 bowel sounds, (-) CVA tenderness : three way rain catheter inserted; gross lucina red hematuria; minimal clots noted Musculoskeletal: 5/5 B/L UE strength, 5/5 B/L LE strength. No gait disturbance Skin: (-) rashes , (-) erythema. Psych: euthymic mood Discharge Data Allergies Allergy/AdvReac Type Severity Reaction Status Date / Time amoxicillin [From Augmentin] AdvReac Intermediate DIZZINESS/C Verified 03/17/24 13:50 ONFUSION clavulanic acid AdvReac Intermediate DIZZINESS/C Verified 03/17/24 13:50 [From Augmentin] ONFUSION codeine AdvReac Intermediate Gastrointestinal Verified 03/17/24 13:50 Upset Consultations 04/09/24 08:50 ED Decision to Admit Stat 04/09/24 10:36 Consult Urology Routine 04/13/24 10:10 Consult Patient Rep [Consult Patient Services] Routine 04/13/24 11:45 Consult Palliative Care Routine Hospital Course (1) Acute blood loss anemia: (2) Acute kidney injury: (3) Pancytopenia: (4) Obstructed Rain catheter: (5) Acute UTI (urinary tract infection): (6) Hematuria: (7) Chronic pain due to malignant neoplastic disease: (8) Prostate cancer metastatic to multiple sites: (9) Severe protein-calorie malnutrition: Total Time Total Time Spent Total Time Spent (In Minutes): Total time spent 72 minutes with > 50% of that time spent coordinating, documenting, and providing care for this patient excluding time spent in the performance of separately billed services. All of the aforementioned completed while collaborating with the assigned attending physician, Dr. Trent Allison, for a full treatment plan. Please see their addendum for further details. Discharge Plan Discharge Items Patient Disposition: Transfer Acute Care Hospital Reason For Visit: GROSS HEMATURIA IN SETTING OF METASTATIC PROSTATE Discharge Diagnosis: metastatic prostate cancer Condition on Discharge: Good Activity: As commented below Activity Comment: bed rest given low platelet count Non-emergency contact: Primary Care Provider and Urologist Call non-emergency contact if: you have any medication questions, you have a fever and your temperature is above 101.5 Follow-up/Referrals: Dru Fritz MD [Primary Care Provider] - ( ) Diet: Carb Consistent or DM2 Addtl Attending Provider Instructions: You were admitted to the hospital on 04/09 with worsening abdominal pain secondary to your metastatic prostate cancer, along with hematuria. A three way catheter was placed for continuous irrigation of your bladder; however, unfortunately, the bleeding has continued. Additionally, your hemoglobin and plt count continue to decrease. You were given a blood and platelet transfusion over the weekend. Today, your hemoglobin level is 7.9 and your platelet level is 29. There has been conversation about your having a urinary diversion with bilateral percutaneous nephrostomy tube placement. Given the complexity of your illness, a goals of care conversation has been discussion to talk about your options. While there is understanding that your cancer is advanced and not curable, having a conversation and evaluation for nephrostomy tube placement could provide you with symptom relief. You have expressed you are willing to proceed with this evaluation. I would strongly consider involving Hospice again with your care if you do have the nephrostomy tubes placed as Hospice can assist with keeping you at home and controlling your symptoms in the event you would liek to transition away from aggressive treatment to a more conservative approach to your care. Unfortunately, [facility] does not have the resources that include Interventional Radiology in order to have this procedure performed. [facility] typically has Interventional Radiology; however, they do not currently. To avoid a delay in your care, we have proceeded with your approval, to investigate having your transferred to [facility]. You have been received as a patient at [facility] under the care of Dr. Chirag Moulton. You will receive one dose of platelets prior to your departure. We appreciate your allowing us to care for you while you were at the [facility]. We wish you well. Pending Studies at Discharge: No Stand-Alone Forms: My [facility] Skilled Items Patient informed of condition?: Yes DNR: Yes Discharge Level of Care: Other Communicable Disease: No Discharge Prognosis: Stable Lines: Peripheral IV Urinary Catheter: Yes (Three way CBI ) Medications and DC Order Prescriptions: No Action acetaminophen [Tylenol Extra Strength] 500 mg tablet 1,000 mg PO Q6H PRN (Reason: Pain) Tradjenta 5 mg tablet 5 mg PO QAM buspirone 5 mg tablet 5 mg PO TID Jardiance 25 mg tablet 25 mg PO QAM Hold Instructions: Hold until told to resume by Nephrology ondansetron HCl 8 mg Tablet 8 mg PO DIRECTED PRN (Reason: Nausea) prochlorperazine maleate [Compazine] 10 mg tablet 10 mg PO DIRECTED PRN (Reason: Nausea) K-Phos Original 500 mg tablet,soluble 500 mg PO BID morphine 15 mg Tablet Extended Release 15 mg PO BID tamsulosin 0.4 mg Capsule 0.4 mg PO QAM Qty: 30 0RF metoprolol tartrate 25 mg Tablet 12.5 mg PO BID Qty: 30 0RF magnesium chloride [Mag 64] 64 mg Tablet,Delayed Release (Dr/Ec) 64 mg PO BID Qty: 60 0RF lidocaine HCl 2 % jelly in applicator 1 ml EXT BID PRN (Reason: Other) atorvastatin 80 mg tablet 80 mg PO DAILY tramadol 50 mg tablet 150 mg PO TID PRN (Reason: Pain, Moderate) calcitriol 0.25 mcg capsule 0.25 mcg PO DAILY calcium carbonate [Tums] 200 mg calcium (500 mg) tablet,chewable 500 mg PO DAILY cyanocobalamin (vitamin B-12) 1,000 mcg Tablet 1,000 mcg PO DAILY ferrous sulfate [FeroSul] 325 mg (65 mg iron) Tablet 325 mg PO DAILY ergocalciferol (vitamin D2) 1,250 mcg (50,000 unit) capsule 1,250 mcg PO MARIANO morphine 15 mg tablet 15 mg PO Q4H PRN (Reason: pain) Discharge Orders: Discharge Order (Routine); Ordered 04/14/24 Ordered By: Clarissa Roche Admission Data Admit Date/Time: 04/09/24 08:54 Attending Provider: Damian Allison Admit Provider: Spencer Ruff Primary Care Provider: Dru Fritz Other Providers: Spencer Ruff; Casimiro Alas; [facility]
[2024-04-14 15:39] LABS: Hematocrit (blood only) 22.8 % (42.0-52.0); Hemoglobin 7.4 g/dl (14.0-18.0); Mean Corpuscular Hemoglobin 27.5 pg (25.0-34.0); Mean Corpuscular Hgb Conc 32.5 g/dL (32.0-36.0); Mean Corpuscular Volume 84.8 fL (80.0-100.0); Mean Platelet Volume 9.4 fL (9.4-12.4); Platelet Count 42 K/uL (130-400); RDW Coefficient of Variation 16.6 % (11.5-14.5); RDW Standard Deviation 51.3 fL (36.4-46.3); Red Blood Count 2.69 M/uL (4.70-6.10); White Blood Count 4.46 K/ul (4.8-10.8)
--- NOTE | 2024-04-14 16:03 | Hospitalist Progress Note ---
<Statement entered by Damian Allison, - 04/14/24 17:05> I have seen and examined the patient and have discussed the case with the provider above. I have reviewed the advanced practitioner's documentation, and I agree with, and take responsibility for that plan of care. Date of Service April 14, 2024 Assessment & Plan (1) Thrombocytopenia: (2) Pancytopenia: (3) Acute blood loss anemia: (4) Blood clot in bladder: (5) Hematuria: (6) Prostate cancer metastatic to multiple sites: (7) HLD (hyperlipidemia): (8) HTN (hypertension): (9) DM2 (diabetes mellitus, type 2): (10) BPH with obstruction/lower urinary tract symptoms: Plan Obstructed Rain catheter Hematuria Metastatic prostate cancer to bone - currently not undergoing any further treatment s/p trial of chemo/xrt Admit to medical continue manual irrigation prn consult urology transfuse as below follows urology Dr. Novak - plan is to undergo b/l nephrostomy tube placement if plt count allows as OP Follows Onc Dr. Queen; plan for transfer to [facility] with IR services for evaluation for possible percutaneous nephrostomy tube placement Receiving care doctor: Dr. Chirag Moulton ETC TBD; likely 1800 on 04/14 Acute on chronic anemia in setting of previous chemotherapy and chronic bleeding from hematuria Thrombocytopenia hgb 8.0, was 9.4 on discharge from [facility]; received 1 UPRBC and plt over the weekend Blood consent was obtained from the patient (or patient delegate) as delegated by Dr. Ruff. Risks and benefits were explained. All questions were answered, and the patient (or patient delegate) was offered the opportunity to discuss with attending physician and declined. 04/14: Hgb 7.9--> 7.4; if patient ends up staying in the hospital due to delay in transport; recommend administering 1 UPRBC. Plt 29--> one bag plts administered; increased to 42 on recheck Abnormal UA await urine culture, empirically tx with IV rocephin given BP initially low on arrival will obtain blood cultures, but otherwise no suspicion for sepsis at this time T2DM hold Tradjenta and Jardiance novolog per protocol A1C 7.1 on 03/25/24 H/O Hypocalcemia Syndrome, Bone Metastases: ionized calcium normal, appears baseline ~6-8; place on Will continue calcium supplementation but switch to suspension as pt can't take tablet Chronic Cancer-Related Pain: continue Morphine ER15mg BID, pt prefers tramadol over IR Morphine, so will continue Tramadol Other chronic medical conditions: Continue other home medications as ordered. DVT Prophylaxis: none in setting of thrombocytopenia /anemia Code Status: DNR/DNI - discussed with pt and Dispo: Pt is currently w/o home services, was on [facility] hospice but was dropped due to being hospitalized, would like to explore other hospice agencies and would like to continue home hospice vs Patient and would like to proceed with hospice post nephrostomy tube placement if indicated. Admission and Anticipated Discharge Date Admission Date: April 09, 2024 Subjective Pt sitting his hospital bed, frustrated with plan of care Pt denies MARROQUIN, dizziness, chest pain, SOB Continues to have blood noted in CBI rain bag Cachectic on examination Plt count 29 today; down from 35. Replaced with 1 bag of platelets--> increased to 42 Hgb 7.9 today; down from 8.2; recheck 7.4. Lengthy conversation regarding goals of care; planning for transfer to tertiary the [facility] for evaluation for percutaneous nephrostomy tube placement planning on transfer over next 1.5 hours; if patient stays at [facility] overnight or later due to delay in transport; would recommend blood transfusion while here. Review of Systems Review of Systems: Neuro: (-) Falls, trauma, slurred speech HEENT: (-) MARROQUIN, dizziness, dysphagia, visual or auditory changes CV: (-) CP, palpitations, swelling Resp: (-) SOB GI: (-) appetite changes, N/V/D, bowel changes : (+) lucina red blood from three way rain catheter Skin: (-) rashes Psych: (-) anxiety, depression Physical Exam Physical Exam: Neuro: AAOx4, PERRLA, no aphagia, memory changes, CNII-XII grossly intact grossly cachectic HEENT: head normocephalic, moist mucus membranes CV: S1/S2, (-) M/G/R, (-) edema, cap refill < 3 seconds Resp: Lungs CTA in all brower. On RA GI: Abdomen S/NT/ND, Ax4 bowel sounds, (-) CVA tenderness : three way rain catheter inserted; gross lucina red hematuria; minimal clots noted Musculoskeletal: 5/5 B/L UE strength, 5/5 B/L LE strength. No gait disturbance Skin: (-) rashes , (-) erythema. Psych: euthymic mood Results & Data Results & Data Vital Signs (Past 12 Hours) Vital Signs Temp Pulse Pulse Resp BP BP Pulse Ox 04/14/24 14:42 36.7 C 69 16 136/74 99 04/14/24 14:41 36.7 C 69 16 136/74 99 04/14/24 13:41 36.6 C 67 18 130/71 100 04/14/24 13:11 36.7 C 60 18 123/66 96 04/14/24 12:56 36.5 C 64 17 127/73 95 04/14/24 12:33 36.6 C 70 19 144/84 H 04/14/24 11:53 36.6 C 62 16 132/78 100 04/14/24 08:30 04/14/24 07:48 36.5 C 68 12 138/72 99 O2 Del Method 04/14/24 14:42 04/14/24 14:41 04/14/24 13:41 04/14/24 13:11 04/14/24 12:56 04/14/24 12:33 04/14/24 11:53 Room Air 04/14/24 08:30 Room Air 04/14/24 07:48 Room Air Laboratory Results Short CBC 04/14/24 04/14/24 Range/Units 07:27 15:12 WBC 3.67 L 4.46 L (4.8-10.8) K/ul Hgb 7.9 L 7.4 L (14.0-18.0) g/dl Hct 23.7 L 22.8 L (42.0-52.0) % Plt Count 29 L* 42 L (130-400) K/uL
== END 2024-04-14 19:46 | disposition short-term general hospital (02) | DRG 698 ==
LOC: ED 07:09 → EDINP 08:54 → SUATTDRO 08:54 → 3W 09:27 → 3E 04-13 17:58

== ENCOUNTER 2024-06-05 11:26 | Inpatient (IN) ==
--- NOTE | 2024-06-05 11:41 | Emergency Department Note ---
Impression & Plan Septic shock, Lactic acid acidosis, Acute UTI (urinary tract infection) ED Provider Note Name: MARÍA ELENA VIRGEN Age: 63 Sex: Male Arrives Via: Ambulance Informant: Patient, EMS, ED Provider: Miguel Grossman MD Chief Complaint: Illness Impression: As per impressions above Medical Decision Makin-year-old gentleman with history of metastatic prostate cancer chronic malnutrition cachexia amongst multiple other medical comorbidities arrives for evaluation of severe weakness worsening confusion and altered mental status. On arrival patient is bit confused he is hypotensive tachycardic and will not febrile does feel warm to touch. Septic workup initiated reveals elevated lactic acid. Does have a low white blood cell count. Despite therapy kilo fluid resuscitation continued hypotension dose pressors begun. Multiple repeat evaluations throughout the patient's stay. Patient's mental status is vastly improved post fluid resuscitation. Workup is consistent with sepsis secondary to UTI. Hospitalist consulted for further management and critical care made aware of patient. Of note patient with soft nontender abdomen, no indication for CT imaging abdomen pelvis emergently but will defer to hospitalist/critical care service for further evaluation Triage/Nursing Notes reviewed by Me Sepsis resuscitation: Patient was given full 30/kg IV normal saline bolus for resuscitation. Sepsis reevaluation: 14:30 on 03/05/24 sepsis reevaluation completed by me. Patient has developed worsening hypotension despite fluid resuscitation. Cap refill is intact, heart rate has improved to the 90s but blood pressure is 80/40. Patient remains awake alert oriented with good mental status. At this point pressors are indicated and will be be ordered. Differential:Viral syndrome, otitis, pharyngitis, pneumonia, influenza, meningitis, urinary tract infection, sepsis, bacteremia, as well as other pathologies. Vital Signs: reviewed and remarkable for hypotensive, tachy Interventions: Normal saline bolus 2 L IV, cefepime IV, vancomycin IV, morphine p.o. Labs:ED labs Reviewed by me and remarkable for lactic acidosis, positive UTI, multiple laboratory abnormalities Imagin view chest x-ray as per my interpretation no infiltrate or effusion appreciated. EKG:As per my interpretation. Indication sepsis. Sinus tachycardia 114 bpm and a QTc of 468. There is no ectopy nor ischemia. When compared to EKG of May 10, 2024 rate is increased. Cardiac/Tele Monitoring: Cardiac Monitoring: An Order was placed for continuous cardiac monitoring. The monitor shows a rate of 110 with a sinus tach rhythm. Consults:Discussed with Dr Keiko Chacon hospitalist who will admit. Discussed withwith Dr Michelle ARMENDARIZ who will further evaluate Plan: Disposition:Hospitalization. Condition: Fair History of Present Illness: 63-year-old male arrives for evaluation of illness. Patient with a history of metastatic prostate cancer on palliative care but denies plan for hospice as he wishes full treatment. Patient states that he has been getting increasingly weak the last few days. Today EMS was called by family for worsening weakness and possible confusion. Patient states he just feels very tired. Denies any fevers, chills, nausea, vomiting, pain, abdominal pain, back pain, urinary symptoms or other concerning signs or symptoms. Past Medical History:See Below Home Medications:See Below Allergies:See Below Vitals:Blood Pressure: 76/40, Pulse 123, RR 22, T 36.8C, O2 98% on RA Physical Exam: GENERAL: Patient is chronically unwell and ill appearing and in minimal distress. Cachectic RESPIRATORY: Tachypneic. Clear to auscultation and equal bilaterally. CARDIOVASCULAR: Tacky.No murmur appreciated. GASTROINTESTINAL: Abdomen soft, non-tender, no peritonitis. BACK: No midline tenderness, no CVA tenderness. Bilateral nephrostomy tubes in place. EXTREMITIES: Normal motion all extremities, no cyanosis, no edema. NEUROLOGIC: Alert and oriented. No focal neurologic deficits appreciated SKIN: No rash, no jaundice, no diaphoresis. PSYCH: Appropriate GCS: 15 ED Course: Times/Reassessments: Vast improvement in patient mentation with IV fluids. Continued hypotension requiring pressors. Critical Care: I have personally spent 90 minutes of critical care time in the direct management of this patient. Septic shock secondary to UTI requiring resuscitation pressors and discussion with multiple consultants.. This was a life/limb threatening event. This 90 minutes is in excess of all separately billable procedures. Miguel Grossman MD Past Med/Surg History Problem List (Updated 06/06/24 @ 12:19 by Miguel Grossman MD) Acute UTI (urinary tract infection) (Acute) Complicated UTI (urinary tract infection) High anion gap metabolic acidosis Lactic acid acidosis (Acute) Septic shock (Acute) Thrombocytopenia (Acute) Anemia (Acute) Weakness (Acute) Acute kidney injury Severe protein-calorie malnutrition Acute blood loss anemia Pancytopenia Thrombocytopenia (Acute) Anemia (Acute) Obstructed Velasquez catheter (Acute) Hematuria (Acute) Prostate cancer metastatic to bone (Acute) Hospice care patient (Acute) Blood clot in bladder (Acute) Anemia (Acute) Hematuria (Acute) Chronic pain due to malignant neoplastic disease Metastasis to bone Prostate cancer metastatic to multiple sites Blood clot in bladder Dyspnea and respiratory abnormalities Elevated lactic acid level (Acute) Thrombocytopenia (Acute) Sepsis (Acute) Non-ST elevation OR (NSTEMI) (Acute) Generalized weakness (Acute) Palliative care by specialist Advanced care planning/counseling discussion Falls Pelvic pain in male Cancer related pain Anemia (Acute) Complication of Velasquez catheter (Acute) Hematuria (Acute) Hypocalcemia syndrome Bilateral hydronephrosis Abnormal blood electrolyte level Symptomatic anemia (Acute) History of CVA (cerebrovascular accident) HFrEF (heart failure with reduced ejection fraction) Acute on chronic anemia (Acute) Acute renal failure superimposed on stage 3 chronic kidney disease (Acute) Pancytopenia due to chemotherapy Adult failure to thrive (Acute) Elevated troponin (Acute) Prostate cancer metastatic to bone (Chronic) Prostate cancer Biopsy on 06/10/21 Tobacco abuse (Chronic) HLD (hyperlipidemia) (Chronic) HTN (hypertension) (Chronic) DM2 (diabetes mellitus, type 2) (Chronic) PAD (peripheral artery disease) BPH with obstruction/lower urinary tract symptoms (Acute) Medical History History of left heart catheterization (LHC) "cardiac cath -02/04 10-20% block" Stroke Surgical History History of left common carotid artery stent placement Family History Mother , in her 80s Myocardial infarction H/O cardiac surgery Diabetes Father , 58yo Myocardial infarction Lung disease 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 Brother No problems noted. Brother No problems noted. Brother No problems noted. Brother No problems noted. Daughter No problems noted. Son No problems noted. Son Diabetes Other Heart disease Hypertension Social History Smoking Status: Current every day smoker Tobacco Type: Cigarettes packs per day: 0.5; Cigarettes Per Day: pack per day; Second Hand Exposure: Yes; Do You Dip or Chew Tobacco: No; Hx Alcohol Use: No Hx Substance Use: No Preferred Language: Mohawk Communication Ability: Impaired Visual Impairment: No Limitations Hearing Ability: Normal Internal Audit Consultant Required: No Beliefs That Will Affect Care: Buddhist marital status: Current Living Situation: Spouse Current Living Situation Comment: , daughter/her spouse current occupational status: retired Feels Safe at Home: Yes Diet: regular caffeine: No during the past year weight has: decreased > 10 lbs Assistive Devices: Bedside Commode, Walker, Wheelchair and Other Allergies Allergies Allergy/AdvReac Type Severity Reaction Status Date / Time amoxicillin [From Augmentin] AdvReac Intermediate DIZZINESS/C Verified 05/20/24 10:42 ONFUSION clavulanic acid AdvReac Intermediate DIZZINESS/C Verified 05/20/24 10:42 [From Augmentin] ONFUSION codeine AdvReac Intermediate Gastrointestinal Verified 05/20/24 10:42 Upset Home Meds Home Medications Medication Instructions Recorded Confirmed acetaminophen 500 mg tablet 1,000 mg PO Q6H PRN Pain 12/06/22 06/05/24 (Tylenol Extra Strength) linagliptin 5 mg tablet (Tradjenta) 5 mg PO QAM 12/06/22 06/05/24 potassium phosphate, monobasic 500 500 mg PO BID 01/11/24 06/05/24 mg soluble tablet (K-Phos Original) buspirone 5 mg tablet 5 mg PO TID 03/11/24 06/05/24 morphine 15 mg immediate release 15 mg PO Q4H PRN pain 03/29/24 06/05/24 tablet calcitriol 0.25 mcg capsule 0.25 mcg PO DAILY 04/09/24 06/05/24 cyanocobalamin (vitamin B-12) 1,000 mcg PO DAILY 04/09/24 06/05/24 1,000 mcg tablet ergocalciferol (vitamin D2) 1,250 1,250 mcg PO MARIANO 04/09/24 06/05/24 mcg (50,000 unit) capsule ferrous sulfate 325 mg (65 mg 325 mg PO DAILY 04/09/24 06/05/24 iron) tablet (FeroSul) sacubitril 24 mg-valsartan 26 mg 1 tab PO BID 05/07/24 06/05/24 tablet (Entresto) calcium carbonate 500 mg/5 mL (as 500 mg PO BID 06/05/24 06/05/24 calcium carb 1,250 mg/5 mL) oral suspension metoprolol tartrate 25 mg tablet 12.5 mg PO DAILY 06/05/24 06/05/24 mirtazapine 15 mg tablet 15 mg PO HS 06/05/24 06/05/24 morphine 30 mg tablet,extended 30 mg PO AMHS 06/05/24 06/05/24 release ondansetron 8 mg disintegrating 8 mg PO Q8H PRN Nausea And Vomiting 06/05/24 06/05/24 tablet prochlorperazine maleate 10 mg 10 mg PO Q6 PRN Nausea And Vomiting 06/05/24 06/05/24 tablet sennosides 8.6 mg capsule (senna) 17.2 mg PO HS 06/05/24 06/05/24 Previous Rx's Medication Instructions Recorded magnesium chloride 64 mg 64 mg PO BID #60 tabs 02/22/24 (magnesium chloride) tablet,delayed release (Mag 64) tamsulosin 0.4 mg capsule 0.4 mg PO QAM #30 caps 02/22/24 Results & Data (ED) Vital Signs Vital Signs - 24 hr 06/05/24 12:35 06/05/24 12:44 06/05/24 13:45 Pulse Rate 93 H Pulse Rate [Apical] 94 H 101 H Respiratory Rate 14 18 Respiratory Effort / Characteristics Non-Labored Non-Labored Respiratory Depth Normal Normal Respiratory Pattern Regular Regular Blood Pressure [Right Arm] 104/80 81/57 L Blood Pressure Mean [Right Arm] 88 65 Blood Pressure Position [Right Arm] Lying Pulse Oximetry 99 100 Oxygen Delivery Method Room Air Laboratory Data 06/06/24 03:48 06/06/24 03:48 Lab Results 06/05/24 06/05/24 Range/Units 11:46 11:55 WBC 3.00 L (4.8-10.8) K/ul RBC 2.69 L (4.70-6.10) M/uL Hgb 7.5 L (14.0-18.0) g/dl Hct 23.5 L (42.0-52.0) % MCV 87.4 (80.0-100.0) fL MCH 27.9 (25.0-34.0) pg MCHC 31.9 L (32.0-36.0) g/dL RDW Std Deviation 48.9 H (36.4-46.3) fL RDW Coeff of Clara 15.4 H (11.5-14.5) % Plt Count 51 L (130-400) K/uL MPV 9.0 L (9.4-12.4) fL Immature Gran % (Auto) 6.0 % Neut % (Auto) 70.4 % Lymph % (Auto) 13.3 % Chaves % (Auto) 9.7 % Eos % (Auto) 0.3 % Baso % (Auto) 0.3 % Neut # (Auto) 2.11 (1.40-6.50) K/uL Lymph # (Auto) 0.40 L (1.20-3.40) K/uL Chaves # (Auto) 0.29 (0.11-0.59) K/uL Eos # (Auto) 0.01 (0.00-0.50) K/uL Baso # (Auto) 0.01 (0.00-0.20) K/uL Immature Gran # (Auto) 0.18 (0.01-0.20) K/uL Absolute Nucleated RBC 0.02 (0.00-0.12) K/uL Nucleated RBC % (auto) 0.7 % Polychromasia 1+ Anisocytosis Present Sodium 142 (136-145) mmol/L Potassium 4.0 (3.5-5.1) mmol/L Chloride 107 (98-107) mmol/L Carbon Dioxide 18 L (21-32) mmol/L Anion Gap 17 H (3-11) BUN 28 H (6-23) mg/dl Creatinine 1.29 (0.6-1.4) mg/dl Est Cr Clr Drug Dosing 41.4 ml/min Est GFR ( Amer) 67.5 ml/min Est GFR (Non-Af Amer) 58.2 ml/min BUN/Creatinine Ratio 21.7 H (10-20) Glucose 153 H (70-99(Fasting)) mg/dl Lactate 3.4 H* (0.4-2.0) mmol/L Calcium 7.9 L (8.6-10.3) mg/dl Magnesium 2.2 (1.7-2.4) mg/dl Total Bilirubin 1.1 H (0.2-1.0) mg/dl Direct Bilirubin 0.3 H (0-0.2) mg/dl AST 11 L (13-39) U/L ALT 4 L (7-52) U/L Alkaline Phosphatase 1856 H (34-104) U/L Troponin I High Sens 41.0 H (0-20) pg/ml Total Protein 5.8 L (6.0-8.3) gm/dl Albumin 3.2 L (3.4-5.0) gm/dl Procalcitonin 0.73 H (0-0.5) ng/ml SARS-CoV-2 (PCR) NEGATIVE (Negative) Influenza Type A (PCR) Negative (Neg) Influenza Type B (PCR) Negative (Neg) RSV (RT-PCR) Negative (Neg) Administered Medications Buspirone HCl (Buspirone 5 Mg Tab) 5 mg PO TID GENIA Stop: 07/05/24 20:59 Last Admin: 06/06/24 07:52 Dose: 5 mg Documented By: Admin: 06/05/24 21:03 Dose: 5 mg Documented By: JAK Calcitriol (Calcitriol 0.25 Mcg Capsule) 0.25 mcg PO DAILY GENIA Stop: 07/06/24 08:59 Last Admin: 06/06/24 07:53 Dose: 0.25 mcg Documented By: CUONG Calcium Carbonate (Calcium Carbonate 1,250 Mg/5 Ml Udc) 1,250 mg PO BID GENIA Stop: 07/05/24 20:59 Last Admin: 06/06/24 07:54 Dose: 1,250 mg Documented By: Admin: 06/05/24 21:03 Dose: 1,250 mg Documented By: JAK Cyanocobalamin (Cyanocobalamin (B-12) 500 Mcg Tablet) 1,000 mcg PO DAILY GENIA Stop: 07/06/24 08:59 Last Admin: 06/06/24 07:53 Dose: 1,000 mcg Documented By: CUONG Diclofenac Sodium (Diclofenac Sod 1% Gel 100 Gm Tube) 2 gm EXT Q12H GENIA; Protocol Stop: 07/05/24 21:59 Last Admin: 06/06/24 10:08 Dose: 2 gm Documented By: Admin: 06/05/24 22:39 Dose: 2 gm Documented By: JAK Docusate Sodium (Docusate Sodium 100 Mg Cap) 100 mg PO BID GENIA Stop: 07/05/24 20:59 Last Admin: 06/06/24 07:59 Dose: 100 mg Documented By: Admin: 06/05/24 21:03 Dose: 100 mg Documented By: JAK Ferrous Sulfate (Ferrous Sulfate 325 Mg Tab) 325 mg PO DAILY GENIA Stop: 07/06/24 08:59 Last Admin: 06/06/24 07:54 Dose: 325 mg Documented By: CUONG Norepinephrine Bitartrate (Levophed/D5w) 4 mg in 250 mls @ 0 mls/hr IV .Q0M GENIA; Protocol Stop: 07/05/24 13:59 Last Titration: 06/05/24 19:30 Dose: 0 mcg/kg/min, 0 mls/hr Documented By: [facility] Titration: 06/05/24 19:12 Dose: 0.01 mcg/kg/min, 1.9 mls/hr Documented By: JAK Co-signed By: CAM Titration: 06/05/24 18:35 Dose: 0.01 mcg/kg/min, 1.9 mls/hr Documented By: Titration: 06/05/24 18:10 Dose: 0.02 mcg/kg/min, 3.8 mls/hr Documented By: Titration: 06/05/24 17:18 Dose: 0.03 mcg/kg/min, 5.7 mls/hr Documented By: Titration: 06/05/24 16:50 Dose: 0.04 mcg/kg/min, 7.6 mls/hr Documented By: Admin: 06/05/24 14:33 Dose: 0.05 mcg/kg/min, 9.5 mls/hr Documented By: ARTURO Co-signed By: YUVAL Cefepime HCl 2,000 mg/ Syringe 20 mls @ 5 mls/min IV Q12H GENIA; Protocol Stop: 06/16/24 00:00 Last Admin: 06/05/24 23:44 Dose: 5 mls/min Documented By: JAK Vancomycin HCl 1,000 mg/ (Sodium Chloride) 270 mls @ 200 mls/hr IV Q24H GENIA Stop: 06/08/24 00:00 Last Infusion: 06/06/24 01:05 Dose: Infused Documented By: [facility] Admin: 06/05/24 23:44 Dose: 200 mls/hr Documented By: JAK Potassium Phosphate 21 mmol/ (Sodium Chloride) 507 mls @ 88 mls/hr IV ONE ONE Stop: 06/06/24 12:45 Last Admin: 06/06/24 07:52 Dose: 88 mls/hr Documented By: CUONG Insulin Aspart (Insulin Aspart Per Unit Charge) 0 units SC [facility] Stop: 07/05/24 16:29 Last Admin: 06/06/24 08:12 Dose: Not Given Documented By: Admin: 06/05/24 21:20 Dose: Not Given Documented By: Admin: 06/05/24 18:34 Dose: Not Given Documented By: CUONG Co-signed By: ESTELA Metoprolol Tartrate (Metoprolol Tartrate 25 Mg Tab) 12.5 mg PO DAILY GENIA Stop: 07/06/24 08:59 Last Admin: 06/06/24 07:55 Dose: 12.5 mg Documented By: CUONG Mirtazapine (Mirtazapine Tab 15 Mg Tab) 15 mg PO [facility] Stop: 07/05/24 20:59 Last Admin: 06/05/24 21:02 Dose: 15 mg Documented By: JAK Miscellaneous (Icu Protocol For Hyperglycemia) 1 each N/A [facility] Stop: 06/07/24 16:29 Last Admin: 06/06/24 08:12 Dose: Not Given Documented By: Admin: 06/05/24 21:20 Dose: 1 each Documented By: Admin: 06/05/24 17:19 Dose: 1 each Documented By: CUONG Morphine Sulfate (Morphine Sulfate Ir 15 Mg Tab (Immediate Release)) 30 mg PO Q4H PRN PRN Reason: pain Stop: 06/19/24 15:48 Last Admin: 06/06/24 08:01 Dose: 30 mg Documented By: Admin: 06/05/24 21:03 Dose: 30 mg Documented By: JAK Sennosides (Senna 8.6 Mg Tab) 17.2 mg PO [facility] Stop: 07/05/24 20:59 Last Admin: 06/05/24 21:03 Dose: 17.2 mg Documented By: JAK Discontinued Medications Sodium Chloride (Nss) 1,000 mls @ 999 mls/hr IV .Q1H1M ONE Stop: 06/05/24 12:37 Last Infusion: 06/05/24 12:48 Dose: Infused Documented By: Admin: 06/05/24 11:52 Dose: 999 mls/hr Documented By: FERNANDA Sodium Chloride (Nss) 1,000 mls @ 999 mls/hr IV .Q1H1M ONE Stop: 06/05/24 13:22 Last Infusion: 06/05/24 19:00 Dose: Infused Documented By: Admin: 06/05/24 12:48 Dose: 999 mls/hr Documented By: ARTURO Cefepime HCl (Maxipime) 2,000 mg in 20 mls @ 5 mls/min IV NOW STA; Protocol Stop: 06/05/24 12:26 Last Admin: 06/05/24 12:48 Dose: 5 mls/min Documented By: ARTURO Vancomycin HCl 1,000 mg/ (Sodium Chloride) 520 mls @ 200 mls/hr IV NOW ONE Stop: 06/05/24 14:58 Last Infusion: 06/05/24 13:38 Dose: Infused Documented By: Admin: 06/05/24 13:38 Dose: 200 mls/hr Documented By: ARTURO Sodium Chloride (Nss) 500 mls @ 100 mls/hr IV .Q5H GENIA Stop: 06/06/24 00:57 Last Infusion: 06/05/24 22:00 Dose: Infused Documented By: Admin: 06/05/24 16:50 Dose: 100 mls/hr Documented By: CUONG Parenteral Electrolytes (Plasma-Lyte A Ph 7.4) 1,000 mls @ 80 mls/hr IV .[id number] GENIA Stop: 07/05/24 22:29 Last Infusion: 06/06/24 11:23 Dose: Infused Documented By: Admin: 06/05/24 22:39 Dose: 80 mls/hr Documented By: JAK Miscellaneous (Stat Iv Infusion Titration Per Protocol) 1 each N/A NOW STA Stop: 06/05/24 13:50 Last Admin: 06/05/24 17:19 Dose: 1 each Documented By: CUONG Morphine Sulfate (Morphine Sulfate Ir 15 Mg Tab (Immediate Release)) 30 mg PO NOW STA Stop: 06/05/24 13:17 Last Admin: 06/05/24 14:37 Dose: 30 mg Documented By: VME Discharge Plan Visit Data Chief Complaint: Illness Stated Complaint: CONFUSION ED Provider: Miguel Grossman Discharge Problem: Septic shock, Lactic acid acidosis, Acute UTI (urinary tract infection) Patient Disposition: Admitted As Inpatient Discharge Instructions Interventions: ED Discharge Assessment Last Done: 06/05/24 16:42
[2024-06-05] MEDS: SODIUM CHLORIDE 0.9% 1,000 ML IV ONE ×2 (11:52→12:48)
[2024-06-05 12:09] LABS: Hematocrit (blood only) 23.5 % (42.0-52.0); Hemoglobin 7.5 g/dl (14.0-18.0); Mean Corpuscular Hemoglobin 27.9 pg (25.0-34.0); Mean Corpuscular Hgb Conc 31.9 g/dL (32.0-36.0); Mean Corpuscular Volume 87.4 fL (80.0-100.0); Nucleated RBC # (auto) 0.02 K/uL (0.00-0.12); Nucleated RBC % (auto) 0.7 %; Platelet Count 51 K/uL (130-400); RDW Coefficient of Variation 15.4 % (11.5-14.5); RDW Standard Deviation 48.9 fL (36.4-46.3); Red Blood Count 2.69 M/uL (4.70-6.10)
[2024-06-05] MEDS ORDERED: VANCOMYCIN CONSULT ACTIVE PRN (12:23)
[2024-06-05 12:29] LABS: Albumin Level 3.2 gm/dl (3.4-5.0); Bilirubin Direct 0.3 mg/dl (0-0.2); Bilirubin,Total 1.1 mg/dl (0.2-1.0); Calcium 7.9 mg/dl (8.6-10.3); Magnesium 2.2 mg/dl (1.7-2.4)
[2024-06-05 12:34] LABS: Anisocytosis Present; Basophils # (auto) 0.01 K/uL (0.00-0.20); Basophils % (auto) 0.3 %; Eosinophils # (auto) 0.01 K/uL (0.00-0.50); Eosinophils % (auto) 0.3 %; Immature Granulocytes # (auto) 0.18 K/uL (0.01-0.20); Lymphocytes % (auto) 13.3 %; Monocytes # (auto) 0.29 K/uL (0.11-0.59); Monocytes % (auto) 9.7 %; Neutrophils # (auto) 2.11 K/uL (1.40-6.50); Neutrophils % (auto) 70.4 %; Polychromasia 1+
[2024-06-05 12:35] LABS: BUN Creatinine Ratio 21.7 (10-20); Creatinine Clr Calc Pharmacy 41.4 ml/min; Est GFR (African American) 67.5 ml/min; Est GFR (Non-African American) 58.2 ml/min
--- NOTE | 2024-06-05 12:37 | XRay Report ---
XR chest 1V portable HISTORY: Sepsis COMPARISON: Chest 05/10/2024. FINDINGS: No pneumothorax. No pleural effusions. The heart is normal in size. No focal lung consolida tions to suggest a pneumonia. No evidence for pulmonary edema. 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 IMPRESSION: 1. No acute process within the chest. 2. 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 ACT 112: Negative or not required by law. Electronically signed by: Ángel Linder M.D. 06/05/2024 12:35 PM
[2024-06-05] MEDS: CEFEPIME 2,000 MG/20 ML VIAL IV STA (12:48)
[2024-06-05 12:54] LABS: Influenza A virus by PCR Negative (Neg); Influenza B virus by PCR Negative (Neg); RSV by PCR Negative (Neg); SARS CoV2 RNA(COVID-19) Ceph NEGATIVE (Negative)
[2024-06-05 13:33] LABS: Total Protein 5.8 gm/dl (6.0-8.3)
[2024-06-05] MEDS: VANCOMYCIN HCL 1,000 MG in SODIUM CHLORIDE 0.9% 500 ML IV ONE (13:38)
--- NOTE | 2024-06-05 13:53 | History & Physical Report ---
Date of Service June 05, 2024 Assessment & Plan (1) Septic shock: (2) Complicated UTI (urinary tract infection): (3) High anion gap metabolic acidosis: Plan: Septic shock Complicated urinary tract infection Anasarca Acute metabolic encephalopathy Lactic acidosis S/P nephrostomy tubes Anion gap metabolic acidosis --CT ABD:Bilateral nephrostomy tubes are in good position. No hydronephrosis. Interval development of small to moderate bilateral pleural effusions and a small pericardial effusion. Interlobular septal thickening at the lung bases may represent mild congestive change. Extensive osteoblastic metastatic disease. This appears to have slightly progressed. Body wall edema and mesenteric edema suggestive of anasarca. Bladder wall thickening. Moderate fecal retention. No definite bowel wall thickening or obstruction. Distended gallbladder. No gallbladder wall thickening. Subtle nodularity along the major fissures which is partially imaged on this study. Left perinephric and left iliac lymphadenopathy persists. --Elevated lactate, procalcitonin levels --Blood culture pending --Obtain urine culture --Empirically started on broad-spectrum antibiotics Vanco, cefepime --Appreciate housekeeping department worker help Urology consulted Started on pressors --Continue IV fluids, monitor closely for volume overload Pancytopenia Secondary to metastatic disease Monitor CBC Chronic troponin elevation Troponin levels better when compared to prior admissions Patient denies any chest pain Metastatic prostate cancer S/P nephrostomy tubes Poor prognosis Needs to address goals of care Currently follows with palliative care and [facility] as outpatient DM Type II: Last HbA1c 7.1 Continue insulin per protocol Monitor blood glucose levels Other chronic conditions Chronic systolic heart failure Peripheral vascular disease s/p left carotid artery stent placement Hypertension Hyperlipidemia CKD stage III CVA Tobacco use disorder per record Hold antihypertensives given septic shock Continue other home medications as able Monitor volume status closely while on IV fluids DVT Px: SCDs: Anemia, thrombocytopenia, h/o gross hematuria Code Status DNI/DNR as per my discussion with patient and patient's family History of Present Illness Chief Complaint: Confusion Primary Care Provider: Dru Fritz MD Patient is a 63-year-old male with history of metastatic prostate cancer, peripheral vascular disease, diabetes mellitus, chronic systolic heart failure, hypertension, hyperlipidemia, stage III CKD, S/P nephrostomy tube, CVA, tobacco use disorder, left carotid artery stent placement, thrombocytopenia and other medical problems presents with history of confusion, lethargy which has been gradually worsening for the last 2 days. Most of the history is obtained from patient's at bedside. Patient was also noted to have fever 2 days ago and he complains of chronic lower abdominal pain per family. Patient has been constipated as well. Patient's family noted him to have been hallucinating and believed his urine is darker colored. He is due for nephrostomy tube exchange on July 16 per family. He was noted to be hypotensive while in the ED. His blood pressure transiently improved with IV fluids. Currently he is or iented to person and place during my encounter while in ED. Denies any history of chest pain, dyspnea, dizziness, pedal edema, cough, hemoptysis, headache, nausea, vomiting, hematuria. Given persistent hypertension, patient plan to be started on pressors and admitted to ICU for further care. Patient prefers to be treated for current condition but goal is to keep him comfortable. Patient's family understands and agrees with the plan. Allergies Allergy/AdvReac Type Severity Reaction Status Date / Time amoxicillin [From Augmentin] AdvReac Intermediate DIZZINESS/C Verified 05/20/24 10:42 ONFUSION clavulanic acid AdvReac Intermediate DIZZINESS/C Verified 05/20/24 10:42 [From Augmentin] ONFUSION codeine AdvReac Intermediate Gastrointestinal Verified 05/20/24 10:42 Upset Home Medications Medication Instructions Recorded Confirmed Type acetaminophen 500 mg tablet 1,000 mg PO Q6H PRN Pain 12/06/22 06/05/24 History (Tylenol Extra Strength) linagliptin 5 mg tablet (Tradjenta) 5 mg PO QAM 12/06/22 06/05/24 History potassium phosphate, monobasic 500 500 mg PO BID 01/11/24 06/05/24 History mg soluble tablet (K-Phos Original) magnesium chloride 64 mg 64 mg PO BID #60 tabs 02/22/24 06/05/24 Rx (magnesium chloride) tablet,delayed release (Mag 64) tamsulosin 0.4 mg capsule 0.4 mg PO QAM #30 caps 02/22/24 06/05/24 Rx buspirone 5 mg tablet 5 mg PO TID 03/11/24 06/05/24 History morphine 15 mg immediate release 15 mg PO Q4H PRN pain 03/29/24 06/05/24 History tablet calcitriol 0.25 mcg capsule 0.25 mcg PO DAILY 04/09/24 06/05/24 History cyanocobalamin (vitamin B-12) 1,000 mcg PO DAILY 04/09/24 06/05/24 History 1,000 mcg tablet ergocalciferol (vitamin D2) 1,250 1,250 mcg PO MARIANO 04/09/24 06/05/24 History mcg (50,000 unit) capsule ferrous sulfate 325 mg (65 mg 325 mg PO DAILY 04/09/24 06/05/24 History iron) tablet (FeroSul) sacubitril 24 mg-valsartan 26 mg 1 tab PO BID 05/07/24 06/05/24 History tablet (Entresto) calcium carbonate 500 mg/5 mL (as 500 mg PO BID 06/05/24 06/05/24 History calcium carb 1,250 mg/5 mL) oral suspension metoprolol tartrate 25 mg tablet 12.5 mg PO DAILY 06/05/24 06/05/24 History mirtazapine 15 mg tablet 15 mg PO HS 06/05/24 06/05/24 History morphine 30 mg tablet,extended 30 mg PO AMHS 06/05/24 06/05/24 History release ondansetron 8 mg disintegrating 8 mg PO Q8H PRN Nausea And Vomiting 06/05/24 06/05/24 History tablet prochlorperazine maleate 10 mg 10 mg PO Q6 PRN Nausea And Vomiting 06/05/24 06/05/24 History tablet sennosides 8.6 mg capsule (senna) 17.2 mg PO HS 06/05/24 06/05/24 History Past Med/Surg History Problem List (Updated 06/05/24 @ 15:44 by Dion Aden MD) Complicated UTI (urinary tract infection) High anion gap metabolic acidosis Lactic acid acidosis Septic shock Thrombocytopenia (Acute) Anemia (Acute) Weakness (Acute) Acute kidney injury Severe protein-calorie malnutrition Acute blood loss anemia Pancytopenia Thrombocytopenia (Acute) Anemia (Acute) Obstructed Velasquez catheter (Acute) Hematuria (Acute) Prostate cancer metastatic to bone (Acute) Hospice care patient (Acute) Blood clot in bladder (Acute) Anemia (Acute) Hematuria (Acute) Chronic pain due to malignant neoplastic disease Metastasis to bone Prostate cancer metastatic to multiple sites Blood clot in bladder Dyspnea and respiratory abnormalities Elevated lactic acid level (Acute) Thrombocytopenia (Acute) Sepsis (Acute) Non-ST elevation [place] (NSTEMI) (Acute) Generalized weakness (Acute) Palliative care by specialist Advanced care planning/counseling discussion Falls Pelvic pain in male Cancer related pain Anemia (Acute) Complication of Velasquez catheter (Acute) Hematuria (Acute) Hypocalcemia syndrome Bilateral hydronephrosis Abnormal blood electrolyte level Symptomatic anemia (Acute) History of CVA (cerebrovascular accident) HFrEF (heart failure with reduced ejection fraction) Acute on chronic anemia (Acute) Acute renal failure superimposed on stage 3 chronic kidney disease (Acute) Pancytopenia due to chemotherapy Adult failure to thrive (Acute) Elevated troponin (Acute) Prostate cancer metastatic to bone (Chronic) Prostate cancer Biopsy on 06/10/21 Tobacco abuse (Chronic) HLD (hyperlipidemia) (Chronic) HTN (hypertension) (Chronic) DM2 (diabetes mellitus, type 2) (Chronic) PAD (peripheral artery disease) BPH with obstruction/lower urinary tract symptoms (Acute) Medical History History of left heart catheterization (LHC) "cardiac cath -02/04 10-20% block" Stroke Surgical History History of left common carotid artery stent placement Family History Mother , in her 80s Myocardial infarction H/O cardiac surgery Diabetes Father , 58yo Myocardial infarction Lung disease 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 Brother No problems noted. Brother No problems noted. Brother No problems noted. Brother No problems noted. Daughter No problems noted. Son No problems noted. Son Diabetes Other Heart disease Hypertension Social History Smoking Status: Current every day smoker Tobacco Type: Cigarettes packs per day: 0.5; Cigarettes Per Day: pack per day; Second Hand Exposure: Yes; Do You Dip or Chew Tobacco: No; Hx Alcohol Use: No Hx Substance Use: No Preferred Language: Cantonese [place] Communication Ability: Effective Visual Impairment: No Limitations Hearing Ability: Normal Physical Therapist Aide Required: No Beliefs That Will Affect Care: None marital status: Current Living Situation: Spouse Current Living Situation Comment: , daughter/her spouse current occupational status: retired Feels Safe at Home: Yes Diet: regular caffeine: No during the past year weight has: decreased > 10 lbs Assistive Devices: Hospital Bed and Wheelchair Review of Systems Review of Systems: All systems reviewed & are unremarkable except as noted in Subjective Physical Exam Physical Exam: Physical Exam: Vitals signs as noted above General Appearance: Thin, frail, ill-appearing, no apparent distress Head: normocephalic, Atraumatic Eyes: normal inspection, EOMI Neck: supple, Trachea midline Respiratory/Chest: Normal breath sounds, CTA, No accessory muscle use Cardiovascular: S1, S2, No murmur, + tachycardia Abdomen/GI:Soft, mild tender lower quadrant, bowel sounds present, + nephrostomy tubes Extremities/Musculoskeletal:normal inspection, no edema Neurologic/Psych:AAOX2, grossly no focal neurological deficits Skin: normal color, warm Results & Data Results & Data Vital Signs (Past 12 Hours) Vital Signs Temp Pulse Pulse Resp BP BP Pulse Ox 06/05/24 12:44 93 H 06/05/24 12:35 94 H 14 104/80 99 06/05/24 11:42 36.3 C L 122 H 20 74/57 L 100 O2 Del Method 06/05/24 12:44 06/05/24 12:35 Room Air 06/05/24 11:42 Room Air Laboratory Results Short CBC 06/05/24 Range/Units 11:46 WBC 3.00 L (4.8-10.8) K/ul Hgb 7.5 L (14.0-18.0) g/dl Hct 23.5 L (42.0-52.0) % Plt Count 51 L (130-400) K/uL BMP 06/05/24 11:46 Sodium 142 Potassium 4.0 Chloride 107 Carbon Dioxide 18 L BUN 28 H Creatinine 1.29 Glucose 153 H Calcium 7.9 L Liver Function 06/05/24 Range/Units 11:46 Total Bilirubin 1.1 H (0.2-1.0) mg/dl Direct Bilirubin 0.3 H (0-0.2) mg/dl AST 11 L (13-39) U/L ALT 4 L (7-52) U/L Alkaline Phosphatase 1856 H (34-104) U/L Albumin 3.2 L (3.4-5.0) gm/dl Diagnostic Findings --CT ABD:Bilateral nephrostomy tubes are in good position. No hydronephrosis. Interval development of small to moderate bilateral pleural effusions and a small pericardial effusion. Interlobular septal thickening at the lung bases may represent mild congestive change. Extensive osteoblastic metastatic disease. T his appears to have slightly progressed. Body wall edema and mesenteric edema suggestive of anasarca. Bladder wall thickening. Moderate fecal retention. No definite bowel wall thickening or obstruction. Distended gallbladder. No gallbladder wall thickening. Subtle nodularity along the major fissures which is partially imaged on this study. Left perinephric and left iliac lymphadenopathy persists. --CXR: No acute process within the chest. 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 ECG Additional Comments: --EKG: Sinus tachycardia, nonspecific ST-T wave abnormalities, QTc 468.
--- NOTE | 2024-06-05 13:59 | Critical Care Consultation ---
Date of Consultation June 05, 2024 Assessment & Plan (1) Septic shock: Reason Critically Ill: 63-year-old male with history of metastatic prostate cancer to bone with history of bilateral nephrostomy tubes, history of thrombocytopenia and anemia, hypocalcemia syndrome with bone metastases, chronic cancer related pain, type 2 diabetes who presented to the emergency department. Patient is currently being treated through a palliative care service, no active hospice services. PLAN: Neuro: Chronic malignancy related pain: Not opiate andre -Patient previously on 15 mg morphine every 4 hours immediate release as needed -Increase to 30 mg as this was recently done by his palliative care service Resp: DO NOT INTUBATE in event of respiratory insufficiency CV: Hypotension secondary to severe sepsis/septic shock -Wean norepinephrine as tolerated Fluids/Renal: Normal saline at 100 mL/h to discontinue after 2 L ID: Severe sepsis presumptive urinary source -Cefepime and vancomycin GI/Nutrition: Patient able to eat or drink for comfort Heme: Pancytopenia -1 unit packed red blood cells secondary to anemia and vasoactive requirements with endorgan ischemia DVT prophylaxis: [] Endocrine: ICU hyperglycemia protocol Vascular access: Peripheral IVs, patient does not want advanced access Code Status: DNR DNI, DNI in event of respiratory insufficiency, okay with vasoactive's via peripheral route Disposition: ICU given vasoactive requirement -Patient strongly desiring to transfer home and questioned discontinuing all medical treatments at this time focusing solely on comfort. Discussed with social work unable to establish home hospice given time of day will work to establish this tomorrow and reassess patient's goals of care. (2) Thrombocytopenia: (3) Anemia: (4) Lactic acid acidosis: (5) High anion gap metabolic acidosis: Supervising Physician Co-Signing Physician Notes I have personally spent 90 minutes of critical care time in the direct management of this patient. This is a life/limb threatening event. This includes time spent evaluating patient, direct bedside care, chart review, placing orders, interpretation of diagnostic studies, discussion with consultants, patient, and/or family members regarding treatment decisions, as well as other required patient management activities. This time is exclusive of all separately billable procedures, and teaching time and separate from and in addition to any other critical care service time. History of Present Illness Reason for Consultation: Need for vasoactive medication Requesting Physician: Keiko RITTER History of Present Illness Patient is a 63-year-old male with a history of metastatic prostate cancer not amenable to chemo or radiation. He has been engaged with palliative care however unwilling to transition to hospice at the present time. Over last several days he is an increasing weakness and his spouse. He was brought to the emergency department and felt to be septic secondary to change of the characteristics of his nephrostomy output. The nephrostomies were placed approximately 3 months ago. Patient's spouse/caregiver was concerned that she was unable to treat his symptoms and brought him in to make him be more comfortable. When talking with the patient he seems to vacillate between desiring to pass away at home versus discontinuing all interventions at this time. From medical standpoint the patient was volume expanded with crystalloid and started on vasoactive medications. Initially the patient's 30 mg of morphine immediate release oral administration was held as the patient was undergoing active resuscitation. Patient's blood pressure improved with volume expansion and we were able to give him his morphine, the patient's blood pressure down trended and he was started on peripheral vasoactive medication. We discussed the patient's condition, he at this time appears to have insight that this is a noncurable disease process and his overarching goal is to remain comfortable and remain at home. His main focus appears to resolve around ability to obtain his pain medication and reports that he is very loopy and disoriented with the medication however it is the only thing that appears to be making his pain tolerable. He is willing to stay and undergo treatment with the goal of going home however he seems to perseverate upon access of getting the pain medication. I informed him we will administer pain medication and we may need to use vasoactive medication to keep the blood pressure up as that is the only way to control the pain and allow him to go home, we discussed stopping all medical interventions and just treating to comfort. At this time patient still desires to go home and is willing to attempt to undergo treatment to improve his condition to the point that he can be safely discharged while simultaneously engaging hospice as he does not have hospice at home established at the present time. Allergies Allergy/AdvReac Type Severity Reaction Status Date / Time amoxicillin [From Augmentin] AdvReac Intermediate DIZZINESS/C Verified 05/20/24 10:42 ONFUSION clavulanic acid AdvReac Intermediate DIZZINESS/C Verified 05/20/24 10:42 [From Augmentin] ONFUSION codeine AdvReac Intermediate Gastrointestinal Verified 05/20/24 10:42 Upset Home Medications Medication Instructions Recorded Confirmed Type acetaminophen 500 mg tablet 1,000 mg PO Q6H PRN Pain 12/06/22 06/05/24 History (Tylenol Extra Strength) linagliptin 5 mg tablet (Tradjenta) 5 mg PO QAM 12/06/22 06/05/24 History potassium phosphate, monobasic 500 500 mg PO BID 01/11/24 06/05/24 History mg soluble tablet (K-Phos Original) magnesium chloride 64 mg 64 mg PO BID #60 tabs 02/22/24 06/05/24 Rx (magnesium chloride) tablet,delayed release (Mag 64) tamsulosin 0.4 mg capsule 0.4 mg PO QAM #30 caps 02/22/24 06/05/24 Rx buspirone 5 mg tablet 5 mg PO TID 03/11/24 06/05/24 History morphine 15 mg immediate release 15 mg PO Q4H PRN pain 03/29/24 06/05/24 History tablet calcitriol 0.25 mcg capsule 0.25 mcg PO DAILY 04/09/24 06/05/24 History cyanocobalamin (vitamin B-12) 1,000 mcg PO DAILY 04/09/24 06/05/24 History 1,000 mcg tablet ergocalciferol (vitamin D2) 1,250 1,250 mcg PO MARIANO 04/09/24 06/05/24 History mcg (50,000 unit) capsule ferrous sulfate 325 mg (65 mg 325 mg PO DAILY 04/09/24 06/05/24 History iron) tablet (FeroSul) sacubitril 24 mg-valsartan 26 mg 1 tab PO BID 05/07/24 06/05/24 History tablet (Entresto) calcium carbonate 500 mg/5 mL (as 500 mg PO BID 06/05/24 06/05/24 History calcium carb 1,250 mg/5 mL) oral suspension metoprolol tartrate 25 mg tablet 12.5 mg PO DAILY 06/05/24 06/05/24 History mirtazapine 15 mg tablet 15 mg PO HS 06/05/24 06/05/24 History morphine 30 mg tablet,extended 30 mg PO AMHS 06/05/24 06/05/24 History release ondansetron 8 mg disintegrating 8 mg PO Q8H PRN Nausea And Vomiting 06/05/24 06/05/24 History tablet prochlorperazine maleate 10 mg 10 mg PO Q6 PRN Nausea And Vomiting 06/05/24 06/05/24 History tablet sennosides 8.6 mg capsule (senna) 17.2 mg PO HS 06/05/24 06/05/24 History Patient History Medical History History of left heart catheterization (LHC) "cardiac cath 10-20% block" Stroke Surgical History History of left common carotid artery stent placement Family History Mother , in her 80s Myocardial infarction H/O cardiac surgery Diabetes Father , 58yo Myocardial infarction Lung disease 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 Brother No problems noted. Brother No problems noted. Brother No problems noted. Brother No problems noted. Daughter No problems noted. Son No problems noted. Son Diabetes Other Heart disease Hypertension Social History Smoking Status: Current every day smoker Tobacco Type: Cigarettes packs per day: 0.5; Cigarettes Per Day: pack per day; Second Hand Exposure: Yes; Do You Dip or Chew Tobacco: No; Tobacco Cessation Education Requested by Patient: No Hx Alcohol Use: No Hx Substance Use: No Preferred Language: Cantonese Amharic Communication Ability: Effective Visual Impairment: No Limitations Hearing Ability: Normal [place] Required: No Beliefs That Will Affect Care: None marital status: Current Living Situation: Spouse Current Living Situation Comment: , daughter/her spouse current occupational status: retired Other Information That Helps Us Care for You: No Feels Safe at Home: Yes Safety Concerns: Feels Safe At This Time Diet: regular caffeine: No during the past year weight has: decreased > 10 lbs Assistive Devices: Hospital Bed and Wheelchair Physical Exam Physical Exam: General: Alert. nontoxic. Frail in appearance Skin: Warm, dry, Head: Atraumatic Ears, nose, mouth and throat: airway patent Cardiovascular: Normal peripheral perfusion Respiratory: no respiratory distress Gastrointestinal: Non distended, bilateral nephrostomy tubes present Musculoskeletal: No deformity Results & Data Results & Data Vital Signs (Past 12 Hours) Vital Signs Temp Pulse Pulse Resp BP BP Pulse Ox 06/05/24 12:44 93 H 06/05/24 12:35 94 H 14 104/80 99 06/05/24 11:42 36.3 C L 122 H 20 74/57 L 100 O2 Del Method 06/05/24 12:44 06/05/24 12:35 Room Air 06/05/24 11:42 Room Air Critical Care Results & Data Vital Signs (Past 12 Hours) Vital Signs Temp Pulse Pulse Resp BP BP Pulse Ox 06/05/24 12:44 93 H 06/05/24 12:35 94 H 14 104/80 99 06/05/24 11:42 36.3 C L 122 H 20 74/57 L 100 O2 Del Method 06/05/24 12:44 06/05/24 12:35 Room Air 06/05/24 11:42 Room Air Lab & Micro Results (Past 24 Hours) RBC 2.69 M/uL (4.70-6.10) L 06/05/24 WBC 3.00 K/ul (4.8-10.8) L 06/05/24 Hgb 7.5 g/dl (14.0-18.0) L 06/05/24 Hct 23.5 % (42.0-52.0) L 06/05/24 MCV 87.4 fL (80.0-100.0) 06/05/24 MCH 27.9 pg (25.0-34.0) 06/05/24 MCHC 31.9 g/dL (32.0-36.0) L 06/05/24 RDW Standard Deviation 48.9 fL (36.4-46.3) H 06/05/24 RDW Coefficient of Variation 15.4 % (11.5-14.5) H 06/05/24 Plt Count 51 K/uL (130-400) L 06/05/24 MPV 9.0 fL (9.4-12.4) L 06/05/24 Nucleated Red Blood Cells % (auto) 0.7 % 06/05 Nucleated RBC Absolute Count (auto) 0.02 K/uL (0.00-0.12) 0 06/05/24 Neutrophils (%) (Auto) 70.4 % 06/05/24 Lymphocytes (%) (Auto) 13.3 % 06/05/24 Monocytes # (Auto) 0.29 K/uL (0.11-0.59) 06/05/24 Eosinophils # (Auto) 0.01 K/uL (0.00-0.50) 06/05/24 Immature Granulocyte % (Auto) 6.0 % 06/05/24 Neutrophils # (Auto) 2.11 K/uL (1.40-6.50) 06/05/24 Lymphocytes # (Auto) 0.40 K/uL (1.20-3.40) L 06/05/24 Monocytes # (Auto) 0.29 K/uL (0.11-0.59) 06/05/24 Eosinophils # (Auto) 0.01 K/uL (0.00-0.50) 06/05/24 Basophils # (Auto) 0.01 K/uL (0.00-0.20) 06/05/24 Immature Granulocyte # (Auto) 0.18 K/uL (0.01-0.20) 4 Polychromasia 1+ 06/05/24 Anisocytosis Present 06/05/24 Na 142 mmol/L (136-145) 06/05/24 K 4.0 mmol/L (3.5-5.1) 06/05/24 Cl 107 mmol/L (98-107) 06/05/24 CO2 18 mmol/L (21-32) L 06/05/24 Anion Gap 17 (3-11) H 06/05/24 BUN 28 mg/dl (6-23) H 06/05/24 Creatinine 1.29 mg/dl (0.6-1.4) 06/05/24 Estimated GFR ( Amer) 67.5 ml/min 06/05/24 Estimated GFR (Non-Af Amer) 58.2 ml/min 06/05/24 BUN/Creatinine Ratio 21.7 (10-20) H 06/05/24 Glu 153 mg/dl (70-99(Fasting)) H 06/05/24 Ca 7.9 mg/dl (8.6-10.3) L 06/05/24 Total Bilirubin 1.1 mg/dl (0.2-1.0) H 06/05/24 Direct Bilirubin 0.3 mg/dl (0-0.2) H 06/05/24 AST 11 U/L (13-39) L 06/05/24 ALT 4 U/L (7-52) L 06/05/24 Alkaline Phosphatase 1856 U/L (34-104) H 06/05/24 TP 5.8 gm/dl (6.0-8.3) L 06/05/24 Albumin 3.2 gm/dl (3.4-5.0) L 06/05/24 Mg 2.2 mg/dl (1.7-2.4) 06/05/24 11:46 Calcium Level 7.9 mg/dl (8.6-10.3) L 06/05/24 11:46 Diagnostic Findings (Past 24 Hours) Chest X-Ray 06/05/24 11:37 XR chest 1V portable HISTORY: Sepsis COMPARISON: Chest 05/10/2024. FINDINGS: No pneumothorax. No pleural effusions. The heart is normal in size. No focal lung consolidations to suggest a pneumonia. No evidence for pulmonary edema. 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 IMPRESSION: 1. No acute process within the chest. 2. 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 ACT 112: Negative or not required by law. Electronically signed by: Ángel Linder M.D. 06/05/2024 12:35 PM I & O Totals 24 Hours 06/04/24 06/05/24 06/06/24 06:59 06:59 06:59 Intake Total 1520 / 1520 Balance 1520 / 1520 Cumulative 06/05/24 11:22 thru 06/05/24 13:38 Intake Total 1520 Balance 1520 RT Ventilator Mngmt (Last Documented) Ventilator Ordered Settings Respiratory Rate 14 06/05/24 12:35 Ventilator - PT Measurements Respiratory Rate 14 Coding Level of Care Code 40640 CRITICAL CARE 1ST 30-74M Additional Critical Care Time Additional 30min Critical Care Time: Yes - 35125 Diagnoses Septic shock A41.9; R65.21 Thrombocytopenia D69.6 Anemia D64.9 Anemia type: unspecified type Lactic acid acidosis E87.20 High anion gap metabolic acidosis E87.29 Additional Codes Critical Care Time - Additional 30min Critical Care Time: Yes - 47088 ([id number]) (3) Anemia Anemia type: unspecified type Qualified Code(s): D64.9 - Anemia, unspecified
[2024-06-05] MEDS ORDERED: SODIUM CHLORIDE 0.9% 250 ML IV PRN ×2 (14:07→16:33)
[2024-06-05] MEDS: NOREPINEPHRINE/D5W 4 MG/250 ML PLCT IV SCH (14:33)
[2024-06-05] MEDS: MoRPHine SULFATE IR 15 MG TAB (IMMEDIATE RELEASE) PO STA (14:37)
--- NOTE | 2024-06-05 15:11 | CT Scan Report ---
ABDOMEN AND PELVIS CT WITHOUT CONTRAST CT DOSE: 468.93 mGy.cm HISTORY: b/l nephrostomy tubes TECHNIQUE: Multiaxial CT images of the abdomen and pelvis were performed without contrast. A dose lo wering technique was utilized adhering to the principles of ALARA. COMPARISON STUDY: Abdomen and pelvis CT 03/29/2024. FINDINGS: Small to moderate bilateral pleural effusions are noted. The heart remains mildly enlarged. Mild interlobular septal thickening at the lung bases suggestive of congestive change. Subtle nodula rity along the major fissures is noted. No pneumoperitoneum. No pneumatosis. Extensive osteoblastic m etastatic disease has slightly progressed. Moderate body wall edema. Trace pericardial effusion. Diff use mesenteric edema. Suboptimal evaluation of the abdomen and pelvis due to the lack of contrast and lack of intraperitoneal fat. The unenhanced liver, adrenal glands, and pancreas unremarkable. The ga llbladder is distended. No gallbladder wall thickening. The spleen is top normal in size. Bilateral p ercutaneous nephrostomy tubes appear in good position. No hydronephrosis. Stable bilateral renal hypo dense lesions suggestive of cysts. Mild fullness within the right ureter. Mild bladder wall thickenin g. Moderate fecal retention. Suboptimal evaluation for bowel pathology due to the lack of intravenous and oral contrast. However, there is no definite bowel wall thickening or obstruction. Left perineph ciera and left common iliac lymphadenopathy again noted. This is similar to the prior study. IMPRESSION: 1. Bilateral nephrostomy tubes are in good position. No hydronephrosis. 2. Interval development of small to moderate bilateral pleural effusions and a small pericardial effu nilam. Interlobular septal thickening at the lung bases may represent mild congestive change. 3. Extensive osteoblastic metastatic disease. This appears to have slightly progressed. 4. Body wall edema and mesenteric edema suggestive of anasarca. 5. Bladder wall thickening. 6. Moderate fecal retention. 7. No definite bowel wall thickening or obstruction. 8. Distended gallbladder. No gallbladder wall thickening. 9. Subtle nodularity along the major fissures which is partially imaged on this study. 10. Left perinephric and left iliac lymphadenopathy persists. ACT 112: Negative or not required by law. Electronically signed by: Ángel Linder M.D. 06/05/2024 3:10 PM
--- OUTSIDE RECORDS SUMMARY | 2024-06-05 15:31 | External Medical Summary | Summary of Care ---
Author Name Unknown Organization [facility] Address [address] [place] [address] Phone [phone] Care Team Providers Care Certified Dental Assistant Name Role Phone Dru Fritz MD Primary Care Provider [phone] Reason for Referral * Evaluate & Treat - Unlimited Visits (Within 30 days (routine)) - Authorized Specialty Diagnoses / Procedures Referred By Contac t Referred To Contact Psychology Diagnoses Prostate cancer metastatic to multiple sites (HCC) Anxiety Estefani Guajardo PA-C [address] [place] [address] Referral ID Status Reason Start Date Expiration Date Visits Requested Visits Authorized [id number] Authorized Specialty Services Required 05/28/2024 [id number] Question Answer Referral Priority Within 30 days (routine) Where should this appointment be scheduled? [facility] Reason for Referral: Mood/Anxiety/Depression * Social Care (Within 10 days (routine)) - Authorized Specialty Diagnoses / Procedures Referred By Contac t Referred To Contact Test Conductor Diagnoses Cancer related pain Prostate cancer metastatic to multiple sites (HCC) Estefani Guajardo PA-C [address] [place] [address] Referral ID Status Reason Start Date Expiration Date Visits Requested Visits Authorized [id number] Authorized Specialty Services Required 05/28/2024 [id number] Question Answer Referral Priority Within 10 days (routine) Where should this appointment be scheduled? [facility] Role Return Checker Referring Reason: Arrange Home Health, Coordinate Cancer Resources Comments No- patient has Conekyblade , but I'm wondering if there are any other [facility] support like home labs, [place]? Reason for Visit * Reason Comments NEW PATIENT * Evaluate & Treat - Unlimited Visits (Within 3 days (urgent)) - Authorized Specialty Diagnoses / Procedures Referred By Contjanene t Referred To Contact Hospice and Palliative Medicine / Palliative Medicine Diagnoses Need for case management follow-up Malignant neoplasm metastatic to bone (HCC) Prostate cancer metastatic to multiple sites (HCC) Dru Fritz MD [address] [place] [address] Referral ID Status Reason Start Date Expiration Date Visits Requested Visits Authorized [id number] Authorized Specialty Services Required 05/23/2024 [id number] Encounter Details Date Type Department Care Team (Late st Contact Info) Description 05/28/2024 9:00 AM EDT Telemedicine Palliative Medicine, [facility] [address] [facility] 5th [place] [address] Estefani Guajardo PA-C [address] [place] [address] Cancer related pain*; Prostate cancer metastatic to multiple sites (HCC); Constipation due to opioid therapy; Loss of appetite; Anemia, unspecified type; Severe protein-energy malnutrition (HCC); Controlled substance agreement signed; Anxiety Allergies Active Allergy Reactions Criticality Noted Date Comments Amoxicillin-Pot Clavulanate 05/17/20 22 Dizziness and confused documented as of this encounter (statuses as of 05/28/2024) Medications Medication Sig Dispensed Refills Start Date End Date Status Zeppelin ULTRA SYSTEM W/DEVICE KITIndications:D M type 2, goal A1c below 7 Use up to four times a day as directed 1 Kit 0 4 Active Blood Glucose Monitoring Suppl (ONETOUCH VERIO) w/Device KIT Use up to 4 times a day E11.9 1 Kit 0 Active Xgeva 120 MG/1.7ML Subcutaneous Solution (Denosumab) Inject 120 mg under the skin Every Month. Active K-Phos 500 MG Oral Tablet (potassium phosphate)Indica tions:Hypophosph atemia TAKE ONE TABLET BY MOUTH TWICE A DAY 180 Tablet 1 3 Active Atorvastatin Calcium 80 MG Oral Tablet (Lipitor)Indicat ions:History of CVA (cerebrovascular accident),Dyslip idemia TAKE ONE TABLET BY MOUTH EVERY DAY IN THE MORNING 90 Tablet 2 3 08/26/20 24 Active Ondansetron HCl 8 MG Oral Tablet (Zofran)Indicati ons:Prostate cancer metastatic to multiple sites (HCC) Take 1 Tablet by mouth every 8 hours as needed for Nausea. 30 Tablet 2 3 Active B-12 1000-400 MCG Sublingual Tablet Sublingual Place under the tongue. Active Calcitriol 0.25 MCG Oral Capsule (Rocaltrol) DAILY IN THE MORNING 4 Active Saline Flush 0.9 % Intravenous Solution Bladder irrigation every 6 hourly as needed for hematuria with clotting 125 mL 30 4 Active linaGLIPtin 5 MG Oral Tablet (Tradjenta) Take 1 Tablet by mouth in the morning. 30 Tablet 3 4 Active Magnesium Chloride 64 MG Oral Tablet Delayed Release (Mag64) Take 1 Tablet by mouth in the morning and 1 Tablet before bedtime. Active Docusate Sodium 100 MG Oral Capsule (Colace) Take 1 Capsule by mouth 2 times a day as needed for Constipation. 1-2 capsules as needed for constipation. Active FeroSul 325 (65 Fe) MG Oral TabletIndication s:Need for case management follow-up,Blood loss anemia Take 1 Tablet by mouth in the morning. 30 Tablet 3 4 Active Metoprolol Tartrate 25 MG Oral Tablet (Lopressor)Indic ations:Need for case management follow-up,HTN, goal below 130/80 Take 1/2 Tablet by mouth in the morning. 30 Tablet 2 4 Active busPIRone HCl 5 MG Oral Tablet (Buspar)Indicati ons:Need for case management follow-up,Prosta te cancer metastatic to multiple sites (HCC) Take 1 Tablet by mouth in the morning and 1 Tablet at noon and 1 Tablet before bedtime. 90 Tablet 3 4 Active Calcium Carbonate Antacid 1250 MG/5ML Oral SuspensionIndica tions:Need for case management follow-up,Malign ant neoplasm metastatic to bone (HCC) Take 5 mL by mouth in the morning and 5 mL before bedtime. 473 mL 3 4 Active Sodium Chloride (PF) 0.9 % Injection Solution 10 mL by Device route in the morning. Flush bilateral nephrostomy daily. 180 mL 3 4 Active [place] Catheter Access Port Change as needed (Max 600ml drainage bag) 2 Each 3 4 Active Sodium Chloride Flush 0.9 % Intravenous Solution Use as directed to flush 600 mL 3 4 Active Sacubitril-Valsa rtan 24-26 MG Oral Tablet (Entresto) Take 1 Tablet by mouth in the morning and 1 Tablet before bedtime. 4 Active Tamsulosin HCl 0.4 MG Oral Capsule (Flomax)Indicati ons:Prostate cancer metastatic to multiple sites (HCC) Take 1 Capsule by mouth in the morning. 90 Capsule 3 4 Active Ergocalciferol 1.25 MG (84678 UT) Oral Capsule (Vitamin D2(Drisdol)) Take 1 Capsule by mouth once a week. 12 Capsule 3 4 Active Morphine Sulfate 15 MG Oral Tablet (Msir)Indication s:Controlled substance agreement signed Take 1 Tablet by mouth every 4 hours as needed for Pain, Breakthrough. 30 Tablet 4 Active LORazepam 0.5 MG Oral Tablet (Ativan)Indicati ons:Primary insomnia Take 1 Tablet by mouth 3 times a day as needed for Anxiety. 30 Tablet 4 Active Mirtazapine 15 MG Oral Tablet (Remeron)Indicat ions:Loss of appetite Take 1 Tablet by mouth at bedtime. 30 Tablet 1 4 Active Senna 8.6 MG Oral TabletIndication s:Constipation due to opioid therapy Take 2 Tablets by mouth at bedtime. 60 Tablet 1 4 Active Prochlorperazine Maleate 10 MG Oral Tablet (Compazine)Indic ations:Prostate cancer metastatic to multiple sites (HCC) Take 1 Tablet by mouth every 6 hours as needed for Nausea. 30 Tablet 2 4 Active Morphine Sulfate ER 30 MG Oral Tablet Extended Release (Ms Contin)Indicatio ns:Cancer related pain Take 1 Tablet by mouth in the morning and 1 Tablet before bedtime. 4 Active Naloxone HCL FOR CAREGIVER 0.4 MG/ML IJ SOLNIndications: Cancer related pain Inject 1 mL into outer thigh for suspected opioid overdose. Seek medical help immediately. [email or web address].be [email or web address] 1 mL 3 4 05/29/20 24 Active Prochlorperazine Maleate 10 MG Oral Tablet (Compazine)Indic ations:Prostate cancer metastatic to multiple sites (HCC) Take 1 Tablet by mouth every 6 hours as needed for Nausea. 30 Tablet 2 3 05/28/20 24 Discontinued(Ref ill) Morphine Sulfate ER 15 MG Oral Tablet Extended Release (MS Contin)Indicatio ns:Cancer associated pain Take 1 Tablet by mouth in the morning and 1 Tablet before bedtime. 60 Tablet 4 05/28/20 24 Discontinued traMADol HCl 50 MG Oral Tablet (Ultram)Indicati ons:Malignant neoplasm metastatic to bone (HCC) Take 2 Tablets by mouth 3 times a day as needed for Moderate Pain 180 Tablet 4 05/28/20 24 Discontinued(Med ication/Dose Changed) fentaNYL 75 MCG/HR Transdermal Patch 72 Hour (Duragesic)Indic ations:Cancer related pain Place 1 Patch over 72 hours topically on the skin every 3 days. Apply for pain 10 Patch 4 05/28/20 24 Discontinued(Med ication List Clean Up) documented as of this encounter (statuses as of 05/28/2024) Active Problems Problem Noted Date Diagnosed Date Cancer related pain 04/02/2024 Palliative care encounter 04/02/2024 Goals of care, counseling/discussion 04/02/2024 Severe protein-energy malnutrition 04/02/2024 Gross hematuria 04/01/2024 Thrombocytopenia 04/01/2024 Blood loss anemia 04/01/2024 Controlled substance agreement signed 03/07/2024 Hydronephrosis due to obstruction of bladder Malignant neoplasm metastatic to bone 11/04/2021 Prostate [...] as of this encounter (statuses as of 05/28/2024) Resolved Problems Problem Noted Date Diagnosed Date Resolved Date Encounter for antineoplastic chemotherapy 08/17/2023 03/07/2024 Incomplete emptying of bladder 02/15/2022 03/10/2022 Renal [...] as of this encounter (statuses as of 05/28/2024) Immunizations No known immunizationsdocumented as of this [...] the money to buy more. Never true 05/26/20 24 Within the past 12 months, t he food you bought just didn't last and you didn't have money to get more. Never true 05/26/2024 Childcare Answer Date Recorded Do you feel overwhelmed with taking care of a child, family member or friend? No 05/26/2024 Does your family need help f inding childcare? (Household - for ages 0-17 years) Not on file 05/26/2024 Clothing Answer Date Recorded Have you been unable to get clothing when it was really needed? No 05/26/2024 Is your family able to get c lothes or diapers when needed? (Household - for ages 0-17 years) Not on file 05/26/2024 Personal Safety Answer Date Recorded Do you feel unsafe or have concerns for your saf ety? No 05/26/2024 Do you have concerns for you r family's safety? (Household - for ages 0-17 years) Not on file 05/26/2024 Utilities Answer Date Recorded Do you have trouble paying y our heating, water, or electric bill? No 05/26/2024 Is your family able to pay t he heat, water, or electric bill? (Household - for ages 0-17 years) Not on file 05/26/2024 Does your family have access to good internet? (Household - for ages 0-17 years) Not on file 05/26/2024 Employment Status Answer Date Recorded Are you unemployed or without regular income? No 05/26/2024 Does the household have a re lar source of income? (Household - for ages 0-17 years) Not on file 05/26/2024 Social Connections Answer Date Recorded How often do you feel lonely or isolated from th ose around you? Rarely 05/26/2024 Financial Resource Strain Answer Date R ecorded Do you have any trouble payi ng for your medications, or do you think you might in the future? No 05/26/2024 Does your family have troubl e paying for medicine? (Household - for ages 0-17 years) Not on file 05/26/2024 Transportation Needs Answer Date Record ed READ ONLY Do you have troubl e getting a ride to medical visits or work? Never True 05/26/2024 Does your family have a hard time getting a ride to doctors visits? (Household - for ages 0-17 years) Not on file 05/26/2024 Has lack of transportation k ept you from medical appointments, meetings, work, or from getting things needed for daily living? Check all that apply. No 05/26/2024 Do you (or your family) have trouble finding or paying for a ride (transportation)? (Household - for ages 0-17 years) Not on file 05/26/2024 Housing Stability Answer Date Recorded Do you currently live in a s helter or have no steady place to sleep at night? No 05/26/2024 READ ONLY Do you think you a re at risk of becoming homeless? No 05/26/2024 Does your family worry about paying for your home or becoming homeless? (Household - for ages 0-17 years) Not on file 0 05/26/2024 Are you homeless or worried that you might be in the future? No 05/26/2024 Are you (or your family) jonel eless or worried that you might be in the future? (Household - for ages 0-17 years) Not on file Food Insecurity Answer Date Recorded Do you need food for this week? No 05/26/2024 Are you able to get enough f ood for your family? (Household - for ages 0-17 years) Not on file 05/26/2024 Does your family need food t his week? (Household - for ages 0-17 years) Not on file 05/26/2024 Do you always have enough fo od for your family? (Household - for ages 0-17 years) Not on file 05/26/2024 Sex and Gender Information Value Date Recorded Sex Assigned at Not on file Gender Identity Not on file Sexual Orientation Not on file Job Start Date Occupation Industry Not on file Not on file Not on file documented as of this encounter Functional Status Functional Status Response Date of Assess ment Are you deaf or do you have serious difficulty h earing? Yes 04/14/2024 Are you blind or do you have serious difficulty seeing, even when wearing glasses? No 04/14/2024 Do you have serious difficul ty walking or climbing stairs? (5 years old or older) Yes 04/14/2024 Do you have difficulty dress ing or bathing? (5 years old or older) Yes 04/14/2024 Because of a physical, menta l, or emotional condition, do you have difficulty doing errands alone such as visiting a doctor s office or shopping? (15 years old or older) Yes 04/14/20 Cognitive Status Response Date of Assessm ent Because of a physical, menta l, or emotional condition, do you have serious difficulty concentrating, remembering, or making decisions? (5 years old or older) No 04/14/2024 documented as of this encounter Plan of Treatment Upcoming Encounters Date Type Department Care Team (Late st Contact Info) Description 05/30/2024 9:15 AM EDT Scheduled Telephone Palliative Medicine, [address] 5th Floor [place] [id number] [place], Nurse Palliative Medicine [address] [place] [id number] 06/10/2024 11:00 AM EDT Telemedicine Nutrition Services [facility] [place] [address] [place] [address] Dorothea Mcmillan, RDN [address] [place] [address] 06/16/2024 3:30 PM EDT Office Visit Urology, [facility] [address] [facility] [place] [address] Isaías Novak MD [address] [facility] [place] [address] 07/01/2024 4:00 PM EDT Office Visit Family Practice [facility] [address] [place] [address] Dru Fritz MD [address] [place] [address] 07/16/2024 2:00 PM EDT Hospital Encounter OR GL, Operating Room, [facility] - 4th Floor [address] [place] [phone] Raz Potts MD [address] [place] [address] 07/16/2024 2:00 PM EDT - 07/16/2024 2:48 PM EDT Surgery OR [facility], Operating Room, [facility] - 4th Floor [address] [place] [phone] Raz Potts MD [address] [place] [address] CHANGE OF PERCUTANEOUS TUBE OR DRAINAGE CATHETER WITH XRAY AND CONTRAST MEDIUM 07/17/2024 10:30 AM EDT Appointment Interventional Radiology [facility], [place] 1st Floor [address] [place] [facility] [phone] Scheduled Procedures Name Priority Associated Diagnoses Date/Ti me CHANGE OF PERCUTANEOUS TUBE OR DRAINAGE CATHETER WITH XRAY AND CONTRAST MEDIUM Gross hematuria 07/16/2024 2:00 PM EDT Scheduled Referrals Name Type Priority Associated Diagnoses Orde r Schedule POPULATION HEALTH REFERRAL OP Referral Within 10 days (routine) Cancer related pain Prostate cancer metastatic to multiple sites (HCC) Ordered: 05/28/2024 ONCOLOGY BEHAVIORAL HEALTH REFERRAL OP Referral Within 30 days (routine) Prostate cancer metastatic to multiple sites (HCC) Anxiety Ordered: 05/28/2024 Health Maintenance Due Date Last Done Comments DISCUSS TOBACCO CESSATION (R EFER TO SMARTSET #3291) 1959 COVID-19 Vaccine (#1) 1964 Zoster Vaccines (1 of 2) 1978 Influenza Vaccine (FLU shot) (#1) 2024 Depression Monitoring 05/26/2025 05/26/2024 Diabetic Foot Exam Discontinued 05/20/2019, 0 03/27/2018, 10/28/2015 Diabetic Eye Exam Discontinued 03/02/2021, , 01/24/2016, Additional history exists Albumin/Creatinine Ratio Discontinued 022, 02/13/2018, 10/27/2015, Additional history exists documented as of this encounter Medical Devices Implanted Type Area Engine Installer Device Identifier Shelf Expiration Date Model / Serial / Lot Stent Trnscarotid Enroute 7x40 - [id number] Implanted:Qty: 1 on 01/25/2021 by Zeinab Robert MD at [facility] Left: [facility] [id number] 05/31/2023 [id number] / / [id number] documented as of this encounter Visit Diagnoses Diagnosis Cancer related pain- Primary Neoplasm related pain (acute) (chronic) Prostate cancer metastatic to multiple sites (HCC) Malignant neoplasm of prostate Constipation due to opioid therapy Loss of appetite Anorexia Anemia, unspecified type Severe protein-energy malnutrition (HCC) Other severe protein-calorie malnutrition Controlled substance agreement signed Encounter for long-term (current) use of other medications Anxiety Anxiety state, unspecified Gross hematuria documented in this encounter Advance Directives * Limited Code (Latest Code Status on File) Date Activated Date Inactivated Comments 04/14/2024 10:46 PM 04/17/2024 5:58 PM This order reflects the patients wishes and were consensually agreed upon. Okay with defibrillation but not CPR. Question Answer Comments Discussion of Advance Directives occurred with: Patient * Limited Code Date Activated Date Inactivated Comments 04/01/2024 8:39 [...] patient or by statute hierarchy) Care Teams Certified Dental Assistant Relationship Specialty Start Date End Date Dru Fritz MD [address] [facility] [place] [address] PCP - General Family Medicine 01/24/21 documented as of this encounter
--- OUTSIDE RECORDS SUMMARY | 2024-06-05 15:31 | External Medical Summary | Summary of Care ---
Author Name Unknown Organization [facility] Address [address] [place] [address] Phone [phone] Care Team Providers Care Agency Development Manager Name Role Phone Dru Fritz MD Primary Care Provider [phone] Reason for Visit * Reason Onset Date Comments Med Request 05/28/2024 [place] Encounter Details Date Type Department Care Team (Late st Contact Info) Description 05/28/2024 Telephone Hematology/Oncology [facility] [address] [place] [address] Services, Scheduling [address] [place] [address] Med Request (Bret) Allergies Active Allergy Reactions Criticality Noted Date Comments Amoxicillin-Pot Clavulanate 05/17/20 22 Dizziness and confused documented as of this encounter (statuses as of 05/28/2024) Medications Medication Sig Dispensed Refills Start Date End Date Status Wellogix ULTRA SYSTEM W/DEVICE KITIndications:DM type 2, goal A1c below 7 Use up to four times a day as directed 1 Kit 0 07/28/2014 Active Blood Glucose Monitoring Suppl (ONETOUCH VERIO) w/Device KIT Use up to 4 times a day E11.9 1 Kit 01/12/2020 Active Xgeva 120 MG/1.7ML Subcutaneous Solution (Denosumab) [...] for Nausea. 30 Tablet 2 09/13/2023 Active B-12 1000-400 MCG Sublingual Tablet Sublingual Place under the tongue. Active Calcitriol 0.25 MCG Oral Capsule (Rocaltrol) DAILY IN THE MORNING 02/22/2024 Active Saline Flush 0.9 % Intravenous Solution Bladder irrigation every 6 hourly as needed for hematuria with clotting 125 mL 30 04/02/2024 Active linaGLIPtin 5 MG Oral Tablet (Tradjenta) Take 1 Tablet by mouth in the morning. 30 Tablet 3 04/02/2024 Active Magnesium Chloride 64 MG Oral Tablet Delayed Release (Mag64) Take 1 Tablet by mouth in the morning and 1 Tablet before bedtime. Active Docusate Sodium 100 MG Oral Capsule (Colace) Take 1 Capsule by mouth 2 times a day as needed for Constipation. 1-2 capsules as needed for constipation. Active FeroSul 325 (65 Fe) MG Oral TabletIndications: Need for case management follow-up,Blood loss anemia Take 1 Tablet by mouth in the morning. 30 Tablet 3 04/21/2024 Active Metoprolol Tartrate 25 MG Oral Tablet (Lopressor)Indicat ions:Need for case management follow-up,HTN, goal below 130/80 Take 1/2 Tablet by mouth in the morning. 30 Tablet 2 04/21/2024 Active busPIRone HCl 5 MG Oral Tablet (Buspar)Indication s:Need for case management follow-up,Prostate cancer metastatic to multiple sites (HCC) Take 1 Tablet by mouth in the morning and 1 Tablet at noon and 1 Tablet before bedtime. 90 Tablet 3 04/21/2024 Active Calcium Carbonate Antacid 1250 MG/5ML Oral SuspensionIndicati ons:Need for case management follow-up,Malignan t neoplasm metastatic to bone (HCC) Take 5 mL by mouth in the morning and 5 mL before bedtime. 473 mL 3 04/21/2024 Active Sodium Chloride (PF) 0.9 % Injection Solution 10 mL by Device route in the morning. Flush bilateral nephrostomy daily. 180 mL 3 04/22/2024 Active [place] Catheter Access Port Change as needed ([place] 600ml drainage bag) 2 Each 3 04/28/2024 Active Sodium Chloride Flush 0.9 % Intravenous Solution Use as directed to flush 600 mL 3 04/28/2024 Active Sacubitril-Valsart an 24-26 MG Oral Tablet (Entresto) Take 1 Tablet by mouth in the morning and 1 Tablet before bedtime. 05/05/2024 Active Tamsulosin HCl 0.4 MG Oral Capsule (Flomax)Indication s:Prostate cancer metastatic to multiple sites (HCC) Take 1 Capsule by mouth in the morning. 90 Capsule 3 05/05/2024 Active Ergocalciferol 1.25 MG (50831 UT) Oral Capsule (Vitamin D2(Drisdol)) Take 1 Capsule by mouth once a week. 12 Capsule 3 05/05/2024 Active Morphine Sulfate 15 MG Oral Tablet (Msir)Indications: Controlled substance agreement signed Take 1 Tablet by mouth every 4 hours as needed for Pain, Breakthrough. 30 Tablet 05/14/2024 Active LORazepam 0.5 MG Oral Tablet (Ativan)Indication s:Primary insomnia Take 1 Tablet by mouth 3 times a day as needed for Anxiety. 30 Tablet 05/23/2024 Active Mirtazapine 15 MG Oral Tablet (Remeron)Indicatio ns:Loss of appetite Take 1 Tablet by mouth at bedtime. 30 Tablet 1 05/28/2024 Active Senna 8.6 MG Oral TabletIndications: Constipation due to opioid therapy Take 2 Tablets by mouth at bedtime. 60 Tablet 1 05/28/2024 Active Prochlorperazine Maleate 10 MG Oral Tablet (Compazine)Indicat ions:Prostate cancer metastatic to multiple sites (HCC) Take 1 Tablet by mouth every 6 hours as needed for Nausea. 30 Tablet 2 05/28/2024 Active Morphine Sulfate ER 30 MG Oral Tablet Extended Release (Ms Contin)Indications :Cancer related pain Take 1 Tablet by mouth in the morning and 1 Tablet before bedtime. 05/28/2024 Active Naloxone HCl 4 MG/0.1ML Nasal Liquid (Narcan)Indication s:Cancer related pain Administer 1 spray into 1 nostril for suspected opioid overdose. Seek immediate medical attention. [email or web address]://[email or web address] [email or web address]/watch?v= [email or web address] 1 Each 3 05/28/2024 Active Naloxone HCL FOR CAREGIVER 0.4 MG/ML IJ SOLNIndications:Ca ncer related pain Inject 1 mL into outer thigh for suspected opioid overdose. Seek medical help immediately. [email or web address]://[email or web address] 1 mL 3 05/28/2024 Discontinue d(Medicatio n/Dose Changed) documented as of this encounter (statuses as [...] 05/26/2024 Does the household have a re gular [...] (15 years old or older) Yes 04/14/20 24 Cognitive Status Response Date of Assessm ent Because of a physical, menta l, or emotional condition, do you have serious difficulty concentrating, remembering, or making decisions? (5 years old or older) No 04/14/2024 documented as of this encounter Miscellaneous Notes * Telephone Encounter - Candy Galloway LPN - 05/28/2024 12:45 PM EDT Spoke with pharmacy Confirmed they received the nasal spray * Telephone Encounter - Estefani Guajardo PA-C - 05/28/2024 12:41 PM EDT Signed- please call to see if it went to them * Telephone Encounter - Ángel Thompson RN - 05/28/2024 12:29 PM EDT Palliative- please review. * Telephone Encounter - Ivana Martinez OSA - 05/28/2024 10:49 AM EDT Bret Vega from [facility] is calling because pt Brett Chaudhari was prescribed Naloxone injection but the pharmacy only carries Naloxone nasal spray. Can this be resent for the nasal spray instead? Please advice! Can you please fax the new order in for Naloxone nasal sprayto [phone] Can you please call Devorah back if you have any questoons at [phone] Thank you! documented in this encounter Plan of Treatment Upcoming Encounters Date Type Department Care Team (Late st Contact Info) Description 05/30/2024 9:15 AM EDT Scheduled Telephone Palliative Medicine, [address] 5th [place] [address] [place], Nurse Palliative Medicine [address] [address] 06/10/2024 11:00 AM EDT Telemedicine Nutrition Services [address] [address] Dorothea Mcmillan, RDN [address] [place] [address] 06/16/2024 3:30 PM EDT Office Visit Urology, [facility] [address] [place] [address] Isaías Novak MD [address] [place] [address] [place] [address] 07/01/2024 4:00 PM EDT Office Visit Family Practice [facility] [address] [facility] [place] [address] Dru Fritz MD 132 [facility] [place] [address] 07/16/2024 2:00 PM EDT Hospital Encounter OR [facility], Operating Room, [facility] - 4th Floor [address] [place] [phone] Raz Potts MD [address] [place] [address] 07/16/2024 2:00 PM EDT - 07/16/2024 2:48 PM EDT Surgery OR [facility], Operating Room, [facility] - 4th Floor [address] [place] [phone] Raz Potts MD [address] [place] [id number] CHANGE OF PERCUTANEOUS TUBE OR DRAINAGE CATHETER WITH XRAY AND CONTRAST MEDIUM 07/17/2024 10:30 AM EDT Appointment Interventional Radiology [facility], [facility] 1st [address] [facility] [address] Scheduled Procedures Name Priority Associated Diagnoses Date/Ti me CHANGE OF PERCUTANEOUS TUBE OR DRAINAGE CATHETER WITH XRAY AND CONTRAST MEDIUM Gross hematuria 07/16/2024 2:00 PM EDT Health Maintenance Due Date Last Done Comments DISCUSS TOBACCO CESSATION (R EFER TO SMARTSET #2515) 1959 COVID-19 Vaccine (#1) 1964 Zoster Vaccines (1 of 2) 1978 Influenza Vaccine (FLU shot) (#1) 2024 Depression Monitoring 05/26/2025 05/26/2024 Diabetic Foot Exam Discontinued 05/20/2019, 0 03/27/2018, 10/28/2015 Diabetic Eye Exam Discontinued 03/02/2021, , 01/24/2016, Additional history exists Albumin/Creatinine Ratio Discontinued 022, 02/13/2018, 10/27/2015, Additional history exists documented as of this encounter Medical Devices Implanted Type Area Legal Entity Controller Device Identifier Shelf Expiration Date Model / Serial / Lot Stent Trnscarotid Enroute 7x40 - [id number] Implanted:Qty: 1 on 01/25/2021 by Zeinab Robert MD at OR [facility] Left: Carotid [facility] [id number] 05/31/2023 SR-0740-C S / / [id number] documented as of this encounter Visit Diagnoses Diagnosis Cancer related pain- Primary Neoplasm related pain (acute) (chronic) Gross hematuria documented in this encounter Advance [...] patient or by statute hierarchy) Care Teams Agency Development Manager Relationship Specialty Start Date End Date Dru Fritz MD [address] [place] [address] PCP - General Family Medicine 01/24/21 documented as of this encounter
--- OUTSIDE RECORDS SUMMARY | 2024-06-05 15:31 | External Medical Summary | Summary of Care ---
Author Name Unknown Organization [facility] Address [address] [place] [address] Phone [phone] Care Team Providers Care Engine Lathe Operator Name Role Phone Dru Fritz MD Primary Care Provider [phone] Reason for Referral * Evaluate & Treat - Unlimited Visits (Within 30 days (routine)) - Authorized Specialty Diagnoses / Procedures Referred By Contac t Referred To Contact Psychology Diagnoses Prostate cancer metastatic to multiple sites (HCC) Anxiety Estefani Guajardo PA-C [address] [place] [address] Referral ID Status Reason Start Date Expiration Date Visits Requested Visits Authorized [id number] Authorized Specialty Services Required 05/28/2024 [id number] Question Answer Referral Priority Within 30 days (routine) Where should this appointment be scheduled? [facility] Reason for Referral: Mood/Anxiety/Depression * Social Care (Within 10 days (routine)) - Authorized Specialty Diagnoses / Procedures Referred By Contac t Referred To Contact Tow Mate Diagnoses Cancer related pain Prostate cancer metastatic to multiple sites (HCC) Estefani Guajardo PA-C [address] [place] [address] Referral ID Status Reason Start Date Expiration Date Visits Requested Visits Authorized [id number] Authorized Specialty Services Required 05/28/2024 [id number] Question Answer Referral Priority Within 10 days (routine) Where should this appointment be scheduled? [facility] Role Emergency Service Worker Referring Reason: Arrange Home Health, Coordinate Cancer Resources Comments No- patient has [place] , but I'm wondering if there are any other [facility] support like home labs, [place]? Reason for [...] Fritz MD [address] [place] [address] Referral ID Status Reason Start Date Expiration Date Visits Requested Visits Authorized [id number] Authorized Specialty Services Required 05/23/2024 [id number] Encounter Details Date Type Department Care Team (Late st Contact Info) Description 05/28/2024 9:00 AM EDT Telemedicine Palliative Medicine, [facility] [address] [facility] 5th [place] [address] Estefani Guajardo PA-C [address] [place] [address] Cancer related pain*; Prostate cancer metastatic to [...] Dispensed Refills Start Date End Date Status Epoch ULTRA SYSTEM W/DEVICE KITIndications:D M type 2, [...] nephrostomy daily. 180 mL 3 4 Active [place] Catheter Access Port Change as needed (Max [...] Capsule 3 4 Active Ergocalciferol 1.25 MG (20058 UT) Oral Capsule (Vitamin D2(Drisdol)) Take 1 [...] suspected opioid overdose. Seek medical help immediately. [email or web address] 1 mL 3 4 05/29/20 24 Active [...] 9:15 AM EDT Scheduled Telephone Palliative Medicine, [address] 5th Floor [place] [address] [place], Nurse Palliative Medicine [address] [place] [id number] 06/10/2024 11:00 AM EDT Telemedicine Nutrition Services [facility] [place] [address] [place] [address] Dorothea Mcmillan, RDN [address] [place] [address] 06/16/2024 3:30 PM EDT Office Visit Urology, [facility] [address] [facility] [place] [address] Isaías Novak MD [address] [facility] [place] [address] 07/01/2024 4:00 PM EDT Office Visit Family Practice [facility] [address] [facility] [place] [address] Dru Fritz MD [address] [place] [address] 07/16/2024 2:00 PM EDT Hospital Encounter OR [facility], Operating Room, [facility] - 4th Floor [address] [place] [phone] Raz Potts MD [address] [place] [address] 07/16/2024 2:00 PM EDT - 07/16/2024 2:48 PM EDT Surgery OR [facility], Operating Room, [facility] - 4th Floor [address] [place] [address] Raz Potts MD [address] [place] [address] CHANGE OF PERCUTANEOUS TUBE OR DRAINAGE CATHETER WITH XRAY AND CONTRAST MEDIUM 07/17/2024 10:30 AM EDT Appointment Interventional Radiology [facility], [address] 1st Floor [address] [place] [facility] [place] [phone] Scheduled Procedures Name Priority Associated Diagnoses Date/Ti [...] this encounter Medical Devices Implanted Type Area Waste And Batting Waste Chopper Device Identifier Shelf Expiration Date Model / Serial / Lot Stent Trnscarotid Enroute 7x40 - [id number] Implanted:Qty: 1 on 01/25/2021 by Zeinab Robert MD at [facility] Left: [facility] [id number] 05/31/2023 SR-0740-C S / / [id number] documented as of this encounter Visit Diagnoses [...] patient or by statute hierarchy) Care Teams Engine Lathe Operator Relationship Specialty Start Date End Date Dru Fritz MD 132 [facility] [place] [address] PCP - General Family Medicine 01/24/21 documented as of this encounter
--- OUTSIDE RECORDS SUMMARY | 2024-06-05 15:31 | External Medical Summary | Summary of Care ---
Author Name Unknown Organization [facility] Address [address] [place] [address] Phone [phone] Care Team Providers Care Mental Tester Name Role Phone Dru Fritz MD Primary Care Provider [phone] Reason for Visit * Reason Onset Date Comments FYI 06/03/2024 Encounter Details Date Type Department Care Team (Late st Contact Info) Description 06/03/2024 Telephone Access Center, [place] [address] [facility] *DO NOT REMOVE THIS DEPARTMENT* [place] [address] Services, Scheduling [address] [place] [address] Allergies Active Allergy Reactions Criticality Noted Date Comments Amoxicillin-Pot Clavulanate 05/17/20 22 Dizziness and confused documented as of this encounter (statuses as of 06/05/2024) Medications Medication Sig Dispensed Refills Start Date End Date Status TE2 ULTRA SYSTEM W/DEVICE KITIndications:DM type 2, goal [...] Active FeroSul 325 (65 Fe) MG Oral TabletIndications:N eed for case management follow-up,Blood loss anemia Take 1 Tablet by mouth in the morning. 30 Tablet 3 04/21/2024 Active Metoprolol Tartrate 25 MG Oral Tablet (Lopressor)Indicati ons:Need for case management follow-up,HTN, goal below 130/80 Take 1/2 Tablet by mouth in the morning. 30 Tablet 2 04/21/2024 Active busPIRone HCl 5 MG Oral Tablet (Buspar)Indications :Need for case management follow-up,Prostate cancer metastatic to multiple sites (HCC) Take 1 Tablet by mouth in the morning and 1 Tablet at noon and 1 Tablet before bedtime. 90 Tablet 3 04/21/2024 Active Calcium Carbonate Antacid 1250 MG/5ML Oral SuspensionIndicatio ns:Need for case management follow-up,Malignant neoplasm metastatic to bone (HCC) Take 5 mL by mouth in the morning and 5 mL before bedtime. 473 mL 3 04/21/2024 Active Sodium Chloride (PF) 0.9 % Injection Solution 10 mL by Device route in the morning. Flush bilateral nephrostomy daily. 180 mL 3 04/22/2024 Active [place] Catheter Access Port Change as needed (Max 600ml drainage bag) 2 Each 3 04/28/2024 Active Sodium Chloride Flush 0.9 % Intravenous Solution Use as directed to flush 600 mL 3 04/28/2024 Active Sacubitril-Valsarta n 24-26 MG Oral Tablet (Entresto) Take 1 Tablet by mouth in the morning and 1 Tablet before bedtime. 05/05/2024 Active Tamsulosin HCl 0.4 MG Oral Capsule (Flomax)Indications :Prostate cancer metastatic to multiple sites (HCC) Take 1 Capsule by mouth in the morning. 90 Capsule 3 05/05/2024 Active Ergocalciferol 1.25 MG (01469 UT) Oral Capsule (Vitamin D2(Drisdol)) Take 1 Capsule by mouth once a week. 12 Capsule 3 05/05/2024 Active Morphine Sulfate 15 MG Oral Tablet (Msir)Indications:C ontrolled substance agreement signed Take 1 Tablet by mouth every 4 hours as needed for Pain, Breakthrough. 30 Tablet 05/14/2024 Active LORazepam 0.5 MG Oral Tablet (Ativan)Indications :Primary insomnia Take 1 Tablet by mouth 3 times a day as needed for Anxiety. 30 Tablet 05/23/2024 Active Mirtazapine 15 MG Oral Tablet (Remeron)Indication s:Loss of appetite Take 1 Tablet by mouth at bedtime. 30 Tablet 1 05/28/2024 Active Senna 8.6 MG Oral TabletIndications:C onstipation due to opioid therapy Take 2 Tablets by mouth at bedtime. 60 Tablet 1 05/28/2024 Active Prochlorperazine Maleate 10 MG Oral Tablet (Compazine)Indicati ons:Prostate cancer metastatic to multiple sites (HCC) Take 1 Tablet by mouth every 6 hours as needed for Nausea. 30 Tablet 2 05/28/2024 Active Morphine Sulfate ER 30 MG Oral Tablet Extended Release (Ms Contin)Indications: Cancer related pain Take 1 Tablet by mouth in the morning and 1 Tablet before bedtime. 05/28/2024 Active Naloxone HCl 4 MG/0.1ML Nasal Liquid (Narcan)Indications :Cancer related pain Administer 1 spray into 1 nostril for suspected opioid overdose. Seek immediate medical attention. [email or web address]://[email or web address] [email or web address]/[email or web address]?v=[email or web address] 1 Each 3 05/28/2024 Active documented as of this encounter (statuses as of 06/05/2024) Active Problems Problem Noted Date Diagnosed Date [...] as of this encounter (statuses as of 06/05/2024) Resolved Problems Problem Noted Date Diagnosed Date [...] as of this encounter (statuses as of 06/05/2024) Immunizations No known immunizationsdocumented as of this [...] encounter Miscellaneous Notes * Telephone Encounter - Darlene Paredes LPN - 06/04/2024 3:52 PM EDT No new lab results up until this time. Will continue to monitor. * Telephone Encounter - Ángel Thompson RN - 06/03/2024 4:26 PM EDT Noted. Spoke with patients this afternoon, they are taking him to [facility] tomorrow to have labs done. Baljit- please follow up on lab results. * Telephone Encounter - Fabienne Green OSA - 06/03/2024 4:23 PM EDT Martha calling from [facility] [phone]. Martha is calling because she was unable to draw his lab work. She tried three times and was unable to collect anything. documented in this encounter Plan of Treatment Upcoming Encounters Date Type Department Care Team (Latest Contact Info) Description 06/10/2024 11:00 AM EDT Telemedicine Nutrition Services [address] [address] Dorothea Mcmillan RDN [address] [place] [address] 06/11/2024 2:30 PM EDT Telemedicine Palliative Medicine [facility] [address] [place] [address] Nuvia Steven MD [address] [place], [place] [address] [address] 06/16/2024 3:30 PM EDT Office Visit Urology, [facility] [address] [facility] [place] [address] Isaías Novak MD [address] [facility] [place] [address] 07/01/2024 4:00 PM EDT Office Visit Family Practice [facility] 132 [facility] [place] [address] Dru Fritz MD 132 [facility] [place] [address] 07/16/2024 2:00 PM EDT Hospital Encounter [facility], Operating Room, [facility] - 4th Floor [address] [place] [phone] Raz Potts MD [address] [place] [address] 07/16/2024 2:00 PM EDT - 07/16/2024 2:48 PM EDT Surgery OR [facility], Operating Room, [facility] - 4th Floor [address] [place] [address] Raz Potts MD [address] [place] [address] CHANGE OF PERCUTANEOUS TUBE OR DRAINAGE CATHETER WITH XRAY AND CONTRAST MEDIUM 07/17/2024 10:30 AM EDT Appointment Interventional [place] [facility] [address] 1st Floor 100 [facility] [place] [address] Scheduled Procedures Name Priority Associated Diagnoses Date/Ti me CHANGE OF PERCUTANEOUS TUBE OR DRAINAGE CATHETER WITH XRAY AND CONTRAST MEDIUM Gross hematuria 07/16/2024 2:00 PM EDT Health Maintenance Due Date Last Done Comments DISCUSS TOBACCO CESSATION (R EFER TO SMARTSET #8661) 1959 COVID-19 Vaccine (#1) 1964 Zoster Vaccines (1 of 2) 1978 Influenza Vaccine (FLU shot) (#1) 2024 Depression Monitoring 05/26/2025 05/26/2024 Diabetic Foot Exam Discontinued 05/20/2019, 0 03/27/2018, 10/28/2015 Diabetic Eye Exam Discontinued 03/02/2021, , 01/24/2016, Additional history exists Albumin/Creatinine Ratio Discontinued 022, 02/13/2018, 10/27/2015, Additional history exists documented as of this encounter Medical Devices Implanted Type Area Inbound Customer Service Representative Device Identifier Shelf Expiration Date Model / Serial / Lot Stent Trnscarotid Enroute 7x40 - [id number] Implanted:Qty: 1 on 01/25/2021 by Zeinab Robert MD [place] [facility] Left: [facility] [id number] 05/31/2023 SR-0740-C S / / [id number] documented as of this encounter Advance Directives [...] patient or by statute hierarchy) Care Teams Mental Tester Relationship Specialty Start Date End Date Dru Fritz MD [address] [place] [address] PCP - General Family Medicine 01/24/21 documented as of this encounter
--- OUTSIDE RECORDS SUMMARY | 2024-06-05 15:31 | External Medical Summary | Summary of Care ---
Author Name Unknown Organization [facility] Address [address] [place] [address] Phone [phone] Care Team Providers Care Melter Caster Name Role Phone Dru Fritz MD Primary Care Provider [phone] [phone] Reason for Visit * Reason Onset Date Comments FYI 06/03/2024 Encounter Details Date Type Department Care Team (Late st Contact Info) Description 06/03/2024 Telephone Access Center, Central Region [address] [facility] *DO NOT REMOVE THIS DEPARTMENT* [place] [address] Services, Scheduling [address] [place] [address] Allergies Active Allergy Reactions Criticality Noted Date Comments Amoxicillin-Pot Clavulanate 05/17/20 22 Dizziness and confused documented as of this encounter (statuses as of 06/04/2024) Medications Medication Sig Dispensed Refills Start Date End Date Status [email or web address] ULTRA SYSTEM W/DEVICE KITIndications:DM type 2, goal [...] nephrostomy daily. 180 mL 3 04/22/2024 Active [place] Catheter Access Port Change as needed (Max [...] Capsule 3 05/05/2024 Active Ergocalciferol 1.25 MG (57962 UT) Oral Capsule (Vitamin D2(Drisdol)) Take 1 [...] overdose. Seek immediate medical attention. [email or web address]?v=[email or web address] 1 Each 3 05/28/2024 Active documented as of this encounter (statuses as of 06/04/2024) Active Problems Problem Noted Date Diagnosed Date [...] as of this encounter (statuses as of 06/04/2024) Resolved Problems Problem Noted Date Diagnosed Date [...] as of this encounter (statuses as of 06/04/2024) Immunizations No known immunizationsdocumented as of this [...] this afternoon, they are taking him to [facility] tomorrow to have labs done. Baljit- please follow up on lab results. * Telephone Encounter - Fabienne Green OSA - 06/03/2024 4:23 PM EDT Martha calling from [facility] [phone]. Martha is calling because she was unable to draw his lab work. She tried three times and was unable to collect anything. documented in this encounter Plan of Treatment Upcoming Encounters Date Type Department Care Team (Latest Contact Info) Description 06/05/2024 1:00 PM EDT Telemedicine Psychology, Cancer Center Yomaira ORTIZ [address] [facility] [place] [address] Dea Gonzalez MA [address] [place] [address] 06/10/2024 11:00 AM EDT Telemedicine Nutrition Services [address] [place] [address] Dorothea Mcmillan, HUMAIRA [address] [place] [address] 06/11/2024 2:30 PM EDT Telemedicine Palliative Medicine [facility] [address] [place] [address] Nuvia Steven MD 400 [facility] [place] [address] 06/16/2024 3:30 PM EDT Office Visit Urology, [facility] 132 [place] [address] Isaías Novak MD [address] [place] [address] 07/01/2024 4:00 PM EDT Office Visit Family Practice [facility] 132 [facility] [place] [address] Dru Fritz MD 132 [facility] [place] [address] 07/16/2024 2:00 PM EDT Hospital Encounter OR [facility], Operating Room, [facility] - 4th Floor [address] [place] [phone] Raz Potts MD [address] [place] [address] 07/16/2024 2:00 PM EDT - 07/16/2024 2:48 PM EDT Surgery OR [facility], Operating Room, [facility] - 4th Floor [address] [place] [phone] Raz Potts MD [address] [place] [address] CHANGE OF PERCUTANEOUS TUBE OR DRAINAGE CATHETER WITH XRAY AND CONTRAST MEDIUM 07/17/2024 10:30 AM EDT Appointment Interventional Radiology [facility], [address] 1st Floor [address] [place] [address] Scheduled Procedures Name Priority Associated Diagnoses Date/Ti me CHANGE OF PERCUTANEOUS TUBE OR DRAINAGE CATHETER WITH XRAY AND CONTRAST MEDIUM Gross hematuria 07/16/2024 2:00 PM EDT Health Maintenance Due Date Last Done Comments DISCUSS TOBACCO CESSATION (R EFER TO SMARTSET #7183) 1959 COVID-19 Vaccine (#1) 1964 Zoster Vaccines (1 of 2) 1978 Influenza Vaccine (FLU shot) (#1) 2024 Depression Monitoring 05/26/2025 05/26/2024 Diabetic Foot Exam Discontinued 05/20/2019, 0 03/27/2018, 10/28/2015 Diabetic Eye Exam Discontinued 03/02/2021, , 01/24/2016, Additional history exists Albumin/Creatinine Ratio Discontinued 022, 02/13/2018, 10/27/2015, Additional history exists documented as of this encounter Medical Devices Implanted Type Area Registered Nurse Hh Case Manager Device Identifier Shelf Expiration Date Model / Serial / Lot Stent Trnscarotid Enroute 7x40 - [id number] Implanted:Qty: 1 on 01/25/2021 by Zeinab Robert MD at [facility] Left: [facility] [id number] 05/31/2023 SR-0740-C S / / [id number] documented as of this encounter Advance Directives [...] patient or by statute hierarchy) Care Teams Melter Caster Relationship Specialty Start Date End Date Dru Fritz MD [address] [place] [address] PCP - General Family Medicine 01/24/21 documented as of this encounter
--- OUTSIDE RECORDS SUMMARY | 2024-06-05 15:31 | External Medical Summary | Summary of Care ---
Author Name Unknown Organization [facility] Address [address] [place] [address] Phone [phone] Care Team Providers Care Rn Production Name Role Phone Dru Fritz MD Primary Care Provider [phone] [phone] Reason for Visit * Reason Onset Date Comments Palliative Care Follow-up 05/30/2024 Encounter Details Date Type Department Care Team (Late st Contact Info) Description 05/30/2024 9:15 AM EDT Scheduled Telephone Palliative Medicine, [address] 5th [place] [address] [place], Nurse Palliative Medicine [address] [id number] Arrived Allergies Active Allergy Reactions Criticality Noted Date Comments Amoxicillin-Pot Clavulanate 05/17/20 22 Dizziness and confused documented as of this encounter (statuses as of 05/30/2024) Medications Medication Sig Dispensed Refills Start Date End Date Status Eye-FiTOUCH ULTRA SYSTEM W/DEVICE KITIndications:DM type 2, goal [...] nephrostomy daily. 180 mL 3 04/22/2024 Active [place] Catheter Access Port Change as needed (Max [...] Capsule 3 05/05/2024 Active Ergocalciferol 1.25 MG (18532 UT) Oral Capsule (Vitamin D2(Drisdol)) Take 1 [...] suspected opioid overdose. Seek immediate medical attention. [email or web address]?v=[email or web address] 1 Each 3 05/28/2024 Active documented as of this encounter (statuses as of 05/30/2024) Active Problems Problem Noted Date Diagnosed Date [...] as of this encounter (statuses as of 05/30/2024) Resolved Problems Problem Noted Date Diagnosed Date [...] as of this encounter (statuses as of 05/30/2024) Immunizations No known immunizationsdocumented as of this [...] Telephone Encounter - Candy Galloway LPN - 05/30/2024 1:24 PM EDT informed via MyG Ok to cut mirtazapine in half * Telephone Encounter - Candy Galloway LPN - 05/30/2024 12:18 PM EDT Palliative f/u phone call Spoke with Brittaney Overall his pain control is doing well-she is following the schedule However, the remeron is making him pretty drowsy in the morning She is asking if she can cut the dose in half? Currently taking it at 10pm as it makes him fall asleep rather quickly and would not want to take it any earlier Can send her message on MyG if this is OK Scheduled next video visit 06/11 at 230pm documented in this encounter Plan of Treatment Upcoming Encounters Date Type Department Care Team (Latest Contact Info) Description 06/05/2024 1:00 PM EDT Telemedicine Psychology, Cancer Center Yomaira ORTIZ [address] [facility] [place] [address] Dea Gonzalez MA [address] [place] [address] 06/10/2024 11:00 AM EDT Telemedicine Nutrition Services [address] [place] [id number] Dorothea Mcmillan, RDN [address] [place] [address] 06/11/2024 2:30 PM EDT Telemedicine Palliative Medicine [facility] [address] [place] [address] Nuvia Steven MD 400 [facility] [place] [address] 06/16/2024 3:30 PM EDT Office Visit Urology, [facility] 132 [place] [address] Isaías Novak MD 27 [facility] [place] [address] 07/01/2024 4:00 PM EDT Office Visit Family Practice [facility] [address] Dru Fritz MD 132 [place] [address] 07/16/2024 2:00 PM EDT Hospital Encounter OR [facility], Operating Room, [facility] - 4th Floor [address] [place] [phone] Raz Potts MD [address] [place] [address] 07/16/2024 2:00 PM EDT - 07/16/2024 2:48 PM EDT Surgery OR [facility], Operating Room, [facility] - 4th Floor [address] [place] [phone] Raz Potts MD [address] [place] [address] CHANGE OF PERCUTANEOUS TUBE OR DRAINAGE CATHETER WITH XRAY AND CONTRAST MEDIUM 07/17/2024 10:30 AM EDT Appointment Interventional Radiology [facility], [address] 1st Floor [address] [place] [address] Scheduled Procedures Name Priority Associated Diagnoses Date/Ti me CHANGE OF PERCUTANEOUS TUBE OR DRAINAGE CATHETER WITH XRAY AND CONTRAST MEDIUM Gross hematuria 07/16/2024 2:00 PM EDT Health Maintenance Due Date Last Done Comments DISCUSS TOBACCO CESSATION (R EFER TO SMARTSET #1961) 1959 COVID-19 Vaccine (#1) 1964 Zoster Vaccines (1 of 2) 1978 Influenza Vaccine (FLU shot) (#1) 2024 Depression Monitoring 05/26/2025 05/26/2024 Diabetic Foot Exam Discontinued 05/20/2019, 0 03/27/2018, 10/28/2015 Diabetic Eye Exam Discontinued 03/02/2021, , 01/24/2016, Additional history exists Albumin/Creatinine Ratio Discontinued 022, 02/13/2018, 10/27/2015, Additional history exists documented as of this encounter Medical Devices Implanted Type Area Pattern Duplicator Device Identifier Shelf Expiration Date Model / Serial / Lot Stent Trnscarotid Enroute 7x40 - [id number] Implanted:Qty: 1 on 01/25/2021 by Zeinab Robert MD at OR [facility] Left: Carotid [facility] [id number] 05/31/2023 SR-0740-C S / / [id number] documented as of this encounter Advance Directives [...] patient or by statute hierarchy) Care Teams Rn Production Relationship Specialty Start Date End Date Dru Fritz MD [address] [place] [address] PCP - General Family Medicine 01/24/21 documented as of this encounter
--- OUTSIDE RECORDS SUMMARY | 2024-06-05 15:31 | External Medical Summary | Summary of Care ---
Author Name Unknown Organization [facility] Address [address] [place] [address] Phone [phone] Care Team Providers Care Computer Assistant Name Role Phone Dru Fritz MD Primary Care Provider [phone] [phone] Reason for Visit * Reason Onset Date Comments Advice 03/05/2024 FYI 03/05/2024 Encounter Details Date Type Department Care Team (Late st Contact Info) Description 03/05/2024 Telephone Family Practice [facility] 132 [facility] [place] [address] Dru Fritz MD [address] [place] [address] Advice; Allergies Active Allergy Reactions Criticality Noted Date [...] encounter Miscellaneous Notes * Telephone Encounter - Flavia Tolbert LPN - 03/05/2024 3:17 PM EDT Denisha calling from [facility]. Made an attempt to see the patient. He said he has too many appts this week. Patient told her to try Sunday and they can see if they can work anything out. Will try again next week, but is not hopeful it will work out. FYI * Telephone Encounter - Lyndsay Morrissey OSA - 03/05/2024 3:14 PM EDT Reason for patient's call:calling for a nurse Caller was transferred to [facility] at the nurse line. documented in this encounter Plan of Treatment Upcoming Encounters Date Type Department Care Team (Latest Contact Info) Description 06/05/2024 1:00 PM EDT Telemedicine Psychology, Cancer Center Yomaira ORTIZ [address] [place] [address] Dea Gonzalez MA [address] [place] [address] 06/10/2024 11:00 AM EDT Telemedicine Nutrition Services [facility], [address] [address] Dorothea Mcmillan, JASONN [address] [place] [address] 06/11/2024 2:30 PM EDT Telemedicine Palliative Medicine [facility] [address] [place] [address] Nuvia Steven MD 400 [facility] [address] 06/16/2024 3:30 PM EDT Office Visit Urology, [facility] 132 [place] [address] Isaías Novak MD 27 [facility] [place] [address] 07/01/2024 4:00 PM EDT Office Visit Family Practice [facility] [address] [place] [address] Dru Fritz MD 132 [facility] [place] [address] 07/16/2024 2:00 PM EDT Hospital Encounter [place] [facility], Operating Room, [facility] - 4th Floor [address] [place] [phone] Raz Potts MD [address] [place] [address] 07/16/2024 2:00 PM EDT - 07/16/2024 2:48 PM EDT Surgery [facility], Operating Room, [facility] - 4th Floor [address] [place] [phone] Raz Potts MD [address] [place] [address] CHANGE OF PERCUTANEOUS TUBE OR DRAINAGE CATHETER WITH XRAY AND CONTRAST MEDIUM 07/17/2024 10:30 AM EDT Appointment Interventional Radiology [facility], [address] 1st Floor [address] [place] [address] Scheduled Procedures Name Priority Associated [...] this encounter Medical Devices Implanted Type Area Doughnut Fryer Device Identifier Shelf Expiration Date Model / Serial / Lot Stent Trnscarotid Enroute 7x40 - [id number] Implanted:Qty: 1 on 01/25/2021 by Zeinab Robert MD at OR [facility] Left: [facility] [id number] 05/31/2023 SR-0740-C S / / [id number] documented as of this encounter Advance Directives [...] patient or by statute hierarchy) Care Teams Computer Assistant Relationship Specialty Start Date End Date Dru Fritz MD [address] [place] [address] PCP - General Family Medicine 01/24/21 documented as of this encounter
--- OUTSIDE RECORDS SUMMARY | 2024-06-05 15:32 | External Medical Summary | Summary of Care ---
Author Name Unknown Organization [facility] Address [address] [place] [address] Phone [phone] Care Team Providers Care Missile And Missile Checkout Technician Name Role Phone Dru Fritz MD Primary Care Provider [phone] Reason for Visit * Reason Onset Date Comments Advice 05/26/2024 Bret Encounter Details Date Type Department Care Team (Late st Contact Info) Description 05/26/2024 Telephone Access Center, Central Region [address] [facility] *DO NOT REMOVE THIS DEPARTMENT* [place] [address] Services, Scheduling [address] [place] [address] Advice (Bret ) Allergies Active Allergy Reactions Criticality Noted Date Comments Amoxicillin-Pot Clavulanate 05/17/20 22 Dizziness and confused documented as of this encounter (statuses as of 05/26/2024) Medications Medication Sig Dispensed Refills Start Date End Date Status [employer] LTDUCH ULTRA SYSTEM W/DEVICE KITIndications:DM type 2, goal [...] Tablet before bedtime. 60 Tablet 04/02/2024 Active linaGLIPtin 5 MG Oral Tablet (Tradjenta) Take 1 Tablet by mouth in the morning. 30 Tablet 3 04/02/2024 Active traMADol HCl 50 MG Oral Tablet (Ultram)Indications :Malignant neoplasm metastatic to bone (HCC) Take 2 Tablets by mouth 3 times a day as needed for Moderate Pain 180 Tablet 04/08/2024 Active Magnesium Chloride 64 MG Oral Tablet [...] nephrostomy daily. 180 mL 3 04/22/2024 Active [place] Catheter Access Port Change as needed (Max [...] Capsule 3 05/05/2024 Active Ergocalciferol 1.25 MG (66282 UT) Oral Capsule (Vitamin D2(Drisdol)) Take 1 [...] needed for Anxiety. 30 Tablet 05/23/2024 Active documented as of this encounter (statuses as of 05/26/2024) Active Problems Problem Noted Date Diagnosed Date [...] as of this encounter (statuses as of 05/26/2024) Resolved Problems Problem Noted Date Diagnosed Date [...] as of this encounter (statuses as of 05/26/2024) Immunizations No known immunizationsdocumented as of this [...] Telephone Encounter - Ángel Thompson RN - 05/26/2024 3:38 PM EDT Spoke with Keren from [facility]. States their RN went to patients home today. She was able to get the IV in and had some blood come out but it was very little. They've been having more and more difficulty getting blood from the patient. State they could send out another MANUFACTURER AGENT tomorrow to try but they may not be able to get it again.RN noted that patient seemed escalera and unwell when she saw him earlier. I called and spoke with patients Brittaney. Advised that patient should be seen in the ER as [facility] is having difficulty drawing her husbands blood which may be a sign of severe anemia. Pt may require stat infusion and this shouldn't be delayed unless patient refuses. She states she will speak with her . She asked if he could go a different day and I advised against this. Advised I will call her tomorrow to check in. * Telephone Encounter - Keren Neri OSA - 05/26/2024 3:25 PM EDT Keren from [facility] is calling to speak with a nurse about this patient. Call transferred to nurse Ángel * Telephone Encounter - Ángel Thompson RN - 05/26/2024 1:03 PM EDT I called and spoke to Chucky and Brittaney. They are going to call [facility] back and see if they will come back out to draw his labs on a different day. I advised that we should keep this weekly as hehas required multiple weekly transfusions. They are agreeable to this and ok with this. They state they were having trouble with one of the nephrostomy tubes recently but it is now working better and he has had better output. He has been drinking as much as he can. Advised that if home health is unable to draw labs he may need to go to the hospital for fluids,blood,labs. * Telephone Encounter - Jojo Gamboa OSA - 05/26/2024 12:42 PM EDT Allison from [facility] calling regarding labs unable to get blood from his veins keeps collapsing. asking to speak with nurse. Also states that patient only put out 200 cc of urine yesterday, also with nausea and constipation documented in this encounter Plan of Treatment Upcoming Encounters Date Type Department Care Team (Latest Contact Info) Description 05/28/2024 9:00 AM EDT Telemedicine Palliative Medicine, [facility] 400 [facility] 5th [place] [address] Estefani Guajardo PA-C 400 [place] [address] 06/10/2024 11:00 AM EDT Telemedicine Nutrition Services [address] [address] Dorothea Mcmillan, RDN [address] [place] [address] 06/16/2024 3:30 PM EDT Office Visit Urology, [facility] 132 [facility] [place] [address] Isaías Novak MD 27 [place] [address] 07/01/2024 4:00 PM EDT Office Visit Family Practice [facility] 132 [facility] [place] [address] Dru Fritz MD 132 [facility] [place] [address] 07/16/2024 2:00 PM EDT Hospital Encounter [place] [facility], Operating Room, [facility] - 4th Floor [address] [place] [phone] Raz Potts MD [address] [place] [address] 07/16/2024 2:00 PM EDT - 07/16/2024 2:48 PM EDT Surgery OR [facility], Operating Room, [facility] - 4th Floor [address] [place] [phone] Raz Potts MD [address] [place] [address] CHANGE OF PERCUTANEOUS TUBE OR DRAINAGE CATHETER WITH XRAY AND CONTRAST MEDIUM 07/17/2024 10:30 AM EDT Appointment Interventional Radiology [facility] [address] [place] [address] Scheduled Procedures Name Priority Associated Diagnoses Date/Ti me CHANGE OF PERCUTANEOUS TUBE OR DRAINAGE CATHETER WITH XRAY AND CONTRAST MEDIUM Gross hematuria 07/16/2024 2:00 PM EDT Health Maintenance Due Date Last Done Comments DISCUSS TOBACCO CESSATION (R EFER TO SMARTSET #4354) 1959 COVID-19 Vaccine (#1) 1964 Zoster Vaccines (1 of 2) 1978 Influenza Vaccine (FLU shot) (#1) 2024 Depression Monitoring 05/26/2025 05/26/2024 Diabetic Foot Exam Discontinued 05/20/2019, 0 03/27/2018, 10/28/2015 Diabetic Eye Exam Discontinued 03/02/2021, , 01/24/2016, Additional history exists Albumin/Creatinine Ratio Discontinued 022, 02/13/2018, 10/27/2015, Additional history exists documented as of this encounter Medical Devices Implanted Type Area Auto Bumper Mechanic Device Identifier Shelf Expiration Date Model / Serial / Lot Stent Trnscarotid Enroute 7x40 - [id number] Implanted:Qty: 1 on 01/25/2021 by Zeinab Robert MD at [place] [facility] Left: Carotid [facility] [id number] 05/31/2023 SR-0740-C S / / [id number] documented as of this encounter Advance Directives [...] patient or by statute hierarchy) Care Teams Missile And Missile Checkout Technician Relationship Specialty Start Date End Date Dru Fritz MD [address] [place] [address] PCP - General Family Medicine 01/24/21 documented as of this encounter
--- OUTSIDE RECORDS SUMMARY | 2024-06-05 15:32 | External Medical Summary | Summary of Care ---
Author Name Unknown Organization [facility] Address [address] [place] [address] Phone [phone] Care Team Providers Care Financial Services Representative Name Role Phone Dru Fritz MD Primary Care Provider [phone] [phone] Reason for Visit * Reason Onset Date Comments Advice 05/26/2024 Bret Encounter Details Date Type Department Care Team (Late st Contact Info) Description 05/26/2024 Telephone Access Center, Central Region [address] [facility] *DO NOT REMOVE THIS DEPARTMENT* [place] [address] Services, Scheduling [address] [place] [address] Advice (Bret ) Allergies Active Allergy Reactions Criticality Noted Date Comments Amoxicillin-Pot Clavulanate 05/17/20 22 Dizziness and confused documented as of this encounter (statuses as of 05/27/2024) Medications Medication Sig Dispensed Refills Start Date End Date Status Bolongaro TrevorUCH ULTRA SYSTEM W/DEVICE KITIndications:DM type 2, goal [...] nephrostomy daily. 180 mL 3 04/22/2024 Active [place] Catheter Access Port Change as needed (Max [...] Capsule 3 05/05/2024 Active Ergocalciferol 1.25 MG (80632 UT) Oral Capsule (Vitamin D2(Drisdol)) Take 1 [...] as of this encounter (statuses as of 05/27/2024) Active Problems Problem Noted Date Diagnosed Date [...] as of this encounter (statuses as of 05/27/2024) Resolved Problems Problem Noted Date Diagnosed Date [...] as of this encounter (statuses as of 05/27/2024) Immunizations No known immunizationsdocumented as of this [...] Telephone Encounter - Ángel Thompson RN - 05/27/2024 9:12 AM EDT Reviewed ER note from yesterday (pt was discharged to home). Hgb 9.7, did not require transfusion. * Telephone Encounter - Ángel Thompson RN - 05/27/2024 9:08 AM EDT Called patients this morning to follow up, no answer, LMOM with return #. * Telephone Encounter - Ángel Thompson RN - 05/26/2024 3:38 PM EDT Spoke with Keren from [facility]. States their RN went to patients home today. She was able to get the IV in and had some blood come out but it was very little. They've been having more and more difficulty getting blood from the patient. State they could send out another TELECOM BILLING ANALYST tomorrow to try but they may not be able to get it again.RN noted that patient seemed escalera and unwell when she saw him earlier. I called and spoke with patients Brittaney. Advised that patient should be seen in the ER as [facility] is having difficulty drawing her husbands [...] - 05/26/2024 3:25 PM EDT Keren from [facility] is calling to speak with a nurse about this patient. Call transferred to nurse Neal * Telephone Encounter - Ángel Thompson RN - 05/26/2024 1:03 PM EDT I called and spoke to Chucky and Brittaney. They are going to call home health back and see if they will come back out to draw his labs on a different day. I advised that we should keep this weekly as gregor required multiple weekly transfusions. They are agreeable [...] - 05/26/2024 12:42 PM EDT Allison from [facility] calling regarding labs unable to get blood from his veins keeps collapsing. asking to speak with nurse. Also states that patient only put out 200 cc of urine yesterday, also with nausea and constipation documented in this encounter Plan of Treatment Upcoming Encounters Date Type Department Care Team (Latest Contact Info) Description 05/28/2024 9:00 AM EDT Telemedicine Palliative Medicine, [facility] 400 [facility] 5th [place] [address] Estefani Guajardo PAGriffin [address] [place] [address] 06/10/2024 11:00 AM EDT Telemedicine Nutrition Services [address] [address] Dorothea Mcmillan, HUMAIRA [address] [place] [address] 06/16/2024 3:30 PM EDT Office Visit Urology, [facility] 132 [facility] [place] [address] Isaías Novak MD [address] [place] [address] 07/01/2024 4:00 PM EDT Office Visit Family [facility] [address] [facility] [place] [address] Dru Fritz MD 132 [facility] [place] [address] 07/16/2024 2:00 PM EDT Hospital Encounter OR [facility], Operating Room, [facility] - 4th Floor [address] [place] [phone] Raz Potts MD [address] [place] [address] 07/16/2024 2:00 PM EDT - 07/16/2024 2:48 PM EDT Surgery OR [facility], Operating Room, [facility] - 4th Floor [address] [place] [phone] Raz Potts MD [address] [place] [address] CHANGE OF PERCUTANEOUS TUBE OR DRAINAGE CATHETER WITH XRAY AND CONTRAST MEDIUM 07/17/2024 10:30 AM EDT Appointment Interventional Radiology [facility], [facility] 1st Floor [address] [place] [address] Scheduled Procedures Name Priority Associated Diagnoses Date/Ti me CHANGE OF PERCUTANEOUS TUBE OR DRAINAGE CATHETER WITH XRAY AND CONTRAST MEDIUM Gross hematuria 07/16/2024 2:00 PM EDT Health Maintenance Due Date Last Done Comments DISCUSS TOBACCO CESSATION (R EFER TO SMARTSET #9495) 1959 COVID-19 Vaccine (#1) 1964 Zoster Vaccines (1 of 2) 1978 Influenza Vaccine (FLU shot) (#1) 2024 Depression Monitoring 05/26/2025 05/26/2024 Diabetic Foot Exam Discontinued 05/20/2019, 0 03/27/2018, 10/28/2015 Diabetic Eye Exam Discontinued 03/02/2021, , 01/24/2016, Additional history exists Albumin/Creatinine Ratio Discontinued 022, 02/13/2018, 10/27/2015, Additional history exists documented as of this encounter Medical Devices Implanted Type Area Bias Machine Operator Device Identifier Shelf Expiration Date Model / Serial / Lot Stent Trnscarotid Enroute 7x40 - [id number] Implanted:Qty: 1 on 01/25/2021 by Zeinab Robert MD at [facility] Left: Carotid [facility] [place] [id number] 05/31/2023 SR-0740-C S / / [id number] documented as of this encounter Advance Directives [...] or by statute hierarchy) Care Teams Financial Services Representative Relationship Specialty Start Date End Date Dru Fritz MD 132 [facility] [place] [address] PCP - General Family Medicine 01/24/21 documented as of this encounter
--- OUTSIDE RECORDS SUMMARY | 2024-06-05 15:32 | External Medical Summary | Summary of Care ---
Author Name Unknown Organization [facility] Address [address] [place] [address] Phone [phone] Care Team Providers Care Senior Procurement Specialist Name Role Phone Dru Fritz MD Primary Care Provider [phone] Reason for Visit * Reason Onset Date Comments Advice 05/26/2024 Bret Encounter Details Date Type Department Care Team (Late st Contact Info) Description 05/26/2024 Telephone Access Center, Central Region [address] [facility] *DO NOT REMOVE THIS DEPARTMENT* [place] [address] Services, Scheduling [address] [place] [address] Advice (Bret ) Allergies Active Allergy Reactions Criticality Noted Date Comments Amoxicillin-Pot Clavulanate 05/17/20 22 Dizziness and confused documented as of this encounter (statuses as of 05/26/2024) Medications Medication Sig Dispensed Refills Start Date End Date Status ONEGlobalPrint SystemsUCH ULTRA SYSTEM W/DEVICE KITIndications:DM type 2, goal [...] nephrostomy daily. 180 mL 3 04/22/2024 Active [place] Catheter Access Port Change as needed [...] Capsule 3 05/05/2024 Active Ergocalciferol 1.25 MG (88537 UT) Oral Capsule (Vitamin D2(Drisdol)) Take 1 [...] have concerns for your saf ety? No 04/14/2024 Do you have concerns for you r family's safety? (Household - for ages 0-17 years) Not on file 04/14/2024 Utilities Answer Date Recorded Do you have trouble paying y our heating, water, or electric bill? Yes 04/14/2024 Is your family able to pay t he heat, water, or electric bill? (Household - for ages 0-17 years) Not on file 04/14/2024 Does your family have access to good internet? (Household - for ages 0-17 years) Not on file 04/14/2024 Employment Status Answer Date Recorded Are you [...] to medical visits or work? Never True 04/14/2024 Does your family have a hard time getting a ride to doctors visits? (Household - for ages 0-17 years) Not on file 04/14/2024 Has lack of transportation k ept you from medical appointments, meetings, work, or from getting things needed for daily living? Check all that apply. Yes, it has kept me from medical appointments 04/14/2024 Do you (or your family) have trouble finding or paying for a ride (transportation)? (Household - for ages 0-17 years) Not on file 04/14/2024 Housing Stability Answer Date Recorded Do you currently live in a s helter or have no steady place to sleep at night? No 04/14/2024 READ ONLY Do you think you a re at risk of becoming homeless? No 04/14/2024 Does your family worry about paying for your home or becoming homeless? (Household - for ages 0-17 years) Not on file 0 04/14/2024 Are you homeless or worried that you might be in the future? Yes 04/14/2024 Are you (or your family) jonel eless or worried that you might be in the future? (Household - for ages 0-17 years) Not on file Food Insecurity Answer Date Recorded Do you need food for this week? Yes 04/14/2024 Are you able to get enough f ood for your family? (Household - for ages 0-17 years) Not on file 04/14/2024 Does your family need food t his week? (Household - for ages 0-17 years) Not on file 04/14/2024 Do you always have enough fo od for your family? (Household - for ages 0-17 years) Not on file 04/14/2024 Sex and Gender Information Value Date Recorded [...] - 05/26/2024 12:42 PM EDT [facility] from [facility] calling regarding labs unable to get blood from his veins keeps collapsing. asking to speak with nurse. Also states that patient only put out 200 cc of urine yesterday, also with nausea and constipation documented in this encounter Plan of Treatment Upcoming Encounters Date Type Department Care Team (Latest Contact Info) Description 05/28/2024 9:00 AM EDT Telemedicine Palliative Medicine, [address] 5th [place] [address] Estefani Guajardo PA-C [address] [place] [address] 06/10/2024 11:00 AM EDT Telemedicine Nutrition Services [address] [address] Dorothea Mcmillan, HUMAIRA [address] [place] [address] 06/16/2024 3:30 PM EDT Office Visit Urology, [address] [place] [address] Isaías Novak MD [address] [place] [address] 07/01/2024 4:00 PM EDT Office Visit Family [facility] 132 [facility] [place] [address] Dru Fritz MD 132 [facility] [place] [address] 07/16/2024 2:00 PM EDT Hospital Encounter OR GL, Operating Room, [facility] - 4th Floor [address] [place] [phone] Raz Potts MD [address] [facility] [place] [address] 07/16/2024 2:00 PM EDT - 07/16/2024 2:48 PM EDT Surgery OR [facility], Operating Room, [facility] - 4th Floor [address] [place] [phone] Raz Potts MD [address] [place] [address] CHANGE OF PERCUTANEOUS TUBE OR DRAINAGE CATHETER WITH XRAY AND CONTRAST MEDIUM 07/17/2024 10:30 AM EDT Appointment Interventional Radiology [facility], [facility] 1st Floor [address] [place] [address] Scheduled Procedures Name Priority Associated Diagnoses Date/Ti me CHANGE OF PERCUTANEOUS TUBE OR DRAINAGE CATHETER WITH XRAY AND CONTRAST MEDIUM Gross hematuria 07/16/2024 2:00 PM EDT Health Maintenance Due Date Last Done Comments DISCUSS TOBACCO CESSATION (R EFER TO SMARTSET #8206) 1959 COVID-19 Vaccine (#1) 1964 Zoster Vaccines (1 of 2) 1978 Influenza Vaccine (FLU shot) (#1) 2024 Depression Monitoring 05/23/2025 05/23/2024 Diabetic Foot Exam Discontinued 05/20/2019, 0 03/27/2018, 10/28/2015 Diabetic Eye Exam Discontinued 03/02/2021, , 01/24/2016, Additional history exists Albumin/Creatinine Ratio Discontinued 022, 02/13/2018, 10/27/2015, Additional history exists documented as of this encounter Medical Devices Implanted Type Area Glass Science Engineer Device Identifier Shelf Expiration Date Model / Serial / Lot Stent Trnscarotid Enroute 7x40 - [id number] Implanted:Qty: 1 on 01/25/2021 by Zeinab Robert MD at [facility] Left: [facility] [id number] 05/31/2023 SR-0740-C S / / [id number] documented as of this encounter Advance Directives [...] patient or by statute hierarchy) Care Teams Senior Procurement Specialist Relationship Specialty Start Date End Date Dru Fritz MD [address] [place] [address] PCP - General Family Medicine 01/24/21 documented as of this encounter
--- OUTSIDE RECORDS SUMMARY | 2024-06-05 15:32 | External Medical Summary | Summary of Care ---
Author Name Unknown Organization [facility] Address [address] [place] [address] Phone [phone] Care Team Providers Care Automotive Design Drafter Name Role Phone Dru Fritz MD Primary Care Provider [phone] Reason for Visit * Reason Onset Date Comments Advice 05/26/2024 Bret Encounter Details Date Type Department Care Team (Late st Contact Info) Description 05/26/2024 Telephone Access Center, Central Region [address] [facility] *DO NOT REMOVE THIS DEPARTMENT* [place] [address] Services, Scheduling [address] [place] [address] Advice (Bret ) Allergies Active Allergy Reactions Criticality Noted Date Comments Amoxicillin-Pot Clavulanate 05/17/20 22 Dizziness and confused documented as of this encounter (statuses as of 05/26/2024) Medications Medication Sig Dispensed Refills Start Date End Date Status ONEAwesome MapsUCH ULTRA SYSTEM W/DEVICE KITIndications:DM type 2, goal [...] nephrostomy daily. 180 mL 3 04/22/2024 Active [place] Catheter Access Port Change as needed (Max [...] Capsule 3 05/05/2024 Active Ergocalciferol 1.25 MG (40952 UT) Oral Capsule (Vitamin D2(Drisdol)) Take 1 [...] 3:38 PM EDT Spoke with Keren from [facility]. States their RN went to patients home today. She was able to get the IV in and had some blood come out but it was very little. They've been having more and more difficulty getting blood from the patient. State they could send out another ROCK DUSTER tomorrow to try but they may not be able to get it again.RN noted that patient seemed escalera and unwell when she saw him earlier. I called and spoke with patients Brittaney. Advised that patient should be seen in the ER as [facility] her husbands [...] - 05/26/2024 3:25 PM EDT Keren from [facility] is calling to speak with a nurse about this patient. Call transferred to nurse Ángel * Telephone Encounter - Ángel Thompson RN - 05/26/2024 1:03 PM EDT I called and spoke to Chucky and Brittaney. They are going to call [facility] back and see if they will [...] 05/26/2024 12:42 PM EDT Allison from [facility] calling regarding labs unable to get blood from his veins keeps collapsing. asking to speak with nurse. Also states that patient only put out 200 cc of urine yesterday, also with nausea and constipation documented in this encounter Plan of Treatment Upcoming Encounters Date Type Department Care Team (Latest Contact Info) Description 05/28/2024 9:00 AM EDT Telemedicine Palliative Medicine, [facility] [address] [facility] 5th [place] [address] Estefani Guajardo PA-C 400 [place] [address] 06/10/2024 11:00 AM EDT Telemedicine Nutrition Services [address] [address] Dorothea Mcmillan, RDN 549 [place] [address] 06/16/2024 3:30 PM EDT Office Visit Urology, [facility] 132 [facility] [place] [address] Isaías Novak MD [address] [place] [address] 07/01/2024 4:00 PM EDT Office Visit Family Practice [facility] [address] [facility] [place] [address] Dru Fritz MD 132 [facility] [place] [address] 07/16/2024 2:00 PM EDT Hospital Encounter OR GL, Operating Room, [facility] - 4th Floor [address] [place] [phone] Raz Potts MD [address] [place] [address] 07/16/2024 2:00 PM EDT - 07/16/2024 2:48 PM EDT Surgery OR GL, Operating Room, [facility] - 4th Floor [address] [place] [phone] Raz Potts MD [address] [place] [address] CHANGE OF PERCUTANEOUS TUBE OR DRAINAGE CATHETER WITH XRAY AND CONTRAST MEDIUM 07/17/2024 10:30 AM EDT Appointment Interventional Radiology [facility], [facility] 1[facility] [address] [place] [address] Scheduled Procedures Name Priority Associated Diagnoses Date/Ti me CHANGE OF PERCUTANEOUS TUBE OR DRAINAGE CATHETER WITH XRAY AND CONTRAST MEDIUM Gross hematuria 07/16/2024 2:00 PM EDT Health Maintenance Due Date Last Done Comments DISCUSS TOBACCO CESSATION (R EFER TO SMARTSET #5302) 1959 COVID-19 Vaccine (#1) 1964 Zoster Vaccines (1 of 2) 1978 Influenza Vaccine (FLU shot) (#1) 2024 Depression Monitoring 05/26/2025 05/26/2024 Diabetic Foot Exam Discontinued 05/20/2019, 0 03/27/2018, 10/28/2015 Diabetic Eye Exam Discontinued 03/02/2021, , 01/24/2016, Additional history exists Albumin/Creatinine Ratio Discontinued 022, 02/13/2018, 10/27/2015, Additional history exists documented as of this encounter Medical Devices Implanted Type Area Bi Data Modeler Device Identifier Shelf Expiration Date Model / Serial / Lot Stent Trnscarotid Enroute 7x40 - [id number] Implanted:Qty: 1 on 01/25/2021 by Zeinab Robert MD at OR [facility] Left: Carotid [facility] [id number] 05/31/2023 SR-0740-C S / / [id number] documented as of this encounter Advance Directives [...] patient or by statute hierarchy) Care Teams Automotive Design Drafter Relationship Specialty Start Date End Date Dru Fritz MD [address] [place] [address] PCP - General Family Medicine 01/24/21 documented as of this encounter
--- OUTSIDE RECORDS SUMMARY | 2024-06-05 15:32 | External Medical Summary | Summary of Care ---
Author Name Unknown Organization [facility] Address [address] [place] [address] Phone [phone] Care Team Providers Care Clinical Reviewer Name Role Phone Dru Fritz MD Primary Care Provider [phone] Reason for Visit * Reason Onset Date Comments Advice 05/26/2024 Bret Encounter Details Date Type Department Care Team (Late st Contact Info) Description 05/26/2024 Telephone Access Center, Central Region [address] [facility] *DO NOT REMOVE THIS DEPARTMENT* [place] [address] Services, Scheduling [address] [place] [address] Advice (Bret ) Allergies Active Allergy Reactions Criticality Noted Date Comments Amoxicillin-Pot Clavulanate 05/17/20 22 Dizziness and confused documented as of this encounter (statuses as of 05/26/2024) Medications Medication Sig Dispensed Refills Start Date End Date Status ONEMax-WellnessUCH ULTRA SYSTEM W/DEVICE KITIndications:DM type 2, goal [...] nephrostomy daily. 180 mL 3 04/22/2024 Active [place] Catheter Access Port Change as needed (Max [...] Capsule 3 05/05/2024 Active Ergocalciferol 1.25 MG (51703 UT) Oral Capsule (Vitamin D2(Drisdol)) Take 1 [...] encounter Miscellaneous Notes * Telephone Encounter - Keren Neri OSA - 05/26/2024 3:25 PM EDT Keren from [facility] is calling to speak with a nurse [...] - 05/26/2024 12:42 PM EDT Allison from [facility] calling regarding labs unable to get blood from his veins keeps collapsing. asking to speak with nurse. Also states that patient only put out 200 cc of urine yesterday, also with nausea and constipation documented in this encounter Plan of Treatment Upcoming Encounters Date Type Department Care Team (Latest Contact Info) Description 05/28/2024 9:00 AM EDT Telemedicine Palliative Medicine, [facility] 400 [facility] 5th Floor [place] [address] Estefani Guajardo PA-C 400 [facility] [place] [address] 06/10/2024 11:00 AM EDT Telemedicine Nutrition Services [address] [address] Dorothea Mcmillan, RDN [address] [place] [address] 06/16/2024 3:30 PM EDT Office Visit Urology, [facility] 132 [place] [address] Isaías Novak MD [address] [place] [address] 07/01/2024 4:00 PM EDT Office Visit Family Practice [facility] 132 [place] [address] Dru Fritz MD 132 [place] [address] 07/16/2024 2:00 PM EDT Hospital Encounter OR GL, Operating Room, [facility] - 4th Floor [address] [place] [phone] Raz Potts MD [address] [place] [address] 07/16/2024 2:00 PM EDT - 07/16/2024 2:48 PM EDT Surgery OR [facility], Operating Room, [facility] - 4th Floor [address] [place] [phone] Raz Potts MD [address] [place] [address] CHANGE OF PERCUTANEOUS TUBE OR DRAINAGE CATHETER WITH XRAY AND CONTRAST MEDIUM 07/17/2024 10:30 AM EDT Appointment Interventional Radiology [facility] 1st Floor [address] [place] [address] Scheduled Procedures Name Priority Associated Diagnoses Date/Ti me CHANGE OF PERCUTANEOUS TUBE OR DRAINAGE CATHETER WITH XRAY AND CONTRAST MEDIUM Gross hematuria 07/16/2024 2:00 PM EDT Health Maintenance Due Date Last Done Comments DISCUSS TOBACCO CESSATION (R EFER TO SMARTSET #4717) 1960 COVID-19 Vaccine (#1) 1964 Zoster Vaccines (1 of 2) 1978 Influenza Vaccine (FLU shot) (#1) 2024 Depression Monitoring 05/26/2025 05/26/2024 Diabetic Foot Exam Discontinued 05/20/2019, 0 03/27/2018, 10/28/2015 Diabetic Eye Exam Discontinued 03/02/2021, , 01/24/2016, Additional history exists Albumin/Creatinine Ratio Discontinued 022, 02/13/2018, 10/27/2015, Additional history exists documented as of this encounter Medical Devices Implanted Type Area Condominium Association Manager Device Identifier Shelf Expiration Date Model / Serial / Lot Stent Trnscarotid Enroute 7x40 - [id number] Implanted:Qty: 1 on 01/25/2021 by Zeinab Robert MD at [facility] Left: [facility] [id number] 05/31/2023 SR-0740-C S / / [id number] documented as of this encounter Advance Directives [...] or by statute hierarchy) Care Teams Clinical Reviewer Relationship Specialty Start Date End Date Dru Fritz MD [address] [place] [address] PCP - General Family Medicine 01/24/21 documented as of this encounter
--- NOTE | 2024-06-05 15:42 | Electrocardiogram Report ---
Test Reason : Blood Pressure : */* mmHG Vent. Rate : 114 BPM Atrial Rate : * BPM P-R Int : * ms QRS Dur : 90 ms QT Int : 340 ms P-R-T Axes : * 79 257 degrees QTcB Int : 468 ms Sinus tachycardia Nonspecific ST and T wave abnormality Abnormal ECG When compared with ECG of 10-May-2024 14:31, Vent. rate has increased by 38 bpm Nonspecific T wave abnormality now evident in Inferior leads Inverted T waves have replaced nonspecific T wave abnormality in Lateral leads Confirmed by Yrn Horn ([id number]) on 06/05/2024 3:42:17 PM Referred By: REFERRED SELF Confirmed By: Yrn Horn
[2024-06-05] MEDS ORDERED: POLYETHYLENE (MIRALAX) 17 GM PACK PO PRN (15:47)
[2024-06-05] MEDS ORDERED: MoRPHine SULFATE IR 15 MG TAB (IMMEDIATE RELEASE) PO PRN (15:49)
[2024-06-05] MEDS ORDERED: GLUCAGON FOR INJ 1 MG VIAL SQ PRN (15:52)
[2024-06-05] MEDS ORDERED: DEXTROSE 50% 50 ML SYRINGE IV PRN (15:52)
[2024-06-05] MEDS ORDERED: CARBOHYDRATES FOR HYPOGLYCEMIA PO PRN (15:52)
[2024-06-05] MEDS ORDERED: GLUCOSE 10 TAB/TUBE PO PRN (15:52)
[2024-06-05] MEDS ORDERED: GLUCOSE 40% GEL 15 GM TUBE PO PRN (15:52)
[2024-06-05 16:43] LABS: Appearance Urine Cloudy (Clear); Bacteria Urine Automated 3+ (None Seen); Bilirubin Urine Negative (Negative); Blood Urine 3+ (Negative); Color Urine Yellow; Epithelial Cell Urine Auto 0-2 /hpf (0-2); Glucose Urine UA Negative (Negative); Ketones Urine 1+ (Negative); Leukocyte Esterase Urine 3+ (Negative); Nitrite Urine Positive (Negative); Protein Urine 3+ (Negative); RBC Urine Automated >20 /hpf (0-2); Specific Gravity Urine 1.017 (1.000-1.030); Urobilinogen Urine Negative (Negative); WBC Urine Automated >50 /hpf (0-5)
[2024-06-05] MEDS: SODIUM CHLORIDE 0.9% 500 ML IV SCH (16:50)
--- NOTE | 2024-06-05 17:00 | Urology Consultation ---
Date of Consultation June 05, 2024 Assessment & Plan (1) Complicated UTI (urinary tract infection): (2) Prostate cancer metastatic to bone: Plan 63-year-old male with history of metastatic prostate cancer and bilateral nephrostomy tubes admitted with sepsis, complicated UTI. -Pt admitted to ICU on pressors. Afebrile. -Labs reviewed-WBC 3.0, hemoglobin 7.5, creatinine 1.29 -Urine and blood culture pending -Bilateral nephrostomy tubes intact and draining yellow urine. Continue to monitor. -CT A/P reviewed - Bilateral nephrostomy tubes are in good position. No hydronephrosis. -No acute intervention warranted. -Continue antibiotics and tailor per culture sensitivities. -Continue supportive care. -Urology will follow along. Plan reviewed with , on-call urologist. History of Present Illness Attending Physician: Dion Aden MD History of Present Illness 63-year-old male with history of metastatic prostate cancer treated with chemotherapy and palliative radiation and bilateral nephrostomy tubes who presented to the ED today with worsening confusion and lethargy and is admitted with sepsis, complicated UTI. On arrival to the ED, he was noted to be afebrile but hypotensive. Patient has been started on pressors and is admitted to the ICU for further care. Urology has been consulted for complicated UTI. Patient seen at bedside in the ICU. Awake, resting in bed on arrival. at bedside. Bilateral nephrostomy tubes are draining yellow urine. Per , nephrostomy tube are due for exchange in July. Allergies Allergy/AdvReac Type Severity Reaction Status Date / Time amoxicillin [From Augmentin] AdvReac Intermediate DIZZINESS/C Verified 05/20/24 10:42 ONFUSION clavulanic acid AdvReac Intermediate DIZZINESS/C Verified 05/20/24 10:42 [From Augmentin] ONFUSION codeine AdvReac Intermediate Gastrointestinal Verified 05/20/24 10:42 Upset Home Medications Medication Instructions Recorded Confirmed Type acetaminophen 500 mg tablet 1,000 mg PO Q6H PRN Pain 12/06/22 06/05/24 History (Tylenol Extra Strength) linagliptin 5 mg tablet (Tradjenta) 5 mg PO QAM 12/06/22 06/05/24 History potassium phosphate, monobasic 500 500 mg PO BID 01/11/24 06/05/24 History mg soluble tablet (K-Phos Original) magnesium chloride 64 mg 64 mg PO BID #60 tabs 02/22/24 06/05/24 Rx (magnesium chloride) tablet,delayed release (Mag 64) tamsulosin 0.4 mg capsule 0.4 mg PO QAM #30 caps 02/22/24 06/05/24 Rx buspirone 5 mg tablet 5 mg PO TID 03/11/24 06/05/24 History morphine 15 mg immediate release 15 mg PO Q4H PRN pain 03/29/24 06/05/24 History tablet calcitriol 0.25 mcg capsule 0.25 mcg PO DAILY 04/09/24 06/05/24 History cyanocobalamin (vitamin B-12) 1,000 mcg PO DAILY 04/09/24 06/05/24 History 1,000 mcg tablet ergocalciferol (vitamin D2) 1,250 1,250 mcg PO MARIANO 04/09/24 06/05/24 History mcg (50,000 unit) capsule ferrous sulfate 325 mg (65 mg 325 mg PO DAILY 04/09/24 06/05/24 History iron) tablet (FeroSul) sacubitril 24 mg-valsartan 26 mg 1 tab PO BID 05/07/24 06/05/24 History tablet (Entresto) calcium carbonate 500 mg/5 mL (as 500 mg PO BID 06/05/24 06/05/24 History calcium carb 1,250 mg/5 mL) oral suspension metoprolol tartrate 25 mg tablet 12.5 mg PO DAILY 06/05/24 06/05/24 History mirtazapine 15 mg tablet 15 mg PO HS 06/05/24 06/05/24 History morphine 30 mg tablet,extended 30 mg PO AMHS 06/05/24 06/05/24 History release ondansetron 8 mg disintegrating 8 mg PO Q8H PRN Nausea And Vomiting 06/05/24 06/05/24 History tablet prochlorperazine maleate 10 mg 10 mg PO Q6 PRN Nausea And Vomiting 06/05/24 06/05/24 History tablet sennosides 8.6 mg capsule (senna) 17.2 mg PO HS 06/05/24 06/05/24 History Patient History Medical History History of left heart catheterization (LHC) "cardiac cath -02/04 10-20% block" Stroke Surgical History History of left common carotid artery stent placement Family History Mother , in her 80s Myocardial infarction H/O cardiac surgery Diabetes Father , 58yo Myocardial infarction Lung disease From working in [employer]; Brother No problems noted. Brother No problems noted. Brother No problems noted. Brother No problems noted. Brother No problems noted. Daughter No problems noted. Son No problems noted. Son Diabetes Other Heart disease Hypertension Social History Smoking Status: Current every day smoker Tobacco Type: Cigarettes packs per day: 0.5; Cigarettes Per Day: pack per day; Second Hand Exposure: Yes; Do You Dip or Chew Tobacco: No; Hx Alcohol Use: No Hx Substance Use: No Preferred Language: Marley Spoon Communication Ability: Effective Visual Impairment: No Limitations Hearing Ability: Normal Car Storer Required: No Beliefs That Will Affect Care: None marital status: Current Living Situation: Spouse Current Living Situation Comment: , daughter/her spouse current occupational status: retired Feels Safe at Home: Yes Diet: regular caffeine: No during the past year weight has: decreased > 10 lbs Assistive Devices: Hospital Bed and Wheelchair Review of Systems Review of Systems: All systems reviewed & are unremarkable except as noted in HPI & below Physical Exam Constitutional: + ill appearing, + thin and + frail appe aring; no acute distress Respiratory: no respiratory distress and no labored breathing Neurologic: awake Psychiatric: Orientation: alert, oriented to person and cooperative Genitourinary: Bilateral nephrostomy tubes draining yellow urine Results & Data Vital Signs (Past 12 Hours) Vital Signs Temp Pulse Pulse Resp BP BP Pulse Ox 06/05/24 16:00 104 H 18 100 06/05/24 16:00 36.4 C L 06/05/24 15:48 100 H 24 100 06/05/24 15:45 121/73 06/05/24 15:45 121/73 06/05/24 15:33 95 H 18 100 06/05/24 14:30 107 H 20 92/63 L 93 06/05/24 14:19 99 H 18 117/68 98 06/05/24 14:06 116 H 18 90/69 L 06/05/24 13:45 101 H 18 81/57 L 100 06/05/24 12:44 93 H 06/05/24 12:35 94 H 14 104/80 99 06/05/24 11:42 36.3 C L 122 H 20 74/57 L 100 O2 Del Method 06/05/24 16:00 06/05/24 16:00 06/05/24 15:48 Room Air 06/05/24 15:45 06/05/24 15:45 06/05/24 15:33 06/05/24 14:30 Room Air 06/05/24 14:19 Room Air 06/05/24 14:06 06/05/24 13:45 06/05/24 12:44 06/05/24 12:35 Room Air 06/05/24 11:42 Room Air PG Care Time/CCT Total # of Minutes Spent Total Time Spent with Patient: Total time spent is greater than 50% in coordination of care (as documented) at patient's floor/unit and/or counseling patient: Coding Level of Care Code 61045 IN/OBS CONSULT LVL 3,45M Diagnoses Complicated UTI (urinary tract infection) N39.0 Prostate cancer metastatic to bone C61; C79.51
[2024-06-05] MEDS: ICU Protocol for HYPERglycemia SCH (17:19)
[2024-06-05] MEDS: STAT IV Infusion **Titration per Protocol STA (17:19)
[2024-06-05] MEDS: INSULIN ASPART PER UNIT CHARGE SC SCH (18:34)
[2024-06-05] MEDS: MIRTAZAPINE TAB 15 MG TAB PO SCH (21:02)
[2024-06-05] MEDS: CALCIUM CARBONATE 1,250 MG/5 ML UDC PO SCH (21:03)
[2024-06-05] MEDS: MoRPHine SULFATE IR 15 MG TAB (IMMEDIATE RELEASE) PO PRN (21:03)
[2024-06-05] MEDS: busPIRone 5 MG TAB PO SCH (21:03)
[2024-06-05] MEDS: DOCUSATE SODIUM 100 MG CAP PO SCH (21:03)
[2024-06-05] MEDS: SENNA 8.6 MG TAB PO SCH (21:03)
--- OUTSIDE RECORDS SUMMARY | 2024-06-05 21:52 | External Medical Summary | Summary of Care ---
Author Name Unknown Organization [facility] Address [address] [place] [address] Phone [phone] Care Team Providers Care Face Boss Name Role Phone Dru Fritz MD Primary Care Provider [phone] [phone] Reason for Visit * Reason Onset Date Comments Advice 06/05/2024 Encounter Details Date Type Department Care Team (Late st Contact Info) Description 06/05/2024 Telephone Hematology/Oncology [facility] 200 [facility] [place] [phone] Elio [place] MD [address] [place] [address] Advice Allergies Active Allergy Reactions Criticality Noted Date Comments Amoxicillin-Pot Clavulanate 05/17/20 22 Dizziness and confused documented as of this encounter (statuses as of 06/05/2024) Medications Medication Sig Dispensed Refills Start Date End Date Status My eShoeTOUCH ULTRA SYSTEM W/DEVICE KITIndications:DM type 2, goal [...] nephrostomy daily. 180 mL 3 04/22/2024 Active [place] Catheter Access Port Change as needed ([place] 600ml drainage bag) 2 Each 3 04/28/2024 [...] Capsule 3 05/05/2024 Active Ergocalciferol 1.25 MG (68557 UT) Oral Capsule (Vitamin D2(Drisdol)) Take 1 [...] suspected opioid overdose. Seek immediate medical attention. [email or web address] 1 Each 3 05/28/2024 Active documented as [...] Telephone Encounter - Ángel Thompson RN - 06/05/2024 9:35 AM EDT Pt asking for our office to call her back today in regards to her . HH has been unsuccessful in drawing his blood and he refused to go to the lab yesterday to have his labs done. She states "he isn't doing well." I called the patients back. She was very upset on the phone stating "his wishes were not to goto the hospital but he has been in and out of it so I really don't know what to do" I advised that he should be seen in the hospital, this won't go against his wishes as they can helpto provide support for him if it were time to discuss further steps with palliative care/hospice and they would already be aware of his case since they have seen him in the past. Advised to call an ambulance as she states patient has been too weak to stand. She states she will call the ambulance but she wanted to talk to her and daughter first. I offered to call the ambulance for her but she refused at this time. documented in this encounter Plan of Treatment Upcoming Encounters Date Type Department Care Team (Latest Contact Info) Description 06/10/2024 11:00 AM EDT Telemedicine Nutrition Services [address] [address] Dorothea Mcmillan RDN [address] [place] [address] 06/11/2024 2:30 PM EDT Telemedicine Palliative Medicine [facility] 200 [place] [address] Nuvia Steven MD [address] [place] [address] 06/16/2024 3:30 PM EDT Office Visit Urology, [facility] [address] [facility] [place] [address] Isaías Novak MD [address] [place] [address] 07/01/2024 4:00 PM EDT Office Visit Family Practice [facility] 132 [facility] [place] [address] Dru Fritz MD 132 [place] [address] 07/16/2024 2:00 PM EDT Hospital Encounter [facility], Operating Room, [facility] - 4th Floor [address] [place] [address] Raz Potts MD [address] [place] [address] 07/16/2024 2:00 PM EDT - 07/16/2024 2:48 PM EDT Surgery OR [facility], Operating Room, [facility] - 4th Floor [address] [place] [address] Raz Potts MD [address] [place] [address] CHANGE OF PERCUTANEOUS TUBE OR DRAINAGE CATHETER WITH XRAY AND CONTRAST MEDIUM 07/17/2024 10:30 AM EDT Appointment Interventional Radiology [facility], [facility] 1st Floor [address] [place] [facility] [place] [address] Scheduled Procedures Name Priority Associated Diagnoses Date/Ti me CHANGE OF PERCUTANEOUS TUBE OR DRAINAGE CATHETER WITH XRAY AND CONTRAST MEDIUM Gross hematuria 07/16/2024 2:00 PM EDT Health Maintenance Due Date Last Done Comments DISCUSS TOBACCO CESSATION (R EFER TO SMARTSET #7028) 1959 COVID-19 Vaccine (#1) 1964 Zoster Vaccines (1 of 2) 1978 Influenza Vaccine (FLU shot) (#1) 2024 Depression Monitoring 05/26/2025 05/26/2024 Diabetic Foot Exam Discontinued 05/20/2019, 0 03/27/2018, 10/28/2015 Diabetic Eye Exam Discontinued 03/02/2021, , 01/24/2016, Additional history exists Albumin/Creatinine Ratio Discontinued 022, 02/13/2018, 10/27/2015, Additional history exists documented as of this encounter Medical Devices Implanted Type Area Radiation / Chemistry Technician Device Identifier Shelf Expiration Date Model / Serial / Lot Stent Trnscarotid Enroute 7x40 - [id number] Implanted:Qty: 1 on 01/25/2021 by Zeinab Robert MD at [facility] Left: Carotid [facility] [id number] 05/31/2023 SR-0740-C S / / [id number] documented as of this encounter Advance Directives [...] patient or by statute hierarchy) Care Teams Face Boss Relationship Specialty Start Date End Date Dru Fritz MD [address] [place] [address] PCP - General Family Medicine 01/24/21 documented as of this encounter
--- OUTSIDE RECORDS SUMMARY | 2024-06-05 21:52 | External Medical Summary | Summary of Care ---
Author Name Unknown Organization [facility] Address [address] [place] [address] Phone [phone] Care Team Providers Care Weatherization Technician Name Role Phone Dru Fritz MD Primary Care Provider [phone] Reason for Visit * Reason Onset Date Comments Advice 06/05/2024 Encounter Details Date Type Department Care Team (Late st Contact Info) Description 06/05/2024 Telephone Hematology/Oncology [facility] 200 [facility] [place] [phone] Elio [place] MD 200 [place] [address] Advice Allergies Active Allergy Reactions Criticality Noted Date Comments Amoxicillin-Pot Clavulanate 05/17/20 22 Dizziness and confused documented as of this encounter (statuses as of 06/05/2024) Medications Medication Sig Dispensed Refills Start Date End Date Status Vico SoftwareTOUCH ULTRA SYSTEM W/DEVICE KITIndications:DM type 2, goal [...] nephrostomy daily. 180 mL 3 04/22/2024 Active [place] Catheter Access Port Change as needed ([place] 600ml drainage bag) 2 Each 3 04/28/2024 [...] Capsule 3 05/05/2024 Active Ergocalciferol 1.25 MG (38428 UT) Oral Capsule (Vitamin D2(Drisdol)) Take 1 [...] suspected opioid overdose. Seek immediate medical attention. [email or web address] 1 Each 3 05/28/2024 Active documented as [...] 06/10/2024 11:00 AM EDT Telemedicine Nutrition Services [address] [address] Dorothea Mcmillan RDN [address] [place] [address] 06/11/2024 2:30 PM EDT Telemedicine Palliative Medicine [facility] 200 [place] [address] Nuvia Steven MD [address] [place] [address] 06/16/2024 3:30 PM EDT Office Visit Urology, [facility] 132 [place] [address] Isaías Novak MD [address] [place] [address] 07/01/2024 4:00 PM EDT Office Visit Family Practice [facility] 132 [facility] [place] [address] Dru Fritz MD 132 [place] [address] 07/16/2024 2:00 PM EDT Hospital Encounter [facility], Operating Room, [facility] - 4th Floor [address] [place] [address] Raz Potts MD [address] [place] [address] 07/16/2024 2:00 PM EDT - 07/16/2024 2:48 PM EDT Surgery OR [facility], Operating Room, [facility] - 4th Floor [address] [place] [address] Raz Potts MD [address] [place] [address] CHANGE OF PERCUTANEOUS TUBE OR DRAINAGE CATHETER WITH XRAY AND CONTRAST MEDIUM 07/17/2024 10:30 AM EDT Appointment Interventional Radiology [facility], [facility] 1st Floor [address] [place] [facility] [place] [address] Scheduled Procedures Name Priority Associated Diagnoses Date/Ti me CHANGE OF PERCUTANEOUS TUBE OR DRAINAGE CATHETER WITH XRAY AND CONTRAST MEDIUM Gross hematuria 07/16/2024 2:00 PM EDT Health Maintenance Due Date Last Done Comments DISCUSS TOBACCO CESSATION (R EFER TO SMARTSET #2105) 1959 COVID-19 Vaccine (#1) 1964 Zoster Vaccines (1 of 2) 1978 Influenza Vaccine (FLU shot) (#1) 2024 Depression Monitoring 05/26/2025 05/26/2024 Diabetic Foot Exam Discontinued 05/20/2019, 0 03/27/2018, 10/28/2015 Diabetic Eye Exam Discontinued 03/02/2021, , 01/24/2016, Additional history exists Albumin/Creatinine Ratio Discontinued 022, 02/13/2018, 10/27/2015, Additional history exists documented as of this encounter Medical Devices Implanted Type Area Fur Stretcher Device Identifier Shelf Expiration Date Model / Serial / Lot Stent Trnscarotid Enroute 7x40 - [id number] Implanted:Qty: 1 on 01/25/2021 by Zeinab Robert MD at [facility] Left: Carotid [facility] [id number] 05/31/2023 SR-0740-C S / / [id number] documented as of this encounter Advance Directives [...] patient or by statute hierarchy) Care Teams Weatherization Technician Relationship Specialty Start Date End Date Dru Fritz MD [address] [place] [address] PCP - General Family Medicine 01/24/21 documented as of this encounter
--- OUTSIDE RECORDS SUMMARY | 2024-06-05 21:52 | External Medical Summary | Summary of Care ---
Author Name Unknown Organization [facility] Address [address] [place] [address] Phone [phone] Care Team Providers Care Auto Heater Mechanic Name Role Phone Dru Fritz MD Primary Care Provider [phone] [phone] Reason for Visit * Reason Onset Date Comments Advice 06/05/2024 Encounter Details Date Type Department Care Team (Late st Contact Info) Description 06/05/2024 Telephone Hematology/Oncology [facility] 200 [facility] [phone] Elio [place] MD 200 [place] [address] Advice Allergies Active Allergy Reactions Criticality Noted Date Comments Amoxicillin-Pot Clavulanate 05/17/20 22 Dizziness and confused documented as of this encounter (statuses as of 06/05/2024) Medications Medication Sig Dispensed Refills Start Date End Date Status Sun NumberTOUCH ULTRA SYSTEM W/DEVICE KITIndications:DM type 2, goal [...] nephrostomy daily. 180 mL 3 04/22/2024 Active [place] Catheter Access Port Change as needed ([place] 600ml drainage bag) 2 Each 3 04/28/2024 [...] Capsule 3 05/05/2024 Active Ergocalciferol 1.25 MG (89131 UT) Oral Capsule (Vitamin D2(Drisdol)) Take 1 [...] suspected opioid overdose. Seek immediate medical attention. [email or web address] 1 Each 3 05/28/2024 Active documented as [...] 06/10/2024 11:00 AM EDT Telemedicine Nutrition Services [address] [address] Dorothea Mcmillan RDN [address] [place] [address] 06/11/2024 2:30 PM EDT Telemedicine Palliative Medicine [facility] 200 [place] [address] Nuvia Steven MD [address] [place] [address] 06/16/2024 3:30 PM EDT Office Visit Urology, [facility] 132 [place] [address] Isaías Novak MD [address] [place] [address] 07/01/2024 4:00 PM EDT Office Visit Family Practice [facility] 132 [facility] [place] [address] Dru Fritz MD 132 [place] [address] 07/16/2024 2:00 PM EDT Hospital Encounter [facility], Operating Room, [facility] - 4th Floor [address] [place] [address] Raz Potts MD [address] [place] [address] 07/16/2024 2:00 PM EDT - 07/16/2024 2:48 PM EDT Surgery OR [facility], Operating Room, [facility] - 4th Floor [address] [place] [address] Raz Potts MD [address] [place] [address] CHANGE OF PERCUTANEOUS TUBE OR DRAINAGE CATHETER WITH XRAY AND CONTRAST MEDIUM 07/17/2024 10:30 AM EDT Appointment Interventional Radiology [facility], [facility] 1st Floor [address] [facility] [place] [address] Scheduled Procedures Name Priority Associated Diagnoses Date/Ti me CHANGE OF PERCUTANEOUS TUBE OR DRAINAGE CATHETER WITH XRAY AND CONTRAST MEDIUM Gross hematuria 07/16/2024 2:00 PM EDT Health Maintenance Due Date Last Done Comments DISCUSS TOBACCO CESSATION (R EFER TO SMARTSET #1401) 1959 COVID-19 Vaccine (#1) 1964 Zoster Vaccines (1 of 2) 1978 Influenza Vaccine (FLU shot) (#1) 2024 Depression Monitoring 05/26/2025 05/26/2024 Diabetic Foot Exam Discontinued 05/20/2019, 0 03/27/2018, 10/28/2015 Diabetic Eye Exam Discontinued 03/02/2021, , 01/24/2016, Additional history exists Albumin/Creatinine Ratio Discontinued 022, 02/13/2018, 10/27/2015, Additional history exists documented as of this encounter Medical Devices Implanted Type Area Technical Developer Device Identifier Shelf Expiration Date Model / Serial / Lot Stent Trnscarotid Enroute 7x40 - [id number] Implanted:Qty: 1 on 01/25/2021 by Zeinab Robert MD at [facility] Left: Carotid [facility] [id number] 05/31/2023 SR-0740-C S / / [id number] documented as of this encounter Advance Directives [...] patient or by statute hierarchy) Care Teams Auto Heater Mechanic Relationship Specialty Start Date End Date Dru Fritz MD [address] [place] [address] PCP - General Family Medicine 01/24/21 documented as of this encounter
--- OUTSIDE RECORDS SUMMARY | 2024-06-05 21:52 | External Medical Summary | Summary of Care ---
Author Name Unknown Organization [facility] Address [address] [place] [address] Phone [phone] Care Team Providers Care Stand Grinder Name Role Phone Dru Fritz MD Primary Care Provider [phone] [phone] Reason for Visit * Reason Onset Date Comments Advice 06/05/2024 Encounter Details Date Type Department Care Team (Late st Contact Info) Description 06/05/2024 Telephone Hematology/Oncology [facility] 200 [facility] [place] [phone] Elio [place] MD 200 [place] [address] Advice Allergies Active Allergy Reactions Criticality Noted Date Comments Amoxicillin-Pot Clavulanate 05/17/20 22 Dizziness and confused documented as of this encounter (statuses as of 06/05/2024) Medications Medication Sig Dispensed Refills Start Date End Date Status 3ROAMTOUCH ULTRA SYSTEM W/DEVICE KITIndications:DM type 2, goal [...] nephrostomy daily. 180 mL 3 04/22/2024 Active [place] Catheter Access Port Change as needed ([place] 600ml drainage bag) 2 Each 3 04/28/2024 [...] Capsule 3 05/05/2024 Active Ergocalciferol 1.25 MG (70094 UT) Oral Capsule (Vitamin D2(Drisdol)) Take 1 [...] suspected opioid overdose. Seek immediate medical attention. [email or web address] how [email or web address]/watch?v=[email or web address] 1 Each 3 05/28/2024 Active documented as [...] Encounter - Ángel Thompson RN - 06/05/2024 11:53 AM EDT Per message from patients , ambulance is taking patient to [facility]. * Telephone Encounter - Ángel Thompson RN [...] 06/10/2024 11:00 AM EDT Telemedicine Nutrition Services [address] [address] Dorothea Mcmillan, RDN [address] [place] [address] 06/11/2024 2:30 PM EDT Telemedicine Palliative Medicine [facility] [address] [place] [address] Nuvia Steven MD 400 [place] [address] 06/16/2024 3:30 PM EDT Office Visit Urology, [facility] 132 [place] [address] Isaías Novak MD 27 [place] [address] 07/01/2024 4:00 PM EDT Office Visit Family Practice [facility] 132 [place] [address] Dru Fritz MD 132 [place] [address] 07/16/2024 2:00 PM EDT Hospital Encounter OR [facility], Operating Room, [facility] - 4th Floor [address] [place] [phone] Raz Potts MD [address] [place] [address] 07/16/2024 2:00 PM EDT - 07/16/2024 2:48 PM EDT Surgery OR [facility], Operating Room, [facility] - 4th Floor [address] [place] [phone] Raz Potts MD [address] [place] [address] CHANGE OF PERCUTANEOUS TUBE OR DRAINAGE CATHETER WITH XRAY AND CONTRAST MEDIUM 07/17/2024 10:30 AM EDT Appointment Interventional Radiology [facility], Tessa Garcia 1st Floor [address] [place] [address] Scheduled Procedures Name Priority Associated Diagnoses Date/Ti me CHANGE OF PERCUTANEOUS TUBE OR DRAINAGE CATHETER WITH XRAY AND CONTRAST MEDIUM Gross hematuria 07/16/2024 2:00 PM EDT Health Maintenance Due Date Last Done Comments DISCUSS TOBACCO CESSATION (R EFER TO SMARTSET #7491) 1959 COVID-19 Vaccine (#1) 1964 Zoster Vaccines (1 of 2) 1978 Influenza Vaccine (FLU shot) (#1) 2024 Depression Monitoring 05/26/2025 05/26/2024 Diabetic Foot Exam Discontinued 05/20/2019, 0 03/27/2018, 10/28/2015 Diabetic Eye Exam Discontinued 03/02/2021, , 01/24/2016, Additional history exists Albumin/Creatinine Ratio Discontinued 022, 02/13/2018, 10/27/2015, Additional history exists documented as of this encounter Medical Devices Implanted Type Area Sharepoint Web Developer Device Identifier Shelf Expiration Date Model / Serial / Lot Stent Trnscarotid Enroute 7x40 - [id number] Implanted:Qty: 1 on 01/25/2021 by Zeinab Robert MD at OR [facility] Left: Carotid [facility] [id number] 05/31/2023 SR-0740-C S / / [id number] documented as of this encounter Advance Directives [...] patient or by statute hierarchy) Care Teams Stand Grinder Relationship Specialty Start Date End Date Dru Fritz MD [address] [place] [address] PCP - General Family Medicine 01/24/21 documented as of this encounter
[2024-06-05] MEDS: PLASMA-LYTE A 1,000 ML IV SCH (22:39)
[2024-06-05] MEDS: DICLOFENAC SOD 1% GEL 100 GM TUBE EXT SCH (22:39)
[2024-06-05 23:08] LABS: Appearance Urine Turbid (Clear); Bacteria Urine Automated 4+ (None Seen); Bilirubin Urine Negative (Negative); Blood Urine 3+ (Negative); Cast Urine Automated >20 /lpf (0-2); Color Urine Yellow; Glucose Urine UA Negative (Negative); Ketones Urine Trace (Negative); Leukocyte Esterase Urine 3+ (Negative); Nitrite Urine Negative (Negative); Protein Urine 3+ (Negative); RBC Urine Automated >20 /hpf (0-2); Specific Gravity Urine 1.018 (1.000-1.030); Urobilinogen Urine Negative (Negative); WBC Urine Automated >50 /hpf (0-5); pH Urine 6.5 (4.5-7.5)
[2024-06-05 23:09] LABS: Appearance Urine Turbid (Clear); Bacteria Urine Automated 4+ (None Seen); Bilirubin Urine Negative (Negative); Blood Urine 3+ (Negative); Cast Urine Automated >20 /lpf (0-2); Color Urine Orange; Glucose Urine UA Negative (Negative); Ketones Urine Trace (Negative); Leukocyte Esterase Urine 3+ (Negative); Nitrite Urine Negative (Negative); Protein Urine 3+ (Negative); RBC Urine Automated >20 /hpf (0-2); Urobilinogen Urine Negative (Negative); WBC Urine Automated >50 /hpf (0-5)
[2024-06-05] MEDS: CEFEPIME 2,000 MG in SYRINGE 0 ML IV SCH (23:44)
[2024-06-05] MEDS: VANCOMYCIN HCL 1,000 MG in SODIUM CHLORIDE 0.9% 250 ML IV SCH (23:44)
[2024-06-06 04:23] LABS: Hematocrit (blood only) 21.3 % (42.0-52.0); Mean Corpuscular Hgb Conc 32.9 g/dL (32.0-36.0); Mean Corpuscular Volume 85.2 fL (80.0-100.0); Mean Platelet Volume 9.2 fL (9.4-12.4); Nucleated RBC # (auto) 0.02 K/uL (0.00-0.12); Nucleated RBC % (auto) 0.8 %; Platelet Count 32 K/uL (130-400); RDW Coefficient of Variation 15.4 % (11.5-14.5); RDW Standard Deviation 47.7 fL (36.4-46.3); White Blood Count 2.46 K/ul (4.8-10.8)
[2024-06-06 04:49] LABS: Acanthocytes 2+; Basophils # (auto) 0.01 K/uL (0.00-0.20); Basophils % (auto) 0.4 %; Eosinophils # (auto) 0.01 K/uL (0.00-0.50); Eosinophils % (auto) 0.4 %; Immature Granulocytes # (auto) 0.22 K/uL (0.01-0.20); Immature Granulocytes % (auto) 8.9 %; Lymphocytes # (auto) 0.38 K/uL (1.20-3.40); Lymphocytes % (auto) 15.4 %; Monocytes # (auto) 0.25 K/uL (0.11-0.59); Monocytes % (auto) 10.2 %; Neutrophils # (auto) 1.59 K/uL (1.40-6.50); Neutrophils % (auto) 64.7 %
[2024-06-06 05:37] LABS: Alanine Aminotransferase 5 U/L (7-52); Albumin Globulin Ratio 1.2 (0.9-2); Albumin Level 2.6 gm/dl (3.4-5.0); Alkaline Phosphatase 1556 U/L (34-104); Anion Gap 10 (3-11); Aspartate Aminotransferase 11 U/L (13-39); BUN Creatinine Ratio 23.1 (10-20); Bilirubin Direct 0.3 mg/dl (0-0.2); Bilirubin,Total 0.9 mg/dl (0.2-1.0); Blood Urea Nitrogen 27 mg/dl (6-23); Calcium 7.9 mg/dl (8.6-10.3); Carbon Dioxide 19 mmol/L (21-32); Chloride 115 mmol/L (98-107); Creatinine Clr Calc Pharmacy 45.7 ml/min; Est GFR (African American) 75.9 ml/min; Est GFR (Non-African American) 65.5 ml/min; Globulin 2.2 gm/dl (2.5-4.0); Glucose 74 mg/dl (70-99(Fasting)); Iron 80 mcg/dl (35-175); Magnesium 2.1 mg/dl (1.7-2.4); Potassium 3.5 mmol/L (3.5-5.1); Sodium 144 mmol/L (136-145); Total Protein 4.8 gm/dl (6.0-8.3); Unsaturated Iron Binding Cap < 55 mcg/dl (155-355)
[2024-06-06] MEDS ORDERED: POTASSIUM PHOS 3 MMOL/1 ML INFUSION IV STA (06:44)
[2024-06-06 06:46] LABS: Folate (Folic Acid),Ser orPlas 3.87 ng/ml (>5.38)
--- NOTE | 2024-06-06 06:59 | Critical Care Progress Note ---
Date of Service June 06, 2024 Assessment & Plan (1) Septic shock: Plan: Reason Critically Ill: 63-year-old male with history of metastatic prostate cancer to bone with history of bilateral nephrostomy tubes, history of thrombocytopenia and anemia, hypocalcemia syndrome with bone metastases, chronic cancer related pain, type 2 diabetes who presented to the emergency department. Patient is currently being treated through a palliative care service, no active hospice services. PLAN: Neuro: Chronic malignancy related pain: Not opiate andre -Patient previously on 15 mg morphine every 4 hours immediate release as needed -Increase to 30 mg as this was recently done by his palliative care service Resp: DO NOT INTUBATE in event of respiratory insufficiency CV: Off vasoactive medication Fluids/Renal: ID: Gram-negative bacilli from urine -Continue cefepime and vancomycin, await sensitivities GI/Nutrition: Patient able to eat or drink for comfort Heme: Pancytopenia -Received 1 unit packed red blood cells yesterday -Down trended H&H however I believe there was going to be a delusional component, no obvious blood loss Endocrine: ICU hyperglycemia protocol Vascular access: Peripheral IVs, patient does not want advanced access Code Status: DNR DNI, DNI in event of respiratory insufficiency, okay with vasoactive's via peripheral route Disposition: ICU care needs have resolved, stable for downgrade. Patient and agree with minimizing invasive therapeutics and diagnostics. (2) Thrombocytopenia: (3) Anemia: (4) Lactic acid acidosis: (5) High anion gap metabolic acidosis: Admission and Anticipated Discharge Date Admission Date: June 05, 2024 Subjective No overnight events has been off vasoactive medications for multiple hours Results & Data Results & Data Vital Signs (Past 12 Hours) Vital Signs Temp Pulse Resp BP Pulse Ox O2 Del Method 06/06/24 06:00 93 H 13 128/69 98 Room Air 06/06/24 05:01 125/73 06/06/24 05:00 89 19 125/73 97 Room Air 06/06/24 04:18 94 H 17 137/70 100 Room Air 06/06/24 04:00 37.1 C 06/06/24 03:02 88 14 149/68 H 96 Room Air 06/06/24 02:00 92 H 14 122/59 L 100 Room Air 06/06/24 01:00 89 16 120/66 100 Room Air 06/06/24 00:00 36.6 C 84 16 118/73 100 Room Air 06/06/24 00:00 105 H 06/05/24 23:01 94 H 15 103/60 100 Room Air 06/05/24 22:06 107 H 19 96/54 L 95 Room Air 06/05/24 21:06 36.5 C 108 H 21 103/83 100 06/05/24 21:03 36.7 C 100 H 22 103/82 95 06/05/24 20:03 95 H 15 109/71 95 06/05/24 19:03 96 H 13 122/67 95 06/05/24 19:00 99 H 06/05/24 19:00 36.5 C 100 H 14 122/62 100 Critical Care Results & Data Vital Signs (Past 12 Hours) Vital Signs Temp Pulse Resp BP Pulse Ox O2 Del Method 06/06/24 06:00 93 H 13 128/69 98 Room Air 06/06/24 05:01 125/73 06/06/24 05:00 89 19 125/73 97 Room Air 06/06/24 04:18 94 H 17 137/70 100 Room Air 06/06/24 04:00 37.1 C 06/06/24 03:02 88 14 149/68 H 96 Room Air 06/06/24 02:00 92 H 14 122/59 L 100 Room Air 06/06/24 01:00 89 16 120/66 100 Room Air 06/06/24 00:00 36.6 C 84 16 118/73 100 Room Air 06/06/24 00:00 105 H 06/05/24 23:01 94 H 15 103/60 100 Room Air 06/05/24 22:06 107 H 19 96/54 L 95 Room Air 06/05/24 21:06 36.5 C 108 H 21 103/83 100 06/05/24 21:03 36.7 C 100 H 22 103/82 95 06/05/24 20:03 95 H 15 109/71 95 06/05/24 19:03 96 H 13 122/67 95 06/05/24 19:00 99 H 06/05/24 19:00 36.5 C 100 H 14 122/62 100 Lab & Micro Results (Past 24 Hours) RBC 2.50 M/uL (4.70-6.10) L 06/06/24 WBC 2.46 K/ul (4.8-10.8) L 06/06/24 Hgb 7.0 g/dl (14.0-18.0) L 06/06/24 Hct 21.3 % (42.0-52.0) L 06/06/24 MCV 85.2 fL (80.0-100.0) 06/06/24 MCH 28.0 pg (25.0-34.0) 06/06/24 MCHC 32.9 g/dL (32.0-36.0) 06/06/24 RDW Standard Deviation 47.7 fL (36.4-46.3) H 06/06/24 RDW Coefficient of Variation 15.4 % (11.5-14.5) H 06/06/24 Plt Count 32 K/uL (130-400) L 06/06/24 MPV 9.2 fL (9.4-12.4) L 06/06/24 Nucleated Red Blood Cells % (auto) 0.8 % 06/06 Nucleated RBC Absolute Count (auto) 0.02 K/uL (0.00-0.12) 0 06/06/24 Neutrophils (%) (Auto) 64.7 % 06/06/24 Lymphocytes (%) (Auto) 15.4 % 06/06/24 Monocytes # (Auto) 0.25 K/uL (0.11-0.59) 06/06/24 Eosinophils # (Auto) 0.01 K/uL (0.00-0.50) 06/06/24 Immature Granulocyte % (Auto) 8.9 % 06/06/24 Neutrophils # (Auto) 1.59 K/uL (1.40-6.50) 06/06/24 Lymphocytes # (Auto) 0.38 K/uL (1.20-3.40) L 06/06/24 Monocytes # (Auto) 0.25 K/uL (0.11-0.59) 06/06/24 Eosinophils # (Auto) 0.01 K/uL (0.00-0.50) 06/06/24 Basophils # (Auto) 0.01 K/uL (0.00-0.20) 06/06/24 Immature Granulocyte # (Auto) 0.22 K/uL (0.01-0.20) H 06/06 Acanthocytes 2+ 06/06/24 Na 144 mmol/L (136-145) 06/06/24 K 3.5 mmol/L (3.5-5.1) 06/06/24 Cl 115 mmol/L (98-107) H 06/06/24 CO2 19 mmol/L (21-32) L 06/06/24 Anion Gap 10 (3-11) 06/06/24 BUN 27 mg/dl (6-23) H 06/06/24 Creatinine 1.17 mg/dl (0.6-1.4) 06/06/24 Estimated GFR ( Amer) 75.9 ml/min 06/06/24 Estimated GFR (Non-Af Amer) 65.5 ml/min 06/06/24 BUN/Creatinine Ratio 23.1 (10-20) H 06/06/24 Glu 74 mg/dl (70-99(Fasting)) 06/06/24 Ca 7.9 mg/dl (8.6-10.3) L 06/06/24 Phosphorus Level 3.0 mg/dl (2.5-4.9) 06/06/24 Total Bilirubin 0.9 mg/dl (0.2-1.0) 06/06/24 Direct Bilirubin 0.3 mg/dl (0-0.2) H 06/06/24 AST 11 U/L (13-39) L 06/06/24 ALT 5 U/L (7-52) L 06/06/24 Alkaline Phosphatase 1556 U/L (34-104) H 06/06/24 TP 4.8 gm/dl (6.0-8.3) L 06/06/24 Albumin 2.6 gm/dl (3.4-5.0) L 06/06/24 Globulin 2.2 gm/dl (2.5-4.0) L 06/06/24 Albumin/Globulin Ratio 1.2 (0.9-2) 06/06/24 Mg 2.1 mg/dl (1.7-2.4) 06/06/24 03:48 Calcium Level 7.9 mg/dl (8.6-10.3) L 06/06/24 03:48 Diagnostic Findings (Past 24 Hours) Chest X-Ray 06/05/24 11:37 XR chest 1V portable HISTORY: Sepsis COMPARISON: Chest 05/10/2024. FINDINGS: No pneumothorax. No pleural effusions. The heart is normal in size. No focal lung consolidations to suggest a pneumonia. No evidence for pulmonary edema. 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 IMPRESSION: 1. No acute process within the chest. 2. 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 ACT 112: Negative or not required by law. Electronically signed by: Ángel Linder M.D. 06/05/2024 12:35 PM Abdomen/Pelvis CT 06/05/24 13:[address] WITHOUT CONTRAST CT DOSE: 468.93 mGy.cm HISTORY: b/l nephrostomy tubes TECHNIQUE: Multiaxial CT images of the abdomen and pelvis were performed without contrast. A dose lowering technique was utilized adhering to the principles of ALARA. COMPARISON STUDY: Abdomen and pelvis CT 03/29/2024. FINDINGS: Small to moderate bilateral pleural effusions are noted. The heart remains mildly enlarged. Mild interlobular septal thickening at the lung bases suggestive of congestive change. Subtle nodularity along the major fissures is noted. No pneumoperitoneum. No pneumatosis. Extensive osteoblastic metastatic disease has slightly progressed. Moderate body wall edema. Trace pericardial effusion. Diffuse mesenteric edema. Suboptimal evaluation of the abdomen and pelvis due to the lack of contrast and lack of intraperitoneal fat. The unenhanced liver, adrenal glands, and pancreas unremarkable. The gallbladder is distended. No gallbladder wall thickening. The spleen is top normal in size. Bilateral percutaneous nephrostomy tubes appear in good position. No hydronephrosis. Stable bilateral renal hypodense lesions suggestive of cysts. Mild fullness within the right ureter. Mild bladder wall thickening. Moderate fecal retention. Suboptimal evaluation for bowel pathology due to the lack of intravenous and oral contrast. However, there is no definite bowel wall thickening or obstruction. Left perinephric and left common iliac lymphadenopathy again noted. This is similar to the prior study. IMPRESSION: 1. Bilateral nephrostomy tubes are in good position. No hydronephrosis. 2. Interval development of small to moderate bilateral pleural effusions and a small pericardial effusion. Interlobular septal thickening at the lung bases may represent mild congestive change. 3. Extensive osteoblastic metastatic disease. This appears to have slightly progressed. 4. Body wall edema and mesenteric edema suggestive of anasarca. 5. Bladder wall thickening. 6. Moderate fecal retention. 7. No definite bowel wall thickening or obstruction. 8. Distended gallbladder. No gallbladder wall thickening. 9. Subtle nodularity along the major fissures which is partially imaged on this study. 10. Left perinephric and left iliac lymphadenopathy persists. ACT 112: Negative or not required by law. Electronically signed by: Ángel Linder M.D. 06/05/2024 3:10 PM I & O Totals 24 Hours 06/04/24 06/05/24 06/06/24 06:59 06:59 06:59 Intake Total 3633.504 / 3633.504 Output Total 440 / 440 Balance 3193.504 / 3193.504 Cumulative 06/05/24 11:22 thru 06/06/24 06:00 Intake Total 3633.504 Output Total 440 Balance 3193.504 RT Ventilator Mngmt (Last Documented) Ventilator Ordered Settings Respiratory Rate 13 06/06/24 0 6:00 Ventilator - PT Measurements Respiratory Rate 13 Coding Level of Care Code 00070 SUB INP/OBS CARE 2/35MIN Diagnoses Septic shock A41.9; R65.21 Thrombocytopenia D69.6 Anemia D64.9 Anemia type: unspecified type Lactic acid acidosis E87.20 High anion gap metabolic acidosis E87.29 (3) Anemia Anemia type: unspecified type Qualified Code(s): D64.9 - Anemia, unspecified
[2024-06-06] MEDS: POTASSIUM PHOSPHATE 21 MMOL in SODIUM CHLORIDE 0.9% 500 ML IV ONE (07:52)
[2024-06-06] MEDS: CYANOCOBALAMIN (B-12) 500 MCG TABLET PO SCH (07:53)
[2024-06-06] MEDS: CALCITRIOL 0.25 MCG CAPSULE PO SCH (07:53)
[2024-06-06] MEDS: FERROUS SULFATE 325 MG TAB PO SCH (07:54)
[2024-06-06] MEDS: METOPROLOL TARTRATE 25 MG TAB PO SCH (07:55)
[2024-06-06] MEDS ORDERED: SODIUM CHLORIDE 0.9% 250 ML IV PRN (09:38)
--- NOTE | 2024-06-06 10:30 | Pharmacy Report ---
Pharmacy PK ABX Note - Date of Service June 06, 2024 - Assessment and Plan Assessment 63 year old M receiving vancomycin and cefepime for empiric treatment of septic shock, suspected urinary source. Urine and blood cultures pending. Renal function stable. Day #2 of antimicrobial therapy. Plan Vancomycin * Loading dose: 1000 mg IV x 1 * Maintenance dose: 1000 mg IV every 24 hours * Regimen is predicted to achieve target AUC/JEFF of 400-600 mg/L.hr * Will obtain a level in ~ 48h or sooner if clinically indicated Pharmacy will continue to follow and will adjust dose/frequency as necessary. Thank you. Pharmacy has transitioned to AUC monitoring for vancomycin. AUC/JEFF is the preferred PK/PD target and is associated with decreased risk of nephrotoxicity compared to traditional trough targets.
--- NOTE | 2024-06-06 11:30 | Hospitalist Progress Note ---
Date of Service June 06, 2024 Assessment & Plan (1) Septic shock: (2) Complicated UTI (urinary tract infection): (3) High anion gap metabolic acidosis: Plan: Septic shock Complicated urinary tract infection Acute metabolic encephalopathy Lactic acidosis S/P nephrostomy tubes Anion gap metabolic acidosis --CT ABD:Bilateral nephrostomy tubes are in good position. No hydronephrosis. Interval development of small to moderate bilateral pleural effusions and a small pericardial effusion. Interlobular septal thickening at the lung bases may represent mild congestive change. Extensive osteoblastic metastatic disease. Th is appears to have slightly progressed. Body wall edema and mesenteric edema suggestive of anasarca. Bladder wall thickening. Moderate fecal retention. No definite bowel wall thickening or obstruction. Distended gallbladder. No gallbladder wall thickening. Subtle nodularity along the major fissures which is partially imaged on this study. Left perinephric and left iliac lymphadenopathy persists. --Elevated lactate, procalcitonin levels --Blood culture NGTD --multiple urine Cx pending, one growing gram neg bacilli --Empirically started on broad-spectrum antibiotics Vanco, cefepime, continue Urology consulted ICU was consulted, required pressors, has since been weaned off and downgraded --Continue IV fluids, monitor closely for volume overload Pancytopenia Secondary to metastatic disease Monitor CBC Typed and screened for possible blood transfusion if needed Chronic troponin elevation Troponin levels better when compared to prior admissions Patient denies any chest pain Metastatic prostate cancer S/P nephrostomy tubes Poor prognosis Currently follows with palliative care and [facility] as outpatient Continue pain control with bowel regimen Pt desires home with hospice, however, states "would like infection completely treated before going home" DM Type II: Last HbA1c 7.1 Continue insulin per protocol Monitor blood glucose levels Other chronic conditions Chronic systolic heart failure Peripheral vascular disease s/p left carotid artery stent placement Hypertension Hyperlipidemia CKD stage III CVA Tobacco use disorder per record Hold antihypertensives given septic shock Continue other home medications as able Monitor volume status closely while on IV fluids Diet: DMII DVT Px:SCDs: Anemia, thrombocytopenia, h/o gross hematuria Dispo: Eventual home with hospice Admission and Anticipated Discharge Date Admission Date: June 05, 2024 Subjective pt was seen multiple times during the day in the ICU. Initially in the AM, was laying in bed, drowsy. But resting comfortably. Later, called to bedside as family wanted to discuss hospice options. Appeared pt wanted to go home today with hospice, however, on further discussion pt stated he would like "his infection fully treated before going home so he doesn't have to come back here" Review of Systems Review of Systems: All systems reviewed & are unremarkable except as noted in Subjective Physical Exam Physical Exam: General: Alert, oriented. Cachectic HEENT: NC/AT CV: RRR Resp: Breath sounds clear bilaterally, no increased effort of breathing. Abdomen: soft, nontender, nondistended Extremities: No edema in lower extremities bilaterally. Results & Data Results & Data Vital Signs (Past 12 Hours) Vital Signs Temp Pulse Resp BP Pulse Ox O2 Del Method 06/06/24 09:03 82 3 L 98 06/06/24 09:00 99/63 L 06/06/24 08:57 107 H 5 L 98 06/06/24 08:06 91 H 13 100 Room Air 06/06/24 07:39 36.5 C 06/06/24 07:00 95 H 18 100 06/06/24 07:00 129/72 06/06/24 07:00 129/72 06/06/24 07:00 129/72 06/06/24 06:00 93 H 13 128/69 98 Room Air 06/06/24 05:01 125/73 06/06/24 05:00 89 19 125/73 97 Room Air 06/06/24 04:18 94 H 17 137/70 100 Room Air 06/06/24 04:00 37.1 C 06/06/24 03:02 88 14 149/68 H 96 Room Air 06/06/24 02:00 92 H 14 122/59 L 100 Room Air 06/06/24 01:00 89 16 120/66 100 Room Air 06/06/24 00:00 36.6 C 84 16 118/73 100 Room Air 06/06/24 00:00 105 H
--- NOTE | 2024-06-06 15:06 | Urology Progress Note ---
Date of Service June 06, 2024 Assessment & Plan (1) Complicated UTI (urinary tract infection): (2) Prostate cancer metastatic to bone: Plan 63-year-old male with history of metastatic prostate cancer and bilateral nephrostomy tubes admitted with sepsis, complicated UTI. -Afebrile with stable vitals. Remains in ICU. Off pressors. -Labs reviewed-WBC 2.46, hemoglobin 7.0, creatinine 1.17 -Urine prelim gram-negative bacilli, blood cultures pending. -Bilateral nephrostomy tubes intact and draining yellow urine. Continue to monitor. -CT A/P reviewed - Bilateral nephrostomy tubes are in good position. No hydronephrosis. -No acute intervention warranted. -Continue antibiotics and tailor per culture sensitivities. -Continue supportive care. -Urology will sign-off. Please call with any further questions, concerns, or changes in patient status. Admission and Anticipated Discharge Date Admission Date: June 05, 2024 Subjective Patient seen at bedside today. Awake, resting in bed on arrival. No acute distress. Family at bedside. Bilateral nephrostomy tubes draining yellow urine. Review of Systems Constitutional: as per Subjective / HPI Genitourinary: + as per Subjective / HPI Physical Exam Constitutional: + ill appearing, + thin and + frail appe aring; no acute distress Respiratory: no respiratory distress and no labored breathing Neurologic: awake Psychiatric: Orientation: alert, oriented to person and cooperative Genitourinary: Bilateral nephrostomy tubes draining yellow urine Results & Data Vital Signs (Past 12 Hours) Vital Signs Temp Pulse Resp BP Pulse Ox O2 Del Method 06/06/24 12:00 121/77 06/06/24 12:00 121/77 06/06/24 12:00 121/77 06/06/24 12:00 109 H 14 100 06/06/24 11:00 90 15 100 06/06/24 11:00 135/80 06/06/24 10:03 76 5 L 98 06/06/24 10:00 115/63 06/06/24 10:00 115/63 06/06/24 09:54 105 H 10 L 97 06/06/24 09:03 82 3 L 98 06/06/24 09:00 99/63 L 06/06/24 08:57 107 H 5 L 98 06/06/24 08:06 91 H 13 100 Room Air 06/06/24 07:39 36.5 C 06/06/24 07:00 95 H 18 100 06/06/24 07:00 129/72 06/06/24 07:00 129/72 06/06/24 07:00 129/72 06/06/24 06:00 93 H 13 128/69 98 Room Air 06/06/24 05:01 125/73 06/06/24 05:00 89 19 125/73 97 Room Air 06/06/24 04:18 94 H 17 137/70 100 Room Air 06/06/24 04:00 37.1 C PG Care Time/CCT Total # of Minutes Spent Total Time Spent with Patient: Total time spent is greater than 50% in coordination of care (as documented) at patient's floor/unit and/or counseling patient: Coding Level of Care Code 93688 SUB INP/OBS CARE 235MIN Diagnoses Complicated UTI (urinary tract infection) N39.0 Prostate cancer metastatic to bone C61; C79.51
[2024-06-06] MEDS: KETOROLAC TROMETHAMINE 15 MG/ML VIAL IV PRN (20:59)
[2024-06-06] MEDS: ACETAMINOPHEN 325 MG TAB PO PRN (20:59)
--- NOTE | 2024-06-06 21:05 | Communication Note ---
Date of Service: June 06, 2024
[2024-06-07 07:18] LABS: Hematocrit (blood only) 23.7 % (42.0-52.0); Hemoglobin 7.7 g/dl (14.0-18.0); Mean Corpuscular Hemoglobin 27.7 pg (25.0-34.0); Mean Corpuscular Hgb Conc 32.5 g/dL (32.0-36.0); Mean Corpuscular Volume 85.3 fL (80.0-100.0); Nucleated RBC # (auto) 0.02 K/uL (0.00-0.12); Nucleated RBC % (auto) 0.7 %; Platelet Count 26 K/uL (130-400); RDW Coefficient of Variation 15.7 % (11.5-14.5); Red Blood Count 2.78 M/uL (4.70-6.10); White Blood Count 2.93 K/ul (4.8-10.8)
[2024-06-07 07:30] LABS: BUN Creatinine Ratio 22.1 (10-20); Calcium 7.6 mg/dl (8.6-10.3); Creatinine Clr Calc Pharmacy 44.7 ml/min; Est GFR (African American) 79.2 ml/min; Est GFR (Non-African American) 68.3 ml/min; Potassium 4.1 mmol/L (3.5-5.1)
[2024-06-07 07:47] LABS: Basophils # (auto) 0.01 K/uL (0.00-0.20); Basophils % (auto) 0.3 %; Eosinophils # (auto) 0.01 K/uL (0.00-0.50); Eosinophils % (auto) 0.3 %; Immature Granulocytes # (auto) 0.24 K/uL (0.01-0.20); Immature Granulocytes % (auto) 8.2 %; Lymphocytes # (auto) 0.35 K/uL (1.20-3.40); Lymphocytes % (auto) 11.9 %; Monocytes # (auto) 0.25 K/uL (0.11-0.59); Monocytes % (auto) 8.5 %; Neutrophils # (auto) 2.07 K/uL (1.40-6.50); Neutrophils % (auto) 70.8 %; RBC Morphology Unremarkable
[2024-06-07 07:51] LABS: Albumin Globulin Ratio 1.2 (0.9-2); Albumin Level 2.6 gm/dl (3.4-5.0); Bilirubin Direct 0.2 mg/dl (0-0.2); Bilirubin,Total 0.9 mg/dl (0.2-1.0); Globulin 2.1 gm/dl (2.5-4.0); Phosphorus 3.2 mg/dl (2.5-4.9); Total Protein 4.7 gm/dl (6.0-8.3)
--- NOTE | 2024-06-07 14:25 | Hospitalist Progress Note ---
Date of Service June 07, 2024 Assessment & Plan (1) Septic shock: (2) Complicated UTI (urinary tract infection): (3) High anion gap metabolic acidosis: Plan: Septic shock Complicated urinary tract infection Acute metabolic encephalopathy Lactic acidosis S/P nephrostomy tubes Anion gap metabolic acidosis --CT ABD:Bilateral nephrostomy tubes are in good position. No hydronephrosis. Interval development of small to moderate bilateral pleural effusions and a small pericardial effusion. Interlobular septal thickening at the lung bases may represent mild congestive change. Extensive osteoblastic metastatic disease. Th is appears to have slightly progressed. Body wall edema and mesenteric edema suggestive of anasarca. Bladder wall thickening. Moderate fecal retention. No definite bowel wall thickening or obstruction. Distended gallbladder. No gallbladder wall thickening. Subtle nodularity along the major fissures which is partially imaged on this study. Left perinephric and left iliac lymphadenopathy persists. --Elevated lactate, procalcitonin levels --Blood culture NGTD --multiple urine Cx pending, one growing gram neg bacilli --Empirically started on broad-spectrum antibiotics Vanco, cefepime, continue with just Cefepime Urology consulted ICU was consulted, required pressors, has since been weaned off and downgraded --Continue IV fluids, monitor closely for volume overload Pancytopenia Secondary to metastatic disease Monitor CBC Typed and screened for possible blood transfusion if needed Chronic troponin elevation Troponin levels better when compared to prior admissions Patient denies any chest pain Metastatic prostate cancer S/P nephrostomy tubes Poor prognosis Currently follows with palliative care and [facility] as outpatient Continue pain control with bowel regimen Pt desires home with hospice, however, states "would like infection completely treated before going home" DM Type II: Last HbA1c 7.1 Continue insulin per protocol Monitor blood glucose levels Other chronic conditions Chronic systolic heart failure Peripheral vascular disease s/p left carotid artery stent placement Hypertension Hyperlipidemia CKD stage III CVA Tobacco use disorder per record Hold antihypertensives given septic shock Continue other home medications as able Monitor volume status closely while on IV fluids Diet: DMII DVT Px:SCDs: Anemia, thrombocytopenia, h/o gross hematuria Dispo: Eventual home with hospice Admission and Anticipated Discharge Date Admission Date: June 05, 2024 Subjective pt was seen with at bedside. Tearful at times, noting difficult decision of wanting to go home but not wanting to be a burden on his family. Review of Systems Review of Systems: All systems reviewed & are unremarkable except as noted in Subjective Physical Exam Physical Exam: General: Alert, oriented. Cachectic HEENT: NC/AT CV: RRR Resp: Breath sounds clear bilaterally, no increased effort of breathing. Abdomen: soft, nontender, nondistended Extremities: No edema in lower extremities bilaterally. Results & Data Results & Data Vital Signs (Past 12 Hours) Vital Signs Temp Pulse Pulse Resp BP Pulse Ox O2 Del Method 06/07/24 12:09 36.4 C L 80 16 108/68 97 Room Air 06/07/24 08:13 36.4 C L 68 20 124/78 95 Room Air 06/07/24 07:39 78
[2024-06-08 06:24] LABS: Hematocrit (blood only) 22.6 % (42.0-52.0); Hemoglobin 7.2 g/dl (14.0-18.0); Mean Corpuscular Hemoglobin 27.3 pg (25.0-34.0); Mean Corpuscular Hgb Conc 31.9 g/dL (32.0-36.0); Mean Corpuscular Volume 85.6 fL (80.0-100.0); Nucleated RBC # (auto) 0.03 K/uL (0.00-0.12); Nucleated RBC % (auto) 0.9 %; Platelet Count 21 K/uL (130-400); RDW Coefficient of Variation 15.9 % (11.5-14.5); RDW Standard Deviation 49.6 fL (36.4-46.3); Red Blood Count 2.64 M/uL (4.70-6.10); White Blood Count 3.16 K/ul (4.8-10.8)
[2024-06-08 06:43] LABS: Basophils # (auto) 0.01 K/uL (0.00-0.20); Basophils % (auto) 0.3 %; Eosinophils # (auto) 0.02 K/uL (0.00-0.50); Eosinophils % (auto) 0.6 %; Immature Granulocytes # (auto) 0.21 K/uL (0.01-0.20); Immature Granulocytes % (auto) 6.6 %; Lymphocytes # (auto) 0.45 K/uL (1.20-3.40); Lymphocytes % (auto) 14.2 %; Monocytes % (auto) 9.5 %; Neutrophils # (auto) 2.17 K/uL (1.40-6.50); Neutrophils % (auto) 68.8 %; RBC Morphology Unremarkable
[2024-06-08 09:40] LABS: Albumin Level 2.5 gm/dl (3.4-5.0); Bilirubin Direct 0.2 mg/dl (0-0.2); Bilirubin,Total 0.8 mg/dl (0.2-1.0); Magnesium 2.1 mg/dl (1.7-2.4); Phosphorus 2.9 mg/dl (2.5-4.9); Total Protein 4.6 gm/dl (6.0-8.3)
[2024-06-08] MEDS: ERGOCALCIFEROL 1250 MCG (50,000 UNITS) CAP PO SCH (10:24)
--- NOTE | 2024-06-08 12:58 | Hospitalist Progress Note ---
Date of Service June 08, 2024 Assessment & Plan (1) Septic shock: (2) Complicated UTI (urinary tract infection): (3) High anion gap metabolic acidosis: Plan: Septic shock Complicated urinary tract infection Acute metabolic encephalopathy Lactic acidosis S/P nephrostomy tubes Anion gap metabolic acidosis --CT ABD:Bilateral nephrostomy tubes are in good position. No hydronephrosis. Interval development of small to moderate bilateral pleural effusions and a small pericardial effusion. Interlobular septal thickening at the lung bases may represent mild congestive change. Extensive osteoblastic metastatic disease. Th is appears to have slightly progressed. Body wall edema and mesenteric edema suggestive of anasarca. Bladder wall thickening. Moderate fecal retention. No definite bowel wall thickening or obstruction. Distended gallbladder. No gallbladder wall thickening. Subtle nodularity along the major fissures which is partially imaged on this study. Left perinephric and left iliac lymphadenopathy persists. --Elevated lactate, procalcitonin levels --Blood culture NGTD --multiple urine Cx pending, one growing gram neg bacilli --Empirically started on broad-spectrum antibiotics Vanco, cefepime, continue with just Cefepime Urology consulted ICU was consulted, required pressors, has since been weaned off and downgraded --Continue IV fluids, monitor closely for volume overload Pancytopenia Secondary to metastatic disease Monitor CBC Typed and screened for possible blood transfusion if needed Chronic troponin elevation Troponin levels better when compared to prior admissions Patient denies any chest pain Metastatic prostate cancer S/P nephrostomy tubes Poor prognosis Currently follows with palliative care and [facility] as outpatient Continue pain control with bowel regimen Pt desires home with hospice, however, states "would like infection completely treated before going home" DM Type II: Last HbA1c 7.1 Continue insulin per protocol Monitor blood glucose levels Other chronic conditions Chronic systolic heart failure Peripheral vascular disease s/p left carotid artery stent placement Hypertension Hyperlipidemia CKD stage III CVA Tobacco use disorder per record Hold antihypertensives given septic shock Continue other home medications as able Monitor volume status closely while on IV fluids Diet: DMII DVT Px:SCDs: Anemia, thrombocytopenia, h/o gross hematuria Dispo: Eventual home with hospice Admission and Anticipated Discharge Date Admission Date: June 05, 2024 Subjective pt was seen with at bedside. No acute concerns today. Review of Systems Review of Systems: All systems reviewed & are unremarkable except as noted in Subjective Physical Exam Physical Exam: General: Alert, oriented. Cachectic HEENT: NC/AT CV: RRR Resp: Breath sounds clear bilaterally, no increased effort of breathing. Abdomen: soft, nontender, nondistended Extremities: No edema in lower extremities bilaterally. Results & Data Results & Data Vital Signs (Past 12 Hours) Vital Signs Temp Pulse Pulse Resp BP Pulse Ox O2 Del Method 06/08/24 11:37 36.3 C L 89 17 108/71 90 Room Air 06/08/24 08:27 36.7 C 71 17 128/75 97 Room Air 06/08/24 07:09 75 06/08/24 04:00 36.7 C 66 18 123/71 93 Room Air
[2024-06-09 06:26] LABS: BUN Creatinine Ratio 31.6 (10-20); Calcium 7.9 mg/dl (8.6-10.3); Est GFR (African American) 78.3 ml/min; Est GFR (Non-African American) 67.6 ml/min; Potassium 3.8 mmol/L (3.5-5.1)
[2024-06-09 06:30] LABS: Albumin Globulin Ratio 1.2 (0.9-2); Albumin Level 2.6 gm/dl (3.4-5.0); Bilirubin,Total 0.7 mg/dl (0.2-1.0); Globulin 2.1 gm/dl (2.5-4.0); Magnesium 2.2 mg/dl (1.7-2.4); Total Protein 4.7 gm/dl (6.0-8.3)
[2024-06-09 06:32] LABS: Hematocrit (blood only) 21.6 % (42.0-52.0); Hemoglobin 7.2 g/dl (14.0-18.0); Mean Corpuscular Hemoglobin 28.1 pg (25.0-34.0); Mean Corpuscular Hgb Conc 33.3 g/dL (32.0-36.0); Mean Corpuscular Volume 84.4 fL (80.0-100.0); Mean Platelet Volume 8.6 fL (9.4-12.4); Platelet Count 22 K/uL (130-400); RDW Coefficient of Variation 14.7 % (11.5-14.5); RDW Standard Deviation 45.8 fL (36.4-46.3); Red Blood Count 2.56 M/uL (4.70-6.10); White Blood Count 3.82 K/ul (4.8-10.8)
[2024-06-09 06:53] LABS: Basophils # (auto) 0.01 K/uL (0.00-0.20); Basophils % (auto) 0.3 %; Eosinophils # (auto) 0.02 K/uL (0.00-0.50); Eosinophils % (auto) 0.5 %; Immature Granulocytes # (auto) 0.27 K/uL (0.01-0.20); Immature Granulocytes % (auto) 7.1 %; Lymphocytes # (auto) 0.56 K/uL (1.20-3.40); Lymphocytes % (auto) 14.7 %; Monocytes % (auto) 7.9 %; Neutrophils # (auto) 2.66 K/uL (1.40-6.50); Neutrophils % (auto) 69.5 %; Poikilocytosis Present; Polychromasia 1+; Tear Drop Cells 1+
--- NOTE | 2024-06-09 13:33 | Discharge Summary ---
Discharge Summary Date of Service June 09, 2024 Principal Dx & Hospital Course #1 = Principal Diagnosis (1) Septic shock: (2) Complicated UTI (urinary tract infection): (3) High anion gap metabolic acidosis: Septic shock Complicated urinary tract infection Acute metabolic encephalopathy Lactic acidosis S/P nephrostomy tubes Anion gap metabolic acidosis --CT ABD:Bilateral nephrostomy tubes are in good position. No hydronephrosis. Interval development of small to moderate bilateral pleural effusions and a small pericardial effusion. Interlobular septal thickening at the lung bases may represent mild congestive change. Extensive osteoblastic metastatic disease. This appears to have slightly progressed. Body wall edema and mesenteric edema suggestive of anasarca. Bladder wall thickening. Moderate fecal retention. No definite bowel wall thickening or obstruction. Distended gallbladder. No gallbladder wall thickening. Subtle nodularity along the major fissures which is partially imaged on this study. Left perinephric and left iliac lymphadenopathy persists. --Elevated lactate, procalcitonin levels --Blood culture NGTD --multiple urine Cx grew pseudomonas and serratia --Empirically started on broad-spectrum antibiotics Vanco, cefepime, continued with just Cefepime and transitioned to po ciprofloxacin on discharge. Urology consulted, noted/stated the following: " Bilateral nephrostomy tubes are in good position. No hydronephrosis. -No acute intervention warranted. -Continue antibiotics and tailor per culture sensitivities. -Continue supportive care." ICU was consulted, required pressors, has since been weaned off and downgraded Pt discharged with home hospice services Pancytopenia Secondary to metastatic disease Pt discharged with home hospice services Chronic troponin elevation Troponin levels better when compared to prior admissions Patient denies any chest pain Pt discharged with home hospice services Metastatic prostate cancer S/P nephrostomy tubes Poor prognosis Currently follows with palliative care and [facility] as outpatient Continue pain control with bowel regimen Pt desires home with hospice, however, states "would like infection completely treated before going home" Pt discharged with home hospice services DM Type II: Last HbA1c 7.1 Continue insulin per protocol Monitor blood glucose levels Pt discharged with home hospice services Other chronic conditions Chronic systolic heart failure Peripheral vascular disease s/p left carotid artery stent placement Hypertension Hyperlipidemia CKD stage III CVA Tobacco use disorder per record Hold antihypertensives given septic shock Continue other home medications as able Monitor volume status closely while on IV fluids Notes For Next Care Provider Pt discharged home with hospice services Oscillates between aggressive treatments and coming off hospice Medication Changes From Visit ciprofloxacin 500mg BID x 2 more days Script to be taken over by hospice: Morphine IR 30mg q4h prn and morphine ER 30mg BID Admission HPI Per Admitting Provider Patient is a 63-year-old male with history of metastatic prostate cancer, peripheral vascular disease, diabetes mellitus, chronic systolic heart failure, hypertension, hyperlipidemia, stage III CKD, S/P nephrostomy tube, CVA, tobacco use disorder, left carotid artery stent placement, thrombocytopenia and other medical problems presents with history of confusion, lethargy which has been gradually worsening for the last 2 days. Most of the history is obtained from patient's at bedside. Patient was also noted to have fever 2 days ago and he complains of chronic lower abdominal pain per family. Patient has been constipated as well. Patient's family noted him to have been hallucinating and believed his urine is darker colored. He is due for nephrostomy tube exchange on July 16 per family. He was noted to be hypotensive while in the ED. His blood pressure transiently improved with IV fluids. Currently he is oriented to person and place during my encounter while in ED. Denies any history of chest pain, dyspnea, dizziness, pedal edema, cough, hemoptysis, headache, nausea, vomiting, hematuria. Given persistent hypertension, patient plan to be started on pressors and admitted to ICU for further care. Patient prefers to be treated for current condition but goal is to keep him comfortable. Patient's family understands and agrees with the plan. Admission Exam Per Admitting Provider General Appearance: Thin, frail, ill-appearing, no apparent distress Head: normocephalic, Atraumatic Eyes: normal inspection, EOMI Neck: supple, Trachea midline Respiratory/Chest: Normal breath sounds, CTA, No accessory muscle use Cardiovascular: S1, S2, No murmur, + tachycardia Abdomen/GI:Soft, mild tender lower quadrant, bowel sounds present, + nephrostomy tubes Extremities/Musculoskeletal:normal inspection, no edema Neurologic/Psych:AAOX2, grossly no focal neurological deficits Skin: normal color, warm Discharge Exam General: Alert, oriented. Cachectic HEENT: NC/AT CV: RRR Resp: Breath sounds clear bilaterally, no increased effort of breathing. Abdomen: soft, nontender, nondistended Extremities: No edema in lower extremities bilaterally. Updated Medication List Medication Instructions Recorded Confirmed Type acetaminophen 500 mg tablet 1,000 mg PO Q6H PRN Pain 12/06/22 06/05/24 History (Tylenol Extra Strength) linagliptin 5 mg tablet (Tradjenta) 5 mg PO QAM 12/06/22 06/05/24 History potassium phosphate, monobasic 500 500 mg PO BID 01/11/24 06/05/24 History mg soluble tablet (K-Phos Original) magnesium chloride 64 mg 64 mg PO BID #60 tabs 02/22/24 06/05/24 Rx (magnesium chloride) tablet,delayed release (Mag 64) tamsulosin 0.4 mg capsule 0.4 mg PO QAM #30 caps 02/22/24 06/05/24 Rx buspirone 5 mg tablet 5 mg PO TID 03/11/24 06/05/24 History morphine 15 mg immediate release 15 mg PO Q4H PRN pain 03/29/24 06/05/24 History tablet calcitriol 0.25 mcg capsule 0.25 mcg PO DAILY 04/09/24 06/05/24 History cyanocobalamin (vitamin B-12) 1,000 mcg PO DAILY 04/09/24 06/05/24 History 1,000 mcg tablet ergocalciferol (vitamin D2) 1,250 1,250 mcg PO MARIANO 04/09/24 06/05/24 History mcg (50,000 unit) capsule ferrous sulfate 325 mg (65 mg 325 mg PO DAILY 04/09/24 06/05/24 History iron) tablet (FeroSul) sacubitril 24 mg-valsartan 26 mg 1 tab PO BID 05/07/24 06/05/24 History tablet (Entresto) calcium carbonate 500 mg/5 mL (as 500 mg PO BID 06/05/24 06/05/24 History calcium carb 1,250 mg/5 mL) oral suspension metoprolol tartrate 25 mg tablet 12.5 mg PO DAILY 06/05/24 06/05/24 History mirtazapine 15 mg tablet 15 mg PO HS 06/05/24 06/05/24 History morphine 30 mg tablet,extended 30 mg PO AMHS 06/05/24 06/05/24 History release ondansetron 8 mg disintegrating 8 mg PO Q8H PRN Nausea And Vomiting 06/05/24 06/05/24 History tablet prochlorperazine maleate 10 mg 10 mg PO Q6 PRN Nausea And Vomiting 06/05/24 06/05/24 History tablet sennosides 8.6 mg capsule (senna) 17.2 mg PO HS 06/05/24 06/05/24 History ciprofloxacin HCl 500 mg tablet 500 mg PO BID #4 tabs 06/09/24 Rx morphine 15 mg immediate release 30 mg (2 x 15 mg) PO Q4H PRN pain 06/09/24 Rx tablet #12 tabs morphine 30 mg tablet,extended 30 mg PO Q12H #4 tabs 06/09/24 Rx release Hospital Stay Data Consultations 06/05/24 13:30 ED Decision to Admit Stat 06/05/24 13:55 Consult Music Promoter Routine 06/05/24 15:14 Consult Music Promoter Routine Consult Urology Routine Consult Urology Routine Diagnostic Imagining Performed 06/05/24 13:39 CT Abd and Pelvis [CT abd pelvis wo con] Stat Chest X-Ray 06/05/24 11:37 XR chest 1V portable HISTORY: Sepsis COMPARISON: Chest 05/10/2024. FINDINGS: No pneumothorax. No pleural effusions. The heart is normal in size. No focal lung consolidations to suggest a pneumonia. No evidence for pulmonary edema. 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 IMPRESSION: 1. No acute process within the chest. 2. 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 ACT 112: Negative or not required by law. Electronically signed by: Ángel Linder M.D. 06/05/2024 12:35 PM Abdomen/Pelvis CT 06/05/24 13:[address] WITHOUT CONTRAST CT DOSE: 468.93 mGy.cm HISTORY: b/l nephrostomy tubes TECHNIQUE: Multiaxial CT images of the abdomen and pelvis were performed without contrast. A dose lowering technique was utilized adhering to the principles of ALARA. COMPARISON STUDY: Abdomen and pelvis CT 03/29/2024. FINDINGS: Small to moderate bilateral pleural effusions are noted. The heart remains mildly enlarged. Mild interlobular septal thickening at the lung bases suggestive of congestive change. Subtle nodularity along the major fissures is noted. No pneumoperitoneum. No pneumatosis. Extensive osteoblastic metastatic disease has slightly progressed. Moderate body wall edema. Trace pericardial effusion. Diffuse mesenteric edema. Suboptimal evaluation of the abdomen and pelvis due to the lack of contrast and lack of intraperitoneal fat. The unenhanced liver, adrenal glands, and pancreas unremarkable. The gallbladder is distended. No gallbladder wall thickening. The spleen is top normal in size. Bilateral percutaneous nephrostomy tubes appear in good position. No hydronephrosis. Stable bilateral renal hypodense lesions suggestive of cysts. Mild fullness within the right ureter. Mild bladder wall thickening. Moderate fecal retention. Suboptimal evaluation for bowel pathology due to the lack of intravenous and oral contrast. However, there is no definite bowel wall thickening or obstruction. Left perinephric and left common iliac lymphadenopathy again noted. This is similar to the prior study. IMPRESSION: 1. Bilateral nephrostomy tubes are in good position. No hydronephrosis. 2. Interval development of small to moderate bilateral pleural effusions and a small pericardial effusion. Interlobular septal thickening at the lung bases may represent mild congestive change. 3. Extensive osteoblastic metastatic disease. This appears to have slightly progressed. 4. Body wall edema and mesenteric edema suggestive of anasarca. 5. Bladder wall thickening. 6. Moderate fecal retention. 7. No definite bowel wall thickening or obstruction. 8. Distended gallbladder. No gallbladder wall thickening. 9. Subtle nodularity along the major fissures which is partially imaged on this study. 10. Left perinephric and left iliac lymphadenopathy persists. ACT 112: Negative or not required by law. Electronically signed by: Ángel Linder M.D. 06/05/2024 3:10 PM Pending Results Patient Have Any Pending Studies at Discharge: No Discharge Instructions Given to Patient (Per Discharging Provider) Mr. Chaudhari, You are being discharged home with home hospice. Please continue with the antibiotics prescribed for two more days. Please follow up with the hospice provider after discharge for any additional needs. It was a pleasure taking care of you while you were here. Total Time Total Time Spent Total Time Spent (In Minutes): 75
[2024-06-09 15:54] VITALS: BP 120/72; PULSE 88; RESP 18; TEMP 97.7; O2SAT 94
== END 2024-06-09 17:10 | disposition hospice, home (50) | DRG 871 ==
LOC: ED 11:26 → SUATTDRO 13:55 → 1E 13:55 → 2N 06-06 18:04 → 2W 06-06 18:26